=== PATIENT | male | born 1960 | race Caucasian/White ===

== ENCOUNTER 2022-04-24 16:46 | Inpatient (IN) ==
[2022-04-24] MEDS ORDERED: SODIUM CHLORIDE 0.9% 500 ML IV SCH (17:45)
[2022-04-24 17:49] LABS: Basophils % (auto) 1.1 %; Eosinophils % (auto) 2.1 %; Hematocrit (blood only) 45.6 % (40.1-51.0); Hemoglobin 15.3 g/dl (14.0-18.0); Immature Granulocytes # (auto) 0.14 K/uL (0.00-0.02); Immature Granulocytes % (auto) 1.5 %; Lymphocytes # (auto) 2.54 K/uL (1.2-3.4); Lymphocytes % (auto) 27.2 %; Mean Corpuscular Hemoglobin 29.4 pg (25.0-34.0); Mean Corpuscular Hgb Conc 33.6 g/dL (32.0-36.0); Mean Corpuscular Volume 87.5 fL (80.0-100.0); Mean Platelet Volume 9.6 fL (9.4-12.4); Monocytes # (auto) 0.69 K/uL (0.24-0.82); Monocytes % (auto) 7.4 %; Neutrophils # (auto) 5.66 K/uL (1.4-6.5); Neutrophils % (auto) 60.7 %; Platelet Count 280 K/uL (130-400); RDW Coefficient of Variation 12.5 % (11.5-14.5); RDW Standard Deviation 39.9 fL (36.4-46.3); Red Blood Count 5.21 M/uL (4.63-6.08); White Blood Count 9.33 K/ul (4.8-10.8)
--- NOTE | 2022-04-24 17:50 | Emergency Department Note ---
Impression & Plan Confusion, Hyperglycemia due to type 2 diabetes mellitus ED Provider Note Provider: Slim Duran MD DATE OF SERVICE: 04/24/2022 CHIEF COMPLAINT: Weak, high blood sugar HISTORY OF PRESENT ILLNESS: Patient is a 61-year-old gentleman history of type 2 diabetes, hypertension, cardiomyopathy presenting here today with his sister for elevated blood sugars and feeling a bit off. Over the last day or 2 he states his blood sugars been very high and his glucose sensing machine is picking out at high above 400. Patient states has not had fevers and has not fallen but is been unsteady. Sister states that he seemed quite weak and not himself and that she brought him in for evaluation. Patient states been taking his insulin took Levemir this morning and took 2 doses of Humalog 45 units twice this afternoon. He did eat some food. Blood sugar initially on arrival was 365. Patient denies nausea or abdominal pain. Denies significant swelling legs states maybe little swelling in his hands. Denies new numbness or weakness. States with sitting up or trying to walk he feels quite unsteady. Again no falls reported. Patient seen here 5 days ago for some chest discomfort and heartburn with no return of symptoms. REVIEW OF SYSTEMS: A total of 10 review of systems was obtained and negative except as stated above in the HPI. PAST MEDICAL HISTORY: As noted above MEDICATIONS: Reviewed home medication SOCIAL HISTORY: Lives alone and denies alcohol today. PHYSICAL EXAM: GENERAL: alert and oriented in no acute distress on stretcher slightly slow to respond. Head: normocephalic and atraumatic EYES: No discharge or icterus. Mild bilateral conjunctival injection. PERRL, EOMI. NECK: Trachea midline. Supple. ENT: Mucous membranes pink and moist. LUNGS: Airway patent. No retractions. Breath sounds clear with good air entry bilaterally. HEART: Regular rate and rhythm. No chest wall tenderness ABDOMEN: Soft and non-tender, without guarding or rebound. Left mid abdominal subcutaneous glucose sensor in place. SKIN: Acyanotic, warm, dry, without rashes EXTREMITIES: Without swelling, tenderness or deformity NEUROLOGICAL: No focal deficits. No aphasia. No facial droop or slurred speech. Normal strength and tone in the extremities. Sensation to gross touch normal. Able to stand but a bit unsteady on his feet. EK bpm sinus rhythm with premature supraventricular complexes. No PVC. No acute ST segment elevation or depression. QTc 422. CONTINUOUS CARDIAC MONITORING: was ordered and showed a heart rate of 70s-90s bpm in normal sinus rhythm with occasional premature supraventricular complexes Patient's laboratory studies and imaging reviewed. Differential includes Infection, dehydration, metabolic abnormality, hypo/hyperglycemia, electrolyte disturbance, anemia, hypoxia, cardiac sources, intracerebral event, toxicologic, neurologic, as well as other pathologies. IMPRESSION/MEDICAL DECISION MAKING: Patient with a history of cardiac disease as well as diabetes. Blood sugars been quite high. No infectious symptoms or fevers otherwise reported. Feeling a bit unsteady but no significant focal slurred speech or numbness or weakness reported by the patient or his sister. Patient has not fallen. Patient does have difficulty with sitting and standing and becomes fatigued and unsteady even trying to stand next to the bed. Blood sugars in the 300s now but given some IV fluid. Basic labs will be checked. CTs of the head completed although lower suspicion for CVA given his lack of focality. Blood work without significant anemia or leukocytosis. No fevers. No significant renal dysfunction or evidence of liver abnormality is noted. No a bdominal pain and doubt this represents pancreatitis or intra-abdominal pathology. Negative COVID. EKG and troponin complete without significant concerning findings to explain this. Blood glucose is trending down and given this just given IV fluid. Patient is a history of IV drug use in the past. CT and CTAs of the head and neck without significant findings noted. At this point discussed with the patient and his sister at bedside the reassuring findings. Blood sugar is improving and the patient does not appear to be in HHS or DKA. Discussed with the patient the use of any intoxicating substances which he adamantly denies at this time. Patient little more steady on his feet but still according to sister seems off. Given this discussed further observation here overnight versus close monitoring at home with his sister. Shared decision- making they felt more comfortable staying for observation. DIAGNOSIS: Confusion, hyperglycemia due to type 2 diabetes DISPOSITION: Hospitalist will evaluate Patient was agreeable with this plan. Past Med/Surg History Medical History Anxiety Congestive heart failure Depression Diabetes mellitus, type 2 H/O drug abuse Hepatitis C Hypertension Nonischemic cardiomyopathy "prior EF 30% per Epic records. echo 02/2015- EF 54%" Surgical History History of cardiac cath 03/2015 @ [facility], no stents follows with Dr. Monet History of colonoscopy History of tooth extraction History of umbilical hernia repair x2 History of wisdom tooth extraction Family History Mother Family history of diabetes mellitus Father Family history of diabetes mellitus Other No family history of adverse response to anesthesia Social History Smoking Status: Former smoker Second Hand Exposure: Yes ("everyone smokes"); Hx Alcohol Use: Yes Alcohol type: beer, wine and hard liquor Hx Substance Use: Yes Last Used Substance Other:: "a couple months ago used meth", last used IV drugs "years ago, a long time Preferred Language: Armenian Communication Ability: Effective Gate Supervisor Required: No Beliefs That Will Affect Care: None Current Living Situation: Family Current Living Situation Comment: Lives with sister Feels Safe at Home: Yes Assistive Devices: Glasses Allergies Allergies Allergy/AdvReac Type Severity Reaction Status Date / Time permethrin Allergy Intermediate swelling Verified 04/24/22 19:52 shrimp Allergy Intermediate SWELLS Verified 04/24/22 19:52 amoxicillin AdvReac Intermediate HIVES Verified 04/24/22 19:52 clavulanic acid AdvReac Intermediate HIVES Verified 04/24/22 19:52 Home Meds Home Medications Medication Instructions Recorded Confirmed ascorbic acid (vitamin C) 500 mg 1,000 mg PO DAILY 01/04/19 04/24/22 tablet (Vitamin C) furosemide 40 mg tablet See Rx Instructions .Route .COMPLEX 01/04/19 04/24/22 lisinopril 40 mg tablet 40 mg PO DAILY 01/04/19 04/24/22 nitroglycerin 0.4 mg sublingual 1 dose sublingual DIRECTED PRN 01/04/19 04/24/22 tablet Angina spironolactone 25 mg tablet 25 mg PO DAILY 01/04/19 04/24/22 bupropion HCl 150 mg 24 hr tablet, 150 mg PO DAILY 07/13/19 04/24/22 extended release insulin regular human 100 unit/mL 20 unit subcut BID 07/13/19 04/24/22 injection solution (Novolin R Regular U-100 Insulin) metoprolol succinate 50 mg 50 mg PO DAILY 07/13/19 04/24/22 tablet,extended release 24 hr sertraline 100 mg tablet 100 mg PO DAILY 07/13/19 04/24/22 empagliflozin 25 mg tablet 25 mg PO DAILY 08/14/20 04/24/22 (Jardiance) metformin 750 mg tablet,extended 1,500 mg PO DAILY 08/14/20 04/24/22 release 24 hr tamsulosin 0.4 mg capsule 0.4 mg PO DAILY 08/14/20 04/24/22 fluticasone propionate 220 2 puff inhalation BID 04/24/22 04/24/22 mcg/actuation HFA aerosol inhaler (Flovent HFA) insulin detemir U-100 100 unit/mL 65 unit subcut BID 04/24/22 04/24/22 (3 mL) subcutaneous pen (Levemir FlexTouch U-100 Insulin) Results & Data (ED) Vital Signs Vital Signs - 24 hr 04/24/22 16:47 04/24/22 17:34 04/24/22 17:42 Temperature 36.8 C Temperature Source Temporal Artery Scan Pulse Rate 81 87 Pulse Rate [Apical] 86 Respiratory Rate 16 18 18 Respiratory Effort / Characteristics Non-Labored Spontaneous Respiratory Depth Normal Respiratory Pattern Regular Blood Pressure 136/72 Blood Pressure [Right Arm] 156/83 H Blood Pressure Mean 93 Blood Pressure Mean [Right Arm] 107 Blood Pressure Position [Right Arm] Sitting Pulse Oximetry 94 95 95 Oxygen Delivery Method Room Air Room Air Sepsis Recent Fever Within 48 Hours No Sepsis New/Unexplained Change in Mental Status No Sepsis Action Taken by Nursing No Action Required 04/24/22 19:00 04/24/22 21:00 04/24/22 22:37 Temperature Temperature Source Pulse Rate Pulse Rate [Apical] 84 92 H 84 Respiratory Rate 18 20 18 Respiratory Effort / Characteristics Non-Labored Spontaneous Non-Labored Spontaneous Non-Labored Spontaneous Respiratory Depth Normal Normal Normal Respiratory Pattern Regular Regular Regular Blood Pressure Blood Pressure [Right Arm] 152/83 H 148/78 H 165/82 H Blood Pressure Mean Blood Pressure Mean [Right Arm] 106 101 109 Blood Pressure Position [Right Arm] Sitting Sitting Sitting Pulse Oximetry 94 95 93 Oxygen Delivery Method Room Air Room Air Room Air Sepsis Recent Fever Within 48 Hours Sepsis New/Unexplained Change in Mental Status Sepsis Action Taken by Nursing Laboratory Data Result diagrams: 04/24/22 17:22 04/24/22 18:43 Lab Results 04/24/22 04/24/22 04/24/22 Range/Units 16:51 17:22 17:22 WBC 9.33 (4.8-10.8) K/ul RBC 5.21 (4.63-6.08) M/uL Hgb 15.3 (14.0-18.0) g/dl Hct 45.6 (40.1-51.0) % MCV 87.5 (80.0-100.0) fL MCH 29.4 (25.0-34.0) pg MCHC 33.6 (32.0-36.0) g/dL RDW Std Deviation 39.9 (36.4-46.3) fL RDW Coeff of Marc 12.5 (11.5-14.5) % Plt Count 280 (130-400) K/uL MPV 9.6 (9.4-12.4) fL Immature Gran % (Auto) 1.5 % Neut % (Auto) 60.7 % Lymph % (Auto) 27.2 % Cotton % (Auto) 7.4 % Eos % (Auto) 2.1 % Baso % (Auto) 1.1 % Neut # (Auto) 5.66 (1.4-6.5) K/uL Lymph # (Auto) 2.54 (1.2-3.4) K/uL Cotton # (Auto) 0.69 (0.24-0.82) K/uL Eos # (Auto) 0.20 (0-0.50) K/uL Baso # (Auto) 0.10 (0-0.2) K/uL Immature Gran # (Auto) 0.14 H (0.00-0.02) K/uL Sodium TNP Potassium TNP Chloride 99 (98-107) mmol/L Carbon Dioxide 24 (21-32) mmol/L Anion Gap TNP BUN 27 H (6-23) mg/dl Creatinine 0.79 (0.6-1.4) mg/dl Est Cr Clr Drug Dosing 133.2 ml/min Est GFR ( Amer) 113.9 ml/min Est GFR (Non-Af Amer) 98.3 ml/min BUN/Creatinine Ratio 34.2 H (10-20) Glucose 318 H* (70-99(Fasting)) mg/dl POC Glucose 365 H* (70-99) mg/dl Calcium 8.8 (8.5-10.1) mg/dl Magnesium TNP Total Bilirubin 0.4 (0.2-1.0) mg/dl AST TNP ALT 22 (7-52) U/L Alkaline Phosphatase 74 (34-104) U/L Troponin I High Sens 8.5 (0-20) pg/ml Total Protein 6.7 (6.0-8.3) gm/dl Albumin 3.6 (3.4-5.0) gm/dl Globulin 3.1 (2.5-4.0) gm/dl Albumin/Globulin Ratio 1.2 (0.9-2) TSH (0.300-4.500) uIu/ml Free T4 (0.61-1.60) ng/dl SARS-CoV-2, RNA, NAAT (NEGATIVE) 04/24/22 04/24/22 04/24/22 Range/Units 17:50 18:43 18:43 WBC (4.8-10.8) K/ul RBC (4.63-6.08) M/uL Hgb (14.0-18.0) g/dl Hct (40.1-51.0) % MCV (80.0-100.0) fL MCH (25.0-34.0) pg MCHC (32.0-36.0) g/dL RDW Std Deviation (36.4-46.3) fL RDW Coeff of Marc (11.5-14.5) % Plt Count (130-400) K/uL MPV (9.4-12.4) fL Immature Gran % (Auto) % Neut % (Auto) % Lymph % (Auto) % Cotton % (Auto) % Eos % (Auto) % Baso % (Auto) % Neut # (Auto) (1.4-6.5) K/uL Lymph # (Auto) (1.2-3.4) K/uL Cotton # (Auto) (0.24-0.82) K/uL Eos # (Auto) (0-0.50) K/uL Baso # (Auto) (0-0.2) K/uL Immature Gran # (Auto) (0.00-0.02) K/uL Sodium 132 L Potassium 4.8 Chloride (98-107) mmol/L Carbon Dioxide (21-32) mmol/L Anion Gap BUN (6-23) mg/dl Creatinine (0.6-1.4) mg/dl Est Cr Clr Drug Dosing ml/min Est GFR ( Amer) ml/min Est GFR (Non-Af Amer) ml/min BUN/Creatinine Ratio (10-20) Glucose (70-99(Fasting)) mg/dl POC Glucose (70-99) mg/dl Calcium (8.5-10.1) mg/dl Magnesium 2.2 Total Bilirubin (0.2-1.0) mg/dl AST 16 ALT (7-52) U/L Alkaline Phosphatase (34-104) U/L Troponin I High Sens (0-20) pg/ml Total Protein (6.0-8.3) gm/dl Albumin (3.4-5.0) gm/dl Globulin (2.5-4.0) gm/dl Albumin/Globulin Ratio (0.9-2) TSH 5.115 H (0.300-4.500) uIu/ml Free T4 0.95 (0.61-1.60) ng/dl SARS-CoV-2, RNA, NAAT NEGATIVE (NEGATIVE) 04/24/22 Range/Units 20:16 WBC (4.8-10.8) K/ul RBC (4.63-6.08) M/uL Hgb (14.0-18.0) g/dl Hct (40.1-51.0) % MCV (80.0-100.0) fL MCH (25.0-34.0) pg MCHC (32.0-36.0) g/dL RDW Std Deviation (36.4-46.3) fL RDW Coeff of Marc (11.5-14.5) % Plt Count (130-400) K/uL MPV (9.4-12.4) fL Immature Gran % (Auto) % Neut % (Auto) % Lymph % (Auto) % Cotton % (Auto) % Eos % (Auto) % Baso % (Auto) % Neut # (Auto) (1.4-6.5) K/uL Lymph # (Auto) (1.2-3.4) K/uL Cotton # (Auto) (0.24-0.82) K/uL Eos # (Auto) (0-0.50) K/uL Baso # (Auto) (0-0.2) K/uL Immature Gran # (Auto) (0.00-0.02) K/uL Sodium Potassium Chloride (98-107) mmol/L Carbon Dioxide (21-32) mmol/L Anion Gap BUN (6-23) mg/dl Creatinine (0.6-1.4) mg/dl Est Cr Clr Drug Dosing ml/min Est GFR ( Amer) ml/min Est GFR (Non-Af Amer) ml/min BUN/Creatinine Ratio (10-20) Glucose (70-99(Fasting)) mg/dl POC Glucose 157 H (70-99) mg/dl Calcium (8.5-10.1) mg/dl Magnesium Total Bilirubin (0.2-1.0) mg/dl AST ALT (7-52) U/L Alkaline Phosphatase (34-104) U/L Troponin I High Sens (0-20) pg/ml Total Protein (6.0-8.3) gm/dl Albumin (3.4-5.0) gm/dl Globulin (2.5-4.0) gm/dl Albumin/Globulin Ratio (0.9-2) TSH (0.300-4.500) uIu/ml Free T4 (0.61-1.60) ng/dl SARS-CoV-2, RNA, NAAT (NEGATIVE) Administered Medications Discontinued Medications Sodium Chloride (Nss) 500 mls @ 999 mls/hr IV .Q31M MULU Stop: 04/24/22 18:15 Last Infusion: 04/24/22 19:12 Dose: 0 mls/hr Documented By: Admin: 04/24/22 18:33 Dose: 999 mls/hr Documented By: REGINA Ioversol (Optiray 320 125ml) 119 ml IV ONCE ONE Stop: 04/24/22 19:20 Last Admin: 04/24/22 19:23 Dose: 119 ml Documented By: [facility] Imaging Data Radiologist's Impression: Head CT 04/24/22 17:[address] OF THE BRAIN; CT ANGIOGRAM OF THE BRAIN; CT ANGIOGRAM OF THE NECK CLINICAL HISTORY: Headache and dizziness. Hyperglycemia. Generalized weakness. COMPARISON STUDY: CT of the brain dated 08/14/2020. TECHNIQUE: Unenhanced axial CT scan of the brain is performed. Subsequently, following the IV administration of 119 of Optiray 320, CT angiogram of the head and neck was performed from the aortic arch to the vertex. Images are reviewed in the axial, sagittal, and coronal planes. 3-D MIPS images are created and assessed. IV contrast was administered without complication. All measurements were calculated based on NASCET criteria. A dose lowering technique was utilized adhering to the principles of ALARA. CT DOSE: 1296.35 mGy.cm FINDINGS: Brain parenchyma: There is age-related involutional change noting minimal microangiopathic disease.. There is no hemorrhage, mass effect, or evidence of acute territorial ischemia by CT criteria. There is no evidence of enhancing mass lesion on the angiogram phase images. The ventricles, sulci, and cisterns are prominent secondary to involutional change. Sabillon-white matter differentiation is preserved. No extra-axial fluid collection is seen. Thoracic aorta: There is atherosclerotic calcification of the thoracic aorta. Visualized portions of the thoracic aorta are normal in caliber. The aortic arch demonstrates standard 3-vessel anatomy. Right carotid arterial system: The right common carotid artery is widely patent, as are the right internal and external carotid arteries. Left carotid arterial system: The left common carotid artery is widely patent, a s are the left internal and external carotid arteries. Vertebral arteries: The vertebral arteries are widely patent bilaterally noting left-sided dominance. Subclavian arteries: Widely patent bilaterally. Intracranial vasculature: There is atherosclerotic calcification of the cavernous carotid and vertebral arteries. The internal carotid arteries are patent at the skull base, as are the anterior and middle cerebral arteries bilaterally. The vertebrobasilar system and posterior cerebral arteries are widely patent. The left vertebral artery is dominant. The intracranial right vertebral artery is diminutive and terminates as the PICA. There is no aneurysm, high-grade stenosis, or focal vessel cut off seen throughout the intracranial circulation. Jugular veins: Patent bilaterally. Dural sinuses: Patent. Lung apices: There is a calcified granuloma in the left upper lobe. Upper lobe lung parenchyma is otherwise clear as imaged. Soft tissues: The visualized pharyngeal soft tissues are normal in appearance noting angiographic phase technique. The oropharyngeal airway appears widely patent. The salivary and thyroid glands are normal in appearance. No cervical lymphadenopathy is seen. Skeletal structures: There is postoperative change from left-sided craniotomy. No destructive calvarial lesion is seen. The cervical spine is within normal limits. Orbits: The bony orbits are intact. Orbital contents are normal as visualized. Sinuses and mastoids: There is trace mucosal thickening within the maxillary antra. The remaining paranasal sinuses are clear. The mastoid air cells are well pneumatized. IMPRESSION: 1. There is no hemorrhage, mass effect, or evidence of acute territorial ischemia by CT criteria. 2. Unremarkable CT angiogram of the brain. 3. Unremarkable CT angiogram of the neck. ACT 112: Negative or not required by law. Electronically signed by: Braulio Hopkins M.D. 04/24/2022 7:39 PM Chest X-Ray 04/24/22 17:42 SINGLE VIEW CHEST CLINICAL HISTORY: Generalized weakness. FINDINGS: 2 AP, portable, upright chest radiographs are compared to study dated 04/20/2022. Correlation is made with chest CT dated 02/22/2015. The cardiomediastinal silhouette is top normal for projection. The lungs and pleural spaces are clear noting bibasilar atelectasis. No pneumothorax is seen. There are chronic/healed right-sided rib fracture. IMPRESSION: No active disease in the chest. ACT 112: Negative or not required by law. Electronically signed by: Braulio Hopkins M.D. 04/24/2022 6:36 PM Head CTA 04/24/22 18:[address] OF THE BRAIN; CT ANGIOGRAM OF THE BRAIN; CT ANGIOGRAM OF THE NECK CLINICAL HISTORY: Headache and dizziness. Hyperglycemia. Generalized weakness. COMPARISON STUDY: CT of the brain dated 08/14/2020. TECHNIQUE: Unenhanced axial CT scan of the brain is performed. Subsequently, following the IV administration of 119 of Optiray 320, CT angiogram of the head and neck was performed from the aortic arch to the vertex. Images are reviewed in the axial, sagittal, and coronal planes. 3-D MIPS images are created and assessed. IV contrast was administered without complication. All measurements were calculated based on NASCET criteria. A dose lowering technique was utilized adhering to the principles of ALARA. CT DOSE: 1296.35 mGy.cm FINDINGS: Brain parenchyma: There is age-related involutional change noting minimal microangiopathic disease.. There is no hemorrhage, mass effect, or evidence of acute territorial ischemia by CT criteria. There is no evidence of enhancing mass lesion on the angiogram phase images. The ventricles, sulci, and cisterns are prominent secondary to involutional change. Sabillon-white matter differentiation is preserved. No extra-axial fluid collection is seen. Thoracic aorta: There is atherosclerotic calcification of the thoracic aorta. Visualized portions of the thoracic aorta are normal in caliber. The aortic arch demonstrates standard 3-vessel anatomy. Right carotid arterial system: The right common carotid artery is widely patent, as are the right internal and external carotid arteries. Left carotid arterial system: The left common carotid artery is widely patent, as are the left internal and external carotid arteries. Vertebral arteries: The vertebral arteries are widely patent bilaterally noting left-sided dominance. Subclavian arteries: Widely patent bilaterally. Intracranial vasculature: There is atherosclerotic calcification of the cavernous carotid and vertebral arteries. The internal carotid arteries are patent at the skull base, as are the anterior and middle cerebral arteries bilaterally. The vertebrobasilar system and posterior cerebral arteries are widely patent. The left vertebral artery is dominant. The intracranial right vertebral artery is diminutive and terminates as the PICA. There is no aneurysm, high-grade stenosis, or focal vessel cut off seen throughout the intracranial circulation. Jugular veins: Patent bilaterally. Dural sinuses: Patent. Lung apices: There is a calcified granuloma in the left upper lobe. Upper lobe lung parenchyma is otherwise clear as imaged. Soft tissues: The visualized pharyngeal soft tissues are normal in appearance noting angiographic phase technique. The oropharyngeal airway appears widely patent. The salivary and thyroid glands are normal in appearance. No cervical lymphadenopathy is seen. Skeletal structures: There is postoperative change from left-sided craniotomy. No destructive calvarial lesion is seen. The cervical spine is within normal limits. Orbits: The bony orbits are intact. Orbital contents are normal as visualized. Sinuses and mastoids: There is trace mucosal thickening within the maxillary antra. The remaining paranasal sinuses are clear. The mastoid air cells are well pneumatized. IMPRESSION: 1. There is no hemorrhage, mass effect, or evidence of acute territorial ischemia by CT criteria. 2. Unremarkable CT angiogram of the brain. 3. Unremarkable CT angiogram of the neck. ACT 112: Negative or not required by law. Electronically signed by: Braulio Hopkins M.D. 04/24/2022 7:39 PM Neck CTA 04/24/22 18:[address] OF THE BRAIN; CT ANGIOGRAM OF THE BRAIN; CT ANGIOGRAM OF THE NECK CLINICAL HISTORY: Headache and dizziness. Hyperglycemia. Generalized weakness. COMPARISON STUDY: CT of the brain dated 08/14/2020. TECHNIQUE: Unenhanced axial CT scan of the brain is performed. Subsequently, following the IV administration of 119 of Optiray 320, CT angiogram of the head and neck was performed from the aortic arch to the vertex. Images are reviewed in the axial, sagittal, and coronal planes. 3-D MIPS images are created and assessed. IV contrast was administered without complication. All measurements were calculated based on NASCET criteria. A dose lowering technique was utilized adhering to the principles of ALARA. CT DOSE: 1296.35 mGy.cm FINDINGS: Brain parenchyma: There is age-related involutional change noting minimal microangiopathic disease.. There is no hemorrhage, mass effect, or evidence of acute territorial ischemia by CT criteria. There is no evidence of enhancing mass lesion on the angiogram phase images. The ventricles, sulci, and cisterns are prominent secondary to involutional change. Sabillon-white matter differentiation is preserved. No extra-axial fluid collection is seen. Thoracic aorta: There is atherosclerotic calcification of the thoracic aorta. Visualized portions of the thoracic aorta are normal in caliber. The aortic arch demonstrates standard 3-vessel anatomy. Right carotid arterial system: The right common carotid artery is widely patent, as are the right internal and external carotid arteries. Left carotid arterial system: The left common carotid artery is widely patent, as are the left internal and external carotid arteries. Vertebral arteries: The vertebral arteries are widely patent bilaterally noting left-sided dominance. Subclavian arteries: Widely patent bilaterally. Intracranial vasculature: There is atherosclerotic calcification of the cavernous carotid and vertebral arteries. The internal carotid arteries are patent at the skull base, as are the anterior and middle cerebral arteries bilaterally. The vertebrobasilar system and posterior cerebral arteries are widely patent. The left vertebral artery is dominant. The intracranial right vertebral artery is diminutive and terminates as the PICA. There is no aneurysm, high-grade stenosis, or focal vessel cut off seen throughout the intracranial circulation. Jugular veins: Patent bilaterally. Dural sinuses: Patent. Lung apices: There is a calcified granuloma in the left upper lobe. Upper lobe lung parenchyma is otherwise clear as imaged. Soft tissues: The visualized pharyngeal soft tissues are normal in appearance noting angiographic phase technique. The oropharyngeal airway appears widely patent. The salivary and thyroid glands are normal in appearance. No cervical lymphadenopathy is seen. Skeletal structures: There is postoperative change from left-sided craniotomy. No destructive calvarial lesion is seen. The cervical spine is within normal limits. Orbits: The bony orbits are intact. Orbital contents are normal as visualized. Sinuses and mastoids: There is trace mucosal thickening within the maxillary antra. The remaining paranasal sinuses are clear. The mastoid air cells are well pneumatized. IMPRESSION: 1. There is no hemorrhage, mass effect, or evidence of acute territorial ischemia by CT criteria. 2. Unremarkable CT angiogram of the brain. 3. Unremarkable CT angiogram of the neck. ACT 112: Negative or not required by law. Electronically signed by: Braulio Hopkins M.D. 04/24/2022 7:39 PM Discharge Plan Visit Data Chief Complaint: Illness Stated Complaint: SUGAR VERY HIGH. SHOT NOT BRINGING IT DOWN. DIZZY ED Provider: Slim Duran Discharge Problem: Confusion, Hyperglycemia due to type 2 diabetes mellitus Forms Stand Alone Forms: [facility] [employer] Prescriptions Prescriptions: No Action furosemide 40 mg Tablet See Rx Instructions .ROUTE .COMPLEX Rx Instructions: 40 mg orally; TAKES 80 MG QAM, THEN 40 MG QPM. spironolactone 25 mg Tablet 25 mg PO DAILY ascorbic acid (vitamin C) [Vitamin C] 500 mg Tablet 1,000 mg PO DAILY nitroglycerin 0.4 mg Tablet, Sublingual 1 dose sublingual DIRECTED PRN (Reason: Angina) lisinopril 40 mg Tablet 40 mg PO DAILY metoprolol succinate 50 mg tablet extended release 24 hr 50 mg PO DAILY sertraline 100 mg tablet 100 mg PO DAILY Novolin R Regular U-100 Insuln 100 unit/mL solution 20 unit subcut BID bupropion HCl 150 mg tablet extended release 24 hr 150 mg PO DAILY tamsulosin 0.4 mg capsule 0.4 mg PO DAILY Jardiance 25 mg tablet 25 mg PO DAILY metformin 750 mg tablet extended release 24 hr 1,500 mg PO DAILY Rx Instructions: 2 tablet dose fluticasone propionate [Flovent HFA] 220 mcg/actuation HFA aerosol inhaler 2 puff INHALATION BID Levemir FlexTouch U-100 Insuln 100 unit/mL (3 mL) insulin pen 65 unit SUBCUT BID Referrals Referrals: Willam Fofana, [Primary Care Provider] -
[2022-04-24 18:10] LABS: Alanine Aminotransferase 22 U/L (7-52); Albumin Globulin Ratio 1.2 (0.9-2); Albumin Level 3.6 gm/dl (3.4-5.0); Alkaline Phosphatase 74 U/L (34-104); BUN Creatinine Ratio 34.2 (10-20); Bilirubin,Total 0.4 mg/dl (0.2-1.0); Blood Urea Nitrogen 27 mg/dl (6-23); Calcium 8.8 mg/dl (8.5-10.1); Carbon Dioxide 24 mmol/L (21-32); Chloride 99 mmol/L (98-107); Creatinine Clr Calc Pharmacy 133.2 ml/min; Est GFR (African American) 113.9 ml/min; Est GFR (Non-African American) 98.3 ml/min; Globulin 3.1 gm/dl (2.5-4.0); Glucose 318 mg/dl (70-99(Fasting)); Total Protein 6.7 gm/dl (6.0-8.3)
[2022-04-24 18:18] LABS: Troponin I High Sensitivity 8.5 pg/ml (0-20)
--- NOTE | 2022-04-24 18:37 | XRay Report ---
SINGLE VIEW CHEST CLINICAL HISTORY: Generalized weakness. FINDINGS: 2 AP, portable, upright chest radiographs are compared to study dated 04/20/2022. Correlatio n is made with chest CT dated 02/22/2015. The cardiomediastinal silhouette is top normal for projectio n. The lungs and pleural spaces are clear noting bibasilar atelectasis. No pneumothorax is seen. Ther e are chronic/healed right-sided rib fracture. IMPRESSION: No active disease in the chest. ACT 112: Negative or not required by law. Electronically signed by: Braulio Hopkins M.D. 04/24/2022 6:36 PM
[2022-04-24] MEDS ORDERED: OPTIRAY 320 125ml IV ONE (19:19)
--- NOTE | 2022-04-24 19:42 | CT Scan Report ---
UNENHANCED CT OF THE BRAIN; CT ANGIOGRAM OF THE BRAIN; CT ANGIOGRAM OF THE NECK CLINICAL HISTORY: Headache and dizziness. Hyperglycemia. Generalized weakness. COMPARISON STUDY: CT of the brain dated 08/14/2020. TECHNIQUE: Unenhanced axial CT scan of the brain is performed. Subsequently, following the IV adminis tration of 119 of [address] 320, CT angiogram of the head and neck was performed from the aortic arch t o the vertex. Images are reviewed in the axial, sagittal, and coronal planes. 3-D MIPS images are cre ated and assessed. IV contrast was administered without complication. All measurements were calculate d based on NASCET criteria. A dose lowering technique was utilized adhering to the principles of ALA RA. CT DOSE: 1296.35 mGy.cm FINDINGS: Brain parenchyma: There is age-related involutional change noting minimal microangiopathic disease.. There is no hemorrhage, mass effect, or evidence of acute territorial ischemia by CT criteria. There is no evidence of enhancing mass lesion on the angiogram phase images. The ventricles, sulci, and cis terns are prominent secondary to involutional change. Sabillon-white matter differentiation is preserved. No extra-axial fluid collection is seen. Thoracic aorta: There is atherosclerotic calcification of the thoracic aorta. Visualized portions of the thoracic aorta are normal in caliber. The aortic arch demonstrates standard 3-vessel anatomy. Right carotid arterial system: The right common carotid artery is widely patent, as are the right int ernal and external carotid arteries. Left carotid arterial system: The left common carotid artery is widely patent, as are the left internet e commerce specialist al and external carotid arteries. Vertebral arteries: The vertebral arteries are widely patent bilaterally noting left-sided dominance. Subclavian arteries: Widely patent bilaterally. Intracranial vasculature: There is atherosclerotic calcification of the cavernous carotid and vertebr al arteries. The internal carotid arteries are patent at the skull base, as are the anterior and midd le cerebral arteries bilaterally. The vertebrobasilar system and posterior cerebral arteries are wide ly patent. The left vertebral artery is dominant. The intracranial right vertebral artery is diminuti ve and terminates as the PICA. There is no aneurysm, high-grade stenosis, or focal vessel cut off see n throughout the intracranial circulation. Jugular veins: Patent bilaterally. Dural sinuses: Patent. Lung apices: There is a calcified granuloma in the left upper lobe. Upper lobe lung parenchyma is oth erwise clear as imaged. Soft tissues: The visualized pharyngeal soft tissues are normal in appearance noting angiographic pha se technique. The oropharyngeal airway appears widely patent. The salivary and thyroid glands are nor mal in appearance. No cervical lymphadenopathy is seen. Skeletal structures: There is postoperative change from left-sided craniotomy. No destructive calvari al lesion is seen. The cervical spine is within normal limits. Orbits: The bony orbits are intact. Orbital contents are normal as visualized. Sinuses and mastoids: There is trace mucosal thickening within the maxillary antra. The remaining par anasal sinuses are clear. The mastoid air cells are well pneumatized. IMPRESSION: 1. There is no hemorrhage, mass effect, or evidence of acute territorial ischemia by CT criteria. 2. Unremarkable CT angiogram of the brain. 3. Unremarkable CT angiogram of the neck. ACT 112: Negative or not required by law. Electronically signed by: Braulio Hopkins M.D. 04/24/2022 7:39 PM
[2022-04-24 19:58] LABS: Magnesium 2.2 mg/dl (1.7-2.4); Potassium 4.8 mmol/L (3.5-5.1)
[2022-04-24 20:08] LABS: Thyroid Stimulating Hormone 5.115 uIu/ml (0.300-4.500)
[2022-04-24 20:41] LABS: T4 Free Thyroxine 0.95 ng/dl (0.61-1.60)
[2022-04-24] MEDS ORDERED: ACETAMINOPHEN 325 MG TAB PO PRN (23:34)
[2022-04-24] MEDS ORDERED: ONDANSETRON INJ 2 MG/ML 2 ML VIAL IV PRN (23:34)
[2022-04-24] MEDS ORDERED: NITROGLYCERIN SL 0.4 MG/TAB TAB SL PRN (23:34)
--- NOTE | 2022-04-24 23:45 | History and Physical Report ---
DATE OF ADMISSION: 04/24/2022. CHIEF COMPLAINT: Hyperglycemia, some imbalance, questionable confusion. 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 The patient's sugars were running high at home, in 400s. He took his Levemir and sliding scale, but still they were running high. In the ER when he came in, sugars were in the 300 range, later they came down to 150s. The patient is somewhat shaky, but alert and oriented. Answers questions appropriately. He has a history of drug abuse in the past, but he says he does not do drugs anymore and also not drinking alcohol regularly. Denies any fever or chills. No headache. He says his right eye vision is not that great. Denies any neck pain, no cough, no runny nose, no sore throat. Appetite is okay. Denies any chest pain or shortness of breath, no nausea, no abdominal pain. Normal bowel and bladder movements. ALLERGIES: PERMETHRIN, AMOXICILLIN, CLAVULANIC ACID. PAST MEDICAL HISTORY: As mentioned above. PAST SURGICAL HISTORY: Colonoscopy, drainage of the right eye fluid, EGD, EGD with endoscopic ultrasound, injection of the eye drug on the right side, scalp laceration repair after a bad injury. MEDICATIONS: The patient is on vitamin C 1000 mg p.o. daily, bupropion 150 mg p.o. daily, Jardiance 25 mg p.o. daily, Flovent HFA two puffs inhalation b.i.d., Lasix 80 mg in the a.m. and 40 mg in the p.m., Levemir 65 units subcutaneous b.i.d., Novolin R 20 units subcutaneous b.i.d., lisinopril 40 mg p.o. daily, metformin 1500 mg p.o. daily, metoprolol succinate 50 mg p.o. daily, nitroglycerin 0.4 sublingual p.r.n., sertraline 100 mg p.o. daily, spironolactone 25 mg p.o. daily, Flomax 0.4 mg p.o. daily. FAMILY HISTORY: Significant for father had diabetes, hypertension; mother has hypertension, diabetes; paternal grandfather has heart disorder. SOCIAL HISTORY: Single, no smoking. Alcohol, rarely. History of IV cocaine and methamphetamines in the past. Says he has not done drugs recently, but in his Epic he did meth on 10/15/2021. REVIEW OF SYSTEMS: As per HPI. Rest of the review of systems is negative. PHYSICAL EXAMINATION: GENERAL: The patient is obese, not in acute distress, somewhat shaky. VITAL SIGNS: Temperature 36.8, pulse 92, respiratory rate 20, blood pressure 148/78, oxygen 95% on room air. HEENT: Pupils are equal. Right eye pupil is sluggish to react to light. Oral mucosa moist. NECK: No JVD, no neck masses. CARDIOVASCULAR: S1 and S2 heard. Regular rate and rhythm. No murmur, no gallop. RESPIRATORY SYSTEM: Normal AP diameter. No accessory muscle use. No wheezing or crackles. ABDOMEN: Soft, bowel sounds present, nontender, no distention. CENTRAL NERVOUS SYSTEM: Alert and oriented x3. No facial droop. Speech is clear, somewhat shaky. Power 5/5 in all extremities. No pronator drift. Coordination of movements normal. Sensation is intact. EXTREMITIES: No edema, no erythema. LABORATORY DATA: WBC 9.3, hemoglobin 15.3, hematocrit 45.6, platelets 280. Sodium 132, potassium 4.8, chloride 99, CO2 of 24, BUN 27, creatinine 0.7, serum glucose 318, calcium 8.8, magnesium 2.2, total bilirubin 0.4, AST 16, ALT 22, alkaline phosphatase 74. Troponin I high sensitivity is 8.5. TSH 5.1, free T4 of 0.9. SARS-CoV-2 rapid test negative. IMAGING DATA: CTA of the head and neck, no acute findings. CT of the head, no acute findings. Chest x-ray, no active disease in the chest. EKG: Sinus rhythm with PVC at a rate of 80, nonspecific ST abnormalities. ASSESSMENT AND PLAN: This is a 61-year-old male who presents with questionable confusion and ambulatory dysfunction. 1. Questionable confusion and ambulatory dysfunction: The patient has history of toxoplasmosis in the past. Initial workup with CT of the head and CTA head and neck is negative. The patient has risk factors of obesity, diabetes, high blood pressure. Will do MRI scan. Monitor in the tele floor. No obvious signs of infections noted. Will follow the urine culture and blood cultures.Will follow ammonia levels. 2. Hyperglycemia, history of diabetes: Continue his home Levemir and insulin sliding scale. Follow the blood sugars, follow HbA1c levels. Hold metformin and Jardiance. 3. History of hypertension: Continue lisinopril, metoprolol, and diuretics- spironolactone and Lasix. Monitor the blood pressure. 4. History of nonischemic cardiomyopathy, resolved: Currently on diuretics. Will be continued. The patient is getting fluids. His echo had normal EF in 2019. 5. History of IV drug abuse in the past: Currently declining any drug use . Will follow the urine drug screen. 6. History of hepatitis C: Needs followup. 7. Depression: Continue his bupropion and sertraline. 8. Benign prostatic hypertrophy: Continue his Flomax. 9. History of nonobstructive coronary artery disease: On beta kemal. 10. Deep venous thrombosis prophylaxis: Lovenox. DISPOSITION: Closely monitor in the med tele. Level 1 full code. Expect to discharge home and follow with family doctor. Job ID: [id number] MTDD
[2022-04-25] MEDS: SODIUM CHLORIDE 0.45 % 1,000 ML IV SCH ×2 (00:20→07:55)
[2022-04-25] MEDS: ENOXAPARIN INJ 40 MG/0.4 ML SYR SQ SCH ×3 (00:27→23:26)
[2022-04-25 05:50] LABS: Eosinophils # (auto) 0.29 K/uL (0-0.50); Eosinophils % (auto) 2.8 %; Hematocrit (blood only) 44.2 % (40.1-51.0); Hemoglobin 15.1 g/dl (14.0-18.0); Immature Granulocytes # (auto) 0.12 K/uL (0.00-0.02); Immature Granulocytes % (auto) 1.2 %; Lymphocytes # (auto) 3.41 K/uL (1.2-3.4); Lymphocytes % (auto) 33.2 %; Mean Corpuscular Hemoglobin 29.9 pg (25.0-34.0); Mean Corpuscular Hgb Conc 34.2 g/dL (32.0-36.0); Mean Corpuscular Volume 87.5 fL (80.0-100.0); Monocytes # (auto) 0.73 K/uL (0.24-0.82); Monocytes % (auto) 7.1 %; Neutrophils # (auto) 5.62 K/uL (1.4-6.5); Neutrophils % (auto) 54.7 %; Platelet Count 274 K/uL (130-400); RDW Coefficient of Variation 12.7 % (11.5-14.5); RDW Standard Deviation 40.3 fL (36.4-46.3); Red Blood Count 5.05 M/uL (4.63-6.08); White Blood Count 10.27 K/ul (4.8-10.8)
[2022-04-25 06:02] LABS: Appearance Urine Clear (Clear); Bilirubin Urine Negative (Negative); Blood Urine Negative (Negative); Color Urine Yellow; Glucose Urine UA 3+ (Negative); Ketones Urine Negative (Negative); Leukocyte Esterase Urine Negative (Negative); Nitrite Urine Negative (Negative); Protein Urine Negative (Negative); Urobilinogen Urine Negative (Negative)
[2022-04-25 06:38] LABS: BUN Creatinine Ratio 27.1 (10-20); Calcium 8.4 mg/dl (8.5-10.1); Creatinine Clr Calc Pharmacy 147.4 ml/min; Est GFR (African American) 119.7 ml/min; Est GFR (Non-African American) 103.3 ml/min; Magnesium 2.1 mg/dl (1.7-2.4); Potassium 4.6 mmol/L (3.5-5.1)
[2022-04-25 07:00] LABS: Amphetamines+Metham, Urine Pos (Neg); Barbiturates, Urine Neg (Neg); Benzodiazepine, Urine Neg (Neg); Cocaine, Urine Neg (Neg); MDMA (Ecstacy), Urine Pos (Neg); Methadone, Urine Neg (Neg); Opiate, Urine Neg (Neg); Phencyclidine, Urine Neg (Neg)
[2022-04-25 07:06] LABS: Base Excess ABG 1.2 mEq/L (-9-1.8); HCO3 ABG 26 mmol/L (19-24); PCO2 ABG 41 mmHg (35-46); PO2 ABG 51 mmHg (80-95); pH ABG 7.41 (7.35-7.45)
[2022-04-25 07:14] LABS: Allen Test Pos (Pos)
[2022-04-25 07:41] LABS: Estimated Average Glucose 223 mg/dl; Hemoglobin A1C 9.4 % (4.5-5.6)
[2022-04-25] MEDS: SERTRALINE HCL 100 MG TABLET PO SCH (07:52)
[2022-04-25] MEDS: METOPROLOL SUCC 50MG EXT REL TAB PO SCH (07:52)
[2022-04-25] MEDS: lisinopril 40 MG TAB PO SCH (07:52)
[2022-04-25] MEDS: ASCORBIC ACID 500 MG TAB PO SCH (07:52)
[2022-04-25] MEDS: buPROPion XL 150 MG TABCR PO SCH (07:52)
[2022-04-25] MEDS: ASPIRIN 81 MG ECTAB PO SCH (07:53)
[2022-04-25] MEDS: FLUTICASONE FUROATE 200MCG 14 PUFFS/INHALER INH SCH (07:53)
[2022-04-25] MEDS: TAMSULOSIN HCL 0.4 MG CAP PO SCH (07:53)
[2022-04-25] MEDS: SPIRONOLACTONE 25 MG TAB PO SCH (07:53)
[2022-04-25] MEDS: INSULIN DETEMIR FLEXPEN/FLEX TOUCH 100 UNITS/ML 3ML SQ SCH ×2 (07:57→20:59)
[2022-04-25] MEDS: INSULIN ASPART PER UNIT SC SCH ×4 (07:57→20:57)
[2022-04-25] MEDS ORDERED: FLUTICASONE HFA 220 MCG INHALER INH SCH (09:00)
--- NOTE | 2022-04-25 11:11 | Magnetic Resonance Report ---
Brain MRI WITHOUT CONTRAST HISTORY: confusion, ambulatory dysfunction TECHNIQUE: Multiplanar multisequence MRI of the brain was performed without the use of contrast. Axia l DWI, axial ADC, and sagittal T1 sequences were obtained. The patient was unable to complete the exa mination. COMPARISON STUDY: Head CT 04/24/2022. FINDINGS: No areas restricted diffusion to suggest acute infarction. Evidence for prior left posterio r craniotomy. No definite mass, hematoma, midline shift on this technically limited study. The midlin e structures appear intact. IMPRESSION: The study is limited from a technical standpoint as the patient was unable to complete the entire exa mination. No evidence for acute infarct. ACT 112: Negative or not required by law. Electronically signed by: Nehemiah Borges M.D. 04/25/2022 11:10 AM
--- NOTE | 2022-04-25 11:11 | Electrocardiogram Report ---
Test Reason : Blood Pressure : / mmHG Vent. Rate : 080 BPM Atrial Rate : 080 BPM P-R Int : 204 ms QRS Dur : 078 ms QT Int : 366 ms P-R-T Axes : 067 084 078 degrees QTc Int : 422 ms Sinus rhythm with Premature supraventricular complexes Low voltage QRS Nonspecific ST abnormality Abnormal ECG When compared with ECG of 20-APR-2022 07:17, Premature supraventricular complexes are now Present Confirmed by Porter Lopez ([id number]) on 04/25/2022 11:11:38 AM Referred By: REFERRED SELF Confirmed By:Porter Lopez
--- NOTE | 2022-04-25 12:40 | Consultation Report ---
DATE OF SERVICE: 04/25/2022. REASON FOR CONSULTATION: Confusion and unsteadiness. 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 Blood sugars at home are running in the 400s. The patient took insulin and sliding scale, but blood sugar still ran high. The patient indicates that he gets confused when his blood sugar is either high and more so very low. The patient indicates he felt mildly generally weak and unsteady, although notes some mild ongoing unsteadiness. He did not have a headache. Noted no change in vision, double vision, slurred speech, unilateral weakness or numbness. There is no neck pain. He has not recently been ill. No fevers, chills, sweats. He was in the ER 4 days ago due to chest pain. There was no chest pain with this event. PAST MEDICAL HISTORY: As above. PAST SURGICAL HISTORY: Colonoscopy, I presume a vitrectomy, EGD, injection eye drop on the right side, scalp laceration repair after an injury. MEDICATIONS: Vitamin C, bupropion, Jardiance, Flovent, Lasix, Levemir, Novolin, lisinopril, metformin, metoprolol, nitroglycerin sublingual, sertraline, spironolactone, and Flomax. The patient denies that any of his medicines are new or changed in dose or that there has been any withdrawal or that he has been making medication errors. FAMILY HISTORY: No family history of stroke. Father had diabetes, hypertension. Mother, hypertension, diabetes. Paternal grandfather, heart disease. SOCIAL HISTORY: Nonsmoker. Drinks alcohol regularly. History of reported heroin and IV cocaine use in the past, although the patient indicated that he has not recently been using meth. He used meth several days ago. REVIEW OF SYSTEMS: As above. CT of the head, no acute findings. MRI of the brain limited but no acute abnormalities. No diffusion weighted abnormality suggestive of a new infarct. CTA of the head and neck were unremarkable, without any high-grade stenosis. EKG was sinus rhythm. Lab data was notable for sodium of 132. Glucose of 318, calcium of 8.8, normal ammonia, TSH 5.1. SARS-CoV-2 negative. Blood gas 741, 41, O2 51, 84 O2 sat on room air. I do not know if this is a venous study or arterial. As the Clyde test was performed, I suspect it was arterial. Blood cultures are pending. ALLERGIES: PROMETHAZINE, SHRIMP, AMOXICILLIN AND CLAVULANIC ACID. PHYSICAL EXAMINATION: VITAL SIGNS: BP 145/83, 97 pulse, respiration 18, temp 36.9, O2 sat 93 on room air. NEUROLOGIC: The patient is awake and alert. Speech and language are normal. Affect appropriate. He is oriented x3. There is no right/left confusion. Normal naming, repetition and 3-step commands. Memory is 0/3 at 3 minutes. His neck is supple. Pupils are equal. I could not reliably visualize the optic nerves. [place]wood were inconsistent in the right eye. They were normal in the left. There is normal motility, facial sensation, facial symmetry. Tongue is midline. Speech is nondysarthric. Motor is 5/5, no drift. Normal rapid alternating movements. Hylvmq-vu-ajbc and dnbd-ov-ayog are normal. Gait was not tested. Reflexes symmetrical. Absent ankle jerks, downgoing toes. Vibration is present at the ankles and there is an ankle level to temperature. No axet-ch-pirq sensory loss is noted. No flap is noted. No resting tremor or cogwheel rigidity. IMPRESSION AND PLAN: This patient sounds as if he may have been mildly encephalopathic related to hyperglycemia. This is not known to this examiner whether that blood gas was venous or arterial. He is currently saturating at 93% at room air and there is no respiratory distress. I did not ambulate the patient because of his size and gait dysfunction, but I see nothing other than evidence of a polyneuropathy. This in general could make him chronically mildly unstable. I would repeat thyroid function as appropriate. It is difficult to say that there is any ongoing memory loss, although his short-term memory seems currently impaired, but that could be related to the current illness. I will follow with you to ambulate with him tomorrow to see if I see anything concerning, lateralizing or definitive in terms of diagnosis of gait dysfunction. Job ID: [id number] MTDD
--- NOTE | 2022-04-25 13:10 | Hospitalist Progress Note ---
Date of Service April 25, 2022 Assessment & Plan (1) Hyperglycemia due to type 2 diabetes mellitus: Plan: Uncontrolled diabetes at baseline, poor nutrition-may benefit from education about this and diabetes in general. He is obese and abuses drugs. He appears to have underlying depression that is not being adeqately addressed despite sertraline. Would benefit from additional talk therapy as outpatient and addiction counseling. Cont with current basal bolus insulin. Complications including polyneuropathy are known. (2) Dysequilibrium: Plan: Complex diabetic patient with a h/o NICM with preserved EF, on appropriate medications. Evidence of complications of diabetes including polyneuropathy. Has a h/o substance abuse and has been recently using. Also has a h/o recurrent toxoplasma causing chorioretinitis, recently seeing ophthalmology in March. No use of tobacco or alcohol reported and no use of other street drugs. No evidence of acute stroke or other acute intracranial event on brain MRI. Unremarkable CT head and neck. CXR reveals no active disease. Appreciate neurology input. Will also get PT and OT to evaluate him with his unsteady gait. (3) H/O drug abuse: Plan: Addiction counseling should be sought as outpatient. (4) Polyneuropathy: Plan: Continue with regular foot care and diabetic eye screening at least annually. Work with outpatient PCP to get the glucose better under control. (5) Depression: Plan: chronic, appears poorly controlled as patient is seeking to use crystal meth again and voices that he feels depressed. Cont sertraline and bupropion. Close outpatient followup for titration as needed. Would benefit from outpatient addiction counseling, also. (6) DVT prophylaxis: Plan: Lovenox Full Code Dispo-to home when feeling better and glucose is reliably controlled. [facility] and Anticipated Discharge Date Admission Date: April 24, 2022 Subjective 61-year-old diabetic with uncontrolled type 2 diabetes presents for hyperglycemia. He reports feeling poorly most of the time and states his sister had him come to the ER because of his elevated blood sugars. He reports some issues with his glucose monitor and was working with the company to straighten this out. He reports intermittent noncompliance with insulin and is on basal bolus insulin at home. He reports some disequilibrium and "feeling a bit off" and this has been going on for weeks. He denies any dizziness, chest pain, stomach issues, diarrhea, shortness of breath or other symptoms at this time. He does report urinating frequently and having low energy. He does use crystal meth intermittently and used to use it daily. Has a history of heroin use per records. Denies any other street drug use, alcohol use or tobacco use. He is not sure if he feels much better today but is not feeling any worse. There is opportunity to improve his nutrition; he does not cook much and does not eat vegetables or fresh fruit often. Relies mostly on easy to cook foods such as mac & cheese, chicken sausages or frequents fast food restaurants. Occasionally has juice but mostly drinks water. Review of Systems Review of Systems: All systems were reviewed and negative except as indicated in subjective above. Physical Exam Physical Exam: CONSTITUTIONAL: obese, vitals as above, generally well- appearing, NAD EYES: pupils are round and equal bilaterally, normal conjunctivae, no scleral icterus ENT: external ear and nose normal, MMM NECK: trachea midline, RESPIRATORY: clear to auscultation bilaterally, no crackles, rales or wheezes, normal respiratory effort CARDIOVASCULAR: regular rate and rhythm, S1 and 2 heard without murmurs, gallops or rubs, no JVD, no peripheral edema CHEST: inspection of chest was normal GASTROINTESTINAL: soft, nontender, ND, no guarding MUSCULOSKELETAL: strength 5/5 throughout, head is normocephalic and atraumatic SKIN: warm and dry NEUROLOGIC: CN 2-12 grossly intact, no sensory deficit, normal cognition, normal speech, no tremor, no gross focal deficit. PSYCHIATRIC: alert cooperative and oriented to person, place and time. Euthymic mood, makes good eye contact, language grossly intact, recent and remote memory grossly intact. Results & Data Results & Data ([facility]) Vital Signs (Past 12 Hours) Vital Signs Temp Pulse Resp BP Pulse Ox O2 Del Method 04/25/22 11:59 36.6 C 84 18 127/80 95 Room Air 04/25/22 08:17 36.9 C 97 H 18 145/83 H 93 Room Air 04/25/22 03:00 36.9 C 101 H 20 150/78 H 95 Laboratory Results Short CBC 04/24/22 04/25/22 Range/Units 17:22 05:23 WBC 9.33 10.27 (4.8-10.8) K/ul Hgb 15.3 15.1 (14.0-18.0) g/dl Hct 45.6 44.2 (40.1-51.0) % Plt Count 280 274 (130-400) K/uL BMP 04/24/22 04/24/22 04/25/22 17:22 18:43 05:23 Sodium TNP 132 L 133 L Potassium TNP 4.8 4.6 Chloride 99 105 Carbon Dioxide 24 24 BUN 27 H 19 Creatinine 0.79 0.70 Glucose 318 H* 241 H Calcium 8.8 8.4 L Liver Function 04/24/22 04/24/22 Range/Units 17:22 18:43 Total Bilirubin 0.4 (0.2-1.0) mg/dl AST TNP 16 ALT 22 (7-52) U/L Alkaline Phosphatase 74 (34-104) U/L Albumin 3.6 (3.4-5.0) gm/dl Urine 04/25/22 Range/Units 05:30 Urine Color Yellow Urine Appearance Clear (Clear) Urine pH 5.0 (4.5-7.5) Ur Specific [place] 1.020 (1.000-1.030) Urine Protein Negative (Negative) Urine Glucose (UA) 3+ H (Negative) Diagnostic Findings Brain MRI 04/25/22 23:34 Brain MRI WITHOUT CONTRAST HISTORY: confusion, ambulatory dysfunction TECHNIQUE: Multiplanar multisequence MRI of the brain was performed without the use of contrast. Axial DWI, axial ADC, and sagittal T1 sequences were obtained. The patient was unable to complete the examination. COMPARISON STUDY: Head CT 04/24/2022. FINDINGS: No areas restricted diffusion to suggest acute infarction. Evidence for prior left posterior craniotomy. No definite mass, hematoma, midline shift on this technically limited study. The midline structures appear intact. IMPRESSION: The study is limited from a technical standpoint as the patient was unable to complete the entire examination. No evidence for acute infarct. ACT 112: Negative or not required by law. Electronically signed by: Nehemiah Borges M.D. 04/25/2022 11:10 AM Medications Administered Current Inpatient Medications Acetaminophen (Acetaminophen 325 Mg Tab) 650 mg PO Q4H PRN PRN Reason: Pain or Fever Stop: 05/24/22 23:33 Ascorbic Acid (Ascorbic Acid 500 Mg Tab) 1,000 mg PO DAILY [facility] Stop: 05/25/22 08:59 Last Admin: 04/25/22 07:52 Dose: 1,000 mg Aspirin (Aspirin 81 Mg Ectab) 81 mg PO DAILY MULU Stop: 05/25/22 08:59 Last Admin: 04/25/22 07:53 Dose: 81 mg Bupropion HCl (Bupropion Xl 150 Mg Tabcr) 150 mg PO DAILY [facility] Stop: 05/25/22 08:59 Last Admin: 04/25/22 07:52 Dose: 150 mg Enoxaparin Sodium (Enoxaparin Inj 40 Mg/0.4 Ml Syr) 40 mg SQ Q12H [facility]U Stop: 05/25/22 00:00 Last Admin: 04/25/22 12:03 Dose: 40 mg Fluticasone Furoate (Fluticasone Furoate 200mcg 14 Puffs/Inhaler) 1 puffs INH DAILY [facility] Stop: 05/25/22 08:59 Last Admin: 04/25/22 07:53 Dose: 1 puffs Furosemide (Furosemide 80 Mg Tab) 80 mg PO QAM [facility] Stop: 05/26/22 08:59 Furosemide (Furosemide 40 Mg Tab) 40 mg PO DAILY@1700 MULU Stop: 05/25/22 16:59 Sodium Chloride (1/2 Nss) 1,000 mls @ 125 mls/hr IV .Q8H MULU Stop: 04/25/22 15:33 Last Admin: 04/25/22 07:55 Dose: 125 mls/hr Insulin Aspart (Insulin Aspart Per Unit) 0 units SC ACHS MULU Stop: 05/25/22 07:29 Last Admin: 04/25/22 12:03 Dose: 6 units Insulin Detemir (Insulin Detemir Flexpen/Flex Touch 100 Units/Ml 3ml) 65 units SQ BID MULU Stop: 05/25/22 08:59 Last Admin: 04/25/22 07:57 Dose: 65 units Lisinopril (Lisinopril 40 Mg Tab) 40 mg PO DAILY MULU Stop: 05/25/22 08:59 Last Admin: 04/25/22 07:52 Dose: 40 mg Metoprolol Succinate (Metoprolol Succ 50mg Ext Rel Tab) 50 mg PO DAILY MULU Stop: 05/25/22 08:59 Last Admin: 04/25/22 07:52 Dose: 50 mg Nitroglycerin (Nitroglycerin Sl 0.4 Mg/Tab Tab) 0.4 mg SL Q5M PRN PRN Reason: Chest Pain Stop: 05/24/22 23:33 Ondansetron HCl (Ondansetron Inj 2 Mg/Ml 2 Ml Vial) 4 mg IV Q6H PRN PRN Reason: Nausea Stop: 05/24/22 23:33 Sertraline HCl (Sertraline Hcl 100 Mg Tablet) 100 mg PO DAILY MULU Stop: 05/25/22 08:59 Last Admin: 04/25/22 07:52 Dose: 100 mg Spironolactone (Spironolactone 25 Mg Tab) 25 mg PO DAILY MULU Stop: 05/25/22 08:59 Last Admin: 04/25/22 07:53 Dose: 25 mg Tamsulosin HCl (Tamsulosin Hcl 0.4 Mg Cap) 0.4 mg PO DAILY MULU Stop: 05/25/22 08:59 Last Admin: 04/25/22 07:53 Dose: 0.4 mg
[2022-04-25] MEDS: FUROSEMIDE 40 MG TAB PO SCH (17:18)
[2022-04-26] MEDS: lisinopril 40 MG TAB PO SCH (08:19)
[2022-04-26] MEDS: TAMSULOSIN HCL 0.4 MG CAP PO SCH (08:19)
[2022-04-26] MEDS: buPROPion XL 150 MG TABCR PO SCH (08:19)
[2022-04-26] MEDS: SPIRONOLACTONE 25 MG TAB PO SCH (08:19)
[2022-04-26] MEDS: ASCORBIC ACID 500 MG TAB PO SCH (08:19)
[2022-04-26] MEDS: SERTRALINE HCL 100 MG TABLET PO SCH (08:19)
[2022-04-26] MEDS: FLUTICASONE FUROATE 200MCG 14 PUFFS/INHALER INH SCH (08:20)
[2022-04-26] MEDS: METOPROLOL SUCC 50MG EXT REL TAB PO SCH (08:20)
[2022-04-26] MEDS: ASPIRIN 81 MG ECTAB PO SCH (08:20)
[2022-04-26] MEDS: INSULIN DETEMIR FLEXPEN/FLEX TOUCH 100 UNITS/ML 3ML SQ SCH ×2 (08:21→21:39)
[2022-04-26] MEDS: INSULIN ASPART PER UNIT SC SCH ×5 (08:22→21:36)
[2022-04-26] MEDS: FUROSEMIDE 80 MG TAB PO SCH (09:31)
[2022-04-26] MEDS: ENOXAPARIN INJ 40 MG/0.4 ML SYR SQ SCH ×2 (12:29→23:58)
--- NOTE | 2022-04-26 13:42 | Progress Notes ---
DATE OF SERVICE: 04/26/2022 SUBJECTIVE: I am seeing the patient for confusion and unsteadiness. His MRI of the brain was noncontributory, and his blood sugars have been markedly elevated. He is feeling well today. He has been up to the bathroom. OBJECTIVE: On exam, he is awake and alert and oriented. His gait is mildly wide-based and Romberg is positive. IMPRESSION: Encephalopathy related to hyperglycemia. Instability, likely related to peripheral neuropathy, likely diabetic. Recommend that the patient have a nerve conduction EMG as an outpatient to confirm neuropathy, see the severity and see if it is consistent with a typical diabetic neuropathy. Job ID: [id number] MTDD
--- NOTE | 2022-04-26 15:13 | Hospitalist Progress Note ---
Date of Service April 26, 2022 Assessment & Plan (1) Hyperglycemia due to type 2 diabetes mellitus: Plan: Uncontrolled diabetes at baseline, poor nutrition-may benefit from education about this and diabetes in general. He is obese and abuses drugs. He appears to have underlying depression that is not being adequately addressed despite sertraline. Would benefit from additional talk therapy as outpatient and addiction counseling. Cont with current basal bolus insulin. Complications including polyneuropathy are known. Would only given basal bolus insulin at discharge and stop metformin to avoid possible added adverse side effects. (2) Dysequilibrium: Plan: Complex diabetic patient with a h/o NICM with preserved EF, on appropriate medications. Evidence of complications of diabetes including polyneuropathy. Has a h/o substance abuse and has been recently using. Also has a h/o recurrent toxoplasma causing chorioretinitis, recently seeing ophthalmology in March. No use of tobacco or alcohol reported and no use of other street drugs. No evidence of acute stroke or other acute intracranial event on brain MRI. Unremarkable CT head and neck. CXR reveals no active disease. Appreciate neurology input. Will also get PT and OT to evaluate him with his unsteady gait. (3) H/O drug abuse: Plan: Addiction counseling should be sought as outpatient. HIV screening today. (4) Polyneuropathy: Plan: Continue with regular foot care and diabetic eye screening at least annually. Work with outpatient PCP to get the glucose better under control. (5) Depression: Plan: chronic, appears poorly controlled as patient is seeking to use crystal meth again and voices that he feels depressed. Cont sertraline and bupropion. Close outpatient followup for titration as needed. Would benefit from outpatient addiction counseling, also. (6) DVT prophylaxis: Plan: Lovenox Full Code Dispo-to home when feeling better and seen by PT and OT Chikis Pereira DO [place] Hospitalist Admission and Anticipated Discharge Date Admission Date: April 24, 2022 Subjective 61-year-old diabetic with uncontrolled type 2 diabetes presents for hyperglycemia. Still feels gait is wobbly. Not yet seen by PT or OT Brain MRI within normal limits and euglycemia has been achieved. We discussed HIV and he was consented for this lab Tolerating PO No other acute symptoms at this time. Review of Systems Review of Systems: All systems were reviewed and negative except as indicated in subjective above. Physical Exam Physical Exam: CONSTITUTIONAL: WNWD, vitals as above, generally well- appearing, NAD EYES: normal conjunctivae, no scleral icterus ENT: external ear and nose normal, MMM NECK: trachea midline RESPIRATORY: clear to auscultation bilaterally, no crackles, rales or wheezes, normal respiratory effort CARDIOVASCULAR: regular rate and rhythm, S1 and 2 heard without murmurs, gallops or rubs, no JVD, no peripheral edema CHEST: inspection of chest was normal GASTROINTESTINAL: soft, nontender, ND, no guarding MUSCULOSKELETAL: strength 5/5 throughout, head is normocephalic and atraumatic, neck supple, normal palpation of chest wall without tenderness SKIN: warm and dry, no rashes NEUROLOGIC: CN 2-12 grossly intact, no sensory deficit, normal cognition, normal speech, no tremor, no gross focal deficits. Did not walk patient given size and fall risk. PSYCHIATRIC: alert cooperative and oriented to person, place and time. Results & Data Results & Data ([facility]) Vital Signs (Past 12 Hours) Vital Signs Temp Pulse Resp BP BP Pulse Ox O2 Del Method 04/26/22 11:05 36.7 C 70 19 121/72 95 Room Air 04/26/22 07:16 36.7 C 69 17 101/59 L 95 Room Air 04/26/22 03:39 36.7 C 75 18 130/70 97 Room Air Medications Administered Current Inpatient Medications Acetaminophen (Acetaminophen 325 Mg Tab) 650 mg PO Q4H PRN PRN Reason: Pain or Fever Stop: 05/24/22 23:33 Ascorbic Acid (Ascorbic Acid 500 Mg Tab) 1,000 mg PO DAILY [facility] Stop: 05/25/22 08:59 Last Admin: 04/26/22 08:19 Dose: 1,000 mg Aspirin (Aspirin 81 Mg Ectab) 81 mg PO DAILY [facility] Stop: 05/25/22 08:59 Last Admin: 04/26/22 08:20 Dose: 81 mg Bupropion HCl (Bupropion Xl 150 Mg Tabcr) 150 mg PO DAILY [facility] Stop: 05/25/22 08:59 Last Admin: 04/26/22 08:19 Dose: 150 mg Enoxaparin Sodium (Enoxaparin Inj 40 Mg/0.4 Ml Syr) 40 mg SQ Q12H [facility] Stop: 05/25/22 00:00 Last Admin: 07/17/22 12:29 Dose: 40 mg Fluticasone Furoate (Fluticasone Furoate 200mcg 14 Puffs/Inhaler) 1 puffs INH DAILY [facility] Stop: 05/25/22 08:59 Last Admin: 04/26/22 08:20 Dose: 1 puffs Furosemide (Furosemide 80 Mg Tab) 80 mg PO QAM [facility] Stop: 05/26/22 08:59 Last Admin: 04/26/22 09:31 Dose: 80 mg Furosemide (Furosemide 40 Mg Tab) 40 mg PO DAILY@1700 [facility] Stop: 05/25/22 16:59 Last Admin: 04/25/22 17:18 Dose: 40 mg Insulin Aspart (Insulin Aspart Per Unit) 0 units SC ACHS [facility] Stop: 05/25/22 07:29 Last Admin: 04/26/22 12:23 Dose: 9 units Insulin Detemir (Insulin Detemir Flexpen/Flex Touch 100 Units/Ml 3ml) 65 units SQ BID [facility] Stop: 05/25/22 08:59 Last Admin: 04/26/22 08:21 Dose: 65 units Lisinopril (Lisinopril 40 Mg Tab) 40 mg PO DAILY [facility] Stop: 05/25/22 08:59 Last Admin: 04/26/22 08:19 Dose: 40 mg Metoprolol Succinate (Metoprolol Succ 50mg Ext Rel Tab) 50 mg PO DAILY [facility] Stop: 05/25/22 08:59 Last Admin: 04/26/22 08:20 Dose: 50 mg Nitroglycerin (Nitroglycerin Sl 0.4 Mg/Tab Tab) 0.4 mg SL Q5M PRN PRN Reason: Chest Pain Stop: 05/24/22 23:33 Ondansetron HCl (Ondansetron Inj 2 Mg/Ml 2 Ml Vial) 4 mg IV Q6H PRN PRN Reason: Nausea Stop: 05/24/22 23:33 Sertraline HCl (Sertraline Hcl 100 Mg Tablet) 100 mg PO DAILY [facility] Stop: 05/25/22 08:59 Last Admin: 04/26/22 08:19 Dose: 100 mg Spironolactone (Spironolactone 25 Mg Tab) 25 mg PO DAILY [facility] Stop: 05/25/22 08:59 Last Admin: 04/26/22 08:19 Dose: 25 mg Tamsulosin HCl (Tamsulosin Hcl 0.4 Mg Cap) 0.4 mg PO DAILY [facility] Stop: 05/25/22 08:59 Last Admin: 04/26/22 08:19 Dose: 0.4 mg
[2022-04-26] MEDS: FUROSEMIDE 40 MG TAB PO SCH (17:12)
[2022-04-26] MEDS ORDERED: INSULIN HUMAN REGULAR PER UNIT 5 UNITS in SYRINGE 0 ML IV STA (21:03)
[2022-04-27] MEDS: METOPROLOL SUCC 50MG EXT REL TAB PO SCH (08:18)
[2022-04-27] MEDS: FUROSEMIDE 80 MG TAB PO SCH (08:19)
[2022-04-27] MEDS: buPROPion XL 150 MG TABCR PO SCH (08:19)
[2022-04-27] MEDS: ASPIRIN 81 MG ECTAB PO SCH (08:19)
[2022-04-27] MEDS: ASCORBIC ACID 500 MG TAB PO SCH (08:19)
[2022-04-27] MEDS: FLUTICASONE FUROATE 200MCG 14 PUFFS/INHALER INH SCH (08:19)
[2022-04-27] MEDS: lisinopril 40 MG TAB PO SCH (08:20)
[2022-04-27] MEDS: SPIRONOLACTONE 25 MG TAB PO SCH (08:20)
[2022-04-27] MEDS: SERTRALINE HCL 100 MG TABLET PO SCH (08:20)
[2022-04-27] MEDS: TAMSULOSIN HCL 0.4 MG CAP PO SCH (08:20)
[2022-04-27] MEDS: INSULIN DETEMIR FLEXPEN/FLEX TOUCH 100 UNITS/ML 3ML SQ SCH ×2 (09:09→21:09)
[2022-04-27] MEDS: INSULIN ASPART PER UNIT SC SCH ×4 (09:10→21:09)
[2022-04-27 09:17] LABS: Hematocrit (blood only) 45.5 % (40.1-51.0); Hemoglobin 15.4 g/dl (14.0-18.0); Mean Corpuscular Hgb Conc 33.8 g/dL (32.0-36.0); Mean Corpuscular Volume 88.7 fL (80.0-100.0); Mean Platelet Volume 9.4 fL (9.4-12.4); Platelet Count 265 K/uL (130-400); RDW Coefficient of Variation 12.4 % (11.5-14.5); RDW Standard Deviation 40.3 fL (36.4-46.3); Red Blood Count 5.13 M/uL (4.63-6.08); White Blood Count 11.12 K/ul (4.8-10.8)
[2022-04-27 09:46] LABS: BUN Creatinine Ratio 25.3 (10-20); Creatinine Clr Calc Pharmacy 109.6 ml/min; Est GFR (African American) 101.1 ml/min; Est GFR (Non-African American) 87.3 ml/min; Magnesium 2.3 mg/dl (1.7-2.4)
[2022-04-27 10:04] LABS: Folate (Folic Acid) > 22.30 ng/ml (>5.38)
[2022-04-27 10:05] LABS: Vitamin B12 276 pg/ml (180-914)
[2022-04-27 10:08] LABS: Vitamin D, 25 Hydrox 42.8 ng/ml (30-100)
--- NOTE | 2022-04-27 11:17 | Hospitalist Progress Note ---
Date of Service April 27, 2022 Assessment & Plan (1) Hyperglycemia due to type 2 diabetes mellitus: Plan: Uncontrolled diabetes at baseline, poor nutrition-may benefit from education about this and diabetes in general. He is obese and abuses drugs. He appears to have underlying depression that is not being adequately addressed despite sertraline. Would benefit from additional talk therapy as outpatient and addiction counseling. Cont with current basal bolus insulin. Complications including polyneuropathy are known. Would only given basal bolus insulin at discharge and stop metformin to avoid possible added adverse side effects. (2) Dysequilibrium: Plan: Complex diabetic patient with a h/o NICM with preserved EF, on appropriate medications. Evidence of complications of diabetes including polyneuropathy. Has a h/o substance abuse and has been recently using. Also has a h/o recurrent toxoplasma causing chorioretinitis, recently seeing ophthalmology in March. No use of tobacco or alcohol reported and no use of other street drugs. No evidence of acute stroke or other acute intracranial event on brain MRI. Unremarkable CT head and neck. CXR reveals no active disease. Appreciate neurology input. Will also get PT and OT to evaluate him with his unsteady gait. It is concerning that he is on both Welbutrin and sertraline 100mg daily. Possible adverse side effects here from the interaction between the two which can enhance the function of the sertraline and lead to serotonin toxicity. For now, cont Welbutrin and hold sertraline and monitor clinica response. (3) H/O drug abuse: Plan: Addiction counseling should be sought as outpatient. HIV pending. (4) Polyneuropathy: Plan: Continue with regular foot care and diabetic eye screening at least annually. Work with outpatient PCP to get the glucose better under control. (5) Depression: Plan: chronic, appears poorly controlled as patient is seeking to use crystal meth again and voices that he feels depressed. Hold sertraline and cont bupropion as outlined above. Close outpatient followup for titration as needed. Would benefit from outpatient addiction counseling, also. (6) DVT prophylaxis: Plan: Lovenox Full Code Dispo-to home when feeling better and seen by PT and OT [facility]ikis [facility] and Anticipated Discharge Date Admission Date: April 24, 2022 Subjective 61-year-old diabetic with uncontrolled type 2 diabetes presents for hyperglycemia. Still feels gait is wobbly. Reports almost falling down twice last night. Not yet seen by PT or OT Brain MRI within normal limits and euglycemia has been achieved. Blood sugar was elevated last night because he ate granola bars which are at his bedside and this was an uncovered snack. Tolerating PO No other acute symptoms at this time. Review of Systems Review of Systems: All systems were reviewed and negative except as indicated in subjective above. Physical Exam Physical Exam: CONSTITUTIONAL: obese, vitals as above, generally appears groggy but is oriented and answering questions appropriately, NAD EYES: normal conjunctivae, no scleral icterus ENT: external ear and nose normal, MMM NECK: trachea midline RESPIRATORY: clear to auscultation bilaterally, no crackles, rales or wheezes, normal respiratory effort CARDIOVASCULAR: regular rate and rhythm, S1 and 2 heard without murmurs, gallops or rubs, no JVD, no peripheral edema CHEST: inspection of chest was normal GASTROINTESTINAL: soft, nontender, ND, no guarding MUSCULOSKELETAL: strength 5/5 throughout, head is normocephalic and atraumatic SKIN: warm and dry, no rashes NEUROLOGIC: CN 2-12 grossly intact, no sensory deficit, normal cognition, normal speech, no tremor, no gross focal deficits. Did not walk patient given size and fall risk. PSYCHIATRIC: alert cooperative and oriented to person, place and time. Results & Data Results & Data ([facility]) Vital Signs (Past 12 Hours) Vital Signs Temp Pulse Resp BP Pulse Ox O2 Del Method 04/27/22 09:26 Room Air 04/27/22 07:02 36.5 C 70 12 98/57 L 94 Room Air Laboratory Results Short CBC 04/27/22 Range/Units 07:43 WBC 11.12 H (4.8-10.8) K/ul Hgb 15.4 (14.0-18.0) g/dl Hct 45.5 (40.1-51.0) % Plt Count 265 (130-400) K/uL BMP 04/27/22 07:43 Sodium 135 L Potassium 4.0 Chloride 102 Carbon Dioxide 27 BUN 24 H Creatinine 0.95 Glucose 144 H Calcium 8.0 L Medications Administered Current Inpatient Medications Acetaminophen (Acetaminophen 325 Mg Tab) 650 mg PO Q4H PRN PRN Reason: Pain or Fever Stop: 05/24/22 23:33 Ascorbic Acid (Ascorbic Acid 500 Mg Tab) 1,000 mg PO DAILY [facility] Stop: 05/25/22 08:59 Last Admin: 04/27/22 08:19 Dose: 1,000 mg Aspirin (Aspirin 81 Mg Ectab) 81 mg PO DAILY [facility] Stop: 05/25/22 08:59 Last Admin: 04/27/22 08:19 Dose: 81 mg Bupropion HCl (Bupropion Xl 150 Mg Tabcr) 150 mg PO DAILY [facility] Stop: 05/25/22 08:59 Last Admin: 04/27/22 08:19 Dose: 150 mg Enoxaparin Sodium (Enoxaparin Inj 40 Mg/0.4 Ml Syr) 40 mg SQ Q12H [facility] Stop: 05/25/22 00:00 Last Admin: 04/26/22 23:58 Dose: 40 mg Fluticasone Furoate (Fluticasone Furoate 200mcg 14 Puffs/Inhaler) 1 puffs INH DAILY [facility] Stop: 05/25/22 08:59 Last Admin: 04/27/22 08:19 Dose: 1 puffs Furosemide (Furosemide 80 Mg Tab) 80 mg PO QAM [facility] Stop: 05/26/22 08:59 Last Admin: 04/27/22 08:19 Dose: 80 mg Furosemide (Furosemide 40 Mg Tab) 40 mg PO DAILY@1700 [facility] Stop: 05/25/22 16:59 Last Admin: 04/26/22 17:12 Dose: 40 mg Insulin Aspart (Insulin Aspart Per Unit) 0 units SC ACHS [facility] Stop: 05/25/22 07:29 Last Admin: 04/27/22 09:10 Dose: 5 units Insulin Detemir (Insulin Detemir Flexpen/Flex Touch 100 Units/Ml 3ml) 65 units SQ BID [facility] Stop: 05/25/22 08:59 Last Admin: 04/27/22 09:09 Dose: 65 units Lisinopril (Lisinopril 40 Mg Tab) 40 mg PO DAILY [facility] Stop: 05/25/22 08:59 Last Admin: 04/27/22 08:20 Dose: 40 mg Metoprolol Succinate (Metoprolol Succ 50mg Ext Rel Tab) 50 mg PO DAILY [facility] Stop: 05/25/22 08:59 Last Admin: 04/27/22 08:18 Dose: Not Given Nitroglycerin (Nitroglycerin Sl 0.4 Mg/Tab Tab) 0.4 mg SL Q5M PRN PRN Reason: Chest Pain Stop: 05/24/22 23:33 Ondansetron HCl (Ondansetron Inj 2 Mg/Ml 2 Ml Vial) 4 mg IV Q6H PRN PRN Reason: Nausea Stop: 05/24/22 23:33 Sertraline HCl (Sertraline Hcl 100 Mg Tablet) 100 mg PO DAILY [facility] Stop: 05/25/22 08:59 Last Admin: 04/27/22 08:20 Dose: 100 mg Spironolactone (Spironolactone 25 Mg Tab) 25 mg PO DAILY [facility] Stop: 05/25/22 08:59 Last Admin: 04/27/22 08:20 Dose: 25 mg Tamsulosin HCl (Tamsulosin Hcl 0.4 Mg Cap) 0.4 mg PO DAILY [facility] Stop: 05/25/22 08:59 Last Admin: 04/27/22 08:20 Dose: 0.4 mg
[2022-04-27] MEDS: ENOXAPARIN INJ 40 MG/0.4 ML SYR SQ SCH ×2 (12:32→23:35)
--- NOTE | 2022-04-27 12:46 | Neurology Progress Note ---
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 Blood sugars at home are running in the 400s. He took insulin and sliding scale, but blood sugar still ran high. He gets confused when his blood sugar is either high and more so very low.He felt mildly generally weak and unsteady, although notes some mild ongoing unsteadiness. He did not have a headache, no change in vision, double vision, slurred speech, unilateral weakness or numbness. He was in the ER 4 days ago due to chest pain. Results & Data ([facility]) Vital Signs (Past 12 Hours) Vital Signs Temp Pulse Resp BP Pulse Ox O2 Del Method 04/27/22 09:26 Room Air 04/27/22 07:02 36.5 C 70 12 98/57 L 94 Room Air Laboratory Results Abnormal lab results 04/26/22 04/26/22 04/26/22 Range/Units 16:23 20:43 23:57 WBC (4.8-10.8) K/ul Sodium (136-145) mmol/L BUN (6-23) mg/dl BUN/Creatinine Ratio (10-20) Glucose (70-99(Fasting)) mg/dl POC Glucose 155 H 331 H* 207 H (70-99) mg/dl Calcium (8.5-10.1) mg/dl 04/27/22 04/27/22 04/27/22 Range/Units 07:43 07:43 08:04 WBC 11.12 H (4.8-10.8) K/ul Sodium 135 L (136-145) mmol/L BUN 24 H (6-23) mg/dl BUN/Creatinine Ratio 25.3 H (10-20) Glucose 144 H (70-99(Fasting)) mg/dl POC Glucose 157 H (70-99) mg/dl Calcium 8.0 L (8.5-10.1) mg/dl 04/27/22 Range/Units 11:50 WBC (4.8-10.8) K/ul Sodium (136-145) mmol/L BUN (6-23) mg/dl BUN/Creatinine Ratio (10-20) Glucose (70-99(Fasting)) mg/dl POC Glucose 240 H (70-99) mg/dl Calcium (8.5-10.1) mg/dl
[2022-04-27] MEDS: FUROSEMIDE 40 MG TAB PO SCH (17:02)
[2022-04-28] MEDS: ASCORBIC ACID 500 MG TAB PO SCH (08:26)
[2022-04-28] MEDS: TAMSULOSIN HCL 0.4 MG CAP PO SCH (08:26)
[2022-04-28] MEDS: lisinopril 40 MG TAB PO SCH (08:26)
[2022-04-28] MEDS: FUROSEMIDE 80 MG TAB PO SCH (08:26)
[2022-04-28] MEDS: buPROPion XL 150 MG TABCR PO SCH (08:26)
[2022-04-28] MEDS: METOPROLOL SUCC 50MG EXT REL TAB PO SCH (08:26)
[2022-04-28] MEDS: FLUTICASONE FUROATE 200MCG 14 PUFFS/INHALER INH SCH (08:26)
[2022-04-28] MEDS: ASPIRIN 81 MG ECTAB PO SCH (08:26)
[2022-04-28] MEDS: SPIRONOLACTONE 25 MG TAB PO SCH (08:26)
[2022-04-28] MEDS: INSULIN DETEMIR FLEXPEN/FLEX TOUCH 100 UNITS/ML 3ML SQ SCH (08:30)
[2022-04-28] MEDS: INSULIN ASPART PER UNIT SC SCH ×2 (08:30→12:27)
[2022-04-28 08:54] LABS: Hematocrit (blood only) 47.2 % (40.1-51.0); Hemoglobin 16.1 g/dl (14.0-18.0); Mean Corpuscular Hgb Conc 34.1 g/dL (32.0-36.0); Mean Corpuscular Volume 88.1 fL (80.0-100.0); Mean Platelet Volume 9.2 fL (9.4-12.4); Platelet Count 282 K/uL (130-400); RDW Coefficient of Variation 12.6 % (11.5-14.5); Red Blood Count 5.36 M/uL (4.63-6.08); White Blood Count 11.42 K/ul (4.8-10.8)
[2022-04-28 09:20] LABS: Est GFR (African American) 111.1 ml/min; Est GFR (Non-African American) 95.8 ml/min
[2022-04-28] MEDS: ENOXAPARIN INJ 40 MG/0.4 ML SYR SQ SCH (11:28)
--- NOTE | 2022-04-28 13:36 | Discharge Summary ---
Date of Service April 28, 2022 Principal Diagnosis Hyperglycemia in setting of uncontrolled diabetes Dysequilibrium Discharge Exam CONSTITUTIONAL: obese, vitals as above, generally appears groggy but is oriented and answering questions appropriately, NAD EYES: normal conjunctivae, no scleral icterus ENT: external ear and nose normal, MMM NECK: trachea midline RESPIRATORY: clear to auscultation bilaterally, no crackles, rales or wheezes, normal respiratory effort CARDIOVASCULAR: regular rate and rhythm, S1 and 2 heard without murmurs, gallops or rubs, no JVD, no peripheral edema CHEST: inspection of chest was normal GASTROINTESTINAL: soft, nontender, ND, no guarding MUSCULOSKELETAL: strength 5/5 throughout, head is normocephalic and atraumatic SKIN: warm and dry, no rashes NEUROLOGIC: CN 2-12 grossly intact, no sensory deficit, normal cognition, normal speech, no tremor, no gross focal deficits. Did not walk patient given size and fall risk. PSYCHIATRIC: alert cooperative and oriented to person, place and time. Discharge Data Allergies Allergy/AdvReac Type Severity Reaction Status Date / Time permethrin Allergy Intermediate swelling Verified 04/24/22 19:52 shrimp Allergy Intermediate SWELLS Verified 04/24/22 19:52 amoxicillin AdvReac Intermediate HIVES Verified 04/24/22 19:52 clavulanic acid AdvReac Intermediate HIVES Verified 04/24/22 19:52 Consultations 04/24/22 20:29 ED Decision to Admit Stat 04/25/22 07:28 Consult Neurology Routine Ordered Studies 04/24/22 17:41 CT head/brain wo con Stat 04/24/22 18:22 CT angio head w con Stat CT angio neck with con Stat 04/25/22 23:34 MR brain wo con Urgent Diabetes Follow up Diabetes Follow-up Needed for HgbA1c >9% Hospital Course (1) Hyperglycemia due to type 2 diabetes mellitus: Uncontrolled diabetes at baseline, poor nutrition-may benefit from education about this and diabetes in general. He is obese and abuses drugs. He appears to have underlying depression that is not being adequately addressed despite sertraline. Would benefit from additional talk therapy as outpatient and addiction counseling. Cont with current basal bolus insulin. Complications including polyneuropathy are known. Would only given basal bolus insulin at discharge and stop metformin to avoid possible added adverse side effects. (2) Dysequilibrium: Complex diabetic patient with a h/o NICM with preserved EF, on appropriate medications. Evidence of complications of diabetes including polyneuropathy. Has a h/o substance abuse and has been recently using. Also has a h/o recurrent toxoplasma causing chorioretinitis, recently seeing ophthalmology in March. No use of tobacco or alcohol reported and no use of other street drugs. No evidence of acute stroke or other acute intracranial event on brain MRI. Unremarkable CT head and neck. CXR reveals no active disease. Appreciate neurology input. Will also get PT and OT to evaluate him with his unsteady gait. It is concerning that he is on both Welbutrin and sertraline 100mg daily. Possible adverse side effects here from the interaction between the two which can enhance the function of the sertraline and lead to serotonin toxicity. For now, cont Welbutrin and hold sertraline and monitor clinica response. (3) H/O drug abuse: Addiction counseling should be sought as outpatient. HIV pending. (4) Polyneuropathy: Continue with regular foot care and diabetic eye screening at least annually. Work with outpatient PCP to get the glucose better under control. (5) Depression: chronic, appears poorly controlled as patient is seeking to use crystal meth again and voices that he feels depressed. Hold sertraline and cont bupropion as outlined above. Close outpatient followup for titration as needed. Would benefit from outpatient addiction counseling, also. (6) DVT prophylaxis: Lovenox Full Code Dispo-to home when feeling better and seen by PT and OT Chikis Pereira DO [facility] Hospitalist Total Time Total Time Spent Total Time Spent (In Minutes): 60 Discharge Plan Discharge Items Patient Disposition: Home - Self-Care Reason For Visit: ILLNESS Discharge Diagnosis: Hyperglycemia in setting of uncontrolled diabetes Dysequilibrium Condition on Discharge: Fair Activity: Resume your previous activity Non-emergency contact: Primary Care Provider Call non-emergency contact if: you have any medication questions, your symptoms worsen, your pain is not controlled, your pain is worsening, your pain is unusual for you, your pain is concerning for you and you have a fever Follow-up/Referrals: Willam Fofana DO [Primary Care Provider] - (Date & Time 05/01/2022 12:20 PM Provider Nishi Hernandez PA-C [facility] ) Diet: Carb Consistent or DM2 Addtl Attending Provider Instructions: Please take all medications as instructed on discharge list below. You are on multi-daily dose insulin, covered with both long and short acting insulin. Therefore, you should be fine to stop the other pills for diabetes. Please discuss this change with your primary care provider on followup. Your short-acting insulin has been adjusted to 10 units three times daily and a new prescription was sent to [facility] for you. I would also recommend that you stop your sertraline and continue bupropion as these medications can interact and cause unwanted side effects. It is recommended that you follow-up with your PCP within one week of leaving the hospital. This will be important to review the medication changes and to ensure your symptoms have not returned. It will also be important to discuss the changes to your antidepressant regimen long-term. It was a pleasure taking care of you! Please call if you have any questions or problems. You can reach a [facility] hospitalist on duty at [facility] 24 hours a day by calling [phone]. Take care of yourself. Chikis Pereira, [facility] Pending Studies at Discharge: No Stand-Alone Forms: My [facility] Medications and DC Order Prescriptions: Continued furosemide 40 mg Tablet See Rx Instructions .ROUTE .COMPLEX Rx Instructions: 40 mg orally; TAKES 80 MG QAM, THEN 40 MG QPM. spironolactone 25 mg Tablet 25 mg PO DAILY ascorbic acid (vitamin C) [Vitamin C] 500 mg Tablet 1,000 mg PO DAILY nitroglycerin 0.4 mg Tablet, Sublingual 1 dose sublingual DIRECTED PRN (Reason: Angina) lisinopril 40 mg Tablet 40 mg PO DAILY metoprolol succinate 50 mg tablet extended release 24 hr 50 mg PO DAILY bupropion HCl 150 mg tablet extended release 24 hr 150 mg PO DAILY tamsulosin 0.4 mg capsule 0.4 mg PO DAILY fluticasone propionate [Flovent HFA] 220 mcg/actuation HFA aerosol inhaler 2 puff INHALATION BID Levemir FlexTouch U-100 Insuln 100 unit/mL (3 mL) insulin pen 65 unit SUBCUT BID Changed Novolin R Regular U-100 Insuln 100 unit/mL solution 10 unit subcut TIDM Qty: 10 0RF Discontinued sertraline 100 mg tablet 100 mg PO DAILY Jardiance 25 mg tablet 25 mg PO DAILY metformin 750 mg tablet extended release 24 hr 1,500 mg PO DAILY Rx Instructions: 2 tablet dose Discharge Orders: Discharge Order (Routine); Ordered 04/28/22 Ordered By: Chikis Valderrama/Other Patient Handouts: High Blood Sugar (Hyperglycemia), Managing Type 2 Diabetes, Diabetes: Meal Planning, Special Foot Care for Diabetes Admission Data Admit Date/Time: 04/24/22 22:12 Attending Provider: Chikis Pereira Admit Provider: Benoit De La Torre Primary Care Provider: Willam Fofana Other Providers: Benoit De La Torre ; Geovanna Bradshaw
[2022-04-30 17:29] LABS: Amphetamine Urine, Confirm 388 ng/mL (<250); MDA negative; MDEA negative; MDMA (Ecstasy) Urine, Confirm negative; Methamphetamine, Ur Confirm 3910 ng/mL (<250)
== END 2022-04-28 14:31 | disposition home or self-care (01) | DRG 638 ==
LOC: ED 16:46 → 2S 22:12 → 3W 04-26 17:37

== ENCOUNTER 2022-08-01 17:19 | Inpatient (IN) ==
--- NOTE | 2022-08-01 17:57 | Emergency Department Note ---
Impression & Plan Fatigue, Bilateral cellulitis of lower leg, Hyperglycemia due to type 2 diabetes mellitus ED Provider Note Provider: Slim Duran MD DATE OF SERVICE: 08/01/2022 CHIEF COMPLAINT: Weak/confused, leg swelling and redness HISTORY OF PRESENT ILLNESS: Patient is a 62-year-old gentleman history of type 2 diabetes with neuropathy and PAD presenting here with sister today. She reports that he has not been himself for the last several days and has been very sleeping just sleeping all day with increasing leg swelling and redness. No new trauma reported. Use some alcohol at the beginning week on Wednesday but none since then or other drugs. Patient Dors is significant fatigue and blood sugars have been quite high into the 400s. Sister states she has been working with his insulin to try to bring that down today. Patient states he has had some slight bleeding from some small wounds on his legs above the more red and swollen to have a burning sensation. Some slight burning in the hands. Denies any chest pain or abdominal pain. Denies significant trauma to the lower extremities. REVIEW OF SYSTEMS: A total of 10 review of systems was obtained and negative except as stated above in the HPI. PAST MEDICAL HISTORY: As noted above MEDICATIONS:reviewed home medications SOCIAL HISTORY: Denies smoking PHYSICAL EXAM: GENERAL: alert and oriented in no acute distress on stretcher Head: normocephalic and atraumatic EYES: No injection, discharge or icterus. PERRL NECK: Trachea midline. Supple. ENT: Mucous membranes pink and moist. Pharynx without erythema or exudate. LUNGS: Airway patent. No retractions. Breath sounds clear with good air entry bilaterally. HEART: Regular rate and rhythm. No chest wall tenderness ABDOMEN: Soft and non-tender, without guarding or rebound. SKIN: Acyanotic, warm, dry EXTREMITIES: Bilateral swelling of the lower extremities to the knees with redness and some areas of varicosities with a few scabs scattered on the shins and ankles. No obvious purulent discharge. Slight skin tear on the right wrist area minimal in nature fall without . NEUROLOGICAL: No focal deficits. No aphasia. No facial droop or slurred speech. Normal strength and tone in the extremities. Sensation to gross touch normal. Ambulatory. EK beats minute sinus rhythm with PAC. No PVC. No acute ST segment elevation or depression with a QTC of 473. Rightward axis. CONTINUOUS CARDIAC MONITORING: was ordered and showed a heart rate of 70s-80s bpm in normal sinus rhythm Patient's laboratory studies and imaging reviewed. Differential includes Infection, dehydration, metabolic abnormality, hypo/hyperglycemia, electrolyte disturbance, anemia, hypoxia, cardiac sources, intracerebral event, toxicologic, neurologic, as well as other pathologies. IMPRESSION/MEDICAL DECISION MAKING: All extremities do appear to have some cellulitic component. Do question for some component of fluid overload as well. Obviously has underlying diabetes and neuropathy issues may explain the burning sensation. Blood sugars have been elevated and fatigue and some slight confusion reported. Nonfocal exam and lower suspicion for CVA or stroke we will complete a CT of the head. Chest x- ray obtained as well as BNP for signs of fluid overload. Electrolytes sent as well as blood cultures given concern for infection of the lower extremities. Chest x-ray here without evidence of significant fluid overload but cardiomegaly. CT of the head is unremarkable. Believe this possibly more metabolic is fatigue and mentation issue versus related to the infection of his legs. Will cover with vancomycin for gram-positive coverage at this time. Warmth appears a little bit more aggressive than I expect with chronic stasis changes or PAD. Does not appear septic. Given his significant weakness was some concern for possible infection as diabetic feel hospitalization would be in his best interest. BNP not severely elevated and lower suspicion for gross fluid overload. Did order VBG to exclude hypercarbia. DIAGNOSIS: Hyperglycemia due to type 2 diabetes, weakness/fatigue, bilateral lower leg cellulitis DISPOSITION: Hospitalist will evaluate Patient was agreeable with this plan. Past Med/Surg History Medical History (Updated 08/01/22 @ 18:39 by Slim Duran M.D.) Anxiety Congestive heart failure Depression Diabetes mellitus, type 2 Dysequilibrium H/O drug abuse Hepatitis C Hypertension Nonischemic cardiomyopathy "prior EF 30% per Epic records. echo 02/2015- EF 54%" Surgical History History of cardiac cath 03/2015 @ [facility], no stents follows with Dr. 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 Repairer Required: No Beliefs That Will Affect Care: None marital status: Single Current Living Situation: Alone Current Living Situation Comment: lives alone Feels Safe at Home: Yes Assistive Devices: None Allergies Allergies Allergy/AdvReac Type Severity Reaction Status Date / Time permethrin Allergy Intermediate swelling Verified 04/24/22 19:52 shrimp Allergy Intermediate SWELLS Verified 04/24/22 19:52 amoxicillin AdvReac Intermediate HIVES Verified 04/24/22 19:52 clavulanic acid AdvReac Intermediate HIVES Verified 04/24/22 19:52 Home Meds Home Medications Medication Instructions Recorded Confirmed ascorbic acid (vitamin C) 500 mg 1,000 mg PO DAILY 01/04/19 04/24/22 tablet (Vitamin C) furosemide 40 mg tablet See Rx Instructions .Route .COMPLEX 01/04/19 04/24/22 lisinopril 40 mg tablet 40 mg PO DAILY 01/04/19 04/24/22 nitroglycerin 0.4 mg sublingual 1 dose sublingual DIRECTED PRN 01/04/19 04/24/22 tablet Angina spironolactone 25 mg tablet 25 mg PO DAILY 01/04/19 04/24/22 bupropion HCl 150 mg 24 hr tablet, 150 mg PO DAILY 07/13/19 04/24/22 extended release metoprolol succinate 50 mg 50 mg PO DAILY 07/13/19 04/24/22 tablet,extended release 24 hr tamsulosin 0.4 mg capsule 0.4 mg PO DAILY 08/14/20 04/24/22 fluticasone propionate 220 2 puff inhalation BID 04/24/22 04/24/22 mcg/actuation HFA aerosol inhaler (Flovent HFA) insulin detemir U-100 100 unit/mL 65 unit subcut BID 04/24/22 04/24/22 (3 mL) subcutaneous pen (Levemir FlexTouch U-100 Insulin) Previous Rx's Medication Instructions Recorded insulin regular human 100 unit/mL 10 unit (0.1 mL) subcut TIDM #10 mL 04/28/22 injection solution (Novolin R Regular U-100 Insulin) Results & Data (ED) Vital Signs Vital Signs - 24 hr 08/01/22 17:23 08/01/22 17:44 08/01/22 18:00 Temperature 36.9 C Temperature Source Oral Pulse Rate 86 72 Pulse Rate from SpO2 Sensor Respiratory Rate 18 18 19 Blood Pressure Blood Pressure Mean Pulse Oximetry Sepsis Recent Fever Within 48 Hours No Sepsis New/Unexplained Change in Mental Status N/A Sepsis Action Taken by Nursing No Action Required 08/01/22 18:30 08/01/22 18:31 08/01/22 18:31 Temperature Temperature Source Pulse Rate 75 76 Pulse Rate from SpO2 Sensor 71 76 Respiratory Rate 15 14 Blood Pressure 158/84 H Blood Pressure Mean 108 Pulse Oximetry 96 96 Sepsis Recent Fever Within 48 Hours Sepsis New/Unexplained Change in Mental Status Sepsis Action Taken by Nursing Laboratory Data Result diagrams: 08/01/22 18:00 08/01/22 18:00 Lab Results 08/01/22 08/01/22 08/01/22 Range/Units 18:00 18:00 18:00 WBC 10.05 (4.8-10.8) K/ul RBC 5.47 (4.63-6.08) M/uL Hgb 15.7 (14.0-18.0) g/dl Hct 47.1 (40.1-51.0) % MCV 86.1 (80.0-100.0) fL MCH 28.7 (25.0-34.0) pg MCHC 33.3 (32.0-36.0) g/dL RDW Std Deviation 40.9 (36.4-46.3) fL RDW Coeff of Marc 13.2 (11.5-14.5) % Plt Count 293 (130-400) K/uL MPV 9.6 (9.4-12.4) fL Immature Gran % (Auto) 0.5 % Neut % (Auto) 57.4 % Lymph % (Auto) 29.1 % [place] % (Auto) 6.7 % Eos % (Auto) 4.9 % Baso % (Auto) 1.4 % Neut # (Auto) 5.78 (1.4-6.5) K/uL Lymph # (Auto) 2.92 (1.2-3.4) K/uL [place] # (Auto) 0.67 (0.24-0.82) K/uL Eos # (Auto) 0.49 (0-0.50) K/uL Baso # (Auto) 0.14 (0-0.2) K/uL Immature Gran # (Auto) 0.05 H (0.00-0.02) K/uL VBG pH (7.36-7.41) VBG pCO2 (38-50) mmHg VBG pO2 mmHg VBG HCO3 mmol/L VBG O2 Saturation % VBG Base Excess mEq/L Sodium 135 L (136-145) mmol/L Potassium 4.2 (3.5-5.1) mmol/L Chloride 103 (98-107) mmol/L Carbon Dioxide 24 (21-32) mmol/L Anion Gap 8 (3-11) BUN 18 (6-23) mg/dl Creatinine 0.79 (0.6-1.4) mg/dl Est Cr Clr Drug Dosing 134.0 ml/min Est GFR ( Amer) 113.1 ml/min Est GFR (Non-Af Amer) 97.6 ml/min BUN/Creatinine Ratio 22.8 H (10-20) Glucose 231 H (70-99(Fasting)) mg/dl Lactate (0.4-2.0) mmol/L Calcium 8.6 (8.5-10.1) mg/dl Magnesium 2.0 (1.7-2.4) mg/dl Total Bilirubin 0.5 (0.2-1.0) mg/dl AST 21 (13-39) U/L ALT 19 (7-52) U/L Alkaline Phosphatase 83 (34-104) U/L Ammonia 35.0 (18-72) umol/L Troponin I High Sens 11.9 (0-20) pg/ml B-Natriuretic Peptide (0-100) pg/ml Total Protein 6.6 (6.0-8.3) gm/dl Albumin 3.3 L (3.4-5.0) gm/dl Globulin 3.3 (2.5-4.0) gm/dl Albumin/Globulin Ratio 1.0 (0.9-2) Procalcitonin (0-0.5) ng/ml TSH (0.300-4.500) uIu/ml Urine Color Urine Appearance (Clear) Urine pH (4.5-7.5) Ur Specific [place] (1.000-1.030) Urine Protein (Negative) Urine Glucose (UA) (Negative) Urine Ketones (Negative) Urine Blood (Negative) Urine Nitrite (Negative) Urine Bilirubin (Negative) Urine Urobilinogen (Negative) Ur Leukocyte Esterase (Negative) SARS-CoV-2, RNA, NAAT (NEGATIVE) 08/01/22 08/01/22 08/01/22 Range/Units 18:00 18:00 18:00 WBC (4.8-10.8) K/ul RBC (4.63-6.08) M/uL Hgb (14.0-18.0) g/dl Hct (40.1-51.0) % MCV (80.0-100.0) fL MCH (25.0-34.0) pg MCHC (32.0-36.0) g/dL RDW Std Deviation (36.4-46.3) fL RDW Coeff of Marc (11.5-14.5) % Plt Count (130-400) K/uL MPV (9.4-12.4) fL Immature Gran % (Auto) % Neut % (Auto) % Lymph % (Auto) % [place] % (Auto) % Eos % (Auto) % Baso % (Auto) % Neut # (Auto) (1.4-6.5) K/uL Lymph # (Auto) (1.2-3.4) K/uL [place] # (Auto) (0.24-0.82) K/uL Eos # (Auto) (0-0.50) K/uL Baso # (Auto) (0-0.2) K/uL Immature Gran # (Auto) (0.00-0.02) K/uL VBG pH (7.36-7.41) VBG pCO2 (38-50) mmHg VBG pO2 mmHg VBG HCO3 mmol/L VBG O2 Saturation % VBG Base Excess mEq/L Sodium (136-145) mmol/L Potassium (3.5-5.1) mmol/L Chloride (98-107) mmol/L Carbon Dioxide (21-32) mmol/L Anion Gap (3-11) BUN (6-23) mg/dl Creatinine (0.6-1.4) mg/dl Est Cr Clr Drug Dosing ml/min Est GFR ( Amer) ml/min Est GFR (Non-Af Amer) ml/min BUN/Creatinine Ratio (10-20) Glucose (70-99(Fasting)) mg/dl Lactate (0.4-2.0) mmol/L Calcium (8.5-10.1) mg/dl Magnesium (1.7-2.4) mg/dl Total Bilirubin (0.2-1.0) mg/dl AST (13-39) U/L ALT (7-52) U/L Alkaline Phosphatase (34-104) U/L Ammonia (18-72) umol/L Troponin I High Sens (0-20) pg/ml B-Natriuretic Peptide 30 (0-100) pg/ml Total Protein (6.0-8.3) gm/dl Albumin (3.4-5.0) gm/dl Globulin (2.5-4.0) gm/dl Albumin/Globulin Ratio (0.9-2) Procalcitonin < 0.05 (0-0.5) ng/ml TSH 2.539 (0.300-4.500) uIu/ml Urine Color Urine Appearance (Clear) Urine pH (4.5-7.5) Ur Specific [place] (1.000-1.030) Urine Protein (Negative) Urine Glucose (UA) (Negative) Urine Ketones (Negative) Urine Blood (Negative) Urine Nitrite (Negative) Urine Bilirubin (Negative) Urine Urobilinogen (Negative) Ur Leukocyte Esterase (Negative) SARS-CoV-2, RNA, NAAT (NEGATIVE) 08/01/22 08/01/22 08/01/22 Range/Units 18:00 18:42 19:17 WBC (4.8-10.8) K/ul RBC (4.63-6.08) M/uL Hgb (14.0-18.0) g/dl Hct (40.1-51.0) % MCV (80.0-100.0) fL MCH (25.0-34.0) pg MCHC (32.0-36.0) g/dL RDW Std Deviation (36.4-46.3) fL RDW Coeff of Marc (11.5-14.5) % Plt Count (130-400) K/uL MPV (9.4-12.4) fL Immature Gran % (Auto) % Neut % (Auto) % Lymph % (Auto) % [place] % (Auto) % Eos % (Auto) % Baso % (Auto) % Neut # (Auto) (1.4-6.5) K/uL Lymph # (Auto) (1.2-3.4) K/uL [place] # (Auto) (0.24-0.82) K/uL Eos # (Auto) (0-0.50) K/uL Baso # (Auto) (0-0.2) K/uL Immature Gran # (Auto) (0.00-0.02) K/uL VBG pH 7.34 L (7.36-7.41) VBG pCO2 58 H (38-50) mmHg VBG pO2 23 mmHg VBG HCO3 31 mmol/L VBG O2 Saturation < 60.0 % VBG Base Excess 3.9 mEq/L Sodium (136-145) mmol/L Potassium (3.5-5.1) mmol/L Chloride (98-107) mmol/L Carbon Dioxide (21-32) mmol/L Anion Gap (3-11) BUN (6-23) mg/dl Creatinine (0.6-1.4) mg/dl Est Cr Clr Drug Dosing ml/min Est GFR ( Amer) ml/min Est GFR (Non-Af Amer) ml/min BUN/Creatinine Ratio (10-20) Glucose (70-99(Fasting)) mg/dl Lactate 0.8 (0.4-2.0) mmol/L Calcium (8.5-10.1) mg/dl Magnesium (1.7-2.4) mg/dl Total Bilirubin (0.2-1.0) mg/dl AST (13-39) U/L ALT (7-52) U/L Alkaline Phosphatase (34-104) U/L Ammonia (18-72) umol/L Troponin I High Sens (0-20) pg/ml B-Natriuretic Peptide (0-100) pg/ml Total Protein (6.0-8.3) gm/dl Albumin (3.4-5.0) gm/dl Globulin (2.5-4.0) gm/dl Albumin/Globulin Ratio (0.9-2) Procalcitonin (0-0.5) ng/ml TSH (0.300-4.500) uIu/ml Urine Color Urine Appearance (Clear) Urine pH (4.5-7.5) Ur Specific [place] (1.000-1.030) Urine Protein (Negative) Urine Glucose (UA) (Negative) Urine Ketones (Negative) Urine Blood (Negative) Urine Nitrite (Negative) Urine Bilirubin (Negative) Urine Urobilinogen (Negative) Ur Leukocyte Esterase (Negative) SARS-CoV-2, RNA, NAAT NEGATIVE (NEGATIVE) 08/01/22 Range/Units 19:34 WBC (4.8-10.8) K/ul RBC (4.63-6.08) M/uL Hgb (14.0-18.0) g/dl Hct (40.1-51.0) % MCV (80.0-100.0) fL MCH (25.0-34.0) pg MCHC (32.0-36.0) g/dL RDW Std Deviation (36.4-46.3) fL RDW Coeff of Marc (11.5-14.5) % Plt Count (130-400) K/uL MPV (9.4-12.4) fL Immature Gran % (Auto) % Neut % (Auto) % Lymph % (Auto) % [place] % (Auto) % Eos % (Auto) % Baso % (Auto) % Neut # (Auto) (1.4-6.5) K/uL Lymph # (Auto) (1.2-3.4) K/uL [place] # (Auto) (0.24-0.82) K/uL Eos # (Auto) (0-0.50) K/uL Baso # (Auto) (0-0.2) K/uL Immature Gran # (Auto) (0.00-0.02) K/uL VBG pH (7.36-7.41) VBG pCO2 (38-50) mmHg VBG pO2 mmHg VBG HCO3 mmol/L VBG O2 Saturation % VBG Base Excess mEq/L Sodium (136-145) mmol/L Potassium (3.5-5.1) mmol/L Chloride (98-107) mmol/L Carbon Dioxide (21-32) mmol/L Anion Gap (3-11) BUN (6-23) mg/dl Creatinine (0.6-1.4) mg/dl Est Cr Clr Drug Dosing ml/min Est GFR ( Amer) ml/min Est GFR (Non-Af Amer) ml/min BUN/Creatinine Ratio (10-20) Glucose (70-99(Fasting)) mg/dl Lactate (0.4-2.0) mmol/L Calcium (8.5-10.1) mg/dl Magnesium (1.7-2.4) mg/dl Total Bilirubin (0.2-1.0) mg/dl AST (13-39) U/L ALT (7-52) U/L Alkaline Phosphatase (34-104) U/L Ammonia (18-72) umol/L Troponin I High Sens (0-20) pg/ml B-Natriuretic Peptide (0-100) pg/ml Total Protein (6.0-8.3) gm/dl Albumin (3.4-5.0) gm/dl Globulin (2.5-4.0) gm/dl Albumin/Globulin Ratio (0.9-2) Procalcitonin (0-0.5) ng/ml TSH (0.300-4.500) uIu/ml Urine Color Yellow Urine Appearance Clear (Clear) Urine pH 5.0 (4.5-7.5) Ur Specific [place] 1.016 (1.000-1.030) Urine Protein Negative (Negative) Urine Glucose (UA) 3+ H (Negative) Urine Ketones Negative (Negative) Urine Blood Negative (Negative) Urine Nitrite Negative (Negative) Urine Bilirubin Negative (Negative) Urine Urobilinogen Negative (Negative) Ur Leukocyte Esterase Negative (Negative) SARS-CoV-2, RNA, NAAT (NEGATIVE) Administered Medications Vancomycin HCl 2,500 mg/ (Sodium Chloride) 550 mls @ 200 mls/hr IV NOW ONE Stop: 08/01/22 21:18 Last Admin: 08/01/22 19:38 Dose: 200 mls/hr Documented By: Sodium Chloride (Nss 1000ml) 1,000 mls @ 60 mls/hr IV .[id number] ONE Stop: 08/02/22 12:10 Last Admin: 08/01/22 19:38 Dose: 60 mls/hr Documented By: JR Imaging Data Radiologist's Impression: Chest X-Ray 08/01/22 17:51 XR chest 1V portable CLINICAL HISTORY: leg swelling TECHNIQUE: Single frontal radiograph of the chest was obtained. Comparison: Comparison is made to chest radiograph 04/24/2022 FINDINGS: Exam is limited by underpenetration. Cardiomegaly is noted. The lungs are clear. No evidence of pleural effusion or pneumothorax. IMPRESSION: No acute chest disease. Cardiomegaly is noted. ACT 112: Negative or not required by law. Electronically signed by: Daron Terrell M.D. 08/01/2022 6:[address] 08/01/22 17:51 CT head/brain wo con CLINICAL HISTORY: weak, confused Technique: Contiguous axial CT images of the head were acquired from the base of the skull to the vertex without intravenous contrast administration. Images were viewed in brain, subdural and bone windows. Automated dose lowering techniques and/or adjustment according to patient size were utilized for this exam. Comparison: Comparison is made to CTA head and neck 04/24/2022 Findings: Patient is status post left craniotomy. There is no evidence of acute hemorrhage or CT evidence of infarct. Arachnoid cyst at the anterior right temporal lobe is unchanged. Imaged portions of the paranasal sinuses and mastoid air cells are clear. The orbits appear normal. There are no acute fractures of the calvaria or scalp swelling. Impression: No acute intracranial hemorrhage, no evidence of acute territorial infarction or other acute intracranial disease process. ACT 112: Negative or not required by law. Electronically signed by: Daron Terrell M.D. 08/01/2022 6:24 PM Discharge Plan Visit Data Chief Complaint: Referred by Doctor Stated Complaint: sent from [facility] Provider: Slim Duran Discharge Problem: Fatigue, Bilateral cellulitis of lower leg, Hyperglycemia due to type 2 d iabetes mellitus Forms Stand Alone Forms: My [facility] Now Prescriptions Prescriptions: No Action furosemide 40 mg Tablet See Rx Instructions .ROUTE .COMPLEX Rx Instructions: 40 mg orally; TAKES 80 MG QAM, THEN 40 MG QPM. spironolactone 25 mg Tablet 25 mg PO DAILY ascorbic acid (vitamin C) [Vitamin C] 500 mg Tablet 1,000 mg PO DAILY nitroglycerin 0.4 mg Tablet, Sublingual 1 dose sublingual DIRECTED PRN (Reason: Angina) lisinopril 40 mg Tablet 40 mg PO DAILY metoprolol succinate 50 mg tablet extended release 24 hr 50 mg PO DAILY bupropion HCl 150 mg tablet extended release 24 hr 150 mg PO DAILY tamsulosin 0.4 mg capsule 0.4 mg PO DAILY fluticasone propionate [Flovent HFA] 220 mcg/actuation HFA aerosol inhaler 2 puff INHALATION BID Levemir FlexTouch U-100 Insuln 100 unit/mL (3 mL) insulin pen 65 unit SUBCUT BID Novolin R Regular U-100 Insuln 100 unit/mL solution 10 unit subcut TIDM Qty: 10 0RF Referrals Referrals: Willam Fofana, [Primary Care Provider] - : Fatigue Qualifiers: Fatigue type: unspecified Qualified Code(s): R53.83 - Other fatigue Hyperglycemia due to type 2 diabetes mellitus Qualifiers: Diabetes mellitus intermediate manager insulin use: with senior living use Qualified Code(s): E11.65 - Type 2 diabetes mellitus with hyperglycemia
[2022-08-01 18:17] LABS: Basophils # (auto) 0.14 K/uL (0-0.2); Basophils % (auto) 1.4 %; Eosinophils # (auto) 0.49 K/uL (0-0.50); Eosinophils % (auto) 4.9 %; Hematocrit (blood only) 47.1 % (40.1-51.0); Hemoglobin 15.7 g/dl (14.0-18.0); Immature Granulocytes # (auto) 0.05 K/uL (0.00-0.02); Immature Granulocytes % (auto) 0.5 %; Lymphocytes # (auto) 2.92 K/uL (1.2-3.4); Lymphocytes % (auto) 29.1 %; Mean Corpuscular Hemoglobin 28.7 pg (25.0-34.0); Mean Corpuscular Hgb Conc 33.3 g/dL (32.0-36.0); Mean Corpuscular Volume 86.1 fL (80.0-100.0); Mean Platelet Volume 9.6 fL (9.4-12.4); Monocytes # (auto) 0.67 K/uL (0.24-0.82); Monocytes % (auto) 6.7 %; Neutrophils # (auto) 5.78 K/uL (1.4-6.5); Neutrophils % (auto) 57.4 %; Platelet Count 293 K/uL (130-400); RDW Coefficient of Variation 13.2 % (11.5-14.5); RDW Standard Deviation 40.9 fL (36.4-46.3); Red Blood Count 5.47 M/uL (4.63-6.08); White Blood Count 10.05 K/ul (4.8-10.8)
--- NOTE | 2022-08-01 18:25 | XRay Report ---
XR chest 1V portable CLINICAL HISTORY: leg swelling TECHNIQUE: Single frontal radiograph of the chest was obtained. Comparison: Comparison is made to chest radiograph 04/24/2022 FINDINGS: Exam is limited by underpenetration. Cardiomegaly is noted. The lungs are clear. No evidence of pleur al effusion or pneumothorax. IMPRESSION: No acute chest disease. Cardiomegaly is noted. ACT 112: Negative or not required by law. Electronically signed by: Daron Terrell M.D. 08/01/2022 6:24 PM
--- NOTE | 2022-08-01 18:26 | CT Scan Report ---
CT head/brain wo con CLINICAL HISTORY: weak, confused Technique: Contiguous axial CT images of the head were acquired from the base of the skull to the sonali evelin without intravenous contrast administration. Images were viewed in brain, subdural and bone [facility]. Automated dose lowering techniques and/or adjustment according to patient size were utilized for this exam. Comparison: Comparison is made to CTA head and neck 04/24/2022 Findings: Patient is status post left craniotomy. There is no evidence of acute hemorrhage or CT evidence of in farct. Arachnoid cyst at the anterior right temporal lobe is unchanged. Imaged portions of the paranasal sinuses and mastoid air cells are clear. The orbits appear normal. There are no acute fractures of the calvaria or scalp swelling. Impression: No acute intracranial hemorrhage, no evidence of acute territorial infarction or other acute intracra nial disease process. ACT 112: Negative or not required by law. Electronically signed by: Daron Terrell M.D. 08/01/2022 6:24 PM
[2022-08-01] MEDS ORDERED: VANCOMYCIN HCL 2,500 MG in SODIUM CHLORIDE 0.9% 500 ML IV ONE (18:34)
[2022-08-01] MEDS ORDERED: VANCOMYCIN CONSULT ACTIVE PRN (18:34)
[2022-08-01 18:41] LABS: Albumin Level 3.3 gm/dl (3.4-5.0); BUN Creatinine Ratio 22.8 (10-20); Bilirubin,Total 0.5 mg/dl (0.2-1.0); Calcium 8.6 mg/dl (8.5-10.1); Est GFR (African American) 113.1 ml/min; Est GFR (Non-African American) 97.6 ml/min; Globulin 3.3 gm/dl (2.5-4.0); Potassium 4.2 mmol/L (3.5-5.1); Total Protein 6.6 gm/dl (6.0-8.3)
[2022-08-01 18:47] LABS: Troponin I High Sensitivity 11.9 pg/ml (0-20)
[2022-08-01 19:30] LABS: Base Excess VBG 3.9 mEq/L; HCO3 VBG 31 mmol/L; Oxygen Saturation VBG < 60.0 %; PCO2 VBG 58 mmHg (38-50); PO2 VBG 23 mmHg; pH VBG 7.34 (7.36-7.41)
[2022-08-01] MEDS ORDERED: SODIUM CHLORIDE 0.9% 1000ML 1,000 ML IV ONE (19:31)
[2022-08-01 19:48] LABS: Appearance Urine Clear (Clear); Bilirubin Urine Negative (Negative); Blood Urine Negative (Negative); Color Urine Yellow; Glucose Urine UA 3+ (Negative); Ketones Urine Negative (Negative); Leukocyte Esterase Urine Negative (Negative); Nitrite Urine Negative (Negative); Protein Urine Negative (Negative); Specific Gravity Urine 1.016 (1.000-1.030); Urobilinogen Urine Negative (Negative)
[2022-08-01 20:31] LABS: Amphetamines+Metham, Urine Pos (Neg); Barbiturates, Urine Neg (Neg); Benzodiazepine, Urine Neg (Neg); Cocaine, Urine Neg (Neg); MDMA (Ecstacy), Urine Neg (Neg); Methadone, Urine Neg (Neg); Opiate, Urine Neg (Neg); Phencyclidine, Urine Neg (Neg)
--- NOTE | 2022-08-01 21:09 | History & Physical Report ---
Date of Service August 01, 2022 Assessment & Plan (1) Encephalopathy: Plan: Patient currently lethargic but cooperative on exam. Multifactorial : Hypercapnic respiratory failure, likely OHS, px with suspected ALEJANDRA waiting for formal diagnosis with upcoming sleep study next month Uncontrolled DM2, insulin requiring, suboptimal control as of 8.9 April 2022 Home neuropsychotropic medications, substance abuse contributory chronic diastolic heart failure secondary to nonischemic cardiomyopathy Possible right-sided heart failure, underlying pulmonary hypertension Bilateral LE cellulitis No overt sepsis for now Rule out DVT hx nonobstructive CAD as per records/ PVD hypertension, slightly elevated hx HCV sp failed treatment with interferon history of ocular toxoplasmosis anxiety/mood disorder, at baseline Medical telemetry Pulmonary consult Re: Respiratory failure Hold bupropion for sedation/confusion. Pharmacy glycemic control consult, update hemoglobin A1c Update TTE Continue home diuretic Doxycycline for LE cellulitis LE venous Dopplers rule out DVT PT OT eval DVT prophylaxis per Lovenox subcu Full code Patient sister requesting updates from providers. Joaquina Ayan, contact #[phone]. Text document was generated using [employer] for iPhone and Android voice recognition software. It may contain grammatical or spelling errors. Kindly contact undersigned for clarification of any documentation item in question. History of Present Illness Chief Complaint: Leg swelling, sleepy and disoriented Primary Care Provider: Willam Fofana, History obtained from patient, family, and records. Medical history significant for chronic diastolic heart failure secondary to nonischemic cardiomyopathy (EF 70% TTE 2019), nonobstructive CAD as per records, PVD, hypertension, DM2 insulin requiring, history of HCV sp failed treatment with interferon, history of ocular toxoplasmosis, anxiety/mood disorder, past history IVDU, history of methamphetamine use, possible ALEJANDRA as per records Last April 2022 for hyperglycemia and disequilibrium. Patient seen at [facility] sleep disorders clinic last February 2022 for snoring and fatigue symptoms. Overnight polysomnography split protocol recommended for suspected ALEJANDRA. Patient instructed to avoid driving while sleepy/drowsy. Outpatient sleep study contemplated on 09/07/2022. Last week, patient legs noted to be more swollen and painful than usual. Transient chest pain yesterday without unusual shortness of breath. Patient not sure about weight gain. Compliant with home medications, denies dietary discretion. No fever.. Patient complaining of chills. Patient also sleeping more than usual. Blood sugars as high as 400 at home despite patient compliance with regimen. Admits to methamphetamine intake. 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 Patient accompanied by sister to urgent care appointment today. Patient directed to ER for further evaluation. IV vancomycin administered at the ER for cellulitis. MEDICAL HISTORY: As above. SURGICAL HISTORY: Hernia repair, scalp laceration repair FAMILY HISTORY: Heart disease, diabetes. PERSONAL AND SOCIAL HISTORY: Nonsmoker. No chronic ETOH intake. Unemployed. war vet. Allergies Allergy/AdvReac Type Severity Reaction Status Date / Time permethrin Allergy Intermediate swelling Verified 08/01/22 20:58 shrimp Allergy Intermediate SWELLS Verified 08/01/22 20:58 sulfamethoxazole Allergy Unknown Verified 08/01/22 20:59 [From Bactrim] trimethoprim [From Bactrim] Allergy Unknown Verified 08/01/22 20:59 amoxicillin AdvReac Intermediate HIVES Verified 08/01/22 20:58 clavulanic acid AdvReac Intermediate HIVES Verified 08/01/22 20:58 insulin glargine AdvReac CHF Verified 08/01/22 20:59 [From Lantus U-100 Insulin] Home Medications Medication Instructions Recorded Confirmed Type ascorbic acid (vitamin C) 500 mg 1,000 mg PO DAILY 01/04/19 08/01/22 History tablet (Vitamin C) furosemide 40 mg tablet 80 mg PO QAM 01/04/19 08/01/22 History lisinopril 40 mg tablet 40 mg PO DAILY 01/04/19 08/01/22 History spironolactone 25 mg tablet 25 mg PO DAILY 01/04/19 08/01/22 History metoprolol succinate 50 mg 50 mg PO BID 07/13/19 08/01/22 History tablet,extended release 24 hr tamsulosin 0.4 mg capsule 0.4 mg PO DAILY 08/14/20 08/01/22 History fluticasone propionate 220 2 puff inhalation BID 04/24/22 08/01/22 History mcg/actuation HFA aerosol inhaler (Flovent HFA) insulin detemir U-100 100 unit/mL 70 unit subcut BID 04/24/22 08/01/22 History (3 mL) subcutaneous pen (Levemir FlexTouch U-100 Insulin) Chromium-Cinnamon 1 tab PO DAILY 08/01/22 08/01/22 History albuterol sulfate 90 mcg/actuation 2 puff inhalation Q4 PRN Shortness 08/01/22 08/01/22 History aerosol inhaler Of Breath Or Wheezing aspirin 81 mg tablet,delayed 81 mg PO DAILY 08/01/22 08/01/22 History release bupropion HCl 300 mg 24 hr tablet, 300 mg PO DAILY 08/01/22 08/01/22 History extended release empagliflozin 25 mg tablet 25 mg PO DAILY 08/01/22 08/01/22 History (Jardiance) furosemide 40 mg tablet (Lasix) 40 mg PO .QAFTERNOON 08/01/22 08/01/22 History insulin aspart U-100 100 unit/mL See Rx Instructions .Route .COMPLEX 08/01/22 08/01/22 History (3 mL) subcutaneous pen lactobacillus combination no.4 3 0 mmu cells PO DAILY 08/01/22 08/01/22 History billion cell capsule (Probiotic) metformin 750 mg tablet,extended 1,500 mg PO DAILY 08/01/22 08/01/22 History release 24 hr multivitamin 1 tab PO DAILY 08/01/22 08/01/22 History nitroglycerin 0.4 mg sublingual 0.4 mg sublingual DIRECTED PRN 08/01/22 08/01/22 History tablet (Nitrostat) Chest Pain sertraline 100 mg tablet 100 mg PO DAILY 08/01/22 08/01/22 History Past Med/Surg History Medical History (Updated 08/02/22 @ 08:28 by Paul Rider MD) Anxiety Congestive heart failure Depression Diabetes mellitus, type 2 Dysequilibrium H/O drug abuse Hepatitis C Hypertension Nonischemic cardiomyopathy "prior EF 30% per Epic records. echo 02/2015- EF 54%" Surgical History History of cardiac cath 03/2015 @ [facility], no stents follows with Dr. Monet History of colonoscopy History of tooth extraction History of umbilical hernia repair x2 History of wisdom tooth extraction Family History Mother Family history of diabetes mellitus Father Family history of diabetes mellitus Other No family history of adverse response to anesthesia Social History Smoking Status: Light tobacco smoker Cigarettes Per Day: Says he occasionally will smoke a cigar.; Second Hand Exposure: Yes; Hx Alcohol Use: Yes Alcohol type: beer, wine and hard liquor Hx Substance Use: Yes Last Used Substance Other:: States he has used substances for 30 years, last used meth couple weeks ago Preferred Language: Grenadian Communication Ability: Effective 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 Beliefs That Will Affect Care: None marital status: Single Current Living Situation: Alone Current Living Situation Comment: lives alone Other Information That Helps Us Care for You: No Feels Safe at Home: Yes Safety Concerns: Feels Safe At This Time Assistive Devices: None and Glasses Review of Systems Review of Systems: As per HPI, all other systems reviewed and negative Physical Exam Physical Exam: GENERAL: Comfortable, obese, pleasant, episodic lethargy, no respiratory distr ess SKIN: Normal color, warm HEENT: [place] palpebral conjunctivae, no ptosis, dry buccal mucosa NECK : Supple, short neck, no tenderness CHEST : Decreased breath sounds, no tenderness HEART : RRR, no obvious murmurs ABDOMEN: distention, nontender EXTREMITIES : Indurated LE swelling bilateral with minimal tenderness, no other conspicuous deformities noted NEUROLOGIC : Episodic lethargy, no facial asymmetry, gait and stance not assessed Results & Data Results & Data ([facility]) Vital Signs (Past 12 Hours) Vital Signs Temp Pulse Resp BP Pulse Ox 08/01/22 18:31 76 14 96 08/01/22 18:31 158/84 H 08/01/22 18:30 75 15 96 08/01/22 18:00 72 19 08/01/22 17:44 86 18 08/01/22 17:23 36.9 C 18 Laboratory Results Vital Signs - 24 hr 08/01/22 17:23 08/01/22 17:44 08/01/22 18:00 Temperature 36.9 C Temperature Source Oral Pulse Rate 86 72 Pulse Rate from SpO2 Sensor Respiratory Rate 18 18 19 Blood Pressure Blood Pressure Mean Pulse Oximetry Sepsis Recent Fever Within 48 Hours No Sepsis New/Unexplained Change in Mental Status N/A Sepsis Action Taken by Nursing No Action Required 08/01/22 18:30 08/01/22 18:31 08/01/22 18:31 Temperature Temperature Source Pulse Rate 75 76 Pulse Rate from SpO2 Sensor 71 76 Respiratory Rate 15 14 Blood Pressure 158/84 H Blood Pressure Mean 108 Pulse Oximetry 96 96 Sepsis Recent Fever Within 48 Hours Sepsis New/Unexplained Change in Mental Status Sepsis Action Taken by Nursing Laboratory Data Result diagrams: 08/01/22 18:00 08/01/22 18:00 Lab Results 08/01/22 08/01/22 08/01/22 Range/Units 18:00 18:00 18:00 WBC 10.05 (4.8-10.8) K/ul RBC 5.47 (4.63-6.08) M/uL Hgb 15.7 (14.0-18.0) g/dl Hct 47.1 (40.1-51.0) % MCV 86.1 (80.0-100.0) fL MCH 28.7 (25.0-34.0) pg MCHC 33.3 (32.0-36.0) g/dL RDW Std Deviation 40.9 (36.4-46.3) fL RDW Coeff of Marc 13.2 (11.5-14.5) % Plt Count 293 (130-400) K/uL MPV 9.6 (9.4-12.4) fL Immature Gran % (Auto) 0.5 % Neut % (Auto) 57.4 % Lymph % (Auto) 29.1 % [place] % (Auto) 6.7 % Eos % (Auto) 4.9 % Baso % (Auto) 1.4 % Neut # (Auto) 5.78 (1.4-6.5) K/uL Lymph # (Auto) 2.92 (1.2-3.4) K/uL [place] # (Auto) 0.67 (0.24-0.82) K/uL Eos # (Auto) 0.49 (0-0.50) K/uL Baso # (Auto) 0.14 (0-0.2) K/uL Immature Gran # (Auto) 0.05 H (0.00-0.02) K/uL VBG pH (7.36-7.41) VBG pCO2 (38-50) mmHg VBG pO2 mmHg VBG HCO3 mmol/L VBG O2 Saturation % VBG Base Excess mEq/L Sodium 135 L (136-145) mmol/L Potassium 4.2 (3.5-5.1) mmol/L Chloride 103 (98-107) mmol/L Carbon Dioxide 24 (21-32) mmol/L Anion Gap 8 (3-11) BUN 18 (6-23) mg/dl Creatinine 0.79 (0.6-1.4) mg/dl Est Cr Clr Drug Dosing 134.0 ml/min Est GFR ( Amer) 113.1 ml/min Est GFR (Non-Af Amer) 97.6 ml/min BUN/Creatinine Ratio 22.8 H (10-20) Glucose 231 H (70-99(Fasting)) mg/dl Lactate (0.4-2.0) mmol/L Calcium 8.6 (8.5-10.1) mg/dl Magnesium 2.0 (1.7-2.4) mg/dl Total Bilirubin 0.5 (0.2-1.0) mg/dl AST 21 (13-39) U/L ALT 19 (7-52) U/L Alkaline Phosphatase 83 (34-104) U/L Ammonia 35.0 (18-72) umol/L Troponin I High Sens 11.9 (0-20) pg/ml B-Natriuretic Peptide (0-100) pg/ml Total Protein 6.6 (6.0-8.3) gm/dl Albumin 3.3 L (3.4-5.0) gm/dl Globulin 3.3 (2.5-4.0) gm/dl Albumin/Globulin Ratio 1.0 (0.9-2) Procalcitonin (0-0.5) ng/ml TSH (0.300-4.500) uIu/ml Urine Color Urine Appearance (Clear) Urine pH (4.5-7.5) Ur Specific [place] (1.000-1.030) Urine Protein (Negative) Urine Glucose (UA) (Negative) Urine Ketones (Negative) Urine Blood (Negative) Urine Nitrite (Negative) Urine Bilirubin (Negative) Urine Urobilinogen (Negative) Ur Leukocyte Esterase (Negative) SARS-CoV-2, RNA, NAAT (NEGATIVE) 08/01/22 08/01/22 08/01/22 Range/Units 18:00 18:00 18:00 WBC (4.8-10.8) K/ul RBC (4.63-6.08) M/uL Hgb (14.0-18.0) g/dl Hct (40.1-51.0) % MCV (80.0-100.0) fL MCH (25.0-34.0) pg MCHC (32.0-36.0) g/dL RDW Std Deviation (36.4-46.3) fL RDW Coeff of Marc (11.5-14.5) % Plt Count (130-400) K/uL MPV (9.4-12.4) fL Immature Gran % (Auto) % Neut % (Auto) % Lymph % (Auto) % [place] % (Auto) % Eos % (Auto) % Baso % (Auto) % Neut # (Auto) (1.4-6.5) K/uL Lymph # (Auto) (1.2-3.4) K/uL [place] # (Auto) (0.24-0.82) K/uL Eos # (Auto) (0-0.50) K/uL Baso # (Auto) (0-0.2) K/uL Immature Gran # (Auto) (0.00-0.02) K/uL VBG pH (7.36-7.41) VBG pCO2 (38-50) mmHg VBG pO2 mmHg VBG HCO3 mmol/L VBG O2 Saturation % VBG Base Excess mEq/L Sodium (136-145) mmol/L PotassiumB (3.5-5.1) mmol/L Chloride (98-107) mmol/L Carbon Dioxide (21-32) mmol/L Anion Gap (3-11) BUN (6-23) mg/dl Creatinine (0.6-1.4) mg/dl Est Cr Clr Drug Dosing ml/min Est GFR ( Amer) ml/min Est GFR (Non-Af Amer) ml/min BUN/Creatinine Ratio (10-20) Glucose (70-99(Fasting)) mg/dl Lactate (0.4-2.0) mmol/L Calcium (8.5-10.1) mg/dl Magnesium (1.7-2.4) mg/dl Total Bilirubin (0.2-1.0) mg/dl AST (13-39) U/L ALT (7-52) U/L Alkaline Phosphatase (34-104) U/L Ammonia (18-72) umol/L Troponin I High Sens (0-20) pg/ml B-Natriuretic Peptide 30 (0-100) pg/ml Total Protein (6.0-8.3) gm/dl Albumin (3.4-5.0) gm/dl Globulin (2.5-4.0) gm/dl Albumin/Globulin Ratio (0.9-2) Procalcitonin < 0.05 (0-0.5) ng/ml TSH 2.539 (0.300-4.500) uIu/ml Urine Color Urine Appearance (Clear) Urine pH (4.5-7.5) Ur Specific [place] (1.000-1.030) Urine Protein (Negative) Urine Glucose (UA) (Negative) Urine Ketones (Negative) Urine Blood (Negative) Urine Nitrite (Negative) Urine Bilirubin (Negative) Urine Urobilinogen (Negative) Ur Leukocyte Esterase (Negative) SARS-CoV-2, RNA, NAAT (NEGATIVE) 08/01/22 08/01/22 08/01/22 Range/Units 18:00 18:42 19:17 WBC (4.8-10.8) K/ul RBC (4.63-6.08) M/uL Hgb (14.0-18.0) g/dl Hct (40.1-51.0) % MCV (80.0-100.0) fL MCH (25.0-34.0) pg MCHC (32.0-36.0) g/dL RDW Std Deviation (36.4-46.3) fL RDW Coeff of Marc (11.5-14.5) % Plt CountB (130-400) K/uL MPV (9.4-12.4) fL Immature Gran % (Auto) % Neut % (Auto) % Lymph % (Auto) % [place] % (Auto) % Eos % (Auto) B % Baso % (Auto) % Neut # (Auto) (1.4-6.5) K/uL Lymph # (Auto) (1.2-3.4) K/uL [place] # (Auto) (0.24-0.82) K/uL Eos # (Auto) (0-0.50) K/uL Baso # (Auto) (0-0.2) K/uL Immature Gran # (Auto) (0.00-0.02) K/uL VBG pH 7.34 L (7.36-7.41) VBG pCO2 58 H (38-50) mmHg VBG pO2 23 mmHg VBG HCO3 31 mmol/L VBG O2 Saturation < 60.0 % VBG Base Excess 3.9 mEq/L Sodium (136-145) mmol/L Potassium (3.5-5.1) mmol/L Chloride (98-107) mmol/L Carbon Dioxide (21-32) mmol/L Anion Gap (3-11) BUN (6-23) mg/dl Creatinine (0.6-1.4) mg/dl D Est Cr Clr Drug Dosing ml/min Est GFR ( Amer) ml/min Est GFR (Non-Af Amer) ml/min BUN/Creatinine Ratio (10-20) Glucose (70-99(Fasting)) mg/dl Lactate 0.8 (0.4-2.0) mmol/L Calcium (8.5-10.1) mg/dl Magnesium (1.7-2.4) mg/dl Total Bilirubin (0.2-1.0) mg/dl AST (13-39) U/L ALT (7-52) U/L Alkaline Phosphatase (34-104) U/L Ammonia (18-72) umol/L Troponin I High Sens (0-20) pg/ml B-Natriuretic Peptide (0-100) pg/ml Total Protein (6.0-8.3) gm/dl Albumin (3.4-5.0) gm/dl Globulin (2.5-4.0) gm/dl Albumin/Globulin Ratio (0.9-2) Procalcitonin (0-0.5) ng/ml TSH (0.300-4.500) uIu/ml Urine Color Urine Appearance (Clear) Urine pH (4.5-7.5) Ur Specific [place] (1.000-1.030) Urine Protein B (Negative) Urine Glucose (UA) (Negative) Urine Ketones (Negative) Urine Blood (Negative) Urine Nitrite (Negative) Urine Bilirubin (Negative) Urine Urobilinogen (Negative) Ur Leukocyte Esterase (Negative) SARS-CoV-2, RNA, NAAT NEGATIVE (NEGATIVE) 08/01/22 Range/Units 19:34 WBC (4.8-10.8) K/ul RBC (4.63-6.08) M/uL Hgb (14.0-18.0) g/dl Hct (40.1-51.0) % MCV (80.0-100.0) fL MCH (25.0-34.0) pg MCHC (32.0-36.0) g/dL RDW Std Deviation (36.4-46.3) fL RDW Coeff of Marc (11.5-14.5) % Plt Count (130-400) K/uL MPV (9.4-12.4) fL Immature Gran % (Auto) % Neut % (Auto) % Lymph % (Auto) % [place] % (Auto) % Eos % (Auto) % Baso % (Auto) % Neut # (Auto) (1.4-6.5) K/uL Lymph # (Auto) (1.2-3.4) K/uL [place] # (Auto) (0.24-0.82) K/uL Eos # (Auto) (0-0.50) K/uL Baso # (Auto) D (0-0.2) K/uL Immature Gran # (Auto) (0.00-0.02) K/uL VBG pH (7.36-7.41) VBG pCO2 (38-50) mmHg VBG pO2 mmHg VBG HCO3 mmol/L VBG O2 Saturation % VBG Base Excess mEq/L Sodium (136-145) mmol/L Potassium (3.5-5.1) mmol/L Chloride (98-107) mmol/L Carbon Dioxide (21-32) mmol/L Anion Gap (3-11) BUN (6-23) mg/dl CreatinineB (0.6-1.4) mg/dl Est Cr Clr Drug Dosing ml/min Est GFR ( Amer) ml/min Est GFR (Non-Af Amer) ml/min BUN/Creatinine Ratio (10-20) Glucose (70-99(Fasting)) mg/dl Lactate (0.4-2.0) mmol/L Calcium (8.5-10.1) mg/dl Magnesium (1.7-2.4) mg/dl Total Bilirubin (0.2-1.0) mg/dl AST (13-39) U/L ALT (7-52) U/L Alkaline Phosphatase (34-104) U/L Ammonia (18-72) umol/L Troponin I High Sens (0-20) pg/ml B-Natriuretic Peptide (0-100) pg/ml Total Protein (6.0-8.3) gm/dl Albumin (3.4-5.0) gm/dl Globulin (2.5-4.0) gm/dl Albumin/Globulin Ratio (0.9-2) Procalcitonin (0-0.5) ng/ml TSH (0.300-4.500) uIu/ml Urine Color Yellow Urine Appearance Clear (Clear) Urine pH 5.0 (4.5-7.5) Ur Specific [place] 1.016 (1.000-1.030) Urine Protein Negative (Negative) Urine Glucose (UA) 3+ H (Negative) Urine Ketones Negative (Negative) Urine Blood Negative (Negative) Urine Nitrite Negative (Negative) Urine Bilirubin Negative (Negative) Urine Urobilinogen Negative (Negative) Ur Leukocyte Esterase Negative (Negative) SARS-CoV-2, RNA, NAAT (NEGATIVE) Imaging Data Radiologist's Impression: Chest X-Ray 08/01/22 17:51 XR chest 1V portable CLINICAL HISTORY: leg swelling TECHNIQUE: Single frontal radiograph of the chest was obtained. Comparison: Comparison is made to chest radiograph 04/24/2022 FINDINGS: Exam is limited by underpenetration. Cardiomegaly is noted. The lungs are clear. No evidence of pleural effusion or pneumothorax. IMPRESSION: No acute chest disease. Cardiomegaly is noted. ACT 112: Negative or not required by law. Electronically signed by: Daron Terrell M.D. 08/01/2022 6:[address] 08/01/22 17:51 CT head/brain wo con CLINICAL HISTORY: weak, confused Technique: Contiguous axial CT images of the head were acquired from the base of the skull to the vertex without intravenous contrast administration. Images were viewed in brain, subdural and bone windows. Automated dose lowering techniques and/or adjustment according to patient size were utilized for this exam. Comparison: Comparison is made to CTA head and neck 04/24/2022 Findings: Patient is status post left craniotomy. There is no evidence of acute hemorrhage or CT evidence of infarct. Arachnoid cyst at the anterior right temporal lobe is unchanged. Imaged portions of the paranasal sinuses and mastoid air cells are clear. The orbits appear normal. There are no acute fractures of the calvaria or scalp swelling. Impression: No acute intracranial hemorrhage, no evidence of acute territorial infarction or other acute intracranial disease process. ACT 112: Negative or not required by law. Electronically signed by: Daron Terrell M.D. 08/01/2022 6:24 PM Diagnostic Findings EKG as per my interpretation : Rate 85, NSR, RAD, no ischemia
[2022-08-01] MEDS ORDERED: ALBUMIN 25% 100 mL 25 GM/100 ML VIAL IV ONE (21:34)
[2022-08-01] MEDS ORDERED: DOXYCYCLINE HYCLATE 100 MG in DEXTROSE 5% 100 ML IV STA (21:43)
[2022-08-02] MEDS ORDERED: GLUCAGON FOR INJ 1 MG VIAL SQ PRN
[2022-08-02] MEDS ORDERED: GLUCOSE 10 TAB/TUBE PO PRN
[2022-08-02] MEDS ORDERED: ACETAMINOPHEN W/CODEINE #3 1 TAB PO PRN
[2022-08-02] MEDS ORDERED: NON-FORMULARY PATIENT'S OWN MED STA
[2022-08-02] MEDS ORDERED: GLUCOSE 40% GEL 15 GM TUBE PO PRN
[2022-08-02] MEDS ORDERED: PROMETHAZINE HCL 12.5 MG in SODIUM CHLORIDE 0.9% 50 ML IV PRN
[2022-08-02] MEDS ORDERED: DEXTROSE 50% 50 ML SYRINGE IV PRN
[2022-08-02] MEDS ORDERED: NITROGLYCERIN SL 0.4 MG/TAB TAB SL PRN
[2022-08-02] MEDS ORDERED: CARBOHYDRATES FOR HYPOGLYCEMIA PO PRN
[2022-08-02] MEDS ORDERED: ACETAMINOPHEN 325 MG TAB PO PRN (00:39)
[2022-08-02] MEDS ORDERED: PHARMACY GLYCEMIC MGMT CONSULT PRN (00:44)
[2022-08-02] MEDS: METOPROLOL SUCC 50MG EXT REL TAB PO SCH ×3 (00:59→20:18)
[2022-08-02] MEDS ORDERED: INSULIN HUMAN NPH SC ONE (01:00)
[2022-08-02] MEDS: INSULIN ASPART PER UNIT SC SCH ×5 (01:21→20:03)
[2022-08-02] MEDS ORDERED: INSULIN ASPART PER UNIT SC SCH (04:00)
--- NOTE | 2022-08-02 06:07 | Ultrasound Report ---
ULTRASOUND BILATERAL LOWER EXTREMITY VENOUS CLINICAL HISTORY: Location edema. COMPARISON STUDY: No priors. TECHNIQUE: Real-time, grayscale, and color Doppler sonography of the deep veins of the right and left lower extremity was performed from the inguinal crease to the calf. Compression and augmentation wer e utilized. FINDINGS: There is no sonographic evidence of deep venous thrombosis identified in the right or left lower extremity. The common femoral, superficial femoral, and popliteal veins are patent and normally compressible bilaterally. The greater saphenous vein and the profunda femoris vein at the junction w ith the common femoral vein are clear in both legs. The visualized calf veins are patent bilaterally. IMPRESSION: There is no sonographic evidence of deep venous thrombosis identified in the right or lef t lower extremity. ACT 112: Negative or not required by law. Electronically signed by: Braulio Hopkins M.D. 08/02/2022 6:06 AM
--- NOTE | 2022-08-02 07:11 | Electrocardiogram Report ---
Test Reason : Blood Pressure : / mmHG Vent. Rate : 086 BPM Atrial Rate : 086 BPM P-R Int : 184 ms QRS Dur : 084 ms QT Int : 396 ms P-R-T Axes : 074 100 064 degrees QTc Int : 473 ms Sinus rhythm with Premature atrial complexes Rightward axis Borderline ECG When compared with ECG of 24-APR-2022 17:55, QT has lengthened Confirmed by Jerome Oneil ([id number]) on 08/02/2022 7:10:45 AM Referred By: REFERRED SELF Confirmed By:Hayden Oneil
[2022-08-02 07:22] LABS: Basophils # (auto) 0.12 K/uL (0-0.2); Basophils % (auto) 1.4 %; Eosinophils # (auto) 0.54 K/uL (0-0.50); Eosinophils % (auto) 6.2 %; Hematocrit (blood only) 44.4 % (40.1-51.0); Immature Granulocytes # (auto) 0.03 K/uL (0.00-0.02); Immature Granulocytes % (auto) 0.3 %; Lymphocytes # (auto) 2.76 K/uL (1.2-3.4); Lymphocytes % (auto) 31.5 %; Mean Corpuscular Hemoglobin 29.1 pg (25.0-34.0); Mean Corpuscular Hgb Conc 33.8 g/dL (32.0-36.0); Mean Corpuscular Volume 86.2 fL (80.0-100.0); Mean Platelet Volume 9.6 fL (9.4-12.4); Monocytes # (auto) 0.77 K/uL (0.24-0.82); Monocytes % (auto) 8.8 %; Neutrophils # (auto) 4.54 K/uL (1.4-6.5); Neutrophils % (auto) 51.8 %; Platelet Count 279 K/uL (130-400); RDW Coefficient of Variation 13.2 % (11.5-14.5); RDW Standard Deviation 41.4 fL (36.4-46.3); Red Blood Count 5.15 M/uL (4.63-6.08); White Blood Count 8.76 K/ul (4.8-10.8)
[2022-08-02 07:28] LABS: Base Excess ABG 1.9 mEq/L (-9-1.8); HCO3 ABG 27 mmol/L (19-24); Oxygen Saturation ABG 95.8 % (90-95); PCO2 ABG 41 mmHg (35-46); PO2 ABG 72 mmHg (80-95); pH ABG 7.42 (7.35-7.45)
[2022-08-02 07:45] LABS: BUN Creatinine Ratio 22.9 (10-20); Calcium 8.7 mg/dl (8.5-10.1); Creatinine Clr Calc Pharmacy 148.8 ml/min; Est GFR (African American) 118.9 ml/min; Est GFR (Non-African American) 102.6 ml/min; Potassium 4.3 mmol/L (3.5-5.1)
[2022-08-02] MEDS ORDERED: INSULIN HUMAN NPH SC SCH ×3 (08:00→17:00)
[2022-08-02 08:17] LABS: Allen Test Pos (Pos)
--- NOTE | 2022-08-02 08:31 | Pulmonary Consultation ---
Date of Consultation August 02, 2022 Assessment & Plan (1) Hypercapnic respiratory failure: Plan Impression: 62-year-old male with hypercapnic respiratory failure which may be multifactorial. Agree that there is likely a component of sleep disordered breathing present. Unclear how much of his encephalopathy is attributable to his mild elevation in CO2 levels. Recommendations: 1. Hypercapnic respiratory failure: Recommend BiPAP 10 over 5 at night while sleeping as well as as needed during the day for encephalopathy or if the patient is sleeping during the day. 2. The patient will need to continue to follow with [facility] sleep medicine in the outpatient setting. Its unclear if he will require BiPAP or if CPAP will be sufficient. 3. We will check venous blood gas in the morning to follow-up on results of his overnight positive airway pressure therapy. 4. Exercise and weight loss were recommended. 5. Additional evaluation for his encephalopathy is deferred to the primary admitting service. 6. Depending on clinical response, additional outpatient evaluation for hypercapnic respiratory failure may be appropriate if response to positive airway pressure is suboptimal review of sleep studies does not demonstrate significant pathology. These may include pulmonary function testing including assessment of neuromuscular strength. We will follow-up with the blood gas in the morning. Feel free to contact us with questions or concerns. History of Present Illness Attending Physician: Zak eDnny MD History of Present Illness Asked by hospitalist to evaluate this patient with hypercarbic respiratory failure. History is obtained from reviewed electronic medical record as well as discussion with the patient. The patient is a 62-year-old male who is currently being followed in the [facility] sleep clinic for suspicion of sleep disordered breathing. He has a sleep study scheduled in the outpatient setting but this is not yet been accomplished. He presented to the emergency room yesterday evening with disorientation transient chest pain, lower extremity edema, and hyperglycemia. Of note the patient does use methamphetamine in the outpatient setting. He was found to have a mildly elevated CO2 level on blood gas. He was admitted to the hospitalist service for management of his encephalopathy and treatment of his underlying cellulitis. The patient states he does not have CPAP at home. He is unable to provide much additionally in the way of sleep history due to being somewhat somnolent. He has not been on CPAP or BiPAP overnight. Allergies Allergy/AdvReac Type Severity Reaction Status Date / Time permethrin Allergy Intermediate swelling Verified 08/01/22 20:58 shrimp Allergy Intermediate SWELLS Verified 08/01/22 20:58 sulfamethoxazole Allergy Unknown Verified 08/01/22 20:59 [From Bactrim] trimethoprim [From Bactrim] Allergy Unknown Verified 08/01/22 20:59 amoxicillin AdvReac Intermediate HIVES Verified 08/01/22 20:58 clavulanic acid AdvReac Intermediate HIVES Verified 08/01/22 20:58 insulin glargine AdvReac CHF Verified 08/01/22 20:59 [From Lantus U-100 Insulin] Home Medications Medication Instructions Recorded Confirmed Type ascorbic acid (vitamin C) 500 mg 1,000 mg PO DAILY 01/04/19 08/01/22 History tablet (Vitamin C) furosemide 40 mg tablet 80 mg PO QAM 01/04/19 08/01/22 History lisinopril 40 mg tablet 40 mg PO DAILY 01/04/19 08/01/22 History spironolactone 25 mg tablet 25 mg PO DAILY 01/04/19 08/01/22 History metoprolol succinate 50 mg 50 mg PO BID 07/13/19 08/01/22 History tablet,extended release 24 hr tamsulosin 0.4 mg capsule 0.4 mg PO DAILY 08/14/20 08/01/22 History fluticasone propionate 220 2 puff inhalation BID 04/24/22 08/01/22 History mcg/actuation HFA aerosol inhaler (Flovent HFA) insulin detemir U-100 100 unit/mL 70 unit subcut BID 04/24/22 08/01/22 History (3 mL) subcutaneous pen (Levemir FlexTouch U-100 Insulin) Chromium-Cinnamon 1 tab PO DAILY 08/01/22 08/01/22 History albuterol sulfate 90 mcg/actuation 2 puff inhalation Q4 PRN Shortness 08/01/22 08/01/22 History aerosol inhaler Of Breath Or Wheezing aspirin 81 mg tablet,delayed 81 mg PO DAILY 08/01/22 08/01/22 History release bupropion HCl 300 mg 24 hr tablet, 300 mg PO DAILY 08/01/22 08/01/22 History extended release empagliflozin 25 mg tablet 25 mg PO DAILY 08/01/22 08/01/22 History (Jardiance) furosemide 40 mg tablet (Lasix) 40 mg PO .QAFTERNOON 08/01/22 08/01/22 History insulin aspart U-100 100 unit/mL See Rx Instructions .Route .COMPLEX 08/01/22 08/01/22 History (3 mL) subcutaneous pen lactobacillus combination no.4 3 0 mmu cells PO DAILY 08/01/22 08/01/22 History billion cell capsule (Probiotic) metformin 750 mg tablet,extended 1,500 mg PO DAILY 08/01/22 08/01/22 History release 24 hr multivitamin 1 tab PO DAILY 08/01/22 08/01/22 History nitroglycerin 0.4 mg sublingual 0.4 mg sublingual DIRECTED PRN 08/01/22 08/01/22 History tablet (Nitrostat) Chest Pain sertraline 100 mg tablet 100 mg PO DAILY 08/01/22 08/01/22 History Patient History Medical History (Updated 08/02/22 @ 08:28 by Paul Rider MD) Anxiety Congestive heart failure Depression Diabetes mellitus, type 2 Dysequilibrium H/O drug abuse Hepatitis C Hypertension Nonischemic cardiomyopathy "prior EF 30% per Epic records. echo 02/2015- EF 54%" Surgical History History of cardiac cath 03/2015 @ [facility], no stents follows with Dr. Monet History of colonoscopy History of tooth extraction History of umbilical hernia repair x2 History of wisdom tooth extraction Family History Mother Family history of diabetes mellitus Father Family history of diabetes mellitus Other No family history of adverse response to anesthesia Social History Smoking Status: Light tobacco smoker Cigarettes Per Day: Says he occasionally will smoke a cigar.; Second Hand Exposure: Yes; Hx Alcohol Use: Yes Alcohol type: beer, wine and hard liquor Hx Substance Use: Yes Last Used Substance Other:: States he has used substances for 30 years, last used meth couple weeks ago Preferred Language: Somali Communication Ability: Effective Log Buncher Required: No Beliefs That Will Affect Care: None marital status: Single Current Living Situation: Alone Current Living Situation Comment: lives alone Other Information That Helps Us Care for You: No Feels Safe at Home: Yes Safety Concerns: Feels Safe At This Time Assistive Devices: None and Glasses Review of Systems Review of Systems: Unobtainable due to reduced consciousness Physical Exam Constitutional: + morbidly obese and + lethargic Neck: trachea midline, no thyromegaly Respiratory: normal respiratory effort, lungs clear to auscultation Cardiovascular: RRR, no murmur, no edema Gastrointestinal (Abdomen): normal bowel sounds, soft, nontender, no hepatosplenomegaly Musculoskeletal: Extremities: extremities normal to inspection Skin: no rashes, warm and dry Neurologic: Nonfocal exam Lymphatic: no cervical lymphadenopathy Results & Data Results & Data ([facility]) Vital Signs (Past 12 Hours) Vital Signs Temp Pulse Pulse Resp BP BP BP 08/02/22 07:11 37.1 C 75 19 139/82 08/02/22 03:40 36.5 C 79 18 146/66 H 08/01/22 23:40 36.5 C 84 158/85 H 08/02/22 00:39 08/02/22 01:35 87 08/02/22 01:22 85 145/80 H 08/01/22 22:30 81 20 08/01/22 22:30 162/71 H 08/01/22 22:01 120/94 08/01/22 22:01 104 H 22 08/01/22 21:30 81 20 08/01/22 21:30 161/84 H 08/01/22 21:10 100 H 13 152/104 H Pulse Ox Pulse Ox O2 Del Method O2 Del Method 08/02/22 07:11 93 Room Air 08/02/22 03:40 93 Room Air 08/01/22 23:40 95 Room Air 08/02/22 00:39 97 Room Air 08/02/22 01:35 08/02/22 01:22 08/01/22 22:30 94 Room Air 08/01/22 22:30 08/01/22 22:01 08/01/22 22:01 96 08/01/22 21:30 94 08/01/22 21:30 08/01/22 21:10 97 Room Air Critical Care Results & Data Vital Signs (Past 12 Hours) Vital Signs Temp Pulse Pulse Resp BP BP BP 08/02/22 07:11 37.1 C 75 19 139/82 08/02/22 03:40 36.5 C 79 18 146/66 H 08/01/22 23:40 36.5 C 84 158/85 H 08/02/22 00:39 08/02/22 01:35 87 08/02/22 01:22 85 145/80 H 08/01/22 22:30 81 20 08/01/22 22:30 162/71 H 08/01/22 22:01 120/94 08/01/22 22:01 104 H 22 08/01/22 21:30 81 20 08/01/22 21:30 161/84 H 08/01/22 21:10 100 H 13 152/104 H Pulse Ox Pulse Ox O2 Del Method O2 Del Method 08/02/22 07:11 93 Room Air 08/02/22 03:40 93 Room Air 08/01/22 23:40 95 Room Air 08/02/22 00:39 97 Room Air 08/02/22 01:35 08/02/22 01:22 08/01/22 22:30 94 Room Air 08/01/22 22:30 08/01/22 22:01 08/01/22 22:01 96 08/01/22 21:30 94 08/01/22 21:30 08/01/22 21:10 97 Room Air Lab & Micro Results (Past 24 Hours) RBC 5.15 M/uL (4.63-6.08) 08/02/22 WBC 8.76 K/ul (4.8-10.8) 08/02/22 Hgb 15.0 g/dl (14.0-18.0) 08/02/22 Hct 44.4 % (40.1-51.0) 08/02/22 MCV 86.2 fL (80.0-100.0) 08/02/22 MCH 29.1 pg (25.0-34.0) 08/02/22 MCHC 33.8 g/dL (32.0-36.0) 08/02/22 RDW Standard Deviation 41.4 fL (36.4-46.3) 08/02/22 RDW Coefficient of Variation 13.2 % (11.5-14.5) 08/02/22 Plt Count 279 K/uL (130-400) 08/02/22 MPV 9.6 fL (9.4-12.4) 08/02/22 Neutrophils (%) (Auto) 51.8 % 08/02/22 Lymphocytes (%) (Auto) 31.5 % 08/02/22 Monocytes # (Auto) 0.77 K/uL (0.24-0.82) 08/02/22 Eosinophils # (Auto) 0.54 K/uL (0-0.50) H 08/02/22 Immature Granulocyte % (Auto) 0.3 % 08/02/22 Neutrophils # (Auto) 4.54 K/uL (1.4-6.5) 08/02/22 Lymphocytes # (Auto) 2.76 K/uL (1.2-3.4) 08/02/22 Monocytes # (Auto) 0.77 K/uL (0.24-0.82) 08/02/22 Eosinophils # (Auto) 0.54 K/uL (0-0.50) H 08/02/22 Basophils # (Auto) 0.12 K/uL (0-0.2) 08/02/22 Immature Granulocyte # (Auto) 0.03 K/uL (0.00-0.02) H 08/02 Na 139 mmol/L (136-145) 08/02/22 K 4.3 mmol/L (3.5-5.1) 08/02/22 Cl 109 mmol/L (98-107) H 08/02/22 CO2 26 mmol/L (21-32) 08/02/22 Anion Gap 4 (3-11) 08/02/22 BUN 16 mg/dl (6-23) 08/02/22 Creatinine 0.70 mg/dl (0.6-1.4) 08/02/22 Estimated GFR ( Amer) 118.9 ml/min 08/02/22 Estimated GFR (Non-Af Amer) 102.6 ml/min 08/02/22 BUN/Creatinine Ratio 22.9 (10-20) H 08/02/22 Glu 160 mg/dl (70-99(Fasting)) H 08/02/22 Ca 8.7 mg/dl (8.5-10.1) 08/02/22 Total Bilirubin 0.5 mg/dl (0.2-1.0) 08/01/22 AST 21 U/L (13-39) 08/01/22 ALT 19 U/L (7-52) 08/01/22 Alkaline Phosphatase 83 U/L (34-104) 08/01/22 TP 6.6 gm/dl (6.0-8.3) 08/01/22 Albumin 3.3 gm/dl (3.4-5.0) L 08/01/22 Globulin 3.3 gm/dl (2.5-4.0) 08/01/22 Albumin/Globulin Ratio 1.0 (0.9-2) 08/01/22 Mg 2.0 mg/dl (1.7-2.4) 08/01/22 18:00 Calcium Level 8.7 mg/dl (8.5-10.1) 08/02/22 07:06 Venous Blood pH 7.34 (7.36-7.41) L 08/01/22 19:17 Venous Blood Partial Pressure CO2 58 mmHg (38-50) H 08/01/22 19 :17 Venous Blood Partial Pressure O2 23 mmHg 08/01/22 19:17 Venous Blood HCO3 31 mmol/L 08/01/22 19:17 Venous Blood Base Excess 3.9 mEq/L 08/01/22 19:17 Venous Blood Oxygen Saturation < 60.0 % 08/01/22 19:17 Arterial Blood pH 7.42 (7.35-7.45) 08/02/22 07:11 Arterial Blood Partial Pressure CO2 41 mmHg (35-46) 08/02/22 07 :11 Arterial Blood Partial Pressure O2 72 mmHg (80-95) L 08/02/22 0 7:11 Arterial Blood HCO3 27 mmol/L (19-24) H 08/02/22 07:11 Arterial Blood Base Excess 1.9 mEq/L (-9-1.8) H 08/02/22 07:11 Arterial Blood Oxygen Saturation 95.8 % (90-95) H 08/02/22 07:1 1 Blood Gas Oxygen Given Room Air 08/02/22 07:11 Clyde Test Pos (Pos) 08/02/22 07:11 Diagnostic Findings (Past 24 Hours) Chest X-Ray 08/01/22 17:51 XR chest 1V portable CLINICAL HISTORY: leg swelling TECHNIQUE: Single frontal radiograph of the chest was obtained. Comparison: Comparison is made to chest radiograph 04/24/2022 FINDINGS: Exam is limited by underpenetration. Cardiomegaly is noted. The lungs are clear. No evidence of pleural effusion or pneumothorax. IMPRESSION: No acute chest disease. Cardiomegaly is noted. ACT 112: Negative or not required by law. Electronically signed by: Daron Terrell M.D. 08/01/2022 6:[address] 08/01/22 17:51 CT head/brain wo con CLINICAL HISTORY: weak, confused Technique: Contiguous axial CT images of the head were acquired from the base of the skull to the vertex without intravenous contrast administration. Images were viewed in brain, subdural and bone windows. Automated dose lowering techniques and/or adjustment according to patient size were utilized for this exam. Comparison: Comparison is made to CTA head and neck 04/24/2022 Findings: Patient is status post left craniotomy. There is no evidence of acute hemorrhage or CT evidence of infarct. Arachnoid cyst at the anterior right temporal lobe is unchanged. Imaged portions of the paranasal sinuses and mastoid air cells are clear. The orbits appear normal. There are no acute fractures of the calvaria or scalp swelling. Impression: No acute intracranial hemorrhage, no evidence of acute territorial infarction or other acute intracranial disease process. ACT 112: Negative or not required by law. Electronically signed by: Daron Terrell M.D. 08/01/2022 6:24 PM Venous Doppler Study 08/01/22 21:33 ULTRASOUND BILATERAL LOWER EXTREMITY VENOUS CLINICAL HISTORY: Location edema. COMPARISON STUDY: No priors. TECHNIQUE: Real-time, grayscale, and color Doppler sonography of the deep veins of the right and left lower extremity was performed from the inguinal crease to the calf. Compression and augmentation were utilized. FINDINGS: There is no sonographic evidence of deep venous thrombosis identified in the right or left lower extremity. The common femoral, superficial femoral, and popliteal veins are patent and normally compressible bilaterally. The greater saphenous vein and the profunda femoris vein at the junction with the common femoral vein are clear in both legs. The visualized calf veins are patent bilaterally. IMPRESSION: There is no sonographic evidence of deep venous thrombosis identified in the right or left lower extremity. ACT 112: Negative or not required by law. Electronically signed by: Braulio Hopkins M.D. 08/02/2022 6:06 AM I & O Totals 24 Hours 08/01/22 08/02/22 08/03/22 06:59 06:59 06:59 Intake Total 1082 / 1082 Output Total 1380 / 1380 425 / 425 Balance -298 / -298 -425 / -425 Cumulative 08/01/22 17:19 thru 08/02/22 08:17 Intake Total 1082 Output Total 1805 Balance -723 RT Ventilator Mngmt (Last Documented) Ventilator Ordered Settings Respiratory Rate 19 08/02/22 07:11 Ventilator - PT Measurements Respiratory Rate 19 PG Care Time/CCT Total # of Minutes Spent Total Time Spent with Patient: Total time spent is greater than 50% in coordination of care (as documented) at patient's floor/unit and/or counseling patient: Coding Level of Care Code 08730 Inpt Consult Level 4 Diagnoses Hypercapnic respiratory failure J96.92
[2022-08-02] MEDS: lisinopril 40 MG TAB PO SCH (08:58)
[2022-08-02] MEDS: ASPIRIN 81 MG ECTAB PO SCH (08:58)
[2022-08-02] MEDS: ENOXAPARIN INJ 40 MG/0.4 ML SYR SQ SCH (08:58)
[2022-08-02] MEDS: SERTRALINE HCL 100 MG TABLET PO SCH (08:58)
[2022-08-02] MEDS: buPROPion XL 300 MG TABCR PO SCH (08:59)
[2022-08-02] MEDS: DOXYCYCLINE HYCLATE 100 MG CAP PO SCH ×2 (08:59→20:18)
[2022-08-02] MEDS: FLUTICASONE FUROATE 200MCG 14 PUFFS/INHALER INH SCH (08:59)
[2022-08-02] MEDS: MULTIVITAMIN TAB PO SCH (08:59)
[2022-08-02] MEDS: TAMSULOSIN HCL 0.4 MG CAP PO SCH (08:59)
[2022-08-02] MEDS: SPIRONOLACTONE 25 MG TAB PO SCH (08:59)
[2022-08-02] MEDS: FUROSEMIDE 80 MG TAB PO SCH (08:59)
[2022-08-02] MEDS: FUROSEMIDE 40 MG TAB PO SCH (14:11)
--- NOTE | 2022-08-02 14:31 | Hospitalist Progress Note ---
Date of Service August 02, 2022 Assessment & Plan (1) Encephalopathy: Plan: Acute Metabolic Encephalopathy Likely Multifactorial:Hypercarbia, Substance abuse DD: Hypo/hyper glycemia DD:Narcolepsy, Infection --CT Head: No acute intracranial hemorrhage, no evidence of acute territorial infarction or other acute intracranial disease process. Toxicology Screen: Positive for methamphetamine No focal deficits on exam Fall Precautions Hypercapnic respiratory failure Likely OHS, ALEJANDRA --CXR:No acute chest disease. Cardiomegaly is noted. BiPAP PRN while sleeping and HS VBG in AM Appreciate Pulmonology Input Scheduled for Sleep Study as outpatient Will also need PFTs as outpatient Recommended to avoid driving for now Bilateral LE cellulitis Varicose Veins H/O PVD Reports LE pain at rest and with ambulation Venous Doppler:There is no sonographic evidence of deep venous thrombosis identified in the right or left lower extremity. Blood Cx:pending Continue Doxycycline Vascular surgery consulted Continue Aspirin Uncontrolled DM II Blood Glucose levels variable as per patient ? Compliance HbA1C pending Hold Metformin Insulin per protocol Monitor BGs Chronic diastolic heart failure Nonischemic cardiomyopathy ECHO: EF 55 to 60%. Moderate concentric LVH. Left atrium is mildly dilated. Diastolic dysfunction, grade 2. Continue diuretics Monitor volume status Nonobstructive CAD PVD Continue Aspirin, Metoprolol Hypertension Continue current meds Monitor H/O HCV S/P failed treatment with interferon H/O Ocular toxoplasmosis As per records Anxiety/mood disorder Continue home Meds Monitor Morbid Obesity BMI 39.5 Encourage Lifestyle modifications DVT Px: Lovenox SQ Code Status Full code Admission and Anticipated Discharge Date Admission Date: August 01, 2022 Subjective Patient is seen and examined at bedside Drowsy during my encounter but easily awakes Reports B/L leg pain Poor historian Denies chest pain, dyspnea, dizziness, nausea, abd pain Review of Systems Review of Systems: All systems reviewed & are unremarkable except as noted in Subjective Physical Exam Physical Exam: Physical Exam: Vitals signs as noted above General Appearance:Morbid Obesity, no apparent distress Head: normocephalic, Atraumatic Eyes: normal inspection, EOMI Neck: supple, Trachea midline Respiratory/Chest: Normal breath sounds, CTA, No accessory muscle use Cardiovascular: S1, S2, No murmur Abdomen/GI:Soft, Non tender, Bowel sounds present Extremities/Musculoskeletal:normal inspection, B/L LE edema, erythema, Varicose veins Neurologic/Psych:AAO, grossly no focal neurological deficits, drowsy Skin: normal color, warm Results & Data Results & Data ([facility]) Vital Signs (Past 12 Hours) Vital Signs Temp Pulse Resp BP BP Pulse Ox O2 Del Method 08/02/22 11:15 36.8 C 73 20 151/79 H 92 Room Air 08/02/22 07:11 37.1 C 75 19 139/82 93 Room Air 08/02/22 03:40 36.5 C 79 18 146/66 H 93 Room Air Laboratory Results Short CBC 08/01/22 08/02/22 Range/Units 18:00 07:06 WBC 10.05 8.76 (4.8-10.8) K/ul Hgb 15.7 15.0 (14.0-18.0) g/dl Hct 47.1 44.4 (40.1-51.0) % Plt Count 293 279 (130-400) K/uL BMP 08/01/22 08/02/22 18:00 07:06 Sodium 135 L 139 Potassium 4.2 4.3 Chloride 103 109 H Carbon Dioxide 24 26 BUN 18 16 Creatinine 0.79 0.70 Glucose 231 H 160 H Calcium 8.6 8.7 Liver Function 08/01/22 Range/Units 18:00 Total Bilirubin 0.5 (0.2-1.0) mg/dl AST 21 (13-39) U/L ALT 19 (7-52) U/L Alkaline Phosphatase 83 (34-104) U/L Albumin 3.3 L (3.4-5.0) gm/dl Urine 08/01/22 Range/Units 19:34 Urine Color Yellow Urine Appearance Clear (Clear) Urine pH 5.0 (4.5-7.5) Ur Specific [place] 1.016 (1.000-1.030) Urine Protein Negative (Negative) Urine Glucose (UA) 3+ H (Negative)
--- NOTE | 2022-08-02 14:38 | Pharmacy Report ---
Pharmacy Glycemic Short Note 2 - Date of Service August 02, 2022 - Glycemic Short BSG Results (Last 24 hours): 08/01/22 08/01/22 08/02/22 18:00 20:14 00:02 Glucose 231 H POC Glucose 173 H 224 H 08/02/22 08/02/22 08/02/22 03:54 07:06 07:09 Glucose 160 H POC Glucose 160 H 136 H 08/02/22 11:14 Glucose POC Glucose 210 H OUTPATIENT ANTIDIABETIC REGIMEN: * Levemir 70 units SC BID * Novolog 45 units SC with breakfast and 50 units SC with dinner * Metformin ER 1500 mg PO daily * Jardiance 25 mg PO daily HbA1c: 9.4% (04/25/22), update pending ASSESSMENT: * CF is a 62 year old male admitted overnight due to encephalopathy (likely multifactorial in nature) * Patient with significant outpatient insulin requirements + multiple oral agents * Reportedly intolerant to Lantus. Levemir is now non-formulary so will use NPH BIDM. * Will initiate insulin dosing with assumption that inpatient insulin requirements will be significantly less than outpatient ones * Will increase doses as needed PLAN FOR INPATIENT GLYCEMIC CONTROL: * Hold outpatient oral diabetes medications * Basal insulin * NPH 35 units SQ x 1 this morning * NPH 10-35 units SC x 1 with dinner (see EHR for details) * Reassess in AM * Bolus insulin * NovoLog per scale ACHS or Q6hrs while NPO * Goal Range: Low 110 mg/dL - High 140 mg/dL * Correction Factor: 12 mg/dL/unit * Nutritional / Prandial insulin per carb ratio of 1 unit per 4 grams CHO consumed
[2022-08-03 06:50] LABS: Hematocrit (blood only) 46.2 % (40.1-51.0); Hemoglobin 15.4 g/dl (14.0-18.0); Mean Corpuscular Hemoglobin 28.7 pg (25.0-34.0); Mean Corpuscular Hgb Conc 33.3 g/dL (32.0-36.0); Mean Corpuscular Volume 86.2 fL (80.0-100.0); Mean Platelet Volume 9.5 fL (9.4-12.4); Platelet Count 272 K/uL (130-400); RDW Coefficient of Variation 12.8 % (11.5-14.5); RDW Standard Deviation 40.1 fL (36.4-46.3); Red Blood Count 5.36 M/uL (4.63-6.08); White Blood Count 10.28 K/ul (4.8-10.8)
[2022-08-03 06:53] LABS: A calco-baum cmplx NotReported DETECTED (NotDetected); Acinetobacter calco-baum cmplx DETECTED (NotDetected); Bact fragilis Not Reported Not Detected (NotDetected); C auris Not Reported Not Detected (NotDetected); CTX-M Resistant Gene Not Detected (NotDetected); Calbicans Not Reported Not Detected (NotDetected); Candida glabrata Not Reported Not Detected (NotDetected); Candida krusei Not Reported Not Detected (NotDetected); Cneoformans/gatti Not Reported Not Detected (NotDetected); Cparapsilosis Not Reported Not Detected (NotDetected); Ctropicalis Not Reported Not Detected (NotDetected); E cloacae compx Not Reported Not Detected (NotDetected); Efaecalis Not Reported Not Detected (NotDetected); Efaecium Not Reported Not Detected (NotDetected); Enterobacterales Not Reported Not Detected (NotDetected); Escherichia coli Not Reported Not Detected (NotDetected); H influenzae Not Reported Not Detected (NotDetected); IMP Resistant Gene Not Detected (NotDetected); K aerogenes Not Reported Not Detected (NotDetected); KPC Resistant Gene Not Detected (NotDetected); Koxytoca Not Reported Not Detected (NotDetected); Kpneumoniae grp Not Reported Not Detected (NotDetected); Lmonocyt Not Reported Not Detected (NotDetected); N meningitidis Not Reported Not Detected (NotDetected); NDM Resistant Gene Not Detected (NotDetected); P aeruginosa Not Reported Not Detected (NotDetected); Proteus spp Not Reported Not Detected (NotDetected); Salmonella spp Not Reported Not Detected (NotDetected); Smarcescens Not Reported Not Detected (NotDetected); Staph lugdunensis Not Reported Not Detected (NotDetected); Staphaureus Not Reported Not Detected (NotDetected); Staphepi Not Reported DETECTED (NotDetected); Staphylococcus epidermidis DETECTED (NotDetected); Staphylococcus spp. DETECTED (NotDetected); Stenmaltophilia Not Reported Not Detected (NotDetected); Strep agal(GrpB) Not Reported Not Detected (NotDetected); Strep pneum Not Reported Not Detected (NotDetected); Strep pyog (GrpA) Not Reported Not Detected (NotDetected); Strep spp Not Reported Not Detected (NotDetected); VIM Resistant Gene Not Detected (NotDetected); mecAC Resistant Gene Not Detected (NotDetected)
[2022-08-03 06:54] LABS: HCO3 VBG 26 mmol/L; Oxygen Saturation VBG 96.6 %; PCO2 VBG 42 mmHg (38-50); PO2 VBG 75 mmHg
[2022-08-03 06:57] LABS: Staph spp. Not Reported DETECTED (NotDetected)
[2022-08-03] MEDS ORDERED: INSULIN HUMAN NPH SC ONE (07:30)
[2022-08-03 07:38] LABS: Estimated Average Glucose 232 mg/dl; Hemoglobin A1C 9.7 % (4.5-5.6)
[2022-08-03 07:45] LABS: BUN Creatinine Ratio 27.9 (10-20); Calcium 8.5 mg/dl (8.5-10.1); Creatinine Clr Calc Pharmacy 168.5 ml/min; Est GFR (African American) 125.8 ml/min; Est GFR (Non-African American) 108.5 ml/min; Potassium 3.7 mmol/L (3.5-5.1)
[2022-08-03] MEDS: INSULIN ASPART PER UNIT SC SCH ×4 (07:52→21:56)
[2022-08-03] MEDS: ASPIRIN 81 MG ECTAB PO SCH (08:35)
[2022-08-03] MEDS: ENOXAPARIN INJ 40 MG/0.4 ML SYR SQ SCH (08:36)
[2022-08-03] MEDS: buPROPion XL 300 MG TABCR PO SCH (08:36)
[2022-08-03] MEDS: FLUTICASONE FUROATE 200MCG 14 PUFFS/INHALER INH SCH (08:36)
[2022-08-03] MEDS: MULTIVITAMIN TAB PO SCH (08:38)
[2022-08-03] MEDS: lisinopril 40 MG TAB PO SCH (08:38)
[2022-08-03] MEDS: METOPROLOL SUCC 50MG EXT REL TAB PO SCH ×2 (08:38→22:00)
[2022-08-03] MEDS: FUROSEMIDE 80 MG TAB PO SCH (08:38)
[2022-08-03] MEDS: SPIRONOLACTONE 25 MG TAB PO SCH (08:39)
[2022-08-03] MEDS: SERTRALINE HCL 100 MG TABLET PO SCH (08:39)
[2022-08-03] MEDS: TAMSULOSIN HCL 0.4 MG CAP PO SCH (08:39)
--- NOTE | 2022-08-03 09:05 | Pulmonology Progress Note ---
Date of Service August 03, 2022 Assessment & Plan (1) Hypercapnic respiratory failure: (2) Morbid obesity: Plan Impression: 62-year-old male with hypercapnic respiratory failure which may be multifactorial. Agree that there is likely a component of sleep disordered breathing present. VBG 08/01/2022: 7.34/58/23 ABG 08/02/2022: 7.43/41/72 on room air --Encephalopathy Patient's initial VBG showed PCO2 of 58 Repeat ABG the next morning showed PCO2 of 41 without use of any BiPAP --Probable ALEJANDRA/OHS Follows up with sleep physician as an outpatient Is supposed to have sleep study done end of August Consider BiPAP 07/16 nightly --Morbid obesity Advised to lose with diet and exercise Plan: I doubt patient's encephalopathy was from underlying mild hypercapnia. PCO2 is already normalized Blood culture being positive could be one of the reasons for it. Patient does probably have ALEJANDRA/OHS, recommend outpatient polysomnography Case was discussed with Dr. Denny No further recommendation from pulmonary perspective. We will sign off Please call directly with any questions Please note the above document was generated using voice recognition software. It may contain grammatical, syntax or spelling errors.Any formal questions or concerns about the content, text or information contained within the body of this dictation should be directly addressed to the provider for clarification. Admission and Anticipated Discharge Date Admission Date: August 01, 2022 Subjective Patient seen and examined at bedside. No acute distress, no adverse events overnight. Patient did not use any BiPAP or CPAP at night Denies any chest pain, no shortness of breath, no headache, no nausea, no vomiting Fair appetite. Review of Systems Review of Systems: All systems reviewed & are unremarkable except as noted in Subjective Physical Exam Physical Exam: Constitutional: No acute distress HEENT: EOMI, PERRLA Respiratory system: Good air entry bilaterally, no wheeze, no rhonchi, no crackles CVS: S1-S2 positive, no murmurs or gallops Abdomen: Soft, nontender, nondistended, positive bowel sounds x4, obese Extremities: +2 pulses bilaterally radialis/ dorsalis pedis, no cyanosis, +1 pitting edema bilateral lower extremity Neuro: Awake alert oriented x3 Psych: Normal mood and affect G/U: No [place] Skin: no rashes, warm and dry Lymphatic: no cervical or axillary lymphadenopathy Results & Data Results & Data ([facility]) Vital Signs (Past 12 Hours) Vital Signs Temp Pulse Pulse Resp BP Pulse Ox O2 Del Method 08/03/22 06:12 52 L 08/03/22 07:06 36.8 C 69 18 110/68 96 Room Air 08/03/22 02:33 36.8 C 70 18 103/61 95 Room Air 08/02/22 23:34 65 08/02/22 23:13 36.8 C 63 18 103/65 94 Room Air Laboratory Results 08/03/22 06:16 08/03/22 06:16 PG Care Time/CCT Total # of Minutes Spent Total Time Spent with Patient: Total time spent is greater than 50% in coordination of care (as documented) at patient's floor/unit and/or counseling patient: Coding Level of Care Code 63964 Subseq Hosp Care Lvl 2 Diagnoses Hypercapnic respiratory failure J96.92 Morbid obesity E66.01
[2022-08-03] MEDS: levoFLOXacin/D5W 750 MG/150 ML BAG IV SCH (10:00)
[2022-08-03] MEDS: CEFDINIR 300 MG CAP PO SCH ×2 (10:00→22:00)
--- NOTE | 2022-08-03 10:26 | Consultation ---
Date of Consultation August 03, 2022 Assessment & Plan (1) Varicose veins of bilateral lower extremities with other complications: Pt with visible VV of BLE, nontender. No erythema currently, but this is likely stasis dermatitis related to increased dependent edema of BLE. No ulcers. Recommend conservative treatment of the VV with regular exercise, elevation of the legs when able, and wearing graduated compression therapy. Pt states he has some compression stockings at home, but has never been measured for stockings. Will order orthotics eval/measuring for new stockings. No indications for vascular surigcal intervention at this time. Please call if needed. History of Present Illness Reason for Consultation: VV Attending Physician: Zak Denny MD History of Present Illness 62 yo m with hx of DMII, depression, hepatitis, nonischemic cardiomyopathy, HTN, colon polyps, IVDU(remotely), neuropathy, admitted with encephalopathy, seen in consultation today for varicose veins of BLE. Pt states has had these for many years. Also admits edema of BLE. Redness of BLE is worse when edema is worse. States is uncomfortable, but not unbearable. Has had veins on his ankle bleed when he gets out of the shower. Denies any ulcerations. Denies hx of DVT, CALIX, fever, chest pain, SOB, abd pain, N/V, rest pain, claudication, other complaints. Allergies Allergy/AdvReac Type Severity Reaction Status Date / Time permethrin Allergy Intermediate swelling Verified 08/01/22 20:58 shrimp Allergy Intermediate SWELLS Verified 08/01/22 20:58 sulfamethoxazole Allergy Unknown Verified 08/01/22 20:59 [From Bactrim] trimethoprim [From Bactrim] Allergy Unknown Verified 08/01/22 20:59 amoxicillin AdvReac Intermediate HIVES Verified 08/01/22 20:58 clavulanic acid AdvReac Intermediate HIVES Verified 08/01/22 20:58 insulin glargine AdvReac CHF Verified 08/01/22 20:59 [From Lantus U-100 Insulin] Home Medications Medication Instructions Recorded Confirmed Type ascorbic acid (vitamin C) 500 mg 1,000 mg PO DAILY 01/04/19 08/01/22 History tablet (Vitamin C) furosemide 40 mg tablet 80 mg PO QAM 01/04/19 08/01/22 History lisinopril 40 mg tablet 40 mg PO DAILY 01/04/19 08/01/22 History spironolactone 25 mg tablet 25 mg PO DAILY 01/04/19 08/01/22 History metoprolol succinate 50 mg 50 mg PO BID 07/13/19 08/01/22 History tablet,extended release 24 hr tamsulosin 0.4 mg capsule 0.4 mg PO DAILY 08/14/20 08/01/22 History fluticasone propionate 220 2 puff inhalation BID 04/24/22 08/01/22 History mcg/actuation HFA aerosol inhaler (Flovent HFA) insulin detemir U-100 100 unit/mL 70 unit subcut BID 04/24/22 08/01/22 History (3 mL) subcutaneous pen (Levemir FlexTouch U-100 Insulin) Chromium-Cinnamon 1 tab PO DAILY 08/01/22 08/01/22 History albuterol sulfate 90 mcg/actuation 2 puff inhalation Q4 PRN Shortness 08/01/22 08/01/22 History aerosol inhaler Of Breath Or Wheezing aspirin 81 mg tablet,delayed 81 mg PO DAILY 08/01/22 08/01/22 History release bupropion HCl 300 mg 24 hr tablet, 300 mg PO DAILY 08/01/22 08/01/22 History extended release empagliflozin 25 mg tablet 25 mg PO DAILY 08/01/22 08/01/22 History (Jardiance) furosemide 40 mg tablet (Lasix) 40 mg PO .QAFTERNOON 08/01/22 08/01/22 History insulin aspart U-100 100 unit/mL See Rx Instructions .Route .COMPLEX 08/01/22 08/01/22 History (3 mL) subcutaneous pen lactobacillus combination no.4 3 0 mmu cells PO DAILY 08/01/22 08/01/22 History billion cell capsule (Probiotic) metformin 750 mg tablet,extended 1,500 mg PO DAILY 08/01/22 08/01/22 History release 24 hr multivitamin 1 tab PO DAILY 08/01/22 08/01/22 History nitroglycerin 0.4 mg sublingual 0.4 mg sublingual DIRECTED PRN 08/01/22 08/01/22 History tablet (Nitrostat) Chest Pain sertraline 100 mg tablet 100 mg PO DAILY 08/01/22 08/01/22 History Patient History Medical History Anxiety Congestive heart failure Depression Diabetes mellitus, type 2 Dysequilibrium H/O drug abuse Hepatitis C Hypertension Nonischemic cardiomyopathy "prior EF 30% per Epic records. echo 02/2015- EF 54%" Surgical History History of cardiac cath 03/2015 @ [facility], no stents follows with Dr. Monet History of colonoscopy History of tooth extraction History of umbilical hernia repair x2 History of wisdom tooth extraction Family History Mother Family history of diabetes mellitus Father Family history of diabetes mellitus Other No family history of adverse response to anesthesia Social History Smoking Status: Light tobacco smoker Cigarettes Per Day: Says he occasionally will smoke a cigar.; Second Hand Exposure: Yes; Hx Alcohol Use: Yes Alcohol type: beer, wine and hard liquor Hx Substance Use: Yes Last Used Substance Other:: States he has used substances for 30 years, last used meth couple weeks ago Preferred Language: German Communication Ability: Effective Glass Loading Equipment Tender Required: No Beliefs That Will Affect Care: None marital status: Single Current Living Situation: Alone Current Living Situation Comment: lives alone Other Information That Helps Us Care for You: No Feels Safe at Home: Yes Safety Concerns: Feels Safe At This Time Assistive Devices: None and Glasses Review of Systems Review of Systems: All systems reviewed & are unremarkable except as noted in HPI & below Physical Exam Constitutional: WD/WN, vitals as above healthy appearing, cooperative and comfortable; not in distress Neck: trachea midline Respiratory: normal respiratory effort, lungs clear to auscultation Auscultation: + diminished lung sounds Cardiovascular: Rate/Rhythm: regular rate and regular rhythm Vessels: normal peripheral pulses, posterior tibial pulses present, dorsalis pedis pulses present, brachial pulses present and radial pulses present Extremities: normal capillary refill, + edema (trace) and + varicosities (BLE, soft) Gastrointestinal (Abdomen): Inspection/Auscultation: abdomen normal to inspection and normal bowel sounds Percussion/Palpation: abdomen soft; abdomen nontender Musculoskeletal: no cyanosis or clubbing, extremities motor strength 5/5 Skin: no rashes, warm and dry Neurologic: moves all extremities and awake; no focal motor deficits and not confused Psychiatric: A+Ox3, euthymic affect Results & Data ([facility]) Vital Signs (Past 12 Hours) Vital Signs Temp Pulse Pulse Pulse Resp BP BP 08/03/22 09:27 36.6 C 70 16 135/79 08/03/22 06:12 52 L 08/03/22 07:06 36.8 C 69 18 110/68 08/03/22 02:33 36.8 C 70 18 103/61 08/02/22 23:34 65 08/02/22 23:13 36.8 C 63 18 103/65 Pulse Ox O2 Del Method 08/03/22 09:27 95 Room Air 08/03/22 06:12 08/03/22 07:06 96 Room Air 08/03/22 02:33 95 Room Air 08/02/22 23:34 08/02/22 23:13 94 Room Air
[2022-08-03] MEDS: FUROSEMIDE 40 MG TAB PO SCH (14:09)
--- NOTE | 2022-08-03 14:47 | Hospitalist Progress Note ---
Date of Service August 03, 2022 Assessment & Plan (1) Encephalopathy: Plan: Acute Metabolic Encephalopathy Likely Multifactorial: Gram Negative Bacteremia, Hypercarbia, Substance abuse --CT Head: No acute intracranial hemorrhage, no evidence of acute territorial infarction or other acute intracranial disease process. Toxicology Screen: Positive for methamphetamine No focal deficits on exam Fall Precautions Gram Negative Bacteremia Blood Cx: 10/12: Coagulase-negative staph not lugdunensis ; gram-negative bacilli On cefdinir, Levaquin as per bio [employer] results Repeat blood cultures tomorrow Consulted ID for recommendations Hypercapnic respiratory failure Likely OHS, ALEJANDRA --CXR:No acute chest disease. Cardiomegaly is noted. BiPAP PRN while sleeping and HS VBG in AM Appreciate Pulmonology Input Scheduled for Sleep Study as outpatient Will also need PFTs as outpatient Recommended to avoid driving for now Bilateral LE cellulitis Varicose Veins H/O PVD Reports LE pain at rest and with ambulation Venous Doppler:There is no sonographic evidence of deep venous thrombosis identified in the right or left lower extremity. Blood Cx:as above Continue Doxycycline>>changed as above Appreciate Vascular surgery Input: Conservative management with regular exercise, leg elevation, compression therapy Continue Aspirin Uncontrolled DM II Blood Glucose levels variable as per patient ? Compliance HbA1C 9.7 Hold Metformin Insulin per protocol Monitor BGs Consulted inclusion special educator, glycemic pharmacy Chronic diastolic heart failure Nonischemic cardiomyopathy ECHO: EF 55 to 60%. Moderate concentric LVH. Left atrium is mildly dilated. Diastolic dysfunction, grade 2. Continue diuretics Monitor volume status Nonobstructive CAD PVD Continue Aspirin, Metoprolol Hypertension Continue current meds Monitor H/O HCV S/P failed treatment with interferon H/O Ocular toxoplasmosis As per records Anxiety/mood disorder Continue home Meds Monitor Morbid Obesity BMI 39.5 Encourage Lifestyle modifications DVT Px: Lovenox SQ Code Status Full code Admission and Anticipated Discharge Date Admission Date: August 01, 2022 Subjective Patient is seen and examined at bedside States feeling Denies any significant leg pain today Denies chest pain, dyspnea, dizziness, nausea, abd pain Blood Cx growing gram-negative Review of Systems Review of Systems: All systems reviewed & are unremarkable except as noted in Subjective Physical Exam Physical Exam: Physical Exam: Vitals signs as noted above General Appearance:Morbid Obesity, no apparent distress Head: normocephalic, Atraumatic Eyes: normal inspection, EOMI Neck: supple, Trachea midline Respiratory/Chest: Normal breath sounds, CTA, No accessory muscle use Cardiovascular: S1, S2, No murmur Abdomen/GI:Soft, Non tender, Bowel sounds present Extremities/Musculoskeletal:normal inspection, B/L LE edema, erythema, Varicose veins Neurologic/Psych:AAO, grossly no focal neurological deficits, drowsy Skin: normal color, warm Results & Data Results & Data ([facility]) Vital Signs (Past 12 Hours) Vital Signs Temp Pulse Pulse Pulse Resp BP BP 08/03/22 09:56 73 08/03/22 11:53 36.5 C 63 20 124/73 08/03/22 09:27 36.6 C 70 16 135/79 08/03/22 06:12 52 L 08/03/22 07:06 36.8 C 69 18 110/68 Pulse Ox O2 Del Method 08/03/22 09:56 08/03/22 11:53 92 Room Air 08/03/22 09:27 95 Room Air 08/03/22 06:12 08/03/22 07:06 96 Room Air Laboratory Results Short CBC 08/03/22 Range/Units 06:16 WBC 10.28 (4.8-10.8) K/ul Hgb 15.4 (14.0-18.0) g/dl Hct 46.2 (40.1-51.0) % Plt Count 272 (130-400) K/uL BMP 08/03/22 06:16 Sodium 138 Potassium 3.7 Chloride 106 Carbon Dioxide 26 BUN 17 Creatinine 0.61 Glucose 141 H Calcium 8.5
[2022-08-03] MEDS ORDERED: INSULIN HUMAN NPH SC SCH (17:00)
[2022-08-04 08:25] LABS: BUN Creatinine Ratio 24.3 (10-20); Calcium 8.4 mg/dl (8.5-10.1); Creatinine Clr Calc Pharmacy 137.8 ml/min; Est GFR (African American) 116.2 ml/min; Est GFR (Non-African American) 100.3 ml/min; Potassium 3.9 mmol/L (3.5-5.1)
[2022-08-04] MEDS: FUROSEMIDE 80 MG TAB PO SCH (08:25)
[2022-08-04] MEDS: lisinopril 40 MG TAB PO SCH (08:25)
[2022-08-04] MEDS: METOPROLOL SUCC 50MG EXT REL TAB PO SCH ×2 (08:25→21:34)
[2022-08-04] MEDS: ASPIRIN 81 MG ECTAB PO SCH (08:25)
[2022-08-04] MEDS: MULTIVITAMIN TAB PO SCH (08:25)
[2022-08-04] MEDS: SERTRALINE HCL 100 MG TABLET PO SCH (08:26)
[2022-08-04] MEDS: ENOXAPARIN INJ 40 MG/0.4 ML SYR SQ SCH (08:26)
[2022-08-04] MEDS: SPIRONOLACTONE 25 MG TAB PO SCH (08:26)
[2022-08-04] MEDS: buPROPion XL 300 MG TABCR PO SCH (08:26)
[2022-08-04] MEDS: CEFDINIR 300 MG CAP PO SCH (08:26)
[2022-08-04] MEDS: TAMSULOSIN HCL 0.4 MG CAP PO SCH (08:26)
[2022-08-04] MEDS: levoFLOXacin/D5W 750 MG/150 ML BAG IV SCH (08:27)
[2022-08-04] MEDS: INSULIN ASPART PER UNIT SC SCH ×4 (09:12→21:32)
[2022-08-04] MEDS: INSULIN HUMAN NPH SC SCH (09:59)
[2022-08-04] MEDS: FLUTICASONE FUROATE 200MCG 14 PUFFS/INHALER INH SCH (10:05)
[2022-08-04] MEDS: FUROSEMIDE 40 MG TAB PO SCH (13:37)
[2022-08-04] MEDS: DOXYCYCLINE HYCLATE 100 MG CAP PO SCH ×2 (13:37→21:34)
--- NOTE | 2022-08-04 13:59 | Pharmacy Report ---
Pharmacy Glycemic Short Note 2 - Date of Service August 04, 2022 - Glycemic Short BSG Results (Last 24 hours): 08/03/22 08/03/22 08/04/22 16:32 20:16 07:40 Glucose 168 H POC Glucose 142 H 189 H 08/04/22 08/04/22 08:20 11:28 Glucose POC Glucose 189 H 186 H OUTPATIENT ANTIDIABETIC REGIMEN: * Levemir 70 units SC BID * Novolog 45 units SC with breakfast and 50 units SC with dinner * Metformin ER 1500 mg PO daily * Jardiance 25 mg PO daily HbA1c: 9.7% (08/02/22) ASSESSMENT: * Patient's BSGs yesterday were [phone] mg/dL. Patient received 71 units of insulin (40 units of basal and 31 units of bolus). * Patient's BSGs today are 189-186 mg/dL. * Increase evening dose of NPH from 10 to 15 as fasting BSG elevated. * Continue current Novolog as BSGs reasonable. BACKGROUND * CF is a 62 year old male admitted overnight due to encephalopathy (likely multifactorial in nature) * Patient with significant outpatient insulin requirements + multiple oral agents * Reportedly intolerant to Lantus. Levemir is now non-formulary so will use NPH BIDM. * Will initiate insulin dosing with assumption that inpatient insulin requirements will be significantly less than outpatient ones * Will increase doses as needed PLAN FOR INPATIENT GLYCEMIC CONTROL: * Hold outpatient oral diabetes medications * Basal insulin * NPH 30 SQ in the morning * NPH 15 units SC with dinner * Bolus insulin * NovoLog per scale ACHS or Q6hrs while NPO * Goal Range: Low 110 mg/dL - High 140 mg/dL * Correction Factor: 12 mg/dL/unit * Nutritional / Prandial insulin per carb ratio of 1 unit per 4 grams CHO consumed
[2022-08-04] MEDS ORDERED: INSULIN HUMAN NPH SC SCH ×2 (17:00)
--- NOTE | 2022-08-04 17:18 | Hospitalist Progress Note ---
Date of Service August 04, 2022 Assessment & Plan (1) Encephalopathy: Plan: Acute Metabolic Encephalopathy Likely Multifactorial: Gram Negative Bacteremia, Hypercarbia, Substance abuse --CT Head: No acute intracranial hemorrhage, no evidence of acute territorial infarction or other acute intracranial disease process. Toxicology Screen: Positive for methamphetamine No focal deficits on exam Fall Precautions Encephalopathy resolved Acinetobacter Bacteremia Suspected Source:Leg cellulitis (admits to having intermittent bleed due to varicose veins) Blood Cx: 10/12: Acinetobacter, coagulase-negative staph not lugdunensis Repeat blood cultures pending On cefdinir, Levaquin>> transition to doxycycline, Levaquin as per ID Discussed with Tomi ID Dr. Haines on 08/04/22: Will likely need 14-day course of oral doxycycline and IV Levaquin Appreciate ID Input Hypercapnic respiratory failure Likely OHS, ALEJANDRA --CXR:No acute chest disease. Cardiomegaly is noted. BiPAP PRN while sleeping and HS VBG in AM Appreciate Pulmonology Input Scheduled for Sleep Study as outpatient Will also need PFTs as outpatient Recommended to avoid driving for now Bilateral LE cellulitis Varicose Veins H/O PVD Reports LE pain at rest and with ambulation Venous Doppler:There is no sonographic evidence of deep venous thrombosis identified in the right or left lower extremity. Blood Cx:as above Continue Doxycycline>>changed as above Appreciate Vascular surgery Input: Conservative management with regular exercise, leg elevation, compression therapy Continue Aspirin Uncontrolled DM II Blood Glucose levels variable as per patient ? Compliance HbA1C 9.7 Hold Metformin Insulin per protocol Monitor BGs Consulted inclusion special educator, glycemic pharmacy diabetic educator consulted Chronic diastolic heart failure Nonischemic cardiomyopathy ECHO: EF 55 to 60%. Moderate concentric LVH. Left atrium is mildly dilated. Diastolic dysfunction, grade 2. Continue diuretics Monitor volume status Nonobstructive CAD PVD Continue Aspirin, Metoprolol Hypertension Continue current meds Monitor H/O HCV S/P failed treatment with interferon H/O Ocular toxoplasmosis As per records Anxiety/mood disorder Continue home Meds Monitor Morbid Obesity BMI 39.5 Encourage Lifestyle modifications DVT Px: Lovenox SQ Code Status Full code Admission and Anticipated Discharge Date Admission Date: August 01, 2022 Subjective Patient is seen and examined at bedside Mental status seem to be back to baseline States having bilateral leg pain No other new complaints Denies chest pain, dyspnea, dizziness, nausea, abd pain Discussed with Tomi infectious disease over the phone Review of Systems Review of Systems: All systems reviewed & are unremarkable except as noted in Subjective Physical Exam Physical Exam: Physical Exam: Vitals signs as noted above General Appearance:Morbid Obesity, no apparent distress Head: normocephalic, Atraumatic Eyes: normal inspection, EOMI Neck: supple, Trachea midline Respiratory/Chest: Normal breath sounds, CTA, No accessory muscle use Cardiovascular: S1, S2, No murmur Abdomen/GI:Soft, Non tender, Bowel sounds present Extremities/Musculoskeletal:normal inspection, B/L LE edema, erythema, Varicose veins Neurologic/Psych:AAO, grossly no focal neurological deficits, drowsy Skin: normal color, warm Results & Data Results & Data ([facility]) Vital Signs (Past 12 Hours) Vital Signs Temp Pulse Resp BP Pulse Ox O2 Del Method 08/04/22 16:05 36.4 C L 55 L 20 106/66 92 08/04/22 08:40 36.7 C 59 L 25 H 140/70 90 Room Air 08/04/22 11:50 36.4 C L 60 21 144/82 H 91 08/04/22 08:00 Room Air Laboratory Results [facility] 08/04/22 07:40 Sodium 137 Potassium 3.9 Chloride 106 Carbon Dioxide 26 BUN 18 Creatinine 0.74 Glucose 168 H Calcium 8.4 L
[2022-08-05 07:58] LABS: Hematocrit (blood only) 52.7 % (40.1-51.0); Hemoglobin 17.1 g/dl (14.0-18.0); Mean Corpuscular Hemoglobin 28.5 pg (25.0-34.0); Mean Corpuscular Hgb Conc 32.4 g/dL (32.0-36.0); Mean Corpuscular Volume 87.7 fL (80.0-100.0); Mean Platelet Volume 9.5 fL (9.4-12.4); Platelet Count 259 K/uL (130-400); RDW Coefficient of Variation 13.2 % (11.5-14.5); Red Blood Count 6.01 M/uL (4.63-6.08)
[2022-08-05] MEDS: INSULIN ASPART PER UNIT SC SCH ×4 (08:07→21:51)
[2022-08-05] MEDS: INSULIN HUMAN NPH SC SCH (08:08)
[2022-08-05] MEDS: ASPIRIN 81 MG ECTAB PO SCH (08:09)
[2022-08-05] MEDS: FLUTICASONE FUROATE 200MCG 14 PUFFS/INHALER INH SCH (08:09)
[2022-08-05] MEDS: TAMSULOSIN HCL 0.4 MG CAP PO SCH (08:09)
[2022-08-05] MEDS: lisinopril 40 MG TAB PO SCH (08:10)
[2022-08-05] MEDS: DOXYCYCLINE HYCLATE 100 MG CAP PO SCH ×2 (08:10→21:45)
[2022-08-05] MEDS: buPROPion XL 300 MG TABCR PO SCH (08:10)
[2022-08-05] MEDS: SPIRONOLACTONE 25 MG TAB PO SCH (08:10)
[2022-08-05] MEDS: METOPROLOL SUCC 50MG EXT REL TAB PO SCH ×2 (08:11→21:46)
[2022-08-05] MEDS: SERTRALINE HCL 100 MG TABLET PO SCH (08:11)
[2022-08-05] MEDS: MULTIVITAMIN TAB PO SCH (08:11)
[2022-08-05] MEDS: ENOXAPARIN INJ 40 MG/0.4 ML SYR SQ SCH (08:12)
[2022-08-05] MEDS: FUROSEMIDE 80 MG TAB PO SCH (08:12)
[2022-08-05 08:22] LABS: BUN Creatinine Ratio 23.5 (10-20); Calcium 8.7 mg/dl (8.5-10.1); Creatinine Clr Calc Pharmacy 119.8 ml/min; Est GFR (African American) 109.8 ml/min; Est GFR (Non-African American) 94.7 ml/min; Magnesium 1.9 mg/dl (1.7-2.4); Potassium 3.9 mmol/L (3.5-5.1)
--- NOTE | 2022-08-05 08:27 | Hospitalist Progress Note ---
Date of Service August 05, 2022 Assessment & Plan (1) Encephalopathy: Plan: Acute Metabolic Encephalopathy Likely Multifactorial: Gram Negative Bacteremia, Hypercarbia, Substance abuse --CT Head: No acute intracranial hemorrhage, no evidence of acute territorial infarction or other acute intracranial disease process. Toxicology Screen: Positive for methamphetamine No focal deficits on exam Fall Precautions Encephalopathy resolved Acinetobacter Bacteremia Suspected Source:Leg cellulitis (admits to having intermittent bleed due to varicose veins) Blood Cx: /: Acinetobacter, coagulase-negative staph not lugdunensis Repeat blood cultures pending On cefdinir, Levaquin>> transition to doxycycline, Levaquin as per ID Discussed with Tomi ID Dr. Haines on 08/04/22: Will likely need 14-day course of oral doxycycline and IV Levaquin Appreciate ID Input Hypercapnic respiratory failure Likely OHS, ALEJANDRA --CXR:No acute chest disease. Cardiomegaly is noted. BiPAP PRN while sleeping and HS VBG in AM Appreciate Pulmonology Input Scheduled for Sleep Study as outpatient Will also need PFTs as outpatient Recommended to avoid driving for now Bilateral LE cellulitis Varicose Veins H/O PVD Reports LE pain at rest and with ambulation Venous Doppler:There is no sonographic evidence of deep venous thrombosis identified in the right or left lower extremity. Blood Cx:as above Continue Doxycycline>>changed as above Appreciate Vascular surgery Input: Conservative management with regular exercise, leg elevation, compression therapy Continue Aspirin Uncontrolled DM II Blood Glucose levels variable as per patient ? Compliance HbA1C 9.7 Hold Metformin Insulin per protocol Monitor BGs Consulted sample distributor, glycemic pharmacy insulation cupola charger consulted Will need close follow up w/ MTM clinic as outpt Chronic diastolic heart failure Nonischemic cardiomyopathy ECHO: EF 55 to 60%. Moderate concentric LVH. Left atrium is mildly dilated. Diastolic dysfunction, grade 2. Continue diuretics Monitor volume status Nonobstructive CAD PVD Continue Aspirin, Metoprolol Hypertension Continue current meds Monitor H/O HCV S/P failed treatment with interferon H/O Ocular toxoplasmosis As per records Anxiety/mood disorder Continue home Meds Monitor Morbid Obesity BMI 39.5 Encourage Lifestyle modifications DVT Px: Lovenox SQ Code Status Full code Admission and Anticipated Discharge Date Admission Date: August 01, 2022 Subjective Patient is seen in follow up of AMS, bacteremia Per ID on doxy and Levaquin now, repeat blood cultx pending DM uncontrolled - will need MTM outpt follow up Mental status seem to be back to baseline Pt's sister at the bedside No other new complaints Denies chest pain, dyspnea, dizziness, nausea, abd pain Review of Systems Review of Systems: All systems reviewed & are unremarkable except as noted in Subjective Physical Exam Physical Exam: General Appearance:Morbid Obesity, no apparent distress Head: normocephalic, Atraumatic Eyes: normal inspection, EOMI Neck: supple, Trachea midline Respiratory/Chest: Normal breath sounds, CTA, No accessory muscle use Cardiovascular: S1, S2, No murmur Abdomen/GI:Soft, Non tender, Bowel sounds present Extremities/Musculoskeletal:normal inspection, B/L LE edema, erythema, Varicose veins Neurologic/Psych:AAO, grossly no focal neurological deficits, drowsy Skin: normal color, warm Results & Data Results & Data ([facility]) Vital Signs (Past 12 Hours) Vital Signs Temp Pulse Pulse Resp BP BP Pulse Ox 08/05/22 08:09 36.6 C 69 18 116/72 98 08/05/22 03:25 36.5 C 65 65 18 119/76 94 08/04/22 23:23 36.7 C 74 20 116/70 93 O2 Del Method 08/05/22 08:09 08/05/22 03:25 Room Air 08/04/22 23:23 Room Air Laboratory Results 08/05/22 08/05/22 08/05/22 Range/Units 07:49 07:41 07:41 WBC 9.60 (4.8-10.8) K/ul RBC 6.01 (4.63-6.08) M/uL Hgb 17.1 (14.0-18.0) g/dl Hct 52.7 H (40.1-51.0) % MCV 87.7 (80.0-100.0) fL MCH 28.5 (25.0-34.0) pg MCHC 32.4 (32.0-36.0) g/dL RDW Std Deviation 42.0 (36.4-46.3) fL RDW Coeff of Marc 13.2 (11.5-14.5) % Plt Count 259 (130-400) K/uL MPV 9.5 (9.4-12.4) fL Sodium 138 (136-145) mmol/L Potassium 3.9 (3.5-5.1) mmol/L Chloride 105 (98-107) mmol/L Carbon Dioxide 29 (21-32) mmol/L Anion Gap 4 (3-11) BUN 20 (6-23) mg/dl Creatinine 0.85 (0.6-1.4) mg/dl Est Cr Clr Drug Dosing 119.8 ml/min Est GFR ( Amer) 109.8 ml/min Est GFR (Non-Af Amer) 94.7 ml/min BUN/Creatinine Ratio 23.5 H (10-20) Glucose 195 H (70-99(Fasting)) mg/dl POC Glucose 177 H (70-99) mg/dl Calcium 8.7 (8.5-10.1) mg/dl Magnesium 1.9 (1.7-2.4) mg/dl 08/04/22 08/04/22 08/04/22 Range/Units 20:09 16:26 11:28 WBC (4.8-10.8) K/ul RBC (4.63-6.08) M/uL Hgb (14.0-18.0) g/dl Hct (40.1-51.0) % MCV (80.0-100.0) fL MCH (25.0-34.0) pg MCHC (32.0-36.0) g/dL RDW Std Deviation (36.4-46.3) fL RDW Coeff of Marc (11.5-14.5) % Plt Count (130-400) K/uL MPV (9.4-12.4) fL Sodium (136-145) mmol/L Potassium (3.5-5.1) mmol/L Chloride (98-107) mmol/L Carbon Dioxide (21-32) mmol/L Anion Gap (3-11) BUN (6-23) mg/dl Creatinine (0.6-1.4) mg/dl Est Cr Clr Drug Dosing ml/min Est GFR ( Amer) ml/min Est GFR (Non-Af Amer) ml/min BUN/Creatinine Ratio (10-20) Glucose (70-99(Fasting)) mg/dl POC Glucose 158 H 73 186 H (70-99) mg/dl Calcium (8.5-10.1) mg/dl Magnesium (1.7-2.4) mg/dl Medications Administered Current Inpatient Medications Acetaminophen (Acetaminophen 325 Mg Tab) 650 mg PO Q4H PRN PRN Reason: Pain or Fever Stop: 09/01/22 00:38 Last Admin: 08/02/22 19:11 Dose: 650 mg Acetaminophen/Codeine Phosphate (Acetaminophen W/Codeine #3 1 Tab) 1 tab PO QID PRN PRN Reason: pain not relieved by tylenol Stop: 09/01/22 00:00 Aspirin (Aspirin 81 Mg Ectab) 81 mg PO DAILY [facility] Stop: 09/01/22 08:59 Last Admin: 08/05/22 08:09 Dose: 81 mg Bupropion HCl (Bupropion Xl 300 Mg Tabcr) 300 mg PO DAILY [facility] Stop: 09/01/22 08:59 Last Admin: 08/05/22 08:10 Dose: 300 mg Dextrose (Dextrose 50% 50 Ml Syringe) 25 - 50 ml IV UD PRN; Protocol PRN Reason: Hypoglycemia Protocol Stop: 09/01/22 00:00 Doxycycline Hyclate (Doxycycline Hyclate 100 Mg Cap) 100 mg PO BID [facility] Stop: 08/18/22 11:44 Last Admin: 08/05/22 08:10 Dose: 100 mg Enoxaparin Sodium (Enoxaparin Inj 40 Mg/0.4 Ml Syr) 40 mg SQ QAM [facility] Stop: 09/01/22 08:59 Last Admin: 08/05/22 08:12 Dose: 40 mg Fluticasone Furoate (Fluticasone Furoate 200mcg 14 Puffs/Inhaler) 1 puffs INH DAILY [facility] Stop: 09/01/22 08:59 Last Admin: 08/05/22 08:09 Dose: 1 puffs Furosemide (Furosemide 80 Mg Tab) 80 mg PO QAM [facility] Stop: 09/01/22 08:59 Last Admin: 08/05/22 08:12 Dose: 80 mg Furosemide (Furosemide 40 Mg Tab) 40 mg PO Q24H [facility] Stop: 09/01/22 13:59 Last Admin: 08/04/22 13:37 Dose: 40 mg Glucagon (Glucagon For Inj 1 Mg Vial) 1 mg SQ UD PRN; Protocol PRN Reason: Hypoglycemia Protocol Stop: 09/01/22 00:00 Glucose (Glucose 40% Gel 15 Gm Tube) 15 - 30 gm PO UD PRN; Protocol PRN Reason: Hypoglycemia Protocol Stop: 09/01/22 00:00 Glucose (Glucose 10 Tab/Tube) 4 - 8 tab PO UD PRN; Protocol PRN Reason: Hypoglycemia Treatment Stop: 09/01/22 00:00 Promethazine HCl 12.5 mg/ (Sodium Chloride) 50.5 mls @ 202 mls/hr IV Q6H PRN PRN Reason: Nausea And Vomiting Stop: 09/01/22 00:00 Levofloxacin/Dextrose (Levaquin/D5w) 750 mg in 150 mls @ 100 mls/hr IV DAILY@0900 [facility]; Protocol Stop: 08/17/22 08:59 Last Infusion: 08/04/22 10:06 Dose: Infused Insulin Aspart (Insulin Aspart Per Unit) 0 units SC ACHS [facility] Stop: 09/01/22 00:29 Last Admin: 08/05/22 08:07 Dose: 7 units Insulin Human NPH (Insulin Human Nph) 30 units SC DAILY@0730 [facility] Stop: 09/03/22 07:29 Last Admin: 08/05/22 08:08 Dose: 30 units Insulin Human NPH (Insulin Human Nph) 15 units SC DAILY@1700 [facility] Stop: 09/03/22 16:59 Last Admin: 08/04/22 17:07 Dose: Not Given Lisinopril (Lisinopril 40 Mg Tab) 40 mg PO DAILY [facility] Stop: 09/01/22 08:59 Last Admin: 08/05/22 08:10 Dose: 40 mg Metoprolol Succinate (Metoprolol Succ 50mg Ext Rel Tab) 50 mg PO BID [facility] Stop: 09/01/22 00:00 Last Admin: 08/05/22 08:11 Dose: 50 mg Miscellaneous (Carbohydrates For Hypoglycemia ) 15 - 30 gm PO UD PRN PRN Reason: Hypoglycemia Protocol Stop: 09/01/22 00:00 Miscellaneous Information (Pharmacy Glycemic Mgmt Consult) 1 each N/A UD PRN; Protocol PRN Reason: Consult Stop: 09/01/22 00:43 Multivitamins (Multivitamin Tab) 1 tab PO QAM [facility] Stop: 09/01/22 08:59 Last Admin: 08/05/22 08:11 Dose: 1 tab Nitroglycerin (Nitroglycerin Sl 0.4 Mg/Tab Tab) 0.4 mg SL UD PRN PRN Reason: Chest Pain Stop: 09/01/22 00:00 Sertraline HCl (Sertraline Hcl 100 Mg Tablet) 100 mg PO DAILY [facility] Stop: 09/01/22 08:59 Last Admin: 08/05/22 08:11 Dose: 100 mg Spironolactone (Spironolactone 25 Mg Tab) 25 mg PO DAILY [facility] Stop: 09/01/22 08:59 Last Admin: 08/05/22 08:10 Dose: 25 mg Tamsulosin HCl (Tamsulosin Hcl 0.4 Mg Cap) 0.4 mg PO DAILY [facility] Stop: 09/01/22 08:59 Last Admin: 08/05/22 08:09 Dose: 0.4 mg
[2022-08-05 09:19] LABS: Appearance Urine Clear (Clear); Bilirubin Urine Negative (Negative); Blood Urine Negative (Negative); Color Urine Yellow; Glucose Urine UA 2+ (Negative); Ketones Urine Negative (Negative); Leukocyte Esterase Urine Negative (Negative); Nitrite Urine Negative (Negative); Protein Urine Negative (Negative); Specific Gravity Urine 1.019 (1.000-1.030); Urobilinogen Urine Negative (Negative); pH Urine 5.5 (4.5-7.5)
[2022-08-05] MEDS: levoFLOXacin/D5W 750 MG/150 ML BAG IV SCH (09:55)
[2022-08-05] MEDS: FUROSEMIDE 40 MG TAB PO SCH (14:23)
--- NOTE | 2022-08-05 14:35 | Pharmacy Report ---
Pharmacy Glycemic Short Note 2 - Date of Service August 05, 2022 - Glycemic Short BSG Results (Last 24 hours): 08/04/22 08/04/22 08/05/22 16:26 20:09 07:41 Glucose 195 H POC Glucose 73 158 H 08/05/22 08/05/22 07:49 11:45 Glucose POC Glucose 177 H 231 H OUTPATIENT ANTIDIABETIC REGIMEN: * Levemir 70 units SC BID * Novolog 45 units SC with breakfast and 50 units SC with dinner * Metformin ER 1500 mg PO daily * Jardiance 25 mg PO daily HbA1c: 9.7% (08/02/22) ASSESSMENT: * Patient's BSGs yesterday were [phone] mg/dL. Patient received 74 units of insulin (30 units of basal and 43 units of bolus). * Patient felt hypoglycemic at 73 mg/dL and refused all dinner insulin. * Continue NPH. Lower dinnertime dose. * Loosen CF as this is the most likely culprit for BSG at dinnertime. 08/05/22 * Patient's BSGs yesterday were [phone] mg/dL. Patient received 71 units of insulin (40 units of basal and 31 units of bolus). * Patient's BSGs today are 189-186 mg/dL. * Increase evening dose of NPH from 10 to 15 as fasting BSG elevated. * Continue current Novolog as BSGs reasonable. BACKGROUND * CF is a 62 year old male admitted overnight due to encephalopathy (likely multifactorial in nature) * Patient with significant outpatient insulin requirements + multiple oral agents * Reportedly intolerant to Lantus. Levemir is now non-formulary so will use NPH BIDM. * Will initiate insulin dosing with assumption that inpatient insulin requirements will be significantly less than outpatient ones * Will increase doses as needed PLAN FOR INPATIENT GLYCEMIC CONTROL: * Hold outpatient oral diabetes medications * Basal insulin * NPH 30 SQ in the morning * NPH 10 units SC with dinner * Bolus insulin * NovoLog per scale ACHS or Q6hrs while NPO * Goal Range: Low 110 mg/dL - High 140 mg/dL * Correction Factor: 20 mg/dL/unit * Nutritional / Prandial insulin per carb ratio of 1 unit per 4 grams CHO consumed
[2022-08-05 16:02] LABS: Amphetamine Urine, Confirm 263 ng/mL (<250); Methamphetamine, Ur Confirm 1030 ng/mL (<250)
[2022-08-05] MEDS ORDERED: INSULIN HUMAN NPH SC SCH (17:00)
[2022-08-06 07:26] LABS: Hemoglobin 17.3 g/dl (14.0-18.0); Mean Corpuscular Hemoglobin 28.8 pg (25.0-34.0); Mean Corpuscular Hgb Conc 33.3 g/dL (32.0-36.0); Mean Corpuscular Volume 86.7 fL (80.0-100.0); Mean Platelet Volume 9.8 fL (9.4-12.4); Platelet Count 265 K/uL (130-400); RDW Coefficient of Variation 13.2 % (11.5-14.5); White Blood Count 12.09 K/ul (4.8-10.8)
[2022-08-06 07:58] LABS: Calcium 8.8 mg/dl (8.5-10.1); Creatinine Clr Calc Pharmacy 117.1 ml/min; Est GFR (African American) 108.7 ml/min; Est GFR (Non-African American) 93.8 ml/min; Magnesium 1.8 mg/dl (1.7-2.4); Phosphorus 3.5 mg/dl (2.5-4.9); Potassium 4.2 mmol/L (3.5-5.1)
[2022-08-06] MEDS: INSULIN ASPART PER UNIT SC SCH ×2 (08:41→12:12)
[2022-08-06] MEDS: INSULIN HUMAN NPH SC SCH (08:42)
[2022-08-06] MEDS: ENOXAPARIN INJ 40 MG/0.4 ML SYR SQ SCH (08:43)
[2022-08-06] MEDS: levoFLOXacin/D5W 750 MG/150 ML BAG IV SCH (08:43)
[2022-08-06] MEDS: SPIRONOLACTONE 25 MG TAB PO SCH (08:44)
[2022-08-06] MEDS: FUROSEMIDE 80 MG TAB PO SCH (08:44)
[2022-08-06] MEDS: SERTRALINE HCL 100 MG TABLET PO SCH (08:44)
[2022-08-06] MEDS: lisinopril 40 MG TAB PO SCH (08:44)
[2022-08-06] MEDS: TAMSULOSIN HCL 0.4 MG CAP PO SCH (08:44)
[2022-08-06] MEDS: FLUTICASONE FUROATE 200MCG 14 PUFFS/INHALER INH SCH (08:45)
[2022-08-06] MEDS: buPROPion XL 300 MG TABCR PO SCH (08:45)
[2022-08-06] MEDS: METOPROLOL SUCC 50MG EXT REL TAB PO SCH (08:45)
[2022-08-06] MEDS: ASPIRIN 81 MG ECTAB PO SCH (08:46)
[2022-08-06] MEDS: DOXYCYCLINE HYCLATE 100 MG CAP PO SCH (08:46)
[2022-08-06] MEDS: MULTIVITAMIN TAB PO SCH (08:46)
--- NOTE | 2022-08-06 09:01 | Hospitalist Progress Note ---
Date of Service August 06, 2022 Assessment & Plan (1) Encephalopathy: Plan: Acute Metabolic Encephalopathy Likely Multifactorial: Gram Negative Bacteremia, Hypercarbia, Substance abuse --CT Head: No acute intracranial hemorrhage, no evidence of acute territorial infarction or other acute intracranial disease process. Toxicology Screen: Positive for methamphetamine No focal deficits on exam Fall Precautions Encephalopathy resolved Acinetobacter Bacteremia Suspected Source:Leg cellulitis (admits to having intermittent bleed due to varicose veins) Blood Cx: 10/12: Acinetobacter, coagulase-negative staph not lugdunensis Repeat blood cultures negat. in 48 hrs On cefdinir, Levaquin>> transition to doxycycline, Levaquin as per ID Discussed with Tomi ID Dr. Haines on 08/04/22: Will likely need 14-day course of oral doxycycline and IV Levaquin Appreciate ID Input Hypercapnic respiratory failure Likely OHS, ALEJANDRA --CXR:No acute chest disease. Cardiomegaly is noted. BiPAP PRN while sleeping and HS Appreciate Pulmonology Input Scheduled for Sleep Study as outpatient Will also need PFTs as outpatient Recommended to avoid driving for now Bilateral LE cellulitis Varicose Veins H/O PVD Reports LE pain at rest and with ambulation Venous Doppler:There is no sonographic evidence of deep venous thrombosis identi fied in the right or left lower extremity. Blood Cx:as above Continue Doxycycline>>changed as above Appreciate Vascular surgery Input: Conservative management with regular exercise, leg elevation, compression therapy Continue Aspirin Pt may benefit from outpt vascular surg. visit Uncontrolled DM II Blood Glucose levels variable as per patient ? Compliance HbA1C 9.7 Hold Metformin Insulin per protocol Monitor BGs Consulted outreach educator, glycemic pharmacy breastfeeding educator consulted Will need close follow up w/ MTM clinic as outpt Chronic diastolic heart failure Nonischemic cardiomyopathy ECHO: EF 55 to 60%. Moderate concentric LVH. Left atrium is mildly dilated. Diastolic dysfunction, grade 2. Continue diuretics Monitor volume status Nonobstructive CAD PVD Continue Aspirin, Metoprolol Hypertension Continue current meds Monitor H/O HCV S/P failed treatment with interferon H/O Ocular toxoplasmosis As per records Anxiety/mood disorder Continue home Meds Monitor Morbid Obesity BMI 39.5 Encourage Lifestyle modifications DVT Px: Lovenox SQ Code Status Full code Admission and Anticipated Discharge Date Admission Date: August 01, 2022 Subjective Patient is seen in follow up of AMS, bacteremia Per ID on doxy and Levaquin now, repeat blood cultx nagat. for 48 hrs DM uncontrolled - will need MTM outpt follow up Mental status seem to be back to baseline Pt's sister at the bedside yesterday and updated Currently patient is laying in bed, in no acute distress, ultrasound-guided line was just placed Feeling well overall and inquiring about going home No other new complaints Denies chest pain, dyspnea, dizziness, nausea, abd pain Review of Systems Review of Systems: All systems reviewed & are unremarkable except as noted in Subjective Physical Exam Physical Exam: General Appearance:Morbid Obesity, no apparent distress Head: normocephalic, Atraumatic Eyes: normal inspection, EOMI Neck: supple, Trachea midline Respiratory/Chest: Normal breath sounds, CTA, No accessory muscle use Cardiovascular: S1, S2, No murmur Abdomen/GI:Soft, Non tender, Bowel sounds present, obese abdomen Extremities/Musculoskeletal:normal inspection, B/L LE edema, erythema, Varicose veins Neurologic/Psych: Alert oriented answering simple questions appropriately, moves extremities Skin: normal color, warm Results & Data Results & Data ([facility]) Vital Signs (Past 12 Hours) Vital Signs Temp Pulse Pulse Resp BP BP Pulse Ox 08/06/22 07:15 36.7 C 63 18 148/80 H 94 08/06/22 06:06 67 08/06/22 02:15 36.5 C 51 L 20 93/58 L 93 08/05/22 22:21 56 L 08/05/22 22:44 37.3 C 56 L 18 130/78 93 O2 Del Method 08/06/22 07:15 Room Air 08/06/22 06:06 08/06/22 02:15 Room Air 08/05/22 22:21 08/05/22 22:44 Room Air Laboratory Results 08/06/22 08/06/22 08/06/22 Range/Units 07:39 07:02 07:02 WBC 12.09 H (4.8-10.8) K/ul RBC 6.00 (4.63-6.08) M/uL Hgb 17.3 (14.0-18.0) g/dl Hct 52.0 H (40.1-51.0) % MCV 86.7 (80.0-100.0) fL MCH 28.8 (25.0-34.0) pg MCHC 33.3 (32.0-36.0) g/dL RDW Std Deviation 41.0 (36.4-46.3) fL RDW Coeff of Marc 13.2 (11.5-14.5) % Plt Count 265 (130-400) K/uL MPV 9.8 (9.4-12.4) fL Sodium 138 (136-145) mmol/L Potassium 4.2 (3.5-5.1) mmol/L Chloride 104 (98-107) mmol/L Carbon Dioxide 28 (21-32) mmol/L Anion Gap 6 (3-11) BUN 20 (6-23) mg/dl Creatinine 0.87 (0.6-1.4) mg/dl Est Cr Clr Drug Dosing 117.1 ml/min Est GFR ( Amer) 108.7 ml/min Est GFR (Non-Af Amer) 93.8 ml/min BUN/Creatinine Ratio 23.0 H (10-20) Glucose 167 H (70-99(Fasting)) mg/dl POC Glucose 155 H (70-99) mg/dl Calcium 8.8 (8.5-10.1) mg/dl Phosphorus 3.5 (2.5-4.9) mg/dl Magnesium 1.8 (1.7-2.4) mg/dl Urine Color Urine Appearance (Clear) Urine pH (4.5-7.5) Ur Specific [place] (1.000-1.030) Urine Protein (Negative) Urine Glucose (UA) (Negative) Urine Ketones (Negative) Urine Blood (Negative) Urine Nitrite (Negative) Urine Bilirubin (Negative) Urine Urobilinogen (Negative) Ur Leukocyte Esterase (Negative) U Amphetamines Confirm (<250) ng/mL U Methamphetamin Confrm (<250) ng/mL Drug Screen Comment 08/05/22 08/05/22 08/05/22 Range/Units 21:57 16:43 11:45 WBC (4.8-10.8) K/ul RBC (4.63-6.08) M/uL Hgb (14.0-18.0) g/dl Hct (40.1-51.0) % MCV (80.0-100.0) fL MCH (25.0-34.0) pg MCHC (32.0-36.0) g/dL RDW Std Deviation (36.4-46.3) fL RDW Coeff of Marc (11.5-14.5) % Plt Count (130-400) K/uL MPV (9.4-12.4) fL Sodium (136-145) mmol/L Potassium (3.5-5.1) mmol/L Chloride (98-107) mmol/L Carbon Dioxide (21-32) mmol/L Anion Gap (3-11) BUN (6-23) mg/dl Creatinine (0.6-1.4) mg/dl Est Cr Clr Drug Dosing ml/min Est GFR ( Amer) ml/min Est GFR (Non-Af Amer) ml/min BUN/Creatinine Ratio (10-20) Glucose (70-99(Fasting)) mg/dl POC Glucose 103 H 147 H 231 H (70-99) mg/dl Calcium (8.5-10.1) mg/dl Phosphorus (2.5-4.9) mg/dl Magnesium (1.7-2.4) mg/dl Urine Color Urine Appearance (Clear) Urine pH (4.5-7.5) Ur Specific [place] (1.000-1.030) Urine Protein (Negative) Urine Glucose (UA) (Negative) Urine Ketones (Negative) Urine Blood (Negative) Urine Nitrite (Negative) Urine Bilirubin (Negative) Urine Urobilinogen (Negative) Ur Leukocyte Esterase (Negative) U Amphetamines Confirm (<250) ng/mL U Methamphetamin Confrm (<250) ng/mL Drug Screen Comment 08/05/22 08/01/22 Range/Units 09:00 19:34 WBC (4.8-10.8) K/ul RBC (4.63-6.08) M/uL Hgb (14.0-18.0) g/dl Hct (40.1-51.0) % MCV (80.0-100.0) fL MCH (25.0-34.0) pg MCHC (32.0-36.0) g/dL RDW Std Deviation (36.4-46.3) fL RDW Coeff of Marc (11.5-14.5) % Plt Count (130-400) K/uL MPV (9.4-12.4) fL Sodium (136-145) mmol/L Potassium (3.5-5.1) mmol/L Chloride (98-107) mmol/L Carbon Dioxide (21-32) mmol/L Anion Gap (3-11) BUN (6-23) mg/dl Creatinine (0.6-1.4) mg/dl Est Cr Clr Drug Dosing ml/min Est GFR ( Amer) ml/min Est GFR (Non-Af Amer) ml/min BUN/Creatinine Ratio (10-20) Glucose (70-99(Fasting)) mg/dl POC Glucose (70-99) mg/dl Calcium (8.5-10.1) mg/dl Phosphorus (2.5-4.9) mg/dl Magnesium (1.7-2.4) mg/dl Urine Color Yellow Urine Appearance Clear (Clear) Urine pH 5.5 (4.5-7.5) Ur Specific [place] 1.019 (1.000-1.030) Urine Protein Negative (Negative) Urine Glucose (UA) 2+ H (Negative) Urine Ketones Negative (Negative) Urine Blood Negative (Negative) Urine Nitrite Negative (Negative) Urine Bilirubin Negative (Negative) Urine Urobilinogen Negative (Negative) Ur Leukocyte Esterase Negative (Negative) U Amphetamines Confirm 263 H (<250) ng/mL U Methamphetamin Confrm 1030 H (<250) ng/mL Drug Screen Comment SEE NOTE Medications Administered Current Inpatient Medications Acetaminophen (Acetaminophen 325 Mg Tab) 650 mg PO Q4H PRN PRN Reason: Pain or Fever Stop: 09/01/22 00:38 Last Admin: 08/02/22 19:11 Dose: 650 mg Acetaminophen/Codeine Phosphate (Acetaminophen W/Codeine #3 1 Tab) 1 tab PO QID PRN PRN Reason: pain not relieved by tylenol Stop: 09/01/22 00:00 Aspirin (Aspirin 81 Mg Ectab) 81 mg PO DAILY [facility] Stop: 09/01/22 08:59 Last Admin: 08/06/22 08:46 Dose: 81 mg Bupropion HCl (Bupropion Xl 300 Mg Tabcr) 300 mg PO DAILY [facility] Stop: 09/01/22 08:59 Last Admin: 08/06/22 08:45 Dose: 300 mg Dextrose (Dextrose 50% 50 Ml Syringe) 25 - 50 ml IV UD PRN; Protocol PRN Reason: Hypoglycemia Protocol Stop: 09/01/22 00:00 Doxycycline Hyclate (Doxycycline Hyclate 100 Mg Cap) 100 mg PO BID [facility] Stop: 08/18/22 11:44 Last Admin: 08/06/22 08:46 Dose: 100 mg Enoxaparin Sodium (Enoxaparin Inj 40 Mg/0.4 Ml Syr) 40 mg SQ QAM [facility] Stop: 09/01/22 08:59 Last Admin: 08/06/22 08:43 Dose: 40 mg Fluticasone Furoate (Fluticasone Furoate 200mcg 14 Puffs/Inhaler) 1 puffs INH DAILY [facility] Stop: 09/01/22 08:59 Last Admin: 08/06/22 08:45 Dose: 1 puffs Furosemide (Furosemide 80 Mg Tab) 80 mg PO QAM [facility] Stop: 09/01/22 08:59 Last Admin: 08/06/22 08:44 Dose: 80 mg Furosemide (Furosemide 40 Mg Tab) 40 mg PO Q24H [facility] Stop: 09/01/22 13:59 Last Admin: 08/05/22 14:23 Dose: 40 mg Glucagon (Glucagon For Inj 1 Mg Vial) 1 mg SQ UD PRN; Protocol PRN Reason: Hypoglycemia Protocol Stop: 09/01/22 00:00 Glucose (Glucose 40% Gel 15 Gm Tube) 15 - 30 gm PO UD PRN; Protocol PRN Reason: Hypoglycemia Protocol Stop: 09/01/22 00:00 Glucose (Glucose 10 Tab/Tube) 4 - 8 tab PO UD PRN; Protocol PRN Reason: Hypoglycemia Treatment Stop: 09/01/22 00:00 Promethazine HCl 12.5 mg/ (Sodium Chloride) 50.5 mls @ 202 mls/hr IV Q6H PRN PRN Reason: Nausea And Vomiting Stop: 09/01/22 00:00 Levofloxacin/Dextrose (Levaquin/D5w) 750 mg in 150 mls @ 100 mls/hr IV DAILY@0900 [facility]; Protocol Stop: 08/17/22 08:59 Last Admin: 08/06/22 08:43 Dose: 100 mls/hr Insulin Aspart (Insulin Aspart Per Unit) 0 units SC ACHS [facility] Stop: 09/01/22 00:29 Last Admin: 08/06/22 08:41 Dose: 6 units Insulin Human NPH (Insulin Human Nph) 30 units SC DAILY@0730 [facility] Stop: 09/03/22 07:29 Last Admin: 08/06/22 08:42 Dose: 30 units Insulin Human NPH (Insulin Human Nph) 10 units SC DAILY@1700 [facility] Stop: 09/04/22 16:59 Last Admin: 08/05/22 17:32 Dose: 10 units Lisinopril (Lisinopril 40 Mg Tab) 40 mg PO DAILY [facility] Stop: 09/01/22 08:59 Last Admin: 08/06/22 08:44 Dose: 40 mg Metoprolol Succinate (Metoprolol Succ 50mg Ext Rel Tab) 50 mg PO BID [facility] Stop: 09/01/22 00:00 Last Admin: 08/06/22 08:45 Dose: 50 mg Miscellaneous (Carbohydrates For Hypoglycemia ) 15 - 30 gm PO UD PRN PRN Reason: Hypoglycemia Protocol Stop: 09/01/22 00:00 Miscellaneous Information (Pharmacy Glycemic Mgmt Consult) 1 each N/A UD PRN; Protocol PRN Reason: Consult Stop: 09/01/22 00:43 Multivitamins (Multivitamin Tab) 1 tab PO QAM [facility] Stop: 09/01/22 08:59 Last Admin: 08/06/22 08:46 Dose: 1 tab Nitroglycerin (Nitroglycerin Sl 0.4 Mg/Tab Tab) 0.4 mg SL UD PRN PRN Reason: Chest Pain Stop: 09/01/22 00:00 Sertraline HCl (Sertraline Hcl 100 Mg Tablet) 100 mg PO DAILY [facility] Stop: 09/01/22 08:59 Last Admin: 08/06/22 08:44 Dose: 100 mg Spironolactone (Spironolactone 25 Mg Tab) 25 mg PO DAILY [facility] Stop: 09/01/22 08:59 Last Admin: 08/06/22 08:44 Dose: 25 mg Tamsulosin HCl (Tamsulosin Hcl 0.4 Mg Cap) 0.4 mg PO DAILY [facility] Stop: 09/01/22 08:59 Last Admin: 08/06/22 08:44 Dose: 0.4 mg
--- NOTE | 2022-08-06 11:56 | Discharge Summary ---
Date of Service August 06, 2022 Admission HPI Per Admitting Provider History obtained from patient, family, and records. Medical history significant for chronic diastolic heart failure secondary to nonischemic cardiomyopathy (EF 70% TTE 2018), nonobstructive CAD as per records, PVD, hypertension, DM2 insulin requiring, history of HCV sp failed treatment with interferon, history of ocular toxoplasmosis, anxiety/mood disorder, past history IVDU, history of methamphetamine use, possible ALEJANDRA as per records Last April 2022 for hyperglycemia and disequilibrium. Patient seen at [facility] sleep disorders clinic last February 2022 for snoring and fatigue symptoms. Overnight polysomnography split protocol recommended for suspected ALEJANDRA. Patient instructed to avoid driving while sleepy/drowsy. Outpatient sleep study contemplated on 09/07/2022. Last week, patient legs noted to be more swollen and painful than usual. Transient chest pain yesterday without unusual shortness of breath. Patient not sure about weight gain. Compliant with home medications, denies dietary discretion. No fever.. Patient complaining of chills. Patient also sleeping more than usual. Blood sugars as high as 400 at home despite patient compliance with regimen. Admits to methamphetamine intake. Last night, patient felt disoriented that he had to tub puller several times because he felt like he was going off the road and out of his eli. Patient accompanied by sister to urgent care appointment today. Patient directed to ER for further evaluation. IV vancomycin administered at the ER for cellulitis. MEDICAL HISTORY: As above. SURGICAL HISTORY: Hernia repair, scalp laceration repair FAMILY HISTORY: Heart disease, diabetes. PERSONAL AND SOCIAL HISTORY: Nonsmoker. No chronic ETOH intake. Unemployed. war vet. Admission Exam Per Admitting Provider GENERAL: Comfortable, obese, pleasant, episodic lethargy, no respiratory distress SKIN: Normal color, warm HEENT: [place] palpebral conjunctivae, no ptosis, dry buccal mucosa NECK : Supple, short neck, no tenderness CHEST : Decreased breath sounds, no tenderness HEART : RRR, no obvious murmurs ABDOMEN: distention, nontender EXTREMITIES : Indurated LE swelling bilateral with minimal tenderness, no other conspicuous deformities noted NEUROLOGIC : Episodic lethargy, no facial asymmetry, gait and stance not assessed Principal Diagnosis Acute metabolic encephalopathy Acinetobacter Bacteremia LE cellulitis Discharge Exam General Appearance:Morbid Obesity, no apparent distress Head: normocephalic, Atraumatic Eyes: normal inspection, EOMI Neck: supple, Trachea midline Respiratory/Chest: Normal breath sounds, CTA, No accessory muscle use Cardiovascular: S1, S2, No murmur Abdomen/GI:Soft, Non tender, Bowel sounds present, obese abdomen Extremities/Musculoskeletal:normal inspection, B/L LE edema, erythema, Varicose veins Neurologic/Psych: Alert oriented answering simple questions appropriately, moves extremities Skin: normal color, warm Discharge Data Allergies Allergy/AdvReac Type Severity Reaction Status Date / Time permethrin Allergy Intermediate swelling Verified 08/01/22 20:58 shrimp Allergy Intermediate SWELLS Verified 08/01/22 20:58 sulfamethoxazole Allergy Unknown Verified 08/01/22 20:59 [From Bactrim] trimethoprim [From Bactrim] Allergy Unknown Verified 08/01/22 20:59 amoxicillin AdvReac Intermediate HIVES Verified 08/01/22 20:58 clavulanic acid AdvReac Intermediate HIVES Verified 08/01/22 20:58 insulin glargine AdvReac CHF Verified 08/01/22 20:59 [From Lantus U-100 Insulin] Consultations 08/01/22 19:10 ED Decision to Admit Stat 08/01/22 21:46 Consult Pulmonology Routine 08/03/22 07:00 Consult Vascular Surgery Routine 08/04/22 07:00 Consult Infectious Diseases Routine Ordered Studies 08/01/22 17:51 CT head/brain wo con Stat Findings: Patient is status post left craniotomy. There is no evidence of acute hemorrhage or CT evidence of infarct. Arachnoid cyst at the anterior right temporal lobe is unchanged. Imaged portions of the paranasal sinuses and mastoid air cells are clear. The orbits appear normal. There are no acute fractures of the calvaria or scalp swelling. Impression: No acute intracranial hemorrhage, no evidence of acute territorial infarction or other acute intracranial disease process. 08/01/22 21:33 US venous duplex leg [US venous doppler LE BI] Urgent FINDINGS: There is no sonographic evidence of deep venous thrombosis identified in the right or left lower extremity. The common femoral, superficial femoral, and popliteal veins are patent and normally compressible bilaterally. The greater saphenous vein and the profunda femoris vein at the junction with the common femoral vein are clear in both legs. The visualized calf veins are patent bilaterally. IMPRESSION: There is no sonographic evidence of deep venous thrombosis identified in the right or left lower extremity. Diabetes Follow up Diabetes Follow-up Needed for HgbA1c >9% Hospital Course (1) Encephalopathy: Acute Metabolic Encephalopathy Likely Multifactorial: Gram Negative Bacteremia, Hypercarbia, Substance abuse --CT Head: No acute intracranial hemorrhage, no evidence of acute territorial infarction or other acute intracranial disease process. Toxicology Screen: Positive for methamphetamine No focal deficits on exam Fall Precautions Encephalopathy resolved Acinetobacter Bacteremia Suspected Source:Leg cellulitis (admits to having intermittent bleed due to varicose veins) Blood Cx: 10/12: Acinetobacter, coagulase-negative staph not lugdunensis Repeat blood cultures negat. in 48 hrs On cefdinir, Levaquin>> transition to doxycycline, Levaquin as per ID Discussed with Tomi ID Dr. Haines on 08/04/22: Will likely need 14-day course of oral doxycycline and IV Levaquin Appreciate ID Input Hypercapnic respiratory failure Likely OHS, ALEJANDRA --CXR:No acute chest disease. Cardiomegaly is noted. BiPAP PRN while sleeping and HS Appreciate Pulmonology Input Scheduled for Sleep Study as outpatient Will also need PFTs as outpatient Recommended to avoid driving for now Bilateral LE cellulitis Varicose Veins H/O PVD Reports LE pain at rest and with ambulation Venous Doppler:There is no sonographic evidence of deep venous thrombosis identified in the right or left lower extremity. Blood Cx:as above Continue Doxycycline>>changed as above Appreciate Vascular surgery Input: Conservative management with regular exercise, leg elevation, compression therapy Continue Aspirin Pt may benefit from outpt vascular surg. visit Uncontrolled DM II Blood Glucose levels variable as per patient ? Compliance HbA1C 9.7 Hold Metformin Insulin per protocol Monitor BGs Consulted certified diabetes educator, glycemic pharmacy clinical nurse educator consulted Will need close follow up w/ [facility] clinic as outpt Chronic diastolic heart failure Nonischemic cardiomyopathy ECHO: EF 55 to 60%. Moderate concentric LVH. Left atrium is mildly dilated. Diastolic dysfunction, grade 2. Continue diuretics Monitor volume status Nonobstructive CAD PVD Continue Aspirin, Metoprolol Hypertension Continue current meds Monitor H/O HCV S/P failed treatment with interferon H/O Ocular toxoplasmosis As per records Anxiety/mood disorder Continue home Meds Monitor Morbid Obesity BMI 39.5 Encourage Lifestyle modifications Total Time Total Time Spent Total Time Spent (In Minutes): 40 Discharge Plan Discharge Items Patient Disposition: Home - Self-Care Reason For Visit: ENCEPHALOPATHY Discharge Diagnosis: Acute metabolic encephalopathy Acinetobacter Bacteremia LE cellulitis Activity: Per Instructions section Non-emergency contact: Primary Care Provider Call non-emergency contact if: you have any medication questions and your symptoms worsen Follow-up/Referrals: Willam Fofana, [Primary Care Provider] - (Date & Time 08/12/2022 11:00 AM Provider Yobani Edwards III, MD Department [facility] ) Diet: Carb Consistent or DM2 and Heart Healthy Fluids: 2000ml (8 cups) Addtl Attending Provider Instructions: Follow-up with your primary care doctor, the appointment was scheduled for you for August 12. Your diabetes is uncontrolled, make sure to follow up with your primary care doctor, and [facility] clinic. Continue antibiotics, doxycycline by mouth 100 mg twice a day, and IV Levaquin daily for next 12 days. Pending Studies at Discharge: Yes Studies:: Final repeat blood cultures Stand-Alone Forms: My [facility], Smoking Cessation Medications and DC Order Prescriptions: New doxycycline hyclate 100 mg Capsule 100 mg PO BID 12 Days Qty: 24 0RF Continued furosemide 40 mg Tablet 80 mg PO QAM Rx Instructions: 40 mg orally; TAKES 80 MG QAM, THEN 40 MG QPM. spironolactone 25 mg Tablet 25 mg PO DAILY ascorbic acid (vitamin C) [Vitamin C] 500 mg Tablet 1,000 mg PO DAILY lisinopril 40 mg Tablet 40 mg PO DAILY metoprolol succinate 50 mg tablet extended release 24 hr 50 mg PO BID tamsulosin 0.4 mg capsule 0.4 mg PO DAILY fluticasone propionate [Flovent HFA] 220 mcg/actuation HFA aerosol inhaler 2 puff INHALATION BID Levemir FlexTouch U-100 Insuln 100 unit/mL (3 mL) insulin pen 70 unit SUBCUT BID multivitamin Tablet 1 tab PO DAILY furosemide [Lasix] 40 mg Tablet 40 mg PO .QAFTERNOON sertraline 100 mg tablet 100 mg PO DAILY aspirin [Aspir-Low] 81 mg Tablet,Delayed Release (Dr/Ec) 81 mg PO DAILY nitroglycerin [Nitrostat] 0.4 mg Tablet, Sublingual 0.4 mg sublingual DIRECTED PRN (Reason: Chest Pain) albuterol sulfate 90 mcg/actuation HFA aerosol inhaler 2 puff INHALATION Q4 PRN (Reason: Shortness Of Breath Or Wheezing) insulin aspart U-100 100 unit/mL (3 mL) insulin pen See Rx Instructions .ROUTE .COMPLEX Rx Instructions: 45 UNITS WITH BREAKFAST, 50 UNITS WITH DINNER DIRECTED metformin 750 mg Tablet Extended Release 24 Hr 1,500 mg PO DAILY bupropion HCl 300 mg tablet extended release 24 hr 300 mg PO DAILY Probiotic 3 billion cell Capsule 0 mmu cells PO DAILY Rx Instructions: administer with a meal Jardiance 25 mg tablet 25 mg PO DAILY Chromium-Cinnamon 1 tab PO DAILY Discharge Orders: Discharge Order (Routine); Ordered 08/06/22 Ordered By: Cuong Black Admission Data Admit Date/Time: 08/01/22 21:38 Attending Provider: Cuong Black Admit Provider: Khoa Tong Primary Care Provider: Willam Fofana Other Providers: Khoa Tong ; Braulio George ; Abel Fox ; Paul Rider ; Jeferson Rondon ; Bijal Tovar ; Giuliano Vasquez ; Benjie Kelley ; Santos Garcia ; Mau Keating I. ; Arun Sadler II ; Joelle Ford ; Bhanu Martinez ; Isaac Naqvi ; Leatha Haines ; Zak Denny ; [facility]
[2022-08-06] MEDS: FUROSEMIDE 40 MG TAB PO SCH (13:43)
[2022-08-06 22:52] LABS: A calco-baum cmplx NotReported Not Detected (NotDetected); Bact fragilis Not Reported Not Detected (NotDetected); C auris Not Reported Not Detected (NotDetected); Calbicans Not Reported Not Detected (NotDetected); Candida glabrata Not Reported Not Detected (NotDetected); Candida krusei Not Reported Not Detected (NotDetected); Cneoformans/gatti Not Reported Not Detected (NotDetected); Cparapsilosis Not Reported Not Detected (NotDetected); Ctropicalis Not Reported Not Detected (NotDetected); E cloacae compx Not Reported Not Detected (NotDetected); Efaecalis Not Reported Not Detected (NotDetected); Efaecium Not Reported Not Detected (NotDetected); Enterobacterales Not Reported Not Detected (NotDetected); Escherichia coli Not Reported Not Detected (NotDetected); H influenzae Not Reported Not Detected (NotDetected); K aerogenes Not Reported Not Detected (NotDetected); Koxytoca Not Reported Not Detected (NotDetected); Kpneumoniae grp Not Reported Not Detected (NotDetected); Lmonocyt Not Reported Not Detected (NotDetected); N meningitidis Not Reported Not Detected (NotDetected); P aeruginosa Not Reported Not Detected (NotDetected); Proteus spp Not Reported Not Detected (NotDetected); Salmonella spp Not Reported Not Detected (NotDetected); Smarcescens Not Reported Not Detected (NotDetected); Staph lugdunensis Not Reported Not Detected (NotDetected); Staph spp. Not Reported DETECTED (NotDetected); Staphaureus Not Reported Not Detected (NotDetected); Staphepi Not Reported DETECTED (NotDetected); Staphylococcus spp. DETECTED (NotDetected); Stenmaltophilia Not Reported Not Detected (NotDetected); Strep agal(GrpB) Not Reported Not Detected (NotDetected); Strep pneum Not Reported Not Detected (NotDetected); Strep pyog (GrpA) Not Reported Not Detected (NotDetected); Strep spp Not Reported Not Detected (NotDetected); mecAC Resistant Gene Not Detected (NotDetected)
[2022-08-06 23:06] LABS: Staphylococcus epidermidis DETECTED (NotDetected)
== END 2022-08-06 14:34 | disposition home health service (06) | DRG 871 ==
LOC: ED 17:19 → 2S 21:38 → SUATTDRO 21:38 → 2S 23:02 → 2N 08-03 08:56

== ENCOUNTER 2022-10-07 03:41 | Inpatient (IN) ==
[2022-10-07] MEDS ORDERED: SODIUM CHLORIDE 0.9% 1000ML 1,000 ML IV STA (03:45)
--- NOTE | 2022-10-07 03:48 | Emergency Department Note ---
History of Present Illness General Chief complaint: Hyperglycemia Stated complaint: Hyperglycemia, SOB, Weakness Time Seen by Provider: 10/07/22 03:42 History of Present Illness 62-year-old male presents emergency department via EMS has a history of diabetes he states his blood sugar was greater than 400 at 7 PM this evening. Patient did use insulin he also takes pills as well. Patient states that his blood sugar at times has been labile. Patient also states some urinary tract infection symptoms with hesitancy urgency and frequency. Patient called EMS this evening as he was concerned about his blood sugar initially being in the 400 range and now below 300. Patient has no other complaints no nausea vomiting diarrhea no chest pain states generalized weakness he states he has increased work of breathing when he gets anxious due to his blood sugar. Home Medications Medication Instructions Recorded Confirmed Type furosemide 40 mg tablet 80 mg PO QAM 01/04/19 09/21/22 History lisinopril 40 mg tablet 40 mg PO QAM 01/04/19 09/21/22 History spironolactone 25 mg tablet 25 mg PO DAILY 01/04/19 09/21/22 History metoprolol succinate 50 mg 50 mg PO BID 07/13/19 09/21/22 History tablet,extended release 24 hr tamsulosin 0.4 mg capsule 0.4 mg PO DAILY 08/14/20 09/21/22 History fluticasone propionate 220 2 puff inhalation BID 04/24/22 09/21/22 History mcg/actuation HFA aerosol inhaler (Flovent HFA) Chromium-Cinnamon 1 tab PO DAILY 08/01/22 09/21/22 History albuterol sulfate 90 mcg/actuation 2 puff inhalation Q4 PRN Shortness 08/01/22 09/21/22 History aerosol inhaler Of Breath Or Wheezing aspirin 81 mg tablet,delayed 81 mg PO DAILY 08/01/22 09/21/22 History release bupropion HCl 300 mg 24 hr tablet, 300 mg PO DAILY 08/01/22 09/21/22 History extended release empagliflozin 25 mg tablet 25 mg PO DAILY 08/01/22 09/21/22 History (Jardiance) furosemide 40 mg tablet (Lasix) 40 mg PO .QAFTERNOON 08/01/22 09/21/22 History insulin aspart U-100 100 unit/mL See Rx Instructions .Route .COMPLEX 08/01/22 09/21/22 History (3 mL) subcutaneous pen metformin 750 mg tablet,extended 1,500 mg PO DAILY 08/01/22 09/21/22 History release 24 hr nitroglycerin 0.4 mg sublingual 0.4 mg sublingual DIRECTED PRN 08/01/22 09/21/22 History tablet (Nitrostat) Chest Pain sertraline 100 mg tablet 100 mg PO DAILY 08/01/22 09/21/22 History ascorbic acid (vitamin C) 500 mg 1,000 mg PO DAILY 09/21/22 09/21/22 History tablet (Vitamin C) bacillus coagulans-inulin 1 1 cap PO DAILY 09/21/22 09/21/22 History billion cell-250 mg capsule insulin detemir U-100 100 unit/mL 75 unit subcut AMPM 09/21/22 09/21/22 History (3 mL) subcutaneous pen (Levemir FlexTouch U-100 Insulin) multivitamin with minerals 1 tab PO DAILY 09/21/22 09/21/22 History (Multiple Vitamin-Minerals tablet) sildenafil 100 mg tablet 50 - 100 mg PO ONCE PRN 1 hour 09/21/22 09/21/22 History before sex cephalexin 500 mg capsule 500 mg PO QID 7 days #28 caps 10/07/22 Rx Allergies Allergy/AdvReac Type Severity Reaction Status Date / Time permethrin Allergy Intermediate swelling Verified 08/18/22 07:50 shrimp Allergy Intermediate SWELLS Verified 08/18/22 07:50 sulfamethoxazole Allergy Unknown Verified 08/18/22 07:50 [From Bactrim] trimethoprim [From Bactrim] Allergy Unknown Verified 08/18/22 07:50 amoxicillin AdvReac Intermediate HIVES Verified 08/18/22 07:50 clavulanic acid AdvReac Intermediate HIVES Verified 08/18/22 07:50 insulin glargine AdvReac CHF Verified 08/18/22 07:50 [From Lantus U-100 Insulin] Past Med/Surg History Medical History Accidental fall tripped over dog bed, hit back of head, checked in the ED poss concussion Anxiety Congestive heart failure Depression Diabetes mellitus, type 2 Dysequilibrium H/O drug abuse Hepatitis C Hypertension Nonischemic cardiomyopathy "prior EF 30% per Epic records. echo 02/2015- EF 54%" Surgical History History of cardiac cath 03/2015 @ [facility], no stents follows with Dr. Monet History of colonoscopy History of tooth extraction History of umbilical hernia repair x2 History of wisdom tooth extraction Family History Mother Family history of diabetes mellitus Father Family history of diabetes mellitus Other No family history of adverse response to anesthesia Social History Smoking Status: Never smoker Cigarettes Per Day: Says he occasionally will smoke a cigar.; Second Hand Exposure: Yes; Hx Alcohol Use: No Hx Substance Use: Yes Last Used Substance Other:: last used meth couple weeks ago Preferred Language: Maldivian Communication Ability: Effective Teacher Associate Required: No Beliefs That Will Affect Care: None marital status: Single Current Living Situation: Alone Current Living Situation Comment: lives alone Other Information That Helps Us Care for You: No Feels Safe at Home: Yes Safety Concerns: Feels Safe At This Time Assistive Devices: None Review of Systems A total of 10 systems reviewed and were otherwise negative Constitutional: no fever Genitourinary (Male): + urinary frequency and + urinary hesitancy Musculoskeletal: no back pain Physical Exam Vital Signs Vital Signs - 24 hr 10/07/22 03:50 10/07/22 03:49 10/07/22 04:49 Temperature 36.6 C Temperature Source Oral Pulse Rate 74 73 71 Respiratory Rate 19 26 H 22 Blood Pressure 105/62 105/62 93/56 L Blood Pressure Mean 76 76 68 Pulse Oximetry 93 93 94 Oxygen Delivery Method Room Air Room Air Room Air Sepsis Recent Fever Within 48 Hours No Sepsis New/Unexplained Change in Mental Status No Sepsis Action Taken by Nursing No Action Required 10/07/22 05:28 10/07/22 05:35 10/07/22 06:00 Temperature Temperature Source Pulse Rate 73 76 72 Respiratory Rate 24 25 H 25 H Blood Pressure 85/49 L 92/56 L 100/58 L Blood Pressure Mean 61 68 72 Pulse Oximetry 93 90 96 Oxygen Delivery Method Room Air Room Air Room Air Sepsis Recent Fever Within 48 Hours Sepsis New/Unexplained Change in Mental Status Sepsis Action Taken by Nursing GENERAL: Patient is awake alert in no acute distress patient is resting comfortably and showing no signs of anxiety EYES: The conjunctivae are clear. The pupils are round and reactive. EARS, NOSE, MOUTH AND THROAT: The nose is without any evidence of any deformity. Mucous membranes are moist. Tongue is midline. NECK: The neck is nontender and supple. RESPIRATORY: Normal respiratory effort is noted there is no evidence of wheezing rhonchi or rales CARDIOVASCULAR: Regular rate and rhythm noted there no murmurs rubs or gallops normal S1 normal S2. GASTROINTESTINAL: The abdomen is soft. Abdomen is nontender. PELVIS: The Pelvis is stable. No tenderness to palpation is noted. BACK: No midline tenderness or or step-off noted range of motion in flexion extension as well as rotation no signs of muscle spasm noted MUSCULOSKELETAL/EXTREMITIES: There is no evidence of gross deformity full range of motion is noted in the hips and shoulders. Bilateral lower extremity pitting edema SKIN: There is no obvious evidence of any rash. There are no petechiae, pallor or cyanosis noted. NEUROLOGIC: Patient is awake alert and oriented x3 strength is symmetric Course Reevaluation(s) Reevaluation #1: Patient is resting in no distress was started on IV fluids initially given 400 ml saline;was given empiric IV Rocephin for symptoms suggestive of a urinary tract infection. Patient's blood sugar is less than 300. Time: 04:38 Reevaluation #2: Patient's blood sugar is 25, he was given a rapid dose of 2 g of IV Rocephin and had an episode of vomiting. On my reassessment he has no abdominal pain he states he feels much improved. He has no fever. He is concerned about his blood sugar. Patient's abdominal exam is nontender there is no rebound rigidity guarding; the right foot does not appear to have a significant right great toe ulcer. Time: 05:11 Consultations Consultation #1: Dr De La Torre for admit Time: 05:42 Administered Medications Sodium Chloride (Nss 1000ml) 1,000 mls @ 125 mls/hr IV .Q8H STA Stop: 10/07/22 11:44 Last Admin: 10/07/22 04:40 Dose: 125 mls/hr Documented By: ASIA Sodium Chloride (Nss 1000ml) 1,000 mls @ 999 mls/hr IV .Q1H1M ONE Stop: 10/07/22 06:33 Last Admin: 10/07/22 05:52 Dose: 999 mls/hr Documented By: ASIA Discontinued Medications Ceftriaxone Sodium (Rocephin) 2,000 mg in 70 mls @ 140 mls/hr IV NOW STA Stop: 10/07/22 04:45 Last Infusion: 10/07/22 05:23 Dose: 0 mls/hr Documented By: Admin: 10/07/22 04:53 Dose: 140 mls/hr Documented By: ASIA Ondansetron HCl (Ondansetron Inj 2 Mg/Ml 2 Ml Vial) 4 mg IV NOW STA Stop: 10/07/22 05:01 Last Admin: 10/07/22 05:03 Dose: 4 mg Documented By: ASIA Medical Decision Making Medical Records Attestation: I reviewed the patient's medical records. Home Medications Current Medication List: was personally reviewed by me Laboratory Data Attestation: I reviewed the patient's lab results. Result diagrams: 10/07/22 03:59 10/07/22 03:59 Lab Results 10/07/22 10/07/22 10/07/22 Range/Units 03:59 03:59 03:59 WBC 15.66 H (4.8-10.8) K/ul RBC 6.33 H (4.63-6.08) M/uL Hgb 18.1 H (14.0-18.0) g/dl Hct 52.5 H (40.1-51.0) % MCV 82.9 (80.0-100.0) fL MCH 28.6 (25.0-34.0) pg MCHC 34.5 (32.0-36.0) g/dL RDW Std Deviation 41.2 (36.4-46.3) fL RDW Coeff of Marc 14.0 (11.5-14.5) % Plt Count 303 (130-400) K/uL MPV 9.5 (9.4-12.4) fL Immature Gran % (Auto) 1.0 % Neut % (Auto) 66.2 % Lymph % (Auto) 22.1 % [place] % (Auto) 7.6 % Eos % (Auto) 2.1 % Baso % (Auto) 1.0 % Neut # (Auto) 10.37 H (1.4-6.5) K/uL Lymph # (Auto) 3.46 H (1.2-3.4) K/uL [place] # (Auto) 1.19 H (0.24-0.82) K/uL Eos # (Auto) 0.33 (0-0.50) K/uL Baso # (Auto) 0.15 (0-0.2) K/uL Immature Gran # (Auto) 0.16 H (0.00-0.02) K/uL Sodium 132 L (136-145) mmol/L Potassium 3.9 (3.5-5.1) mmol/L Chloride 94 L (98-107) mmol/L Carbon Dioxide 28 (21-32) mmol/L Anion Gap 10 (3-11) BUN 27 H (6-23) mg/dl Creatinine 0.87 (0.6-1.4) mg/dl Est Cr Clr Drug Dosing 118.9 ml/min Est GFR ( Amer) 108.7 ml/min Est GFR (Non-Af Amer) 93.8 ml/min BUN/Creatinine Ratio 31.0 H (10-20) Glucose 252 H (70-99(Fasting)) mg/dl Calcium 9.5 (8.5-10.1) mg/dl Total Bilirubin 0.3 (0.2-1.0) mg/dl AST 21 (13-39) U/L ALT 23 (7-52) U/L Alkaline Phosphatase 105 H (34-104) U/L Total Protein 7.1 (6.0-8.3) gm/dl Albumin 3.6 (3.4-5.0) gm/dl Globulin 3.5 (2.5-4.0) gm/dl Albumin/Globulin Ratio 1.0 (0.9-2) Urine Color Yellow Urine Appearance Clear (Clear) Urine pH 6.0 (4.5-7.5) Ur Specific [place] 1.033 H (1.000-1.030) Urine Protein Negative (Negative) Urine Glucose (UA) 3+ H (Negative) Urine Ketones Negative (Negative) Urine Blood Negative (Negative) Urine Nitrite Negative (Negative) Urine Bilirubin Negative (Negative) Urine Urobilinogen Negative (Negative) Ur Leukocyte Esterase Negative (Negative) Imaging Data Attestation: I personally reviewed and interpreted this imaging study as follows: My Impression: Chest x-ray interpreted by me negative for infiltrate normal mediastinum no obvious effusions ECG Data Attestation: I personally reviewed and interpreted this ECG as follows: Additional Comments: EKG interpreted by me normal sinus rhythm at rate of 77 right axis deviation no obvious ST segment elevation or depression intervals normal QTC MDM Narrative Medical decision making differential diagnosis includes hyperglycemia, metabolic derangement, dehydration, electrolyte imbalance, urinary tract infection, early sepsis. Do not suspect the patient being diabetic ketoacidosis. Plan is to check labs give IV fluids check urine monitor blood sugar. Patient was evaluated for high blood sugar patient's lab work shows a blood sugar in the 250 range. Patient has no evidence of diabetic ketoacidosis. Patient does have an elevated white blood cell count he seems to be hemoconcentrated. Patient was given IV fluids patient's blood sugar is less than 300 I do not suspect diabetic ketoacidosis. Patient's symptoms are suggestive of a urinary tract infection was started on empiric Rocephin. Patient's chest x-ray is negative for an infiltrate. He was ordered 1.5 L of normal saline and was given this judiciously over time as the patient had initially soft blood pressures. Patient has a history of congestive heart failure and is on Lasix and a significant history of cardiomyopathy therefore the patient did not receive 30 mL/kg IV of saline initially he did have a total order about 1.5 L and he was given 2 g of Rocephin initially for suspected urinary tract infection. Patient has an elevated white blood cell count and is hemoconcentrated the concern is for early sepsis currently I do not have a source for his urine is negative his chest x-ray is negative for infiltrate do not see any significant skin lesions. This case was discussed with Dr. De La Torre for admission Impression & Plan Acute hyperglycemia, Leukocytosis Discharge Plan Visit Data Chief Complaint: Hyperglycemia Stated Complaint: Hyperglycemia, SOB, Weakness ED Provider: Ajay Shaikh Discharge Problem: Acute hyperglycemia, Leukocytosis Patient Disposition: Being Evaluated by Hospitalist Prescriptions Prescriptions: New cephalexin 500 mg capsule 500 mg PO QID 7 Days Qty: 28 0RF No Action furosemide 40 mg Tablet 80 mg PO QAM Rx Instructions: TAKES 80 MG QAM, THEN 40 MG QPM. spironolactone 25 mg Tablet 25 mg PO DAILY lisinopril 40 mg Tablet 40 mg PO QAM metoprolol succinate 50 mg tablet extended release 24 hr 50 mg PO BID tamsulosin 0.4 mg capsule 0.4 mg PO DAILY fluticasone propionate [Flovent HFA] 220 mcg/actuation HFA aerosol inhaler 2 puff INHALATION BID furosemide [Lasix] 40 mg Tablet 40 mg PO .QAFTERNOON sertraline 100 mg tablet 100 mg PO DAILY aspirin 81 mg Tablet,Delayed Release (Dr/Ec) 81 mg PO DAILY nitroglycerin [Nitrostat] 0.4 mg Tablet, Sublingual 0.4 mg sublingual DIRECTED PRN (Reason: Chest Pain) albuterol sulfate 90 mcg/actuation HFA aerosol inhaler 2 puff INHALATION Q4 PRN (Reason: Shortness Of Breath Or Wheezing) insulin aspart U-100 100 unit/mL (3 mL) insulin pen See Rx Instructions .ROUTE .COMPLEX Rx Instructions: 40 UNITS WITH BREAKFAST, 50 UNITS WITH DINNER DIRECTED..plus sliding scale: max 120 units daily metformin 750 mg Tablet Extended Release 24 Hr 1,500 mg PO DAILY bupropion HCl 300 mg tablet extended release 24 hr 300 mg PO DAILY Jardiance 25 mg tablet 25 mg PO DAILY Chromium-Cinnamon 1 tab PO DAILY Levemir FlexTouch U-100 Insuln 100 unit/mL (3 mL) insulin pen 75 unit SUBCUT AMPM ascorbic acid (vitamin C) [Vitamin C] 500 mg Tablet 1,000 mg PO DAILY Multiple Vitamin-Minerals Tablet 1 tab PO DAILY bacillus coagulans-inulin 1 billion-250 cell-mg Capsule 1 cap PO DAILY sildenafil 100 mg tablet 50 - 100 mg PO ONCE PRN (Reason: 1 hour before sex) Referrals Referrals: Willam Fofana DO [Primary Care Provider] -
[2022-10-07 04:11] LABS: Basophils # (auto) 0.15 K/uL (0-0.2); Eosinophils # (auto) 0.33 K/uL (0-0.50); Eosinophils % (auto) 2.1 %; Hematocrit (blood only) 52.5 % (40.1-51.0); Hemoglobin 18.1 g/dl (14.0-18.0); Immature Granulocytes # (auto) 0.16 K/uL (0.00-0.02); Lymphocytes # (auto) 3.46 K/uL (1.2-3.4); Lymphocytes % (auto) 22.1 %; Mean Corpuscular Hemoglobin 28.6 pg (25.0-34.0); Mean Corpuscular Hgb Conc 34.5 g/dL (32.0-36.0); Mean Corpuscular Volume 82.9 fL (80.0-100.0); Mean Platelet Volume 9.5 fL (9.4-12.4); Monocytes # (auto) 1.19 K/uL (0.24-0.82); Monocytes % (auto) 7.6 %; Neutrophils # (auto) 10.37 K/uL (1.4-6.5); Neutrophils % (auto) 66.2 %; Platelet Count 303 K/uL (130-400); RDW Standard Deviation 41.2 fL (36.4-46.3); Red Blood Count 6.33 M/uL (4.63-6.08); White Blood Count 15.66 K/ul (4.8-10.8)
[2022-10-07 04:12] LABS: Appearance Urine Clear (Clear); Bilirubin Urine Negative (Negative); Blood Urine Negative (Negative); Color Urine Yellow; Glucose Urine UA 3+ (Negative); Ketones Urine Negative (Negative); Leukocyte Esterase Urine Negative (Negative); Nitrite Urine Negative (Negative); Protein Urine Negative (Negative); Specific Gravity Urine 1.033 (1.000-1.030); Urobilinogen Urine Negative (Negative)
[2022-10-07] MEDS ORDERED: cefTRIAXone SODIUM 2,000 MG/70 ML BAG IV STA (04:16)
[2022-10-07 04:34] LABS: Albumin Level 3.6 gm/dl (3.4-5.0); Bilirubin,Total 0.3 mg/dl (0.2-1.0); Calcium 9.5 mg/dl (8.5-10.1); Creatinine Clr Calc Pharmacy 118.9 ml/min; Est GFR (African American) 108.7 ml/min; Est GFR (Non-African American) 93.8 ml/min; Globulin 3.5 gm/dl (2.5-4.0); Potassium 3.9 mmol/L (3.5-5.1); Total Protein 7.1 gm/dl (6.0-8.3)
[2022-10-07] MEDS ORDERED: ONDANSETRON INJ 2 MG/ML 2 ML VIAL IV STA (05:00)
[2022-10-07] MEDS ORDERED: SODIUM CHLORIDE 0.9% 1000ML 1,000 ML IV ONE (05:33)
[2022-10-07 06:46] LABS: Influenza A virus by PCR Negative (Neg); Influenza B virus by PCR Negative (Neg); RSV by PCR Negative (Neg); SARS CoV2 RNA(COVID-19) Ceph NEGATIVE (Negative)
--- NOTE | 2022-10-07 07:49 | XRay Report ---
XR chest 1V portable CLINICAL HISTORY: cough TECHNIQUE: Single frontal radiograph of the chest was obtained. Comparison: Comparison is made to chest radiograph 09/21/2022 FINDINGS: No lines and tubes are seen. The cardiomediastinal silhouette is normal. The lungs are clear. No evid ence of pleural effusion or pneumothorax. IMPRESSION: No acute abnormalities and in particular no evidence of pneumonia. ACT 112: Negative or not required by law. Electronically signed by: Daron Terrell M.D. 10/07/2022 7:47 AM
[2022-10-07] MEDS ORDERED: ACETAMINOPHEN 325 MG TAB PO PRN (08:20)
[2022-10-07] MEDS ORDERED: PHARMACY GLYCEMIC MGMT CONSULT PRN (08:20)
[2022-10-07] MEDS ORDERED: DEXTROSE 50% 50 ML SYRINGE IV PRN ×2 (08:20)
[2022-10-07] MEDS ORDERED: CARBOHYDRATES FOR HYPOGLYCEMIA PO PRN ×2 (08:20)
[2022-10-07] MEDS ORDERED: GLUCAGON FOR INJ 1 MG VIAL SQ PRN ×2 (08:20)
[2022-10-07] MEDS ORDERED: GLUCOSE 40% GEL 15 GM TUBE PO PRN ×2 (08:20)
[2022-10-07] MEDS ORDERED: NITROGLYCERIN SL 0.4 MG/TAB TAB SL PRN (08:20)
[2022-10-07] MEDS ORDERED: GLUCOSE 10 TAB/TUBE PO PRN ×2 (08:20)
[2022-10-07] MEDS ORDERED: ONDANSETRON INJ 2 MG/ML 2 ML VIAL IV PRN (08:20)
[2022-10-07] MEDS ORDERED: INSULIN HUMAN NPH SC ONE (09:00)
--- NOTE | 2022-10-07 09:46 | Electrocardiogram Report ---
Test Reason : Blood Pressure : / mmHG Vent. Rate : 077 BPM Atrial Rate : 077 BPM P-R Int : 164 ms QRS Dur : 078 ms QT Int : 392 ms P-R-T Axes : 069 091 089 degrees QTc Int : 443 ms Poor data quality, interpretation may be adversely affected Sinus rhythm with Premature atrial complexes Rightward axis Low voltage QRS Abnormal ECG When compared with ECG of 21-SEP-2022 16:56, AL interval has decreased Confirmed by Jerome Oneil ([id number]) on 10/07/2022 9:46:07 AM Referred By: REFERRED SELF Confirmed By:Hayden Oneil
[2022-10-07] MEDS: SODIUM CHLORIDE 0.9% 1000ML 1,000 ML IV SCH ×2 (10:28→18:39)
[2022-10-07] MEDS: ENOXAPARIN INJ 40 MG/0.4 ML SYR SQ SCH ×2 (10:30→20:30)
[2022-10-07] MEDS: ASPIRIN 81 MG ECTAB PO SCH (10:32)
[2022-10-07] MEDS: SERTRALINE HCL 100 MG TABLET PO SCH (10:32)
[2022-10-07] MEDS: FLUTICASONE FUROATE 200MCG 14 PUFFS/INHALER INH SCH (10:32)
[2022-10-07] MEDS: buPROPion XL 300 MG TABCR PO SCH (10:33)
[2022-10-07] MEDS: INSULIN ASPART PER UNIT SC SCH ×4 (10:39→23:14)
--- NOTE | 2022-10-07 11:04 | History and Physical Report ---
DATE OF ADMISSION: 10/07/2022. CHIEF COMPLAINT: Hyperglycemia. 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 The patient says sugars were running in 400s at home going up and down. In the ER, his blood sugars were in 250s, ER planned to discharge but his systolic blood pressure dropped into 80s and he also had white count of 15. There was some bleeding from the callus of his right big toe, so we were called for admission, thought to be possible early sepsis. The patient is currently resting comfortably, hemodynamically stable. Denies any headache. No blurred visions, no earache, no runny nose, no sore throat, no cough, no fevers. Appetite is okay. No difficulty swallowing. No chest pain, no shortness of breath. He said in the ER, he had one episode of vomiting, no abdominal pain. Says he is micturating a lot. Normal bowel movements.Says his right big toe started some bleeding today. ALLERGIES: AMOXICILLIN, AUGMENTIN, BACTRIM, LANTUS, PERMETHRIN, SHRIMP FLAVOR. PAST MEDICAL HISTORY: As mentioned above. PAST SURGICAL HISTORY: Colonoscopy, EGD, EGD with endoscopic ultrasound. MEDICATIONS: The patient is on albuterol 2 puffs inhalation q. 4 hours p.r.n., vitamin C 1000 mg p.o. daily, aspirin 81 mg p.o. daily, bupropion 300 mg p.o. daily, Flonase 2 puffs inhalation b.i.d., Lasix 80 mg in a.m. and 40 mg in the afternoon, Levemir 75 units b.i.d., NovoLog 45 units with breakfast and 50 units with dinner as directed, Jardiance 25 mg p.o. daily, lisinopril 40 mg p.o. daily, metformin 1500 mg p.o. daily, metoprolol succinate 50 mg p.o. b.i.d., multivitamins with minerals 1 tablet p.o. daily, nitroglycerin 0.4 mg sublingual p.r.n., sertraline 100 mg p.o. daily, spironolactone 25 mg p.o. daily, Flomax 0.4 mg p.o. daily, sildenafil 100 mg p.r.n. FAMILY HISTORY: Significant for father has diabetes, hypertension. Mother has diabetes, hypertension. Paternal grandfather has CO. SOCIAL HISTORY: No smoking. Alcohol, rarely. History of IV cocaine and methamphetamine.Says stopped iv drugs about 8yrs ago. Once in a while he smokes but did not do recently. PHYSICAL EXAMINATION: GENERAL: The patient is alert and oriented, not in acute distress. VITAL SIGNS: Temperature 36.6, pulse 72, respiratory rate 25, blood pressure 100/58, oxygen 96% on room air. HEENT: Pupils equal, round and reactive to light. Oral mucosa moist. NECK: No JVD, no neck masses. CARDIOVASCULAR: S1 and S2 heard. Regular rate and rhythm. No murmur, no gallop. RESPIRATORY SYSTEM: Normal AP diameter. No accessory muscle use. No wheezing, no crackles. ABDOMEN: Soft, bowel sounds present, nontender, no distention. CENTRAL NERVOUS SYSTEM: Cranial nerves II-XII grossly intact, nonfocal. EXTREMITIES: Right big toe callus on the palmar aspect is bleeding. No surrounding erythema seen. LABORATORY DATA: WBC 15, hemoglobin 18.1, hematocrit 52.5, platelets 303. Sodium 132, potassium 3.9, chloride 94, CO2 of 28, BUN 27, creatinine 0.8, serum glucose 252. Lactate 1.1, calcium 9.5, total bilirubin 0.3, AST 21, ALT 23, alkaline phosphatase 105. Urinalysis, +3 glucose. SARS-CoV-2 PCR negative. Influenza A and B PCR negative. RSV PCR negative. IMAGING DATA: Chest x-ray, no acute abnormality seen. EKG: Sinus rhythm with PACs at rate of 77, no acute ST changes seen. ASSESSMENT AND PLAN: This is a 62-year-old male who presents with hyperglycemia and was hypotesnive in ER. 1. Hyperglycemia. His sugar was running at 400s at home, currently they are in 200s. Patient is on Levemir 75 units b.i.d. and NovoLog BID sliding scale. We will continue with NovoLog sliding scale. The patient is ALLERGIC TO LANTUS. Will consult pharmacy to help with insulin regimen. Closely monitor in the hospital. 2. Hypotension, possible early sepsis with elevated white count and questionable infection of the right big toe. We will follow the cultures. Empirically started on Rocephin. Currently blood pressure is improving. Continue with IV fluids. Closely monitor. 3. Elevated hemoglobin mostly from dehydration. Getting fluids. Follow the repeat labs. 4. Hyponatremia. Getting fluids. Follow the repeat labs. 5. History of hypertension, holding his lisinopril and metoprolol, as his blood pressure is low. Restart when the blood pressure comes up. 6.history of nonischemic cardiomyopathy, EF is greater than 70% on echocardiogram done in 10/2018. Echo done in 07/2022 shows EF of 55-60%, grade II diastolic dysfunction. The patient is on spironolactone and Lasix, which we will be holding as his blood pressure is low, we will restart when the blood pressure improves and monitor for any volume overload. 7. Depression. Continue Zoloft. 8. Benign prostatic hypertrophy. Continue Flomax. 9. History of coronary artery disease, continue aspirin. Holding beta kemal because of the hypertension. 10. Deep venous thrombosis prophylaxis: Lovenox. DISPOSITION: Closely monitor in the tele floor. Level 1 full code. Expect to discharge home and follow with family doctor. Job ID: [id number] [facility] SYSTEMYinka
--- NOTE | 2022-10-07 13:49 | Pharmacy Report ---
Pharmacy Glycemic Short Note 2 - Date of Service October 07, 2022 - Glycemic Short BSG Results (Last 24 hours): 10/07/22 10/07/22 10/07/22 03:59 08:51 12:02 Glucose 252 H POC Glucose 286 H 299 H OUTPATIENT ANTIDIABETIC REGIMEN: * Jardiance 25 mg PO daily * Levemir 75 units SQ BID * Novolog 40/50 units with breakfast and dinner respectively * metformin 1500 mg PO QD ASSESSMENT: * Mr Botello is a 62 y/o M with a PMH of T2DM who presents with hyperglycemia. Per review of previous record, patient receives NPH 30 units in the morning and 10-15 units with dinner. * Will reorder the above NPH. Overnight checks in case evening NPH dose not sufficient. * Order Novolog from previous admission. This includes tight CR. * Patient with ADR to Lantus. PLAN FOR INPATIENT GLYCEMIC CONTROL: * Hold outpatient oral diabetes medications * Basal insulin * NPH 30 units SQ in the morning and 10 units SQ in the evening * Bolus insulin * NovoLog per scale ACHS or Q6hrs while NPO * Goal Range: Low 110 mg/dL - High 140 mg/dL * Correction Factor: 20 mg/dL/unit * Nutritional / Prandial insulin per carb ratio of 1 unit per 4 grams CHO consumed
[2022-10-07] MEDS ORDERED: INSULIN HUMAN NPH SC SCH (16:30)
[2022-10-07] MEDS: TAMSULOSIN HCL 0.4 MG CAP PO SCH (20:31)
[2022-10-08] MEDS: SODIUM CHLORIDE 0.9% 1000ML 1,000 ML IV SCH ×3 (02:31→18:26)
[2022-10-08] MEDS: INSULIN ASPART PER UNIT SC SCH ×6 (03:25→20:34)
[2022-10-08] MEDS: cefTRIAXone SODIUM 2,000 MG in DEXTROSE 5% 50 ML IV SCH (04:09)
[2022-10-08 05:55] LABS: A calco-baum cmplx NotReported Not Detected (NotDetected); Bact fragilis Not Reported Not Detected (NotDetected); C auris Not Reported Not Detected (NotDetected); Calbicans Not Reported Not Detected (NotDetected); Candida glabrata Not Reported Not Detected (NotDetected); Candida krusei Not Reported Not Detected (NotDetected); Cneoformans/gatti Not Reported Not Detected (NotDetected); Cparapsilosis Not Reported Not Detected (NotDetected); Ctropicalis Not Reported Not Detected (NotDetected); E cloacae compx Not Reported Not Detected (NotDetected); Efaecalis Not Reported Not Detected (NotDetected); Efaecium Not Reported Not Detected (NotDetected); H influenzae Not Reported Not Detected (NotDetected); K aerogenes Not Reported Not Detected (NotDetected); Koxytoca Not Reported Not Detected (NotDetected); Kpneumoniae grp Not Reported Not Detected (NotDetected); Lmonocyt Not Reported Not Detected (NotDetected); N meningitidis Not Reported Not Detected (NotDetected); P aeruginosa Not Reported Not Detected (NotDetected); Proteus spp Not Reported Not Detected (NotDetected); Salmonella spp Not Reported Not Detected (NotDetected); Smarcescens Not Reported Not Detected (NotDetected); Staph lugdunensis Not Reported Not Detected (NotDetected); Staphaureus Not Reported Not Detected (NotDetected); Stenmaltophilia Not Reported Not Detected (NotDetected); Strep agal(GrpB) Not Reported Not Detected (NotDetected); Strep pneum Not Reported Not Detected (NotDetected); Strep pyog (GrpA) Not Reported Not Detected (NotDetected); Strep spp Not Reported Not Detected (NotDetected)
[2022-10-08 06:27] LABS: Staphylococcus epidermidis DETECTED (NotDetected); Staphylococcus spp. DETECTED (NotDetected)
[2022-10-08] MEDS ORDERED: VANCOMYCIN HCL 1,000 MG in SODIUM CHLORIDE 0.9% 250 ML IV STA (07:31)
[2022-10-08] MEDS ORDERED: VANCOMYCIN CONSULT ACTIVE PRN (07:31)
[2022-10-08] MEDS ORDERED: VANCOMYCIN HCL 2,500 MG in SODIUM CHLORIDE 0.9% 500 ML IV ONE (08:00)
--- NOTE | 2022-10-08 09:33 | Pharmacy Report ---
Pharmacy PK ABX Note - Date of Service October 08, 2022 - Assessment and Plan Assessment Facundo is a 62 year old M admitted with hyperglycemia, hypotension, possible right big toe infection. He has been started on IV vancomycin for possible gram positive bacteremia. Repeat BC have been ordered. Patient is also on ceftriaxone for coverage of toe infection. Of note, the patient was admitted in July of this year with Acinetobacter bacteremia suspected to be secondary to leg cellulitis. Pertinent microbiologic data includes: 10/07 BC: GPC in clusters growing in aerobic and anaerobic bottle 10/07 BC: no growth after 24 hours BCID2: S. epidermidis detected, mecA/C detected Plan Vancomycin * Loading dose: 2500 mg IV x 1 * Maintenance dose: 1500 mg IV every 12 hours * Regimen is predicted to achieve target AUC/GAURAV of 400-600 mg/L.hr * Drug level ordered for 10/10 with AM labs Pharmacy will continue to follow and will adjust dose/frequency as necessary. Thank you.
[2022-10-08] MEDS: ASPIRIN 81 MG ECTAB PO SCH (10:24)
[2022-10-08] MEDS: SERTRALINE HCL 100 MG TABLET PO SCH (10:24)
[2022-10-08] MEDS: FLUTICASONE FUROATE 200MCG 14 PUFFS/INHALER INH SCH (10:24)
[2022-10-08] MEDS: buPROPion XL 300 MG TABCR PO SCH (10:24)
[2022-10-08] MEDS: ENOXAPARIN INJ 40 MG/0.4 ML SYR SQ SCH ×2 (10:26→20:40)
[2022-10-08] MEDS: INSULIN HUMAN NPH SC SCH ×2 (10:26→18:26)
[2022-10-08 10:41] LABS: mecAC Resistant Gene DETECTED (NotDetected)
[2022-10-08 10:42] LABS: Staph spp. Not Reported DETECTED (NotDetected)
[2022-10-08 10:43] LABS: Staphepi Not Reported DETECTED (NotDetected)
[2022-10-08 10:44] LABS: Enterobacterales Not Reported Not Detected (NotDetected); Escherichia coli Not Reported Not Detected (NotDetected)
--- NOTE | 2022-10-08 13:22 | Pharmacy Report ---
Pharmacy Glycemic Short Note 2 - Date of Service October 08, 2022 - Glycemic Short BSG Results (Last 24 hours): 10/07/22 10/07/22 10/08/22 18:34 23:06 03:21 POC Glucose 112 H 123 H 186 H 10/08/22 10/08/22 08:53 12:19 POC Glucose 156 H 197 H OUTPATIENT ANTIDIABETIC REGIMEN: * Jardiance 25 mg PO daily * Levemir 75 units SQ BID * Novolog 40/50 units with breakfast and dinner respectively * metformin 1500 mg PO QD ASSESSMENT: 10/08/22: * Facundo received 69 units of insulin yesterday (40 units NPH + 29 units Novolog) * Fasting BSG slightly elevated, 156 mg/dL. Will increase evening dose of NPH. * Post prandial BSGs appear to be better controlled so far today. No changes to Novolog. Background: * Mr Botello is a 62 y/o M with a PMH of T2DM who presents with hyperglycemia. Per review of previous record, patient receives NPH 30 units in the morning and 10-15 units with dinner. * Will reorder the above NPH. Overnight checks in case evening NPH dose not sufficient. * Order Novolog from previous admission. This includes tight CR. * Patient with ADR to Lantus. PLAN FOR INPATIENT GLYCEMIC CONTROL: * Hold outpatient oral diabetes medications * Basal insulin * NPH 30 units SQ in the morning and 12 units SQ in the evening * Bolus insulin * NovoLog per scale ACHS or Q6hrs while NPO * Goal Range: Low 110 mg/dL - High 140 mg/dL * Correction Factor: 20 mg/dL/unit * Nutritional / Prandial insulin per carb ratio of 1 unit per 4 grams CHO consumed
--- NOTE | 2022-10-08 16:44 | Hospitalist Progress Note ---
Date of Service October 08, 2022 Assessment & Plan (1) Bacteremia: (2) Hyperglycemia: Plan: This is a 62-year-old male who presents with hyperglycemia and was hypotesnive in ER. Today blood cultx found positive for Gram posit. cocci. 1. Hyperglycemia. Blood sugar was running at 400s at home. Patient is on Levemir 75 units b.i.d. and NovoLog BID sliding scale. Glycemic pharmacy consulted The patient is ALLERGIC TO LANTUS. Closely monitor in the hospital. Blood sugar levels improved now. 2. Hypotension, possible early sepsis with elevated white count and questionable infection of the right big toe. Blood cultx posit. for Gram posit. cocci Empirically started on Rocephin. Added vanco. Repeat blood cultx Currently blood pressure is improved. Continue with IV fluids. Closely monitor. Source is possibly R toe infection. Will obtain ESR, CRP. Will obtain R toe XR to r/o osteomyelitis 3. Elevated hemoglobin mostly from dehydration. Getting fluids. Follow the repeat labs. 4. Hyponatremia. Received IV fluids. Will stop now. Follow the repeat labs. 5. History of hypertension, holding his lisinopril and metoprolol, as his blood pressure low on admission. Now BP back to normal- Restart BP meds in the morning if continues to have stable BP 6. history of nonischemic cardiomyopathy, EF is greater than 70% on echocardiogram done in 10/2018. Echo done in 07/2022 shows EF of 55-60%, grade II diastolic dysfunction. The patient is on spironolactone and Lasix, which are on hold as his blood pressure was low, we will restart when the blood pressure improves and monitor for any volume overload. 7. Depression. Continue Zoloft. 8. Benign prostatic hypertrophy. Continue Flomax. 9. History of coronary artery disease, continue aspirin. Holding beta kemal because of the hypertension. DVT prophylaxis: Lovenox. DISPOSITION:tele floor. Code: Full Admission and Anticipated Discharge Date Admission Date: October 07, 2022 Subjective Patient seen in follow-up of hyperglycemia, bleeding from right toe wound. Now found bacteremic. Currently patient is lying in bed, in no acute distress. Reports feeling better today. Denies fevers chills chest pain shortness of breath palpitations. Denies abdominal pain. Bleeding from right still stopped now. Patient was on ceftriaxone since admission, now blood cultures positive for gram-positive cocci, will add vancomycin and repeat blood cultures. Review of Systems Review of Systems: All systems reviewed & are unremarkable except as noted in Subjective Physical Exam Physical Exam: GENERAL:Obese M laying in bed in NAD HEENT: Pupils equal, round and reactive to light. EOMI. Oral mucosa moist. NECK: No JVD, no neck masses. CARDIOVASCULAR: S1 and S2 heard. Regular rate and rhythm. No murmur, no gallop. RESPIRATORY: Normal AP diameter. No accessory muscle use. No wheezing, no crackles. ABDOMEN: Soft, bowel sounds present, nontender, no distention.+obese NEURO:Awake and alert, no facial asymmetry, speech fluent, moves extremities EXTREMITIES: Right big toe callus on the palmar aspect - recent bleeding. No surrounding erythema seen. Results & Data Results & Data ([facility]) Vital Signs (Past 12 Hours) Vital Signs Pulse Resp BP Pulse Ox O2 Del Method 10/08/22 10:15 78 18 132/71 94 Room Air Laboratory Results 10/08/22 10/08/22 10/08/22 Range/Units 12:19 08:53 03:21 POC Glucose 197 H 156 H 186 H (70-99) mg/dl Enterobacterales (PCR) (NotDetected) E. coli (PCR) (NotDetected) Staphylococcus sp PCR (NotDetected) mecA/C-Methicil Resis Gene (NotDetected) mcr-1 Colistin Res Gene PCR Staph epidermidis (PCR) (NotDetected) blaIMP Car res Gene PCR KPC-Carbap Res Gene PCR blaNDM Car Res Gene PCR OXA-48 Carbapenem Resis Gene (PCR) blaVIM Car Res Gene PCR CTX-M Gene Resistance (PCR) Bld Cult ID Panel PCR (NotDetected) 10/07/22 10/07/22 10/07/22 Range/Units 23:06 18:34 04:49 POC Glucose 123 H 112 H (70-99) mg/dl Enterobacterales (PCR) (NotDetected) E. coli (PCR) (NotDetected) Staphylococcus sp PCR DETECTED A (NotDetected) mecA/C-Methicil Resis Gene DETECTED A (NotDetected) mcr-1 Colistin Res Gene PCR DATA LIBRARIAN Staph epidermidis (PCR) DETECTED A (NotDetected) blaIMP Car res Gene PCR DATA LIBRARIAN KPC-Carbap Res Gene PCR DATA LIBRARIAN blaNDM Car Res Gene PCR DATA LIBRARIAN OXA-48 Carbapenem Resis Gene (PCR) DATA LIBRARIAN blaVIM Car Res Gene PCR DATA LIBRARIAN CTX-M Gene Resistance (PCR) DATA LIBRARIAN Bld Cult ID Panel PCR See PCR Comment (NotDetected) Medications Administered Current Inpatient Medications Acetaminophen (Acetaminophen 325 Mg Tab) 650 mg PO Q4H PRN PRN Reason: Pain or Fever Stop: 11/06/22 08:19 Aspirin (Aspirin 81 Mg Ectab) 81 mg PO DAILY [facility] Stop: 11/06/22 08:59 Last Admin: 10/08/22 10:24 Dose: 81 mg Bupropion HCl (Bupropion Xl 300 Mg Tabcr) 300 mg PO QAM [facility] Stop: 11/06/22 08:59 Last Admin: 10/08/22 10:24 Dose: 300 mg Dextrose (Dextrose 50% 50 Ml Syringe) 25 - 50 ml IV UD PRN; Protocol PRN Reason: Hypoglycemia Protocol Stop: 11/06/22 08:19 Enoxaparin Sodium (Enoxaparin Inj 40 Mg/0.4 Ml Syr) 40 mg SQ Q12H [facility] Stop: 11/06/22 08:29 Last Admin: 10/08/22 10:26 Dose: 40 mg Fluticasone Furoate (Fluticasone Furoate 200mcg 14 Puffs/Inhaler) 1 puffs INH DAILY [facility] Stop: 11/06/22 08:59 Last Admin: 10/08/22 10:24 Dose: 1 puffs Glucagon (Glucagon For Inj 1 Mg Vial) 1 mg SQ UD PRN; Protocol PRN Reason: Hypoglycemia Protocol Stop: 11/06/22 08:19 Glucose (Glucose 40% Gel 15 Gm Tube) 15 - 30 gm PO UD PRN; Protocol PRN Reason: Hypoglycemia Protocol Stop: 11/06/22 08:19 Glucose (Glucose 10 Tab/Tube) 4 - 8 tab PO UD PRN; Protocol PRN Reason: Hypoglycemia Treatment Stop: 11/06/22 08:19 Sodium Chloride (Nss 1000ml) 1,000 mls @ 125 mls/hr IV .Q8H [facility] Stop: 11/06/22 08:19 Last Admin: 10/08/22 10:20 Dose: 125 mls/hr Ceftriaxone Sodium 2,000 mg/ (Dextrose) 70 mls @ 100 mls/hr IV Q24H [facility]; Protocol Stop: 10/15/22 04:59 Last Infusion: 10/08/22 04:53 Dose: Infused Vancomycin HCl 1,500 mg/ (Sodium Chloride) 530 mls @ 200 mls/hr IV Q12H [facility]; Protocol Stop: 10/22/22 09:59 Insulin Aspart (Insulin Aspart Per Unit) 0 units SC ACHS [facility] Stop: 11/06/22 08:19 Last Admin: 10/08/22 13:37 Dose: 8 units Insulin Human NPH (Insulin Human Nph) 30 units SC QDB [facility] Stop: 11/07/22 07:29 Last Admin: 10/08/22 10:26 Dose: 30 units Insulin Human NPH (Insulin Human Nph) 12 units SC QDD [facility]; Protocol Stop: 11/07/22 16:29 Miscellaneous (Carbohydrates For Hypoglycemia ) 15 - 30 gm PO UD PRN PRN Reason: Hypoglycemia Protocol Stop: 11/06/22 08:19 Miscellaneous Information (Pharmacy Glycemic Mgmt Consult) 1 each N/A UD PRN PRN Reason: Consult Stop: 11/06/22 08:19 Miscellaneous Information (Vancomycin Consult Active) 1 each N/A UD PRN PRN Reason: Consult Stop: 11/07/22 07:30 Nitroglycerin (Nitroglycerin Sl 0.4 Mg/Tab Tab) 0.4 mg SL UD PRN PRN Reason: Chest Pain Stop: 11/06/22 08:19 Ondansetron HCl (Ondansetron Inj 2 Mg/Ml 2 Ml Vial) 4 mg IV Q6H PRN PRN Reason: Nausea Stop: 11/06/22 08:19 Sertraline HCl (Sertraline Hcl 100 Mg Tablet) 100 mg PO QAM [facility] Stop: 11/06/22 08:59 Last Admin: 10/08/22 10:24 Dose: 100 mg Tamsulosin HCl (Tamsulosin Hcl 0.4 Mg Cap) 0.4 mg PO HS [facility] Stop: 11/06/22 20:59 Last Admin: 10/07/22 20:31 Dose: 0.4 mg
--- NOTE | 2022-10-08 18:21 | XRay Report ---
XR foot RT min 3V routine HISTORY: 62 years-old Male r/o R toe osteomyelitis chronic right foot pain COMPARISON: None TECHNIQUE: 3 views of the right foot FINDINGS: Moderate sized plantar enthesophyte of the calcaneus. Mild diffuse soft tissue swelling is most prono unced within the forefoot. There is mostly mild multifocal osteoarthritis. No acute fracture, disloca tion or osseous erosion identified. No opaque foreign body. IMPRESSION: No acute osseous abnormality. ACT 112: Negative or not required by law. The above report was generated using voice recognition software. It may contain grammatical, syntax o r spelling errors. Electronically signed by: Juan Gonzalez M.D. 10/08/2022 6:20 PM
[2022-10-08] MEDS: VANCOMYCIN HCL 1,500 MG in SODIUM CHLORIDE 0.9% 500 ML IV SCH (20:37)
[2022-10-08] MEDS: TAMSULOSIN HCL 0.4 MG CAP PO SCH (20:40)
[2022-10-09] MEDS: cefTRIAXone SODIUM 2,000 MG in DEXTROSE 5% 50 ML IV SCH (05:32)
[2022-10-09] MEDS: buPROPion XL 300 MG TABCR PO SCH (07:50)
[2022-10-09] MEDS: ASPIRIN 81 MG ECTAB PO SCH (07:50)
[2022-10-09] MEDS: ENOXAPARIN INJ 40 MG/0.4 ML SYR SQ SCH ×2 (07:50→20:30)
[2022-10-09] MEDS: SERTRALINE HCL 100 MG TABLET PO SCH (07:51)
[2022-10-09] MEDS: FLUTICASONE FUROATE 200MCG 14 PUFFS/INHALER INH SCH (07:51)
[2022-10-09] MEDS: INSULIN HUMAN NPH SC SCH ×2 (07:54→16:54)
[2022-10-09] MEDS: INSULIN ASPART PER UNIT SC SCH ×4 (07:54→20:56)
[2022-10-09] MEDS: VANCOMYCIN HCL 1,500 MG in SODIUM CHLORIDE 0.9% 500 ML IV SCH ×2 (08:00→20:29)
[2022-10-09 08:08] LABS: Hematocrit (blood only) 46.7 % (40.1-51.0); Hemoglobin 15.6 g/dl (14.0-18.0); Mean Corpuscular Hemoglobin 28.7 pg (25.0-34.0); Mean Corpuscular Hgb Conc 33.4 g/dL (32.0-36.0); Mean Corpuscular Volume 85.8 fL (80.0-100.0); Mean Platelet Volume 9.2 fL (9.4-12.4); Platelet Count 217 K/uL (130-400); RDW Coefficient of Variation 13.9 % (11.5-14.5); RDW Standard Deviation 43.1 fL (36.4-46.3); Red Blood Count 5.44 M/uL (4.63-6.08); White Blood Count 8.71 K/ul (4.8-10.8)
[2022-10-09 08:29] LABS: BUN Creatinine Ratio 24.1 (10-20); C Reactive Protein 0.53 mg/dl (0-0.5); Calcium 7.9 mg/dl (8.5-10.1); Creatinine Clr Calc Pharmacy 178.2 ml/min; Est GFR (African American) 128.4 ml/min; Est GFR (Non-African American) 110.8 ml/min; Magnesium 2.1 mg/dl (1.7-2.4); Phosphorus 2.3 mg/dl (2.5-4.9)
[2022-10-09] MEDS ORDERED: POTASSIUM PHOS 3 MMOL/1 ML INFUSION IV STA (11:33)
[2022-10-09] MEDS ORDERED: POTASSIUM PHOSPHATE 9 MMOL in SODIUM CHLORIDE 0.9% 250 ML IV ONE (12:00)
--- NOTE | 2022-10-09 20:04 | Hospitalist Progress Note ---
Date of Service October 09, 2022 Assessment & Plan (1) Bacteremia: (2) Hyperglycemia: Plan: This is a 62-year-old male who presents with hyperglycemia and was hypotesnive in ER. Today blood cultx found positive for Gram posit. cocci. 1. Hyperglycemia. Blood sugar was running high at 400s at home. Patient is on Levemir 75 units b.i.d. and NovoLog BID sliding scale. Glycemic pharmacy consulted The patient is ALLERGIC TO LANTUS. Closely monitor in the hospital. Continue monitor BS . Abnormal Blood cx Blood cx positive for coag negative staph not lugdunensis Mostly contamination Elevated WBC on admission ID was consulted recommended to discontinue IV abx with Ceftriaxone and Vanco Will need referral to podiatry outpatient Hypotension Possible related dehydration No evidence of sepsis Received IVF Continue monitor BP Right big toe diabetic ulcer X-ray showed no evidence of osteomyelitis mildly elevated ESR at 23 and CRP 0.5 Currently on IV antibiotic with Vanco and ceftriaxone ID on board Plan to discontinue antibiotic since right toe does not look infected We will need referral to podiatry Electrolyte abnormality Phosphorus 2.3 Phosphorus replaced continue monitor electrolyte Hyponatremia. Received IV fluids. Continue monitor BMP BP med on hold history of hypertension Since blood pressure was in the low side on admission Will resume metoprolol in am Consider to resume lisinopril on discharge continue monitor BP History of nonischemic cardiomyopathy Most recent echo done in 07/2022 shows EF of 55-60%, grade II diastolic dysfunction. Will resume spironolactone and Lasix Continue monitor closely for sign of volume overload Depression. Continue Zoloft. Benign prostatic hypertrophy. Continue Flomax. History of coronary artery disease continue aspirin and will resume metoprolol . DVT prophylaxis: Lovenox. Code: Full Admission and Anticipated Discharge Date Admission Date: October 07, 2022 Subjective Patient was seen and evaluated for follow-up of abnormal blood culture lying in bed with no acute distress He said that he is not having any pain in his right big toe currently Denies any chest pain, palpitation, dizziness, shortness of breath. Review of Systems Review of Systems: All systems reviewed & are unremarkable except as noted in Subjective Physical Exam Physical Exam: General- No acute distress Head- atraumatic Eyes- PERRL, EOMI, ENT- oropharynx clear Neck- supple, no JVD Lungs- clear to auscultation Heart- regular rhythm; no murmur Abdomen- normal bowel sounds, soft, nontender Extremities- no calf tenderness, right big toe with dressing wrapped Neuro- alert, oriented x 3; PERRL, EOMI; no facial palsy; no dysarthria Skin- warm & dry Results & Data Results & Data ([facility]) Vital Signs (Past 12 Hours) Vital Signs Temp Pulse Resp BP Pulse Ox O2 Del Method 10/09/22 19:12 36.5 C 90 18 142/80 H 97 Room Air 10/09/22 17:05 36.5 C 65 18 163/82 H 92 Room Air 10/09/22 11:25 36.3 C L 72 16 157/83 H 93 Room Air
[2022-10-09] MEDS: TAMSULOSIN HCL 0.4 MG CAP PO SCH (20:30)
[2022-10-10 06:25] LABS: Hematocrit (blood only) 46.1 % (40.1-51.0); Hemoglobin 15.7 g/dl (14.0-18.0); Mean Corpuscular Hemoglobin 28.6 pg (25.0-34.0); Mean Corpuscular Hgb Conc 34.1 g/dL (32.0-36.0); Mean Platelet Volume 9.5 fL (9.4-12.4); Platelet Count 203 K/uL (130-400); RDW Coefficient of Variation 13.7 % (11.5-14.5); RDW Standard Deviation 42.1 fL (36.4-46.3); Red Blood Count 5.49 M/uL (4.63-6.08)
[2022-10-10 06:51] LABS: BUN Creatinine Ratio 19.3 (10-20); Est GFR (African American) 129.4 ml/min; Est GFR (Non-African American) 111.6 ml/min; Phosphorus 2.6 mg/dl (2.5-4.9); Potassium 3.8 mmol/L (3.5-5.1)
[2022-10-10] MEDS ORDERED: VANCOMYCIN LEVEL ONE (07:00)
[2022-10-10] MEDS: buPROPion XL 300 MG TABCR PO SCH (08:44)
[2022-10-10] MEDS: ENOXAPARIN INJ 40 MG/0.4 ML SYR SQ SCH (08:44)
[2022-10-10] MEDS: ASPIRIN 81 MG ECTAB PO SCH (08:45)
[2022-10-10] MEDS: SERTRALINE HCL 100 MG TABLET PO SCH (08:46)
[2022-10-10] MEDS: FLUTICASONE FUROATE 200MCG 14 PUFFS/INHALER INH SCH (08:47)
[2022-10-10] MEDS: INSULIN ASPART PER UNIT SC SCH ×3 (08:52→17:32)
[2022-10-10] MEDS: INSULIN HUMAN NPH SC SCH (08:53)
[2022-10-10] MEDS ORDERED: METOPROLOL SUCC 50MG EXT REL TAB PO SCH (09:00)
[2022-10-10] MEDS ORDERED: FUROSEMIDE 80 MG TAB PO SCH (09:00)
[2022-10-10] MEDS ORDERED: SPIRONOLACTONE 25 MG TAB PO SCH (09:00)
--- NOTE | 2022-10-10 13:32 | Pharmacy Report ---
Pharmacy Glycemic Short Note 2 - Date of Service October 10, 2022 - Glycemic Short BSG Results (Last 24 hours): 10/09/22 10/09/22 10/10/22 16:37 20:06 05:29 Glucose 140 H POC Glucose 161 H 175 H 10/10/22 10/10/22 07:35 11:49 Glucose POC Glucose 130 H 167 H OUTPATIENT ANTIDIABETIC REGIMEN: * Jardiance 25 mg PO daily * Levemir 75 units SQ BID * Novolog 40/50 units with breakfast and dinner respectively * Metformin 1500 mg PO QD HbA1c: 9.7% (08/02/22) ASSESSMENT: 10/10/22: * BSGs remain reasonably well-controlled, ranging 130-175 mg/dL yesterday * Received 80 units (42 units of basal and 38 units of prandial/correctional bolus) * Given mildly elevated fasting BSG, will increase evening NPH to 15 units this evening * No other changes anticipated for today 10/08/22: * Facundo received 69 units of insulin yesterday (40 units NPH + 29 units Novolog) * Fasting BSG slightly elevated, 156 mg/dL. Will increase evening dose of NPH. * Post prandial BSGs appear to be better controlled so far today. No changes to Novolog. Background: * Mr Botello is a 62 y/o M with a PMH of T2DM who presents with hyperglycemia. Per review of previous record, patient receives NPH 30 units in the morning and 10-15 units with dinner. * Will reorder the above NPH. Overnight checks in case evening NPH dose not sufficient. * Order Novolog from previous admission. This includes tight CR. * Patient with ADR to Lantus. PLAN FOR INPATIENT GLYCEMIC CONTROL: * Hold outpatient oral diabetes medications * Basal insulin * NPH 30 units SQ in the morning and 15 units SQ in the evening * Bolus insulin * NovoLog per scale ACHS or Q6hrs while NPO * Goal Range: Low 110 mg/dL - High 140 mg/dL * Correction Factor: 20 mg/dL/unit * Nutritional / Prandial insulin per carb ratio of 1 unit per 4 grams CHO consumed
[2022-10-10] MEDS ORDERED: INSULIN HUMAN NPH SC SCH (16:30)
--- NOTE | 2022-10-25 00:34 | Discharge Summary ---
Date of Service October 10, 2023 Admission HPI Per Admitting Provider CHIEF COMPLAINT: Hyperglycemia. 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 The patient says sugars were running in 400s at home going up and down. In the ER, his blood sugars were in 250s, ER planned to discharge but his systolic blood pressure dropped into 80s and he also had white count of 15. There was some bleeding from the callus of his right big toe, so we were called for admission, thought to be possible early sepsis. The patient is currently resting comfortably, hemodynamically stable. Denies any headache. No blurred visions, no earache, no runny nose, no sore throat, no cough, no fevers. Appetite is okay. No difficulty swallowing. No chest pain, no shortness of breath. He said in the ER, he had one episode of vomiting, no abdominal pain. Says he is micturating a lot. Normal bowel movements.Says his right big toe started some bleeding today. Admission Exam Per Admitting Provider GENERAL: The patient is alert and oriented, not in acute distress. VITAL SIGNS: Temperature 36.6, pulse 72, respiratory rate 25, blood pressure 100/58, oxygen 96% on room air. HEENT: Pupils equal, round and reactive to light. Oral mucosa moist. NECK: No JVD, no neck masses. CARDIOVASCULAR: S1 and S2 heard. Regular rate and rhythm. No murmur, no gallop. RESPIRATORY SYSTEM: Normal AP diameter. No accessory muscle use. No wheezing, no crackles. ABDOMEN: Soft, bowel sounds present, nontender, no distention. CENTRAL NERVOUS SYSTEM: Cranial nerves II-XII grossly intact, nonfocal. EXTREMITIES: Right big toe callus on the palmar aspect is bleeding. No surrounding erythema seen. Principal Diagnosis Bacteremia: Hyperglycemia: Abnormal Blood culture Hypotension Right big toe diabetic ulcer Electrolyte abnormality History of nonischemic cardiomyopathy Depression. Benign prostatic hypertrophy. History of coronary artery disease Discharge Exam General- No acute distress Head- atraumatic Eyes- PERRL, EOMI, ENT- oropharynx clear Neck- supple, no JVD Lungs- clear to auscultation Heart- regular rhythm; no murmur Abdomen- normal bowel sounds, soft, nontender Extremities- no calf tenderness, right big toe with dressing wrapped Neuro- alert, oriented x 3; PERRL, EOMI; no facial palsy; no dysarthria Skin- warm & dry Discharge Data Allergies Allergy/AdvReac Type Severity Reaction Status Date / Time permethrin Allergy Intermediate swelling Verified 08/18/22 07:50 shrimp Allergy Intermediate SWELLS Verified 08/18/22 07:50 sulfamethoxazole Allergy Unknown Verified 08/18/22 07:50 [From Bactrim] trimethoprim [From Bactrim] Allergy Unknown Verified 08/18/22 07:50 amoxicillin AdvReac Intermediate HIVES Verified 08/18/22 07:50 clavulanic acid AdvReac Intermediate HIVES Verified 08/18/22 07:50 insulin glargine AdvReac CHF Verified 08/18/22 07:50 [From Lantus U-100 Insulin] Consultations 10/07/22 05:38 ED Decision to Admit Stat 10/09/22 08:11 Consult Infectious Diseases Routine Ordered Studies Laboratory Results WBC 8.80 K/ul (4.8-10.8) 10/10/22 05:29 RBC 5.49 M/uL (4.63-6.08) 10/10/22 05:29 Hgb 15.7 g/dl (14.0-18.0) 10/10/22 05:29 Hct 46.1 % (40.1-51.0) 10/10/22 05:29 MCV 84.0 fL (80.0-100.0) 10/10/22 05:29 MCH 28.6 pg (25.0-34.0) 10/10/22 05:29 MCHC 34.1 g/dL (32.0-36.0) 10/10/22 05:29 RDW Std Deviation 42.1 fL (36.4-46.3) 10/10/22 05:29 RDW Coeff of Marc 13.7 % (11.5-14.5) 10/10/22 05:29 Plt Count 203 K/uL (130-400) 10/10/22 05:29 MPV 9.5 fL (9.4-12.4) 10/10/22 05:29 Immature Gran % (Auto) 1.0 % 10/07/22 03:59 Neut % (Auto) 66.2 % 10/07/22 03:59 Lymph % (Auto) 22.1 % 10/07/22 03:59 [place] % (Auto) 7.6 % 10/07/22 03:59 Eos % (Auto) 2.1 % 10/07/22 03:59 Baso % (Auto) 1.0 % 10/07/22 03:59 Neut # (Auto) 10.37 K/uL (1.4-6.5) H 10/07/22 03:59 Lymph # (Auto) 3.46 K/uL (1.2-3.4) H 10/07/22 03:59 [place] # (Auto) 1.19 K/uL (0.24-0.82) H 10/07/22 03:59 Eos # (Auto) 0.33 K/uL (0-0.50) 10/07/22 03:59 Baso # (Auto) 0.15 K/uL (0-0.2) 10/07/22 03:59 Immature Gran # (Auto) 0.16 K/uL (0.00-0.02) H 10/07/22 03:59 ESR 23 mm/hr (0-20) H 10/09/22 07:20 Sodium 139 mmol/L (136-145) 10/10/22 05:29 Potassium 3.8 mmol/L (3.5-5.1) 10/10/22 05:29 Chloride 109 mmol/L (98-107) H 10/10/22 05:29 Carbon Dioxide 25 mmol/L (21-32) 10/10/22 05:29 Anion Gap 5 (3-11) 10/10/22 05:29 BUN 11 mg/dl (6-23) 10/10/22 05:29 Creatinine 0.57 mg/dl (0.6-1.4) L 10/10/22 05:29 Est Cr Clr Drug Dosing 178.0 ml/min 10/10/22 05:29 Est GFR ( Amer) 129.4 ml/min 10/10/22 05:29 Est GFR (Non-Af Amer) 111.6 ml/min 10/10/22 05:29 BUN/Creatinine Ratio 19.3 (10-20) 10/10/22 05:29 Glucose 140 mg/dl (70-99(Fasting)) H 10/10/22 05:29 POC Glucose 174 mg/dl (70-99) H 10/10/22 16:18 Lactate 1.1 mmol/L (0.4-2.0) 10/07/22 06:11 Calcium 8.0 mg/dl (8.5-10.1) L 10/10/22 05:29 Phosphorus 2.6 mg/dl (2.5-4.9) 10/10/22 05:29 Magnesium 2.1 mg/dl (1.7-2.4) 10/09/22 07:20 Total Bilirubin 0.3 mg/dl (0.2-1.0) 10/07/22 03:59 AST 21 U/L (13-39) 10/07/22 03:59 ALT 23 U/L (7-52) 10/07/22 03:59 Alkaline Phosphatase 105 U/L (34-104) H 10/07/22 03:59 C-Reactive Protein 0.53 mg/dl (0-0.5) H 10/09/22 07:20 Total Protein 7.1 gm/dl (6.0-8.3) 10/07/22 03:59 Albumin 3.6 gm/dl (3.4-5.0) 10/07/22 03:59 Globulin 3.5 gm/dl (2.5-4.0) 10/07/22 03:59 Albumin/Globulin Ratio 1.0 (0.9-2) 10/07/22 03:59 Urine Color Yellow 10/07/22 03:59 Urine Appearance Clear (Clear) 10/07/22 03:59 Urine pH 6.0 (4.5-7.5) 10/07/22 03:59 Ur Specific Dillard 1.033 (1.000-1.030) H 10/07/22 03:59 Urine Protein Negative (Negative) 10/07/22 03:59 Urine Glucose (UA) 3+ (Negative) H 10/07/22 03:59 Urine Ketones Negative (Negative) 10/07/22 03:59 Urine Blood Negative (Negative) 10/07/22 03:59 Urine Nitrite Negative (Negative) 10/07/22 03:59 Urine Bilirubin Negative (Negative) 10/07/22 03:59 Urine Urobilinogen Negative (Negative) 10/07/22 03:59 Ur Leukocyte Esterase Negative (Negative) 10/07/22 03:59 SARS-CoV-2 (PCR) NEGATIVE (Negative) 10/07/22 05:30 Enterobacterales (PCR) (NotDetected) 10/07/22 04:49 E. coli (PCR) (NotDetected) 10/07/22 04:49 Influenza Type A (PCR) Negative (Neg) 10/07/22 05:30 Influenza Type B (PCR) Negative (Neg) 10/07/22 05:30 RSV (RT-PCR) Negative (Neg) 10/07/22 05:30 Staphylococcus sp PCR DETECTED (NotDetected) A 10/07/22 04:49 mecA/C-Methicil Resis Gene DETECTED (NotDetected) A 10/07/22 04:49 mcr-1 Colistin Res Gene PCR SCROLL ASSEMBLER 10/07/22 04:49 Staph epidermidis (PCR) DETECTED (NotDetected) A 10/07/22 04:49 blaIMP Car res Gene PCR SCROLL ASSEMBLER 10/07/22 04:49 KPC-Carbap Res Gene PCR SCROLL ASSEMBLER 10/07/22 04:49 blaNDM Car Res Gene PCR SCROLL ASSEMBLER 10/07/22 04:49 OXA-48 Carbapenem Resis Gene (PCR) SCROLL ASSEMBLER 10/07/22 04:49 blaVIM Car Res Gene PCR SCROLL ASSEMBLER 10/07/22 04:49 CTX-M Gene Resistance (PCR) SCROLL ASSEMBLER 10/07/22 04:49 Bld Cult ID Panel PCR See PCR Comment (NotDetected) 10/07/22 04:49 Impressions Chest X-Ray 10/07/22 04:15 XR chest 1V portable CLINICAL HISTORY: cough TECHNIQUE: Single frontal radiograph of the chest was obtained. Comparison: Comparison is made to chest radiograph 09/21/2022 FINDINGS: No lines and tubes are seen. The cardiomediastinal silhouette is normal. The lungs are clear. No evidence of pleural effusion or pneumothorax. IMPRESSION: No acute abnormalities and in particular no evidence of pneumonia. ACT 112: Negative or not required by law. Electronically signed by: Daron Terrell M.D. 10/07/2022 7:47 AM Foot X-Ray 10/08/22 16:46 XR foot RT min 3V routine HISTORY: 62 years-old Male r/o R toe osteomyelitis chronic right foot pain COMPARISON: None TECHNIQUE: 3 views of the right foot FINDINGS: Moderate sized plantar enthesophyte of the calcaneus. Mild diffuse soft tissue swelling is most pronounced within the forefoot. There is mostly mild multifocal osteoarthritis. No acute fracture, dislocation or osseous erosion identified. No opaque foreign body. IMPRESSION: No acute osseous abnormality. ACT 112: Negative or not required by law. The above report was generated using voice recognition software. It may contain grammatical, syntax or spelling errors. Electronically signed by: Juan Gonzalez M.D. 10/08/2022 6:20 PM Hospital Course (1) Bacteremia: (2) Hyperglycemia: This is a 62-year-old male who presents with hyperglycemia and was hypotesnive in ER. Today blood cultx found positive for Gram posit. cocci. 1. Hyperglycemia. Blood sugar was running high at 400s at home. Patient is on Levemir 75 units b.i.d. and NovoLog BID sliding scale. Glycemic pharmacy consulted The patient is ALLERGIC TO LANTUS. Closely monitor in the hospital. Continue monitor BS . Abnormal Blood cx Blood cx positive for coag negative staph not lugdunensis Mostly contamination Elevated WBC on admission ID was consulted recommended to discontinue IV abx with Ceftriaxone and Vanco Will need referral to podiatry outpatient Hypotension Possible related dehydration No evidence of sepsis Received IVF Continue monitor BP Right big toe diabetic ulcer X-ray showed no evidence of osteomyelitis mildly elevated ESR at 23 and CRP 0.5 Currently on IV antibiotic with Vanco and ceftriaxone ID on board Plan to discontinue antibiotic since right toe does not look infected We will need referral to podiatry Electrolyte abnormality Phosphorus 2.3 Phosphorus replaced continue monitor electrolyte Hyponatremia. Received IV fluids. Continue monitor BMP BP med on hold history of hypertension Since blood pressure was in the low side on admission Will resume metoprolol in am Consider to resume lisinopril on discharge continue monitor BP History of nonischemic cardiomyopathy Most recent echo done in 07/2022 shows EF of 55-60%, grade II diastolic dy sfunction. Will resume spironolactone and Lasix Continue monitor closely for sign of volume overload Depression. Continue Zoloft. Benign prostatic hypertrophy. Continue Flomax. History of coronary artery disease continue aspirin and will resume metoprolol . DVT prophylaxis: Lovenox. Code: Full Total Time Total Time Spent Total Time Spent (In Minutes): 35 minutes Discharge Plan Discharge Items Patient Disposition: Home - Self-Care Reason For Visit: HYPERGLYCEMIA Discharge Diagnosis: Bacteremia: Hyperglycemia: Abnormal Blood culture Hypotension Right big toe diabetic ulcer Electrolyte abnormality History of nonischemic cardiomyopathy Depression. Benign prostatic hypertrophy. History of coronary artery disease Activity: Resume your previous activity Non-emergency contact: Primary Care Provider Call non-emergency contact if: you have any medication questions Follow-up/Referrals: Willam Fofana, [Primary Care Provider] - Diet: Carb Consistent or DM2 Addtl Attending Provider Instructions: Follow up with your primary care provider Dr. Fofana within 1 week ( please call for the follow up appointment) Follow up with wound care clinic ( please call for the follow up appointment) Follow up with Podiatry dr. Baum outpatient Follow up with pharmacy on 10/13/22 for your diabetes management Continue monitor your blood sugar and bring your blood sugar log at your next appointment with your provider Seek medical attention if your symptoms reoccurs Pending Studies at Discharge: No Stand-Alone Forms: My Search Initiatives, Smoking Cessation Medications and DC Order Prescriptions: Continued furosemide 40 mg Tablet 80 mg PO QAM Rx Instructions: TAKES 80 MG QAM, THEN 40 MG QPM. spironolactone 25 mg Tablet 25 mg PO DAILY lisinopril 40 mg Tablet 40 mg PO QAM metoprolol succinate 50 mg tablet extended release 24 hr 50 mg PO BID tamsulosin 0.4 mg capsule 0.4 mg PO DAILY fluticasone propionate [Flovent HFA] 220 mcg/actuation HFA aerosol inhaler 2 puff INHALATION BID furosemide [Lasix] 40 mg Tablet 40 mg PO .QAFTERNOON sertraline 100 mg tablet 100 mg PO DAILY aspirin 81 mg Tablet,Delayed Release (Dr/Ec) 81 mg PO DAILY nitroglycerin [Nitrostat] 0.4 mg Tablet, Sublingual 0.4 mg sublingual DIRECTED PRN (Reason: Chest Pain) albuterol sulfate 90 mcg/actuation HFA aerosol inhaler 2 puff INHALATION Q4 PRN (Reason: Shortness Of Breath Or Wheezing) insulin aspart U-100 100 unit/mL (3 mL) insulin pen See Rx Instructions .ROUTE .COMPLEX Rx Instructions: 40 UNITS WITH BREAKFAST, 50 UNITS WITH DINNER DIRECTED..plus sliding scale: max 120 units daily metformin 750 mg Tablet Extended Release 24 Hr 1,500 mg PO DAILY bupropion HCl 300 mg tablet extended release 24 hr 300 mg PO DAILY Jardiance 25 mg tablet 25 mg PO DAILY Chromium-Cinnamon 1 tab PO DAILY Levemir FlexTouch U-100 Insuln 100 unit/mL (3 mL) insulin pen 75 unit SUBCUT AMPM ascorbic acid (vitamin C) [Vitamin C] 500 mg Tablet 1,000 mg PO DAILY Multiple Vitamin-Minerals Tablet 1 tab PO DAILY bacillus coagulans-inulin 1 billion-250 cell-mg Capsule 1 cap PO DAILY sildenafil 100 mg tablet 50 - 100 mg PO ONCE PRN (Reason: 1 hour before sex) Discharge Orders: Discharge Order (Routine); Ordered 10/10/22 Ordered By: Darnell Valderrama/Other Patient Handouts: Managing Type 2 Diabetes Admission Data Admit Date/Time: 10/07/22 06:57 Attending Provider: Darnell Morris Admit Provider: Benoit De La Torre Primary Care Provider: Willam Fofana Other Providers: Cuong Black Other Interventions: Discharge Summary Assessment (RN) Last Done: 10/10/22 17:39
== END 2022-10-10 18:14 | disposition home or self-care (01) | DRG 638 ==
LOC: ED 03:41 → EDINP 06:57 → SUATTDRO 06:57 → 2S 10-08 08:19

== ENCOUNTER 2023-05-26 09:29 | Inpatient (IN) ==
[2023-05-26 12:19] LABS: Basophils # (auto) 0.13 K/uL (0-0.2); Eosinophils # (auto) 0.15 K/uL (0-0.50); Eosinophils % (auto) 1.2 %; Hematocrit (blood only) 49.9 % (42.0-52.0); Hemoglobin 16.8 g/dl (14.0-18.0); Immature Granulocytes # (auto) 0.21 K/uL (0.01-0.20); Immature Granulocytes % (auto) 1.6 %; Lymphocytes # (auto) 3.02 K/uL (1.2-3.4); Lymphocytes % (auto) 23.7 %; Mean Corpuscular Hemoglobin 27.7 pg (25.0-34.0); Mean Corpuscular Hgb Conc 33.7 g/dL (32.0-36.0); Mean Corpuscular Volume 82.2 fL (80.0-100.0); Mean Platelet Volume 9.5 fL (9.4-12.4); Monocytes # (auto) 0.99 K/uL (0.11-0.59); Monocytes % (auto) 7.8 %; Neutrophils # (auto) 8.26 K/uL (1.40-6.50); Neutrophils % (auto) 64.7 %; Platelet Count 299 K/uL (130-400); RDW Coefficient of Variation 13.8 % (11.5-14.5); RDW Standard Deviation 40.6 fL (36.4-46.3); Red Blood Count 6.07 M/uL (4.70-6.10); White Blood Count 12.76 K/ul (4.8-10.8)
[2023-05-26 12:41] LABS: Alanine Aminotransferase 18 U/L (7-52); Albumin Globulin Ratio 1.1 (0.9-2); Albumin Level 3.6 gm/dl (3.4-5.0); Alkaline Phosphatase 120 U/L (34-104); Anion Gap 5 (3-11); Aspartate Aminotransferase 14 U/L (13-39); BUN Creatinine Ratio 26.7 (10-20); Bilirubin,Total 0.3 mg/dl (0.2-1.0); Blood Urea Nitrogen 23 mg/dl (6-23); Calcium 8.7 mg/dl (8.6-10.3); Carbon Dioxide 26 mmol/L (21-32); Chloride 92 mmol/L (98-107); Est GFR (African American) 109.2 ml/min; Est GFR (Non-African American) 94.3 ml/min; Globulin 3.3 gm/dl (2.5-4.0); Glucose 671 mg/dl (70-99(Fasting)); Potassium 5.5 mmol/L (3.5-5.1); Sodium 123 mmol/L (136-145); Total Protein 6.9 gm/dl (6.0-8.3)
[2023-05-26] MEDS ORDERED: KETOROLAC TROMETHAMINE 15 MG/ML VIAL IV ONE (12:41)
[2023-05-26] MEDS ORDERED: SODIUM CHLORIDE 0.9% 1000ML 500 ML IV ONE (12:41)
--- NOTE | 2023-05-26 12:43 | Emergency Department Note ---
Impression & Plan Acute hyperglycemia, Right groin pain, Superficial vein thrombosis ED Provider Note NAME: ELIN ELLISON AGE: 62 SEX: M : 1960 ARRIVES VIA: Walk-In INFORMANT: Patient ED PROVIDER(S): Ahmet Brown DO CHIEF COMPLAINT: right thigh pain HPI: Patient is a 62-year-old male with a past medical history of diabetes and nonischemic cardiomyopathy who presents to the ER for right groin pain/rash. This started with the past 3 to 4 days. He notes the pain is worsened with movement of his leg and on palpation. Denies any fevers. No headache or change in vision. No chest pain or shortness of breath. No nausea, vomiting, or diarrhea. He does have some tingling on his right thigh. No dysuria, urgency, or frequency. No other exacerbating or remitting factors. PAST MEDICAL HISTORY:See Below PAST SURGICAL HISTORY:See Below FAMILY HISTORY:See Below SOCIAL HISTORY:See Below HOME MEDICATIONS:See Below ALLERGIES:See Below VITALS:See Below PHYSICAL EXAMINATION: GENERAL: Sitting up in bed, alert, well appearing, well nourished, no distress, non-toxic EYE EXAM: normal conjunctiva. OROPHARYNX: no exudate, no erythema, lips, buccal mucosa, and tongue normal and mucous membranes are moist NECK: supple, no nuchal rigidity, no adenopathy, non-tender LUNGS: Clear to auscultation. Normal chest wall mechanics HEART: no murmurs, S1 normal and S2 normal ABDOMEN: abdomen soft, non-tender, normo-active bowel sounds, no masses, no rebound or guarding. BACK: Back is symmetrical on inspection and there is no deformity, no midline tenderness, no CVA tenderness. SKIN: no rashes and no bruising UPPER EXTREMITIES: upper extremities are grossly normal. LOWER EXTREMITIES: Flexion-extension right hip knee ankle and EHL 5 out of 5 bilaterally. DP and PT 1 out of 4 bilaterally. Erythema and tenderness in the right groin. NEURO EXAM: Normal sensorium, cranial nerves II-XII grossly intact, normal speech, no gross weakness of arms, no gross weakness of legs. MEDICAL DECISION MAKING: Patient is a 62-year-old male who presents ER for above-stated complaint. IV was established blood was obtained. External records reviewed. Labs show mild leukocytosis 12,000. No significant anemia. BMP with hyponatremia 122 and elevated blood sugar of nearly 700. This was nongap. LFTs bilirubin was unremarkable. UA with a large amount of glucose. Lyme was negative. Do believe the rash in the right groin is most likely fungal. Ultrasound arterial of the right lower extremity was negative. Venous study resulted after admission and showed thrombus within 5 cm of the deep venous structure. This will likely need treatment as its within 5 cm of the deep venous structure but will defer to the hospitalist as the patient was admitted. He was on an insulin drip and given insulin bolus. He was given IV fluids. Updated at bedside admitted for further work-up to the hospitalist service. Triage Nursing notes reviewed. Limited review of prior medical records performed Vital Signs: reviewed and remarkable for HTN Differential diagnosis: Infection, dehydration, metabolic abnormality, hypo/hyperglycemia, electrolyte disturbance, anemia, hypoxia, cardiac sources, intracerebral event, toxicologic, neurologic, as well as other pathologies. ER treatment provided: See below Diagnostics interpreted by me include EKG and cardiac monitoring as listed below: -Cardiac Monitoring: An order was placed for continuous cardiac monitoring. The monitor shows a rate of 90 with sinus rhythm. -ECG: none -Laboratory studies:Interpreted by me as stated above in MDM and shown below. Imaging studies: Xrays: As interpreted by me: Portable AP upright 1 view of the chest shows no focal infiltrate CTs show: none Arterial and venous studies as described above Consultation(s): As described in [facility] Procedures:none Critical Care: I have personally spent 31 minutes of critical care time in the direct management of this patient. This includes bedside care, interpretation of diagnostic studies, and testing, discussion with consultants, patient, and family members, and other required patient management activities. This 31 minutes is in excess of all separately billable procedures. Past Med/Surg History Medical History (Updated 05/26/23 @ 17:54 by Ahmet Brown DO) Accidental fall tripped over dog bed, hit back of head, checked in the ED poss concussion Anxiety Congestive heart failure Depression Diabetes mellitus, type 2 Dysequilibrium H/O drug abuse Hepatitis C Hyperglycemia Hypertension Nonischemic cardiomyopathy "prior EF 30% per Epic records. echo 02/2015- EF 54%" Surgical History History of cardiac cath 03/2015 @ [facility], no stents follows with Dr. Monet History of colonoscopy History of tooth extraction History of umbilical hernia repair x2 History of wisdom tooth extraction Family History Mother Family history of diabetes mellitus Father Family history of diabetes mellitus Other No family history of adverse response to anesthesia Social History Smoking Status: Never smoker Cigarettes Per Day: Says he occasionally will smoke a cigar.; Second Hand Exposure: Yes; Do You Dip or Chew Tobacco: No; Hx Alcohol Use: No Hx Substance Use: Yes Last Used Substance Other:: last used meth couple weeks ago Preferred Language: Mohawk Communication Ability: Effective 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 Required: No Beliefs That Will Affect Care: Spiritual marital status: Single Current Living Situation: Alone Current Living Situation Comment: lives alone Feels Safe at Home: Yes Assistive Devices: None Allergies Allergies Allergy/AdvReac Type Severity Reaction Status Date / Time permethrin Allergy Intermediate swelling Verified 12/26/22 02:58 shrimp Allergy Intermediate SWELLS Verified 12/26/22 02:58 sulfamethoxazole Allergy Unknown Unknown Verified 12/26/22 02:58 [From Bactrim] trimethoprim [From Bactrim] Allergy Unknown Unknown Verified 12/26/22 02:58 insulin glargine AdvReac Severe CHF Verified 12/26/22 02:58 [From Lantus U-100 Insulin] amoxicillin AdvReac Intermediate HIVES Verified 12/26/22 02:58 clavulanic acid AdvReac Intermediate HIVES Verified 12/26/22 02:58 Home Meds Home Medications Medication Instructions Recorded Confirmed spironolactone 25 mg tablet 25 mg PO DAILY 01/04/19 05/26/23 Chromium-Cinnamon 1 tab PO DAILY 08/01/22 05/26/23 aspirin 81 mg tablet,delayed 81 mg PO DAILY 08/01/22 05/26/23 release bupropion HCl 300 mg 24 hr tablet, 300 mg PO DAILY 08/01/22 05/26/23 extended release empagliflozin 25 mg tablet 25 mg PO DAILY 08/01/22 05/26/23 (Jardiance) insulin aspart U-100 100 unit/mL See Rx Instructions .Route .COMPLEX 08/01/22 05/26/23 (3 mL) subcutaneous pen metformin 750 mg tablet,extended 1,500 mg PO DAILY 08/01/22 05/26/23 release 24 hr nitroglycerin 0.4 mg sublingual 0.4 mg sublingual DIRECTED PRN 08/01/22 05/26/23 tablet (Nitrostat) Chest Pain ascorbic acid (vitamin C) 500 mg 1,000 mg PO DAILY 09/21/22 05/26/23 tablet (Vitamin C) insulin detemir U-100 100 unit/mL 80 unit subcut AMPM 09/21/22 05/26/23 (3 mL) subcutaneous pen (Levemir FlexTouch U-100 Insulin) multivitamin with minerals 1 tab PO DAILY 09/21/22 05/26/23 (Multiple Vitamin-Minerals tablet) Results & Data (ED) Vital Signs Vital Signs - 24 hr 05/26/23 09:42 05/26/23 12:58 05/26/23 13:02 Temperature 36.6 C Temperature Source Temporal Artery Scan Pulse Rate 66 93 H Pulse Rate [Apical] 97 H Respiratory Rate 18 18 Respiratory Effort / Characteristics Non-Labored Spontaneous Non-Labored Respiratory Depth Normal Normal Respiratory Pattern Regular Regular Blood Pressure 169/84 H Blood Pressure [Right Arm] 158/85 H Blood Pressure Mean 112 Blood Pressure Mean [Right Arm] 109 Pulse Oximetry 98 98 Oxygen Delivery Method Room Air Room Air Sepsis Recent Fever Within 48 Hours No Sepsis New/Unexplained Change in Mental Status No Sepsis Action Taken by Nursing No Action Required Laboratory Data 05/26/23 12:01 05/26/23 12:01 Lab Results 05/26/23 05/26/23 05/26/23 Range/Units 12:01 12:01 12:01 WBC 12.76 H (4.8-10.8) K/ul RBC 6.07 (4.70-6.10) M/uL Hgb 16.8 (14.0-18.0) g/dl Hct 49.9 (42.0-52.0) % MCV 82.2 (80.0-100.0) fL MCH 27.7 (25.0-34.0) pg MCHC 33.7 (32.0-36.0) g/dL RDW Std Deviation 40.6 (36.4-46.3) fL RDW Coeff of Marc 13.8 (11.5-14.5) % Plt Count 299 (130-400) K/uL MPV 9.5 (9.4-12.4) fL Immature Gran % (Auto) 1.6 % Neut % (Auto) 64.7 % Lymph % (Auto) 23.7 % [place] % (Auto) 7.8 % Eos % (Auto) 1.2 % Baso % (Auto) 1.0 % Neut # (Auto) 8.26 H (1.40-6.50) K/uL Lymph # (Auto) 3.02 (1.2-3.4) K/uL [place] # (Auto) 0.99 H (0.11-0.59) K/uL Eos # (Auto) 0.15 (0-0.50) K/uL Baso # (Auto) 0.13 (0-0.2) K/uL Immature Gran # (Auto) 0.21 H (0.01-0.20) K/uL Sodium 123 L (136-145) mmol/L Potassium 5.5 H (3.5-5.1) mmol/L Chloride 92 L (98-107) mmol/L Carbon Dioxide 26 (21-32) mmol/L Anion Gap 5 (3-11) BUN 23 (6-23) mg/dl Creatinine 0.86 (0.6-1.4) mg/dl Est Cr Clr Drug Dosing Not Reportable Est GFR ( Amer) 109.2 ml/min Est GFR (Non-Af Amer) 94.3 ml/min BUN/Creatinine Ratio 26.7 H (10-20) Glucose 671 H* (70-99(Fasting)) mg/dl POC Glucose (70-99) mg/dl Calcium 8.7 (8.6-10.3) mg/dl Phosphorus 2.0 L (2.5-4.9) mg/dl Magnesium 2.1 (1.7-2.4) mg/dl Total Bilirubin 0.3 (0.2-1.0) mg/dl AST 14 (13-39) U/L ALT 18 (7-52) U/L Alkaline Phosphatase 120 H (34-104) U/L Total Protein 6.9 (6.0-8.3) gm/dl Albumin 3.6 (3.4-5.0) gm/dl Globulin 3.3 (2.5-4.0) gm/dl Albumin/Globulin Ratio 1.1 (0.9-2) Urine Color Urine Appearance (Clear) Urine pH (4.5-7.5) Ur Specific [place] (1.000-1.030) Urine Protein (Negative) Urine Glucose (UA) (Negative) Urine Ketones (Negative) Urine Blood (Negative) Urine Nitrite (Negative) Urine Bilirubin (Negative) Urine Urobilinogen (Negative) Ur Leukocyte Esterase (Negative) Urine Opiates Screen (Neg) Ur Methadone, Qual (Neg) Urine Barbiturates (Neg) Ur Phencyclidine (PCP) (Neg) U Amphetamin/Meth Scrn (Neg) MDMA (Ecstasy) Screen (Neg) U Benzodiazepines Scrn (Neg) Ur Cocaine Metabolite (Neg) U Marijuana (THC) Screen (Neg) Lyme Disease IgG Ab Negative (Negative) Lyme Disease IgM Ab Negative (Negative) 05/26/23 05/26/23 05/26/23 Range/Units 14:37 14:47 14:47 WBC (4.8-10.8) K/ul RBC (4.70-6.10) M/uL Hgb (14.0-18.0) g/dl Hct (42.0-52.0) % MCV (80.0-100.0) fL MCH (25.0-34.0) pg MCHC (32.0-36.0) g/dL RDW Std Deviation (36.4-46.3) fL RDW Coeff of Marc (11.5-14.5) % Plt Count (130-400) K/uL MPV (9.4-12.4) fL Immature Gran % (Auto) % Neut % (Auto) % Lymph % (Auto) % [place] % (Auto) % Eos % (Auto) % Baso % (Auto) % Neut # (Auto) (1.40-6.50) K/uL Lymph # (Auto) (1.2-3.4) K/uL [place] # (Auto) (0.11-0.59) K/uL Eos # (Auto) (0-0.50) K/uL Baso # (Auto) (0-0.2) K/uL Immature Gran # (Auto) (0.01-0.20) K/uL Sodium (136-145) mmol/L Potassium (3.5-5.1) mmol/L Chloride (98-107) mmol/L Carbon Dioxide (21-32) mmol/L Anion Gap (3-11) BUN (6-23) mg/dl Creatinine (0.6-1.4) mg/dl Est Cr Clr Drug Dosing Est GFR ( Amer) ml/min Est GFR (Non-Af Amer) ml/min BUN/Creatinine Ratio (10-20) Glucose (70-99(Fasting)) mg/dl POC Glucose 585 H* (70-99) mg/dl Calcium (8.6-10.3) mg/dl Phosphorus (2.5-4.9) mg/dl Magnesium (1.7-2.4) mg/dl Total Bilirubin (0.2-1.0) mg/dl AST (13-39) U/L ALT (7-52) U/L Alkaline Phosphatase (34-104) U/L Total Protein (6.0-8.3) gm/dl Albumin (3.4-5.0) gm/dl Globulin (2.5-4.0) gm/dl Albumin/Globulin Ratio (0.9-2) Urine Color Yellow Urine Appearance Clear (Clear) Urine pH 5.0 (4.5-7.5) Ur Specific [place] 1.029 (1.000-1.030) Urine Protein Negative (Negative) Urine Glucose (UA) 3+ H (Negative) Urine Ketones Negative (Negative) Urine Blood Negative (Negative) Urine Nitrite Negative (Negative) Urine Bilirubin Negative (Negative) Urine Urobilinogen Negative (Negative) Ur Leukocyte Esterase Negative (Negative) Urine Opiates Screen Neg (Neg) Ur Methadone, Qual Neg (Neg) Urine Barbiturates Neg (Neg) Ur Phencyclidine (PCP) Neg (Neg) U Amphetamin/Meth Scrn Neg (Neg) MDMA (Ecstasy) Screen Neg (Neg) U Benzodiazepines Scrn Neg (Neg) Ur Cocaine Metabolite Neg (Neg) U Marijuana (THC) Screen Neg (Neg) Lyme Disease IgG Ab (Negative) Lyme Disease IgM Ab (Negative) Administered Medications Insulin Human Regular 250 (units/ Sodium Chloride) 250 mls @ 3.6 mls/hr IV .Q24H [facility]; Protocol Stop: 06/25/23 12:59 Last Titration: 05/26/23 17:31 Dose: 3.6 units/hr, 3.6 mls/hr Documented By: CARLOS Co-signed By: BETYY Admin: 05/26/23 13:26 Dose: 4.5 units/hr, 4.5 mls/hr Documented By: ANNITA Co-signed By: CHAO Sodium Chloride (Nss 1000ml) 1,000 mls @ 100 mls/hr IV .Q10H UMLU Stop: 05/27/23 02:19 Last Admin: 05/26/23 17:35 Dose: 100 mls/hr Documented By: CARLOS Discontinued Medications Sodium Chloride (Nss 1000ml) 500 mls @ 999 mls/hr IV .Q31M ONE Stop: 05/26/23 13:11 Last Infusion: 05/26/23 13:32 Dose: 0 mls/hr Documented By: Admin: 05/26/23 12:56 Dose: 999 mls/hr Documented By: ANNITA Sodium Chloride (Nss 1000ml) 1,000 mls @ 999 mls/hr IV .Q1H1M ONE Stop: 05/26/23 15:30 Last Infusion: 05/26/23 16:23 Dose: 0 mls/hr Documented By: Admin: 05/26/23 15:27 Dose: 999 mls/hr Documented By: ROSI Insulin Human Regular (Novolin-R Bolus From Bag) 4.5 units IV ONE ONE Stop: 05/26/23 13:01 Last Admin: 05/26/23 13:29 Dose: 4.5 units Documented By: ANNITA Co-signed By: CHAO Ketorolac Tromethamine (Ketorolac Tromethamine 15 Mg/Ml Vial) 10 mg IV NOW ONE Stop: 05/26/23 12:42 Last Admin: 05/26/23 12:56 Dose: Not Given Documented By: ANNITA Metoprolol Succinate (Metoprolol Succ 50mg Ext Rel Tab) 50 mg PO NOW STA Stop: 05/26/23 14:31 Last Admin: 05/26/23 15:31 Dose: 50 mg Documented By: ROSI Miscellaneous (Stat Insulin Drip) 1 each N/A NOW STA Stop: 05/26/23 12:46 Last Admin: 05/26/23 13:31 Dose: 1 each Documented By: ANNITA Imaging Data Radiologist's Impression: Venous Doppler Study 05/26/23 13:15 US venous doppler LE RT CLINICAL HISTORY: rle pain TECHNIQUE: Right lower extremity real-time compression venous ultrasound with Color Doppler imaging. Utilizing real-time ultrasonic imaging multiple real time high-resolution ultrasonic images with compression and noncompression maneuvers of the deep venous system in addition to color doppler imaging were performed from the common femoral vein through the proximal calf veins. COMPARISON: None available at the time of this dictation. FINDINGS/IMPRESSION: Currently there is normal compressibility of the deep venous system from the common femoral vein through the proximal calf veins. Superficial nonocclusive thrombus of the great saphenous vein extends from the proximal thigh to distal calf, approaching 4.8 cm from the junction with the deep venous system. ACT 112: Negative or not required by law. Electronically signed by: Daron Terrell M.D. 05/26/2023 3:42 PM Duplex Scan Lower Extremity Artery 05/26/23 13:18 US arterial duplex right lower extremity CLINICAL HISTORY: Unable to get right lower extremity distal pulses COMPARISON STUDY: None. FINDINGS: Normal biphasic to triphasic waveforms and velocities seen throughout the right lower extremity arterial system. No evidence for arterial occlusion. There is mild scattered calcified plaque identified. IMPRESSION: No significant stenosis or occlusion within the right lower extremity arterial system. ACT 112: Negative or not required by law. Electronically signed by: Nehemiah Borges M.D. 05/26/2023 3:53 PM Discharge Plan Visit Data Chief Complaint: Leg Injury/Pain Stated Complaint: RT HIP/ LEG PAIN ED Provider: Ahmet Brown Discharge Problem: Acute hyperglycemia, Right groin pain, Superficial vein thrombosis Patient Disposition: Admitted As Inpatient Discharge Instructions Interventions: ED Discharge Assessment Last Done: 05/26/23 16:37
[2023-05-26] MEDS ORDERED: GLUCOSE 10 TAB/TUBE PO PRN (12:45)
[2023-05-26] MEDS ORDERED: GLUCAGON FOR INJ 1 MG VIAL SQ PRN (12:45)
[2023-05-26] MEDS ORDERED: CARBOHYDRATES FOR HYPOGLYCEMIA PO PRN (12:45)
[2023-05-26] MEDS ORDERED: GLUCOSE 40% GEL 15 GM TUBE PO PRN (12:45)
[2023-05-26] MEDS ORDERED: INSULIN REGULAR 250 UNITS in SODIUM CHLORIDE 0.9% 247.5 ML IV SCH ×2 (12:45→13:00)
[2023-05-26] MEDS ORDERED: HHS GOAL RANGE 250-350 mg/dl ONE ×2 (12:45→16:20)
[2023-05-26] MEDS ORDERED: STAT INSULIN DRIP STA (12:45)
[2023-05-26] MEDS ORDERED: NovoLIN-R BOLUS FROM BAG IV ONE (13:00)
--- NOTE | 2023-05-26 14:08 | History & Physical Report ---
Date of Service May 26, 2023 Assessment & Plan (1) Hyperglycemia due to type 2 diabetes mellitus: Plan: Patient is 62-year-old male with PMH HTN, MT, nonischemic cardiomyopathy, chronic hepatitis C, DM II, polyneuropathy, ALEJANDRA, history of IV drug abuse, current methamphetamine use, depression, BPH presented to ER with complaint right groin pain x 3 days Insulin Dependent DM II Patient noncompliant with home insulin. Home regimen Levemir 80 units BID, Novolog 45 units breakfast, 50 units dinner +sliding scale, metformin 1500mg daily & jardiance 25mg daily In ER found to be hyperglycemic with BS. K: 5.5, A. UA +ketones otherwise unremarkable, CXR without infiltrate In ER given 500ml NSS and insulin bolus and drip started VBG pending A1c pending Give 1L NSS Continue NSS at 100ml currently with repeat BMP to further adjust fluids Continue insulin drip Hold home oral agents and home inuslin Further adjust insulin drip and plan to transition to basal bolus insulin when BSGs improve Repeat BMP, magnesium, phosphorus Q4H Pharmacy glycemic consult PSEUDOHYPONATREMIA: Corrected Na of 132 for glucose of 671 Monitor Na (2) Candidiasis: Plan: Right groin erythema and bilateral groin erythema consistent with candidiasis Start topical antifungal powder (3) Superficial vein thrombosis: Plan: RLE Venous Doppler: Currently there is normal compressibility of the deep venous system from the common femoral vein through the proximal calf veins. Superficial nonocclusive thrombus of the great saphenous vein extends from the proximal thigh to distal calf, approaching 4.8 cm from the junction with the deep venous system. RLE Arterial Doppler: No significant stenosis or occlusion within the right lower extremity arterial system. Start Heparin IV (4) Hypertension: Plan: Previously reports was on lisinopril 40 mg daily, metoprolol succinate 50 mg twice daily however patient has not been taking for at least 1 year. Verified with patient's pharmacy has not been filled >1 year Restart metoprolol succinate 50 mg daily and monitor Monitor BPs, may need to consider adding additional agents (5) Nonischemic cardiomyopathy: Plan: Prior history nonischemic cardiomyopathy. History [place] Echo 07/2022: EF: 55-60%, grade 2 diastolic dysfunction Continue aspirin, metoprolol succinate Previously prescribed Lasix however has not been filled for >1 year and patient has not been taking On spironolactone, will hold currently (6) COVID-19: Plan: Beginning of 05/2023 with sore throat, congestion, cough and reported positive home COVID-19 test Started Paxlovid 05/12/2023 and reports finishing course Reports resolution of symptoms CXR: No acute infiltrate SARS Cov 2 PCR negative today (7) Depression: Plan: Continue Wellbutrin Previously on sertraline however also has not been filled for years (8) H/O drug abuse: Plan: Smokes methamphetamines almost daily, but reports hasn't used for past week. Reports last IV drug use was approximately 10 years ago Urine drug screen pending Drug cessation recommended (9) ALEJANDRA (obstructive sleep apnea): Plan: CPAP HS Admits noncompliance at home (10) Hepatitis C: Plan: Reports prior failed treatment per patient Following with Dr. Arevalo. No current treatment (11) Peripheral vascular disease: Plan: S/p ablation right leg 12/2022 (12) Obesity (BMI 30-39.9): Plan: BMI: 38 Lifestyle modifications recommended DVT Prophylaxis On Heparin for superficial thrombus RLE Full Code as per discussion with pt Follows with Dr Willam Fofana for routine care Pt was seen and care coordinated with Dr Pereira. See addendum I spent a total of 85 minutes reviewing notes, outpatient records, labs, medication, coordinating, documenting and providing care for this patient excluding time spent in the performance of separately billed services. History of Present Illness Chief Complaint: Right leg pain Primary Care Provider: Willam Fofana DO Patient is 62-year-old male with PMH HTN, MT, nonischemic cardiomyopathy, chronic hepatitis C, DM II, polyneuropathy, ALEJANDRA, history of IV drug abuse, current methamphetamine use, depression, BPH presented to ER with complaint right groin pain x 3 days. Patient is poor historian. History obtained from patient as well as inpatient and outpatient chart review and patient's outpatient pharmacy. Patient states is unable to see area so he isn't sure what it looks like. Area described as aching and states radiated down his thigh. Denies any injury or trauma. Chronic neuropathy and denies any changes in sensation. Denies noting any changes in discoloration or cyanosis of BLE. Patient states smokes methamphetamines almost daily, but reports hasn't used for past week. Reports last IV drug use was approximately 10 years ago. Reports hasn't been taking insulin for "past several days" and is unable to quantify. Does report when does take insulin, he hasn't been taking as prescribed. His home meter has been reading "high" for days, and prior to that he reports was in 300's. Patient admits hasn't been taking medications regularly. He states he "been sitting at home feeling sorry for himself" and hasn't been compliant with medications. Denies suicidal or homicidal ideations. Patient states thinks beginning of May started with productive cough, myalgias, sore throat, congestion, and had positive home COVID-19 test. He was prescribed Paxlovid on 05/12/23 and patient reports completed course. Denies any further symptoms and states sore throat, cough have resolved. Denies fever/chills, diaphoresis, N/V/D/C, CALIX, dizziness, syncope, neck pain, CP, SOB, orthopnea, palpitations,abdominal pain, extremity weakness, extremity edema, other rashes, urinary symptoms. Called patient's pharmacy [facility]. Bupropion XL 300 mg, Jardiance 25 mg, Levemir, metformin 750 mg, NovoLog filled in April and May 2023. Spironolactone last filled 08/2022. No record of furosemide 40mg, lisinopril 40mg, metoprolol succinate 50mg BID, sertraline 100mg daily being filled at [facility] pharmacies in the past 1 year. Patient states only uses [facility] pharmacy. Allergies Allergy/AdvReac Type Severity Reaction Status Date / Time permethrin Allergy Intermediate swelling Verified 12/26/22 02:58 shrimp Allergy Intermediate SWELLS Verified 12/26/22 02:58 sulfamethoxazole Allergy Unknown Unknown Verified 12/26/22 02:58 [From Bactrim] trimethoprim [From Bactrim] Allergy Unknown Unknown Verified 12/26/22 02:58 insulin glargine AdvReac Severe CHF Verified 12/26/22 02:58 [From Lantus U-100 Insulin] amoxicillin AdvReac Intermediate HIVES Verified 12/26/22 02:58 clavulanic acid AdvReac Intermediate HIVES Verified 12/26/22 02:58 Home Medications Medication Instructions Recorded Confirmed Type spironolactone 25 mg tablet 25 mg PO DAILY 01/04/19 05/26/23 History Chromium-Cinnamon 1 tab PO DAILY 08/01/22 05/26/23 History aspirin 81 mg tablet,delayed 81 mg PO DAILY 08/01/22 05/26/23 History release bupropion HCl 300 mg 24 hr tablet, 300 mg PO DAILY 08/01/22 05/26/23 History extended release empagliflozin 25 mg tablet 25 mg PO DAILY 08/01/22 05/26/23 History (Jardiance) insulin aspart U-100 100 unit/mL See Rx Instructions .Route .COMPLEX 08/01/22 05/26/23 History (3 mL) subcutaneous pen metformin 750 mg tablet,extended 1,500 mg PO DAILY 08/01/22 05/26/23 History release 24 hr nitroglycerin 0.4 mg sublingual 0.4 mg sublingual DIRECTED PRN 08/01/22 05/26/23 History tablet (Nitrostat) Chest Pain ascorbic acid (vitamin C) 500 mg 1,000 mg PO DAILY 09/21/22 05/26/23 History tablet (Vitamin C) insulin detemir U-100 100 unit/mL 80 unit subcut AMPM 09/21/22 05/26/23 History (3 mL) subcutaneous pen (Levemir FlexTouch U-100 Insulin) multivitamin with minerals 1 tab PO DAILY 09/21/22 05/26/23 History (Multiple Vitamin-Minerals tablet) Past Med/Surg History Medical History (Updated 05/26/23 @ 18:21 by Elizabeth Pérez PA-C) Accidental fall tripped over dog bed, hit back of head, checked in the ED poss concussion Anxiety Congestive heart failure Depression Diabetes mellitus, type 2 Dysequilibrium H/O drug abuse Hepatitis C Hyperglycemia Hypertension Nonischemic cardiomyopathy "prior EF 30% per Epic records. echo 02/2015- EF 54%" ALEJANDRA (obstructive sleep apnea) Surgical History History of cardiac cath 03/2015 @ [facility], no stents follows with Dr. Monet History of colonoscopy History of tooth extraction History of umbilical hernia repair x2 History of wisdom tooth extraction Family History Mother Family history of diabetes mellitus Father Family history of diabetes mellitus Other No family history of adverse response to anesthesia Social History Smoking Status: Never smoker Cigarettes Per Day: Says he occasionally will smoke a cigar.; Second Hand Exposure: Yes; Do You Dip or Chew Tobacco: No; Hx Alcohol Use: No Hx Substance Use: No Preferred Language: Mosotho Communication Ability: Effective Lettuce Cutter Required: No Beliefs That Will Affect Care: None marital status: Single Current Living Situation: Alone Current Living Situation Comment: lives alone Feels Safe at Home: Yes Safety Concerns: Feels Safe At This Time Assistive Devices: None Review of Systems Review of Systems: All systems reviewed & are unremarkable except as noted in HPI & below Physical Exam Physical Exam: General: no acute distress, obese Head: normocephalic, atraumatic Eyes: PERRL, EOM's intact, conjunctiva non-injected, anicteric; Face: +dry erythematous skin to nasal folds, labial folds and eyebrows ENT: normal inspection external ears, nose, mucous membranes dry Neck: supple, trachea midline Lungs: clear, no respiratory distress, no wheezing/rhonchi/rales CV: RRR, no murmur, no pretibial edema Abd: normal BS, soft, non-tender Ext: RLE: +right groin skin folds with erythema and appears to be satellite lesion, palpable posterior tibialis pulse, unable to palpate dorsalis pedis pulse, doppler +posterior tibialis, no cyanosis, leg and foot warm. +chronic brown skin discoloration bilateral lower legs. no calf tenderness Neuro: A&O x 3, no focal deficits noted, normal affect Skin: warm, dry Results & Data Results & Data Vital Signs (Past 12 Hours) Vital Signs Temp Pulse Pulse Resp BP BP Pulse Ox 05/26/23 13:02 93 H 05/26/23 12:58 97 H 18 158/85 H 98 05/26/23 09:42 36.6 C 66 18 169/84 H 98 O2 Del Method 05/26/23 13:02 05/26/23 12:58 Room Air 05/26/23 09:42 Room Air Laboratory Results Short CBC 05/26/23 Range/Units 12:01 WBC 12.76 H (4.8-10.8) K/ul Hgb 16.8 (14.0-18.0) g/dl Hct 49.9 (42.0-52.0) % Plt Count 299 (130-400) K/uL BMP 05/26/23 12:01 Sodium 123 L Potassium 5.5 H Chloride 92 L Carbon Dioxide 26 BUN 23 Creatinine 0.86 Glucose 671 H* Calcium 8.7 Liver Function 05/26/23 Range/Units 12:01 Total Bilirubin 0.3 (0.2-1.0) mg/dl AST 14 (13-39) U/L ALT 18 (7-52) U/L Alkaline Phosphatase 120 H (34-104) U/L Albumin 3.6 (3.4-5.0) gm/dl Urine 05/26/23 Range/Units 14:47 Urine Color Yellow Urine Appearance Clear (Clear) Urine pH 5.0 (4.5-7.5) Ur Specific [place] 1.029 (1.000-1.030) Urine Protein Negative (Negative) Urine Glucose (UA) 3+ H (Negative) Diagnostic Findings Venous Doppler Study 05/26/23 13:15 US venous doppler LE RT CLINICAL HISTORY: rle pain TECHNIQUE: Right lower extremity real-time compression venous ultrasound with Color Doppler imaging. Utilizing real-time ultrasonic imaging multiple real time high-resolution ultrasonic images with compression and noncompression maneuvers of the deep venous system in addition to color doppler imaging were performed from the common femoral vein through the proximal calf veins. COMPARISON: None available at the time of this dictation. FINDINGS/IMPRESSION: Currently there is normal compressibility of the deep venous system from the common femoral vein through the proximal calf veins. Superficial nonocclusive thrombus of the great saphenous vein extends from the proximal thigh to distal calf, approaching 4.8 cm from the junction with the deep venous system. ACT 112: Negative or not required by law. Electronically signed by: Daron Terrell M.D. 05/26/2023 3:42 PM Duplex Scan Lower Extremity Artery 05/26/23 13:18 US arterial duplex right lower extremity CLINICAL HISTORY: Unable to get right lower extremity distal pulses COMPARISON STUDY: None. FINDINGS: Normal biphasic to triphasic waveforms and velocities seen throughout the right lower extremity arterial system. No evidence for arterial occlusion. There is mild scattered calcified plaque identified. IMPRESSION: No significant stenosis or occlusion within the right lower extremity arterial system. ACT 112: Negative or not required by law. Electronically signed by: Nehemiah Borges M.D. 05/26/2023 3:53 PM Chest X-Ray 05/26/23 15:02 XR chest 1V portable HISTORY: Diabetic ketoacidosis. COMPARISON: Chest 05/18/2023. FINDINGS: The lungs are clear. Cardiac silhouette is normal in size. No pleural effusions. No pneumothorax. IMPRESSION: No acute process. ACT 112: Negative or not required by law. Electronically signed by: Nehemiah Borges M.D. 05/26/2023 3:34 PM Supervising Physician Co-Signing Physician Notes I have seen and examined the patient and have discussed the case with the provider above. I agree with the assessment and plan as stated. 62-year-old uncontrolled diabetic with morbid obesity presents with a worsening groin rash and pain in his groin as a result. This has been ongoing for several days. He does report a history of COVID and took a course of Paxlovid. Denies any current respiratory symptoms. Denies any fever. He does report persistent dry mouth, excessive urination and elevated glucose numbers when he checks it. He does report frequent methamphetamine use, the last use was 1 week ago. He denies any other recreational drug use or tobacco use. He denies alcohol use. He reports using methamphetamine since he was a young adult. He reports deliberate noncompliance with insulin. Work-up revealed hyperglycemia with a glucose close to 700. He has pseudohyponatremia with a corrected sodium of 132. He denies any other chest pain, trouble breathing, GI symptoms, urinary symptoms. On exam he appears disheveled but is in no acute distress. He is not exhibiting any increased work of breathing. He is mentating clearly. Lungs are clear to auscultation throughout and cardiac exam reveals S1-S2 heard with no evidence of murmurs gallops or rubs. There is no evidence of peripheral edema and he appears hypovolemic on exam. Mucous membranes are dry. No gross focal neurologic deficits. Lab work imaging EKG reviewed. Mild leukocytosis of 12, potassium 5.5, chloride 92, BUN 23, creatinine 0.86. Phosphorus low at 2.0, magnesium normal at 2.1. Liver panel otherwise unremarkable. No other source of infection present. In the ER an insulin bolus with drip was started and he was given 1.5 L of normal saline. Repeat glucose is 387 down from 585. Agree with frequent BMP, normal saline, electrolyte correction as needed and monitoring on telemetry. Patient was counseled on weight loss, avoidance of drugs, and compliance with insulin. Verbalized understanding. DO Randall (1) Hyperglycemia due to type 2 diabetes mellitus Diabetes mellitus press tender long goods insulin use: with fdc use Qualified Code(s): E11.65 - Type 2 diabetes mellitus with hyperglycemia; Z79.4 - director long term care (current) use of insulin
[2023-05-26 14:09] LABS: Lyme Ab IgG w/WB Rflx Negative (Negative); Lyme Ab IgM w/WB Rflx Negative (Negative)
[2023-05-26] MEDS ORDERED: SODIUM CHLORIDE 0.9% 1000ML 1,000 ML IV ONE (14:30)
[2023-05-26] MEDS ORDERED: METOPROLOL SUCC 50MG EXT REL TAB PO STA (14:30)
[2023-05-26 14:59] LABS: Appearance Urine Clear (Clear); Bilirubin Urine Negative (Negative); Blood Urine Negative (Negative); Color Urine Yellow; Glucose Urine UA 3+ (Negative); Ketones Urine Negative (Negative); Leukocyte Esterase Urine Negative (Negative); Nitrite Urine Negative (Negative); Protein Urine Negative (Negative); Specific Gravity Urine 1.029 (1.000-1.030); Urobilinogen Urine Negative (Negative)
--- NOTE | 2023-05-26 15:36 | XRay Report ---
XR chest 1V portable HISTORY: Diabetic ketoacidosis. COMPARISON: Chest 05/18/2023. FINDINGS: The lungs are clear. Cardiac silhouette is normal in size. No pleural effusions. No pneumot horax. IMPRESSION: No acute process. ACT 112: Negative or not required by law. Electronically signed by: Nehemiah Borges M.D. 05/26/2023 3:34 PM
[2023-05-26 15:43] LABS: Amphetamines+Metham, Urine Neg (Neg); Barbiturates, Urine Neg (Neg); Benzodiazepine, Urine Neg (Neg); Cocaine, Urine Neg (Neg); MDMA (Ecstacy), Urine Neg (Neg); Methadone, Urine Neg (Neg); Opiate, Urine Neg (Neg); Phencyclidine, Urine Neg (Neg)
--- NOTE | 2023-05-26 15:43 | Ultrasound Report ---
US venous doppler LE RT CLINICAL HISTORY: rle pain TECHNIQUE: Right lower extremity real-time compression venous ultrasound with Color Doppler imaging. Utilizing real-time ultrasonic imaging multiple real time high-resolution ultrasonic images with comp ression and noncompression maneuvers of the deep venous system in addition to color doppler imaging w ere performed from the common femoral vein through the proximal calf veins. COMPARISON: None available at the time of this dictation. FINDINGS/IMPRESSION: Currently there is normal compressibility of the deep venous system from the common femoral vein thro ugh the proximal calf veins. Superficial nonocclusive thrombus of the great saphenous vein extends f rom the proximal thigh to distal calf, approaching 4.8 cm from the junction with the deep venous syst em. ACT 112: Negative or not required by law. Electronically signed by: Daron Terrell M.D. 05/26/2023 3:42 PM
--- NOTE | 2023-05-26 15:55 | Ultrasound Report ---
US arterial duplex right lower extremity CLINICAL HISTORY: Unable to get right lower extremity distal pulses COMPARISON STUDY: None. FINDINGS: Normal biphasic to triphasic waveforms and velocities seen throughout the right lower extre mity arterial system. No evidence for arterial occlusion. There is mild scattered calcified plaque id entified. IMPRESSION: No significant stenosis or occlusion within the right lower extremity arterial system. ACT 112: Negative or not required by law. Electronically signed by: Nehemiah Borges M.D. 05/26/2023 3:53 PM
[2023-05-26 16:19] LABS: Magnesium 2.1 mg/dl (1.7-2.4)
[2023-05-26] MEDS ORDERED: POLYETHYLENE (MIRALAX) 17 GM PACK PO PRN (16:20)
[2023-05-26] MEDS ORDERED: PHARMACY GLYCEMIC MGMT CONSULT PRN (16:20)
[2023-05-26] MEDS ORDERED: SODIUM CHLORIDE 0.9% 1000ML 1,000 ML IV SCH (16:20)
[2023-05-26] MEDS ORDERED: ACETAMINOPHEN 325 MG TAB PO PRN (16:20)
[2023-05-26] MEDS ORDERED: ONDANSETRON INJ 2 MG/ML 2 ML VIAL IV PRN (16:20)
[2023-05-26] MEDS ORDERED: INSULIN ASPART PER UNIT CHARGE SC SCH (16:30)
[2023-05-26] MEDS ORDERED: Patient's HEIGHT Needed SCH (16:45)
[2023-05-26] MEDS ORDERED: SODIUM PHOSPHATE 3 MMOL/1 ML 5 ML VIAL IV ONE (17:09)
[2023-05-26 17:32] LABS: Base Excess VBG 1.2 mEq/L; HCO3 VBG 27 mmol/L; PCO2 VBG 44 mmHg (38-50); PO2 VBG 62 mmHg; pH VBG 7.39 (7.36-7.41)
[2023-05-26] MEDS: ASPIRIN 81 MG ECTAB PO SCH (17:51)
[2023-05-26] MEDS ORDERED: SODIUM PHOSPHATE 15 MMOL in SODIUM CHLORIDE 0.9% 250 ML IV ONE (18:00)
[2023-05-26 18:05] LABS: BUN Creatinine Ratio 30.2 (10-20); Calcium 8.2 mg/dl (8.6-10.3); Creatinine Clr Calc Pharmacy 162.6 ml/min; Est GFR (African American) 124.1 ml/min; Est GFR (Non-African American) 107.1 ml/min; Potassium 3.9 mmol/L (3.5-5.1)
[2023-05-26] MEDS ORDERED: NSS + 20MEQ KCL 20 MEQ/1,000 ML BAG IV SCH (18:15)
[2023-05-26] MEDS ORDERED: ENOXAPARIN INJ 40 MG/0.4 ML SYR SQ SCH (19:00)
[2023-05-26] MEDS ORDERED: Heparin IV Adult Wt-Based Standard *NO* Bolus Protocol IV SCH (19:33)
[2023-05-26] MEDS ORDERED: INSULIN HUMAN NPH SC SCH (20:00)
[2023-05-26] MEDS ORDERED: MICONAZOLE NITRATE 2% CR 30 GM TUBE EXT SCH (21:00)
[2023-05-26] MEDS: INSULIN ASPART PER UNIT CHARGE SC SCH (21:03)
[2023-05-26] MEDS: MICONAZOLE NITRATE POWDER 85 GM EXT SCH (21:04)
[2023-05-26 21:47] LABS: Calcium 8.5 mg/dl (8.6-10.3); Creatinine Clr Calc Pharmacy 150.7 ml/min; Est GFR (African American) 120.3 ml/min; Est GFR (Non-African American) 103.8 ml/min; Magnesium 2.2 mg/dl (1.7-2.4); Phosphorus 2.5 mg/dl (2.5-4.9); Potassium 4.6 mmol/L (3.5-5.1)
[2023-05-26 21:58] LABS: INR 0.9 (0.9-1.1); Partial Thromboplastin Time 27.7 Seconds (21.0-31.0); Prothrombin Time 10.1 Seconds (9.0-12.0)
[2023-05-26] MEDS: HEPARIN SODIUM/DEXTROSE 25,000 UNITS/500 ML BAG IV SCH (22:13)
[2023-05-27] MEDS: INSULIN ASPART PER UNIT CHARGE SC SCH ×6 (00:17→20:47)
[2023-05-27 01:10] LABS: BUN Creatinine Ratio 22.7 (10-20); Calcium 8.4 mg/dl (8.6-10.3); Creatinine Clr Calc Pharmacy 155.2 ml/min; Est GFR (African American) 121.8 ml/min; Est GFR (Non-African American) 105.1 ml/min; Magnesium 2.2 mg/dl (1.7-2.4); Phosphorus 2.2 mg/dl (2.5-4.9); Potassium 4.4 mmol/L (3.5-5.1)
[2023-05-27] MEDS: DEXTROSE 50% 50 ML SYRINGE IV PRN ×2 (03:27→04:31)
[2023-05-27 06:36] LABS: Estimated Average Glucose 301 mg/dl; Hemoglobin A1C 12.1 % (4.5-5.6)
[2023-05-27 07:29] LABS: Basophils # (auto) 0.11 K/uL (0-0.2); Eosinophils # (auto) 0.25 K/uL (0-0.50); Eosinophils % (auto) 2.2 %; Hematocrit (blood only) 47.8 % (42.0-52.0); Hemoglobin 16.2 g/dl (14.0-18.0); Immature Granulocytes # (auto) 0.12 K/uL (0.01-0.20); Immature Granulocytes % (auto) 1.1 %; Lymphocytes # (auto) 3.31 K/uL (1.2-3.4); Mean Corpuscular Hemoglobin 27.6 pg (25.0-34.0); Mean Corpuscular Hgb Conc 33.9 g/dL (32.0-36.0); Mean Corpuscular Volume 81.3 fL (80.0-100.0); Monocytes # (auto) 0.83 K/uL (0.11-0.59); Monocytes % (auto) 7.3 %; Neutrophils % (auto) 59.4 %; Platelet Count 277 K/uL (130-400); RDW Coefficient of Variation 13.9 % (11.5-14.5); RDW Standard Deviation 40.7 fL (36.4-46.3); Red Blood Count 5.88 M/uL (4.70-6.10); White Blood Count 11.42 K/ul (4.8-10.8)
[2023-05-27 07:55] LABS: BUN Creatinine Ratio 22.4 (10-20); Calcium 8.2 mg/dl (8.6-10.3); Creatinine Clr Calc Pharmacy 177.2 ml/min; Est GFR (African American) 128.4 ml/min; Est GFR (Non-African American) 110.8 ml/min; Magnesium 2.1 mg/dl (1.7-2.4); Phosphorus 2.4 mg/dl (2.5-4.9); Potassium 4.4 mmol/L (3.5-5.1)
[2023-05-27 08:17] LABS: Partial Thromboplastin Ratio 1.6
[2023-05-27] MEDS: METOPROLOL SUCC 50MG EXT REL TAB PO SCH (08:26)
[2023-05-27] MEDS: buPROPion XL 300 MG TABCR PO SCH (08:26)
[2023-05-27] MEDS: MICONAZOLE NITRATE POWDER 85 GM EXT SCH ×2 (08:26→20:50)
[2023-05-27] MEDS: ASPIRIN 81 MG ECTAB PO SCH (08:26)
[2023-05-27 09:26] LABS: BUN Creatinine Ratio 22.4 (10-20); Calcium 8.2 mg/dl (8.6-10.3); Creatinine Clr Calc Pharmacy 177.2 ml/min; Est GFR (African American) 128.4 ml/min; Est GFR (Non-African American) 110.8 ml/min; Phosphorus 2.2 mg/dl (2.5-4.9); Potassium 4.4 mmol/L (3.5-5.1)
--- NOTE | 2023-05-27 12:14 | Pharmacy Report ---
Pharmacy Glycemic Short Note 2 - Date of Service May 27, 2023 - Glycemic Short BSG Results (Last 24 hours): 05/26/23 05/26/23 05/26/23 12:01 14:37 16:22 Glucose 671 H* POC Glucose 585 H* 387 H* 05/26/23 05/26/23 05/26/23 17:19 17:27 18:22 Glucose 299 H POC Glucose 302 H* 245 H 05/26/23 05/26/23 05/26/23 19:09 20:24 20:55 Glucose 251 H POC Glucose 242 H 242 H 05/27/23 05/27/23 05/27/23 00:09 00:40 03:17 Glucose 198 H POC Glucose 364 H* 67 L* 05/27/23 05/27/23 05/27/23 03:47 04:27 04:50 Glucose POC Glucose 159 H 61 L* 109 H 05/27/23 05/27/23 05/27/23 06:20 06:20 07:27 Glucose 150 H Cancelled POC Glucose 145 H 05/27/23 05/27/23 08:42 11:00 Glucose 237 H POC Glucose 170 H OUTPATIENT ANTIDIABETIC REGIMEN: * Levemir 80 units SQ BID + Novolog 45 units with breakfast, 50 units with dinner * Metformin 1500 mg PO daily * Jardiance 25 mg PO Daily * HbA1C= 12.1% (05/26/23) ASSESSMENT: * Mr Botello is a 62 y/o M with a PMH of T2DM- insulin dependent who presents with hyperglycemia and superficial thrombus. * Patient's blood sugars on admission were elevated at > 600 mg/dL. He was initiated on an insulin infusion in the emergency room. This was discontinued on transfer to the floor. * Patient received 20 units of NPH @ 2. Blood sugar at midnight was 364 mg/dL and patient received 15 units of Novolog. Blood sugar at 0400 was low at 67 mg/dL. Patient was low again 1 hour later at 61 mg/dL. * Fasting BSG was 145 mg/dL. Held NPH this morning until dinnertime due to hypoglycemia. Lunch BSG was 170 mg/dL. * Based upon previous hospitalization, patient tolerates 40 units of NPH/day. Due to hypoglycemia, will start with NPH to 30 units (20 units with lunch and 10 units with dinner). * Loosen CF which may have led to hypoglycemia at 0400. PLAN FOR INPATIENT GLYCEMIC CONTROL: * Hold outpatient oral diabetes medications * Basal insulin * NPH 20 units SQ with lunch and 10 units with dinner * Bolus insulin * NovoLog per scale ACHS or Q6hrs while NPO * Goal Range: Low 110 mg/dL - High 140 mg/dL * Correction Factor: 20 mg/dL/unit * Nutritional / Prandial insulin per carb ratio of 1 unit per 4 grams CHO consumed
[2023-05-27] MEDS: HEPARIN SODIUM/DEXTROSE 25,000 UNITS/500 ML BAG IV SCH (12:22)
[2023-05-27] MEDS ORDERED: INSULIN HUMAN NPH SC ONE ×2 (12:30→17:30)
[2023-05-27 13:37] LABS: BUN Creatinine Ratio 23.2 (10-20); Calcium 8.1 mg/dl (8.6-10.3); Creatinine Clr Calc Pharmacy 183.6 ml/min; Est GFR (African American) 130.3 ml/min; Est GFR (Non-African American) 112.4 ml/min; Phosphorus 2.2 mg/dl (2.5-4.9); Potassium 4.5 mmol/L (3.5-5.1)
--- NOTE | 2023-05-27 14:55 | Hospitalist Progress Note ---
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 He is being managed for the following: (1) Hyperglycemia due to type 2 diabetes mellitus: Insulin Dependent DM II Patient noncompliant with home insulin. Home regimen Levemir 80 units BID, Novolog 45 units breakfast, 50 units dinner +sliding scale, metformin 1500mg daily & jardiance 25mg daily In ER found to be hyperglycemic with BS. K: 5.5, A. UA +ketones otherwise unremarkable, CXR without infiltrate In ER given 500ml NSS and insulin bolus and drip started A1c 12.1, glycemic pharmacy consult, senior health educator consult. Status post insulin drip, currently on subcutaneous insulin. Compliance with medication and diet recommended, counseled. PSEUDOHYPONATREMIA: Corrected Na of 132 for glucose of 671. Improved Dermatophyte infection: Bilateral groin. Topical antifungal powder. Keep the area clean and dry. (3) Superficial vein thrombosis: Plan: RLE Venous Doppler: Currently there is normal compressibility of the deep venous system from the common femoral vein through the proximal calf veins. Superfici al nonocclusive thrombus of the great saphenous vein extends from the proximal thigh to distal calf, approaching 4.8 cm from the junction with the deep venous system. RLE Arterial Doppler: No significant stenosis or occlusion within the right lower extremity arterial system. Heparin drip was started, need transition to DOAC upon discharge. (4) Hypertension: Plan: Previously reports was on lisinopril 40 mg daily, metoprolol succinate 50 mg twice daily however patient has not been taking for at least 1 year. Verified with patient's pharmacy has not been filled >1 year Restart metoprolol succinate 50 mg daily and monitor Monitor BPs, may need to consider adding additional agents (5) Nonischemic cardiomyopathy/Chronic diastolic CHF Plan: Prior history nonischemic cardiomyopathy. History [place] Echo 07/2022: EF: 55-60%, grade 2 diastolic dysfunction Continue aspirin, metoprolol succinate Previously prescribed Lasix however has not been filled for >1 year and patient has not been taking On spironolactone, will hold currently (6) COVID-19: Plan: Beginning of 05/2023 with sore throat, congestion, cough and reported positive home COVID-19 test Started Paxlovid 05/12/2023 and reports finishing course Reports resolution of symptoms CXR: No acute infiltrate SARS Cov 2 PCR negative at admission (7) Depression: Plan: Continue Wellbutrin Previously on sertraline however also has not been filled for years (8) H/O drug abuse: Plan: Smokes methamphetamines almost daily, but reports hasn't used for past week. Reports last IV drug use was approximately 10 years ago Urine drug screen negative Drug cessation recommended (9) ALEJANDRA (obstructive sleep apnea): Plan: CPAP HS Admits noncompliance at home (10) Hepatitis C: Plan: Reports prior failed treatment per patient Following with Dr. Arevalo. No current treatment (11) Peripheral vascular disease: Plan: S/p ablation right leg 12/2022 (12) Obesity (BMI 30-39.9): Plan: BMI: 38 Lifestyle modifications recommended DVT Prophylaxis On Heparin for superficial thrombus RLE Full Code Follows with Dr Willam Fofana for routine care Admission and Anticipated Discharge Date Admission Date: May 26, 2023 Subjective Patient seen and examined at bedside as a follow-up of hyperglycemia secondary to uncontrolled diabetes secondary to medication noncompliance along with other acute conditions. Patient was lying in bed, on room air, NAD, reports no new acute medical events overnight, reports eating okay and moving bowels okay. Patient denies any fever or chills or chest pain. Physical Exam Physical Exam: General: no acute distress, obese, unkempt. appears ill/frail/weak Head: normocephalic, atraumatic Eyes: PERRL, EOM's intact, conjunctiva non-injected, anicteric; Face: +dry erythematous skin to nasal folds, labial folds and eyebrows ENT: normal inspection external ears, nose, mucous membranes dry Neck: supple, trachea midline Lungs: clear, no respiratory distress, no wheezing/rhonchi/rales CV: RRR, no murmur, no pretibial edema Abd: normal BS, soft, non-tender Ext: RLE: +right groin skin folds with erythema and appears to be satellite lesion, palpable posterior tibialis pulse, unable to palpate dorsalis pedis pulse, doppler +posterior tibialis, no cyanosis, leg and foot warm. +chronic brown skin discoloration bilateral lower legs. no calf tenderness Neuro: A&O x 3, no focal deficits noted, normal affect Skin: warm, dry Results & Data Results & Data Vital Signs (Past 12 Hours) Vital Signs Temp Pulse Pulse Resp BP Pulse Ox O2 Del Method 05/27/23 11:52 36.1 C L 66 14 143/75 H 96 Room Air 05/27/23 07:00 74 05/27/23 07:43 36.7 C 71 18 143/77 H 91 Room Air 05/27/23 03:20 36.5 C 69 18 117/66 93 Room Air
[2023-05-27] MEDS: POT PHOSPHATE MONOBASIC W/ SOD TAB PO SCH ×2 (17:41→20:49)
[2023-05-28] MEDS: HEPARIN SODIUM/DEXTROSE 25,000 UNITS/500 ML BAG IV SCH ×2 (03:39→18:28)
[2023-05-28 07:21] LABS: Hematocrit (blood only) 47.4 % (42.0-52.0); Hemoglobin 16.1 g/dl (14.0-18.0); Mean Corpuscular Hemoglobin 27.3 pg (25.0-34.0); Mean Corpuscular Volume 80.5 fL (80.0-100.0); Mean Platelet Volume 9.4 fL (9.4-12.4); Platelet Count 263 K/uL (130-400); RDW Coefficient of Variation 14.2 % (11.5-14.5); RDW Standard Deviation 41.5 fL (36.4-46.3); Red Blood Count 5.89 M/uL (4.70-6.10); White Blood Count 11.39 K/ul (4.8-10.8)
[2023-05-28 07:45] LABS: Partial Thromboplastin Ratio 1.6
[2023-05-28] MEDS: INSULIN ASPART PER UNIT CHARGE SC SCH ×4 (08:17→19:37)
[2023-05-28] MEDS: INSULIN HUMAN NPH SC SCH (08:17)
[2023-05-28] MEDS: POT PHOSPHATE MONOBASIC W/ SOD TAB PO SCH ×4 (08:18→19:22)
[2023-05-28] MEDS: buPROPion XL 300 MG TABCR PO SCH (08:18)
[2023-05-28] MEDS: ASPIRIN 81 MG ECTAB PO SCH (08:18)
[2023-05-28] MEDS: METOPROLOL SUCC 50MG EXT REL TAB PO SCH (08:19)
[2023-05-28] MEDS: MICONAZOLE NITRATE POWDER 85 GM EXT SCH ×2 (08:19→19:23)
--- NOTE | 2023-05-28 12:35 | Pharmacy Report ---
Pharmacy Glycemic Short Note 2 - Date of Service May 28, 2023 - Glycemic Short BSG Results (Last 24 hours): 05/27/23 05/27/23 05/27/23 13:00 16:21 20:20 Glucose 253 H POC Glucose 167 H 265 H 05/28/23 05/28/23 07:12 11:11 Glucose POC Glucose 198 H 199 H OUTPATIENT ANTIDIABETIC REGIMEN: * Levemir 80 units SQ BID + Novolog 45 units with breakfast, 50 units with dinner * Metformin 1500 mg PO daily * Jardiance 25 mg PO Daily * HbA1C= 12.1% (05/26/23) ASSESSMENT: 05/28/23 * Patient's BSGs yesterday were [phone] mg/dL. * Patient received 84 units of insulin (30 units of basal and 43 units of bolus). * Fasting today is 198 mg/dL. * Will resume previous plan from other hospitalization that was effective. BACKGROUND * Mr Botello is a 62 y/o M with a PMH of T2DM- insulin dependent who presents with hyperglycemia and superficial thrombus. * Patient's blood sugars on admission were elevated at > 600 mg/dL. He was initiated on an insulin infusion in the emergency room. This was discontinued on transfer to the floor. * Patient received 20 units of NPH @ 2102. Blood sugar at midnight was 364 mg/dL and patient received 15 units of Novolog. Blood sugar at 0400 was low at 67 mg/dL. Patient was low again 1 hour later at 61 mg/dL. * Fasting BSG was 145 mg/dL. Held NPH this morning until dinnertime due to hypoglycemia. Lunch BSG was 170 mg/dL. * Based upon previous hospitalization, patient tolerates 40 units of NPH/day. Due to hypoglycemia, will start with NPH to 30 units (20 units with lunch and 10 units with dinner). * Loosen CF which may have led to hypoglycemia at 0400. PLAN FOR INPATIENT GLYCEMIC CONTROL: * Hold outpatient oral diabetes medications * Basal insulin * NPH 30 units SQ with daily and 10 units with dinner * Bolus insulin * NovoLog per scale ACHS or Q6hrs while NPO * Goal Range: Low 110 mg/dL - High 140 mg/dL * Correction Factor: 20 mg/dL/unit * Nutritional / Prandial insulin per carb ratio of 1 unit per 4 grams CHO consumed
[2023-05-28] MEDS ORDERED: INSULIN HUMAN NPH SC SCH (16:30)
--- NOTE | 2023-05-28 18:38 | Hospitalist Progress Note ---
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 He is being managed for the following: (1) Hyperglycemia due to type 2 diabetes mellitus: Insulin Dependent DM II Patient noncompliant with home insulin. Home regimen Levemir 80 units BID, Novolog 45 units breakfast, 50 units dinner +sliding scale, metformin 1500mg daily & jardiance 25mg daily In ER found to be hyperglycemic with BS. K: 5.5, A. UA +ketones otherwise unremarkable, CXR without infiltrate In ER given 500ml NSS and insulin bolus and drip started A1c 12.1, glycemic pharmacy consult, ent nurse consult. Status post insulin drip, currently on subcutaneous insulin. Compliance with medication and diet recommended, counseled. PSEUDOHYPONATREMIA: Corrected Na of 132 for glucose of 671. Improved Dermatophyte infection: Bilateral groin. Topical antifungal powder. Keep the area clean and dry. (3) Superficial vein thrombosis: Plan: RLE Venous Doppler: Currently there is normal compressibility of the deep venous system from the common femoral vein through the proximal calf veins. Superfici al nonocclusive thrombus of the great saphenous vein extends from the proximal thigh to distal calf, approaching 4.8 cm from the junction with the deep venous system. RLE Arterial Doppler: No significant stenosis or occlusion within the right lower extremity arterial system. Heparin drip was started, need transition to DOAC upon discharge. (4) Hypertension: Plan: Previously reports was on lisinopril 40 mg daily, metoprolol succinate 50 mg twice daily however patient has not been taking for at least 1 year. Verified with patient's pharmacy has not been filled >1 year Restart metoprolol succinate 50 mg daily and monitor Monitor BPs, may need to consider adding additional agents (5) Nonischemic cardiomyopathy/Chronic diastolic CHF Plan: Prior history nonischemic cardiomyopathy. History [place] Echo 07/2022: EF: 55-60%, grade 2 diastolic dysfunction Continue aspirin, metoprolol succinate Previously prescribed Lasix however has not been filled for >1 year and patient has not been taking On spironolactone, will hold currently (6) COVID-19: Plan: Beginning of 05/2023 with sore throat, congestion, cough and reported positive home COVID-19 test Started Paxlovid 05/12/2023 and reports finishing course Reports resolution of symptoms CXR: No acute infiltrate SARS Cov 2 PCR negative at admission (7) Depression: Plan: Continue Wellbutrin Previously on sertraline however also has not been filled for years (8) H/O drug abuse: Plan: Smokes methamphetamines almost daily, but reports hasn't used for past week. Reports last IV drug use was approximately 10 years ago Urine drug screen negative Drug cessation recommended (9) ALEJANDRA (obstructive sleep apnea): Plan: CPAP HS Admits noncompliance at home (10) Hepatitis C: Plan: Reports prior failed treatment per patient Following with Dr. Arevalo. No current treatment (11) Peripheral vascular disease: Plan: S/p ablation right leg 12/2022 (12) Obesity (BMI 30-39.9): Plan: BMI: 38 Lifestyle modifications recommended DVT Prophylaxis On Heparin for superficial thrombus RLE Full Code Follows with Dr Willam Fofana for routine care Admission and Anticipated Discharge Date Admission Date: May 26, 2023 Subjective Pt seen, would like to go home. Denies acute concerns otherwise. Review of Systems Review of Systems: All systems reviewed & are unremarkable except as noted in Subjective Physical Exam Physical Exam: General: Alert, oriented. Skin: inguinal rash noted covered in powder Psych: Appropriate mood and affect Neuro: No gross deficits HEENT: NC/AT CV: RRR, Normal s1, s2. No murmurs appreciated Resp: no increased effort of breathing. Abdomen: Soft, nontender, nondistended. Extremities: No edema in lower extremities bilaterally. Results & Data Results & Data Vital Signs (Past 12 Hours) Vital Signs Temp Pulse Pulse Resp BP Pulse Ox Pulse Ox 05/28/23 17:00 62 05/28/23 16:00 97 05/28/23 15:28 36.5 C 67 19 155/87 H 97 05/28/23 10:38 36.6 C 66 20 169/77 H 95 05/28/23 08:00 36.8 C 05/28/23 07:00 68 05/28/23 07:17 36.6 C 71 20 143/81 H 92 O2 Del Method O2 Del Method 05/28/23 17:00 05/28/23 16:00 Room Air 05/28/23 15:28 Room Air 05/28/23 10:38 Room Air 05/28/23 08:00 05/28/23 07:00 05/28/23 07:17 Room Air
[2023-05-29 07:52] LABS: BUN Creatinine Ratio 15.9 (10-20); Calcium 8.8 mg/dl (8.6-10.3); Creatinine Clr Calc Pharmacy 147.8 ml/min; Est GFR (African American) 119.6 ml/min; Est GFR (Non-African American) 103.2 ml/min; Phosphorus 2.4 mg/dl (2.5-4.9); Potassium 4.7 mmol/L (3.5-5.1)
[2023-05-29 08:18] LABS: Basophils # (auto) 0.11 K/uL (0-0.2); Basophils % (auto) 1.1 %; Eosinophils # (auto) 0.24 K/uL (0-0.50); Eosinophils % (auto) 2.3 %; Hemoglobin 17.2 g/dl (14.0-18.0); Immature Granulocytes # (auto) 0.14 K/uL (0.01-0.20); Immature Granulocytes % (auto) 1.4 %; Lymphocytes # (auto) 2.84 K/uL (1.2-3.4); Lymphocytes % (auto) 27.6 %; Mean Corpuscular Hemoglobin 27.3 pg (25.0-34.0); Mean Corpuscular Hgb Conc 33.7 g/dL (32.0-36.0); Mean Platelet Volume 9.6 fL (9.4-12.4); Monocytes # (auto) 0.76 K/uL (0.11-0.59); Monocytes % (auto) 7.4 %; Neutrophils # (auto) 6.19 K/uL (1.40-6.50); Neutrophils % (auto) 60.2 %; Platelet Count 271 K/uL (130-400); RDW Coefficient of Variation 15.2 % (11.5-14.5); RDW Standard Deviation 42.3 fL (36.4-46.3); White Blood Count 10.28 K/ul (4.8-10.8)
[2023-05-29] MEDS: HEPARIN SODIUM/DEXTROSE 25,000 UNITS/500 ML BAG IV SCH (08:52)
[2023-05-29] MEDS: INSULIN ASPART PER UNIT CHARGE SC SCH ×4 (08:52→21:27)
[2023-05-29] MEDS: INSULIN HUMAN NPH SC SCH (08:52)
[2023-05-29 09:02] LABS: Partial Thromboplastin Ratio 1.9
[2023-05-29 09:10] LABS: Partial Thromboplastin Time 53.2 Seconds (21.0-31.0)
[2023-05-29] MEDS: buPROPion XL 300 MG TABCR PO SCH (09:22)
[2023-05-29] MEDS: MICONAZOLE NITRATE POWDER 85 GM EXT SCH ×2 (09:22→21:25)
[2023-05-29] MEDS: POT PHOSPHATE MONOBASIC W/ SOD TAB PO SCH ×2 (09:22→12:52)
[2023-05-29] MEDS: ASPIRIN 81 MG ECTAB PO SCH (09:22)
[2023-05-29] MEDS: METOPROLOL SUCC 50MG EXT REL TAB PO SCH (09:22)
--- NOTE | 2023-05-29 16:57 | Hospitalist Progress Note ---
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 He is being managed for the following: Hyperglycemia due to type 2 diabetes mellitus: Insulin Dependent DM II Patient noncompliant with home insulin. Home regimen Levemir 80 units BID, Novolog 45 units breakfast, 50 units dinner +sliding scale, metformin 1500mg daily & jardiance 25mg daily In ER found to be hyperglycemic with BS. K: 5.5, A. UA +ketones otherwise unremarkable, CXR without infiltrate In ER given 500ml NSS and insulin bolus and drip started A1c 12.1, glycemic pharmacy consult, conservation educator consult. Status post insulin drip, currently on subcutaneous insulin. Compliance with medication and diet recommended, counseled. PSEUDOHYPONATREMIA Corrected Na of 132 for glucose of 671. Currently resolved. Dermatophyte infection Bilateral groin. Topical antifungal powder. Keep the area clean and dry. Superficial vein thrombosis: RLE Venous Doppler: Currently there is normal compressibility of the deep venous system from the common femoral vein through the proximal calf veins. Superficial nonocclusive thrombus of the great saphenous vein extends from the proximal thigh to distal calf, approaching 4.8 cm from the junction with the deep venous system. RLE Arterial Doppler: No significant stenosis or occlusion within the right lower extremity arterial system. Heparin drip was started, transitioned to Eliquis. Hypertension: Previously reports was on lisinopril 40 mg daily, metoprolol succinate 50 mg twice daily however patient has not been taking for at least 1 year. Verified with patient's pharmacy has not been filled >1 year Restart metoprolol succinate 50 mg daily and monitor Monitor BPs, may need to consider adding additional agents Nonischemic cardiomyopathy/Chronic diastolic CHF Prior history nonischemic cardiomyopathy. History [place] Echo 07/2022: EF: 55-60%, grade 2 diastolic dysfunction Continue aspirin, metoprolol succinate Previously prescribed Lasix however has not been filled for >1 year and patient has not been taking On spironolactone, will hold currently COVID-19 Beginning of 05/2023 with sore throat, congestion, cough and reported positive home COVID-19 test Started Paxlovid 05/12/2023 and reports finishing course Reports resolution of symptoms CXR: No acute infiltrate SARS Cov 2 PCR negative at admission Depression: Continue Wellbutrin Previously on sertraline however also has not been filled for years H/O drug abuse Smokes methamphetamines almost daily, but reports hasn't used for past week. Reports last IV drug use was approximately 10 years ago Urine drug screen negative Drug cessation recommended ALEJANDRA (obstructive sleep apnea): CPAP HS Admits noncompliance at home Hepatitis C: Reports prior failed treatment per patient Following with Dr. Arevalo. No current treatment Peripheral vascular disease: S/p ablation right leg 12/2022 Obesity (BMI 30-39.9) BMI: 38 Lifestyle modifications recommended DVT Prophylaxis Switched to Eliquis Full Code Follows with Dr Willam Fofana for routine care Admission and Anticipated Discharge Date Admission Date: May 26, 2023 Subjective Pt seen this AM. Denies acute concerns. Discussion about importance of taking home medications including Eliquis he will be discharged with. Agreeable. Review of Systems Review of Systems: All systems reviewed & are unremarkable except as noted in Subjective Physical Exam Physical Exam: General: Alert, oriented. Skin: inguinal rash noted Psych: Appropriate mood and affect Neuro: No gross deficits HEENT: NC/AT CV: RRR, Normal s1, s2. No murmurs appreciated Resp: no increased effort of breathing. Abdomen: Soft, nontender, nondistended. Extremities: No edema in lower extremities bilaterally. Results & Data Results & Data Vital Signs (Past 12 Hours) Vital Signs Temp Pulse Pulse Resp BP Pulse Ox Pulse Ox 05/29/23 16:00 97 05/29/23 15:40 74 05/29/23 15:29 36.5 C 70 20 142/80 H 92 05/29/23 11:58 36.5 C 68 20 158/69 H 92 05/29/23 07:00 59 L 05/29/23 07:07 36.5 C 71 18 137/86 95 O2 Del Method O2 Del Method 05/29/23 16:00 Room Air 05/29/23 15:40 05/29/23 15:29 Room Air 05/29/23 11:58 Room Air 05/29/23 07:00 05/29/23 07:07 Room Air
[2023-05-29] MEDS ORDERED: INSULIN HUMAN NPH SC SCH (21:00)
[2023-05-29] MEDS: APIXABAN 5 MG TABLET PO SCH (21:24)
[2023-05-30] MEDS ORDERED: INSULIN ASPART PER UNIT CHARGE SC ONE (02:00)
[2023-05-30 08:14] LABS: Basophils # (auto) 0.12 K/uL (0-0.2); Basophils % (auto) 1.1 %; Eosinophils # (auto) 0.24 K/uL (0-0.50); Eosinophils % (auto) 2.2 %; Hematocrit (blood only) 51.3 % (42.0-52.0); Hemoglobin 17.1 g/dl (14.0-18.0); Immature Granulocytes # (auto) 0.17 K/uL (0.01-0.20); Immature Granulocytes % (auto) 1.6 %; Lymphocytes # (auto) 2.74 K/uL (1.2-3.4); Lymphocytes % (auto) 25.3 %; Mean Corpuscular Hemoglobin 27.5 pg (25.0-34.0); Mean Corpuscular Hgb Conc 33.3 g/dL (32.0-36.0); Mean Corpuscular Volume 82.5 fL (80.0-100.0); Mean Platelet Volume 9.9 fL (9.4-12.4); Monocytes # (auto) 0.84 K/uL (0.11-0.59); Monocytes % (auto) 7.7 %; Neutrophils # (auto) 6.74 K/uL (1.40-6.50); Neutrophils % (auto) 62.1 %; Platelet Count 239 K/uL (130-400); RBC Morphology Unremarkable; RDW Coefficient of Variation 14.9 % (11.5-14.5); RDW Standard Deviation 42.8 fL (36.4-46.3); Red Blood Count 6.22 M/uL (4.70-6.10); White Blood Count 10.85 K/ul (4.8-10.8)
[2023-05-30] MEDS: INSULIN ASPART PER UNIT CHARGE SC SCH ×2 (08:20→11:54)
[2023-05-30] MEDS: INSULIN HUMAN NPH SC SCH (08:20)
[2023-05-30] MEDS: METOPROLOL SUCC 50MG EXT REL TAB PO SCH (08:21)
[2023-05-30 08:22] LABS: Anion Gap 5 (3-11); BUN Creatinine Ratio 15.2 (10-20); Blood Urea Nitrogen 10 mg/dl (6-23); Carbon Dioxide 29 mmol/L (21-32); Chloride 103 mmol/L (98-107); Creatinine Clr Calc Pharmacy 154.5 ml/min; Est GFR (African American) 121.8 ml/min; Est GFR (Non-African American) 105.1 ml/min; Glucose 178 mg/dl (70-99(Fasting)); Phosphorus 2.8 mg/dl (2.5-4.9); Sodium 137 mmol/L (136-145)
[2023-05-30] MEDS: ASPIRIN 81 MG ECTAB PO SCH (08:22)
[2023-05-30] MEDS: buPROPion XL 300 MG TABCR PO SCH (08:22)
[2023-05-30] MEDS: MICONAZOLE NITRATE POWDER 85 GM EXT SCH (08:22)
[2023-05-30] MEDS: APIXABAN 5 MG TABLET PO SCH (08:22)
--- NOTE | 2023-05-30 10:42 | Discharge Summary ---
Discharge Summary Date of Service May 30, 2023 Notes For Next Care Provider Chronic medical problem followup especially Diabetes management. Encourage medication compliance. Medication Changes From Visit Start taking home diabetic medications as pt was noncompliant. Eliquis 10mg BID for 6 more days, then 5mg BID. Metoprolol succinate 50mg daily was started. Miconazole cream for intertrigo Admission HPI Per Admitting Provider Patient is 62-year-old male with PMH HTN, VA, nonischemic cardiomyopathy, chronic hepatitis C, DM II, polyneuropathy, ALEJANDRA, history of IV drug abuse, current methamphetamine use, depression, BPH presented to ER with complaint right groin pain x 3 days. Patient is poor historian. History obtained from patient as well as inpatient and outpatient chart review and patient's outpatient pharmacy. Patient states is unable to see area so he isn't sure what it looks like. Area described as aching and states radiated down his thigh. Denies any injury or trauma. Chronic neuropathy and denies any changes in sensation. Denies noting any changes in discoloration or cyanosis of BLE. Patient states smokes methamphetamines almost daily, but reports hasn't used for past week. Reports last IV drug use was approximately 10 years ago. Reports hasn't been taking insulin for "past several days" and is unable to quantify. Does report when does take insulin, he hasn't been taking as prescribed. His home meter has been reading "high" for days, and prior to that he reports was in 300's. Patient admits hasn't been taking medications regularly. He states he "been sitting at home feeling sorry for himself" and hasn't been compliant with medications. Denies suicidal or homicidal ideations. Patient states thinks beginning of May started with productive cough, myalgias, sore throat, congestion, and had positive home COVID-19 test. He was prescribed Paxlovid on 05/12/23 and patient reports completed course. Denies any further symptoms and states sore throat, cough have resolved. Denies fever/chills, diaphoresis, N/V/D/C, CALIX, dizziness, syncope, neck pain, CP, SOB, orthopnea, palpitations,abdominal pain, extremity weakness, extremity edema, other rashes, urinary symptoms. Called patient's pharmacy [facility]. Bupropion XL 300 mg, Jardiance 25 mg, Levemir, metformin 750 mg, NovoLog filled in April and May 2023. Spironolactone last filled 08/2022. No record of furosemide 40mg, lisinopril 40mg, metoprolol succinate 50mg BID, sertraline 100mg daily being filled at [facility] in the past 1 year. Patient states only uses [facility] pharmacy. Admission Exam Per Admitting Provider General: no acute distress, obese Head: normocephalic, atraumatic Eyes: PERRL, EOM's intact, conjunctiva non-injected, anicteric; Face: +dry erythematous skin to nasal folds, labial folds and eyebrows ENT: normal inspection external ears, nose, mucous membranes dry Neck: supple, trachea midline Lungs: clear, no respiratory distress, no wheezing/rhonchi/rales CV: RRR, no murmur, no pretibial edema Abd: normal BS, soft, non-tender Ext: RLE: +right groin skin folds with erythema and appears to be satellite lesion, palpable posterior tibialis pulse, unable to palpate dorsalis pedis pulse, doppler +posterior tibialis, no cyanosis, leg and foot warm. +chronic brown skin discoloration bilateral lower legs. 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 He was managed for the following: Hyperglycemia due to type 2 diabetes mellitus: Insulin Dependent DM II Patient noncompliant with home insulin. Home regimen Levemir 80 units BID, Novolog 45 units breakfast, 50 units dinner +sliding scale, metformin 1500mg daily & jardiance 25mg daily In ER found to be hyperglycemic with BS. K: 5.5, A. UA +ketones otherwise unremarkable, CXR without infiltrate In ER given 500ml NSS and insulin bolus and drip started A1c 12.1, glycemic pharmacy consult, registered dental hygienist consult. Status post insulin drip, currently on subcutaneous insulin. Compliance with medication and diet recommended, counseled. On discharge, pt advised to re-start home medication regimen with pcp follow up. Consider referral to Diabetic MTM program. PSEUDOHYPONATREMIA Corrected Na of 132 for glucose of 671 on admission. Resolved on discharge. Dermatophyte infection Bilateral groin. Topical antifungal powder. Advised to keep the area clean and dry. Discharged with miconazole cream. Superficial vein thrombosis: RLE Venous Doppler: Currently there is normal compressibility of the deep venous system from the common femoral vein through the proximal calf veins. Superficial nonocclusive thrombus of the great saphenous vein extends from the proximal thigh to distal calf, approaching 4.8 cm from the junction with the deep venous system. RLE Arterial Doppler: No significant stenosis or occlusion within the right lower extremity arterial system. Heparin drip was started, transitioned to Eliquis PO. Discharged with instructions to take 6 more days of PO Eliquis 10mg BID, then 5mg BID Hypertension: Previously reports was on lisinopril 40 mg daily, metoprolol succinate 50 mg twice daily however patient has not been taking for at least 1 year. Verified with patient's pharmacy has not been filled >1 year Restart metoprolol succinate 50 mg daily and monitor Monitor BPs, may need to consider adding additional agents of increasing dose. Advised to also re-start home spironolactone Nonischemic cardiomyopathy/Chronic diastolic CHF Prior history nonischemic cardiomyopathy. History [facility] 07/2022: EF: 55-60%, grade 2 diastolic dysfunction Continue aspirin, metoprolol succinate Previously prescribed Lasix however has not been filled for >1 year and patient has not been taking On spironolactone, continue COVID-19 Beginning of 05/2023 with sore throat, congestion, cough and reported positive home COVID-19 test Started Paxlovid 05/12/2023 and reports finishing course Reports resolution of symptoms CXR: No acute infiltrate SARS Cov 2 PCR negative at admission Depression: Continue Wellbutrin Previously on sertraline however also has not been filled for years H/O drug abuse Smokes methamphetamines almost daily, but reports hasn't used for past week. Reports last IV drug use was approximately 10 years ago Urine drug screen negative Drug cessation recommended ALEJANDRA (obstructive sleep apnea): CPAP HS Admits noncompliance at home Encourage compliance Hepatitis C: Reports prior failed treatment per patient Following with Dr. Arevalo. No current treatment Peripheral vascular disease: S/p ablation right leg 12/2022 Obesity (BMI 30-39.9) BMI: 38 Lifestyle modifications recommended Discharge Exam General: Alert, oriented. Skin: intertrigo rash improved Psych: Appropriate mood and affect Neuro: No gross deficits HEENT: NC/AT CV: RRR, Normal s1, s2. No murmurs appreciated Resp: no increased effort of breathing. Abdomen: Soft, nontender, nondistended. Extremities: No edema in lower extremities bilaterally. Updated Medication List Medication Instructions Recorded Confirmed Type spironolactone 25 mg tablet 25 mg PO DAILY 01/04/19 05/26/23 History Chromium-Cinnamon 1 tab PO DAILY 08/01/22 05/26/23 History aspirin 81 mg tablet,delayed 81 mg PO DAILY 08/01/22 05/26/23 History release bupropion HCl 300 mg 24 hr tablet, 300 mg PO DAILY 08/01/22 05/26/23 History extended release empagliflozin 25 mg tablet 25 mg PO DAILY 08/01/22 05/26/23 History (Jardiance) insulin aspart U-100 100 unit/mL See Rx Instructions .Route .COMPLEX 08/01/22 05/26/23 History (3 mL) subcutaneous pen metformin 750 mg tablet,extended 1,500 mg PO DAILY 08/01/22 05/26/23 History release 24 hr nitroglycerin 0.4 mg sublingual 0.4 mg sublingual DIRECTED PRN 08/01/22 05/26/23 History tablet (Nitrostat) Chest Pain ascorbic acid (vitamin C) 500 mg 1,000 mg PO DAILY 09/21/22 05/26/23 History tablet (Vitamin C) insulin detemir U-100 100 unit/mL 80 unit subcut AMPM 09/21/22 05/26/23 History (3 mL) subcutaneous pen (Levemir FlexTouch U-100 Insulin) multivitamin with minerals 1 tab PO DAILY 09/21/22 05/26/23 History (Multiple Vitamin-Minerals tablet) apixaban 5 mg (74 tabs) tablets in See Rx Instructions .Route 05/29/23 Rx a dose pack (Spongecell) .COMPLEX #74 ea metoprolol succinate 50 mg 50 mg PO QAM #30 tabs 05/30/23 Rx tablet,extended release 24 hr miconazole nitrate 2 % topical 1 applic EXT BID #85 grams 05/30/23 Rx powder (Desenex) Hospital Stay Data Consultations 05/26/23 13:43 ED Decision to Admit Stat Diagnostic Imagining Performed 05/26/23 13:15 US venous doppler LE RT Stat 05/26/23 13:18 US arterial duplex LE RT Stat Discharge Instructions Given to Patient (Per Discharging Provider) You are being discharged home after treating your uncontrolled diabetes. We recommend taking your prescribed diabetic medications at home as you were not taking them before. No changes were made to them as your diabetes was not controlled because you were not taking your medications at all. Your registered dental hygienist also made some recommendations for discharge- you will be provided with these instructions. We ask that you follow up with your primary care provider for continued monitoring of your diabetes and keeping it under control. We also noted that you had a blood clot. We started you on a blood thinner to help with that. We prescribed you the medication Eliquis to go home with. A call to your pharmacy showed that it will cost you about $3 with your insurance. Please take the 10mg dose for 6 more days starting today (12 more doses of 10mg), and then continue with 5mg twice a day after that. Your prescription for Eliquis was sent yesterday when we thought you would be discharged so it says 10mg for 7 days instead of 6 days. However, you received one day of Eliquis doses while in the hospital so take the 10mg twice a day for 6 more days at home, then switch to the 5mg twice a day. Please follow up with your primary care provider about this as well. For your blood pressure, we started you on the medication metoprolol to take with your home spironolactone. Please discuss this further with your primary care provider who will continue to monitor your need for both medications. We are also discharging you with an antifungal powder to put in your groin area until the rash resolves. Total Time Total Time Spent Total Time Spent (In Minutes): >30 minutes
== END 2023-05-30 12:02 | disposition home or self-care (01) | DRG 868 ==
LOC: ED 09:29 → 2S 15:02 → SUATTDRO 15:02 → 2S 16:37
DX: I73.9 Peripheral vascular disease, unspecified; G47.33 Obstructive sleep apnea (adult) (pediatric); Z88.2 Allergy status to sulfonamides; Z86.16 Personal history of COVID-19; Z88.0 Allergy status to penicillin; Z79.51 Long term (current) use of inhaled steroids; Z88.8 Allergy status to other drugs, medicaments and biological substances; N40.0 Benign prostatic hyperplasia without lower urinary tract symptoms; F32.A Depression, unspecified; I82.811 Embolism and thrombosis of superficial veins of right lower extremity; I11.0 Hypertensive heart disease with heart failure; B37.9 Candidiasis, unspecified; Z68.38 Body mass index [BMI] 38.0-38.9, adult; Z79.899 Other long term (current) drug therapy; Z88.1 Allergy status to other antibiotic agents; Z91.199 Patient's noncompliance with other medical treatment and regimen due to unspecified reason; I50.32 Chronic diastolic (congestive) heart failure; Z79.82 Long term (current) use of aspirin; I25.2 Old myocardial infarction; Z79.84 Long term (current) use of oral hypoglycemic drugs; Z91.013 Allergy to seafood; B19.20 Unspecified viral hepatitis C without hepatic coma; E66.9 Obesity, unspecified; Z79.4 Long term (current) use of insulin; I42.8 Other cardiomyopathies

== ENCOUNTER 2023-10-14 09:48 | Observation (INO) ==
--- NOTE | 2023-10-14 09:58 | ED Triage Note ---
Date of Service October 14, 2023 Provider in Triage Author: Ty Ramsay History of Present Illness This patient was briefly evaluated while in triage. An abbreviated physical exam was performed. This patient is a 63-year-old Male who presents to the ED for evaluation of hyperglycemia. Presents via BLS for what was initially called as hypoglycemia per dexcom but medic notes hyperglycemia on arrival via fingerstick at 524. Physical Exam GENERAL: 63 year old male. In no acute distress. SKIN: No lesions or rashes. HEART: Regular rate and rhythm. LUNGS: Clear to auscultation. ABDOMEN: Bowel sounds normoactive. No guarding or rigidity. No tenderness of palpation. NEURO: Alert and oriented. No deficits. MUSCULOSKELETAL: No deformities to inspection of the extremities. PSYCH: Patient is pleasant and answers all questions appropriately. Initial orders for labs and / or imaging were placed and patient was placed in the waiting area until a bed is available. Please see further documentation for the full ED course.
[2023-10-14 10:57] LABS: Base Excess VBG 0.3 mEq/L; HCO3 VBG 28 mmol/L; Oxygen Saturation VBG < 60.0 %; PCO2 VBG 55 mmHg (38-50); PO2 VBG 29 mmHg; pH VBG 7.31 (7.36-7.41)
[2023-10-14] MEDS ORDERED: SODIUM CHLORIDE 0.9% 1,000 ML IV ONE ×2 (11:04→12:45)
[2023-10-14] MEDS ORDERED: NovoLIN-R INSULIN PER UNIT CHARGE IV STA ×2 (11:04→12:45)
[2023-10-14 11:08] LABS: Hematocrit (blood only) 43.9 % (42.0-52.0); Hemoglobin 13.9 g/dl (14.0-18.0); Immature Granulocytes # (auto) 0.16 K/uL (0.01-0.20); Immature Granulocytes % (auto) 1.6 %; Lymphocytes # (auto) 3.03 K/uL (1.20-3.40); Lymphocytes % (auto) 30.7 %; Mean Corpuscular Hemoglobin 27.4 pg (25.0-34.0); Mean Corpuscular Hgb Conc 31.7 g/dL (32.0-36.0); Mean Corpuscular Volume 86.6 fL (80.0-100.0); Mean Platelet Volume 10.3 fL (9.4-12.4); Monocytes # (auto) 0.95 K/uL (0.11-0.59); Monocytes % (auto) 9.6 %; Neutrophils # (auto) 5.33 K/uL (1.40-6.50); Neutrophils % (auto) 54.1 %; Platelet Count 246 K/uL (130-400); RDW Coefficient of Variation 12.8 % (11.5-14.5); RDW Standard Deviation 40.5 fL (36.4-46.3); Red Blood Count 5.07 M/uL (4.70-6.10); White Blood Count 9.87 K/ul (4.8-10.8)
[2023-10-14 11:14] LABS: Appearance Urine Clear (Clear); Bilirubin Urine Negative (Negative); Blood Urine Negative (Negative); Color Urine Yellow; Glucose Urine UA 3+ (Negative); Ketones Urine Negative (Negative); Leukocyte Esterase Urine Negative (Negative); Nitrite Urine Negative (Negative); Protein Urine Negative (Negative); Specific Gravity Urine 1.031 (1.000-1.030); Urobilinogen Urine Negative (Negative); pH Urine 5.5 (4.5-7.5)
--- NOTE | 2023-10-14 11:27 | Emergency Department Note ---
Impression & Plan Acute hyperglycemia, Acute dehydration ED Provider Note NAME: ELIN ELLISON AGE: 63 SEX: M : 1960 ARRIVES VIA: Ambulance INFORMANT: [Patient] ED PROVIDER(S): [Braulio Gamboa MD] CHIEF COMPLAINT: Hyperglycemia HISTORY OF PRESENT ILLNESS: The patient is a 63-year-old male who presents to the ER with a high blood sugar. The patient was in our ED 4 days ago for hyperglycemia and was discharged home once his sugar was better controlled. The patient states that this morning, his Dexcom monitor went off saying his sugar was low. Despite eating, it kept telling him his sugar was low. He felt fine. He called the ambulance and they checked his sugar and it was over 500. He presents for evaluation. There has been no cough or cold or congestion. No fever or chills. The patient states that he did change the monitor out a few days ago. The patient does have a fingerstick glucose monitor at home but did not check that today. PMHx/PSHx/Social Hx: See Below PHYSICAL EXAM: GENERAL: Patient is in no acute distress. HEENT: No acute trauma, normocephalic atraumatic, mucous membranes moist, no nasal congestion. NECK: No stridor, no adenopathy, no meningismus, trachea is midline. LUNGS: Clear to auscultation bilaterally, no wheeze, no rhonchi, breath sounds equal. HEART: Without murmurs gallops or rubs, regular rate and rhythm. ABDOMEN: Soft, nontender, no peritonitis. Obese. EXTREMITIES: No cyanosis, full range of motion of all the joints without pain or difficulty. Chronic lower extremity skin changes without findings of erythema or warmth NEUROLOGIC: Oriented x 3, no acute motor or sensory deficits, no focal weakness. SKIN: No jaundice, no diaphoresis. DIFFERENTIAL DIAGNOSIS: Hyperglycemia, dehydration, electrolyte imbalance, pneumonia, UTI, among others. EMERGENCY DEPARTMENT PROCEDURES: MEDICAL DECISION MAKING: There is no leukocytosis or concerning anemia. There is a normal platelet count. VBG did not show any significant acidosis. Sodium is low at 130, likely from his higher sugar. Sugar value was initially over 500. No renal failure. No concerning liver enzyme elevation. Urinalysis showed glucose, no infection. Chest x-ray did not show pneumonia, CHF or pneumothorax. On exam, there was no cellulitis or source for infection. The patient received 2 L of IV saline. He was given 20 units of IV insulin. The patient's blood sugar has decreased. This is his second visit in a few days for the same issue. I am concerned that he will develop DKA and be quite ill if things are not addressed sooner. Why his sugar is running so high is unclear. Today it sounds like his Dexcom monitor was malfunctioning. The cause for his high sugar the other day is not as clear. I did speak with the patient and case management, hospitalization is indicated. The on-call hospitalist was consulted. Prior/Outside records/notes reviewed: Discharge summary from 05/30/2023 discussing his admission for hyperglycemia. Imaging/x-ray results per my interpretation: Chest x-ray does not show pneumonia, pneumothorax or mediastinal widening. Chronic Medical/Social conditions affecting care: Diabetes Care/Management discussed with: Case management, the on-call hospitalist. Level of care consideration(s): After review of the information above and other included data: --I believe the patient requires escalation of care to admission DISPOSITION: Admission Past Med/Surg History Medical History ALEJANDRA (obstructive sleep apnea) Hyperglycemia Accidental fall tripped over dog bed, hit back of head, checked in the ED poss concussion Dysequilibrium Hepatitis C Diabetes mellitus, type 2 Depression Anxiety Hypertension Congestive heart failure Nonischemic cardiomyopathy "prior EF 30% per [facility] records. echo 02/2015- EF 54%" H/O drug abuse Surgical History History of colonoscopy History of umbilical hernia repair x2 History of tooth extraction History of wisdom tooth extraction History of cardiac cath 03/2015 @ [facility], no stents follows with Dr. 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 Beliefs That Will Affect Care: None marital status: Single Current Living Situation: Alone Current Living Situation Comment: lives alone Feels Safe at Home: Yes Safety Concerns: Feels Safe At This Time Assistive Devices: None Allergies Allergies Allergy/AdvReac Type Severity Reaction Status Date / Time permethrin Allergy Intermediate swelling Verified 10/10/23 11:42 shrimp Allergy Intermediate SWELLS Verified 10/10/23 11:42 sulfamethoxazole Allergy Unknown Unknown Verified 10/10/23 11:42 [From Bactrim] trimethoprim [From Bactrim] Allergy Unknown Unknown Verified 10/10/23 11:42 insulin glargine AdvReac Severe CHF Verified 10/10/23 11:42 [From Lantus U-100 Insulin] amoxicillin AdvReac Intermediate HIVES Verified 10/10/23 11:42 clavulanic acid AdvReac Intermediate HIVES Verified 10/10/23 11:42 Home Meds Home Medications Medication Instructions Recorded Confirmed spironolactone 25 mg tablet 25 mg PO DAILY 01/04/19 10/14/23 Chromium-Cinnamon 1 tab PO DAILY 08/01/22 10/14/23 aspirin 81 mg tablet,delayed 81 mg PO DAILY 08/01/22 10/14/23 release bupropion HCl 300 mg 24 hr tablet, 300 mg PO DAILY 08/01/22 10/14/23 extended release empagliflozin 25 mg tablet 25 mg PO DAILY 08/01/22 10/14/23 (Jardiance) insulin aspart U-100 100 unit/mL See Rx Instructions .Route .COMPLEX 08/01/22 10/14/23 (3 mL) subcutaneous pen metformin 750 mg tablet,extended 1,500 mg PO DAILY 08/01/22 10/14/23 release 24 hr nitroglycerin 0.4 mg sublingual 0.4 mg sublingual DIRECTED PRN 08/01/22 10/14/23 tablet (Nitrostat) Chest Pain ascorbic acid (vitamin C) 500 mg 1,000 mg PO DAILY 09/21/22 10/14/23 tablet (Vitamin C) multivitamin with minerals 1 tab PO DAILY 09/21/22 10/14/23 (Multiple Vitamin-Minerals tablet) furosemide 20 mg tablet (Lasix) 60 mg PO DAILY 10/10/23 10/14/23 lisinopril 20 mg tablet 20 mg PO QAM 10/10/23 10/14/23 sertraline 100 mg tablet 100 mg PO QAM 10/10/23 10/14/23 insulin glargine U-300 conc 300 90 unit subcut BID 10/14/23 10/14/23 unit/mL (3 mL) subcutaneous pen (Toujeo Max U-300 SoloStar) metoprolol succinate 50 mg 50 mg PO BID 10/14/23 10/14/23 tablet,extended release 24 hr tamsulosin 0.4 mg capsule 0.4 mg PO DAILY 10/14/23 10/14/23 Results & Data (ED) Vital Signs Vital Signs - 24 hr 10/14/23 09:54 10/14/23 11:12 10/14/23 11:25 Temperature 36.2 C L Temperature Source Temporal Artery Scan Pulse Rate 80 90 Pulse Rate [Apical] 82 Respiratory Rate 16 20 Respiratory Effort / Characteristics Non-Labored Non-Labored Spontaneous Respiratory Depth Normal Normal Respiratory Pattern Regular Blood Pressure 149/64 H Blood Pressure [Right Arm] 159/96 H Blood Pressure Mean 92 Blood Pressure Mean [Right Arm] 117 Blood Pressure Position [Right Arm] Lying Pulse Oximetry 97 97 Oxygen Delivery Method Room Air Room Air Sepsis Recent Fever Within 48 Hours No Sepsis New/Unexplained Change in Mental Status N/A Sepsis Action Taken by Nursing No Action Required Home Medications Current Medication List: was personally reviewed by me Laboratory Data Attestation: I reviewed the patient's lab results. 10/14/23 10:41 10/14/23 10:41 Lab Results 10/14/23 10/14/23 10/14/23 Range/Units 10:01 10:41 11:51 WBC 9.87 (4.8-10.8) K/ul RBC 5.07 (4.70-6.10) M/uL Hgb 13.9 L (14.0-18.0) g/dl Hct 43.9 (42.0-52.0) % MCV 86.6 (80.0-100.0) fL MCH 27.4 (25.0-34.0) pg MCHC 31.7 L (32.0-36.0) g/dL RDW Std Deviation 40.5 (36.4-46.3) fL RDW Coeff of Marc 12.8 (11.5-14.5) % Plt Count 246 (130-400) K/uL MPV 10.3 (9.4-12.4) fL Immature Gran % (Auto) 1.6 % Neut % (Auto) 54.1 % Lymph % (Auto) 30.7 % [place] % (Auto) 9.6 % Eos % (Auto) 3.0 % Baso % (Auto) 1.0 % Neut # (Auto) 5.33 (1.40-6.50) K/uL Lymph # (Auto) 3.03 (1.20-3.40) K/uL Winston # (Auto) 0.95 H (0.11-0.59) K/uL Eos # (Auto) 0.30 (0.00-0.50) K/uL Baso # (Auto) 0.10 (0.00-0.20) K/uL Immature Gran # (Auto) 0.16 (0.01-0.20) K/uL VBG pH 7.31 L (7.36-7.41) VBG pCO2 55 H (38-50) mmHg VBG pO2 29 mmHg VBG HCO3 28 mmol/L VBG O2 Saturation < 60.0 % VBG Base Excess 0.3 mEq/L Sodium 130 L (136-145) mmol/L Potassium 4.9 (3.5-5.1) mmol/L Chloride 99 (98-107) mmol/L Carbon Dioxide 28 (21-32) mmol/L Anion Gap 3 (3-11) BUN 25 H (6-23) mg/dl Creatinine 0.71 (0.6-1.4) mg/dl Est Cr Clr Drug Dosing 147.5 ml/min Est GFR ( Amer) 117.4 ml/min Est GFR (Non-Af Amer) 101.3 ml/min BUN/Creatinine Ratio 35.2 H (10-20) Glucose 587 H* (70-99(Fasting)) mg/dl POC Glucose 516 H* 496 H* (70-99) mg/dl Calcium 8.4 L (8.6-10.3) mg/dl Magnesium 2.0 (1.7-2.4) mg/dl Total Bilirubin 0.3 (0.2-1.0) mg/dl AST 24 (13-39) U/L ALT 29 (7-52) U/L Alkaline Phosphatase 88 (34-104) U/L Total Protein 6.1 (6.0-8.3) gm/dl Albumin 3.3 L (3.4-5.0) gm/dl Globulin 2.8 (2.5-4.0) gm/dl Albumin/Globulin Ratio 1.2 (0.9-2) Urine Color Yellow Urine Appearance Clear (Clear) Urine pH 5.5 (4.5-7.5) Ur Specific [place] 1.031 H (1.000-1.030) Urine Protein Negative (Negative) Urine Glucose (UA) 3+ H (Negative) Urine Ketones Negative (Negative) Urine Blood Negative (Negative) Urine Nitrite Negative (Negative) Urine Bilirubin Negative (Negative) Urine Urobilinogen Negative (Negative) Ur Leukocyte Esterase Negative (Negative) Urine Opiates Screen Pos H (Neg) Ur Methadone, Qual Neg (Neg) Urine Barbiturates Neg (Neg) Ur Phencyclidine (PCP) Neg (Neg) U Amphetamin/Meth Scrn Neg (Neg) MDMA (Ecstasy) Screen Neg (Neg) U Benzodiazepines Scrn Neg (Neg) Ur Cocaine Metabolite Neg (Neg) U Marijuana (THC) Screen Neg (Neg) 10/14/23 10/14/23 Range/Units 12:23 13:18 WBC (4.8-10.8) K/ul RBC (4.70-6.10) M/uL Hgb (14.0-18.0) g/dl Hct (42.0-52.0) % MCV (80.0-100.0) fL MCH (25.0-34.0) pg MCHC (32.0-36.0) g/dL RDW Std Deviation (36.4-46.3) fL RDW Coeff of Marc (11.5-14.5) % Plt Count (130-400) K/uL MPV (9.4-12.4) fL Immature Gran % (Auto) % Neut % (Auto) % Lymph % (Auto) % [place] % (Auto) % Eos % (Auto) % Baso % (Auto) % Neut # (Auto) (1.40-6.50) K/uL Lymph # (Auto) (1.20-3.40) K/uL [place] # (Auto) (0.11-0.59) K/uL Eos # (Auto) (0.00-0.50) K/uL Baso # (Auto) (0.00-0.20) K/uL Immature Gran # (Auto) (0.01-0.20) K/uL VBG pH (7.36-7.41) VBG pCO2 (38-50) mmHg VBG pO2 mmHg VBG HCO3 mmol/L VBG O2 Saturation % VBG Base Excess mEq/L Sodium (136-145) mmol/L Potassium (3.5-5.1) mmol/L Chloride (98-107) mmol/L Carbon Dioxide (21-32) mmol/L Anion Gap (3-11) BUN (6-23) mg/dl Creatinine (0.6-1.4) mg/dl Est Cr Clr Drug Dosing ml/min Est GFR ( Amer) ml/min Est GFR (Non-Af Amer) ml/min BUN/Creatinine Ratio (10-20) Glucose (70-99(Fasting)) mg/dl POC Glucose 412 H* 418 H* (70-99) mg/dl Calcium (8.6-10.3) mg/dl Magnesium (1.7-2.4) mg/dl Total Bilirubin (0.2-1.0) mg/dl AST (13-39) U/L ALT (7-52) U/L Alkaline Phosphatase (34-104) U/L Total Protein (6.0-8.3) gm/dl Albumin (3.4-5.0) gm/dl Globulin (2.5-4.0) gm/dl Albumin/Globulin Ratio (0.9-2) Urine Color Urine Appearance (Clear) Urine pH (4.5-7.5) Ur Specific [place] (1.000-1.030) Urine Protein (Negative) Urine Glucose (UA) (Negative) Urine Ketones (Negative) Urine Blood (Negative) Urine Nitrite (Negative) Urine Bilirubin (Negative) Urine Urobilinogen (Negative) Ur Leukocyte Esterase (Negative) Urine Opiates Screen (Neg) Ur Methadone, Qual (Neg) Urine Barbiturates (Neg) Ur Phencyclidine (PCP) (Neg) U Amphetamin/Meth Scrn (Neg) MDMA (Ecstasy) Screen (Neg) U Benzodiazepines Scrn (Neg) Ur Cocaine Metabolite (Neg) U Marijuana (THC) Screen (Neg) Administered Medications Bupropion HCl (Bupropion Xl 300 Mg Tabcr) 300 mg PO DAILY [facility] Stop: 11/13/23 15:08 Last Admin: 10/14/23 16:58 Dose: 300 mg Documented By: OZZY Insulin Aspart (Insulin Aspart Per Unit Charge) 0 units SC ACHS [facility]; Protocol Stop: 11/13/23 16:29 Last Admin: 10/14/23 17:33 Dose: 20 units Documented By: OZZY Co-signed By: TYRELL Insulin Human NPH (Insulin Human Nph) 10 units SC DAILY@1700 [facility]; Protocol Stop: 11/13/23 16:59 Last Admin: 10/14/23 17:33 Dose: 10 units Documented By: OZZY Co-signed By: TYRELL Sertraline HCl (Sertraline Hcl 100 Mg Tablet) [facility] [place] Stop: 11/13/23 15:08 Last Admin: 10/14/23 16:58 Dose: 100 mg Documented By: OZZY Discontinued Medications Sodium Chloride (Nss) 1,000 mls @ 999 mls/hr IV .Q1H1M ONE Stop: 10/14/23 12:04 Last Infusion: 10/14/23 14:33 Dose: Infused Documented By: Admin: 10/14/23 11:19 Dose: 999 mls/hr Documented By: CRISTOPHER Sodium Chloride (Nss) 1,000 mls @ 999 mls/hr IV .Q1H1M ONE Stop: 10/14/23 13:45 Last Infusion: 10/14/23 14:33 Dose: Infused Documented By: Admin: 10/14/23 13:28 Dose: 999 mls/hr Documented By: CRISTOPHER Insulin Human Regular (Novolin-R Insulin Per Unit Charge) 10 units IV NOW STA Stop: 10/14/23 11:05 Last Admin: 10/14/23 11:18 Dose: 10 units Documented By: CRISTOPHER Co-signed By: NELL Insulin Human Regular (Novolin-R Insulin Per Unit Charge) 10 units IV NOW STA Stop: 10/14/23 12:46 Last Admin: 10/14/23 13:24 Dose: 10 units Documented By: CRISTOPHER Co-signed By: CC Imaging Data Radiologist's Impression: Chest X-Ray 10/14/23 11:04 XR chest 1V portable HISTORY: 63 years-old Male poss infection acute shortness of breath COMPARISON: 10/10/2023 TECHNIQUE: AP view of the chest FINDINGS: Cardiac silhouette is enlarged. Mild right hemidiaphragmatic elevation. No pneumothorax, or pleural effusion. Mild bibasilar opacities favor atelectasis. Bones appear grossly intact. Limited exam secondary to technique and patient body habitus. IMPRESSION: Cardiomegaly without acute process. ACT 112: Negative or not required by law. The above report was generated using voice recognition software. It may contain grammatical, syntax or spelling errors. Electronically signed by: Juan Gonzalez M.D. 10/14/2023 11:24 AM Discharge Plan Visit Data Chief Complaint: Hyperglycemia ED Provider: Braulio Gamboa Discharge Problem: Acute hyperglycemia, Acute dehydration Patient Disposition: Admitted As Inpatient Condition: Fair Discharge Instructions Interventions: ED Discharge Assessment Last Done: 10/14/23 14:53
--- NOTE | 2023-10-14 11:27 | XRay Report ---
XR chest 1V portable HISTORY: 63 years-old Male poss infection acute shortness of breath COMPARISON: 10/10/2023 TECHNIQUE: AP view of the chest FINDINGS: Cardiac silhouette is enlarged. Mild right hemidiaphragmatic elevation. No pneumothorax, or pleural e ffusion. Mild bibasilar opacities favor atelectasis. Bones appear grossly intact. Limited exam second ted to technique and patient body habitus. IMPRESSION: Cardiomegaly without acute process. ACT 112: Negative or not required by law. The above report was generated using voice recognition software. It may contain grammatical, syntax o r spelling errors. Electronically signed by: Juan Gonzalez M.D. 10/14/2023 11:24 AM
[2023-10-14 11:30] LABS: Albumin Globulin Ratio 1.2 (0.9-2); Albumin Level 3.3 gm/dl (3.4-5.0); BUN Creatinine Ratio 35.2 (10-20); Bilirubin,Total 0.3 mg/dl (0.2-1.0); Calcium 8.4 mg/dl (8.6-10.3); Creatinine Clr Calc Pharmacy 147.5 ml/min; Est GFR (African American) 117.4 ml/min; Est GFR (Non-African American) 101.3 ml/min; Globulin 2.8 gm/dl (2.5-4.0); Potassium 4.9 mmol/L (3.5-5.1); Total Protein 6.1 gm/dl (6.0-8.3)
--- NOTE | 2023-10-14 14:16 | History & Physical Report ---
Date of Service October 14, 2023 Assessment & Plan (1) Hyperglycemia due to type 2 diabetes mellitus: Plan: This is a 63 y/o male with history of HTN, [place], nonischemic cardiomyopathy, chronic hepatitis C, insulin-requiring DM2, polyneuropathy, ALEJANDRA, history of IV d rug abuse, depression, BPH and medical noncompliance who presents to the ED today with high blood sugar. Pt reports that his DexCom was malfunctioning and reading as low blood sugar so he ate a large amount of carbs this morning including milk, cereal, bread and Nutella. Of note, he was seen in the ED four days ago for hyperglycemia but he admits that this was due to dietary indiscretion on his part for no specific reason, although ED notes from that day mention pt using eating as a coping method while he tries to stop using meth. Review of outpatient records confirmed his current diabetic regimen with Toujeo increased from 80 units BID to 90 units BID within the last month. - Observe overnight in PCU to get blood sugar under control before discharge - will need close outpatient f/u with PCP - Consult glycemic pharmacist for assistance with management overnight - pt has an outpatient appt with glycemic pharmacist next week - Diabetic diet, BSG ACHS - Check UDS due to hx of meth use - Labs in the AM - CBC, BMP (2) Noncompliance: (3) Dietary indiscretion: (4) Morbid obesity: (5) Hypertension: Plan: chronic, stable - continue home regimen Plan Continue other home medications as appropriate. Pt seen and reviewed with collaborating physician, Dr. Pereira. Plan of care discussed and as outlined above. Code Status: Full code DVT Prophylaxis: Ash Sanders PA-C History of Present Illness Chief Complaint: high sugar Primary Care Provider: Willam Fofana DO This is a 63 y/o male with history of HTN, [place], nonischemic cardiomyopathy, chronic hepatitis C, insulin-requiring DM2, polyneuropathy, ALEJANDRA, history of IV drug abuse, depression, BPH and medical noncompliance who presents to the ED today with high blood sugar. Pt reports that he changed his DexCom within the last few days. This morning, it started alarming around 4-5 am for low blood sugar (68) so he ate some milk and cereal. He denied have any symptoms of hypoglycemia at the time. However, it continued to alarm low with a sugar of 50 so he ate half a loaf of bread with Nutella. When the monitor continued to alarm with eating this food, he became anxious and called 911 even though he remained asymptomatic. When EMS arrived and checked his sugar, it was over 500. Pt does not typically check his sugar via fingerstick at home and did not think to do so this morning. In the ED today, he has received 20 units of IV regular insulin and 2L of IVF (NSS) but sugar remains >400. Pt was seen in the ED for hyperglycemia on 10/10, which he admits was due to noncompliance as he ate a large amount of high-carb foods over the weekend. He reports intermittent issues with episodes of uncontrolled overeating. He is following with [facility] glycemic pharmacist with his next appt scheduled for 10/19. His current regiment is Toujeo 90 units BID, Novolog 45 units with breakfast, 50 units with dinner unless his sugar is over 300, in which case he uses 60 units. He has not taken any insulin since yesterday other than that given to him in the ED. Allergies Allergy/AdvReac Type Severity Reaction Status Date / Time permethrin Allergy Intermediate swelling Verified 10/10/23 11:42 shrimp Allergy Intermediate SWELLS Verified 10/10/23 11:42 sulfamethoxazole Allergy Unknown Unknown Verified 10/10/23 11:42 [From Bactrim] trimethoprim [From Bactrim] Allergy Unknown Unknown Verified 10/10/23 11:42 insulin glargine AdvReac Severe CHF Verified 10/10/23 11:42 [From Lantus U-100 Insulin] amoxicillin AdvReac Intermediate HIVES Verified 10/10/23 11:42 clavulanic acid AdvReac Intermediate HIVES Verified 10/10/23 11:42 Home Medications Medication Instructions Recorded Confirmed Type spironolactone 25 mg tablet 25 mg PO DAILY 01/04/19 10/14/23 History Chromium-Cinnamon 1 tab PO DAILY 08/01/22 10/14/23 History aspirin 81 mg tablet,delayed 81 mg PO DAILY 08/01/22 10/14/23 History release bupropion HCl 300 mg 24 hr tablet, 300 mg PO DAILY 08/01/22 10/14/23 History extended release empagliflozin 25 mg tablet 25 mg PO DAILY 08/01/22 10/14/23 History (Jardiance) insulin aspart U-100 100 unit/mL See Rx Instructions .Route .COMPLEX 08/01/22 10/14/23 History (3 mL) subcutaneous pen metformin 750 mg tablet,extended 1,500 mg PO DAILY 08/01/22 10/14/23 History release 24 hr nitroglycerin 0.4 mg sublingual 0.4 mg sublingual DIRECTED PRN 08/01/22 10/14/23 History tablet (Nitrostat) Chest Pain ascorbic acid (vitamin C) 500 mg 1,000 mg PO DAILY 09/21/22 10/14/23 History tablet (Vitamin C) multivitamin with minerals 1 tab PO DAILY 09/21/22 10/14/23 History (Multiple Vitamin-Minerals tablet) furosemide 20 mg tablet (Lasix) 60 mg PO DAILY 10/10/23 10/14/23 History lisinopril 20 mg tablet 20 mg PO QAM 10/10/23 10/14/23 History sertraline 100 mg tablet 100 mg PO QAM 10/10/23 10/14/23 History insulin glargine U-300 conc 300 90 unit subcut BID 10/14/23 10/14/23 History unit/mL (3 mL) subcutaneous pen (Toujeo Max U-300 SoloStar) metoprolol succinate 50 mg 50 mg PO BID 10/14/23 10/14/23 History tablet,extended release 24 hr tamsulosin 0.4 mg capsule 0.4 mg PO DAILY 10/14/23 10/14/23 History Past Med/Surg History Medical History ALEJANDRA (obstructive sleep apnea) Hyperglycemia Accidental fall tripped over dog bed, hit back of head, checked in the ED poss concussion Dysequilibrium Hepatitis C Diabetes mellitus, type 2 Depression Anxiety Hypertension Congestive heart failure Nonischemic cardiomyopathy "prior EF 30% per Epic records. echo 02/2015- EF 54%" H/O drug abuse Surgical History History of colonoscopy History of umbilical hernia repair x2 History of tooth extraction History of wisdom tooth extraction History of cardiac cath 03/2015 @ [facility], no stents follows with Dr. Monet Family History Mother Family history of diabetes mellitus Father Family history of diabetes mellitus Other No family history of adverse response to anesthesia Social History (Updated 10/14/23 @ 14:38 by Leana Sanders PA-C) Smoking Status: Never smoker Tobacco Type: Cigarettes Cigarettes Per Day: Says he occasionally will smoke a cigar.; Second Hand Exposure: Yes; Do You Dip or Chew Tobacco: No; Hx Alcohol Use: No Hx Substance Use: Yes Non-Prescribed Medications: Methamphetamines Last Used Substance Other:: last used meth couple weeks ago Preferred Language: Kyrgyz Communication Ability: Effective 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 [employer] Required: No Beliefs That Will Affect Care: None marital status: Single Current Living Situation: Alone Current Living Situation Comment: lives alone Feels Safe at Home: Yes Safety Concerns: Feels Safe At This Time Assistive Devices: None Review of Systems Review of Systems: All systems reviewed & are unremarkable except as noted in HPI & below Constitutional: no fever and no chills Ear, Nose, Mouth, Throat: no nasal congestion, no nasal discharge and no sore throat Respiratory: no cough and no dyspnea Cardiovascular: no chest pain, no palpitations and no syncope Gastrointestinal: no abdominal pain, no nausea and no vomiting Genitourinary: no dysuria or no hematuria Musculoskeletal: no back pain and no neck pain Integumentary: no yellowing of the skin Neurologic: no dizziness and no headache(s) Psychiatric: + anxiety Physical Exam Physical Exam: General: awake, alert, NAD, anxious mood HEENT: no scleral icterus, moist oral mucosa Neck: supple, trachea midline Heart: RRR Lungs: CTA bilaterally, no W/R/R Abdomen: soft, obese, NT, +BS Extremities: no pedal edema Skin: no jaundice Neurologic: no focal deficits, no dysarthria, no confusion, Ox3 Results & Data Results & Data Vital Signs (Past 12 Hours) Vital Signs Temp Pulse Pulse Resp BP BP Pulse Ox 10/14/23 13:39 88 20 139/99 98 10/14/23 11:25 82 20 159/96 H 97 10/14/23 11:12 90 10/14/23 09:54 36.2 C L 80 16 149/64 H 97 O2 Del Method 10/14/23 13:39 Room Air 10/14/23 11:25 Room Air 10/14/23 11:12 10/14/23 09:54 Room Air Laboratory Results Laboratory Results - last 24 hr 10/14/23 10/14/23 10/14/23 10:01 10:41 11:51 WBC 9.87 RBC 5.07 Hgb 13.9 L Hct 43.9 MCV 86.6 MCH 27.4 MCHC 31.7 L RDW Std Deviation 40.5 RDW Coeff of Marc 12.8 Plt Count 246 MPV 10.3 Immature Gran % (Auto) 1.6 Neut % (Auto) 54.1 Lymph % (Auto) 30.7 [place] % (Auto) 9.6 Eos % (Auto) 3.0 Baso % (Auto) 1.0 Neut # (Auto) 5.33 Lymph # (Auto) 3.03 [place] # (Auto) 0.95 H Eos # (Auto) 0.30 Baso # (Auto) 0.10 Immature Gran # (Auto) 0.16 VBG pH 7.31 L VBG pCO2 55 H VBG pO2 29 VBG HCO3 28 VBG O2 Saturation < 60.0 VBG Base Excess 0.3 Sodium 130 L Potassium 4.9 Chloride 99 Carbon Dioxide 28 Anion Gap 3 BUN 25 H Creatinine 0.71 Est Cr Clr Drug Dosing 147.5 Est GFR ( Amer) 117.4 Est GFR (Non-Af Amer) 101.3 BUN/Creatinine Ratio 35.2 H Glucose 587 H* POC Glucose 516 H* 496 H* Calcium 8.4 L Magnesium 2.0 Total Bilirubin 0.3 AST 24 ALT 29 Alkaline Phosphatase 88 Total Protein 6.1 Albumin 3.3 L Globulin 2.8 Albumin/Globulin Ratio 1.2 Urine Color Yellow Urine Appearance Clear Urine pH 5.5 Ur Specific [place] 1.031 H Urine Protein Negative Urine Glucose (UA) 3+ H Urine Ketones Negative Urine Blood Negative Urine Nitrite Negative Urine Bilirubin Negative Urine Urobilinogen Negative Ur Leukocyte Esterase Negative 10/14/23 10/14/23 10/14/23 12:23 13:18 14:30 WBC RBC Hgb Hct MCV MCH MCHC RDW Std Deviation RDW Coeff of Marc Plt Count MPV Immature Gran % (Auto) Neut % (Auto) Lymph % (Auto) [place] % (Auto) Eos % (Auto) Baso % (Auto) Neut # (Auto) Lymph # (Auto) [place] # (Auto) Eos # (Auto) Baso # (Auto) Immature Gran # (Auto) VBG pH VBG pCO2 VBG pO2 VBG HCO3 VBG O2 Saturation VBG Base Excess Sodium Potassium Chloride Carbon Dioxide Anion Gap BUN Creatinine Est Cr Clr Drug Dosing Est GFR ( Amer) Est GFR (Non-Af Amer) BUN/Creatinine Ratio Glucose POC Glucose 412 H* 418 H* 252 H Calcium Magnesium Total Bilirubin AST ALT Alkaline Phosphatase Total Protein Albumin Globulin Albumin/Globulin Ratio Urine Color Urine Appearance Urine pH Ur Specific [place] Urine Protein Urine Glucose (UA) Urine Ketones Urine Blood Urine Nitrite Urine Bilirubin Urine Urobilinogen Ur Leukocyte Esterase Diagnostic Findings Chest X-Ray 10/14/23 11:04 XR chest 1V portable HISTORY: 63 years-old Male poss infection acute shortness of breath COMPARISON: 10/10/2023 TECHNIQUE: AP view of the chest FINDINGS: Cardiac silhouette is enlarged. Mild right hemidiaphragmatic elevation. No pneumothorax, or pleural effusion. Mild bibasilar opacities favor atelectasis. Bones appear grossly intact. Limited exam secondary to technique and patient body habitus. IMPRESSION: Cardiomegaly without acute process. ACT 112: Negative or not required by law. The above report was generated using voice recognition software. It may contain grammatical, syntax or spelling errors. Electronically signed by: Juan Goznalez M.D. 10/14/2023 11:24 AM Medications Administered Discontinued Medications Sodium Chloride (Nss) 1,000 mls @ 999 mls/hr IV .Q1H1M ONE Stop: 10/14/23 12:04 Last Infusion: 10/14/23 14:33 Dose: Infused Documented By: Admin: 10/14/23 11:19 Dose: 999 mls/hr Documented By: CRISTOPHER Sodium Chloride (Nss) 1,000 mls @ 999 mls/hr IV .Q1H1M ONE Stop: 10/14/23 13:45 Last Infusion: 10/14/23 14:33 Dose: Infused Documented By: Admin: 10/14/23 13:28 Dose: 999 mls/hr Documented By: CIRSTOPHER Insulin Human Regular (Novolin-R Insulin Per Unit Charge) 10 units IV NOW STA Stop: 10/14/23 11:05 Last Admin: 10/14/23 11:18 Dose: 10 units Documented By: CRISTOPHER Co-signed By: NELL Insulin Human Regular (Novolin-R Insulin Per Unit Charge) 10 units IV NOW STA Stop: 10/14/23 12:46 Last Admin: 10/14/23 13:24 Dose: 10 units Documented By: CRISTOPHER Co-signed By: NELL Code Status & VTE Plan VTE Prophylaxis Plan VTE Prophylaxis will be ordered: Yes Supervising Physician Co-Signing Physician Notes I have seen and examined the patient and have discussed the case with the provider above. I agree with the assessment and plan as stated. 63-year-old man presents with hyperglycemia. Has a history of drug abuse chronic comorbidities and uncontrolled diabetes at baseline. There was an issue with his Dexcom and although he has a glucometer he did not check this as a backup. He called the ambulance thinking he was hypoglycemic but in fact became hyperglycemic. He has received insulin and glucose is 252. He is feeling well without any symptoms. He reports he was just concerned about his glucose level. He is a recurrent history degree of noncompliance and hyperglycemia with ongoing uncontrolled diabetes. Recommend close follow-up with glycemic pharmacist outpatient and his PCP. He is morbidly obese. Continue to reiterate the importance of lifestyle modifications including diet modifications. DO Randall (1) Hyperglycemia due to type 2 diabetes mellitus Diabetes mellitus detention insulin use: with detention use Qualified Code(s): E11.65 - Type 2 diabetes mellitus with hyperglycemia; Z79.4 - intermodal customer service (current) use of insulin (5) Hypertension Hypertension type: primary hypertension Qualified Code(s): I10 - Essential (primary) hypertension
[2023-10-14] MEDS ORDERED: DEXTROSE 50% 50 ML SYRINGE IV PRN (14:22)
[2023-10-14] MEDS ORDERED: PHARMACY GLYCEMIC MGMT CONSULT PRN (14:22)
[2023-10-14] MEDS ORDERED: GLUCOSE 10 TAB/TUBE PO PRN (14:22)
[2023-10-14] MEDS ORDERED: CARBOHYDRATES FOR HYPOGLYCEMIA PO PRN (14:22)
[2023-10-14] MEDS ORDERED: GLUCOSE 40% GEL 15 GM TUBE PO PRN (14:22)
[2023-10-14] MEDS ORDERED: GLUCAGON FOR INJ 1 MG VIAL SQ PRN (14:22)
--- NOTE | 2023-10-14 15:05 | Pharmacy Report ---
Pharmacy Glycemic Short Note 2 - Date of Service October 14, 2023 - Glycemic Short BSG Results (Last 24 hours): 10/14/23 10/14/23 10/14/23 10:01 10:41 11:51 Glucose 587 H* POC Glucose 516 H* 496 H* 10/14/23 10/14/23 10/14/23 12:23 13:18 14:30 Glucose POC Glucose 412 H* 418 H* 252 H OUTPATIENT ANTIDIABETIC REGIMEN: * Toujeo 80 units SQ BID * Novolog 45 units with breakfast, 50 units with dinner - max 120 units/day * Metformin 1500 mg PO daily * Jardiance 25 mg PO Daily * HbA1C= 12.1% (05/26/23), updated A1c ordered ASSESSMENT: * 63 yo male, PMH of HTN, [place], nonischemic cardiomyopathy, chronic hepatitis C, insulin-requiring DM2, polyneuropathy, ALEJANDRA, history of IV drug abuse, depression, BPH and medical noncompliance, pt reports that his DexCom was malfunctioning and reading as low blood sugar. * Hyperglycemic, BSG 587mg/dl - patient received 2 doses of IV Regular insulin 10 units each, BSG now down to 252mg/dl. * Of note, he was seen in the ED four days ago for hyperglycemia, mention pt using eating as a coping method while he tries to stop using meth. * Patient allergic to insulin glargine, will use NPH for basal coverage, and start with similar inpatient regimen used in May. PLAN FOR INPATIENT GLYCEMIC CONTROL: * Hold outpatient diabetes medications * Basal insulin * NPH 20 units SC with breakfast, 10 units SC with dinner * Bolus insulin * NovoLog per scale ACHS or Q6hrs while NPO * Goal Range: Low 120 mg/dL - High 160 mg/dL * Correction Factor: 20 mg/dL/unit * Nutritional / Prandial insulin per carb ratio of 1 unit per 4 grams CHO consumed
[2023-10-14] MEDS ORDERED: ACETAMINOPHEN 325 MG TAB PO PRN (15:09)
[2023-10-14 15:37] LABS: Amphetamines+Metham, Urine Neg (Neg); Barbiturates, Urine Neg (Neg); Benzodiazepine, Urine Neg (Neg); Cocaine, Urine Neg (Neg); MDMA (Ecstacy), Urine Neg (Neg); Marijuana, Urine Neg (Neg); Methadone, Urine Neg (Neg); Opiate, Urine Pos (Neg); Phencyclidine, Urine Neg (Neg)
[2023-10-14] MEDS: buPROPion XL 300 MG TABCR PO SCH (16:58)
[2023-10-14] MEDS: SERTRALINE HCL 100 MG TABLET PO SCH (16:58)
[2023-10-14] MEDS ORDERED: INSULIN HUMAN NPH SC SCH (17:00)
[2023-10-14] MEDS ORDERED: INFLUENZA VIRUS QUADRIVALENT VACCINE (IIV4) 0.5 ML SYR IM ONE (17:06)
[2023-10-14] MEDS: INSULIN ASPART PER UNIT CHARGE SC SCH ×2 (17:33→20:37)
[2023-10-14] MEDS: METOPROLOL SUCC 50MG EXT REL TAB PO SCH (20:38)
[2023-10-14] MEDS ORDERED: NON-FORMULARY MEDICATION (Insulin Glargine U-300 Conc [Toujeo Max U-300 Solostar] 300 unit SQ SCH (21:00)
[2023-10-15] MEDS: INSULIN ASPART PER UNIT CHARGE SC SCH ×4 (00:13→12:25)
[2023-10-15 06:30] LABS: Hematocrit (blood only) 41.3 % (42.0-52.0); Hemoglobin 13.6 g/dl (14.0-18.0); Mean Corpuscular Hemoglobin 27.2 pg (25.0-34.0); Mean Corpuscular Hgb Conc 32.9 g/dL (32.0-36.0); Mean Corpuscular Volume 82.6 fL (80.0-100.0); Mean Platelet Volume 9.8 fL (9.4-12.4); Platelet Count 238 K/uL (130-400); RDW Coefficient of Variation 12.8 % (11.5-14.5); RDW Standard Deviation 38.7 fL (36.4-46.3); White Blood Count 10.34 K/ul (4.8-10.8)
[2023-10-15 06:53] LABS: BUN Creatinine Ratio 24.6 (10-20); Calcium 8.1 mg/dl (8.6-10.3); Creatinine Clr Calc Pharmacy 161.6 ml/min; Est GFR (African American) 121.7 ml/min; Potassium 4.5 mmol/L (3.5-5.1)
[2023-10-15 07:33] LABS: Estimated Average Glucose 278 mg/dl; Hemoglobin A1C 11.3 % (4.5-5.6)
[2023-10-15] MEDS ORDERED: INSULIN HUMAN NPH SC SCH ×2 (08:00)
[2023-10-15] MEDS: buPROPion XL 300 MG TABCR PO SCH (08:40)
[2023-10-15] MEDS: METOPROLOL SUCC 50MG EXT REL TAB PO SCH (08:41)
[2023-10-15] MEDS: SERTRALINE HCL 100 MG TABLET PO SCH (08:41)
--- NOTE | 2023-10-15 08:52 | Pharmacy Report ---
Pharmacy Glycemic Short Note 2 - Date of Service October 15, 2023 - Glycemic Short BSG Results (Last 24 hours): 10/14/23 10/14/23 10/14/23 10:01 10:41 11:51 Glucose 587 H* POC Glucose 516 H* 496 H* 10/14/23 10/14/23 10/14/23 12:23 13:18 14:30 Glucose POC Glucose 412 H* 418 H* 252 H 10/14/23 10/14/23 10/15/23 16:59 20:08 00:07 Glucose POC Glucose 240 H 244 H 238 H 10/15/23 10/15/23 10/15/23 03:27 05:59 07:46 Glucose 192 H POC Glucose 170 H 168 H OUTPATIENT ANTIDIABETIC REGIMEN: * Toujeo 80 units SQ BID * Novolog 45 units with breakfast, 50 units with dinner - max 120 units/day * Metformin 1500 mg PO daily * Jardiance 25 mg PO Daily HbA1C= 11.3% (10/15/23) ASSESSMENT: 10/15/23: * Previously had reasonable success w/ NPH BID, will continue this regimen during this admission * BSGs have trended down nicely since time of admission (516 -> 168 mg/dL) 10/14/23: * 63 yo male, PMH of HTN, [place], nonischemic cardiomyopathy, chronic hepatitis C, insulin-requiring DM2, polyneuropathy, ALEJANDRA, history of IV drug abuse, depression, BPH and medical noncompliance, pt reports that his DexCom was malfunctioning and reading as low blood sugar. * Hyperglycemic, BSG 587mg/dl - patient received 2 doses of IV Regular insulin 10 units each, BSG now down to 252mg/dl. * Of note, he was seen in the ED four days ago for hyperglycemia, mention pt using eating as a coping method while he tries to stop using meth. * Patient allergic to insulin glargine, will use NPH for basal coverage, and start with similar inpatient regimen used in May. PLAN FOR INPATIENT GLYCEMIC CONTROL: * Hold outpatient diabetes medications * Basal insulin * NPH 30 units SC with breakfast, 10 units SC with dinner * Bolus insulin * NovoLog per scale ACHS or Q6hrs while NPO * Goal Range: Low 110 mg/dL - High 140 mg/dL * Correction Factor: 20 mg/dL/unit * Nutritional / Prandial insulin per carb ratio of 1 unit per 4 grams CHO consumed
[2023-10-15] MEDS ORDERED: SPIRONOLACTONE 25 MG TAB PO SCH (09:00)
[2023-10-15] MEDS ORDERED: ASPIRIN 81 MG ECTAB PO SCH (09:00)
[2023-10-15] MEDS ORDERED: TAMSULOSIN HCL 0.4 MG CAP PO SCH (09:00)
[2023-10-15] MEDS ORDERED: ASCORBIC ACID 500 MG TAB PO SCH (09:00)
[2023-10-15] MEDS ORDERED: lisinopril 20 MG TAB PO SCH (09:00)
[2023-10-15] MEDS ORDERED: EMPAGLIFLOZIN 25 MG TAB PO SCH (09:00)
--- NOTE | 2023-10-15 09:45 | Discharge Summary ---
Discharge Summary Date of Service October 15, 2023 Notes For Next Care Provider continue to encourage insulin compliance re-education efforts with Dexcom meter, goal glucose numbers, and how to use back up meter as needed consider referral to nutrition for GLP-1 agonist therapy with weight gain Medication Changes From Visit no changes to regimen. Please followup with MTM pharmacist next week Admission HPI Per Admitting Provider This is a 63 y/o male with history of HTN, [place], nonischemic cardiomyopathy, chronic hepatitis C, insulin-requiring DM2, polyneuropathy, ALEJANDRA, history of IV drug abuse, depression, BPH and medical noncompliance who presents to the ED today with high blood sugar. Pt reports that he changed his DexCom within the last few days. This morning, it started alarming around 4-5 am for low blood sugar (68) so he ate some milk and cereal. He denied have any symptoms of hypoglycemia at the time. However, it continued to alarm low with a sugar of 50 so he ate half a loaf of bread with Nutella. When the monitor continued to alarm with eating this food, he became anxious and called 911 even though he remained asymptomatic. When EMS arrived and checked his sugar, it was over 500. Pt does not typically check his sugar via fingerstick at home and did not think to do so this morning. In the ED today, he has received 20 units of IV regular insulin and 2L of IVF (NSS) but sugar remains >400. Pt was seen in the ED for hyperglycemia on 10/10, which he admits was due to noncompliance as he ate a large amount of high-carb foods over the weekend. He reports intermittent issues with episodes of uncontrolled overeating. He is following with [facility] glycemic pharmacist with his next appt scheduled for 10/19. His current regiment is Toujeo 90 units BID, Novolog 45 units with breakfast, 50 units with dinner unless his sugar is over 300, in which case he uses 60 units. He has not taken any insulin since yesterday other than that given to him in the ED. Admission Exam Per Admitting Provider General: awake, alert, NAD, anxious mood HEENT: no scleral icterus, moist oral mucosa Neck: supple, trachea midline Heart: RRR Lungs: CTA bilaterally, no W/R/R Abdomen: soft, obese, NT, +BS Extremities: no pedal edema Skin: no jaundice Neurologic: no focal deficits, no dysarthria, no confusion, Ox3 Principal Dx & Hospital Course #1 = Principal Diagnosis (1) Hyperglycemia due to type 2 diabetes mellitus: This is a 63 y/o male with history of HTN, [place], nonischemic cardiomyopathy, chronic hepatitis C, insulin-requiring DM2, polyneuropathy, ALEJANDRA, history of IV drug abuse, depression, BPH and medical noncompliance who presents to the ED with high blood sugar. Pt reports that his DexCom was malfunctioning and reading as low blood sugar so he ate a large amount of carbohydrates including milk, cereal, bread and Nutella. Of note, he was seen in the ED four days prior for hyperglycemia but he admits that this was due to dietary indiscretion on his part for no specific reason, although ED notes from that day mention pt using eating as a coping method while he tries to stop using meth. Glucose was 587 on arrival and corrected Na was normal. Renal function was at baseline. He received two doses of Regular insulin intravenously 10 Units and blood glucose came down to 252. He was continued on NPH during his admission and glucose was in the normal range the following day. There were no other signs or symptoms of infection, urine drug screen was positive for opiates. He was counseled on weight loss and given the information about GLP-1 agonists to consider with PCP on followup next week. 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 Also, he reported the Dexcom meter just needed its sensor changed, which he can do at home today. (2) Noncompliance: (3) Dietary indiscretion: (4) Morbid obesity: (5) Hypertension: Discharge Exam mentating and ambulating at baseline and tolerating PO asymptomatic. hemodynamically stable and afebrile oxygenating well on room air. morbidly obese, NAD abdomen soft NTND Updated Medication List Medication Instructions Recorded Confirmed Type spironolactone 25 mg tablet 25 mg PO DAILY 01/04/19 10/14/23 History Chromium-Cinnamon 1 tab PO DAILY 08/01/22 10/14/23 History aspirin 81 mg tablet,delayed 81 mg PO DAILY 08/01/22 10/14/23 History release bupropion HCl 300 mg 24 hr tablet, 300 mg PO DAILY 08/01/22 10/14/23 History extended release empagliflozin 25 mg tablet 25 mg PO DAILY 08/01/22 10/14/23 History (Jardiance) insulin aspart U-100 100 unit/mL See Rx Instructions .Route .COMPLEX 08/01/22 10/14/23 History (3 mL) subcutaneous pen metformin 750 mg tablet,extended 1,500 mg PO DAILY 08/01/22 10/14/23 History release 24 hr nitroglycerin 0.4 mg sublingual 0.4 mg sublingual DIRECTED PRN 08/01/22 10/14/23 History tablet (Nitrostat) Chest Pain ascorbic acid (vitamin C) 500 mg 1,000 mg PO DAILY 09/21/22 10/14/23 History tablet (Vitamin C) multivitamin with minerals 1 tab PO DAILY 09/21/22 10/14/23 History (Multiple Vitamin-Minerals tablet) furosemide 20 mg tablet (Lasix) 60 mg PO DAILY 10/10/23 10/14/23 History lisinopril 20 mg tablet 20 mg PO QAM 10/10/23 10/14/23 History sertraline 100 mg tablet 100 mg PO QAM 10/10/23 10/14/23 History insulin glargine U-300 conc 300 90 unit subcut BID 10/14/23 10/14/23 History unit/mL (3 mL) subcutaneous pen (Toujeo Max U-300 SoloStar) metoprolol succinate 50 mg 50 mg PO BID 10/14/23 10/14/23 History tablet,extended release 24 hr tamsulosin 0.4 mg capsule 0.4 mg PO DAILY 10/14/23 10/14/23 History Hospital Stay Data Consultations 10/14/23 13:06 ED Decision to Admit Stat Pending Results Patient Have Any Pending Studies at Discharge: No Discharge Instructions Given to Patient (Per Discharging Provider) Please continue all medications as listed below. A close followup with your [facility] pharmacist with [facility] and with Dr. Fofana is recommended next week. This is to check your Dexcom and order a new one if needed. In the meantime, please use your backup glucometer to check your blood sugar. Part of being healthy is also losing weight, as adipose (fat cells) tissue promotes poor diabetes control and overall poor health. Diabetics are at higher risk for heart disease and stroke than those people without diabetes. Please avoid high sugar, high fat, starchy or processed foods, eating them only in moderation. Please consider working with a dining room host/hostess to help you with weight loss. You would also qualify for some of the newer medications such as Ozempic, which may help you in this effort. Please speak with Dr. Fofana regarding the best options for you moving forward. It was a pleasure taking care of you! Please call if you have any questions or problems. You can reach a [facility] hospitalist on duty at [facility] 24 hours a day by calling [phone]. Take care of yourself. Chikis Pereira, DO [facility] Hospitalist Total Time Total Time Spent Total Time Spent (In Minutes): 60
[2023-10-18 14:42] LABS: Codeine Urine 165 ng/mL (<50); Hydrocodone Urine NEGATIVE ng/mL (<50); Hydromor Urine NEGATIVE ng/mL (<50); Morphine Urine NEGATIVE ng/mL (<50); Norhydrocodone Conf Ur NEGATIVE ng/mL (<50); Noroxycodone Urine NEGATIVE ng/mL (<50); Oxycodone Urine NEGATIVE ng/mL (<50); Oxymorph Urine NEGATIVE ng/mL (<50)
== END 2023-10-15 14:12 | disposition home or self-care (01) ==
LOC: ED 09:48 → 4W 09:48 → SUATTDRO 13:36 → 4W 14:53

== ENCOUNTER 2023-12-11 07:14 | Inpatient (IN) ==
--- NOTE | 2023-12-11 07:26 | Emergency Department Note ---
Impression & Plan Acute hyperglycemia, Shortness of breath ED Provider Note NAME: ELIN ELLISON AGE: 63 SEX: M : 1960 ARRIVES VIA: Ambulance INFORMANT: Patient ED PROVIDER(S): Ahmet Brown DO CHIEF COMPLAINT: shortness of breath HPI: Patient is a 63-year-old male with a past medical history of IV drug abuse, morbid obesity, medical noncompliance, nonischemic cardiomyopathy, diabetes with hyperglycemia, confusion, encephalopathy who presents to the ER for shortness of breath which started last night. He notes he had to wake up multiple times as he was gasping for air. Generally sleeps in a recliner. Additional history provided by EMS who notes that they obtained a blood sugar and was critically high. Patient denies any headache or change in vision. No chest pain but admits to shortness of breath. Shortness of breath is only present when up moving around. Denies any belly pain nausea vomiting or diarrhea. No dysuria urgency or frequency. No other exacerbating or remitting factors. He does not know what medications he takes but notes that he is taking them all. ADDITIONAL HISTORY OBTAINED: Per HPI Chronic Medical/Social Conditions Affecting Care: Per HPI PAST MEDICAL HISTORY:See Below PAST SURGICAL HISTORY:See Below FAMILY HISTORY:See Below SOCIAL HISTORY:See Below HOME MEDICATIONS:See Below ALLERGIES:See Below VITALS:See Below PHYSICAL EXAMINATION: GENERAL: Sitting up in bed, alert, well appearing, well nourished, no distress, non-toxic EYE EXAM: normal conjunctiva. PERRL and EOM's grossly intact. OROPHARYNX: no exudate, no erythema, lips, buccal mucosa, and tongue normal and mucous membranes are moist NECK: supple, no nuchal rigidity, no adenopathy, non-tender LUNGS: Clear to auscultation. Normal chest wall mechanics HEART: no murmurs, S1 normal and S2 normal ABDOMEN: abdomen soft, non-tender, normo-active bowel sounds, no masses, no rebound or guarding. UPPER EXTREMITIES: upper extremities are grossly normal. LOWER EXTREMITIES: Calves are equal bilaterally with mild pitting edema NEURO EXAM: Normal sensorium, cranial nerves II-XII grossly intact, normal speech, no gross weakness of arms, no gross weakness of legs. MEDICAL DECISION MAKING: Patient is a 63-year-old male who presents ER for shortness of breath and elevated sugars noting that his blood sugar sensor is no longer functioning. External records reviewed from for hypoglycemia admission. Labs show no significant leukocytosis or anemia. D-dimer was negative. VBG with a pH 7.34. CO2 was appropriate. BMP with no gap. Normal CO2 at 24. Glucose was significantly elevated in the 500s. Patient was given 10 units of insulin and actually trended up slightly. Following this he was placed on insulin drip given a bolus again. He was given IV fluids. LFTs bilirubin was unremarkable. Lipase was normal. UA was negative. Chest x-ray was unremarkable. Again patient was initially given 10 units of IV insulin. He was then placed on insulin drip. Admitted to the hospitalist for further evaluation management treatment. Consults/Care Managements Discussions: Per [facility] Triage Nursing notes reviewed. Limited review of prior medical records performed Vital Signs: reviewed and remarkable for no significant abnormalities Differential diagnosis: Differential diagnoses includes but is not limited to pneumonia, bronchitis, COPD/Asthma exacerbation, pneumothorax, pulmonary embolism, congestive heart failure, acute coronary syndrome ER treatment provided: See below Diagnostics interpreted by me include EKG and cardiac monitoring as listed below: -Cardiac Monitoring: An order was placed for continuous cardiac monitoring. The monitor shows a rate of 82 with sinu rhythm. -ECG: Sinus rhythm rate 88 Normal axis No PVCs Poor baseline in lateral leads QTc 452 No significant change from previous -Laboratory studies:Interpreted by me as stated above in [facility] and shown below. Imaging studies: Xrays: As interpreted by me: Portable AP upright 1 view of the chest shows no focal Lutrate CTs show: none Procedures:none Critical Care: I have personally spent 33 minutes of critical care time in the direct management of this patient. This includes bedside care, interpretation of diagnostic studies, and testing, discussion with consultants, patient, and family members, and other required patient management activities. This 33 minutes is in excess of all separately billable procedures. Past Med/Surg History Medical History (Updated 12/11/23 @ 12:09 by Ahmet Brown DO) Acute dehydration ALEJANDRA (obstructive sleep apnea) Hyperglycemia Accidental fall tripped over dog bed, hit back of head, checked in the ED poss concussion Dysequilibrium Hepatitis C Diabetes mellitus, type 2 Depression Anxiety Hypertension H/O drug abuse Surgical History History of colonoscopy History of umbilical hernia repair x2 History of tooth extraction History of wisdom tooth extraction History of cardiac cath 03/2015 @ [facility], no stents follows with Dr. Monet Family History Mother Family history of diabetes mellitus Father Family history of diabetes mellitus Other No family history of adverse response to anesthesia Social History Smoking Status: Never smoker Tobacco Type: Cigarettes Cigarettes Per Day: Says he occasionally will smoke a cigar.; Second Hand Exposure: Yes; Do You Dip or Chew Tobacco: No; Hx Alcohol Use: No Hx Substance Use: Yes Non-Prescribed Medications: Methamphetamines Last Used Substance Other:: last used meth couple weeks ago Preferred Language: Lithuanian Communication Ability: Effective Assistant Food Service Director Required: No Beliefs That Will Affect Care: None marital status: Single Current Living Situation: Alone Current Living Situation Comment: lives alone Feels Safe at Home: Yes Assistive Devices: None Allergies Allergies Allergy/AdvReac Type Severity Reaction Status Date / Time permethrin Allergy Intermediate swelling Verified 10/10/23 11:42 shrimp Allergy Intermediate SWELLS Verified 10/10/23 11:42 sulfamethoxazole Allergy Unknown Unknown Verified 10/10/23 11:42 [From Bactrim] trimethoprim [From Bactrim] Allergy Unknown Unknown Verified 10/10/23 11:42 insulin glargine AdvReac Severe CHF Verified 10/10/23 11:42 [From Lantus U-100 Insulin] amoxicillin AdvReac Intermediate HIVES Verified 10/10/23 11:42 clavulanic acid AdvReac Intermediate HIVES Verified 10/10/23 11:42 Home Meds Home Medications Medication Instructions Recorded Confirmed spironolactone 25 mg tablet 25 mg PO DAILY 01/04/19 12/11/23 Chromium-Cinnamon 1 tab PO DAILY 08/01/22 12/11/23 aspirin 81 mg tablet,delayed 81 mg PO DAILY 08/01/22 12/11/23 release bupropion HCl 300 mg 24 hr tablet, 300 mg PO DAILY 08/01/22 12/11/23 extended release empagliflozin 25 mg tablet 25 mg PO DAILY 08/01/22 12/11/23 (Jardiance) insulin aspart U-100 100 unit/mL See Rx Instructions .Route .COMPLEX 08/01/22 12/11/23 (3 mL) subcutaneous pen metformin 750 mg tablet,extended 1,500 mg PO DAILY 08/01/22 12/11/23 release 24 hr nitroglycerin 0.4 mg sublingual 0.4 mg sublingual DIRECTED PRN 08/01/22 12/11/23 tablet (Nitrostat) Chest Pain ascorbic acid (vitamin C) 500 mg 1,000 mg PO DAILY 09/21/22 12/11/23 tablet (Vitamin C) multivitamin with minerals 1 tab PO DAILY 09/21/22 12/11/23 (Multiple Vitamin-Minerals tablet) furosemide 20 mg tablet (Lasix) 60 mg PO DAILY 10/10/23 12/11/23 lisinopril 20 mg tablet 20 mg PO QAM 10/10/23 12/11/23 sertraline 100 mg tablet 100 mg PO QAM 10/10/23 12/11/23 insulin glargine U-300 conc 300 100 unit subcut BID 10/14/23 12/11/23 unit/mL (3 mL) subcutaneous pen (Toujeo Max U-300 SoloStar) metoprolol succinate 50 mg 50 mg PO BID 10/14/23 12/11/23 tablet,extended release 24 hr tamsulosin 0.4 mg capsule 0.4 mg PO DAILY 10/14/23 12/11/23 Results & Data (ED) Vital Signs Vital Signs - 24 hr 12/11/23 07:26 12/11/23 07:26 12/11/23 07:26 Temperature 36.9 C Temperature Source Oral Pulse Rate 88 92 H 92 H Pulse Rate [Apical] Respiratory Rate 19 19 Respiratory Effort / Characteristics Spontaneous Respiratory Depth Normal Blood Pressure 141/80 H Blood Pressure [Right Arm] Blood Pressure Mean 100 Blood Pressure Mean [Right Arm] Blood Pressure Position Semi-fowlers Blood Pressure Position [Right Arm] Pulse Oximetry 93 93 Oxygen Delivery Method Room Air Room Air Sepsis Recent Fever Within 48 Hours No Sepsis New/Unexplained Change in Mental Status N/A Sepsis Action Taken by Nursing No Action Required 12/11/23 07:26 12/11/23 07:32 12/11/23 07:46 Temperature 36.9 C Temperature Source Oral Pulse Rate Pulse Rate [Apical] 92 H Respiratory Rate 19 Respiratory Effort / Characteristics Non-Labored Spontaneous Respiratory Depth Normal Blood Pressure Blood Pressure [Right Arm] 141/80 H Blood Pressure Mean Blood Pressure Mean [Right Arm] 100 Blood Pressure Position Blood Pressure Position [Right Arm] Semi-fowlers Pulse Oximetry 93 93 95 Oxygen Delivery Method Room Air Room Air Room Air Sepsis Recent Fever Within 48 Hours Sepsis New/Unexplained Change in Mental Status Sepsis Action Taken by Nursing Laboratory Data 12/11/23 07:35 12/11/23 07:35 Lab Results 12/11/23 12/11/23 12/11/23 Range/Units 07:19 07:33 07:34 WBC (4.8-10.8) K/ul RBC (4.70-6.10) M/uL Hgb (14.0-18.0) g/dl POC Hgb (14.0-18.0) g/dl Hct (42.0-52.0) % POC Hct (42-52) % MCV (80.0-100.0) fL MCH (25.0-34.0) pg MCHC (32.0-36.0) g/dL RDW Std Deviation (36.4-46.3) fL RDW Coeff of Marc (11.5-14.5) % Plt Count (130-400) K/uL MPV (9.4-12.4) fL Immature Gran % (Auto) % Neut % (Auto) % Lymph % (Auto) % [place] % (Auto) % Eos % (Auto) % Baso % (Auto) % Neut # (Auto) (1.40-6.50) K/uL Lymph # (Auto) (1.20-3.40) K/uL [place] # (Auto) (0.11-0.59) K/uL Eos # (Auto) (0.00-0.50) K/uL Baso # (Auto) (0.00-0.20) K/uL Immature Gran # (Auto) (0.01-0.20) K/uL D-Dimer (0-500) ug/L FEU VBG pH 7.34 L (7.36-7.41) VBG pCO2 45 (38-50) mmHg VBG pO2 47 mmHg VBG HCO3 24 mmol/L VBG O2 Saturation 81.2 % VBG Base Excess -1.7 mEq/L POC Sodium (135-144) mmol/L Sodium (136-145) mmol/L POC Potassium (3.3-5.0) mmol/L Potassium (3.5-5.1) mmol/L POC Chloride (101-112) mmol/L Chloride (98-107) mmol/L Carbon Dioxide (21-32) mmol/L POC Total CO2 (24-31) mmol/L Anion Gap (3-11) POC Anion Gap (16-25) mmol/L POC BUN (7-18) mg/dl BUN (6-23) mg/dl Creatinine (0.6-1.4) mg/dl POC Creatinine (0.6-1.3) mg/dl Est Cr Clr Drug Dosing ml/min Est GFR ( Amer) ml/min Est GFR (Non-Af Amer) ml/min BUN/Creatinine Ratio (10-20) Glucose (70-99(Fasting)) mg/dl POC Glucose 445 H* (70-99) mg/dl POC Glucose (other) (70-99) mg/dl Calcium (8.6-10.3) mg/dl POC Ioniz Calcium Olga (1.12-1.32) mmol/l Magnesium (1.7-2.4) mg/dl Total Bilirubin (0.2-1.0) mg/dl AST (13-39) U/L ALT (7-52) U/L Alkaline Phosphatase (34-104) U/L Troponin I High Sens (0-20) pg/ml B-Natriuretic Peptide (0-100) pg/ml Total Protein (6.0-8.3) gm/dl Albumin (3.4-5.0) gm/dl Globulin (2.5-4.0) gm/dl Albumin/Globulin Ratio (0.9-2) Lipase (11-82) U/L Urine Color Urine Appearance (Clear) Urine pH (4.5-7.5) Ur Specific [place] (1.000-1.030) Urine Protein (Negative) Urine Glucose (UA) (Negative) Urine Ketones (Negative) Urine Blood (Negative) Urine Nitrite (Negative) Urine Bilirubin (Negative) Urine Urobilinogen (Negative) Ur Leukocyte Esterase (Negative) Urine Opiates Screen (Neg) Ur Methadone, Qual (Neg) Urine Barbiturates (Neg) Ur Phencyclidine (PCP) (Neg) U Amphetamin/Meth Scrn (Neg) MDMA (Ecstasy) Screen (Neg) U Benzodiazepines Scrn (Neg) Ur Cocaine Metabolite (Neg) U Marijuana (THC) Screen (Neg) SARS-CoV-2 (PCR) NEGATIVE (Negative) Influenza Type A (PCR) Negative (Neg) Influenza Type B (PCR) Negative (Neg) RSV (RT-PCR) Negative (Neg) 12/11/23 12/11/23 12/11/23 Range/Units 07:35 07:47 08:03 WBC 9.41 (4.8-10.8) K/ul RBC 5.34 (4.70-6.10) M/uL Hgb 14.0 (14.0-18.0) g/dl POC Hgb 15.3 (14.0-18.0) g/dl Hct 43.0 (42.0-52.0) % POC Hct 45 (42-52) % MCV 80.5 (80.0-100.0) fL MCH 26.2 (25.0-34.0) pg MCHC 32.6 (32.0-36.0) g/dL RDW Std Deviation 41.8 (36.4-46.3) fL RDW Coeff of Marc 14.4 (11.5-14.5) % Plt Count 272 (130-400) K/uL MPV 9.9 (9.4-12.4) fL Immature Gran % (Auto) 1.0 % Neut % (Auto) 57.0 % Lymph % (Auto) 28.3 % [place] % (Auto) 8.9 % Eos % (Auto) 3.6 % Baso % (Auto) 1.2 % Neut # (Auto) 5.37 (1.40-6.50) K/uL Lymph # (Auto) 2.66 (1.20-3.40) K/uL [place] # (Auto) 0.84 H (0.11-0.59) K/uL Eos # (Auto) 0.34 (0.00-0.50) K/uL Baso # (Auto) 0.11 (0.00-0.20) K/uL Immature Gran # (Auto) 0.09 (0.01-0.20) K/uL D-Dimer 200 (0-500) ug/L FEU VBG pH (7.36-7.41) VBG pCO2 (38-50) mmHg VBG pO2 mmHg VBG HCO3 mmol/L VBG O2 Saturation % VBG Base Excess mEq/L POC Sodium 133 L (135-144) mmol/L Sodium 129 L (136-145) mmol/L POC Potassium 4.4 (3.3-5.0) mmol/L Potassium 4.8 (3.5-5.1) mmol/L POC Chloride 98 L (101-112) mmol/L Chloride 100 (98-107) mmol/L Carbon Dioxide 24 (21-32) mmol/L POC Total CO2 26 (24-31) mmol/L Anion Gap 5 (3-11) POC Anion Gap 14.0 L (16-25) mmol/L POC BUN 27 H (7-18) mg/dl BUN 28 H (6-23) mg/dl Creatinine 0.74 (0.6-1.4) mg/dl POC Creatinine 0.8 (0.6-1.3) mg/dl Est Cr Clr Drug Dosing 141.4 ml/min Est GFR ( Amer) 115.4 ml/min Est GFR (Non-Af Amer) 99.6 ml/min BUN/Creatinine Ratio 37.8 H (10-20) Glucose 519 H* (70-99(Fasting)) mg/dl POC Glucose (70-99) mg/dl POC Glucose (other) 529 H* (70-99) mg/dl Calcium 8.0 L (8.6-10.3) mg/dl POC Ioniz Calcium Olga 1.10 L (1.12-1.32) mmol/l Magnesium 1.9 (1.7-2.4) mg/dl Total Bilirubin 0.3 (0.2-1.0) mg/dl AST 25 (13-39) U/L ALT 19 (7-52) U/L Alkaline Phosphatase 91 (34-104) U/L Troponin I High Sens 18.7 (0-20) pg/ml B-Natriuretic Peptide 67 (0-100) pg/ml Total Protein 6.1 (6.0-8.3) gm/dl Albumin 3.3 L (3.4-5.0) gm/dl Globulin 2.8 (2.5-4.0) gm/dl Albumin/Globulin Ratio 1.2 (0.9-2) Lipase 89 H (11-82) U/L Urine Color Urine Appearance (Clear) Urine pH (4.5-7.5) Ur Specific [place] (1.000-1.030) Urine Protein (Negative) Urine Glucose (UA) (Negative) Urine Ketones (Negative) Urine Blood (Negative) Urine Nitrite (Negative) Urine Bilirubin (Negative) Urine Urobilinogen (Negative) Ur Leukocyte Esterase (Negative) Urine Opiates Screen (Neg) Ur Methadone, Qual (Neg) Urine Barbiturates (Neg) Ur Phencyclidine (PCP) (Neg) U Amphetamin/Meth Scrn (Neg) MDMA (Ecstasy) Screen (Neg) U Benzodiazepines Scrn (Neg) Ur Cocaine Metabolite (Neg) U Marijuana (THC) Screen (Neg) SARS-CoV-2 (PCR) (Negative) Influenza Type A (PCR) (Neg) Influenza Type B (PCR) (Neg) RSV (RT-PCR) (Neg) 12/11/23 12/11/23 Range/Units 08:04 09:19 WBC (4.8-10.8) K/ul RBC (4.70-6.10) M/uL Hgb (14.0-18.0) g/dl POC Hgb (14.0-18.0) g/dl Hct (42.0-52.0) % POC Hct (42-52) % MCV (80.0-100.0) fL MCH (25.0-34.0) pg MCHC (32.0-36.0) g/dL RDW Std Deviation (36.4-46.3) fL RDW Coeff of Marc (11.5-14.5) % Plt Count (130-400) K/uL MPV (9.4-12.4) fL Immature Gran % (Auto) % Neut % (Auto) % Lymph % (Auto) % [place] % (Auto) % Eos % (Auto) % Baso % (Auto) % Neut # (Auto) (1.40-6.50) K/uL Lymph # (Auto) (1.20-3.40) K/uL [place] # (Auto) (0.11-0.59) K/uL Eos # (Auto) (0.00-0.50) K/uL Baso # (Auto) (0.00-0.20) K/uL Immature Gran # (Auto) (0.01-0.20) K/uL D-Dimer (0-500) ug/L FEU VBG pH (7.36-7.41) VBG pCO2 (38-50) mmHg VBG pO2 mmHg VBG HCO3 mmol/L VBG O2 Saturation % VBG Base Excess mEq/L POC Sodium (135-144) mmol/L Sodium (136-145) mmol/L POC Potassium (3.3-5.0) mmol/L Potassium (3.5-5.1) mmol/L POC Chloride (101-112) mmol/L Chloride (98-107) mmol/L Carbon Dioxide (21-32) mmol/L POC Total CO2 (24-31) mmol/L Anion Gap (3-11) POC Anion Gap (16-25) mmol/L POC BUN (7-18) mg/dl BUN (6-23) mg/dl Creatinine (0.6-1.4) mg/dl POC Creatinine (0.6-1.3) mg/dl Est Cr Clr Drug Dosing ml/min Est GFR ( Amer) ml/min Est GFR (Non-Af Amer) ml/min BUN/Creatinine Ratio (10-20) Glucose (70-99(Fasting)) mg/dl POC Glucose 483 H* (70-99) mg/dl POC Glucose (other) (70-99) mg/dl Calcium (8.6-10.3) mg/dl POC Ioniz Calcium Olga (1.12-1.32) mmol/l Magnesium (1.7-2.4) mg/dl Total Bilirubin (0.2-1.0) mg/dl AST (13-39) U/L ALT (7-52) U/L Alkaline Phosphatase (34-104) U/L Troponin I High Sens (0-20) pg/ml B-Natriuretic Peptide (0-100) pg/ml Total Protein (6.0-8.3) gm/dl Albumin (3.4-5.0) gm/dl Globulin (2.5-4.0) gm/dl Albumin/Globulin Ratio (0.9-2) Lipase (11-82) U/L Urine Color Yellow Urine Appearance Clear (Clear) Urine pH 5.0 (4.5-7.5) Ur Specific [place] 1.031 H (1.000-1.030) Urine Protein Negative (Negative) Urine Glucose (UA) 3+ H (Negative) Urine Ketones Negative (Negative) Urine Blood Negative (Negative) Urine Nitrite Negative (Negative) Urine Bilirubin Negative (Negative) Urine Urobilinogen Negative (Negative) Ur Leukocyte Esterase Negative (Negative) Urine Opiates Screen Neg (Neg) Ur Methadone, Qual Neg (Neg) Urine Barbiturates Neg (Neg) Ur Phencyclidine (PCP) Neg (Neg) U Amphetamin/Meth Scrn Neg (Neg) MDMA (Ecstasy) Screen Neg (Neg) U Benzodiazepines Scrn Neg (Neg) Ur Cocaine Metabolite Neg (Neg) U Marijuana (THC) Screen Neg (Neg) SARS-CoV-2 (PCR) (Negative) Influenza Type A (PCR) (Neg) Influenza Type B (PCR) (Neg) RSV (RT-PCR) (Neg) Administered Medications Insulin Human Regular 250 (units/ Sodium Chloride) 250 mls @ 3.8 mls/hr IV .Q24H [facility]; Protocol Stop: 01/10/24 09:29 Last Titration: 12/11/23 10:57 Dose: 3.8 units/hr, 3.8 mls/hr Documented By: KASSANDRA Co-signed By: JONNY Admin: 12/11/23 09:47 Dose: 4.8 units/hr, 4.8 mls/hr Documented By: ML Co-signed By: KASSANDRA Discontinued Medications Parenteral Electrolytes (Plasma-Lyte A Ph 7.4) 1,000 mls @ 999 mls/hr IV .Q1H1M ONE Stop: 12/11/23 08:20 Last Infusion: 12/11/23 11:24 Dose: Infused Documented By: Admin: 12/11/23 07:29 Dose: 999 mls/hr Documented By: ML Sodium Chloride (Nss) 500 mls @ 999 mls/hr IV .Q31M ONE Stop: 12/11/23 09:53 Last Infusion: 12/11/23 11:24 Dose: Infused Documented By: Admin: 12/11/23 09:54 Dose: 999 mls/hr Documented By: ML Insulin Human Regular (Novolin-R Insulin Per Unit Charge) 9 units IV NOW STA Stop: 12/11/23 07:57 Last Admin: 12/11/23 08:18 Dose: 9 units Documented By: KASSANDRA Co-signed By: CC Insulin Human Regular (Novolin-R Bolus From Bag) 5 units IV ONE ONE Stop: 12/11/23 09:46 Last Admin: 12/11/23 09:48 Dose: 5 units Documented By: ML Co-signed By: KASSANDRA Metoprolol Succinate (Metoprolol Succ 50mg Ext Rel Tab) 50 mg PO NOW STA Stop: 12/11/23 10:33 Last Admin: 12/11/23 11:03 Dose: 50 mg Documented By: KASSANDRA Potassium Chloride (Potassium Chloride Crtab 20 Meq Tabcr) 40 meq PO NOW STA Stop: 12/11/23 08:33 Last Admin: 12/11/23 10:25 Dose: 40 meq Documented By: KASSANDRA Imaging Data Radiologist's Impression: Chest X-Ray 12/11/23 07:20 XR chest 1V portable HISTORY: 63 years-old Male Chest pain, nonspecific COMPARISON: 12/04/2023 TECHNIQUE: AP view the chest FINDINGS: Cardiac silhouette is mildly enlarged. No pneumothorax, large pleural effusion or overt pulmonary edema. Chronic interstitial coarsening at the lung bases. The bones appear grossly intact. IMPRESSION: No acute process. ACT 112: Negative or not required by law. The above report was generated using voice recognition software. It may contain grammatical, syntax or spelling errors. Electronically signed by: Juan Gonzalez M.D. 12/11/2023 7:52 AM Discharge Plan Visit Data Chief Complaint: Shortness of Breath/Dyspnea Stated Complaint: SOB, HYPERGLYCEMIA ED Provider: Ahmet Brown Discharge Problem: Acute hyperglycemia, Shortness of breath Patient Disposition: Admitted As Inpatient Discharge Instructions Interventions: ED Discharge Assessment Last Done: 12/11/23 11:05
[2023-12-11] MEDS: PLASMA-LYTE A 1,000 ML IV ONE (07:29)
[2023-12-11 07:42] LABS: Base Excess VBG -1.7 mEq/L; HCO3 VBG 24 mmol/L; Oxygen Saturation VBG 81.2 %; PCO2 VBG 45 mmHg (38-50); PO2 VBG 47 mmHg; pH VBG 7.34 (7.36-7.41)
--- NOTE | 2023-12-11 07:53 | XRay Report ---
XR chest 1V portable HISTORY: 63 years-old Male Chest pain, nonspecific COMPARISON: 12/04/2023 TECHNIQUE: AP view the chest FINDINGS: Cardiac silhouette is mildly enlarged. No pneumothorax, large pleural effusion or overt pulmonary [place]. Chronic interstitial coarsening at the lung bases. The bones appear grossly intact. IMPRESSION: No acute process. ACT 112: Negative or not required by law. The above report was generated using voice recognition software. It may contain grammatical, syntax o r spelling errors. Electronically signed by: Juan Gonzalez M.D. 12/11/2023 7:52 AM
[2023-12-11 07:57] LABS: Basophils # (auto) 0.11 K/uL (0.00-0.20); Basophils % (auto) 1.2 %; Eosinophils # (auto) 0.34 K/uL (0.00-0.50); Eosinophils % (auto) 3.6 %; Immature Granulocytes # (auto) 0.09 K/uL (0.01-0.20); Lymphocytes # (auto) 2.66 K/uL (1.20-3.40); Lymphocytes % (auto) 28.3 %; Mean Corpuscular Hemoglobin 26.2 pg (25.0-34.0); Mean Corpuscular Hgb Conc 32.6 g/dL (32.0-36.0); Mean Corpuscular Volume 80.5 fL (80.0-100.0); Mean Platelet Volume 9.9 fL (9.4-12.4); Monocytes # (auto) 0.84 K/uL (0.11-0.59); Monocytes % (auto) 8.9 %; Neutrophils # (auto) 5.37 K/uL (1.40-6.50); Platelet Count 272 K/uL (130-400); RDW Coefficient of Variation 14.4 % (11.5-14.5); RDW Standard Deviation 41.8 fL (36.4-46.3); Red Blood Count 5.34 M/uL (4.70-6.10); White Blood Count 9.41 K/ul (4.8-10.8)
[2023-12-11 08:00] LABS: iSTAT Creatinine 0.8 mg/dl (0.6-1.3); iSTAT Hemoglobin 15.3 g/dl (14.0-18.0); iSTAT Ionized Calcium 1.1 mmol/l (1.12-1.32); iSTAT Potassium 4.4 mmol/L (3.3-5.0)
[2023-12-11] MEDS: NovoLIN-R INSULIN PER UNIT CHARGE IV STA (08:18)
[2023-12-11 08:23] LABS: Influenza A virus by PCR Negative (Neg); Influenza B virus by PCR Negative (Neg); RSV by PCR Negative (Neg); SARS CoV2 RNA(COVID-19) Ceph NEGATIVE (Negative)
[2023-12-11 08:49] LABS: D Dimer 200 ug/L FEU (0-500)
[2023-12-11 08:56] LABS: Albumin Globulin Ratio 1.2 (0.9-2); Albumin Level 3.3 gm/dl (3.4-5.0); BUN Creatinine Ratio 37.8 (10-20); Bilirubin,Total 0.3 mg/dl (0.2-1.0); Creatinine Clr Calc Pharmacy 141.4 ml/min; Est GFR (African American) 115.4 ml/min; Est GFR (Non-African American) 99.6 ml/min; Globulin 2.8 gm/dl (2.5-4.0); Potassium 4.8 mmol/L (3.5-5.1); Total Protein 6.1 gm/dl (6.0-8.3); Troponin I High Sensitivity 18.7 pg/ml (0-20)
[2023-12-11] MEDS ORDERED: GLUCOSE 10 TAB/TUBE PO PRN (09:20)
[2023-12-11] MEDS ORDERED: CARBOHYDRATES FOR HYPOGLYCEMIA PO PRN (09:20)
[2023-12-11] MEDS ORDERED: DEXTROSE 50% 50 ML SYRINGE IV PRN (09:20)
[2023-12-11] MEDS ORDERED: GLUCAGON FOR INJ 1 MG VIAL SQ PRN (09:20)
[2023-12-11] MEDS ORDERED: GLUCOSE 40% GEL 15 GM TUBE PO PRN (09:20)
[2023-12-11] MEDS: INSULIN REGULAR 250 UNITS in SODIUM CHLORIDE 0.9% 247.5 ML IV SCH (09:47)
[2023-12-11] MEDS: NovoLIN-R BOLUS FROM BAG IV ONE (09:48)
[2023-12-11] MEDS: SODIUM CHLORIDE 0.9% 500 ML IV ONE (09:54)
--- NOTE | 2023-12-11 10:07 | Electrocardiogram Report ---
Test Reason : Blood Pressure : / mmHG Vent. Rate : 088 BPM Atrial Rate : 088 BPM P-R Int : 192 ms QRS Dur : 078 ms QT Int : 374 ms P-R-T Axes : 068 092 057 degrees QTc Int : 452 ms Sinus rhythm with Premature atrial complexes Rightward axis Low voltage QRS Borderline ECG When compared with ECG of 04-DEC-2023 16:33, No significant change was found Confirmed by Jean Pierre Pedroza ([id number]) on 12/11/2023 10:07:01 AM Referred By: REFERRED SELF Confirmed By:Jean Pierre Pedroza
--- NOTE | 2023-12-11 10:17 | History & Physical Report ---
Date of Service December 11, 2023 Assessment & Plan (1) Acute hyperglycemia: (2) Morbid obesity with BMI of 40.0-44.9, adult: (3) ALEJANDRA (obstructive sleep apnea): (4) DM type 2 (diabetes mellitus, type 2): (5) Hypertension: (6) Peripheral vascular disease: (7) Depression: (8) H/O drug abuse: Plan This is a 63yo M with a PMH of medical noncompliance, uncontrolled type 2 diabetes, hypertension, peripheral vascular disease, BPH, history of IV drug use and other medical problems listed below who presents after calling EMS overnight due to developing shortness of breath and found to have hyperglycemia. Hyperglycemia in setting of uncontrolled DM II Multiple admissions requiring insulin drip in setting of poor compliance Home regimen is Toujeo 100 units BID, Novolog 45 units with breakfast, 50 units with dinner unless his sugar is > 300, in which case he is instructed to use add'l 60 units), metformin 1500mg daily & Jardiance 25mg daily Dexcom stopped working last evening, did not recheck BSG or take additional insulin No evidence of DKA with normal bicarb on BMP, vbg pH 7.34, UA without ketones A1c in Nov 03 11.3 Given NSS, started on insulin drip in ED for BSG >500 Further adjust insulin drip and plan to transition to basal bolus insulin when BSGs improve Appreciate glycemic pharmacy involvement breastfeeding educator consulted Shortness of breath Afebrile, no cough or URI symptoms, Cepheid panel negative for Covid, flu A/B or RSV CXR without acute process Will obtain chest CTA based on general medication noncompliance, h/o poorly controlled HTN, PVD, DM Hypertension Home regimen includes Toprol 50mg BID, lisinopril 20mg, lasix 60mg although states he has not taken any medication in 3 days Given missed AM Toprol and lasix, continue to monitor BP Depression Continue Wellbutrin, Zoloft although question compliance H/O drug abuse Reports last IV drug use was approximately 10 years ago Admits to last smoking methamphetamines 3 weeks ago USD negative ALEJANDRA (obstructive sleep apnea) Noncompliant with cpap Hepatitis C Reports prior failed treatment per patient Previously established with Dr. Arevalo. No current treatment Peripheral vascular disease S/p ablation right leg 12/2022 Obesity BMI 40.8 Lifestyle modifications recommended DVT Ppx: SQ lovenox Code status: FULL PCP: Clarita Fofana Dispo: admitted to med tele Pt was seen and care coordinated with Dr. Mclaughlin. See addendum I spent a total of 75 minutes coordinating, documenting, and providing care for this patient excluding time spent in the performance of separately billed services. History of Present Illness Chief Complaint: SOB, hyperglycemia Primary Care Provider: Willam Fofana DO This is a 63yo M with a PMH of medical noncompliance, uncontrolled type 2 diabetes, hypertension, peripheral vascular disease, BPH, history of IV drug use and other medical problems listed below who presents after calling EMS overnight due to developing shortness of breath. States he woke up every hour feeling short of breath overnight. Denies any fever, chills or recent known respiratory illness. Has been urinating a lot but states that is normal in the setting of his diabetes. EMS obtained a blood sugar in the field that was critically high. States he took his Toujeo and NovoLog as directed yesterday but his Dexcom sensor last evening and he did not replace it so does not know what his blood sugar was prior to going to bed. Is not unusual for him to have a blood sugar over 300 prior to going to bed in which case he takes an additional 60 units of NovoLog. Does state he had a high carb diet yesterday of fried fish, German fries, hash puppies and other carbs. Current insulin regimen is Toujeo 100 units BID, Novolog 45 units with breakfast, 50 units with dinner unless his sugar is over 300, in which case he uses 60 units. Denies any fever, chills, lightheadedness, abdominal pain, nausea, vomiting or diarrhea. No urinary symptoms. Allergies Allergy/AdvReac Type Severity Reaction Status Date / Time permethrin Allergy Intermediate swelling Verified 10/10/23 11:42 shrimp Allergy Intermediate SWELLS Verified 10/10/23 11:42 sulfamethoxazole Allergy Unknown Unknown Verified 10/10/23 11:42 [From Bactrim] trimethoprim [From Bactrim] Allergy Unknown Unknown Verified 10/10/23 11:42 insulin glargine AdvReac Severe CHF Verified 10/10/23 11:42 [From Lantus U-100 Insulin] amoxicillin AdvReac Intermediate HIVES Verified 10/10/23 11:42 clavulanic acid AdvReac Intermediate HIVES Verified 10/10/23 11:42 Home Medications Medication Instructions Recorded Confirmed Type spironolactone 25 mg tablet 25 mg PO DAILY 01/04/19 12/11/23 History Chromium-Cinnamon 1 tab PO DAILY 08/01/22 12/11/23 History aspirin 81 mg tablet,delayed 81 mg PO DAILY 08/01/22 12/11/23 History release bupropion HCl 300 mg 24 hr tablet, 300 mg PO DAILY 08/01/22 12/11/23 History extended release empagliflozin 25 mg tablet 25 mg PO DAILY 08/01/22 12/11/23 History (Jardiance) insulin aspart U-100 100 unit/mL See Rx Instructions .Route .COMPLEX 08/01/22 12/11/23 History (3 mL) subcutaneous pen metformin 750 mg tablet,extended 1,500 mg PO DAILY 08/01/22 12/11/23 History release 24 hr nitroglycerin 0.4 mg sublingual 0.4 mg sublingual DIRECTED PRN 08/01/22 12/11/23 History tablet (Nitrostat) Chest Pain ascorbic acid (vitamin C) 500 mg 1,000 mg PO DAILY 09/21/22 12/11/23 History tablet (Vitamin C) multivitamin with minerals 1 tab PO DAILY 09/21/22 12/11/23 History (Multiple Vitamin-Minerals tablet) furosemide 20 mg tablet (Lasix) 60 mg PO DAILY 10/10/23 12/11/23 History lisinopril 20 mg tablet 20 mg PO QAM 10/10/23 12/11/23 History sertraline 100 mg tablet 100 mg PO QAM 10/10/23 12/11/23 History insulin glargine U-300 conc 300 100 unit subcut BID 10/14/23 12/11/23 History unit/mL (3 mL) subcutaneous pen (Toujeo Max U-300 SoloStar) metoprolol succinate 50 mg 50 mg PO BID 10/14/23 12/11/23 History tablet,extended release 24 hr tamsulosin 0.4 mg capsule 0.4 mg PO DAILY 10/14/23 12/11/23 History Past Med/Surg History Medical History (Updated 12/11/23 @ 12:09 by Ahmet Brown DO) Acute dehydration ALEJANDRA (obstructive sleep apnea) Hyperglycemia Accidental fall tripped over dog bed, hit back of head, checked in the ED poss concussion Dysequilibrium Hepatitis C Diabetes mellitus, type 2 Depression Anxiety Hypertension H/O drug abuse Surgical History History of colonoscopy History of umbilical hernia repair x2 History of tooth extraction History of wisdom tooth extraction History of cardiac cath 03/2015 @ [facility], no stents follows with Dr. Monet Family History Mother Family history of diabetes mellitus Father Family history of diabetes mellitus Other No family history of adverse response to anesthesia Social History Smoking Status: Never smoker Tobacco Type: Cigarettes Cigarettes Per Day: Says he occasionally will smoke a cigar.; Second Hand Exposure: Yes; Do You Dip or Chew Tobacco: No; Hx Alcohol Use: Yes Alcohol type: beer Hx Substance Use: No Preferred Language: Cameroonian Communication Ability: Effective Lens Maker Required: No Beliefs That Will Affect Care: None marital status: Single Current Living Situation: Alone Current Living Situation Comment: lives alone Feels Safe at Home: Yes Assistive Devices: None Review of Systems Review of Systems: At least ten systems reviewed and negative except as noted in the HPI. Results & Data Results & Data Vital Signs (Past 12 Hours) Vital Signs Temp Pulse Pulse Resp BP BP Pulse Ox 12/11/23 07:46 95 12/11/23 07:32 93 12/11/23 07:26 36.9 C 92 H 19 141/80 H 93 12/11/23 07:26 92 H 19 93 12/11/23 07:26 36.9 C 92 H 19 141/80 H 93 12/11/23 07:26 88 O2 Del Method 12/11/23 07:46 Room Air 12/11/23 07:32 Room Air 12/11/23 07:26 Room Air 12/11/23 07:26 Room Air 12/11/23 07:26 Room Air 12/11/23 07:26 Laboratory Results Short CBC 12/11/23 Range/Units 07:35 WBC 9.41 (4.8-10.8) K/ul Hgb 14.0 (14.0-18.0) g/dl Hct 43.0 (42.0-52.0) % Plt Count 272 (130-400) K/uL BMP 12/11/23 07:35 Sodium 129 L Potassium 4.8 Chloride 100 Carbon Dioxide 24 BUN 28 H Creatinine 0.74 Glucose 519 H* Calcium 8.0 L Liver Function 12/11/23 Range/Units 07:35 Total Bilirubin 0.3 (0.2-1.0) mg/dl AST 25 (13-39) U/L ALT 19 (7-52) U/L Alkaline Phosphatase 91 (34-104) U/L Albumin 3.3 L (3.4-5.0) gm/dl Diagnostic Findings Chest X-Ray 12/11/23 07:20 XR chest 1V portable HISTORY: 63 years-old Male Chest pain, nonspecific COMPARISON: 12/04/2023 TECHNIQUE: AP view the chest FINDINGS: Cardiac silhouette is mildly enlarged. No pneumothorax, large pleural effusion or overt pulmonary edema. Chronic interstitial coarsening at the lung bases. The bones appear grossly intact. IMPRESSION: No acute process. ACT 112: Negative or not required by law. The above report was generated using voice recognition software. It may contain grammatical, syntax or spelling errors. Electronically signed by: Juan Gonzalez M.D. 12/11/2023 7:52 AM ECG Additional Comments: EKG reviewed-sinus rhythm with PACs, no significant changes from previous Supervising Physician Co-Signing Physician Notes Patient seen and examined independently. He presents with shortness of breath and uncontrolled type 2 diabetes mellitus Vital stable in the ED; hemodynamically stable. Chest x-ray on admission did not show any acute process CTA chest did not show any PE. Multiple nodules seen; likely benign as they are stable for last 4 years. I have reviewed the advanced practitioner's documentation, and I agree with, and take responsibility for the plan of care I spent a total of 20 minutes coordinating, documenting, and providing care for this patient excluding time spent in the performance of separately billed services. 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
[2023-12-11 10:21] LABS: Magnesium 1.9 mg/dl (1.7-2.4)
[2023-12-11] MEDS: POTASSIUM CHLORIDE CRTAB 20 MEQ TABCR PO STA (10:25)
[2023-12-11 10:49] LABS: Appearance Urine Clear (Clear); Bilirubin Urine Negative (Negative); Blood Urine Negative (Negative); Color Urine Yellow; Glucose Urine UA 3+ (Negative); Ketones Urine Negative (Negative); Leukocyte Esterase Urine Negative (Negative); Nitrite Urine Negative (Negative); Protein Urine Negative (Negative); Specific Gravity Urine 1.031 (1.000-1.030); Urobilinogen Urine Negative (Negative)
[2023-12-11] MEDS: METOPROLOL SUCC 50MG EXT REL TAB PO STA (11:03)
[2023-12-11] MEDS ORDERED: ONDANSETRON INJ 2 MG/ML 2 ML VIAL IV PRN (11:04)
[2023-12-11] MEDS ORDERED: ACETAMINOPHEN 325 MG TAB PO PRN (11:04)
[2023-12-11] MEDS ORDERED: POLYETHYLENE (MIRALAX) 17 GM PACK PO PRN (11:04)
[2023-12-11 11:21] LABS: Amphetamines+Metham, Urine Neg (Neg); Barbiturates, Urine Neg (Neg); Benzodiazepine, Urine Neg (Neg); Cocaine, Urine Neg (Neg); MDMA (Ecstacy), Urine Neg (Neg); Marijuana, Urine Neg (Neg); Methadone, Urine Neg (Neg); Opiate, Urine Neg (Neg); Phencyclidine, Urine Neg (Neg)
[2023-12-11] MEDS ORDERED: PHARMACY GLYCEMIC MGMT CONSULT PRN (12:03)
[2023-12-11] MEDS ORDERED: EMPAGLIFLOZIN 25 MG TAB PO SCH (12:15)
[2023-12-11] MEDS: ENOXAPARIN INJ 40 MG/0.4 ML SYR SQ SCH (12:46)
[2023-12-11] MEDS: FUROSEMIDE 20 MG TAB PO SCH (13:03)
[2023-12-11] MEDS: buPROPion XL 300 MG TABCR PO SCH (13:03)
--- NOTE | 2023-12-11 13:57 | Pharmacy Report ---
Pharmacy Glycemic Short Note 2 - Date of Service December 11, 2023 - Glycemic Short BSG Results (Last 24 hours): 12/11/23 12/11/23 12/11/23 07:19 07:35 07:47 Glucose 519 H* POC Glucose 445 H* POC Glucose (other) 529 H* 12/11/23 12/11/23 12/11/23 09:19 10:56 12:05 Glucose POC Glucose 483 H* 286 H 250 H POC Glucose (other) 12/11/23 13:19 Glucose POC Glucose 252 H POC Glucose (other) OUTPATIENT ANTIDIABETIC REGIMEN: * Toujeo 100 units SQ BID * Novolog 45 units with breakfast, 50 units with dinner (60 units if BSG >300) * Metformin 1500 mg PO daily * Jardiance 25 mg PO Daily HbA1C= 11.3% (10/15/23) ASSESSMENT: 12/11/23: * 63 yo male, PMH of HTN, OR, nonischemic cardiomyopathy, chronic hepatitis C, insulin-requiring DM2, polyneuropathy, ALEJANDRA, history of IV drug abuse, depression, BPH and medical noncompliance, admitted with SOB, hyperglycemia. Pt reports taking his Toujeo and NovoLog yesterday. * Insulin drip protocol started this morning, goal range 150-250mg/dl, drip running at 4.8units/hr currently. * Dr Mclaughlin consulted pharmacy for glycemic control and he would like the patient to transition to SC insulin at this time. * Patient with ADR to insulin glargine on formulary, will use NPH for basal coverage, and start with similar inpatient regimen used in October. PLAN FOR INPATIENT GLYCEMIC CONTROL: * Hold outpatient oral diabetes medications * Insulin infusion - goal range 140-200mg/dl, continue until 1700 to overlap with basal insulin * Basal insulin * NPH 30 units SQ x 1 now, then 15 units HS for BSG 180mg/dl or greater * Further basal dosing in AM * Bolus insulin * NovoLog per scale ACHS or Q6hrs while NPO and overnight at 0000,0400 tonight * Goal Range: Low 110 mg/dL - High 140 mg/dL * Correction Factor: 15 mg/dL/unit * Nutritional / Prandial insulin per carb ratio of 1 unit per 4 grams CHO consumed
[2023-12-11] MEDS: NovoLIN-N (NPH) PER UNIT CHARGE SQ ONE ×2 (14:07→20:59)
[2023-12-11] MEDS: OPTIRAY 320 125ml IV ONE (14:41)
[2023-12-11] MEDS: INSULIN ASPART PER UNIT CHARGE SC SCH ×3 (15:03→23:31)
--- NOTE | 2023-12-11 15:21 | CT Scan Report ---
CT angio chest PE protocol CT DOSE: 895.31 mGy.cm HISTORY: 63 years-old Male with sob. Acute shortness of breath TECHNIQUE: Multiple CTA images of the chest were obtained after the intravenous administration of 118 ml Optiray. Coronal and sagittal MIPS were obtained from the axial data set and were submitted for review. All measurements were obtained according to NASCET criteria. A dose lowering technique was u tilized adhering to the principles of ALARA. COMPARISON: Chest radiograph of same day, CTA chest 05/18/2023, CT abdomen and pelvis 08/14/2020. FINDINGS: CTA: Moderate cardiomegaly. No pericardial effusion. Moderate coronary artery calcifications. No thoracic aortic aneurysm or dissection. No pulmonary emboli identified. CT CHEST: No thyroid nodule or pathologic lymphadenopathy identified. No pneumothorax, pleural effusion or over t pulmonary edema. Mild dependent subsegmental bibasilar atelectasis. Stable likely benign 8 mm subpl eural nodular density within the right lower lobe on image 109. Patchy nodular opacities in lung base s are again noted and appear stable from the 2019 exam measuring up to 8 mm within the left lower lob e. Subpleural nodular density left upper lobe on image 157 measuring 6 mm is also unchanged. Mild nonspecific distal esophageal wall thickening. The liver appears prominent in size. Unremarkable soft tissues with left chest wall varicosities. No acute fracture identified. IMPRESSION: 1. No pulmonary emboli identified. 2. Subcentimeter reticulonodular opacities of the lung bases demonstrate at least 4 year stability an d are likely benign. Additional scattered subcentimeter subpleural predominant nodular foci within th e lungs are stable from 05/18/2023 and also favored to be benign. 3. No lymphadenopathy. ACT 112: Negative or not required by law. The above report was generated using voice recognition software. It may contain grammatical, syntax o r spelling errors. Electronically signed by: Juan Gonzalez M.D. 12/11/2023 3:18 PM
[2023-12-11] MEDS: SERTRALINE HCL 100 MG TABLET PO SCH (16:15)
[2023-12-11] MEDS: METOPROLOL SUCC 50MG EXT REL TAB PO SCH (21:04)
[2023-12-11] MEDS: DKA GOAL RANGE 150-250 mg/dl ONE (22:24)
[2023-12-11] MEDS: STAT IV Infusion **Titration per Protocol STA (22:25)
[2023-12-12 06:08] LABS: Hematocrit (blood only) 44.9 % (42.0-52.0); Hemoglobin 14.7 g/dl (14.0-18.0); Mean Corpuscular Hemoglobin 26.1 pg (25.0-34.0); Mean Corpuscular Hgb Conc 32.7 g/dL (32.0-36.0); Mean Corpuscular Volume 79.8 fL (80.0-100.0); Platelet Count 311 K/uL (130-400); RDW Coefficient of Variation 14.6 % (11.5-14.5); Red Blood Count 5.63 M/uL (4.70-6.10); White Blood Count 12.08 K/ul (4.8-10.8)
[2023-12-12 06:24] LABS: Albumin Globulin Ratio 1.2 (0.9-2); Albumin Level 3.2 gm/dl (3.4-5.0); Bilirubin,Total 0.5 mg/dl (0.2-1.0); Calcium 8.4 mg/dl (8.6-10.3); Est GFR (African American) 116.7 ml/min; Est GFR (Non-African American) 100.7 ml/min; Globulin 2.7 gm/dl (2.5-4.0); Potassium 4.3 mmol/L (3.5-5.1); Total Protein 5.9 gm/dl (6.0-8.3)
[2023-12-12] MEDS: TAMSULOSIN HCL 0.4 MG CAP PO SCH (08:52)
[2023-12-12] MEDS: ASPIRIN 81 MG ECTAB PO SCH (08:53)
[2023-12-12] MEDS: CEROVITE ADV FORMULA TAB PO SCH (08:53)
[2023-12-12] MEDS: ASCORBIC ACID 500 MG TAB PO SCH (08:53)
[2023-12-12] MEDS: SPIRONOLACTONE 25 MG TAB PO SCH (08:53)
[2023-12-12] MEDS: lisinopril 20 MG TAB PO SCH (08:53)
[2023-12-12] MEDS: NovoLIN-N (NPH) PER UNIT CHARGE SQ SCH (09:17)
--- NOTE | 2023-12-12 11:38 | Discharge Summary ---
Date of Service December 12, 2023 Admission HPI Per Admitting Provider This is a 63yo M with a PMH of medical noncompliance, uncontrolled type 2 diabetes, hypertension, peripheral vascular disease, BPH, history of IV drug use and other medical problems listed below who presents after calling EMS overnight due to developing shortness of breath. States he woke up every hour feeling short of breath overnight. Denies any fever, chills or recent known respiratory illness. Has been urinating a lot but states that is normal in the setting of his diabetes. EMS obtained a blood sugar in the field that was critically high. States he took his Toujeo and NovoLog as directed yesterday but his Dexcom sensor last evening and he did not replace it so does not know what his blood sugar was prior to going to bed. Is not unusual for him to have a blood sugar over 300 prior to going to bed in which case he takes an additional 60 units of NovoLog. Does state he had a high carb diet yesterday of fried fish, Kinyarwanda fries, hash puppies and other carbs. Current insulin regimen is Toujeo 100 units BID, Novolog 45 units with breakfast, 50 units with dinner unless his sugar is over 300, in which case he uses 60 units. Denies any fever, chills, lightheadedness, abdominal pain, nausea, vomiting or diarrhea. No urinary symptoms. Admission Exam Per Admitting Provider Constitutional: Alert oriented x 3; appears tired Respiratory: Patient breast entry in bilateral bases Cardiovascular: RRR, no murmur, no edema Vessels: no JVD or carotid bruit Chest: normal inspection of chest Abdomen: normal bowel sounds, soft, nontender, no hepatosplenomegaly Musculoskeletal: no cyanosis or clubbing, extremities motor strength 5/5 Skin: no rashes, warm and dry normal turgor Neurologic: PERRL, EOMI, accommodation nl, no face palsy, no dysarthria CN's II- XI intact bilaterally and moves all extremities Psychiatric: A+Ox3, euthymic affect Principal Diagnosis Uncontrolled type 2 diabetes mellitus Discharge Exam Constitutional: Alert oriented x 3; not in distress. Respiratory: Bilateral clear breath sounds Cardiovascular: RRR, no murmur, no edema Vessels: no JVD or carotid bruit Chest: normal inspection of chest Abdomen: normal bowel sounds, soft, nontender, no hepatosplenomegaly Musculoskeletal: no cyanosis or clubbing, extremities motor strength 5/5 Skin: no rashes, warm and dry normal turgor Neurologic: PERRL, EOMI, accommodation nl, no face palsy, no dysarthria CN's II- XI intact bilaterally and moves all extremities Psychiatric: A+Ox3, euthymic affect Discharge Data Allergies Allergy/AdvReac Type Severity Reaction Status Date / Time permethrin Allergy Intermediate swelling Verified 10/10/23 11:42 shrimp Allergy Intermediate SWELLS Verified 10/10/23 11:42 sulfamethoxazole Allergy Unknown Unknown Verified 10/10/23 11:42 [From Bactrim] trimethoprim [From Bactrim] Allergy Unknown Unknown Verified 10/10/23 11:42 insulin glargine AdvReac Severe CHF Verified 10/10/23 11:42 [From Lantus U-100 Insulin] amoxicillin AdvReac Intermediate HIVES Verified 10/10/23 11:42 clavulanic acid AdvReac Intermediate HIVES Verified 10/10/23 11:42 Consultations 12/11/23 10:03 ED Decision to Admit Stat Ordered Studies 12/11/23 12:16 CT angio chest PE protocol Routine Hospital Course (1) Acute hyperglycemia: (2) Morbid obesity with BMI of 40.0-44.9, adult: (3) ALEJANDRA (obstructive sleep apnea): (4) DM type 2 (diabetes mellitus, type 2): (5) Hypertension: (6) Peripheral vascular disease: (7) Depression: (8) H/O drug abuse: Plan This is a 63yo M with a PMH of medical noncompliance, uncontrolled type 2 diabetes, hypertension, peripheral vascular disease, BPH, history of IV drug use and other medical problems listed below who presents after calling EMS overnight due to developing shortness of breath and found to have hyperglycemia. Hyperglycemia in setting of uncontrolled DM II Multiple admissions requiring insulin drip in setting of poor compliance Home regimen is Toujeo 100 units BID, Novolog 45 units with breakfast, 50 units with dinner unless his sugar is > 300, in which case he is instructed to use add'l 60 units), metformin 1500mg daily & Jardiance 25mg daily Dexcom stopped working last evening, did not recheck BSG or take additional insulin A1c in Nov 03 11.3 During the hospitalization, patient was started on IV insulin. He was transitioned over to subcu insulin after his blood glucose improved Patient was switched over to his home insulin regimen. His blood glucose was overall improved during the stay. Patient was instructed to continue his insulin regimen, follow-up with diabetic clinic Shortness of breath Pneumonia ruled out Afebrile, no cough or URI symptoms, Cepheid panel negative for Covid, flu A/B or RSV CXR without acute process CTA chest personally reviewed; no PE. Subcentimeter reticulonodular opacities on the basis that are stable. Patient was recommended to follow-up with PCP and obtain stress test as CTA chest showed moderate coronary artery calcification Two-step oxygen evaluation was done; patient did not need oxygen on exertion. No other medication changes were done. Please note the above document was generated using voice recognition software. It may contain grammatical, syntax or spelling errors. Any formal questions or concerns about the content, text or information contained within the body of this dictation should be directly addressed to the provider for clarification Total Time Total Time Spent Total Time Spent (In Minutes): 45 Total Time Includes: Examination of the Patient, Discharge Planning, Medication Reconciliation, Communication With Other Providers and Other Discharge Plan Discharge Items Patient Disposition: Home - Self-Care Reason For Visit: SOB, HYPERGLYCEMIA Discharge Diagnosis: Uncontrolled type 2 diabetes mellitus Activity: Resume your previous activity Non-emergency contact: Primary Care Provider Call non-emergency contact if: you have any medication questions and your symptoms worsen Follow-up/Referrals: Willam Fofana, [Primary Care Provider] - Diet: Carb Consistent or DM2 Addtl Attending Provider Instructions: You were admitted to the hospital due to shortness of breath and high blood glucose. You underwent CT of the chest which did not show any pneumonia or blood clots. Your CT of the chest showed calcification of the heart vessels. Please follow- up with your primary care doctor to get a stress test as outpatient. The CT scan also showed possible reflux. You are prescribed Protonix once a day to be taken in AM. As per your CAT scan, there are multiple nodules of the lung bases which have been stable. Please follow-up with your primary care doctor regarding obtaining CT chest in the future. Please get referral from your primary care doctor to diabetic clinic Pending Studies at Discharge: No Stand-Alone Forms: My [employer], Smoking Cessation Medications and DC Order Prescriptions: New pantoprazole [Protonix] 40 mg tablet,delayed release (DR/EC) 40 mg PO DAILY Qty: 30 0RF Continued spironolactone 25 mg Tablet 25 mg PO DAILY aspirin 81 mg Tablet,Delayed Release (Dr/Ec) 81 mg PO DAILY nitroglycerin [Nitrostat] 0.4 mg Tablet, Sublingual 0.4 mg sublingual DIRECTED PRN (Reason: Chest Pain) insulin aspart U-100 100 unit/mL (3 mL) insulin pen See Rx Instructions .ROUTE .COMPLEX Rx Instructions: 45 UNITS WITH BREAKFAST, 50 UNITS WITH DINNER DIRECTED..plus sliding scale: max 120 units daily metformin 750 mg Tablet Extended Release 24 Hr 1,500 mg PO DAILY bupropion HCl 300 mg tablet extended release 24 hr 300 mg PO DAILY Jardiance 25 mg tablet 25 mg PO DAILY Chromium-Cinnamon 1 tab PO DAILY ascorbic acid (vitamin C) [Vitamin C] 500 mg Tablet 1,000 mg PO DAILY Multiple Vitamin-Minerals Tablet 1 tab PO DAILY tamsulosin 0.4 mg capsule 0.4 mg PO DAILY insulin glargine U-300 conc [Toujeo Max U-300 SoloStar] 300 unit/mL (3 mL) i nsulin pen 100 unit SUBCUT BID metoprolol succinate 50 mg tablet extended release 24 hr 50 mg PO BID lisinopril 20 mg tablet 20 mg PO QAM sertraline 100 mg tablet 100 mg PO QAM furosemide [Lasix] 20 mg Tablet 60 mg PO DAILY Discharge Orders: Discharge Order (Routine); Ordered 12/12/23 Ordered By: Sim Mclaughlin Admission Data Admit Date/Time: 12/11/23 10:20 Attending Provider: Sim cMlaughlin Admit Provider: Sim Mclaughlin Primary Care Provider: Willam Fofana Other Providers: Sim Mclaughlin
[2023-12-12] MEDS ORDERED: NovoLIN-N (NPH) PER UNIT CHARGE SQ SCH (17:30)
== END 2023-12-12 12:03 | disposition home or self-care (01) | DRG 638 ==
LOC: ED 07:14 → EDINP 10:20 → 2N 11:05

== ENCOUNTER 2024-03-22 07:39 | Inpatient (IN) ==
--- NOTE | 2024-03-22 08:20 | Emergency Department Note ---
Impression & Plan Generalized weakness, Ambulatory dysfunction, Uncontrolled type 2 diabetes mellitus with hyperglycemia ED Provider Note HISTORY OF PRESENT ILLNESS: Patient is a 63-year-old male presenting with gait instability. Patient reports that he just does not feel right. Reports that he has not been feeling well for the last few days. Reports that he woke up around 4 AM today and was having difficulties walking and got in his car to drive to the hospital. He states he sat in the emergency department parking lot for a while and then decided to go home instead. However, when he went home he decided he really needs to be evaluated and came back to the ER. He denies any chest pain or shortness of breath. Denies any DVT or PE history. Reports that for the last 3 to 4 days he has been laying in bed and only getting up to urinate because he feels so unwell. Denies any lightheadedness or dizziness. Denies any recent falls or head injury. Denies any chiropractic manipulation of his neck. He is not on any anticoagulation. Patient has no notable facial droop, despite nurses documentation of so. Patient reports he feels numb and tingly all over. Denies any new changes in vision. 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 ROS: as above PHYSICAL EXAM: Constitutional: Patient appears in no acute distress. HENT: Head: Normocephalic and atraumatic. Eyes: EOMI, PERRL Mouth/Throat: Mucous membranes moist. Neck: Trachea midline. Neck supple. Cardiovascular: RRR, No murmurs, rubs or gallops. Intact distal pulses. Pulmonary/Chest: No respiratory distress. Breath sounds clear and equal bilaterally. No wheezes or rales. Abdominal: Abdomen soft, no tenderness, rebound or guarding. Musculoskeletal: No edema, tenderness or deformity noted. Skin: Warm and dry. No rash, erythema, pallor or cyanosis Psychiatric: Appropriate mood and affect for situation. Neurological: Alert and keenly responsive. Facies symmetric. Able to raise eyebrows, close eyes, smile, puff mouth, stick out tongue, move tongue left and right and raise palate symmetrically. Able to shrug shoulders. PERRLA. SILT to forehead below eye and at jawline. Can hear soft noise bilaterally. Patient has poor ifllyt-ov-neuy in the bilateral upper extremities. Good jxuy-wy-cmeu bilaterally. Strength 5/5 in bilateral upper and lower extremities. SILT throughout bilateral upper and lower extremities. MDM: - Vitals signs showed hypertension and tachycardia - History obtained via patient. History as above. - Chronic conditions affecting care: obesity; ALEJANDRA; nonischemic cardiomyopathy; MD-2; HTN; hepatitis C - Differential diagnoses include, but are not limited to: CVA; intracranial hemorrhage; dehydration; electrolyte abnormality; DKA; ACS; pneumonia; UTI - Order placed for continuous cardiac monitoring. At this time, monitor showed rate of 100 bpm with normal sinus rhythm, per my interpretation. - External medical records reviewed. Discharge summary dated 12/12/2023 was reviewed. Patient was admitted at that time for uncontrolled type 2 diabetes and shortness of breath. He was found to have a blood sugar of over 300. He has noted to be noncompliant with his medications. - EKG interpreted by myself showed normal sinus rhythm. Rate 90 bpm. QT 372. No acute ischemic changes. - Laboratory workup interpreted by myself showed normal WBC; normal PT/INR; stable electrolytes; hyperglycemia (glucose 473); normal anion gap; normal troponin; elevated lipase (115); normal BNP - CXR negative for pneumonia, per my interpretation - UA negative for infection. Noted to have significant glucosuria. - CT head wo contrast negative for acute pathology - CTA head/neck negative for acute pathology - Patient was not stroke alerted. His symptoms started days ago, so outside of TNK window. CTs negative for evidence of large vessel occlusion. - Patient given 1L NS. Ordered 10 units insulin for hyperglycemia. - UDS negative - Viral respiratory panel negative - Patient's symptoms are likely due to his uncontrolled type 2 diabetes. Hemoglobin A1c added to workup. However, patient is very unsteady on his feet and does not feel comfortable going home. - Discussion was had with case monitor about patient's case and need for admission - Hospitalist consulted for admission - [facility] to [facility] for further evaluation and management. ASSESSMENT AND PLAN: Diagnosis: generalized weakness; ambulatory dysfunction; uncontrolled type 2 diabetes mellitus with hyperglycemia Plan: admit Past Med/Surg History Problem List (Updated 03/22/24 @ 11:58 by Jessica Mccoy MD) Uncontrolled type 2 diabetes mellitus with hyperglycemia (Acute) Ambulatory dysfunction (Acute) Generalized weakness (Acute) Acute hyperglycemia (Acute) Morbid obesity with BMI of 40.0-44.9, adult Acute hyperglycemia (Acute) ALEJANDRA (obstructive sleep apnea) Hyperglycemia Nonischemic cardiomyopathy (Chronic) "prior EF 30% per Epic records. echo 02/2015- EF 40-45%" DM type 2 (diabetes mellitus, type 2) (Chronic) H/O TB (tuberculosis) (Chronic) H/O toxoplasmosis (Chronic) Hepatitis C (Chronic) Hypertension (Chronic) Colon polyp (Chronic) "TVA polyp on colonoscopy 09/2014" H/O colonoscopy (Chronic) "11/2015- diverticulosis" S/P cardiac cath (Chronic) "for abnormal stress test. cath 03/18/2015-essentially normal coronaries with no obstructive disease " Colon polyp Confusion (Acute) Hyperglycemia due to type 2 diabetes mellitus (Acute) DVT prophylaxis Polyneuropathy Peripheral vascular disease Depression Bilateral cellulitis of lower leg (Acute) Fatigue (Acute) Encephalopathy Hypercapnic respiratory failure Varicose veins of bilateral lower extremities with other complications Morbid obesity H/O drug abuse Medical History (Updated 03/22/24 @ 11:58 by Jessica Mccoy MD) Shortness of breath Acute dehydration Accidental fall tripped over dog bed, hit back of head, checked in the ED poss concussion Dysequilibrium Hepatitis C Diabetes mellitus, type 2 Depression Anxiety Hypertension Surgical History (Updated 01/04/24 @ 00:09 by Kehinde Zelaya) History of colonoscopy History of umbilical hernia repair x2 History of tooth extraction History of wisdom tooth extraction History of cardiac cath 03/2015 @ [facility], no stents follows with Dr. Monet Family History Mother Family history of diabetes mellitus Father Family history of diabetes mellitus Other No family history of adverse response to anesthesia Social History Smoking Status: Never smoker Tobacco Type: Cigarettes Cigarettes Per Day: Says he occasionally will smoke a cigar.; Second Hand Exposure: Yes; Do You Dip or Chew Tobacco: No; Hx Alcohol Use: Yes Alcohol type: beer Hx Substance Use: No Preferred Language: Danish Communication Ability: Effective Program Facilitator Required: No Beliefs That Will Affect Care: None marital status: Single Current Living Situation: Alone Current Living Situation Comment: lives alone Feels Safe at Home: Yes Assistive Devices: None Allergies Allergies Allergy/AdvReac Type Severity Reaction Status Date / Time shellfish derived Allergy Severe Swelling Unverified 03/22/24 10:34 permethrin Allergy Intermediate swelling Verified 03/22/24 10:34 shrimp Allergy Intermediate SWELLS Verified 03/22/24 10:34 sulfamethoxazole Allergy Unknown Unknown Verified 03/22/24 10:34 [From Bactrim] trimethoprim [From Bactrim] Allergy Unknown Unknown Verified 03/22/24 10:34 insulin glargine AdvReac Severe CHF Verified 03/22/24 10:34 [From Lantus U-100 Insulin] amoxicillin AdvReac Intermediate HIVES Verified 03/22/24 10:34 clavulanic acid AdvReac Intermediate HIVES Verified 03/22/24 10:34 Home Meds Home Medications Medication Instructions Recorded Confirmed spironolactone 25 mg tablet 25 mg PO DAILY 01/04/19 03/22/24 aspirin 81 mg tablet,delayed 81 mg PO DAILY 08/01/22 03/22/24 release bupropion HCl 300 mg 24 hr tablet, 300 mg PO DAILY 08/01/22 03/22/24 extended release empagliflozin 25 mg tablet 25 mg PO DAILY 08/01/22 03/22/24 (Jardiance) insulin aspart U-100 100 unit/mL 60 unit subcut BIDWMEAL 08/01/22 03/22/24 (3 mL) subcutaneous pen metformin 750 mg tablet,extended 1,500 mg PO DAILY 08/01/22 03/22/24 release 24 hr ascorbic acid (vitamin C) 500 mg 500 mg PO DAILY 09/21/22 03/22/24 tablet (Vitamin C) multivitamin with minerals 1 tab PO DAILY 09/21/22 03/22/24 (Multiple Vitamin-Minerals tablet) furosemide 20 mg tablet (Lasix) 60 mg PO DAILY 10/10/23 03/22/24 lisinopril 20 mg tablet 20 mg PO QAM 10/10/23 03/22/24 sertraline 100 mg tablet 100 mg PO QAM 10/10/23 03/22/24 insulin glargine U-300 conc 300 100 unit subcut BID 10/14/23 03/22/24 unit/mL (3 mL) subcutaneous pen (Toujeo Max U-300 SoloStar) metoprolol succinate 50 mg 50 mg PO BID 10/14/23 03/22/24 tablet,extended release 24 hr tamsulosin 0.4 mg capsule 0.4 mg PO DAILY 10/14/23 03/22/24 Results & Data (ED) Vital Signs Vital Signs - 24 hr 03/22/24 07:43 03/22/24 08:06 03/22/24 08:11 Temperature 36.4 C L Temperature Source Temporal Artery Scan Pulse Rate 91 H 94 H 94 H Pulse Rate from SpO2 Sensor Pulse Rhythm Regular Regular Pulse Strength Normal Respiratory Rate 20 20 Respiratory Effort / Characteristics Non-Labored Spontaneous Respiratory Depth Normal Respiratory Pattern Regular Blood Pressure 180/91 H Blood Pressure Mean 120 Blood Pressure Position Sitting Pulse Oximetry 100 100 Oxygen Delivery Method Room Air Room Air Sepsis Recent Fever Within 48 Hours No Sepsis New/Unexplained Change in Mental Status No Sepsis Action Taken by Nursing No Action Required 03/22/24 08:45 03/22/24 09:02 03/22/24 10:05 Temperature Temperature Source Pulse Rate 99 H 101 H 100 H Pulse Rate from SpO2 Sensor 89 98 H Pulse Rhythm Pulse Strength Respiratory Rate 18 22 17 Respiratory Effort / Characteristics Respiratory Depth Respiratory Pattern Blood Pressure 154/98 H 165/86 H 152/81 H Blood Pressure Mean 116 112 104 Blood Pressure Position Pulse Oximetry 96 96 96 Oxygen Delivery Method Sepsis Recent Fever Within 48 Hours Sepsis New/Unexplained Change in Mental Status Sepsis Action Taken by Nursing 03/22/24 10:30 03/22/24 11:00 Temperature Temperature Source Pulse Rate 101 H 90 Pulse Rate from SpO2 Sensor 90 Pulse Rhythm Pulse Strength Respiratory Rate 20 20 Respiratory Effort / Characteristics Respiratory Depth Respiratory Pattern Blood Pressure 147/97 H 162/70 H Blood Pressure Mean 110 100 Blood Pressure Position Pulse Oximetry 95 94 Oxygen Delivery Method Sepsis Recent Fever Within 48 Hours Sepsis New/Unexplained Change in Mental Status Sepsis Action Taken by Nursing Laboratory Data 03/22/24 08:00 03/22/24 08:00 Lab Results 03/22/24 03/22/24 03/22/24 Range/Units 07:46 08:00 08:17 WBC 10.56 (4.8-10.8) K/ul RBC 5.94 (4.70-6.10) M/uL Hgb 16.0 (14.0-18.0) g/dl POC Hgb 16.0 (14.0-18.0) g/dl Hct 48.7 (42.0-52.0) % POC Hct 47 (42-52) % MCV 82.0 (80.0-100.0) fL MCH 26.9 (25.0-34.0) pg MCHC 32.9 (32.0-36.0) g/dL RDW Std Deviation 45.7 (36.4-46.3) fL RDW Coeff of Marc 15.4 H (11.5-14.5) % Plt Count 259 (130-400) K/uL MPV 9.5 (9.4-12.4) fL Immature Gran % (Auto) 1.1 % Neut % (Auto) 61.3 % Lymph % (Auto) 27.0 % [place] % (Auto) 6.6 % Eos % (Auto) 2.9 % Baso % (Auto) 1.1 % Neut # (Auto) 6.46 (1.40-6.50) K/uL Lymph # (Auto) 2.85 (1.20-3.40) K/uL [place] # (Auto) 0.70 H (0.11-0.59) K/uL Eos # (Auto) 0.31 (0.00-0.50) K/uL Baso # (Auto) 0.12 (0.00-0.20) K/uL Immature Gran # (Auto) 0.12 (0.01-0.20) K/uL PT 10.1 (9.0-12.0) Seconds INR 0.9 (0.9-1.1) VBG pH (7.36-7.41) VBG pCO2 (38-50) mmHg VBG pO2 mmHg VBG HCO3 mmol/L VBG O2 Saturation % VBG Base Excess mEq/L POC Sodium 137 (135-144) mmol/L Sodium 137 (136-145) mmol/L POC Potassium 4.2 (3.3-5.0) mmol/L Potassium 4.4 (3.5-5.1) mmol/L POC Chloride 101 (101-112) mmol/L Chloride 102 (98-107) mmol/L Carbon Dioxide 31 (21-32) mmol/L POC Total CO2 29 (24-31) mmol/L Anion Gap 4 (3-11) POC Anion Gap 13.0 L (16-25) mmol/L POC BUN 19 H (7-18) mg/dl BUN 20 (6-23) mg/dl Creatinine 0.89 (0.6-1.4) mg/dl POC Creatinine 0.8 (0.6-1.3) mg/dl Est Cr Clr Drug Dosing 119.8 ml/min Est GFR ( Amer) 107.0 ml/min Est GFR (Non-Af Amer) 92.3 ml/min BUN/Creatinine Ratio 22.5 H (10-20) Glucose 473 H* (70-99(Fasting)) mg/dl POC Glucose 327 H* (70-99) mg/dl POC Glucose (other) 458 H* (70-99) mg/dl Estimat Average Glucose 269 mg/dl Hemoglobin A1c 11.0 H (4.5-5.6) % Calcium 9.1 (8.6-10.3) mg/dl POC Ioniz Calcium Olga 1.17 (1.12-1.32) mmol/l Magnesium 1.9 (1.7-2.4) mg/dl Total Bilirubin 0.6 (0.2-1.0) mg/dl AST 27 (13-39) U/L ALT 28 (7-52) U/L Alkaline Phosphatase 83 (34-104) U/L Troponin I High Sens 13.0 (0-20) pg/ml B-Natriuretic Peptide (0-100) pg/ml Total Protein 6.5 (6.0-8.3) gm/dl Albumin 3.4 (3.4-5.0) gm/dl Globulin 3.1 (2.5-4.0) gm/dl Albumin/Globulin Ratio 1.1 (0.9-2) Lipase 115 H (11-82) U/L Urine Color Urine Appearance (Clear) Urine pH (4.5-7.5) Ur Specific [place] (1.000-1.030) Urine Protein (Negative) Urine Glucose (UA) (Negative) Urine Ketones (Negative) Urine Blood (Negative) Urine Nitrite (Negative) Urine Bilirubin (Negative) Urine Urobilinogen (Negative) Ur Leukocyte Esterase (Negative) Urine Opiates Screen (Neg) Ur Methadone, Qual (Neg) Urine Fentanyl Screen (Neg) Urine Barbiturates (Neg) Ur Phencyclidine (PCP) (Neg) U Amphetamin/Meth Scrn (Neg) MDMA (Ecstasy) Screen (Neg) U Benzodiazepines Scrn (Neg) Ur Cocaine Metabolite (Neg) U Marijuana (THC) Screen (Neg) Adenovirus (PCR) (NotDetected) B. pertussis DNA (PCR) (NotDetected) B.parapertussis DNA PCR (NotDetected) Lyme Disease Screen Negative (Negative) C. pneumoniae DNA (PCR) (NotDetected) Coronavirus OC43 (PCR) (NotDetected) Coronavirus HKU1 (PCR) (NotDetected) Coronavirus 229E (PCR) (NotDetected) SARS-CoV-2 (PCR) (NotDetected) Coronavirus NL63 (PCR) (NotDetected) Human Metapneumovir PCR (NotDetected) Influenza Type A (PCR) (NotDetected) Influenza Type B (PCR) (NotDetected) M. pneumoniae (PCR) (NotDetected) Parainfluenza 1 (PCR) (NotDetected) Parainfluenza 2 (PCR) (NotDetected) Parainfluenza 3 (PCR) (NotDetected) Parainfluenza 4 (PCR) (NotDetected) RSV (PCR) (NotDetected) Entero/Rhino (PCR) (NotDetected) 03/22/24 03/22/24 03/22/24 Range/Units 09:29 10:46 11:47 WBC (4.8-10.8) K/ul RBC (4.70-6.10) M/uL Hgb (14.0-18.0) g/dl POC Hgb (14.0-18.0) g/dl Hct (42.0-52.0) % POC Hct (42-52) % MCV (80.0-100.0) fL MCH (25.0-34.0) pg MCHC (32.0-36.0) g/dL RDW Std Deviation (36.4-46.3) fL RDW Coeff of Marc (11.5-14.5) % Plt Count (130-400) K/uL MPV (9.4-12.4) fL Immature Gran % (Auto) % Neut % (Auto) % Lymph % (Auto) % [place] % (Auto) % Eos % (Auto) % Baso % (Auto) % Neut # (Auto) (1.40-6.50) K/uL Lymph # (Auto) (1.20-3.40) K/uL [place] # (Auto) (0.11-0.59) K/uL Eos # (Auto) (0.00-0.50) K/uL Baso # (Auto) (0.00-0.20) K/uL Immature Gran # (Auto) (0.01-0.20) K/uL PT (9.0-12.0) Seconds INR (0.9-1.1) VBG pH 7.42 H (7.36-7.41) VBG pCO2 38 (38-50) mmHg VBG pO2 60 mmHg VBG HCO3 25 mmol/L VBG O2 Saturation 92.0 % VBG Base Excess 0.3 mEq/L POC Sodium (135-144) mmol/L Sodium (136-145) mmol/L POC Potassium (3.3-5.0) mmol/L Potassium (3.5-5.1) mmol/L POC Chloride (101-112) mmol/L Chloride (98-107) mmol/L Carbon Dioxide (21-32) mmol/L POC Total CO2 (24-31) mmol/L Anion Gap (3-11) POC Anion Gap (16-25) mmol/L POC BUN (7-18) mg/dl BUN (6-23) mg/dl Creatinine (0.6-1.4) mg/dl POC Creatinine (0.6-1.3) mg/dl Est Cr Clr Drug Dosing ml/min Est GFR ( Amer) ml/min Est GFR (Non-Af Amer) ml/min BUN/Creatinine Ratio (10-20) Glucose (70-99(Fasting)) mg/dl POC Glucose 401 H* (70-99) mg/dl POC Glucose (other) (70-99) mg/dl Estimat Average Glucose mg/dl Hemoglobin A1c (4.5-5.6) % Calcium (8.6-10.3) mg/dl POC Ioniz Calcium Olga (1.12-1.32) mmol/l Magnesium (1.7-2.4) mg/dl Total Bilirubin (0.2-1.0) mg/dl AST (13-39) U/L ALT (7-52) U/L Alkaline Phosphatase (34-104) U/L Troponin I High Sens (0-20) pg/ml B-Natriuretic Peptide 52 (0-100) pg/ml Total Protein (6.0-8.3) gm/dl Albumin (3.4-5.0) gm/dl Globulin (2.5-4.0) gm/dl Albumin/Globulin Ratio (0.9-2) Lipase (11-82) U/L Urine Color Yellow Urine Appearance Clear (Clear) Urine pH 5.5 (4.5-7.5) Ur Specific [place] 1.041 H (1.000-1.030) Urine Protein Negative (Negative) Urine Glucose (UA) 3+ H (Negative) Urine Ketones Negative (Negative) Urine Blood Negative (Negative) Urine Nitrite Negative (Negative) Urine Bilirubin Negative (Negative) Urine Urobilinogen Negative (Negative) Ur Leukocyte Esterase Negative (Negative) Urine Opiates Screen Neg (Neg) Ur Methadone, Qual Neg (Neg) Urine Fentanyl Screen Neg (Neg) Urine Barbiturates Neg (Neg) Ur Phencyclidine (PCP) Neg (Neg) U Amphetamin/Meth Scrn Neg (Neg) MDMA (Ecstasy) Screen Neg (Neg) U Benzodiazepines Scrn Neg (Neg) Ur Cocaine Metabolite Neg (Neg) U Marijuana (THC) Screen Neg (Neg) Adenovirus (PCR) Not Detected (NotDetected) B. pertussis DNA (PCR) Not Detected (NotDetected) B.parapertussis DNA PCR Not Detected (NotDetected) Lyme Disease Screen (Negative) C. pneumoniae DNA (PCR) Not Detected (NotDetected) Coronavirus OC43 (PCR) Not Detected (NotDetected) Coronavirus HKU1 (PCR) Not Detected (NotDetected) Coronavirus 229E (PCR) Not Detected (NotDetected) SARS-CoV-2 (PCR) Not Detected (NotDetected) Coronavirus NL63 (PCR) Not Detected (NotDetected) Human Metapneumovir PCR Not Detected (NotDetected) Influenza Type A (PCR) Not Detected (NotDetected) Influenza Type B (PCR) Not Detected (NotDetected) M. pneumoniae (PCR) Not Detected (NotDetected) Parainfluenza 1 (PCR) Not Detected (NotDetected) Parainfluenza 2 (PCR) Not Detected (NotDetected) Parainfluenza 3 (PCR) Not Detected (NotDetected) Parainfluenza 4 (PCR) Not Detected (NotDetected) RSV (PCR) Not Detected (NotDetected) Entero/Rhino (PCR) Not Detected (NotDetected) Administered Medications Discontinued Medications Sodium Chloride (Nss) 1,000 mls @ 999 mls/hr IV .Q1H1M ONE Stop: 03/22/24 10:33 Last Admin: 03/22/24 09:38 Dose: 999 mls/hr Documented By: DAFNE Sodium Chloride (Nss) 1,000 mls @ 999 mls/hr IV .Q1H1M ONE Stop: 03/22/24 11:42 Last Admin: 03/22/24 10:54 Dose: 999 mls/hr Documented By: DAFNE Insulin Human Regular (Novolin-R Insulin Per Unit Charge) 10 units IV NOW STA Stop: 03/22/24 10:15 Last Admin: 03/22/24 10:31 Dose: 10 units Documented By: DAFNE Co-signed By: JUSTICE Ioversol (Optiray 320 125ml) 112 ml IV ONCE ONE Stop: 03/22/24 08:32 Last Admin: 03/22/24 08:31 Dose: 112 ml Documented By: SUKHWINDER Imaging Data Radiologist's Impression: Chest X-Ray 03/22/24 07:51 XR chest 1V portable CLINICAL HISTORY: Confusion. COMPARISON STUDY: Chest radiograph and chest CT December 11, 2023. FINDINGS: Lung volumes are normal. Lungs are clear. There is no pneumothorax or pleural effusion. Cardiac size is stable. Mediastinal contours are normal. There is no evidence for pulmonary edema. IMPRESSION: No acute cardiopulmonary findings. No significant change in appearance of the chest. ACT 112: Negative or not required by law. Electronically signed by: Gualberto Buitrago M.D. 03/22/2024 9:[address] 03/22/24 07:51 CT OF THE HEAD WITHOUT CONTRAST CLINICAL HISTORY: gait instability; facial droop COMPARISON STUDY: MRI of the brain April 25, 2022. Head CT May 18, 2023. TECHNIQUE: Helical axial images of the head were obtained without IV contrast. Automated exposure control was utilized for the study. A dose lowering technique was utilized adhering to the principles of ALARA. FINDINGS: No acute intracranial hemorrhage, midline shift or mass effect is present. The ventricular system is stable. White matter hypodensities are similar to prior exam and favor small vessel disease. There are no findings to suggest acute dural sinus thrombosis or acute territorial infarct. CSF density anterior to the right temporal lobe is unchanged. There may be right temporal lobe volume loss. The appearance of the brain is unchanged. A left-sided craniotomy is again noted. There are no calvarial fractures. IMPRESSION: No acute intracranial findings. No change in appearance of the brain. ACT 112: Negative or not required by law. Electronically signed by: Gualberto Buitrago M.D. 03/22/2024 8:54 AM Head CTA 03/22/24 07:51 CT angio head w con, CT angio neck with con CLINICAL HISTORY: 63 years-old Male with gait instability; facial droop. Acute strokelike symptoms with blurry vision COMPARISON STUDY: Head CT of same day, May 18, 2023. TECHNIQUE: Following the IV administration of 112 cc of Optiray, CT angiogram of the head and neck was performed from the aortic arch to the skull apex. Images are reviewed in the axial, sagittal, and coronal planes. 3-D MIPS images are created and assessed. IV contrast was administered without complication. All measurements were obtained according to NASCET criteria. A dose lowering technique was utilized adhering to the principles of ALARA. CT DOSE: 1165.7 mGy.cm FINDINGS: CT ANGIOGRAM OF THE HEAD AND NECK: Three-vessel morphology of the thoracic aortic arch. There is patency of the innominate and imaged subclavian arteries. Patent common and internal carotid arteries. The bilateral anterior and middle cerebral arteries are also patent. The vertebrobasilar system and posterior cerebral arteries are widely patent. Dominant left vertebral artery. The diminutive right vertebral artery appears to terminate into the right PICA. There is no aneurysm, high-grade stenosis, or proximal branch occlusion identified. Dural sinuses appear patent. The appearance of the brain is unchanged. A left-sided craniotomy is again noted. There are no calvarial fractures. The lung apices appear clear. Unremarkable soft tissues. No acute fracture identified. IMPRESSION: Unremarkable CTA of the head and neck. ACT 112: Negative or not required by law. The above report was generated using voice recognition software. It may contain grammatical, syntax or spelling errors. Electronically signed by: Juan Gonzalez M.D. 03/22/2024 9:07 AM Neck CTA 03/22/24 07:51 CT angio head w con, CT angio neck with con CLINICAL HISTORY: 63 years-old Male with gait instability; facial droop. Acute strokelike symptoms with blurry vision COMPARISON STUDY: Head CT of same day, May 18, 2023. TECHNIQUE: Following the IV administration of 112 cc of Optiray, CT angiogram of the head and neck was performed from the aortic arch to the skull apex. Images are reviewed in the axial, sagittal, and coronal planes. 3-D MIPS images are created and assessed. IV contrast was administered without complication. All measurements were obtained according to NASCET criteria. A dose lowering technique was utilized adhering to the principles of ALARA. CT DOSE: 1165.7 mGy.cm FINDINGS: CT ANGIOGRAM OF THE HEAD AND NECK: Three-vessel morphology of the thoracic aortic arch. There is patency of the innominate and imaged subclavian arteries. Patent common and internal carotid arteries. The bilateral anterior and middle cerebral arteries are also patent. The vertebrobasilar system and posterior cerebral arteries are widely patent. Dominant left vertebral artery. The diminutive right vertebral artery appears to terminate into the right PICA. There is no aneurysm, high-grade stenosis, or proximal branch occlusion identified. Dural sinuses appear patent. The appearance of the brain is unchanged. A left-sided craniotomy is again noted. There are no calvarial fractures. The lung apices appear clear. Unremarkable soft tissues. No acute fracture identified. IMPRESSION: Unremarkable CTA of the head and neck. ACT 112: Negative or not required by law. The above report was generated using voice recognition software. It may contain grammatical, syntax or spelling errors. Electronically signed by: Juan Gonzalez M.D. 03/22/2024 9:07 AM Discharge Plan Visit Data Chief Complaint: Neuro Symptoms/Deficit Stated Complaint: possible low sugar, "not feeling right" ED Provider: Jessica Mccoy Discharge Problem: Generalized weakness, Ambulatory dysfunction, Uncontrolled type 2 diabetes mellitus with hyperglycemia Forms Stand Alone Forms: [facility] Prescriptions Prescriptions: No Action spironolactone 25 mg Tablet 25 mg PO DAILY aspirin 81 mg Tablet,Delayed Release (Dr/Ec) 81 mg PO DAILY insulin aspart U-100 100 unit/mL (3 mL) insulin pen 60 unit subcut BIDWMEAL Rx Instructions: 60 UNITS WITH BREAKFAST, 60 UNITS WITH DINNER metformin 750 mg Tablet Extended Release 24 Hr 1,500 mg PO DAILY bupropion HCl 300 mg tablet extended release 24 hr 300 mg PO DAILY Jardiance 25 mg tablet 25 mg PO DAILY ascorbic acid (vitamin C) [Vitamin C] 500 mg Tablet 500 mg PO DAILY Multiple Vitamin-Minerals Tablet 1 tab PO DAILY tamsulosin 0.4 mg capsule 0.4 mg PO DAILY insulin glargine U-300 conc [Toujeo Max U-300 SoloStar] 300 unit/mL (3 mL) insulin pen 100 unit SUBCUT BID metoprolol succinate 50 mg tablet extended release 24 hr 50 mg PO BID lisinopril 20 mg tablet 20 mg PO QAM sertraline 100 mg tablet 100 mg PO QAM furosemide [Lasix] 20 mg Tablet 60 mg PO DAILY Referrals Referrals: Willam Fofana, [Primary Care Provider] -
[2024-03-22] MEDS: OPTIRAY 320 125ml IV ONE (08:31)
[2024-03-22 08:33] LABS: iSTAT Creatinine 0.8 mg/dl (0.6-1.3); iSTAT Ionized Calcium 1.17 mmol/l (1.12-1.32); iSTAT Potassium 4.2 mmol/L (3.3-5.0)
[2024-03-22 08:34] LABS: Basophils # (auto) 0.12 K/uL (0.00-0.20); Basophils % (auto) 1.1 %; Eosinophils # (auto) 0.31 K/uL (0.00-0.50); Eosinophils % (auto) 2.9 %; Hematocrit (blood only) 48.7 % (42.0-52.0); Immature Granulocytes # (auto) 0.12 K/uL (0.01-0.20); Immature Granulocytes % (auto) 1.1 %; Lymphocytes # (auto) 2.85 K/uL (1.20-3.40); Mean Corpuscular Hemoglobin 26.9 pg (25.0-34.0); Mean Corpuscular Hgb Conc 32.9 g/dL (32.0-36.0); Mean Platelet Volume 9.5 fL (9.4-12.4); Monocytes % (auto) 6.6 %; Neutrophils # (auto) 6.46 K/uL (1.40-6.50); Neutrophils % (auto) 61.3 %; Platelet Count 259 K/uL (130-400); RDW Coefficient of Variation 15.4 % (11.5-14.5); RDW Standard Deviation 45.7 fL (36.4-46.3); Red Blood Count 5.94 M/uL (4.70-6.10); White Blood Count 10.56 K/ul (4.8-10.8)
[2024-03-22 08:48] LABS: Albumin Globulin Ratio 1.1 (0.9-2); Albumin Level 3.4 gm/dl (3.4-5.0); BUN Creatinine Ratio 22.5 (10-20); Bilirubin,Total 0.6 mg/dl (0.2-1.0); Calcium 9.1 mg/dl (8.6-10.3); Creatinine Clr Calc Pharmacy 119.8 ml/min; Est GFR (Non-African American) 92.3 ml/min; Globulin 3.1 gm/dl (2.5-4.0); INR 0.9 (0.9-1.1); Magnesium 1.9 mg/dl (1.7-2.4); Potassium 4.4 mmol/L (3.5-5.1); Prothrombin Time 10.1 Seconds (9.0-12.0); Total Protein 6.5 gm/dl (6.0-8.3)
--- NOTE | 2024-03-22 08:56 | CT Scan Report ---
CT OF THE HEAD WITHOUT CONTRAST CLINICAL HISTORY: gait instability; facial droop COMPARISON STUDY: MRI of the brain April 25, 2022. Head CT May 18, 2023. TECHNIQUE: Helical axial images of the head were obtained without IV contrast. Automated exposure con trol was utilized for the study. A dose lowering technique was utilized adhering to the principles o f ALARA. FINDINGS: No acute intracranial hemorrhage, midline shift or mass effect is present. The ventricular system is stable. White matter hypodensities are similar to prior exam and favor small vessel disease . There are no findings to suggest acute dural sinus thrombosis or acute territorial infarct. CSF den sity anterior to the right temporal lobe is unchanged. There may be right temporal lobe volume loss. The appearance of the brain is unchanged. A left-sided craniotomy is again noted. There are no calvar ial fractures. IMPRESSION: No acute intracranial findings. No change in appearance of the brain. ACT 112: Negative or not required by law. Electronically signed by: Gualberto Buitrago M.D. 03/22/2024 8:54 AM
--- NOTE | 2024-03-22 09:09 | CT Scan Report ---
CT angio head w con, CT angio neck with con CLINICAL HISTORY: 63 years-old Male with gait instability; facial droop. Acute strokelike symptoms with blurry vision COMPARISON STUDY: Head CT of same day, May 18, 2023. TECHNIQUE: Following the IV administration of 112 cc of Optiray, CT angiogram of the head and neck wa s performed from the aortic arch to the skull apex. Images are reviewed in the axial, sagittal, and c oronal planes. 3-D MIPS images are created and assessed. IV contrast was administered without complic ation. All measurements were obtained according to NASCET criteria. A dose lowering technique was uti lized adhering to the principles of ALARA. CT DOSE: 1165.7 mGy.cm FINDINGS: CT ANGIOGRAM OF THE HEAD AND NECK: Three-vessel morphology of the thoracic aortic arch. There is patency of the innominate and imaged suresh bclavian arteries. Patent common and internal carotid arteries. The bilateral anterior and middle cer ebral arteries are also patent. The vertebrobasilar system and posterior cerebral arteries are widely patent. Dominant left vertebral artery. The diminutive right vertebral artery appears to terminate i nto the right PICA. There is no aneurysm, high-grade stenosis, or proximal branch occlusion identifie d. Dural sinuses appear patent. The appearance of the brain is unchanged. A left-sided craniotomy is again noted. There are no calvar ial fractures. The lung apices appear clear. Unremarkable soft tissues. No acute fracture identified. IMPRESSION: Unremarkable CTA of the head and neck. ACT 112: Negative or not required by law. The above report was generated using voice recognition software. It may contain grammatical, syntax o r spelling errors. Electronically signed by: Juan Gonzalez M.D. 03/22/2024 9:07 AM
[2024-03-22] MEDS: SODIUM CHLORIDE 0.9% 1,000 ML IV ONE ×2 (09:38→10:54)
--- NOTE | 2024-03-22 09:41 | XRay Report ---
XR chest 1V portable CLINICAL HISTORY: Confusion. COMPARISON STUDY: Chest radiograph and chest CT December 11, 2023. FINDINGS: Lung volumes are normal. Lungs are clear. There is no pneumothorax or pleural effusion. Car diac size is stable. Mediastinal contours are normal. There is no evidence for pulmonary edema. IMPRESSION: No acute cardiopulmonary findings. No significant change in appearance of the chest. ACT 112: Negative or not required by law. Electronically signed by: Gualberto Buitrago M.D. 03/22/2024 9:40 AM
--- NOTE | 2024-03-22 09:57 | Electrocardiogram Report ---
Test Reason : Blood Pressure : / mmHG Vent. Rate : 090 BPM Atrial Rate : 090 BPM P-R Int : 188 ms QRS Dur : 088 ms QT Int : 372 ms P-R-T Axes : 069 086 055 degrees QTc Int : 455 ms Sinus rhythm with Premature atrial complexes Low voltage QRS Borderline ECG When compared with ECG of 11-DEC-2023 07:24, No significant change was found Confirmed by Jerome Oneil ([id number]) on 03/22/2024 9:57:06 AM Referred By: REFERRED SELF Confirmed By:Hayden Oneil
[2024-03-22 09:59] LABS: Appearance Urine Clear (Clear); Bilirubin Urine Negative (Negative); Blood Urine Negative (Negative); Color Urine Yellow; Glucose Urine UA 3+ (Negative); Ketones Urine Negative (Negative); Leukocyte Esterase Urine Negative (Negative); Nitrite Urine Negative (Negative); Protein Urine Negative (Negative); Specific Gravity Urine 1.041 (1.000-1.030); Urobilinogen Urine Negative (Negative); pH Urine 5.5 (4.5-7.5)
[2024-03-22 10:29] LABS: Amphetamines+Metham, Urine Neg (Neg); Barbiturates, Urine Neg (Neg); Benzodiazepine, Urine Neg (Neg); Cocaine, Urine Neg (Neg); Fentanyl, Urine Neg (Neg); MDMA (Ecstacy), Urine Neg (Neg); Marijuana, Urine Neg (Neg); Methadone, Urine Neg (Neg); Opiate, Urine Neg (Neg); Phencyclidine, Urine Neg (Neg)
[2024-03-22] MEDS: NovoLIN-R INSULIN PER UNIT CHARGE IV STA (10:31)
[2024-03-22 10:59] LABS: Base Excess VBG 0.3 mEq/L; HCO3 VBG 25 mmol/L; PCO2 VBG 38 mmHg (38-50); PO2 VBG 60 mmHg; pH VBG 7.42 (7.36-7.41)
[2024-03-22 11:38] LABS: Estimated Average Glucose 269 mg/dl
[2024-03-22 12:05] LABS: Adenovirus PCR Not Detected (NotDetected); Bordetella parapertussis PCR Not Detected (NotDetected); Bordetella pertussis PCR Not Detected (NotDetected); Chlamydia pneumoniae PCR Not Detected (NotDetected); Coronavirus 229E PCR Not Detected (NotDetected); Coronavirus CoV-2 (COVID19)PCR Not Detected (NotDetected); Coronavirus HKU1 PCR Not Detected (NotDetected); Coronavirus NL63 PCR Not Detected (NotDetected); Coronavirus OC43PCR Not Detected (NotDetected); Human Metapneumovirus PCR Not Detected (NotDetected); Influenza A PCR Not Detected (NotDetected); Influenza B PCR Not Detected (NotDetected); Mycoplasma pneumoniae PCR Not Detected (NotDetected); Parainfluenza Virus 1 PCR Not Detected (NotDetected); Parainfluenza Virus 2 PCR Not Detected (NotDetected); Parainfluenza Virus 3 PCR Not Detected (NotDetected); Parainfluenza Virus 4 PCR Not Detected (NotDetected); Respiratory Syncytial VirusPCR Not Detected (NotDetected); Rhinovirus/Enterovirus PCR Not Detected (NotDetected)
--- NOTE | 2024-03-22 12:06 | History & Physical Report ---
Date of Service March 22, 2024 Assessment & Plan (1) Ambulatory dysfunction: (2) Generalized weakness: Plan: Patient is 63 year old male with PMH HTN, NM, nonischemic cardiomyopathy, chronic hepatitis C, insulin dependent DM II, polyneuropathy, ALEJANDRA, history of IV drug abuse, current methamphetamine use, depression, BPH, history of medication non-compliance presented to ER with c/o weakness x several days In ER vitals stable. Noted hyperglycemic, without other significant electrolyte abnormality and no leukocytosis CT head: No acute intracranial findings. CTA head and neck: Unremarkable CTA of the head and neck. CXR: no acute infiltrate Blood cultures pending Suspect generalized deconditioning as well as metabolic reasons for generalized weakness and less likely TIA/CVA as without focal deficits. Will obtain MRI brain MRI brain pending. Patient developed nausea after contrast. No vomiting. Did not want to undergo further MRI If worsening or develops focal deficits consider further workup and neurology evaluation Fall precautions PT/OT eval CBC, BMP in am (3) Uncontrolled type 2 diabetes mellitus with hyperglycemia: Plan: Random glucose: 473 down to 401 after 10 units Insulin R given in ER A1c: 11 Patient with known noncompliance. Hold home Jardiance Patient prescribed Novolog 45 units breakfast, 50 supper +sliding scale, max 120 units daily. Patient takes 60 UNITS WITH BREAKFAST, 60 UNITS WITH DINNER Patient prescribed Toujeo max solostar 300unit/mL 100 units AM and 100 units HS. KNOWN noncompliance (Rx was last filled on 10/20/23). So unclear how patient has been taking. In past patient prescribed metformin however has not been filled Novolog and NPH insulin for now. Patient with listed allergy to insulin glargine however is taking intermittently at home. Glycemic consult (4) Bronchitis: Plan: Possible bronchitis Reports intermittent green productive cough past several days without CP or SOB CXR without acute infiltrate Start doxycycline No current wheezing, if would develop consider albuterol (5) Nonischemic cardiomyopathy: Plan: Prior history nonischemic cardiomyopathy. History NM Denies CP, SOB Echo 07/2022: EF: 55-60%, grade 2 diastolic dysfunction Previously prescribed Lasix however has not been filled and patient has not been taking. Previously prescribed spironolactone, however not been filled since 2022 and pt likely not taking Previously prescribed metoprolol succinate however pt never filled Rx and is not taking Daily aspirin Will restart spironolactone at 12.5mg daily and start metoprolol tartrate 12.5mg BID Restart lasix 20mg daily Monitor I's & O's, daily weight. Low sodium diet Obtain resting echo May need to consider cardiology consult (6) Hypertension: Plan: Continue lisinopril (7) H/O drug abuse: Plan: Smokes and orally ingests methamphetamines almost daily, but reports hasn't used for 2 weeks. Reports last IV drug use was approximately 10 years ago Urine drug negative Drug cessation recommended (8) Anxiety and depression: Plan: Reports depression symptoms. Denies SI/HI Continue sertraline, bupropion Denies mental health consult (9) BPH (benign prostatic hyperplasia): Plan: Continue tamsulosin (10) Peripheral vascular disease: Plan: S/p ablation right leg 12/2022 Continue aspirin (11) ALEJANDRA (obstructive sleep apnea): Plan: CPAP noncompliance (12) Morbid obesity: Plan: BMI: 44 Lifestyle modifications recommended DVT Prophylaxis Lovenox SQ Full Code as per discussion with pt Follows with Dr Willam Fofana for routine care Pt was seen and care coordinated with Dr Sanchez. See addendum I spent a total of 82 minutes reviewing notes, outpatient records, labs, medication, coordinating, documenting and providing care for this patient excluding time spent in the performance of separately billed services. History of Present Illness Chief Complaint: Weakness Primary Care Provider: Willam Fofana DO Patient is 63 year old male with PMH HTN, NM, nonischemic cardiomyopathy, chronic hepatitis C, insulin dependent DM II, polyneuropathy, ALEJANDRA, history of IV drug abuse, current methamphetamine use, depression, BPH, history of medication non-compliance presented to ER with c/o weakness x several days. History obtained from patient, inpatient and outpatient chart review. Patient states chronically "wobbly" with walking. States past several days he has been more weak and wobbly and having difficulty ambulating. Sleeps in chair. States has been sitting in his chair a lot the last 2 days secondary to weakness. He reports chronically sleeps in chair and denies orthopnea or known PND. He reports chronic polydipsia. He admits to drinking "a lot" of tea, water and Kash D. States not eating well past 2 days. He states he has intermittent cough sometimes green sputum. Denies hemoptysis, chest pain or SOB. Denies tobacco use currently. He admits missed medications, and thinks he misses medications several times a month. Last used insulin yesterday. Last took oral medications 2-3 days ago. He states he lives alone. Has family but states he is estranged from family and doesn't have friends. States he has a neighbor who checks on him intermittently. He admits to feeling depressed. Denies homicidal ideations. He does state he sometimes feels he would be "better if just " but has no plan and denies no history suicide plan or attempt in past. Uses meth by oral ingestion or smoking. States last used 2 weeks ago. Reports has not used IV drugs for years. States chronic right eye visual disturbance but denies any other worsening vision, diplopia, or vision loss. Denies fever/chills, diaphoresis, N/V/D/C, CALIX, dizziness, syncope, vision changes, neck pain, CP, SOB, palpitations, sore throat, choking, otalgia, rhinorrhea, abdominal pain, paresthesias, weakness, extremity weakness, increased extremity edema, rashes, urinary symptoms, upper extremity weakness, or recent fall. Patient states only uses [facility]. Called and spoke to patient's pharmacy [facility]: Sertraline 100mg 1 tab daily, 90 day supply, last Filled on 03/16/24 lisinopril 20mg 1 daily, 30 day, last filled 03/16/24 tamsulosin 0.4mg 1 daily, 30 day supply, last filled on 03/04/24 Novolog flex pen 45 units breakfast, 50 supper +sliding scale, max 120 units daily. Last filled on 02/20/24 (25 day supply) Jardiance 25mg 1 tab daily, 90 day supply, last filled on 01/12/24 Wellbutrin XL 300mg 1 tab daily, 90 day supply, last filled on 01/31/24 Toujeo max solostar 300unit/mL 100 units AM and HS, 90 day supply, last filled on 10/20/23 metoprolol succinate 50mg never filled, was prescribed in 05/2023 but never filled and picked up Spironolactone last filled 2022 Lasix Hasn't been filled ever at [facility] Allergies Allergy/AdvReac Type Severity Reaction Status Date / Time shellfish derived Allergy Severe Swelling Unverified 03/22/24 10:34 permethrin Allergy Intermediate swelling Verified 03/22/24 10:34 shrimp Allergy Intermediate SWELLS Verified 03/22/24 10:34 sulfamethoxazole Allergy Unknown Unknown Verified 03/22/24 10:34 [From Bactrim] trimethoprim [From Bactrim] Allergy Unknown Unknown Verified 03/22/24 10:34 insulin glargine AdvReac Severe CHF Verified 03/22/24 10:34 [From Lantus U-100 Insulin] amoxicillin AdvReac Intermediate HIVES Verified 03/22/24 10:34 clavulanic acid AdvReac Intermediate HIVES Verified 03/22/24 10:34 Home Medications Medication Instructions Recorded Confirmed Type aspirin 81 mg tablet,delayed 81 mg PO DAILY 08/01/22 03/22/24 History release bupropion HCl 300 mg 24 hr tablet, 300 mg PO DAILY 08/01/22 03/22/24 History extended release empagliflozin 25 mg tablet 25 mg PO DAILY 08/01/22 03/22/24 History (Jardiance) insulin aspart U-100 100 unit/mL 60 unit subcut BIDM 08/01/22 03/22/24 History (3 mL) subcutaneous pen ascorbic acid (vitamin C) 500 mg 500 mg PO DAILY 09/21/22 03/22/24 History tablet (Vitamin C) multivitamin with minerals 1 tab PO DAILY 09/21/22 03/22/24 History (Multiple Vitamin-Minerals tablet) lisinopril 20 mg tablet 20 mg PO QAM 10/10/23 03/22/24 History sertraline 100 mg tablet 100 mg PO QAM 10/10/23 03/22/24 History insulin glargine U-300 conc 300 100 unit subcut BID 10/14/23 03/22/24 History unit/mL (3 mL) subcutaneous pen (Toujeo Max U-300 SoloStar) tamsulosin 0.4 mg capsule 0.4 mg PO DAILY 10/14/23 03/22/24 History Past Med/Surg History Problem List (Updated 03/22/24 @ 19:09 by Elizabeth Pérez PA-C) BPH (benign prostatic hyperplasia) Anxiety and depression Bronchitis Uncontrolled type 2 diabetes mellitus with hyperglycemia (Acute) Ambulatory dysfunction (Acute) Generalized weakness (Acute) Acute hyperglycemia (Acute) Morbid obesity with BMI of 40.0-44.9, adult Acute hyperglycemia (Acute) ALEJANDRA (obstructive sleep apnea) Hyperglycemia Nonischemic cardiomyopathy (Chronic) "prior EF 30% per Epic records. echo 02/2015- EF 40-45%" DM type 2 (diabetes mellitus, type 2) (Chronic) H/O TB (tuberculosis) (Chronic) H/O toxoplasmosis (Chronic) Hepatitis C (Chronic) Hypertension (Chronic) Colon polyp (Chronic) "TVA polyp on colonoscopy 09/2014" H/O colonoscopy (Chronic) "11/2015- diverticulosis" S/P cardiac cath (Chronic) "for abnormal stress test. cath 03/18/2015-essentially normal coronaries with no obstructive disease " Colon polyp Confusion (Acute) Hyperglycemia due to type 2 diabetes mellitus (Acute) DVT prophylaxis Polyneuropathy Peripheral vascular disease Depression Bilateral cellulitis of lower leg (Acute) Fatigue (Acute) Encephalopathy Hypercapnic respiratory failure Varicose veins of bilateral lower extremities with other complications Morbid obesity H/O drug abuse Medical History Shortness of breath Acute dehydration Accidental fall tripped over dog bed, hit back of head, checked in the ED poss concussion Dysequilibrium Hepatitis C Diabetes mellitus, type 2 Depression Anxiety Hypertension Surgical History History of colonoscopy History of umbilical hernia repair x2 History of tooth extraction History of wisdom tooth extraction History of cardiac cath 03/2015 @ [facility], no stents follows with Dr. Monet Family History Mother Family history of diabetes mellitus Father Family history of diabetes mellitus Other No family history of adverse response to anesthesia Social History Smoking Status: Never smoker Tobacco Type: Cigarettes Cigarettes Per Day: Says he occasionally will smoke a cigar.; Second Hand Exposure: Yes; Do You Dip or Chew Tobacco: No; Hx Alcohol Use: No Hx Substance Use: No Preferred Language: Macanese Communication Ability: Effective Real Estate Administrator Required: No Beliefs That Will Affect Care: None marital status: Single Current Living Situation: Alone Current Living Situation Comment: lives alone Feels Safe at Home: Yes Safety Concerns: Feels Safe At This Time Assistive Devices: None Review of Systems Review of Systems: All systems reviewed & are unremarkable except as noted in HPI & below Physical Exam Physical Exam: General: no acute distress, +obese Head: normocephalic, atraumatic Eyes: PERRL, EOM's intact, conjunctiva non-injected, anicteric ENT: normal inspection external ears, nose, mucous membranes dry Neck: supple, trachea midline Lungs: clear, no respiratory distress, no wheezing/rhonchi/rales CV: RRR, no murmur, 2+ pretibial edema Abd: +protuberant, normal BS, soft, non-tender Ext: no cyanosis, no calf tenderness Neuro: A&O x 3, +generalized weakness, no other focal deficits noted, flat affect Skin: warm, dry Results & Data Results & Data Vital Signs (Past 12 Hours) Vital Signs Temp Pulse Resp BP Pulse Ox O2 Del Method 03/22/24 11:00 90 20 162/70 H 94 03/22/24 10:30 101 H 20 147/97 H 95 03/22/24 10:05 100 H 17 152/81 H 96 03/22/24 09:02 101 H 22 165/86 H 96 03/22/24 08:45 99 H 18 154/98 H 96 03/22/24 08:11 94 H 03/22/24 08:06 94 H 20 100 Room Air 03/22/24 07:43 36.4 C L 91 H 20 180/91 H 100 Room Air Laboratory Results Short CBC 03/22/24 Range/Units 08:00 WBC 10.56 (4.8-10.8) K/ul Hgb 16.0 (14.0-18.0) g/dl Hct 48.7 (42.0-52.0) % Plt Count 259 (130-400) K/uL BMP 03/22/24 08:00 Sodium 137 Potassium 4.4 Chloride 102 Carbon Dioxide 31 BUN 20 Creatinine 0.89 Glucose 473 H* Calcium 9.1 Liver Function 03/22/24 Range/Units 08:00 Total Bilirubin 0.6 (0.2-1.0) mg/dl AST 27 (13-39) U/L ALT 28 (7-52) U/L Alkaline Phosphatase 83 (34-104) U/L Albumin 3.4 (3.4-5.0) gm/dl Urine 03/22/24 Range/Units 09:29 Urine Color Yellow Urine Appearance Clear (Clear) Urine pH 5.5 (4.5-7.5) Ur Specific Marvell 1.041 H (1.000-1.030) Urine Protein Negative (Negative) Urine Glucose (UA) 3+ H (Negative) Diagnostic Findings Chest X-Ray 03/22/24 07:51 XR chest 1V portable CLINICAL HISTORY: Confusion. COMPARISON STUDY: Chest radiograph and chest CT December 11, 2023. FINDINGS: Lung volumes are normal. Lungs are clear. There is no pneumothorax or pleural effusion. Cardiac size is stable. Mediastinal contours are normal. There is no evidence for pulmonary edema. IMPRESSION: No acute cardiopulmonary findings. No significant change in a ppearance of the chest. ACT 112: Negative or not required by law. Electronically signed by: Gualberto Buitrago M.D. 03/22/2024 9:[address] 03/22/24 07:51 CT OF THE HEAD WITHOUT CONTRAST CLINICAL HISTORY: gait instability; facial droop COMPARISON STUDY: MRI of the brain April 25, 2022. Head CT May 18, 2023. TECHNIQUE: Helical axial images of the head were obtained without IV contrast. Automated exposure control was utilized for the study. A dose lowering technique was utilized adhering to the principles of ALARA. FINDINGS: No acute intracranial hemorrhage, midline shift or mass effect is present. The ventricular system is stable. White matter hypodensities are similar to prior exam and favor small vessel disease. There are no findings to suggest acute dural sinus thrombosis or acute territorial infarct. CSF density anterior to the right temporal lobe is unchanged. There may be right temporal lobe volume loss. The appearance of the brain is unchanged. A left-sided craniotomy is again noted. There are no calvarial fractures. IMPRESSION: No acute intracranial findings. No change in appearance of the brain. ACT 112: Negative or not required by law. Electronically signed by: Gualberto Buitrago M.D. 03/22/2024 8:54 AM Head CTA 03/22/24 07:51 CT angio head w con, CT angio neck with con CLINICAL HISTORY: 63 years-old Male with gait instability; facial droop. Acute strokelike symptoms with blurry vision COMPARISON STUDY: Head CT of same day, May 18, 2023. TECHNIQUE: Following the IV administration of 112 cc of Optiray, CT angiogram of the head and neck was performed from the aortic arch to the skull apex. Images are reviewed in the axial, sagittal, and coronal planes. 3-D MIPS images are created and assessed. IV contrast was administered without complication. All measurements were obtained according to NASCET criteria. A dose lowering technique was utilized adhering to the principles of ALARA. CT DOSE: 1165.7 mGy.cm FINDINGS: CT ANGIOGRAM OF THE HEAD AND NECK: Three-vessel morphology of the thoracic aortic arch. There is patency of the innominate and imaged subclavian arteries. Patent common and internal carotid arteries. The bilateral anterior and middle cerebral arteries are also patent. The vertebrobasilar system and posterior cerebral arteries are widely patent. Dominant left vertebral artery. The diminutive right vertebral artery appears to terminate into the right PICA. There is no aneurysm, high-grade stenosis, or proximal branch occlusion identified. Dural sinuses appear patent. The appearance of the brain is unchanged. A left-sided craniotomy is again noted. There are no calvarial fractures. The lung apices appear clear. Unremarkable soft tissues. No acute fracture identified. IMPRESSION: Unremarkable CTA of the head and neck. ACT 112: Negative or not required by law. The above report was generated using voice recognition software. It may contain grammatical, syntax or spelling errors. Electronically signed by: Juan Gonzalez M.D. 03/22/2024 9:07 AM Neck CTA 03/22/24 07:51 CT angio head w con, CT angio neck with con CLINICAL HISTORY: 63 years-old Male with gait instability; facial droop. Acute strokelike symptoms with blurry vision COMPARISON STUDY: Head CT of same day, May 18, 2023. TECHNIQUE: Following the IV administration of 112 cc of Optiray, CT angiogram of the head and neck was performed from the aortic arch to the skull apex. Images are reviewed in the axial, sagittal, and coronal planes. 3-D MIPS images are created and assessed. IV contrast was administered without complication. All measurements were obtained according to NASCET criteria. A dose lowering technique was utilized adhering to the principles of ALARA. CT DOSE: 1165.7 mGy.cm FINDINGS: CT ANGIOGRAM OF THE HEAD AND NECK: Three-vessel morphology of the thoracic aortic arch. There is patency of the innominate and imaged subclavian arteries. Patent common and internal carotid arteries. The bilateral anterior and middle cerebral arteries are also patent. The vertebrobasilar system and posterior cerebral arteries are widely patent. Dominant left vertebral artery. The diminutive right vertebral artery appears to terminate into the right PICA. There is no aneurysm, high-grade stenosis, or proximal branch occlusion identified. Dural sinuses appear patent. The appearance of the brain is unchanged. A left-sided craniotomy is again noted. There are no calvarial fractures. The lung apices appear clear. Unremarkable soft tissues. No acute fracture identified. IMPRESSION: Unremarkable CTA of the head and neck. ACT 112: Negative or not required by law. The above report was generated using voice recognition software. It may contain grammatical, syntax or spelling errors. Electronically signed by: Juan Gonzalez M.D. 03/22/2024 9:07 AM ECG Rhythm: sinus rhythm Findings: + PAC Supervising Physician Co-Signing Physician Notes 63 year old male with PMH of HTN, NM, nonischemic cardiomyopathy, chronic hepatitis C, insulin dependent DM II, polyneuropathy, ALEJANDRA, history of IV drug abuse, current methamphetamine use [last used 2 weeks ago per patient], depression, BPH, medication non-compliance. Patient states chronically "wobbly" with walking. States past several days he has been more weak and wobbly and having difficulty ambulating. he also reports cough with scant greenish sputum for the last several days. he reports he cannot take care of himself at home. Likely bronchitis: Doxycycline, follow clinically. Get blood culture. Generalized weakness/generalized deconditioning/medical noncompliance: Patient has not been taking his metoprolol/Lasix/Aldactone, misses many doses on his insulin, has history of major noncompliance. Generalized weakness and deconditioning likely secondary to poor lifestyle habits and medical noncompliance and ongoing drug use. PT/OT, resume cardiac medications at a lower dose and gradually uptitrate. Start at : Metoprolol 25 twice daily, Aldactone 12.5 daily, Lasix 20 daily. Will get echo, labs and imaging reviewed. Will get brain MRI with and without contrast, no focal weakness noted, but patient reports worsening unstable gait since last several days. Patient denies smoking and alcohol use. Tox screen neg. On exam: GENERAL: Alert and oriented x3. NAD, on RA. Obese class III. HEENT: No pallor, no icterus. Pupils equal, round and reactive to light. Oral mucosa moist. NECK: No JVD, no neck masses. HEART: S1 and S2 heard. Regular rate and rhythm. No murmur, no gallop. RESPIRATORY SYSTEM: Normal AP diameter. No accessory muscle use. No wheezing, no crackles. ABDOMEN: Soft, bowel sounds present, nontender, no distention. CENTRAL NERVOUS SYSTEM: No facial droop. Speech is clear. Obeys simple commands. Moves extremities. EXTREMITIES: 1-2 + Ble edema, no erythema seen. varicose veins noted. I have seen and examined the patient and have discussed the case with the provider above. I agree with the assessment and plan as stated. spent 30 min independently, in addition to GLADYS's time. (6) Hypertension Hypertension type: primary hypertension Qualified Code(s): I10 - Essential (primary) hypertension
[2024-03-22] MEDS ORDERED: INSULIN HUMAN NPH SC ONE (13:16)
[2024-03-22] MEDS ORDERED: GLUCOSE 10 TAB/TUBE PO PRN (14:05)
[2024-03-22] MEDS ORDERED: POLYETHYLENE (MIRALAX) 17 GM PACK PO PRN (14:05)
[2024-03-22] MEDS ORDERED: CARBOHYDRATES FOR HYPOGLYCEMIA PO PRN (14:05)
[2024-03-22] MEDS ORDERED: GLUCOSE 40% GEL 15 GM TUBE PO PRN (14:05)
[2024-03-22] MEDS ORDERED: PHARMACY GLYCEMIC MGMT CONSULT PRN (14:05)
[2024-03-22] MEDS ORDERED: GLUCAGON FOR INJ 1 MG VIAL SQ PRN (14:05)
[2024-03-22] MEDS ORDERED: DEXTROSE 50% 50 ML SYRINGE IV PRN (14:05)
[2024-03-22] MEDS ORDERED: ONDANSETRON INJ 2 MG/ML 2 ML VIAL IV PRN (14:05)
--- NOTE | 2024-03-22 14:38 | Pharmacy Report ---
Pharmacy Glycemic Short Note 2 - Date of Service March 22, 2024 - Glycemic Short BSG Results (Last 24 hours): 03/22/24 03/22/24 03/22/24 07:46 08:00 08:17 Glucose 473 H* POC Glucose 327 H* POC Glucose (other) 458 H* 03/22/24 03/22/24 11:47 13:49 Glucose POC Glucose 401 H* 365 H* POC Glucose (other) OUTPATIENT ANTIDIABETIC REGIMEN: * Non-compliant with outpatient insulin regimen * Patient uses Toujeo and Novolog, but unclear how he is using these on a daily basis * Reported doses: Toujeo 100 units SC BID, Novolog 60 units SC BID HbA1c: 11% (03/22/24) ASSESSMENT: * CF is a 63 year old male who presents to ED today with generalized weakness/gait instability * Patient well known to pharmacy glycemic service due to frequent readmissions and glycemic consultations * Presenting BSG > 300 mg/dL, given 10 units of IV regular insulin and ordered 30 units of NPH * Will utilize prior inpatient glycemic data to guide initial insulin dosing w/ overnight checks this evening * T2DM diet ordered * Of note, patient reports adverse drug reaction to Lantus so will continue with NPH PLAN FOR INPATIENT GLYCEMIC CONTROL: * Basal insulin * NPH 30 units SC x 1 today * Reassess in AM * Bolus insulin * NovoLog per scale ACHS or Q6hrs while NPO * Goal Range: Low 110 mg/dL - High 140 mg/dL * Correction Factor: 20 mg/dL/unit * Nutritional / Prandial insulin per carb ratio of 1 unit per 4 grams CHO consumed
[2024-03-22] MEDS: INSULIN ASPART PER UNIT CHARGE SC SCH (15:10)
[2024-03-22] MEDS: METOPROLOL TARTRATE 25 MG TAB PO STA (15:10)
[2024-03-22] MEDS: DOXYCYCLINE HYCLATE 100 MG CAP PO SCH (15:20)
[2024-03-22] MEDS: ASPIRIN 81 MG ECTAB PO SCH (15:20)
[2024-03-22] MEDS: SPIRONOLACTONE 12.5 MG TAB PO SCH (15:20)
[2024-03-22] MEDS: buPROPion XL 300 MG TABCR PO SCH (15:21)
[2024-03-22] MEDS: SERTRALINE HCL 100 MG TABLET PO SCH (15:21)
[2024-03-22] MEDS: FUROSEMIDE 20 MG TAB PO SCH (15:22)
[2024-03-22] MEDS: ENOXAPARIN INJ 40 MG/0.4 ML SYR SQ SCH (15:22)
[2024-03-22] MEDS: NovoLIN-N (NPH) PER UNIT CHARGE SQ STA (16:20)
[2024-03-22] MEDS ORDERED: MICONAZOLE NITRATE POWDER 85 GM EXT PRN (16:24)
--- NOTE | 2024-03-22 19:30 | Magnetic Resonance Report ---
MR brain wo con CLINICAL HISTORY: weakness, r/o stroke TECHNIQUE: Multiplanar and multisequence MR images of the brain were obtained without intravenous con trast. Comparison: Comparison is made to CT head 03/22/2024 and MRI brain 04/25/2022 FINDINGS: No abnormal restricted diffusion is identified. The white matter is unremarkable. Ex vacuo ventriculo megaly and sulcal enlargement is noted compatible with diffuse volume loss. No mass is seen. There is no mass effect or midline shift. There is no evidence of acute intraparenchymal hemorrhage. No extra axial fluid collections are seen. The corpus callosum, pituitary gland, and cerebellar tonsils appea r grossly unremarkable. Postsurgical changes are seen in the left calvarium. Flow voids of the major intracranial arterial vessels are identified. The imaged portions of the para nasal sinuses, mastoid air cells, and orbits are unremarkable. IMPRESSION: No acute abnormality and in particular no evidence of acute infarct. ACT 112: Negative or not required by law. Electronically signed by: Daron Terrell M.D. 03/22/2024 7:28 PM
[2024-03-22] MEDS: METOPROLOL TARTRATE 25 MG TAB PO SCH (20:05)
[2024-03-23] MEDS: INSULIN ASPART PER UNIT CHARGE SC SCH (00:55)
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
--- OUTSIDE RECORDS SUMMARY | 2024-03-23 02:34 | External Medical Summary | Summary of Care ---
Author Name Unknown Organization [facility] Address [address] [facility] [address] Phone [phone] Care Team Providers Care Security Control Room Officer Name Role Phone Willam Fofana DO Primary Care Provider [phone] Encounter Details Date Type Department Care Team (Late st Contact Info) Description 03/08/2024 Telephone Gastroenterology, [facility] [address] [facility] [place] [address] Kandice Arevalo MD [address] [facility] [place] [address] Allergies Active Allergy Reactions Criticality Noted Date Comments Amoxicillin-Pot Clavulanate Hives High 11/26/19 12 Sulfamethoxazole-Trimethopri m 02/07/2016 Insulin Glargine 01/21/2016 States he went in to CHF after one shot of insulin Other reaction(s): CHF Permethrin 04/27/2013 Shrimp Flavor 04/27/2013 documented as of this encounter (statuses as of 03/08/2024) Medications Medication Sig Dispensed Refills Start Date End Date Status VITAMIN C 500 MG PO TABS 1000mg daily Active nitroglycerin (NITROSTAT) 0.4 MG SUBLIndications:Inf erior myocardial infarction (HCC) Place 1 Tab under the tongue as needed for Pain, Chest. May repeat 3 times. If chest pain continues, call 911. 25 Tab 11 5 Active Additional Information Patient not taking.Informant: Patient, Reported on 01/26/2024 Chromium-Cinnamon 50-500 MCG-MG CAPS Take by mouth. 1 tab daily Active Aspirin 81 MG Tablet Take 1 Tab by mouth daily. 34 Tab 5 8 Active Bacillus Coagulans-Inulin (PROBIOTIC) 1-250 BILLION-MG CAPS daily. 0 Active Multiple Vitamins-Minerals (MULTIVITAMIN ADULT) TABS Take 1 Tablet by mouth in the morning. Active Furosemide 40 MG Oral Tablet (LASIX)Indications: Non-ischemic cardiomyopathy (HCC) TAKE 2 TABLETS BY MOUTH IN THE MORNING AND 1 TABLET IN THE AFTERNOON 270 Tab 3 0 Active Additional Information Patient taking differently: 120 mg Daily(AM), TAKE 2 TABLETS BY MOUTH IN THE MORNING AND 1 TABLET IN THE AFTERNOONPatient takes 3 tabs in AM, Informant: Patient, Reported on 10/21/2022 Dexcom G6 Pharmacy Retail Support Specialist DeviceIndications:D M type 2, not at goal (HCC) Use as directed. E11.9 1 Each 1 Active Dexcom G6 SensorIndications:D M type 2, not at goal (HCC) Use as directed. E11.9 3 Each 3 1 Active Dexcom G6 TransmitterIndicati ons:DM type 2, not at goal (HCC) Use as directed. E11.9 1 Each 1 Active BD Pen Needle Coby 2nd [...] Active Sildenafil Citrate 100 MG Oral Tablet 2 Active metFORMIN HCl ER 750 MG [...] complication, with long-term current use of insulin ([facility]) INJECT 60 UNITS SUBCUTANEOUSLY WITH BREAKFAST, 20 units with lunch AND 60 WITH SUPPER 130 mL 1 4 Active documented as of this encounter (statuses as of 03/08/2024) Active Problems Problem Noted Date Diagnosed Date [...] goal of less than 7.0% 06/05/2020 Old IA (myocardial infarction) 09/25/2019 Type 2 diabetes mellitus wit h complication, with long-term current use of insulin 03/17/2019 Moderate episode of recurrent major depressive d isorder 03/17/2019 Peripheral vascular disease 03/17/2019 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, right 07/11 Overview: HIV negative Non-ischemic cardiomyopathy 02/26/2014 HTN, goal below 130/80 02/26/2014 History of heroin abuse 02/26/2014 Hepatitis C documented as of this encounter (statuses as of 03/08/2024) Resolved Problems Problem Noted Date Diagnosed Date [...] as of this encounter (statuses as of 03/08/2024) Immunizations Name Administration Dates Next Due COVID-19 mRNA, LNP-s, No Pre serve, 2-Dose Series (Pfizer) 09/12/2021,12/18/2020,11/27/2020 Hepatitis B, 20+ yrs 07/26/2015,03/01/2015,11/29 Pneumococcal Conjugate Vacci ne, 20-valent ([id number]) 07/15/2022 Pneumococcal Polysaccharide PPV23 (Pneumovax) 02/26/2014 Seasonal [...] on file documented as of this encounter Plan of Treatment Upcoming Encounters Date Type Department Care Team (Late st Contact Info) Description 03/15/2024 2:40 PM EDT [facility] [place] [address] [facility] [address] [place] [address] [facility] [address] 03/29/2024 9:00 AM EDT Hospital Encounter ENDO OSS, Endoscopy Room [facility] [address] [place] [phone] Kandice Arevalo MD [address] [place] [address] 03/29/2024 9:00 AM EDT - 03/29/2024 9:30 AM EDT Surgery ENDO OSS, Endoscopy Room [facility] [address] [place] [phone] Kandice Arevalo MD [address] [facility] [address] COLONOSCOPY FLEXIBLE PROXIMAL DIAGNOSTIC 07/11/2024 10:20 AM EDT Office Visit Nutrition & Weight Management, [facility] [address] [place] [address] Gracia Mcclendon PA-C [address] [place] [address] 08/01/2024 10:00 AM EDT Office Visit Family Practice [facility] [address] [facility] [place] [address] Willam Fofana, DO [address] [facility] [place] [address] 02/02/2025 10:15 AM EDT Office Visit [address] [address] Mason Jean-Baptiste MD [address] [place] [address] Scheduled Procedures Name Priority Associated Diagnoses Date/Ti me COLONOSCOPY FLEXIBLE PROXIMAL DIAGNOSTIC Recall History of colon polyps 03/29/2024 9:00 AM EDT Health Maintenance Due Date Last Done Comments Cologuard 2007 Fecal Occult Blood Test 2007 Sigmoidoscopy 2007 Diabetic Foot Exam 11/20/2023 11/20/2022, 0 06/25/2021, 05/28/2020, Additional history exists Colonoscopy 01/11/2024 01/10/2019, 11/12, 09/25/2014 Colorectal Cancer Screening 01/11/2024 DTaP,Tdap,and Td Vaccines (2 - Td or Tdap) 02/27/2024 02/26/2014 B-12 07/20/2024 07/20/2023, 11/12, 05/28/2020, Additional history exists HbA1c 07/25/2024 01/24/2024, 11/0 04/2023, 07/20/2023, Additional history exists Albumin/Creatinine Ratio 08/13/2024 023, 07/20/2023, 06/11/2021, Additional history exists GFR 01/23/2025 01/24/2024, 02/0 12/2022, 05/08/2022, Additional history exists Diabetic Eye Exam 02/01/2025 02/02/2024, , 08/31/2023, Additional history exists Lipid Panel 08/31/2028 08/31/2023, 04/11, 06/11/2021, Additional history exists Hepatitis B Completed 07/26/2015, 02/09, 11/29/2014 RETIRED - COLONOSCOPY-EVERY 5 YRS AGES 18-100 Discontinued 01/10/2019, 12/04/2015, 09/25/2014 Zoster Vaccines Completed 03/11/2020, 10/13/2019 Pneumococcal Vaccine: Pediatrics (0 to 5 Years) and At-Risk Patients (6 to 64 Years) Completed 07/15/2022, 02/26/2014 Influenza Vaccine (FLU shot) Completed 07/06/2023, 07/15/2022, 06/25/2021, Additional history exists COVID-19 Vaccine Completed 11/07/2023, 09/2022, 05/07/2022, Additional history exists GARDASIL-HPV IMMUNIZATION SERIES Aged Out No longer eligible based on patient's age to complete this topic MENINGOCOCCAL (MENACTRA/MENVEO) Aged Out No longer eligible based on patient's age to complete this topic documented as of this encounter Medical Devices Not on filedocumented as of this encounter Care Teams Security Control Room Officer Relationship Specialty Start Date End Date Willam Fofana DO [address] [place] [address] PCP - General Family Medicine 04/26/17 documented as of this encounter
--- OUTSIDE RECORDS SUMMARY | 2024-03-23 02:34 | External Medical Summary | Summary of Care ---
Author Name Unknown Organization [facility] Address [address] [place] [address] Phone [phone] Care Team Providers Care Skid Adzer Name Role Phone Willam Fofana DO Primary Care Provider Reason for Visit * Reason Comments Outpatient Testing Encounter Details Date Type Department Care Team (Late st Contact Info) Description 01/24/2024 11:30 AM EDT Laboratory Laboratory, [place] [address] [place] [address] [place], [facility] [address] [place] [address] Type 2 diabetes mellitus with hemoglobin A1c goal of less than 7.0% ([facility]); Type 2 diabetes mellitus with complication, with long-term current use of insulin ([facility]); Hypertension, unspecified type Allergies Active Allergy Reactions Criticality Noted Date [...] call 911. 25 Tab 11 5 Active Chromium-Cinnamon 50-500 MCG-MG CAPS Take [...] Informant: Patient, Reported on 10/21/2022 Dexcom G6 [employer] Clerk DeviceIndications:D M type 2, not at goal [...] yrs 07/26/2015,03/01/2015,11/29 Pneumococcal Conjugate Vacci ne, 20-valent ([id number]) 07/15/2022 Pneumococcal Polysaccharide PPV23 (Pneumovax) 02/26/2014 Seasonal [...] Description 01/26/2024 9:00 AM EDT Office Visit Family Practice [facility] [address] [facility] [place] [address] Willam Fofana, 200 [facility] [place] [address] 01/31/2024 2:30 PM EDT Office Visit Pharmacy, [place] [address] [place] [address] [place] [address] [place] [address] 02/02/2024 8:30 AM EDT Office Visit [facility] Eye [address] [address] Mason Jean-Baptiste MD [address] [place] [address] 03/29/2024 9:00 AM EDT Hospital Encounter ENDO [facility], [facility] [address] [facility] [place] [phone] Kandice Arevalo MD [address] [place] [address] 03/29/2024 9:00 AM EDT - 03/29/2024 9:30 AM EDT Surgery ENDO [facility]C, Endoscopy Room [facility] [address] [facility] [place] [address] Kandice Arevalo MD [address] [place] [address] COLONOSCOPY FLEXIBLE PROXIMAL DIAGNOSTIC 07/11/2024 10:20 AM EDT Office Visit Nutrition & Weight Management, [facility] [address] [place] [address] Gracia Mcclendon PA-C [address] [place] [address] Pending Results Name Type Priority Associated Diagnoses Date /Time HEMOGLOBIN A1C Lab Routine Type 2 diabetes mellitus with hemoglobin A1c goal of less than 7.0% (HCC) Type 2 diabetes mellitus with complication, with long-term current use of insulin (HCC) 01/24/2024 11:36 AM EDT COMPREHENSIVE METABOLIC PANEL Lab Routine Hypertension, unspecified type 01/24/2024 11:36 AM EDT Scheduled Procedures Name Priority Associated Diagnoses Date/Ti [...] as of this encounter Visit Diagnoses Diagnosis Type 2 diabetes mellitus with hemoglobin A1c goal of less than 7.0% (HCC) Type 2 diabetes mellitus with complication, with long-term current use of insulin (HCC) Hypertension, unspecified type History of colon polyps Personal history of colonic polyps documented in this encounter Care Teams Skid Adzer Relationship Specialty Start Date End Date Willam Fofana DO [address] [place] [address] PCP - General Family Medicine 04/26/17 documented as of this encounter
--- OUTSIDE RECORDS SUMMARY | 2024-03-23 02:34 | External Medical Summary ---
Author Name Unknown Address Unknown Organization K01:LABORATORY [facility] - [address] [facility] [place]. [facility] [address] Laboratory Report Ordering Provider Test Date Status BELÉNKATHRINEJohn 01/24/2024 11:36:28 Final Observation Date Value Abnormality Reference (Units ) Status HbA1C 01/24/2024 11:36:28 10.7 Above high normal 4. 0-5.6 (%) Final The use of HbA1c to monitor glycemic status is based on normal hemoglobin and HbA composition. This test should not be used in patients with abnormal hemoglobin that affects the half life of the red blood cell or the in vivo glycation rates. Glucose, estimated average 01/24/2024 11:36:28 260 Above high normal <126 (mg/dL) Jonas cabrera Performing Location LABORATORY [facility] - [address] [facility] [address]
--- OUTSIDE RECORDS SUMMARY | 2024-03-23 02:34 | External Medical Summary ---
Author Name Unknown Address Unknown Organization [id number]:[facility] [place] [address] [facility]. [place] [address] Laboratory Report Ordering Provider Test Date Status OLEG SKINNER 01/24/2024 11:36:28 Final Observation Date Value Abnormality Reference (Units ) Status BUN 01/24/2024 11:36:28 31 Above high normal 6-20 (mg/dL) Final Creatinine 01/24/2024 11:36:28 0.9 0.6-1.2 (mg/dL) Final Glomerular filtration rate/1.73 sq M.predicted [Volume Rate/Area] in Serum, Plasma or Blood by Creatinine-based formula (CKD-EPI) 01/24/2024 11:36:28 >90 >=60 (mL/min) Final eGFR is calculated based on the CKD-EPI 2020 equation Sodium 01/24/2024 11:36:28 141 135-146 (m mol/L) Final Potassium 01/24/2024 11:36:28 5.3 Above high normal 3. 5-5.1 (mmol/L) Final Cl 01/24/2024 11:36:28 104 98-107 (mm ol/L) Final CO2 01/24/2024 11:36:28 25 22-32 (mmo l/L) Final Anion gap 01/24/2024 11:36:28 12 7-15 (mmol /L) Final Glucose 01/24/2024 11:36:28 136 Above high normal 70 -120 (mg/dL) Final Albumin 01/24/2024 11:36:28 3.6 Below low normal 3.8 -5.0 (g/dL) Final AST (Aspartate aminotransferase) 01/24/2024 11:36:28 30 10-50 (U/L) Fin al Result may be falsely elevat ed due to hemolysis. Alk Phos 01/24/2024 11:36:28 107 35-130 (U/ L) Final Bilirubin, Total 01/24/2024 11:36:28 0.2 <=1 .2 (mg/dL) Final Calcium 01/24/2024 11:36:28 9.0 8.4-10.2 ( mg/dL) Final Protein 01/24/2024 11:36:28 6.1 6.0-8.3 (g /dL) Final ALT (Alanine aminotransferase) 01/24/2024 11:36:28 33 10-50 (U/L) Final Performing Location [facility] [place] [facility] [address] [facility] [address]
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
--- OUTSIDE RECORDS SUMMARY | 2024-03-23 02:34 | External Medical Summary | Summary of Care ---
Author Name Unknown Organization [facility] Address [address] [place] [address] Phone [phone] Care Team Providers Care Cell Builder Name Role Phone Willam Fofana DO Primary Care Provider Reason for Visit * Reason Comments Dosage Adjustment In Person (Anticoag Cl inic) Diabetes Follow-Up Encounter Details Date Type Department Care Team (Late st Contact Info) Description 01/31/2024 2:30 PM EDT Office Visit Pharmacy, [place] [address] [place] [address] [facility] [address] [place] [address] Type 2 diabetes mellitus with hemoglobin A1c goal of less than 7.0% ([facility])*; Type 2 diabetes mellitus with complication, with long-term current use of insulin ([facility]) Allergies Active Allergy Reactions Criticality Noted Date Comments Amoxicillin-Pot Clavulanate Hives High 11/26/19 12 Sulfamethoxazole-Trimethopri m 02/07/2016 Insulin Glargine 01/21/2016 States he went in to CHF after one shot of insulin Other reaction(s): CHF Permethrin 04/27/2013 Shrimp Flavor 04/27/2013 documented as of this encounter (statuses as of 01/31/2024) Medications Medication Sig Dispensed Refills Start Date [...] Informant: Patient, Reported on 10/21/2022 Dexcom G6 Copy Holder DeviceIndications:D M type 2, not at goal [...] hemoglobin A1c goal of less than 7.0% ([facility]) Inject 100 Units under the skin in the morning and 100 Units before bedtime. 60 mL 3 4 Active NovoLOG FlexPen ReliOn 100 UNIT/ML Subcutaneous Solution Pen-injector (insulin aspart)Indications: Type 2 diabetes mellitus with complication, with long-term current use of insulin ([facility]) INJECT 60 UNITS SUBCUTANEOUSLY WITH BREAKFAST, 20 units with lunch AND 60 WITH SUPPER 130 mL 1 4 Active documented as of this encounter (statuses as of 01/31/2024) Active Problems Problem Noted Date Diagnosed Date [...] goal of less than 7.0% 06/05/2020 Old ME (myocardial infarction) 09/25/2019 Type 2 diabetes mellitus wit h complication, with long-term current use of insulin 03/17/2019 Moderate episode of recurrent major depressive d isorder 03/17/2019 Peripheral vascular disease 03/17/2019 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, right 07/11 Overview: HIV negative Non-ischemic cardiomyopathy 02/26/2014 HTN, goal below 130/80 02/26/2014 History of heroin abuse 02/26/2014 Hepatitis C documented as of this encounter (statuses as of 01/31/2024) Resolved Problems Problem Noted Date Diagnosed Date [...] as of this encounter (statuses as of 01/31/2024) Immunizations Name Administration Dates Next Due COVID-19 mRNA, LNP-s, No Pre serve, 2-Dose Series (Pfizer) 09/12/2021,12/18/2020,11/27/2020 Hepatitis B, 20+ yrs 07/26/2015,03/01/2015,11/29 Pneumococcal Conjugate Vacci ne, 20-valent ([id number]) 07/15/2022 Pneumococcal Polysaccharide PPV23 (Pneumovax) 02/26/2014 Seasonal [...] as of this encounter Progress Notes * Lenka Magana, [facility] - 01/31/2024 2:32 PM EDT Images from the original note were not included. Medication Therapy Disease Management Clinic - Diabetes Management Progress Note Facundo Botello, identified by name and date of , is a 63 year old male being seen for diabetesmanagement/education. Patient presents for return diabetic visit. DIABETES: Current diabetic medications: Toujeo Max (U300) 100 units in the AM; 100 units in the PM (2 unit increments) INC Novolog 60 units with breakfast, 20 units with lunch, 60 units with dinner Metformin 750 mg ER two tablets daily in the morning Jardiance 25mg daily Medication Injection Site: Abdomen Lifestyle: Diet: unchanged Glucose Review/SMBG: Readings obtained from patient device Hypoglycemia: Does your blood sugar go below 70 mg/dL? No Hyperglycemia symptoms present: none Recent Labs Units 01/24/24 1136 07/20/23 1118 01/13/23 1059 HEMOGLOBIN A1C - [facility] % 10.7* 10.9* -- HEMOGLOBIN A1C POCT - [facility] % -- -- 7.8* Recent Labs Units 01/24/24 1136 11/13/22 1540 05/08/22 0929 ESTIMATED GLOMERULAR FILTRATION RATE - [facility] mL/min >90 >90 >90 CREATININE - [facility] mg/dL 0.9 0.8 0.8 HYPERTENSION: Patient on ACEi/ARB: yes BP Readings from Last 3 Encounters: 01/26/24 122/72 10/29/23 112/62 07/20/23 114/66 Blood pressure at goal: yes HYPERLIPIDEMIA: Patient is taking moderate or high intensity statin: No Current regimen: none Goal statin intensity: high The 10-year ASCVD risk score (Rc MALDONADO, et al., 2019) is: 15.6% Values used to calculate the score: Age: 63 years Sex: Male Is Non- : No Diabetic: Yes Tobacco smoker: No Systolic Blood Pressure: 122 mmHg Is BP treated: Yes HDL Cholesterol: 46 mg/dL Total Cholesterol: 152 mg/dL Recent Labs Units 08/31/23 1356 05/08/22 0929 LDL CHOLESTEROL (CALCULATED) - [facility] mg/dL 75 90 HEALTH MAINTENANCE REVIEW: Health Maintenance Due Topic Date Due Diabetic Foot Exam 11/20/2023 COLONOSCOPY-EVERY 5 YRS AGES 18-100 01/11/2024 ASSESSMENT & PLAN: ICD-10-CM 1. Type 2 diabetes mellitus with hemoglobin A1c goal of less than 7.0% ([facility]) E11.9 2. Type 2 diabetes mellitus with complication, with long-term current use of insulin ([facility]) E11.8 Z79.4 Considerations: - hx of noncompliance - takes all medications in the morning - hx of pancreatitis in 2015 and 2019 - allergy to lantus (glargine) - does not want to take any higher of a metformin dose BG Readings - Blood sugars uncontrolled. Improvement noted, which is encouraging. Discussed with patient how wildly variable his sugars are. Medications - Reviewed current regimen, patient is not adherent to regimen. He does not always takehis novolog before eating- especially if his sugar is good before the meal. I discussed and explained to him that the insulin is meant to keep his sugar at a good level after the meal. Instructed patient to take insulin before every meal, even if his sugar is good. Showed patient his trends the last two days of his dexcom, specifically at the ~10:30am thi: Explained to patient the reason for us wanting a proactive vs reactive approach with insulin. Diet, Exercise, Lifestyle - Best efforts encouraged . Discussed with patient and instructed him to try to set aside 20-30 minutes . Patient is agreeable to SMBG with Dexcom g6 daily. Patient aware to contact clinic if any hypoglycemia before next visit. MEDICATION CHANGES: no change, proper compliance encouraged. Diabetic Medications: Toujeo Max (U300) 100 units in the AM; 100 units in the PM (2 unit increments) Novolog 60 units with breakfast, 20 units with lunch, 60 units with dinner Metformin 750 mg ER two tablets daily in the morning Jardiance 25mg daily eGFR > 90 mL/min as of 01/26/24 HEALTH MAINTENANCE INTERVENTIONS: Labs: Up to Date Immunizations: Up to Date Foot Exam: due Eye Exam: Up to Date Annual Wellness Visit: N/A FOLLOW UP: Return to clinic in 6 weeks 03/15/2024 Lenka Magana [facility] Clinical Pharmacist - Librarian Assistant Medication Therapy Management Clinic 01/31/2024, 2:32 PM documented in this encounter Plan of Treatment Upcoming Encounters Date Type Department Care Team (Late st Contact Info) Description 02/02/2024 8:30 AM EDT Office Visit [facility] Eye [address] [address] Mason Jean-Baptiste MD [address] [place] [address] 03/15/2024 2:40 PM EDT Office Visit Pharmacy, [address] [address] [facility] [place] [address] 03/29/2024 9:00 AM EDT Hospital Encounter ENDO OSS, Endoscopy Room [address] [place] [phone] Kandice Arevalo MD [address] [place] [address] 03/29/2024 9:00 AM EDT - 03/29/2024 9:30 AM EDT Surgery ENDO O[facility], Endoscopy Room [facility] [address] [facility] [place] [phone] Kandice Arevalo MD [address] [place] [id number] COLONOSCOPY FLEXIBLE PROXIMAL DIAGNOSTIC 07/11/2024 10:20 AM EDT Office Visit Nutrition & Weight Management, [facility] [address] [place] [address] Gracia Mcclendon PA-C [address] [place] [address] 08/01/2024 10:00 AM EDT Office Visit Family Practice [facility] [address] [facility] [place] [address] Willam Fofana DO [address] [facility] [place] [address] Scheduled Procedures Name Priority Associated Diagnoses Date/Ti [...] 12/24/2022, Additional history exists GFR 01/23/2025 01/24/2024, 020 12/2022, 05/08/2022, Additional history exists Lipid Panel 08/31/2028 [...] hemoglobin A1c goal of less than 7.0% (HCC)- Primary Type 2 diabetes mellitus with complication, with long-term current use of insulin (HCC) History of colon polyps Personal history of colonic polyps documented in this encounter Care Teams Cell Builder Relationship Specialty Start Date End Date Willam Fofana DO [address] [place] [address] PCP - General Family Medicine 04/26/17 documented as of this encounter
--- OUTSIDE RECORDS SUMMARY | 2024-03-23 02:35 | External Medical Summary | Summary of Care ---
Author Name Unknown Organization [facility] Address [address] [place] [address] Phone [phone] Care Team Providers Care General Accountant Name Role Phone Willam Fofana DO Primary Care Provider [phone] Reason for Visit * Reason Onset Date Comments Appointment Canceled 01/17/2024 Encounter Details Date Type Department Care Team (Late st Contact Info) Description 01/17/2024 Telephone Sleep Disorders, [facility] [address] [place] [address] [facility], Nurse Sleep Disorders [address] [place] [address] Appointment Canceled Allergies Active Allergy Reactions Criticality Noted Date Comments Amoxicillin-Pot Clavulanate Hives High 11/26/19 12 Sulfamethoxazole-Trimethopri m 02/07/2016 Insulin Glargine 01/21/2016 States he went in to CHF after one shot of insulin Other reaction(s): CHF Permethrin 04/27/2013 Shrimp Flavor 04/27/2013 documented as of this encounter (statuses as of 01/17/2024) Medications Medication Sig Dispensed Refills Start Date End Date Status VITAMIN C 500 MG PO TABS 1000mg daily 0 Active nitroglycerin (NITROSTAT) 0.4 MG SUBLIndications:Inf erior myocardial infarction (HCC) Place 1 Tab under the tongue as needed for Pain, Chest. May repeat 3 times. If chest pain continues, call 911. 51 Tab 11 5 Active Chromium-Cinnamon 50-500 MCG-MG [...] Informant: Patient, Reported on 10/21/2022 Dexcom G6 Finishing And Shipping Supervisor DeviceIndications:D M type 2, not at goal [...] hemoglobin A1c goal of less than 7.0% ([facility]) Inject 100 Units under the skin in the morning and 100 Units before bedtime. 60 mL 3 4 Active NovoLOG FlexPen ReliOn 100 UNIT/ML Subcutaneous Solution Pen-injector (insulin aspart)Indications: Type 2 diabetes mellitus with complication, with long-term current use of insulin ([facility]) INJECT 60 UNITS SUBCUTANEOUSLY WITH BREAKFAST, 20 units with lunch AND 60 WITH SUPPER 130 mL 1 4 Active documented as of this encounter (statuses as of 01/17/2024) Active Problems Problem Noted Date Diagnosed Date [...] as of this encounter (statuses as of 01/17/2024) Resolved Problems Problem Noted Date Diagnosed Date [...] as of this encounter (statuses as of 01/17/2024) Immunizations Name Administration Dates Next Due COVID-19 mRNA, LNP-s, No Pre serve, 2-Dose Series (Pfizer) 09/12/2021,12/18/2020,11/27/2020 Hepatitis B, 20+ yrs 07/26/2015,03/01/2015,11/29 Pneumococcal Conjugate Vacci ne, 20-valent ([id number]) 07/15/2022 Pneumococcal Polysaccharide PPV23 (Pneumovax) 02/26/2014 Seasonal [...] encounter Miscellaneous Notes * Telephone Encounter - Katja Sanchez LPN - 01/17/2024 1:11 PM EDT Patient preference to cancel appt in [facility]inic today 01/17/24. Pt states "I returned that machine, I was going to many places and didn't want to take it with me." Reviewed pt's Split Night Study and explained ALEJANDRA severity, discussed effects on body systems. Offered pt to try CPAP again or discuss additional options with the doctor, pt declined. Appt was cancelled . Pt to f/u PRN. documented in this encounter Plan of Treatment Upcoming Encounters Date Type Department Care Team (Late st Contact Info) Description 01/19/2024 3:00 PM EDT Office Visit Pharmacy, [place] [address] [place] [address] [place] [facility] [address] [place] [address] 01/26/2024 9:00 AM EDT Office Visit Family Practice [facility] [address] [facility] [place] [address] Willam Fofana, DO [address] [facility] [place] [address] 02/02/2024 8:30 AM EDT Office Visit [facility] Eye [place] [address] [place] [address] Mason Jean-Baptiste MD [address] [facility] [place] [address] 03/29/2024 9:00 AM EDT Hospital Encounter ENDO [facility], Endoscopy Room [facility] [address] [place] [phone] Kandice Arevalo MD [address] [place] [address] 03/29/2024 9:00 AM EDT - 03/29/2024 9:30 AM EDT Surgery ENDO [facility], Endoscopy Room [facility] [address] [place] [phone] Kandice Arevalo MD [address] [place] [address] COLONOSCOPY FLEXIBLE PROXIMAL DIAGNOSTIC 07/11/2024 10:20 AM EDT Office Visit Nutrition & Weight Management, [facility] [address] [place] [address] Gracia Mcclendon PA-C [address] [place] [address] Scheduled Procedures Name Priority Associated Diagnoses Date/Ti [...] filedocumented as of this encounter Care Teams General Accountant Relationship Specialty Start Date End Date Willam Fofana DO [address] [place] [address] PCP - General Family Medicine 04/26/17 documented as of this encounter
--- OUTSIDE RECORDS SUMMARY | 2024-03-23 02:35 | External Medical Summary | Summary of Care ---
Author Name Unknown Organization [facility] Address [address] [place] [address] Phone [phone] Care Team Providers Care Dielectric Embossing Machine Operator Name Role Phone Willam Fofana DO Primary Care Provider Encounter Details Date Type Department Care Team (Late st Contact Info) Description 12/27/2023 Orders Only PATIENT PORTAL DO NOT DELETE THIS DEPT USED BY [place] [id number] Allergies Active Allergy Reactions Criticality Noted Date Comments Amoxicillin-Pot Clavulanate Hives High 11/26/19 12 Sulfamethoxazole-Trimethopri m 02/07/2016 Insulin Glargine 01/21/2016 States he went in to CHF after one shot of insulin Other reaction(s): CHF Permethrin 04/27/2013 Shrimp Flavor 04/27/2013 documented as of this encounter (statuses as of 12/27/2023) Medications Medication Sig Dispensed Refills Start Date [...] Coagulans-Inulin (PROBIOTIC) 1-250 BILLION-MG CAPS daily. 0 03/15/202 0 Active Multiple Vitamins-Minerals (MULTIVITAMIN ADULT) TABS [...] Informant: Patient, Reported on 10/21/2022 Dexcom G6 Securities Compliance Examiner DeviceIndications:D M type 2, not at goal [...] hemoglobin A1c goal of less than 7.0% ([facility]) Inject 100 Units under the skin in the morning and 100 Units before bedtime. 60 mL 3 4 Active NovoLOG FlexPen ReliOn 100 UNIT/ML Subcutaneous Solution Pen-injector (insulin aspart)Indications: Type 2 diabetes mellitus with complication, with long-term current use of insulin ([facility]) INJECT 60 UNITS SUBCUTANEOUSLY WITH BREAKFAST, 20 units with lunch AND 60 WITH SUPPER 130 mL 1 4 Active documented as of this encounter (statuses as of 12/27/2023) Active Problems Problem Noted Date Diagnosed Date [...] goal of less than 7.0% 06/05/2020 Old [place] (myocardial infarction) 09/25/2019 Type 2 diabetes mellitus wit h complication, with long-term current use of insulin 03/17/2019 Moderate episode of recurrent major depressive d isorder 03/17/2019 Peripheral vascular disease 03/17/2019 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, right 07/11 Overview: HIV negative Non-ischemic cardiomyopathy 02/26/2014 HTN, goal below 130/80 02/26/2014 History of heroin abuse 02/26/2014 Hepatitis C documented as of this encounter (statuses as of 12/27/2023) Resolved Problems Problem Noted Date Diagnosed Date [...] as of this encounter (statuses as of 12/27/2023) Immunizations Name Administration Dates Next Due COVID-19 mRNA, LNP-s, No Pre serve, 2-Dose Series (DrinkSendo) 09/12/2021,12/18/2020,11/27/2020 Hepatitis B, 20+ yrs 07/26/2015,03/01/2015,11/29 Pneumococcal Conjugate Vacci ne, 20-valent ([id number]) 07/15/2022 Pneumococcal Polysaccharide PPV23 (Pneumovax) 02/26/2014 Seasonal [...] Team (Late st Contact Info) Description 01/17/2024 1:00 PM EDT Office Visit Sleep Disorders, [facility] [address] [place] [address] Kristin [facility] [address] [facility] [place] [address] 01/19/2024 3:00 PM EDT Office Visit Pharmacy, [place] [address] [place] [address] [facility] [address] [place] [address] 01/26/2024 9:00 AM EDT Office Visit Family Practice [facility] [address] [facility] [address] Willam Fofana DO [address] [facility] [place] [address] 02/02/2024 8:30 AM EDT Office Visit [address] [address] Mason Jean-Baptiste MD [address] [place] [address] Scheduled Procedures Name Priority Associated Diagnoses Date/Ti me COLONOSCOPY FLEXIBLE PROXIMAL DIAGNOSTIC Recall History of colon polyps Health Maintenance Due Date Last Done Comments [...] 08/31/2024 08/31/2023, , 12/24/2022, Additional history exists Depression Screening 11/11/2024 11/11/2023 Lipid Panel 08/31/2028 08/31/2023, 04/11, 06/11/2021, Additional [...] filedocumented as of this encounter Care Teams Dielectric Embossing Machine Operator Relationship Specialty Start Date End Date Willam Fofana DO [address] [place] [address] PCP - General Family Medicine 04/26/17 documented as of this encounter
--- OUTSIDE RECORDS SUMMARY | 2024-03-23 02:35 | External Medical Summary | Summary of Care ---
Author Name Unknown Organization [facility] Address [address] [place] [address] Phone [phone] Care Team Providers Care Circus Performer Name Role Phone Willam Fofana DO Primary Care Provider [phone] Reason for Referral * Ancillary Services (Within 30 days (routine)) - Authorized Specialty Diagnoses / Procedures Referred By Contbrittany t Referred To Contact Gastroenterology Diagnoses Screening for malignant neoplasm of colon Willam Fofana DO [address] [place] [address] Referral ID Status Reason Start Date Expiration Date Visits Requested Visits Authorized [id number] Authorized Ancillary Services Required 12/30/2023 1 1 Question Answer Referral Priority Within 30 days (routine) Where should this appointment be scheduled? [facility]i Simpson ALERT: Do not order for pediatric patients (18 years or younger). Cancel off screen and order PEDS GASTROENTEROLOGY CONSULT (Type: 1 visit only-Evaluate and Treat) The following Pt. Instructions are available: - Gastro Colonoscopy Prep Instructions [[id number]] - Gastro Colonoscopy Prep Instructions (Anguillan Version) [[id number]] Go to the Pt. Instructions section within the Visit Navigator to access. Colonoscopy ASGE Guidelines: Average risk screening (begin at age 50, 10 year intervals) ADDITIONAL INFORMATION 1. Is the patient on Coumadin? No 2. Is the patient on Pradaxa? No Reason for Visit * Reason Onset Date Comments Health Maintenance 12/30/2023 Encounter Details Date Type Department Care Team ([facility] Contact Info) Description 12/30/2023 Telephone Family Practice [facility] [place] [address] [facility] [place] [address] Willam Fofana, DO [address] [facility] [place] [address] Health Maintenance Allergies Active Allergy Reactions Criticality Noted Date Comments Amoxicillin-Pot Clavulanate Hives High 11/26/19 12 Sulfamethoxazole-Trimethopri m 02/07/2016 Insulin Glargine 01/21/2016 States he went in to CHF after one shot of insulin Other reaction(s): CHF Permethrin 04/27/2013 Shrimp Flavor 04/27/2013 documented as of this encounter (statuses as of 12/30/2023) Medications Medication Sig Dispensed Refills Start Date [...] Informant: Patient, Reported on 10/21/2022 Dexcom G6 Medical Intern DeviceIndications:D M type 2, not at goal [...] the morning. 30 Capsule 11 3 Active Travis Stinson SoloStar 300 UNIT/ML Subcutaneous Solution Pen-injector (Insulin Glargine (2 Unit Dial))Indications:T ype 2 diabetes mellitus with hemoglobin A1c goal of less than 7.0% ([facility]) Inject 100 Units under the skin in the morning and 100 Units before bedtime. 60 mL 3 4 Active NovoLOG FlexPen ReliOn 100 UNIT/ML Subcutaneous Solution Pen-injector (insulin aspart)Indications: Type 2 diabetes mellitus with complication, with long-term current use of insulin ([facility]) INJECT 60 UNITS SUBCUTANEOUSLY WITH BREAKFAST, 20 units with lunch AND 60 WITH SUPPER 130 mL 1 4 Active documented as of this encounter (statuses as of 12/30/2023) Active Problems Problem Noted Date Diagnosed Date [...] goal of less than 7.0% 06/05/2020 Old [place] (myocardial infarction) 09/25/2019 Type 2 diabetes mellitus wit h complication, with long-term current use of insulin 03/17/2019 Moderate episode of recurrent major depressive d isorder 03/17/2019 Peripheral vascular disease 03/17/2019 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, right 07/11 Overview: HIV negative Non-ischemic cardiomyopathy 02/26/2014 HTN, goal below 130/80 02/26/2014 History of heroin abuse 02/26/2014 Hepatitis C documented as of this encounter (statuses as of 12/30/2023) Resolved Problems Problem Noted Date Diagnosed Date [...] as of this encounter (statuses as of 12/30/2023) Immunizations Name Administration Dates Next Due COVID-19 mRNA, LNP-s, No Pre serve, 2-Dose Series (Immediately) 09/12/2021,12/18/2020,11/27/2020 Hepatitis B, 20+ yrs 07/26/2015,03/01/2015,11/29 Pneumococcal Conjugate Vacci ne, 20-valent ([id number]) 07/15/2022 Pneumococcal Polysaccharide PPV23 (Pneumovax) 02/26/2014 Seasonal [...] as of this encounter Miscellaneous Notes * Addendum Note - Gerber Tapia LPN - 12/30/2023 2:51 PM EDTAddended by: GERBER TAPIA on: 12/30/2023 02:51 PM Modules accepted: Orders * Telephone Encounter - Gerber Tapia LPN - 12/30/2023 2:50 PM EDT Please assist patient in scheduling colonoscopy. Order placed/screening questions answered. * Telephone Encounter - Gerber Tapia LPN - 12/30/2023 2:48 PM EDT Spoke to patient. Labs ordered. Will walk in Colon ok to schedule. Sent to endoscopy. * Telephone Encounter - Gerber Tapia LPN - 12/30/2023 11:33 AM EDT Care Gaps Comprehensive Care Outreach Last Office/Telemedicine Visit: 10/29/2023 (in office), 01/26/2020 (telemedicine) Next Office Visit: 01/26/2024 Hemoglobin AIC Results: Lab Results Component Value Date/Time HEMOGLOBIN A1C - [facility] 10.9 (H) 07/20/2023 11:18 AM HEMOGLOBIN A1C - [facility] 8.9 (H) 05/08/2022 09:29 AM HEMOGLOBIN A1C - [facility] 9.2 (H) 12/05/2021 01:30 PM HEMOGLOBIN A1C - [facility] 10.4 (H) 05/28/2020 11:31 AM HEMOGLOBIN A1C - [facility] 10.2 (H) 03/15/2020 03:20 PM HEMOGLOBIN A1C - [facility] 9.9 (H) 09/25/2019 01:03 PM HEMOGLOBIN A1C POCT - [facility] 7.8 (H) 01/13/2023 10:59 AM HEMOGLOBIN A1C POCT - [facility] 9.0 (H) 09/02/2022 02:09 PM HEMOGLOBIN A1C POCT - [facility] 9.4 (H) 09/10/2021 03:04 PM HEMOGLOBIN A1C, DBS - [facility] >8.0 (H) 08/17/2023 09:59 AM BP Readings from Last 1 Encounters: 10/29/23 112/62 Reviewed Health Maintenance below: Health Maintenance Topic Date Due GFR 11/13/2023 Diabetic Foot Exam 11/20/2023 COLONOSCOPY-EVERY 5 YRS AGES 18-100 01/11/2024 HbA1c 02/15/2024 DTaP,Tdap,and Td Vaccines (2 - Td or Tdap) 02/27/2024 B-12 07/20/2024 Albumin/Creatinine Ratio 08/13/2024 Diabetic Eye Exam 08/31/2024 Labs colon Care Gap Outreach Action Taken: Left message documented in this encounter Plan of Treatment Upcoming Encounters Date Type Department Care Team (Late st Contact Info) Description 01/17/2024 1:00 PM EDT Office Visit Sleep Disorders, [facility] [address] [place] [address] Kristin Zimmerman MD 400 [place] [address] 01/19/2024 3:00 PM EDT Office Visit Pharmacy, [place] [address] [place] [address] [facility] [address] [place] [address] 01/26/2024 9:00 AM EDT Office Visit Family Practice [facility]ara [place] [address] [facility] [place] [address] Willam Fofana DO 200 [facility] [place] [address] 02/02/2024 8:30 AM EDT Office Visit [facility] [address] [place] [address] Mason Jean-Baptiste MD [address] [place] [address] Scheduled Orders Name Type Priority Associated Diagnoses Orde r Schedule COMPREHENSIVE METABOLIC PANEL Lab Routine Hypertension, unspecified type Expected: 12/30/2023, Expires: 12/29/2024 Scheduled Procedures Name Priority Associated Diagnoses Date/Ti me COLONOSCOPY FLEXIBLE PROXIMAL DIAGNOSTIC Recall History of colon polyps Scheduled Referrals Name Type Priority Associated Diagnoses Orde r Schedule COLONOSCOPY, GI REFERRAL OP Referral Within 30 days (routine) Screening for malignant neoplasm of colon Ordered: 12/30/2023 Health Maintenance Due Date Last Done Comments [...] as of this encounter Visit Diagnoses Diagnosis Hypertension, unspecified type- Primary Screening for malignant neoplasm of colon documented in this encounter Care Teams Circus Performer Relationship Specialty Start Date End Date Willam Fofana DO [address] [place] [address] PCP - General Family Medicine 04/26/17 documented as of this encounter
--- OUTSIDE RECORDS SUMMARY | 2024-03-23 02:35 | External Medical Summary | Summary of Care ---
Author Name Unknown Organization [facility] Address [address] [place] [address] Phone [phone] Care Team Providers Care Outboard Motorboat Operator Name Role Phone Willam Fofana DO Primary Care Provider Reason for Visit * Reason Comments Dosage Adjustment In Person (Anticoag Cl inic) Diabetes Follow-Up Encounter Details Date Type Department Care Team (Late st Contact Info) Description 12/22/2023 1:30 PM EDT Office Visit Pharmacy, [place] [address] [place] [address] [facility] [address] [place] [address] Type 2 diabetes mellitus with hemoglobin A1c goal of less than 7.0% ([facility])*; Type 2 diabetes mellitus with complication, with long-term current use of insulin ([facility]) Allergies Active Allergy Reactions Criticality Noted Date Comments Amoxicillin-Pot Clavulanate Hives High 11/26/19 12 Sulfamethoxazole-Trimethopri m 02/07/2016 Insulin Glargine 01/21/2016 States he went in to CHF after one shot of insulin Other reaction(s): CHF Permethrin 04/27/2013 Shrimp Flavor 04/27/2013 documented as of this encounter (statuses as of 12/22/2023) Medications Medication Sig Dispensed Refills Start Date End Date Status VITAMIN C 500 MG PO TABS 1000mg daily 0 Active nitroglycerin (NITROSTAT) 0.4 MG SUBLIndications:In ferior myocardial infarction (HCC) Place 1 Tab under [...] 0 Active Furosemide 40 MG Oral Tablet (LASIX)Indications :Non-ischemic cardiomyopathy (HCC) TAKE 2 TABLETS BY MOUTH IN THE MORNING AND 1 TABLET IN THE AFTERNOON 270 Tab 3 0 Active Additional Information Patient taking differently: 120 mg Daily(AM), TAKE 2 TABLETS BY MOUTH IN THE MORNING AND 1 TABLET IN THE AFTERNOONPatient takes 3 tabs in AM, Informant: Patient, Reported on 10/21/2022 Dexcom G6 Material Assistant DeviceIndications: DM type 2, not at goal (HCC) Use as directed. E11.9 1 Each 0 1 Active Dexcom G6 SensorIndications: DM type 2, not at goal (HCC) Use as directed. E11.9 3 Each 3 1 Active Dexcom G6 TransmitterIndicat ions:DM type 2, not at goal (HCC) Use [...] Oral Tablet Extended Release 24 Hour (toPROL XL)Indications:Non -ischemic cardiomyopathy (HCC),Sinus tachycardia Take 1 tablet by mouth twice daily 180 Tablet 3 2 Active Spironolactone 25 MG Oral Tablet (Aldactone)Indicat ions:Non-ischemic cardiomyopathy (HCC),HTN, goal below 130/80 Take 1 Tablet (25 mg) by mouth in the morning. 90 Tablet 3 2 Active Sildenafil Citrate 100 MG Oral Tablet 0 2 Active metFORMIN HCl ER 750 MG Oral Tablet Extended Release 24 Hour (Glucophage XR)Indications:Typ e 2 diabetes mellitus with hemoglobin A1c goal of less than 8.0% (HCC) Take 2 Tablets by mouth in the morning. 180 Tablet 1 3 Active buPROPion HCl ER (XL) 300 MG Oral Tablet Extended Release 24 Hour (Wellbutrin XL)Indications:Mod erate episode of recurrent major depressive disorder (HCC) Take 1 Tablet by mouth in the morning. 90 Tablet 3 3 Active Empagliflozin 25 MG Oral Tablet (Jardiance)Indicat ions:Type 2 diabetes mellitus with hemoglobin A1c goal of less than 7.0% (HCC) Take 1 Tablet by mouth in the morning. 90 Tablet 3 3 Active Lisinopril 20 MG Oral Tablet (Prinivil) Take 1 Tablet by mouth in the morning. 30 Tablet 11 3 Active Sertraline HCl 100 MG Oral Tablet (Zoloft)Indication s:Moderate episode of recurrent major depressive disorder (HCC) Take 1 Tablet by mouth in the morning. 90 Tablet 3 3 Active Tamsulosin HCl 0.4 MG Oral Capsule (Flomax)Indication s:Recurrent UTI Take 1 Capsule by mouth in the morning. 30 Capsule 11 3 Active Toujeo Max SoloStar 300 UNIT/ML Subcutaneous Solution Pen-injector (Insulin Glargine (2 Unit Dial))Indications: Type 2 diabetes mellitus with hemoglobin A1c goal of less than 7.0% ([facility]) Inject 100 Units under the skin in the morning and 100 Units before bedtime. 60 mL 3 4 Active NovoLOG FlexPen ReliOn 100 UNIT/ML Subcutaneous Solution Pen-injector (insulin aspart)Indications :Type 2 diabetes mellitus with complication, with long-term current use of insulin ([facility]) INJECT 60 UNITS SUBCUTANEOUSLY WITH BREAKFAST, 20 units with lunch AND 60 WITH SUPPER 130 mL 1 4 Active NovoLOG FlexPen ReliOn 100 UNIT/ML Subcutaneous Solution Pen-injector (insulin aspart)Indications :Type 2 diabetes mellitus with complication, with long-term current use of insulin ([facility]) INJECT 45 UNITS SUBCUTANEOUSLY WITH BREAKFAST AND 50 WITH SUPPER DIRECTED PLUS SLIDING SCALE, MAX 120 UNITS DAILY 115 mL 1 3 12/22/19 24 Discontin ued(Refil l) documented as of this encounter (statuses as of 12/22/2023) Active Problems Problem Noted Date Diagnosed Date [...] goal of less than 7.0% 06/05/2020 Old [place] (myocardial infarction) 09/25/2019 Type 2 diabetes mellitus wit h complication, with long-term current use of insulin 03/17/2019 Moderate episode of recurrent major depressive d isorder 03/17/2019 Peripheral vascular disease 03/17/2019 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, right 07/11 Overview: HIV negative Non-ischemic cardiomyopathy 02/26/2014 HTN, goal below 130/80 02/26/2014 History of heroin abuse 02/26/2014 Hepatitis C documented as of this encounter (statuses as of 12/22/2023) Resolved Problems Problem Noted Date Diagnosed Date [...] as of this encounter (statuses as of 12/22/2023) Immunizations Name Administration Dates Next Due COVID-19 mRNA, LNP-s, No Pre serve, 2-Dose Series ([employer]) 09/12/2021,12/18/2020,11/27/2020 Hepatitis B, 20+ yrs 07/26/2015,03/01/2015,11/29 Pneumococcal Conjugate Vacci ne, 20-valent ([id number]) 07/15/2022 Pneumococcal Polysaccharide PPV23 (Pneumovax) 02/26/2014 Seasonal [...] this encounter Progress Notes * Lenka Magana, [facility] - 12/22/2023 1:42 PM EDT Images from the original note [...] unit increments) Novolog 60 units with breakfast, 60 units with dinner [at least 50 units before a meal] Metformin 750 mg ER two tablets daily in the morning Jardiance 25mg daily Medication Injection Site: Abdomen Lifestyle: Diet: unchanged Glucose Review/SMBG: Readings obtained from patient device Hypoglycemia: Does your blood sugar go below 70 mg/dL? No Hyperglycemia symptoms present: Not today, but patient frequents ER due to hyperglycemia Recent Labs Units 07/20/23 1118 01/13/23 1059 09/02/22 1409 HEMOGLOBIN A1C - [facility] % 10.9* -- -- HEMOGLOBIN A1C POCT - [facility] % -- 7.8* 9.0* Recent Labs Units 11/13/22 1540 05/08/22 0929 ESTIMATED GLOMERULAR FILTRATION RATE - [facility] mL/min >90 >90 CREATININE - [facility] mg/dL 0.8 0.8 HYPERTENSION: Patient on ACEi/ARB: yes BP Readings from Last 3 Encounters: 10/29/23 112/62 07/20/23 114/66 07/06/23 122/62 Blood pressure at goal: yes HYPERLIPIDEMIA: Patient is taking moderate or high intensity statin: No Current regimen: none Goal statin intensity: high The 10-year ASCVD risk score (Rc MALDONADO, et al., 2019) is: 13.5% Values used to calculate the score: Age: 63 years Sex: Male Is Non- : No Diabetic: Yes Tobacco smoker: No Systolic Blood Pressure: 112 mmHg Is BP treated: Yes HDL Cholesterol: 46 mg/dL Total Cholesterol: 152 mg/dL Recent Labs Units 08/31/23 1356 05/08/22 0929 LDL CHOLESTEROL (CALCULATED) - [facility] mg/dL 75 90 HEALTH MAINTENANCE REVIEW: Health Maintenance Due Topic Date Due GFR 11/13/2023 Diabetic Foot Exam 11/20/2023 COLONOSCOPY-EVERY 5 YRS AGES 18-100 01/11/2024 ASSESSMENT & PLAN: ICD-10-CM 1. Type 2 diabetes mellitus with hemoglobin A1c goal of less than 7.0% ([facility]) E11.9 2. Type 2 diabetes mellitus with complication, with long-term current use of insulin (HCC) E11.8 Z79.4 Considerations: - hx of noncompliance - takes all medications in the morning - hx of pancreatitis in 2015 and 2019 - allergy to lantus (glargine) BG Readings - Blood sugars uncontrolled. Pt presented to visit today 11 minutes late. Pt presented with a "low blood sugar" (71) on dexcom. He had a piece of hard candy, and rechecked with a fingerstick and blood sugar was 112. Reviewed the importance of testing via fingerstick before treating a low blood sugar identified by dexcom. Medications - Reviewed current regimen, patient states he is adherent to his regimen. MTM is not convinced, considering his very high doses of insulin, yet sugars averaging 277. Discussed this with patient. He admits that he has only been taking 1 tablet of metformin. Encouraged patient to take 2 tablets daily. Patient will try. Patient does not currently take any insulin when eating lunch. Advised he start with 20 units of novolog. At this time, will not advise of any increases in basal insulin due to very high amounts as it is, and the concern that patient is non-adherent to it, but if he does start consistently taking the insulin, his blood sugars would drop too much. Glp is not an option considering his hx of pancreatitis. Diet, Exercise, Lifestyle - Discussed with patient that he needs to put his own health as a priority . Discussed with patient about limiting carb intake. Encouraged patient to go for walks now that the weather is nice. Patient is agreeable to SMBG with Dexcom [id number]. Patient aware to contact clinic if any hypoglycemia before next visit. MEDICATION CHANGES: yes, see below; preferred pharmacy: [facility] Medications: Toujeo Max (U300) 100 units in the AM; 100 units in the PM (2 unit increments) INC Novolog 60 units with breakfast, 20 units with lunch, 60 units with dinner Metformin 750 mg ER two tablets daily in the morning Jardiance 25mg daily HEALTH MAINTENANCE INTERVENTIONS: Labs: due for a1c Immunizations: Up to Date Foot Exam: due Eye Exam: Up to Date Annual Wellness Visit: N/A FOLLOW UP: Return to clinic in 4 weeks 01/19/2024 Lenka Magana [facility] Clinical Pharmacist - X [facility] Physician Medication Therapy [facility] 12/22/2023, 1:42 PM documented in this encounter Plan of Treatment Upcoming Encounters Date Type Department Care Team (Late st Contact Info) Description 01/17/2024 1:00 PM EDT Office Visit Sleep Disorders, [address] [place] [address] Kristin Zimmerman MD [address] [place] [address] 01/19/2024 3:00 PM EDT [address] [address] [facility] [address] [place] [address] [place] [address] 01/26/2024 9:00 AM EDT Office Visit [facility] 200 [facility] [place], [place] [address] Willam Fofana, [address] [place] [address] 02/02/2024 8:30 AM EDT Office Visit [address] [address] Mason Jean-Baptiste MD [address] [place] [address] Scheduled Orders Name Type Priority Associated Diagnoses Orde r Schedule HEMOGLOBIN A1C Lab Routine Type 2 diabetes mellitus with hemoglobin A1c goal of less than 7.0% (HCC) Type 2 diabetes mellitus with complication, with long-term current use of insulin (HCC) Expected: 12/29/2023 (Approximate), Expires: 12/21/2024 Scheduled Procedures Name Priority Associated Diagnoses Date/Ti [...] with long-term current use of insulin (HCC) documented in this encounter Care Teams Outboard Motorboat Operator Relationship Specialty Start Date End Date Willam Fofana DO [address] [place] [address] PCP - General Family Medicine 04/26/17 documented as of this encounter
--- OUTSIDE RECORDS SUMMARY | 2024-03-23 02:35 | External Medical Summary | Summary of Care ---
Author Name Unknown Organization [facility] Address [address] [place] [address] Phone [phone] Care Team Providers Care Health Equipment Servicer Name Role Phone Willam Fofana DO Primary Care Provider [phone] Reason for Referral * Ancillary Services (Within 30 days (routine)) - Authorized Specialty Diagnoses / Procedures Referred By Contbrittany t Referred To Contact Gastroenterology Diagnoses Screening for malignant neoplasm of colon Willam Fofana DO [address] [place] [address] Referral ID Status Reason Start Date Expiration Date Visits Requested Visits Authorized [id number] Authorized Ancillary Services Required 12/30/2023 1 1 Question Answer Referral Priority Within 30 days (routine) Where should this appointment be scheduled? Tomi Simpson ALERT: Do not order for pediatric patients (18 years or younger). Cancel off screen and order PEDS GASTROENTEROLOGY CONSULT (Type: 1 visit only-Evaluate and Treat) The following Pt. Instructions are available: - Gastro Colonoscopy Prep Instructions [[id number]] - Gastro Colonoscopy Prep Instructions (Namibian Version) [[id number]] Go to the Pt. Instructions section within the Visit Navigator to access. Colonoscopy ASGE Guidelines: Average risk screening (begin at age 50, 10 year intervals) ADDITIONAL INFORMATION 1. Is the patient on Coumadin? No 2. Is the patient on Pradaxa? No Reason for Visit * Reason Onset Date Comments Health Maintenance 12/30/2023 Encounter Details Date Type Department Care Team ([facility] Contact Info) Description 12/30/2023 Telephone Family Practice [facility] [place] 200 [facility] [place] [address] Willam Fofana, DO 200 [facility] [place] [address] Health Maintenance Allergies Active Allergy Reactions Criticality Noted Date Comments Amoxicillin-Pot Clavulanate Hives High 11/26/19 12 Sulfamethoxazole-Trimethopri m 02/07/2016 Insulin Glargine 01/21/2016 States he went in to CHF after one shot of insulin Other reaction(s): CHF Permethrin 04/27/2013 Shrimp Flavor 04/27/2013 documented as of this encounter (statuses as of 01/03/2024) Medications Medication Sig Dispensed Refills Start Date [...] Informant: Patient, Reported on 10/21/2022 Dexcom G6 Rear Load Truck Driver DeviceIndications:D M type 2, not at goal [...] hemoglobin A1c goal of less than 7.0% ([facility]) Inject 100 Units under the skin in the morning and 100 Units before bedtime. 60 mL 3 4 Active NovoLOG FlexPen ReliOn 100 UNIT/ML Subcutaneous Solution Pen-injector (insulin aspart)Indications: Type 2 diabetes mellitus with complication, with long-term current use of insulin ([facility]) INJECT 60 UNITS SUBCUTANEOUSLY WITH BREAKFAST, 20 units with lunch AND 60 WITH SUPPER 130 mL 1 4 Active documented as of this encounter (statuses as of 01/03/2024) Active Problems Problem Noted Date Diagnosed Date [...] as of this encounter (statuses as of 01/03/2024) Resolved Problems Problem Noted Date Diagnosed Date [...] as of this encounter (statuses as of 01/03/2024) Immunizations Name Administration Dates Next Due COVID-19 mRNA, LNP-s, No Pre serve, 2-Dose Series ([employer]) 09/12/2021,12/18/2020,11/27/2020 Hepatitis B, 20+ yrs 07/26/2015,03/01/2015,11/29 Pneumococcal Conjugate Vacci ne, 20-valent ([id number]) 07/15/2022 Pneumococcal Polysaccharide PPV23 (Pneumovax) 02/26/2014 Seasonal [...] encounter Miscellaneous Notes * Telephone Encounter - Zonia Kumar OSA - 01/03/2024 2:27 PM EDT Lmm for pt. * Addendum Note - Gerber Tapia LPN [...] 1:00 PM EDT Office Visit Sleep Disorders, [address] [address] Kristin Zimmerman MD [address] [place] [address] 01/19/2024 3:00 PM EDT Office Visit Pharmacy, [address] [address] [facility] [address] [place] [address] 01/26/2024 9:00 AM EDT Office Visit Family Practice [facility] [address] [place] [address] Willam Fofana, DO [address] [place] [address] 02/02/2024 8:30 AM EDT Office Visit [address] [address] Mason Jean-Baptiste MD [address] [place] [address] Scheduled Orders Name Type Priority Associated Diagnoses [...] colon documented in this encounter Care Teams Health Equipment Servicer Relationship Specialty Start Date End Date Willam Fofana DO [address] [place] [address] PCP - General Family Medicine 04/26/17 documented as of this encounter
--- OUTSIDE RECORDS SUMMARY | 2024-03-23 02:35 | External Medical Summary | Summary of Care ---
Author Name Unknown Organization [facility] Address [address] [place] [address] Phone [phone] Care Team Providers Care Track Mechanic Name Role Phone Willam Fofana DO Primary Care Provider [phone] Reason for Referral * Ancillary Services (Within 30 days (routine)) - Authorized Specialty Diagnoses / Procedures Referred By Contbrittany t Referred To Contact Gastroenterology Diagnoses Screening for malignant neoplasm of colon Willam Fofana DO [address] [place] [address] Referral ID Status Reason Start Date Expiration Date Visits Requested Visits Authorized [id number] Authorized Ancillary Services Required 12/30/2023 1 1 Question Answer Referral Priority Within 30 days (routine) Where should this appointment be scheduled? [facility] ALERT: Do not order for pediatric patients (18 years or younger). Cancel off screen and order PEDS GASTROENTEROLOGY CONSULT (Type: 1 visit only-Evaluate and Treat) The following Pt. Instructions are available: - Gastro Colonoscopy Prep Instructions [31266] - Gastro Colonoscopy Prep Instructions (Ghanaian Version) [[id number]] Go to the Pt. Instructions section within the Visit Navigator to access. Colonoscopy ASGE Guidelines: Average risk screening (begin at age 50, 10 year intervals) ADDITIONAL INFORMATION 1. Is the patient on Coumadin? No 2. Is the patient on Pradaxa? No Reason for Visit * Reason Onset Date Comments Health Maintenance 12/30/2023 Encounter Details Date Type Department Care Team ([facility] Contact Info) Description 12/30/2023 Telephone Family Practice [facility] [place] [address] [facility] [place] [address] Willam Fofana, DO [address] [facility] [place] [address] Health Maintenance Allergies Active Allergy Reactions Criticality [...] Informant: Patient, Reported on 10/21/2022 Dexcom G6 Cement Truck Driver DeviceIndications:D M type 2, not [...] goal of less than 7.0% ([facility]) Inject 100 Units under the skin in the morning and 100 Units before bedtime. 60 mL 3 4 Active NovoLOG FlexPen ReliOn 100 UNIT/ML Subcutaneous Solution Pen-injector (insulin aspart)Indications: Type 2 diabetes mellitus with complication, with long-term current use of insulin ([facility]) INJECT 60 UNITS SUBCUTANEOUSLY WITH BREAKFAST, [...] goal of less than 7.0% 06/05/2020 Old SC (myocardial infarction) 09/25/2019 Type 2 diabetes mellitus [...] mRNA, LNP-s, No Pre serve, 2-Dose Series ([employer]) 09/12/2021,12/18/2020,11/27/2020 Hepatitis B, 20+ yrs 07/26/2015,03/01/2015,11/29 Pneumococcal Conjugate Vacci ne, 20-valent ([id number]) 07/15/2022 Pneumococcal Polysaccharide PPV23 (Pneumovax) 02/26/2014 Seasonal [...] Encounter - Zonia Kumar OSA - 01/03/2024 3:58 PM EDT Spoke to pt, elizabeth'd 03/29/24. * Telephone Encounter - Zonia Kumar OSA [...] 1:00 PM EDT Office Visit [address] Disorders, [address] [place] [id number] Kristin Zimmerman MD [address] [place] [address] 01/19/2024 3:00 PM EDT Office Visit Pharmacy, [address] [address] [facility] [place] [address] 01/26/2024 9:00 AM EDT Office Visit Family Practice [facility] [place] [address] [facility] [place], [place] [address] Willam Fofana, 200 [facility] [place] [address] 02/02/2024 8:30 AM EDT Office Visit [address] [address] Mason Jean-Baptiste MD [address] [place] [address] 03/29/2024 9:00 AM EDT Hospital Encounter ENDO [facility], Endoscopy Room [facility] [address] [place] [id number] Kandice Arevalo MD [address] [place] [address] 03/29/2024 9:00 AM EDT - 03/29/2024 9:30 AM EDT Surgery ENDO [facility], Endoscopy Room [facility] [address] [place] [phone] Kandice Arevalo MD [address] [place] [address] COLONOSCOPY FLEXIBLE PROXIMAL DIAGNOSTIC 07/11/2024 10:20 AM EDT Office Visit Nutrition & Weight Management, [facility] [address] [place] [address] Gracia Mcclendon PA-C [address] [place] [address] Scheduled Orders Name Type Priority Associated Diagnoses Orde r Schedule COMPREHENSIVE METABOLIC PANEL Lab Routine Hypertension, unspecified type Expected: 12/30/2023, Expires: 12/29/2024 Scheduled Procedures Name Priority Associated Diagnoses Date/Ti me COLONOSCOPY FLEXIBLE PROXIMAL DIAGNOSTIC Recall History of colon polyps 03/29/2024 9:00 AM EDT Scheduled Referrals Name Type Priority Associated Diagnoses [...] Primary Screening for malignant neoplasm of colon History of colon polyps Personal history of colonic polyps documented in this encounter Care Teams Track Mechanic Relationship Specialty Start Date End Date Willam Fofana DO [address] [place] [address] PCP - General Family Medicine 04/26/17 documented as of this encounter
--- OUTSIDE RECORDS SUMMARY | 2024-03-23 02:35 | External Medical Summary | Summary of Care ---
Author Name Unknown Organization [facility] Address [address] [place] [address] Phone [phone] Care Team Providers Care Printed Circuit Designer Name Role Phone Willam Fofana DO Primary Care Provider Reason for Visit * Reason Onset Date Comments Health Maintenance 12/30/2023 Encounter Details Date Type Department Care Team (Late st Contact Info) Description 12/30/2023 Telephone Family Practice [facility] [place] [facility] [place] [address] Willam Fofana DO 200 [facility] [place] [address] Health Maintenance Allergies Active Allergy Reactions Criticality [...] times. If chest pain continues, call 911. 60 Tab 11 5 Active Chromium-Cinnamon 50-500 MCG-MG [...] Informant: Patient, Reported on 10/21/2022 Dexcom G6 Associate Merchandise Planner DeviceIndications:D M type 2, not at goal [...] complication, with long-term current use of insulin ([facility]) INJECT 60 UNITS SUBCUTANEOUSLY WITH [...] goal of less than 7.0% 06/05/2020 Old [place] (myocardial infarction) 09/25/2019 Type 2 diabetes mellitus [...] yrs 07/26/2015,03/01/2015,11/29 Pneumococcal Conjugate Vacci ne, 20-valent ([id number]) 07/15/2022 Pneumococcal Polysaccharide PPV23 (Pneumovax) 02/26/2014 Seasonal [...] encounter Miscellaneous Notes * Telephone Encounter - Elizabeth Tapia LPN - 12/30/2023 11:33 AM EDT [...] 1:00 PM EDT Office Visit Sleep Disorders, [facility] [address] [place] [address] Kristin Zimmerman MD [address] [place] [address] 01/19/2024 3:00 PM EDT Office Visit Pharmacy, [place] [address] [place] [address] [facility] [address] [place] [address] 01/26/2024 9:00 AM EDT [facility] [address] [place] [address] Willam Fofana, DO [address] [place] [address] 02/02/2024 8:30 AM EDT Office Visit [facility] [address] [place] [address] Mason Jean-Baptiste MD [address] [place] [address] Scheduled Procedures Name Priority Associated Diagnoses Date/Ti [...] filedocumented as of this encounter Care Teams Printed Circuit Designer Relationship Specialty Start Date End Date Willam Fofana DO [facility] [place] [address] PCP - General Family Medicine 04/26/17 documented as of this encounter
--- OUTSIDE RECORDS SUMMARY | 2024-03-23 02:35 | External Medical Summary | Summary of Care ---
Author Name Unknown Organization [facility] Address [address] [place] [address] Phone [phone] Care Team Providers Care Ledge Man Name Role Phone NitoWillam garza Yinka LU Primary Care Provider [phone] Reason for Visit * Reason Comments Appointment Encounter Details Date Type Department Care Team (Late st Contact Info) Description 12/14/2023 6:10 PM [facility] Pharmacy Pharmacy, [place] [address] [place] [address] [facility] [address] [place] [address] Type 2 diabetes mellitus with hemoglobin A1c goal of less than 7.0% ([facility]; Type 2 diabetes mellitus with complication, with long-term current use of insulin ([facility]) Allergies Active Allergy Reactions Criticality Noted Date Comments Amoxicillin-Pot Clavulanate Hives High 11/26/19 12 Sulfamethoxazole-Trimethopri m 02/07/2016 Insulin Glargine 01/21/2016 States he went in to CHF after one shot of insulin Other reaction(s): CHF Permethrin 04/27/2013 Shrimp Flavor 04/27/2013 documented as of this encounter (statuses as of 12/14/2023) Medications Medication Sig Dispensed Refills Start Date [...] Informant: Patient, Reported on 10/21/2022 Dexcom G6 Owner Consulting Engineer DeviceIndications:D M type 2, not at goal [...] the morning. 90 Tablet 3 3 Active NovoLOG FlexPen ReliOn 100 UNIT/ML Subcutaneous Solution Pen-injector (insulin aspart)Indications: Type 2 diabetes mellitus with complication, with long-term current use of insulin ([facility]) INJECT 45 UNITS SUBCUTANEOUSLY WITH BREAKFAST AND 50 WITH SUPPER DIRECTED PLUS SLIDING SCALE, MAX 120 UNITS DAILY 115 mL 1 3 Active Tamsulosin HCl 0.4 MG Oral Capsule (Flomax)Indications :Recurrent UTI Take 1 Capsule by mouth in the morning. 30 Capsule 11 3 Active Toujeo Max SoloStar 300 UNIT/ML Subcutaneous Solution Pen-injector (Insulin Glargine (2 Unit Dial))Indications:T ype 2 diabetes mellitus with hemoglobin A1c goal of less than 7.0% ([facility]) Inject 100 Units under the skin in the morning and 100 Units before bedtime. 60 mL 3 4 Active documented as of this encounter (statuses as of 12/14/2023) Active Problems Problem Noted Date Diagnosed Date [...] as of this encounter (statuses as of 12/14/2023) Resolved Problems Problem Noted Date Diagnosed Date [...] as of this encounter (statuses as of 12/14/2023) Immunizations Name Administration Dates Next Due COVID-19 mRNA, LNP-s, No Pre serve, 2-Dose Series (Pfizer) 09/12/2021,12/18/2020,11/27/2020 Hepatitis B, 20+ yrs 07/26/2015,03/01/2015,11/29 Pneumococcal Conjugate Vacci ne, 20-valent ([id number]) 07/15/2022 Pneumococcal Polysaccharide PPV23 (Pneumovax) 02/26/2014 Seasonal [...] as of this encounter Progress Notes * Anastasiia Multani stylist apprentice - 12/14/2023 8:25 AM EST Patient Phone Numbers Left message on patients answering machine to schedule [facility] appointment for diabetes management. [facility] message sent --no Clinic will follow up again in 4 week(s). [Attempt # 2] Thank you, Anastasiia Multani Area Cleaner [facility] ([facility]) [phone] 12/14/2023,8:26 AM documented in this encounter Plan of Treatment Upcoming Encounters Date Type Department Care Team (Late st Contact Info) Description 01/11/2024 6:10 PM EDT Pharmacy Pharmacy, [address] [address] [facility] [place] [address] 01/17/2024 1:00 PM EDT Office Visit Sleep Disorders, [facility] [address] [place] [address] Krist[facility] [place] [address] 01/26/2024 9:00 AM EDT Office Visit Family Practice [facility] [place] [address] [facility] [place] [address] Willam Fofana, DO [address] [facility] [place] [address] 02/02/2024 8:30 AM EDT Office Visit [address] [address] Mason Jean-Baptiste MD [address] [place] [address] Scheduled Procedures Name Priority Associated Diagnoses Date/Ti [...] (HCC) documented in this encounter Care Teams Ledge Man Relationship Specialty Start Date End Date Willam Fofana DO [address] [place] [address] PCP - General Family Medicine 04/26/17 documented as of this encounter
[2024-03-23] MEDS: GADOBUTROL 65ML VIAL IV ONE (07:20)
[2024-03-23] MEDS ORDERED: PHARMACY GLYCEMIC MGMT CONSULT PRN (07:26)
[2024-03-23] MEDS: TAMSULOSIN HCL 0.4 MG CAP PO SCH (08:34)
[2024-03-23] MEDS: lisinopril 20 MG TAB PO SCH (08:35)
[2024-03-23 08:37] LABS: Hematocrit (blood only) 46.3 % (42.0-52.0); Hemoglobin 15.5 g/dl (14.0-18.0); Mean Corpuscular Hemoglobin 27.2 pg (25.0-34.0); Mean Corpuscular Hgb Conc 33.5 g/dL (32.0-36.0); Mean Corpuscular Volume 81.4 fL (80.0-100.0); Mean Platelet Volume 9.2 fL (9.4-12.4); Platelet Count 230 K/uL (130-400); RDW Coefficient of Variation 15.1 % (11.5-14.5); RDW Standard Deviation 44.8 fL (36.4-46.3); Red Blood Count 5.69 M/uL (4.70-6.10); White Blood Count 11.97 K/ul (4.8-10.8)
[2024-03-23 08:55] LABS: Albumin Globulin Ratio 1.1 (0.9-2); Albumin Level 3.2 gm/dl (3.4-5.0); BUN Creatinine Ratio 23.1 (10-20); Bilirubin,Total 0.8 mg/dl (0.2-1.0); Calcium 8.8 mg/dl (8.6-10.3); Creatinine Clr Calc Pharmacy 167.8 ml/min; Est GFR (African American) 121.7 ml/min; Globulin 2.9 gm/dl (2.5-4.0); Potassium 4.2 mmol/L (3.5-5.1); Total Protein 6.1 gm/dl (6.0-8.3)
[2024-03-23] MEDS: INSULIN HUMAN NPH SC SCH ×2 (09:25→17:42)
[2024-03-23] MEDS: ACETAMINOPHEN 325 MG TAB PO PRN (09:25)
--- NOTE | 2024-03-23 15:05 | Pharmacy Report ---
Pharmacy Glycemic Short Note 2 - Date of Service March 23, 2024 - Glycemic Short BSG Results (Last 24 hours): 03/22/24 03/22/24 03/23/24 17:10 20:06 00:52 Glucose POC Glucose 299 H 216 H 138 H 03/23/24 03/23/24 03/23/24 04:18 08:15 08:16 Glucose 143 H POC Glucose 142 H 142 H 03/23/24 12:05 Glucose POC Glucose 187 H OUTPATIENT ANTIDIABETIC REGIMEN: * Non-compliant with outpatient insulin regimen * Patient uses Toujeo and Novolog, but unclear how he is using these on a daily basis * Reported doses: Toujeo 100 units SC BID, Novolog 60 units SC BID HbA1c: 11% (03/22/24) ASSESSMENT: 03/23: * Patient received total 59 units of insulin yesterday: 30 units basal NPH and 29 units bolus. * BSGs trended down by bedtime yesterday. Fasting BSG today was 143 mg/dl. * Continued with basal NPH dose 30 units SC in AM and scale of 0 or 10 units at dinner based on BSG. This is based on data from recent prior admission. * Novolog parameters continued the same as last night. 03/22: * CF is a 63 year old male who presents to ED today with generalized weakness/gait instability * Patient well known to pharmacy glycemic service due to frequent readmissions and glycemic consultations * Presenting BSG > 300 mg/dL, given 10 units of IV regular insulin and ordered 30 units of NPH * Will utilize prior inpatient glycemic data to guide initial insulin dosing w/ overnight checks this evening * T2DM diet ordered * Of note, patient reports adverse drug reaction to Lantus so will continue with NPH PLAN FOR INPATIENT GLYCEMIC CONTROL: * Basal insulin * NPH 30 units SC QAM * NPH 0 units if BSG less than 180; 10 units if BSG 180 or greater SC at dinner * Bolus insulin * NovoLog per scale ACHS or Q6hrs while NPO * Goal Range: Low 110 mg/dL - High 140 mg/dL * Correction Factor: 15 mg/dL/unit * Nutritional / Prandial insulin per carb ratio of 1 unit per 4 grams CHO consumed
--- NOTE | 2024-03-23 15:21 | Hospitalist Progress Note ---
Date of Service March 23, 2024 Assessment & Plan (1) Uncontrolled type 2 diabetes mellitus with hyperglycemia: (2) Ambulatory dysfunction: (3) Morbid obesity with BMI of 40.0-44.9, adult: (4) ALEJANDRA (obstructive sleep apnea): (5) Noncompliance w/medication treatment due to intermit use of medication: Plan Patient's acute weakness most likely due to his severe hyperglycemia and noncompliance with his medications. No evidence of acute stroke or intracerebral event. Patient's glucose has becomes much improved and fairly well-controlled with his usual home doses of insulin. Continue home insulin dosing, sliding scale as needed Increase activity Monitor laboratory studies in a.m. Anticipate discharge home if on sugars remain improved Admission and Anticipated Discharge Date Admission Date: March 22, 2024 Subjective Patient reports she is feeling significantly improved compared to admission. Reports that he was noncompliant and did not take his insulin for at least 2 days maybe 3 or 4 days. He states that there is no real barrier to him taking his medications other than self-admitted laziness Physical Exam Physical Exam: Constitutional: Alert, morbidly obese HEENT: Mucous membranes moist. Lungs: Clear to auscultation, decreased, no wheezes rales or rhonchi CV: S1-S2, regular Abdomen: Soft, nontender, nondistended Extremities: No significant edema Neuro: No focal deficits Psych: Cooperative, normal mood Results & Data Results & Data Vital Signs (Past 12 Hours) Vital Signs Temp Pulse Pulse Resp BP BP Pulse Ox 03/23/24 15:09 36.7 C 84 20 138/77 98 03/23/24 11:32 36.7 C 73 20 131/74 95 03/23/24 09:30 03/23/24 08:11 36.5 C 63 20 133/76 95 03/23/24 07:00 67 03/23/24 03:28 37.1 C 69 18 109/65 97 O2 Del Method 03/23/24 15:09 Room Air 03/23/24 11:32 Room Air 03/23/24 09:30 Room Air 03/23/24 08:11 Room Air 03/23/24 07:00 03/23/24 03:28 Room Air Diagnostic Findings Reviewed imaging, laboratory and diagnostic studies. Pertinent findings as below. WBCs 11.9, hemoglobin 15.5 Electrolytes within normal range, glucose 143 MRI brain no evidence of acute infarct or findings
[2024-03-24 07:54] LABS: Hematocrit (blood only) 46.3 % (42.0-52.0); Hemoglobin 15.3 g/dl (14.0-18.0); Mean Corpuscular Volume 81.8 fL (80.0-100.0); Mean Platelet Volume 9.3 fL (9.4-12.4); Platelet Count 239 K/uL (130-400); RDW Coefficient of Variation 15.2 % (11.5-14.5); RDW Standard Deviation 45.4 fL (36.4-46.3); Red Blood Count 5.66 M/uL (4.70-6.10); White Blood Count 9.45 K/ul (4.8-10.8)
[2024-03-24 08:09] LABS: BUN Creatinine Ratio 23.5 (10-20); Calcium 8.7 mg/dl (8.6-10.3); Creatinine Clr Calc Pharmacy 160.4 ml/min; Est GFR (African American) 119.5 ml/min; Est GFR (Non-African American) 103.1 ml/min; Potassium 4.3 mmol/L (3.5-5.1)
[2024-03-24] MEDS: ALUMINUM/MAGNESIUM/SIMETH (MAALOX MAX) 30 ML UDC PO STA (10:16)
--- NOTE | 2024-03-24 10:39 | Discharge Summary ---
Discharge Summary Date of Service March 24, 2024 Principal Dx & Hospital Course #1 = Principal Diagnosis (1) Uncontrolled type 2 diabetes mellitus with hyperglycemia: (2) Ambulatory dysfunction: (3) Morbid obesity with BMI of 40.0-44.9, adult: (4) ALEJANDRA (obstructive sleep apnea): (5) Noncompliance w/medication treatment due to intermit use of medication: Plan Patient was admitted to the hospital. Patient had a severely uncontrolled hyperglycemia and weakness subsequent to the effects of this. Patient was given his usual insulin. Was given some IV hydration. And his symptoms significantly improved and resolved. Patient readily admits he is noncompliant with his diet. He reports that he stopped the [employer] and ate bagel bites prior to coming to the hospital he also stopped at [employer] and had an egg pizza. He also reports that he did not take his insulin for at least 3 to 4 days. Here in the hospital his sugar is well-controlled on his usual prescribed dose of insulin. His blood pressure was well-controlled on his usual prescribed dose of antihypertensive medications. As his sugars improved his weakness and ambulatory dysfunction improved. Throughout his hospitalization was stressed to him the need to be compliant with taking his medications as well as his diet. On the day of discharge his vital signs are stable electrolytes had stabilized and improved his sugars are well-controlled under 200. He can be discharged outpatient care and follow-up. Notes For Next Care Provider Continue to reinforce compliance with diet and medications Medication Changes From Visit None, patient needs to take medications as prescribed Admission HPI Per Admitting Provider Patient is 63 year old male with PMH HTN, SC, nonischemic cardiomyopathy, chronic hepatitis C, insulin dependent DM II, polyneuropathy, ALEJANDRA, history of IV drug abuse, current methamphetamine use, depression, BPH, history of medication non-compliance presented to ER with c/o weakness x several days. History obtained from patient, inpatient and outpatient chart review. Patient states chronically "wobbly" with walking. States past several days he has been more weak and wobbly and having difficulty ambulating. Sleeps in chair. States has been sitting in his chair a lot the last 2 days secondary to weakness. He reports chronically sleeps in chair and denies orthopnea or known PND. He reports chronic polydipsia. He admits to drinking "a lot" of tea, water and Kash D. States not eating well past 2 days. He states he has intermittent cough sometimes green sputum. Denies hemoptysis, chest pain or SOB. Denies tobacco use currently. He admits missed medications, and thinks he misses medications several times a month. Last used insulin yesterday. Last took oral medications 2-3 days ago. He states he lives alone. Has family but states he is estranged f rom family and doesn't have friends. States he has a neighbor who checks on him intermittently. He admits to feeling depressed. Denies homicidal ideations. He does state he sometimes feels he would be "better if just " but has no plan and denies no history suicide plan or attempt in past. Uses meth by oral ingestion or smoking. States last used 2 weeks ago. Reports has not used IV drugs for years. States chronic right eye visual disturbance but denies any other worsening vision, diplopia, or vision loss. Denies fever/chills, diaphoresis, N/V/D/C, CALIX, dizziness, syncope, vision changes, neck pain, CP, SOB, palpitations, sore throat, choking, otalgia, rhinorrhea, abdominal pain, paresthesias, weakness, extremity weakness, increased extremity edema, rashes, urinary symptoms, upper extremity weakness, or recent fall. Patient states only uses [facility]. Called and spoke to patient's pharmacy [facility]: Sertraline 100mg 1 tab daily, 90 day supply, last Filled on 03/16/24 lisinopril 20mg 1 daily, 30 day, last filled 03/16/24 tamsulosin 0.4mg 1 daily, 30 day supply, last filled on 03/04/24 Novolog flex pen 45 units breakfast, 50 supper +sliding scale, max 120 units daily. Last filled on 02/20/24 (25 day supply) Jardiance 25mg 1 tab daily, 90 day supply, last filled on 01/12/24 Wellbutrin XL 300mg 1 tab daily, 90 day supply, last filled on 01/31/24 Toujeo max solostar 300unit/mL 100 units AM and HS, 90 day supply, last filled on 10/20/23 metoprolol succinate 50mg never filled, was prescribed in 05/2023 but never filled and picked up Spironolactone last filled 2022 Lasix Hasn't been filled ever at [facility] Admission Exam Per Admitting Provider See H&P Discharge Exam Constitutional: Alert, morbidly obese HEENT: Mucous membranes moist. Lungs: Clear to auscultation, decreased, no wheezes rales or rhonchi CV: S1-S2, regular Abdomen: Soft, nontender, nondistended Extremities: No significant edema Neuro: No focal deficits Psych: Cooperative, normal mood Updated Medication List Medication Instructions Recorded Confirmed Type aspirin 81 mg tablet,delayed 81 mg PO DAILY 08/01/22 03/22/24 History release bupropion HCl 300 mg 24 hr tablet, 300 mg PO DAILY 08/01/22 03/22/24 History extended release empagliflozin 25 mg tablet 25 mg PO DAILY 08/01/22 03/22/24 History (Jardiance) insulin aspart U-100 100 unit/mL 60 unit subcut BIDM 08/01/22 03/22/24 History (3 mL) subcutaneous pen ascorbic acid (vitamin C) 500 mg 500 mg PO DAILY 09/21/22 03/22/24 History tablet (Vitamin C) multivitamin with minerals 1 tab PO DAILY 09/21/22 03/22/24 History (Multiple Vitamin-Minerals tablet) lisinopril 20 mg tablet 20 mg PO QAM 10/10/23 03/22/24 History sertraline 100 mg tablet 100 mg PO QAM 10/10/23 03/22/24 History insulin glargine U-300 conc 300 100 unit subcut BID 10/14/23 03/22/24 History unit/mL (3 mL) subcutaneous pen (Toujeo Max U-300 SoloStar) tamsulosin 0.4 mg capsule 0.4 mg PO DAILY 10/14/23 03/22/24 History Hospital Stay Data Diagnostic Imagining Performed 03/22/24 07:51 CT head/brain wo con Stat CTA head w con [CT angio head w con] Stat CTA neck with con [CT angio neck with con] Stat 03/22/24 12:50 MR brain wo con Urgent Reviewed imaging, laboratory and diagnostic studies. Pertinent findings as below. MRI of the brain negative for acute findings [id number] glucose less than 200 the last multiple readings Echocardiogram showed ejection fraction 50 to 55%, some mild left ventricular hypertrophy no wall motion abnormalities Pending Results Patient Have Any Pending Studies at Discharge: No Discharge Instructions Given to Patient (Per Discharging Provider) It is critical that you take your medications as prescribed Total Time Total Time Spent Total Time Spent (In Minutes): 32
--- NOTE | 2024-03-24 12:29 | Pharmacy Report ---
Pharmacy Glycemic Short Note 2 - Date of Service March 24, 2024 - Glycemic Short BSG Results (Last 24 hours): 03/23/24 03/23/24 03/24/24 16:49 20:18 06:55 Glucose 190 H POC Glucose 100 H 170 H 03/24/24 03/24/24 08:02 11:53 Glucose POC Glucose 170 H 198 H OUTPATIENT ANTIDIABETIC REGIMEN: * Non-compliant with outpatient insulin regimen * Patient uses Toujeo and Novolog, but unclear how he is using these on a daily basis * Reported doses: Toujeo 100 units SC BID, Novolog 60 units SC BID HbA1c: 11% (03/22/24) ASSESSMENT: 03/24: * Facundo received 67 units of insulin yesterday (30 were basal) * Fasting BSG this AM slightly elevated, but acceptable, dinnertime NPH scale adjusted to only be held if BSG significantly below goal range. * Novolog appears to be covering and correcting adequately. No changes at this time. 03/23: * Patient received total 59 units of insulin yesterday: 30 units basal NPH and 29 units bolus. * BSGs trended down by bedtime yesterday. Fasting BSG today was 143 mg/dl. * Continued with basal NPH dose 30 units SC in AM and scale of 0 or 10 units at dinner based on BSG. This is based on data from recent prior admission. * Novolog parameters continued the same as last night. 03/22: * CF is a 63 year old male who presents to ED today with generalized weakness/gait instability * Patient well known to pharmacy glycemic service due to frequent readmissions and glycemic consultations * Presenting BSG > 300 mg/dL, given 10 units of IV regular insulin and ordered 30 units of NPH * Will utilize prior inpatient glycemic data to guide initial insulin dosing w/ overnight checks this evening * T2DM diet ordered * Of note, patient reports adverse drug reaction to Lantus so will continue with NPH PLAN FOR INPATIENT GLYCEMIC CONTROL: * Basal insulin * insulin NPH 30 units SC QAM * insulin NPH 0-10 units SQ QDD (hold if BSG is less than 90mg/dL) * Bolus insulin * NovoLog per scale ACHS or Q6hrs while NPO * Goal Range: Low 110 mg/dL - High 140 mg/dL * Correction Factor: 15 mg/dL/unit * Nutritional / Prandial insulin per carb ratio of 1 unit per 4 grams CHO consumed
== END 2024-03-24 13:59 | disposition home or self-care (01) | DRG 638 ==
LOC: ED 07:39 → 2N 12:18 → SUATTDRO 12:18 → 2N 13:26 → 3N 03-23 17:38

== ENCOUNTER 2024-05-09 12:47 | Inpatient (IN) ==
--- NOTE | 2024-05-09 13:24 | XRay Report ---
XR chest 1V portable HISTORY: 63 years-old Male weakness acute weakness COMPARISON: 03/22/2024 TECHNIQUE: AP view of the chest FINDINGS: Cardiac silhouette is enlarged. Lungs appear clear. No pneumothorax or pleural effusion. The bones ap pear intact. IMPRESSION: No acute process. ACT 112: Negative or not required by law. The above report was generated using voice recognition software. It may contain grammatical, syntax o r spelling errors. Electronically signed by: Juan Gonzalez M.D. 05/09/2024 1:23 PM
[2024-05-09 13:31] LABS: Basophils # (auto) 0.11 K/uL (0.00-0.20); Eosinophils # (auto) 0.27 K/uL (0.00-0.50); Eosinophils % (auto) 2.4 %; Hematocrit (blood only) 49.3 % (42.0-52.0); Hemoglobin 16.4 g/dl (14.0-18.0); Immature Granulocytes # (auto) 0.07 K/uL (0.01-0.20); Immature Granulocytes % (auto) 0.6 %; Lymphocytes # (auto) 2.48 K/uL (1.20-3.40); Lymphocytes % (auto) 22.3 %; Mean Corpuscular Hemoglobin 27.8 pg (25.0-34.0); Mean Corpuscular Hgb Conc 33.3 g/dL (32.0-36.0); Mean Corpuscular Volume 83.7 fL (80.0-100.0); Mean Platelet Volume 9.3 fL (9.4-12.4); Monocytes % (auto) 6.3 %; Neutrophils % (auto) 67.4 %; Platelet Count 290 K/uL (130-400); RDW Coefficient of Variation 14.3 % (11.5-14.5); RDW Standard Deviation 43.3 fL (36.4-46.3); Red Blood Count 5.89 M/uL (4.70-6.10); White Blood Count 11.13 K/ul (4.8-10.8)
--- NOTE | 2024-05-09 13:50 | CT Scan Report ---
CT head/brain wo con CLINICAL HISTORY: 63 years-old Male with BLE weakness. Acute Stroke like symptoms TECHNIQUE: Multiple axial CT images of the head were obtained without contrast. A dose lowering tech nique was utilized adhering to the principles of ALARA. CT DOSE: 625.8 mGy.cm COMPARISON: None. FINDINGS: No acute intracranial hemorrhage, midline shift or mass effect is present. The ventricular system is stable. White matter hypodensities are similar to prior exam and favor small vessel disease. There ar e no findings to suggest acute dural sinus thrombosis or acute territorial infarct. CSF density anter ior to the right temporal lobe is unchanged. There may be right temporal lobe volume loss. The appear ance of the brain is unchanged. A left-sided craniotomy is again noted. There are no calvarial fractu res. IMPRESSION: No acute intracranial findings. ACT 112: Negative or not required by law. The above report was generated using voice recognition software. It may contain grammatical, syntax o r spelling errors. Electronically signed by: Juan Gonzalez M.D. 05/09/2024 1:48 PM
[2024-05-09 13:52] LABS: Albumin Globulin Ratio 1.2 (0.9-2); Albumin Level 3.7 gm/dl (3.4-5.0); BUN Creatinine Ratio 29.7 (10-20); Bilirubin,Total 0.5 mg/dl (0.2-1.0); Calcium 9.4 mg/dl (8.6-10.3); Creatinine Clr Calc Pharmacy 166.7 ml/min; Est GFR (African American) 122.5 ml/min; Est GFR (Non-African American) 105.7 ml/min; Total Protein 6.7 gm/dl (6.0-8.3)
[2024-05-09 13:56] LABS: Troponin I High Sensitivity 13.9 pg/ml (0-20)
[2024-05-09 14:04] LABS: Thyroid Stimulating Hormone 4.913 uIu/ml (0.300-4.500)
--- NOTE | 2024-05-09 14:18 | Emergency Department Note ---
Impression & Plan Ambulatory dysfunction, Generalized muscle weakness, Unable to care for self ED Provider Note CHIEF COMPLAINT: Weakness, legs feel numb. HISTORY OF PRESENT ILLNESS: This 63-year-old male patient with past medical history of BPH, anxiety, uncontrolled type 2 diabetes, ambulatory dysfunction, morbid obesity, remote history of tuberculosis and toxoplasmosis, hepatitis C, hypertension, nonischemic cardiomyopathy, peripheral vascular disease and drug abuse presents to the emergency department with c/o inability to walk and care for himself. He states he did not take his medications this morning. He states his legs feel numb and weak. This has been going on for several days. He is not sure if it is getting worse. He denies any urinary incontinence but states he is taking Lasix and tamsulosin. He states he has been bathing, but just "gets in the water." REVIEW OF SYSTEMS: A review of systems was performed with positives and pertinent negatives listed in the history of present illness. 10 systems were reviewed and are otherwise negative. ALLERGIES: see below MEDICATIONS: see below PMH: see below SOCIAL HISTORY: see below DDx: Deconditioning, UTI, pneumonia, viral syndrome, medication effect, medication omission, intracranial hemorrhage, stroke, seizure, electrolyte abnormality, renal failure among others. PHYSICAL EXAM: Vital signs reviewed. Noted to be hypertensive General: Chronically ill-appearing 63-year-old male, in no significant distress. HEENT: No scleral icterus, PERRLA, neck supple. Moist mucous membranes Cardiovascular: Regular rate and rhythm, no extra sounds. Pulmonary: Clear to auscultation bilaterally, normal work of breathing. Abdomen: Soft, morbidly obese, nontender, nondistended, positive bowel sounds. Musculoskeletal: Atraumatic, no peripheral edema. Neurologic: Patient awake alert and oriented x 3, speech is clear Skin: Warm, dry, seborrhea noted to the face and upper chest. EMERGENCY DEPARTMENT COURSE/MDM: This patient was evaluated and appeared to be in no significant distress. IV access was obtained and laboratory work was drawn. Patient was placed on the classroom monitor and noted to be in a normal sinus rhythm. Chest x-ray was performed and reveals no focal lung consolidation or failure. Head CT reveals no evidence of ICH or mass. Laboratory work is reassuring, without evidence of UTI. EKG reveals no evidence of acute ischemic change. The etiology of the patient's weakness is unclear however nursing staff stated when he stood to use the urinal, he was swaying and very unsteady. The patient does live at home by himself and I do not feel he is safe for discharge. Case was discussed with the hospitalist service, Anastasiia Keating PA-C who will evaluate the patient with Dr. Mclaughlin for admission. He is aware of the plan and agreed. MONITORING: An order for cardiac monitoring was placed and the patient is noted to be in a normal sinus rhythm at 70 beats per minute. RADIOLOGY: Chest x-ray to my interpretation reveals no evidence of focal lung consolidation or failure. Head CT per radiology is negative for acute process. EKG: To my interpretation reveals a NSR at 88 bpm, normal ST. Low voltage QRS, QTc 442. nonspecific ST segments DISPOSITION: Home Past Med/Surg History Problem List (Updated 05/09/24 @ 16:22 by Rukhsana Pratt MD) Unable to care for self (Acute) Generalized muscle weakness (Acute) Ambulatory dysfunction (Acute) Noncompliance w/medication treatment due to intermit use of medication BPH (benign prostatic hyperplasia) Anxiety and depression Bronchitis Uncontrolled type 2 diabetes mellitus with hyperglycemia (Acute) Ambulatory dysfunction (Acute) Generalized weakness (Acute) Acute hyperglycemia (Acute) Morbid obesity with BMI of 40.0-44.9, adult Acute hyperglycemia (Acute) ALEJANDRA (obstructive sleep apnea) Hyperglycemia Nonischemic cardiomyopathy (Chronic) "prior EF 30% per Epic records. echo 02/2015- EF 40-45%" DM type 2 (diabetes mellitus, type 2) (Chronic) H/O TB (tuberculosis) (Chronic) H/O toxoplasmosis (Chronic) Hepatitis C (Chronic) Hypertension (Chronic) Colon polyp (Chronic) "TVA polyp on colonoscopy 09/2014" H/O colonoscopy (Chronic) "11/2015- diverticulosis" S/P cardiac cath (Chronic) "for abnormal stress test. cath 03/18/2015-essentially normal coronaries with no obstructive disease " Colon polyp Confusion (Acute) Hyperglycemia due to type 2 diabetes mellitus (Acute) DVT prophylaxis Polyneuropathy Peripheral vascular disease Depression Bilateral cellulitis of lower leg (Acute) Fatigue (Acute) Encephalopathy Hypercapnic respiratory failure Varicose veins of bilateral lower extremities with other complications Morbid obesity H/O drug abuse Medical History Shortness of breath Acute dehydration Accidental fall tripped over dog bed, hit back of head, checked in the ED poss concussion Dysequilibrium Hepatitis C Diabetes mellitus, type 2 Depression Anxiety Hypertension Surgical History History of colonoscopy History of umbilical hernia repair x2 History of tooth extraction History of wisdom tooth extraction History of cardiac cath 03/2015 @ [facility], no stents follows with Dr. Monet Family History Mother Family history of diabetes mellitus Father Family history of diabetes mellitus Other No family history of adverse response to anesthesia Social History Smoking Status: Never smoker Tobacco Type: Cigarettes Cigarettes Per Day: Says he occasionally will smoke a cigar.; Second Hand Exposure: Yes; Do You Dip or Chew Tobacco: No; Hx Alcohol Use: No Hx Substance Use: No Preferred Language: Mauritanian Communication Ability: Effective Lobster Fisherman Required: No Beliefs That Will Affect Care: None marital status: Single Current Living Situation: Alone Current Living Situation Comment: lives alone Feels Safe at Home: Yes Assistive Devices: None Allergies Allergies Allergy/AdvReac Type Severity Reaction Status Date / Time shellfish derived Allergy Severe Swelling Verified 05/09/24 15:21 amoxicillin Allergy Intermediate HIVES Verified 05/09/24 15:21 clavulanic acid Allergy Intermediate HIVES Verified 05/09/24 15:21 permethrin Allergy Intermediate swelling Verified 05/09/24 15:21 shrimp Allergy Intermediate SWELLS Verified 05/09/24 15:21 sulfamethoxazole Allergy Unknown CAN'T Verified 05/09/24 15:21 [From Bactrim] REMEMBER trimethoprim [From Bactrim] Allergy Unknown CAN'T Verified 05/09/24 15:21 REMEMBER insulin glargine AdvReac Severe CHF Verified 05/09/24 15:21 [From Lantus U-100 Insulin] Home Meds Home Medications Medication Instructions Recorded Confirmed aspirin 81 mg tablet,delayed 81 mg PO DAILY 08/01/22 05/09/24 release bupropion HCl 300 mg 24 hr tablet, 300 mg PO DAILY 08/01/22 05/09/24 extended release empagliflozin 25 mg tablet 25 mg PO DAILY 08/01/22 05/09/24 (Jardiance) insulin aspart U-100 100 unit/mL 60 unit subcut BIDM 08/01/22 05/09/24 (3 mL) subcutaneous pen ascorbic acid (vitamin C) 500 mg 500 mg PO DAILY 09/21/22 05/09/24 tablet (Vitamin C) multivitamin with minerals 1 tab PO DAILY 09/21/22 05/09/24 (Multiple Vitamin-Minerals tablet) lisinopril 20 mg tablet 20 mg PO QAM 10/10/23 05/09/24 sertraline 100 mg tablet 100 mg PO QAM 10/10/23 05/09/24 insulin glargine U-300 conc 300 100 unit subcut BID 10/14/23 05/09/24 unit/mL (3 mL) subcutaneous pen (Toujeo Max U-300 SoloStar) tamsulosin 0.4 mg capsule 0.4 mg PO DAILY 10/14/23 05/09/24 Results & Data (ED) Vital Signs Vital Signs - 24 hr 05/09/24 12:52 05/09/24 12:52 05/09/24 13:02 Temperature 36.7 C Temperature Source Oral Pulse Rate 84 82 Pulse Rate [Apical] Respiratory Rate 20 Respiratory Effort / Characteristics Non-Labored Spontaneous Respiratory Depth Normal Respiratory Pattern Regular Blood Pressure 161/98 H Blood Pressure [Left Arm] Blood Pressure Mean 119 Blood Pressure Mean [Left Arm] Blood Pressure Position Lying Pulse Oximetry 95 95 Oxygen Delivery Method Room Air Room Air Sepsis Recent Fever Within 48 Hours No Sepsis New/Unexplained Change in Mental Status N/A Sepsis Action Taken by Nursing No Action Required 05/09/24 13:16 05/09/24 16:02 Temperature Temperature Source Pulse Rate 70 Pulse Rate [Apical] 95 H Respiratory Rate 22 Respiratory Effort / Characteristics Non-Labored Spontaneous Respiratory Depth Normal Respiratory Pattern Regular Blood Pressure Blood Pressure [Left Arm] 174/89 H Blood Pressure Mean Blood Pressure Mean [Left Arm] 117 Blood Pressure Position Pulse Oximetry 93 95 Oxygen Delivery Method Room Air Room Air Sepsis Recent Fever Within 48 Hours Sepsis New/Unexplained Change in Mental Status Sepsis Action Taken by Intermediate Medications Current Medication List: was personally reviewed by me Laboratory Data Attestation: I reviewed the patient's lab results. 05/09/24 13:05 05/09/24 13:05 Lab Results 07/30/24 07/30/24 07/30/24 Range/Units 13:05 13:23 14:30 WBC 11.13 H (4.8-10.8) K/ul RBC 5.89 (4.70-6.10) M/uL Hgb 16.4 (14.0-18.0) g/dl Hct 49.3 (42.0-52.0) % MCV 83.7 (80.0-100.0) fL MCH 27.8 (25.0-34.0) pg MCHC 33.3 (32.0-36.0) g/dL RDW Std Deviation 43.3 (36.4-46.3) fL RDW Coeff of Marc 14.3 (11.5-14.5) % Plt Count 290 (130-400) K/uL MPV 9.3 L (9.4-12.4) fL Immature Gran % (Auto) 0.6 % Neut % (Auto) 67.4 % Lymph % (Auto) 22.3 % [place] % (Auto) 6.3 % Eos % (Auto) 2.4 % Baso % (Auto) 1.0 % Neut # (Auto) 7.50 H (1.40-6.50) K/uL Lymph # (Auto) 2.48 (1.20-3.40) K/uL [place] # (Auto) 0.70 H (0.11-0.59) K/uL Eos # (Auto) 0.27 (0.00-0.50) K/uL Baso # (Auto) 0.11 (0.00-0.20) K/uL Immature Gran # (Auto) 0.07 (0.01-0.20) K/uL Sodium 135 L (136-145) mmol/L Potassium 5.0 (3.5-5.1) mmol/L Chloride 103 (98-107) mmol/L Carbon Dioxide 27 (21-32) mmol/L Anion Gap 5 (3-11) BUN 19 (6-23) mg/dl Creatinine 0.64 (0.6-1.4) mg/dl Est Cr Clr Drug Dosing 166.7 ml/min Est GFR ( Amer) 122.5 ml/min Est GFR (Non-Af Amer) 105.7 ml/min BUN/Creatinine Ratio 29.7 H (10-20) Glucose 285 H (70-99(Fasting)) mg/dl Lactate 1.0 (0.4-2.0) mmol/L Calcium 9.4 (8.6-10.3) mg/dl Magnesium 2.0 (1.7-2.4) mg/dl Total Bilirubin 0.5 (0.2-1.0) mg/dl AST 21 (13-39) U/L ALT 24 (7-52) U/L Alkaline Phosphatase 91 (34-104) U/L Troponin I High Sens 13.9 (0-20) pg/ml Total Protein 6.7 (6.0-8.3) gm/dl Albumin 3.7 (3.4-5.0) gm/dl Globulin 3.0 (2.5-4.0) gm/dl Albumin/Globulin Ratio 1.2 (0.9-2) TSH 4.913 H (0.300-4.500) uIu/ml Free T4 0.69 (0.61-1.60) ng/dl Urine Color Yellow Urine Appearance Clear (Clear) Urine pH 5.5 (4.5-7.5) Ur Specific [place] 1.026 (1.000-1.030) Urine Protein Negative (Negative) Urine Glucose (UA) 2+ H (Negative) Urine Ketones Negative (Negative) Urine Blood Negative (Negative) Urine Nitrite Negative (Negative) Urine Bilirubin Negative (Negative) Urine Urobilinogen Negative (Negative) Ur Leukocyte Esterase Negative (Negative) Lyme Disease Screen Negative (Negative) Administered Medications Discontinued Medications Lisinopril (Lisinopril 20 Mg Tab) 20 mg PO NOW STA Stop: 05/09/24 15:27 Last Admin: 05/09/24 15:52 Dose: 20 mg Documented By: MARIBELL Sertraline HCl (Sertraline Hcl 100 Mg Tablet) 100 mg PO NOW STA Stop: 05/09/24 15:27 Last Admin: 05/09/24 15:52 Dose: 100 mg Documented By: MARIBELL Sertraline HCl (Sertraline Hcl 50 Mg Tablet) 50 mg PO NOW ONE Stop: 05/09/24 15:27 Last Admin: 05/09/24 15:52 Dose: 50 mg Documented By: MARIBELL Imaging Data Radiologist's Impression: Chest X-Ray 05/09/24 13:07 XR chest 1V portable HISTORY: 63 years-old Male weakness acute weakness COMPARISON: 03/22/2024 TECHNIQUE: AP view of the chest FINDINGS: Cardiac silhouette is enlarged. Lungs appear clear. No pneumothorax or pleural effusion. The bones appear intact. IMPRESSION: No acute process. ACT 112: Negative or not required by law. The above report was generated using voice recognition software. It may contain grammatical, syntax or spelling errors. Electronically signed by: Juan Gonzalez M.D. 05/09/2024 1:[address] 05/09/24 13:08 CT head/brain wo con CLINICAL HISTORY: 63 years-old Male with BLE weakness. Acute Stroke like symptoms TECHNIQUE: Multiple axial CT images of the head were obtained without contrast. A dose lowering technique was utilized adhering to the principles of ALARA. CT DOSE: 625.8 mGy.cm COMPARISON: None. FINDINGS: No acute intracranial hemorrhage, midline shift or mass effect is present. The ventricular system is stable. White matter hypodensities are similar to prior exam and favor small vessel disease. There are no findings to suggest acute dural sinus thrombosis or acute territorial infarct. CSF density anterior to the right temporal lobe is unchanged. There may be right temporal lobe volume loss. The appearance of the brain is unchanged. A left-sided craniotomy is again noted. There are no calvarial fractures. IMPRESSION: No acute intracranial findings. ACT 112: Negative or not required by law. The above report was generated using voice recognition software. It may contain grammatical, syntax or spelling errors. Electronically signed by: Juan Gonzalez M.D. 05/09/2024 1:48 PM Discharge Plan Visit Data Chief Complaint: Leg Weakness, Bilateral Stated Complaint: BILAT ARM & LEG NUMBNESS ED Provider: Rukhsana Pratt Discharge Problem: Ambulatory dysfunction, Generalized muscle weakness, Unable to care for self Forms Stand Alone Forms: Press About Us Prescriptions Prescriptions: No Action aspirin 81 mg Tablet,Delayed Release (Dr/Ec) 81 mg PO DAILY insulin aspart U-100 100 unit/mL (3 mL) insulin pen 60 unit subcut BIDM Rx Instructions: Patient takes 60 UNITS WITH BREAKFAST, 60 UNITS WITH DINNER bupropion HCl 300 mg tablet extended release 24 hr 300 mg PO DAILY Jardiance 25 mg tablet 25 mg PO DAILY ascorbic acid (vitamin C) [Vitamin C] 500 mg Tablet 500 mg PO DAILY Multiple Vitamin-Minerals Tablet 1 tab PO DAILY tamsulosin 0.4 mg capsule 0.4 mg PO DAILY insulin glargine U-300 conc [Toujeo Max U-300 SoloStar] 300 unit/mL (3 mL) insulin pen 100 unit SUBCUT BID lisinopril 20 mg tablet 20 mg PO QAM sertraline 100 mg tablet 100 mg PO QAM Referrals Referrals: Willam Fofana, [Primary Care Provider] -
[2024-05-09 14:40] LABS: T4 Free Thyroxine 0.69 ng/dl (0.61-1.60)
[2024-05-09 14:53] LABS: Appearance Urine Clear (Clear); Bilirubin Urine Negative (Negative); Blood Urine Negative (Negative); Color Urine Yellow; Glucose Urine UA 2+ (Negative); Ketones Urine Negative (Negative); Leukocyte Esterase Urine Negative (Negative); Nitrite Urine Negative (Negative); Protein Urine Negative (Negative); Specific Gravity Urine 1.026 (1.000-1.030); Urobilinogen Urine Negative (Negative); pH Urine 5.5 (4.5-7.5)
[2024-05-09] MEDS: SERTRALINE HCL 50 MG TABLET PO ONE (15:52)
[2024-05-09] MEDS: lisinopril 20 MG TAB PO STA (15:52)
[2024-05-09] MEDS: SERTRALINE HCL 100 MG TABLET PO STA (15:52)
--- NOTE | 2024-05-09 16:07 | History & Physical Report ---
Date of Service May 09, 2024 Assessment & Plan (1) Unable to care for self: (2) Generalized muscle weakness: (3) Morbid obesity with BMI of 40.0-44.9, adult: (4) Peripheral neuropathy: Plan: This is a 63yo M with a PMH of poorly controlled DM II, HTN, PVD, BPH, depression and other medical problems listed below who presents with generalized weakness and inability to care for himself at home over the past few days. Worsening bilateral lower extremity tingling/numbing sensation in setting of uncontrolled DM II Obtain vitamin B 12 level in AM Optimize DM regimen Trial of gabapentin 200mg TID Fall precautions PT/OT eval; might need rehab (5) Uncontrolled type 2 diabetes mellitus with hyperglycemia: Plan: A1c 10.7 in January 2024 History of noncompliance Hold home agents SSI while in-patient Glycemic consult placed (lantus allergy listed?) BSG AC HS (6) BPH (benign prostatic hyperplasia): Plan: Continue flomax, bladder scan PRN (7) Anxiety and depression: Plan: Continue Zoloft, bupropion (8) ALEJANDRA (obstructive sleep apnea): Plan: Noncompliant with CPAP (9) Hypertension: Plan: Continue Toprol, lisinopril (10) Nonischemic cardiomyopathy: Plan: Echo 04/03 with EF: 55-60%, LVH, AV sclerosis States he has been taking home medications including diuretics, although h/o noncompliance Continue spironolactone 25mg, lasix 60mg daily, Toprol 50 BID Low sodium diet (11) H/O drug abuse: Plan: History of smoking and orally ingesting methamphetamines in the past Reports last IV drug use was approximately 10 years ago Urine drug screen pending (12) Peripheral vascular disease: Plan: S/p ablation right leg 12/2022 Continue aspirin DVT Ppx: SQ lovenox Code status: DNR/DNI PCP: John Fofana Dispo: admitted to med/surg Patient seen in collaboration with Dr. Mclaughlin. Please see addendum. I spent a total of 75 minutes coordinating, documenting, and providing care for this patient excluding time spent in the performance of separately billed services. History of Present Illness Chief Complaint: fatigue, Primary Care Provider: Willam Fofana, This is a 63yo M with a PMH of poorly controlled DM II, HTN, PVD, BPH, depression and other medical problems listed below who presents with generalized weakness and inability to care for himself at home over the past few days. Patient lives alone and ambulates independently at baseline. Sleeps in a recliner. Over the past few days, has had worsening tingling and discomfort in lower extremities that have made him hesitant to ambulate. Endorses decreased energy over the past few days and did not trust himself to drive to hospital so called EMS. Blood sugar has been ranging in 200s per sensor. States he has been compliant with medications. No F/C, lightheadedness, CP, SOB, N/V, abd pain, dysuria, diarrhea or constipation. Allergies Allergy/AdvReac Type Severity Reaction Status Date / Time shellfish derived Allergy Severe Swelling Verified 05/09/24 15:21 amoxicillin Allergy Intermediate HIVES Verified 05/09/24 15:21 clavulanic acid Allergy Intermediate HIVES Verified 05/09/24 15:21 permethrin Allergy Intermediate swelling Verified 05/09/24 15:21 shrimp Allergy Intermediate SWELLS Verified 05/09/24 15:21 sulfamethoxazole Allergy Unknown CAN'T Verified 05/09/24 15:21 [From Bactrim] REMEMBER trimethoprim [From Bactrim] Allergy Unknown CAN'T Verified 05/09/24 15:21 REMEMBER insulin glargine AdvReac Severe CHF Verified 05/09/24 15:21 [From Lantus U-100 Insulin] Home Medications Medication Instructions Recorded Confirmed Type aspirin 81 mg tablet,delayed 81 mg PO DAILY 08/01/22 05/09/24 History release bupropion HCl 300 mg 24 hr tablet, 300 mg PO DAILY 08/01/22 05/09/24 History extended release empagliflozin 25 mg tablet 25 mg PO DAILY 08/01/22 05/09/24 History (Jardiance) insulin aspart U-100 100 unit/mL 60 unit subcut BIDM 08/01/22 05/09/24 History (3 mL) subcutaneous pen ascorbic acid (vitamin C) 500 mg 500 mg PO DAILY 09/21/22 05/09/24 History tablet (Vitamin C) multivitamin with minerals 1 tab PO DAILY 09/21/22 05/09/24 History (Multiple Vitamin-Minerals tablet) lisinopril 20 mg tablet 20 mg PO QAM 10/10/23 05/09/24 History sertraline 100 mg tablet 100 mg PO QAM 10/10/23 05/09/24 History insulin glargine U-300 conc 300 100 unit subcut BID 10/14/23 05/09/24 History unit/mL (3 mL) subcutaneous pen (Toujeo Max U-300 SoloStar) tamsulosin 0.4 mg capsule 0.4 mg PO DAILY 10/14/23 05/09/24 History spironolactone 25 mg tablet 25 mg PO DAILY 05/09/24 05/09/24 History Past Med/Surg History Problem List (Updated 05/09/24 @ 17:06 by Anastasiia Keating PA-C) Peripheral neuropathy Unable to care for self (Acute) Generalized muscle weakness (Acute) Ambulatory dysfunction (Acute) Noncompliance w/medication treatment due to intermit use of medication BPH (benign prostatic hyperplasia) Anxiety and depression Bronchitis Uncontrolled type 2 diabetes mellitus with hyperglycemia (Acute) Ambulatory dysfunction (Acute) Generalized weakness (Acute) Acute hyperglycemia (Acute) Morbid obesity with BMI of 40.0-44.9, adult Acute hyperglycemia (Acute) ALEJANDRA (obstructive sleep apnea) Hyperglycemia Nonischemic cardiomyopathy (Chronic) "prior EF 30% per Epic records. echo 02/2015- EF 40-45%" DM type 2 (diabetes mellitus, type 2) (Chronic) H/O TB (tuberculosis) (Chronic) H/O toxoplasmosis (Chronic) Hepatitis C (Chronic) Hypertension (Chronic) Colon polyp (Chronic) "TVA polyp on colonoscopy 09/2014" H/O colonoscopy (Chronic) "11/2015- diverticulosis" S/P cardiac cath (Chronic) "for abnormal stress test. cath 03/18/2015-essentially normal coronaries with no obstructive disease " Colon polyp Confusion (Acute) Hyperglycemia due to type 2 diabetes mellitus (Acute) DVT prophylaxis Polyneuropathy Peripheral vascular disease Depression Bilateral cellulitis of lower leg (Acute) Fatigue (Acute) Encephalopathy Hypercapnic respiratory failure Varicose veins of bilateral lower extremities with other complications Morbid obesity H/O drug abuse Medical History Shortness of breath Acute dehydration Accidental fall tripped over dog bed, hit back of head, checked in the ED poss concussion Dysequilibrium Hepatitis C Diabetes mellitus, type 2 Depression Anxiety Hypertension Surgical History History of colonoscopy History of umbilical hernia repair x2 History of tooth extraction History of wisdom tooth extraction History of cardiac cath 03/2015 @ [facility], no stents follows with Dr. Monet Family History Mother Family history of diabetes mellitus Father Family history of diabetes mellitus Other No family history of adverse response to anesthesia Social History Smoking Status: Never smoker Tobacco Type: Cigarettes Cigarettes Per Day: Says he occasionally will smoke a cigar.; Second Hand Exposure: Yes; Do You Dip or Chew Tobacco: No; Hx Alcohol Use: No Hx Substance Use: No Preferred Language: Setswana Communication Ability: Effective Direct Care Worker Required: No Beliefs That Will Affect Care: None marital status: Single Current Living Situation: Alone Current Living Situation Comment: lives alone Feels Safe at Home: Yes Assistive Devices: None Review of Systems Review of Systems: At least ten systems reviewed and negative except as noted in the HPI. Physical Exam Physical Exam: Please see Dr. Mclaughlin's addendum for physical exam. Results & Data Results & Data Vital Signs (Past 12 Hours) Vital Signs Temp Pulse Resp BP Pulse Ox O2 Del Method 05/09/24 13:16 70 93 Room Air 05/09/24 13:02 82 05/09/24 12:52 95 Room Air 05/09/24 12:52 36.7 C 84 20 161/98 H 95 Room Air Laboratory Results Short CBC 05/09/24 Range/Units 13:05 WBC 11.13 H (4.8-10.8) K/ul Hgb 16.4 (14.0-18.0) g/dl Hct 49.3 (42.0-52.0) % Plt Count 290 (130-400) K/uL BMP 05/09/24 13:05 Sodium 135 L Potassium 5.0 Chloride 103 Carbon Dioxide 27 BUN 19 Creatinine 0.64 Glucose 285 H Calcium 9.4 Liver Function 05/09/24 Range/Units 13:05 Total Bilirubin 0.5 (0.2-1.0) mg/dl AST 21 (13-39) U/L ALT 24 (7-52) U/L Alkaline Phosphatase 91 (34-104) U/L Albumin 3.7 (3.4-5.0) gm/dl Urine 05/09/24 Range/Units 14:30 Urine Color Yellow Urine Appearance Clear (Clear) Urine pH 5.5 (4.5-7.5) Ur Specific [place] 1.026 (1.000-1.030) Urine Protein Negative (Negative) Urine Glucose (UA) 2+ H (Negative) Diagnostic Findings Chest X-Ray 05/09/24 13:07 XR chest 1V portable HISTORY: 63 years-old Male weakness acute weakness COMPARISON: 03/22/2024 TECHNIQUE: AP view of the chest FINDINGS: Cardiac silhouette is enlarged. Lungs appear clear. No pneumothorax or pleural effusion. The bones appear intact. IMPRESSION: No acute process. ACT 112: Negative or not required by law. The above report was generated using voice recognition software. It may contain grammatical, syntax or spelling errors. Electronically signed by: Juan Gonzalez M.D. 05/09/2024 1:[address] 05/09/24 13:08 CT head/brain wo con CLINICAL HISTORY: 63 years-old Male with BLE weakness. Acute Stroke like symptoms TECHNIQUE: Multiple axial CT images of the head were obtained without contrast. A dose lowering technique was utilized adhering to the principles of ALARA. CT DOSE: 625.8 mGy.cm COMPARISON: None. FINDINGS: No acute intracranial hemorrhage, midline shift or mass effect is present. The ventricular system is stable. White matter hypodensities are similar to prior exam and favor small vessel disease. There are no findings to suggest acute dural sinus thrombosis or acute territorial infarct. CSF density anterior to the right temporal lobe is unchanged. There may be right temporal lobe volume loss. The appearance of the brain is unchanged. A left-sided craniotomy is again noted. There are no calvarial fractures. IMPRESSION: No acute intracranial findings. ACT 112: Negative or not required by law. The above report was generated using voice recognition software. It may contain grammatical, syntax or spelling errors. Electronically signed by: Juan Gonzalez M.D. 05/09/2024 1:48 PM Supervising Physician Co-Signing Physician Notes Patient is a 63-year-old male with possible history of type 2 diabetes mellitus, hypertension, peripheral vascular disease presented to the ED with bilateral lower extremity numbness/tingling sensation. Denies fever, chills, chest pain, shortness of breath, abdominal pain or urinary symptoms. Chest x-ray on admission did not show any acute finding CT head without contrastno acute findings On physical examination; Constitutional: Awake, alert oriented x 3; not in distress. Respiratory: Bilateral vesicular breath sound Cardiovascular: RRR, no murmur, no edema Vessels: no JVD or carotid bruit Chest: normal inspection of chest Skin: no rashes, warm and dry normal turgor Neurologic: PERRL, EOMI, accommodation nl, no face palsy, no dysarthria CN's II- XI intact bilaterally. Bilateral lower extremity strength4/5, sensation intact, joint sensation intact Psychiatric: A+Ox3, euthymic affect Assessment/plan Possible diabetic neuropathy Patient presents with bilateral lower extremity tingling/numbing sensation History of uncontrolled type 2 diabetes mellitus Will start him on a trial of gabapentin 200mg tid Obtain vitamin B12 level PT OT eval; might need rehab Continue other home meds I have reviewed the advanced practitioner's documentation, and I agree with, and take responsibility for the plan of care I spent a total of 30 minutes coordinating, documenting, and providing care for this patient excluding time spent in the performance of separately billed services. All of the aforementioned completed while collaborating with the assigned advanced practitioner for a full treatment plan (9) Hypertension Hypertension type: primary hypertension Qualified Code(s): I10 - Essential (primary) hypertension
[2024-05-09 16:49] LABS: INR 0.9 (0.9-1.1); Prothrombin Time 10.2 Seconds (9.0-12.0)
[2024-05-09] MEDS ORDERED: GLUCAGON FOR INJ 1 MG VIAL SQ PRN (17:10)
[2024-05-09] MEDS ORDERED: GLUCOSE 10 TAB/TUBE PO PRN (17:10)
[2024-05-09] MEDS ORDERED: PHARMACY GLYCEMIC MGMT CONSULT PRN (17:10)
[2024-05-09] MEDS ORDERED: DEXTROSE 50% 50 ML SYRINGE IV PRN (17:10)
[2024-05-09] MEDS ORDERED: CARBOHYDRATES FOR HYPOGLYCEMIA PO PRN (17:10)
[2024-05-09] MEDS ORDERED: GLUCOSE 40% GEL 15 GM TUBE PO PRN (17:10)
[2024-05-09] MEDS: GABAPENTIN 100 MG CAP PO SCH (17:54)
--- OUTSIDE RECORDS SUMMARY | 2024-05-09 18:07 | External Medical Summary | Summary of Care ---
Author Name Unknown Organization [facility] Address [address] [place] [place] [address] Phone [phone] Care Team Providers Care Real Estate Financial Analyst Name Role Phone Brody Dejesus DO Primary Care Provider Reason for Visit * Reason Comments eRx-Medication Refill Encounter Details Date Type Department Care Team (Late st Contact Info) Description 05/03/2024 Refill Pharmacy, [facility] [address] [facility] [place] [address] Brody Dejesus DO [address] [facility] [place] [address] Type 2 diabetes mellitus with hemoglobin A1c goal of less than 7.0% ([facility]) Allergies Active Allergy Reactions Criticality Noted Date Comments Amoxicillin-Pot Clavulanate Hives High 11/26/19 12 Sulfamethoxazole-Trimethopri m 02/07/2016 Insulin Glargine 01/21/2016 States he went in to CHF after one shot of insulin Other reaction(s): CHF Permethrin 04/27/2013 Shrimp Flavor 04/27/2013 documented as of this encounter (statuses as of 05/03/2024) Medications Medication Sig Dispensed Refills Start Date End Date Status VITAMIN C 500 MG PO TABS 1000mg daily Active nitroglycerin (NITROSTAT) 0.4 MG SUBLIndications:In ferior myocardial infarction (HCC) Place 1 Tab under the tongue as needed for Pain, Chest. May repeat 3 times. If chest pain continues, call 911. 25 Tab 11 03/01/20 Active Additional Information Patient not taking.Informant: Patient, Reported on 03/28/2024 Chromium-Cinnamon 50-500 MCG-MG CAPS Take by mouth. 1 tab daily Active Aspirin 81 MG Tablet Take 1 Tab by mouth daily. 34 Tab 5 09/05/20 Active Bacillus Coagulans-Inulin (PROBIOTIC) 1-250 BILLION-MG CAPS daily. 12/24/19 Active Multiple Vitamins-Minerals (MULTIVITAMIN ADULT) TABS Take 1 Tablet by mouth in the morning. Active Furosemide 40 MG Oral Tablet (LASIX)Indications :Non-ischemic cardiomyopathy (HCC) TAKE 2 TABLETS BY MOUTH IN THE MORNING AND 1 TABLET IN THE AFTERNOON 270 Tab 3 08/28/20 Active Additional Information Patient taking differently: 120 mg Daily(AM), TAKE 2 TABLETS BY MOUTH IN THE MORNING AND 1 TABLET IN THE AFTERNOONPatient takes 3 tabs in AM, Informant: Patient, Reported on 10/21/2022 Dexcom G6 Project Director DeviceIndications: DM type 2, not at goal (HCC) Use as directed. E11.9 1 Each 02/05/20 21 Active Dexcom G6 SensorIndications: DM type 2, not at goal (HCC) Use as directed. E11.9 3 Each 3 02/05/20 21 Active Dexcom G6 TransmitterIndicat ions:DM type 2, not at goal (HCC) Use as directed. E11.9 1 Each 02/05/20 21 Active BD Pen Needle Coby 2nd Gen 32G X 4 MM (Insulin Pen Needle) Use up to 4 times daily with insulin pens 300 Each 3 06/25/20 21 Active Flovent HFA 220 MCG/ACT Inhalation Aerosol (fluticasone) Inhale 2 Puffs by mouth 2 times a day. 12 g 1 10/21/19 22 Active Metoprolol Succinate ER 50 MG Oral Tablet Extended Release 24 Hour (toPROL XL)Indications:Non -ischemic cardiomyopathy (HCC),Sinus tachycardia Take 1 tablet by mouth twice daily 180 Tablet 3 10/28/19 22 Active Spironolactone 25 MG Oral Tablet (Aldactone)Indicat ions:Non-ischemic cardiomyopathy (HCC),HTN, goal below 130/80 Take 1 Tablet (25 mg) by mouth in the morning. 90 Tablet 3 08/20/20 22 Active metFORMIN HCl ER 750 MG Oral Tablet Extended Release 24 Hour (Glucophage XR)Indications:Typ e 2 diabetes mellitus with hemoglobin A1c goal of less than 8.0% (HCC) Take 2 Tablets by mouth in the morning. 180 Tablet 1 02/03/20 23 Active Lisinopril 20 MG Oral Tablet (Prinivil) Take 1 Tablet by mouth in the morning. 30 Tablet 11 06/01/20 23 Active Sertraline HCl 100 MG Oral Tablet (Zoloft)Indication s:Moderate episode of recurrent major depressive disorder (HCC) Take 1 Tablet by mouth in the morning. 90 Tablet 3 08/09/20 23 Active Tamsulosin HCl 0.4 MG Oral Capsule (Flomax)Indication s:Recurrent UTI Take 1 Capsule by mouth in the morning. 30 Capsule 11 09/28/20 23 Active Toujeo Max SoloStar 300 UNIT/ML Subcutaneous Solution Pen-injector (Insulin Glargine (2 Unit Dial))Indications: Type 2 diabetes mellitus with hemoglobin A1c goal of less than 7.0% (HCC) Inject 100 Units under the skin in the morning and 100 Units before bedtime. 60 mL 3 10/19/19 24 Active NovoLOG FlexPen ReliOn 100 UNIT/ML Subcutaneous Solution Pen-injector (insulin aspart)Indications :Type 2 diabetes mellitus with complication, with long-term current use of insulin (HCC) INJECT 60 UNITS SUBCUTANEOUSLY WITH BREAKFAST, 20 units with lunch AND 60 WITH SUPPER 130 mL 1 12/22/19 24 Active Additional Information Patient taking differently: INJECT 60 UNITS SUBCUTANEOUSLY WITH BREAKFAST AND 60 WITH SUPPER, Reported on 03/27/2024 buPROPion HCl ER (XL) 300 MG Oral Tablet Extended Release 24 Hour (Wellbutrin XL)Indications:Mod erate episode of recurrent major depressive disorder (HCC) TAKE 1 TABLET BY MOUTH IN THE MORNING 90 Tablet 3 04/26/20 24 Active Jardiance 25 MG Oral Tablet (Empagliflozin)Ind ications:Type 2 diabetes mellitus with hemoglobin A1c goal of less than 7.0% (HCC) TAKE 1 TABLET BY MOUTH IN THE MORNING 90 Tablet 3 05/03/20 24 Active Empagliflozin 25 MG Oral Tablet (Jardiance)Indicat ions:Type 2 diabetes mellitus with hemoglobin A1c goal of less than 7.0% (HCC) Take 1 Tablet by mouth in the morning. 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, right 07/11 Overview: HIV negative Non-ischemic cardiomyopathy 02/26/2014 HTN, goal below 130/80 02/26/2014 History of heroin abuse 02/26/2014 Hepatitis C documented as of this encounter (statuses as of 05/03/2024) Resolved Problems Problem Noted Date Diagnosed Date [...] as of this encounter (statuses as of 05/03/2024) Immunizations Name Administration Dates Next Due COVID-19 mRNA, LNP-s, No Pre serve, 2-Dose Series (Pfizer) 09/12/2021,12/18/2020,11/27/2020 Hepatitis B, 20+ yrs 07/26/2015,03/01/2015,11/29 Pneumococcal Conjugate Vacci ne, 20-valent ([id number]) 07/15/2022 Pneumococcal Polysaccharide PPV23 (Pneumovax) 02/26/2014 Seasonal [...] Answer Date Recorded PHQ Adult Total Score 13 03/27/2024 Hunger Vital Sign Answer Date Recorded Within the past 12 months, y ou worried that your food would run out before you got the money to buy more. Never true 11/11/19 24 Within the past 12 months, t he food you bought just didn't last and you didn't have money to get more. Never true 11/11/2023 Childcare Answer Date Recorded Do you feel overwhelmed with taking care of a child, family member or friend? No 11/11/2023 Does your family need help f inding childcare? (Household - for ages 0-17 years) Not on file 11/11/2023 Clothing Answer Date Recorded Have you been unable to get clothing when it was really needed? No 11/11/2023 Is your family able to get c lothes or diapers when needed? (Household - for ages 0-17 years) Not on file 11/11/2023 Personal Safety Answer Date Recorded Do you feel unsafe or have concerns for your saf ety? No 11/11/2023 Do you have concerns for you r family's safety? (Household - for ages 0-17 years) Not on file 11/11/2023 Utilities Answer Date Recorded Do you have trouble paying y our heating, water, or electric bill? No 11/11/2023 Is your family able to pay t he heat, water, or electric bill? (Household - for ages 0-17 years) Not on file 11/11/2023 Does your family have access to good internet? (Household - for ages 0-17 years) Not on file 11/11/2023 Employment Status Answer Date Recorded Are you unemployed or without regular income? No 11/11/2023 Does the household have a [facility] source of income? (Household - for ages 0-17 years) Not on file 11/11/2023 Social Connections Answer Date Recorded How often do you feel lonely or isolated from th ose around you? Never 11/11/2023 Financial Resource Strain Answer Date R ecorded Do you have any trouble payi ng for your medications, or do you think you might in the future? No 11/11/2023 Does your family have troubl e paying for medicine? (Household - for ages 0-17 years) Not on file 11/11/2023 Transportation Needs Answer Date Record ed READ ONLY Do you have troubl e getting a ride to medical visits or work? Never True 11/11/2023 Does your family have a hard time getting a ride to doctors visits? (Household - for ages 0-17 years) Not on file 11/11/2023 Has lack of transportation k ept you from medical appointments, meetings, work, or from getting things needed for daily living? Check all that apply. (Adult - for ages 18 years and over) Not on file 11/11/2023 Do you (or your family) have trouble finding or paying for a ride (transportation)? (Household - for ages 0-17 years) Not on file 11/11/2023 Housing Stability Answer Date Recorded Do you currently live in a s helter or have no steady place to sleep at night? No 11/11/2023 READ ONLY Do you think you a re at risk of becoming homeless? No 11/11/2023 Does your family worry about paying for your home or becoming homeless? (Household - for ages 0-17 years) Not on file 0 11/11/2023 Are you homeless or worried that you might be in the future? (Adult - for ages 18 years and over) Not on file Are you (or your family) jefe eless or worried that you might be in the future? (Household - for ages 0-17 years) Not on file Food Insecurity Answer Date Recorded Do you need food for this week? No 11/11/2023 Are you able to get enough f ood for your family? (Household - for ages 0-17 years) Not on file 11/11/2023 Does your family need food t his week? (Household - for ages 0-17 years) Not on file 11/11/2023 Do you always have enough fo od for your family? (Household - for ages 0-17 years) Not on file 11/11/2023 Sex and Gender Information Value Date Recorded Sex Assigned at Male 11/29/2019 9:14 AM EST Gender Identity Male 11/29/2019 9:14 AM EST Sexual Orientation Choose not to disclose 2019 9:14 AM EST Job Start Date Occupation Industry Not on file Not on file Not on file documented as of this encounter Miscellaneous Notes * Telephone Encounter - Alida Byrd RP - 05/03/2024 7:40 AM EDTSigned Prescriptions: Disp Refills Jardiance 25 MG Oral Tablet (Empagliflozin)90 Tab*3 Sig: TAKE 1TABLET BY MOUTH IN THE MORNINGAuthorizing Provider: BRODY DEJESUS User: ALIDA JURADO V- * Telephone Encounter - Alida Byrd RPh - 05/03/2024 7:39 AM EDT Did you pend patient's preferred pharmacy and medication before forwarding?no Pharmacy: [facility] [facility] Pending Prescriptions: Disp Refills Jardiance 25 MG Oral Tablet (Empagliflozi*90 Tab*0 Sig: TAKE 1 TABLET BY MOUTH IN THE MORNING Last Visit: 09/01/2023 (in office), 09/15/2023 (telemedicine) Next Visit: Visit date not found If no future appointments scheduled, and last appointment is greater than a year ago, please schedule patient for a follow-up appointment Last date the medication was ordered: 05/13/23 Is this request for a controlled substance?No Urine Drug Screen: Results for orders placed or performed in visit on 10/15/21 TOXICOLOGY, URINE SCREEN W/ CONFIRMATION Result Value Amphetamines Screen, U Positive (A) Benzodiazepines Screen, U Negative Cannabinoids Screen, U Negative Cocaine Metabolite Screen, U Negative Hydrocodone Screen, U Negative Methadone Metabolite Screen, U Negative Morphine/Codeine Screen, U Negative Oxycodone Screen, U Negative Narrative Cutoff Concentrations: Drug Level Amphetamines 500 ng/mL Benzodiazepines 100 ng/mL Cannabinoids 50 ng/mL Cocaine Metabolite 150 ng/mL Hydrocodone / Hydromorphone 300 ng/mL Methadone Metabolite 100 ng/mL Morphine / Codeine 300 ng/mL Oxycodone / Oxymorphone 100 ng/mL Screening results are presumptive and can only be used for medical purposes. Positive screening results are reflexed to confirmatory testing. *Note: Due to a large number of results and/or encounters for the requested time period, some results have not been displayed. A complete set of results can be found in Results Review. Patient Phone Numbers Labs: Lab Results Component Value Date/Time CREAT 0.9 01/24/2024 11:36 AM CREAT 1.0 08/16/2020 02:06 PM POTASSIUM 5.3 (H) 01/24/2024 11:36 AM POTASSIUM 4.9 08/16/2020 02:06 PM TSH 3.51 12/05/2021 01:30 PM TSH 1.82 02/26/2014 11:33 AM LDLCALC 75 08/31/2023 01:56 PM LDLCALC 74 03/15/2020 03:20 PM LDLDIRECT NOT APPLICABLE 03/15/2020 03:20 PM LDLDIRECT 94 01/28/2019 09:38 AM ALT 33 01/24/2024 11:36 AM ALT 22 08/29/2020 09:45 AM HGBA1C 10.7 (H) 01/24/2024 11:36 AM HGBA1C 7.8 (H) 01/13/2023 10:59 AM HGBA1C 10.4 (H) 05/28/2020 11:31 AM Alida Jurado RPh, CACP, CDE Clinical Pharmacist [facility] 05/03/2024, 7:39 AM documented in this encounter Plan of Treatment Upcoming Encounters Date Type Department Care Team (Late st Contact Info) Description 07/11/2024 10:20 AM EDT Office Visit Nutrition & Weight Management, [facility] [address] [place] [address] Gracia Mcclendon PA-C [address] [place] [address] 08/01/2024 10:00 AM EDT Office Visit [facility] [address] [facility] [address] Brody Dejesus, DO [address] [place] [place] [address] 08/03/2024 7:30 AM EDT Office Visit Pharmacy, [place] [address] [place] [address] [facility] [address] [place] [address] 09/12/2024 9:30 AM EST Hospital Encounter ENDO [facility], Endoscopy Room [facility] [address] [facility] [place] [phone] Kandice Arevalo MD [address] [place] [address] 09/12/2024 9:30 AM EST - 09/12/2024 10:00 AM EST Surgery ENDO [facility], Endoscopy Room [facility] [address] [facility] [place] [phone] Kandice Arevalo MD [address] [place] [address] COLONOSCOPY FLEXIBLE PROXIMAL DIAGNOSTIC 02/02/2025 10:15 AM EDT Office Visit [address] [address] Mason Jean-Baptiste MD [address] [place] [address] [phone] Scheduled Procedures Name Priority Associated Diagnoses Date/Ti me COLONOSCOPY FLEXIBLE PROXIMAL DIAGNOSTIC Recall History of colon polyps 09/12/2024 9:30 AM EST Health Maintenance Due Date Last Done Comments Cologuard 2007 Fecal Occult Blood Test 2007 Sigmoidoscopy 2007 Diabetic Foot Exam 11/20/2023 11/20/2022, 0 06/25/2021, 05/28/2020, Additional history exists Colonoscopy 01/11/2024 01/10/2019, 11/12, 09/25/2014 Colorectal Cancer Screening 01/11/2024 DTaP,Tdap,and Td Vaccines (2 - Td or Tdap) 02/27/2024 02/26/2014 Influenza Vaccine (FLU shot) (#1) 2024 07/06/2023, 07/15/2022, 06/25/2021, Additional history exists B-12 07/20/2024 07/20/2023, 2 02/2022, 05/28/2020, Additional history exists HbA1c 07/25/2024 01/24/2024, 11/0 04/2023, 07/20/2023, Additional history exists Albumin/Creatinine Ratio 08/13/2024 023, 07/20/2023, 06/11/2021, Additional history exists GFR 01/23/2025 01/24/2024, 020 12/2022, 05/08/2022, Additional history exists Diabetic Eye Exam 02/01/2025 02/02/2024, , 08/31/2023, Additional history exists Depression Monitoring 03/27/2025 03/27/2024 Lipid Panel 08/31/2028 08/31/2023, 04/11, 06/11/2021, Additional history exists Hepatitis B Vaccine Completed 07/26/2015, 03/01/2015, 11/29/2014 *BASELINE EKG FOR HTN Completed 05/11/2018, 015 RETIRED - COLONOSCOPY-EVERY 5 YRS AGES 18-100 Discontinued 01/10/2019, 12/04/2015, 09/25/2014 Zoster Vaccines Completed 03/11/2020, 10/13/2019 Pneumococcal Vaccine: Pediatrics (0 to 5 Years) and At-Risk Patients (6 to 64 Years) Completed 07/15/2022, 02/26/2014 COVID-19 Vaccine Completed 11/07/2023, 09/2022, 05/07/2022, Additional history exists HPV (Gardasil) Vaccine Aged Out No lo nger eligible based on patient's age to complete this topic MENINGOCOCCAL (MENACTRA/MENVEO) Aged Out No longer eligible based on patient's age to complete this topic documented as of this encounter Medical Devices Not on filedocumented as of this encounter Visit Diagnoses Diagnosis Type 2 diabetes mellitus with hemoglobin A1c goal of less than 7.0% (HCC) History of colon polyps Personal history of colonic polyps documented in this encounter Care Teams Real Estate Financial Analyst Relationship Specialty Start Date End Date Brody Dejesus DO [address] [place] [address] PCP - General Family Medicine 04/26/17 documented as of this encounter
--- OUTSIDE RECORDS SUMMARY | 2024-05-09 18:08 | External Medical Summary | Summary of Care ---
Author Name Unknown Organization [facility] Address [address] [place] [facility] [place] [place] [address] Phone [phone] Care Team Providers Care Outreach Associate Name Role Phone Brody Dejesus DO Primary Care Provider Reason for Visit * Reason Comments eRx-Medication Refill Encounter Details Date Type Department Care Team (Late st Contact Info) Description 04/25/2024 Refill Family Practice [facility] [place] [address] [place] [address] Brody Dejesus DO [address] [facility] [place] [address] Moderate episode of recurrent major depressive disorder (HCC) Allergies Active Allergy Reactions Criticality Noted Date Comments Amoxicillin-Pot Clavulanate Hives High 11/26/19 12 Sulfamethoxazole-Trimethopri m 02/07/2016 Insulin Glargine 01/21/2016 States he went in to CHF after one shot of insulin Other reaction(s): CHF Permethrin 04/27/2013 Shrimp Flavor 04/27/2013 documented as of this encounter (statuses as of 04/26/2024) Medications Medication Sig Dispensed Refills Start Date End Date Status VITAMIN C 500 MG PO TABS 1000mg daily Active nitroglycerin (NITROSTAT) 0.4 MG SUBLIndications:In ferior myocardial infarction (HCC) Place 1 Tab under the tongue as needed for Pain, Chest. May repeat 3 times. If chest pain continues, call 911. 45 Tab 11 05/22/20 15 Active Additional Information Patient not taking.Informant: Patient, [...] Informant: Patient, Reported on 10/21/2022 Dexcom G6 Bank Representative DeviceIndications: DM type 2, not at goal [...] morning. 180 Tablet 1 02/03/20 23 Active Empagliflozin 25 MG Oral Tablet (Jardiance)Indicat ions:Type 2 diabetes mellitus with hemoglobin A1c goal of less than 7.0% (HCC) Take 1 Tablet by mouth in the morning. 90 Tablet 3 05/13/20 23 Active Lisinopril 20 MG Oral Tablet [...] MORNING 90 Tablet 3 04/26/20 24 Active buPROPion HCl ER (XL) 300 MG Oral Tablet Extended Release 24 Hour (Wellbutrin XL)Indications:Mod erate episode of recurrent major depressive disorder (HCC) Take 1 Tablet by mouth in the morning. 90 Tablet 3 05/12/20 23 024 Discontinued documented as of this encounter (statuses as of 04/26/2024) Active Problems Problem Noted Date Diagnosed Date [...] as of this encounter (statuses as of 04/26/2024) Resolved Problems Problem Noted Date Diagnosed Date [...] as of this encounter (statuses as of 04/26/2024) Immunizations Name Administration Dates Next Due COVID-19 mRNA, LNP-s, No Pre serve, 2-Dose Series (Pfizer) 09/12/2021,12/18/2020,11/27/2020 Hepatitis B, 20+ yrs 07/26/2015,03/01/2015,11/29 Pneumococcal Conjugate Vacci ne, 20-valent ([id number]) 07/15/2022 Pneumococcal Polysaccharide PPV23 (Pneumovax) 02/26/2014 Seasonal [...] No 11/11/2023 Does the household have a [facility] source of income? (Household - for ages [...] encounter Miscellaneous Notes * Telephone Encounter - Taniya Diaz [facility] - 04/26/2024 10:34 AM EDTSigned Prescriptions: Disp Refills buPROPion HCl ER (XL) 300 MG Oral Tablet E*90 Tab*3 Sig: TAKE 1 TABLET BY MOUTH IN THE MORNINGAuthorizing Provider: BRODY DEJESUS User: TANIYA DIAZ N documented in this encounter Plan of Treatment Upcoming Encounters Date Type Department Care Team (Late st Contact Info) Description 04/26/2024 11:30 AM EDT [address] [address] [facility] [address] [place] [address] 07/11/2024 10:20 AM EDT Office Visit Nutrition & Weight Management, [facility] [address] [facility] [address] [place] [address] Gracia Mcclendon PA-C [address] [facility] [address] [place] [address] 08/01/2024 10:00 AM EDT Office Visit Family Practice [facility] [address] [facility] [place] [address] Brody Dejesus, [address] [place] [address] 09/12/2024 9:30 AM EST Hospital Encounter ENDO [facility], Endoscopy Room [facility] [address] [facility] [address] [phone] Kandice Arevalo MD [address] [place] [address] 09/12/2024 9:30 AM EST - 09/12/2024 10:00 AM EST Surgery ENDO [facility], Endoscopy Room [facility] [address] [place] [phone] Kandice Arevalo MD [address] [place] [place] [address] COLONOSCOPY FLEXIBLE PROXIMAL DIAGNOSTIC 02/02/2025 10:15 AM EDT Office Visit [address] [address] Mason Jean-Baptiste MD [address] [place] [address] Scheduled Procedures Name Priority Associated Diagnoses Date/Ti [...] 06/25/2021, Additional history exists B-12 07/20/2024 07/20/2023, 11/12, 05/28/2020, Additional history [...] as of this encounter Visit Diagnoses Diagnosis Moderate episode of recurrent major depressive disorder (HCC) History of colon polyps Personal history of colonic polyps documented in this encounter Care Teams Outreach Associate Relationship Specialty Start Date End Date Brody Dejesus DO [address] [place] [address] PCP - General Family Medicine 04/26/17 documented as of this encounter
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
--- OUTSIDE RECORDS SUMMARY | 2024-05-09 18:08 | External Medical Summary | Summary of Care ---
Author Name Unknown Organization [facility] Address [address] [place] [address] Phone [phone] Care Team Providers Care Metal Precision Machine Assembler Name Role Phone MorenoWillam newton Yinka LU Primary Care Provider [phone] Encounter Details Date Type Department Care Team (Late st Contact Info) Description 03/24/2024 Population Health External Data Unspecified Department Allergies Active Allergy Reactions Criticality Noted Date Comments Amoxicillin-Pot Clavulanate Hives High 11/26/19 12 Sulfamethoxazole-Trimethopri m 02/07/2016 Insulin Glargine 01/21/2016 States he went in to CHF after one shot of insulin Other reaction(s): CHF Permethrin 04/27/2013 Shrimp Flavor 04/27/2013 documented as of this encounter (statuses as of 03/24/2024) Medications Medication Sig Dispensed Refills Start Date [...] Informant: Patient, Reported on 10/21/2022 Dexcom G6 Supervisor Network Control Operators DeviceIndications:D M type 2, not at goal [...] long-term current use of insulin ([facility]) INJECT 60 UNITS SUBCUTANEOUSLY WITH BREAKFAST, 20 units with lunch AND 60 WITH SUPPER 130 mL 1 4 Active documented as of this encounter (statuses as of 03/24/2024) Active Problems Problem Noted Date Diagnosed Date [...] goal of less than 7.0% 06/05/2020 Old [place] (myocardial infarction) 09/25/2019 Type 2 diabetes mellitus wit h complication, with long-term current use of insulin 03/17/2019 Moderate episode of recurrent major depressive d isorder 03/17/2019 Peripheral vascular disease 03/17/2019 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, right 07/11 Overview: HIV negative Non-ischemic cardiomyopathy 02/26/2014 HTN, goal below 130/80 02/26/2014 History of heroin abuse 02/26/2014 Hepatitis C documented as of this encounter (statuses as of 03/24/2024) Resolved Problems Problem Noted Date Diagnosed Date [...] as of this encounter (statuses as of 03/24/2024) Immunizations Name Administration Dates Next Due COVID-19 mRNA, LNP-s, No Pre serve, 2-Dose Series ([employer] IO) 09/12/2021,12/18/2020,11/27/2020 Hepatitis B, 20+ yrs 07/26/2015,03/01/2015,11/29 Pneumococcal Conjugate Vacci ne, 20-valent ([id number]) 07/15/2022 Pneumococcal Polysaccharide PPV23 (Pneumovax) 02/26/2014 Seasonal [...] Care Team (Late st Contact Info) Description 03/29/2024 9:00 AM EDT Hospital Encounter ENDO [facility], Endoscopy Room [facility] [address] [place] [phone] Kandice Arevalo MD [address] [place] [address] 03/29/2024 9:00 AM EDT - 03/29/2024 9:30 AM EDT Surgery ENDO [facility], Endoscopy Room [facility] [address] [place] [phone] Kandice Arevalo MD [address] [place] [address] COLONOSCOPY FLEXIBLE PROXIMAL DIAGNOSTIC 04/07/2024 2:30 PM EDT Office Visit [facility], [address] [address] 07/11/2024 10:20 AM EDT Office Visit Nutrition & Weight Management, [facility] 132 [facility] [place] [address] Gracia Mcclendon PA-C 132 [facility] [address] 08/01/2024 10:00 AM EDT Office Visit Family Practice [facility] 200 [facility] [place] [address] Willam Fofana, DO 200 [facility] [place] [address] 02/02/2025 10:15 AM EDT Office Visit [facility] [address] [place] [address] Mason Jean-Baptiste MD [address] [place] [address] Scheduled Procedures Name Priority Associated Diagnoses Date/Ti [...] 08/13/2024 023, 07/20/2023, 06/11/2021, Additional history exists Depression Monitoring 11/11/2024 11/11/2023 GFR 01/23/2025 01/24/2024, 02/0 12/2022, 05/08/2022, Additional [...] filedocumented as of this encounter Care Teams Metal Precision Machine Assembler Relationship Specialty Start Date End Date Willam Fofana DO [address] [place] [address] PCP - General Family Medicine 04/26/17 documented as of this encounter
--- OUTSIDE RECORDS SUMMARY | 2024-05-09 18:08 | External Medical Summary | Summary of Care ---
Author Name Unknown Organization [facility] Address [address] [place] [address] Phone [phone] Care Team Providers Care Central Office Operator Name Role Phone Willam Fofana DO Primary Care Provider Encounter Details Date Type Department Care Team (Late st Contact Info) Description 04/20/2024 10:15 AM EDT Scheduled Telephone Care Coordination and Integration [address] [place], [place] [phone] Gracia aSnford [facility] Powerplant Operator [address] [place], [place] [phone] Allergies Active Allergy Reactions Criticality Noted Date Comments Amoxicillin-Pot Clavulanate Hives High 11/26/19 12 Sulfamethoxazole-Trimethopri m 02/07/2016 Insulin Glargine 01/21/2016 States he went in to CHF after one shot of insulin Other reaction(s): CHF Permethrin 04/27/2013 Shrimp Flavor 04/27/2013 documented as of this encounter (statuses as of 04/20/2024) Medications Medication Sig Dispensed Refills Start Date [...] Informant: Patient, Reported on 10/21/2022 Dexcom G6 Registered Veterinary Technician DeviceIndications:D M type 2, not at [...] AND 60 WITH SUPPER, Reported on 03/27/2024 documented as of this encounter (statuses as of 04/20/2024) Active Problems Problem Noted Date Diagnosed Date [...] goal of less than 7.0% 06/05/2020 Old [place] (myocardial infarction) 09/25/2019 Type 2 diabetes mellitus wit h complication, with long-term current use of insulin 03/17/2019 Moderate episode of recurrent major depressive d isorder 03/17/2019 Peripheral vascular disease 03/17/2019 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, right 07/11 Overview: HIV negative Non-ischemic cardiomyopathy 02/26/2014 HTN, goal below 130/80 02/26/2014 History of heroin abuse 02/26/2014 Hepatitis C documented as of this encounter (statuses as of 04/20/2024) Resolved Problems Problem Noted Date Diagnosed Date [...] as of this encounter (statuses as of 04/20/2024) Immunizations Name Administration Dates Next Due COVID-19 mRNA, LNP-s, No Pre serve, 2-Dose Series (Pfizer) 09/12/2021,12/18/2020,11/27/2020 Hepatitis B, 20+ yrs 07/26/2015,03/01/2015,11/29 Pneumococcal Conjugate Vacci ne, 20-valent ([id number]) 07/15/2022 Pneumococcal Polysaccharide PPV23 (Pneumovax) 02/26/2014 Seasonal [...] No 11/11/2023 Does the household have a [facility] source of income? (Household - for ages [...] as of this encounter Progress Notes * Gracia Sanford [facility] Powerplant Operator - 04/20/2024 9:59 AM EDT Telemedicine visit: No [facility] A[facility]iliary Powerplant Operator (NITA) documentation: CHW alonso call per Jessica Oneal RN CM No answer, left requesting call back to . Electronically signed by Gracia Sanford [facility] Powerplant Operator at 04/20/2024 10:00 AM EDT documented in this encounter Plan of Treatment Upcoming Encounters Date Type Department Care Team (Late st Contact Info) Description 05/16/2024 6:10 PM EDT Pharmacy Pharmacy, [place] [address] [address] [facility] [address] [address] 07/11/2024 10:20 AM EDT Office Visit Nutrition & Weight Management, [facility] [address] [facility] [place] [address] Gracia Mcclendon PA-C 132 [facility] [place] [address] 08/01/2024 10:00 AM EDT Office Visit Family Practice [facility] [address] [facility] [place] [address] Willam Fofana, 200 [facility] [place] [address] 09/12/2024 9:30 AM EST Hospital Encounter ENDO [facility], Endoscopy Room [facility] [address] [facility] [place] [phone] Kandice Arevalo MD [address] [place] [address] 09/12/2024 9:30 AM EST - 09/12/2024 10:00 AM EST Surgery ENDO [facility], Endoscopy Room [facility] [address] [place] [phone] Kandice Arevalo MD [address] [place] [address] COLONOSCOPY FLEXIBLE PROXIMAL DIAGNOSTIC 02/02/2025 10:15 AM EDT Office Visit [facility] [address] [place] [address] Mason Jean-Baptiste MD 16 [facility] [place] [address] Scheduled Procedures Name Priority Associated Diagnoses Date/Ti [...] Hepatitis B Vaccine Completed 07/26/2015, 03/01/2015, 11/29/2014 RETIRED - COLONOSCOPY-EVERY 5 YRS AGES [...] filedocumented as of this encounter Care Teams Central Office Operator Relationship Specialty Start Date End Date Willam Fofana DO [address] [place] [address] PCP - General Family Medicine 04/26/17 documented as of this encounter
--- OUTSIDE RECORDS SUMMARY | 2024-05-09 18:08 | External Medical Summary | Summary of Care ---
Author Name Unknown Organization [facility] Address [address] [place] [address] Phone [phone] Care Team Providers Care Manager Pest Name Role Phone Willam Fofana DO Primary Care Provider Encounter Details Date Type Department Care Team (Late st Contact Info) Description 04/06/2024 12:30 PM EDT Scheduled Telephone Care Coordination and Integration [address], [place] [phone] Gracia Sanford [facility] [address] [place], [place] [id number] Allergies Active Allergy Reactions Criticality Noted Date Comments Amoxicillin-Pot Clavulanate Hives High 11/26/19 12 Sulfamethoxazole-Trimethopri m 02/07/2016 Insulin Glargine 01/21/2016 States he went in to CHF after one shot of insulin Other reaction(s): CHF Permethrin 04/27/2013 Shrimp Flavor 04/27/2013 documented as of this encounter (statuses as of 04/06/2024) Medications Medication Sig Dispensed Refills Start Date [...] Informant: Patient, Reported on 10/21/2022 Dexcom G6 Manager Gallery DeviceIndications:D M type 2, not at goal [...] goal of less than 7.0% ([facility]) Inject 100 Units under the skin in the morning and 100 Units before bedtime. 60 mL 3 4 Active NovoLOG FlexPen ReliOn 100 UNIT/ML Subcutaneous Solution Pen-injector (insulin aspart)Indications: Type 2 diabetes mellitus with complication, with long-term current use of insulin ([facility]) INJECT 60 UNITS SUBCUTANEOUSLY WITH BREAKFAST, 20 units with lunch AND 60 WITH SUPPER 130 mL 1 4 Active Additional Information Patient taking differently: INJECT 60 UNITS SUBCUTANEOUSLY WITH BREAKFAST AND 60 WITH SUPPER, Reported on 03/27/2024 documented as of this encounter (statuses as of 04/06/2024) Active Problems Problem Noted Date Diagnosed Date [...] goal of less than 7.0% 06/05/2020 Old [place] (myocardial infarction) 09/25/2019 Type 2 diabetes mellitus wit h complication, with long-term current use of insulin 03/17/2019 Moderate episode of recurrent major depressive d isorder 03/17/2019 Peripheral vascular disease 03/17/2019 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, right 07/11 Overview: HIV negative Non-ischemic cardiomyopathy 02/26/2014 HTN, goal below 130/80 02/26/2014 History of heroin abuse 02/26/2014 Hepatitis C documented as of this encounter (statuses as of 04/06/2024) Resolved Problems Problem Noted Date Diagnosed Date [...] as of this encounter (statuses as of 04/06/2024) Immunizations Name Administration Dates Next Due COVID-19 mRNA, LNP-s, No Pre serve, 2-Dose Series (Pfizer) 09/12/2021,12/18/2020,11/27/2020 Hepatitis B, 20+ yrs 07/26/2015,03/01/2015,11/29 Pneumococcal Conjugate Vacci ne, 20-valent ([id number]) 07/15/2022 Pneumococcal Polysaccharide PPV23 (Pneumovax) 02/26/2014 Seasonal [...] No 11/11/2023 Does the household have a [facility] source of income? (Household - for [...] Progress Notes * Gracia Sanford [facility] - 04/06/2024 12:08 PM EDT Telemedicine visit: No [facility] Social Media Intern (NITA) documentation: CHW alonso call per Jessica Oneal RN CM Spoke to patient who states he is in process of making lunch, requests call back in 10 mins. documented in this encounter Plan of Treatment Upcoming Encounters Date Type Department Care Team (Late st Contact Info) Description 04/07/2024 2:30 PM EDT [facility] [place] [address] [facility] [address] [facility] [address] [place] [facility] [place] [address] 07/11/2024 10:20 AM EDT Office Visit Nutrition & Weight Management, [facility] [address] [facility] [place] [address] Gracia Mcclendon PA-C [address] [facility] [place] [address] 08/01/2024 10:00 AM EDT Office Visit Family Practice [facility] [address] [place] [address] Willam Fofana, DO 200 [facility] [place] [address] 09/12/2024 9:30 AM EST Hospital Encounter ENDO [facility], Endoscopy Room O[facility] [address] [facility] [place] [phone] Kandice Arevalo MD [address] [place] [address] 09/12/2024 9:30 AM EST - 09/12/2024 10:00 AM EST Surgery ENDO [facility], [facility] [place] [phone] Kandice Arevalo MD [address] [place] [address] COLONOSCOPY FLEXIBLE PROXIMAL DIAGNOSTIC 02/02/2025 10:15 AM EDT Office Visit [facility] [address] [place] [address] Mason Jean-Baptiste MD [address] [place] [address] [place] [address] Scheduled Procedures Name Priority Associated Diagnoses Date/Ti [...] filedocumented as of this encounter Care Teams Manager Pest Relationship Specialty Start Date End Date Willam Fofana DO [address] [place] [address] PCP - General Family Medicine 04/26/17 documented as of this encounter
--- OUTSIDE RECORDS SUMMARY | 2024-05-09 18:08 | External Medical Summary | Summary of Care ---
Author Name Unknown Organization [facility] Address [address] [place] [address] Phone [phone] Care Team Providers Care Manager E Commerce Name Role Phone Willam Fofana DO Primary Care Provider Reason for Visit * Reason Comments Dosage Adjustment In Person (Anticoag Cl inic) Diabetes Follow-Up Encounter Details Date Type Department Care Team (Late st Contact Info) Description 04/26/2024 11:30 AM EDT Office Visit Pharmacy, [place] [address] [place] [address] [facility] [address] [place] [address] Type 2 diabetes mellitus with hemoglobin A1c goal of less than 7.0% ([facility])*; Type 2 diabetes mellitus with complication, with long-term current use of insulin ([facility]) Allergies Active Allergy Reactions Criticality Noted Date [...] Informant: Patient, Reported on 10/21/2022 Dexcom G6 Firer Automatic Stoker DeviceIndications:D M type 2, not at goal [...] the morning. 180 Tablet 1 3 Active Empagliflozin 25 MG Oral Tablet [...] MOUTH IN THE MORNING 90 Tablet 3 4 Active documented as of this [...] goal of less than 7.0% 06/05/2020 Old [place] (myocardial infarction) 09/25/2019 Type 2 diabetes mellitus [...] yrs 07/26/2015,03/01/2015,11/29 Pneumococcal Conjugate Vacci ne, 20-valent ([id number]) 07/15/2022 Pneumococcal Polysaccharide PPV23 (Pneumovax) 02/26/2014 Seasonal [...] 11/11/2023 Does the household have a re lar source of income? (Household - for ages [...] encounter Progress Notes * Lenka Magana, [facility] - 04/26/2024 11:28 AM EDT Images from the original note [...] eGFR > 90 mL/min as of 01/26/24 Medication Injection Site: Abdomen Lifestyle: Diet: unchanged Glucose Review/SMBG: Readings obtained from patient device Hypoglycemia: Does your blood sugar go below 70 mg/dL? No Hyperglycemia symptoms present: None reported Recent Labs Units 01/24/24 1136 07/20/23 1118 01/13/23 1059 HEMOGLOBIN A1C - [facility] % 10.7* 10.9* -- HEMOGLOBIN A1C POCT - [facility] % -- -- 7.8* Recent Labs Units 01/24/24 1136 11/13/22 1540 05/08/22 0929 ESTIMATED GLOMERULAR FILTRATION RATE - [facility] mL/min >90 >90 >90 CREATININE - [facility] mg/dL 0.9 0.8 0.8 HYPERTENSION: Patient on ACEi/ARB: yes BP Readings from Last 3 Encounters: 03/28/24 138/88 01/26/24 122/72 10/29/23 112/62 Blood pressure at goal: yes HYPERLIPIDEMIA: Patient is taking moderate or high intensity statin: no HEALTH MAINTENANCE REVIEW: Health Maintenance Due Topic Date Due Diabetic Foot Exam 11/20/2023 Colorectal Cancer Screening 01/11/2024 DTaP,Tdap,and Td Vaccines (2 - Td or Tdap) 02/27/2024 ASSESSMENT & PLAN: ICD-10-CM 1. Type 2 diabetes mellitus with hemoglobin A1c goal of less than 7.0% (HCC) E11.9 2. Type 2 diabetes mellitus with complication, with long-term current use of insulin (HCC) E11.8 Z79.4 Considerations: - hx of noncompliance - takes all medications in the morning - hx of pancreatitis in 2015 and 2019 - allergy to lantus (glargine) - does not want to take any higher of a metformin dose BG Readings - Blood sugars uncontrolled. Today in clinic his sugar was "HIGH" on reader. Medications - Reviewed current regimen, patient is not adherent to regimen. Taking varying amounts of insulin. Advised at least 15 units of novolog when he gets out to his car. Otherwise, MTM will not advise of any increases in basal or bolus insulin. Adherence is questionable. Diet, Exercise, Lifestyle - lifestyle continues to be driving force for poorly controlled BG. Pt admits to having a gallon of milk next to his bed that he drinks and also eating an entire box of captain crunch last evening. Patient is agreeable to SMBG dexcom g6) daily. Patient aware to contact clinic if any hypoglycemia before next visit. MEDICATION CHANGES: no change Diabetic Medications: Toujeo Max (U300) 100 units [...] Exam: Up to Date Annual Wellness Visit: Up to Date FOLLOW UP: Return to clinic in 12 weeks 08/03/2024 Lenka Magana [facility] Clinical Pharmacist - Attendant [facility] 04/26/2024, 11:28 AM documented in this encounter Plan of Treatment Upcoming Encounters Date Type Department Care Team (Late st Contact Info) Description 07/11/2024 10:20 AM EDT Office Visit Nutrition & Weight Management, [facility] [address] [address] Gracia Mcclendon PA-C [address] [address] 08/01/2024 10:00 AM EDT Office Visit Family [facility] [address] [place] [address] Willam Fofana, DO 200 [place] [address] 08/03/2024 7:30 AM EDT Office Visit Pharmacy, [place] [address] [place] [address] [facility] [address] [place] [address] 09/12/2024 9:30 AM EST Hospital Encounter ENDO OSS, Endoscopy Room [facility] [address] [facility] [place] [phone] Kandice Arevalo MD [address] [place] [address] 09/12/2024 9:30 AM EST - 09/12/2024 10:00 AM EST Surgery ENDO [facility], Endoscopy Room [facility] 132 [facility] [place] [phone] Kandice Arevalo MD [address] [place] [phone] COLONOSCOPY FLEXIBLE PROXIMAL DIAGNOSTIC 02/02/2025 10:15 AM EDT Office Visit [address] [address] Mason Jean-Baptiste MD [address] [place] [phone] Scheduled Procedures Name Priority Associated Diagnoses Date/Ti [...] 05/28/2020, Additional history exists HbA1c 07/25/2024 01/24/2024, 1104/2023, 07/20/2023, Additional history exists Albumin/Creatinine Ratio 08/13/2024 023, 07/20/2023, 06/11/2021, Additional history exists GFR 01/23/2025 01/24/2024, 12/2022, 05/08/2022, Additional history exists Diabetic Eye [...] polyps documented in this encounter Care Teams Manager E Commerce Relationship Specialty Start Date End Date Willam Fofnaa DO [address] [place] [address] PCP - General Family Medicine 04/26/17 documented as of this encounter
--- OUTSIDE RECORDS SUMMARY | 2024-05-09 18:08 | External Medical Summary | Summary of Care ---
Author Name Unknown Organization [facility] Address [address] [facility] [place] [address] Phone [phone] Care Team Providers Care Room Clerk Name Role Phone Willam Fofana DO Primary Care Provider Encounter Details Date Type Department Care Team (Late st Contact Info) Description 03/21/2024 Telephone OR [facility], Operating Room [facility] [address] [facility] [place] [address] Kandice Arevalo MD [address] [facility] [place] [address] Allergies Active Allergy Reactions [...] Informant: Patient, Reported on 10/21/2022 Dexcom G6 Vegetable Cutter DeviceIndications:D M type 2, not at goal [...] long-term current use of insulin ([facility]) INJECT 60 UNITS SUBCUTANEOUSLY WITH BREAKFAST, [...] goal of less than 7.0% 06/05/2020 Old [place] (myocardial infarction) 09/25/2019 Type 2 diabetes mellitus [...] yrs 07/26/2015,03/01/2015,11/29 Pneumococcal Conjugate Vacci ne, 20-valent ([id number]) 07/15/2022 Pneumococcal Polysaccharide PPV23 (Pneumovax) 02/26/2014 Seasonal [...] encounter Miscellaneous Notes * Telephone Encounter - Vilma Royal OSA - 03/24/2024 3:44 PM EDT Called pt and bert'd to 09/12 at [facility] * Telephone Encounter - Abi Ardon RN - 03/24/2024 9:30 AM EDT Spoke with pt. He is currently in hospital at [facility] for uncontrolled DM. Pt will need to postpone colonoscopy that was scheduled for 03/29/2024 until better glucose control. He is aware and awaiting call to reschedule * Telephone Encounter - Abi Ardon RN - 03/21/2024 9:08 AM EDT Attempted to call for pre anesthesia evaluation. No answer. Voice mail left requesting return call documented in this encounter Plan of Treatment Upcoming Encounters Date Type Department Care Team (Late st Contact Info) Description 03/28/2024 11:00 AM EDT [facility] [place] [place] [address] [place] [address] Willam Fofana, DO [address] [place], [place] [address] 04/07/2024 2:30 PM EDT Office Visit Pharmacy, [place] [address] [facility] [place] [address] [place] [facility] [address] [facility] [address] 07/11/2024 10:20 AM EDT Office Visit Nutrition & Weight Management, [facility] [address] [facility] [place] [address] Gracia Mcclendon [facility]C [facility] [place] [address] 08/01/2024 10:00 AM EDT Office Visit Family Practice [facility] [address] [place] [address] Willam Fofana, 200 [facility] [place] [address] 09/12/2024 9:30 AM EST Hospital Encounter ENDO [facility], Endoscopy Room [facility] [address] [facility] [phone] Kandice Arevalo MD [address] [place] [address] 09/12/2024 9:30 AM EST - 09/12/2024 10:00 AM EST Surgery ENDO O[facility], Endoscopy Room [facility] [address] [facility] [phone] Kandice Arevalo MD [address] [place] [address] COLONOSCOPY FLEXIBLE PROXIMAL DIAGNOSTIC 02/02/2025 10:15 AM EDT Office Visit [address] [address] Mason Jean-Baptiste MD [address] [place] [address] Scheduled Procedures Name Priority Associated Diagnoses Date/Ti [...] filedocumented as of this encounter Care Teams Room Clerk Relationship Specialty Start Date End Date Willam Fofana DO [address] [place] [address] PCP - General Family Medicine 04/26/17 documented as of this encounter
[2024-05-09 19:30] LABS: Amphetamines+Metham, Urine Pos (Neg); Barbiturates, Urine Neg (Neg); Benzodiazepine, Urine Neg (Neg); Cocaine, Urine Neg (Neg); Fentanyl, Urine Neg (Neg); MDMA (Ecstacy), Urine Neg (Neg); Marijuana, Urine Neg (Neg); Methadone, Urine Neg (Neg); Opiate, Urine Neg (Neg); Phencyclidine, Urine Neg (Neg)
[2024-05-09] MEDS ORDERED: POLYETHYLENE (MIRALAX) 17 GM PACK PO PRN (19:32)
[2024-05-09] MEDS ORDERED: ACETAMINOPHEN 325 MG TAB PO PRN (19:32)
[2024-05-09] MEDS ORDERED: ONDANSETRON INJ 2 MG/ML 2 ML VIAL IV PRN (19:32)
[2024-05-09] MEDS: METOPROLOL SUCC 50MG EXT REL TAB PO SCH (21:20)
[2024-05-09] MEDS: INSULIN ASPART PER UNIT CHARGE SC SCH (21:21)
[2024-05-09] MEDS: INSULIN HUMAN NPH SC SCH (21:24)
[2024-05-10] MEDS: INSULIN ASPART PER UNIT CHARGE SC SCH (00:32)
[2024-05-10 07:46] LABS: Hematocrit (blood only) 48.2 % (42.0-52.0); Mean Corpuscular Hemoglobin 27.8 pg (25.0-34.0); Mean Corpuscular Hgb Conc 33.2 g/dL (32.0-36.0); Mean Corpuscular Volume 83.8 fL (80.0-100.0); Mean Platelet Volume 9.2 fL (9.4-12.4); Platelet Count 297 K/uL (130-400); RDW Coefficient of Variation 14.5 % (11.5-14.5); Red Blood Count 5.75 M/uL (4.70-6.10); White Blood Count 11.68 K/ul (4.8-10.8)
[2024-05-10] MEDS: CEROVITE ADV FORMULA TAB PO SCH (08:07)
[2024-05-10] MEDS: buPROPion XL 300 MG TABCR PO SCH (08:07)
[2024-05-10] MEDS: TAMSULOSIN HCL 0.4 MG CAP PO SCH (08:07)
[2024-05-10] MEDS: lisinopril 20 MG TAB PO SCH (08:07)
[2024-05-10] MEDS: SERTRALINE HCL 100 MG TABLET PO SCH (08:07)
[2024-05-10] MEDS: ASPIRIN 81 MG ECTAB PO SCH (08:08)
[2024-05-10] MEDS: ASCORBIC ACID 500 MG TAB PO SCH (08:08)
[2024-05-10] MEDS: SPIRONOLACTONE 25 MG TAB PO SCH (08:08)
[2024-05-10 08:18] LABS: Estimated Average Glucose 252 mg/dl; Hemoglobin A1C 10.4 % (4.5-5.6)
[2024-05-10] MEDS: INSULIN HUMAN NPH SC SCH ×2 (08:19→17:25)
[2024-05-10 08:29] LABS: BUN Creatinine Ratio 25.4 (10-20); Calcium 8.4 mg/dl (8.6-10.3); Creatinine Clr Calc Pharmacy 157.5 ml/min; Est GFR (African American) 120.2 ml/min; Est GFR (Non-African American) 103.7 ml/min; Potassium 4.4 mmol/L (3.5-5.1)
--- NOTE | 2024-05-10 09:56 | Pharmacy Report ---
Pharmacy Glycemic Short Note 2 - Date of Service May 10, 2024 - Glycemic Short BSG Results (Last 24 hours): 05/09/24 05/09/24 05/09/24 13:05 18:52 20:00 Glucose 285 H POC Glucose 196 H 235 H 05/09/24 05/10/24 05/10/24 23:58 03:58 07:08 Glucose 146 H POC Glucose 162 H 141 H 05/10/24 07:38 Glucose POC Glucose 163 H OUTPATIENT ANTIDIABETIC REGIMEN: * please note that patient is reportedly non-adherent w/ outpatient regimen * Ordered outpatient regimen: * Toujeo 100 units BID * Novolog 60 units w/ breakfast, 20 units w/ lunch, and 60 units w/ dinner * Metformin ER 750 mg - 2 tablets PO daily * Jardiance 25 mg PO daily * HbA1c: 10.4% (05/10/24) ASSESSMENT: * CF is a 63 year old male w/ poorly controlled T2DM well known to pharmacy glycemic service due to several past admissions w/ pharmacy consultation * Patient presented to ED w/ generalized weakness and a reported inability to care for himself over past few days * Blood sugars elevated on presentation (285 mg/dL) * Diet ordered, no obvious glycemic stressors at this time * Reported ADR to Lantus -will use NPH while inpatient * Using past glycemic data to guide initial insulin dosing PLAN FOR INPATIENT GLYCEMIC CONTROL: * Hold outpatient oral diabetes medications * Basal insulin * NPH 30 units SC w/ breakfast * NPH 0-10 units SC w/ dinner (see EHR for details) * Bolus insulin * NovoLog per scale ACHS or Q6hrs while NPO * Goal Range: Low 110 mg/dL - High 140 mg/dL * Correction Factor: 15 mg/dL/unit * Nutritional / Prandial insulin per carb ratio of 1 unit per 5 grams CHO consumed
--- NOTE | 2024-05-10 14:37 | Hospitalist Progress Note ---
Date of Service May 10, 2024 Assessment & Plan (1) Unable to care for self: (2) Generalized muscle weakness: (3) Morbid obesity with BMI of 40.0-44.9, adult: (4) Peripheral neuropathy: Plan: This is a 63yo M with a PMH of poorly controlled DM II, HTN, PVD, BPH, depression and other medical problems listed below who presents with generalized weakness and inability to care for himself at home over the past few days. Worsening bilateral lower extremity tingling/numbing sensation in setting of uncontrolled DM II Vitamin B2 will level of 319 PG/mL HbA1c 10.4% Continue gabapentin 200 mg 3 times daily Continue PT OT while inpatient (5) Uncontrolled type 2 diabetes mellitus with hyperglycemia: Plan: A1c 10.4% History of noncompliance Hold home agents SSI while in-patient Glycemic consult placed (lantus allergy listed?) BSG AC HS (6) BPH (benign prostatic hyperplasia): Plan: Continue flomax, bladder scan PRN (7) Anxiety and depression: Plan: Continue Zoloft, bupropion (8) ALEJANDRA (obstructive sleep apnea): Plan: Noncompliant with CPAP (9) Hypertension: Plan: Continue Toprol, lisinopril (10) Nonischemic cardiomyopathy: Plan: Echo 04/03 with EF: 55-60%, LVH, AV sclerosis States he has been taking home medications including diuretics, although h/o noncompliance Continue spironolactone 25mg, lasix 60mg daily, Toprol 50 BID Low sodium diet (11) H/O drug abuse: Plan: History of smoking and orally ingesting methamphetamines in the past Reports last IV drug use was approximately 10 years ago Urine drug screen pending (12) Peripheral vascular disease: Plan: S/p ablation right leg 12/2022 Continue aspirin DVT Ppx: SQ lovenox Code status: DNR/DNI PCP: John Fofana Dispo: admitted to med/surg Please note the above document was generated using voice recognition software. It may contain grammatical, syntax or spelling errors. Any formal questions or concerns about the content, text or information contained within the body of this dictation should be directly addressed to the provider for clarification Admission and Anticipated Discharge Date Admission Date: May 09, 2024 Subjective Patient seen and examined at bedside. He reports that he is feeling slightly better compared to yesterday He is able to ambulate with the help of a walker Reports that the neuropathic pain is slightly improved Review of Systems Review of Systems: All systems reviewed & are unremarkable except as noted in Subjective Physical Exam Physical Exam: Constitutional: Awake, alert oriented x 3; not in distress. Respiratory: Bilateral vesicular breath sound Cardiovascular: RRR, no murmur, no edema Vessels: no JVD or carotid bruit Chest: normal inspection of chest Skin: no rashes, warm and dry normal turgor Neurologic: PERRL, EOMI, accommodation nl, no face palsy, no dysarthria CN's II- XI intact bilaterally. Bilateral lower extremity strength4/5, sensation intact, joint sensation intact Psychiatric: A+Ox3, euthymic affect Results & Data Results & Data Vital Signs (Past 12 Hours) Vital Signs Temp Pulse Resp BP Pulse Ox O2 Del Method 05/10/24 07:30 Room Air 05/10/24 07:08 36.4 C L 84 16 133/77 93 Room Air (9) Hypertension Hypertension type: primary hypertension Qualified Code(s): I10 - Essential (primary) hypertension
[2024-05-10] MEDS: CYANOCOBALAMIN (B-12) 500 MCG TABLET PO SCH (15:13)
--- NOTE | 2024-05-10 22:24 | Electrocardiogram Report ---
Test Reason : Blood Pressure : / mmHG Vent. Rate : 088 BPM Atrial Rate : 088 BPM P-R Int : 196 ms QRS Dur : 078 ms QT Int : 366 ms P-R-T Axes : 000 083 077 degrees QTc Int : 442 ms Normal sinus rhythm Low voltage QRS Nonspecific T wave abnormality Abnormal ECG When compared with ECG of 22-MAR-2024 08:06, Premature atrial complexes are no longer Present Confirmed by Iftikhar Burns ([id number]) on 05/10/2024 10:23:45 PM Referred By: REFERRED SELF Confirmed By:Iftikhar Burns
[2024-05-11 07:06] LABS: Hematocrit (blood only) 48.5 % (42.0-52.0); Mean Corpuscular Hemoglobin 27.6 pg (25.0-34.0); Mean Corpuscular Volume 83.6 fL (80.0-100.0); Mean Platelet Volume 9.4 fL (9.4-12.4); Platelet Count 257 K/uL (130-400); RDW Coefficient of Variation 14.1 % (11.5-14.5); RDW Standard Deviation 42.6 fL (36.4-46.3)
[2024-05-11 07:33] LABS: BUN Creatinine Ratio 28.8 (10-20); Calcium 8.6 mg/dl (8.6-10.3); Creatinine Clr Calc Pharmacy 178.9 ml/min; Est GFR (African American) 126.6 ml/min; Est GFR (Non-African American) 109.3 ml/min; Potassium 4.2 mmol/L (3.5-5.1)
--- NOTE | 2024-05-11 09:22 | Hospitalist Progress Note ---
Date of Service May 11, 2024 Assessment & Plan (1) Unable to care for self: (2) Generalized muscle weakness: (3) Morbid obesity with BMI of 40.0-44.9, adult: (4) Peripheral neuropathy: Plan: This is a 63yo M with a PMH of poorly controlled DM II, HTN, PVD, BPH, depression and other medical problems listed below who presents with generalized weakness and inability to care for himself at home over the past few days. Worsening bilateral lower extremity tingling/numbing sensation in setting of uncontrolled DM II Vitamin B12 level of 319 PG/mL HbA1c 10.4% Started on gabapentin 200 mg 3 times daily, continue at discharge PT OT recommended rehab; awaiting placement (5) Uncontrolled type 2 diabetes mellitus with hyperglycemia: Plan: A1c 10.4% History of noncompliance Hold home agents SSI while in-patient Glycemic consult placed (lantus allergy listed?) BSG AC HS (6) BPH (benign prostatic hyperplasia): Plan: Continue flomax, bladder scan PRN (7) Anxiety and depression: Plan: Continue Zoloft, bupropion (8) ALEJANDRA (obstructive sleep apnea): Plan: Noncompliant with CPAP (9) Hypertension: Plan: Continue Toprol, lisinopril (10) Nonischemic cardiomyopathy: Plan: Echo 04/03 with EF: 55-60%, LVH, AV sclerosis States he has been taking home medications including diuretics, although h/o noncompliance Continue spironolactone 25mg, lasix 60mg daily, Toprol 50 BID Low sodium diet (11) H/O drug abuse: Plan: History of smoking and orally ingesting methamphetamines in the past Reports last IV drug use was approximately 10 years ago Urine drug screen pending (12) Peripheral vascular disease: Plan: S/p ablation right leg 12/2022 Continue aspirin DVT Ppx: SQ lovenox Code status: DNR/DNI PCP: John Fofana Dispo: admitted to med/surg Please note the above document was generated using voice recognition software. It may contain grammatical, syntax or spelling errors. Any formal questions or concerns about the content, text or information contained within the body of this dictation should be directly addressed to the provider for clarification Admission and Anticipated Discharge Date Admission Date: May 09, 2024 Subjective Patient seen and examined at bedside He reports that he is feeling better. He is able to ambulate with the help of a walker Hemodynamics are stable; no significant overnight events Review of Systems Review of Systems: All systems reviewed & are unremarkable except as noted in Subjective Physical Exam Physical Exam: Constitutional: Awake, alert oriented x 3; not in distress. Respiratory: Bilateral vesicular breath sound Cardiovascular: RRR, no murmur, no edema Vessels: no JVD or carotid bruit Chest: normal inspection of chest Skin: no rashes, warm and dry normal turgor Neurologic: PERRL, EOMI, accommodation nl, no face palsy, no dysarthria CN's II- XI intact bilaterally. Bilateral lower extremity strength4/5, sensation intact, joint sensation intact Psychiatric: A+Ox3, euthymic affect Results & Data Results & Data Vital Signs (Past 12 Hours) Vital Signs Temp Pulse Resp BP Pulse Ox O2 Del Method 05/11/24 07:28 36.5 C 79 20 120/75 95 Room Air (9) Hypertension Hypertension type: primary hypertension Qualified Code(s): I10 - Essential (primary) hypertension
[2024-05-11] MEDS: INSULIN HUMAN NPH SC SCH (17:33)
--- NOTE | 2024-05-12 10:22 | Hospitalist Progress Note ---
Date of Service May 12, 2024 Assessment & Plan (1) Unable to care for self: (2) Generalized muscle weakness: (3) Morbid obesity with BMI of 40.0-44.9, adult: (4) Peripheral neuropathy: Plan: This is a 63yo M with a PMH of poorly controlled DM II, HTN, PVD, BPH, depression and other medical problems listed below who presents with generalized weakness and inability to care for himself at home over the past few days. Worsening bilateral lower extremity tingling/numbing sensation in setting of uncontrolled DM II Vitamin B12 level of 319 PG/mL HbA1c 10.4% Started on gabapentin 200 mg 3 times daily, continue at discharge PT OT recommended rehab; awaiting placement (5) Uncontrolled type 2 diabetes mellitus with hyperglycemia: Plan: A1c 10.4% History of noncompliance Hold home agents SSI while in-patient Glycemic consult placed (lantus allergy listed?) BSG AC HS (6) BPH (benign prostatic hyperplasia): Plan: Continue flomax, bladder scan PRN (7) Anxiety and depression: Plan: Continue Zoloft, bupropion (8) ALEJANDRA (obstructive sleep apnea): Plan: Noncompliant with CPAP (9) Hypertension: Plan: Continue Toprol, lisinopril (10) Nonischemic cardiomyopathy: Plan: Echo 04/03 with EF: 55-60%, LVH, AV sclerosis States he has been taking home medications including diuretics, although h/o noncompliance Continue spironolactone 25mg, lasix 60mg daily, Toprol 50 BID Low sodium diet (11) H/O drug abuse: Plan: History of smoking and orally ingesting methamphetamines in the past Reports last IV drug use was approximately 10 years ago Urine drug screen pending (12) Peripheral vascular disease: Plan: S/p ablation right leg 12/2022 Continue aspirin Discussed plan of care with patient's sister at bedside. DVT Ppx: SQ lovenox Code status: DNR/DNI PCP: John Fofana Dispo: admitted to med/surg . Awaiting rehab Please note the above document was generated using voice recognition software. It may contain grammatical, syntax or spelling errors. Any formal questions or concerns about the content, text or information contained within the body of this dictation should be directly addressed to the provider for clarification Admission and Anticipated Discharge Date Admission Date: May 09, 2024 Subjective Patient seen and examined at bedside. Comfortable; not in distress. Denies fever, chills, chest pain, shortness of breath, abdominal pain or urinary symptoms. No significant overnight events Review of Systems Review of Systems: All systems reviewed & are unremarkable except as noted in Subjective Physical Exam Physical Exam: Constitutional: Awake, alert oriented x 3; not in distress. Respiratory: Bilateral vesicular breath sound Cardiovascular: RRR, no murmur, no edema Vessels: no JVD or carotid bruit Chest: normal inspection of chest Skin: no rashes, warm and dry normal turgor Neurologic: PERRL, EOMI, accommodation nl, no face palsy, no dysarthria CN's II- XI intact bilaterally. Bilateral lower extremity strength4/5, sensation intact, joint sensation intact Psychiatric: A+Ox3, euthymic affect Results & Data Results & Data Vital Signs (Past 12 Hours) Vital Signs Temp Pulse Resp BP Pulse Ox O2 Del Method 05/12/24 08:27 Room Air 05/12/24 07:17 36.4 C L 63 17 127/74 93 Room Air (9) Hypertension Hypertension type: primary hypertension Qualified Code(s): I10 - Essential (primary) hypertension
--- NOTE | 2024-05-12 15:33 | Discharge Summary ---
Date of Service May 12, 2024 Admission HPI Per Admitting Provider This is a 63yo M with a PMH of poorly controlled DM II, HTN, PVD, BPH, depression and other medical problems listed below who presents with generalized weakness and inability to care for himself at home over the past few days. Patient lives alone and ambulates independently at baseline. Sleeps in a recliner. Over the past few days, has had worsening tingling and discomfort in lower extremities that have made him hesitant to ambulate. Endorses decreased energy over the past few days and did not trust himself to drive to hospital so called EMS. Blood sugar has been ranging in 200s per sensor. States he has been compliant with medications. No F/C, lightheadedness, CP, SOB, N/V, abd pain, dysuria, diarrhea or constipation. Admission Exam Per Admitting Provider Constitutional: Awake, alert oriented x 3; not in distress. Respiratory: Bilateral vesicular breath sound Cardiovascular: RRR, no murmur, no edema Vessels: no JVD or carotid bruit Chest: normal inspection of chest Skin: no rashes, warm and dry normal turgor Neurologic: PERRL, EOMI, accommodation nl, no face palsy, no dysarthria CN's II- XI intact bilaterally. Bilateral lower extremity strength4/5, sensation intact, joint sensation intact Psychiatric: A+Ox3, euthymic affect Principal Diagnosis Peripheral diabetic neuropathy Discharge Exam Constitutional: Awake, alert oriented x 3; not in distress. Respiratory: Bilateral vesicular breath sound Cardiovascular: RRR, no murmur, no edema Vessels: no JVD or carotid bruit Chest: normal inspection of chest Skin: no rashes, warm and dry normal turgor Neurologic: PERRL, EOMI, accommodation nl, no face palsy, no dysarthria CN's II- XI intact bilaterally. Bilateral lower extremity strength4/5, sensation intact, joint sensation intact Psychiatric: A+Ox3, euthymic affect Discharge Data Allergies Allergy/AdvReac Type Severity Reaction Status Date / Time shellfish derived Allergy Severe Swelling Verified 05/09/24 15:21 amoxicillin Allergy Intermediate HIVES Verified 05/09/24 15:21 clavulanic acid Allergy Intermediate HIVES Verified 05/09/24 15:21 permethrin Allergy Intermediate swelling Verified 05/09/24 15:21 shrimp Allergy Intermediate SWELLS Verified 05/09/24 15:21 sulfamethoxazole Allergy Unknown CAN'T Verified 05/09/24 15:21 [From Bactrim] REMEMBER trimethoprim [From Bactrim] Allergy Unknown CAN'T Verified 05/09/24 15:21 REMEMBER insulin glargine AdvReac Severe CHF Verified 05/09/24 15:21 [From Lantus U-100 Insulin] Consultations 05/09/24 15:03 ED Decision to Admit Stat Ordered Studies 05/09/24 13:08 CT head/brain wo con Stat Diabetes Follow up Diabetes Follow-up Needed for HgbA1c >9% Hospital Course (1) Unable to care for self: (2) Generalized muscle weakness: (3) Peripheral neuropathy: (4) Uncontrolled type 2 diabetes mellitus with hyperglycemia: This is a 63yo M with a PMH of poorly controlled DM II, HTN, PVD, BPH, depression and other medical problems listed below who presents with generalized weakness and inability to care for himself at home over the past few days. Worsening bilateral lower extremity tingling/numbing sensation in setting of uncontrolled DM II Vitamin B12 level of 319 PG/mL HbA1c 10.4% Started on gabapentin While patient was hospitalized. Patient was recommended to go to rehab by physical and Occupational Therapy. However, patient wanted to go home with his sister. Her sister also reported that she will be with him at home. Rolling walker prescription provided at discharge. Also provided a prescription for gabapentin and vitamin B12 supplement. Please note the above document was generated using voice recognition software. It may contain grammatical, syntax or spelling errors. Any formal questions or concerns about the content, text or information contained within the body of this dictation should be directly addressed to the provider for clarification Total Time Total Time Spent Total Time Spent (In Minutes): 35 Total Time Includes: Examination of the Patient, Discharge Planning, Medication Reconciliation, Communication With Other Providers and Other Discharge Plan Discharge Items Patient Disposition: Home - Self-Care Reason For Visit: GENERALIZED WEAKNESS, PERIPHERAL NEUROPATHY Discharge Diagnosis: Diabetes induced peripheral neuropathy Activity: Resume your previous activity Non-emergency contact: Primary Care Provider Call non-emergency contact if: you have any medication questions and your symptoms worsen Follow-up/Referrals: Willam Fofana, [Primary Care Provider] - Diet: Carb Consistent or DM2 Addtl Attending Provider Instructions: You were admitted to the hospital due to peripheral neuropathy likely secondary to diabetes. You are prescribed gabapentin 300 mg 3 times a day as well as vitamin B12 supplement to be taken once a day. Please follow-up with your primary care doctor after discharge Pending Studies at Discharge: No Stand-Alone Forms: My [facility], Smoking Cessation Medications and DC Order Prescriptions: New gabapentin 300 mg capsule 300 mg PO Q8H Qty: 90 0RF cyanocobalamin (vitamin B-12) 1,000 mcg capsule 1,000 mcg PO DAILY Qty: 30 0RF Continued aspirin 81 mg Tablet,Delayed Release (Dr/Ec) 81 mg PO DAILY insulin aspart U-100 100 unit/mL (3 mL) insulin pen 60 unit subcut BIDM Rx Instructions: Patient takes 60 UNITS WITH BREAKFAST, 60 UNITS WITH DINNER bupropion HCl 300 mg tablet extended release 24 hr 300 mg PO DAILY Jardiance 25 mg tablet 25 mg PO DAILY ascorbic acid (vitamin C) [Vitamin C] 500 mg Tablet 500 mg PO DAILY Multiple Vitamin-Minerals Tablet 1 tab PO DAILY tamsulosin 0.4 mg capsule 0.4 mg PO DAILY insulin glargine U-300 conc [Toujeo Max U-300 SoloStar] 300 unit/mL (3 mL) insulin pen 100 unit SUBCUT BID lisinopril 20 mg tablet 20 mg PO QAM sertraline 100 mg tablet 100 mg PO QAM spironolactone 25 mg Tablet 25 mg PO DAILY Discharge Orders: Discharge Order (Routine); Ordered 05/12/24 Ordered By: Sim Mclaughlin Admission Data Admit Date/Time: 05/09/24 16:28 Attending Provider: Sim Mclaughlin Admit Provider: Sim Mclaughlin Primary Care Provider: Willam Fofana Other Providers: Sim Mclaughlin; [facility]
[2024-05-13 06:28] LABS: Amphetamine Urine, Confirm NEGATIVE ng/mL (<250); Methamphetamine, Ur Confirm 1480 ng/mL (<250)
== END 2024-05-12 16:56 | disposition home or self-care (01) | DRG 74 ==
LOC: ED 12:47 → 3N 16:28

== ENCOUNTER 2024-08-05 15:54 | Inpatient (IN) ==
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
--- OUTSIDE RECORDS SUMMARY | 2024-08-05 16:01 | External Medical Summary | Summary of Care ---
Author Name Unknown Organization [facility] Address [address] [place] [address] Phone [phone] Care Team Providers Care Audit Spec Name Role Phone Willam Fofana DO Primary Care Provider [phone] Reason for Visit * Reason Comments Joint Pain Encounter Details Date Type Department Care Team (Late st Contact Info) Description 07/13/2024 1:20 PM EDT Office Visit General Internal Medicine [facility] [place] [address] [place] [address] Payton Rao MD [address] [place] [address] Hip pain, left*; Type 2 diabetes mellitus with hemoglobin A1c goal of less than 7.0% (HCC); Type 2 diabetes mellitus with complication, with long-term current use of insulin (HCC); Old ID (myocardial infarction); Moderate episode of recurrent major depressive disorder (HCC); HTN, goal below 130/80; Chronic hepatitis C without hepatic coma (HCC); Benign prostatic hyperplasia without lower urinary tract symptoms Allergies Active Allergy Reactions Criticality Noted Date Comments Amoxicillin-Pot Clavulanate Hives High 11/26/19 12 Sulfamethoxazole-Trimethopri m 02/07/2016 Insulin Glargine 01/21/2016 States he went in to CHF after one shot of insulin Other reaction(s): CHF Permethrin 04/27/2013 Shrimp Flavor 04/27/2013 documented as of this encounter (statuses as of 07/21/2024) Medications Medication Sig Dispensed Refills Start Date [...] goal of less than 7.0% ([facility]) Inject 100 Units under the skin in the morning and 100 Units before bedtime. 60 mL 3 4 Active NovoLOG FlexPen ReliOn 100 UNIT/ML Subcutaneous Solution Pen-injector (insulin aspart)Indications :Type 2 diabetes mellitus with complication, with long-term current use of insulin ([facility]) INJECT 60 UNITS SUBCUTANEOUSLY WITH BREAKFAST, 20 units with lunch AND 60 WITH SUPPER 130 mL 1 4 Active Additional Information Patient taking differently: INJECT 60 UNITS SUBCUTANEOUSLY WITH BREAKFAST AND 60 WITH SUPPER, Reported on 03/27/2024 buPROPion HCl ER (XL) 300 MG Oral Tablet Extended Release 24 Hour (Wellbutrin XL)Indications:Mod erate episode of recurrent major depressive disorder ([facility]) TAKE 1 TABLET BY MOUTH IN THE MORNING 90 Tablet 3 4 Active Jardiance 25 MG Oral Tablet (Empagliflozin)Ind ications:Type 2 diabetes mellitus with hemoglobin A1c goal of less than 7.0% ([facility]) TAKE 1 TABLET BY MOUTH IN THE [...] (Glucophage XR)Indications:Typ e 2 diabetes mellitus with diabetic neuropathy, with long-term current use of insulin ([facility]) Take 2 Tablets by mouth in the morning. 180 Tablet 3 4 Active tiZANidine HCl 4 MG Oral Tablet (Zanaflex)Indicati ons:Acute left-sided low back pain without sciatica Take 1 Tablet by mouth every 8 hours as needed for Muscle spasms. 30 Tablet 4 Active Albuterol Sulfate HFA 108 (90 Base) MCG/ACT Inhalation Aerosol SolutionIndication s:Wheezing Inhale 2 Puffs by mouth every 4 hours as needed for Wheezing. 18 g 5 4 Active Arnuity Ellipta 100 MCG/ACT Inhalation Aerosol Powder Breath Activated (fluticasone Furoate) Inhale 1 Puff by mouth in the morning. 30 Each 5 4 Active Dexcom G6 [employer] Plant Operations Engineer DeviceIndications: DM type 2, not at goal ([facility]) Use as directed. E11.9 1 Each 4 Active Dexcom G6 SensorIndications: DM type 2, not at goal (HCC) Use as directed. Change every 10 days 9 Each 3 4 Active Dexcom G6 TransmitterIndicat ions:DM type 2, not at goal (HCC) Use as directed. Change every 90 days E11.9 1 Each 3 4 Active Nitroglycerin 0.4 MG Sublingual Tablet Sublingual (Nitrostat)Indicat ions:Inferior myocardial infarction (HCC) Place 1 Tablet under the tongue as needed for Pain, Chest. May repeat 3 times. If chest pain continues, call 911. 25 Tablet 11 4 Active Diclofenac Sodium 3 % External GelIndications:Hip pain, left Apply topically to affected area 2 times a day. Apply to left hip 100 g 1 4 Active Diclofenac Sodium 75 MG Oral Tablet Delayed Release (Voltaren)Indicati ons:Acute left-sided low back pain without sciatica Take 1 Tablet by mouth 2 times a day as needed (Pain). With food. 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/11 Overview: HIV negative Non-ischemic cardiomyopathy 02/26/2014 HTN, goal below 130/80 02/26/2014 History of heroin abuse 02/26/2014 Hepatitis C documented as of this encounter (statuses as of 07/21/2024) Resolved Problems Problem Noted Date Diagnosed Date Resolved Date Abdominal hernia without obs truction and without gangrene 10/09/2022 10/23/2022 H/O TB (tuberculosis) 10/09/20222021 Diabetic ulcer of toe of rig ht foot associated with type 2 diabetes mellitus, limited to breakdown of skin 10/09/2022 10/23/2022 Positive blood culture 10/09/202207/20 Traction detachment of retina, right 01/12/2022 01/26/2024 Major depressive disorder with single episode 01/13/2010/23/2022 Morbid obesity due to excess calories 10/21/2021 [...] as of this encounter (statuses as of 07/21/2024) Immunizations Name Administration Dates Next Due COVID-19 mRNA, LNP-s, No Pre serve, 2-Dose Series ([employer]) 09/12/2021,12/18/2020,11/27/2020 Hepatitis B, 20+ yrs 07/26/2015,03/01/2015,11/29 Pneumococcal Conjugate Vacci ne, 20-valent ([id number]) 07/15/2022 Pneumococcal Polysaccharide PPV23 (Pneumovax) 02/26/2014 Seasonal Influenza Vac., MDV , IM, 0.5 mL (Fluzone) 07/04/2014 Seasonal Influenza, PF, 6 M & above, IM , (FluLaval or Fluzone) 07/06/2023,07/15/2022,06/25/2021,07/12,06/19/2019,07/04/2018,07/13/2017 Seasonal Influenza, Quadriva lent, No Preserve, IM 08/11/2016,07/26/2015 TDAP (age 10 and older)(Boostrix) 02/26/2014 Zoster [...] Sign Reading Time Taken Comments Blood Pressure 102/70 07/13/2024 1:46 PM EDT Pulse 87 07/13/2024 1:46 PM EDT Temperature 35.9 C (96.7 F) 07/13/2024 1:46 PM ED T Respiratory Rate - - Oxygen Saturation 95% 07/13/2024 1:46 PM EDT Inhaled Oxygen Concentration - - Weight 130.1 kg (286 lb 14.4 oz) 07/13/2024 1:46 PM EDT Height - - Body Mass Index 42.69 07/11/2024 10:13 AM EDT documented in this encounter Progress Notes * Payton Rao MD - 07/13/2024 1:51 PM EDT Images from the original note were not included. History of Present Illness Facundo Botello is a 64 year old male that presents for Joint Pain Lower Extremity Pain The pain is present in the left hip. This is a new problem. The current episode started 1 to 4 weeks ago (2 weeks). The quality of the pain is described as dull, pounding and aching. The pain is at aseverity of 4/10. Associated symptoms include stiffness. Pertinent negatives include no inability to bear weight, joint locking, joint swelling, numbness or tingling. The symptoms are aggravated by activity and standing. He has tried acetaminophen and cold for the symptoms. The treatment provided no relief. His past medical history is significant for diabetes and osteoarthritis. Physical Exam Vitals: 07/13/24 1346 Temp: 35.9 C (96.7 F) Pulse: 87 SpO2: 95% BP: 102/70 Physical Exam Constitutional: General: He is not in acute distress. Appearance: Normal appearance. He is normal weight. He is not ill-appearing. Cardiovascular: Rate and Rhythm: Normal rate and regular rhythm. Heart sounds: No murmur heard. Musculoskeletal: General: Tenderness (Left hip laterally and in the groin) present. No swelling or deformity. Cervical back: No rigidity or tenderness. Right lower leg: No edema. Left lower leg: No edema. Skin: General: Skin is warm. Findings: No lesion or rash. Neurological: Mental Status: He is alert. I have reviewed the following results: Assessment and Plan Hip pain, left Heat Avoid crossing legs, taking stairs Tylenol 500 mg 1-2 pills every 6 hour as needed for pain ; - XR HIP UNILAT 2-3 VIEWS INCLUDING AP PELVIS; Future - Diclofenac Sodium 3 % External Gel; Apply topically to affected area 2 times a day. Apply to lefthip Type 2 diabetes mellitus with hemoglobin A1c goal of less than 7.0% (HCC) Type 2 diabetes mellitus with complication, with long-term current use of insulin (HCC) Old ID (myocardial infarction) Moderate episode of recurrent major depressive disorder (HCC) HTN, goal below 130/80 Chronic hepatitis C without hepatic coma (HCC) Benign prostatic hyperplasia without lower urinary tract symptoms Wrap-Up Time: I spent a total of 20-29 minutes (exact time 24 mins) on the date of service in preparation, delivery, and documentation of the care provided to Facundo Botello excluding any time spent in the performance of separately billed services. documented in this encounter Nursing Notes * Neris Juarez, MED ASSIST - 07/13/2024 1:43 PM EDT Facundo Botello presents with complaints of: Pain- Located L Hip Pain level 8/10 Type of pain unable to identify Radiating to no Is the pain the same as it began no change What makes the pain better? Nothing What makes the pain worse? ambulating Other symptoms none Any known cause of pain? none Patient denies all other symptoms Onset of symptoms: 2 week(s) ago. documented in this encounter Plan of Treatment Upcoming Encounters Date Type Department Care Team (Latest Contact Info) Description 08/01/2024 10:00 AM EDT Office Visit Family Practice [facility] [address] [facility] [place] [address] Willam Fofana, [address] [facility] [place] [address] 08/03/2024 7:30 AM EDT Office Visit Pharmacy, [place] [address] [place] [address] [facility] [address] [place] [address] 09/12/2024 9:30 AM EST Hospital Encounter ENDO [facility] [address] [facility] [place] [phone] Kandice Arevalo MD [address] [place] [address] 09/12/2024 9:30 AM EST - 09/12/2024 10:00 AM EST Surgery END[facility] [place] [phone] Kandice Arevalo MD [address] [place] [address] COLONOSCOPY FLEXIBLE PROXIMAL DIAGNOSTIC 10/05/2024 11:20 AM EST Nutrition Services Nutrition & Weight Management, [facility] [address] [place] [address] Mayuri Ernst, ANGELAN [address] [place] [address] 02/02/2025 10:15 AM EDT Office Visit [facility] [address] [place] [address] Mason Jean-Baptiste MD [address] [place] [address] Scheduled Procedures Name Priority Associated Diagnoses Date/Ti me COLONOSCOPY FLEXIBLE PROXIMAL DIAGNOSTIC Recall History of colon polyps 09/12/2024 9:30 AM EST Health Maintenance Due Date Last Done Comments Cologuard 2007 Fecal Occult Blood Test 2007 Sigmoidoscopy 2007 Colonoscopy 01/11/2024 01/10/2019, 11/12, 09/25/2014 Colorectal Cancer Screening 01/11/2024 DTap/Tdap Vaccines (2 - Td or Tdap) 02/27/2024 02/26/2014 COVID-19 Vaccine ( season) 2024 11/07/2023, 08/22/2022, 05/07/2022, Additional history exists Influenza Vaccine (FLU shot) (#1) 2024 07/06/2023, 07/15/2022, 06/25/2021, Additional history exists HbA1c 07/25/2024 01/24/2024, 110 04/2023, 07/20/2023, Additional history exists Albumin/Creatinine Ratio 08/13/2024 023, 07/20/2023, 06/11/2021, Additional history exists GFR 01/23/2025 01/24/2024, 020 12/2022, 05/08/2022, Additional history exists Diabetic Eye Exam 02/01/2025 02/02/2024, , 08/31/2023, Additional history exists Depression Monitoring 03/27/2025 03/27/2024 Diabetic Foot Exam 06/30/2025 06/30/2024, 0 11/20/2022, 06/25/2021, Additional history exists Lipid Panel 08/31/2028 08/31/2023, 07/06/2022, 06/11/2021, Additional history exists Hepatitis B Vaccine Completed 07/26/2015, 03/01/2015, 11/29/2014 RETIRED - COLONOSCOPY-EVERY 5 YRS AGES 18-100 Discontinued 01/10/2019, 12/04/2015, 09/25/2014 Zoster Vaccines Completed 03/11/2020, 10/13/2019 Pneumococcal Vaccine: Pediatrics (0 to 5 Years) and At-Risk Patients (6 to 64 Years) Completed 12/22/2023, 07/15/2022, 02/26/2014 HPV (Gardasil) Vaccine Aged Out No lo nger eligible based on patient's age to complete this topic MENINGOCOCCAL (MENACTRA/MENVEO) Aged Out No longer eligible based on patient's age to complete this topic documented as of this encounter Medical Devices Not on filedocumented as of this encounter Results * XR HIP UNILAT 2-3 VIEWS INCLUDING AP PELVIS (07/13/2024 2:38 PM EDT) Anatomical Region Laterality Modality Lower Extremity, Hip, Pelvis Com puted Radiography 07/15/2024 8:25 AM EDT Narrative 07/15/2024 8:22 AM EDT EXAM: LT XR HIP UNILAT 2-3 VIEWS INCLUDING AP PELVIS HISTORY: left hip pain on side - 2 weeks COMPARISON:- FINDINGS / IMPRESSION: No acute displaced fracture or dislocation. Mild degenerative change of the bilateral hips. Procedure Note Orlin Mendoza MD - 07/15/2024 EXAM: LT XR HIP UNILAT 2-3 VIEWS INCLUDING AP PELVIS HISTORY: left hip pain on side - 2 weeks COMPARISON:- FINDINGS / IMPRESSION: No acute displaced fracture or dislocation. Mild degenerative change ofthe bilateral hips. Payton Rao MD RADIOLOGY (RAD GENER AL) documented in this encounter Visit Diagnoses Diagnosis Hip pain, left- Primary Pain in joint, pelvic region and thigh Type 2 diabetes mellitus with hemoglobin A1c goal of less than 7.0% (HCC) Type 2 diabetes mellitus with complication, with long-term current use of insulin (HCC) Old ID (myocardial infarction) Old myocardial infarction Moderate episode of recurrent major depressive disorder (HCC) HTN, goal below 130/80 Unspecified essential hypertension Chronic hepatitis C without hepatic coma (HCC) Chronic hepatitis C without mention of hepatic coma Benign prostatic hyperplasia without lower urinary tract symptoms Hip pain, left Pain in joint, pelvic region and thigh History of colon polyps Personal history of colonic polyps documented in this encounter Care Teams Audit Spec Relationship Specialty Start Date End Date Willam Fofana DO [address] [place] [address] PCP - General Family Medicine 04/26/17 documented as of this encounter
--- OUTSIDE RECORDS SUMMARY | 2024-08-05 16:01 | External Medical Summary | Summary of Care ---
Author Name Unknown Organization [facility] Address [address] [place] [address] Phone [phone] Care Team Providers Care Broadcast Systems Engineer Name Role Phone Willam Fofana DO Primary Care Provider Reason for Visit * Reason Comments Dosage Adjustment In Person (Anticoag Cl inic) Diabetes Management Encounter Details Date Type Department Care Team (Late st Contact Info) Description 08/03/2024 7:30 AM EDT Office Visit Pharmacy, [place] [address] [place] [address] [facility] [address] [place] [address] Type 2 diabetes mellitus with hemoglobin A1c goal of less than 7.0% ([facility]; Type 2 diabetes mellitus with complication, with long-term current use of insulin ([facility]) Allergies Active Allergy Reactions Criticality Noted Date Comments Amoxicillin-Pot Clavulanate Hives High 11/26/19 12 Sulfamethoxazole-Trimethopri m 02/07/2016 Insulin Glargine 01/21/2016 States he went in to CHF after one shot of insulin Other reaction(s): CHF Permethrin 04/27/2013 Shrimp Flavor 04/27/2013 documented as of this encounter (statuses as of 08/03/2024) Medications Medication Sig Dispensed Refills Start Date [...] A1c goal of less than 7.0% ([facility]) Inject 100 Units under the skin in [...] rate episode of recurrent major depressive disorder ([facility]) TAKE 1 TABLET BY MOUTH IN THE MORNING 90 Tablet 3 4 Active Jardiance 25 MG Oral Tablet (Empagliflozin)Kimberlee cations:Type 2 diabetes mellitus with hemoglobin A1c goal of less than 7.0% ([facility]) TAKE 1 TABLET BY MOUTH IN THE [...] neuropathy, with long-term current use of insulin ([facility]) Take 2 Tablets by mouth in the [...] 30 Each 5 4 Active Dexcom G6 Inspector Line DeviceIndications:D M type 2, not at goal ([facility]) Use as directed. 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/11 Overview: HIV negative Non-ischemic cardiomyopathy 02/26/2014 HTN, goal below 130/80 02/26/2014 History of heroin abuse 02/26/2014 Hepatitis C documented as of this encounter (statuses as of 08/03/2024) Resolved Problems Problem Noted Date Diagnosed Date [...] as of this encounter (statuses as of 08/03/2024) Immunizations Name Administration Dates Next Due COVID-19 mRNA, LNP-s, No Pre serve, 2-Dose Series ([employer]) 09/12/2021,12/18/2020,11/27/2020 COVID-19, MRNA-LNP, 24-25, P R, 30MCG/0.3ML, IM, 12YRS AND ABOVE ([employer]-[facility]) 11/07/2023 Hepatitis B, 20+ yrs 07/26/2015,03/01/2015,11/29 Pneumococcal Conjugate Vacci ne, 20-valent ([id number]) 12/22/2023,07/15/2022 Pneumococcal Polysaccharide PPV23 (Pneumovax) 02/26/2014 Seasonal [...] as of this encounter Progress Notes * Laura Guerrero, [facility] - 08/03/2024 7:44 AM EDT Images from the original note were not included. Medication Therapy Disease Management Clinic - Diabetes Management Progress Note Facundo Botello, identified by name and date of , is a 64 year old male being seen for diabetesmanagement/education. [...] your blood sugar go below 70 mg/dL? Yes, states about 50s. States that he did feel a bit symptomatic due to altered balance. Hyperglycemia symptoms present: none Recent Labs Units 08/01/24 1051 01/24/24 1136 07/20/23 1118 HEMOGLOBIN A1C - [facility] % 11.1* 10.7* 10.9* Recent Labs Units 08/01/24 1051 01/24/24 1136 11/13/22 1540 ESTIMATED GLOMERULAR FILTRATION RATE - [facility] mL/min >90 >90 >90 CREATININE - [facility] mg/dL 0.6 0.9 0.8 HYPERTENSION: Patient on ACEi/ARB: yes BP Readings from Last 3 Encounters: 08/01/24 130/82 07/13/24 102/70 07/11/24 128/72 Blood pressure at goal: yes HYPERLIPIDEMIA: Recent Labs Units 08/31/23 1356 LDL CHOLESTEROL (CALCULATED) - [facility] mg/dL 75 Does patient have clinical ASCVD? No, is patient LDL less than 70mg/dL? Yes HEALTH MAINTENANCE REVIEW: Health Maintenance Due Topic Date Due Colorectal Cancer Screening 01/11/2024 COVID-19 Vaccine ( season) 2024 Albumin/Creatinine Ratio 08/13/2024 ASSESSMENT & PLAN: ICD-10-CM 1. Type 2 diabetes mellitus with hemoglobin A1c goal of less than 7.0% ([facility]) E11.9 2. Type 2 diabetes mellitus with complication, with long-term current use of insulin ([facility]) E11.8 Z79.4 Considerations: - hx of noncompliance - takes all medications in the morning - hx of pancreatitis in 2015 and 2019 - allergy to lantus (glargine) - does not want to take any higher of a metformin dose BG Readings - Blood sugars uncontrolled. Patient uses the dexcom consistently. Per the dexcom charthis blood sugars are very uncontrolled. He also confirms that he is having consistent lows at the end of the day when he does take his Novolog. However, patient takes his novolog after meals. Medications - Reviewed current regimen, patient is not adherent to regimen. Usually will do 60 units for each meal; typically in the morning and supper time. However, does not take Novolog prior to meals and will take after meals due to forgetfulness or will take it 30-45 mins prior to eating whichhe does state will make him go low. Counseled him to try and be compliant with his fast acting insulin as much as he can and to take it right before he is about to eat. Educated him on the risk and issues with taking it after meals and way before. Patient also states that he will take a dose of novolog when his blood sugars are high. Was unable to give me a consistent dose that he does but statedhe gave 60 units at one point for high blood sugar. Advised against a full 60 units and stated he could try 10 units. States he does not his himself the lunch time dose due to not eating. However, seems to be more compliant than past visits. Diet, Exercise, Lifestyle - Patient is still eating a heavy carb and sugar diet. Still drinks lot of milk and has been making smoothies with orange juice. States he drinks a lot of fruit juice through the day and discussed the proper amounts for these drinks and also to try and cut back a bit . Discussed with patient The importance of staying consistent with his diet and insulin regimen. Patient is agreeable to SMBG daily with Dexcom Patient aware to contact clinic if any hypoglycemia before next visit. MEDICATION CHANGES: no change Diabetic Medications: Toujeo Max (U300) 100 units in the AM; 100 units in the PM (2 unit increments) Novolog 60 units with breakfast, 20 units with lunch, 60 units with dinner Metformin 750 mg ER two tablets daily in the morning Jardiance 25mg daily (Potential candidate for an insulin pump; was not discussed at this visit) HEALTH MAINTENANCE INTERVENTIONS: Labs: Up to Date Immunizations: Up to Date Foot Exam: Up to Date Eye Exam: Up to Date Annual Wellness Visit: Up to Date FOLLOW UP: Return to clinic in 12 weeks 10/26/2024 I spent a total of 30-39 minutes (exact time 32 mins) on the date of service in preparation, delivery, and documentation of the care provided to Facundo Botello excluding any time spent in the performance of separately billed services. Laura Guerrero RPh Clinical Pharmacist - International Student Counselor Medication Therapy Management Clinic 08/03/2024, 7:44 AM documented in this encounter Plan of Treatment Upcoming Encounters Date Type Department Care Team (Latest Contact Info) Description 09/12/2024 9:30 AM EST Hospital Encounter ENDO [facility], Endoscopy Room [facility] [address] [facility] [place] [phone] Kandice Arevalo MD [address] [facility] [place] [address] 09/12/2024 9:30 AM EST - 09/12/2024 10:00 AM EST Surgery ENDO [facility], Endoscopy Room [facility] [address] [place] [phone] Kandice Arevalo MD [address] [place] [address] COLONOSCOPY FLEXIBLE PROXIMAL DIAGNOSTIC 10/05/2024 11:20 AM EST Nutrition Services Nutrition & Weight Management, [facility] [address] [facility] [place] [address] Mayuri Ernst RDN [address] [facility] [place] [address] 10/26/2024 7:30 AM EST Office Visit Pharmacy, [place] [address] [place] [address] [facility] [place] [address] 02/02/2025 10:15 AM EDT Office Visit [facility] [address] [place] [address] Mason Jean-Baptiste MD [address] [place] [address] 02/09/2025 11:40 AM EDT Office Visit Family Practice [facility] [address] [place] [address] Willam Fofana, [address] [place] [address] Scheduled Procedures Name Priority Associated Diagnoses Date/Ti [...] polyps documented in this encounter Care Teams Broadcast Systems Engineer Relationship Specialty Start Date End Date Willam Fofana DO [facility] [place] [address] PCP - General Family Medicine 04/26/17 documented as of this encounter
--- OUTSIDE RECORDS SUMMARY | 2024-08-05 16:01 | External Medical Summary ---
Author Name Unknown Address Unknown Organization [id number]:[facility] [place] - [address] [facility] [address] Laboratory Report Ordering Provider Test Date Status OLEG SKINNER 08/01/2024 10:51:54 Final Observation Date Value Abnormality Reference (Units ) Status HbA1C 08/01/2024 10:51:54 11.1 Above high normal 4. 0-5.6 (%) Final The use of HbA1c to monitor glycemic status is based on normal hemoglobin and HbA composition. This test should not be used in patients with abnormal hemoglobin that affects the half life of the red blood cell or the in vivo glycation rates. Glucose, estimated average 08/01/2024 10:51:54 272 Above high normal <126 (mg/dL) Jonas cabrera Performing Location [facility] - [address] [facility] [address]
--- OUTSIDE RECORDS SUMMARY | 2024-08-05 16:01 | External Medical Summary | Summary of Care ---
Author Name Unknown Organization [facility] Address [address] [place] [place] [place] [address] Phone [phone] Care Team Providers Care Director Of Partner Marketing Name Role Phone Willam Fofana DO Primary Care Provider Reason for Visit * Reason Comments Outpatient Testing Encounter Details Date Type Department Care Team (Late st Contact Info) Description 08/01/2024 10:50 AM EDT Laboratory [facility] [place] [address] [place] [phone] [place], [facility] Scenery [address] [place] [address] Type 2 diabetes mellitus with diabetic neuropathy, with long-term current use of insulin (HCC); Screening PSA (prostate specific antigen) Allergies Active Allergy Reactions Criticality Noted Date Comments Amoxicillin-Pot Clavulanate Hives High 11/26/19 12 Sulfamethoxazole-Trimethopri m 02/07/2016 Insulin Glargine 01/21/2016 States he went in to CHF after one shot of insulin Other reaction(s): CHF Permethrin 04/27/2013 Shrimp Flavor 04/27/2013 documented as of this encounter (statuses as of 08/01/2024) Medications Medication Sig Dispensed Refills Start Date [...] hemoglobin A1c goal of less than 7.0% ([facility]) Inject 100 Units under the skin in the morning and 100 Units before bedtime. 60 mL 3 4 Active NovoLOG FlexPen ReliOn 100 UNIT/ML Subcutaneous Solution Pen-injector (insulin aspart)Indications: Type 2 diabetes mellitus with complication, with long-term current use of insulin ([facility]) INJECT 60 UNITS SUBCUTANEOUSLY WITH [...] neuropathy, with long-term current use of insulin ([facility]) Take 2 Tablets by mouth [...] 30 Each 5 4 Active Dexcom G6 Floor Plan Adjuster DeviceIndications:D M type 2, not at goal ([facility]) Use as directed. E11.9 1 Each 4 Active Dexcom G6 SensorIndications:D M type 2, not at goal ([facility]) Use as directed. 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, right 07/11 Overview: HIV negative Non-ischemic cardiomyopathy 02/26/2014 HTN, goal below 130/80 02/26/2014 History of heroin abuse 02/26/2014 Hepatitis C documented as of this encounter (statuses as of 08/01/2024) Resolved Problems Problem Noted Date Diagnosed Date [...] as of this encounter (statuses as of 08/01/2024) Immunizations Name Administration Dates Next Due COVID-19 mRNA, LNP-s, No Pre serve, 2-Dose Series ([employer]) 09/12/2021,12/18/2020,11/27/2020 COVID-19, MRNA-LNP, 24-25, P R, 30MCG/0.3ML, IM, 12YRS AND ABOVE ([employer] 11/07/2023 Hepatitis B, 20+ yrs 07/26/2015,03/01/2015,11/29 Pneumococcal Conjugate Vacci ne, 20-valent (Byjoncw21) 12/22/2023,07/15/2022 Pneumococcal Polysaccharide PPV23 (Pneumovax) 02/26/2014 Seasonal [...] No 11/11/2023 Does the household have a [facility] source [facility] income? (Household - for ages [...] Department Care Team (Latest Contact Info) Description 08/03/2024 7:30 AM EDT [facility] [address] [place] [address] [place], [facility] [address] [place] [address] 09/12/2024 9:30 AM EST Hospital Encounter ENDO OSS, Endoscopy Room [facility] [address] [place] [phone] Kandice Arevalo MD [address] [place] [address] 09/12/2024 9:30 AM EST - 09/12/2024 10:00 AM EST Surgery ENDO OSSC, Endoscopy Room [facility] [address] [facility] [place] [phone] Kandice Arevalo MD [address] [place] [address] COLONOSCOPY FLEXIBLE PROXIMAL DIAGNOSTIC 10/05/2024 11:20 AM EST Nutrition Services Nutrition & Weight Management, [facility] [address] [place] [address] Mayuri Ernst RDN [address] [place] [address] 02/02/2025 10:15 AM EDT Office Visit [facility] [address] [place] [address] Mason Jean-Baptiste MD [address] [place] [address] 02/09/2025 11:40 AM EDT Office Visit Family Practice [facility] [address] [facility] [place] [address] Willam Fofana, [address] [facility] [place] [address] Pending Results Name Type Priority Associated Diagnoses Date /Time COMPREHENSIVE METABOLIC PANEL Lab Routine Type 2 diabetes mellitus with diabetic neuropathy, with long-term current use of insulin (HCC) 08/01/2024 10:51 AM EDT HEMOGLOBIN A1C Lab Routine Type 2 diabetes mellitus with diabetic neuropathy, with long-term current use of insulin ([facility]) 08/01/2024 10:51 AM EDT PSA Lab Routine Screening PSA (prostate specific antigen) 08/01/2024 10:51 AM EDT Scheduled Procedures Name Priority Associated Diagnoses Date/Ti az COLONOSCOPY FLEXIBLE PROXIMAL DIAGNOSTIC Recall History of colon polyps 09/12/2024 9:30 AM EST Health Maintenance Due Date Last Done Comments Cologuard 2007 Fecal Occult Blood Test 2007 Sigmoidoscopy 2007 Colonoscopy 01/11/2024 01/10/2019, 11/12, 09/25/2014 Colorectal Cancer Screening 01/11/2024 COVID-19 Vaccine ( season) 2024 11/07/2023, 08/22/2022, 05/07/2022, Additional history exists HbA1c 07/25/2024 01/24/2024, 110 [...] Diagnoses Diagnosis Type 2 diabetes mellitus with diabetic neuropathy, with long-term current use of insulin (HCC) Screening PSA (prostate specific antigen) Special screening for malignant neoplasm of prostate History of colon polyps Personal history of colonic polyps documented in this encounter Care Teams Director Of Partner Marketing Relationship Specialty Start Date End Date Willam Fofana DO [address] [place], [place] [phone] PCP - General Family Medicine 04/26/17 documented as of this encounter
--- OUTSIDE RECORDS SUMMARY | 2024-08-05 16:01 | External Medical Summary ---
Author Name Unknown Address Unknown Organization K09:[facility] - [address] [place] [address] Laboratory Report Ordering Provider Test Date Status OLEG SKINNER 08/01/2024 10:51:54 Final Observation Date Value Abnormality Reference (Units ) Status BUN 08/01/2024 10:51:54 14 6-20 (mg/dL) Final Creatinine 08/01/2024 10:51:54 0.6 0.6-1.2 (mg/dL) Final Glomerular filtration rate/1.73 sq M.predicted [Volume Rate/Area] in Serum, Plasma or Blood by Creatinine-based formula (CKD-EPI) 08/01/2024 10:51:54 >90 >=60 (mL/min) Final eGFR is calculated based on the CKD-EPI 2020 equation. Sodium 08/01/2024 10:51:54 137 135-146 (m mol/L) Final Potassium 08/01/2024 10:51:54 4.3 3.5-5.1 (m mol/L) Final Cl 08/01/2024 10:51:54 102 98-107 (mm ol/L) Final CO2 08/01/2024 10:51:54 27 22-32 (mmo l/L) Final Anion gap 08/01/2024 10:51:54 8 7-15 (mmol /L) Final Glucose 08/01/2024 10:51:54 240 Above high normal 70 -120 (mg/dL) Final Albumin 08/01/2024 10:51:54 3.7 Below low normal 3.8 -5.0 (g/dL) Final AST (Aspartate aminotransferase) 08/01/2024 10:51:54 25 10-50 (U/L) Fin al Alk Phos 08/01/2024 10:51:54 108 35-130 (U/ L) Final Bilirubin, Total 08/01/2024 10:51:54 0.5 <=1 .2 (mg/dL) Final Calcium 08/01/2024 10:51:54 8.9 8.4-10.2 ( mg/dL) Final Protein 08/01/2024 10:51:54 6.4 6.0-8.3 (g /dL) Final ALT (Alanine aminotransferase) 08/01/2024 10:51:54 30 10-50 (U/L) Jonas cabrera Performing Location [facility] [address] [place] [address]
[2024-08-05 17:30] LABS: Basophils % (auto) 1.2 %; Eosinophils # (auto) 0.32 K/uL (0.00-0.50); Eosinophils % (auto) 3.7 %; Hematocrit (blood only) 46.8 % (42.0-52.0); Hemoglobin 15.8 g/dl (14.0-18.0); Immature Granulocytes # (auto) 0.09 K/uL (0.01-0.20); Lymphocytes # (auto) 2.12 K/uL (1.20-3.40); Lymphocytes % (auto) 24.6 %; Mean Corpuscular Hemoglobin 29.1 pg (25.0-34.0); Mean Corpuscular Hgb Conc 33.8 g/dL (32.0-36.0); Mean Corpuscular Volume 86.2 fL (80.0-100.0); Mean Platelet Volume 9.5 fL (9.4-12.4); Monocytes # (auto) 0.69 K/uL (0.11-0.59); Neutrophils % (auto) 61.5 %; Platelet Count 233 K/uL (130-400); RDW Coefficient of Variation 13.3 % (11.5-14.5); RDW Standard Deviation 41.5 fL (36.4-46.3); Red Blood Count 5.43 M/uL (4.70-6.10); White Blood Count 8.62 K/ul (4.8-10.8)
--- NOTE | 2024-08-05 17:42 | Emergency Department Note ---
Impression & Plan Burn of abdominal wall, Hyperglycemia, Cellulitis of finger, right, Foot pain, left, Abdominal wall cellulitis ED Provider Note ED Provider Note NAME: ELIN ELLISON AGE:64 SEX: Male : 1960 ARRIVES VIA: Private vehicle INFORMANT: Patient ED PROVIDER(s): Karen Ramirez DO CHIEF COMPLAINT: Abdominal wall burn, right finger injury, left foot pain HPI: This is a 64-year-old male who presents emergency department due to concern for a burn to his abdominal wall which occurred a week ago. He states he did see his PCP regarding this and was given Silvadene to apply. He has been doing this and changing the dressing daily. He also notes pain and area of swelling to the right mid lateral pointer finger that he thinks he injured when he was fixing his air conditioner. He states he did try to "pop it" and noticed some discharge and drainage but still feels as though it is painful and swollen. He also notes pain to the bottom of his left foot. He denies any trauma or injury denies any redness or swelling. Patient is a known diabetic, denies peripheral neuropathy. He states he does not know where his sugars have been recently despite obviously still having a glucometer effects to his abdominal wall. PAST MEDICAL HISTORY:See Below PAST SURGICAL HISTORY:See Below FAMILY HISTORY:See Below SOCIAL HISTORY:See Below HOME MEDICATIONS:See Below ALLERGIES:See Below VITALS:See Below PHYSICAL EXAMINATION: GENERAL: alert, well appearing, well nourished, no distress, non-toxic EYE EXAM: normal conjunctiva, PERRL and EOM's grossly intact OROPHARYNX: no exudate, no erythema, lips, buccal mucosa, and tongue normal and mucous membranes are dry NECK: supple, no nuchal rigidity, no adenopathy, non-tender LUNGS: Clear to auscultation. Normal chest wall mechanics, no w/r/r HEART: no murmurs, S1 normal and S2 normal ABDOMEN: abdomen soft, non-tender, normo-active bowel sounds, no masses, no rebound or guarding. Glucose monitoring device noted in the left lower quadrant. Area on the patient's abdomen consistent with second-degree burn and unroofed blisters with active discharge and drainage, no active bleeding, no surrounding erythema, no surrounding crepitus BACK: Back is symmetrical on inspection and there is no deformity, no midline tenderness, no CVA tenderness. SKIN: no rashes, petechiae, orbruising UPPER EXTREMITIES: upper extremities are grossly normal. FROM, nml pulses b/l. Small fluctuant papular yellowed area noted to the lateral first digit between the PIP and DIP, no diffuse edema, he can range the finger normally, mild drainage with palpation over that area, no lymphangitic streaking into the hand, appearance not consistent with a felon, appears more consistent with a small abscess LOWER EXTREMITIES: No pitting edema. FROM, nml pulses b/l. No evidence of trauma or deformity. Patient points to the arch of the left midfoot as the area of pain, there is a roughed area in the mid plantar aspect that is nontender with palpation the patient states is painful with ambulation and weightbearing, no other abnormality noted to the left foot, normal cap refill, sensation intact bilaterally NEURO EXAM: Normal sensorium, cranial nerves II-XII grossly intact, normal speech, no facial droop,nogross weakness of arms, no gross weakness of legs. Gross sensation intact. No ataxia. Vital Signs: reviewed and remarkable Differential Diagnosis: DKA, noncompliance, cellulitis, abdominal wall wound, medication ADR, abscess, as well as others were considered MEDICAL DECISION MAKING: This is a 64-year-old male presents emergency department with several complaints including drainage from a recent burn to his abdominal wall as well as pain in drainage at the right second digit and pain to the left foot. 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 He was afebrile and vital signs stable. Labs drawn and sent, IV established, EKG and several x-rays performed at bedside and interpreted by me, patient monitored on telemetry. Patient found to have significant hyperglycemia although no DKA. I did take a wound culture from the abdominal wall wound and apply a new dressing. Small apparent abscess noted to the right pointer finger, no findings to suggest tenosynovitis. Appearance not consistent with a felon. I do not suspect septic arthritis. Unclear etiology of his pain at the foot. Patient given IV insulin and started on IV fluids. His blood sugar did improve. Patient was given oral doxycycline initially for concern for a secondary infection to the abdominal wall infection. We discussed all results at bedside. Case discussed with the hospitalist team for additional evaluation and management. Consultation(s): 2030: Discussed with Dr. De La Torre, [facility] hospitalist team, for additional evaluation and management. ER Treatment Provided: See below Diagnostics Interpreted By Me: -ECG: Normal sinus at 76, first-degree AV block, rightward axis, normal intervals, no acute ST/T wave changes -Cardiac Monitoring: An order was placed for continuous cardiac monitoring. The monitor shows a rate of 80 with normal sinus rhythm. -Laboratory studies: As stated above and show below. -Imaging studies: X-ray left foot: No obvious fracture or dislocation X-ray right hand: No obvious fracture or foreign body Triage Nursing Note Reviewed Prior/Outside Records Reviewed Past Med/Surg History Problem List (Updated 08/05/24 @ 22:56 by Karen Ramirez, ) Abdominal wall cellulitis (Acute) Foot pain, left (Acute) Cellulitis of finger, right (Acute) Hyperglycemia (Acute) Burn of abdominal wall (Acute) Unable to care for self (Acute) Generalized muscle weakness (Acute) Ambulatory dysfunction (Acute) Noncompliance w/medication treatment due to intermit use of medication BPH (benign prostatic hyperplasia) Anxiety and depression Bronchitis Uncontrolled type 2 diabetes mellitus with hyperglycemia (Acute) Ambulatory dysfunction (Acute) Generalized weakness (Acute) Acute hyperglycemia (Acute) Morbid obesity with BMI of 40.0-44.9, adult Acute hyperglycemia (Acute) ALEJANDRA (obstructive sleep apnea) Hyperglycemia Nonischemic cardiomyopathy (Chronic) "prior EF 30% per Epic records. echo 02/2015- EF 40-45%" DM type 2 (diabetes mellitus, type 2) (Chronic) H/O TB (tuberculosis) (Chronic) H/O toxoplasmosis (Chronic) Hepatitis C (Chronic) Hypertension (Chronic) Colon polyp (Chronic) "TVA polyp on colonoscopy 09/2014" H/O colonoscopy (Chronic) "11/2015- diverticulosis" S/P cardiac cath (Chronic) "for abnormal stress test. cath 03/18/2015-essentially normal coronaries with no obstructive disease " Colon polyp Confusion (Acute) Hyperglycemia due to type 2 diabetes mellitus (Acute) DVT prophylaxis Polyneuropathy Peripheral vascular disease Depression Bilateral cellulitis of lower leg (Acute) Fatigue (Acute) Encephalopathy Hypercapnic respiratory failure Varicose veins of bilateral lower extremities with other complications Morbid obesity H/O drug abuse Medical History Peripheral neuropathy Shortness of breath Acute dehydration Accidental fall tripped over dog bed, hit back of head, checked in the ED poss concussion Dysequilibrium Hepatitis C Diabetes mellitus, type 2 Depression Anxiety Hypertension Surgical History History of colonoscopy History of umbilical hernia repair x2 History of tooth extraction History of wisdom tooth extraction History of cardiac cath 03/2015 @ [facility], no stents follows with Dr. 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 Beliefs That Will Affect Care: None marital status: Single Current Living Situation: Alone Current Living Situation Comment: lives alone Feels Safe at Home: Yes Gender Identity: Male Assistive Devices: None Allergies Allergies Allergy/AdvReac Type Severity Reaction Status Date / Time shellfish derived Allergy Severe Swelling Verified 05/09/24 15:21 amoxicillin Allergy Intermediate HIVES Verified 05/09/24 15:21 clavulanic acid Allergy Intermediate HIVES Verified 05/09/24 15:21 permethrin Allergy Intermediate swelling Verified 05/09/24 15:21 shrimp Allergy Intermediate SWELLS Verified 05/09/24 15:21 sulfamethoxazole Allergy Unknown CAN'T Verified 05/09/24 15:21 [From Bactrim] REMEMBER trimethoprim [From Bactrim] Allergy Unknown CAN'T Verified 05/09/24 15:21 REMEMBER insulin glargine AdvReac Severe CHF Verified 05/09/24 15:21 [From Lantus U-100 Insulin] Home Meds Home Medications Medication Instructions Recorded Confirmed aspirin 81 mg tablet,delayed 81 mg PO DAILY 08/01/22 08/05/24 release bupropion HCl 300 mg 24 hr tablet, 300 mg PO DAILY 08/01/22 08/05/24 extended release empagliflozin 25 mg tablet 25 mg PO DAILY 08/01/22 08/05/24 (Jardiance) insulin aspart U-100 100 unit/mL 60 unit subcut BIDM 08/01/22 08/05/24 (3 mL) subcutaneous pen (Novolog FlexPen U-100 Insulin aspart) ascorbic acid (vitamin C) 500 mg 500 mg PO DAILY 09/21/22 08/05/24 tablet (Vitamin C) multivitamin with minerals 1 tab PO DAILY 09/21/22 08/05/24 (Multiple Vitamin-Minerals tablet) lisinopril 20 mg tablet 20 mg PO QAM 10/10/23 08/05/24 sertraline 100 mg tablet 100 mg PO QAM 10/10/23 08/05/24 insulin glargine U-300 conc 300 100 unit subcut BID 10/14/23 08/05/24 unit/mL (3 mL) subcutaneous pen (Toujeo Max U-300 SoloStar) tamsulosin 0.4 mg capsule 0.4 mg PO DAILY 10/14/23 08/05/24 spironolactone 25 mg tablet 25 mg PO DAILY 05/09/24 08/05/24 albuterol sulfate 90 mcg/actuation 90 mcg inhalation DAILY PRN 06/06/24 08/05/24 aerosol inhaler Wheezing metformin 750 mg tablet,extended 1,500 mg PO DAILY 06/06/24 08/05/24 release 24 hr fluticasone furoate 100 100 mcg inhalation DAILY 08/05/24 08/05/24 mcg/actuation blister powder for inhalation (Arnuity Ellipta) silver sulfadiazine 1 % topical 1 applic topical DAILY 08/05/24 08/05/24 cream (SSD) Previous Rx's Medication Instructions Recorded cyanocobalamin (vitamin B-12) 1,000 mcg PO DAILY #30 caps 05/12/24 1,000 mcg capsule carisoprodol 350 mg tablet (Soma) 350 mg PO QID PRN muscle pain #16 07/16/24 tabs diclofenac sodium 75 mg 75 mg PO BID #14 tabs 07/16/24 tablet,delayed release Results & Data (ED) Vital Signs Vital Signs - 24 hr 08/05/24 16:01 08/05/24 16:27 08/05/24 16:37 Temperature 36.9 C Temperature Source Temporal Artery Scan Pulse Rate 80 80 Pulse Rate [Right Finger] 82 Respiratory Rate 20 15 Respiratory Effort / Characteristics Non-Labored Non-Labored Spontaneous Respiratory Depth Normal Blood Pressure 117/75 Blood Pressure [Right Arm] 118/75 Blood Pressure Mean 89 Blood Pressure Mean [Right Arm] 89 Blood Pressure Position [Right Arm] Lying Pulse Oximetry 98 92 Oxygen Delivery Method Room Air Room Air Sepsis Recent Fever Within 48 Hours No Sepsis New/Unexplained Change in Mental Status No Sepsis Action Taken by Nursing No Action Required 08/05/24 18:00 08/05/24 20:23 08/05/24 20:25 Temperature Temperature Source Pulse Rate 79 Pulse Rate [Right Finger] 76 78 Respiratory Rate 18 17 Respiratory Effort / Characteristics Non-Labored Spontaneous Respiratory Depth Blood Pressure Blood Pressure [Right Arm] 114/68 110/64 Blood Pressure Mean Blood Pressure Mean [Right Arm] 83 79 Blood Pressure Position [Right Arm] Pulse Oximetry 94 95 Oxygen Delivery Method Room Air Room Air Sepsis Recent Fever Within 48 Hours Sepsis New/Unexplained Change in Mental Status Sepsis Action Taken by Nursing 08/05/24 22:03 Temperature Temperature Source Pulse Rate Pulse Rate [Right Finger] 77 Respiratory Rate 19 Respiratory Effort / Characteristics Respiratory Depth Blood Pressure Blood Pressure [Right Arm] 129/72 Blood Pressure Mean Blood Pressure Mean [Right Arm] 91 Blood Pressure Position [Right Arm] Pulse Oximetry 94 Oxygen Delivery Method Room Air Sepsis Recent Fever Within 48 Hours Sepsis New/Unexplained Change in Mental Status Sepsis Action Taken by Nursing Laboratory Data 08/05/24 17:11 08/05/24 17:11 Lab Results 08/05/24 08/05/24 08/05/24 Range/Units 17:11 17:26 20:40 WBC 8.62 (4.8-10.8) K/ul RBC 5.43 (4.70-6.10) M/uL Hgb 15.8 (14.0-18.0) g/dl Hct 46.8 (42.0-52.0) % MCV 86.2 (80.0-100.0) fL MCH 29.1 (25.0-34.0) pg MCHC 33.8 (32.0-36.0) g/dL RDW Std Deviation 41.5 (36.4-46.3) fL RDW Coeff of Marc 13.3 (11.5-14.5) % Plt Count 233 (130-400) K/uL MPV 9.5 (9.4-12.4) fL Immature Gran % (Auto) 1.0 % Neut % (Auto) 61.5 % Lymph % (Auto) 24.6 % Valley % (Auto) 8.0 % Eos % (Auto) 3.7 % Baso % (Auto) 1.2 % Neut # (Auto) 5.30 (1.40-6.50) K/uL Lymph # (Auto) 2.12 (1.20-3.40) K/uL Valley # (Auto) 0.69 H (0.11-0.59) K/uL Eos # (Auto) 0.32 (0.00-0.50) K/uL Baso # (Auto) 0.10 (0.00-0.20) K/uL Immature Gran # (Auto) 0.09 (0.01-0.20) K/uL PT 10.0 (9.0-12.0) Seconds INR 0.9 (0.9-1.1) Sodium 133 L (136-145) mmol/L Potassium 4.1 (3.5-5.1) mmol/L Chloride 96 L (98-107) mmol/L Carbon Dioxide 29 (21-32) mmol/L Anion Gap 8 (3-11) BUN 23 (6-23) mg/dl Creatinine 0.84 (0.6-1.4) mg/dl Est Cr Clr Drug Dosing 125.5 ml/min eGFR 98.60 BUN/Creatinine Ratio 27.4 H (10-20) Glucose 595 H* (70-99(Fasting)) mg/dl POC Glucose 567 H* 361 H* (70-99) mg/dl Calcium 9.2 (8.6-10.3) mg/dl Magnesium 1.9 (1.7-2.4) mg/dl Total Bilirubin 0.4 (0.2-1.0) mg/dl AST 24 (13-39) U/L ALT 27 (7-52) U/L Alkaline Phosphatase 90 (34-104) U/L Total Protein 6.4 (6.0-8.3) gm/dl Albumin 3.3 L (3.4-5.0) gm/dl Globulin 3.1 (2.5-4.0) gm/dl Albumin/Globulin Ratio 1.1 (0.9-2) Lipase 374 H (11-82) U/L Urine Color Urine Appearance (Clear) Urine pH (4.5-7.5) Ur Specific [place] (1.000-1.030) Urine Protein (Negative) Urine Glucose (UA) (Negative) Urine Ketones (Negative) Urine Blood (Negative) Urine Nitrite (Negative) Urine Bilirubin (Negative) Urine Urobilinogen (Negative) Ur Leukocyte Esterase (Negative) 08/05/24 Range/Units 22:05 WBC (4.8-10.8) K/ul RBC (4.70-6.10) M/uL Hgb (14.0-18.0) g/dl Hct (42.0-52.0) % MCV (80.0-100.0) fL MCH (25.0-34.0) pg MCHC (32.0-36.0) g/dL RDW Std Deviation (36.4-46.3) fL RDW Coeff of Marc (11.5-14.5) % Plt Count (130-400) K/uL MPV (9.4-12.4) fL Immature Gran % (Auto) % Neut % (Auto) % Lymph % (Auto) % Valley % (Auto) % Eos % (Auto) % Baso % (Auto) % Neut # (Auto) (1.40-6.50) K/uL Lymph # (Auto) (1.20-3.40) K/uL [place] # (Auto) (0.11-0.59) K/uL Eos # (Auto) (0.00-0.50) K/uL Baso # (Auto) (0.00-0.20) K/uL Immature Gran # (Auto) (0.01-0.20) K/uL PT (9.0-12.0) Seconds INR (0.9-1.1) Sodium (136-145) mmol/L Potassium (3.5-5.1) mmol/L Chloride (98-107) mmol/L Carbon Dioxide (21-32) mmol/L Anion Gap (3-11) BUN (6-23) mg/dl Creatinine (0.6-1.4) mg/dl Est Cr Clr Drug Dosing ml/min eGFR BUN/Creatinine Ratio (10-20) Glucose (70-99(Fasting)) mg/dl POC Glucose (70-99) mg/dl Calcium (8.6-10.3) mg/dl Magnesium (1.7-2.4) mg/dl Total Bilirubin (0.2-1.0) mg/dl AST (13-39) U/L ALT (7-52) U/L Alkaline Phosphatase (34-104) U/L Total Protein (6.0-8.3) gm/dl Albumin (3.4-5.0) gm/dl Globulin (2.5-4.0) gm/dl Albumin/Globulin Ratio (0.9-2) Lipase (11-82) U/L Urine Color Yellow Urine Appearance Clear (Clear) Urine pH 6.5 (4.5-7.5) Ur Specific [place] 1.034 H (1.000-1.030) Urine Protein Negative (Negative) Urine Glucose (UA) 3+ H (Negative) Urine Ketones Negative (Negative) Urine Blood Negative (Negative) Urine Nitrite Negative (Negative) Urine Bilirubin Negative (Negative) Urine Urobilinogen Negative (Negative) Ur Leukocyte Esterase Negative (Negative) Administered Medications Lactated Ringer's (Lr) 1,000 mls @ 125 mls/hr IV .Q8H MULU Stop: 08/06/24 19:59 Last Admin: 08/05/24 20:43 Dose: 125 mls/hr Documented By: BETTY Discontinued Medications Diphenhydramine HCl (Diphenhydramine 50 Mg/Ml Vial) 25 mg IV ONE ONE Stop: 08/05/24 18:21 Last Admin: 08/05/24 18:31 Dose: 25 mg Documented By: JOSE MANUEL Doxycycline Hyclate (Doxycycline Hyclate 100 Mg Cap) 100 mg PO NOW STA Stop: 08/05/24 18:21 Last Admin: 08/05/24 18:31 Dose: 100 mg Documented By: JOSE MANUEL Insulin Human Regular (Novolin-R Insulin Per Unit Charge) 10 units IV NOW STA Stop: 08/05/24 19:55 Last Admin: 08/05/24 20:42 Dose: 10 units Documented By: BETTY Co-signed By: ENRIQUETA Ioversol (Optiray 320 100ml) 90 ml IV ONCE ONE Stop: 08/05/24 19:05 Last Admin: 08/05/24 19:04 Dose: 90 ml Documented By: EDK Imaging Data Radiologist's Impression: Chest X-Ray 08/05/24 16:52 XR chest 1V portable HISTORY: 64 years-old Male sob acute shortness of breath COMPARISON: 05/27/2024 TECHNIQUE: AP view of the chest FINDINGS: Heart is mildly enlarged. Mild bibasilar atelectasis. No pneumothorax or pleural effusion. Spondylitic spurring of the spine. IMPRESSION: No acute process. ACT 112: Negative or not required by law. The above report was generated using voice recognition software. It may contain grammatical, syntax or spelling errors. Electronically signed by: Juan Gonzalez M.D. 08/05/2024 5:57 PM Finger X-Ray 08/05/24 16:52 XR finger(s) RT min 2V HISTORY: 64 years-old Male pointer acute pain of the right second finger COMPARISON: None TECHNIQUE: 3 views of the right second finger FINDINGS: Mild soft tissue swelling. No acute fracture, dislocation, osseous erosion or opaque foreign body. IMPRESSION: No acute fracture or dislocation. ACT 112: Negative or not required by law. The above report was generated using voice recognition software. It may contain grammatical, syntax or spelling errors. Electronically signed by: Juan Gonzalez M.D. 08/05/2024 5:55 PM Foot X-Ray 08/05/24 16:52 XR foot LT min 3V routine HISTORY: 64 years-old Male pain in arch, lump present acute pain of the plantar hindfoot. COMPARISON: None TECHNIQUE: 3 views of the right foot FINDINGS: Large plantar calcaneal enthesophyte. 1.4 cm chronic appearing corticated ossification of the dorsal midfoot. Midfoot subcortical cystic changes are noted without acute fracture, dislocation or osseous erosion. Mild diffuse soft tissue swelling. There is widening between the first and second cuneiforms which may be projectional. Mild to moderate osteoarthritis. IMPRESSION: 1. No acute fracture or dislocation. 2. Large plantar calcaneal enthesophyte. 3. Widening between the first and second cuneiforms may be projectional. Correlate with clinical exam findings to exclude age-indeterminate ligamentous injury. ACT 112: Negative or not required by law. The above report was generated using voice recognition software. It may contain grammatical, syntax or spelling errors. Electronically signed by: Juan Gonzalez M.D. 08/05/2024 6:01 PM Abdomen/Pelvis CT 08/05/24 18:[address] WITH IV CONTRAST CT DOSE: 1465.17 mGy.cm HISTORY: Acute generalized abdominal pain elevated lipase, DM TECHNIQUE: Multiaxial CT images of the abdomen and pelvis were performed following the IV administration of 90 cc of Optiray, A dose lowering technique was utilized adhering to the principles of ALARA. COMPARISON STUDY: 08/14/2020 FINDINGS: Coronary artery calcifications. There are numerous subcentimeter nodular consolidative foci of the lung bases measuring up to 10 mm on the left, new from prior exam. There is no pneumoperitoneum. Unremarkable spleen, pancreas and left adrenal gland. Soft tissue attenuating 1.8 cm right adrenal gland lesion is unchanged, likely benign. Mildly enlarged liver. Mass identified. Kidneys are within normal limits without hydronephrosis. Distended urinary bladder. Unremarkable prostate. Atherosclerosis of the aorta without aneurysm. Nonspecific mildly enlarged left inguinal chain lymph nodes measure up to 11 mm. No bowel collection. Moderate colonic fecal tension. Colonic diverticulosis. Normal appendix. Prior ventral abdominal wall herniorrhaphy with several small fat filled umbilical hernias. Mild nonspecific subcutaneous edema lower anterior abdominal wall, likely related to medicinal injection sites. Calcifications of the right adductor musculature. No acute fracture. IMPRESSION: 1. Small mostly subcentimeter nodular consolidative foci of the lung bases, likely infectious or inflammatory. Three-month follow-up chest CT recommended. 2. No bowel obstruction or bowel wall thickening. 3. No CT evidence of acute pancreatitis. 4. Moderate colonic fecal retention. 5. Colonic diverticulosis. ACT 112: Negative or not required by law. The above report was generated using voice recognition software. It may contain grammatical, syntax or spelling errors. Electronically signed by: Juan Gonzalez M.D. 08/05/2024 7:18 PM Discharge Plan Visit Data Chief Complaint: Swelling/Edema to Extremity Stated Complaint: LT FOOT LUMP, LT LEG SWOLLEN, BURN ON STOMACH ED Provider: Karen Ramirez Discharge Problem: Burn of abdominal wall, Hyperglycemia, Cellulitis of finger, right, Foot pain, left, Abdominal wall cellulitis Forms Stand Alone Forms: My [facility] Prescriptions Prescriptions: No Action aspirin 81 mg Tablet,Delayed Release (Dr/Ec) 81 mg PO DAILY insulin aspart U-100 [Novolog FlexPen U-100 Insulin] 100 unit/mL (3 mL) insulin pen 60 unit subcut BIDM Rx Instructions: Patient takes 60 UNITS WITH BREAKFAST, 60 UNITS WITH DINNER bupropion HCl 300 mg tablet extended release 24 hr 300 mg PO DAILY Jardiance 25 mg tablet 25 mg PO DAILY ascorbic acid (vitamin C) [Vitamin C] 500 mg Tablet 500 mg PO DAILY Multiple Vitamin-Minerals Tablet 1 tab PO DAILY tamsulosin 0.4 mg capsule 0.4 mg PO DAILY insulin glargine U-300 conc [Toujeo Max U-300 SoloStar] 300 unit/mL (3 mL) insulin pen 100 unit SUBCUT BID lisinopril 20 mg tablet 20 mg PO QAM sertraline 100 mg tablet 100 mg PO QAM spironolactone 25 mg Tablet 25 mg PO DAILY cyanocobalamin (vitamin B-12) 1,000 mcg capsule 1,000 mcg PO DAILY Qty: 30 0RF albuterol sulfate 90 mcg/actuation HFA aerosol inhaler 90 mcg INHALATION DAILY PRN (Reason: Wheezing) metformin 750 mg tablet extended release 24 hr 1,500 mg PO DAILY diclofenac sodium 75 mg tablet,delayed release (DR/EC) 75 mg PO BID Qty: 14 1RF carisoprodol [Soma] 350 mg tablet 350 mg PO QID PRN (Reason: muscle pain) Qty: 16 0RF silver sulfadiazine [SSD] 1 % cream 1 applic TOPICAL DAILY Arnuity Ellipta 100 mcg/actuation blister with device 100 mcg INHALATION DAILY Referrals Referrals: Willam Fofana DO [Primary Care Provider] -
[2024-08-05 17:56] LABS: INR 0.9 (0.9-1.1)
--- NOTE | 2024-08-05 17:57 | XRay Report ---
XR finger(s) RT min 2V HISTORY: 64 years-old Male pointer acute pain of the right second finger COMPARISON: None TECHNIQUE: 3 views of the right second finger FINDINGS: Mild soft tissue swelling. No acute fracture, dislocation, osseous erosion or opaque foreign body. IMPRESSION: No acute fracture or dislocation. ACT 112: Negative or not required by law. The above report was generated using voice recognition software. It may contain grammatical, syntax o r spelling errors. Electronically signed by: Juan Gonzalez M.D. 08/05/2024 5:55 PM
[2024-08-05 17:59] LABS: Albumin Globulin Ratio 1.1 (0.9-2); Albumin Level 3.3 gm/dl (3.4-5.0); BUN Creatinine Ratio 27.4 (10-20); Bilirubin,Total 0.4 mg/dl (0.2-1.0); Calcium 9.2 mg/dl (8.6-10.3); Creatinine Clr Calc Pharmacy 125.5 ml/min; Globulin 3.1 gm/dl (2.5-4.0); Magnesium 1.9 mg/dl (1.7-2.4); Potassium 4.1 mmol/L (3.5-5.1); Total Protein 6.4 gm/dl (6.0-8.3)
--- NOTE | 2024-08-05 17:59 | XRay Report ---
XR chest 1V portable HISTORY: 64 years-old Male sob acute shortness of breath COMPARISON: 05/27/2024 TECHNIQUE: AP view of the chest FINDINGS: Heart is mildly enlarged. Mild bibasilar atelectasis. No pneumothorax or pleural effusion. Spondyliti c spurring of the spine. IMPRESSION: No acute process. ACT 112: Negative or not required by law. The above report was generated using voice recognition software. It may contain grammatical, syntax o r spelling errors. Electronically signed by: Juan Gonzalez M.D. 08/05/2024 5:57 PM
--- NOTE | 2024-08-05 18:03 | XRay Report ---
XR foot LT min 3V routine HISTORY: 64 years-old Male pain in arch, lump present acute pain of the plantar hindfoot. COMPARISON: None TECHNIQUE: 3 views of the right foot FINDINGS: Large plantar calcaneal enthesophyte. 1.4 cm chronic appearing corticated ossification of the dorsal midfoot. Midfoot subcortical cystic changes are noted without acute fracture, dislocation or osseous erosion. Mild diffuse soft tissue swelling. There is widening between the first and second cuneiforms which may be projectional. Mild to moderate osteoarthritis. IMPRESSION: 1. No acute fracture or dislocation. 2. Large plantar calcaneal enthesophyte. 3. Widening between the first and second cuneiforms may be projectional. Correlate with clinical exam findings to exclude age-indeterminate ligamentous injury. ACT 112: Negative or not required by law. The above report was generated using voice recognition software. It may contain grammatical, syntax o r spelling errors. Electronically signed by: Juan Gonzalez M.D. 08/05/2024 6:01 PM
[2024-08-05] MEDS: DOXYCYCLINE HYCLATE 100 MG CAP PO STA (18:31)
[2024-08-05] MEDS: diphenhydrAMINE 50 MG/ML VIAL IV ONE (18:31)
[2024-08-05] MEDS: OPTIRAY 320 100ml IV ONE (19:04)
--- NOTE | 2024-08-05 19:20 | CT Scan Report ---
ABDOMEN AND PELVIS CT WITH IV CONTRAST CT DOSE: 1465.17 mGy.cm HISTORY: Acute generalized abdominal pain elevated lipase, DM TECHNIQUE: Multiaxial CT images of the abdomen and pelvis were performed following the IV administrat ion of 90 cc of Optiray, A dose lowering technique was utilized adhering to the principles of ALARA. COMPARISON STUDY: 08/14/2020 FINDINGS: Coronary artery calcifications. There are numerous subcentimeter nodular consolidative foci of the lung bases measuring up to 10 mm on the left, new from prior exam. There is no pneumoperitone um. Unremarkable spleen, pancreas and left adrenal gland. Soft tissue attenuating 1.8 cm right adrena l gland lesion is unchanged, likely benign. Mildly enlarged liver. Mass identified. Kidneys are withi n normal limits without hydronephrosis. Distended urinary bladder. Unremarkable prostate. Atheroscler osis of the aorta without aneurysm. Nonspecific mildly enlarged left inguinal chain lymph nodes measu re up to 11 mm. No bowel collection. Moderate colonic fecal tension. Colonic diverticulosis. Normal appendix. Prior v entral abdominal wall herniorrhaphy with several small fat filled umbilical hernias. Mild nonspecific subcutaneous edema lower anterior abdominal wall, likely related to medicinal injection sites. Calci fications of the right adductor musculature. No acute fracture. IMPRESSION: 1. Small mostly subcentimeter nodular consolidative foci of the lung bases, likely infectious or infl ammatory. Three-month follow-up chest CT recommended. 2. No bowel obstruction or bowel wall thickening. 3. No CT evidence of acute pancreatitis. 4. Moderate colonic fecal retention. 5. Colonic diverticulosis. ACT 112: Negative or not required by law. The above report was generated using voice recognition software. It may contain grammatical, syntax o r spelling errors. Electronically signed by: Juan Gonzalez M.D. 08/05/2024 7:18 PM
[2024-08-05] MEDS: NovoLIN-R INSULIN PER UNIT CHARGE IV STA (20:42)
[2024-08-05] MEDS: LACTATED RINGER'S 1,000 ML IV SCH (20:43)
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
[2024-08-05 22:26] LABS: Appearance Urine Clear (Clear); Bilirubin Urine Negative (Negative); Blood Urine Negative (Negative); Color Urine Yellow; Glucose Urine UA 3+ (Negative); Ketones Urine Negative (Negative); Leukocyte Esterase Urine Negative (Negative); Nitrite Urine Negative (Negative); Protein Urine Negative (Negative); Specific Gravity Urine 1.034 (1.000-1.030); Urobilinogen Urine Negative (Negative); pH Urine 6.5 (4.5-7.5)
[2024-08-06] MEDS ORDERED: PHARMACY GLYCEMIC MGMT CONSULT PRN (00:14)
[2024-08-06] MEDS ORDERED: GLUCAGON FOR INJ 1 MG VIAL SQ PRN (00:14)
[2024-08-06] MEDS ORDERED: ALBUTEROL HFA 8 GM INHALER INH PRN (00:14)
[2024-08-06] MEDS ORDERED: CARISOPRODOL 350 MG TABLET PO PRN (00:14)
[2024-08-06] MEDS ORDERED: GLUCOSE 10 TAB/TUBE PO PRN (00:14)
[2024-08-06] MEDS ORDERED: GLUCOSE 40% GEL 15 GM TUBE PO PRN (00:14)
[2024-08-06] MEDS ORDERED: POLYETHYLENE (MIRALAX) 17 GM PACK PO PRN (00:14)
[2024-08-06] MEDS ORDERED: DEXTROSE 50% 50 ML SYRINGE IV PRN (00:14)
[2024-08-06] MEDS ORDERED: NON-FORMULARY MEDICATION (Insulin Glargine U-300 Conc [Toujeo Max U-300 Solostar] 300 unit SQ SCH (00:14)
[2024-08-06] MEDS ORDERED: NITROGLYCERIN SL 0.4 MG/TAB TAB SL PRN (00:14)
[2024-08-06] MEDS ORDERED: CARBOHYDRATES FOR HYPOGLYCEMIA PO PRN (00:14)
[2024-08-06] MEDS: DAPTOmycin 400 MG in SYRINGE 0 ML IV SCH (02:56)
[2024-08-06] MEDS: INSULIN ASPART PER UNIT CHARGE SC SCH (02:57)
[2024-08-06] MEDS: SODIUM CHLORIDE 0.9% 1,000 ML IV SCH (02:57)
[2024-08-06 06:13] LABS: Basophils # (auto) 0.12 K/uL (0.00-0.20); Basophils % (auto) 1.1 %; Eosinophils % (auto) 4.6 %; Hematocrit (blood only) 46.9 % (42.0-52.0); Hemoglobin 15.7 g/dl (14.0-18.0); Immature Granulocytes # (auto) 0.05 K/uL (0.01-0.20); Immature Granulocytes % (auto) 0.5 %; Lymphocytes # (auto) 2.61 K/uL (1.20-3.40); Lymphocytes % (auto) 24.2 %; Mean Corpuscular Hemoglobin 28.9 pg (25.0-34.0); Mean Corpuscular Hgb Conc 33.5 g/dL (32.0-36.0); Mean Corpuscular Volume 86.2 fL (80.0-100.0); Mean Platelet Volume 9.5 fL (9.4-12.4); Monocytes # (auto) 0.65 K/uL (0.11-0.59); Neutrophils # (auto) 6.87 K/uL (1.40-6.50); Neutrophils % (auto) 63.6 %; Platelet Count 244 K/uL (130-400); RDW Coefficient of Variation 13.6 % (11.5-14.5); RDW Standard Deviation 42.5 fL (36.4-46.3); Red Blood Count 5.44 M/uL (4.70-6.10)
--- NOTE | 2024-08-06 07:31 | Electrocardiogram Report ---
Test Reason : Blood Pressure : */* mmHG Vent. Rate : 76 BPM Atrial Rate : 76 BPM P-R Int : 212 ms QRS Dur : 76 ms QT Int : 420 ms P-R-T Axes : 47 92 101 degrees QTcB Int : 472 ms Sinus rhythm with 1st degree A-V block with Premature atrial complexes Rightward axis Low voltage QRS Nonspecific ST abnormality Abnormal ECG When compared with ECG of 27-May-2024 10:23, No significant change was found Confirmed by Jerome Oneil ([id number]) on 08/06/2024 7:31:05 AM Referred By: REFERRED SELF Confirmed By: Jerome Oneil
[2024-08-06 07:41] LABS: Anion Gap 4 (3-11); BUN Creatinine Ratio 31.4 (10-20); Blood Urea Nitrogen 22 mg/dl (6-23); Calcium 8.7 mg/dl (8.6-10.3); Carbon Dioxide 30 mmol/L (21-32); Chloride 103 mmol/L (98-107); Creatinine Clr Calc Pharmacy 149.7 ml/min; Glucose 195 mg/dl (70-99(Fasting)); Sodium 137 mmol/L (136-145)
--- NOTE | 2024-08-06 08:03 | Ultrasound Report ---
ULTRASOUND BILATERAL LOWER EXTREMITY VENOUS CLINICAL HISTORY: Lower extremity swelling and erythema. Leg pain. COMPARISON STUDY: Left lower extremity venous ultrasound dated 09/04/2023. Right lower extremity veno us ultrasound dated 05/26/2023 TECHNIQUE: Real-time, grayscale, and color Doppler sonography of the deep veins of the right and left lower extremity was performed from the inguinal crease to the calf. Compression and augmentation wer e utilized. FINDINGS: There is no sonographic evidence of deep venous thrombosis identified in the right or left lower extremity. The common femoral, superficial femoral, and popliteal veins are patent and normally compressible bilaterally. The greater saphenous vein and the profunda femoris vein at the junction w ith the common femoral vein are clear in both legs. The visualized calf veins are patent bilaterally. Soft tissue edema is noted in both legs. IMPRESSION: There is no sonographic evidence of deep venous thrombosis identified in the right or lef t lower extremity. ACT 112: Negative or not required by law. Electronically signed by: Braulio Hopkins M.D. 08/06/2024 8:02 AM
[2024-08-06 08:30] LABS: Estimated Average Glucose 278 mg/dl; Hemoglobin A1C 11.3 % (4.5-5.6)
[2024-08-06] MEDS: SERTRALINE HCL 100 MG TABLET PO SCH (09:13)
[2024-08-06] MEDS: TAMSULOSIN HCL 0.4 MG CAP PO SCH (09:13)
[2024-08-06] MEDS: SPIRONOLACTONE 25 MG TAB PO SCH (09:13)
[2024-08-06] MEDS: CEROVITE ADV FORMULA TAB PO SCH (09:13)
[2024-08-06] MEDS: buPROPion XL 300 MG TABCR PO SCH (09:17)
[2024-08-06] MEDS: ASPIRIN 81 MG ECTAB PO SCH (09:17)
[2024-08-06] MEDS: CYANOCOBALAMIN (B-12) 500 MCG TABLET PO SCH (09:17)
[2024-08-06] MEDS: lisinopril 20 MG TAB PO SCH (09:18)
[2024-08-06] MEDS: ASCORBIC ACID 500 MG TAB PO SCH (09:18)
[2024-08-06] MEDS: FLUTICASONE FUROATE 100MCG 14 PUFFS/INHALER INH SCH (09:18)
[2024-08-06] MEDS: SILVER SULFADIAZINE 1% CR 50 GM JAR TOP SCH (09:19)
[2024-08-06] MEDS: INSULIN HUMAN NPH SC SCH ×2 (09:20→17:45)
[2024-08-06] MEDS: HEPARIN SOD 5,000 UNIT/0.5 ML VIAL SQ SCH (09:27)
--- NOTE | 2024-08-06 09:32 | Ultrasound Report ---
ULTRASOUND RIGHT LOWER EXTREMITY ARTERIAL CLINICAL HISTORY: Right leg pain. Discoloration. COMPARISON STUDY: Arterial ultrasound of the right lower extremity dated 05/26/2023. TECHNIQUE: Real-time grayscale and color Doppler sonography of the arteries of the right lower extrem ity is performed from the inguinal crease to the foot. Ankle-brachial indices were not assessed. FINDINGS: There are triphasic arterial waveforms in the common femoral artery with velocities measuri ng up to 133 cm/s. The profunda femoris artery is patent with velocities measuring up to 60 cm/s. The re are triphasic arterial waveforms throughout the superficial femoral and popliteal arteries. Veloci ties in the superficial femoral artery measure up to 134 cm per second, and velocities in the poplite al artery measure up to 103 cm per second. There is three-vessel runoff to the foot. Velocities in th e calf arteries measure up to 158 cm/s. The dorsalis pedis artery is patent with velocities measuring up to 54 cm/s. IMPRESSION: There is no sonographic evidence of high-grade stenosis or focal vessel cut off throughou t the arteries of the right lower extremity. Dictated: 08/06/2024 6:48 AM Transcribed: 08/06/2024 9:27 AM Michele [id number] [email or web address] Electronically signed by: Braulio Hopkins M.D. 08/06/2024 9:30 AM
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
[2024-08-06] MEDS ORDERED: diphenhydrAMINE Capsule 25 MG CAP PO PRN (09:58)
[2024-08-06] MEDS: CEFEPIME 2000MG 2,000 MG/20 ML SYR IV SCH (10:43)
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
[2024-08-07 06:33] LABS: Hematocrit (blood only) 44.3 % (42.0-52.0); Hemoglobin 15.1 g/dl (14.0-18.0); Mean Corpuscular Hgb Conc 34.1 g/dL (32.0-36.0); Mean Corpuscular Volume 85.2 fL (80.0-100.0); Mean Platelet Volume 9.6 fL (9.4-12.4); Platelet Count 224 K/uL (130-400); RDW Coefficient of Variation 13.5 % (11.5-14.5); RDW Standard Deviation 41.9 fL (36.4-46.3); White Blood Count 9.52 K/ul (4.8-10.8)
[2024-08-07 06:58] LABS: BUN Creatinine Ratio 28.8 (10-20); Calcium 8.2 mg/dl (8.6-10.3); Creatinine Clr Calc Pharmacy 159.5 ml/min; Potassium 3.9 mmol/L (3.5-5.1)
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
[2024-08-07] MEDS: ACETAMINOPHEN 325 MG TAB PO PRN (10:50)
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
--- NOTE | 2024-08-07 16:04 | CT Scan Report ---
CT foot LT wo con HISTORY: 64 years-old Male Charcot neuroarthropathy Chronic left foot pain. COMPARISON: CT left foot 08/05/2024. TECHNIQUE: Multiple axial CT images of the left foot were obtained without IV contrast. A dose loweri ng technique was used consistent with the principals of JACI. FINDINGS: Moderate-sized calcaneal enthesophytes. Multilevel joint space narrowing, severe within the second ta rsal metatarsal joint. There is pathologic widening of 8 mm between the bases of the first and second metatarsals. Moderate subcortical cystic changes within the midfoot. Chronic corticated ossification is noted dorsal to the second cuneiform. No acute displaced fracture or dislocation. There is no drainable fluid collections. Subcutaneous emphysema. Tendons and ligaments are not well e valuated by CT technique. IMPRESSION: 1. No acute fracture is identified. 2. Confirmation of the pathologic widening between the bases of the first and second metatarsal is co mpatible with age-indeterminate Lisfranc ligamentous injury. 3. Severe joint space narrowing of the second tarsal metatarsal joint. 4. Nonspecific subcutaneous edema. Differential considerations include cellulitis, venous stasis or l ymphedema. No abscess. ACT 112: Negative or not required by law. The above report was generated using voice recognition software. It may contain grammatical, syntax o r spelling errors. Dictated: 08/07/2024 2:51 PM Transcribed: 08/07/2024 3:15 PM Michele [id number] [email or web address] Electronically signed by: Juan Gonzalez M.D. 08/07/2024 4:03 PM
[2024-08-08 07:29] LABS: Hematocrit (blood only) 46.3 % (42.0-52.0); Hemoglobin 15.4 g/dl (14.0-18.0); Mean Corpuscular Hemoglobin 28.9 pg (25.0-34.0); Mean Corpuscular Hgb Conc 33.3 g/dL (32.0-36.0); Mean Corpuscular Volume 86.9 fL (80.0-100.0); Mean Platelet Volume 9.6 fL (9.4-12.4); Platelet Count 210 K/uL (130-400); RDW Coefficient of Variation 13.7 % (11.5-14.5); RDW Standard Deviation 43.3 fL (36.4-46.3); Red Blood Count 5.33 M/uL (4.70-6.10)
[2024-08-08 07:47] LABS: BUN Creatinine Ratio 23.4 (10-20); Calcium 8.4 mg/dl (8.6-10.3); Creatinine Clr Calc Pharmacy 163.7 ml/min; Phosphorus 2.5 mg/dl (2.5-4.9); Potassium 4.2 mmol/L (3.5-5.1)
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
[2024-08-08] MEDS: INSULIN HUMAN NPH SC SCH (18:03)
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
[2024-08-08] MEDS: DOXYCYCLINE HYCLATE 100 MG in DEXTROSE 5% MINI-B 100 ML IV SCH (20:14)
--- NOTE | 2024-08-08 21:32 | Podiatry Progress Note ---
Date of Service August 08, 2024 Assessment & Plan (1) Uncontrolled type 2 diabetes mellitus with hyperglycemia: (2) Diabetic neuropathic arthritis: (3) Diabetic peripheral neuropathy: Plan patient was examined and evaluated. - Third toe sharply debrided to healthy underlying skin with #15 blade. This was excisional, 1cm squared, to full thickness skin. - Should begin emollient cream and pumice stone to these calluses to prevent them worsening. - No advanced charcot changes, but should be vigilant. Educated on worsening possibilities. - Will sign off for now. No further intervention planned. No longstanding pedal concerns. - Can f/u outpatient for further callus care if warranted. Admission and Anticipated Discharge Date Admission Date: August 05, 2024 Subjective Pt seen at bedside. Still complains of feeling "sick" or "off". No new foot pain. Concerned that his calluses developed so quickly. Denies any injury or trauma, still. Was sleeping, but arousable, at lunchtime. Had CT yesterday. Review of Systems Constitutional: + fever and + malaise; no chills and no fatigue Eyes: no problem reported Ear, Nose, Mouth, Throat: no problem reported Respiratory: no problem reported Cardiovascular: + edema; no problem reported Gastrointestinal: no nausea, no vomiting and no problem reported Musculoskeletal: no problem reported Integumentary: + lesions, + dry skin and + nail changes Neurologic: + loss of sensation, + numbness and + pa resthesia; no generalized weakness Psychiatric: no problem reported Physical Exam Physical Exam: bilateral lower extremity exam: DP/PT pulses nonpalpable. Advanced atrophic changes noted to the skin. CFT is brisk to the digits. There is a well-circumscribed callus to the distal aspect of the right third toe. Sharply debrided, revealing healthy underlying skin. Further, he has a more broad distributed callus to the plantar medial longitudinal arch. Underlying this, there is palpable subluxed midtarsal joint. CT reveals only mild arthritic changes to the midtarsal joint, with asymmetric joint space narrowing and cystic changes to the bone. No subluxation or failure of longitudinal arch; unlikely to be progressing Charcot. Constitutional: WD/WN, vitals as above + ill appearing and + morbidly obese Eyes: PERRL, conjunctivae normal, anicteric sclerae ENMT: external ear and nose normal, oropharynx normal Neck: trachea midline, no thyromegaly normal visual inspection Respiratory: normal respiratory effort; no respiratory distress Cardiovascular: Rate/Rhythm: regular rate and regular rhythm Chest (Breasts): Chest: normal inspection of chest Gastrointestinal (Abdomen): Inspection/Auscultation: abdomen normal to inspection Percussion/Palpation: + abdomen tender and abdomen soft Musculoskeletal: no cyanosis or clubbing, extremities motor strength 5/5 Head/Neck/Chest: normocephalic and head atraumatic Extremities: extremities normal to inspection and + foot abnormality Skin: + skin atrophy, + dry skin and + nails d ystrophic; no ulcers Trauma: no evidence of skin trauma Neurologic: plantar reflexes intact bilaterally, moves all extremities and awake; + abnormal touch/pain/proprioception, + abnormal sensation to monofilament and no focal motor deficits Psychiatric: A+Ox3, euthymic affect Results & Data Results & Data Vital Signs (Past 12 Hours) Vital Signs Temp Pulse Pulse Resp BP BP Pulse Ox 08/08/24 19:18 36.3 C L 86 18 146/70 H 93 08/08/24 16:09 36.5 C 84 18 131/81 92 08/08/24 14:56 85 08/08/24 11:26 36.4 C L 90 18 138/82 101 H O2 Del Method 08/08/24 19:18 Room Air 08/08/24 16:09 Room Air 08/08/24 14:56 08/08/24 11:26 Room Air
[2024-08-09 10:06] LABS: Basophils # (auto) 0.07 K/uL (0.00-0.20); Basophils % (auto) 0.8 %; Eosinophils # (auto) 0.32 K/uL (0.00-0.50); Eosinophils % (auto) 3.7 %; Hematocrit (blood only) 48.1 % (42.0-52.0); Immature Granulocytes # (auto) 0.09 K/uL (0.01-0.20); Lymphocytes # (auto) 2.32 K/uL (1.20-3.40); Lymphocytes % (auto) 26.8 %; Mean Corpuscular Hemoglobin 28.7 pg (25.0-34.0); Mean Corpuscular Hgb Conc 33.3 g/dL (32.0-36.0); Mean Corpuscular Volume 86.4 fL (80.0-100.0); Mean Platelet Volume 9.3 fL (9.4-12.4); Monocytes # (auto) 0.67 K/uL (0.11-0.59); Monocytes % (auto) 7.7 %; Platelet Count 201 K/uL (130-400); RDW Coefficient of Variation 13.8 % (11.5-14.5); RDW Standard Deviation 43.5 fL (36.4-46.3); Red Blood Count 5.57 M/uL (4.70-6.10); White Blood Count 8.67 K/ul (4.8-10.8)
[2024-08-09 10:21] LABS: BUN Creatinine Ratio 21.5 (10-20); Calcium 8.6 mg/dl (8.6-10.3); Creatinine Clr Calc Pharmacy 161.8 ml/min; Potassium 4.5 mmol/L (3.5-5.1)
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
[2024-08-10 07:51] LABS: Basophils % (auto) 0.9 %; Eosinophils # (auto) 0.41 K/uL (0.00-0.50); Eosinophils % (auto) 3.8 %; Hematocrit (blood only) 49.5 % (42.0-52.0); Hemoglobin 16.9 g/dl (14.0-18.0); Immature Granulocytes # (auto) 0.09 K/uL (0.01-0.20); Immature Granulocytes % (auto) 0.8 %; Lymphocytes # (auto) 2.87 K/uL (1.20-3.40); Lymphocytes % (auto) 26.8 %; Mean Corpuscular Hemoglobin 29.1 pg (25.0-34.0); Mean Corpuscular Hgb Conc 34.1 g/dL (32.0-36.0); Mean Corpuscular Volume 85.3 fL (80.0-100.0); Mean Platelet Volume 9.4 fL (9.4-12.4); Monocytes # (auto) 0.79 K/uL (0.11-0.59); Monocytes % (auto) 7.4 %; Neutrophils # (auto) 6.46 K/uL (1.40-6.50); Neutrophils % (auto) 60.3 %; Platelet Count 234 K/uL (130-400); RDW Coefficient of Variation 13.7 % (11.5-14.5); RDW Standard Deviation 42.6 fL (36.4-46.3); White Blood Count 10.72 K/ul (4.8-10.8)
[2024-08-10 08:07] LABS: BUN Creatinine Ratio 21.9 (10-20); Calcium 8.8 mg/dl (8.6-10.3); Potassium 4.5 mmol/L (3.5-5.1)
[2024-08-10 08:08] VITALS: TEMP 97.5
[2024-08-10 11:48] VITALS: BP 113/72; PULSE 88; RESP 20; O2SAT 92
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
[2024-08-10] MEDS ORDERED: INSULIN HUMAN NPH SC SCH (16:30)
== END 2024-08-10 14:33 | disposition home health service (06) | DRG 603 ==
LOC: ED 15:54 → SUATTDRO 21:30 → 2N 21:30

== ENCOUNTER 2024-12-10 13:16 | Inpatient (IN) ==
--- OUTSIDE RECORDS SUMMARY | 2024-12-10 13:22 | External Medical Summary | Summary of Care ---
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 albuterol-ipratropium (Duoneb) inhalation solution 3 mL 3 mL, Nebulizer, ONCE, On 12/10/24 at 1345, For 1 dose, 3 mL = 0.5 mg ipratropium/ 2.5 mg albuterolIndications:Pneumonia of both lungs due to infectious organism, unspecified part of lung,Flu-like symptoms,Altered mental status, unspecified altered mental status type Given 12/10/2024 1:03 PM EST 3 mL documented in this encounter Care Teams Culture Media Laboratory Assistant Relationship Specialty Start Date End Date Willam Fofana DO [address] [place] [address] PCP - General Family Medicine 04/26/17 documented as of this encounter
--- OUTSIDE RECORDS SUMMARY | 2024-12-10 13:23 | External Medical Summary | Summary of Care ---
Author Name Unknown Organization [facility] Address [address] [facility] [place] [address] Phone [phone] Care Team Providers Care Business Management Manager Name Role Phone Willam Fofana DO Primary Care Provider [phone] Reason for Visit * Reason Onset Date Comments [facility]: Acute 12/06/2024 Encounter Details Date Type Department Care Team (Late st Contact Info) Description 12/06/2024 Telephone [facility] [address] [place] [phone] Edilma Méndez RN [address] [place] [facility] [place] [address] [facility]: Acute Allergies Active Allergy Reactions Criticality Noted Date Comments Amoxicillin-Pot Clavulanate Hives High 11/26/19 12 Sulfamethoxazole-Trimethopri m 02/07/2016 Insulin Glargine 01/21/2016 States he went in to CHF after one shot of insulin Other reaction(s): CHF Permethrin 04/27/2013 Shrimp Flavor Agent (Non-Screening) 04/27/2013 documented as of this encounter (statuses as of 12/06/2024) Medications VITAMIN C 500 MG PO TABS [...] hemoglobin A1c goal of less than 7.0% ([facility]) Inject 100 Units under the skin in the morning and 100 Units before bedtime. 60 mL 3 10/19/19 24 Active NovoLOG FlexPen ReliOn 100 UNIT/ML Subcutaneous Solution Pen-injector (insulin aspart)Indications :Type 2 diabetes mellitus with complication, with long-term current use of insulin ([facility]) INJECT 60 UNITS SUBCUTANEOUSLY WITH [...] hemoglobin A1c goal of less than 7.0% ([facility]) TAKE 1 TABLET BY MOUTH [...] neuropathy, with long-term current use of insulin ([facility]) Take 2 Tablets by mouth in the morning. 180 Tablet 3 05/25/20 24 Active Additional Information Patient taking differently: 750 mgOral Daily(AM), Reported on 11/28/2024 Albuterol Sulfate HFA 108 (90 Base) MCG/ACT Inhalation Aerosol SolutionIndication s:Wheezing Inhale 2 Puffs by mouth every 4 hours as needed for Wheezing. 18 g 5 05/30/20 24 Active Dexcom G6 Toxicologist DeviceIndications: DM type 2, not at goal ([facility]) Use as directed. E11.9 1 Each 06/02/20 24 Active Dexcom G6 SensorIndications: DM type 2, not at goal ([facility]) Use as directed. Change every 10 days 9 Each 3 5 3:19 PM EST 06/16/20 24 Active Dexcom G6 TransmitterIndicat ions:DM type 2, not at goal ([facility]) Use as directed. Change every 90 days E11.9 1 Each 3 06/16/20 24 Active Nitroglycerin 0.4 MG Sublingual Tablet Sublingual (Nitrostat)Indicat ions:Inferior myocardial infarction (HCC) Place 1 Tablet under the tongue as needed for Pain, Chest. May repeat 3 times. If chest pain continues, call 911. 25 Tablet 11 07/11/20 Active Additional Information Patient not taking.Reported on 11/28/2024 Sertraline HCl 100 MG Oral Tablet (Zoloft)Indication s:Moderate episode of recurrent major depressive disorder (HCC) TAKE 1 TABLET BY MOUTH IN THE MORNING 90 Tablet 3 09/15/20 24 Active Arnuity Ellipta 100 MCG/ACT Inhalation Aerosol Powder Breath Activated (fluticasone Furoate) INHALE 1 PUFF BY MOUTH IN THE MORNING 30 Each 5 11/12/19 25 Active documented as of this encounter (statuses as of 12/06/2024) Active Problems Problem Noted Date Diagnosed Date [...] as of this encounter (statuses as of 12/06/2024) Resolved Problems Problem Noted Date Diagnosed Date [...] as of this encounter (statuses as of 12/06/2024) Immunizations Name Administration Dates Next Due COVID-19 mRNA, LNP-s, No Pre serve, 2-Dose Series (DTVCast) 09/12/2021,12/18/2020,11/27/2020 COVID-19, MRNA-LNP, 24-25, P R, 30MCG/0.3ML, IM, 12YRS AND ABOVE (DTVCast-Comirnat) 11/07/2023 Hepatitis B, 20+ yrs 07/26/2015,03/01/2015,11/29 Pneumococcal Conjugate Vacci ne, 20-valent ([id number]) 12/22/2023,07/15/2022 Pneumococcal Polysaccharide PPV23 (Pneumovax) 02/26/2014 Seasonal [...] 08/15/2024 Does the household have a re lar [...] encounter Miscellaneous Notes * Telephone Encounter - Edilma Méndez RN - 12/06/2024 3:02 PM EST PC placed to pt. Received VM. Left message, reinforcing instructions to take Mucinex, use Nasal saline and sugar free cough gtts prn. Instructed on VM to call back if no improvement. PC scheduled for tomorrow. Edilma Méndez RN [facility] Intake [phone] * Telephone Encounter - Willam Fofana DO - 12/06/2024 1:51 PM EST I agree with the advice you gave and tell him to call for a visit if no better in a few days. If you think he needs a visit now that would be fine too. * Telephone Encounter - Edilma Méndez RN - 12/06/2024 12:17 PM EST [facility] human resources safety manager Acute Call Date: 12/06/2024 Time: 12:23 PM Name: Facundo Botello : 1960 PMH: DM Type II, PVD, Toxoplasmosis, Hep C, Bronchitis. Caller: Patient Facundo Botello is a 64 year old old male that is calling [facility] Intake to report: 3 day history of cough, nasal congestion and expectorating "chunks" of mucus. He reprts he thinks the mucus is a green color. Unknown if he has a temp. + fatigue. Not SOB, no H/A, body aches, N/V or diarrrhea, BS's are running high in the 300's but not uncommon for pt. He reports "I feel lousy.". Advised pt to check BS's more often while feeling sick. Nursing Assessment: Patient's chief complaint for this call: Other, describe Cough with green chunks of mucus. Pain Denies pain Baseline Assessment Able to performing ADLs at baseline (walking, daily tasks, etc.): Yes Chief Complaint is related to a chronic condition: Unknown Patient prescribed oxygen? No Patient has been ordered DME equipment (assistive devices, respiratory equipment, etc.): yes Describe DME devices: Diabetic supplies Patient is using DME device as directed: No, Waiting for Dexcom supplies . Medication Reconciliation: (See medication list) Received flu shot this season: Unknown Taking medication as ordered: Yes Medications ordered/taking to treat reason for call: No Heart failure symptoms: No COPD exacerbation symptoms: No Reinforcement Education: Get Mucinex 600 mg po BID Nasal Saline spray prn Increase fluids Check BS's at least QID Cough gtts prn. Call [facility] for worsening sxs. Will obtain any further recommendations and call you back. Treatment/Plan: (need to report) Level of call: Non-Acute Recommended treatment plan: Clinical advice given over the phone Referral(s) with current selections available: ticket marker Routing to [facility] and Care Team for further recommendations. PC scheduled. Edilma Méndez RN [facility] Intake [phone] documented in this encounter Plan of Treatment Upcoming Encounters Date Type Department Care Team (Latest Contact Info) Description 12/07/2024 10:15 AM EST Scheduled Telephone [facility] [place], [facility] [address] [place] [address] [facility], Nurse [facility] [place] [address] 12/08/2024 10:00 AM EST Home Visit [facility], [facility] [address] [facility] [place] [address] Rosie Price, RN [address] [place] [address] 12/29/2024 11:30 AM EDT Imaging Radiology [address] [place] [phone] 01/01/2025 10:00 AM EDT Home Visit [facility] [place], [facility] [address] [facility] [place] [address] Rosie Price, RN [address] [place] [address] 01/16/2025 8:00 AM EDT Office Visit Pharmacy, [facility] [address] [place] [phone] [place] [address] [place] [address] 01/24/2025 2:00 PM EDT Office Visit Urology, [place] [address] [place] [address] Gil Dejesus PA-C [address] [place] [address] 02/02/2025 10:15 AM EDT Office Visit [facility] [place], [place] [address] [place] [address] Mason Jean-Baptiste MD [address] [place] [address] 02/07/2025 3:30 PM EDT Nutrition Services Nutrition & Weight Management, [facility] [address] [facility] [address] Mayuri Ernst RDN [address] [place] [address] 02/09/2025 11:40 AM EDT Office Visit Family Practice [facility] [address] [facility] [place] [address] Willam Fofana, DO [address] [facility] [place] [address] 02/28/2025 8:00 AM EDT Hospital Encounter ENDO [facility], Endoscopy Room [facility] [address] [facility] [place] [phone] Kandice Arevalo MD [address] [place] [address] 02/28/2025 8:00 AM EDT - 02/28/2025 8:30 AM EDT Surgery ENDO [facility], Endoscopy Room [facility] [address] [facility] [place] [address] Kandice Arevalo MD [address] [place] [address] COLONOSCOPY FLEXIBLE PROXIMAL DIAGNOSTIC Scheduled Procedures Name Priority Associated Diagnoses Date/Ti [...] 06/25/2021, Additional history exists GFR 08/01/2025 08/01/2024, 0402/2024, 11/13/2022, Additional history exists Diabetic Eye Exam [...] filedocumented as of this encounter Care Teams Business Management Manager Relationship Specialty Start Date End Date Willam Fofana DO [facility] [place] [address] PCP - General Family Medicine 04/26/17 documented as of this encounter
--- OUTSIDE RECORDS SUMMARY | 2024-12-10 13:23 | External Medical Summary | Summary of Care ---
Author Name Unknown Organization [facility] Address [address] [place] [address] Phone [phone] Care Team Providers Care Fitness Manager Name Role Phone Willam Fofana DO Primary Care Provider Reason for Visit * Reason Onset Date Comments Appointment 11/28/2024 Encounter Details Date Type Department Care Team (Late st Contact Info) Description 11/28/2024 Telephone [facility], [place] [facility] [address] [place] [address] Paris Jones, ALEJANDRA [address] [place] [address] Appointment (/) Allergies Active Allergy Reactions Criticality Noted Date Comments Amoxicillin-Pot Clavulanate Hives High 11/26/19 12 Sulfamethoxazole-Trimethopri m 02/07/2016 Insulin Glargine 01/21/2016 States he went in to CHF after one shot of insulin Other reaction(s): CHF Permethrin 04/27/2013 Shrimp Flavor Agent (Non-Screening) 04/27/2013 documented as of this encounter (statuses as of 11/28/2024) Medications VITAMIN C 500 MG PO TABS [...] morning. Active Furosemide 40 MG Oral Tablet (LASIX)Indication s:Non-ischemic cardiomyopathy (HCC) TAKE 2 TABLETS BY MOUTH IN THE MORNING AND 1 TABLET IN THE AFTERNOON 270 Tab 3 08/28/20 20 Active Additional Information Patient taking differently: 120 mg Daily(AM), TAKE 2 TABLETS BY MOUTH IN THE MORNING AND 1 TABLET IN THE AFTERNOONPatient takes 3 tabs in AM, Informant: Patient, Reported on 11/08/2024 BD Pen Needle Coby 2nd Gen 32G X 4 MM (Insulin Pen Needle) Use up to 4 times daily with insulin pens 300 Each 3 06/25/20 21 Active Metoprolol Succinate ER 50 MG Oral Tablet Extended Release 24 Hour (toPROL XL)Indications:No n-ischemic cardiomyopathy (HCC),Sinus tachycardia Take 1 tablet by mouth twice daily 180 Tablet 3 10/28/19 22 Active Spironolactone 25 MG Oral Tablet (Aldactone)Indica tions:Non-ischemi c cardiomyopathy (HCC),HTN, goal below 130/80 Take 1 Tablet (25 mg) by mouth in the morning. 90 Tablet 3 08/20/20 22 Active Tamsulosin HCl 0.4 MG Oral Capsule (Flomax)Indicatio ns:Recurrent UTI Take 1 Capsule by mouth in the morning. 30 Capsule 11 09/28/20 23 Active Toujeo Max SoloStar 300 UNIT/ML Subcutaneous Solution Pen-injector (Insulin Glargine (2 Unit Dial))Indications :Type 2 diabetes mellitus with hemoglobin A1c goal of less than 7.0% ([facility]) Inject 100 Units under the skin in the morning and 100 Units before bedtime. 60 mL 3 10/19/19 24 Active NovoLOG FlexPen ReliOn 100 UNIT/ML Subcutaneous Solution Pen-injector (insulin aspart)Indication s:Type 2 diabetes mellitus with complication, with long-term current use of insulin ([facility]) INJECT 60 UNITS SUBCUTANEOUSLY WITH BREAKFAST, 20 units with lunch AND 60 WITH SUPPER 130 mL 1 12/22/19 24 Active buPROPion HCl ER (XL) 300 MG Oral Tablet Extended Release 24 Hour (Wellbutrin XL)Indications:Mo derate episode of recurrent major depressive disorder (HCC) TAKE 1 TABLET BY MOUTH IN THE MORNING 90 Tablet 3 04/26/20 24 Active Jardiance 25 MG Oral Tablet (Empagliflozin)In dications:Type 2 diabetes mellitus with hemoglobin A1c goal [...] Oral Tablet Extended Release 24 Hour (Glucophage XR)Indications:Ty pe 2 diabetes mellitus with diabetic neuropathy, with long-term current use of insulin (HCC) Take 2 Tablets by mouth in the morning. 180 Tablet 3 05/25/20 24 Active Albuterol Sulfate HFA 108 (90 Base) MCG/ACT Inhalation Aerosol SolutionIndicatio ns:Wheezing Inhale 2 Puffs by mouth every 4 hours as needed for Wheezing. 18 g 5 05/30/20 24 Active Dexcom G6 Civil Engineering Intern DeviceIndications :DM type 2, not at goal ([facility]) Use as directed. E11.9 1 Each 06/02/20 24 Active Dexcom G6 SensorIndications :DM type 2, not at goal ([facility]) Use as directed. Change every 10 days 9 Each 3 4 11:22 AM EST 06/16/20 24 Active Dexcom G6 TransmitterIndica tions:DM type 2, not at goal ([facility]) Use as directed. Change every 90 days E11.9 1 Each 3 06/16/20 24 Active Nitroglycerin 0.4 MG Sublingual Tablet Sublingual (Nitrostat)Indica tions:Inferior myocardial infarction (HCC) Place 1 Tablet under the tongue as needed for Pain, Chest. May repeat 3 times. If chest pain continues, call 911. 25 Tablet 11 07/11/20 24 Active Additional Information Patient not taking.Reported on 10/18/2024 Sertraline HCl 100 MG Oral Tablet (Zoloft)Indicatio ns:Moderate episode of recurrent major depressive disorder (HCC) TAKE 1 TABLET BY MOUTH IN THE MORNING 90 Tablet 3 09/15/20 24 Active Arnuity Ellipta 100 MCG/ACT Inhalation Aerosol Powder Breath Activated (fluticasone Furoate) INHALE 1 PUFF BY MOUTH IN THE MORNING 30 Each 5 11/12/19 25 Active documented as of this encounter (statuses as of 11/28/2024) Active Problems Problem Noted Date Diagnosed Date [...] as of this encounter (statuses as of 11/28/2024) Resolved Problems Problem Noted Date Diagnosed Date [...] as of this encounter (statuses as of 11/28/2024) Immunizations Name Administration Dates Next Due COVID-19 mRNA, LNP-s, No Pre serve, 2-Dose Series ([employer]) 09/12/2021,12/18/2020,11/27/2020 COVID-19, MRNA-LNP, 24-25, P R, 30MCG/0.3ML, IM, 12YRS AND ABOVE ([facility] 11/07/2023 Hepatitis B, 20+ yrs 07/26/2015,03/01/2015,11/29 Pneumococcal Conjugate Vacci ne, 20-valent ([id number]) 12/22/2023,07/15/2022 Pneumococcal Polysaccharide PPV23 (Pneumovax) 02/26/2014 Seasonal [...] encounter Miscellaneous Notes * Telephone Encounter - Paris Jones OSA - 11/28/2024 8:22 AM EST Incoming call to confirm he will be there for 10 am visit but his phone will be shut down dt problems he is having with it and wanted RNCM to know he is home and waiting documented in this encounter Plan of Treatment Upcoming Encounters Date Type Department Care Team (Latest Contact Info) Description 11/28/2024 10:00 AM EST [facility] [place] [address] Rosie Price, RN [address] [place] [address] 12/29/2024 11:30 AM EDT Imaging Radiology [facility] [place] [phone] 01/16/2025 8:00 AM EDT Office Visit Pharmacy, [facility] [address] [place] [phone] Tahir [address] [address] 01/24/2025 2:00 PM EDT Office Visit Urology, [place] [address] [place] [address] Gil Dejesus PA-C [address] [place] [address] 02/02/2025 10:15 AM EDT Office Visit [facility] [address] [place] [address] Mason Jean-Baptiste MD [address] [place] [address] 02/07/2025 3:30 PM EDT Nutrition Services Nutrition & Weight Management, [facility] [address] [facility] [place] [address] Mayuri Ernst RDN 132 [facility] [place] [address] 02/09/2025 11:40 AM EDT Office Visit Family Practice [facility] [address] [place] [address] Willam Fofana, DO [address] [place] [address] 02/28/2025 8:00 AM EDT Hospital Encounter ENDO [facility], Endoscopy Room [facility] [address] [place] [phone] Kandice Arevalo MD [address] [place] [address] 02/28/2025 8:00 AM EDT - 02/28/2025 8:30 AM EDT Surgery ENDO [facility], Endoscopy Room [facility] [address] [place], [place] [phone] Kandice Arevalo MD [address] [place] [address] COLONOSCOPY FLEXIBLE PROXIMAL DIAGNOSTIC Scheduled Procedures Name [...] filedocumented as of this encounter Care Teams Fitness Manager Relationship Specialty Start Date End Date Willam Foafna DO [address] [place] [address] PCP - General Family Medicine 04/26/17 documented as of this encounter
--- OUTSIDE RECORDS SUMMARY | 2024-12-10 13:23 | External Medical Summary | Summary of Care ---
Author Name Unknown Organization [facility] Address [address] [facility] [place] [address] Phone [phone] Care Team Providers Care Sliver Lap Machine Tender Name Role Phone Willam Fofana DO Primary Care Provider [phone] Reason for Visit * Reason Onset Date Comments [facility]: Acute 12/06/2024 Encounter Details Date Type Department Care Team (Late st Contact Info) Description 12/06/2024 Telephone [facility], [facility] [address] [facility] [place] [phone] Edilma Méndez RN [address] [place] [facility] [place] [address] [facility]: Acute Allergies Active [...] A1c goal of less than 7.0% ([facility]) Inject 100 Units under the skin in the morning and 100 Units before bedtime. 60 mL 3 10/19/19 24 Active NovoLOG FlexPen ReliOn 100 UNIT/ML Subcutaneous Solution Pen-injector (insulin aspart)Indications :Type 2 diabetes mellitus with complication, with long-term current use of insulin ([facility]) INJECT 60 UNITS SUBCUTANEOUSLY WITH [...] A1c goal of less than 7.0% ([facility]) TAKE 1 TABLET BY MOUTH IN [...] with long-term current use of insulin ([facility]) Take 2 Tablets by mouth in the morning. 180 Tablet 3 05/25/20 24 Active Additional Information Patient taking differently: 750 mgOral Daily(AM), Reported on 11/28/2024 Albuterol Sulfate HFA 108 (90 Base) MCG/ACT Inhalation Aerosol SolutionIndication s:Wheezing Inhale 2 Puffs by mouth every 4 hours as needed for Wheezing. 18 g 5 05/30/20 24 Active Dexcom G6 Inside Wirer DeviceIndications: DM type 2, not at goal ([facility]) Use as directed. E11.9 1 Each 06/02/20 24 Active Dexcom G6 SensorIndications: DM type 2, not at goal ([facility]) Use as directed. Change every 10 days 9 Each 3 5 3:19 PM EST 06/16/20 24 Active Dexcom G6 TransmitterIndicat ions:DM type 2, not at goal ([facility]) Use as directed. Change every 90 [...] goal of less than 7.0% 06/05/2020 [place] (myocardial infarction) 09/25/2019 Type 2 diabetes mellitus [...] mRNA, LNP-s, No Pre serve, 2-Dose Series (US PREVENTIVE MEDICINE) 09/12/2021,12/18/2020,11/27/2020 COVID-19, MRNA-LNP, 24-25, P R, 30MCG/0.3ML, IM, 12YRS AND ABOVE (US PREVENTIVE MEDICINE-Comirnat) 11/07/2023 Hepatitis B, 20+ yrs 07/26/2015,03/01/2015,11/29 Pneumococcal Conjugate Vacci ne, 20-valent ([id number]) 12/22/2023,07/15/2022 Pneumococcal Polysaccharide PPV23 (Pneumovax) 02/26/2014 Seasonal [...] PC scheduled for tomorrow. Edilma Méndez RN [facility] Intake [phone] * Telephone Encounter - Willam Fofana DO - 12/06/2024 1:51 PM EST I agree with the advice you gave and tell him to call for a visit if no better in a few days. If you think he needs a visit now that would be fine too. * Telephone Encounter - Edilma Méndez RN - 12/06/2024 12:17 PM EST [facility] pewter finisher Acute Call Date: 12/06/2024 Time: 12:23 PM Name: Facundo Botello : 1960 PMH: DM Type II, PVD, Toxoplasmosis, Hep C, Bronchitis. Caller: Patient Facundo Botello is a 64 year old old male that is calling [facility] Intake to report: 3 day [...] at least QID Cough gtts prn. Call [facility] for worsening sxs. Will obtain any further recommendations and call you back. Treatment/Plan: (need to report) Level of call: Non-Acute Recommended treatment plan: Clinical advice given over the phone Referral(s) with current selections available: plaster maker Routing to [facility] and Care Team for further recommendations. PC scheduled. Edilma Méndez RN [facility] Intake [phone] documented in this encounter Plan of Treatment Upcoming Encounters Date Type Department Care Team (Latest Contact Info) Description 12/07/2024 10:15 AM EST Scheduled Telephone [facility] [place], [facility] [address] [place] [address] [facility], [facility] [place] [address] 12/08/2024 10:00 AM EST Home Visit [facility], [facility] [address] [facility] [place] [address] Rosie Price, RN [address] [place] [address] 12/29/2024 11:30 AM EDT Imaging Radiology [address] [place] [phone] 01/01/2025 10:00 AM EDT Home Visit [facility] [place], [facility] [place] [address] Rosie Price, RN [address] [place] [address] 01/16/2025 8:00 AM EDT Office Visit Pharmacy, [facility] Christianson [address] [place] [phone] [place] [address] [place] [address] 01/24/2025 2:00 PM EDT Office Visit Urology, [place] [address] [place] [address] Gil Dejesus PA-C [address] [place] [address] 02/02/2025 10:15 AM EDT Office Visit [facility] [place], [place] [address] [place] [address] Mason Jean-Baptiste MD [address] [place] [address] 02/07/2025 3:30 PM EDT Nutrition Services Nutrition & Weight Management, [facility] [address] [facility] [address] Mayuri Ernst RDN [address] [place] [address] 02/09/2025 11:40 AM EDT Office Visit Family [facility] [address] [facility] [place] [address] Willam Fofana, DO [address] [facility] [place] [address] 02/28/2025 8:00 AM EDT Hospital Encounter ENDO [facility], Endoscopy Room [facility] 132 [facility] [place] [phone] Kandice Arevalo MD [address] [place] [address] 02/28/2025 8:00 AM EDT - 02/28/2025 8:30 AM EDT Surgery ENDO [facility], Endoscopy Room [facility] [address] [place] [address] Kandice Arevalo MD [address] [place] [address] COLONOSCOPY FLEXIBLE PROXIMAL DIAGNOSTIC Scheduled Procedures Name [...] filedocumented as of this encounter Care Teams Sliver Lap Machine Tender Relationship Specialty Start Date End Date Willam Fofana DO [facility] [place] [address] PCP - General Family Medicine 04/26/17 documented as of this encounter
--- OUTSIDE RECORDS SUMMARY | 2024-12-10 13:23 | External Medical Summary | Summary of Care ---
Author Name Unknown Organization [facility] [address] [facility] [address] Phone [phone] Care Team Providers Care Joint Terminal Attack Controller Name Role Phone Willam Fofana DO Primary Care Provider Encounter Details Date Type Department Care Team (Late st Contact Info) Description 11/28/2024 10:00 AM EST [facility], [facility] [address] [place] [address] Rosie Price, RN [address] [place] [address] Allergies Active Allergy Reactions Criticality Noted Date Comments Amoxicillin-Pot Clavulanate Hives High 11/26/19 12 Sulfamethoxazole-Trimethopri m 02/07/2016 Insulin Glargine 01/21/2016 States he went in to [facility] after one shot of insulin Other reaction(s): [...] tabs in AM, Informant: Patient, Reported on 11/28/2024 BD Pen Needle Coby 2nd Gen 32G [...] hemoglobin A1c goal of less than 7.0% ([facility]) Inject 100 Units under the skin in the morning and 100 Units before bedtime. 60 mL 3 10/19/19 24 Active NovoLOG FlexPen ReliOn 100 UNIT/ML Subcutaneous Solution Pen-injector (insulin aspart)Indication s:Type 2 diabetes mellitus with complication, with long-term current use of insulin ([facility]) INJECT 60 UNITS SUBCUTANEOUSLY WITH BREAKFAST, [...] g 5 05/30/20 24 Active Dexcom G6 [place] Operator DeviceIndications :DM type 2, not at goal ([facility]) Use as directed. E11.9 1 Each 06/02/20 24 Active Dexcom G6 SensorIndications :DM type 2, not at goal ([facility]) Use as directed. Change every 10 days 9 Each 3 4 11:22 AM EST 06/16/20 24 Active Dexcom G6 TransmitterIndica tions:DM type 2, not at goal ([facility]) Use [...] 11/28/2024 Sertraline HCl 100 MG Oral Tablet (Zoloft)Indicatio [...] goal of less than 7.0% 06/05/2020 Old [place] (myocardial infarction) 09/25/2019 Type 2 diabetes mellitus [...] mRNA, LNP-s, No Pre serve, 2-Dose Series (Baydin) 09/12/2021,12/18/2020,11/27/2020 COVID-19, MRNA-LNP, 24-25, P R, 30MCG/0.3ML, IM, 12YRS AND ABOVE (Baydin-Comirnaty) 11/07/2023 Hepatitis B, 20+ yrs 07/26/2015,03/01/2015,11/29 Pneumococcal Conjugate Vacci ne, 20-valent ([id number]) 12/22/2023,07/15/2022 Pneumococcal Polysaccharide PPV23 (Pneumovax) 02/26/2014 Seasonal [...] Sign Reading Time Taken Comments Blood Pressure 156/82 11/28/2024 9:51 AM EST Pulse 68 11/28/2024 9:51 AM EST Temperature 36.2 C (97.1 F) 11/28/2024 9:51 AM ES T Respiratory Rate 18 11/28/2024 9:51 AM EST Oxygen Saturation 95% 11/28/2024 9:51 AM EST Inhaled Oxygen Concentration - - Weight - - Height - - Body Mass Index - - documented in this encounter Progress Notes * Rosie Price, RN - 11/28/2024 9:35 AM EST Current Concerns: Pt seen for return RNCM visit Reports he is feeling good Saw MTM and no med changes noted Has dexcom cgm but does not have a transmitter when he went to change it so he called [facility] and is waiting to be delivered States he is doing fingersticks now and this morning was 257 - states that is good for him as he had two bowls of captain crunch late last night Most readings are in 400's and 500's Reports a tooth that has been hurting him on upper left side States he has not been to dentist in over 2 years States it comes and goes but hurts when biting down No redness or edema noted- eating and drinking during visit Called [employer] to find which dentist in the area is in network Info below supplied and given to patient to call and make appt [facility] - [address] [phone] [facility] - [address] [place] [phone] [facility] - [address] [facility] [address] [place] [phone] Meds reviewed. He does not take any meds twice a day, such as Metoprolol He is ordered Metformin 1500mg daily and only takes one tab of 750mg, states " I don't like them, heard too many bad things about it" - will notify MTM Pt also reports he likes to eat two bowls of pb capt crunch - gets two boxes at a time about 3x a week Advised on getting a cereal lower in sugar and carbs Physical Exam: Physical Exam Constitutional: General: He is not in acute distress. Appearance: He is obese. Cardiovascular: Rate and Rhythm: Normal rate and regular rhythm. Pulses: Normal pulses. Heart sounds: Normal heart sounds. Pulmonary: Effort: Pulmonary effort is normal. Breath sounds: Normal breath sounds. Abdominal: Palpations: Abdomen is soft. Skin: General: Skin is warm and dry. Neurological: Mental Status: He is alert and oriented to person, place, and time. Review of Systems: Review of Systems Constitutional: Negative. HENT: Positive for dental problem. Eyes: Negative. Respiratory: Positive for shortness of breath (TRUJILLO - at baseline). Cardiovascular: Negative. Gastrointestinal: Negative. Genitourinary: Positive for frequency. Musculoskeletal: Positive for arthralgias. Skin: Negative. Neurological: Negative. Psychiatric/Behavioral: Negative. Care Plan Goal Progress: Patient will maintain management & treatment regimen. (Not Progressing) Start: 10/18/24 Expected End: 01/11/25 Goal Note Not adherent with taking prescribed metformin and metoprolol doses GS - Patient will have a safe environment/required durable medical equipment to prevent falls or injury (Progressing) Start: 08/15/24 Expected End: 12/08/24 Patient will achieve & maintain fluid & electrolyte balance. (Progressing) Start: 10/18/24 Expected End: 01/11/25 Orders Placed: No orders of the defined types were placed in this encounter. Medications Given: Care Gaps: Care Gaps Care gaps closed this contact: Medications;Plan of Care (POC);Education (11/28/24 1001) Type of education: Clinical/disease (11/28/24 1001) Type of medication care gap: Medication adherence (11/28/24 1001) Type of plan of care (POC) care gap: Adjustment of plan of care (POC) and/or Integrated Care Plan (ICP);Education and review of exacerbation plan (11/28/24 1001) documented in this encounter Plan of Treatment Upcoming Encounters Date Type Department Care Team (Latest Contact Info) Description 12/29/2024 11:30 AM EDT Imaging Radiology [address] [place] [phone] 01/01/2025 10:00 AM EDT Home Visit [facility] [address] [place] [address] Rosie Price RN [address] [place] [address] 01/16/2025 8:00 AM EDT Office Visit Pharmacy, [facility] [place] [address] [facility] [address] [place] [address] 01/24/2025 2:00 PM EDT Office Visit Urology, [place] [address] [place] [address] Gil Dejesus PA-C [address] [place] [address] 02/02/2025 10:15 AM EDT Office Visit [facility] [place], [place] [address] [place] [address] Mason Jean-Baptiste MD 16 [place] [address] 02/07/2025 3:30 PM EDT Nutrition Services Nutrition & Weight Management, [facility] 132 [facility] [place] [address] Mayuri Ernst RDN 132 [facility] [place] [address] 02/09/2025 11:40 AM EDT Office Visit Family Practice [facility] [address] [facility] [place] [address] Willam Fofana, DO [address] [facility] [place], [place] [address] 02/28/2025 8:00 AM EDT Hospital Encounter ENDO [facility] [place] [phone] Kandice Arevalo MD [address] [place] [address] [place] [address] 02/28/2025 8:00 AM EDT - 02/28/2025 8:30 AM EDT Surgery ENDO O[facility]C, Endoscopy Room [facility] 132 [facility] [place] [phone] Kandice Arevalo MD [address] [...] filedocumented as of this encounter Care Teams Joint Terminal Attack Controller Relationship Specialty Start Date End Date Willam Fofana DO [address] [place] [address] PCP - General Family Medicine 04/26/17 documented as of this encounter
--- OUTSIDE RECORDS SUMMARY | 2024-12-10 13:23 | External Medical Summary | Summary of Care ---
Author Name Unknown Organization [facility] Address [address] [place] [address] Phone [phone] Care Team Providers Care Toolmaker Grade Three Name Role Phone Willam Fofana DO Primary Care Provider [phone] Reason for Visit * Reason Onset Date Comments [facility]: Maintenance 12/07/2024 Encounter Details Date Type Department Care Team (Late st Contact Info) Description 12/07/2024 Telephone [facility], [facility] [address] [facility] [place] [address] Jayleen Mosquera RN [address] [place] [address] [facility]: Maintenance Allergies Active Allergy Reactions Criticality Noted Date Comments Amoxicillin-Pot Clavulanate Hives High 11/26/19 12 Sulfamethoxazole-Trimethopri m 02/07/2016 Insulin Glargine 01/21/2016 States he went in to [facility] after one shot of insulin Other reaction(s): CHF Permethrin 04/27/2013 Shrimp Flavor Agent (Non-Screening) 04/27/2013 documented as of this encounter (statuses as of 12/07/2024) Medications VITAMIN C 500 MG PO TABS [...] of less than 7.0% ([facility]) Inject 100 Units under the skin in the morning and 100 Units before bedtime. 60 mL 3 10/19/19 24 Active NovoLOG FlexPen ReliOn 100 UNIT/ML Subcutaneous Solution Pen-injector (insulin aspart)Indications :Type 2 diabetes mellitus with complication, with long-term current use of insulin ([facility]) INJECT 60 UNITS SUBCUTANEOUSLY WITH BREAKFAST, [...] of less than 7.0% ([facility]) TAKE 1 TABLET BY MOUTH IN [...] Patient reports taking it twice/ day. 05/12/20 Active B-12 1000 MCG Oral Tablet Extended Release Take 1,000 mcg by mouth in the morning. Active metFORMIN HCl ER 750 MG Oral Tablet Extended Release 24 Hour (Glucophage XR)Indications:Typ e 2 diabetes mellitus with diabetic neuropathy, with long-term current use of insulin ([facility]) Take 2 Tablets by mouth in the morning. 180 Tablet 3 05/25/20 24 Active Additional Information Patient taking differently: 750 mgOral Daily(AM), Reported on 11/28/2024 Albuterol Sulfate HFA 108 (90 Base) MCG/ACT Inhalation Aerosol SolutionIndication s:Wheezing Inhale 2 Puffs by mouth every 4 hours as needed for Wheezing. 18 g 5 05/30/20 24 Active Dexcom G6 Tariff Counsel DeviceIndications: DM type 2, not at goal ([facility]) Use as directed. E11.9 1 Each 06/02/20 24 Active Dexcom G6 SensorIndications: DM type 2, not at goal ([facility]) Use as directed. Change every 10 days 9 Each 3 5 3:19 PM EST 06/16/20 24 Active Dexcom G6 TransmitterIndicat ions:DM type 2, not at goal ([facility]) Use as directed. Change every 90 [...] as of this encounter (statuses as of 12/07/2024) Active Problems Problem Noted Date Diagnosed Date [...] as of this encounter (statuses as of 12/07/2024) Resolved Problems Problem Noted Date Diagnosed Date [...] as of this encounter (statuses as of 12/07/2024) Immunizations Name Administration Dates Next Due COVID-19 mRNA, LNP-s, No Pre serve, 2-Dose Series (Safer Minicabs) 09/12/2021,12/18/2020,11/27/2020 COVID-19, MRNA-LNP, 24-25, P R, 30MCG/0.3ML, IM, 12YRS AND ABOVE (PingCo.comComirnat) 11/07/2023 Hepatitis B, 20+ yrs 07/26/2015,03/01/2015,11/29 Pneumococcal Conjugate Vacci ne, 20-valent ([id number]) 12/22/2023,07/15/2022 Pneumococcal Polysaccharide PPV23 (Pneumovax) 02/26/2014 Seasonal [...] No 08/15/2024 Does the household have a veterans affairs medical centerr source of income? (Household - for ages [...] encounter Miscellaneous Notes * Telephone Encounter - Jayleen Mosquera RN - 12/07/2024 2:57 PM EST Left message on answering machine that [facility] RNCM would not be making acute HV tomorrow as patient was feeling better today, no answer, had to leave message on answering machine. Follow up call scheduled. BERNICE Claudio Registered Nurse Navigator Triage [facility] documented in this encounter Plan of Treatment Upcoming Encounters Date Type Department Care Team (Latest Contact Info) Description 12/08/2024 11:15 AM EST Scheduled Telephone [facility], [facility] [address] [place] [address] Region, Nurse [facility] [address] [place] [address] 12/29/2024 11:30 AM EDT Imaging Radiology [facility] [place] [phone] 01/01/2025 10:00 AM EDT Home Visit [facility], [facility] 132 [facility] [place] [address] Rosie Price RN 132 [facility] [place] [address] 01/16/2025 8:00 AM EDT Office Visit Pharmacy, [facility] [address] [place] [phone] [place], [facility] [address] [place] [address] 01/24/2025 2:00 PM EDT Office Visit Urology, [place] [address] [place] [address] Gil Dejesus PA-C [address] [place] [address] 02/02/2025 10:15 AM EDT [facility] [place] [place] [address] [place] [address] Mason Jean-Baptiste MD [address] [place] [address] 02/07/2025 3:30 PM EDT Nutrition Services Nutrition & Weight Management, [facility] [address] [place] [address] Mayuri Ernst, ANGELAN [address] [place] [address] 02/09/2025 11:40 AM EDT Office Visit Family [facility] [address] [place] [address] Willam Fofana DO 200 [facility] [place] [address] 02/28/2025 8:00 AM EDT Hospital Encounter ENDO [facility], Endoscopy Room [facility] [address] [place] [phone] Kandice Arevalo MD [address] [place] [phone] 02/28/2025 8:00 AM EDT - 02/28/2025 8:30 AM EDT Surgery ENDO [facility], Endoscopy Room [facility] 132 [facility] [place] [phone] Kandice Arevalo MD [address] [place] [id number] COLONOSCOPY FLEXIBLE PROXIMAL DIAGNOSTIC Scheduled Procedures Name [...] filedocumented as of this encounter Care Teams Toolmaker Grade Three Relationship Specialty Start Date End Date Willam Fofana DO [address] [place] [address] PCP - General Family Medicine 04/26/17 documented as of this encounter
--- OUTSIDE RECORDS SUMMARY | 2024-12-10 13:23 | External Medical Summary | Summary of Care ---
Author Name Unknown Organization [facility] Address [address] [facility] [address] Phone [phone] Care Team Providers Care Small Lot Operator Name Role Phone Willam Fofana DO Primary Care Provider [phone] Reason for Visit * Reason Onset Date Comments [facility]: Maintenance 11/28/2024 Encounter Details Date Type Department Care Team (Late st Contact Info) Description 11/28/2024 Telephone [facility] [address] [place] [address] Rosie Price RN [address] [place] [address] [facility]: Maintenance Allergies Active Allergy [...] hemoglobin A1c goal of less than 7.0% ([facility]) Inject 100 Units under the skin in the morning and 100 Units before bedtime. 60 mL 3 10/19/19 24 Active NovoLOG FlexPen ReliOn 100 UNIT/ML Subcutaneous Solution Pen-injector (insulin aspart)Indication s:Type 2 diabetes mellitus with complication, with long-term current use of insulin ([facility]) INJECT 60 UNITS SUBCUTANEOUSLY WITH BREAKFAST, [...] neuropathy, with long-term current use of insulin ([facility]) Take 2 Tablets by mouth in the morning. 180 Tablet 3 05/25/20 24 Active Additional Information Patient taking differently: 750 mgOral Daily(AM), Reported on 11/28/2024 Albuterol Sulfate HFA 108 (90 Base) MCG/ACT Inhalation Aerosol SolutionIndicatio ns:Wheezing Inhale 2 Puffs by mouth every 4 hours as needed for Wheezing. 18 g 5 05/30/20 24 Active Dexcom G6 Bar Hostess DeviceIndications :DM type 2, not at goal (HCC) Use as directed. E11.9 1 Each 06/02/20 24 Active Dexcom G6 SensorIndications :DM type 2, not at goal (HCC) Use [...] mRNA, LNP-s, No Pre serve, 2-Dose Series ([employer]) 09/12/2021,12/18/2020,11/27/2020 COVID-19, MRNA-LNP, 24-25, P R, 30MCG/0.3ML, IM, 12YRS AND ABOVE ([employer]-[facility]) 11/07/2023 Hepatitis B, 20+ yrs 07/26/2015,03/01/2015,11/29 Pneumococcal Conjugate Vacci ne, 20-valent ([id number]) 12/22/2023,07/15/2022 Pneumococcal Polysaccharide PPV23 (Pneumovax) 02/26/2014 Seasonal [...] encounter Miscellaneous Notes * Telephone Encounter - Lenka Magana, [facility] - 11/28/2024 12:46 PM EST Noted by MTM. Updating med list: Diabetic Medications: Toujeo Max (U300) 100 units in the AM; 100 units in the PM (2 unit increments) Novolog 60 units with breakfast and 60 units with dinner (noncompliant with lunch doses) Metformin 750 mg ER one tablet daily in the morning [not interested in increasing] Jardiance 25mg daily eGFR > 90 as of Jul 2024 Lenka Magana, PharmD, BCACP Clinical Pharmacist Medication Therapy Disease Management 11/28/2024, 12:47 PM * Telephone Encounter - Rosie Price, RN - 11/28/2024 10:31 AM EST FYI - bottles out med rec done at home. Pt does not take 1500mg of Metformin - He is only taking one tab of 750mg daily. Blood sugars continue to be in 400's and 500's. He did have a reading in the 200's this am but I checked his glucometer and the majority are very high. Continues to eat cereal high in sugar - states he gets two boxes of peanut butter captain crunch about 3x a week . Despite education he does not want to take more metformin so just wanted to let you know. documented in this encounter Plan of Treatment Upcoming Encounters Date Type Department Care Team (Latest Contact Info) Description 12/29/2024 11:30 AM EDT Imaging Radiology [address] [place] [phone] 01/01/2025 10:00 AM EDT [facility] Visit [facility] [place], [facility] [address] [place] [address] Rosie Price, RN [address] [place] [address] 01/16/2025 8:00 AM EDT Office Visit [facility] [place] [address] [place] [phone] [place] [address] 01/24/2025 2:00 PM EDT Office Visit Urology, [place] [address] [place] [address] Gil Dejesus PA-C [address] [place] [address] 02/02/2025 10:15 AM EDT [facility] [place] [place] [address] [place] [address] Mason Jean-Baptiste MD 16 [place] [address] 02/07/2025 3:30 PM EDT Nutrition Services Nutrition & Weight Management, [facility] 132 [facility] [place] [address] Mayuri Ernst RDN 132 [place] [address] 02/09/2025 11:40 AM EDT Office Visit Family Practice [facility] 200 [facility] [place] [address] Willam Fofana, DO 200 [facility] [place] [address] 02/28/2025 8:00 AM EDT Hospital Encounter ENDO O[facility], Endoscopy Room [facility] 132 [facility] [place] [phone] Kandice Arevalo MD [address] [place] [address] 02/28/2025 8:00 AM EDT - 02/28/2025 8:30 AM EDT Surgery ENDO O[facility], Endoscopy Room [facility] 132 [facility] [place] [phone] Kandice Arevalo MD [address] [place] [address] COLONOSCOPY FLEXIBLE PROXIMAL DIAGNOSTIC Scheduled Procedures Name [...] episode of recurrent major depressive disorder (HCC) Type 2 diabetes mellitus with hemoglobin A1c goal of less than 7.0% (HCC)- Primary Type 2 diabetes mellitus with complication, with long-term current use of insulin (HCC) History of colon polyps Personal history of colonic polyps documented in this encounter Care Teams Small Lot Operator Relationship Specialty Start Date End Date Willam Fofana DO [address] [place] [address] PCP - General Family Medicine 04/26/17 documented as of this encounter
--- OUTSIDE RECORDS SUMMARY | 2024-12-10 13:23 | External Medical Summary | Summary of Care ---
Author Name Unknown Organization [facility] Address [address] [place] [address] Phone [phone] Care Team Providers Care Avid Editor Name Role Phone Willam Fofana DO Primary Care Provider [phone] Reason for Visit * Reason Onset Date Comments [facility]: Maintenance 12/08/2024 Encounter Details Date Type Department Care Team (Late st Contact Info) Description 12/08/2024 11:15 AM EST Scheduled Telephone [facility], [facility] [address] [facility] [place] [address] [facility], Nurse [facility] [address] [facility] [place] [phone] Allergies Active Allergy Reactions Criticality Noted Date Comments Amoxicillin-Pot Clavulanate Hives High 11/26/19 12 Sulfamethoxazole-Trimethopri m 02/07/2016 Insulin Glargine 01/21/2016 States he went in to CHF after one shot of insulin Other reaction(s): CHF Permethrin 04/27/2013 Shrimp Flavor Agent (Non-Screening) 04/27/2013 documented as of this encounter (statuses as of 12/08/2024) Medications VITAMIN C 500 MG PO TABS [...] with long-term current use of insulin ([facility]) Take 2 Tablets by mouth in the morning. 180 Tablet 3 05/25/20 24 Active Additional Information Patient taking differently: 750 mgOral Daily(AM), Reported on 11/28/2024 Albuterol Sulfate HFA 108 (90 Base) MCG/ACT Inhalation Aerosol SolutionIndication s:Wheezing Inhale 2 Puffs by mouth every 4 hours as needed for Wheezing. 18 g 5 05/30/20 24 Active Dexcom G6 Risk Specialist DeviceIndications: DM type 2, not at goal ([facility]) Use as directed. E11.9 1 Each 06/02/20 24 Active Dexcom G6 SensorIndications: DM type 2, not at goal ([facility]) Use as directed. Change every 10 days 9 Each 3 5 3:19 PM EST 06/16/20 24 Active Dexcom G6 TransmitterIndicat ions:DM type 2, not at goal ([facility]) Use as directed. Change every [...] as of this encounter (statuses as of 12/08/2024) Active Problems Problem Noted Date Diagnosed Date [...] as of this encounter (statuses as of 12/08/2024) Resolved Problems Problem Noted Date Diagnosed Date [...] as of this encounter (statuses as of 12/08/2024) Immunizations Name Administration Dates Next Due COVID-19 mRNA, LNP-s, No Pre serve, 2-Dose Series ([employer]) 09/12/2021,12/18/2020,11/27/2020 COVID-19, MRNA-LNP, 24-25, P R, 30MCG/0.3ML, IM, 12YRS AND ABOVE ([employer]) 11/07/2023 Hepatitis B, 20+ yrs 07/26/2015,03/01/2015,11/29 Pneumococcal Conjugate Vacci ne, 20-valent ([id number]) 12/22/2023,07/15/2022 Pneumococcal Polysaccharide PPV23 (Pneumovax) 02/26/2014 Seasonal [...] No 08/15/2024 Does the household have a [facility] source of income? (Household [...] Telephone Encounter - Edilma Méndez RN - 12/08/2024 9:12 AM EST [facility] Telephonic Nurse Follow-Up Call [facility] Subprogram: No data was found Follow Up Call Type: Routine follow up call / Status Check Acute issue requiring follow-up call: Other: Cough and nasal congestion. Objective: 11/28/2024 9:51 AM 11/08/2024 2:33 PM 10/25/2024 3:26 PM 10/18/2024 9:50 AM 09/08/2024 12:52 PM VITALS ACROSS ENCOUNTERS BP 156/82 129/83 139/83 146/70 130/70 Pulse 68 86 101 64 76 Weight 129 kg BMI 42.32 BMI 42.3 kg/m2 New medication(s) added: Mucinex 600 mg po BID. Subjective: Condition Status: Received VM. Left message to call [facility] if sxs worsen Current Concerns: Pt was feeling improvement yesterday. cx for today. Disposition: Issue resolved. All appropriate follow up scheduled. Future Visits Scheduled: Future Appointments-next 60 days Date/Time Provider Specialty Dept Phone 12/08/2024 11:15 AM [facility], Nurse [facility] [phone] 12/29/2024 11:30 AM CT[facility] Radiology [phone] 01/01/2025 10:00 AM Rosie Price RN [facility] [phone] 01/16/2025 8:00 AM [facility] [phone] 01/24/2025 2:00 PM Gil Dejesus PA-C Urology [phone] 02/02/2025 10:15 AM Mason Jean-Baptiste MD Ophthalmology [phone] 02/07/2025 3:30 PM (Arrive by 3:15 PM) Mayuri Ernst RDN Gastroenterology [phone] 02/09/2025 11:40 AM (Arrive by 11:25 AM) Willam Fofana, DO Family Medicine [phone] Edilma Méndez RN documented in this encounter Plan of Treatment Upcoming Encounters Date Type Department Care Team (Latest Contact Info) Description 12/29/2024 11:30 AM EDT Imaging Radiology [address] [place] [phone] 01/01/2025 10:00 AM EDT [facility] Visit [facility] [place], [facility] [address] [place] [address] Rosie Price, RN [address] [place] [address] 01/16/2025 8:00 AM EDT Office Visit [facility], [facility] [address] [place] [phone] [facility] [address] [place] [address] 01/24/2025 2:00 PM EDT Office Visit Urology, [place] [address] [place] [address] Gil Dejesus PA-C [address] [place] [address] 02/02/2025 10:15 AM EDT [facility] [address] [place] [address] Mason Jean-Baptiste MD 16 [place] [address] 02/07/2025 3:30 PM EDT Nutrition Services Nutrition & Weight Management, [facility] 132 [facility] [place] [address] Mayuri Ernst RDN [address] [place] [address] 02/09/2025 11:40 AM EDT Office Visit Family Practice [facility] 200 [facility] [place], [place] [address] Willam Fofana, DO 200 [place] [address] 02/28/2025 8:00 AM EDT Hospital Encounter ENDO O[facility], Endoscopy Room [facility] [address] [place] [phone] Kandice Arevalo MD [address] [place] [address] 02/28/2025 8:00 AM EDT - 02/28/2025 8:30 AM EDT Surgery ENDO O[facility], Endoscopy Room [facility] 132 [facility] [place] [phone] Kandice Arevalo MD [address] [place] [address] COLONOSCOPY FLEXIBLE PROXIMAL DIAGNOSTIC Scheduled Procedures Name [...] filedocumented as of this encounter Care Teams Avid Editor Relationship Specialty Start Date End Date Willam Fofana DO [address] [place] [address] PCP - General Family Medicine 04/26/17 documented as of this encounter
--- OUTSIDE RECORDS SUMMARY | 2024-12-10 13:23 | External Medical Summary | Summary of Care ---
Author Name Unknown Organization [facility] Address [address] [place] [address] Phone [phone] Care Team Providers Care Surveillance Camera Technician Name Role Phone Willam Fofana DO Primary Care Provider Reason for Visit * Reason Onset Date Comments Other 12/06/2024 Encounter Details Date Type Department Care Team (Late st Contact Info) Description 12/06/2024 Telephone Pharmacy, [place] [address] [place] [address] [facility] [address] [place] [address] Other Allergies Active Allergy Reactions Criticality Noted Date [...] g 5 05/30/20 24 Active Dexcom G6 Folder Hand DeviceIndications :DM type 2, not at goal (HCC) Use as directed. E11.9 1 Each 06/02/20 24 Active Dexcom G6 SensorIndications :DM type 2, not at goal ([facility]) Use as directed. Change every 10 days 9 Each 3 4 11:22 AM EST 06/16/20 24 Active Dexcom G6 TransmitterIndica tions:DM type 2, not at goal ([facility] [...] mRNA, LNP-s, No Pre serve, 2-Dose Series ([employer]) 09/12/2021,12/18/2020,11/27/2020 COVID-19, MRNA-LNP, 24-25, P R, 30MCG/0.3ML, IM, 12YRS AND ABOVE ([employer]) 11/07/2023 Hepatitis B, 20+ yrs 07/26/2015,03/01/2015,11/29 Pneumococcal Conjugate Vacci ne, 20-valent ([id number]) 12/22/2023,07/15/2022 Pneumococcal Polysaccharide PPV23 (Pneumovax) 02/26/2014 Seasonal [...] Notes * Telephone Encounter - Lenka Magana, [facility] - 12/06/2024 10:24 AM EST Patient Phone Numbers Called and spoke to patient. He states [employer] told him 2 weeks ago that the transmitter was due to be shipped out and he still hasn't gotten any supplies. Advised he cancel any and all accounts with [employer] and we will use [employer] order for his dexcom supplies-- he has already gotten dexcom sensors from them in the past. He verbalized understanding. I will try to get the G6 transmitter overnightted for him. Lenka Magana, PharmD, [facility] Clinical Pharmacist Medication Therapy Disease Management 12/06/2024, 10:26 AM * Telephone Encounter - Grisel Shea PHARM Tech - 12/06/2024 9:35 AM EST Caller's name: Facundo Preferred call back number(OFFICE NUMBER FOR ): [phone] Reason for call: Pt calling in stating he has been trying to obtain a transmitter for his Dexcom 6 without success. He stated he has called [facility], who stated they had shipped his device, however he has yet to receive anything. Pt stated he has no transmitter, but he has about 6 sensors. Please advise. Thank you, Grisel Shea Chemical Supervisor [facility] ([facility]) 12/06/2024, 9:35 AM documented in this encounter Plan of Treatment Upcoming Encounters Date Type Department Care Team (Latest Contact Info) Description 12/29/2024 11:30 AM EDT Imaging Radiology [address] [place] [phone] 01/01/2025 10:00 AM EDT [facility] Visit [facility] [place], [facility] [address] [place] [address] Rosie Price, RN [address] [place] [address] 01/16/2025 8:00 AM EDT Office Visit Pharmacy, [place] [address] [place] [phone] [facility] [address] [place] [address] 01/24/2025 2:00 PM EDT Office Visit Urology, [place] [address] [place] [address] Gil Dejesus PA-C [address] [place] [address] 02/02/2025 10:15 AM EDT Office Visit [facility] [place], [place] [address] [place] [address] Mason Jean-Baptiste MD 16 [place] [address] 02/07/2025 3:30 PM EDT Nutrition Services Nutrition & Weight Management, [facility] 132 [facility] [place] [address] Mayuri Ernst RDN 132 [facility] [place] [address] 02/09/2025 11:40 AM EDT Office Visit Family Practice [facility] [place] [address] Willam Fofana, DO [address] [facility] [place] [address] 02/28/2025 8:00 AM EDT Hospital Encounter ENDO OSSC, Endoscopy Room [facility] [address] [place] [phone] Kandice Arevalo MD [address] [place] [address] [place] [id number] 02/28/2025 8:00 AM EDT - 02/28/2025 8:30 AM EDT Surgery ENDO O[facility], Endoscopy Room [facility] [address] [place] [phone] Kandice Arevalo MD [address] [place] [address] COLONOSCOPY FLEXIBLE PROXIMAL DIAGNOSTIC Scheduled Procedures [...] filedocumented as of this encounter Care Teams Surveillance Camera Technician Relationship Specialty Start Date End Date Willam Fofana DO [address] [place] [address] PCP - General Family Medicine 04/26/17 documented as of this encounter
--- OUTSIDE RECORDS SUMMARY | 2024-12-10 13:23 | External Medical Summary | Summary of Care ---
Author Name Unknown Organization [facility] Address [address] [place] [address] Phone [phone] Care Team Providers Care Concert Pianist Name Role Phone Willam Fofana DO Primary Care Provider [phone] Reason for Visit * Reason Onset Date Comments [facility]: Acute 12/06/2024 Encounter Details Date Type Department Care Team (Late st Contact Info) Description 12/06/2024 Telephone [facility] [address] [facility] [place] [phone] Edilma Méndez RN [address] [place] [facility] [place] [address] [facility]: Acute Allergies Active [...] g 5 05/30/20 24 Active Dexcom G6 Fish Machine Feeder DeviceIndications: DM type 2, not at goal ([facility]) Use as directed. E11.9 1 Each 06/02/20 24 Active Dexcom G6 SensorIndications: DM type 2, not at goal ([facility]) Use as directed. Change every 10 days 9 Each 3 5 3:19 PM EST 06/16/20 24 Active Dexcom G6 TransmitterIndicat ions:DM type 2, not at goal ([facility]) Use as directed. Change every [...] goal of less than 7.0% 06/05/2020 Old SD (myocardial infarction) 09/25/2019 Type 2 diabetes mellitus [...] mRNA, LNP-s, No Pre serve, 2-Dose Series ([employer]) 09/12/2021,12/18/2020,11/27/2020 COVID-19, MRNA-LNP, 24-25, P R, 30MCG/0.3ML, IM, 12YRS AND ABOVE ([employer]) 11/07/2023 Hepatitis B, 20+ yrs 07/26/2015,03/01/2015,11/29 Pneumococcal Conjugate Vacci ne, 20-valent ([id number]) 12/22/2023,07/15/2022 Pneumococcal Polysaccharide PPV23 (Pneumovax) 02/26/2014 Seasonal [...] PC scheduled for tomorrow. Edilma Méndez RN [facility] Intake [phone] * Telephone Encounter - Willam Fofana DO - 12/06/2024 1:51 PM EST I agree with the advice you gave and tell him to call for a visit if no better in a few days. If you think he needs a visit now that would be fine too. * Telephone Encounter - Edilma Méndez RN - 12/06/2024 12:17 PM EST [facility] director law enforcement Acute Call Date: 12/06/2024 Time: 12:23 PM Name: Facundo Botello : 1960 PMH: DM Type II, PVD, Toxoplasmosis, Hep C, Bronchitis. Caller: Patient Facundo Botello is a 64 year old old male that is calling [facility] Intake to report: 3 day [...] at least QID Cough gtts prn. Call [facility] for worsening sxs. Will obtain any further recommendations and call you back. Treatment/Plan: (need to report) Level of call: Non-Acute Recommended treatment plan: Clinical advice given over the phone Referral(s) with current selections available: commercial service technician Routing to [facility] and Care Team for further recommendations. PC scheduled. Edilma Méndez RN [facility] Intake [phone] documented in this encounter Plan of Treatment Upcoming Encounters Date Type Department Care Team (Latest Contact Info) Description 12/07/2024 10:15 AM EST Scheduled Telephone [facility] [place], [facility] [address] [place] [address] [facility], Nurse [facility] [place] [address] 12/08/2024 10:00 AM EST [facility] Visit [facility], [facility] 132 [facility] [place] [address] Rosie Price, RN [address] [place] [address] 12/29/2024 11:30 AM EDT Imaging Radiology [address] [place] [phone] 01/01/2025 10:00 AM EDT [facility] Visit [facility] [place], [facility] [place] [address] Rosie Price, RN [address] [place] [address] 01/16/2025 8:00 AM EDT Office Visit Pharmacy, [facility] [address] [place] [phone] [place] [address] [place] [address] 01/24/2025 2:00 PM EDT Office Visit Urology, [place] [address] [place] [address] Gil Dejesus PA-C [address] [place] [address] 02/02/2025 10:15 AM EDT Office Visit [facility] Eye [place], [place] [address] [place] [address] Mason Jean-Baptiste MD [address] [place] [address] 02/07/2025 3:30 PM EDT Nutrition Services Nutrition & Weight Management, [facility] [place] [address] Mayuri Ernst RDN [address] [place] [address] 02/09/2025 11:40 AM EDT [facility] 200 [facility] [place] [address] Willam Fofana, DO 200 [facility] [place] [address] 02/28/2025 8:00 AM EDT Hospital Encounter ENDO [facility], Endoscopy Room [facility] 132 [facility] [place] [phone] Kandice Arevalo MD [address] [place] [address] 02/28/2025 8:00 AM EDT - 02/28/2025 8:30 AM EDT Surgery ENDO [facility], Endoscopy Room [facility] [address] [place] [address] Kandice Arevalo MD [address] [place] [address] COLONOSCOPY FLEXIBLE PROXIMAL DIAGNOSTIC Scheduled Procedures Name [...] filedocumented as of this encounter Care Teams Concert Pianist Relationship Specialty Start Date End Date Willam Fofana DO [facility] [address] [place] [address] PCP - General Family Medicine 04/26/17 documented as of this encounter
--- OUTSIDE RECORDS SUMMARY | 2024-12-10 13:23 | External Medical Summary | Summary of Care ---
Author Name Unknown Organization [facility] Address [address] [facility] [address] Phone [phone] Care Team Providers Care Form Drafter Name Role Phone Willam Fofana DO Primary Care Provider [phone] Reason for Visit * Reason Onset Date Comments [facility]: Maintenance 12/07/2024 Encounter Details Date Type Department Care Team (Late st Contact Info) Description 12/07/2024 10:15 AM EST Scheduled Telephone [facility], [facility] [address] [facility] [place] [address] [facility], [facility] 132 [facility] [place] [address] Allergies Active Allergy Reactions Criticality Noted Date [...] goal of less than 7.0% ([facility]) Inject 100 Units under the skin in the morning and 100 Units before bedtime. 60 mL 3 10/19/19 24 Active NovoLOG FlexPen ReliOn 100 UNIT/ML Subcutaneous Solution Pen-injector (insulin aspart)Indications :Type 2 diabetes mellitus with complication, with long-term current use of insulin ([facility]) INJECT 60 UNITS SUBCUTANEOUSLY WITH [...] goal of less than 7.0% ([facility]) TAKE 1 TABLET BY MOUTH [...] long-term current use of insulin ([facility]) Take 2 Tablets by mouth in the morning. 180 Tablet 3 05/25/20 24 Active Additional Information Patient taking differently: 750 mgOral Daily(AM), Reported on 11/28/2024 Albuterol Sulfate HFA 108 (90 Base) MCG/ACT Inhalation Aerosol SolutionIndication s:Wheezing Inhale 2 Puffs by mouth every 4 hours as needed for Wheezing. 18 g 5 05/30/20 24 Active Dexcom G6 Supervisor Microbiology Technologists DeviceIndications: DM type 2, not at goal ([facility]) Use as directed. E11.9 1 Each 06/02/20 24 Active Dexcom G6 SensorIndications: DM type 2, not at goal ([facility]) Use as directed. Change every 10 days 9 Each 3 5 3:19 PM EST 06/16/20 24 Active Dexcom G6 TransmitterIndicat ions:DM type 2, not at goal ([facility]) Use as directed. Change every [...] goal of less than 7.0% 06/05/2020 Old [place] (myocardial infarction) 09/25/2019 Type 2 diabetes mellitus [...] mRNA, LNP-s, No Pre serve, 2-Dose Series (CoSchedule) 09/12/2021,12/18/2020,11/27/2020 COVID-19, MRNA-LNP, 24-25, P R, 30MCG/0.3ML, IM, 12YRS AND ABOVE (CoSchedule-Comirnaty) 11/07/2023 Hepatitis B, 20+ yrs 07/26/2015,03/01/2015,11/29 Pneumococcal Conjugate Vacci ne, 20-valent ([id number]) 12/22/2023,07/15/2022 Pneumococcal Polysaccharide PPV23 (Pneumovax) 02/26/2014 Seasonal [...] Telephone Encounter - Edilma Méndez RN - 12/07/2024 10:14 AM EST [facility] Telephonic Nurse Follow-Up Call [facility] Subprogram: No data was found Follow Up Call Type: 24 hour follow up Acute issue requiring follow-up call: Other: Cough, nasal congestion Objective: 11/28/2024 9:51 AM 11/08/2024 2:33 PM 10/25/2024 3:26 PM 10/18/2024 9:50 AM 09/08/2024 12:52 PM VITALS ACROSS ENCOUNTERS BP 156/82 129/83 139/83 146/70 130/70 Pulse 68 86 101 64 76 Weight 129 kg BMI 42.32 BMI 42.3 kg/m2 Remote Patient Monitoring: NONE Oxygen Needs: NO supplemental oxygen needs identified DME Needs: NO DME needs identified Medications: New medication(s) added: Mucinex 600mg po BID. Subjective: Condition Status: Improvement in symptoms but not at baseline Current Concerns: Pt reports he feels improvement with taking Mucinex. He is coughing up mucus more easily and feels better than yesterday. Instructed to call [facility] if sxs worsen. Disposition: Routed to [facility] and/or [facility] Care Team for further advice Future Visits Scheduled: Future Appointments-next 60 days Date/Time Provider Specialty Dept Phone 12/07/2024 10:15 AM [facility] [phone] 12/08/2024 10:00 AM Rosie Price RN [facility] [phone] 12/29/2024 11:30 AM CT1 [facility] Radiology [phone] 01/01/2025 10:00 AM Rosie Price RN [facility] [phone] 01/16/2025 8:00 AM Tahir Mekeshia [facility] [phone] 01/24/2025 2:00 PM Gil Dejesus PA-C Urology [phone] 02/02/2025 10:15 AM Mason Jean-Baptiste MD Ophthalmology [phone] 02/07/2025 3:30 PM (Arrive by 3:15 PM) Mayuri Ernst RDN Gastroenterology [phone] 02/09/2025 11:40 AM (Arrive by 11:25 AM) Willam Fofana, Family Medicine [phone] Edilma Méndez, MELANIE documented in this encounter Plan of Treatment Upcoming Encounters Date Type Department Care Team (Latest Contact Info) Description 12/08/2024 10:00 AM EST [facility] Visit [facility], [facility] [address] [facility] [place] [address] Rosie Price, RN [address] [place] [address] 12/29/2024 11:30 AM EDT Imaging Radiology [facility] [place] [phone] 01/01/2025 10:00 AM EDT [facility] Visit [facility], [facility] [place] [address] Rosie Price RN [address] [place] [address] 01/16/2025 8:00 AM EDT Office Visit Pharmacy, [address] [phone] [facility] [address] [place] [address] 01/24/2025 2:00 PM EDT Office Visit Urology, [place] [address] [place] [address] Gil Dejesus PA-C [address] [place] [address] 02/02/2025 10:15 AM EDT Office Visit [facility] [place], [place] [address] [place] [address] Mason Jean-Baptiste MD 16 [place] [address] 02/07/2025 3:30 PM EDT Nutrition Services Nutrition & Weight Management, [facility] 132 [facility] [place] [address] Mayuri Ernst RDN [address] [place] [address] 02/09/2025 11:40 AM EDT Office Visit Family Practice [facility] [place] [address] [place] [address] Willam Fofana, DO [address] [facility] [place] [address] 02/28/2025 8:00 AM EDT Hospital Encounter ENDO OSSC, Endoscopy Room [facility] [address] [place] [phone] Kandice Arevalo MD [address] [place] [id number] 02/28/2025 8:00 AM EDT - 02/28/2025 8:30 AM EDT Surgery ENDO OSSC, Endoscopy Room [facility] [address] [place] [phone] Kandice Arevalo MD [address] [place] [id number] COLONOSCOPY FLEXIBLE PROXIMAL DIAGNOSTIC Scheduled Procedures Name [...] filedocumented as of this encounter Care Teams Form Drafter Relationship Specialty Start Date End Date Willam Fofana DO [address] [place] [address] PCP - General Family Medicine 04/26/17 documented as of this encounter
--- OUTSIDE RECORDS SUMMARY | 2024-12-10 13:24 | External Medical Summary | Summary of Care ---
Author Name Unknown Organization [facility] Address [address] [facility] [address] Phone [phone] Care Team Providers Care Clerk To Justice Name Role Phone Willam Fofana DO Primary Care Provider Encounter Details Date Type Department Care Team (Late st Contact Info) Description 10/18/2024 10:00 AM EST [facility], [facility] [address] [place] [address] Rosie Price, RN [address] [place] [address] Allergies Active Allergy Reactions Criticality Noted Date Comments Amoxicillin-Pot Clavulanate Hives High 11/26/19 12 Sulfamethoxazole-Trimethopri m 02/07/2016 Insulin Glargine 01/21/2016 States he went in to [facility] after one shot of insulin Other reaction(s): CHF Permethrin 04/27/2013 Shrimp Flavor Agent (Non-Screening) 04/27/2013 documented as of this encounter (statuses as of 10/18/2024) Medications VITAMIN C 500 MG PO TABS [...] tabs in AM, Informant: Patient, Reported on 10/18/2024 BD Pen Needle Coby 2nd Gen 32G [...] Wheezing. 18 g 5 05/30/20 24 Active Arnuity Ellipta 100 MCG/ACT Inhalation Aerosol Powder Breath Activated (fluticasone Furoate) Inhale 1 Puff by mouth in the morning. 30 Each 5 05/31/20 24 Active Dexcom G6 [place] Operator DeviceIndications :DM type 2, not at [...] MORNING 90 Tablet 3 09/15/20 24 Active documented as of this encounter (statuses as of 10/18/2024) Active Problems Problem Noted Date Diagnosed Date [...] as of this encounter (statuses as of 10/18/2024) Resolved Problems Problem Noted Date Diagnosed Date [...] as of this encounter (statuses as of 10/18/2024) Immunizations Name Administration Dates Next Due COVID-19 mRNA, LNP-s, No Pre serve, 2-Dose Series (Bellstrike) 09/12/2021,12/18/2020,11/27/2020 COVID-19, MRNA-LNP, 24-25, P R, 30MCG/0.3ML, IM, 12YRS AND ABOVE (Bellstrike-Comirnaty) 11/07/2023 Hepatitis B, 20+ yrs 07/26/2015,03/01/2015,11/29 Pneumococcal Conjugate Vacci ne, 20-valent ([id number]) 12/22/2023,07/15/2022 Pneumococcal Polysaccharide PPV23 (Pneumovax) 02/26/2014 Seasonal [...] No 08/15/2024 Does the household have a [facility] source of income? (Household - for [...] 08/15/2024 Transportation Needs Answer Date Record ed READ ONLY Do you have troubl e getting a ride to medical visits or work? Never True 08/15/2024 Does your family have a hard [...] place to sleep at night? No 08/15/2024 READ ONLY Do you think you a re at risk of becoming homeless? No 08/15/2024 Does your family worry about paying [...] ages 0-17 years) Not on file 08/15/2024 Sex and Gender Information Value Date [...] Sign Reading Time Taken Comments Blood Pressure 146/70 10/18/2024 9:50 AM EST Pulse 64 10/18/2024 9:50 AM EST Temperature 35.9 C (96.7 F) 10/18/2024 9:50 AM ES T Respiratory Rate 18 10/18/2024 9:50 AM EST Oxygen Saturation 95% 10/18/2024 9:50 AM EST Inhaled Oxygen Concentration - - Weight - - Height - - Body Mass Index - - documented in this encounter Progress Notes * Rosie Price RN - 10/18/2024 9:45 AM EST Current Concerns: Pt seen for return RNCM visit He reports he is concerned with his ongoing urinary incontinence He is taking diuretics and has trouble getting to the toilet on time Does use a urinal at times but reports he has trouble getting that in time States he has been dealing with this "a long time" Does not like to wear depends but has tried incontinence pads He is interested in learning more if there is treatment or something to help TE sent to provider for further recommendations, possible referral to Urology Denies any other concerns at this time Pt checks blood sugar several times a day Reports they have been ranging in 180's -300 Has had a few over 400 Seeing MTM next week Physical Exam: Review of Systems: Review of Systems Constitutional: Negative. HENT: Negative. Eyes: Positive for visual disturbance (right eye). Respiratory: Negative. Cardiovascular: Negative. Gastrointestinal: Negative. Genitourinary: Negative. Urinary incontinence Musculoskeletal: Positive for arthralgias. Skin: Negative. Neurological: Negative. Psychiatric/Behavioral: Negative. Care Plan Goal Progress: GS - Patient will have a safe environment/required durable medical equipment to prevent falls or injury (Progressing) Start: 08/15/24 Expected End: 12/08/24 Orders Placed: No orders of the defined types were placed in this encounter. Medications Given: Care Gaps: Care Gaps Care gaps closed this contact: Education;Medications;Plan of Care (POC) (10/18/24 1012) Type of education: Clinical/disease (10/18/24 1012) Type of medication care gap: Medication adherence (10/18/24 1012) Type of plan of care (POC) care gap: Adjustment of plan of care (POC) and/or Integrated Care Plan (ICP);Education and review of exacerbation plan (10/18/24 1012) documented in this encounter Plan of Treatment Upcoming Encounters Date Type Department Care Team (Latest Contact Info) Description 10/26/2024 7:30 AM EST Office Visit Pharmacy, Tahir Christianson [address] [place] [phone] [facility] [address] [facility] [place] [address] 11/08/2024 2:30 PM EST Nutrition Services Nutrition & Weight Management, [facility] [address] [place] [address] Mayuri Ernst RDN 132 [facility] [place] [address] 11/28/2024 10:00 AM EST [facility] [address] [place] [address] Rosie Price, RN [address] [place] [address] 12/29/2024 11:30 AM EDT Imaging Radiology [address] [place] [address] 02/02/2025 10:15 AM EDT Office Visit [facility] 16 [place] [address] Mason Jean-Baptiste MD 16 [place] [address] 02/09/2025 11:40 AM EDT Office Visit Family Practice [facility] 200 [facility] [place], [place] [address] Willam Fofana, DO 200 [facility] [place], [place] [address] 02/28/2025 8:00 AM EDT Hospital Encounter ENDO OSSC, Endoscopy Room [facility] [address] [place] [phone] Kandice Arevalo MD [address] [place] [address] 02/28/2025 8:00 AM EDT - 02/28/2025 8:30 AM EDT Surgery ENDO OSSC, Endoscopy Room [facility] [address] [place] [phone] Kandice Arevalo MD [address] [place] [address] COLONOSCOPY FLEXIBLE PROXIMAL DIAGNOSTIC Scheduled Procedures [...] filedocumented as of this encounter Care Teams Clerk To Justice Relationship Specialty Start Date End Date Willam Fofana DO [address] [place] [address] PCP - General Family Medicine 04/26/17 documented as of this encounter
--- OUTSIDE RECORDS SUMMARY | 2024-12-10 13:24 | External Medical Summary | Summary of Care ---
Author Name Unknown Organization [facility] Address [address] [place] [address] Phone [phone] Care Team Providers Care Senior Oracle Soa Developer Name Role Phone Willam Fofana DO Primary Care Provider Reason for Visit * Reason Onset Date Comments STAIR Lung Nodule 10/05/2024 Encounter Details Date Type Department Care Team (Late st Contact Info) Description 10/05/2024 Telephone STAIR LUNG NODULE [address] [place], [place] [phone] Program, Stair [address] [place] [address] STAIR Lung Nodule Allergies Active Allergy Reactions Criticality Noted Date Comments Amoxicillin-Pot Clavulanate Hives High 11/26/19 12 Sulfamethoxazole-Trimethopri m 02/07/2016 Insulin Glargine 01/21/2016 States he went in to [facility] after one shot of insulin Other reaction(s): CHF Permethrin 04/27/2013 Shrimp Flavor Agent (Non-Screening) 04/27/2013 documented as of this encounter (statuses as of 10/05/2024) Medications VITAMIN C 500 MG PO TABS [...] tabs in AM, Informant: Patient, Reported on 08/31/2024 BD Pen Needle Coby 2nd Gen 32G [...] neuropathy, with long-term current use of insulin ([facility]) Take 2 Tablets by mouth in [...] Each 5 05/31/20 24 Active Dexcom G6 Programming Equipment Operator DeviceIndications :DM type 2, not at goal ([facility]) Use as directed. E11.9 1 Each 06/02/20 24 Active Dexcom G6 SensorIndications :DM type 2, not at goal ([facility]) Use as directed. Change every 10 [...] Active Additional Information Patient not taking.Reported on 08/31/2024 Sertraline HCl 100 MG Oral Tablet (Zoloft)Indicatio ns:Moderate episode of recurrent major depressive disorder (HCC) TAKE 1 TABLET BY MOUTH IN THE MORNING 90 Tablet 3 09/15/20 24 Active documented as of this encounter (statuses as of 10/05/2024) Active Problems Problem Noted Date Diagnosed Date [...] goal of less than 7.0% 06/05/2020 Old [place] (myocardial infarction) 09/25/2019 Type 2 diabetes mellitus [...] as of this encounter (statuses as of 10/05/2024) Resolved Problems Problem Noted Date Diagnosed Date [...] as of this encounter (statuses as of 10/05/2024) Immunizations Name Administration Dates Next Due COVID-19 mRNA, LNP-s, No Pre serve, 2-Dose Series (Joldit.com) 09/12/2021,12/18/2020,11/27/2020 COVID-19, MRNA-LNP, 24-25, P R, 30MCG/0.3ML, IM, 12YRS AND ABOVE (Joldit.com-Comirnaty) 11/07/2023 Hepatitis B, 20+ yrs 07/26/2015,03/01/2015,11/29 Pneumococcal Conjugate Vacci ne, 20-valent ([id number]) 12/22/2023,07/15/2022 Pneumococcal Polysaccharide PPV23 (Pneumovax) 02/26/2014 Seasonal [...] encounter Miscellaneous Notes * Telephone Encounter - Arleen Merrill LPN - 10/05/2024 2:32 PM EST Patient managed in STAIR Program for Pulmonary Nodule - deener added Tracking CL Finding - PCP documented in this encounter Plan of Treatment Upcoming Encounters Date Type Department Care Team (Latest Contact Info) Description 10/18/2024 10:00 AM EST [facility] [address] [place] [address] Rosie Price, RN [address] [place] [address] 10/26/2024 7:30 AM EST Office Visit Pharmacy, Tahir Palacios [address] [place] [phone] [facility] [address] [facility] [address] 11/08/2024 2:30 PM EST Nutrition Services Nutrition & Weight Management, [facility] [address] [place] [address] Mayuri Ernst RDN 132 [facility] [place] [address] 12/29/2024 11:30 AM EDT Imaging Radiology [facility]st [facility] [place] [address] 02/02/2025 10:15 AM EDT Office Visit [facility] 16 [place] [address] Mason Jean-Baptiste MD 16 [place] [address] 02/09/2025 11:40 AM EDT Office Visit Family [facility] [address] [place] [address] Willam Fofana, DO 200 [facility] [place], [place] [address] 02/28/2025 8:00 AM EDT Hospital Encounter ENDO OSSC, Endoscopy Room [facility] 132 [facility] [place] [phone] Kandice Arevalo MD [address] [place] [address] 02/28/2025 8:00 AM EDT - 02/28/2025 8:30 AM EDT Surgery ENDO OSSC, Endoscopy Room [facility] [place] [phone] Kandice Arevalo MD [address] [place] [address] COLONOSCOPY FLEXIBLE PROXIMAL DIAGNOSTIC Scheduled Procedures Name [...] filedocumented as of this encounter Care Teams Senior Oracle Soa Developer Relationship Specialty Start Date End Date Willam Fofana DO [address] [place] [address] PCP - General Family Medicine 04/26/17 documented as of this encounter
--- OUTSIDE RECORDS SUMMARY | 2024-12-10 13:24 | External Medical Summary | Summary of Care ---
Author Name Unknown Organization [facility] Address [address] [place] [address] Phone [phone] Care Team Providers Care Call Worker Person Name Role Phone Willam Fofana DO Primary Care Provider [phone] Reason for Referral * Evaluate & Treat - Unlimited Visits (Within 30 days (routine)) - Pending Review Specialty Diagnoses / Procedures Referred By Tammie muñiz Referred To Contact Urology Diagnoses Urge incontinence of urine Vasiliy Ocasio PA-C [address] [employer] [place] [address] Phone: tel: fax: Referral ID Status Reason Start Date Expiration Date Visits Requested Visits Authorized [id number] Pending Review Specialty Services Required 10/18/[phone] Question Answer Referral Priority Within 30 days (routine) [facility] this [facility] scheduled[facility] What is the patient being referred for? BPH Comments BPH with increased incontinence Reason for Visit * Reason Onset Date Comments [facility]: Maintenance 10/18/2024 Encounter Details Date Type Department Care Team (Late st Contact Info) Description 10/18/2024 Telephone [facility], [facility] [address] [employer] [place] [address] Rosie Price, RN [address] [employer] [place] [address] [facility]: Maintenance Allergies Active Allergy [...] derate episode of recurrent major depressive disorder (FORMERLY [...] hours as needed for Wheezing. 18 g 05/30/20 24 Active Arnuity Ellipta 100 MCG/ACT Inhalation Aerosol Powder Breath Activated (fluticasone Furoate) Inhale 1 Puff by mouth in the morning. 30 Each 5 05/31/20 24 Active Dexcom G6 Basket Operator DeviceIndications :DM type 2, not at [...] goal of less than 7.0% 06/05/2020 Old [place] (myocardial infarction) 09/25/2019 Type 2 diabetes mellitus [...] mRNA, LNP-s, No Pre serve, 2-Dose Series (Orate) 09/12/2021,12/18/2020,11/27/2020 COVID-19, MRNA-LNP, 24-25, P R, 30MCG/0.3ML, IM, 12YRS AND ABOVE (Orate-ComirnatOb Hospitalist Group) 11/07/2023 Hepatitis B, 20+ yrs 07/26/2015,03/01/2015,11/29 Pneumococcal Conjugate Vacci ne, 20-valent ([email or web address]) 12/22/2023,07/15/2022 Pneumococcal Polysaccharide PPV23 (Pneumovax) 02/26/2014 Seasonal [...] encounter Miscellaneous Notes * Telephone Encounter - Vasiliy Ocasio PA-C - 10/18/2024 2:17 PM EST Looks like he was previously seen by urology. I would recommended returning at this time. I will place a new referral for him. * Telephone Encounter - Rosie Price RN - 10/18/2024 9:48 AM EST Pt reports he is concerned with his ongoing [...] there is treatment or something to help Do you have any recommendations or should he be referred to urology? If so, he is agreeable. He is on Flomax, fyi Thanks! documented in this encounter Plan of Treatment Upcoming Encounters Date Type Department Care Team (Latest Contact Info) Description 10/26/2024 7:30 AM EST [address] [phone] [place] [phone] [facility] [address] 11/08/2024 2:30 PM EST Nutrition Services Nutrition & Weight Management, [facility] [address] [place] [address] Mayuri Ernst RDN [address] [place] [address] 11/28/2024 10:00 AM EST Home Visit [place] [facility] [place], [facility] [address] [place] [address] Rosie Price, RN [address] [place] [address] 12/29/2024 11:30 AM EDT Imaging Radiology [address] [facility] [place] [address] 02/02/2025 10:15 AM EDT Office Visit [facility] 16 [place] [address] Masno Jean-Baptiste MD 16 [place] [address] 02/09/2025 11:40 AM EDT Office Visit [facility] [address] [place] [address] Willam Fofana, [address] [place] [address] 02/28/2025 8:00 AM EDT Hospital Encounter ENDO OSSC, Endoscopy Room [facility] [address] [facility] [place] [phone] Kandice Arevalo MD [address] [place] [address] 02/28/2025 8:00 AM EDT - 02/28/2025 8:30 AM EDT Surgery ENDO OSSC, Endoscopy Room [facility] [place] [phone] Kandice Arevalo MD [address] [place] [address] COLONOSCOPY FLEXIBLE PROXIMAL DIAGNOSTIC Scheduled Procedures Name Priority Associated Diagnoses Date/Ti me COLONOSCOPY FLEXIBLE PROXIMAL DIAGNOSTIC Recall History of colon polyps 02/28/2025 8:00 AM EDT Scheduled Referrals Name Type Priority Associated Diagnoses Orde r Schedule ADULT/PEDS UROLOGY REFERRAL OP Referral Within 30 days (routine) Urge incontinence of urine Ordered: 10/18/2024 Health Maintenance Due Date Last Done Comments [...] episode of recurrent major depressive disorder (HCC) Urge incontinence of urine- Primary Urge incontinence History of colon polyps Personal history of colonic polyps documented in this encounter Care Teams Call Worker Person Relationship Specialty Start Date End Date Willam Fofana DO [address] [place] [address] PCP - General Family Medicine 04/26/17 documented as of this encounter
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
--- OUTSIDE RECORDS SUMMARY | 2024-12-10 13:24 | External Medical Summary ---
Author Name Unknown Address Unknown Organization : Laboratory Report Ordering Provider Test Date Status MELISSA PATEL 10/25/2024 15:42:00 Final Observation Date Value Abnormality Reference (Units ) Status Color of Urine by Auto 10/25/2024 15:42:00 Light Yellow Light Yellow, Yellow Final Clarity, Urine 10/25/2024 15:42:00 Clear Clear Final Glucose [Mass/volume] in Urine by Automated test strip 10/25/2024 15:42:00 500 Abnormal Negative (mg/dL) Final Bilirubin.total [Presence] in Urine by Automated test strip 10/25/2024 15:42:00 Negative Negative Final Ketones [Mass/volume] in Urine by Automated test strip 10/25/2024 15:42:00 Negative Negative (mg/dL) Final Specific gravity, Urine 10/25/2024 15:42:00 <=1.005 1.003-1.030 Final Hemoglobin [Presence] in Urine by Automated test strip 10/25/2024 15:42:00 Negative Negative Final pH, Urine 10/25/2024 15:42:00 5.5 5.0, 5.5, 6.0, 6.5, 7.0, 7.5 (units) Final Protein [Mass/volume] in Urine by Automated test strip 10/25/2024 15:42:00 Negative Negative (mg/dL) Final Urobilinogen, Urine 10/25/2024 15:42:00 0.2 0.2, 1.0 (mg/dL) Final Nitrite [Presence] in Urine by Automated test strip 10/25/2024 15:42:00 Negative Negative Final Leukocyte esterase [Presence] in Urine by Automated test strip 10/25/2024 15:42:00 Negative Negative Final Performing Location
--- OUTSIDE RECORDS SUMMARY | 2024-12-10 13:24 | External Medical Summary | Summary of Care ---
Author Name Unknown Organization [facility] Address [address] [place] [address] Phone [phone] Care Team Providers Care Plastics Engineer Name Role Phone Willam Fofana DO Primary Care Provider Reason for Visit * Reason Comments Dosage Adjustment In Person (Anticoag Cl inic) Diabetes Follow-Up Encounter Details Date Type Department Care Team (Late st Contact Info) Description 10/26/2024 7:30 AM EST Office Visit Pharmacy, [facility] [address] [place] [phone] [place], [facility] [address] [place] [address] Type 2 diabetes mellitus with hemoglobin A1c goal of less than 7.0% ([facility])*; Type 2 diabetes mellitus with complication, with long-term current use of insulin ([facility]) Allergies Active Allergy Reactions Criticality Noted Date Comments Amoxicillin-Pot Clavulanate Hives High 11/26/19 12 Sulfamethoxazole-Trimethopri m 02/07/2016 Insulin Glargine 01/21/2016 States he went in to CHF after one shot of insulin Other reaction(s): CHF Permethrin 04/27/2013 Shrimp Flavor Agent (Non-Screening) 04/27/2013 documented as of this encounter (statuses as of 10/26/2024) Medications VITAMIN C 500 MG PO TABS [...] goal of less than 7.0% ([facility]) Inject 100 Units under the skin in the morning and 100 Units before bedtime. 60 mL 3 10/19/19 24 Active NovoLOG FlexPen ReliOn 100 UNIT/ML Subcutaneous Solution Pen-injector (insulin aspart)Indication s:Type 2 diabetes mellitus with complication, with long-term current use of insulin ([facility]) INJECT 60 UNITS SUBCUTANEOUSLY WITH [...] long-term current use of insulin ([facility]) Take 2 Tablets by mouth [...] Each 5 05/31/20 24 Active Dexcom G6 Consumer Insight Analyst DeviceIndications :DM type 2, not at goal ([facility]) Use as directed. E11.9 1 Each 06/02/20 24 Active Dexcom G6 SensorIndications :DM type 2, not at goal ([facility]) Use as directed. Change every 10 days 9 Each 3 4 11:22 AM EST 06/16/20 24 Active Dexcom G6 TransmitterIndica tions:DM type 2, not at goal ([facility]) Use as directed. Change every [...] as of this encounter (statuses as of 10/26/2024) Active Problems Problem Noted Date Diagnosed Date [...] goal of less than 7.0% 06/05/2020 Old [place] (myocardial infarction) 09/25/2019 Type 2 diabetes mellitus [...] as of this encounter (statuses as of 10/26/2024) Resolved Problems Problem Noted Date Diagnosed Date [...] as of this encounter (statuses as of 10/26/2024) Immunizations Name Administration Dates Next Due COVID-19 mRNA, LNP-s, No Pre serve, 2-Dose Series ([employer]) 09/12/2021,12/18/2020,11/27/2020 COVID-19, MRNA-LNP, 24-25, P R, 30MCG/0.3ML, IM, 12YRS AND ABOVE ([employer]) 11/07/2023 Hepatitis B, 20+ yrs 07/26/2015,03/01/2015,11/29 Pneumococcal Conjugate Vacci ne, 20-valent ([id number]) 12/22/2023,07/15/2022 Pneumococcal Polysaccharide PPV23 (Pneumovax) 02/26/2014 Seasonal [...] No 08/15/2024 Does the household have a [facility] source of income? (Household - for [...] this encounter Progress Notes * Lenka Magana, [facility] - 10/26/2024 7:45 AM EST Images from the original note were not [...] 60 units with breakfast, 20 units with lunch not taking, 60 units with dinner Metformin 750 mg ER two tablets daily in the morning Jardiance 25mg daily Medication Injection Site: Abdomen Lifestyle: Diet: unchanged Glucose Review/SMBG: Readings obtained from patient device Hypoglycemia: Does your blood sugar go below 70 mg/dL? Yes, patient has lows when he doesn't eat high carb meals Hyperglycemia symptoms present: none Recent Labs Units 08/01/24 1051 01/24/24 1136 07/20/23 1118 HEMOGLOBIN A1C - [facility] % 11.1* 10.7* 10.9* Recent Labs Units 08/01/24 1051 01/24/24 1136 11/13/22 1540 ESTIMATED GLOMERULAR FILTRATION RATE - [facility] mL/min >90 >90 >90 CREATININE - [facility] mg/dL 0.6 0.9 0.8 HYPERTENSION: Patient on ACEi/ARB: yes BP Readings from Last 3 Encounters: 10/25/24 139/83 10/18/24 146/70 09/08/24 130/70 Blood pressure at goal: no HYPERLIPIDEMIA: Recent Labs Units 08/31/23 1356 LDL CHOLESTEROL (CALCULATED) - [facility] mg/dL 75 Does patient have clinical ASCVD? Yes, is patient LDL less than 55 mg/dL? No: need to discuss statin in future HEALTH MAINTENANCE REVIEW: Health Maintenance Due Topic Date Due Colorectal Cancer Screening 01/11/2024 COVID-19 Vaccine () 06/11/2024 ASSESSMENT & PLAN: ICD-10-CM 1. Type 2 diabetes mellitus with hemoglobin A1c goal of less than 7.0% ([facility]) E11.9 2. Type 2 diabetes mellitus with complication, with long-term current use of insulin ([facility]) E11.8 Z79.4 Considerations: - hx of noncompliance - takes all medications in the morning - hx of pancreatitis in 2015 and 2019 - allergy to lantus (glargine) - does not want to take any higher of a metformin dose BG Readings - Blood sugars uncontrolled. Very uncontrolled. Average is 320. Patient also having lowblood sugars that he then corrects with a quart of orange juice and half a box of captain crunch with milk. Reviewed the rule of 15s with the patient again. Medications - Reviewed current regimen, patient is reportedly mostly adherent to his regimen. He notes that he is not taking the lunch novolog because it doesn't work with his schedule. He gave himself his toujeo in clinic today, as well as 35 units of novolog because his sugar was 398 in clinic. GLPs not a great option due to patient's history of pancreatitis. Patient's insulin doses are likely able to be reduced if he complies with a low carb/low fat diet. His insulin doses are very high, and while this sometimes makes MTM think about an insulin pump, I do not have confidence that patient would be able to utilize an insulin pump closed loop system. He does not currently have guidance for what to do if his blood sugar is high but he is not eating anything (like in the clinic today). So I printed out a chart for him with CF 1:5 over 200. See bottom of this note for copy. Diet, Exercise, Lifestyle - Patient continues to eat high carb food and drinks . Discussed with patient that this is the driving factor of his diabetes. There are days in which his sugar is much better, and even having lows when he complies with a diabetic diet and lifestyle. Regrettably, I am not confident that a change will be made by patient. Patient is agreeable to SMBG with dexcom G7. Patient aware to contact clinic if any hypoglycemia before next visit. MEDICATION CHANGES: no change Diabetic Medications: Toujeo Max (U300) 100 units in the AM; 100 units in the PM (2 unit increments) Novolog 60 units with breakfast and 60 units with dinner (noncompliant with lunch doses) Metformin 750 mg ER two tablets daily in the morning Jardiance 25mg daily eGFR > 90 as of Jul 2024 HEALTH MAINTENANCE INTERVENTIONS: Labs: Up to Date Immunizations: Up to Date Foot Exam: Up to Date Eye Exam: Up to Date Annual Wellness Visit: Up to Date FOLLOW UP: Return to clinic in 12+ weeks 01/16/2025 I spent a total of 30-39 minutes (exact time 36 mins) on the date of service in preparation, delivery, and documentation of the care provided to Facundo Botello excluding any time spent in the performance of separately billed services. Lenka Magana, [facility] Clinical Pharmacist - [facility] 10/26/2024, 7:45 AM 10/26/2024 TREAT HIGHS: Novolog 1 unit for every 5 points above 200 Blood Sugar Insulin 250 10 255 11 260 12 265 13 270 14 275 15 280 16 285 17 290 18 295 19 300 20 305 21 310 22 315 23 320 24 325 25 330 26 335 27 340 28 345 29 350 30 355 31 360 32 365 33 370 34 375 35 documented in this encounter Plan of Treatment Upcoming Encounters Date Type Department Care Team (Latest Contact Info) Description 11/08/2024 2:30 PM EST Nutrition Services Nutrition & Weight Management, [facility] [address] [facility] [place] [address] Mayuri Ernst RDN [address] [facility] [place] [address] 11/28/2024 10:00 AM EST Home Visit [facility] [address] [facility] [place] [address] Rosie Price RN 132 [place] [address] 12/29/2024 11:30 AM EDT Imaging Radiology [facility] 1st [facility] [address] [facility] [place] [phone] 01/16/2025 8:00 AM EDT Office Visit Pharmacy, [facility] [address] [place] [phone] [place], [facility] [address] [place] [address] 01/24/2025 2:00 PM EDT Office Visit Urology, [place] [address] [place] [address] Gil Dejesus PA-C [address] [facility] [place] [address] 02/02/2025 10:15 AM EDT Office Visit [facility] [place], [place] [address] [place] [address] Mason Jean-Baptiste MD [address] [place] [address] 02/09/2025 11:40 AM EDT Office Visit Family Practice [facility] [place] [address] [place] [address] Willam Fofana DO [address] [place] [address] 02/28/2025 8:00 AM EDT Hospital Encounter ENDO [facility], Endoscopy Room [facility] [address] [facility] [place] [address] Kandice Arevalo MD [address] [place] [address] 02/28/2025 8:00 AM EDT - 02/28/2025 8:30 AM EDT Surgery ENDO [facility], Endoscopy Room [facility] 132 [facility] [place] [phone] Kandice Arevalo MD [address] [place] [id number] COLONOSCOPY FLEXIBLE PROXIMAL DIAGNOSTIC Scheduled Procedures Name [...] polyps documented in this encounter Care Teams Plastics Engineer Relationship Specialty Start Date End Date Willam Fofana DO [address] [place] [address] PCP - General Family Medicine 04/26/17 documented as of this encounter
--- OUTSIDE RECORDS SUMMARY | 2024-12-10 13:24 | External Medical Summary | Summary of Care ---
Author Name Unknown Organization [facility] Address [address] [place] [address] Phone [phone] Care Team Providers Care Didactic Instructor Name Role Phone MorenoWillam newton Yinka LU Primary Care Provider Encounter Details Date Type Department Care Team (Late st Contact Info) Description 10/30/2024 Population Health External Data Unspecified Department Allergies Active Allergy Reactions Criticality Noted Date Comments Amoxicillin-Pot Clavulanate Hives High 11/26/19 12 Sulfamethoxazole-Trimethopri m 02/07/2016 Insulin Glargine 01/21/2016 States he went in to CHF after one shot of insulin Other reaction(s): CHF Permethrin 04/27/2013 Shrimp Flavor Agent (Non-Screening) 04/27/2013 documented as of this encounter (statuses as of 10/30/2024) Medications VITAMIN C 500 MG PO TABS [...] TABLET IN THE AFTERNOON 270 Tab 3 11/18/20 20 Active Additional Information Patient taking differently: [...] hemoglobin A1c goal of less than 7.0% ([facility]) Inject 100 Units under the skin in the morning and 100 Units before bedtime. 60 mL 3 10/19/19 24 Active NovoLOG FlexPen ReliOn 100 UNIT/ML Subcutaneous Solution Pen-injector (insulin aspart)Indication s:Type 2 diabetes mellitus with complication, with long-term current use of insulin ([facility]) INJECT 60 UNITS SUBCUTANEOUSLY WITH [...] Each 5 05/31/20 24 Active Dexcom G6 Slip Presser DeviceIndications :DM type 2, not at goal [...] as of this encounter (statuses as of 10/30/2024) Active Problems Problem Noted Date Diagnosed Date [...] as of this encounter (statuses as of 10/30/2024) Resolved Problems Problem Noted Date Diagnosed Date [...] as of this encounter (statuses as of 10/30/2024) Immunizations Name Administration Dates Next Due COVID-19 mRNA, LNP-s, No Pre serve, 2-Dose Series ([employer]) 09/12/2021,12/18/2020,11/27/2020 COVID-19, MRNA-LNP, 24-25, P R, 30MCG/0.3ML, IM, 12YRS AND ABOVE ([employer]-Comirnat) 11/07/2023 Hepatitis B, 20+ yrs 07/26/2015,03/01/2015,11/29 Pneumococcal Conjugate Vacci ne, 20-valent ([id number]) 12/22/2023,07/15/2022 Pneumococcal Polysaccharide PPV23 (Pneumovax) 02/26/2014 Seasonal [...] EST Nutrition Services Nutrition & Weight Management, [facility] [address] [place] [address] Mayuri Ernst RDN [address] [place] [address] 11/28/2024 10:00 AM EST [facility] [address] [place] [address] Rosie Price RN [address] [place] [address] 12/29/2024 11:30 AM EDT Imaging Radiology [facility] 1st [facility] [address] [place] [phone] 01/16/2025 8:00 AM EDT Office Visit Pharmacy, [facility] [address] [place] [phone] [address] [place] [address] 01/24/2025 2:00 PM EDT Office Visit Urology, [place] [address] [place] [address] Gil Dejeuss PA-C [address] [place] [address] 02/02/2025 10:15 AM EDT Office Visit [facility] [place], [place] [address] [place] [address] Mason Jean-Baptiste MD [address] [place] [address] 02/09/2025 11:40 AM EDT Office Visit [facility] [address] [facility] [place] [address] Willam Fofana, DO [address] [facility] [place] [address] 02/28/2025 8:00 AM EDT Hospital Encounter ENDO O[facility], Endoscopy Room [facility] 132 [facility] [place] [phone] Kandice Arevalo MD [address] [place] [id number] 02/28/2025 8:00 AM EDT - 02/28/2025 8:30 AM EDT Surgery ENDO OSS, Endoscopy Room [facility] [address] [place] [phone] Kandice Arevalo MD [address] [place] [...] filedocumented as of this encounter Care Teams Didactic Instructor Relationship Specialty Start Date End Date Willam Fofana DO [facility] [place] [address] PCP - General Family Medicine 04/26/17 documented as of this encounter
--- OUTSIDE RECORDS SUMMARY | 2024-12-10 13:24 | External Medical Summary | Summary of Care ---
Author Name Unknown Organization [facility] Address [address] [place] [address] Phone [phone] Care Team Providers Care Statistical Clerk Name Role Phone Brody Dejesus DO Primary Care Provider [phone] Reason for Referral * Precert (Within 10 days (routine)) - Authorized Specialty Diagnoses / Procedures Referred By Contac t Referred To Contact Radiology Diagnoses Abnormal CT scan of lung Lung nodules Procedures CT CHEST WO CONTRAST CT CHEST WO CONTRAST Brody Dejesus DO [address] [place] [address] Phone: tel: fax: Referral ID Status Reason Start Date Expiration Date V isits Requested Visits Authorized [id number] Authorized 09/28/2024 999 999 Reason for Visit * Reason Onset Date Comments Test Results 09/20/2024 Unexpected or In determinate Encounter Details Date Type Department Care Team (Late st Contact Info) Description 09/20/2024 Telephone Laboratory, [place] [address] [place] [address] Brody Dejesus DO [address] [place] [id number] Test Results (Unexpected or Indeterminate) Allergies Active Allergy Reactions Criticality Noted Date Comments Amoxicillin-Pot Clavulanate Hives High 11/26/19 12 Sulfamethoxazole-Trimethopri m 02/07/2016 Insulin Glargine 01/21/2016 States he went in to CHF after one shot of insulin Other reaction(s): CHF Permethrin 04/27/2013 Shrimp Flavor 04/27/2013 documented as of this encounter (statuses as of 09/28/2024) Medications VITAMIN C 500 MG PO TABS [...] complication, with long-term current use of insulin ([facility]) INJECT 60 UNITS SUBCUTANEOUSLY WITH BREAKFAST, 20 units with lunch AND 60 WITH SUPPER 130 mL 1 12/22/19 24 Active buPROPion HCl ER (XL) 300 MG Oral Tablet Extended Release 24 Hour (Wellbutrin XL)Indications:Mo derate episode of recurrent major depressive disorder ([facility]) TAKE 1 TABLET BY MOUTH IN THE MORNING 90 Tablet 3 04/26/20 24 Active Jardiance 25 MG Oral Tablet (Empagliflozin)In dications:Type 2 diabetes mellitus with hemoglobin A1c goal of less than 7.0% ([facility]) TAKE 1 TABLET BY MOUTH IN THE [...] neuropathy, with long-term current use of insulin ([facility]) Take 2 Tablets by mouth in the [...] Each 5 05/31/20 24 Active Dexcom G6 Clothes Shaker DeviceIndications :DM type 2, not at goal ([facility]) Use as directed. E11.9 1 Each 06/02/20 24 Active Dexcom G6 SensorIndications :DM type 2, not at goal ([facility]) Use as directed. Change every 10 days 9 Each 3 4 11:22 AM EST 06/16/20 Active Dexcom G6 TransmitterIndica tions:DM type 2, [...] IN THE MORNING 90 Tablet 3 09/15/20 Active documented as of this encounter (statuses as of 09/28/2024) Active Problems Problem Noted Date Diagnosed Date [...] goal of less than 7.0% 06/05/2020 Old [place] (myocardial infarction) 09/25/2019 Type 2 diabetes mellitus [...] as of this encounter (statuses as of 09/28/2024) Resolved Problems Problem Noted Date Diagnosed Date [...] as of this encounter (statuses as of 09/28/2024) Immunizations Name Administration Dates Next Due COVID-19 mRNA, LNP-s, No Pre serve, 2-Dose Series (Self-A-r-T) 09/12/2021,12/18/2020,11/27/2020 COVID-19, MRNA-LNP, 24-25, P R, 30MCG/0.3ML, IM, 12YRS AND ABOVE ([employer]-Comirnaty) 11/07/2023 Hepatitis B, 20+ yrs 07/26/2015,03/01/2015,11/29 Pneumococcal Conjugate Vacci ne, 20-valent ([id number]) 12/22/2023,07/15/2022 Pneumococcal Polysaccharide PPV23 (Pneumovax) 02/26/2014 Seasonal [...] encounter Miscellaneous Notes * Addendum Note - Brody Dejesus DO - 09/28/2024 2:30 PM ESTAddended by: BRODY DEJESUS on: 09/28/2024 02:30 PM Modules accepted: Orders * Telephone Encounter - Brody Dejesus DO - 09/28/2024 2:26 PM EST Please call Facundo and have him schedule a CT scan in 3 months to follow-up on what was found on his recent CT scan * Telephone Encounter - Rosie Price RN - 09/22/2024 1:58 PM EST Spoke with patient. He reports he is not having any signs or symptoms of pneumonia. Denies cough, increased SOB, fever/chills or cold symptoms. * Telephone Encounter - Jessica Oneal RN - 09/22/2024 8:21 AM EST I will forward this to the [facility] team, he is currently enrolled in their program, so not technically enrolled in . * Telephone Encounter - Brody Dejesus DO - 09/21/2024 4:18 PM EST Could you please call Facundo and let me know if he is having any symptoms of pneumonia?? Let me know if you're not on his case anymore? * Telephone Encounter - Marta Chaparro OSA - 09/20/2024 2:20 PM EST Hello- The radiologist discovered an unexpected or indeterminate finding on Facundo Botello ([id number]) and asks that you review the following report. Study Type:CT CHEST WO CONTRAST Date of Study: 09/18/2024 IMPRESSION Nonspecific multi lobar lung nodules/nodule-like opacities. Some lung nodules/nodule-like opacitieslikely represent intrapulmonary lymph nodes or inflammatory/infectious process. However, as non inflammatory/infectious process is not excluded from the differential, recommend 3 month follow-up chest CT for reassessment. Please respond to this encounter to acknowledge receipt of this message and take responsibility to ensure this report is reviewed. Thank you, Marta Chaparro, ALEJANDRA Client Service [facility] documented in this encounter Plan of Treatment Upcoming Encounters Date Type Department Care Team (Latest Contact Info) Description 10/18/2024 10:00 AM EST Home Visit [facility] 132 [facility] [place] [address] Rosie Price, RN [facility] [place] [address] 10/26/2024 7:30 AM EST [facility] [address] [facility] [place] [facility] [place] [phone] [place] [address] 11/08/2024 2:30 PM EST Nutrition Services Nutrition & Weight Management, [facility] [address] [facility] [place] [address] Mayuri Ernst RDN 132 [place] [address] 02/02/2025 10:15 AM EDT Office Visit [facility] [address] [place] [address] Mason Jean-Baptiste MD [address] [place] [address] 02/09/2025 11:40 AM EDT Office Visit Family [facility] [address] [place] [address] Brody Dejesus, DO [address] [place] [address] 02/28/2025 8:00 AM EDT Hospital Encounter ENDO [facility], Endoscopy Room [facility] [address] [place] [phone] Kandice Arevalo MD [address] [place] [address] 02/28/2025 8:00 AM EDT - 02/28/2025 8:30 AM EDT Surgery ENDO O[facility], Endoscopy Room [facility] [address] [place] [phone] Kandice Arevalo MD [address] [place] [id number] COLONOSCOPY FLEXIBLE PROXIMAL DIAGNOSTIC Scheduled Orders Name Type Priority Associated Diagnoses Orde r Schedule CT CHEST WO CONTRAST Medical Imaging Routine Abnormal CT scan of lung Lung nodules Expected: 12/27/2024, Expires: 10/29/2025 Scheduled Procedures Name Priority Associated Diagnoses Date/Ti [...] episode of recurrent major depressive disorder (HCC) Abnormal CT scan of lung- Primary Other nonspecific abnormal finding of lung field Lung nodules Other nonspecific abnormal finding of lung field History of colon polyps Personal history of colonic polyps documented in this encounter Care Teams Statistical Clerk Relationship Specialty Start Date End Date Brody Dejesus DO [address] [place] [address] PCP - General Family Medicine 04/26/17 documented as of this encounter
--- OUTSIDE RECORDS SUMMARY | 2024-12-10 13:24 | External Medical Summary | Summary of Care ---
Author Name Unknown Organization [facility] Address [address] [place] [address] Phone [phone] Care Team Providers Care Story Analyst Name Role Phone Brody Fofana DO Primary Care Provider [phone] Reason for Referral * Precert (Within 10 days (routine)) - Pending Review Specialty Diagnoses / Procedures Referred By Tammie t Referred To Contact Radiology Diagnoses Abnormal CT scan of lung Lung nodules Procedures CT CHEST WO CONTRAST CT CHEST WO CONTRAST Brody Fofana DO [address] [place] [address] Phone: tel: fax: Referral ID Status Reason Start Date Expiration Date V isits Requested Visits Authorized [id number] Pending Review 09/28/[phone] Reason for Visit * Reason Onset Date Comments Test Results 09/20/2024 Unexpected or In determinate Encounter Details Date Type Department Care Team (Late st Contact Info) Description 09/20/2024 Telephone Laboratory, [place] [address] [place] [address] Brody Fofana DO [address] [facility] [place] [id number] Test Results (Unexpected or Indeterminate) Allergies Active Allergy Reactions Criticality Noted Date Comments Amoxicillin-Pot Clavulanate Hives High 11/26/19 12 Sulfamethoxazole-Trimethopri m 02/07/2016 Insulin Glargine 01/21/2016 States he went in to CHF after one shot of insulin Other reaction(s): CHF Permethrin 04/27/2013 Shrimp Flavor 04/27/2013 documented as of this encounter (statuses as of 09/29/2024) Medications VITAMIN C 500 MG PO TABS [...] Each 5 05/31/20 24 Active Dexcom G6 Phone Operator DeviceIndications :DM type 2, not at [...] as of this encounter (statuses as of 09/29/2024) Active Problems Problem Noted Date Diagnosed Date [...] as of this encounter (statuses as of 09/29/2024) Resolved Problems Problem Noted Date Diagnosed Date [...] as of this encounter (statuses as of 09/29/2024) Immunizations Name Administration Dates Next Due COVID-19 mRNA, LNP-s, No Pre serve, 2-Dose Series ([email or web address]) 09/12/2021,12/18/2020,11/27/2020 COVID-19, MRNA-LNP, 24-25, P R, 30MCG/0.3ML, IM, 12YRS AND ABOVE (Pfizer-Comirnaty) 11/07/2023 Hepatitis B, 20+ yrs 07/26/2015,03/01/2015,11/29 Pneumococcal Conjugate Vacci ne, 20-valent ([id number]) 12/22/2023,07/15/2022 Pneumococcal Polysaccharide PPV23 (Pneumovax) 02/26/2014 Seasonal [...] encounter Miscellaneous Notes * Telephone Encounter - Alcira Adan OSA - 09/29/2024 2:36 PM EST Pt scheduled 12/29/24 * Addendum Note - Brody Fofana DO - 09/28/2024 2:30 PM ESTAddended by: BRODY FOFANA on: 09/28/2024 02:30 PM Modules accepted: Orders * Telephone Encounter - Brody Fofana DO - 09/28/2024 2:26 PM EST Please [...] EST I will forward this to the [facility] team, he is currently enrolled in their program, so not technically enrolled in CM. * Telephone Encounter - Brody Fofana DO - 09/21/2024 4:18 PM EST Could you please call Facundo and let me know if he is having any symptoms of pneumonia?? Let me know if you're not on his case anymore? * Telephone Encounter - Marta Chaparro OSA - 09/20/2024 2:20 PM EST Hello- The radiologist discovered an unexpected or indeterminate finding on Facundo Botello ([id number]) and asks that you review the following [...] ensure this report is reviewed. Thank you, ALEJANDRA Ramos Client Service [facility] documented in this encounter Plan of Treatment Upcoming Encounters Date Type Department Care Team (Latest Contact Info) Description 10/18/2024 10:00 AM EST Home Visit [facility] 132 [facility] [place] [address] Rosie Price RN 132 [facility] [place] [address] 10/26/2024 7:30 AM EST Office Visit Pharmacy, [place] [address] [phone] [place] [facility] [address] [place] [address] [place] [address] 11/08/2024 2:30 PM EST Nutrition Services Nutrition & Weight Management, [facility] 132 [facility] [place] [address] Mayuri Ernst RDN 132 [facility] [place] [address] 12/29/2024 11:30 AM EDT Imaging Radiology [facility] 1st [facility] [address] [place] [address] 02/02/2025 10:15 AM EDT Office Visit [address] [place] [address] Mason Jean-Baptiste MD [address] [place] [address] 02/09/2025 11:40 AM EDT Office Visit Family Practice [facility] [address] [place] [address] [place] [address] Brody Fofana DO [address] [place] [address] 02/28/2025 8:00 AM EDT Hospital Encounter ENDO [facility] [address] [facility] [phone] Kandice Arevalo MD [address] [place] [address] 02/28/2025 8:00 AM EDT - 02/28/2025 8:30 AM EDT Surgery ENDO [facility], Endoscopy Room [facility] 132 [facility] [place] [phone] Kandice Arevalo MD [address] [place] [phone] COLONOSCOPY FLEXIBLE PROXIMAL DIAGNOSTIC Scheduled Orders Name [...] polyps documented in this encounter Care Teams Story Analyst Relationship Specialty Start Date End Date Brody Fofana DO 200 [facility] [place] [address] PCP - General Family Medicine 04/26/17 documented as of this encounter
--- OUTSIDE RECORDS SUMMARY | 2024-12-10 13:24 | External Medical Summary | Summary of Care ---
Author Name Unknown Organization [facility] Address [address] [place] [address] Phone [phone] Care Team Providers Care Manager Commission Name Role Phone Brody Dejesus DO Primary Care Provider [phone] Reason for Visit * Reason Comments eRx-Medication Refill Encounter Details Date Type Department Care Team (Late st Contact Info) Description 11/11/2024 Refill Family Practice [facility] [place] [address] [place] [address] Brody Dejesus DO 200 [facility] [place] [address] Allergies Active Allergy Reactions Criticality Noted Date Comments Amoxicillin-Pot Clavulanate Hives High 11/26/19 12 Sulfamethoxazole-Trimethopri m 02/07/2016 Insulin Glargine 01/21/2016 States he went in to CHF after one shot of insulin Other reaction(s): CHF Permethrin 04/27/2013 Shrimp Flavor Agent (Non-Screening) 04/27/2013 documented as of this encounter (statuses as of 11/12/2024) Medications VITAMIN C 500 MG PO TABS Take 2 Tablets by mouth in the morning. Active Chromium-Cinnamo n 50-500 MCG-MG CAPS Take by mouth. 1 tab daily Active Aspirin 81 MG Tablet Take 1 Tab by mouth daily. 34 Tab 5 018 Active Bacillus Coagulans-Inulin (PROBIOTIC) 1-250 BILLION-MG CAPS daily. 020 Active Multiple Vitamins-Mineral s (MULTIVITAMIN ADULT) TABS Take 1 Tablet by mouth in the morning. Active Furosemide 40 MG Oral Tablet (LASIX)Indicatio ns:Non-ischemic cardiomyopathy (HCC) TAKE 2 TABLETS BY MOUTH IN THE MORNING AND 1 TABLET IN THE AFTERNOON 270 Tab 3 020 Active Additional Information Patient taking differently: 120 mg Daily(AM), TAKE 2 TABLETS BY MOUTH IN THE MORNING AND 1 TABLET IN THE AFTERNOONPatient takes 3 tabs in AM, Informant: Patient, Reported on 11/08/2024 BD Pen Needle Coby 2nd Gen 32G X 4 MM (Insulin Pen Needle) Use up to 4 times daily with insulin pens 300 Each 3 021 Active Metoprolol Succinate ER 50 MG Oral Tablet Extended Release 24 Hour (toPROL XL)Indications:N on-ischemic cardiomyopathy (HCC),Sinus tachycardia Take 1 tablet by mouth twice daily 180 Tablet 3 022 Active Spironolactone 25 MG Oral Tablet (Aldactone)Indic ations:Non-ische edith cardiomyopathy (HCC),HTN, goal below 130/80 Take 1 Tablet (25 mg) by mouth in the morning. 90 Tablet 3 022 Active Tamsulosin HCl 0.4 MG Oral Capsule (Flomax)Indicati ons:Recurrent UTI Take 1 Capsule by mouth in the morning. 30 Capsule 11 023 Active Toujeo Max SoloStar 300 UNIT/ML Subcutaneous Solution Pen-injector (Insulin Glargine (2 Unit Dial))Indication s:Type 2 diabetes mellitus with hemoglobin A1c goal of less than 7.0% ([facility]) Inject 100 Units under the skin in the morning and 100 Units before bedtime. 60 mL 3 024 Active NovoLOG FlexPen ReliOn 100 UNIT/ML Subcutaneous Solution Pen-injector (insulin aspart)Indicatio ns:Type 2 diabetes mellitus with complication, with long-term current use of insulin ([facility]) INJECT 60 UNITS SUBCUTANEOUSLY WITH BREAKFAST, 20 units with lunch AND 60 WITH SUPPER 130 mL 1 024 Active buPROPion HCl ER (XL) 300 MG Oral Tablet Extended Release 24 Hour (Wellbutrin XL)Indications:M oderate episode of recurrent major depressive disorder (HCC) TAKE 1 TABLET BY MOUTH IN THE MORNING 90 Tablet 3 024 Active Jardiance 25 MG Oral Tablet (Empagliflozin)I ndications:Type 2 diabetes mellitus with hemoglobin A1c goal of less than 7.0% (HCC) TAKE 1 TABLET BY MOUTH IN THE MORNING 90 Tablet 3 024 Active Lisinopril 20 MG Oral Tablet (Prinivil) TAKE 1 TABLET BY MOUTH IN THE MORNING 90 Tablet 3 024 Active Gabapentin 300 MG Oral Capsule (Neurontin) Take 1 Capsule by mouth in the morning and 1 Capsule at noon and 1 Capsule before bedtime. Patient reports taking it twice/ day. Active B-12 1000 MCG Oral Tablet Extended Release Take 1,000 mcg by mouth in the morning. Active metFORMIN HCl ER 750 MG Oral Tablet Extended Release 24 Hour (Glucophage XR)Indications:T ype 2 diabetes mellitus with diabetic neuropathy, with long-term current use of insulin (HCC) Take 2 Tablets by mouth in the morning. 180 Tablet 3 024 Active Albuterol Sulfate HFA 108 (90 Base) MCG/ACT Inhalation Aerosol SolutionIndicati ons:Wheezing Inhale 2 Puffs by mouth every 4 hours as needed for Wheezing. 18 g 5 024 Active Dexcom G6 Emt DeviceIndication s:DM type 2, not at goal ([facility]) Use as directed. E11.9 1 Each 024 Active Dexcom G6 SensorIndication s:DM type 2, not at goal ([facility]) Use as directed. Change every 10 days 9 Each 3 09/08/20 24 11:22 AM EST 024 Active Dexcom G6 TransmitterIndic ations:DM type 2, not at goal ([facility]) Use as directed. Change every 90 days E11.9 1 Each 3 024 Active Nitroglycerin 0.4 MG Sublingual Tablet Sublingual (Nitrostat)Indic ations:Inferior myocardial infarction (HCC) Place 1 Tablet under the tongue as needed for Pain, Chest. May repeat 3 times. If chest pain continues, call 911. 25 Tablet 11 Active Additional Information Patient not taking.Reported on 10/18/2024 Sertraline HCl 100 MG Oral Tablet (Zoloft)Indicati ons:Moderate episode of recurrent major depressive disorder (HCC) TAKE 1 TABLET BY MOUTH IN THE MORNING 90 Tablet 3 024 Active Arnuity Ellipta 100 MCG/ACT Inhalation Aerosol Powder Breath Activated (fluticasone Furoate) INHALE 1 PUFF BY MOUTH IN THE MORNING 30 Each 5 025 Active Arnuity Ellipta 100 MCG/ACT Inhalation Aerosol Powder Breath Activated (fluticasone Furoate) Inhale 1 Puff by mouth in the morning. 30 Each 5 024 11/12 Discontinued documented as of this encounter (statuses as of 11/12/2024) Active Problems Problem Noted Date Diagnosed Date [...] as of this encounter (statuses as of 11/12/2024) Resolved Problems Problem Noted Date Diagnosed Date [...] as of this encounter (statuses as of 11/12/2024) Immunizations Name Administration Dates Next Due COVID-19 mRNA, LNP-s, No Pre serve, 2-Dose Series ([employer]) 09/12/2021,12/18/2020,11/27/2020 COVID-19, MRNA-LNP, 24-25, P R, 30MCG/0.3ML, IM, 12YRS AND ABOVE ([employer]-Comirnat) 11/07/2023 Hepatitis B, 20+ yrs 07/26/2015,03/01/2015,11/29 Pneumococcal Conjugate Vacci ne, 20-valent ([id number]) 12/22/2023,07/15/2022 Pneumococcal Polysaccharide PPV23 (Pneumovax) 02/26/2014 Seasonal [...] No 08/15/2024 Does the household have a [facility] source of income? (Household - for [...] encounter Miscellaneous Notes * Telephone Encounter - Maryam Wiggins [facility] - 11/12/2024 6:13 PM EST Signed Prescriptions: Disp Refills Arnuity Ellipta 100 MCG/ACT Inhalation Aer*30 Each5 Sig: INHALE 1 PUFF BY MOUTH IN THE MORNINGAuthorizing Provider: BRODY DEJESUS User: MARYAM WIGGINS documented in this encounter Plan of Treatment Upcoming Encounters Date Type Department Care Team (Latest Contact Info) Description 11/28/2024 10:00 AM EST Home Visit [facility] [facility] [place], [facility] 132 [facility] [place] [address] Rosie Price RN 132 [facility] [place] [address] 12/29/2024 11:30 AM EDT Imaging Radiology [facility] 1st [facility] 132 [facility] [place] [phone] 01/16/2025 8:00 AM EDT Office Visit Pharmacy, [facility] [address] [place] [phone] [place] [address] [place] [address] 01/24/2025 2:00 PM EDT Office Visit Urology, [place] [address] [place] [address] Gil Dejesus PA-C [address] [place] [address] 02/02/2025 10:15 AM EDT [facility] [address] [place] [address] Mason Jean-Baptiste MD [address] [place] [address] 02/07/2025 3:30 PM EDT Nutrition Services Nutrition & Weight Management, [facility] 132 [facility] [place] [address] Mayuri Ernst RDN 132 [facility] [place] [address] 02/09/2025 11:40 AM EDT Office Visit Family Practice [facility] [place] 200 [facility] [place], [place] [address] Brody Dejesus DO 200 [facility] [place] [address] 02/28/2025 8:00 AM EDT Hospital Encounter ENDO [facility], Endoscopy Room [facility] [address] [place] [phone] Kandice Arevalo MD [address] [place] [address] 02/28/2025 8:00 AM EDT - 02/28/2025 8:30 AM EDT Surgery ENDO [facility], Endoscopy Room [facility] [address] [place] [phone] Kandice Arevalo MD [address] [place] [id number] COLONOSCOPY FLEXIBLE PROXIMAL DIAGNOSTIC Scheduled Procedures Name [...] as of this encounter Care Teams Manager Commission Relationship Specialty Start Date End Date Brody Dejesus DO [address] [place] [address] PCP - General Family Medicine 04/26/17 documented as of this encounter
--- OUTSIDE RECORDS SUMMARY | 2024-12-10 13:25 | External Medical Summary | Summary of Care ---
Author Name Unknown Organization [facility] Address [address] [place] [address] Phone [phone] Care Team Providers Care Cement Mixer Driver Name Role Phone Willam Fofana DO Primary Care Provider Encounter Details Date Type Department Care Team (Latest Contact Info) Description 08/05/2024 6:55 PM EDT - 08/05/2024 11:59 PM EDT Hospital Encounter Radiology [place] [address] [place] [address] Discharge Disposition: Home - Self Care Allergies Active Allergy Reactions Criticality Noted Date Comments Amoxicillin-Pot Clavulanate Hives High 11/26/19 12 Sulfamethoxazole-Trimethopri m 02/07/2016 Insulin Glargine 01/21/2016 States he went in to CHF after one shot of insulin Other reaction(s): CHF Permethrin 04/27/2013 Shrimp Flavor 04/27/2013 documented as of this encounter (statuses as of 09/16/2024) Medications VITAMIN C 500 MG PO TABS [...] Each 5 05/31/20 24 Active Dexcom G6 Infant Room Teacher DeviceIndications :DM type 2, not at goal [...] Additional Information Patient not taking.Reported on 08/31/2024 documented as of this encounter (statuses as of 09/16/2024) Active Problems Problem Noted Date Diagnosed Date [...] as of this encounter (statuses as of 09/16/2024) Resolved Problems Problem Noted Date Diagnosed Date [...] as of this encounter (statuses as of 09/16/2024) Immunizations Name Administration Dates Next Due COVID-19 mRNA, LNP-s, No Pre serve, 2-Dose Series ([employer]) 09/12/2021,12/18/2020,11/27/2020 COVID-19, MRNA-LNP, 24-25, P R, 30MCG/0.3ML, IM, 12YRS AND ABOVE ([employer]-Comirnat) 11/07/2023 Hepatitis B, 20+ yrs 07/26/2015,03/01/2015,11/29 Pneumococcal Conjugate Vacci ne, 20-valent ([id number]) 12/22/2023,07/15/2022 Pneumococcal Polysaccharide PPV23 (Pneumovax) 02/26/2014 Seasonal [...] Department Care Team (Latest Contact Info) Description 09/18/2024 7:30 AM EST Imaging Radiology [facility] 1st [facility] [address] [place] [address] 10/18/2024 10:00 AM EST [facility], [facility] [address] [place] [address] Rosie Price RN [address] [place] [address] 10/26/2024 7:30 AM EST [facility]acy, [facility] [place] [phone] [facility] [facility] [address] [place], [place] [address] [address] 11/08/2024 2:30 PM EST Nutrition Services Nutrition & Weight Management, [facility] [address] [place] [address] Mayuri Ernst RDN [address] [place] [address] 02/02/2025 10:15 AM EDT Office Visit [facility] Eye [facility] 16 [place] [address] Mason Jean-Baptiste MD 16 [place] [address] 02/09/2025 11:40 AM EDT Office Visit [facility] [place] 200 [facility] [place] [address] Willam Fofana, DO 200 [facility] [place] [address] 02/28/2025 8:00 AM EDT Hospital Encounter ENDO [facility], Endoscopy Room O[facility] [address] [place] [phone] Kandice Arevalo MD [address] [place] [id number] 02/28/2025 8:00 AM EDT - 02/28/2025 8:30 AM EDT Surgery ENDO [facility], Endoscopy Room [facility] 132 [facility] [place] [phone] Kandice Arevalo MD [address] [place] [phone] COLONOSCOPY FLEXIBLE PROXIMAL DIAGNOSTIC Scheduled Procedures Name Priority Associated Diagnoses Date/Ti me COLONOSCOPY FLEXIBLE PROXIMAL DIAGNOSTIC Recall History of colon polyps 02/28/2025 8:00 AM EDT Health Maintenance Due Date Last Done Comments Cologuard 2007 Fecal Occult Blood Test 2007 Sigmoidoscopy 2007 Colonoscopy 01/11/2024 01/10/2019, 11/12, 09/25/2014 Colorectal Cancer Screening 01/11/2024 COVID-19 Vaccine ( season) 2024 11/07/2023, 11/07/2023, 08/22/2022, Additional history exists HbA1c 01/30/2025 08/01/2024, 04/1 02/2024, 08/17/2023, Additional history exists Depression Monitoring 03/27/2025 03/27/2024 Diabetic Foot Exam 06/30/2025 06/30/2024, 0 11/20/2022, 06/25/2021, Additional history exists GFR 08/01/2025 08/01/2024, 041 02/2024, 11/13/2022, Additional history exists Diabetic Eye Exam [...] Procedure Name Priority Date/Time Associated Diagnosis Comments RADIOLOGY EXAM - CT (IMAGES ONLY, NO REPORT) Routine 08/05/2024 6:55 PM EDT documented in this encounter Results * RADIOLOGY EXAM - CT (IMAGES ONLY, NO REPORT) (08/05/2024 6:55 PM EDT) 08/05/2024 6:52 PM EDT Narrative Scheduling, Silent - 09/15/2024 9:50 AM EST This is an imaging study not interpreted or resulted by a [facility] or [facility] contracted radiologist. us Willam Fofana DO RAD CT Final Resul t documented in this encounter Care Teams Cement Mixer Driver Relationship Specialty Start Date End Date Willam Fofana, 200 [facility] [place] [address] PCP - General Family Medicine 04/26/17 documented as of this encounter
--- OUTSIDE RECORDS SUMMARY | 2024-12-10 13:25 | External Medical Summary | Summary of Care ---
Author Name Unknown Organization [facility] Address [address] [place] [address] Phone [phone] Care Team Providers Care Technical Engineer Name Role Phone Willam Fofana DO Primary Care Provider Reason for Visit * Reason Onset Date Comments Test Results 09/20/2024 Unexpected or In determinate Encounter Details Date Type Department Care Team (Late st Contact Info) Description 09/20/2024 Telephone Laboratory, [place] [address] [place] [address] Willam Fofana, DO [address] [place] [address] Test Results (Unexpected or Indeterminate) Allergies Active Allergy Reactions Criticality Noted Date Comments Amoxicillin-Pot Clavulanate Hives High 11/26/19 12 Sulfamethoxazole-Trimethopri m 02/07/2016 Insulin Glargine 01/21/2016 States he went in to CHF after one shot of insulin Other reaction(s): CHF Permethrin 04/27/2013 Shrimp Flavor 04/27/2013 documented as of this encounter (statuses as of 09/22/2024) Medications VITAMIN C 500 MG PO TABS [...] A1c goal of less than 7.0% ([facility]) Inject 100 Units under the skin in the morning and 100 Units before bedtime. 60 mL 3 10/19/19 24 Active NovoLOG FlexPen ReliOn 100 UNIT/ML Subcutaneous Solution Pen-injector (insulin aspart)Indication s:Type 2 diabetes mellitus with complication, with long-term current use of insulin ([facility]) INJECT 60 UNITS SUBCUTANEOUSLY [...] Each 5 05/31/20 24 Active Dexcom G6 Edge Trimmer Mechanic DeviceIndications :DM type 2, not at goal [...] as of this encounter (statuses as of 09/22/2024) Active Problems Problem Noted Date Diagnosed Date [...] goal of less than 7.0% 06/05/2020 Old MS (myocardial infarction) 09/25/2019 Type 2 diabetes mellitus [...] as of this encounter (statuses as of 09/22/2024) Resolved Problems Problem Noted Date Diagnosed Date [...] as of this encounter (statuses as of 09/22/2024) Immunizations Name Administration Dates Next Due COVID-19 mRNA, LNP-s, No Pre serve, 2-Dose Series ([employer]) 09/12/2021,12/18/2020,11/27/2020 COVID-19, MRNA-LNP, 24-25, P R, 30MCG/0.3ML, IM, 12YRS AND ABOVE ([employer]-Comirnat) 11/07/2023 Hepatitis B, 20+ yrs 07/26/2015,03/01/2015,11/29 Pneumococcal Conjugate Vacci ne, 20-valent ([id number]) 12/22/2023,07/15/2022 Pneumococcal Polysaccharide PPV23 (Pneumovax) 02/26/2014 Seasonal [...] No 08/15/2024 Does the household have a [facility] source [facility] income? (Household - for ages [...] encounter Miscellaneous Notes * Telephone Encounter - Rosie Price RN - 09/22/2024 1:58 PM EST Spoke with patient. He reports he is not having any signs or symptoms of pneumonia. Denies cough, increased SOB, fever/chills or cold symptoms. * Telephone Encounter - Jessica Oneal RN - 09/22/2024 8:21 AM EST I will forward this to the [facility] team, he is currently enrolled in their program, so not technically enrolled in CM. * Telephone Encounter - Willam Fofana DO - 09/21/2024 4:18 PM EST Could you please call Facundo and let me know if he is having any symptoms of pneumonia?? Let me know if you're not on his case anymore? * Telephone Encounter - Marta Chaparro OSA - 09/20/2024 2:20 PM EST Hello- The radiologist discovered an unexpected or indeterminate finding on Facundo Botello ([id number]) and asks that you review the following [...] reviewed. Thank you, ALEJANDRA Ramos Client Service [facility] documented in this encounter Plan of Treatment Upcoming Encounters Date Type Department Care Team (Latest Contact Info) Description 10/18/2024 10:00 AM EST [facility] [address] [place] [address] Rosie Price RN [address] [place] [address] 10/26/2024 7:30 AM EST Office Visit Pharmacy, [place] [address] [place] [phone] [place] [address] [place] [address] 11/08/2024 2:30 PM EST Nutrition Services Nutrition & Weight Management, [facility] [address] [place] [address] Mayuri Ernst RDN [address] [place] [address] 02/02/2025 10:15 AM EDT Office Visit [facility] [address] [place] [address] Mason Jean-Baptiste MD 16 [place] [address] 02/09/2025 11:40 AM EDT Office Visit [facility] [address] [place] [address] Willam Fofana, DO [address] [place] [address] 02/28/2025 8:00 AM EDT Hospital Encounter ENDO OSS, Endoscopy Room O[facility] [address] [facility] [place] [phone] Kandice Arevalo MD [address] [place] [address] 02/28/2025 8:00 AM EDT - 02/28/2025 8:30 AM EDT Surgery ENDO [facility], Endoscopy Room [facility] [address] [facility] [place] [phone] Kandice Arevalo MD [address] [place] [address] COLONOSCOPY FLEXIBLE PROXIMAL DIAGNOSTIC Scheduled Procedures Name [...] filedocumented as of this encounter Care Teams Technical Engineer Relationship Specialty Start Date End Date Willam Fofana DO [address] [place] [address] PCP - General Family Medicine 04/26/17 documented as of this encounter
--- OUTSIDE RECORDS SUMMARY | 2024-12-10 13:25 | External Medical Summary | Summary of Care ---
Author Name Unknown Organization [facility] Address [address] [place] [address] Phone [phone] Care Team Providers Care Remote Sensing Technologist Name Role Phone Willam Fofana DO Primary Care Provider Reason for Visit * Reason Onset Date Comments Test Results 09/20/2024 Unexpected or In determinate Encounter Details Date Type Department Care Team (Late st Contact Info) Description 09/20/2024 Telephone Laboratory, [place] [address] [place] [address] Willam Fofana, DO [address] [place] [address] Test Results (Unexpected or Indeterminate) Allergies Active Allergy Reactions Criticality Noted Date Comments Amoxicillin-Pot Clavulanate Hives High 11/26/19 12 Sulfamethoxazole-Trimethopri m 02/07/2016 Insulin Glargine 01/21/2016 States he went in to CHF after one shot of insulin Other reaction(s): CHF Permethrin 04/27/2013 Shrimp Flavor 04/27/2013 documented as of this encounter (statuses as of 09/20/2024) Medications VITAMIN C 500 MG PO TABS [...] goal of less than 7.0% ([facility]) Inject 100 Units under the skin in the morning and 100 Units before bedtime. 60 mL 3 10/19/19 24 Active NovoLOG FlexPen ReliOn 100 UNIT/ML Subcutaneous Solution Pen-injector (insulin aspart)Indication s:Type 2 diabetes mellitus with complication, with long-term current use of insulin ([facility]) INJECT 60 UNITS SUBCUTANEOUSLY WITH [...] Each 5 05/31/20 24 Active Dexcom G6 Maintenance Service Technician DeviceIndications :DM type 2, not at goal [...] as of this encounter (statuses as of 09/20/2024) Active Problems Problem Noted Date Diagnosed Date [...] goal of less than 7.0% 06/05/2020 Old [place] (myocardial infarction) 09/25/2019 Type 2 diabetes mellitus [...] as of this encounter (statuses as of 09/20/2024) Resolved Problems Problem Noted Date Diagnosed Date [...] as of this encounter (statuses as of 09/20/2024) Immunizations Name Administration Dates Next Due COVID-19 mRNA, LNP-s, No Pre serve, 2-Dose Series ([employer]) 09/12/2021,12/18/2020,11/27/2020 COVID-19, MRNA-LNP, 24-25, P R, 30MCG/0.3ML, IM, 12YRS AND ABOVE ([employer]-Comirnat) 11/07/2023 Hepatitis B, 20+ yrs 07/26/2015,03/01/2015,11/29 Pneumococcal Conjugate Vacci ne, 20-valent ([id number]) 12/22/2023,07/15/2022 Pneumococcal Polysaccharide PPV23 (Pneumovax) 02/26/2014 Seasonal [...] No 08/15/2024 Does the household have a [facility] source of income? (Household - for [...] encounter Miscellaneous Notes * Telephone Encounter - Mrata Chaparro OSA - 09/20/2024 2:20 PM EST Hello- The radiologist discovered an unexpected or indeterminate finding on Facundo Botello ([id number]) and asks that you review the following [...] reviewed. Thank you, ALEJANDRA Ramos Client Service [facility] documented in this encounter Plan of Treatment Upcoming Encounters Date Type Department Care Team (Latest Contact Info) Description 10/18/2024 10:00 AM EST [facility] [address] [facility] [place] [address] Rosie Price, RN [address] [place] [address] 10/26/2024 7:30 AM EST Office Visit Pharmacy, [facility] [address] [place] [phone] [place], [address] [address] 11/08/2024 2:30 PM EST Nutrition Services Nutrition & Weight Management, [facility] [address] [facility] [place] [address] Mayuri Ernst RDN 132 [facility] [place] [address] 02/02/2025 10:15 AM EDT Office Visit [facility] [address] [place] [address] Mason Jean-Baptiste MD 16 [place] [address] 02/09/2025 11:40 AM EDT Office Visit Family Practice [facility] [address] [facility] [place] [address] Willam Fofana, DO [address] [facility] [place] [address] 02/28/2025 8:00 AM EDT Hospital Encounter ENDO [facility], Endoscopy Room [facility] [address] [facility] [place] [phone] Kandice Arevalo MD [address] [place], [place] [address] [place] [address] 02/28/2025 8:00 AM EDT - 02/28/2025 8:30 AM EDT Surgery ENDO OSS[facility], Endoscopy Room OSS [address] [facility] [place] [phone] Kandice Arevalo MD [address] [place] [...] 08/22/2022, Additional history exists HbA1c 01/30/2025 08/01/2024, 01/09, 08/17/2023, Additional history exists Depression Monitoring 03/27/2025 [...] filedocumented as of this encounter Care Teams Remote Sensing Technologist Relationship Specialty Start Date End Date Willam Fofana DO [address] [place] [address] PCP - General Family Medicine 04/26/17 documented as of this encounter
--- OUTSIDE RECORDS SUMMARY | 2024-12-10 13:25 | External Medical Summary | Summary of Care ---
Author Name Unknown Organization [facility] Address [address] [place] [address] Phone [phone] Care Team Providers Care Nursing Home Physician Name Role Phone Willma Fofana DO Primary Care Provider Encounter Details Date Type Department Care Team (Late st Contact Info) Description 09/25/2024 Orders Only Outcomes Research Department [address] [place] [address] Nichelle Gao CHRA [employer] [facility] Other*[id number] Allergies Active Allergy Reactions Criticality Noted Date Comments Amoxicillin-Pot Clavulanate Hives High 11/26/19 12 Sulfamethoxazole-Trimethopri m 02/07/2016 Insulin Glargine 01/21/2016 States he went in to CHF after one shot of insulin Other reaction(s): [facility] Permethrin 04/27/2013 Shrimp Flavor 04/27/2013 documented as of this encounter (statuses as of 09/25/2024) Medications VITAMIN C 500 MG PO TABS [...] Each 5 05/31/20 24 Active Dexcom G6 Cork Insulator DeviceIndications :DM type 2, not at goal [...] as of this encounter (statuses as of 09/25/2024) Active Problems Problem Noted Date Diagnosed Date [...] as of this encounter (statuses as of 09/25/2024) Resolved Problems Problem Noted Date Diagnosed Date [...] as of this encounter (statuses as of 09/25/2024) Immunizations Name Administration Dates Next Due COVID-19 mRNA, LNP-s, No Pre serve, 2-Dose Series ([employer]) 09/12/2021,12/18/2020,11/27/2020 COVID-19, MRNA-LNP, 24-25, P R, 30MCG/0.3ML, IM, 12YRS AND ABOVE ([employer]-Comirnat) 11/07/2023 Hepatitis B, 20+ yrs 07/26/2015,03/01/2015,11/29 Pneumococcal Conjugate Vacci ne, 20-valent ([id number]) 12/22/2023,07/15/2022 Pneumococcal Polysaccharide PPV23 (Pneumovax) 02/26/2014 Seasonal [...] Description 10/18/2024 10:00 AM EST [facility] [address] [place] [address] Rosie Price RN 132 [place] [address] 10/26/2024 7:30 AM EST Office Visit Pharmacy, [facility] [address] [place] [phone] [facility] [address] [place] [address] [place] [address] 11/08/2024 2:30 PM EST Nutrition Services Nutrition & Weight Management, [facility] [address] [place] [address] Mayuri Ernst RDN [address] [place] [address] 02/02/2025 10:15 AM EDT Office Visit [facility] [address] [place] [address] Mason Jean-Baptiste MD 16 [place] [address] 02/09/2025 11:40 AM EDT Office [facility] [address] [place], [place] [address] Willam Fofana, [address] [place] [address] 02/28/2025 8:00 AM EDT Hospital Encounter ENDO OSS[facility], Endoscopy Room OSS [address] [facility] [place] [address] Kandice Arevalo MD [address] [place] [id number] 02/28/2025 8:00 AM EDT - 02/28/2025 8:30 AM EDT Surgery ENDO [facility], Endoscopy Room [facility] 132 [facility] [place] [phone] Kandice Arevalo MD [address] [place] [phone] COLONOSCOPY FLEXIBLE PROXIMAL DIAGNOSTIC Scheduled Orders Name Type Priority Associated Diagnoses Orde r Schedule MYCODE SUBSEQUENT ADULT Lab Routine MyCode Research Other*[id number] Every 6 Months for 2 Occurrences starting 09/25/2024 until 10/15/2025 Scheduled Procedures Name Priority Associated Diagnoses Date/Ti me COLONOSCOPY FLEXIBLE PROXIMAL DIAGNOSTIC Recall History of colon polyps 02/28/2025 8:00 AM EDT Health Maintenance Due Date Last Done Comments Cologuard 2007 Fecal Occult Blood Test 2007 Sigmoidoscopy 2007 Colonoscopy 01/11/2024 01/10/2019, 11/12, 09/25/2014 Colorectal Cancer Screening 01/11/2024 COVID-19 Vaccine (7 - 2024-25 season) 2024 11/07/2023, 11/07/2023, 08/22/2022, Additional history [...] episode of recurrent major depressive disorder (HCC) My[employer] Research Other*[id number] History of colon polyps Personal history of colonic polyps documented in this encounter Care Teams Nursing Home Physician Relationship Specialty Start Date End Date Willam Fofana DO 200 [place] [address] PCP - General Family Medicine 04/26/17 documented as of this encounter
--- OUTSIDE RECORDS SUMMARY | 2024-12-10 13:25 | External Medical Summary | Summary of Care ---
Author Name Unknown Organization [facility] Address [address] [place] [address] Phone [phone] Care Team Providers Care Gaming Table Operator Name Role Phone Willam Fofana DO Primary Care Provider Encounter Details Date Type Department Care Team (Latest Contact Info) Description 08/05/2024 5:20 PM EDT - 08/05/2024 5:24 PM EDT Hospital Encounter Radiology Film File [address] [place] [address] Discharge Disposition: Home - Self [...] Each 5 05/31/20 24 Active Dexcom G6 Director Apparel DeviceIndications :DM type 2, not at goal [...] mRNA, LNP-s, No Pre serve, 2-Dose Series ([employer]) 09/12/2021,12/18/2020,11/27/2020 COVID-19, MRNA-LNP, 24-25, P R, 30MCG/0.3ML, IM, 12YRS AND ABOVE ([employer]-Comirnat) 11/07/2023 Hepatitis B, 20+ yrs 07/26/2015,03/01/2015,11/29 Pneumococcal Conjugate Vacci ne, 20-valent ([id number]) 12/22/2023,07/15/2022 Pneumococcal Polysaccharide PPV23 (Pneumovax) 02/26/2014 Seasonal [...] Description 09/18/2024 7:30 AM EST Imaging Radiology [facility] [address] [place] [address] 10/18/2024 10:00 AM EST [facility], [facility] [address] [place] [address] Rosie Price RN [address] [place] [address] 10/26/2024 7:30 AM EST [facility] [place] [facility] [place] [phone] [facility] [address] [place], [place] [address] [address] 11/08/2024 2:30 PM EST Nutrition Services Nutrition & Weight Management, [facility] [address] [place] [address] Mayuri Ernst RDN [address] [place] [address] 02/02/2025 10:15 AM EDT Office Visit [facility] 16 [place] [address] Mason Jean-Baptiste MD 16 [place] [address] 02/09/2025 11:40 AM EDT Office Visit [facility] [address] [facility] [place] [address] Willam Fofana, DO 200 [facility] [place] [address] 02/28/2025 8:00 AM EDT Hospital Encounter ENDO OSSC, Endoscopy Room OSS [address] [facility] [place] [phone] Kandice Arevalo MD [address] [place] [phone] 02/28/2025 8:00 AM EDT - 02/28/2025 8:30 AM EDT Surgery ENDO OSSC, Endoscopy Room OSS 132 [facility] [place] [phone] Kandice Arevalo MD [address] [place] [phone] COLONOSCOPY FLEXIBLE PROXIMAL DIAGNOSTIC Scheduled Procedures Name [...] 08/22/2022, Additional history exists HbA1c 01/30/2025 08/01/2024, 041 02/2024, 08/17/2023, Additional history exists Depression Monitoring [...] Date/Time Associated Diagnosis Comments RADIOLOGY EXAM - GENERAL RAD (IMAGES ONLY,NO REPORT) Routine 08/05/2024 5:20 PM EDT documented in this encounter Results * RADIOLOGY EXAM - GENERAL RAD (IMAGES ONLY,NO REPORT) (08/05/2024 5:20 PM EDT) 08/05/2024 5:16 PM EDT Narrative Scheduling, Silent - 09/15/2024 9:53 AM EST This is an imaging study not interpreted or resulted by a [facility] or [facility] contracted radiologist. us Willam Fofana DO RADIOLOGY (RAD GENERAL) Fin al Result documented in this encounter Care Teams Gaming Table Operator Relationship Specialty Start Date End Date Willam Fofana, DO 200 [facility] [place] [address] PCP - General Family Medicine 04/26/17 documented as of this encounter
--- OUTSIDE RECORDS SUMMARY | 2024-12-10 13:25 | External Medical Summary | Summary of Care ---
Author Name Unknown Organization [facility] Address [address] [place] [address] Phone [phone] Care Team Providers Care Air Brake Rigger Name Role Phone Willam Fofana DO Primary Care Provider Reason for Visit * Reason Onset Date Comments Test Results 09/20/2024 Unexpected or In determinate Encounter Details Date Type Department Care Team (Late st Contact Info) Description 09/20/2024 Telephone Laboratory, [place] [address] [place] [address] Willam Fofana, DO [address] [place] [address] Test Results (Unexpected or Indeterminate) [...] hemoglobin A1c goal of less than 7.0% ([facility]) Inject 100 Units under the skin in the morning and 100 Units before bedtime. 60 mL 3 10/19/19 24 Active NovoLOG FlexPen ReliOn 100 UNIT/ML Subcutaneous Solution Pen-injector (insulin aspart)Indication s:Type 2 diabetes mellitus with complication, with long-term current use of insulin ([facility]) INJECT 60 UNITS SUBCUTANEOUSLY WITH [...] Each 5 05/31/20 24 Active Dexcom G6 Icing Machine Operator DeviceIndications :DM type 2, not at [...] mRNA, LNP-s, No Pre serve, 2-Dose Series ([employer]) 09/12/2021,12/18/2020,11/27/2020 COVID-19, MRNA-LNP, 24-25, P R, 30MCG/0.3ML, IM, 12YRS AND ABOVE ([employer]-Comirnat) 11/07/2023 Hepatitis B, 20+ yrs 07/26/2015,03/01/2015,11/29 Pneumococcal Conjugate Vacci ne, 20-valent ([id number]) 12/22/2023,07/15/2022 Pneumococcal Polysaccharide PPV23 (Pneumovax) 02/26/2014 Seasonal [...] No 08/15/2024 Does the household have a [facility] source of income? (Household [...] encounter Miscellaneous Notes * Telephone Encounter - Jessica Oneal RN - 09/22/2024 8:21 AM EST I will forward this to the [facility] team, he is currently enrolled in their program, so not technically enrolled in . * Telephone Encounter - Willam Fofana DO - 09/21/2024 4:18 PM EST Could you please call Facundo and let me know if he is having any symptoms of pneumonia?? Let me know if you're not on his case anymore? * Telephone Encounter - Marta Chaparro OSA - 09/20/2024 2:20 PM EST Hello- The radiologist discovered an unexpected or indeterminate finding on Facundo Botello ([id number]) and asks that you review the following [...] Thank you, Marta Chaparro, ALEJANDRA Client Service [facility] documented in this encounter Plan of Treatment Upcoming Encounters Date Type Department Care Team (Latest Contact Info) Description 10/18/2024 10:00 AM EST Home Visit [facility] [address] [facility] [place] [address] Rosie Price RN 132 [facility] [place] [address] 10/26/2024 7:30 AM EST Office Visit Pharmacy, [address] [phone] [address] [address] 11/08/2024 2:30 PM EST Nutrition Services Nutrition & Weight Management, [facility] [address] [facility] [place] [address] Mayuri Ernst RDN 132 [facility] [place] [address] 02/02/2025 10:15 AM EDT Office Visit [facility] 16 [facility] [place] [address] Mason Jean-Baptiste MD [address] [place] [address] 02/09/2025 11:40 AM EDT Office Visit Family [facility] [address] [facility] [place] [address] Willam Fofana, 200 [facility] [place] [address] 02/28/2025 8:00 AM EDT Hospital Encounter ENDO OSSC, Endoscopy Room OSS [address] [facility] [place] [address] Kandice Arevalo MD [address] [place] [address] 02/28/2025 8:00 AM EDT - 02/28/2025 8:30 AM EDT Surgery ENDO OSS[facility], Endoscopy Room OSS [address] [facility] [place] [phone] Kandice Arevalo MD [address] [place] [phone] COLONOSCOPY FLEXIBLE PROXIMAL DIAGNOSTIC Scheduled Procedures Name [...] filedocumented as of this encounter Care Teams Air Brake Rigger Relationship Specialty Start Date End Date Willam Fofana DO [address] [place] [facility] [place] [address] PCP - General Family Medicine 04/26/17 documented as of this encounter
--- OUTSIDE RECORDS SUMMARY | 2024-12-10 13:25 | External Medical Summary | Summary of Care ---
Author Name Unknown Organization [facility] Address [address] [place] [address] Phone [phone] Care Team Providers Care Head Of Partner Development Name Role Phone Willam Fofana DO Primary Care Provider [phone] Reason for Visit * Reason Onset Date Comments Test Results 09/20/2024 Unexpected or In determinate Encounter Details Date Type Department Care Team (Late st Contact Info) Description 09/20/2024 Telephone Laboratory, [place] [address] [place] [address] Willam Fofana, DO [address] [place] [address] Test Results (Unexpected or Indeterminate) Allergies Active Allergy Reactions Criticality Noted Date Comments Amoxicillin-Pot Clavulanate Hives High 11/26/19 12 Sulfamethoxazole-Trimethopri m 02/07/2016 Insulin Glargine 01/21/2016 States he went in to CHF after one shot of insulin Other reaction(s): CHF Permethrin 04/27/2013 Shrimp Flavor 04/27/2013 documented as of this encounter (statuses as of 09/21/2024) Medications VITAMIN C 500 MG PO TABS [...] Each 5 05/31/20 24 Active Dexcom G6 Motorman/Woman DeviceIndications :DM type 2, not at goal [...] as of this encounter (statuses as of 09/21/2024) Active Problems Problem Noted Date Diagnosed Date [...] goal of less than 7.0% 06/05/2020 Old [place] (myocardial infarction) 09/25/2019 Type 2 diabetes mellitus [...] as of this encounter (statuses as of 09/21/2024) Resolved Problems Problem Noted Date Diagnosed Date [...] as of this encounter (statuses as of 09/21/2024) Immunizations Name Administration Dates Next Due COVID-19 mRNA, LNP-s, No Pre serve, 2-Dose Series ([employer] 09/12/2021,12/18/2020,11/27/2020 COVID-19, MRNA-LNP, 24-25, P R, 30MCG/0.3ML, IM, 12YRS AND ABOVE ([employer]Comirnat) 11/07/2023 Hepatitis B, 20+ yrs 07/26/2015,03/01/2015,11/29 Pneumococcal Conjugate Vacci ne, 20-valent ([id number]) 12/22/2023,07/15/2022 Pneumococcal Polysaccharide PPV23 (Pneumovax) 02/26/2014 Seasonal [...] No 08/15/2024 Does the household have a [facility] source of income? (Household - for [...] encounter Miscellaneous Notes * Telephone Encounter - Willam Fofana DO - 09/21/2024 4:18 PM EST Could you please call Facundo and let me know if he is having any symptoms of pneumonia?? Let me know if you're not on his case anymore? * Telephone Encounter - Marta Chaparro OSA - 09/20/2024 2:20 PM EST Hello- The radiologist discovered an unexpected or indeterminate finding on Facundo Botello ([id number]) and asks that you review the following [...] Thank you, Marta Chaparro, ALEJANDRA Client Service [facility] documented in this encounter Plan of Treatment Upcoming Encounters Date Type Department Care Team (Latest Contact Info) Description 10/18/2024 10:00 AM EST Home Visit [facility] [address] [facility] [place] [address] Rosie Price, RN 132 [facility] [place] [address] 10/26/2024 7:30 AM EST Office Visit Pharmacy, [facility] [address] [place] [phone] [place] [phone] [place] [address] 11/08/2024 2:30 PM EST Nutrition Services Nutrition & Weight Management, [facility] [address] [facility] [place] [address] Mayuri Ernst RDN 132 [facility] [place] [address] 02/02/2025 10:15 AM EDT Office Visit [facility] 16 [place] [address] Mason Jean-Baptiste MD 16 [place] [address] 02/09/2025 11:40 AM EDT Office Visit Family [facility] [address] [place] [address] Willam Fofana, [address] [place] [address] 02/28/2025 8:00 AM EDT Hospital Encounter ENDO OSSC, Endoscopy Room OSS [address] [place], [place] [phone] Kandice Arevalo MD [address] [place] [address] 02/28/2025 8:00 AM EDT - 02/28/2025 8:30 AM EDT Surgery ENDO O[facility], Endoscopy Room [facility] [address] [place] [phone] Kandice Arevalo MD [address] [place] [address] COLONOSCOPY FLEXIBLE PROXIMAL DIAGNOSTIC Scheduled Procedures [...] filedocumented as of this encounter Care Teams Head Of Partner Development Relationship Specialty Start Date End Date Willam Fofana DO [address] [place] [address] PCP - General Family Medicine 04/26/17 documented as of this encounter
--- OUTSIDE RECORDS SUMMARY | 2024-12-10 13:25 | External Medical Summary | Summary of Care ---
Author Name Unknown Organization [facility] [address] [address] Phone [phone] Care Team Providers Care Media Consultant Outside Sales Name Role Phone Brody Dejesus DO Primary Care Provider Reason for Visit * Reason Comments eRx-Medication Refill Encounter Details Date Type Department Care Team (Late st Contact Info) Description 09/14/2024 Refill Family Practice [facility] [place] [address] [place] [address] Brody Dejesus DO 200 [facility] [place] [address] Moderate episode of recurrent major depressive disorder (HCC) Allergies Active Allergy Reactions Criticality Noted Date Comments Amoxicillin-Pot Clavulanate Hives High 11/26/19 12 Sulfamethoxazole-Trimethopri m 02/07/2016 Insulin Glargine 01/21/2016 States he went in to CHF after one shot of insulin Other reaction(s): CHF Permethrin 04/27/2013 Shrimp Flavor 04/27/2013 documented as of this encounter (statuses as of 09/15/2024) Medications VITAMIN C 500 MG PO TABS [...] TABLET IN THE AFTERNOON 270 Tab 3 Active Additional Information Patient taking differently: 120 [...] goal of less than 7.0% ([facility]) Inject 100 Units under the [...] bedtime. Patient reports taking it twice/ day. 024 Active B-12 1000 MCG Oral Tablet Extended Release Take 1,000 mcg by mouth in the morning. Active metFORMIN HCl ER 750 MG Oral Tablet Extended Release 24 Hour (Glucophage XR)Indications:T ype 2 diabetes mellitus with diabetic neuropathy, with long-term current use of insulin ([facility]) Take 2 Tablets by mouth in the morning. 180 Tablet 3 024 Active Albuterol Sulfate HFA 108 (90 Base) MCG/ACT Inhalation Aerosol SolutionIndicati ons:Wheezing Inhale 2 Puffs by mouth every 4 hours as needed for Wheezing. 18 g 5 024 Active Arnuity Ellipta 100 MCG/ACT Inhalation Aerosol Powder Breath Activated (fluticasone Furoate) Inhale 1 Puff by mouth in the morning. 30 Each 5 024 Active Dexcom G6 Unmanned Equipment Operator DeviceIndication s:DM type 2, not at goal (HCC) Use as directed. E11.9 1 Each 024 Active Dexcom G6 SensorIndication s:DM type 2, not at goal (HCC) Use as directed. Change every 10 days 9 Each 3 09/08/20 24 11:22 AM EST 024 Active Dexcom G6 TransmitterIndic ations:DM type 2, not at goal (HCC) Use as directed. Change every 90 days E11.9 1 Each 3 024 Active Nitroglycerin 0.4 MG Sublingual Tablet Sublingual (Nitrostat)Indic ations:Inferior myocardial infarction (HCC) Place 1 Tablet under the tongue as needed for Pain, Chest. May repeat 3 times. If chest pain continues, call 911. 25 Tablet 11 024 Active Additional Information Patient not taking.Reported on 08/31/2024 Sertraline HCl 100 MG Oral Tablet (Zoloft)Indicati ons:Moderate episode of recurrent major depressive disorder (HCC) TAKE 1 TABLET BY MOUTH IN THE MORNING 90 Tablet 3 024 Active Sertraline HCl 100 MG Oral Tablet (Zoloft)Indicati ons:Moderate episode of recurrent major depressive disorder (HCC) Take 1 Tablet by mouth in the morning. 90 Tablet 3 023 09/15 Discontinued documented as of this encounter (statuses as of 09/15/2024) Active Problems Problem Noted Date Diagnosed Date [...] goal of less than 7.0% 06/05/2020 Old VT (myocardial infarction) 09/25/2019 Type 2 diabetes mellitus [...] as of this encounter (statuses as of 09/15/2024) Resolved Problems Problem Noted Date Diagnosed Date [...] as of this encounter (statuses as of 09/15/2024) Immunizations Name Administration Dates Next Due COVID-19 mRNA, LNP-s, No Pre serve, 2-Dose Series ([employer]) 09/12/2021,12/18/2020,11/27/2020 COVID-19, MRNA-LNP, 24-25, P R, 30MCG/0.3ML, IM, 12YRS AND ABOVE ([facility]-[facility]) 11/07/2023 Hepatitis B, 20+ yrs 07/26/2015,03/01/2015,11/29 Pneumococcal Conjugate Vacci ne, 20-valent ([id number]) 12/22/2023,07/15/2022 Pneumococcal Polysaccharide PPV23 (Pneumovax) 02/26/2014 Seasonal [...] No 08/15/2024 Does the household have a [facility] source of income? (Household - for ages [...] encounter Miscellaneous Notes * Telephone Encounter - Amina Haque RPh - 09/15/2024 11:40 AM ESTSigned Prescriptions: Disp Refills Sertraline HCl 100 MG Oral Tablet (Zoloft) 90 Tab*3 Sig: TAKE 1 TABLET BY MOUTH IN THE MORNINGAuthorizing Provider: BRODY DEJESUS User: AMINA HAQUE documented in this encounter Plan of Treatment Upcoming Encounters Date Type Department Care Team (Latest Contact Info) Description 09/18/2024 7:30 AM EST Imaging Radiology [facility] 1st [facility] [address] [facility] [place] [address] 10/18/2024 10:00 AM EST Home Visit [facility] [address] [facility] [place] [address] Rosie Price, RN 132 [facility] [place] [address] 10/26/2024 7:30 AM EST [facility] Visit [facility] [phone] [address] [address] 11/08/2024 2:30 PM EST Nutrition Services Nutrition & Weight Management, [facility] [address] [facility] [place] [address] Mayuri Ernst RDN [address] [facility] [place] [address] 02/02/2025 10:15 AM EDT Office Visit [facility] Eye [facility] [address] [facility] [place] [address] Mason Jean-Baptiste MD 16 [place] [address] 02/09/2025 11:40 AM EDT Office Visit Family Practice [facility] [place] 200 [facility] [place] [address] Brody Dejesus, DO [address] [facility] [place] [address] 02/28/2025 8:00 AM EDT Hospital Encounter ENDO [facility], Endoscopy Room O[facility] [address] [place] [phone] Kandice Arevalo MD [address] [place] [address] 02/28/2025 8:00 AM EDT - 02/28/2025 8:30 AM EDT Surgery ENDO [facility], Endoscopy Room O[facility] [address] [place] [phone] Kandice Arevalo MD [address] [place] [...] 2024 11/07/2023, 11/07/2023, 08/22/2022, Additional history exists Albumin/Creatinine Ratio 08/13/2024 023, 07/20/2023, 06/11/2021, Additional history exists HbA1c 01/30/2025 08/01/2024, 01/09, 08/17/2023, Additional history exists Depression Monitoring 03/27/2025 03/27/2024 Diabetic Foot Exam 06/30/2025 06/30/2024, 0 11/20/2022, 06/25/2021, Additional history exists GFR 08/01/2025 08/01/2024, 01/09, 11/13/2022, Additional history exists Diabetic Eye Exam 09/01/2025 09/01/2024, , 02/02/2024, Additional history exists Lipid Panel 08/31/2028 08/31/2023, 0706/2022, 06/11/2021, Additional history exists DTap/Tdap Vaccines (3 [...] episode of recurrent major depressive disorder (HCC) Moderate episode of recurrent major depressive disorder (HCC) History of colon polyps Personal history of colonic polyps documented in this encounter Care Teams Media Consultant Outside Sales Relationship Specialty Start Date End Date Brody Dejesus DO [address] [place] [address] PCP - General Family Medicine 04/26/17 documented as of this encounter
--- OUTSIDE RECORDS SUMMARY | 2024-12-10 13:25 | External Medical Summary | Summary of Care ---
Author Name Unknown Organization [facility] Address [address] [place] [address] Phone [phone] Care Team Providers Care Rn Sexual Assault Name Role Phone Willam Fofana DO Primary Care Provider [phone] Reason for Visit * Reason Onset Date Comments Test Results 09/20/2024 Unexpected or In determinate Encounter Details Date Type Department Care Team (Late st Contact Info) Description 09/20/2024 Telephone Laboratory, [facility] [address] [place] [address] Willam Fofana, DO [address] [place] [address] Test Results (Unexpected or Indeterminate) [...] hemoglobin A1c goal of less than 7.0% ([facility]) Inject 100 Units under the skin in the morning and 100 Units before bedtime. 60 mL 3 10/19/19 24 Active NovoLOG FlexPen ReliOn 100 UNIT/ML Subcutaneous Solution Pen-injector (insulin aspart)Indication s:Type 2 diabetes mellitus with complication, with long-term current use of insulin ([facility]) INJECT 60 UNITS SUBCUTANEOUSLY WITH BREAKFAST, [...] Each 5 05/31/20 24 Active Dexcom G6 Curriculum Consultant DeviceIndications :DM type 2, not at goal [...] mRNA, LNP-s, No Pre serve, 2-Dose Series ([employer]) 09/12/2021,12/18/2020,11/27/2020 COVID-19, MRNA-LNP, 24-25, P R, 30MCG/0.3ML, IM, 12YRS AND ABOVE ([employer]) 11/07/2023 Hepatitis B, 20+ yrs 07/26/2015,03/01/2015,11/29 Pneumococcal Conjugate Vacci ne, 20-valent ([id number]) 12/22/2023,07/15/2022 Pneumococcal Polysaccharide PPV23 (Pneumovax) 02/26/2014 Seasonal [...] No 08/15/2024 Does the household have a [facility]? (Household - [...] encounter Miscellaneous Notes * Telephone Encounter - Marta Chaparro OSA - 09/20/2024 2:20 PM EST Hello- The radiologist discovered an unexpected or indeterminate finding on Facundo Botello ([id number]) and asks that you review the following [...] Thank you, ALEJANDRA Ramos Client Service Rep [facility] documented in this encounter Plan of Treatment Upcoming Encounters Date Type Department Care Team (Latest Contact Info) Description 10/18/2024 10:00 AM EST [facility] [address] [facility] [place] [address] Rosie Price, RN [address] [place] [address] 10/26/2024 7:30 AM EST Office Visit [facility]acy, [facility] [place] [phone] [place], [address] [address] 11/08/2024 2:30 PM EST Nutrition Services Nutrition & Weight Management, [facility] [address] [facility] [place] [address] Mayuri Ernst RDN 132 [facility] [place] [address] 02/02/2025 10:15 AM EDT Office Visit [facility] Eye [facility] 16 [place] [address] Mason Jean-Baptiste MD 16 [place] [address] 02/09/2025 11:40 AM EDT Office Visit Family Practice [facility] [place] [address] [facility] [place] [address] Willam Fofana, DO 200 [facility] [place] [address] 02/28/2025 8:00 AM EDT Hospital Encounter ENDO [facility], Endoscopy Room [facility] [address] [facility] [place] [phone] Kandice Arevalo MD [address] [place], [place] [address] [place] [address] 02/28/2025 8:00 AM EDT - 02/28/2025 8:30 AM EDT Surgery ENDO [facility], Endoscopy Room OSS [address] [employer] [place] [phone] Kandice Arevalo MD [address] [place] [...] filedocumented as of this encounter Care Teams Rn Sexual Assault Relationship Specialty Start Date End Date Willam Fofana DO [address] [place] [address] PCP - General Family Medicine 04/26/17 documented as of this encounter
--- OUTSIDE RECORDS SUMMARY | 2024-12-10 13:25 | External Medical Summary | Summary of Care ---
Author Name Unknown Organization [facility] Address [address] [place] [address] Phone [phone] Care Team Providers Care Independent Agent Music Education Name Role Phone Willam Fofana DO Primary Care Provider Encounter Details Date Type Department Care Team (Latest Contact Info) Description 08/05/2024 5:25 PM EDT - 08/05/2024 6:54 PM EDT Hospital Encounter Radiology [facility] [address] [place] [address] Discharge Disposition: Home - Self [...] Each 5 05/31/20 24 Active Dexcom G6 Residential Coordinator DeviceIndications :DM type 2, not at goal [...] mRNA, LNP-s, No Pre serve, 2-Dose Series ([employer]) 09/12/2021,12/18/2020,11/27/2020 COVID-19, MRNA-LNP, 24-25, P R, 30MCG/0.3ML, IM, 12YRS AND ABOVE ([employer]) 11/07/2023 Hepatitis B, 20+ yrs 07/26/2015,03/01/2015,11/29 Pneumococcal Conjugate Vacci ne, 20-valent ([id number]) 12/22/2023,07/15/2022 Pneumococcal Polysaccharide PPV23 (Pneumovax) 02/26/2014 Seasonal [...] Description 09/18/2024 7:30 AM EST Imaging Radiology [facility] 1st [facility] [address] [place] [address] 10/18/2024 10:00 AM EST [facility], [facility] [address] [place] [address] Rosie Price RN [address] [place] [address] 10/26/2024 7:30 AM EST [facility] [place] [phone] [facility] [address] [place], [place] [address] [address] 11/08/2024 2:30 PM EST Nutrition Services Nutrition & Weight Management, [facility] [address] [place] [address] Mayuri Ernst RDN [address] [place] [address] 02/02/2025 10:15 AM EDT Office Visit [facility] Eye [facility] 16 [place] [address] Mason Jean-Baptiste MD 16 [place] [address] 02/09/2025 11:40 AM EDT Office [facility] [place] 200 [facility] [place] [address] Willam Fofana, DO 200 [facility] [place] [address] 02/28/2025 8:00 AM EDT Hospital Encounter ENDO [facility], Endoscopy Room OSS [address] [facility] [place] [phone] Kandice Arevalo MD [address] [place] [phone] 02/28/2025 8:00 AM EDT - 02/28/2025 8:30 AM EDT Surgery ENDO [facility], Endoscopy Room OSS 132 [facility] [place] [phone] Kandice Arevalo MD [address] [place] [id number] COLONOSCOPY FLEXIBLE PROXIMAL DIAGNOSTIC Scheduled Procedures Name [...] GENERAL RAD (IMAGES ONLY,NO REPORT) Routine 08/05/2024 5:25 PM EDT documented in this encounter Results * RADIOLOGY EXAM - GENERAL RAD (IMAGES ONLY,NO REPORT) (08/05/2024 5:25 PM EDT) 08/05/2024 5:16 PM EDT Narrative Scheduling, Silent - 09/15/2024 10:47 AM EST This is an imaging study not interpreted or resulted by a [facility] or [facility] contracted radiologist. us Willam Fofana DO RADIOLOGY (RAD GENERAL) Fin al Result documented in this encounter Care Teams Independent Agent Music Education Relationship Specialty Start Date End Date Willam Fofana, DO 200 [facility] [place] [place] [address] PCP - General Family Medicine 04/26/17 documented as of this encounter
--- OUTSIDE RECORDS SUMMARY | 2024-12-10 13:25 | External Medical Summary ---
Author Name Unknown Address Unknown Organization K01:[facility] [place] [address] [facility] [address] Laboratory Report Ordering Provider Test Date Status MICHELLE MCFADDEN 09/21/2024 08:31:00 Final Dried Blood Spot specimens h ave been validated for general health screening purposes only. This test should not be used for diagnosis or medical treatment without confirmation by other medically established means. The use of HbA1c to monitor glycemic status is based on normal hemoglobin and HbA composition, and should not be used in patients with abnormal hemoglobin that affects the half life of the red blood cell or the in vivo glycation rates.

This test was developed and its performance characteristics determined by [employer]. It has not been cleared or approved by the [place] Food and Drug Administration.

This test was performed as part of a [facility] Care-Gap fulfillment initiative.
null Observation Date Value Abnormality Reference (Units ) Status Hemoglobin A1c/Hemoglobin.total in DBS 09/21/2024 08:31:00 >8.0 Above high normal 4.0-5.6 (%) Final Glucose, estimated average 09/21/2024 08:31:00 >183 Above high normal <126 (mg/dL) Final Performing Location [facility] [place] [address] [facility] [address]
--- OUTSIDE RECORDS SUMMARY | 2024-12-10 13:26 | External Medical Summary ---
Author Name Unknown Address Unknown Organization K1H:LABOR[facility]ORY [facility] - [address] [place] [address] Laboratory Report Ordering Provider Test Date Status BOGDANVITODYLON 09/15/2024 07:09:00 Final Normal: <30 mg/g creatinine< br/>High: 30-300 mg/g creatinine
Very High: >300 mg/g creatinine
Nephrotic: >2200 mg/g creatinine Observation Date Value Abnormality Reference (Units ) Status Albumin, Urine 09/15/2024 07:09:00 <1.20 (mg/d L) Final This testing was performed a s part of a [facility] Care-Gap fulfillment initiative Creatinine, Urine 09/15/2024 07:09:00 25 (m g/dL) Final ALBUMIN/CREATININE RATIO, HIDE 09/15/2024 07:09:00 Uninterpretable Albumin/Creatinine ratio due to very low albumin and creatinine values. <30 (mg/g Creat) Final Performing Location LABORATORY [facility] - [address] [facility] [address]
--- OUTSIDE RECORDS SUMMARY | 2024-12-10 13:26 | External Medical Summary | Summary of Care ---
Author Name Unknown Organization [facility] Address [address] [facility] [place] [address] Phone [phone] Care Team Providers Care Yarn Spinner Name Role Phone Willam Fofana DO Primary Care Provider Reason for Visit * Reason Onset Date Comments [facility]: Acute 09/06/2024 Encounter Details Date Type Department Care Team (Late st Contact Info) Description 09/06/2024 Telephone [facility] [address] [facility] [place] [address] Edilma Méndez RN [address] [facility] [place] [phone] [facility]: Acute Allergies Active Allergy Reactions Criticality Noted Date Comments Amoxicillin-Pot Clavulanate Hives High 11/26/19 12 Sulfamethoxazole-Trimethopri m 02/07/2016 Insulin Glargine 01/21/2016 States he went in to [facility] after one shot of insulin Other reaction(s): CHF Permethrin 04/27/2013 Shrimp Flavor 04/27/2013 documented as of this encounter (statuses as of 09/06/2024) Medications VITAMIN C 500 MG PO TABS [...] morning. 90 Tablet 3 08/20/20 22 Active Sertraline HCl 100 MG Oral Tablet (Zoloft)Indicatio [...] hemoglobin A1c goal of less than 7.0% ([facility]) Inject 100 Units under the skin in the morning and 100 Units before bedtime. 60 mL 3 10/19/19 24 Active NovoLOG FlexPen ReliOn 100 UNIT/ML Subcutaneous Solution Pen-injector (insulin aspart)Indication s:Type 2 diabetes mellitus with complication, with long-term current use of insulin ([facility]) INJECT 60 UNITS SUBCUTANEOUSLY WITH BREAKFAST, 20 units with lunch AND 60 WITH SUPPER 130 mL 1 03/13/20 24 Active buPROPion HCl ER (XL) 300 [...] neuropathy, with long-term current use of insulin ([facility]) Take 2 Tablets by mouth [...] Each 5 05/31/20 24 Active Dexcom G6 Damper Worker DeviceIndications :DM type 2, not at goal ([facility]) Use as directed. E11.9 1 Each 06/02/20 24 Active Dexcom G6 SensorIndications :DM type 2, not at goal ([facility]) Use as directed. Change every 10 days 9 Each 3 4 4:38 PM EDT 06/16/20 24 Active Dexcom G6 TransmitterIndica tions:DM type 2, not at goal ([facility]) Use as directed. Change every [...] as of this encounter (statuses as of 09/06/2024) Active Problems Problem Noted Date Diagnosed Date [...] goal of less than 7.0% 06/05/2020 Old [facility] (myocardial infarction) 09/25/2019 Type 2 diabetes mellitus [...] as of this encounter (statuses as of 09/06/2024) Resolved Problems Problem Noted Date Diagnosed Date [...] as of this encounter (statuses as of 09/06/2024) Immunizations Name Administration Dates Next Due COVID-19 mRNA, LNP-s, No Pre serve, 2-Dose Series ([employer]) 09/12/2021,12/18/2020,11/27/2020 COVID-19, MRNA-LNP, 24-25, P R, 30MCG/0.3ML, IM, 12YRS AND ABOVE ([employer]-Comirnat) 11/07/2023 Hepatitis B, 20+ yrs 07/26/2015,03/01/2015,11/29 Pneumococcal Conjugate Vacci ne, 20-valent ([id number]) 12/22/2023,07/15/2022 Pneumococcal Polysaccharide PPV23 (Pneumovax) 02/26/2014 Seasonal [...] encounter Miscellaneous Notes * Telephone Encounter - Collins Couch MD - 09/06/2024 12:22 PM EST Thank you for the picture. No change in recommended plan. * Telephone Encounter - Edilma Méndez RN - 09/06/2024 11:59 AM EST Images from the original note were not included. Pt was able to send a picture of the affected area. Edilma Méndez RN [facility] Intake [phone] * Telephone Encounter - Melissa Lagunas RN - 09/06/2024 11:50 AM EST Call from patient, wanting to know if nurse got the fax he sent with picture Made him aware our phones are desk phones, not cell phones, so no fax will come through Provided my email address, he will attempt to attach the photo and send it Prior compo conveyor operator notified of same Melissa Lagunas RN, BSN dietetic aidePoly Operator [phone] option #1 * Telephone Encounter - Collins Couch MD - 09/06/2024 11:40 AM EST Oral abx indicated only if signs of cellulitis (expanding redness, tenderness, swelling or fever) despite what sounds like a furuncle draining spontaneously. Otherwise the management is continued warm compresses so it can drain naturally. Collins Couch MD, [facility], [facility], [facility] Remote Medical [employer] ([employer] [facility] [employer]) [facility] at Available on stiQRd * Telephone Encounter - Edilma Méndez RN - 09/06/2024 10:59 AM EST [facility] computer system specialist Acute Call Date: 09/06/2024 Time: 11:00 AM Name: Facundo Botello : 1960 Caller: Patient HPI: Facundo Botello is a 64 year old male that is calling [facility] to report : Pt had a pimple like area on his face with a mast. He used hot water bottle to the area then put cold wash cloth on which caused the area to open and drain luevano drainage. He reports: "It was nasty." Pt applied black salve last night hs. Today the area has a white head on it and pt reports he was instructed by his girlfriend to call [facility] to obtain ABX. Pt reports the area is red dn was seeping last night. Left cheek is tender to touch and pt feels there is fluid in the area again. No temp. No bloody drainage. He was unable e to describe exactly what the drainage looked like other than luevano colored. He did not detect odor. Pt is concerned for infection. He has DM Type II and takes insulin and Metformin. He is unable to send a picture. Nursing Assessment: Patient's chief complaint for this call: Integumentary Pain Denies pain Baseline Assessment Able to performing ADLs at baseline (walking, daily tasks, etc.): Yes Chief Complaint is related to a chronic condition: No Patient prescribed oxygen? No Patient has been ordered DME equipment (assistive devices, respiratory equipment, etc.): No Medication Reconciliation: (See medication list) Received flu shot this season: Unknown Taking medication as ordered: Yes Medications ordered/taking to treat reason for call: Yes, PRN medication(s) Home remedy Heart failure symptoms: No COPD exacerbation symptoms: No Reinforcement Education: Keep area clean and dry. Do not touch the area. Will send for recommendation for ABX If fever develops or drainage increases or sxs worsen call [facility]. Treatment/Plan: (need to report) Level of call: Non-Acute Recommended treatment plan: Clinical advice given over the phone Routing to Care Team for ABX treatment to prevent cellulitis. Edilma Méndez RN [facility] Intake [phone] Call back instructions provided to patient. documented in this encounter Plan of Treatment Upcoming Encounters Date Type Department Care Team (Latest Contact Info) Description 09/08/2024 2:30 PM EST Home Visit [facility] [address] [place] [address] Rosie Price RN [address] [place] [address] 09/12/2024 9:30 AM EST Hospital Encounter ENDO [facility], Endoscopy Room [facility] [address] [place] [phone] Kandice Arevalo MD [address] [place] [address] 09/12/2024 9:30 AM EST - 09/12/2024 10:00 AM EST Surgery ENDO [facility], Endoscopy Room [facility] [address] [facility] [place] [phone] Kandice Aervalo MD [address] [place] [address] COLONOSCOPY FLEXIBLE PROXIMAL DIAGNOSTIC 10/26/2024 7:30 AM EST Office Visit Pharmacy, [facility] [address] [place] [address] [facility] [address] [place] [address] 02/02/2025 10:15 AM EDT Office Visit [address] [address] Mason Jean-Baptiste MD 16 [place] [address] 02/09/2025 11:40 AM EDT Office Visit Family Practice [facility] [address] [place] [address] Willam Fofana, DO [address] [place] [address] Scheduled Procedures Name Priority Associated Diagnoses Date/Ti [...] filedocumented as of this encounter Care Teams Yarn Spinner Relationship Specialty Start Date End Date Willam Fofana DO [address] [place] [address] PCP - General Family Medicine 04/26/17 documented as of this encounter
--- OUTSIDE RECORDS SUMMARY | 2024-12-10 13:26 | External Medical Summary | Summary of Care ---
Author Name Unknown Organization [facility] Address [address] [place] [address] Phone [phone] Care Team Providers Care Child Life Specialist Name Role Phone Willam Fofana DO Primary Care Provider Reason for Visit * Reason Onset Date Comments [facility]: Acute 09/06/2024 Encounter Details Date Type Department Care Team (Late st Contact Info) Description 09/06/2024 Telephone [facility], [facility] [address] [facility] [place] [address] Edilma Méndez RN [address] [facility] [place] [phone] [facility]: Acute Allergies Active Allergy [...] 5 05/31/20 24 Active Dexcom G6 Director Search DeviceIndications :DM type 2, not at goal ([facility]) Use as directed. E11.9 1 Each 06/02/20 24 Active Dexcom G6 SensorIndications :DM type 2, not at goal ([facility]) Use as directed. Change every 10 days 9 Each 3 4 4:38 PM EDT 06/16/20 24 Active Dexcom G6 TransmitterIndica tions:DM type 2, not at goal ([facility]) Use as directed. Change every 90 [...] mRNA, LNP-s, No Pre serve, 2-Dose Series ([employer]) 09/12/2021,12/18/2020,11/27/2020 COVID-19, MRNA-LNP, 24-25, P R, 30MCG/0.3ML, IM, 12YRS AND ABOVE ([employer]-Comirnat) 11/07/2023 Hepatitis B, 20+ yrs 07/26/2015,03/01/2015,11/29 Pneumococcal Conjugate Vacci ne, 20-valent ([id number]) 12/22/2023,07/15/2022 Pneumococcal Polysaccharide PPV23 (Pneumovax) 02/26/2014 Seasonal [...] Encounter - Edilma Méndez RN - 09/06/2024 12:33 PM EST PC placed to pt with [facility] recommendations. Advised pt to call back to [facility] if sxs worsen. Edilma Méndez RN [facility] Intake [phone] * Telephone Encounter - Collins Couch MD - 09/06/2024 12:22 PM EST Thank you for the picture. No change in recommended plan. * Telephone Encounter - Edilma Méndez RN - 09/06/2024 11:59 AM EST Images from the original note were not included. Pt was able to send a picture of the affected area. Edilma Méndez RN [facility] Intake [phone] * Telephone Encounter - Melissa Lagunas RN - 09/06/2024 11:50 AM EST Call from patient, wanting to know if nurse got the fax he sent with picture Made him aware our phones are desk phones, not cell phones, so no fax will come through Provided my email address, he will attempt to attach the photo and send it Prior scrap hoist operator notified of same Melissa Lagunas RN, BSN return agent airportBriar Cutter [phone] option #1 * Telephone Encounter - Collins Couch MD - 09/06/2024 11:40 AM EST Oral abx indicated only if signs of cellulitis (expanding redness, tenderness, swelling or fever) despite what sounds like a furuncle draining spontaneously. Otherwise the management is continued warm compresses so it can drain naturally. Collins Couch MD, [facility], [employer]FP [employer] ([facility]) [facility] at Available on [email or web address].io [facility] * Telephone Encounter - Edilma Méndez RN - 09/06/2024 10:59 AM EST [facility] cotton tier Acute Call Date: 09/06/2024 Time: 11:00 AM Name: Facundo Botello : 1960 Caller: Patient HPI: Facundo Botello is a 64 year old male that is calling [facility] Intake to report : Pt [...] was instructed by his girlfriend to call [facility] to obtain ABX. Pt reports the area [...] or drainage increases or sxs worsen call [facility]. Treatment/Plan: (need to report) Level of call: Non-Acute Recommended treatment plan: Clinical advice given over the phone Routing to Care Team for ABX treatment to prevent cellulitis. Edilma Méndez RN [facility] Intake [phone] Call back instructions provided to patient. documented in this encounter Plan of Treatment Upcoming Encounters Date Type Department Care Team (Latest Contact Info) Description 09/08/2024 2:30 PM EST Home Visit [facility] [place] [address] [facility] [place] [address] Rosie Price RN 132 [facility] [place] [address] 09/12/2024 9:30 AM EST Hospital Encounter ENDO OSS, Endoscopy Room [facility] [address] [facility] [place] [phone] Kandice Arevalo MD [address] [place] [address] 09/12/2024 9:30 AM EST - 09/12/2024 10:00 AM EST Surgery ENDO [facility], Endoscopy Room [facility] [address] [facility] [place] [phone] Kandice Arevalo MD [address] [place] [address] COLONOSCOPY FLEXIBLE PROXIMAL DIAGNOSTIC 10/26/2024 7:30 AM EST Office [place] [address] [place] [phone] [address] [address] 02/02/2025 10:15 AM EDT Office Visit [address] [address] Mason Jean-Baptiste MD [address] [place] [address] 02/09/2025 11:40 AM EDT Office Visit Family Practice [facility] [address] [facility], [place] [address] Willam Fofana, [address] [place] [address] Scheduled Procedures Name Priority Associated Diagnoses Date/Ti [...] filedocumented as of this encounter Care Teams Child Life Specialist Relationship Specialty Start Date End Date Willam Fofana DO [address] [place] [address] PCP - General Family Medicine 04/26/17 documented as of this encounter
--- OUTSIDE RECORDS SUMMARY | 2024-12-10 13:26 | External Medical Summary | Summary of Care ---
Author Name Unknown Organization [facility] Address [address] [facility] [place] [address] Phone [phone] Care Team Providers Care Product Development Ecologist Name Role Phone Willam Fofana DO Primary Care Provider Reason for Visit * Reason Onset Date Comments [facility]: Acute 09/06/2024 Encounter Details Date Type Department Care Team (Late st Contact Info) Description 09/06/2024 Telephone [facility], [facility] [address] [facility] [place] [address] Edilma Méndez RN [address] [facility] [place] [phone] [facility]: Acute Allergies Active Allergy [...] A1c goal of less than 7.0% ([facility]) Inject 100 Units under the skin in the morning and 100 Units before bedtime. 60 mL 3 10/19/19 24 Active NovoLOG FlexPen ReliOn 100 UNIT/ML Subcutaneous Solution Pen-injector (insulin aspart)Indication s:Type 2 diabetes mellitus with complication, with long-term current use of insulin ([facility]) INJECT 60 UNITS SUBCUTANEOUSLY [...] with long-term current use of insulin ([facility]) Take 2 Tablets by [...] Each 5 05/31/20 24 Active Dexcom G6 Supervisor Metal Cans DeviceIndications :DM type 2, not at goal ([facility]) Use as directed. E11.9 1 Each 06/02/20 24 Active Dexcom G6 SensorIndications :DM type 2, not at goal ([facility]) Use as directed. Change every 10 days 9 Each 3 4 4:38 PM EDT 06/16/20 24 Active Dexcom G6 TransmitterIndica tions:DM type 2, not at goal ([facility]) Use as directed. Change [...] mRNA, LNP-s, No Pre serve, 2-Dose Series ([employer]) 09/12/2021,12/18/2020,11/27/2020 COVID-19, MRNA-LNP, 24-25, P R, 30MCG/0.3ML, IM, 12YRS AND ABOVE ([employer]-Comirnat) 11/07/2023 Hepatitis B, 20+ yrs 07/26/2015,03/01/2015,11/29 Pneumococcal Conjugate Vacci ne, 20-valent ([id number]) 12/22/2023,07/15/2022 Pneumococcal Polysaccharide PPV23 (Pneumovax) 02/26/2014 Seasonal [...] encounter Miscellaneous Notes * Telephone Encounter - Melissa Lagunas RN - 09/06/2024 11:50 AM EST Call from patient, wanting to know if nurse got the fax he sent with picture Made him aware our phones are desk phones, not cell phones, so no fax will come through Provided my email address, he will attempt to attach the photo and send it Prior community relations officer notified of same Melissa Lagunas, RN, BSN bar tackerWaste Disposal Plant Operator [phone] option #1 * Telephone Encounter - Collins Couch MD - 09/06/2024 11:40 AM EST Oral abx indicated only if signs of cellulitis (expanding redness, tenderness, swelling or fever) despite what sounds like a furuncle draining spontaneously. Otherwise the management is continued warm compresses so it can drain naturally. Collins Couch MD, [facility], [facility], FAAFP [facility] ([facility]) [facility] at Available on [employer] * Telephone Encounter - Edilma Méndez RN - 09/06/2024 10:59 AM EST [facility] billet worker Acute Call Date: 09/06/2024 Time: 11:00 AM Name: Facundo Botello : 1960 Caller: Patient HPI: Facundo Botello is a 64 year old male that is calling [employer] at Home Intake to report : Pt [...] was instructed by his girlfriend to call [facility] to obtain ABX. Pt reports the area [...] or drainage increases or sxs worsen call [facility]. Treatment/Plan: (need to report) Level of call: Non-Acute Recommended treatment plan: Clinical advice given over the phone Routing to Care Team for ABX treatment to prevent cellulitis. Edilma Méndez RN [facility] Intake [phone] Call back instructions provided to patient. documented in this encounter Plan of Treatment Upcoming Encounters Date Type Department Care Team (Latest Contact Info) Description 09/08/2024 2:30 PM EST Home Visit [facility] 132 [facility] [place] [address] Rosie Price RN 132 [facility] [place] [address] 09/12/2024 9:30 AM EST Hospital Encounter ENDO [facility], Endoscopy Room [facility] [address] [facility] [place] [phone] Kandice Arevalo MD [address] [place] [address] 09/12/2024 9:30 AM EST - 09/12/2024 10:00 AM EST Surgery ENDO [facility], Endoscopy Room [facility] [address] [facility] [place] [address] Kandice Arevalo MD [address] [place] [address] COLONOSCOPY FLEXIBLE PROXIMAL DIAGNOSTIC 10/26/2024 7:30 AM EST [facility] [address] [facility] [place] [phone] [place] [address] [address] 02/02/2025 10:15 AM EDT Office Visit [facility] [address] [place] [address] Mason Jean-Baptiste MD [address] [place] [address] 02/09/2025 11:40 AM EDT Office Visit Family Practice [place] [address] [facility] [place] [address] Willam Fofana, [address] [facility] [place] [address] Scheduled Procedures Name Priority Associated Diagnoses Date/Ti [...] filedocumented as of this encounter Care Teams Product Development Ecologist Relationship Specialty Start Date End Date Willam Fofana DO [address] [place] [address] PCP - General Family Medicine 04/26/17 documented as of this encounter
--- OUTSIDE RECORDS SUMMARY | 2024-12-10 13:26 | External Medical Summary | Summary of Care ---
Author Name Unknown Organization [facility] Address [address] [place] [address] Phone [phone] Care Team Providers Care Heavy Forger Helper Name Role Phone Willam Fofana DO Primary Care Provider Encounter Details Date Type Department Care Team (Late st Contact Info) Description 08/05/2024 Orders Only Family Practice [facility] [address] [place] [address] Willam Fofana DO [address] [place] [address] Allergies Active Allergy Reactions Criticality Noted Date Comments Amoxicillin-Pot Clavulanate Hives High 11/26/19 12 Sulfamethoxazole-Trimethopri m 02/07/2016 Insulin Glargine 01/21/2016 States he went in to [facility] after one shot of insulin Other reaction(s): [...] of less than 7.0% ([facility]) Inject 100 Units under the skin [...] current use of insulin ([facility]) Take 2 Tablets by mouth in [...] Each 5 05/31/20 24 Active Dexcom G6 K9 Handler DeviceIndications :DM type 2, not at goal [...] mRNA, LNP-s, No Pre serve, 2-Dose Series ([employer]) 09/12/2021,12/18/2020,11/27/2020 COVID-19, MRNA-LNP, 24-25, P R, 30MCG/0.3ML, IM, 12YRS AND ABOVE ([employer]-Comirnaty) 11/07/2023 Hepatitis B, 20+ yrs 07/26/2015,03/01/2015,11/29 Pneumococcal Conjugate Vacci ne, 20-valent ([id number]) 12/22/2023,07/15/2022 Pneumococcal Polysaccharide PPV23 (Pneumovax) 02/26/2014 Seasonal [...] Description 09/18/2024 7:30 AM EST Imaging Radiology [address] [place] [address] 10/18/2024 10:00 AM EST [facility] [address] [address] Rosie Price RN [address] [place] [address] 10/26/2024 7:30 AM EST Office Visit Pharmacy, [facility] [address] [phone] Jet Haro [address] [place] [address] 11/08/2024 2:30 PM EST Nutrition Services Nutrition & Weight Management, [facility] [place] [address] Mayuri Ernst RDN [address] [place] [address] 02/02/2025 10:15 AM EDT Office Visit [facility] [address] [place] [address] Mason Jean-Baptiste MD 16 [place] [address] 02/09/2025 11:40 AM EDT Office Visit [facility] [address] [place] [address] Willam Fofana, [address] [place] [address] 02/28/2025 8:00 AM EDT Hospital Encounter ENDO [facility], Endoscopy Room [facility] [address] [facility] [place] [phone] Kandice Arevalo MD [address] [place] [address] 02/28/2025 8:00 AM EDT - 02/28/2025 8:30 AM EDT Surgery ENDO [facility], Endoscopy Room [facility] [address] [place] [phone] Kandice Arevalo MD [address] [place] [address] COLONOSCOPY FLEXIBLE PROXIMAL DIAGNOSTIC Scheduled Procedures Name [...] study not interpreted or resulted by a [employer]er or [email or web address] contracted radiologist. Willam Fofana DO RAD CT Final Resul t documented in this encounter Care Teams Heavy Forger Helper Relationship Specialty Start Date End Date Willam Fofana DO 200 [place] [address] PCP - General Family Medicine 04/26/17 documented as of this encounter
--- OUTSIDE RECORDS SUMMARY | 2024-12-10 13:26 | External Medical Summary | Summary of Care ---
Author Name Unknown Organization [facility] Address [address] [place] [address] Phone [phone] Care Team Providers Care Spaghetti Machine Operator Name Role Phone Willam Fofana DO Primary Care Provider Encounter Details Date Type Department Care Team (Late st Contact Info) Description 09/12/2024 Orders Only Family Practice [facility] [address] [place] [address] Willam Fofana DO [address] [place] [address] Allergies Active Allergy Reactions Criticality Noted Date Comments Amoxicillin-Pot Clavulanate Hives High 11/26/19 12 Sulfamethoxazole-Trimethopri m 02/07/2016 Insulin Glargine 01/21/2016 States he went in to [facility] after one shot of insulin Other reaction(s): CHF Permethrin 04/27/2013 Shrimp Flavor 04/27/2013 documented as of this encounter (statuses as of 09/12/2024) Medications VITAMIN C 500 MG PO TABS [...] A1c goal of less than 7.0% ([facility]) Inject 100 Units under the skin in [...] with long-term current use of insulin ([facility]) Take 2 Tablets by mouth in [...] Each 5 05/31/20 24 Active Dexcom G6 Skate Hop DeviceIndications :DM type 2, not at goal [...] as of this encounter (statuses as of 09/12/2024) Active Problems Problem Noted Date Diagnosed Date [...] as of this encounter (statuses as of 09/12/2024) Resolved Problems Problem Noted Date Diagnosed Date [...] as of this encounter (statuses as of 09/12/2024) Immunizations Name Administration Dates Next Due COVID-19 mRNA, LNP-s, No Pre serve, 2-Dose Series ([employer]) 09/12/2021,12/18/2020,11/27/2020 COVID-19, MRNA-LNP, 24-25, P R, 30MCG/0.3ML, IM, 12YRS AND ABOVE ([employer]-Comirnaty) 11/07/2023 Hepatitis B, 20+ yrs 07/26/2015,03/01/2015,11/29 Pneumococcal Conjugate Vacci ne, 20-valent ([id number]) 12/22/2023,07/15/2022 Pneumococcal Polysaccharide PPV23 (Pneumovax) 02/26/2014 Seasonal [...] 10:00 AM EST [facility] [address] [place] [address] Rosie Price RN 132 [facility] [place] [address] 10/26/2024 7:30 AM EST Office Visit Pharmacy, Tahir Christianson [address] [place] [phone] [facility] [address] [place] [address] [place] [address] 11/08/2024 2:30 PM EST Nutrition Services Nutrition & Weight Management, [facility] [address] [place] [address] Mayuri Ernst RDN [address] [place] [address] 02/02/2025 10:15 AM EDT Office Visit [facility] [address] [place] [address] Mason Jean-Baptiste MD 16 [place] [address] 02/09/2025 11:40 AM EDT Office Visit [facility] [address] [facility] [place] [address] Willam Fofana, [address] [facility] [place] [address] 02/28/2025 8:00 AM EDT Hospital Encounter ENDO OSS, Endoscopy Room [facility] [address] [facility] [place] [phone] Kandice Arevalo MD [address] [place] [address] 02/28/2025 8:00 AM EDT - 02/28/2025 8:30 AM EDT Surgery ENDO OSS, Endoscopy Room [facility] [address] [place] [phone] Kandice Arevalo MD [address] [place] [phone] COLONOSCOPY FLEXIBLE PROXIMAL DIAGNOSTIC Scheduled Procedures Name [...] 11/13/2022, Additional history exists Diabetic Eye Exam 09/12/2025 09/01/2024, , 02/02/2024, Additional history exists Lipid [...] Procedure Name Priority Date/Time Associated Diagnosis Comments DIABETIC EYE EXAM Routine 09/01/2024 documented in this encounter Results * DIABETIC EYE EXAM (09/01/2024) 09/01/2024 us Zayra Ahn OD OTHER Final Res ult OUTSIDE LAB (SEE SCANNED REPORT) documented in this encounter Care Teams Spaghetti Machine Operator Relationship Specialty Start Date End Date Willam Fofana DO [address] [place] [address] PCP - General Family Medicine 04/26/17 documented as of this encounter
--- OUTSIDE RECORDS SUMMARY | 2024-12-10 13:26 | External Medical Summary | Summary of Care ---
Author Name Unknown Organization [facility] Address [address] [facility] [address] Phone [phone] Care Team Providers Care Juice Bar Team Member Name Role Phone Willam Fofana DO Primary Care Provider Reason for Visit * Reason Onset Date Comments [facility]: Acute 09/06/2024 Encounter Details Date Type Department Care Team (Late st Contact Info) Description 09/06/2024 Telephone [facility] [address] [facility] [place] [address] Edilma Méndez RN [address] [facility] [place] [phone] [facility]: Acute Allergies Active Allergy [...] goal of less than 7.0% ([facility]) Inject 100 Units under the skin in the morning and 100 Units before bedtime. 60 mL 3 10/19/19 24 Active NovoLOG FlexPen ReliOn 100 UNIT/ML Subcutaneous Solution Pen-injector (insulin aspart)Indication s:Type 2 diabetes mellitus with complication, with long-term current use of insulin ([facility]) INJECT 60 UNITS SUBCUTANEOUSLY WITH [...] neuropathy, with long-term current use of insulin ([facility]) Take 2 Tablets by mouth [...] Each 5 05/31/20 24 Active Dexcom G6 Solid Waste Manager DeviceIndications :DM type 2, not at goal ([facility]) Use as directed. E11.9 1 Each 06/02/20 24 Active Dexcom G6 SensorIndications :DM type 2, not at goal ([facility]) Use as directed. Change every 10 days 9 Each 3 4 4:38 PM EDT 06/16/20 24 Active Dexcom G6 TransmitterIndica tions:DM type 2, not at goal ([facility]) Use as directed. Change every [...] goal of less than 7.0% 06/05/2020 Old [place] (myocardial infarction) 09/25/2019 Type 2 diabetes mellitus [...] mRNA, LNP-s, No Pre serve, 2-Dose Series ([employer]) 09/12/2021,12/18/2020,11/27/2020 COVID-19, MRNA-LNP, 24-25, P R, 30MCG/0.3ML, IM, 12YRS AND ABOVE ([employer]-Comirnat) 11/07/2023 Hepatitis B, 20+ yrs 07/26/2015,03/01/2015,11/29 Pneumococcal Conjugate Vacci ne, 20-valent ([id number]) 12/22/2023,07/15/2022 Pneumococcal Polysaccharide PPV23 (Pneumovax) 02/26/2014 Seasonal [...] of the affected area. Edilma Méndez RN [facility] Intake [phone] * Telephone Encounter - Melissa Lagunas RN - 09/06/2024 11:50 AM EST Call from patient, wanting to know if nurse got the fax he sent with picture Made him aware our phones are desk phones, not cell phones, so no fax will come through Provided my email address, he will attempt to attach the photo and send it Prior vice president talent management notified of same Melissa Lagunas, RN, BSN associate teacherPrincipal Examiner [phone] option #1 * Telephone Encounter - Collins Couch MD - 09/06/2024 11:40 AM EST Oral abx indicated only if signs of cellulitis (expanding redness, tenderness, swelling or fever) despite what sounds like a furuncle draining spontaneously. Otherwise the management is continued warm compresses so it can drain naturally. Collins Couch MD, [facility], [facility], [facility] Remote Medical Command ([facility] Available on [employer] * Telephone Encounter - Edilma Méndez RN - 09/06/2024 10:59 AM EST [facility] mobile health vehicle operator Acute Call Date: 09/06/2024 Time: 11:00 AM Name: Facundo Botello : 1960 Caller: Patient HPI: Facundo Botello is a 64 year old male that is calling [facility] to report : Pt [...] was instructed by his girlfriend to call [facility] to obtain ABX. Pt reports the [...] or drainage increases or sxs worsen call [facility]. Treatment/Plan: (need to report) Level of call: Non-Acute Recommended treatment plan: Clinical advice given over the phone Routing to Care Team for ABX treatment to prevent cellulitis. Edilma Méndez RN [facility] Intake [phone] Call back instructions provided to patient. documented in this encounter Plan of Treatment Upcoming Encounters Date Type Department Care Team (Latest Contact Info) Description 09/08/2024 2:30 PM EST Home Visit [facility] [address] [place] [address] Rosie Price RN [address] [place] [address] 09/12/2024 9:30 AM EST Hospital Encounter ENDO [facility]SSC, Endoscopy Room [facility] [address] [place] [phone] Kandice Arevalo MD [address] [place] [address] 09/12/2024 9:30 AM EST - 09/12/2024 10:00 AM EST Surgery ENDO O[facility]C, Endoscopy Room [facility] [address] [place] [phone] Kandice Arevalo MD [address] [place] [address] COLONOSCOPY FLEXIBLE PROXIMAL DIAGNOSTIC 10/26/2024 7:30 AM EST Office Visit [facility], [facility] [address] [place] [phone] [place], [address] [address] 02/02/2025 10:15 AM EDT Office Visit [facility] [address] [place] [address] Mason Jean-Baptiste MD 16 [place] [address] 02/09/2025 11:40 AM EDT Office Visit Family Practice [facility] [address] [facility] [place] [address] Willam Fofana, DO [address] [facility] [place] [address] Scheduled Procedures Name Priority Associated Diagnoses Date/Ti [...] 06/25/2021, Additional history exists GFR 08/01/2025 08/01/2024, 04/1 02/2024, 11/13/2022, Additional history exists Lipid Panel 08/31/2028 08/31/2023, 07/06/2022, 06/11/2021, Additional history exists DTap/Tdap Vaccines (3 [...] filedocumented as of this encounter Care Teams Juice Bar Team Member Relationship Specialty Start Date End Date Willam Fofana DO [address] [place] [address] PCP - General Family Medicine 04/26/17 documented as of this encounter
--- OUTSIDE RECORDS SUMMARY | 2024-12-10 13:26 | External Medical Summary | Summary of Care ---
Author Name Unknown Organization [facility] Address [address] [place] [address] Phone [phone] Care Team Providers Care Electrical Cad Technician Name Role Phone Willam Fofana DO Primary Care Provider Encounter Details Date Type Department Care Team (Late st Contact Info) Description 08/05/2024 Orders Only Family Practice [facility] [address] [place] [address] Willam Fofana DO [address] [place] [address] Allergies Active Allergy Reactions Criticality Noted Date Comments Amoxicillin-Pot Clavulanate Hives High 11/26/19 12 Sulfamethoxazole-Trimethopri m 02/07/2016 Insulin Glargine 01/21/2016 States he went in to [facility] after one shot of insulin Other [...] goal of less than 7.0% ([facility]) Inject 100 Units under the [...] long-term current use of insulin ([facility]) Take 2 Tablets by mouth [...] Each 5 05/31/20 24 Active Dexcom G6 Collections Manager DeviceIndications :DM type 2, not at [...] goal of less than 7.0% 06/05/2020 [place] (myocardial infarction) 09/25/2019 Type 2 diabetes mellitus [...] mRNA, LNP-s, No Pre serve, 2-Dose Series ([employer]) 09/12/2021,12/18/2020,11/27/2020 COVID-19, MRNA-LNP, 24-25, P R, 30MCG/0.3ML, IM, 12YRS AND ABOVE ([employer]-Comirnaty) 11/07/2023 Hepatitis B, 20+ yrs 07/26/2015,03/01/2015,11/29 Pneumococcal Conjugate Vacci ne, 20-valent ([id number]) 12/22/2023,07/15/2022 Pneumococcal Polysaccharide PPV23 (Pneumovax) 02/26/2014 Seasonal [...] Description 09/18/2024 7:30 AM EST Imaging Radiology [address] [place] [address] 10/18/2024 10:00 AM EST [facility] [address] [place] [address] Rosie Price RN [address] [place] [address] 10/26/2024 7:30 AM EST Office Visit Pharmacy, Tahir Palacios [address] [place] [phone] Jet Haro [address] [place] [address] 11/08/2024 2:30 PM EST Nutrition Services Nutrition & Weight Management, [facility] [place] [address] Mayuri Ernst RDN [address] [place] [address] 02/02/2025 10:15 AM EDT Office Visit [facility] [address] [place] [address] Mason Jean-Baptiste MD 16 [place] [address] 02/09/2025 11:40 AM EDT Office Visit [facility] [address] [place] [address] Willam Fofana, [address] [place] [address] 02/28/2025 8:00 AM EDT Hospital Encounter ENDO OSSC, Endoscopy Room [facility] [address] [facility] [place] [phone] Kandice Arevalo MD [address] [place] [address] 02/28/2025 8:00 AM EDT - 02/28/2025 8:30 AM EDT Surgery ENDO OSS, Endoscopy Room [facility] [address] [place] [phone] Kandice Arevalo MD [address] [place] [address] COLONOSCOPY FLEXIBLE PROXIMAL DIAGNOSTIC Scheduled Procedures Name [...] study not interpreted or resulted by a [employer] or [employer] contracted radiologist. us Willam Fofana DO RADIOLOGY (RAD GENERAL) Fin al Result documented in this encounter Care Teams Electrical Cad Technician Relationship Specialty Start Date End Date Willam Fofana DO [address] [facility] [place] [place] [address] PCP - General Family Medicine 04/26/17 documented as of this encounter
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
--- OUTSIDE RECORDS SUMMARY | 2024-12-10 13:26 | External Medical Summary | Summary of Care ---
Author Name Unknown Organization [facility] Address [address] [place] [address] Phone [phone] Care Team Providers Care Director Electrical Engineering Name Role Phone Willam Fofana DO Primary Care Provider [phone] Encounter Details Date Type Department Care Team (Late st Contact Info) Description 08/05/2024 Orders Only Family Practice [facility] [address] [place] [address] Willam Fofana DO [address] [place] [address] Allergies Active Allergy Reactions Criticality Noted Date Comments Amoxicillin-Pot Clavulanate Hives High 11/26/19 12 Sulfamethoxazole-Trimethopri m 02/07/2016 Insulin Glargine 01/21/2016 States he went in to [facility] after one shot of insulin Other [...] neuropathy, with long-term current use of insulin ([facility]) Take 2 Tablets by mouth [...] Each 5 05/31/20 24 Active Dexcom G6 Steward/Stewardess Bath DeviceIndications :DM type 2, not at goal [...] goal of less than 7.0% 06/05/2020 [place] (myocardial infarction) 09/25/2019 Type 2 diabetes mellitus [...] mRNA, LNP-s, No Pre serve, 2-Dose Series ([email or web address]) 09/12/2021,12/18/2020,11/27/2020 COVID-19, MRNA-LNP, 24-25, P R, 30MCG/0.3ML, IM, 12YRS AND ABOVE ([email or web address]-[email or web address]) 11/07/2023 Hepatitis B, 20+ yrs 07/26/2015,03/01/2015,11/29 Pneumococcal Conjugate Vacci ne, 20-valent ([id number]) 12/22/2023,07/15/2022 Pneumococcal Polysaccharide PPV23 (Pneumovax) 02/26/2014 Seasonal [...] Description 09/18/2024 7:30 AM EST Imaging Radiology [address] [place] [address] 10/18/2024 10:00 AM EST [facility] [address] [place] [address] Rosie Price RN [address] [place] [address] 10/26/2024 7:30 AM EST Office Visit Pharmacy, [facility] [address] [place] [phone] Jet [place] [address] [place] [address] 11/08/2024 2:30 PM EST Nutrition Services Nutrition & [facility] Management, [facility] [place] [address] Mayuri Ernst RDN [address] [place] [address] 02/02/2025 10:15 AM EDT Office Visit [facility] [address] [place] [address] Mason Jean-Baptiste MD [address] [place] [address] 02/09/2025 11:40 AM EDT Office Visit [facility] [address] [place] [address] Willam Fofana, [address] [place] [address] 02/28/2025 8:00 AM EDT Hospital Encounter ENDO [facility], Endoscopy Room [facility] [address] [facility] [place] [phone] Kandice Arevalo MD [address] [place] [address] 02/28/2025 8:00 AM EDT - 02/28/2025 8:30 AM EDT Surgery ENDO O[facility], Endoscopy Room [facility] [address] [place] [phone] Kandice Arevalo MD [address] [place] [address] COLONOSCOPY FLEXIBLE PROXIMAL DIAGNOSTIC Scheduled Procedures Name [...] study not interpreted or resulted by a [employer] or [employer] contracted radiologist. us Willam Fofana DO RADIOLOGY (RAD GENERAL) Fin al Result documented in this encounter Care Teams Director Electrical Engineering Relationship Specialty Start Date End Date Willam Fofana DO [address] [facility] [place] [address] PCP - General Family Medicine 04/26/17 documented as of this encounter
--- OUTSIDE RECORDS SUMMARY | 2024-12-10 13:27 | External Medical Summary | Summary of Care ---
Author Name Unknown Organization [facility] Address [address] [place] [address] Phone [phone] Care Team Providers Care Black Jack Dealer Name Role Phone MorenolázaroWillam garza DO Primary Care Provider [phone] Reason for Visit * Reason Onset Date Comments Patient Instructions 08/31/2024 colonoscopy Encounter Details Date Type Department Care Team (Late st Contact Info) Description 08/31/2024 Telephone Pre Surgery Center, [facility] [address] [place] [address] Anila Gonsales, RN Patient Instructions (colonoscopy) Allergies Active Allergy Reactions Criticality Noted Date Comments Amoxicillin-Pot Clavulanate Hives High 11/26/19 12 Sulfamethoxazole-Trimethopri m 02/07/2016 Insulin Glargine 01/21/2016 States he went in to [facility] after one shot of insulin Other reaction(s): CHF Permethrin 04/27/2013 Shrimp Flavor 04/27/2013 documented as of this encounter (statuses as of 08/31/2024) Medications VITAMIN C 500 MG PO TABS [...] hemoglobin A1c goal of less than 7.0% ([facility]) Inject 100 Units under the skin in [...] BREAKFAST AND 60 WITH SUPPER, Reported on 08/31/2024 buPROPion HCl ER (XL) 300 MG Oral [...] neuropathy, with long-term current use of insulin ([facility]) Take 2 Tablets by mouth in the morning. 180 Tablet 3 05/25/20 24 Active Albuterol Sulfate HFA 108 (90 Base) MCG/ACT Inhalation Aerosol SolutionIndicatio ns:Wheezing Inhale 2 Puffs by mouth every 4 hours as needed for Wheezing. 18 g 05/30/20 24 Active Arnuity Ellipta 100 MCG/ACT Inhalation Aerosol Powder Breath Activated (fluticasone Furoate) Inhale 1 Puff by mouth in the morning. 30 Each 05/31/20 24 Active Dexcom G6 Angular Js Developer DeviceIndications :DM type 2, not at goal (HCC) Use as directed. E11.9 1 Each 06/02/20 24 Active Dexcom G6 SensorIndications :DM type 2, not at goal (HCC) Use as directed. Change every 10 days 9 Each 4 4:38 PM EDT 06/16/20 24 Active Dexcom G6 TransmitterIndica tions:DM type 2, not at goal (HCC) Use as directed. Change every 90 days E11.9 1 Each 06/16/20 24 Active Nitroglycerin 0.4 MG Sublingual Tablet Sublingual (Nitrostat)Indica tions:Inferior myocardial infarction (HCC) Place 1 Tablet under the tongue as needed for Pain, Chest. May repeat 3 times. If chest pain continues, call 911. 25 Tablet 11 07/11/20 24 Active Additional Information Patient not taking.Reported on 08/31/2024 documented as of this encounter (statuses as of 08/31/2024) Active Problems Problem Noted Date Diagnosed Date [...] as of this encounter (statuses as of 08/31/2024) Resolved Problems Problem Noted Date Diagnosed Date [...] as of this encounter (statuses as of 08/31/2024) Immunizations Name Administration Dates Next Due COVID-19 mRNA, LNP-s, No Pre serve, 2-Dose Series ([employer]) 09/12/2021,12/18/2020,11/27/2020 COVID-19, MRNA-LNP, 24-25, P R, 30MCG/0.3ML, IM, 12YRS AND ABOVE ([employer]) 11/07/2023 Hepatitis B, 20+ yrs 07/26/2015,03/01/2015,11/29 Pneumococcal Conjugate Vacci ne, 20-valent ([id number]) 12/22/2023,07/15/2022 Pneumococcal Polysaccharide PPV23 (Pneumovax) 02/26/2014 Seasonal [...] Department Care Team (Latest Contact Info) Description 09/05/2024 8:30 AM EST [facility] [address] [place] [address] Rosie Price RN [address] [place] [address] 09/12/2024 9:30 AM EST Hospital Encounter ENDO [facility], Endoscopy Room [facility] [address] [place] [phone] Kandice Arevalo MD [address] [place] [address] 09/12/2024 9:30 AM EST - 09/12/2024 10:00 AM EST Surgery ENDO [facility], Endoscopy Room [facility] [address] [place] [phone] Kandice Arevalo MD [address] [place] [address] COLONOSCOPY FLEXIBLE PROXIMAL DIAGNOSTIC 10/26/2024 7:30 AM EST Office Visit [facility] [place] [address] [place] [address] [facility] [address] [place] [address] 02/02/2025 10:15 AM EDT Office Visit [address] [address] Mason Jean-Baptiste MD [address] [place] [address] 02/09/2025 11:40 AM EDT Office Visit Family Practice [facility] 200 [facility] [place] [address] Willam Fofana, DO 200 [facility] [place] [address] Scheduled Procedures Name Priority Associated Diagnoses Date/Ti [...] filedocumented as of this encounter Care Teams Black Jack Dealer Relationship Specialty Start Date End Date Willam Fofana DO [address] [place] [address] PCP - General Family Medicine 04/26/17 documented as of this encounter
--- OUTSIDE RECORDS SUMMARY | 2024-12-10 13:27 | External Medical Summary | Summary of Care ---
Author Name Unknown Organization [facility] Address [address] [facility] [place] [address] Phone [phone] Care Team Providers Care Electrotherapist Name Role Phone Willam Fofana DO Primary Care Provider Reason for Visit * Reason Onset Date Comments [facility]: Maintenance 08/15/2024 Encounter Details Date Type Department Care Team (Late st Contact Info) Description 08/15/2024 Telephone [facility], [facility] [address] [facility] [place] [address] Ashly Melton RN [address] [place] [facility] [place] [address] [facility]: Maintenance Allergies Active Allergy Reactions Criticality Noted Date Comments Amoxicillin-Pot Clavulanate Hives High 11/26/19 12 Sulfamethoxazole-Trimethopri m 02/07/2016 Insulin Glargine 01/21/2016 States he went in to CHF after one shot of insulin Other reaction(s): CHF Permethrin 04/27/2013 Shrimp Flavor 04/27/2013 documented as of this encounter (statuses as of 08/15/2024) Medications Medication Sig Dispensed Refills Start Date [...] than 7.0% ([facility]) Inject 100 Units under the skin in the morning and 100 Units before bedtime. 60 mL 3 4 Active NovoLOG FlexPen ReliOn 100 UNIT/ML Subcutaneous Solution Pen-injector (insulin aspart)Indications: Type 2 diabetes mellitus with complication, with long-term current use of insulin ([facility]) INJECT 60 UNITS SUBCUTANEOUSLY WITH BREAKFAST, 20 [...] of insulin ([facility]) Take 2 Tablets by mouth in the [...] 30 Each 5 4 Active Dexcom G6 It Network Engineer DeviceIndications:D M type 2, not at goal ([facility]) Use as directed. E11.9 1 Each 4 Active Dexcom G6 SensorIndications:D M type 2, not at goal ([facility]) Use as directed. 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, right 1005/2017 Overview: HIV negative Non-ischemic cardiomyopathy 02/26/2014 HTN, goal below 130/80 02/26/2014 History of heroin abuse 02/26/2014 Hepatitis C documented as of this encounter (statuses as of 08/15/2024) Resolved Problems Problem Noted Date Diagnosed Date [...] as of this encounter (statuses as of 08/15/2024) Immunizations Name Administration Dates Next Due COVID-19 mRNA, LNP-s, No Pre serve, 2-Dose Series ([employer]) 09/12/2021,12/18/2020,11/27/2020 COVID-19, MRNA-LNP, 24-25, P R, 30MCG/0.3ML, IM, 12YRS AND ABOVE ([employer]) 11/07/2023 Hepatitis B, 20+ yrs 07/26/2015,03/01/2015,11/29 Pneumococcal Conjugate Vacci ne, 20-valent ([id number]) 12/22/2023,07/15/2022 Pneumococcal Polysaccharide PPV23 (Pneumovax) 02/26/2014 Seasonal [...] encounter Miscellaneous Notes * Telephone Encounter - Ashly Melton RN - 08/15/2024 11:40 AM EST Call received from the pt. Calling to make his RN aware that he was home for appt today at 12:30 pm. Advised to have RN call him if he does not answer the door because he does not respond to text messages. TT message sent to Rosie NAVARRO to make aware. documented in this encounter Plan of Treatment Upcoming Encounters Date Type Department Care Team (Latest Contact Info) Description 08/15/2024 12:30 PM EST Home Visit [place]ing at [place], [facility] [address] [address] Rosie Price RN [address] [facility] [place] [address] 08/24/2024 1:00 PM EST Home Visit [facility] [address] [place] [address] Vasiliy Ocasio PA-C [address] [place] [address] 09/12/2024 9:30 AM EST Hospital Encounter ENDO [facility], Endoscopy Room [facility] [address] [place] [phone] Kandice Arevalo MD [address] [place] [address] 09/12/2024 9:30 AM EST - 09/12/2024 10:00 AM EST Surgery ENDO [facility], Endoscopy Room [facility] [address] [place] [phone] Kandice Arevalo MD [address] [place] [address] COLONOSCOPY FLEXIBLE PROXIMAL DIAGNOSTIC 10/05/2024 11:20 AM EST Nutrition Services Nutrition & Weight Management, [facility] [address] [place] [address] Mayuri Ernst RDN [address] [place] [address] 10/26/2024 7:30 AM EST Office Visit Pharmacy, [place] [address] [address] [facility] [place] [address] [facility] [address] [facility] [place] [address] 02/02/2025 10:15 AM EDT [address] [address] Mason Jean-Baptiste MD 16 [place] [address] 02/09/2025 11:40 AM EDT Office Visit [facility] [place] [address] [facility] [place] [address] Willam Fofana, 200 [facility] [place] [address] Scheduled Procedures Name Priority Associated Diagnoses Date/Ti [...] filedocumented as of this encounter Care Teams Electrotherapist Relationship Specialty Start Date End Date Willam Fofana DO [address] [place] [address] PCP - General Family Medicine 04/26/17 documented as of this encounter
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
--- OUTSIDE RECORDS SUMMARY | 2024-12-10 13:27 | External Medical Summary | Summary of Care ---
Author Name Unknown Organization [facility] Address [address] [place] [facility] [place] [address] Phone [phone] Care Team Providers Care Airconditioning Drafting Officer Name Role Phone Willam Fofana DO Primary Care Provider Reason for Visit * Reason Onset Date Comments [facility]: Acute 09/06/2024 Encounter Details Date Type Department Care Team (Late st Contact Info) Description 09/06/2024 Telephone [facility] [address] [facility] [place] [address] Edilma Méndez RN [address] [facility] [place] [phone] [facility]: Acute Allergies Active Allergy [...] hemoglobin A1c goal of less than 7.0% ([facility]) Inject 100 Units under the skin in the morning and 100 Units before bedtime. 60 mL 3 10/19/19 24 Active NovoLOG FlexPen ReliOn 100 UNIT/ML Subcutaneous Solution Pen-injector (insulin aspart)Indication s:Type 2 diabetes mellitus with complication, with long-term current use of insulin ([facility]) INJECT 60 UNITS SUBCUTANEOUSLY WITH BREAKFAST, 20 [...] neuropathy, with long-term current use of insulin ([facility]) Take 2 Tablets by mouth in the [...] Each 5 05/31/20 24 Active Dexcom G6 Cotton Picker DeviceIndications :DM type 2, not at goal ([facility]) Use as directed. E11.9 1 Each 06/02/20 24 Active Dexcom G6 SensorIndications :DM type 2, not at goal ([facility]) Use as directed. Change every 10 days 9 Each 3 4 4:38 PM EDT 06/16/20 24 Active Dexcom G6 TransmitterIndica tions:DM type 2, not at goal ([facility]) Use as directed. Change every 90 days [...] goal of less than 7.0% 06/05/2020 Old [place] (myocardial infarction) 09/25/2019 Type 2 diabetes mellitus [...] mRNA, LNP-s, No Pre serve, 2-Dose Series ([employer]) 09/12/2021,12/18/2020,11/27/2020 COVID-19, MRNA-LNP, 24-25, P R, 30MCG/0.3ML, IM, 12YRS AND ABOVE ([employer]) 11/07/2023 Hepatitis B, 20+ yrs 07/26/2015,03/01/2015,11/29 Pneumococcal Conjugate Vacci ne, 20-valent ([id number]) 12/22/2023,07/15/2022 Pneumococcal Polysaccharide PPV23 (Pneumovax) 02/26/2014 Seasonal [...] it can drain naturally. Collins Couch MD, [facility], [place], FAAFP [employer] ([facility]) [facility] [employer] * Telephone Encounter - Edilma Méndez RN - 09/06/2024 10:59 AM EST [facility] risk control consultant Acute Call Date: 09/06/2024 Time: 11:00 AM Name: Facundo Botello : 1960 Caller: Patient HPI: Facundo Botello is a 64 year old male that is calling [facility] at Home Intake to report : Pt [...] was instructed by his girlfriend to call [facility] to obtain ABX. Pt reports the [...] or drainage increases or sxs worsen call [facility]. Treatment/Plan: (need to report) Level of call: Non-Acute Recommended treatment plan: Clinical advice given over the phone Routing to Care Team for ABX treatment to prevent cellulitis. Edilma Méndez RN [facility] Intake [phone] Call back instructions provided to patient. documented in this encounter Plan of Treatment Upcoming Encounters Date Type Department Care Team (Latest Contact Info) Description 09/08/2024 2:30 PM EST Home Visit [facility] at [facility] [address] [facility] [place] [address] Rosie Price, RN 132 [facility] [place] [address] 09/12/2024 9:30 AM EST Hospital Encounter ENDO [facility], Endoscopy Room [facility] [address] [facility] [place] [phone] Kandice Arevalo MD [address] [place] [address] 09/12/2024 9:30 AM EST - 09/12/2024 10:00 AM EST Surgery ENDO [facility], Endoscopy Room [facility] [address] [facility] [place] [phone] Kandice Arevalo MD [address] [place] [address] COLONOSCOPY FLEXIBLE PROXIMAL DIAGNOSTIC 10/26/2024 7:30 AM EST Office Visit Pharmacy, [facility] [address] [place] [phone] Price, [address] [address] 02/02/2025 10:15 AM EDT Office Visit [facility] [address] [place] [address] Mason Jean-Baptiste MD [address] [place] [address] 02/09/2025 11:40 AM EDT [facility] [place] [address] [place] [address] Willam Fofana, DO [address] [place] [address] Scheduled Procedures Name Priority Associated Diagnoses Date/Ti [...] 08/01/2024, 041 02/2024, 11/13/2022, Additional history exists Lipid Panel [...] filedocumented as of this encounter Care Teams Airconditioning Drafting Officer Relationship Specialty Start Date End Date Willam Fofana DO [address] [place] [address] PCP - General Family Medicine 04/26/17 documented as of this encounter
--- OUTSIDE RECORDS SUMMARY | 2024-12-10 13:27 | External Medical Summary | Summary of Care ---
Author Name Unknown Organization [facility] Address [address] [place] [facility] [place] [address] Phone [phone] Care Team Providers Care Pitch Filler Name Role Phone Willam Fofana DO Primary Care Provider Reason for Visit * Reason Onset Date Comments [facility]: Screening 08/11/2024 Encounter Details Date Type Department Care Team (Late st Contact Info) Description 08/11/2024 Telephone [facility], [facility] [address] [facility] [place] [address] Eda Valdivia, PRINTING [employer]PPL[employer] SALES REPRESENTATIVE [address] [facility] [address] [facility]: Screening Allergies Active Allergy Reactions Criticality Noted Date Comments Amoxicillin-Pot Clavulanate Hives High 11/26/19 12 Sulfamethoxazole-Trimethopri m 02/07/2016 Insulin Glargine 01/21/2016 States he went in to CHF after one shot of insulin Other reaction(s): CHF Permethrin 04/27/2013 Shrimp Flavor 04/27/2013 documented as of this encounter (statuses as of 08/11/2024) Medications Medication Sig Dispensed Refills Start Date [...] hemoglobin A1c goal of less than 7.0% ([facility]) Inject 100 Units under the skin in the morning and 100 Units before bedtime. 60 mL 3 4 Active NovoLOG FlexPen ReliOn 100 UNIT/ML Subcutaneous Solution Pen-injector (insulin aspart)Indications: Type 2 diabetes mellitus with complication, with long-term current use of insulin ([facility]) INJECT 60 UNITS SUBCUTANEOUSLY WITH BREAKFAST, 20 [...] neuropathy, with long-term current use of insulin ([facility]) Take 2 Tablets by mouth in the [...] 30 Each 5 4 Active Dexcom G6 Mortgage Collector DeviceIndications:D M type 2, not at goal ([facility]) Use as directed. E11.9 1 Each 4 Active Dexcom G6 SensorIndications:D M type 2, not at goal ([facility]) Use as directed. Change every 10 days [...] as of this encounter (statuses as of 08/11/2024) Active Problems Problem Noted Date Diagnosed Date [...] as of this encounter (statuses as of 08/11/2024) Resolved Problems Problem Noted Date Diagnosed Date [...] as of this encounter (statuses as of 08/11/2024) Immunizations Name Administration Dates Next Due COVID-19 mRNA, LNP-s, No Pre serve, 2-Dose Series ([employer]) 09/12/2021,12/18/2020,11/27/2020 COVID-19, MRNA-LNP, 24-25, P R, 30MCG/0.3ML, IM, 12YRS AND ABOVE ([employer]) 11/07/2023 Hepatitis B, 20+ yrs 07/26/2015,03/01/2015,11/29 Pneumococcal Conjugate Vacci ne, 20-valent ([id number]) 12/22/2023,07/15/2022 Pneumococcal Polysaccharide PPV23 (Pneumovax) 02/26/2014 Seasonal [...] encounter Miscellaneous Notes * Telephone Encounter - Eda Valdivia LPN - 08/11/2024 8:44 AM EDT Facundo Botello was referred as a potential candidate for enrollment for [facility]. A review of this chart was completed and: Facundo meets criteria for [facility]. Jump to Initiation Referring care team was notified via : Epic communication documented in this encounter Plan of Treatment Upcoming Encounters Date Type Department Care Team (Latest Contact Info) Description 08/14/2024 1:40 PM EST Office Visit Family Practice [facility] [place] [address] [place], [place] [address] Willam Fofana, DO [address] [place] [address] 09/12/2024 9:30 AM EST Hospital Encounter [facility]O [facility], [facility] [place] [phone] Kandice Arevalo MD [address] [place] [address] 09/12/2024 9:30 AM EST - 09/12/2024 10:00 AM EST Surgery ENDO [facility], Endoscopy Room [facility] [address] [facility] [place] [address] Kandice Arevalo MD [address] [place] [id number] COLONOSCOPY FLEXIBLE PROXIMAL DIAGNOSTIC 10/05/2024 11:20 AM EST Nutrition Services Nutrition & Weight Management, [facility] [address] [facility] [place] [address] Mayuri Ernst RDN [address] [facility] [place] [address] 10/26/2024 7:30 AM EST Office Visit [place] [address] [place] [address] [facility] [place] [address] 02/02/2025 10:15 AM EDT Office Visit [facility] [address] [place] [address] Mason Jean-Baptiste MD 16 [place] [address] 02/09/2025 11:40 AM EDT Office Visit [facility] [address] [place] [address] Willam Fofana, DO [address] [place] [address] Scheduled Procedures Name Priority Associated Diagnoses Date/Ti [...] filedocumented as of this encounter Care Teams Pitch Filler Relationship Specialty Start Date End Date Willam Fofana DO [address] [place] [address] PCP - General Family Medicine 04/26/17 documented as of this encounter
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
--- OUTSIDE RECORDS SUMMARY | 2024-12-10 13:27 | External Medical Summary | Summary of Care ---
Author Name Unknown Organization [facility] Address [address] [place] [address] Phone [phone] Care Team Providers Care Cut Lace Machine Operator Name Role Phone Willam Fofana DO Primary Care Provider Reason for Visit * Reason Onset Date Comments Appointment 08/14/2024 Encounter Details Date Type Department Care Team (Late st Contact Info) Description 08/14/2024 Telephone [facility], [place] [address] [place] [address] [phone] Luigi Ma, ALEJANDRA [address] [place], [place] [phone] Appointment Allergies Active Allergy Reactions Criticality Noted Date Comments Amoxicillin-Pot Clavulanate Hives High 11/26/19 12 Sulfamethoxazole-Trimethopri m 02/07/2016 Insulin Glargine 01/21/2016 States he went in to CHF after one shot of insulin Other reaction(s): CHF Permethrin 04/27/2013 Shrimp Flavor 04/27/2013 documented as of this encounter (statuses as of 08/14/2024) Medications Medication Sig Dispensed Refills Start Date [...] of less than 7.0% ([facility]) Inject 100 Units under the skin [...] 30 Each 5 4 Active Dexcom G6 Roughing Mill Operator DeviceIndications:D M type 2, not at goal ([facility]) Use as directed. E11.9 1 Each 4 Active Dexcom G6 SensorIndications:D M type 2, not at goal ([facility]) Use as directed. Change every 10 days 9 Each 3 4 Active Dexcom G6 TransmitterIndicati ons:DM type 2, not at goal ([facility]) Use as directed. Change every 90 days [...] as of this encounter (statuses as of 08/14/2024) Active Problems Problem Noted Date Diagnosed Date [...] as of this encounter (statuses as of 08/14/2024) Resolved Problems Problem Noted Date Diagnosed Date [...] as of this encounter (statuses as of 08/14/2024) Immunizations Name Administration Dates Next Due COVID-19 mRNA, LNP-s, No Pre serve, 2-Dose Series ([employer]) 09/12/2021,12/18/2020,11/27/2020 COVID-19, MRNA-LNP, 24-25, P R, 30MCG/0.3ML, IM, 12YRS AND ABOVE ([employer]-Comirnat) 11/07/2023 Hepatitis B, 20+ yrs 07/26/2015,03/01/2015,11/29 Pneumococcal Conjugate Vacci ne, 20-valent ([id number]) 12/22/2023,07/15/2022 Pneumococcal Polysaccharide PPV23 (Pneumovax) 02/26/2014 Seasonal [...] encounter Miscellaneous Notes * Telephone Encounter - Luigi Ma OSA - 08/14/2024 11:35 AM EST Date Scheduled: 08/14 Time: 1135am In Person RNCM Special Instructions: enrollment appts scheduled documented in this encounter Plan of Treatment Upcoming Encounters Date Type Department Care Team (Latest Contact Info) Description 08/14/2024 1:40 PM EST Office Visit [facility] [address] [place] [address] Willam Fofana, DO [address] [place] [address] 08/15/2024 12:30 PM EST Home Visit [facility] [place], [address] [place] [address] Rosie Price, RN [address] [place] [address] 08/24/2024 1:00 PM EST Home Visit [facility], [facility] [address] [place] [address] Vasiliy Ocasio PA-C [address] [place] [address] 09/12/2024 9:30 AM EST Hospital Encounter ENDO [facility], Endoscopy Room [facility] [address] [place] [phone] Kandice Arevalo MD [address] [place] [address] 09/12/2024 9:30 AM EST - 09/12/2024 10:00 AM EST Surgery ENDO [facility], Endoscopy Room [facility] [address] [place] [phone] Kandice Arevalo MD [address] [place] [address] COLONOSCOPY FLEXIBLE PROXIMAL DIAGNOSTIC 10/05/2024 11:20 AM EST Nutrition Services Nutrition & Weight Management, [facility] [address] [place] [address] Mayuri Ernst RDN [address] [place] [address] 10/26/2024 7:30 AM EST Office Visit Pharmacy, [place] [address] [address] [facility], [place] [address] [facility] [address] [facility], [place] [address] 02/02/2025 10:15 AM EDT Office Visit [facility] [address] [place] [address] Mason Jean-Baptiste MD [address] [place] [address] 02/09/2025 11:40 AM EDT Office Visit Family Practice [facility] [place] [address] [place] [address] Willam Fofana, [address] [facility] [place] [address] Scheduled Procedures Name Priority Associated Diagnoses Date/Ti [...] filedocumented as of this encounter Care Teams Cut Lace Machine Operator Relationship Specialty Start Date End Date Willam Fofana DO [address] [place] [address] PCP - General Family Medicine 04/26/17 documented as of this encounter
--- OUTSIDE RECORDS SUMMARY | 2024-12-10 13:27 | External Medical Summary | Summary of Care ---
Author Name Unknown Organization [facility] Address [address] [facility] [place] [address] Phone [phone] Care Team Providers Care Transaction Coordinator Name Role Phone Willam Fofana DO Primary Care Provider Reason for Visit * Reason Onset Date Comments [facility]: Acute 09/06/2024 Encounter Details Date Type Department Care Team (Late st Contact Info) Description 09/06/2024 Telephone [facility] [address] [facility] [place] [address] Edilma Méndez RN [address] [facility] [place] [phone] [facility]: Acute Allergies Active Allergy [...] goal of less than 7.0% ([facility]) Inject 100 Units under the skin in the morning and 100 Units before bedtime. 60 mL 3 10/19/19 24 Active NovoLOG FlexPen ReliOn 100 UNIT/ML Subcutaneous Solution Pen-injector (insulin aspart)Indication s:Type 2 diabetes mellitus with complication, with long-term current use of insulin ([facility]) INJECT 60 UNITS SUBCUTANEOUSLY WITH BREAKFAST, [...] long-term current use of insulin ([facility]) Take 2 Tablets by mouth in [...] 5 05/31/20 24 Active Dexcom G6 Solid Propellant Processor DeviceIndications :DM type 2, not at goal ([facility]) Use as directed. E11.9 1 Each 06/02/20 24 Active Dexcom G6 SensorIndications :DM type 2, not at goal ([facility]) Use as directed. Change every 10 days 9 Each 3 4 4:38 PM EDT 06/16/20 24 Active Dexcom G6 TransmitterIndica tions:DM type 2, not at goal ([facility]) Use as directed. Change every 90 [...] mRNA, LNP-s, No Pre serve, 2-Dose Series ([employer]) 09/12/2021,12/18/2020,11/27/2020 COVID-19, MRNA-LNP, 24-25, P R, 30MCG/0.3ML, IM, 12YRS AND ABOVE ([employer]-Comirnat) 11/07/2023 Hepatitis B, 20+ yrs 07/26/2015,03/01/2015,11/29 Pneumococcal Conjugate Vacci ne, 20-valent ([id number]) 12/22/2023,07/15/2022 Pneumococcal Polysaccharide PPV23 (Pneumovax) 02/26/2014 Seasonal [...] Méndez RN - 09/06/2024 10:59 AM EST [facility] specialist Acute Call Date: 09/06/2024 Time: 11:00 AM Name: Facundo Botello : 1960 Caller: Patient HPI: Facundo Botello is a 64 year old male that is calling [facility] Intake to report : Pt [...] was instructed by his girlfriend to call [facility] to obtain ABX. Pt reports the [...] or drainage increases or sxs worsen call [facility]. Treatment/Plan: (need to report) Level of call: Non-Acute Recommended treatment plan: Clinical advice given over the phone Routing to Care Team for ABX treatment to prevent cellulitis. Edilma Méndez RN [facility] Intake [phone] Call back instructions provided to patient. documented in this encounter Plan of Treatment Upcoming Encounters Date Type Department Care Team (Latest Contact Info) Description 09/08/2024 2:30 PM EST Home Visit [facility] [address] [place] [address] Rosie Price RN [address] [place] [address] 09/12/2024 9:30 AM EST Hospital Encounter ENDO [facility], Endoscopy Room [facility] [address] [place] [phone] Kandice Arevalo MD [address] [place] [address], [place] [address] 09/12/2024 9:30 AM EST - 09/12/2024 10:00 AM EST Surgery ENDO [facility], Endoscopy Room [facility] [address] [facility] [place] [phone] Kandice Arevalo MD [address] [place] [address] COLONOSCOPY FLEXIBLE PROXIMAL DIAGNOSTIC 10/26/2024 7:30 AM EST Office Visit [facility], [facility] [address] [facility] [place] [address] [place], [place] [address] [place] [address] 02/02/2025 10:15 AM EDT Office Visit [facility] [address] [address] Mason Jean-Baptiste MD [address] [place] [address] 02/09/2025 11:40 AM EDT Office Visit Family Practice [facility] [address] [place] [address] Willam Fofana, DO [address] [place] [address] Scheduled Procedures Name Priority Associated Diagnoses Date/Ti [...] filedocumented as of this encounter Care Teams Transaction Coordinator Relationship Specialty Start Date End Date Willam Fofana DO [address] [place] [address] PCP - General Family Medicine 04/26/17 documented as of this encounter
--- OUTSIDE RECORDS SUMMARY | 2024-12-10 13:27 | External Medical Summary | Summary of Care ---
Author Name Unknown Organization [facility] Address [address] [place] [address] Phone [phone] Care Team Providers Care Physician General Internal Medicine Name Role Phone Willam Fofana DO Primary Care Provider Reason for Visit * Reason Onset Date Comments [facility]: Engagement 08/11/2024 Encounter Details Date Type Department Care Team (Late st Contact Info) Description 08/11/2024 Telephone [facility], [place] [address] [place] [phone] [place], ALEJANDRA [address] [place] [address] [facility]: Engagement Allergies Active Allergy Reactions Criticality Noted Date [...] A1c goal of less than 7.0% ([facility]) Inject 100 Units under the skin in the morning and 100 Units before bedtime. 60 mL 3 4 Active NovoLOG FlexPen ReliOn 100 UNIT/ML Subcutaneous Solution Pen-injector (insulin aspart)Indications: Type 2 diabetes mellitus with complication, with long-term current use of insulin ([facility]) INJECT 60 UNITS SUBCUTANEOUSLY WITH [...] with long-term current use of insulin ([facility]) Take 2 Tablets by mouth [...] 30 Each 5 4 Active Dexcom G6 Metal Hardener DeviceIndications:D M type 2, not at goal ([facility]) Use as directed. E11.9 1 Each 4 Active Dexcom G6 SensorIndications:D M type 2, not at goal ([facility]) Use as directed. Change every [...] mRNA, LNP-s, No Pre serve, 2-Dose Series ([employer]) 09/12/2021,12/18/2020,11/27/2020 COVID-19, MRNA-LNP, 24-25, P R, 30MCG/0.3ML, IM, 12YRS AND ABOVE ([facility]-Comir[facility]placed by [facility]) 11/07/2023 Hepatitis B, 20+ yrs 07/26/2015,03/01/2015,11/29 Pneumococcal Conjugate Vacci ne, 20-valent ([id number]) 12/22/2023,07/15/2022 Pneumococcal Polysaccharide PPV23 (Pneumovax) 02/26/2014 Seasonal [...] encounter Miscellaneous Notes * Telephone Encounter - Addis Clayton OSA - 08/11/2024 10:18 AM EDT [facility] outreach 08/11 - [facility] 1 Looking at Rosie on 08/14 documented in this encounter Plan of Treatment Upcoming Encounters Date Type Department Care Team (Latest Contact Info) Description 08/14/2024 1:40 PM EST Office Visit [facility] Practice [facility] [address] [place] [address] Willam Fofana, DO [address] [place] [address] 09/12/2024 9:30 AM EST Hospital Encounter ENDO [facility], Endoscopy [facility] [address] [facility] [place] [phone] Kandice Arevalo MD [address] [place] [phone] 09/12/2024 9:30 AM EST - 09/12/2024 10:00 AM EST Surgery ENDO [facility], Endoscopy Room [facility] [address] [facility] [place] [phone] Kandice Arevalo MD [address] [place] [address] COLONOSCOPY FLEXIBLE PROXIMAL DIAGNOSTIC 10/05/2024 11:20 AM EST Nutrition Services Nutrition & Weight Management, [facility] [address] [place] [address] Mayuri Ernst RDN [address] [place] [address] 10/26/2024 7:30 AM EST Office Visit [facility], [address] [address] [place] [address] [place] [address] 02/02/2025 10:15 AM EDT Office Visit [facility] [address] [place] [address] Mason Jean-Baptiste MD [address] [place] [address] 02/09/2025 11:40 AM EDT [facility] [address] [facility] [address] Willam Fofana, [address] [facility] [place] [address] Scheduled Procedures Name Priority Associated Diagnoses Date/Ti [...] filedocumented as of this encounter Care Teams Physician General Internal Medicine Relationship Specialty Start Date End Date Willam Fofana DO [address] [place] [address] PCP - General Family Medicine 04/26/17 documented as of this encounter
--- NOTE | 2024-12-10 13:45 | Emergency Department Note ---
ED Provider Note History of Present Illness Chief Complaint: Illness Stated Complaint: SOB Time Seen by Provider: 12/10/24 13:26 Source: patient Mode of arrival: EMS Limitations: no limitations Patient is a 64-year-old male who presents to the emergency department with complaints of shortness of breath, cough, general achiness and fatigue. Patient states that his symptoms have been ongoing for several days. Patient notes that his sister had pneumonia and the other sister had the flu. Patient believes that he may have the flu as well. Patient denies any chest pain at this time but does note that when he gets into a coughing fit he has some intermittent chest pressure. Home Medications Medication Instructions Recorded Confirmed Type aspirin 81 mg tablet,delayed 81 mg PO DAILY 08/01/22 12/10/24 History release bupropion HCl 300 mg 24 hr tablet, 300 mg PO DAILY 08/01/22 12/10/24 History extended release empagliflozin 25 mg tablet 25 mg PO DAILY 08/01/22 12/10/24 History (Jardiance) insulin aspart U-100 100 unit/mL 60 unit subcut BIDM 08/01/22 12/10/24 History (3 mL) subcutaneous pen (Novolog FlexPen U-100 Insulin aspart) ascorbic acid (vitamin C) 500 mg 500 mg PO DAILY 09/21/22 12/10/24 History tablet (Vitamin C) multivitamin with minerals 1 tab PO DAILY 09/21/22 12/10/24 History (Multiple Vitamin-Minerals tablet) lisinopril 20 mg tablet 20 mg PO QAM 10/10/23 12/10/24 History sertraline 100 mg tablet 100 mg PO QAM 10/10/23 12/10/24 History insulin glargine U-300 conc 300 100 unit subcut BID 10/14/23 12/10/24 History unit/mL (3 mL) subcutaneous pen (Toujeo Max U-300 SoloStar) tamsulosin 0.4 mg capsule 0.4 mg PO DAILY 10/14/23 12/10/24 History spironolactone 25 mg tablet 25 mg PO DAILY 05/09/24 12/10/24 History cyanocobalamin (vitamin B-12) 1,000 mcg PO DAILY #30 caps 05/12/24 12/10/24 Rx 1,000 mcg capsule albuterol sulfate 90 mcg/actuation 90 mcg inhalation DAILY PRN 06/06/24 12/10/24 History aerosol inhaler Wheezing metformin 750 mg tablet,extended 1,500 mg PO DAILY 06/06/24 12/10/24 History release 24 hr fluticasone furoate 100 100 mcg inhalation DAILY 08/05/24 12/10/24 History mcg/actuation blister powder for inhalation (Arnuity Ellipta) Allergies Allergy/AdvReac Type Severity Reaction Status Date / Time shellfish derived Allergy Severe Swelling Verified 08/11/24 11:28 amoxicillin Allergy Intermediate HIVES Verified 08/11/24 11:28 clavulanic acid Allergy Intermediate HIVES Verified 08/11/24 11:28 permethrin Allergy Intermediate swelling Verified 08/11/24 11:28 shrimp Allergy Intermediate SWELLS Verified 08/11/24 11:28 sulfamethoxazole Allergy Unknown CAN'T Verified 08/11/24 11:28 [From Bactrim] REMEMBER trimethoprim [From Bactrim] Allergy Unknown CAN'T Verified 08/11/24 11:28 REMEMBER insulin glargine AdvReac Severe CHF Verified 08/11/24 11:28 [From Lantus U-100 Insulin] Past Med/Surg History Problem List (Updated 12/10/24 @ 16:39 by KEY Cooper) Hypoxia (Acute) Hyperglycemia (Acute) Influenza A (Acute) Diabetic peripheral neuropathy Diabetic neuropathic arthritis Abdominal wall cellulitis (Acute) Foot pain, left (Acute) Cellulitis of finger, right (Acute) Hyperglycemia (Acute) Burn of abdominal wall (Acute) Unable to care for self (Acute) Generalized muscle weakness (Acute) Ambulatory dysfunction (Acute) Noncompliance w/medication treatment due to intermit use of medication BPH (benign prostatic hyperplasia) Anxiety and depression Bronchitis Uncontrolled type 2 diabetes mellitus with hyperglycemia (Acute) Ambulatory dysfunction (Acute) Generalized weakness (Acute) Acute hyperglycemia (Acute) Morbid obesity with BMI of 40.0-44.9, adult Acute hyperglycemia (Acute) ALEJANDRA (obstructive sleep apnea) Hyperglycemia Nonischemic cardiomyopathy (Chronic) "prior EF 30% per Epic records. echo 02/2015- EF 40-45%" DM type 2 (diabetes mellitus, type 2) (Chronic) H/O TB (tuberculosis) (Chronic) H/O toxoplasmosis (Chronic) Hepatitis C (Chronic) Hypertension (Chronic) Colon polyp (Chronic) "TVA polyp on colonoscopy 09/2014" H/O colonoscopy (Chronic) "11/2015- diverticulosis" S/P cardiac cath (Chronic) "for abnormal stress test. cath 03/18/2015-essentially normal coronaries with no obstructive disease " Colon polyp Confusion (Acute) Hyperglycemia due to type 2 diabetes mellitus (Acute) DVT prophylaxis Polyneuropathy Peripheral vascular disease Depression Bilateral cellulitis of lower leg (Acute) Fatigue (Acute) Encephalopathy Hypercapnic respiratory failure Varicose veins of bilateral lower extremities with other complications Morbid obesity H/O drug abuse Medical History Peripheral neuropathy Shortness of breath Acute dehydration Accidental fall tripped over dog bed, hit back of head, checked in the ED poss concussion Dysequilibrium Hepatitis C Diabetes mellitus, type 2 Depression Anxiety Hypertension Surgical History History of colonoscopy History of umbilical hernia repair x2 History of tooth extraction History of wisdom tooth extraction History of cardiac cath 03/[address] [facility], no stents follows with Dr. Monet Family History Mother Family history of diabetes mellitus Father Family history of diabetes mellitus Other No family history of adverse response to anesthesia Social History Smoking Status: Never smoker Tobacco Type: Cigarettes Cigarettes Per Day: Says he occasionally will smoke a cigar.; Second Hand Exposure: No; Do You Dip or Chew Tobacco: No; Hx Alcohol Use: Yes Alcohol type: beer and hard liquor Hx Substance Use: Yes Non-Prescribed Medications: Methamphetamines Last Used Substance: Unknown Last Used Substance Other:: "a couple weeks ago" Preferred Language: Brazilian Communication Ability: Effective 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 Beliefs That Will Affect Care: None marital status: Single Current Living Situation: Alone Current Living Situation Comment: lives alone Feels Safe at Home: Yes Gender Identity: Male Assistive Devices: Walker Physical Exam Vital Signs Vital Signs - 24 hr 12/10/24 13:20 12/10/24 13:37 12/10/24 15:30 Temperature 36.4 C Temperature Source Oral Pulse Rate 109 H 86 Pulse Rate [Apical] Pulse Rhythm [Apical] Pulse Strength [Apical] Respiratory Rate 18 Respiratory Effort / Characteristics Non-Labored Spontaneous Respiratory Depth Normal Respiratory Pattern Blood Pressure 146/103 H Blood Pressure [Right Arm] Blood Pressure Mean 117 Blood Pressure Mean [Right Arm] Blood Pressure Position [Right Arm] Pulse Oximetry 94 95 Oxygen Delivery Method Room Air Room Air Oxygen Flow Rate Sepsis Recent Fever Within 48 Hours No Sepsis New/Unexplained Change in Mental Status No Sepsis Action Taken by Nursing No Action Required 12/10/24 15:31 Temperature Temperature Source Pulse Rate Pulse Rate [Apical] 85 Pulse Rhythm [Apical] Regular Pulse Strength [Apical] Normal Respiratory Rate 22 Respiratory Effort / Characteristics Non-Labored Spontaneous Respiratory Depth Normal Respiratory Pattern Regular Blood Pressure Blood Pressure [Right Arm] 162/78 H Blood Pressure Mean Blood Pressure Mean [Right Arm] 106 Blood Pressure Position [Right Arm] Sitting Pulse Oximetry 98 Oxygen Delivery Method Nasal Cannula Oxygen Flow Rate 2 Sepsis Recent Fever Within 48 Hours Sepsis New/Unexplained Change in Mental Status Sepsis Action Taken by Nursing VITAL SIGNS - Vital signs and nursing notes were reviewed. GENERAL -64-year-old male appearing their stated age, who is in no acute distress. Communicates well with provider and answers questions appropriately. HEAD - Normocephalic, Atraumatic. No Ang's Sign or Raccoon's Eyes. EYES - PERRL with EOMI bilaterally. Sclera anicteric. Conjunctiva pink and moist with no injection noted. EARS - No deformities of external structures noted on gross examination bilaterally. NOSE - Midline and without cyanosis. No epistaxis or purulent drainage noted. NECK - Neck with FROM. Supple to palpation. No lymphadenopathy noted. LUNGS - Chest wall symmetric without accessory muscle use, intercostals retractions, or central cyanosis. Patient had wheezing throughout his upper lobes. No rales, rhonchi, or crackles noted in the bilateral bases. CARDIAC - RRR with S1/S2. No murmur, rubs, or gallops appreciated. EXTREMITIES - No edema present. +5/5 strength noted in UE/LE bilaterally. NEUROLOGIC -Sensory intact to light touch throughout. PSYCH - A&Ox3 and cooperates fully with examiner. Pt is very pleasant and interacts well with examiner Course Administered Medications Discontinued Medications Albuterol (Albut/Ipratrop 3mg/0.5mg Neb 3 Ml Vial) 3 ml INH NOW STA Stop: 12/10/24 13:38 Last Admin: 12/10/24 14:24 Dose: 3 ml Documented By: Methylprednisolone (Methylprednisolone 125 Mg/2 Ml Vial) 125 mg IV NOW STA Stop: 12/10/24 13:38 Last Admin: 12/10/24 14:24 Dose: 125 mg Documented By: Oseltamivir Phosphate (Oseltamivir Phosphate 75 Mg Cap) 75 mg PO NOW STA Stop: 12/10/24 15:22 Last Admin: 12/10/24 15:31 Dose: 75 mg Documented By: RAIZA Medical Decision Making Differential Diagnosis Influenza, COVID, RSV, pneumonia, bronchitis, among others. Medical Records Attestation: I reviewed the patient's medical records. Home Medications was personally reviewed by me Laboratory Data Attestation: I reviewed the patient's lab results. 12/10/24 14:57 12/10/24 14:29 Lab Results 12/10/24 12/10/24 12/10/24 Range/Units 13:24 14:29 14:57 WBC Cancelled 7.80 RBC Cancelled 6.02 Hgb Cancelled 17.9 Hct Cancelled 52.2 H MCV Cancelled 86.7 MCH Cancelled 29.7 MCHC Cancelled 34.3 RDW Std Deviation Cancelled 39.1 RDW Coeff of Marc Cancelled 12.3 Plt Count Cancelled 177 MPV Cancelled 9.7 Immature Gran % (Auto) Cancelled 0.4 Neut % (Auto) Cancelled 45.4 Lymph % (Auto) Cancelled 42.7 [place] % (Auto) Cancelled 8.6 Eos % (Auto) Cancelled 2.3 Baso % (Auto) Cancelled 0.6 Neut # (Auto) Cancelled 3.54 Lymph # (Auto) Cancelled 3.33 [place] # (Auto) Cancelled 0.67 H Eos # (Auto) Cancelled 0.18 Baso # (Auto) Cancelled 0.05 Immature Gran # (Auto) Cancelled 0.03 Absolute Nucleated RBC Cancelled Nucleated RBC % (auto) Cancelled Neutrophils % (Manual) Cancelled Band Neutrophils % Cancelled Lymphocytes % (Manual) Cancelled Prolymphocyte % Cancelled Reactive Lymphs % (Man) Cancelled Monocytes % (Manual) Cancelled Eosinophils % (Manual) Cancelled Basophils % (Manual) Cancelled Metamyelocytes % (Man) Cancelled Myelocytes % (Man) Cancelled Promyelocytes % (Man) Cancelled Blast Cells % (Manual) Cancelled Plasma Cell % (Manual) Cancelled Other Cells % Cancelled Nucleated RBC % Cancelled Neutrophils # (Manual) Cancelled Band Neutrophils # Cancelled Total Absolute Neuts Cancelled Lymphocytes # (Manual) Cancelled Prolymphocyte # Cancelled Reactive Lymphs # Cancelled Total Abs Lymphocytes Cancelled Monocytes # (Manual) Cancelled Eosinophils # (Manual) Cancelled Basophils # (Manual) Cancelled Metamyelocytes # (Man) Cancelled Myelocytes # (Manual) Cancelled Promyelocytes # (Man) Cancelled Blast Cells # (Man) Cancelled Plasma Cell # (Manual) Cancelled Other Cells # Cancelled Nucleated RBCs # (Man) Cancelled Hypersegmented Neuts Cancelled Hyposegmented Neuts Cancelled Hypogranular Neuts Cancelled Large Granular Lymphs Cancelled # Lrg Granular Lymphs Cancelled Hairy Cells Cancelled Smudge Cells Cancelled Toxic Granulation Cancelled Toxic Vacuolation Cancelled Dohle Bodies Cancelled Iván Rods Cancelled Platelet Estimate Cancelled Hypogranular Platelets Cancelled Giant Platelets Cancelled Platelet Satelliting Cancelled RBC Morphology Cancelled Polychromasia Cancelled Hypochromasia Cancelled Poikilocytosis Cancelled Basophilic Stippling Cancelled Anisocytosis Cancelled Microcytosis Cancelled Macrocytosis Cancelled Spherocytes Cancelled Pappenheimer Bodies Cancelled Sickle Cells Cancelled Target Cells Cancelled Tear Drop Cells Cancelled Ovalocytes Cancelled Stomatocytes Cancelled Tam[place] Bodies Cancelled Echinocytes Cancelled Acanthocytes (Spur) Cancelled Rouleaux Cancelled RBC Agglutinates Cancelled Schistocytes Cancelled Sezary Cell Cancelled Sodium 130 L (136-145) mmol/L Potassium 4.2 (3.5-5.1) mmol/L Chloride 98 (98-107) mmol/L Carbon Dioxide 26 (21-32) mmol/L Anion Gap 6 (3-11) BUN 15 (6-23) mg/dl Creatinine 0.77 (0.6-1.4) mg/dl Est Cr Clr Drug Dosing 133.8 ml/min eGFR 101.22 BUN/Creatinine Ratio 19.5 (10-20) Glucose 539 H* (70-99(Fasting)) mg/dl Calcium 9.0 (8.6-10.3) mg/dl Total Bilirubin 0.4 (0.2-1.0) mg/dl AST 23 (13-39) U/L ALT 22 (7-52) U/L Alkaline Phosphatase 105 H (34-104) U/L Troponin I High Sens 7.6 (0-20) pg/ml Total Protein 6.6 (6.0-8.3) gm/dl Albumin 3.4 (3.4-5.0) gm/dl Globulin 3.2 (2.5-4.0) gm/dl Albumin/Globulin Ratio 1.1 (0.9-2) Adenovirus (PCR) Not Detected (NotDetected) B. pertussis DNA (PCR) Not Detected (NotDetected) B.parapertussis DNA PCR Not Detected (NotDetected) C. pneumoniae DNA (PCR) Not Detected (NotDetected) Coronavirus OC43 (PCR) Not Detected (NotDetected) Coronavirus HKU1 (PCR) Not Detected (NotDetected) Coronavirus 229E (PCR) Not Detected (NotDetected) SARS-CoV-2 (PCR) Not Detected (NotDetected) Coronavirus NL63 (PCR) Not Detected (NotDetected) Human Metapneumovir PCR Not Detected (NotDetected) Influenza A (H3) PCR DETECTED A (NotDetected) Influenza Type B (PCR) Not Detected (NotDetected) M. pneumoniae (PCR) Not Detected (NotDetected) Parainfluenza 1 (PCR) Not Detected (NotDetected) Parainfluenza 2 (PCR) Not Detected (NotDetected) Parainfluenza 3 (PCR) Not Detected (NotDetected) Parainfluenza 4 (PCR) Not Detected (NotDetected) RSV (PCR) Not Detected (NotDetected) Entero/Rhino (PCR) Not Detected (NotDetected) Blood Parasites ID Cancelled Imaging Data Radiologist's Impression: Chest X-Ray 12/10/24 13:37 XR chest 1V portable HISTORY: 64 years-old Male Dyspnea COMPARISON: 08/05/2024 TECHNIQUE: AP view the chest FINDINGS: Cardiac silhouette is enlarged. Pulmonary vascular congestion. Trace pleural effusions with mild bibasilar opacities. Bones appear grossly intact. IMPRESSION: 1. Cardiomegaly with pulmonary vascular congestion. 2. Trace pleural effusions with mild bibasilar opacities, likely atelectatic. ACT 112: Negative or not required by law. The above report was generated using voice recognition software. It may contain grammatical, syntax or spelling errors. Electronically signed by: Juan Gonzalez M.D. 12/10/2024 2:01 PM [facility] Narrative Patient is a 64-year-old male who presents to the emergency department with complaints of shortness of breath, cough, general achiness and fatigue. Patient states that his symptoms have been ongoing for several days. Patient notes that his sister had pneumonia and the other sister had the flu. Patient believes that he may have the flu as well. Patient denies any chest pain at this time but does note that when he gets into a coughing fit he has some intermittent chest pressure. Patient was evaluated by myself and findings were noted in the physical exam above. Patient was ordered IV placement, lab work, EKG, chest x-ray, and bio fire upper respiratory panel. Patient was also ordered a DuoNeb and a dose of Solu-Medrol for his symptoms. Patient's lab work resulted and the patient had a normal white blood cell count of 7.80. Patient had no indication of anemia with a hemoglobin of 17.9 and hematocrit of 52.2. Patient had no indication of electrolyte imbalance. Patient did however have a serum glucose of 539. Patient states that his blood sugar often runs in the 400-500s as he is not compliant with his medications. Patient is to be taking metformin, Jardiance, NovoLog and Toujeo for his diabetes, however he states that he sometimes forgets to take them. Patient's EKG was interpreted by myself and shows the patient to be in a sinus tachycardic rhythm. Patient had a chest x-ray that was interpreted by radiology to show cardiomegaly with pulmonary vascular congestion and trace pleural effusions with mild bibasilar opacities likely atelectasis. The patient was slightly hypoxic on room air and was noted to be 88% to 90% on room air. With 2 L of oxygen via nasal cannula the patient has been in the high 90s. Upon reevaluation the patient does appear to be resting more comfortably and states that the DuoNeb treatment did seem to make his breathing a little bit easier. Patient's upper respiratory viral panel resulted positive for influenza A. Patient states that his sister did have flu a so he was not surprised by this finding. Patient was started on a dose of Tamiflu. Because the patient has had some slight hypoxia and does not appear to take great care of himself at home I feel that he may benefit from a hospital admission for oxygen and management of his blood sugars. I spoke with Dr. Enciso from [facility] to admit the patient to the hospital. I gave him a full report on the patient's chief complaint, current status, and results of his imaging and lab work. Dr. Enciso accepted the patient under his service for admission to the hospital. Please refer to [facility]'s documentation for further evaluation and management of this patient. Impression Influenza A, Hyperglycemia, Hypoxia Discharge Plan Visit Data Chief Complaint: Illness Stated Complaint: SOB ED Provider: Vasiliy Coreas ED Midlevel Provider: Katey Majano Discharge Problem: Influenza A, Hyperglycemia, Hypoxia Patient Disposition: Admitted As Inpatient Forms Stand Alone Forms: My [facility] Prescriptions Prescriptions: No Action aspirin 81 mg Tablet,Delayed Release (Dr/Ec) 81 mg PO DAILY insulin aspart U-100 [Novolog FlexPen U-100 Insulin] 100 unit/mL (3 mL) insulin pen 60 unit subcut BIDM Rx Instructions: Patient takes 60 UNITS WITH BREAKFAST, 60 UNITS WITH DINNER bupropion HCl 300 mg tablet extended release 24 hr 300 mg PO DAILY Jardiance 25 mg tablet 25 mg PO DAILY ascorbic acid (vitamin C) [Vitamin C] 500 mg Tablet 500 mg PO DAILY Multiple Vitamin-Minerals Tablet 1 tab PO DAILY tamsulosin 0.4 mg capsule 0.4 mg PO DAILY insulin glargine U-300 conc [Toujeo Max U-300 SoloStar] 300 unit/mL (3 mL) insulin pen 100 unit SUBCUT BID lisinopril 20 mg tablet 20 mg PO QAM sertraline 100 mg tablet 100 mg PO QAM spironolactone 25 mg Tablet 25 mg PO DAILY cyanocobalamin (vitamin B-12) 1,000 mcg capsule 1,000 mcg PO DAILY Qty: 30 0RF albuterol sulfate 90 mcg/actuation HFA aerosol inhaler 90 mcg INHALATION DAILY PRN (Reason: Wheezing) metformin 750 mg tablet extended release 24 hr 1,500 mg PO DAILY Arnuity Ellipta 100 mcg/actuation blister with device 100 mcg INHALATION DAILY Referrals Referrals: Willam Fofana DO [Primary Care Provider] -
--- NOTE | 2024-12-10 14:02 | XRay Report ---
XR chest 1V portable HISTORY: 64 years-old Male Dyspnea COMPARISON: 08/05/2024 TECHNIQUE: AP view the chest FINDINGS: Cardiac silhouette is enlarged. Pulmonary vascular congestion. Trace pleural effusions with mild biba silar opacities. Bones appear grossly intact. IMPRESSION: 1. Cardiomegaly with pulmonary vascular congestion. 2. Trace pleural effusions with mild bibasilar opacities, likely atelectatic. ACT 112: Negative or not required by law. The above report was generated using voice recognition software. It may contain grammatical, syntax o r spelling errors. Electronically signed by: Juan Gonzalez M.D. 12/10/2024 2:01 PM
[2024-12-10] MEDS: ALBUT/IPRATROP 3MG/0.5MG NEB 3 ML VIAL INH STA (14:24)
[2024-12-10] MEDS: methylPREDNISolone 125 MG/2 ML VIAL IV STA (14:24)
[2024-12-10 14:41] LABS: Adenovirus PCR Not Detected (NotDetected); Bordetella parapertussis PCR Not Detected (NotDetected); Bordetella pertussis PCR Not Detected (NotDetected); Chlamydia pneumoniae PCR Not Detected (NotDetected); Coronavirus 229E PCR Not Detected (NotDetected); Coronavirus CoV-2 (COVID19)PCR Not Detected (NotDetected); Coronavirus HKU1 PCR Not Detected (NotDetected); Coronavirus NL63 PCR Not Detected (NotDetected); Coronavirus OC43PCR Not Detected (NotDetected); Human Metapneumovirus PCR Not Detected (NotDetected); Influenza A (H3) PCR DETECTED (NotDetected); Influenza B PCR Not Detected (NotDetected); Mycoplasma pneumoniae PCR Not Detected (NotDetected); Parainfluenza Virus 1 PCR Not Detected (NotDetected); Parainfluenza Virus 2 PCR Not Detected (NotDetected); Parainfluenza Virus 3 PCR Not Detected (NotDetected); Parainfluenza Virus 4 PCR Not Detected (NotDetected); Respiratory Syncytial VirusPCR Not Detected (NotDetected); Rhinovirus/Enterovirus PCR Not Detected (NotDetected)
[2024-12-10 15:13] LABS: Albumin Globulin Ratio 1.1 (0.9-2); Albumin Level 3.4 gm/dl (3.4-5.0); BUN Creatinine Ratio 19.5 (10-20); Bilirubin,Total 0.4 mg/dl (0.2-1.0); Creatinine Clr Calc Pharmacy 133.8 ml/min; Globulin 3.2 gm/dl (2.5-4.0); Potassium 4.2 mmol/L (3.5-5.1); Total Protein 6.6 gm/dl (6.0-8.3); Troponin I High Sensitivity 7.6 pg/ml (0-20)
[2024-12-10 15:14] LABS: Basophils # (auto) 0.05 K/uL (0.00-0.20); Basophils % (auto) 0.6 %; Eosinophils # (auto) 0.18 K/uL (0.00-0.50); Eosinophils % (auto) 2.3 %; Hematocrit (blood only) 52.2 % (42.0-52.0); Hemoglobin 17.9 g/dl (14.0-18.0); Immature Granulocytes # (auto) 0.03 K/uL (0.01-0.20); Immature Granulocytes % (auto) 0.4 %; Lymphocytes # (auto) 3.33 K/uL (1.20-3.40); Lymphocytes % (auto) 42.7 %; Mean Corpuscular Hemoglobin 29.7 pg (25.0-34.0); Mean Corpuscular Hgb Conc 34.3 g/dL (32.0-36.0); Mean Corpuscular Volume 86.7 fL (80.0-100.0); Mean Platelet Volume 9.7 fL (9.4-12.4); Monocytes # (auto) 0.67 K/uL (0.11-0.59); Monocytes % (auto) 8.6 %; Neutrophils # (auto) 3.54 K/uL (1.40-6.50); Neutrophils % (auto) 45.4 %; Platelet Count 177 K/uL (130-400); RDW Coefficient of Variation 12.3 % (11.5-14.5); RDW Standard Deviation 39.1 fL (36.4-46.3); Red Blood Count 6.02 M/uL (4.70-6.10)
[2024-12-10] MEDS: OSELTAMIVIR PHOSPHATE 75 MG CAP PO STA (15:31)
--- NOTE | 2024-12-10 17:07 | History & Physical Report ---
Date of Service December 10, 2024 Assessment & Plan (1) Hypoxia: (2) Hyperglycemia: (3) Influenza A: Plan #SOB likely 2/2 flu vs. HFpEF exacerbation -out of the window for tamiflu -one dose of IV steroids given in the ED, will continue on orals -duonebs scheduled -diuresis, query compliance, will restart home dose and monitor for symptom improvement -most recent echo 04/03, will defer to outpatient -O2 PRN #Hyperglycemia likely 2/2 IDDM noncompliant to insulin -will restart home regimen and monitor for now given noncompliance issues -consider ISS if unresponsive to this regimen -hypoglycemia protocol #BPH, PVD, CAD #Htn -home meds #polysubstance abuse (heroin, meth) w/recent use, #untreated hep C -check UDS and hep C quantitative -likely defer to outpatient No IVF, diabetic diet DVT ppx History of Present Illness Primary Care Provider: Willam Fofana, DO 64M pmh polysubstance abuse (heroin, meth) w/recent use, untreated hep C, HFpEF, toxoplasmosis, htn, BPH, IDDM, PVD, CAD who presents to the ED with SOB. Patient states for the last 3-5d has been having sob, cough, myalgias, fatigue. Has sick contacts who have both the flu and pneumonia. Denies fever, chills, cp, n/v, other symptoms. In the ED also found to be significantly hyperglycemic, states the last time he took his insulin was 3-4d ago. States that he was diagnosed with HF in the past and takes 40mg lasix TID, takes this every day. States that his most recent drug use was a few weeks ago, uses drugs via the nasal route, denies IVDU in many years. Allergies Allergy/AdvReac Type Severity Reaction Status Date / Time shellfish derived Allergy Severe Swelling Verified 08/11/24 11:28 amoxicillin Allergy Intermediate HIVES Verified 08/11/24 11:28 clavulanic acid Allergy Intermediate HIVES Verified 08/11/24 11:28 permethrin Allergy Intermediate swelling Verified 08/11/24 11:28 shrimp Allergy Intermediate SWELLS Verified 08/11/24 11:28 sulfamethoxazole Allergy Unknown CAN'T Verified 08/11/24 11:28 [From Bactrim] REMEMBER trimethoprim [From Bactrim] Allergy Unknown CAN'T Verified 08/11/24 11:28 REMEMBER insulin glargine AdvReac Severe CHF Verified 08/11/24 11:28 [From Lantus U-100 Insulin] Home Medications Medication Instructions Recorded Confirmed Type aspirin 81 mg tablet,delayed 81 mg PO DAILY 08/01/22 12/10/24 History release bupropion HCl 300 mg 24 hr tablet, 300 mg PO DAILY 08/01/22 12/10/24 History extended release empagliflozin 25 mg tablet 25 mg PO DAILY 08/01/22 12/10/24 History (Jardiance) insulin aspart U-100 100 unit/mL 60 unit subcut BIDM 08/01/22 12/10/24 History (3 mL) subcutaneous pen (Novolog FlexPen U-100 Insulin aspart) ascorbic acid (vitamin C) 500 mg 500 mg PO DAILY 09/21/22 12/10/24 History tablet (Vitamin C) multivitamin with minerals 1 tab PO DAILY 09/21/22 12/10/24 History (Multiple Vitamin-Minerals tablet) lisinopril 20 mg tablet 20 mg PO QAM 10/10/23 12/10/24 History sertraline 100 mg tablet 100 mg PO QAM 10/10/23 12/10/24 History insulin glargine U-300 conc 300 100 unit subcut BID 10/14/23 12/10/24 History unit/mL (3 mL) subcutaneous pen (Toujeo Max U-300 SoloStar) tamsulosin 0.4 mg capsule 0.4 mg PO DAILY 10/14/23 12/10/24 History spironolactone 25 mg tablet 25 mg PO DAILY 05/09/24 12/10/24 History cyanocobalamin (vitamin B-12) 1,000 mcg PO DAILY #30 caps 05/12/24 12/10/24 Rx 1,000 mcg capsule albuterol sulfate 90 mcg/actuation 90 mcg inhalation DAILY PRN 06/06/24 12/10/24 History aerosol inhaler Wheezing metformin 750 mg tablet,extended 1,500 mg PO DAILY 06/06/24 12/10/24 History release 24 hr fluticasone furoate 100 100 mcg inhalation DAILY 08/05/24 12/10/24 History mcg/actuation blister powder for inhalation (Arnuity Ellipta) Past Med/Surg History Problem List (Updated 12/10/24 @ 16:39 by KEY Cooper) Hypoxia (Acute) Hyperglycemia (Acute) Influenza A (Acute) Diabetic peripheral neuropathy Diabetic neuropathic arthritis Abdominal wall cellulitis (Acute) Foot pain, left (Acute) Cellulitis of finger, right (Acute) Hyperglycemia (Acute) Burn of abdominal wall (Acute) Unable to care for self (Acute) Generalized muscle weakness (Acute) Ambulatory dysfunction (Acute) Noncompliance w/medication treatment due to intermit use of medication BPH (benign prostatic hyperplasia) Anxiety and depression Bronchitis Uncontrolled type 2 diabetes mellitus with hyperglycemia (Acute) Ambulatory dysfunction (Acute) Generalized weakness (Acute) Acute hyperglycemia (Acute) Morbid obesity with BMI of 40.0-44.9, adult Acute hyperglycemia (Acute) ALEJANDRA (obstructive sleep apnea) Hyperglycemia Nonischemic cardiomyopathy (Chronic) "prior EF 30% per Epic records. echo 02/2015- EF 40-45%" DM type 2 (diabetes mellitus, type 2) (Chronic) H/O TB (tuberculosis) (Chronic) H/O toxoplasmosis (Chronic) Hepatitis C (Chronic) Hypertension (Chronic) Colon polyp (Chronic) "TVA polyp on colonoscopy 09/2014" H/O colonoscopy (Chronic) "11/2015- diverticulosis" S/P cardiac cath (Chronic) "for abnormal stress test. cath 03/18/2015-essentially normal coronaries with no obstructive disease " Colon polyp Confusion (Acute) Hyperglycemia due to type 2 diabetes mellitus (Acute) DVT prophylaxis Polyneuropathy Peripheral vascular disease Depression Bilateral cellulitis of lower leg (Acute) Fatigue (Acute) Encephalopathy Hypercapnic respiratory failure Varicose veins of bilateral lower extremities with other complications Morbid obesity H/O drug abuse Medical History Peripheral neuropathy Shortness of breath Acute dehydration Accidental fall tripped over dog bed, hit back of head, checked in the ED poss concussion Dysequilibrium Hepatitis C Diabetes mellitus, type 2 Depression Anxiety Hypertension Surgical History History of colonoscopy History of umbilical hernia repair x2 History of tooth extraction History of wisdom tooth extraction History of cardiac cath 03/2015 @ [facility], no stents follows with Dr. Monet Family History Mother Family history of diabetes mellitus Father Family history of diabetes mellitus Other No family history of adverse response to anesthesia Social History Smoking Status: Never smoker Tobacco Type: Cigarettes Cigarettes Per Day: Says he occasionally will smoke a cigar.; Second Hand Exposure: No; Do You Dip or Chew Tobacco: No; Hx Alcohol Use: Yes Alcohol type: beer and hard liquor Hx Substance Use: Yes Non-Prescribed Medications: Methamphetamines Last Used Substance: Unknown Last Used Substance Other:: "a couple weeks ago" Preferred Language: Azerbaijani Communication Ability: Effective Cytotechnologist/Cytology Supervisor Required: No Beliefs That Will Affect Care: None marital status: Single Current Living Situation: Alone Current Living Situation Comment: lives alone Feels Safe at Home: Yes Gender Identity: Male Assistive Devices: Walker Review of Systems Constitutional: + body aches and + fatigue; no fever and no chills Respiratory: + cough and + dyspnea Physical Exam Constitutional: WD/WN, vitals as above Respiratory: Auscultation: + wheezes Results & Data Results & Data Vital Signs (Past 12 Hours) Vital Signs Temp Pulse Pulse Resp BP BP Pulse Ox 12/10/24 15:31 85 22 162/78 H 98 12/10/24 15:30 86 12/10/24 13:37 95 12/10/24 13:20 36.4 C 109 H 18 146/103 H 94 O2 Del Method O2 Flow Rate 12/10/24 15:31 Nasal Cannula 2 12/10/24 15:30 12/10/24 13:37 Room Air 12/10/24 13:20 Room Air Laboratory Results Abnormal lab results 12/10/24 12/10/24 12/10/24 Range/Units 13:24 14:29 14:57 Hct 52.2 H (42.0-52.0) % Divide # (Auto) 0.67 H (0.11-0.59) K/uL Sodium 130 L (136-145) mmol/L Glucose 539 H* (70-99(Fasting)) mg/dl Alkaline Phosphatase 105 H (34-104) U/L Influenza A (H3) PCR DETECTED A (NotDetected) Diagnostic Findings Chest X-Ray 12/10/24 13:37 XR chest 1V portable HISTORY: 64 years-old Male Dyspnea COMPARISON: 08/05/2024 TECHNIQUE: AP view the chest FINDINGS: Cardiac silhouette is enlarged. Pulmonary vascular congestion. Trace pleural effusions with mild bibasilar opacities. Bones appear grossly intact. IMPRESSION: 1. Cardiomegaly with pulmonary vascular congestion. 2. Trace pleural effusions with mild bibasilar opacities, likely atelectatic. ACT 112: Negative or not required by law. The above report was generated using voice recognition software. It may contain grammatical, syntax or spelling errors. Electronically signed by: Juan Gonzalez M.D. 12/10/2024 2:01 PM Code Status & VTE Plan VTE Prophylaxis Plan VTE Prophylaxis will be ordered: Yes
[2024-12-10] MEDS ORDERED: CARBOHYDRATES FOR HYPOGLYCEMIA PO PRN (17:08)
[2024-12-10] MEDS ORDERED: GLUCAGON FOR INJ 1 MG VIAL SQ PRN (17:08)
[2024-12-10] MEDS ORDERED: GLUCOSE 10 TAB/TUBE PO PRN (17:08)
[2024-12-10] MEDS ORDERED: PHARMACY GLYCEMIC MGMT CONSULT PRN (17:08)
[2024-12-10] MEDS ORDERED: GLUCOSE 40% GEL 15 GM TUBE PO PRN (17:08)
[2024-12-10] MEDS ORDERED: DEXTROSE 50% 50 ML SYRINGE IV PRN (17:08)
[2024-12-10] MEDS: ENOXAPARIN INJ 40 MG/0.4 ML SYR SQ SCH (18:29)
[2024-12-10] MEDS: ALBUT/IPRATROP 3MG/0.5MG NEB 3 ML VIAL NEB SCH (18:29)
[2024-12-10] MEDS: INSULIN HUMAN REGULAR PER UNIT 10 UNITS in SYRINGE 9.9 ML IV ONE (18:49)
[2024-12-10] MEDS: INSULIN ASPART PER UNIT CHARGE SC SCH (18:49)
[2024-12-10] MEDS: ACETAMINOPHEN 325 MG TAB PO PRN (19:20)
[2024-12-10] MEDS: INSULIN HUMAN NPH SC SCH (19:21)
[2024-12-10] MEDS ORDERED: NON-FORMULARY MEDICATION (Insulin Aspart U-100 [Novolog Flexpen U-100 Insulin] 100 unit/mL SQ SCH (20:03)
[2024-12-10] MEDS ORDERED: ALBUTEROL HFA 8 GM INHALER INH PRN (20:03)
--- OUTSIDE RECORDS SUMMARY | 2024-12-10 20:05 | External Medical Summary | Summary of Care ---
Author Name Unknown Organization [facility] Address [address] [place] [address] Phone [phone] Care Team Providers Care Material Assembler Name Role Phone Willam Fofaan DO Primary Care Provider Reason for Visit * Reason Onset Date Comments Respiratory Infection 12/10/2024 Encounter Details Date Type Department Care Team (Late st Contact Info) Description 12/10/2024 12:00 PM EST [facility] [address] [place] [address] [place], Nurse [facility] [address] [place] [address] Pneumonia of both lungs due to infectious [...] goal of less than 7.0% ([facility]) Inject 100 Units under the skin in the morning and 100 Units before bedtime. 60 mL 3 10/19/19 24 Active NovoLOG FlexPen ReliOn 100 UNIT/ML Subcutaneous Solution Pen-injector (insulin aspart)Indications :Type 2 diabetes mellitus with complication, with long-term current use of insulin ([facility]) INJECT 60 UNITS SUBCUTANEOUSLY WITH [...] long-term current use of insulin ([facility]) Take 2 Tablets by mouth in the morning. 180 Tablet 3 05/25/20 24 Active Additional Information Patient taking differently: 750 mgOral Daily(AM), Reported on 11/28/2024 Albuterol Sulfate HFA 108 (90 Base) MCG/ACT Inhalation Aerosol SolutionIndication s:Wheezing Inhale 2 Puffs by mouth every 4 hours as needed for Wheezing. 18 g 5 05/30/20 24 Active Dexcom G6 Cafe Attendant DeviceIndications: DM type 2, not at goal ([facility]) Use as directed. E11.9 1 Each 06/02/20 24 Active Dexcom G6 SensorIndications: DM type 2, not at goal ([facility]) Use as directed. Change every 10 days 9 Each 3 5 3:19 PM EST 06/16/20 24 Active Dexcom G6 TransmitterIndicat ions:DM type 2, not at goal ([facility]) Use as directed. Change every [...] goal of less than 7.0% 06/05/2020 [place] (myocardial infarction) 09/25/2019 Type 2 diabetes mellitus [...] mRNA, LNP-s, No Pre serve, 2-Dose Series (Qumulo) 09/12/2021,12/18/2020,11/27/2020 COVID-19, MRNA-LNP, 24-25, P R, 30MCG/0.3ML, IM, 12YRS AND ABOVE (Pfizer-Comirnaty) 11/07/2023 Hepatitis B, 20+ yrs 07/26/2015,03/01/2015,11/29 Pneumococcal Conjugate Vacci ne, 20-valent ([id number]) 12/22/2023,07/15/2022 Pneumococcal Polysaccharide PPV23 (Pneumovax) 02/26/2014 Seasonal [...] male with a PMH DM2, non-ischemia cardiomyopathy, [place], PVD, HTN, h/oheroin use, of who presents [...] 09/25/2014 TVA polyp, repeat 1 yr/done @ [facility] COLONOSCOPY, DIAGNOSTIC (RECTUM) 12/04/2015 diverticulosis, repeat 3 yrs/[facility] COLONOSCOPY, DIAGNOSTIC (RECTUM) 01/10/2019 adenomatous polyps, repeat 5 yrs/[facility] DRAINAGE OF EYE FLUID/BLOOD Right 07/15/2017 Paracentesis OD - Consent signed and procedure performed, Dr. Ramos EGD, FLEXIBLE, DIAGNOSTIC 10/15/2020 mild inflammation on bx / ESOPHAGOGASTRODUODENOSCOPY (EGD), FLEXIBLE, TRANSORAL, DIAGNOSTIC performed by Darshan Garces DO at ENDOSCOPY [facility] EGD, W/ENDOSCOPIC US 10/15/2020 GB polyp / ESOPHAGOGASTRODUODENOSCOPY (EGD), FLEXIBLE, TRANSORAL, ENDOSCOPIC ULTRASOUND performed by Darshan Garces DO at ENDOSCOPY [facility] INJECTION OF EYE DRUG Right 04/21/2018 Clindamycin 1mg intravitreal OD; Dr. Ramos MISCELLANEOUS ORDER ([facility] ONLY) scalp laceration repair after bad injury MISCELLANEOUS ORDER ([facility] ONLY) Right 04/21/2018 CONSENT SIGNED FOR INTRAVITREAL CLINDAMYCIN OD; DR RAMOS STAB PHLEB VARICOSE;ABOVE 20 Right 12/23/2022 STAB PHLEBECTOMY VARICOSE VEINS MORE THAN 20, ONE EXTREMITY performed by Yobani Mary MD at [facility] VEIN ABLATION EXTREMITY,ENDOVEN,1ST Right 12/23/2022 ENDOVENOUS RADIOFREQUENCY ABLATION THERAPY FIRST VEIN performed by Yobani Mary MD at OR [facility] Social History Tobacco Use Smoking status: Never [...] for Wheezing. 18 g 5 Dexcom G6 Cafe Attendant Device Use as directed. E11.9 1 Each [...] Mother Hypertension Father Heart Disorder Grandfather (Paternal) [place] in 60s OBJECTIVE BP 145/83 | Pulse [...] of care were discussed Remy Moulton PA-C [address] [place] [id number] documented in this encounter Plan of Treatment Upcoming Encounters Date Type Department Care Team (Latest Contact Info) Description 12/29/2024 11:30 AM EDT Imaging Radiology [address] [place] [phone] 01/01/2025 10:00 AM EDT Home Visit [place], [facility] [address] [place] [address] Rosie Pirce, RN [address] [place] [id number] 01/16/2025 8:00 AM EDT Office Visit Pharmacy, [facility] [address] [place] [phone] [facility] [address] [facility] [place] [phone] 01/24/2025 2:00 PM EDT Office Visit Urology, [place] [address] [place] [address] Gil Dejesus PA-C [address] [place] [address] 02/02/2025 10:15 AM EDT [facility] [place] [address] [place] [address] Mason Jean-Baptiste MD [address] [place] [address] 02/07/2025 3:30 PM EDT Nutrition Services Nutrition & Weight Management, [facility] [address] [place] [address] Mayuri Ernst RDN [address] [place] [address] 02/09/2025 11:40 AM EDT Office Visit Family Practice [facility] [address] [place] [address] Willam Fofana, DO [address] [place] [address] 02/28/2025 8:00 AM EDT Hospital Encounter ENDO OSSC, Endoscopy Room [facility] [address] [facility] [place] [phone] Kandice Arevalo MD [address] [place] [id number] 02/28/2025 8:00 AM EDT - 02/28/2025 8:30 AM EDT Surgery ENDO OSSC, Endoscopy Room [facility] [address] [facility] [place] [phone] Kandice Arevalo MD [address] [place] [address] COLONOSCOPY FLEXIBLE PROXIMAL DIAGNOSTIC Scheduled Orders Name [...] mL documented in this encounter Care Teams Material Assembler Relationship Specialty Start Date End Date Willam Fofana DO [address] [place] [address] PCP - General Family Medicine 04/26/17 documented as of this encounter
[2024-12-10] MEDS ORDERED: NON-FORMULARY MEDICATION (Insulin Glargine U-300 Conc [Toujeo Max U-300 Solostar] 300 unit SQ SCH (21:00)
[2024-12-10] MEDS: FUROSEMIDE 40 MG TAB PO SCH (21:27)
[2024-12-10 21:32] LABS: Appearance Urine Clear (Clear); Bilirubin Urine Negative (Negative); Blood Urine Negative (Negative); Color Urine Yellow; Glucose Urine UA 3+ (Negative); Ketones Urine Negative (Negative); Leukocyte Esterase Urine Negative (Negative); Nitrite Urine Negative (Negative); Protein Urine Negative (Negative); Specific Gravity Urine 1.033 (1.000-1.030); Urobilinogen Urine Negative (Negative); pH Urine 5.5 (4.5-7.5)
[2024-12-10] MEDS: lisinopril 20 MG TAB PO SCH (22:41)
[2024-12-10 22:50] LABS: Amphetamines+Metham, Urine Pos (Neg); Barbiturates, Urine Neg (Neg); Benzodiazepine, Urine Neg (Neg); Cocaine, Urine Neg (Neg); Fentanyl, Urine Neg (Neg); MDMA (Ecstacy), Urine Neg (Neg); Marijuana, Urine Neg (Neg); Methadone, Urine Neg (Neg); Opiate, Urine Pos (Neg); Phencyclidine, Urine Neg (Neg)
[2024-12-11] MEDS: INSULIN ASPART PER UNIT CHARGE SC SCH (00:25)
[2024-12-11] MEDS: ASCORBIC ACID 500 MG TAB PO SCH (08:16)
[2024-12-11] MEDS: buPROPion XL 300 MG TABCR PO SCH (08:16)
[2024-12-11] MEDS: CYANOCOBALAMIN (B-12) 500 MCG TABLET PO SCH (08:16)
[2024-12-11] MEDS: SERTRALINE HCL 100 MG TABLET PO SCH (08:16)
[2024-12-11] MEDS: MULTIVITAMIN TAB PO SCH (08:17)
[2024-12-11] MEDS: SPIRONOLACTONE 25 MG TAB PO SCH (08:17)
[2024-12-11] MEDS: FLUTICASONE FUROATE 100MCG 14 PUFFS/INHALER INH SCH (08:17)
[2024-12-11] MEDS: OSELTAMIVIR PHOSPHATE 75 MG CAP PO SCH (08:54)
[2024-12-11] MEDS: predniSONE 50 MG TAB PO SCH (08:55)
[2024-12-11] MEDS: INSULIN HUMAN NPH SC SCH (08:55)
[2024-12-11] MEDS: ASPIRIN 81 MG ECTAB PO SCH (08:55)
[2024-12-11] MEDS: TAMSULOSIN HCL 0.4 MG CAP PO SCH (08:55)
[2024-12-11 09:33] LABS: Estimated Average Glucose 318 mg/dl; Hemoglobin A1C 12.7 % (4.5-5.6)
--- NOTE | 2024-12-11 10:06 | Hospitalist Progress Note ---
Date of Service December 11, 2024 Assessment & Plan (1) Influenza A: (2) Hypoxia: Plan: (1) Hypoxia: (2) Hyperglycemia: (3) Influenza A: Plan SOB likely 2/2 flu vs. HFpEF exacerbation -out of the window for Tamiflu -one dose of IV steroids given in the ED, will continue on orals -duonebs scheduled -diuresis, query compliance, restart home dose and monitor for symptom improvement -most recent echo 04/03, will defer to outpatient -O2 PRN Hyperglycemia likely 2/2 IDDM noncompliant to insulin - current A1c 12.7% -restart home regimen and monitor for now given noncompliance issues -consider ISS if unresponsive to this regimen -hypoglycemia protocol BPH, PVD, CAD Htn -home meds #polysubstance abuse (heroin, meth) w/recent use, #untreated hep C -UDS posit. for meth, opioids, final results pending - hep C quantitative ordered - further follow up defer to outpatient No IVF, diabetic diet DVT ppx Admission and Anticipated Discharge Date Admission Date: December 10, 2024 Subjective Pt seen in follow up of shortness of breath, hypoxia, + Flu Currently lying in bed in NAD no fever, chills, chest pain + cough no abd. pain Review of Systems Review of Systems: All systems reviewed & are unremarkable except as noted in Subjective Physical Exam Constitutional: WD/WN, vitals as above Eyes: PERRL, conjunctivae normal, anicteric sclerae ENMT: external ear and nose normal, oropharynx normal Neck: trachea midline, no thyromegaly Respiratory: normal respiratory effort Auscultation: + rhonchi and + wheezes Cardiovascular: RRR, no murmur, no edema Chest (Breasts): Chest: normal inspection of chest Gastrointestinal (Abdomen): Percussion/Palpation: abdomen soft (+ bowel sounds); abdomen nontender Musculoskeletal: no cyanosis or clubbing, extremities motor strength 5/5 Skin: no rashes, warm and dry Neurologic: PERRL, EOMI, accommodation nl, no face palsy, no dysarthria Results & Data Results & Data Vital Signs (Past 12 Hours) Vital Signs Temp Pulse Pulse Resp BP Pulse Ox O2 Del Method 12/11/24 08:00 81 12/11/24 08:00 Room Air 12/11/24 07:06 71 16 95 Nasal Cannula 12/11/24 07:00 37.1 C 83 20 121/80 95 Nebulizer 12/11/24 03:04 36.4 C L 88 22 142/92 H 94 Nasal Cannula 12/11/24 00:20 36.5 C 88 20 144/85 H 99 Nasal Cannula 12/11/24 00:08 84 18 96 Nasal Cannula 12/11/24 00:07 91 H 12/10/24 22:17 Nasal Cannula O2 Flow Rate 12/11/24 08:00 12/11/24 08:00 12/11/24 07:06 2 12/11/24 07:00 12/11/24 03:04 2.0 12/11/24 00:20 2 12/11/24 00:08 2 12/11/24 00:07 12/10/24 22:17 2 Laboratory Results 12/11/24 12/11/24 12/11/24 Range/Units Unknown 07:03 07:03 WBC RBC Hgb Hct MCV MCH MCHC RDW Std Deviation RDW Coeff of Marc Plt Count MPV Immature Gran % (Auto) Neut % (Auto) Lymph % (Auto) Yell % (Auto) Eos % (Auto) Baso % (Auto) Neut # (Auto) Lymph # (Auto) Yell # (Auto) Eos # (Auto) Baso # (Auto) Immature Gran # (Auto) Absolute Nucleated RBC Nucleated RBC % (auto) Neutrophils % (Manual) Band Neutrophils % Lymphocytes % (Manual) Prolymphocyte % Reactive Lymphs % (Man) Monocytes % (Manual) Eosinophils % (Manual) Basophils % (Manual) Metamyelocytes % (Man) Myelocytes % (Man) Promyelocytes % (Man) Blast Cells % (Manual) Plasma Cell % (Manual) Other Cells % Nucleated RBC % Neutrophils # (Manual) Band Neutrophils # Total Absolute Neuts Lymphocytes # (Manual) Prolymphocyte # Reactive Lymphs # Total Abs Lymphocytes Monocytes # (Manual) Eosinophils # (Manual) Basophils # (Manual) Metamyelocytes # (Man) Myelocytes # (Manual) Promyelocytes # (Man) Blast Cells # (Man) Plasma Cell # (Manual) Other Cells # Nucleated RBCs # (Man) Hypersegmented Neuts Hyposegmented Neuts Hypogranular Neuts Large Granular Lymphs # Lrg Granular Lymphs Hairy Cells Smudge Cells Toxic Granulation Toxic Vacuolation Dohle Bodies Iván Rods Platelet Estimate Hypogranular Platelets Giant Platelets Platelet Satelliting RBC Morphology Polychromasia Hypochromasia Poikilocytosis Basophilic Stippling Anisocytosis Microcytosis Macrocytosis Spherocytes Pappenheimer Bodies Sickle Cells Target Cells Tear Drop Cells Ovalocytes Stomatocytes [place] Bodies Echinocytes Acanthocytes (Spur) Rouleaux RBC Agglutinates Schistocytes Sezary Cell Sodium (136-145) mmol/L Potassium (3.5-5.1) mmol/L Chloride (98-107) mmol/L Carbon Dioxide (21-32) mmol/L Anion Gap (3-11) BUN (6-23) mg/dl Creatinine (0.6-1.4) mg/dl Est Cr Clr Drug Dosing ml/min eGFR BUN/Creatinine Ratio (10-20) Glucose (70-99(Fasting)) mg/dl POC Glucose 275 H 274 H (70-99) mg/dl Estimat Average Glucose 318 mg/dl Hemoglobin A1c 12.7 H (4.5-5.6) % Calcium (8.6-10.3) mg/dl Total Bilirubin (0.2-1.0) mg/dl AST (13-39) U/L ALT (7-52) U/L Alkaline Phosphatase (34-104) U/L Troponin I High Sens (0-20) pg/ml Total Protein (6.0-8.3) gm/dl Albumin (3.4-5.0) gm/dl Globulin (2.5-4.0) gm/dl Albumin/Globulin Ratio (0.9-2) Urine Color Urine Appearance (Clear) Urine pH (4.5-7.5) Ur Specific [place] (1.000-1.030) Urine Protein (Negative) Urine Glucose (UA) (Negative) Urine Ketones (Negative) Urine Blood (Negative) Urine Nitrite (Negative) Urine Bilirubin (Negative) Urine Urobilinogen (Negative) Ur Leukocyte Esterase (Negative) Urine Opiates Screen (Neg) U Codeine Confrm GC/MS Ur Morphine (GC/MS) Ur Hydrocodone (GC/MS) Ur Norhydrocodone Ur Noroxycodone Urine Oxycodone (GC/MS) U Oxymorphone GC/MS Ur Methadone, Qual (Neg) Ur Hydromorphone (GC/MS) Urine Fentanyl Screen (Neg) Urine Barbiturates (Neg) Ur Phencyclidine (PCP) (Neg) U Amphetamines Confirm U Amphetamin/Meth Scrn (Neg) U Methamphetamin Confrm MDMA (Ecstasy) Screen (Neg) U Benzodiazepines Scrn (Neg) Ur Cocaine Metabolite (Neg) U Marijuana (THC) Screen (Neg) Drug Screen Comment Adenovirus (PCR) (NotDetected) B. pertussis DNA (PCR) (NotDetected) B.parapertussis DNA PCR (NotDetected) C. pneumoniae DNA (PCR) (NotDetected) Coronavirus OC43 (PCR) (NotDetected) Coronavirus HKU1 (PCR) (NotDetected) Coronavirus 229E (PCR) (NotDetected) SARS-CoV-2 (PCR) (NotDetected) Coronavirus NL63 (PCR) (NotDetected) Hepatitis C Antibody Human Metapneumovir PCR (NotDetected) Influenza A (H3) PCR (NotDetected) Influenza Type B (PCR) (NotDetected) M. pneumoniae (PCR) (NotDetected) Parainfluenza 1 (PCR) (NotDetected) Parainfluenza 2 (PCR) (NotDetected) Parainfluenza 3 (PCR) (NotDetected) Parainfluenza 4 (PCR) (NotDetected) RSV (PCR) (NotDetected) Entero/Rhino (PCR) (NotDetected) Blood Parasites ID 12/11/24 12/11/24 12/11/24 Range/Units 07:02 04:42 00:18 WBC RBC Hgb Hct MCV MCH MCHC RDW Std Deviation RDW Coeff of Marc Plt Count MPV Immature Gran % (Auto) Neut % (Auto) Lymph % (Auto) Yell % (Auto) Eos % (Auto) Baso % (Auto) Neut # (Auto) Lymph # (Auto) Yell # (Auto) Eos # (Auto) Baso # (Auto) Immature Gran # (Auto) Absolute Nucleated RBC Nucleated RBC % (auto) Neutrophils % (Manual) Band Neutrophils % Lymphocytes % (Manual) Prolymphocyte % Reactive Lymphs % (Man) Monocytes % (Manual) Eosinophils % (Manual) Basophils % (Manual) Metamyelocytes % (Man) Myelocytes % (Man) Promyelocytes % (Man) Blast Cells % (Manual) Plasma Cell % (Manual) Other Cells % Nucleated RBC % Neutrophils # (Manual) Band Neutrophils # Total Absolute Neuts Lymphocytes # (Manual) Prolymphocyte # Reactive Lymphs # Total Abs Lymphocytes Monocytes # (Manual) Eosinophils # (Manual) Basophils # (Manual) Metamyelocytes # (Man) Myelocytes # (Manual) Promyelocytes # (Man) Blast Cells # (Man) Plasma Cell # (Manual) Other Cells # Nucleated RBCs # (Man) Hypersegmented Neuts Hyposegmented Neuts Hypogranular Neuts Large Granular Lymphs # Lrg Granular Lymphs Hairy Cells Smudge Cells Toxic Granulation Toxic Vacuolation Dohle Bodies Iván Rods Platelet Estimate Hypogranular Platelets Giant Platelets Platelet Satelliting RBC Morphology Polychromasia Hypochromasia Poikilocytosis Basophilic Stippling Anisocytosis Microcytosis Macrocytosis Spherocytes Pappenheimer Bodies Sickle Cells Target Cells Tear Drop Cells Ovalocytes Stomatocytes Tam[place] Bodies Echinocytes Acanthocytes (Spur) Rouleaux RBC Agglutinates Schistocytes Sezary Cell Sodium (136-145) mmol/L Potassium (3.5-5.1) mmol/L Chloride (98-107) mmol/L Carbon Dioxide (21-32) mmol/L Anion Gap (3-11) BUN (6-23) mg/dl Creatinine (0.6-1.4) mg/dl Est Cr Clr Drug Dosing ml/min eGFR BUN/Creatinine Ratio (10-20) Glucose (70-99(Fasting)) mg/dl POC Glucose 387 H* 286 H 382 H* (70-99) mg/dl Estimat Average Glucose mg/dl Hemoglobin A1c (4.5-5.6) % Calcium (8.6-10.3) mg/dl Total Bilirubin (0.2-1.0) mg/dl AST (13-39) U/L ALT (7-52) U/L Alkaline Phosphatase (34-104) U/L Troponin I High Sens (0-20) pg/ml Total Protein (6.0-8.3) gm/dl Albumin (3.4-5.0) gm/dl Globulin (2.5-4.0) gm/dl Albumin/Globulin Ratio (0.9-2) Urine Color Urine Appearance (Clear) Urine pH (4.5-7.5) Ur Specific [place] (1.000-1.030) Urine Protein (Negative) Urine Glucose (UA) (Negative) Urine Ketones (Negative) Urine Blood (Negative) Urine Nitrite (Negative) Urine Bilirubin (Negative) Urine Urobilinogen (Negative) Ur Leukocyte Esterase (Negative) Urine Opiates Screen (Neg) U Codeine Confrm GC/MS Ur Morphine (GC/MS) Ur Hydrocodone (GC/MS) Ur Norhydrocodone Ur Noroxycodone Urine Oxycodone (GC/MS) U Oxymorphone GC/MS Ur Methadone, Qual (Neg) Ur Hydromorphone (GC/MS) Urine Fentanyl Screen (Neg) Urine Barbiturates (Neg) Ur Phencyclidine (PCP) (Neg) U Amphetamines Confirm U Amphetamin/Meth Scrn (Neg) U Methamphetamin Confrm MDMA (Ecstasy) Screen (Neg) U Benzodiazepines Scrn (Neg) Ur Cocaine Metabolite (Neg) U Marijuana (THC) Screen (Neg) Drug Screen Comment Adenovirus (PCR) (NotDetected) B. pertussis DNA (PCR) (NotDetected) B.parapertussis DNA PCR (NotDetected) C. pneumoniae DNA (PCR) (NotDetected) Coronavirus OC43 (PCR) (NotDetected) Coronavirus HKU1 (PCR) (NotDetected) Coronavirus 229E (PCR) (NotDetected) SARS-CoV-2 (PCR) (NotDetected) Coronavirus NL63 (PCR) (NotDetected) Hepatitis C Antibody Human Metapneumovir PCR (NotDetected) Influenza A (H3) PCR (NotDetected) Influenza Type B (PCR) (NotDetected) M. pneumoniae (PCR) (NotDetected) Parainfluenza 1 (PCR) (NotDetected) Parainfluenza 2 (PCR) (NotDetected) Parainfluenza 3 (PCR) (NotDetected) Parainfluenza 4 (PCR) (NotDetected) RSV (PCR) (NotDetected) Entero/Rhino (PCR) (NotDetected) Blood Parasites ID 12/10/24 12/10/24 12/10/24 Range/Units Unknown 21:16 19:50 WBC RBC Hgb Hct MCV MCH MCHC RDW Std Deviation RDW Coeff of Marc Plt Count MPV Immature Gran % (Auto) Neut % (Auto) Lymph % (Auto) Yell % (Auto) Eos % (Auto) Baso % (Auto) Neut # (Auto) Lymph # (Auto) Yell # (Auto) Eos # (Auto) Baso # (Auto) Immature Gran # (Auto) Absolute Nucleated RBC Nucleated RBC % (auto) Neutrophils % (Manual) Band Neutrophils % Lymphocytes % (Manual) Prolymphocyte % Reactive Lymphs % (Man) Monocytes % (Manual) Eosinophils % (Manual) Basophils % (Manual) Metamyelocytes % (Man) Myelocytes % (Man) Promyelocytes % (Man) Blast Cells % (Manual) Plasma Cell % (Manual) Other Cells % Nucleated RBC % Neutrophils # (Manual) Band Neutrophils # Total Absolute Neuts Lymphocytes # (Manual) Prolymphocyte # Reactive Lymphs # Total Abs Lymphocytes Monocytes # (Manual) Eosinophils # (Manual) Basophils # (Manual) Metamyelocytes # (Man) Myelocytes # (Manual) Promyelocytes # (Man) Blast Cells # (Man) Plasma Cell # (Manual) Other Cells # Nucleated RBCs # (Man) Hypersegmented Neuts Hyposegmented Neuts Hypogranular Neuts Large Granular Lymphs # Lrg Granular Lymphs Hairy Cells Smudge Cells Toxic Granulation Toxic Vacuolation Dohle Bodies Iván Rods Platelet Estimate Hypogranular Platelets Giant Platelets Platelet Satelliting RBC Morphology Polychromasia Hypochromasia Poikilocytosis Basophilic Stippling Anisocytosis Microcytosis Macrocytosis Spherocytes Pappenheimer Bodies Sickle Cells Target Cells Tear Drop Cells Ovalocytes Stomatocytes Tam[place] Bodies Echinocytes Acanthocytes (Spur) Rouleaux RBC Agglutinates Schistocytes Sezary Cell Sodium (136-145) mmol/L Potassium (3.5-5.1) mmol/L Chloride (98-107) mmol/L Carbon Dioxide (21-32) mmol/L Anion Gap (3-11) BUN (6-23) mg/dl Creatinine (0.6-1.4) mg/dl Est Cr Clr Drug Dosing ml/min eGFR BUN/Creatinine Ratio (10-20) Glucose (70-99(Fasting)) mg/dl POC Glucose 366 H* 354 H* (70-99) mg/dl Estimat Average Glucose mg/dl Hemoglobin A1c (4.5-5.6) % Calcium (8.6-10.3) mg/dl Total Bilirubin (0.2-1.0) mg/dl AST (13-39) U/L ALT (7-52) U/L Alkaline Phosphatase (34-104) U/L Troponin I High Sens (0-20) pg/ml Total Protein (6.0-8.3) gm/dl Albumin (3.4-5.0) gm/dl Globulin (2.5-4.0) gm/dl Albumin/Globulin Ratio (0.9-2) Urine Color Yellow Urine Appearance Clear (Clear) Urine pH 5.5 (4.5-7.5) Ur Specific [place] 1.033 H (1.000-1.030) Urine Protein Negative (Negative) Urine Glucose (UA) 3+ H (Negative) Urine Ketones Negative (Negative) Urine Blood Negative (Negative) Urine Nitrite Negative (Negative) Urine Bilirubin Negative (Negative) Urine Urobilinogen Negative (Negative) Ur Leukocyte Esterase Negative (Negative) Urine Opiates Screen Pos H (Neg) U Codeine Confrm GC/MS Pending Ur Morphine (GC/MS) Pending Ur Hydrocodone (GC/MS) Pending Ur Norhydrocodone Pending Ur Noroxycodone Pending Urine Oxycodone (GC/MS) Pending U Oxymorphone GC/MS Pending Ur Methadone, Qual Neg (Neg) Ur Hydromorphone (GC/MS) Pending Urine Fentanyl Screen Neg (Neg) Urine Barbiturates Neg (Neg) Ur Phencyclidine (PCP) Neg (Neg) U Amphetamines Confirm Pending U Amphetamin/Meth Scrn Pos H (Neg) U Methamphetamin Confrm Pending MDMA (Ecstasy) Screen Neg (Neg) U Benzodiazepines Scrn Neg (Neg) Ur Cocaine Metabolite Neg (Neg) U Marijuana (THC) Screen Neg (Neg) Drug Screen Comment Pending Adenovirus (PCR) (NotDetected) B. pertussis DNA (PCR) (NotDetected) B.parapertussis DNA PCR (NotDetected) C. pneumoniae DNA (PCR) (NotDetected) Coronavirus OC43 (PCR) (NotDetected) Coronavirus HKU1 (PCR) (NotDetected) Coronavirus 229E (PCR) (NotDetected) SARS-CoV-2 (PCR) (NotDetected) Coronavirus NL63 (PCR) (NotDetected) Hepatitis C Antibody Human Metapneumovir PCR (NotDetected) Influenza A (H3) PCR (NotDetected) Influenza Type B (PCR) (NotDetected) M. pneumoniae (PCR) (NotDetected) Parainfluenza 1 (PCR) (NotDetected) Parainfluenza 2 (PCR) (NotDetected) Parainfluenza 3 (PCR) (NotDetected) Parainfluenza 4 (PCR) (NotDetected) RSV (PCR) (NotDetected) Entero/Rhino (PCR) (NotDetected) Blood Parasites ID 12/10/24 12/10/24 12/10/24 Range/Units 19:18 19:16 18:24 WBC RBC Hgb Hct MCV MCH MCHC RDW Std Deviation RDW Coeff of Macr Plt Count MPV Immature Gran % (Auto) Neut % (Auto) Lymph % (Auto) Yell % (Auto) Eos % (Auto) Baso % (Auto) Neut # (Auto) Lymph # (Auto) Yell # (Auto) Eos # (Auto) Baso # (Auto) Immature Gran # (Auto) Absolute Nucleated RBC Nucleated RBC % (auto) Neutrophils % (Manual) Band Neutrophils % Lymphocytes % (Manual) Prolymphocyte % Reactive Lymphs % (Man) Monocytes % (Manual) Eosinophils % (Manual) Basophils % (Manual) Metamyelocytes % (Man) Myelocytes % (Man) Promyelocytes % (Man) Blast Cells % (Manual) Plasma Cell % (Manual) Other Cells % Nucleated RBC % Neutrophils # (Manual) Band Neutrophils # Total Absolute Neuts Lymphocytes # (Manual) Prolymphocyte # Reactive Lymphs # Total Abs Lymphocytes Monocytes # (Manual) Eosinophils # (Manual) Basophils # (Manual) Metamyelocytes # (Man) Myelocytes # (Manual) Promyelocytes # (Man) Blast Cells # (Man) Plasma Cell # (Manual) Other Cells # Nucleated RBCs # (Man) Hypersegmented Neuts Hyposegmented Neuts Hypogranular Neuts Large Granular Lymphs # Lrg Granular Lymphs Hairy Cells Smudge Cells Toxic Granulation Toxic Vacuolation Dohle Bodies Iván Rods Platelet Estimate Hypogranular Platelets Giant Platelets Platelet Satelliting RBC Morphology Polychromasia Hypochromasia Poikilocytosis Basophilic Stippling Anisocytosis Microcytosis Macrocytosis Spherocytes Pappenheimer Bodies Sickle Cells Target Cells Tear Drop Cells Ovalocytes Stomatocytes Tam[place] Bodies Echinocytes Acanthocytes (Spur) Rouleaux RBC Agglutinates Schistocytes Sezary Cell Sodium (136-145) mmol/L Potassium (3.5-5.1) mmol/L Chloride (98-107) mmol/L Carbon Dioxide (21-32) mmol/L Anion Gap (3-11) BUN (6-23) mg/dl Creatinine (0.6-1.4) mg/dl Est Cr Clr Drug Dosing ml/min eGFR BUN/Creatinine Ratio (10-20) Glucose (70-99(Fasting)) mg/dl POC Glucose 444 H* 413 H* 403 H* (70-99) mg/dl Estimat Average Glucose mg/dl Hemoglobin A1c (4.5-5.6) % Calcium (8.6-10.3) mg/dl Total Bilirubin (0.2-1.0) mg/dl AST (13-39) U/L ALT (7-52) U/L Alkaline Phosphatase (34-104) U/L Troponin I High Sens (0-20) pg/ml Total Protein (6.0-8.3) gm/dl Albumin (3.4-5.0) gm/dl Globulin (2.5-4.0) gm/dl Albumin/Globulin Ratio (0.9-2) Urine Color Urine Appearance (Clear) Urine pH (4.5-7.5) Ur Specific [place] (1.000-1.030) Urine Protein (Negative) Urine Glucose (UA) (Negative) Urine Ketones (Negative) Urine Blood (Negative) Urine Nitrite (Negative) Urine Bilirubin (Negative) Urine Urobilinogen (Negative) Ur Leukocyte Esterase (Negative) Urine Opiates Screen (Neg) U Codeine Confrm GC/MS Ur Morphine (GC/MS) Ur Hydrocodone (GC/MS) Ur Norhydrocodone Ur Noroxycodone Urine Oxycodone (GC/MS) U Oxymorphone GC/MS Ur Methadone, Qual (Neg) Ur Hydromorphone (GC/MS) Urine Fentanyl Screen (Neg) Urine Barbiturates (Neg) Ur Phencyclidine (PCP) (Neg) U Amphetamines Confirm U Amphetamin/Meth Scrn (Neg) U Methamphetamin Confrm MDMA (Ecstasy) Screen (Neg) U Benzodiazepines Scrn (Neg) Ur Cocaine Metabolite (Neg) U Marijuana (THC) Screen (Neg) Drug Screen Comment Adenovirus (PCR) (NotDetected) B. pertussis DNA (PCR) (NotDetected) B.parapertussis DNA PCR (NotDetected) C. pneumoniae DNA (PCR) (NotDetected) Coronavirus OC43 (PCR) (NotDetected) Coronavirus HKU1 (PCR) (NotDetected) Coronavirus 229E (PCR) (NotDetected) SARS-CoV-2 (PCR) (NotDetected) Coronavirus NL63 (PCR) (NotDetected) Hepatitis C Antibody Human Metapneumovir PCR (NotDetected) Influenza A (H3) PCR (NotDetected) Influenza Type B (PCR) (NotDetected) M. pneumoniae (PCR) (NotDetected) Parainfluenza 1 (PCR) (NotDetected) Parainfluenza 2 (PCR) (NotDetected) Parainfluenza 3 (PCR) (NotDetected) Parainfluenza 4 (PCR) (NotDetected) RSV (PCR) (NotDetected) Entero/Rhino (PCR) (NotDetected) Blood Parasites ID 12/10/24 12/10/24 12/10/24 Range/Units 17:10 16:35 14:57 WBC 7.80 RBC 6.02 Hgb 17.9 Hct 52.2 H MCV 86.7 MCH 29.7 MCHC 34.3 RDW Std Deviation 39.1 RDW Coeff of Marc 12.3 Plt Count 177 MPV 9.7 Immature Gran % (Auto) 0.4 Neut % (Auto) 45.4 Lymph % (Auto) 42.7 Yell % (Auto) 8.6 Eos % (Auto) 2.3 Baso % (Auto) 0.6 Neut # (Auto) 3.54 Lymph # (Auto) 3.33 Yell # (Auto) 0.67 H Eos # (Auto) 0.18 Baso # (Auto) 0.05 Immature Gran # (Auto) 0.03 Absolute Nucleated RBC Nucleated RBC % (auto) Neutrophils % (Manual) Band Neutrophils % Lymphocytes % (Manual) Prolymphocyte % Reactive Lymphs % (Man) Monocytes % (Manual) Eosinophils % (Manual) Basophils % (Manual) Metamyelocytes % (Man) Myelocytes % (Man) Promyelocytes % (Man) Blast Cells % (Manual) Plasma Cell % (Manual) Other Cells % Nucleated RBC % Neutrophils # (Manual) Band Neutrophils # Total Absolute Neuts Lymphocytes # (Manual) Prolymphocyte # Reactive Lymphs # Total Abs Lymphocytes Monocytes # (Manual) Eosinophils # (Manual) Basophils # (Manual) Metamyelocytes # (Man) Myelocytes # (Manual) Promyelocytes # (Man) Blast Cells # (Man) Plasma Cell # (Manual) Other Cells # Nucleated RBCs # (Man) Hypersegmented Neuts Hyposegmented Neuts Hypogranular Neuts Large Granular Lymphs # Lrg Granular Lymphs Hairy Cells Smudge Cells Toxic Granulation Toxic Vacuolation Dohle Bodies Iván Rods Platelet Estimate Hypogranular Platelets Giant Platelets Platelet Satelliting RBC Morphology Polychromasia Hypochromasia Poikilocytosis Basophilic Stippling Anisocytosis Microcytosis Macrocytosis Spherocytes Pappenheimer Bodies Sickle Cells Target Cells Tear Drop Cells Ovalocytes Stomatocytes [place] Bodies Echinocytes Acanthocytes (Spur) Rouleaux RBC Agglutinates Schistocytes Sezary Cell Sodium (136-145) mmol/L Potassium (3.5-5.1) mmol/L Chloride (98-107) mmol/L Carbon Dioxide (21-32) mmol/L Anion Gap (3-11) BUN (6-23) mg/dl Creatinine (0.6-1.4) mg/dl Est Cr Clr Drug Dosing ml/min eGFR BUN/Creatinine Ratio (10-20) Glucose (70-99(Fasting)) mg/dl POC Glucose (70-99) mg/dl Estimat Average Glucose mg/dl Hemoglobin A1c (4.5-5.6) % Calcium (8.6-10.3) mg/dl Total Bilirubin (0.2-1.0) mg/dl AST (13-39) U/L ALT (7-52) U/L Alkaline Phosphatase (34-104) U/L Troponin I High Sens 11.0 (0-20) pg/ml Total Protein (6.0-8.3) gm/dl Albumin (3.4-5.0) gm/dl Globulin (2.5-4.0) gm/dl Albumin/Globulin Ratio (0.9-2) Urine Color Urine Appearance (Clear) Urine pH (4.5-7.5) Ur Specific [place] (1.000-1.030) Urine Protein (Negative) Urine Glucose (UA) (Negative) Urine Ketones (Negative) Urine Blood (Negative) Urine Nitrite (Negative) Urine Bilirubin (Negative) Urine Urobilinogen (Negative) Ur Leukocyte Esterase (Negative) Urine Opiates Screen (Neg) U Codeine Confrm GC/MS Ur Morphine (GC/MS) Ur Hydrocodone (GC/MS) Ur Norhydrocodone Ur Noroxycodone Urine Oxycodone (GC/MS) U Oxymorphone GC/MS Ur Methadone, Qual (Neg) Ur Hydromorphone (GC/MS) Urine Fentanyl Screen (Neg) Urine Barbiturates (Neg) Ur Phencyclidine (PCP) (Neg) U Amphetamines Confirm U Amphetamin/Meth Scrn (Neg) U Methamphetamin Confrm MDMA (Ecstasy) Screen (Neg) U Benzodiazepines Scrn (Neg) Ur Cocaine Metabolite (Neg) U Marijuana (THC) Screen (Neg) Drug Screen Comment Adenovirus (PCR) (NotDetected) B. pertussis DNA (PCR) (NotDetected) B.parapertussis DNA PCR (NotDetected) C. pneumoniae DNA (PCR) (NotDetected) Coronavirus OC43 (PCR) (NotDetected) Coronavirus HKU1 (PCR) (NotDetected) Coronavirus 229E (PCR) (NotDetected) SARS-CoV-2 (PCR) (NotDetected) Coronavirus NL63 (PCR) (NotDetected) Hepatitis C Antibody Pending Human Metapneumovir PCR (NotDetected) Influenza A (H3) PCR (NotDetected) Influenza Type B (PCR) (NotDetected) M. pneumoniae (PCR) (NotDetected) Parainfluenza 1 (PCR) (NotDetected) Parainfluenza 2 (PCR) (NotDetected) Parainfluenza 3 (PCR) (NotDetected) Parainfluenza 4 (PCR) (NotDetected) RSV (PCR) (NotDetected) Entero/Rhino (PCR) (NotDetected) Blood Parasites ID 12/10/24 12/10/24 Range/Units 14:29 13:24 WBC Cancelled RBC Cancelled Hgb Cancelled Hct Cancelled MCV Cancelled MCH Cancelled MCHC Cancelled RDW Std Deviation Cancelled RDW Coeff of Marc Cancelled Plt Count Cancelled MPV Cancelled Immature Gran % (Auto) Cancelled Neut % (Auto) Cancelled Lymph % (Auto) Cancelled Yell % (Auto) Cancelled Eos % (Auto) Cancelled Baso % (Auto) Cancelled Neut # (Auto) Cancelled Lymph # (Auto) Cancelled Yell # (Auto) Cancelled Eos # (Auto) Cancelled Baso # (Auto) Cancelled Immature Gran # (Auto) Cancelled Absolute Nucleated RBC Cancelled Nucleated RBC % (auto) Cancelled Neutrophils % (Manual) Cancelled Band Neutrophils % Cancelled Lymphocytes % (Manual) Cancelled Prolymphocyte % Cancelled Reactive Lymphs % (Man) Cancelled Monocytes % (Manual) Cancelled Eosinophils % (Manual) Cancelled Basophils % (Manual) Cancelled Metamyelocytes % (Man) Cancelled Myelocytes % (Man) Cancelled Promyelocytes % (Man) Cancelled Blast Cells % (Manual) Cancelled Plasma Cell % (Manual) Cancelled Other Cells % Cancelled Nucleated RBC % Cancelled Neutrophils # (Manual) Cancelled Band Neutrophils # Cancelled Total Absolute Neuts Cancelled Lymphocytes # (Manual) Cancelled Prolymphocyte # Cancelled Reactive Lymphs # Cancelled Total Abs Lymphocytes Cancelled Monocytes # (Manual) Cancelled Eosinophils # (Manual) Cancelled Basophils # (Manual) Cancelled Metamyelocytes # (Man) Cancelled Myelocytes # (Manual) Cancelled Promyelocytes # (Man) Cancelled Blast Cells # (Man) Cancelled Plasma Cell # (Manual) Cancelled Other Cells # Cancelled Nucleated RBCs # (Man) Cancelled Hypersegmented Neuts Cancelled Hyposegmented Neuts Cancelled Hypogranular Neuts Cancelled Large Granular Lymphs Cancelled # Lrg Granular Lymphs Cancelled Hairy Cells Cancelled Smudge Cells Cancelled Toxic Granulation Cancelled Toxic Vacuolation Cancelled Dohle Bodies Cancelled Iván Rods Cancelled Platelet Estimate Cancelled Hypogranular Platelets Cancelled Giant Platelets Cancelled Platelet Satelliting Cancelled RBC Morphology Cancelled Polychromasia Cancelled Hypochromasia Cancelled Poikilocytosis Cancelled Basophilic Stippling Cancelled Anisocytosis Cancelled Microcytosis Cancelled Macrocytosis Cancelled Spherocytes Cancelled Pappenheimer Bodies Cancelled Sickle Cells Cancelled Target Cells Cancelled Tear Drop Cells Cancelled Ovalocytes Cancelled Stomatocytes Cancelled [place] Bodies Cancelled Echinocytes Cancelled Acanthocytes (Spur) Cancelled Rouleaux Cancelled RBC Agglutinates Cancelled Schistocytes Cancelled Sezary Cell Cancelled Sodium 130 L (136-145) mmol/L Potassium 4.2 (3.5-5.1) mmol/L Chloride 98 (98-107) mmol/L Carbon Dioxide 26 (21-32) mmol/L Anion Gap 6 (3-11) BUN 15 (6-23) mg/dl Creatinine 0.77 (0.6-1.4) mg/dl Est Cr Clr Drug Dosing 133.8 ml/min eGFR 101.22 BUN/Creatinine Ratio 19.5 (10-20) Glucose 539 H* (70-99(Fasting)) mg/dl POC Glucose (70-99) mg/dl Estimat Average Glucose mg/dl Hemoglobin A1c (4.5-5.6) % Calcium 9.0 (8.6-10.3) mg/dl Total Bilirubin 0.4 (0.2-1.0) mg/dl AST 23 (13-39) U/L ALT 22 (7-52) U/L Alkaline Phosphatase 105 H (34-104) U/L Troponin I High Sens 7.6 (0-20) pg/ml Total Protein 6.6 (6.0-8.3) gm/dl Albumin 3.4 (3.4-5.0) gm/dl Globulin 3.2 (2.5-4.0) gm/dl Albumin/Globulin Ratio 1.1 (0.9-2) Urine Color Urine Appearance (Clear) Urine pH (4.5-7.5) Ur Specific [place] (1.000-1.030) Urine Protein (Negative) Urine Glucose (UA) (Negative) Urine Ketones (Negative) Urine Blood (Negative) Urine Nitrite (Negative) Urine Bilirubin (Negative) Urine Urobilinogen (Negative) Ur Leukocyte Esterase (Negative) Urine Opiates Screen (Neg) U Codeine Confrm GC/MS Ur Morphine (GC/MS) Ur Hydrocodone (GC/MS) Ur Norhydrocodone Ur Noroxycodone Urine Oxycodone (GC/MS) U Oxymorphone GC/MS Ur Methadone, Qual (Neg) Ur Hydromorphone (GC/MS) Urine Fentanyl Screen (Neg) Urine Barbiturates (Neg) Ur Phencyclidine (PCP) (Neg) U Amphetamines Confirm U Amphetamin/Meth Scrn (Neg) U Methamphetamin Confrm MDMA (Ecstasy) Screen (Neg) U Benzodiazepines Scrn (Neg) Ur Cocaine Metabolite (Neg) U Marijuana (THC) Screen (Neg) Drug Screen Comment Adenovirus (PCR) Not Detected (NotDetected) B. pertussis DNA (PCR) Not Detected (NotDetected) B.parapertussis DNA PCR Not Detected (NotDetected) C. pneumoniae DNA (PCR) Not Detected (NotDetected) Coronavirus OC43 (PCR) Not Detected (NotDetected) Coronavirus HKU1 (PCR) Not Detected (NotDetected) Coronavirus 229E (PCR) Not Detected (NotDetected) SARS-CoV-2 (PCR) Not Detected (NotDetected) Coronavirus NL63 (PCR) Not Detected (NotDetected) Hepatitis C Antibody Human Metapneumovir PCR Not Detected (NotDetected) Influenza A (H3) PCR DETECTED A (NotDetected) Influenza Type B (PCR) Not Detected (NotDetected) M. pneumoniae (PCR) Not Detected (NotDetected) Parainfluenza 1 (PCR) Not Detected (NotDetected) Parainfluenza 2 (PCR) Not Detected (NotDetected) Parainfluenza 3 (PCR) Not Detected (NotDetected) Parainfluenza 4 (PCR) Not Detected (NotDetected) RSV (PCR) Not Detected (NotDetected) Entero/Rhino (PCR) Not Detected (NotDetected) Blood Parasites ID Cancelled Medications Administered Current Inpatient Medications Acetaminophen (Acetaminophen 325 Mg Tab) 650 mg PO Q4H PRN PRN Reason: Pain or Fever Stop: 01/09/25 16:46 Last Admin: 12/10/24 19:20 Dose: 650 mg Albuterol (Albut/Ipratrop 3mg/0.5mg Neb 3 Ml Vial) 3 ml NEB Q6R [facility]; Protocol Stop: 01/09/25 18:59 Last Admin: 12/11/24 07:06 Dose: 3 ml Albuterol (Albuterol Hfa 8 Gm Inhaler) 1 puffs INH DAILY PRN PRN Reason: Wheezing Stop: 01/09/25 20:02 Ascorbic Acid (Ascorbic Acid 500 Mg Tab) 500 mg PO DAILY [facility] Stop: 01/10/25 08:59 Last Admin: 12/11/24 08:16 Dose: 500 mg Aspirin (Aspirin 81 Mg Ectab) 81 mg PO DAILY [facility] Stop: 01/10/25 08:59 Last Admin: 12/11/24 08:55 Dose: 81 mg Bupropion HCl (Bupropion Xl 300 Mg Tabcr) 300 mg PO DAILY [facility] Stop: 01/10/25 08:59 Last Admin: 12/11/24 08:16 Dose: 300 mg Cyanocobalamin (Cyanocobalamin (B-12) 500 Mcg Tablet) 1,000 mcg PO DAILY [facility] Stop: 01/10/25 08:59 Last Admin: 12/11/24 08:16 Dose: 1,000 mcg Dextrose (Dextrose 50% 50 Ml Syringe) 25 - 50 ml IV UD PRN; Protocol PRN Reason: Hypoglycemia Protocol Stop: 01/09/25 17:07 Enoxaparin Sodium (Enoxaparin Inj 40 Mg/0.4 Ml Syr) 40 mg SQ Q12H [facility] Stop: 01/09/25 18:59 Last Admin: 12/11/24 08:53 Dose: 40 mg Fluticasone Furoate (Fluticasone Furoate 100mcg 14 Puffs/Inhaler) 1 puffs INH DAILY [facility] Stop: 01/10/25 08:59 Last Admin: 12/11/24 08:17 Dose: 1 puffs Furosemide (Furosemide 40 Mg Tab) 40 mg PO TID [facility] Stop: 01/09/25 20:59 Last Admin: 12/11/24 08:55 Dose: 40 mg Glucagon (Glucagon For Inj 1 Mg Vial) 1 mg SQ UD PRN; Protocol PRN Reason: Hypoglycemia Protocol Stop: 01/09/25 17:07 Glucose (Glucose 40% Gel 15 Gm Tube) 15 - 30 gm PO UD PRN; Protocol PRN Reason: Hypoglycemia Protocol Stop: 01/09/25 17:07 Glucose (Glucose 10 Tab/Tube) 4 - 8 tab PO UD PRN; Protocol PRN Reason: Hypoglycemia Protocol Stop: 01/09/25 17:07 Insulin Aspart (Insulin Aspart Per Unit Charge) 0 units SC ACHS [facility] Stop: 01/09/25 18:44 Last Admin: 12/11/24 08:02 Dose: 20 units Insulin Human NPH (Insulin Human Nph) 18 units SC QDD [facility] Stop: 01/09/25 18:59 Last Admin: 12/10/24 19:21 Dose: 18 units Insulin Human NPH (Insulin Human Nph) 30 units SC DAILY [facility] Stop: 01/10/25 08:59 Last Admin: 12/11/24 08:55 Dose: 30 units Lisinopril (Lisinopril 20 Mg Tab) 20 mg PO QAM [facility] Stop: 01/09/25 20:02 Last Admin: 12/11/24 08:17 Dose: 20 mg Miscellaneous (Carbohydrates For Hypoglycemia ) 15 - 30 gm PO UD PRN PRN Reason: Hypoglycemia Protocol Stop: 01/09/25 17:07 Miscellaneous Information (Pharmacy Glycemic Mgmt Consult) 1 each N/A UD PRN PRN Reason: Consult Stop: 01/09/25 17:07 Multivitamins (Multivitamin Tab) 1 tab PO DAILY [facility] Stop: 01/10/25 08:59 Last Admin: 12/11/24 08:17 Dose: 1 tab Nystatin (Nystatin Oint 15 Gm Tube) 1 appln EXT BID [facility] Stop: 01/10/25 10:14 Last Admin: 12/11/24 10:40 Dose: 1 appln Oseltamivir Phosphate (Oseltamivir Phosphate 75 Mg Cap) 75 mg PO BID [facility] Stop: 12/16/24 08:59 Last Admin: 12/11/24 08:54 Dose: 75 mg Prednisone (Prednisone 50 Mg Tab) 50 mg PO DAILY [facility] Stop: 01/10/25 08:59 Last Admin: 12/11/24 08:55 Dose: 50 mg Sertraline HCl (Sertraline Hcl 100 Mg Tablet) 100 mg PO QAM [facility] Stop: 01/10/25 08:59 Last Admin: 12/11/24 08:16 Dose: 100 mg Spironolactone (Spironolactone 25 Mg Tab) 25 mg PO DAILY [facility] Stop: 01/10/25 08:59 Last Admin: 12/11/24 08:17 Dose: 25 mg Tamsulosin HCl (Tamsulosin Hcl 0.4 Mg Cap) 0.4 mg PO DAILY [facility] Stop: 01/10/25 08:59 Last Admin: 12/11/24 08:55 Dose: 0.4 mg
[2024-12-11] MEDS: NYSTATIN OINT 15 GM TUBE EXT SCH (10:40)
--- NOTE | 2024-12-11 11:26 | Pharmacy Report ---
Pharmacy Glycemic Short Note 2 - Date of Service December 11, 2024 - Glycemic Short BSG Results (Last 24 hours): 12/10/24 12/10/24 12/10/24 14:29 18:24 19:16 Glucose 539 H* POC Glucose 403 H* 413 H* 12/10/24 12/10/24 12/10/24 19:18 19:50 21:16 Glucose POC Glucose 444 H* 354 H* 366 H* 12/11/24 12/11/24 12/11/24 00:18 04:42 07:02 Glucose POC Glucose 382 H* 286 H 387 H* 12/11/24 12/11/24 12/11/24 07:03 07:03 11:07 Glucose POC Glucose 274 H 275 H 276 H OUTPATIENT ANTIDIABETIC REGIMEN: * Novolog 60 units SQ BIDM * Toujeo 100 units SQ BID * empagliflozin 25mg PO daily * metformin 1500mg PO daily HbA1C: 12.7 % ASSESSMENT: * Pt is a 64 YOM with a history of DM2 well known to the glycemic pharmacy service. Admitted with SOB/hypoxia likely due to influenza A vs. CHF exacerbation. Pharmacy consulted to assist with inpatient glycemic management. * Pt historically requires significantly less insulin inpatient compared to home usage. In July, requiring ~ 48 units of basal/day. Does not tolerate Lantus (on Toujeo @ home) and typically dosed with NPH while admitted. * BSGs [phone]/dL since admission. Received 10 units IV insulin yesterday + 18 units of NPH and 43 units of SQ bolus insulin. * Received 125mg IV methypred yesterday and continued on prednisone 50mg PO daily. Tolerating diet. * Will continue NPH based upon historic admission parameters - 30 units qAM and 18 units with dinner and adjust based upon BSG trend. Novolog tightened to 15/4 today at lunch. PLAN FOR INPATIENT GLYCEMIC CONTROL: * Hold outpatient oral diabetes medications * Basal insulin * NPH 30 units SQ daily with breakfast and 18 units SQ with dinner * Bolus insulin * NovoLog per scale ACHS or Q6hrs while NPO * Goal Range: Low 110 mg/dL - High 140 mg/dL * Correction Factor: 15 mg/dL/unit * Nutritional / Prandial insulin per carb ratio of 1 unit per 4 grams CHO consumed
[2024-12-11 17:21] LABS: BUN Creatinine Ratio 26.8 (10-20); Calcium 8.8 mg/dl (8.6-10.3); Creatinine Clr Calc Pharmacy 105.2 ml/min
[2024-12-11] MEDS ORDERED: POTASSIUM PHOS 3 MMOL/1 ML INFUSION IV STA (17:26)
[2024-12-11] MEDS: POTASSIUM PHOSPHATE 6 MMOL in SODIUM CHLORIDE 0.9% 100 ML IV ONE (18:19)
[2024-12-11] MEDS ORDERED: INSULIN HUMAN NPH SC SCH (19:00)
[2024-12-12 06:26] LABS: Hematocrit (blood only) 49.8 % (42.0-52.0); Mean Corpuscular Hemoglobin 29.3 pg (25.0-34.0); Mean Corpuscular Hgb Conc 34.1 g/dL (32.0-36.0); Mean Corpuscular Volume 85.7 fL (80.0-100.0); Mean Platelet Volume 9.9 fL (9.4-12.4); Platelet Count 208 K/uL (130-400); RDW Coefficient of Variation 12.7 % (11.5-14.5); RDW Standard Deviation 39.7 fL (36.4-46.3); Red Blood Count 5.81 M/uL (4.70-6.10); White Blood Count 12.56 K/ul (4.8-10.8)
[2024-12-12 06:35] LABS: Calcium 8.7 mg/dl (8.6-10.3); Magnesium 1.9 mg/dl (1.7-2.4); Potassium 3.7 mmol/L (3.5-5.1)
[2024-12-12 06:40] LABS: Creatinine Clr Calc Pharmacy 132.4 ml/min
[2024-12-12] MEDS: INSULIN HUMAN NPH SC SCH (08:02)
[2024-12-12] MEDS ORDERED: POTASSIUM PHOS 3 MMOL/1 ML INFUSION IV STA (08:52)
--- NOTE | 2024-12-12 08:55 | Hospitalist Progress Note ---
Date of Service December 12, 2024 Assessment & Plan (1) Influenza A: (2) Hypoxia: Plan: (1) Hypoxia: (2) Hyperglycemia: (3) Influenza A: Plan SOB likely 2/2 flu vs. HFpEF exacerbation -Tamiflu -IV steroids given in the ED, will continue on orals -duonebs scheduled-> change to prn -diuresis, restart home dose and monitor for symptom improvement -most recent echo 04/03, will defer to outpatient -O2 PRN, currently on RA Hyperglycemia likely 2/2 IDDM noncompliant to insulin - current A1c 12.7% -restart home regimen and monitor for now given noncompliance issues -consider ISS if unresponsive to this regimen -hypoglycemia protocol Afib w/ RVR 12/12 AM pt in Afib w/ RVR asymptomatic. received 2.5 iv metoprolol pt says he is supposed to take 50 bid metoprolol, but takes 50 daily - this was not on home med list on admission will start metoprolol po 25 bid and will consult w/ cardiology BPH, PVD, CAD Htn -home meds #polysubstance abuse (heroin, meth) w/recent use, #untreated hep C -UDS posit. for meth, opioids, final results pending - hep C quantitative ordered - further follow up defer to outpatient diabetic diet DVT ppx Admission and Anticipated Discharge Date Admission Date: December 10, 2024 Subjective Pt seen in follow up of shortness of breath, hypoxia, + Flu Currently lying in bed in NAD no fever, chills, chest pain + cough no abd. pain This AM pt in Afib w/ RVR. Says he has no hx of arrhythmia, but takes metoprolol 50 bid. Metoprolol was not listed on his home med list on admission. Ordered 2.5 IV metoprolol stat, and 25 po bid. Will further consult w/ cardiology. Pt however feels well, asymptomatic. Review of Systems Review of Systems: All systems reviewed & are unremarkable except as noted in Subjective Physical Exam Physical Exam: Constitutional: WD/WN, vitals as a ashish Eyes: PERRL, conjunctiva e normal, anicteri c sclerae ENMT: external ear and n ose normal Neck: supple Respiratory: normal respiratory effort Auscultat ion: + rhonchi and + wheezes Cardiovascular: tachycardic, no m urmur, no edema Chest (Breasts): Chest: normal insp ection of chest Gastrointestinal ( Abdomen): Percussion/Palpati on: abdomen soft ( + bowel sounds); a bdomen nontender Musculoskeletal: extremities motor strength 5/5 Skin: no rashes, warm an d dry Neurologic: PERRL, EOMI, no fa ce palsy, no dysar thria, moves extre mities Results & Data Results & Data Vital Signs (Past 12 Hours) Vital Signs Temp Pulse Pulse Resp BP Pulse Ox O2 Del Method 12/12/24 07:17 36.4 C L 106 H 18 136/82 92 Room Air 12/12/24 07:13 80 16 92 Room Air 12/12/24 03:23 36.8 C 99 H 20 117/85 93 Room Air 12/12/24 01:50 109 H 20 94 Room Air 12/11/24 23:00 96 H 12/11/24 22:37 36.7 C 101 H 20 124/84 94 Room Air Laboratory Results 12/12/24 12/12/24 12/12/24 Range/Units 07:15 05:38 03:21 WBC 12.56 H (4.8-10.8) K/ul RBC 5.81 (4.70-6.10) M/uL Hgb 17.0 (14.0-18.0) g/dl Hct 49.8 (42.0-52.0) % MCV 85.7 (80.0-100.0) fL MCH 29.3 (25.0-34.0) pg MCHC 34.1 (32.0-36.0) g/dL RDW Std Deviation 39.7 (36.4-46.3) fL RDW Coeff of Marc 12.7 (11.5-14.5) % Plt Count 208 (130-400) K/uL MPV 9.9 (9.4-12.4) fL Sodium 137 (136-145) mmol/L Potassium 3.7 (3.5-5.1) mmol/L Chloride 105 (98-107) mmol/L Carbon Dioxide 27 (21-32) mmol/L Anion Gap 5 (3-11) BUN 20 (6-23) mg/dl Creatinine 0.77 (0.6-1.4) mg/dl Est Cr Clr Drug Dosing 132.4 ml/min eGFR 101.22 BUN/Creatinine Ratio 26.0 H (10-20) Glucose 226 H (70-99(Fasting)) mg/dl POC Glucose 182 H 267 H (70-99) mg/dl Estimat Average Glucose mg/dl Hemoglobin A1c (4.5-5.6) % Calcium 8.7 (8.6-10.3) mg/dl Phosphorus 2.0 L (2.5-4.9) mg/dl Magnesium 1.9 (1.7-2.4) mg/dl Hepatitis C Antibody (Negative) HCV RNA (PCR) IUs/ml HCV RNA PCR log IUs/ml 12/11/24 12/11/24 12/11/24 Range/Units Unknown 20:23 16:28 WBC (4.8-10.8) K/ul RBC (4.70-6.10) M/uL Hgb (14.0-18.0) g/dl Hct (42.0-52.0) % MCV (80.0-100.0) fL MCH (25.0-34.0) pg MCHC (32.0-36.0) g/dL RDW Std Deviation (36.4-46.3) fL RDW Coeff of Marc (11.5-14.5) % Plt Count (130-400) K/uL MPV (9.4-12.4) fL Sodium 137 (136-145) mmol/L Potassium 4.0 (3.5-5.1) mmol/L Chloride 103 (98-107) mmol/L Carbon Dioxide 26 (21-32) mmol/L Anion Gap 8 (3-11) BUN 26 H (6-23) mg/dl Creatinine 0.97 (0.6-1.4) mg/dl Est Cr Clr Drug Dosing 105.2 ml/min eGFR 88.26 BUN/Creatinine Ratio 26.8 H (10-20) Glucose 345 H* (70-99(Fasting)) mg/dl POC Glucose 314 H* (70-99) mg/dl Estimat Average Glucose 318 mg/dl Hemoglobin A1c 12.7 H (4.5-5.6) % Calcium 8.8 (8.6-10.3) mg/dl Phosphorus 2.0 L (2.5-4.9) mg/dl Magnesium 2.0 (1.7-2.4) mg/dl Hepatitis C Antibody (Negative) HCV RNA (PCR) IUs/ml HCV RNA PCR log IUs/ml 12/11/24 12/11/24 12/11/24 Range/Units 16:05 16:04 11:07 WBC (4.8-10.8) K/ul RBC (4.70-6.10) M/uL Hgb (14.0-18.0) g/dl Hct (42.0-52.0) % MCV (80.0-100.0) fL MCH (25.0-34.0) pg MCHC (32.0-36.0) g/dL RDW Std Deviation (36.4-46.3) fL RDW Coeff of Marc (11.5-14.5) % Plt Count (130-400) K/uL MPV (9.4-12.4) fL Sodium (136-145) mmol/L Potassium (3.5-5.1) mmol/L Chloride (98-107) mmol/L Carbon Dioxide (21-32) mmol/L Anion Gap (3-11) BUN (6-23) mg/dl Creatinine (0.6-1.4) mg/dl Est Cr Clr Drug Dosing ml/min eGFR BUN/Creatinine Ratio (10-20) Glucose (70-99(Fasting)) mg/dl POC Glucose 305 H* 317 H* 276 H (70-99) mg/dl Estimat Average Glucose mg/dl Hemoglobin A1c (4.5-5.6) % Calcium (8.6-10.3) mg/dl Phosphorus (2.5-4.9) mg/dl Magnesium (1.7-2.4) mg/dl Hepatitis C Antibody (Negative) HCV RNA (PCR) IUs/ml HCV RNA PCR log IUs/ml 12/10/24 Range/Units 17:10 WBC (4.8-10.8) K/ul RBC (4.70-6.10) M/uL Hgb (14.0-18.0) g/dl Hct (42.0-52.0) % MCV (80.0-100.0) fL MCH (25.0-34.0) pg MCHC (32.0-36.0) g/dL RDW Std Deviation (36.4-46.3) fL RDW Coeff of Marc (11.5-14.5) % Plt Count (130-400) K/uL MPV (9.4-12.4) fL Sodium (136-145) mmol/L Potassium (3.5-5.1) mmol/L Chloride (98-107) mmol/L Carbon Dioxide (21-32) mmol/L Anion Gap (3-11) BUN (6-23) mg/dl Creatinine (0.6-1.4) mg/dl Est Cr Clr Drug Dosing ml/min eGFR BUN/Creatinine Ratio (10-20) Glucose (70-99(Fasting)) mg/dl POC Glucose (70-99) mg/dl Estimat Average Glucose mg/dl Hemoglobin A1c (4.5-5.6) % Calcium (8.6-10.3) mg/dl Phosphorus (2.5-4.9) mg/dl Magnesium (1.7-2.4) mg/dl Hepatitis C Antibody Prelim Positive A (Negative) HCV RNA (PCR) IUs/ml Pending HCV RNA PCR log IUs/ml Pending Medications Administered Current Inpatient Medications Acetaminophen (Acetaminophen 325 Mg Tab) 650 mg PO Q4H PRN PRN Reason: Pain or Fever Stop: 01/09/25 16:46 Last Admin: 12/10/24 19:20 Dose: 650 mg Albuterol (Albut/Ipratrop 3mg/0.5mg Neb 3 Ml Vial) 3 ml NEB Q6R [facility]; Protocol Stop: 01/09/25 18:59 Last Admin: 12/12/24 07:13 Dose: 3 ml Albuterol (Albuterol Hfa 8 Gm Inhaler) 1 puffs INH DAILY PRN PRN Reason: Wheezing Stop: 01/09/25 20:02 Ascorbic Acid (Ascorbic Acid 500 Mg Tab) 500 mg PO DAILY [facility] Stop: 01/10/25 08:59 Last Admin: 12/12/24 08:03 Dose: 500 mg Aspirin (Aspirin 81 Mg Ectab) 81 mg PO DAILY [facility] Stop: 01/10/25 08:59 Last Admin: 12/12/24 08:03 Dose: 81 mg Bupropion HCl (Bupropion Xl 300 Mg Tabcr) 300 mg PO DAILY [facility] Stop: 01/10/25 08:59 Last Admin: 12/12/24 08:04 Dose: 300 mg Cyanocobalamin (Cyanocobalamin (B-12) 500 Mcg Tablet) 1,000 mcg PO DAILY [facility] Stop: 01/10/25 08:59 Last Admin: 12/12/24 08:04 Dose: 1,000 mcg Dextrose (Dextrose 50% 50 Ml Syringe) 25 - 50 ml IV UD PRN; Protocol PRN Reason: Hypoglycemia Protocol Stop: 01/09/25 17:07 Enoxaparin Sodium (Enoxaparin Inj 40 Mg/0.4 Ml Syr) 40 mg SQ Q12H [facility] Stop: 01/09/25 18:59 Last Admin: 12/12/24 06:35 Dose: 40 mg Fluticasone Furoate (Fluticasone Furoate 100mcg 14 Puffs/Inhaler) 1 puffs INH DAILY [facility] Stop: 01/10/25 08:59 Last Admin: 12/12/24 08:07 Dose: 1 puffs Furosemide (Furosemide 40 Mg Tab) 40 mg PO TID [facility] Stop: 01/09/25 20:59 Last Admin: 12/12/24 08:04 Dose: 40 mg Glucagon (Glucagon For Inj 1 Mg Vial) 1 mg SQ UD PRN; Protocol PRN Reason: Hypoglycemia Protocol Stop: 01/09/25 17:07 Glucose (Glucose 40% Gel 15 Gm Tube) 15 - 30 gm PO UD PRN; Protocol PRN Reason: Hypoglycemia Protocol Stop: 01/09/25 17:07 Glucose (Glucose 10 Tab/Tube) 4 - 8 tab PO UD PRN; Protocol PRN Reason: Hypoglycemia Protocol Stop: 01/09/25 17:07 Insulin Aspart (Insulin Aspart Per Unit Charge) 0 units SC ACHS [facility] Stop: 01/09/25 18:44 Last Admin: 12/12/24 07:53 Dose: 23 units Insulin Human NPH (Insulin Human Nph) 18 units SC QDD [facility] Stop: 01/09/25 18:59 Last Admin: 12/11/24 16:27 Dose: 18 units Insulin Human NPH (Insulin Human Nph) 45 units SC DAILY@0800 [facility] Stop: 01/11/25 07:59 Last Admin: 12/12/24 08:02 Dose: 45 units Lisinopril (Lisinopril 20 Mg Tab) 20 mg PO QAM [facility] Stop: 01/09/25 20:02 Last Admin: 12/12/24 08:03 Dose: 20 mg Metoprolol Tartrate (Metoprolol Tartrate 1 Mg/Ml Vial) 2.5 mg IV NOW STA Stop: 12/12/24 08:53 Miscellaneous (Carbohydrates For Hypoglycemia ) 15 - 30 gm PO UD PRN PRN Reason: Hypoglycemia Protocol Stop: 01/09/25 17:07 Miscellaneous Information (Pharmacy Glycemic Mgmt Consult) 1 each N/A UD PRN PRN Reason: Consult Stop: 01/09/25 17:07 Multivitamins (Multivitamin Tab) 1 tab PO DAILY [facility] Stop: 01/10/25 08:59 Last Admin: 12/12/24 08:04 Dose: 1 tab Nystatin (Nystatin Oint 15 Gm Tube) 1 appln EXT BID [facility] Stop: 01/10/25 10:14 Last Admin: 12/12/24 08:08 Dose: 1 appln Oseltamivir Phosphate (Oseltamivir Phosphate 75 Mg Cap) 75 mg PO BID [facility] Stop: 12/16/24 08:59 Last Admin: 12/12/24 08:08 Dose: 75 mg Potassium Phosphate (Potassium Phos 3 Mmol/1 Ml Infusion) 6 mmol IV NOW STA Stop: 12/12/24 08:53 Prednisone (Prednisone 50 Mg Tab) 50 mg PO DAILY [facility] Stop: 01/10/25 08:59 Last Admin: 12/12/24 08:04 Dose: 50 mg Sertraline HCl (Sertraline Hcl 100 Mg Tablet) 100 mg PO QAM [facility] Stop: 01/10/25 08:59 Last Admin: 12/12/24 08:08 Dose: 100 mg Spironolactone (Spironolactone 25 Mg Tab) 25 mg PO DAILY [facility] Stop: 01/10/25 08:59 Last Admin: 12/12/24 08:08 Dose: 25 mg Tamsulosin HCl (Tamsulosin Hcl 0.4 Mg Cap) 0.4 mg PO DAILY [facility] Stop: 01/10/25 08:59 Last Admin: 12/12/24 08:04 Dose: 0.4 mg
[2024-12-12] MEDS: METOPROLOL TARTRATE 1 MG/ML VIAL IV STA (09:10)
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
[2024-12-12] MEDS: POTASSIUM PHOSPHATE 6 MMOL in SODIUM CHLORIDE 0.9% 100 ML IV ONE (09:50)
[2024-12-12] MEDS ORDERED: ALBUT/IPRATROP 3MG/0.5MG NEB 3 ML VIAL NEB PRN (09:51)
[2024-12-12] MEDS: METOPROLOL TARTRATE 25 MG TAB PO SCH (09:51)
--- NOTE | 2024-12-12 10:54 | Pharmacy Report ---
Pharmacy Glycemic Short Note 2 - Date of Service December 12, 2024 - Glycemic Short BSG Results (Last 24 hours): 12/11/24 12/11/24 12/11/24 11:07 16:04 16:05 Glucose POC Glucose 276 H 317 H* 305 H* 12/11/24 12/11/24 12/12/24 16:28 20:23 03:21 Glucose 345 H* POC Glucose 314 H* 267 H 12/12/24 12/12/24 05:38 07:15 Glucose 226 H POC Glucose 182 H OUTPATIENT ANTIDIABETIC REGIMEN: * Novolog 60 units SQ BIDM * Toujeo 100 units SQ BID * empagliflozin 25mg PO daily * metformin 1500mg PO daily HbA1C: 12.7 % ASSESSMENT: 12/12 * BSGs elevated over last 24 hrs * 125 units SQ insulin given over last 24 hours while tolerating a diet * Fasting BSG 182 this AM. This is following receipt of 48 units NPH yesterday (30 AM + 18 PM) as well as receiving 21 units correctional insulin overnight. Pt continues Prednisone 50mg PO daily in the AM. Will increase AM NPH dose at this time as much of the patient's hyperglycemia is due to AM Prednisone. Will increase prandial insulin dose this AM as well in attempts to better control post-prandial BSGs today. 12/11 * Pt is a 64 YOM with a history of DM2 well known to the glycemic pharmacy service. Admitted with SOB/hypoxia likely due to influenza A vs. CHF exacerbation. Pharmacy consulted to assist with inpatient glycemic management. * Pt historically requires significantly less insulin inpatient compared to home usage. In July, requiring ~ 48 units of basal/day. Does not tolerate Lantus (on Toujeo @ home) and typically dosed with NPH while admitted. * BSGs [phone]/dL since admission. Received 10 units IV insulin yesterday + 18 units of NPH and 43 units of SQ bolus insulin. * Received 125mg IV methypred yesterday and continued on prednisone 50mg PO daily. Tolerating diet. * Will continue NPH based upon historic admission parameters - 30 units qAM and 18 units with dinner and adjust based upon BSG trend. Novolog tightened to 15/4 today at lunch. PLAN FOR INPATIENT GLYCEMIC CONTROL: * Hold outpatient oral diabetes medications * Basal insulin * NPH 45 units SQ with breakfast and 18 units SQ with dinner * Bolus insulin * NovoLog per scale ACHS or Q6hrs while NPO * Goal Range: Low 110 mg/dL - High 140 mg/dL * Correction Factor: 15 mg/dL/unit * Nutritional / Prandial insulin per carb ratio of 1 unit per 3 grams CHO consumed * Down titrate insulin doses when steroid dose lessened to avoid hypoglycemia
[2024-12-12] MEDS: METOPROLOL TARTRATE 25 MG TAB PO STA (11:43)
[2024-12-12] MEDS: MAGNESIUM SULFATE / D5W 1 GM/100 ML BAG IV SCH (12:46)
[2024-12-12] MEDS: METOPROLOL SUCC 50MG EXT REL TAB PO SCH (21:01)
[2024-12-13 06:21] LABS: Hematocrit (blood only) 49.9 % (42.0-52.0); Hemoglobin 16.8 g/dl (14.0-18.0); Mean Corpuscular Hemoglobin 28.8 pg (25.0-34.0); Mean Corpuscular Hgb Conc 33.7 g/dL (32.0-36.0); Mean Corpuscular Volume 85.6 fL (80.0-100.0); Mean Platelet Volume 9.8 fL (9.4-12.4); Platelet Count 220 K/uL (130-400); RDW Coefficient of Variation 12.9 % (11.5-14.5); RDW Standard Deviation 39.8 fL (36.4-46.3); Red Blood Count 5.83 M/uL (4.70-6.10); White Blood Count 12.01 K/ul (4.8-10.8)
[2024-12-13 07:00] LABS: Anion Gap 3 (3-11); BUN Creatinine Ratio 26.7 (10-20); Blood Urea Nitrogen 20 mg/dl (6-23); Calcium 8.4 mg/dl (8.6-10.3); Carbon Dioxide 32 mmol/L (21-32); Chloride 103 mmol/L (98-107); Creatinine Clr Calc Pharmacy 135.6 ml/min; Glucose 211 mg/dl (70-99(Fasting)); Phosphorus 2.5 mg/dl (2.5-4.9); Sodium 138 mmol/L (136-145)
[2024-12-13 07:29] VITALS: RESP 20; TEMP 97.5; O2SAT 92
[2024-12-13] MEDS: INSULIN HUMAN NPH SC SCH (08:22)
[2024-12-13 10:54] VITALS: BP 117/74
--- NOTE | 2024-12-13 12:08 | Pharmacy Report ---
Pharmacy Glycemic Short Note 2 - Date of Service December 13, 2024 - Glycemic Short BSG Results (Last 24 hours): 12/12/24 12/12/24 12/13/24 16:02 20:41 05:39 Glucose 211 H POC Glucose 265 H 175 H 12/13/24 12/13/24 07:27 11:07 Glucose POC Glucose 198 H 277 H OUTPATIENT ANTIDIABETIC REGIMEN: * Novolog 60 units SQ BIDM * Toujeo 100 units SQ BID * empagliflozin 25mg PO daily * metformin 1500mg PO daily HbA1C: 12.7 % ASSESSMENT: 12/13 * BSGs improved over last 24 hrs, however post-prandial hyperglycemia still present w/ lunch and dinner * 159 units SQ insulin given over last 24 hours while tolerating diet (receiving Prednisone 50mg Q AM) * Will up-titrate AM NPH dose to target highest BSGs - again likely secondary to AM Prednisone * Will add more correctional insulin today as well 12/12 * BSGs elevated over last 24 hrs * 125 units SQ insulin given over last 24 hours while tolerating a diet (receiving Prednisone 50mg Q AM) * Fasting BSG 182 this AM. This is following receipt of 48 units NPH yesterday (30 AM + 18 PM) as well as receiving 21 units correctional insulin overnight. Pt continues Prednisone 50mg PO daily in the AM. Will increase AM NPH dose at this time as much of the patient's hyperglycemia is due to AM Prednisone. Will increase prandial insulin dose this AM as well in attempts to better control post-prandial BSGs today. 12/11 * Pt is a 64 YOM with a history of DM2 well known to the glycemic pharmacy service. Admitted with SOB/hypoxia likely due to influenza A vs. CHF exacerbation. Pharmacy consulted to assist with inpatient glycemic management. * Pt historically requires significantly less insulin inpatient compared to home usage. In July, requiring ~ 48 units of basal/day. Does not tolerate Lantus (on Toujeo @ home) and typically dosed with NPH while admitted. * BSGs [phone]/dL since admission. Received 10 units IV insulin yesterday + 18 units of NPH and 43 units of SQ bolus insulin. * Received 125mg IV methypred yesterday and continued on prednisone 50mg PO daily. Tolerating diet. * Will continue NPH based upon historic admission parameters - 30 units qAM and 18 units with dinner and adjust based upon BSG trend. Novolog tightened to 15/4 today at lunch. PLAN FOR INPATIENT GLYCEMIC CONTROL: * Hold outpatient oral diabetes medications * Basal insulin * NPH 52 units SQ with breakfast and 18 units SQ with dinner * Bolus insulin * NovoLog per scale ACHS or Q6hrs while NPO * Goal Range: Low 110 mg/dL - High 140 mg/dL * Correction Factor: 12 mg/dL/unit * Nutritional / Prandial insulin per carb ratio of 1 unit per 3 grams CHO consumed * Down titrate insulin doses when steroid dose lessened to avoid hypoglycemia
--- NOTE | 2024-12-13 12:14 | Cardiology Progress Note ---
Date of Service December 13, 2024 Assessment & Plan (1) Paroxysmal atrial fibrillation: (2) Paroxysmal atrial tachycardia: (3) Sinus tachycardia: (4) PAC (premature atrial contraction): (5) Influenza A: (6) Methamphetamine abuse: Plan 64-year-old male admitted with acute influenza A infection, hypoxia, hyperglycemia due to noncompliance with diabetic medications. Cardiology consultation requested due to frequent PACs, possible atrial fibrillation versus atrial tachycardia on monitor. Tachycardia precipitated by lack of beta-kemal therapy since admission. Metoprolol restarted yesterday, 50 mg twice daily. No recurrent tachycardia over night. Recommendations: * Continue Toprol-XL 50 mg twice daily, first dose this evening. * Resting echocardiogram demonstrates preserved LV function without valvular pathology. * Avoid any future use of methamphetamine. * Discussed importance of compliance with medical therapies. * Supplement electrolytes as indicated, maintain serum potassium greater than 4.0, and serum magnesium greater than 2.0. * No further inpatient cardiac testing or intervention recommended at this time. * Cardiology will sign off. * Please call with additional concerns/questions. Dre Sidhu DO, [facility] Admission and Anticipated Discharge Date Admission Date: December 10, 2024 Subjective 64-year-old male seen examined the bedside. Feeling better today. No recurrent tachycardia on monitor. Denies palpitations or lightheadedness. No chest pain or shortness of breath. Review of Systems Review of Systems: All systems reviewed & are unremarkable except as noted in Subjective Physical Exam Constitutional: + obese; no acute distress Respiratory: no respiratory distress, no labored breathing and no retractions Auscultation: + diminished lung sounds (Bases bilateral); no rhonchi and no wheezes Cardiovascular: Rate/Rhythm: regular rhythm Heart Sounds: normal S1 and normal S2; no murmur Vessels: no JVD and + radial pulses abnormal Extremities: no edema Gastrointestinal (Abdomen): Inspection/Auscultation: normal bowel sounds; abdomen not distended Percussion/Palpation: abdomen soft; abdomen nontender, no guarding and abdomen not rigid Neurologic: CN's II-XI intact bilaterally and moves all extremities Psychiatric: A+Ox3, euthymic affect Results & Data Vital Signs (Past 12 Hours) Vital Signs Temp Pulse Resp BP Pulse Ox O2 Del Method 12/13/24 10:53 36.4 C L 67 20 117/74 92 Room Air 12/13/24 08:16 Room Air 03/05/25 07:29 36.4 C L 69 20 137/79 92 Room Air 12/13/24 02:47 36.5 C 68 16 131/82 93 Room Air Laboratory Results CBC 12/13/24 Range/Units 05:39 WBC 12.01 H (4.8-10.8) K/ul RBC 5.83 (4.70-6.10) M/uL Hgb 16.8 (14.0-18.0) g/dl Hct 49.9 (42.0-52.0) % Plt Count 220 (130-400) K/uL Comprehensive Metabolic Panel 12/13/24 12/13/24 Range/Units 05:39 07:11 Sodium 138 (136-145) mmol/L Potassium TNP 3.9 Chloride 103 (98-107) mmol/L Carbon Dioxide 32 (21-32) mmol/L BUN 20 (6-23) mg/dl Creatinine 0.75 (0.6-1.4) mg/dl Glucose 211 H (70-99(Fasting)) mg/dl Calcium 8.4 L (8.6-10.3) mg/dl Intake and Output 12/12/24 12/13/24 12/13/24 22:59 06:59 14:59 Intake Total 340 / 1680.333 360 / 1680.333 Output Total 1600 / 3275 400 / 400 Balance 340 / -1594.667 -1240 / -1594.667 -400 / -400 Intake: IV 100 / 260.333 Magnesium Sulfate / D5w 1 gm In 100 / 158.333 100 ml @ 50 mls/hr IV Q2H [facility] Rx#:[id number] Oral 240 / 1420 360 / 1420 Output: Urine 1600 / 3275 400 / 400 Other: Weight 125.2 kg Weight Measurement Method Built in [facility]
[2024-12-13 14:14] LABS: Amphetamine Urine, Confirm 492 ng/mL (<250); Codeine Urine NEGATIVE ng/mL (<50); Hydrocodone Urine NEGATIVE ng/mL (<50); Hydromor Urine NEGATIVE ng/mL (<50); Methamphetamine, Ur Confirm 2785 ng/mL (<250); Morphine Urine NEGATIVE ng/mL (<50); Norhydrocodone Conf Ur NEGATIVE ng/mL (<50); Noroxycodone Urine NEGATIVE ng/mL (<50); Oxycodone Urine NEGATIVE ng/mL (<50); Oxymorph Urine NEGATIVE ng/mL (<50)
--- NOTE | 2024-12-13 14:34 | Discharge Summary ---
Discharge Summary Date of Service December 13, 2024 Principal Dx & Hospital Course #1 = Principal Diagnosis (1) Influenza A: (2) Hypoxia: (3) Atrial fibrillation with RVR: Plan Acute Hypoxic Respiratory failure Influenza Infection CHF Exacerbation Hx of nonischemic cardiomyopathy Pt presented hypoxic and SOB Respiratory viral panel positive for influenza Chest XR noting pulmonary vascular congestion and trace pleural effusions Echo with EF 60-65%, Grade 1 diastolic dysfunction Was diuresed with po lasix 40mg TID along with home spironolactone 25mg po daily -unclear if pt currently on lasix 40mg TID at home as last prescription per [facility] was in 2019 -He was negative 3L on discharge -He was discharged home with a daily po lasix 20mg daily with PCP/cardiology follow up for continued titration of dosing as needed. Continue home spironolactone 20mg daily, jardiance 25mg daily, BECKY and BB. Also discharged with 2 more days of tamiflu, steroid rx completed inpatient Oxygen was supplemented and he was on RA on the day of discharge Close PCP and cardiology follow up after discharge, hx of nonischemic cardiomyopathy as well. Atrial Fibrillation with RVR On 12/12 pt with episodes of a fib with RVR pt says he is supposed to take 50 bid metoprolol, but takes 50 daily Home dosing of Toprol XL 50mg BID resumed Cardiology was consulted, recommended/stated the following: "...Continue Toprol-XL 50 mg twice daily... Resting echocardiogram demonstrates preserved LV function without valvular pathology... Avoid any future use of methamphetamine... Discussed importance of compliance with medical therapies... Supplement electrolytes as indicated, maintain serum potassium greater than 4.0, and serum magnesium greater than 2.0..." Close PCP and cardiology follow up after discharge Polysubstance abuse (heroin, meth) w/recent use Untreated Hepatitis C Urine drug screen positive for meth, opioids, final confirmatory testing noting elevated levels Hep C testing prelim positive Hep C confirmatory RNA/quantitative ordered and pending at the time of discharge PCP follow up for treatment with Hepatology as needed Encourage cessation of meth/heroin use DMII current A1c 12.7% pt with poor compliance of home insulin regimen, metformin, jardiance Resume home regimen on discharge Close PCP followup, will likely need close management with [facility] diabetic management after discharge Notes For Next Care Provider Encourage medication compliance Will need diabetic management followup Will need close cardiology followup Will need followup of Hepatitis C levels and treatment as needed Medication Changes From Visit Lasix 20mg daily Metoprolol 50mg BID Tamiflu for 2 more days Admission HPI Per Admitting Provider 64M pmh polysubstance abuse (heroin, meth) w/recent use, untreated hep C, HFpEF, toxoplasmosis, htn, BPH, IDDM, PVD, CAD who presents to the ED with SOB. Patient states for the last 3-5d has been having sob, cough, myalgias, fatigue. Has sick contacts who have both the flu and pneumonia. Denies fever, chills, cp, n/v, other symptoms. In the ED also found to be significantly hyperglycemic, sta herbert the last time he took his insulin was 3-4d ago. States that he was diagnosed with HF in the past and takes 40mg lasix TID, takes this every day. States that his most recent drug use was a few weeks ago, uses drugs via the nasal route, denies IVDU in many years. Admission Exam Per Admitting Provider Constitutional: WD/WN, vitals as above Respiratory: Auscultation: + wheezes Discharge Exam General: Alert, oriented. No acute distress Skin: No noted rashes or bruises Psych: Appropriate mood and affect Neuro: No gross deficits while in bed HEENT: NC/AT CV: RRR Resp: Breath sounds clear bilaterally, no increased effort of breathing Abdomen:Soft, nontender Extremities: No edema in lower extremities bilaterally. Updated Medication List Medication Instructions Recorded Confirmed Type aspirin 81 mg tablet,delayed 81 mg PO DAILY 08/01/22 12/10/24 History release bupropion HCl 300 mg 24 hr tablet, 300 mg PO DAILY 08/01/22 12/10/24 History extended release empagliflozin 25 mg tablet 25 mg PO DAILY 08/01/22 12/10/24 History (Jardiance) insulin aspart U-100 100 unit/mL 60 unit subcut BIDM 08/01/22 12/10/24 History (3 mL) subcutaneous pen (Novolog FlexPen U-100 Insulin aspart) ascorbic acid (vitamin C) 500 mg 500 mg PO DAILY 09/21/22 12/10/24 History tablet (Vitamin C) multivitamin with minerals 1 tab PO DAILY 09/21/22 12/10/24 History (Multiple Vitamin-Minerals tablet) lisinopril 20 mg tablet 20 mg PO QAM 10/10/23 12/10/24 History sertraline 100 mg tablet 100 mg PO QAM 10/10/23 12/10/24 History insulin glargine U-300 conc 300 100 unit subcut BID 10/14/23 12/10/24 History unit/mL (3 mL) subcutaneous pen (Toujeo Max U-300 SoloStar) tamsulosin 0.4 mg capsule 0.4 mg PO DAILY 10/14/23 12/10/24 History spironolactone 25 mg tablet 25 mg PO DAILY 05/09/24 12/10/24 History cyanocobalamin (vitamin B-12) 1,000 mcg PO DAILY #30 caps 05/12/24 12/10/24 Rx 1,000 mcg capsule albuterol sulfate 90 mcg/actuation 90 mcg inhalation DAILY PRN 06/06/24 12/10/24 History aerosol inhaler Wheezing metformin 750 mg tablet,extended 1,500 mg PO DAILY 06/06/24 12/10/24 History release 24 hr fluticasone furoate 100 100 mcg inhalation DAILY 08/05/24 12/10/24 History mcg/actuation blister powder for inhalation (Arnuity Ellipta) furosemide 20 mg tablet (Lasix) 20 mg PO DAILY #30 tabs 12/13/24 Rx metoprolol succinate 50 mg 50 mg PO BID #60 tabs 12/13/24 Rx tablet,extended release 24 hr oseltamivir 75 mg capsule (Tamiflu) 75 mg PO BID #4 caps 12/13/24 Rx Hospital Stay Data Consultations 12/10/24 15:49 ED Decision to Admit Stat 12/12/24 08:52 Consult Cardiology Routine Diagnostic Imagining Performed Chest X-Ray 12/10/24 13:37 XR chest 1V portable HISTORY: 64 years-old Male Dyspnea COMPARISON: 08/05/2024 TECHNIQUE: AP view the chest FINDINGS: Cardiac silhouette is enlarged. Pulmonary vascular congestion. Trace pleural effusions with mild bibasilar opacities. Bones appear grossly intact. IMPRESSION: 1. Cardiomegaly with pulmonary vascular congestion. 2. Trace pleural effusions with mild bibasilar opacities, likely atelectatic. ACT 112: Negative or not required by law. The above report was generated using voice recognition software. It may contain grammatical, syntax or spelling errors. Electronically signed by: Juan Gonzalez M.D. 12/10/2024 2:01 PM Pending Results Patient Have Any Pending Studies at Discharge: No Discharge Instructions Given to Patient (Per Discharging Provider) Mr. Botello, Shad were admitted and treated for shortness of breath. It was related to a flu infection and also a possible congestive heart failure exacerbation. It is very important that you take your medications as prescribed. -Please continue with 2 more days of the tamiflu medication for your flu i nfection -It is unclear if you have been taking lasix at home. Please continue with 20mg daily of that along with your home spironolactone and follow up with your primary care provider for further management. - Please also continue taking your metoprolol succinate at home TWICE a day to keep your heart rate under control. We strongly advise that you discontinue your use of methamphetamines as that can also affect your heart. You also tested positive for Hepatitis C and will need followup as an outpatient for treatment. Your primary care provider can help with that and sending in referrals as needed to ensure it is treated. Again, please keep close follow up with your primary care provider as well as cardiology after discharge. Please do not hesitate to come back to the emergency room if your symptoms worsen or return. It was a pleasure taking care of you while you were here. Total Time Total Time Spent Total Time Spent (In Minutes): 60
[2024-12-13 14:54] VITALS: PULSE 78
--- NOTE | 2024-12-13 15:41 | Electrocardiogram Report ---
Test Reason : Blood Pressure : */* mmHG Vent. Rate : 87 BPM Atrial Rate : 87 BPM P-R Int : 186 ms QRS Dur : 88 ms QT Int : 366 ms P-R-T Axes : 49 55 38 degrees QTcB Int : 440 ms Sinus rhythm with Premature supraventricular complexes Otherwise normal ECG When compared with ECG of 11-Dec-2024 16:09, (unconfirmed) No significant change was found Confirmed by Rolando Linares ([id number]) on 12/13/2024 3:40:41 PM Referred By: REFERRED SELF Confirmed By: Rolando Linares
--- NOTE | 2024-12-13 15:41 | Electrocardiogram Report ---
Test Reason : Blood Pressure : */* mmHG Vent. Rate : 106 BPM Atrial Rate : 106 BPM P-R Int : 184 ms QRS Dur : 92 ms QT Int : 358 ms P-R-T Axes : 69 83 49 degrees QTcB Int : 475 ms Sinus tachycardia with Premature supraventricular complexes Minor T-wave inversion in Inferior leads Borderline ECG When compared with ECG of 10-Dec-2024 13:58, (unconfirmed) Inverted T waves have replaced nonspecific T wave abnormality in Inferior leads Confirmed by Rolando Linares ([id number]) on 12/13/2024 3:40:33 PM Referred By: REFERRED SELF Confirmed By: Rolando Linares
--- NOTE | 2024-12-13 15:44 | Electrocardiogram Report ---
Test Reason : Blood Pressure : */* mmHG Vent. Rate : 129 BPM Atrial Rate : * BPM P-R Int : * ms QRS Dur : 88 ms QT Int : 294 ms P-R-T Axes : * 77 -9 degrees QTcB Int : 430 ms Atrial fibrillation with rapid ventricular response Nonspecific ST abnormality Abnormal QRS-T angle, consider primary T wave abnormality Abnormal ECG When compared with ECG of 11-Dec-2024 16:09, (unconfirmed) Atrial fibrillation has replaced Sinus rhythm Confirmed by Rolando Linares ([id number]) on 12/13/2024 3:44:21 PM Referred By: REFERRED SELF Confirmed By: Rolando Linares
--- NOTE | 2024-12-13 16:56 | Electrocardiogram Report ---
Test Reason : Blood Pressure : */* mmHG Vent. Rate : 110 BPM Atrial Rate : 110 BPM P-R Int : 188 ms QRS Dur : 84 ms QT Int : 356 ms P-R-T Axes : 63 74 47 degrees QTcB Int : 481 ms Sinus tachycardia with Premature atrial complexes Otherwise normal ECG When compared with ECG of 11-Aug-2024 09:25, Premature atrial complexes are now Present Criteria for Septal infarct are no longer Present Confirmed by Rolando Linares ([id number]) on 12/13/2024 4:56:20 PM Referred By: Confirmed By: Rolando Linares
[2024-12-14 10:47] LABS: Hepatitis C Vira RNA (Log) PCR DNR Log IU/mL
== END 2024-12-13 15:10 | disposition home or self-care (01) | DRG 291 ==
LOC: ED 13:16 → SUATTDRO 16:47 → EDINP 16:47 → 2E 21:49

== ENCOUNTER 2024-12-15 12:16 | Inpatient (IN) ==
--- NOTE | 2024-12-15 12:48 | Emergency Department Note ---
Impression & Plan Sepsis, Hyperglycemia ED Provider Note Diagnosis: Hyperglycemia, sepsis Disposition: Admission CHIEF COMPLAINT: Shortness of breath headache HPI: Patient is a 64-year-old male discharged 2 days ago with influenza, CHF exacerbation, atrial fibrillation. Patient states that today he has had worsening shortness of breath. Patient states that the coughing has increased significantly. Patient denies fevers. Patient states he is having headache currently. Patient believes he may have fell earlier today. Patient denies pain in any other part of his body. Per prior records patient has history of substance abuse. PAST MEDICAL HISTORY: See Below PAST SURGICAL HISTORY: See Below SOCIAL HISTORY: See Below HOME MEDICATIONS: See Below ALLERGIES: See Below VITALS: See Below PHYSICAL EXAMINATION: GENERAL: Moderate distress EYE EXAM: Normal conjunctiva. OROPHARYNX: Moist mucus membranes. Grossly normal dentition. NECK: Supple, LUNGS: Wheezing bilaterally HEART: NSR ABDOMEN: Abdomen soft, non-tender, normo-active bowel sounds, no masses, no rebound or guarding BACK: No CVA TTP. SKIN: No rashes and no bruising. UPPER EXTREMITIES: Upper extremities are grossly normal LOWER EXTREMITIES: Grossly normal, no edema. NEURO EXAM: A&O x3,, normal speech, moves all 4 extremities PSYCH: Cooperative MEDICAL DECISION MAKING: Reviewed external documents: Discharge summary 12/13/2024 History obtained from: Patient ER Course: Patient is a 64-year-old male presenting with complaint of shortness of breath. Patient did not take any of his medications today. Patient found to be hyperglycemic with a blood sugar of over 700. Patient did not have elevated anion gap and pH was normal. Patient not in DKA. Patient given IV fluids as well as bolus of insulin. Patient has rhonchi on exam of the lungs. Patient given DuoNeb treatment. Patient covered with antibiotics due to presumed pneumonia. Patient's lactate is elevated. Patient's blood sugar after fluids and insulin came down to 500. Patient will be admitted to hospital service further treatment and evaluation Labs (independently interpreted) are significant for: Hyperglycemia without elevation of anion gap Imaging results (independently interpreted): Chest x-ray without obvious pneumonia EKG interpretation (independently interpreted): Normal sinus rhythm no ST segment elevation or depression Medications given: Normal saline bolus, regular insulin, Rocephin Zithromax Consultants: Hospitalist service Chronic conditions affecting care: Diabetes Triage Nursing notes reviewed and agree them. Vital Signs: reviewed and remarkable for: no significant abnormalities Critical care 35 minutes time does not include time for procedures Past Med/Surg History Problem List (Updated 12/15/24 @ 18:04 by Elizabeth Pérez PA-C) Hyperkalemia Shortness of breath Paroxysmal atrial tachycardia Paroxysmal atrial fibrillation Methamphetamine abuse PAC (premature atrial contraction) Sinus tachycardia Atrial fibrillation with RVR Hypoxia (Acute) Hyperglycemia (Acute) Influenza A (Acute) Diabetic peripheral neuropathy Diabetic neuropathic arthritis Abdominal wall cellulitis (Acute) Foot pain, left (Acute) Cellulitis of finger, right (Acute) Hyperglycemia (Acute) Burn of abdominal wall (Acute) Unable to care for self (Acute) Generalized muscle weakness (Acute) Ambulatory dysfunction (Acute) Noncompliance w/medication treatment due to intermit use of medication BPH (benign prostatic hyperplasia) Anxiety and depression Bronchitis Uncontrolled type 2 diabetes mellitus with hyperglycemia (Acute) Ambulatory dysfunction (Acute) Generalized weakness (Acute) Acute hyperglycemia (Acute) Morbid obesity with BMI of 40.0-44.9, adult Acute hyperglycemia (Acute) ALEJANDRA (obstructive sleep apnea) Hyperglycemia Nonischemic cardiomyopathy (Chronic) "prior EF 30% per Epic records. echo 02/2015- EF 40-45%" DM type 2 (diabetes mellitus, type 2) (Chronic) H/O TB (tuberculosis) (Chronic) H/O toxoplasmosis (Chronic) Hepatitis C (Chronic) Hypertension (Chronic) Colon polyp (Chronic) "TVA polyp on colonoscopy 09/2014" H/O colonoscopy (Chronic) "11/2015- diverticulosis" S/P cardiac cath (Chronic) "for abnormal stress test. cath 03/18/2015-essentially normal coronaries with no obstructive disease " Colon polyp Confusion (Acute) Hyperglycemia due to type 2 diabetes mellitus (Acute) DVT prophylaxis Polyneuropathy Peripheral vascular disease Depression Bilateral cellulitis of lower leg (Acute) Fatigue (Acute) Encephalopathy Hypercapnic respiratory failure Varicose veins of bilateral lower extremities with other complications Morbid obesity H/O drug abuse Medical History Peripheral neuropathy Shortness of breath Acute dehydration Accidental fall tripped over dog bed, hit back of head, checked in the ED poss concussion Dysequilibrium Hepatitis C Diabetes mellitus, type 2 Depression Anxiety Hypertension Surgical History History of colonoscopy History of umbilical hernia repair x2 History of tooth extraction History of wisdom tooth extraction History of cardiac cath 03/2015 @ [facility], no stents follows with Dr. Monet Family History Mother Family history of diabetes mellitus Father Family history of diabetes mellitus Other No family history of adverse response to anesthesia Social History Smoking Status: Unknown if ever smoked Tobacco Type: Cigarettes Cigarettes Per Day: Says he occasionally will smoke a cigar.; Second Hand Exposure: No; Do You Dip or Chew Tobacco: No; Hx Alcohol Use: Yes Alcohol type: beer and hard liquor Hx Substance Use: Yes Non-Prescribed Medications: Methamphetamines Last Used Substance: Unknown Last Used Substance Other:: few weeks ago Preferred Language: Nigerian Communication Ability: Effective Framing Specialist Required: No Beliefs That Will Affect Care: None marital status: Single Current Living Situation: Alone Current Living Situation Comment: lives alone Feels Safe at Home: Yes Gender Identity: Male Assistive Devices: Walker Allergies Allergies Allergy/AdvReac Type Severity Reaction Status Date / Time shellfish derived Allergy Severe Swelling Verified 12/15/24 16:12 amoxicillin Allergy Intermediate HIVES Verified 12/15/24 16:12 clavulanic acid Allergy Intermediate HIVES Verified 12/15/24 16:12 permethrin Allergy Intermediate swelling Verified 12/15/24 16:12 shrimp Allergy Intermediate SWELLS Verified 12/15/24 16:12 sulfamethoxazole Allergy Unknown CAN'T Verified 12/15/24 16:12 [From Bactrim] REMEMBER trimethoprim [From Bactrim] Allergy Unknown CAN'T Verified 12/15/24 16:12 REMEMBER insulin glargine AdvReac Severe CHF Verified 12/15/24 16:12 [From Lantus U-100 Insulin] Home Meds Home Medications Medication Instructions Recorded Confirmed aspirin 81 mg tablet,delayed 81 mg PO DAILY 08/01/22 12/15/24 release empagliflozin 25 mg tablet 25 mg PO DAILY 08/01/22 12/15/24 (Jardiance) ascorbic acid (vitamin C) 500 mg 500 mg PO DAILY 09/21/22 12/15/24 tablet (Vitamin C) multivitamin with minerals 1 tab PO DAILY 09/21/22 12/15/24 (Multiple Vitamin-Minerals tablet) lisinopril 20 mg tablet 20 mg PO QAM 10/10/23 12/15/24 sertraline 100 mg tablet 100 mg PO QAM 10/10/23 12/15/24 insulin glargine U-300 conc 300 100 unit subcut BID 10/14/23 12/15/24 unit/mL (3 mL) subcutaneous pen (Toujeo Max U-300 SoloStar) albuterol sulfate 90 mcg/actuation 90 mcg inhalation DAILY PRN 06/06/24 12/15/24 aerosol inhaler Wheezing metformin 750 mg tablet,extended 1,500 mg PO DAILY 06/06/24 12/15/24 release 24 hr fluticasone furoate 100 100 mcg inhalation DAILY 08/05/24 12/15/24 mcg/actuation blister powder for inhalation (Arnuity Ellipta) insulin aspart U-100 100 unit/mL 60 unit subcut BIDWMEAL 12/15/24 12/15/24 (3 mL) subcutaneous pen Previous Rx's Medication Instructions Recorded cyanocobalamin (vitamin B-12) 1,000 mcg PO DAILY #30 caps 05/12/24 1,000 mcg capsule furosemide 20 mg tablet (Lasix) 20 mg PO DAILY #30 tabs 12/13/24 metoprolol succinate 50 mg 50 mg PO BID #60 tabs 12/13/24 tablet,extended release 24 hr oseltamivir 75 mg capsule (Tamiflu) 75 mg PO BID #4 caps 12/13/24 Results & Data (ED) Vital Signs Vital Signs - 24 hr 12/15/24 12:26 12/15/24 13:03 12/15/24 13:04 Temperature 36.5 C Temperature Source Oral Pulse Rate 84 85 84 Pulse Rate [Apical] Pulse Rate from SpO2 Sensor 85 Respiratory Rate 22 31 H Respiratory Effort / Characteristics Non-Labored Spontaneous Respiratory Depth Normal Respiratory Pattern Regular Blood Pressure 149/72 H Blood Pressure [Left Arm] Blood Pressure Mean 97 Blood Pressure Mean [Left Arm] Blood Pressure Position [Left Arm] Pulse Oximetry 97 91 Oxygen Delivery Method Room Air Sepsis Recent Fever Within 48 Hours No Sepsis New/Unexplained Change in Mental Status No Sepsis Action Taken by Nursing No Action Required 12/15/24 13:06 12/15/24 13:16 12/15/24 13:16 Temperature Temperature Source Pulse Rate 83 Pulse Rate [Apical] Pulse Rate from SpO2 Sensor Respiratory Rate 24 Respiratory Effort / Characteristics Respiratory Depth Respiratory Pattern Blood Pressure 141/95 H 141/95 H Blood Pressure [Left Arm] Blood Pressure Mean 106 106 Blood Pressure Mean [Left Arm] Blood Pressure Position [Left Arm] Pulse Oximetry Oxygen Delivery Method Sepsis Recent Fever Within 48 Hours Sepsis New/Unexplained Change in Mental Status Sepsis Action Taken by Nursing 12/15/24 13:27 12/15/24 13:48 12/15/24 13:51 Temperature Temperature Source Pulse Rate 83 85 Pulse Rate [Apical] Pulse Rate from SpO2 Sensor 82 81 Respiratory Rate 25 H 16 Respiratory Effort / Characteristics Respiratory Depth Respiratory Pattern Blood Pressure 145/85 H Blood Pressure [Left Arm] Blood Pressure Mean 111 Blood Pressure Mean [Left Arm] Blood Pressure Position [Left Arm] Pulse Oximetry 94 85 L Oxygen Delivery Method Sepsis Recent Fever Within 48 Hours Sepsis New/Unexplained Change in Mental Status Sepsis Action Taken by Nursing 12/15/24 13:52 12/15/24 13:52 12/15/24 13:52 Temperature Temperature Source Pulse Rate Pulse Rate [Apical] Pulse Rate from SpO2 Sensor Respiratory Rate Respiratory Effort / Characteristics Non-Labored Respiratory Depth Respiratory Pattern Blood Pressure Blood Pressure [Left Arm] Blood Pressure Mean Blood Pressure Mean [Left Arm] Blood Pressure Position [Left Arm] Pulse Oximetry 93 Oxygen Delivery Method Room Air Sepsis Recent Fever Within 48 Hours Sepsis New/Unexplained Change in Mental Status Sepsis Action Taken by Nursing 12/15/24 13:54 12/15/24 14:00 12/15/24 14:00 Temperature Temperature Source Pulse Rate Pulse Rate [Apical] 86 Pulse Rate from SpO2 Sensor Respiratory Rate 18 Respiratory Effort / Characteristics Respiratory Depth Respiratory Pattern Blood Pressure 152/93 H 152/93 H Blood Pressure [Left Arm] Blood Pressure Mean 105 105 Blood Pressure Mean [Left Arm] Blood Pressure Position [Left Arm] Pulse Oximetry 92 Oxygen Delivery Method Sepsis Recent Fever Within 48 Hours Sepsis New/Unexplained Change in Mental Status Sepsis Action Taken by Nursing 12/15/24 14:00 12/15/24 14:12 12/15/24 14:21 Temperature Temperature Source Pulse Rate 87 82 88 Pulse Rate [Apical] Pulse Rate from SpO2 Sensor 83 88 Respiratory Rate 29 H 18 19 Respiratory Effort / Characteristics Respiratory Depth Respiratory Pattern Blood Pressure Blood Pressure [Left Arm] Blood Pressure Mean Blood Pressure Mean [Left Arm] Blood Pressure Position [Left Arm] Pulse Oximetry 97 91 Oxygen Delivery Method Sepsis Recent Fever Within 48 Hours Sepsis New/Unexplained Change in Mental Status Sepsis Action Taken by Nursing 12/15/24 14:33 12/15/24 14:45 12/15/24 14:51 Temperature Temperature Source Pulse Rate 87 90 92 H Pulse Rate [Apical] Pulse Rate from SpO2 Sensor 87 91 H 85 Respiratory Rate 27 H 23 21 Respiratory Effort / Characteristics Respiratory Depth Respiratory Pattern Blood Pressure 147/82 H Blood Pressure [Left Arm] Blood Pressure Mean 103 Blood Pressure Mean [Left Arm] Blood Pressure Position [Left Arm] Pulse Oximetry 90 92 88 L Oxygen Delivery Method Sepsis Recent Fever Within 48 Hours Sepsis New/Unexplained Change in Mental Status Sepsis Action Taken by Nursing 12/15/24 15:00 12/15/24 15:10 12/15/24 16:00 Temperature 37.1 C Temperature Source Oral Pulse Rate Pulse Rate [Apical] 93 H 94 H Pulse Rate from SpO2 Sensor Respiratory Rate 20 18 Respiratory Effort / Characteristics Non-Labored Spontaneous Non-Labored Spontaneous Respiratory Depth Normal Normal Respiratory Pattern Regular Regular Blood Pressure Blood Pressure [Left Arm] 157/82 H 147/82 H 152/82 H Blood Pressure Mean Blood Pressure Mean [Left Arm] 107 103 105 Blood Pressure Position [Left Arm] Lying Pulse Oximetry 92 95 Oxygen Delivery Method Room Air Room Air Sepsis Recent Fever Within 48 Hours Sepsis New/Unexplained Change in Mental Status Sepsis Action Taken by Nursing 12/15/24 16:58 12/15/24 17:00 Temperature Temperature Source Pulse Rate 87 Pulse Rate [Apical] 87 Pulse Rate from SpO2 Sensor Respiratory Rate 20 Respiratory Effort / Characteristics Respiratory Depth Respiratory Pattern Blood Pressure Blood Pressure [Left Arm] 121/96 Blood Pressure Mean Blood Pressure Mean [Left Arm] 104 Blood Pressure Position [Left Arm] Semi-fowlers Pulse Oximetry 92 Oxygen Delivery Method Room Air Sepsis Recent Fever Within 48 Hours Sepsis New/Unexplained Change in Mental Status Sepsis Action Taken by Nursing Laboratory Data 12/15/24 13:45 12/15/24 13:45 Lab Results 12/15/24 12/15/24 12/15/24 Range/Units 13:45 14:19 14:54 WBC 14.99 H (4.8-10.8) K/ul RBC 6.19 H (4.70-6.10) M/uL Hgb 17.9 (14.0-18.0) g/dl Hct 53.0 H (42.0-52.0) % MCV 85.6 (80.0-100.0) fL MCH 28.9 (25.0-34.0) pg MCHC 33.8 (32.0-36.0) g/dL RDW Std Deviation 38.8 (36.4-46.3) fL RDW Coeff of Marc 12.5 (11.5-14.5) % Plt Count 234 (130-400) K/uL MPV 10.5 (9.4-12.4) fL Immature Gran % (Auto) 0.7 % Neut % (Auto) 76.3 % Lymph % (Auto) 15.1 % Webster % (Auto) 7.0 % Eos % (Auto) 0.4 % Baso % (Auto) 0.5 % Neut # (Auto) 11.45 H (1.40-6.50) K/uL Lymph # (Auto) 2.26 (1.20-3.40) K/uL Webster # (Auto) 1.05 H (0.11-0.59) K/uL Eos # (Auto) 0.06 (0.00-0.50) K/uL Baso # (Auto) 0.07 (0.00-0.20) K/uL Immature Gran # (Auto) 0.10 (0.01-0.20) K/uL VBG pH 7.39 (7.36-7.41) VBG pCO2 47 (38-50) mmHg VBG pO2 47 mmHg VBG HCO3 29 mmol/L VBG O2 Saturation 76.8 % VBG Base Excess 2.8 mEq/L Sodium 125 L (136-145) mmol/L Potassium 5.9 H (3.5-5.1) mmol/L Chloride 87 L (98-107) mmol/L Carbon Dioxide 30 (21-32) mmol/L Anion Gap 8 (3-11) BUN 39 H (6-23) mg/dl Creatinine 1.11 (0.6-1.4) mg/dl Est Cr Clr Drug Dosing eGFR 75.08 BUN/Creatinine Ratio 35.1 H (10-20) Glucose 757 H* (70-99(Fasting)) mg/dl POC Glucose (70-99) mg/dl Lactate 3.5 H* (0.4-2.0) mmol/L Calcium 9.6 (8.6-10.3) mg/dl Total Bilirubin 0.8 (0.2-1.0) mg/dl AST 21 (13-39) U/L ALT 28 (7-52) U/L Alkaline Phosphatase 101 (34-104) U/L Troponin I High Sens 9.8 (0-20) pg/ml B-Natriuretic Peptide 47 (0-100) pg/ml Total Protein 6.9 (6.0-8.3) gm/dl Albumin 3.5 (3.4-5.0) gm/dl Globulin 3.4 (2.5-4.0) gm/dl Albumin/Globulin Ratio 1.0 (0.9-2) Procalcitonin (0-0.5) ng/ml Urine Opiates Screen (Neg) Ur Methadone, Qual (Neg) Urine Fentanyl Screen (Neg) Urine Barbiturates (Neg) Ur Phencyclidine (PCP) (Neg) U Amphetamin/Meth Scrn (Neg) MDMA (Ecstasy) Screen (Neg) U Benzodiazepines Scrn (Neg) Ur Cocaine Metabolite (Neg) U Marijuana (THC) Screen (Neg) Ethyl Alcohol mg/dL < 10.0 (<10.0) mg/dl Adenovirus (PCR) (NotDetected) B. pertussis DNA (PCR) (NotDetected) B.parapertussis DNA PCR (NotDetected) C. pneumoniae DNA (PCR) (NotDetected) Coronavirus OC43 (PCR) (NotDetected) Coronavirus HKU1 (PCR) (NotDetected) Coronavirus 229E (PCR) (NotDetected) SARS-CoV-2 (PCR) (NotDetected) Coronavirus NL63 (PCR) (NotDetected) Human Metapneumovir PCR (NotDetected) Influenza Type A (PCR) (NotDetected) Influenza Type B (PCR) (NotDetected) M. pneumoniae (PCR) (NotDetected) Parainfluenza 1 (PCR) (NotDetected) Parainfluenza 2 (PCR) (NotDetected) Parainfluenza 3 (PCR) (NotDetected) Parainfluenza 4 (PCR) (NotDetected) RSV (PCR) (NotDetected) Entero/Rhino (PCR) (NotDetected) 12/15/24 12/15/24 12/15/24 Range/Units 15:06 15:51 15:56 WBC (4.8-10.8) K/ul RBC (4.70-6.10) M/uL Hgb (14.0-18.0) g/dl Hct (42.0-52.0) % MCV (80.0-100.0) fL MCH (25.0-34.0) pg MCHC (32.0-36.0) g/dL RDW Std Deviation (36.4-46.3) fL RDW Coeff of Marc (11.5-14.5) % Plt Count (130-400) K/uL MPV (9.4-12.4) fL Immature Gran % (Auto) % Neut % (Auto) % Lymph % (Auto) % Webster % (Auto) % Eos % (Auto) % Baso % (Auto) % Neut # (Auto) (1.40-6.50) K/uL Lymph # (Auto) (1.20-3.40) K/uL Webster # (Auto) (0.11-0.59) K/uL Eos # (Auto) (0.00-0.50) K/uL Baso # (Auto) (0.00-0.20) K/uL Immature Gran # (Auto) (0.01-0.20) K/uL VBG pH (7.36-7.41) VBG pCO2 (38-50) mmHg VBG pO2 mmHg VBG HCO3 mmol/L VBG O2 Saturation % VBG Base Excess mEq/L Sodium (136-145) mmol/L Potassium (3.5-5.1) mmol/L Chloride (98-107) mmol/L Carbon Dioxide (21-32) mmol/L Anion Gap (3-11) BUN (6-23) mg/dl Creatinine (0.6-1.4) mg/dl Est Cr Clr Drug Dosing eGFR BUN/Creatinine Ratio (10-20) Glucose (70-99(Fasting)) mg/dl POC Glucose > 600 H* 520 H* (70-99) mg/dl Lactate (0.4-2.0) mmol/L Calcium (8.6-10.3) mg/dl Total Bilirubin (0.2-1.0) mg/dl AST (13-39) U/L ALT (7-52) U/L Alkaline Phosphatase (34-104) U/L Troponin I High Sens (0-20) pg/ml B-Natriuretic Peptide (0-100) pg/ml Total Protein (6.0-8.3) gm/dl Albumin (3.4-5.0) gm/dl Globulin (2.5-4.0) gm/dl Albumin/Globulin Ratio (0.9-2) Procalcitonin (0-0.5) ng/ml Urine Opiates Screen Neg (Neg) Ur Methadone, Qual Neg (Neg) Urine Fentanyl Screen Neg (Neg) Urine Barbiturates Neg (Neg) Ur Phencyclidine (PCP) Neg (Neg) U Amphetamin/Meth Scrn Neg (Neg) MDMA (Ecstasy) Screen Neg (Neg) U Benzodiazepines Scrn Neg (Neg) Ur Cocaine Metabolite Neg (Neg) U Marijuana (THC) Screen Neg (Neg) Ethyl Alcohol mg/dL (<10.0) mg/dl Adenovirus (PCR) (NotDetected) B. pertussis DNA (PCR) (NotDetected) B.parapertussis DNA PCR (NotDetected) C. pneumoniae DNA (PCR) (NotDetected) Coronavirus OC43 (PCR) (NotDetected) Coronavirus HKU1 (PCR) (NotDetected) Coronavirus 229E (PCR) (NotDetected) SARS-CoV-2 (PCR) (NotDetected) Coronavirus NL63 (PCR) (NotDetected) Human Metapneumovir PCR (NotDetected) Influenza Type A (PCR) (NotDetected) Influenza Type B (PCR) (NotDetected) M. pneumoniae (PCR) (NotDetected) Parainfluenza 1 (PCR) (NotDetected) Parainfluenza 2 (PCR) (NotDetected) Parainfluenza 3 (PCR) (NotDetected) Parainfluenza 4 (PCR) (NotDetected) RSV (PCR) (NotDetected) Entero/Rhino (PCR) (NotDetected) 12/15/24 12/15/2425 Range/Units 16:06 17:25 Unknown WBC (4.8-10.8) K/ul RBC (4.70-6.10) M/uL Hgb (14.0-18.0) g/dl Hct (42.0-52.0) % MCV (80.0-100.0) fL MCH (25.0-34.0) pg MCHC (32.0-36.0) g/dL RDW Std Deviation (36.4-46.3) fL RDW Coeff of Marc (11.5-14.5) % Plt Count (130-400) K/uL MPV (9.4-12.4) fL Immature Gran % (Auto) % Neut % (Auto) % Lymph % (Auto) % Webster % (Auto) % Eos % (Auto) % Baso % (Auto) % Neut # (Auto) (1.40-6.50) K/uL Lymph # (Auto) (1.20-3.40) K/uL Webster # (Auto) (0.11-0.59) K/uL Eos # (Auto) (0.00-0.50) K/uL Baso # (Auto) (0.00-0.20) K/uL Immature Gran # (Auto) (0.01-0.20) K/uL VBG pH (7.36-7.41) VBG pCO2 (38-50) mmHg VBG pO2 mmHg VBG HCO3 mmol/L VBG O2 Saturation % VBG Base Excess mEq/L Sodium (136-145) mmol/L Potassium (3.5-5.1) mmol/L Chloride (98-107) mmol/L Carbon Dioxide (21-32) mmol/L Anion Gap (3-11) BUN (6-23) mg/dl Creatinine (0.6-1.4) mg/dl Est Cr Clr Drug Dosing Not Reportable eGFR BUN/Creatinine Ratio (10-20) Glucose (70-99(Fasting)) mg/dl POC Glucose 501 H* (70-99) mg/dl Lactate 3.1 H* (0.4-2.0) mmol/L Calcium (8.6-10.3) mg/dl Total Bilirubin (0.2-1.0) mg/dl AST (13-39) U/L ALT (7-52) U/L Alkaline Phosphatase (34-104) U/L Troponin I High Sens (0-20) pg/ml B-Natriuretic Peptide (0-100) pg/ml Total Protein (6.0-8.3) gm/dl Albumin (3.4-5.0) gm/dl Globulin (2.5-4.0) gm/dl Albumin/Globulin Ratio (0.9-2) Procalcitonin 0.05 (0-0.5) ng/ml Urine Opiates Screen (Neg) Ur Methadone, Qual (Neg) Urine Fentanyl Screen (Neg) Urine Barbiturates (Neg) Ur Phencyclidine (PCP) (Neg) U Amphetamin/Meth Scrn (Neg) MDMA (Ecstasy) Screen (Neg) U Benzodiazepines Scrn (Neg) Ur Cocaine Metabolite (Neg) U Marijuana (THC) Screen (Neg) Ethyl Alcohol mg/dL (<10.0) mg/dl Adenovirus (PCR) Not Detected (NotDetected) B. pertussis DNA (PCR) Not Detected (NotDetected) B.parapertussis DNA PCR Not Detected (NotDetected) C. pneumoniae DNA (PCR) Not Detected (NotDetected) Coronavirus OC43 (PCR) Not Detected (NotDetected) Coronavirus HKU1 (PCR) Not Detected (NotDetected) Coronavirus 229E (PCR) Not Detected (NotDetected) SARS-CoV-2 (PCR) Not Detected (NotDetected) Coronavirus NL63 (PCR) Not Detected (NotDetected) Human Metapneumovir PCR Not Detected (NotDetected) Influenza Type A (PCR) Not Detected (NotDetected) Influenza Type B (PCR) Not Detected (NotDetected) M. pneumoniae (PCR) Not Detected (NotDetected) Parainfluenza 1 (PCR) Not Detected (NotDetected) Parainfluenza 2 (PCR) Not Detected (NotDetected) Parainfluenza 3 (PCR) Not Detected (NotDetected) Parainfluenza 4 (PCR) Not Detected (NotDetected) RSV (PCR) Not Detected (NotDetected) Entero/Rhino (PCR) Not Detected (NotDetected) Administered Medications Discontinued Medications Albuterol (Albut/Ipratrop 3mg/0.5mg Neb 3 Ml Vial) 3 ml INH NOW STA Stop: 12/15/24 12:43 Last Admin: 12/15/24 14:03 Dose: 3 ml Documented By: KAYELE Azithromycin (Azithromycin 250 Mg Tab) 500 mg PO NOW ONE Stop: 12/15/24 16:16 Last Admin: 12/15/24 16:22 Dose: 500 mg Documented By: BOLIVAR Sodium Chloride (Nss) 1,000 mls @ 999 mls/hr IV .Q1H1M ONE Stop: 12/15/24 15:31 Last Infusion: 12/15/24 15:53 Dose: Infused Documented By: Admin: 12/15/24 14:38 Dose: 999 mls/hr Documented By: KAYLEE Ceftriaxone Sodium (Rocephin) 2,000 mg in 50 mls @ 100 mls/hr IV NOW STA Stop: 12/15/24 16:44 Last Infusion: 12/15/24 17:01 Dose: Infused Documented By: Admin: 12/15/24 16:22 Dose: 100 mls/hr Documented By: BOLIVAR Sodium Chloride (Nss) 1,000 mls @ 999 mls/hr IV .Q1H1M ONE Stop: 12/15/24 17:16 Last Infusion: 12/15/24 18:04 Dose: Infused Documented By: Admin: 12/15/24 16:27 Dose: 999 mls/hr Documented By: BOLIVAR Insulin Human Regular (Novolin-R Insulin Per Unit Charge) 10 units IV NOW STA Stop: 12/15/24 14:35 Last Admin: 12/15/24 14:38 Dose: 10 units Documented By: KAYLEE Co-signed By: KENNETH Ioversol (Optiray 320 125ml) 115 ml IV ONCE ONE Stop: 12/15/24 18:11 Last Admin: 12/15/24 18:11 Dose: 115 ml Documented By: SOPHIA Imaging Data Radiologist's Impression: Chest X-Ray 12/15/24 12:42 XR chest 1V portable CLINICAL HISTORY: Dyspnea COMPARISON STUDY: 12/10/2024 FINDINGS: Heart size and pulmonary vasculature are normal. No effusion, consolidation, or pneumothorax. IMPRESSION: No acute findings. ACT 112: Negative or not required by law. Electronically signed by: Ajay Swartz M.D. 12/15/2024 1:[address] 12/15/24 12:43 CT OF THE HEAD WITHOUT CONTRAST CLINICAL HISTORY: fall, headache COMPARISON STUDY: Head CT May 09, 2024. CT DOSE: 625.8 mGy.cm TECHNIQUE: Helical axial images of the head were obtained without IV contrast. Automated exposure control was utilized for the study. A dose lowering technique was utilized adhering to the principles of ALARA. FINDINGS: No acute intracranial hemorrhage, midline shift or mass effect is present. Ventricular system is stable. The basal cisterns are patent. There are no extra-axial collections. Right temporal lobe encephalomalacia is again noted. There are no findings to suggest acute dural sinus thrombosis or acute territorial infarct. Stable postoperative findings following left-sided craniotomy. There are no calvarial fractures. There is moderate mucosal thickening with air-fluid levels within the maxillary sinuses. There is mild mucosal thickening within the sphenoid sinuses. Sinus opacification is new when compared to prior CT. There are also secretions within the maxillary sinuses. IMPRESSION: 1. No acute intracranial findings. No change in appearance of the brain. 2. Bilateral maxillary and sphenoid sinus mucosal thickening with air-fluid level and secretions. The findings may represent acute sinusitis. ACT 112: Negative or not required by law. Electronically signed by: Gualberto Buitrago M.D. 12/15/2024 2:00 PM Discharge Plan Visit Data Chief Complaint: Shortness of Breath/Dyspnea Stated Complaint: SOB, NOT FEELING WELL ED Provider: Dion Lozano Discharge Problem: Sepsis, Hyperglycemia Forms Stand Alone Forms: My [facility] [id number] Prescriptions Prescriptions: No Action aspirin 81 mg Tablet,Delayed Release (Dr/Ec) 81 mg PO DAILY Rx Instructions: Pt couldn't confirm nor deny at this date/time. Jardiance 25 mg tablet 25 mg PO DAILY Rx Instructions: Last filled 07/2024 x90 day supply ascorbic acid (vitamin C) [Vitamin C] 500 mg Tablet 500 mg PO DAILY Rx Instructions: Pt couldn't confirm nor deny at this date/time. Multiple Vitamin-Minerals Tablet 1 tab PO DAILY Rx Instructions: Pt couldn't confirm nor deny at this date/time. insulin glargine U-300 conc [Toujeo Max U-300 SoloStar] 300 unit/mL (3 mL) insulin pen 100 unit SUBCUT BID Rx Instructions: Pt states still taking, last filled 07/2024 x90 day supply lisinopril 20 mg tablet 20 mg PO QAM sertraline 100 mg tablet 100 mg PO QAM cyanocobalamin (vitamin B-12) 1,000 mcg capsule 1,000 mcg PO DAILY Qty: 30 0RF Rx Instructions: Pt couldn't confirm nor deny at this date/time. albuterol sulfate 90 mcg/actuation HFA aerosol inhaler 90 mcg INHALATION DAILY PRN (Reason: Wheezing) metformin 750 mg tablet extended release 24 hr 1,500 mg PO DAILY Rx Instructions: Last filled 07/2024 x90 day supply oseltamivir [Tamiflu] 75 mg Capsule 75 mg PO BID Qty: 4 0RF Rx Instructions: Start Date 12/14/23 x2 day supply metoprolol succinate 50 mg Tablet Extended Release 24 Hr 50 mg PO BID Qty: 60 0RF furosemide [Lasix] 20 mg tablet 20 mg PO DAILY Qty: 30 0RF Arnuity Ellipta 100 mcg/actuation blister with device 100 mcg INHALATION DAILY insulin aspart U-100 100 unit/mL (3 mL) insulin pen 60 unit SUBCUT BIDWMEAL Referrals Referrals: Willam Fofana, [Primary Care Provider] -
--- NOTE | 2024-12-15 13:54 | XRay Report ---
XR chest 1V portable CLINICAL HISTORY: Dyspnea COMPARISON STUDY: 12/10/2024 FINDINGS: Heart size and pulmonary vasculature are normal. No effusion, consolidation, or pneumothora x. IMPRESSION: No acute findings. ACT 112: Negative or not required by law. Electronically signed by: Ajay Swartz M.D. 12/15/2024 1:52 PM
--- NOTE | 2024-12-15 14:01 | CT Scan Report ---
CT OF THE HEAD WITHOUT CONTRAST CLINICAL HISTORY: fall, headache COMPARISON STUDY: Head CT May 09, 2024. CT DOSE: 625.8 mGy.cm TECHNIQUE: Helical axial images of the head were obtained without IV contrast. Automated exposure con trol was utilized for the study. A dose lowering technique was utilized adhering to the principles o f ALARA. FINDINGS: No acute intracranial hemorrhage, midline shift or mass effect is present. Ventricular syst em is stable. The basal cisterns are patent. There are no extra-axial collections. Right temporal lob e encephalomalacia is again noted. There are no findings to suggest acute dural sinus thrombosis or a cute territorial infarct. Stable postoperative findings following left-sided craniotomy. There are no calvarial fractures. There is moderate mucosal thickening with air-fluid levels within the maxillary sinuses. There is mild mucosal thickening within the sphenoid sinuses. Sinus opacification is new wh en compared to prior CT. There are also secretions within the maxillary sinuses. IMPRESSION: 1. No acute intracranial findings. No change in appearance of the brain. 2. Bilateral maxillary and sphenoid sinus mucosal thickening with air-fluid level and secretions. The findings may represent acute sinusitis. ACT 112: Negative or not required by law. Electronically signed by: Gualberto Buitrago M.D. 12/15/2024 2:00 PM
[2024-12-15] MEDS: ALBUT/IPRATROP 3MG/0.5MG NEB 3 ML VIAL INH STA (14:03)
[2024-12-15 14:04] LABS: Basophils # (auto) 0.07 K/uL (0.00-0.20); Basophils % (auto) 0.5 %; Eosinophils # (auto) 0.06 K/uL (0.00-0.50); Eosinophils % (auto) 0.4 %; Hemoglobin 17.9 g/dl (14.0-18.0); Immature Granulocytes % (auto) 0.7 %; Lymphocytes # (auto) 2.26 K/uL (1.20-3.40); Lymphocytes % (auto) 15.1 %; Mean Corpuscular Hemoglobin 28.9 pg (25.0-34.0); Mean Corpuscular Hgb Conc 33.8 g/dL (32.0-36.0); Mean Corpuscular Volume 85.6 fL (80.0-100.0); Mean Platelet Volume 10.5 fL (9.4-12.4); Monocytes # (auto) 1.05 K/uL (0.11-0.59); Neutrophils # (auto) 11.45 K/uL (1.40-6.50); Neutrophils % (auto) 76.3 %; Platelet Count 234 K/uL (130-400); RDW Coefficient of Variation 12.5 % (11.5-14.5); RDW Standard Deviation 38.8 fL (36.4-46.3); Red Blood Count 6.19 M/uL (4.70-6.10); White Blood Count 14.99 K/ul (4.8-10.8)
[2024-12-15 14:26] LABS: Troponin I High Sensitivity 9.8 pg/ml (0-20)
[2024-12-15 14:27] LABS: Alanine Aminotransferase 28 U/L (7-52); Albumin Level 3.5 gm/dl (3.4-5.0); Alkaline Phosphatase 101 U/L (34-104); Anion Gap 8 (3-11); Aspartate Aminotransferase 21 U/L (13-39); BUN Creatinine Ratio 35.1 (10-20); Bilirubin,Total 0.8 mg/dl (0.2-1.0); Blood Urea Nitrogen 39 mg/dl (6-23); Calcium 9.6 mg/dl (8.6-10.3); Carbon Dioxide 30 mmol/L (21-32); Chloride 87 mmol/L (98-107); Globulin 3.4 gm/dl (2.5-4.0); Potassium 5.9 mmol/L (3.5-5.1); Sodium 125 mmol/L (136-145); Total Protein 6.9 gm/dl (6.0-8.3)
[2024-12-15 14:28] LABS: Glucose 757 mg/dl (70-99(Fasting))
[2024-12-15] MEDS: NovoLIN-R INSULIN PER UNIT CHARGE IV STA (14:38)
[2024-12-15] MEDS: SODIUM CHLORIDE 0.9% 1,000 ML IV ONE ×2 (14:38→16:27)
[2024-12-15 14:57] LABS: Adenovirus PCR Not Detected (NotDetected); Bordetella parapertussis PCR Not Detected (NotDetected); Bordetella pertussis PCR Not Detected (NotDetected); Chlamydia pneumoniae PCR Not Detected (NotDetected); Coronavirus 229E PCR Not Detected (NotDetected); Coronavirus CoV-2 (COVID19)PCR Not Detected (NotDetected); Coronavirus HKU1 PCR Not Detected (NotDetected); Coronavirus NL63 PCR Not Detected (NotDetected); Coronavirus OC43PCR Not Detected (NotDetected); Human Metapneumovirus PCR Not Detected (NotDetected); Influenza A PCR Not Detected (NotDetected); Influenza B PCR Not Detected (NotDetected); Mycoplasma pneumoniae PCR Not Detected (NotDetected); Parainfluenza Virus 1 PCR Not Detected (NotDetected); Parainfluenza Virus 2 PCR Not Detected (NotDetected); Parainfluenza Virus 3 PCR Not Detected (NotDetected); Parainfluenza Virus 4 PCR Not Detected (NotDetected); Respiratory Syncytial VirusPCR Not Detected (NotDetected); Rhinovirus/Enterovirus PCR Not Detected (NotDetected)
[2024-12-15 15:15] LABS: Base Excess VBG 2.8 mEq/L; HCO3 VBG 29 mmol/L; Oxygen Saturation VBG 76.8 %; PCO2 VBG 47 mmHg (38-50); PO2 VBG 47 mmHg; pH VBG 7.39 (7.36-7.41)
[2024-12-15] MEDS: cefTRIAXone SODIUM 2,000 MG/50 ML BAG IV STA (16:22)
[2024-12-15] MEDS: AZITHROMYCIN 250 MG TAB PO ONE (16:22)
--- NOTE | 2024-12-15 16:26 | Electrocardiogram Report ---
Test Reason : Blood Pressure : */* mmHG Vent. Rate : 85 BPM Atrial Rate : 85 BPM P-R Int : 180 ms QRS Dur : 86 ms QT Int : 362 ms P-R-T Axes : 71 85 57 degrees QTcB Int : 430 ms Normal sinus rhythm Normal ECG When compared with ECG of 12-Dec-2024 08:41, Sinus rhythm has replaced Atrial fibrillation Vent. rate has decreased by 44 bpm Confirmed by Jean Pierre Pedroza ([id number]) on 12/15/2024 4:26:36 PM Referred By: REFERRED SELF Confirmed By: Jean Pierre Pedroza
--- NOTE | 2024-12-15 16:42 | History & Physical Report ---
Date of Service December 15, 2024 Assessment & Plan (1) Uncontrolled type 2 diabetes mellitus with hyperglycemia: (2) Shortness of breath: (3) Noncompliance with medication regimen: (4) Hyperkalemia: (5) Paroxysmal atrial fibrillation: (6) Nonischemic cardiomyopathy: (7) Hypertension: (8) Depression: Plan: Patient is 64-year-old male with PMH nonischemic cardiomyopathy, HTN, PVD, CAD, DM II, history medication noncompliance, hepatitis C, history of heroin abuse, methamphetamine abuse, BPH, depression and others listed below presented to ER with complaint of SOB. Hospitalized 12/10/2024-12/13/2024 for influenza A, hypoxia, atrial fibrillation RVR and finished steroid in hospital and had 2 days of Tamiflu remaining to finish course. #SOB #Bronchitis #Recent Influenza A #Possible PNA In ER Afebrile, P: 84, R: 22, BP 149/72, 97% on room air WBC: 14.9. Negative Bio[employer] respiratory panel Lactate: 3.5--> 3.1 Procalcitonin: 0.05 Urinalysis pending Blood cultures ordered CXR: No acute findings CT head: No acute intracranial findings In ER given Rocephin, azithromycin, 2L NSS Obtain sputum culture Albuterol nebs, Mucinex, incentive spirometry, hypertonic saline nebs CTA chest pending to r/o PE, pneumonia Suspect underlying pneumonia and will cover with cefepime, azithromycin Supplemental oxygen as needed Give dose Tamiflu tonight to finish his course Trend lactate CBC in am #Hyperglycemia #Uncontrolled DM II #HHS #Medication noncompliance Random glucose: 757. Given 10 units Insulin R IV in ER with repeat glucose: 520 VBG: pH: 7.39. normal AG Patient has not been using his insulin at home for past 2 days Hold home oral agents Insulin drip Glycemic pharmacy consult A1c: 12.7 on 12/11/24 #Hyperkalemia K: 5.9 Repeat BMP pending #Pseudohyponatremia Sodium corrected to 136 for glucose of 757 #PAF Current sinus rhythm Continue metoprolol succinate #Nonischemic cardiomyopathy 12/12/24 echo: EF: 60-65%, grade 1 diastolic dysfunction, mild aortic valve sclerosis without stenosis Hold lasix and lisinopril and reassess tomorrow Continue aspirin, metoprolol succinate Previous admission was instructed for pt to continue spironolactone, however does not appear patient has not been on spironolactone for years. Will monitor for now. #HTN Hold lisinopril for now and reassess tomorrow #BPH Continue tamsulosin #Depression Continue sertraline, bupropion Pt reports chronic depression and "wishes would just and be done with all this". He denies suidical plan DVT Prophylaxis Lovenox SQ Admit PCU Full Code as per discussion with pt Follows with Dr Willam Fofana for routine care Pt was seen and care coordinated with Dr Starr. See addendum I spent a total of 80 minutes reviewing notes, outpatient records, labs, medication, coordinating, documenting and providing care for this patient excluding time spent in the performance of separately billed services and excluding time spent by another provider/QHP. History of Present Illness Chief Complaint: SOB Primary Care Provider: Willam Fofana DO Patient is 64-year-old male with PMH nonischemic cardiomyopathy, HTN, PVD, CAD, DM II, history medication noncompliance, hepatitis C, history of heroin abuse, methamphetamine abuse, BPH, depression and others listed below presented to ER with complaint of SOB. Per inpatient chart review recent [facility] hospital admission 12/10/2024-12/13/2024 for influenza A, hypoxia, atrial fibrillation RVR. He finished steroid in hospital and prior home dosing of metoprolol succinate 50 mg twice daily was resumed. Patient discharged on 2 additional days Tamiflu, and discharged on Lasix 20 mg daily. Patient was instructed to continue his home spironolactone 25 mg daily, Jardiance 25 mg daily, NovoLog 60 units twice daily M, insulin glargine U-300 100 units twice daily, lisinopril 20 mg daily. *Upon further review patient was not previously on spironolactone for several years and he hasn't been taking the past couple of days. Since being home patient states he continues with deep cough. Reports is sometimes productive of green-colored sputum. Also reports sometimes has flecks of blood. He states this cough has been ongoing for the past week. He does not think the cough has worsened or that has had more productive sputum. States he still feels SOB and has some intermittent chest discomfort with coughing. He doesn't think he has had chills or fevers. Today walking to his mom's house and states tripped and fell and scratched right elbow. Denies hitting head, LOC. Denies dizziness or CP prior to fall. Denies pain to elbow and reports able to fully move elbow. Denies any other injury. He states yesterday had [facility] at home visit and nurse set up his pill box and he took his pills while she was there. States that he didn't take any other of his pills. He also states that he hasn't been taking his insulin or checking his blood sugars at home. Denies N/V/D/C, CALIX, dizziness, syncope, vision changes, neck pain, palpitations, sore throat, rhinorrhea, abdominal pain, paresthesias, extremity weakness, extremity edema, rashes, urinary symptoms. Allergies Allergy/AdvReac Type Severity Reaction Status Date / Time shellfish derived Allergy Severe Swelling Verified 12/15/24 16:12 amoxicillin Allergy Intermediate HIVES Verified 12/15/24 16:12 clavulanic acid Allergy Intermediate HIVES Verified 12/15/24 16:12 permethrin Allergy Intermediate swelling Verified 12/15/24 16:12 shrimp Allergy Intermediate SWELLS Verified 12/15/24 16:12 sulfamethoxazole Allergy Unknown CAN'T Verified 12/15/24 16:12 [From Bactrim] REMEMBER trimethoprim [From Bactrim] Allergy Unknown CAN'T Verified 12/15/24 16:12 REMEMBER insulin glargine AdvReac Severe CHF Verified 12/15/24 16:12 [From Lantus U-100 Insulin] Home Medications Medication Instructions Recorded Confirmed Type aspirin 81 mg tablet,delayed 81 mg PO DAILY 08/01/22 12/15/24 History release empagliflozin 25 mg tablet 25 mg PO DAILY 08/01/22 12/15/24 History (Jardiance) ascorbic acid (vitamin C) 500 mg 500 mg PO DAILY 09/21/22 12/15/24 History tablet (Vitamin C) multivitamin with minerals 1 tab PO DAILY 09/21/22 12/15/24 History (Multiple Vitamin-Minerals tablet) lisinopril 20 mg tablet 20 mg PO QAM 10/10/23 12/15/24 History sertraline 100 mg tablet 100 mg PO QAM 10/10/23 12/15/24 History insulin glargine U-300 conc 300 100 unit subcut BID 10/14/23 12/15/24 History unit/mL (3 mL) subcutaneous pen (Toujeo Max U-300 SoloStar) cyanocobalamin (vitamin B-12) 1,000 mcg PO DAILY #30 caps 05/12/24 12/15/24 Rx 1,000 mcg capsule albuterol sulfate 90 mcg/actuation 90 mcg inhalation DAILY PRN 06/06/24 12/15/24 History aerosol inhaler Wheezing metformin 750 mg tablet,extended 1,500 mg PO DAILY 06/06/24 12/15/24 History release 24 hr fluticasone furoate 100 100 mcg inhalation DAILY 08/05/24 12/15/24 History mcg/actuation blister powder for inhalation (Arnuity Ellipta) furosemide 20 mg tablet (Lasix) 20 mg PO DAILY #30 tabs 12/13/24 12/15/24 Rx metoprolol succinate 50 mg 50 mg PO BID #60 tabs 12/13/24 12/15/24 Rx tablet,extended release 24 hr oseltamivir 75 mg capsule (Tamiflu) 75 mg PO BID #4 caps 12/13/24 12/15/24 Rx insulin aspart U-100 100 unit/mL 60 unit subcut BIDWMEAL 12/15/24 12/15/24 History (3 mL) subcutaneous pen Past Med/Surg History Problem List Hyperkalemia Shortness of breath Paroxysmal atrial tachycardia Paroxysmal atrial fibrillation Methamphetamine abuse PAC (premature atrial contraction) Sinus tachycardia Atrial fibrillation with RVR Hypoxia (Acute) Hyperglycemia (Acute) Influenza A (Acute) Diabetic peripheral neuropathy Diabetic neuropathic arthritis Abdominal wall cellulitis (Acute) Foot pain, left (Acute) Cellulitis of finger, right (Acute) Hyperglycemia (Acute) Burn of abdominal wall (Acute) Unable to care for self (Acute) Generalized muscle weakness (Acute) Ambulatory dysfunction (Acute) Noncompliance w/medication treatment due to intermit use of medication BPH (benign prostatic hyperplasia) Anxiety and depression Bronchitis Uncontrolled type 2 diabetes mellitus with hyperglycemia (Acute) Ambulatory dysfunction (Acute) Generalized weakness (Acute) Acute hyperglycemia (Acute) Morbid obesity with BMI of 40.0-44.9, adult Acute hyperglycemia (Acute) ALEJANDRA (obstructive sleep apnea) Hyperglycemia Nonischemic cardiomyopathy (Chronic) "prior EF 30% per Epic records. echo 02/2015- EF 40-45%" DM type 2 (diabetes mellitus, type 2) (Chronic) H/O TB (tuberculosis) (Chronic) H/O toxoplasmosis (Chronic) Hepatitis C (Chronic) Hypertension (Chronic) Colon polyp (Chronic) "TVA polyp on colonoscopy 09/2014" H/O colonoscopy (Chronic) "11/2015- diverticulosis" S/P cardiac cath (Chronic) "for abnormal stress test. cath 03/18/2015-essentially normal coronaries with no obstructive disease " Colon polyp Confusion (Acute) Hyperglycemia due to type 2 diabetes mellitus (Acute) DVT prophylaxis Polyneuropathy Peripheral vascular disease Depression Bilateral cellulitis of lower leg (Acute) Fatigue (Acute) Encephalopathy Hypercapnic respiratory failure Varicose veins of bilateral lower extremities with other complications Morbid obesity H/O drug abuse Medical History Peripheral neuropathy Acute dehydration Accidental fall tripped over dog bed, hit back of head, checked in the ED poss concussion Dysequilibrium Hepatitis C Diabetes mellitus, type 2 Depression Anxiety Hypertension Surgical History History of colonoscopy History of umbilical hernia repair x2 History of tooth extraction History of wisdom tooth extraction History of cardiac cath 03/2015 @ [facility], no stents follows with Dr. Monet Family History Mother Family history of diabetes mellitus Father Family history of diabetes mellitus Other No family history of adverse response to anesthesia Social History Smoking Status: Never smoker Tobacco Type: Cigarettes Cigarettes Per Day: Says he occasionally will smoke a cigar.; Second Hand Exposure: No; Do You Dip or Chew Tobacco: No; Tobacco Cessation Education Requested by Patient: No Hx Alcohol Use: Yes Alcohol type: beer Hx Substance Use: Yes Non-Prescribed Medications: Methamphetamines Last Used Substance: Days (ago) Last Used Substance Other:: few weeks ago Preferred Language: Yi Communication Ability: Effective Oleo Hasher And Renderer Required: No Beliefs That Will Affect Care: None marital status: Single Current Living Situation: Alone Current Living Situation Comment: lives alone Other Information That Helps Us Care for You: No Feels Safe at Home: Yes Safety Concerns: Feels Safe At This Time Gender Identity: Male Assistive Devices: Glasses and Walker Review of Systems Review of Systems: All systems reviewed & are unremarkable except as noted in HPI & below Physical Exam Physical Exam: General: no acute distress, obese male Head: normocephalic, atraumatic Eyes: PERRL, EOM's intact, conjunctiva non-injected, anicteric ENT: normal inspection external ears, nose, mucous membranes dry Neck: supple, trachea midline Lungs: diminished breath sounds throughout without noted wheezing, rhonchi or rales. No respiratory distress, 93% on RA CV: RRR, no pretibial edema Abd: normal BS, soft, non-tender Ext: no cyanosis, no calf tenderness Neuro: A&O x 3, no focal deficits noted, flat affect Skin: warm, dry Results & Data Results & Data Vital Signs (Past 12 Hours) Vital Signs Temp Pulse Pulse Resp BP BP Pulse Ox 12/15/24 16:00 94 H 18 152/82 H 95 12/15/24 15:10 37.1 C 93 H 20 147/82 H 92 12/15/24 15:00 157/82 H 12/15/24 14:51 92 H 21 147/82 H 88 L 12/15/24 14:45 90 23 92 12/15/24 14:33 87 27 H 90 12/15/24 14:21 88 19 91 12/15/24 14:12 82 18 97 12/15/24 14:00 87 29 H 12/15/24 14:00 152/93 H 12/15/24 14:00 152/93 H 12/15/24 13:54 86 18 92 12/15/24 13:52 93 12/15/24 13:52 12/15/24 13:51 85 16 85 L 12/15/24 13:48 145/85 H 12/15/24 13:27 83 25 H 94 12/15/24 13:16 141/95 H 12/15/24 13:16 141/95 H 12/15/24 13:06 83 24 12/15/24 13:04 84 12/15/24 13:03 85 31 H 91 12/15/24 12:26 36.5 C 84 22 149/72 H 97 O2 Del Method 12/15/24 16:00 Room Air 12/15/24 15:10 Room Air 12/15/24 15:00 12/15/24 14:51 12/15/24 14:45 12/15/24 14:33 12/15/24 14:21 12/15/24 14:12 12/15/24 14:00 12/15/24 14:00 12/15/24 14:00 12/15/24 13:54 12/15/24 13:52 12/15/24 13:52 Room Air 12/15/24 13:51 12/15/24 13:48 12/15/24 13:27 12/15/24 13:16 12/15/24 13:16 12/15/24 13:06 12/15/24 13:04 12/15/24 13:03 12/15/24 12:26 Room Air Laboratory Results Short CBC 12/15/24 Range/Units 13:45 WBC 14.99 H (4.8-10.8) K/ul Hgb 17.9 (14.0-18.0) g/dl Hct 53.0 H (42.0-52.0) % Plt Count 234 (130-400) K/uL BMP 12/15/24 12/15/24 12/15/24 13:45 17:27 18:33 Sodium 125 L 128 L Potassium 5.9 H TNP 4.9 Chloride 87 L 94 L Carbon Dioxide 30 28 BUN 39 H 35 H Creatinine 1.11 0.95 Glucose 757 H* 511 H* Calcium 9.6 8.8 Liver Function 12/15/24 Range/Units 13:45 Total Bilirubin 0.8 (0.2-1.0) mg/dl AST 21 (13-39) U/L ALT 28 (7-52) U/L Alkaline Phosphatase 101 (34-104) U/L Albumin 3.5 (3.4-5.0) gm/dl Urine 12/15/24 Range/Units 15:51 Urine Color Yellow Urine Appearance Clear (Clear) Urine pH 5.5 (4.5-7.5) Ur Specific [place] 1.032 H (1.000-1.030) Urine Protein Negative (Negative) Urine Glucose (UA) 3+ H (Negative) Diagnostic Findings Chest X-Ray 12/15/24 12:42 XR chest 1V portable CLINICAL HISTORY: Dyspnea COMPARISON STUDY: 12/10/2024 FINDINGS: Heart size and pulmonary vasculature are normal. No effusion, consolidation, or pneumothorax. IMPRESSION: No acute findings. ACT 112: Negative or not required by law. Electronically signed by: Ajay Swartz M.D. 12/15/2024 1:[address] 12/15/24 12:43 CT OF THE HEAD WITHOUT CONTRAST CLINICAL HISTORY: fall, headache COMPARISON STUDY: Head CT May 09, 2024. CT DOSE: 625.8 mGy.cm TECHNIQUE: Helical axial images of the head were obtained without IV contrast. Automated exposure control was utilized for the study. A dose lowering technique was utilized adhering to the principles of ALARA. FINDINGS: No acute intracranial hemorrhage, midline shift or mass effect is pre sent. Ventricular system is stable. The basal cisterns are patent. There are no extra-axial collections. Right temporal lobe encephalomalacia is again noted. There are no findings to suggest acute dural sinus thrombosis or acute territorial infarct. Stable postoperative findings following left-sided craniotomy. There are no calvarial fractures. There is moderate mucosal thickening with air-fluid levels within the maxillary sinuses. There is mild mucosal thickening within the sphenoid sinuses. Sinus opacification is new when compared to prior CT. There are also secretions within the maxillary sinuses. IMPRESSION: 1. No acute intracranial findings. No change in appearance of the brain. 2. Bilateral maxillary and sphenoid sinus mucosal thickening with air-fluid level and secretions. The findings may represent acute sinusitis. ACT 112: Negative or not required by law. Electronically signed by: Gualberto Buitrago M.D. 12/15/2024 2:00 PM Chest CTA 12/15/24 17:39 EXAM: CT Angiography Chest With Intravenous Contrast INDICATION: Shortness of breath. TECHNIQUE: Axial computed tomographic angiography images of the chest with intravenous contrast. Sagittal and coronal reformatted images were created and reviewed. This CT exam was performed using one or more of the following dose reduction techniques: automated exposure control, adjustment of the mA and/or kV according to patient size, and/or use of iterative reconstruction technique. MIP reconstructed images were created and reviewed. CONTRAST: 115ml of Optiray 320 was administered intravenously. COMPARISON: 12/11/2023 FINDINGS: Pulmonary arteries: No abnormality noted. No pulmonary embolism. Aorta: No acute change noted. No thoracic aortic aneurysm or dissection. Lungs and pleural spaces: There is airway thickening with subsegmental mucoid impaction and peribronchial infiltrate in the right posterior costophrenic sulcus. There is mild generalized airway thickening versus. No pleural effusion or pneumothorax. Stable 6 mm noncalcified pleural-based nodule in the anterior left upper lobe. S 2 new approximate 4 mm noncalcified left lower lobe nodules are unchanged. Stable 5 mm noncalcified right lower lobe nodule. Stable 8 mm diameter noncalcified pleural-based medial right lower lobe nodule. Heart: Most stable cardiomegaly. No pericardial effusion or right heart strain. Bones/joints: Degenerative changes noted throughout the spine. No acute osseous abnormality seen. Soft tissues: No abnormality noted. Lymph nodes: No abnormality noted. No enlarged lymph nodes. IMPRESSION: 1. No pulmonary embolus noted. 2. Bronchitis with subsegmental mucoid impaction and small focus of right lower lobe pneumonia. 3. Multiple noncalcified pulmonary nodules are stable. Recommend additional follow-up on or after 05/18/2023. ACT 112: N/A Electronically signed by Siomara Capps 12-15-2024 6:55 PM ECG Additional Comments: sinus rhythm per my interpretation Supervising Physician Co-Signing Physician Notes Attending Addendum: Case reviewed with the advanced practitioner. I have personally performed a history and physical examination on the patient. I have reviewed the advanced practitioner's documentation on the date of service referenced in note, and I agree with, and take responsibility for the plan of care. please refer to her notes for full details patient seen and examined, records reviewed by myself as well on exam, patient seen resting in bed, sleeping but easily awakened states he feels better than admission breathing is better no headache, dizziness, nausea, active shortness of breath, chest pain, abdominal pain no other symptoms VS noted and reviewed oriented x 3 , not in distress, speaks in sentences with no effort nor accessory muscle use normal rate, regular rhythm, no murmurs mild rales r base, clear on the left non distended, soft, nontender no bipedal edema, erythema, warmth no neuro deficits all labs, imaging noted and reviewed ASSESSMENT AND PLAN> INFLUENZA A INFECTION POSSIBLE SECONDARY BACTERIAL PNEUMONIA- [facility] CT chest: 1. No pulmonary embolus noted. 2. Bronchitis with subsegmental mucoid impaction and small focus of right lower lobe pneumonia. 3. Multiple noncalcified pulmonary nodules are stable. Recommend additional follow-up on or after 05/18/2023. ff up cultures, MRSa nasal swab cover with Cefepime + Azithro completed Tamiflu Hypertonic saline nebs bid, Flutter valve, Mucinex HYPERGLYCEMIA SECONDARY TO MEDICATION NONADHERENCE DM 2 Pharmacy Glycemic Consult other diagnoses and plan of care as per advanced practitioner's notes I spent a total of 35 minutes coordinating, documenting, and providing care for this patient, excluding time spent in the performance of separately billed services or time spent by another provider/QHP. Sonido Starr MD
[2024-12-15 16:47] LABS: Amphetamines+Metham, Urine Neg (Neg); Barbiturates, Urine Neg (Neg); Benzodiazepine, Urine Neg (Neg); Cocaine, Urine Neg (Neg); Fentanyl, Urine Neg (Neg); MDMA (Ecstacy), Urine Neg (Neg); Marijuana, Urine Neg (Neg); Methadone, Urine Neg (Neg); Opiate, Urine Neg (Neg); Phencyclidine, Urine Neg (Neg)
[2024-12-15] MEDS ORDERED: PHARMACY GLYCEMIC MGMT CONSULT PRN (17:34)
[2024-12-15] MEDS ORDERED: STAT IV Infusion **Titration per Protocol STA (17:34)
[2024-12-15] MEDS: OPTIRAY 320 125ml IV ONE (18:11)
[2024-12-15] MEDS ORDERED: DEXTROSE 50% 50 ML SYRINGE IV PRN (18:15)
[2024-12-15] MEDS ORDERED: GLUCAGON FOR INJ 1 MG VIAL SQ PRN (18:15)
[2024-12-15] MEDS ORDERED: CARBOHYDRATES FOR HYPOGLYCEMIA PO PRN (18:15)
[2024-12-15] MEDS ORDERED: GLUCOSE 10 TAB/TUBE PO PRN (18:15)
[2024-12-15] MEDS ORDERED: GLUCOSE 40% GEL 15 GM TUBE PO PRN (18:15)
[2024-12-15 18:16] LABS: Anion Gap 6 (3-11); BUN Creatinine Ratio 36.8 (10-20); Blood Urea Nitrogen 35 mg/dl (6-23); Calcium 8.8 mg/dl (8.6-10.3); Carbon Dioxide 28 mmol/L (21-32); Chloride 94 mmol/L (98-107); Creatinine Clr Calc Pharmacy 104.7 ml/min; Glucose 511 mg/dl (70-99(Fasting)); Phosphorus 4.1 mg/dl (2.5-4.9); Sodium 128 mmol/L (136-145)
[2024-12-15] MEDS: INSULIN REGULAR 250 UNITS in SODIUM CHLORIDE 0.9% 247.5 ML IV SCH (18:28)
[2024-12-15] MEDS: NovoLIN-R BOLUS FROM BAG IV ONE (18:30)
--- NOTE | 2024-12-15 18:56 | CT Scan Report ---
EXAM: CT Angiography Chest With Intravenous Contrast INDICATION: Shortness of breath. TECHNIQUE: Axial computed tomographic angiography images of the chest with intravenous contrast. Sagittal and coronal reformatted images were created and reviewed. This CT exam was performed using one or more of the following dose reduction techniques: automated exposure control, adjustment of the mA and/or kV according to patient size, and/or use of iterative reconstruction technique. MIP reconstructed images were created and reviewed. CONTRAST: 115ml of Optiray 320 was administered intravenously. COMPARISON: 12/11/2023 FINDINGS: Pulmonary arteries: No abnormality noted. No pulmonary embolism. Aorta: No acute change noted. No thoracic aortic aneurysm or dissection. Lungs and pleural spaces: There is airway thickening with subsegmental mucoid impaction and peribronchial infiltrate in the right posterior costophrenic sulcus. There is mild generalized airway thickening versus. No pleural effusion or pneumothorax. Stable 6 mm noncalcified pleural-based nodule in the anterior left upper lobe. S 2 new approximate 4 mm noncalcified left lower lobe nodules are unchanged. Stable 5 mm noncalcified right lower lobe nodule. Stable 8 mm diameter noncalcified pleural-based medial right lower lobe nodule. Heart: Most stable cardiomegaly. No pericardial effusion or right heart strain. Bones/joints: Degenerative changes noted throughout the spine. No acute osseous abnormality seen. Soft tissues: No abnormality noted. Lymph nodes: No abnormality noted. No enlarged lymph nodes. IMPRESSION: 1. No pulmonary embolus noted. 2. Bronchitis with subsegmental mucoid impaction and small focus of right lower lobe pneumonia. 3. Multiple noncalcified pulmonary nodules are stable. Recommend additional follow-up on or after 05/18/2023. ACT 112: N/A Electronically signed by Siomara Capps 12-15-2024 6:55 PM
[2024-12-15] MEDS: OSELTAMIVIR PHOSPHATE 75 MG CAP PO STA (19:25)
[2024-12-15] MEDS ORDERED: ACETAMINOPHEN 325 MG TAB PO PRN (20:30)
[2024-12-15] MEDS ORDERED: PROMETHAZINE 6.25 MG/50.25 ML BAG IV PRN (20:30)
[2024-12-15] MEDS ORDERED: ALBUTEROL 0.083% NEBU SOLN 3 ML VIAL NEB PRN (20:30)
[2024-12-15 21:07] LABS: Appearance Urine Clear (Clear); Bilirubin Urine Negative (Negative); Blood Urine Negative (Negative); Color Urine Yellow; Glucose Urine UA 3+ (Negative); Ketones Urine Negative (Negative); Leukocyte Esterase Urine Negative (Negative); Nitrite Urine Negative (Negative); Protein Urine Negative (Negative); Specific Gravity Urine 1.032 (1.000-1.030); Urobilinogen Urine Negative (Negative); pH Urine 5.5 (4.5-7.5)
[2024-12-15] MEDS: CEFEPIME 2000MG 2,000 MG/20 ML SYR IV SCH (21:49)
[2024-12-15] MEDS: ENOXAPARIN INJ 40 MG/0.4 ML SYR SQ SCH (21:50)
[2024-12-15] MEDS: METOPROLOL SUCC 50MG EXT REL TAB PO SCH (21:50)
[2024-12-15] MEDS: guaiFENesin 600 MG TABCR PO SCH (21:51)
[2024-12-15 22:10] LABS: Calcium 8.9 mg/dl (8.6-10.3)
[2024-12-15] MEDS: INSULIN ASPART PER UNIT CHARGE SC SCH (22:11)
[2024-12-15 22:15] LABS: BUN Creatinine Ratio 35.8 (10-20); Creatinine Clr Calc Pharmacy 125.1 ml/min
[2024-12-16] MEDS: HHS GOAL RANGE 250-350 mg/dl ONE (00:22)
[2024-12-16] MEDS: INSULIN HUMAN NPH SC ONE ×2 (00:50→07:57)
[2024-12-16] MEDS: INSULIN ASPART PER UNIT CHARGE SC SCH ×2 (00:50→04:16)
[2024-12-16 01:13] LABS: BUN Creatinine Ratio 34.2 (10-20); Calcium 8.8 mg/dl (8.6-10.3); Creatinine Clr Calc Pharmacy 128.2 ml/min; Potassium 4.2 mmol/L (3.5-5.1)
--- OUTSIDE RECORDS SUMMARY | 2024-12-16 02:11 | External Medical Summary | Summary of Care ---
Author Name Unknown Organization [facility] Address [address] [facility] [place] [address] Phone [phone] Care Team Providers Care Complex Care Nurse Practitioner Name Role Phone Willam Fofana DO Primary Care Provider [phone] Reason for Visit * Reason Onset Date Comments [facility]: Maintenance 12/14/2024 Encounter Details Date Type Department Care Team (Late st Contact Info) Description 12/14/2024 Telephone [facility], [facility] [address] [facility] [place] [address] Eda Valdivia, THERAPIST OCCUPATIONAL [address] [facility] [address] [facility]: Maintenance Allergies Active Allergy Reactions Criticality Noted Date Comments Amoxicillin-Pot Clavulanate Hives High 11/26/19 12 Sulfamethoxazole-Trimethopri m 02/07/2016 Insulin Glargine 01/21/2016 States he went in to CHF after one shot of insulin Other reaction(s): CHF Permethrin 04/27/2013 Shrimp Flavor Agent (Non-Screening) 04/27/2013 documented as of this encounter (statuses as of 12/14/2024) Medications VITAMIN C 500 MG PO TABS [...] Tablet by mouth in the morning. Active BD Pen Needle Coby 2nd Gen [...] hemoglobin A1c goal of less than 7.0% ([facility]) Inject 100 Units under the skin in the morning and 100 Units before bedtime. 60 mL 3 10/19/19 24 Active NovoLOG FlexPen ReliOn 100 UNIT/ML Subcutaneous Solution Pen-injector (insulin aspart)Indication s:Type 2 diabetes mellitus with complication, with long-term current use of insulin ([facility]) INJECT 60 UNITS SUBCUTANEOUSLY WITH BREAKFAST, [...] MORNING 90 Tablet 3 05/16/20 24 Active B-12 1000 MCG Oral Tablet [...] g 5 05/30/20 24 Active Dexcom G6 Health Associate DeviceIndications :DM type 2, not at goal (HCC) Use as directed. E11.9 1 Each 06/02/20 24 Active Dexcom G6 SensorIndications :DM type 2, not at goal (HCC) Use as directed. Change every 10 days 9 Each 3 5 3:19 PM EST 06/16/20 24 Active Dexcom G6 TransmitterIndica [...] MORNING 30 Each 5 11/12/19 25 Active Furosemide 40 MG Oral Tablet (LASIX)Indication s:Non-ischemic cardiomyopathy (HCC) TAKE 2 TABLETS BY MOUTH IN THE MORNING AND 1 TABLET IN THE AFTERNOON 270 Tab 3 08/28/20 20 025 Disconti nued(Med ication/ Dose Changed) Gabapentin 300 MG Oral Capsule (Neurontin) Take 1 Capsule by mouth in the morning and 1 Capsule at noon and 1 Capsule before bedtime. Patient reports taking it twice/ day. 05/12/20 24 025 Disconti nued(Med ication List Clean Up) documented as of this encounter (statuses as of 12/14/2024) Active Problems Problem Noted Date Diagnosed Date [...] as of this encounter (statuses as of 12/14/2024) Resolved Problems Problem Noted Date Diagnosed Date [...] as of this encounter (statuses as of 12/14/2024) Immunizations Name Administration Dates Next Due COVID-19 mRNA, LNP-s, No Pre serve, 2-Dose Series ([employer] ([employer])) 09/12/2021,12/18/2020,11/27/2020 COVID-19, MRNA-LNP, 24-25, P R, 30MCG/0.3ML, IM, 12YRS AND ABOVE ([employer] ([employer])-[facility]) 11/07/2023 Hepatitis B, 20+ yrs 07/26/2015,03/01/2015,11/29 Pneumococcal Conjugate Vacci ne, 20-valent ([id number]) 12/22/2023,07/15/2022 Pneumococcal Polysaccharide PPV23 (Pneumovax) 02/26/2014 Seasonal [...] Telephone Encounter - Eda Valdivia LPN - 12/14/2024 10:51 AM EST Patient was discharged from [facility] 12/13 to home TT to [facility] surgery scheduler Parris Boggs to schedule TRISH today with Rosie Price documented in this encounter Plan of Treatment Upcoming Encounters Date Type Department Care Team (Latest Contact Info) Description 12/19/2024 3:20 PM EDT Office Visit Family Practice [facility] [address] [facility] [address] Jonna Tovar MD [address] [facility] [address] 12/20/2024 9:30 AM EDT [facility] Visit [facility] [address] [facility] [place] [address] Rosie Price, RN 132 [facility] [place] [address] 12/29/2024 11:30 AM EDT Imaging Radiology [address] 132 [facility] [place] [phone] 01/01/2025 10:00 AM EDT [facility] Visit [facility] [place], [facility] 132 [facility] [place] [address] Rosie Price, RN 132 [facility] [place] [address] 01/16/2025 8:00 AM EDT Office Visit [facility] [place] [facility] [phone] [place], [facility] [address] [place] [address] 01/24/2025 2:00 PM EDT Office Visit Urology, [place] [address] [place] [address] Gil Dejesus PA-C [address] [place] [address] 02/02/2025 10:15 AM EDT Office Visit [facility] 16 [place] [address] Mason Jean-Baptiste MD 16 [facility] [place] [address] 02/07/2025 3:30 PM EDT Nutrition Services Nutrition & Weight Management, [facility] [address] [facility] [place] [address] Mayuri Ernst RDN 132 [facility] [place] [address] 02/09/2025 11:40 AM EDT Office Visit Family Practice [facility] [address] [place] [address] Willam Fofana, DO [address] [facility] [address] 02/28/2025 8:00 AM EDT Hospital Encounter ENDO [facility], Endoscopy Room [facility] [address] [facility] [place] [phone] Kandice Arevalo MD [address] [place] [address] 02/28/2025 8:00 AM EDT - 02/28/2025 8:30 AM EDT Surgery ENDO [facility], Endoscopy Room [facility] [address] [facility] [place] [phone] Kandice Arevalo MD [address] [place] [phone] COLONOSCOPY FLEXIBLE PROXIMAL DIAGNOSTIC Scheduled Procedures Name [...] filedocumented as of this encounter Care Teams Complex Care Nurse Practitioner Relationship Specialty Start Date End Date Willam Fofana DO [address] [place] [address] PCP - General Family Medicine 04/26/17 documented as of this encounter
--- OUTSIDE RECORDS SUMMARY | 2024-12-16 02:11 | External Medical Summary | Summary of Care ---
Author Name Unknown Organization [facility] Address [address] [place] [address] Phone [phone] Care Team Providers Care Project Manager/Team Coach Name Role Phone Willam Fofana DO Primary Care Provider [phone] Reason for Visit * Reason Onset Date Comments [facility]: Engagement 12/14/2024 Encounter Details Date Type Department Care Team (Late st Contact Info) Description 12/14/2024 Telephone [facility], [place] [address] [place] [phone] Parris Means, ALEJANDRA [address] [place] [address] [facility]: Engagement Allergies [...] g 5 05/30/20 24 Active Dexcom G6 Personnel Placement Specialist DeviceIndications :DM type 2, not at goal [...] mRNA, LNP-s, No Pre serve, 2-Dose Series ([employer]) 09/12/2021,12/18/2020,11/27/2020 COVID-19, MRNA-LNP, 24-25, P R, 30MCG/0.3ML, IM, 12YRS AND ABOVE ([facility]) 11/07/2023 Hepatitis B, 20+ yrs 07/26/2015,03/01/2015,11/29 Pneumococcal Conjugate Vacci ne, 20-valent ([id number]) 12/22/2023,07/15/2022 Pneumococcal Polysaccharide PPV23 (Pneumovax) 02/26/2014 Seasonal [...] encounter Miscellaneous Notes * Telephone Encounter - Parris Means OSA - 12/14/2024 10:32 AM EST TT request to set TRISH appt for today, call to pt he is agreeable.. documented in this encounter Plan of Treatment Upcoming Encounters Date Type Department Care Team (Latest Contact Info) Description 12/19/2024 3:20 PM EDT Office Visit Family Practice [facility] [address] [facility] [place] [address] Jonna Tovar MD [address] [facility] [place] [address] 12/20/2024 9:30 AM EDT [facility] Visit [facility] [place], [facility] [place] [address] Rosie Price, RN [address] [place] [address] 12/29/2024 11:30 AM EDT Imaging Radiology [address] [place] [phone] 01/01/2025 10:00 AM EDT [facility] Visit [facility] [place], [facility] [place] [address] Rosie Price, RN [address] [place] [address] 01/16/2025 8:00 AM EDT Office Visit Pharmacy, [place] [facility] [place] [phone] [facility] [address] [place] [address] [place] [address] 01/24/2025 2:00 PM EDT Office Visit Urology, [place] [address] [facility] [place] [address] Gil Dejesus PA-C [address] [facility] [address] 02/02/2025 10:15 AM EDT Office Visit [facility] 16 [place] [address] Mason Jean-Baptiste MD 16 [place] [address] 02/07/2025 3:30 PM EDT Nutrition Services Nutrition & Weight Management, [facility] 132 [facility] [place] [address] Mayuri Ernst RDN 132 [facility] [place] [address] 02/09/2025 11:40 AM EDT Office Visit [facility] [place] [address] Willam Fofana, DO 200 [facility] [place] [address] 02/28/2025 8:00 AM EDT Hospital Encounter ENDO [facility], [facility] 132 [facility] [place] [phone] Kandice Arevalo MD [address] [place] [address] 02/28/2025 8:00 AM EDT - 02/28/2025 8:30 AM EDT Surgery ENDO [facility], [facility] 132 [facility] [place] [phone] Kandice Arvealo MD [address] [place] [address] COLONOSCOPY FLEXIBLE PROXIMAL DIAGNOSTIC Scheduled Procedures Name [...] filedocumented as of this encounter Care Teams Project Manager/Team Coach Relationship Specialty Start Date End Date Willam Fofana DO [address] [place] [address] PCP - General Family Medicine 04/26/17 documented as of this encounter
--- OUTSIDE RECORDS SUMMARY | 2024-12-16 02:11 | External Medical Summary | Summary of Care ---
Author Name Unknown Organization [facility] Address [address] [facility] [address] Phone [phone] Care Team Providers Care Farm Implement Engine Mechanic Name Role Phone Willam Fofana DO Primary Care Provider Encounter Details Date Type Department Care Team (Late st Contact Info) Description 12/12/2024 Result Scan Unspecified Department Dre Sidhu DO [address] [place] [address] <No scans attached> Allergies Active Allergy Reactions Criticality Noted Date Comments Amoxicillin-Pot Clavulanate Hives High 11/26/19 12 Sulfamethoxazole-Trimethopri m 02/07/2016 Insulin Glargine 01/21/2016 States he went in to CHF after one shot of insulin Other reaction(s): [facility] Permethrin 04/27/2013 Shrimp Flavor Agent (Non-Screening) 04/27/2013 [...] g 5 05/30/20 24 Active Dexcom G6 Drum Attendant DeviceIndications :DM type 2, not at goal ([facility]) Use as directed. E11.9 1 Each 06/02/20 24 Active Dexcom G6 SensorIndications :DM type 2, not at goal ([facility]) Use as directed. Change every 10 days 9 Each 3 5 3:19 PM EST 06/16/20 24 Active Dexcom G6 TransmitterIndica tions:DM type 2, not at goal ([facility]) Use as directed. Change every 90 days [...] mRNA, LNP-s, No Pre serve, 2-Dose Series ([employer]) 09/12/2021,12/18/2020,11/27/2020 COVID-19, MRNA-LNP, 24-25, P R, 30MCG/0.3ML, IM, 12YRS AND ABOVE ([employer]) 11/07/2023 Hepatitis B, 20+ yrs 07/26/2015,03/01/2015,11/29 Pneumococcal Conjugate Vacci ne, 20-valent ([id number]) 12/22/2023,07/15/2022 Pneumococcal Polysaccharide PPV23 (Pneumovax) 02/26/2014 Seasonal [...] 3:20 PM EDT Office Visit Family Practice [facility] [address] [place] [address] Jonna Tovar MD [address] [place] [address] 12/20/2024 9:30 AM EDT Home Visit [facility] at [address] [place] [address] Rosie Price, RN [address] [place] [address] 12/29/2024 11:30 AM EDT Imaging Radiology [facility] [address] [facility] [place] [phone] 01/01/2025 10:00 AM EDT [facility] [place] [address] Rosie Price, RN [address] [place] [address] 01/16/2025 8:00 AM EDT Office Visit Pharmacy, [facility] [address] [place] [phone] [place] [address] 01/24/2025 2:00 PM EDT Office Visit Urology, [place] [address] [place] [address] Gil Dejesus PA-C [address] [place] [address] 02/02/2025 10:15 AM EDT [facility] [place] [place] [address] [place] [address] Mason Jean-Baptiste MD 16 [place] [address] 02/07/2025 3:30 PM EDT Nutrition Services Nutrition & Weight Management, [facility] 132 [place] [address] Mayuri Ernst RDN 132 [facility] [place] [address] 02/09/2025 11:40 AM EDT Office Visit Family Practice [facility] [place] [address] [place] [address] Willam Fofana DO 200 [facility] [place] [address] 02/28/2025 8:00 AM EDT Hospital Encounter ENDO OSSC, Endoscopy Room [facility] [address] [facility] [place] [phone] Kandice Arevalo MD [address] [place] [address] 02/28/2025 8:00 AM EDT - 02/28/2025 8:30 AM EDT Surgery ENDO [facility], Endoscopy Room [facility] [address] [facility] [place] [phone] Kandice Arevalo MD [address] [place] [address] COLONOSCOPY FLEXIBLE PROXIMAL DIAGNOSTIC Scheduled Procedures Name [...] Procedure Name Priority Date/Time Associated Diagnosis Comments ECHOCARDIOLOGY SCANNED RESULT 12/12/2024 documented in this encounter Results * ECHOCARDIOLOGY SCANNED RESULT (12/12/2024) 12/12/2024 us Dre Sidhu DO ECHOCARDIOLOGY Final Resul t documented in this encounter Care Teams Farm Implement Engine Mechanic Relationship Specialty Start Date End Date Willam Fofana DO [address] [place], [place] [phone] PCP - General Family Medicine 04/26/17 documented as of this encounter
[2024-12-16] MEDS: SODIUM CHLOR 7% 4 ML NEB NEB SCH (07:12)
[2024-12-16 07:35] LABS: Basophils # (auto) 0.07 K/uL (0.00-0.20); Basophils % (auto) 0.5 %; Eosinophils # (auto) 0.12 K/uL (0.00-0.50); Eosinophils % (auto) 0.8 %; Hematocrit (blood only) 47.1 % (42.0-52.0); Hemoglobin 16.3 g/dl (14.0-18.0); Immature Granulocytes # (auto) 0.13 K/uL (0.01-0.20); Immature Granulocytes % (auto) 0.8 %; Lymphocytes # (auto) 3.12 K/uL (1.20-3.40); Lymphocytes % (auto) 20.1 %; Mean Corpuscular Hgb Conc 34.6 g/dL (32.0-36.0); Mean Corpuscular Volume 83.7 fL (80.0-100.0); Mean Platelet Volume 10.2 fL (9.4-12.4); Monocytes # (auto) 1.25 K/uL (0.11-0.59); Neutrophils # (auto) 10.84 K/uL (1.40-6.50); Neutrophils % (auto) 69.8 %; Platelet Count 218 K/uL (130-400); RDW Coefficient of Variation 12.4 % (11.5-14.5); RDW Standard Deviation 37.4 fL (36.4-46.3); Red Blood Count 5.63 M/uL (4.70-6.10); White Blood Count 15.53 K/ul (4.8-10.8)
[2024-12-16] MEDS ORDERED: INSULIN HUMAN NPH SC SCH (08:00)
--- NOTE | 2024-12-16 08:16 | Hospitalist Progress Note ---
Date of Service December 16, 2024 Assessment & Plan (1) Uncontrolled type 2 diabetes mellitus with hyperglycemia: (2) Shortness of breath: (3) Hyperkalemia: (4) Paroxysmal atrial fibrillation: (5) Nonischemic cardiomyopathy: (6) Hypertension: (7) Depression: Plan Pt is a 64yoM with PMHx significant for Nonischemic cardiomyopathy, hypertension, diastolic heart failure, Hx of RI, untreated hep C, diabetes, anxiety and depression, BPH, PVD, medication noncompliance who presented with SOB and was found to have a pneumonia and with hyperglycemia after a recent hospitalization. Hospital Acquired Pneumonia Pt presenting with reoccurrence of SOB Previously treated for influenza infection and CHF exacerbation Leukocytosis, afebrile No increased oxygen requirement Chest XRAY unremarkable CTA chest negative for PE, notes bronchitis, possible RLL pneumonia Procalcitonin negative MRSA nares negative sputum cx not yet obtained Blood Cx x 2 sets pending Continue Cefepime and Azithromycin at this time Consider pulm input if not improving Hyperglycemia secondary to medication adherence DMII Pt presented with glucose of 757 VBG normal, bicarb normal, no AG UA with glucose, no ketones Home regimen of glargine 100U BID with aspart 60U BID w/ meals, also on jardiance (for HF as well) and metformin Pt without compliance Insulin drip initially, has since been transitioned to SQ insulin Pharmacy Glycemic Consult Continue to monitor Pulmonary Nodules Noted on CTA, stable, followup recommended PCP followup Nonischemic Cardiomyopathy Diastolic Heart Failure Coronary Artery disease Paroxysmal Atrial Fibrillation December 13 2023: Last echo with EF 60-65%, Grade 1 diastolic heart failure Pt previously followed with Dr Monet of [facility] Cardiology: Per last cardiology note cardiac regimen of lasix, spironolactone, lisinopril, metoprolol and a baby aspirin at that time Jardiance added by PCP Pt with non medication noncompliance, should continue on regimen of lasix, s pironolactone, lisinopril, metoprolol, baby aspirin and Jardiance on discharge Resumed Lasix, jardiance and lisinopril Resume spironolactone before discharge Will need re-establishment with cardiology for further medication adjustments Monitor volume status, I's and Os Polysubstance abuse (heroin, meth) w/recent use Untreated Hepatitis C Urine drug screen positive for meth, opioids, final confirmatory testing noting elevated levels Hep C testing prelim positive Hep C confirmatory RNA/quantitative ordered and pending at the time of discharge PCP follow up for treatment with Hepatology as needed Encourage cessation of meth/heroin use Mood Disorder Continue home meds Diet: DMII/HH DVT prophylaxis: Lovenox SQ Dispo: PT/OT for further recs Admission and Anticipated Discharge Date Admission Date: December 15, 2024 Subjective Pt was seen laying in bed States he did not take any of his medications at home on discharge Confirms once more that he has the medication spironolactone at home Review of Systems Review of Systems: All systems reviewed & are unremarkable except as noted in Subjective Physical Exam Physical Exam: General: Alert, oriented. No acute distress HEENT: NC/AT CV: RRR Resp: Breath sounds clear bilaterally, no increased effort of breathing Abdomen:Soft, nontender Extremities: No edema in lower extremities bilaterally. Results & Data Results & Data Vital Signs (Past 12 Hours) Vital Signs Temp Pulse Pulse Pulse Resp BP BP 12/16/24 07:45 12/16/24 07:14 65 18 12/16/24 07:09 36.6 C 66 18 133/69 12/16/24 03:56 36.8 C 80 18 131/76 12/15/24 23:48 36.8 C 81 18 113/58 L 12/15/24 23:02 75 12/15/24 20:30 87 12/15/24 20:30 Pulse Ox O2 Del Method 12/16/24 07:45 Room Air 12/16/24 07:14 90 Room Air 12/16/24 07:09 91 Room Air 12/16/24 03:56 95 Room Air 12/15/24 23:48 95 Room Air 12/15/24 23:02 12/15/24 20:30 12/15/24 20:30 Room Air Diagnostic Findings Chest X-Ray 12/15/24 12:42 XR chest 1V portable CLINICAL HISTORY: Dyspnea COMPARISON STUDY: 12/10/2024 FINDINGS: Heart size and pulmonary vasculature are normal. No effusion, consolidation, or pneumothorax. IMPRESSION: No acute findings. ACT 112: Negative or not required by law. Electronically signed by: Ajay Swartz M.D. 12/15/2024 1:[address] 12/15/24 12:43 CT OF THE HEAD WITHOUT CONTRAST CLINICAL HISTORY: fall, headache COMPARISON STUDY: Head CT May 09, 2024. CT DOSE: 625.8 mGy.cm TECHNIQUE: Helical axial images of the head were obtained without IV contrast. Automated exposure control was utilized for the study. A dose lowering technique was utilized adhering to the principles of ALARA. FINDINGS: No acute intracranial hemorrhage, midline shift or mass effect is present. Ventricular system is stable. The basal cisterns are patent. There are no extra-axial collections. Right temporal lobe encephalomalacia is again noted. There are no findings to suggest acute dural sinus thrombosis or acute territorial infarct. Stable postoperative findings following left-sided craniotomy. There are no calvarial fractures. There is moderate mucosal thickening with air-fluid levels within the maxillary sinuses. There is mild mucosal thickening within the sphenoid sinuses. Sinus opacification is new when compared to prior CT. There are also secretions within the maxillary sinuses. IMPRESSION: 1. No acute intracranial findings. No change in appearance of the brain. 2. Bilateral maxillary and sphenoid sinus mucosal thickening with air-fluid level and secretions. The findings may represent acute sinusitis. ACT 112: Negative or not required by law. Electronically signed by: Gualberto Buitrago M.D. 12/15/2024 2:00 PM Chest CTA 12/15/24 17:39 EXAM: CT Angiography Chest With Intravenous Contrast INDICATION: Shortness of breath. TECHNIQUE: Axial computed tomographic angiography images of the chest with intravenous contrast. Sagittal and coronal reformatted images were created and reviewed. This CT exam was performed using one or more of the following dose reduction techniques: automated exposure control, adjustment of the mA and/or kV according to patient size, and/or use of iterative reconstruction technique. MIP reconstructed images were created and reviewed. CONTRAST: 115ml of Optiray 320 was administered intravenously. COMPARISON: 12/11/2023 FINDINGS: Pulmonary arteries: No abnormality noted. No pulmonary embolism. Aorta: No acute change noted. No thoracic aortic aneurysm or dissection. Lungs and pleural spaces: There is airway thickening with subsegmental mucoid impaction and peribronchial infiltrate in the right posterior costophrenic sulcus. There is mild generalized airway thickening versus. No pleural effusion or pneumothorax. Stable 6 mm noncalcified pleural-based nodule in the anterior left upper lobe. S 2 new approximate 4 mm noncalcified left lower lobe nodules are unchanged. Stable 5 mm noncalcified right lower lobe nodule. Stable 8 mm diameter noncalcified pleural-based medial right lower lobe nodule. Heart: Most stable cardiomegaly. No pericardial effusion or right heart strain. Bones/joints: Degenerative changes noted throughout the spine. No acute osseous abnormality seen. Soft tissues: No abnormality noted. Lymph nodes: No abnormality noted. No enlarged lymph nodes. IMPRESSION: 1. No pulmonary embolus noted. 2. Bronchitis with subsegmental mucoid impaction and small focus of right lower lobe pneumonia. 3. Multiple noncalcified pulmonary nodules are stable. Recommend additional follow-up on or after 05/18/2023. ACT 112: N/A Electronically signed by Siomara Capps 12-15-2024 6:55 PM
[2024-12-16] MEDS: CEROVITE ADV FORMULA TAB PO SCH (08:58)
[2024-12-16] MEDS: FLUTICASONE FUROATE 100MCG 14 PUFFS/INHALER INH SCH (08:58)
[2024-12-16] MEDS: CYANOCOBALAMIN (B-12) 500 MCG TABLET PO SCH (08:59)
[2024-12-16] MEDS: SERTRALINE HCL 100 MG TABLET PO SCH (08:59)
[2024-12-16] MEDS: ASPIRIN 81 MG ECTAB PO SCH (09:00)
[2024-12-16] MEDS: AZITHROMYCIN 250 MG TAB PO SCH (09:00)
[2024-12-16] MEDS: ASCORBIC ACID 500 MG TAB PO SCH (09:01)
[2024-12-16] MEDS: EMPAGLIFLOZIN 25 MG TAB PO SCH (09:01)
[2024-12-16] MEDS: FUROSEMIDE 20 MG TAB PO SCH (09:01)
[2024-12-16] MEDS: lisinopril 20 MG TAB PO SCH (09:01)
[2024-12-16] MEDS: POLYETHYLENE (MIRALAX) 17 GM PACK PO PRN (09:02)
--- NOTE | 2024-12-16 14:00 | Pharmacy Report ---
Pharmacy Glycemic Short Note 2 - Date of Service December 16, 2024 - Glycemic Short BSG Results (Last 24 hours): 12/15/24 12/15/24 12/15/24 13:45 15:06 15:56 Glucose 757 H* POC Glucose > 600 H* 520 H* 12/15/24 12/15/24 12/15/24 17:25 17:27 18:25 Glucose 511 H* POC Glucose 501 H* 431 H* 12/15/24 12/15/24 12/15/24 19:27 20:31 21:30 Glucose 253 H POC Glucose 350 H* 310 H* 12/15/24 12/15/24 12/15/24 21:44 22:36 23:37 Glucose POC Glucose 296 H 272 H 155 H 12/16/24 12/16/24 12/16/24 00:34 00:39 04:01 Glucose 179 H POC Glucose 164 H 238 H 12/16/24 12/16/24 07:11 10:58 Glucose POC Glucose 167 H 170 H OUTPATIENT ANTIDIABETIC REGIMEN: * Toujeo 100units SQ BID * aspart insulin 60 units with breakfast and supper, 20 units with lunch * Jardiance 25mg po daily * metformin ER 1500mg po QAM HbA1c: 12.7% on 12-11-24 ASSESSMENT: * 64 year old male admitted 12/15 for SOB secondary to pneumonia and hyperglycemia. Pharmacy was consulted for glycemic management while he is admitted. * BSG on admit was 757 mg/dL, AG was 8, CO2 was 29. A regular insulin bolus of 10units iv x 1 was given and then the drip was started in the ED at 10 units/hr. BSG dropped quickly after starting the drip and it was able to be stopped at ~0030 this morning. (BSG was 164mg/dL). * Due to patient's allergy to Lantus, NPH insulin was initiated this morning at 30units QAM and 18 units with supper (based on data from previous admissions). * A bolus insulin regimen with fairly tight parameters was also started using data from previous admissions. * Jardiance was also restarted by a provider this morning. PLAN FOR INPATIENT GLYCEMIC CONTROL: * Hold outpatient diabetes medications * Basal insulin * Nph 30 units SQ Qam and 18 units SQ at supper * Bolus insulin * NovoLog per scale ACHS or Q6hrs while NPO * Goal Range: Low 110 mg/dL - High 140 mg/dL * Correction Factor: 15 mg/dL/unit * Nutritional / Prandial insulin per carb ratio of 1 unit per 4 grams CHO consumed
[2024-12-16] MEDS: INSULIN HUMAN NPH SC SCH (17:04)
[2024-12-17 06:53] LABS: Basophils # (auto) 0.08 K/uL (0.00-0.20); Basophils % (auto) 0.6 %; Eosinophils # (auto) 0.24 K/uL (0.00-0.50); Eosinophils % (auto) 1.8 %; Hematocrit (blood only) 49.5 % (42.0-52.0); Hemoglobin 16.8 g/dl (14.0-18.0); Immature Granulocytes # (auto) 0.16 K/uL (0.01-0.20); Immature Granulocytes % (auto) 1.2 %; Lymphocytes # (auto) 3.24 K/uL (1.20-3.40); Lymphocytes % (auto) 24.3 %; Mean Corpuscular Hgb Conc 33.9 g/dL (32.0-36.0); Mean Corpuscular Volume 85.3 fL (80.0-100.0); Mean Platelet Volume 10.3 fL (9.4-12.4); Monocytes # (auto) 1.07 K/uL (0.11-0.59); Neutrophils # (auto) 8.54 K/uL (1.40-6.50); Neutrophils % (auto) 64.1 %; Platelet Count 216 K/uL (130-400); RDW Coefficient of Variation 12.7 % (11.5-14.5); RDW Standard Deviation 39.2 fL (36.4-46.3); White Blood Count 13.33 K/ul (4.8-10.8)
[2024-12-17] MEDS: INSULIN HUMAN NPH SC SCH ×2 (07:55→16:44)
[2024-12-17] MEDS ORDERED: INSULIN HUMAN NPH SC SCH (08:00)
[2024-12-17 08:16] LABS: Albumin Globulin Ratio 1.1 (0.9-2); Albumin Level 3.1 gm/dl (3.4-5.0); BUN Creatinine Ratio 28.6 (10-20); Calcium 8.5 mg/dl (8.6-10.3); Creatinine Clr Calc Pharmacy 143.4 ml/min; Globulin 2.9 gm/dl (2.5-4.0); Magnesium 2.1 mg/dl (1.7-2.4); Phosphorus 2.4 mg/dl (2.5-4.9); Potassium 4.4 mmol/L (3.5-5.1)
--- NOTE | 2024-12-17 09:43 | Hospitalist Progress Note ---
Date of Service December 17, 2024 Assessment & Plan (1) Uncontrolled type 2 diabetes mellitus with hyperglycemia: (2) Shortness of breath: (3) Hyperkalemia: (4) Paroxysmal atrial fibrillation: (5) Nonischemic cardiomyopathy: (6) Hypertension: (7) Depression: Plan Pt is a 64yoM with PMHx significant for Nonischemic cardiomyopathy, hypertension, diastolic heart failure, Hx of [place], untreated hep C, diabetes, anxiety and depression, BPH, PVD, medication noncompliance who presented with SOB and was found to have a pneumonia and with hyperglycemia after a recent hospitalization. Hospital Acquired Pneumonia Pt presenting with reoccurrence of SOB Previously treated for influenza infection and CHF exacerbation Leukocytosis, afebrile No increased oxygen requirement Chest XRAY unremarkable CTA chest negative for PE, notes bronchitis, possible RLL pneumonia Procalcitonin negative MRSA nares negative sputum cx not yet obtained Blood Cx x 2 sets NGTD Continue Cefepime and Azithromycin at this time Consider pulm input if not improving Hyperglycemia secondary to medication adherence DMII Pt presented with glucose of 757 VBG normal, bicarb normal, no AG UA with glucose, no ketones Home regimen of glargine 100U BID with aspart 60U BID w/ meals, also on jardiance (for HF as well) and metformin Pt without compliance Insulin drip initially, has since been transitioned to SQ insulin Pharmacy Glycemic Consult Continue to monitor Pulmonary Nodules Noted on CTA, stable, followup recommended PCP followup Nonischemic Cardiomyopathy Diastolic Heart Failure Coronary Artery disease Paroxysmal Atrial Fibrillation December 13 2023: Last echo with EF 60-65%, Grade 1 diastolic heart failure Pt previously followed with Dr Monet of [facility] Cardiology: Per last cardiology note cardiac regimen of lasix, spironolactone, lisinopril, metoprolol and a baby aspirin at that time Jardiance added by PCP Pt with non medication noncompliance, should continue on regimen of lasix, spir onolactone, lisinopril, metoprolol, baby aspirin and Jardiance on discharge Resumed Lasix, jardiance and lisinopril Resume spironolactone before discharge Will need re-establishment with cardiology for further medication adjustments Monitor volume status, I's and Os Polysubstance abuse (heroin, meth) w/recent use Untreated Hepatitis C Urine drug screen positive for meth, opioids, final confirmatory testing noting elevated levels Hep C testing prelim positive Hep C confirmatory RNA/quantitative ordered and pending at the time of discharge PCP follow up for treatment with Hepatology as needed Encourage cessation of meth/heroin use Mood Disorder Continue home meds Diet: DMII/HH DVT prophylaxis: Lovenox SQ Dispo: PT/OT for further recs Admission and Anticipated Discharge Date Admission Date: December 15, 2024 Subjective Pt was seen laying in bed States still having the cough has not been out of bed Otherwise denies acute concerns Review of Systems Review of Systems: All systems reviewed & are unremarkable except as noted in Subjective Physical Exam Physical Exam: General: Alert, oriented. No acute distress HEENT: NC/AT CV: RRR Resp: Breath sounds clear bilaterally, no increased effort of breathing Abdomen:Soft, nontender Extremities: No edema in lower extremities bilaterally. Results & Data Results & Data Vital Signs (Past 12 Hours) Vital Signs Temp Pulse Pulse Resp BP BP Pulse Ox 12/17/24 07:12 12/17/24 07:12 36.8 C 75 18 145/84 H 91 12/17/24 07:03 71 18 91 12/17/24 03:39 36.6 C 65 18 125/77 93 12/16/24 23:48 36.6 C 56 L 18 104/67 92 12/16/24 23:00 72 O2 Del Method 12/17/24 07:12 Room Air 12/17/24 07:12 Room Air 12/17/24 07:03 Room Air 12/17/24 03:39 Room Air 12/16/24 23:48 Room Air 12/16/24 23:00 Diagnostic Findings Chest X-Ray 12/15/24 12:42 XR chest 1V portable CLINICAL HISTORY: Dyspnea COMPARISON STUDY: 12/10/2024 FINDINGS: Heart size and pulmonary vasculature are normal. No effusion, consolidation, or pneumothorax. IMPRESSION: No acute findings. ACT 112: Negative or not required by law. Electronically signed by: Ajay Swartz M.D. 12/15/2024 1:[address] 12/15/24 12:43 CT OF THE HEAD WITHOUT CONTRAST CLINICAL HISTORY: fall, headache COMPARISON STUDY: Head CT May 09, 2024. CT DOSE: 625.8 mGy.cm TECHNIQUE: Helical axial images of the head were obtained without IV contrast. Automated exposure control was utilized for the study. A dose lowering technique was utilized adhering to the principles of ALARA. FINDINGS: No acute intracranial hemorrhage, midline shift or mass effect is present. Ventricular system is stable. The basal cisterns are patent. There are no extra-axial collections. Right temporal lobe encephalomalacia is again noted. There are no findings to suggest acute dural sinus thrombosis or acute territorial infarct. Stable postoperative findings following left-sided craniotomy. There are no calvarial fractures. There is moderate mucosal thickening with air-fluid levels within the maxillary sinuses. There is mild mucosal thickening within the sphenoid sinuses. Sinus opacification is new when compared to prior CT. There are also secretions within the maxillary sinuses. IMPRESSION: 1. No acute intracranial findings. No change in appearance of the brain. 2. Bilateral maxillary and sphenoid sinus mucosal thickening with air-fluid level and secretions. The findings may represent acute sinusitis. ACT 112: Negative or not required by law. Electronically signed by: Gualberto Buitrago M.D. 12/15/2024 2:00 PM Chest CTA 12/15/24 17:39 EXAM: CT Angiography Chest With Intravenous Contrast INDICATION: Shortness of breath. TECHNIQUE: Axial computed tomographic angiography images of the chest with intravenous contrast. Sagittal and coronal reformatted images were created and reviewed. This CT exam was performed using one or more of the following dose reduction techniques: automated exposure control, adjustment of the mA and/or kV according to patient size, and/or use of iterative reconstruction technique. MIP reconstructed images were created and reviewed. CONTRAST: 115ml of Optiray 320 was administered intravenously. COMPARISON: 12/11/2023 FINDINGS: Pulmonary arteries: No abnormality noted. No pulmonary embolism. Aorta: No acute change noted. No thoracic aortic aneurysm or dissection. Lungs and pleural spaces: There is airway thickening with subsegmental mucoid impaction and peribronchial infiltrate in the right posterior costophrenic sulcus. There is mild generalized airway thickening versus. No pleural effusion or pneumothorax. Stable 6 mm noncalcified pleural-based nodule in the anterior left upper lobe. S 2 new approximate 4 mm noncalcified left lower lobe nodules are unchanged. Stable 5 mm noncalcified right lower lobe nodule. Stable 8 mm diameter noncalcified pleural-based medial right lower lobe nodule. Heart: Most stable cardiomegaly. No pericardial effusion or right heart strain. Bones/joints: Degenerative changes noted throughout the spine. No acute osseous abnormality seen. Soft tissues: No abnormality noted. Lymph nodes: No abnormality noted. No enlarged lymph nodes. IMPRESSION: 1. No pulmonary embolus noted. 2. Bronchitis with subsegmental mucoid impaction and small focus of right lower lobe pneumonia. 3. Multiple noncalcified pulmonary nodules are stable. Recommend additional follow-up on or after 05/18/2023. ACT 112: N/A Electronically signed by Siomara Capps 12-15-2024 6:55 PM
[2024-12-17] MEDS: POT PHOSPHATE MONOBASIC W/ SOD TAB PO SCH (11:06)
[2024-12-18 06:29] LABS: Basophils % (auto) 0.8 %; Eosinophils # (auto) 0.31 K/uL (0.00-0.50); Eosinophils % (auto) 2.6 %; Hematocrit (blood only) 49.6 % (42.0-52.0); Hemoglobin 16.5 g/dl (14.0-18.0); Immature Granulocytes # (auto) 0.18 K/uL (0.01-0.20); Immature Granulocytes % (auto) 1.5 %; Lymphocytes # (auto) 3.19 K/uL (1.20-3.40); Lymphocytes % (auto) 26.4 %; Mean Corpuscular Hemoglobin 28.8 pg (25.0-34.0); Mean Corpuscular Hgb Conc 33.3 g/dL (32.0-36.0); Mean Corpuscular Volume 86.7 fL (80.0-100.0); Mean Platelet Volume 9.9 fL (9.4-12.4); Monocytes # (auto) 1.05 K/uL (0.11-0.59); Monocytes % (auto) 8.7 %; Neutrophils # (auto) 7.27 K/uL (1.40-6.50); Platelet Count 239 K/uL (130-400); RDW Standard Deviation 40.4 fL (36.4-46.3); Red Blood Count 5.72 M/uL (4.70-6.10)
[2024-12-18 06:48] LABS: Albumin Globulin Ratio 1.1 (0.9-2); Albumin Level 3.1 gm/dl (3.4-5.0); BUN Creatinine Ratio 25.3 (10-20); Bilirubin,Total 0.8 mg/dl (0.2-1.0); Calcium 8.5 mg/dl (8.6-10.3); Creatinine Clr Calc Pharmacy 121.4 ml/min; Globulin 2.9 gm/dl (2.5-4.0); Magnesium 2.2 mg/dl (1.7-2.4); Phosphorus 2.5 mg/dl (2.5-4.9)
--- NOTE | 2024-12-18 11:21 | Pharmacy Report ---
Pharmacy Glycemic Short Note 2 - Date of Service December 18, 2024 - Glycemic Short BSG Results (Last 24 hours): 12/17/24 12/17/24 12/17/24 11:35 16:28 20:31 Glucose POC Glucose 138 H 129 H 122 H 12/18/24 12/18/24 06:04 07:04 Glucose 172 H POC Glucose 163 H OUTPATIENT ANTIDIABETIC REGIMEN: * Toujeo 100units SQ BID * aspart insulin 60 units with breakfast and supper, 20 units with lunch * Jardiance 25mg po daily * metformin ER 1500mg po QAM HbA1c: 12.7% on 12-11-24 ASSESSMENT: 12/18: * Facundo received 104 units of insulin yesterday, 42 units NPH + 62 units bolus. BSGs were: 503-242-187-122 mg/dL. * Fasting BSG increased to 163 mg/dL this AM. Will increase PM NPH dose slightly this evening. * No change to Novolog as postprandials have been well controlled. 12/16: * 64 year old male admitted 12/15 for SOB secondary to pneumonia and hyperglycemia. Pharmacy was consulted for glycemic management while he is admitted. * BSG on admit was 757 mg/dL, AG was 8, CO2 was 29. A regular insulin bolus of 10units iv x 1 was given and then the drip was started in the ED at 10 units/hr. BSG dropped quickly after starting the drip and it was able to be stopped at ~0030 this morning. (BSG was 164mg/dL). * Due to patient's allergy to Lantus, NPH insulin was initiated this morning at 30units QAM and 18 units with supper (based on data from previous admissions). * A bolus insulin regimen with fairly tight parameters was also started using data from previous admissions. * Jardiance was also restarted by a provider this morning. PLAN FOR INPATIENT GLYCEMIC CONTROL: * Jardiance 25 mg PO AM * Basal insulin * NPH 30 units SC with breakfast * NPH 15 units SC with dinner * Bolus insulin * NovoLog per scale ACHS or Q6hrs while NPO * Goal Range: Low 110 mg/dL - High 140 mg/dL * Correction Factor: 20 mg/dL/unit * Nutritional / Prandial insulin per carb ratio of 1 unit per 4 grams CHO consumed
--- NOTE | 2024-12-18 11:42 | Hospitalist Progress Note ---
Date of Service December 18, 2024 Assessment & Plan (1) Uncontrolled type 2 diabetes mellitus with hyperglycemia: (2) Shortness of breath: (3) Hyperkalemia: (4) Paroxysmal atrial fibrillation: (5) Nonischemic cardiomyopathy: (6) Hypertension: (7) Depression: Plan Pt is a 64yoM with PMHx significant for Nonischemic cardiomyopathy, hypertension, diastolic heart failure, Hx of [place], untreated hep C, diabetes, anxiety and depression, BPH, PVD, medication noncompliance who presented with SOB and was found to have a pneumonia and with hyperglycemia after a recent hospitalization. Hospital Acquired Pneumonia Pt presenting with reoccurrence of SOB Previously treated for influenza infection and CHF exacerbation Leukocytosis, afebrile No increased oxygen requirement Chest XRAY unremarkable CTA chest negative for PE, notes bronchitis, possible RLL pneumonia Procalcitonin negative MRSA nares negative sputum cx not yet obtained Blood Cx x 2 sets NGTD Continue Cefepime and Azithromycin at this time Consider pulm input if not improving Slow daily improvement Hyperglycemia secondary to medication adherence DMII Pt presented with glucose of 757 VBG normal, bicarb normal, no AG UA with glucose, no ketones Home regimen of glargine 100U BID with aspart 60U BID w/ meals, also on jardiance (for HF as well) and metformin Pt without compliance Insulin drip initially, has since been transitioned to SQ insulin Pharmacy Glycemic Consult Continue to monitor Pulmonary Nodules Noted on CTA, stable, followup recommended PCP followup Nonischemic Cardiomyopathy Diastolic Heart Failure Coronary Artery disease Paroxysmal Atrial Fibrillation December 13 2023: Last echo with EF 60-65%, Grade 1 diastolic heart failure Pt previously followed with Dr Monet of [facility] Cardiology: Per last cardiology note cardiac regimen of lasix, spironolactone, lisinopril, metoprolol and a baby aspirin at that time Jardiance added by PCP Pt with non medication noncompliance, should continue on regimen of lasix, spironolactone, lisinopril, metoprolol, baby aspirin and Jardiance on discharge Resumed Lasix, jardiance and lisinopril Resume spironolactone before discharge Will need re-establishment with cardiology for further medication adjustments Monitor volume status, I's and Os Polysubstance abuse (heroin, meth) w/recent use Untreated Hepatitis C Urine drug screen positive for meth, opioids, final confirmatory testing noting elevated levels Hep C testing prelim positive Hep C confirmatory RNA/quantitative ordered and pending at the time of discharge PCP follow up for treatment with Hepatology as needed Encourage cessation of meth/heroin use Mood Disorder Continue home meds Diet: DMII/HH DVT prophylaxis: Lovenox SQ Dispo: PT/OT for further recs Admission and Anticipated Discharge Date Admission Date: December 15, 2024 Subjective Pt was seen laying in bed States still having the cough worked with PT yesterday Otherwise denies acute concerns Review of Systems Review of Systems: All systems reviewed & are unremarkable except as noted in Subjective Physical Exam Physical Exam: General: Alert, oriented. No acute distress HEENT: NC/AT CV: RRR Resp: Breath sounds clear bilaterally, no increased effort of breathing Abdomen:Soft, nontender Extremities: No edema in lower extremities bilaterally. Results & Data Results & Data Vital Signs (Past 12 Hours) Vital Signs Temp Pulse Pulse Resp BP BP Pulse Ox 12/18/24 11:05 36.7 C 63 20 125/68 95 12/18/24 09:18 12/18/24 07:11 58 L 12/18/24 07:03 36.4 C L 57 L 19 109/70 90 12/18/24 03:35 36.4 C L 70 16 124/77 94 12/18/24 00:55 66 O2 Del Method 12/18/24 11:05 Room Air 12/18/24 09:18 Room Air 12/18/24 07:11 12/18/24 07:03 Room Air 12/18/24 03:35 Room Air 12/18/24 00:55
[2024-12-18] MEDS: INSULIN HUMAN NPH SC SCH (17:01)
[2024-12-19 06:45] LABS: Basophils % (auto) 0.9 %; Eosinophils # (auto) 0.29 K/uL (0.00-0.50); Eosinophils % (auto) 2.5 %; Hematocrit (blood only) 50.5 % (42.0-52.0); Hemoglobin 16.7 g/dl (14.0-18.0); Immature Granulocytes % (auto) 1.7 %; Lymphocytes # (auto) 3.34 K/uL (1.20-3.40); Lymphocytes % (auto) 28.9 %; Mean Corpuscular Hemoglobin 28.5 pg (25.0-34.0); Mean Corpuscular Hgb Conc 33.1 g/dL (32.0-36.0); Mean Corpuscular Volume 86.2 fL (80.0-100.0); Mean Platelet Volume 9.8 fL (9.4-12.4); Monocytes # (auto) 0.99 K/uL (0.11-0.59); Monocytes % (auto) 8.6 %; Neutrophils # (auto) 6.62 K/uL (1.40-6.50); Neutrophils % (auto) 57.4 %; Platelet Count 260 K/uL (130-400); RDW Coefficient of Variation 12.8 % (11.5-14.5); RDW Standard Deviation 40.1 fL (36.4-46.3); Red Blood Count 5.86 M/uL (4.70-6.10); White Blood Count 11.54 K/ul (4.8-10.8)
[2024-12-19 07:00] LABS: Albumin Globulin Ratio 1.1 (0.9-2); Albumin Level 3.1 gm/dl (3.4-5.0); BUN Creatinine Ratio 27.9 (10-20); Bilirubin,Total 0.7 mg/dl (0.2-1.0); Calcium 8.4 mg/dl (8.6-10.3); Creatinine Clr Calc Pharmacy 148.4 ml/min; Globulin 2.7 gm/dl (2.5-4.0); Magnesium 2.2 mg/dl (1.7-2.4); Phosphorus 2.5 mg/dl (2.5-4.9); Potassium 4.3 mmol/L (3.5-5.1); Total Protein 5.8 gm/dl (6.0-8.3)
--- NOTE | 2024-12-19 10:05 | Hospitalist Progress Note ---
Date of Service December 19, 2024 Assessment & Plan (1) Uncontrolled type 2 diabetes mellitus with hyperglycemia: (2) Shortness of breath: (3) Hyperkalemia: (4) Paroxysmal atrial fibrillation: (5) Nonischemic cardiomyopathy: (6) Hypertension: (7) Depression: Plan Pt is a 64yoM with PMHx significant for Nonischemic cardiomyopathy, hypertension, diastolic heart failure, Hx of [place], untreated hep C, diabetes, anxiety and depression, BPH, PVD, medication noncompliance who presented with SOB and was found to have a pneumonia and with hyperglycemia after a recent hospitalization. Hospital Acquired Pneumonia Pt presenting with reoccurrence of SOB Previously treated for influenza infection and CHF exacerbation Leukocytosis, afebrile No increased oxygen requirement Chest XRAY unremarkable CTA chest negative for PE, notes bronchitis, possible RLL pneumonia Procalcitonin negative MRSA nares negative sputum cx not yet obtained Blood Cx x 2 sets NGTD Continue Cefepime and Azithromycin (500mg x 3 doses) at this time Consider pulm input if not improving Slow daily improvement- still with slight leukocytosis PT/OT recommending return home Hyperglycemia secondary to medication adherence DMII Pt presented with glucose of 757 VBG normal, bicarb normal, no AG UA with glucose, no ketones Home regimen of glargine 100U BID with aspart 60U BID w/ meals, also on jardiance (for HF as well) and metformin Pt without compliance Insulin drip initially, has since been transitioned to SQ insulin Pharmacy Glycemic Consult Continue to monitor Pulmonary Nodules Noted on CTA, stable, followup recommended on discharge PCP followup Nonischemic Cardiomyopathy Diastolic Heart Failure Coronary Artery disease Paroxysmal Atrial Fibrillation December 13 2023: Last echo with EF 60-65%, Grade 1 diastolic heart failure Pt previously followed with Dr Monet of [facility] Cardiology: Per last cardiology note cardiac regimen of lasix, spironolactone, lisinopril, metoprolol and a baby aspirin at that time Jardiance added by PCP Pt with non medication noncompliance, should continue on regimen of lasix, lisinopril, metoprolol, baby aspirin and Jardiance on discharge Resumed aspirin, Lasix, Jardiance and lisinopril Case discussed with Cardiology Dr Watt on 12/19/24 via TT: recommended continuing the lasix, lisinopril, metoprolol, baby aspirin and Jardiance. Hold the spironolactone with hyperkalemia. Monitor volume status, I's and Os Close Cardiology followup after discharge Polysubstance abuse (heroin, meth) w/recent use Untreated Hepatitis C Urine drug screen positive for meth, opioids, final confirmatory testing noting elevated levels Hep C testing prelim positive Hep C confirmatory RNA/quantitative ordered and pending at the time of discharge PCP follow up for treatment with Hepatology as needed Encourage cessation of meth/heroin use Mood Disorder Continue home meds Diet: DMII/HH DVT prophylaxis: Lovenox SQ Dispo: PT/OT for further recs Admission and Anticipated Discharge Date Admission Date: December 15, 2024 Subjective Pt was seen sitting in a chair near the bed States he felt happy after talking to a friend that he had not been talking to for some time Anxious for discharge Review of Systems Review of Systems: All systems reviewed & are unremarkable except as noted in Subjective Physical Exam Physical Exam: General: Alert, oriented. No acute distress HEENT: NC/AT CV: RRR Resp: Breath sounds clear bilaterally, no increased effort of breathing Abdomen:Soft, nontender Extremities: No edema in lower extremities bilaterally. Results & Data Results & Data Vital Signs (Past 12 Hours) Vital Signs Temp Pulse Pulse Resp BP Pulse Ox O2 Del Method 12/19/24 09:10 60 12/19/24 07:52 Room Air 12/19/24 07:44 36.2 C L 60 18 126/82 92 Room Air 12/19/24 03:41 36.5 C 69 18 125/64 95 Room Air 12/19/24 00:10 63 12/18/24 23:52 36.9 C 60 18 129/67 91 Room Air
[2024-12-19] MEDS: ASPIRIN 81 MG ECTAB PO SCH (20:09)
[2024-12-20 00:23] VITALS: TEMP 98.2
[2024-12-20 06:28] LABS: Basophils # (auto) 0.11 K/uL (0.00-0.20); Basophils % (auto) 1.1 %; Eosinophils # (auto) 0.25 K/uL (0.00-0.50); Eosinophils % (auto) 2.4 %; Hematocrit (blood only) 47.7 % (42.0-52.0); Hemoglobin 16.4 g/dl (14.0-18.0); Immature Granulocytes # (auto) 0.17 K/uL (0.01-0.20); Immature Granulocytes % (auto) 1.6 %; Lymphocytes # (auto) 3.15 K/uL (1.20-3.40); Lymphocytes % (auto) 30.2 %; Mean Corpuscular Hemoglobin 29.5 pg (25.0-34.0); Mean Corpuscular Hgb Conc 34.4 g/dL (32.0-36.0); Mean Corpuscular Volume 85.8 fL (80.0-100.0); Mean Platelet Volume 9.7 fL (9.4-12.4); Monocytes % (auto) 9.6 %; Neutrophils # (auto) 5.74 K/uL (1.40-6.50); Neutrophils % (auto) 55.1 %; Platelet Count 261 K/uL (130-400); RDW Coefficient of Variation 12.6 % (11.5-14.5); RDW Standard Deviation 39.8 fL (36.4-46.3); Red Blood Count 5.56 M/uL (4.70-6.10); White Blood Count 10.42 K/ul (4.8-10.8)
[2024-12-20 06:45] LABS: Albumin Globulin Ratio 1.2 (0.9-2); BUN Creatinine Ratio 24.6 (10-20); Bilirubin,Total 0.6 mg/dl (0.2-1.0); Calcium 8.3 mg/dl (8.6-10.3); Creatinine Clr Calc Pharmacy 145.7 ml/min; Globulin 2.6 gm/dl (2.5-4.0); Magnesium 2.2 mg/dl (1.7-2.4); Phosphorus 2.4 mg/dl (2.5-4.9); Potassium 4.5 mmol/L (3.5-5.1); Total Protein 5.6 gm/dl (6.0-8.3)
[2024-12-20 08:25] VITALS: RESP 20; O2SAT 95
--- NOTE | 2024-12-20 11:45 | Discharge Summary ---
Date of Service December 20, 2024 Admission HPI Per Admitting Provider Patient is 64-year-old male with PMH nonischemic cardiomyopathy, HTN, PVD, CAD, DM II, history medication noncompliance, hepatitis C, history of heroin abuse, methamphetamine abuse, BPH, depression and others listed below presented to ER with complaint of SOB. Per inpatient chart review recent [facility] hospital admission 12/10/2024-12/13/2024 for influenza A, hypoxia, atrial fibrillation RVR. He finished steroid in hospital and prior home dosing of metoprolol succinate 50 mg twice daily was resumed. Patient discharged on 2 additional days Tamiflu, and discharged on Lasix 20 mg daily. Patient was instructed to continue his home spironolactone 25 mg daily, Jardiance 25 mg daily, NovoLog 60 units twice daily M, insulin glargine U-300 100 units twice daily, lisinopril 20 mg daily. *Upon further review patient was not previously on spironolactone for several years and he hasn't been taking the past couple of days. Since being home patient states he continues with deep cough. Reports is sometimes productive of green-colored sputum. Also reports sometimes has flecks of blood. He states this cough has been ongoing for the past week. He does not think the cough has worsened or that has had more productive sputum. States he still feels SOB and has some intermittent chest discomfort with coughing. He doesn't think he has had chills or fevers. Today walking to his mom's house and states tripped and fell and scratched right elbow. Denies hitting head, LOC. Denies dizziness or CP prior to fall. Denies pain to elbow and reports able to fully move elbow. Denies any other injury. He states yesterday had [facility] at home visit and nurse set up his pill box and he took his pills while she was there. States that he didn't take any other of his pills. He also states that he hasn't been taking his insulin or checking his blood sugars at home. Denies N/V/D/C, CALIX, dizziness, syncope, vision changes, neck pain, palpitations, sore throat, rhinorrhea, abdominal pain, paresthesias, extremity weakness, extremity edema, rashes, urinary symptoms. Admission Exam Per Admitting Provider General: no acute distress, obese male Head: normocephalic, atraumatic Eyes: PERRL, EOM's intact, conjunctiva non-injected, anicteric ENT: normal inspection external ears, nose, mucous membranes dry Neck: supple, trachea midline Lungs: diminished breath sounds throughout without noted wheezing, rhonchi or rales. No respiratory distress, 93% on RA CV: RRR, no pretibial edema Abd: normal BS, soft, non-tender Ext: no cyanosis, no calf tenderness Neuro: A&O x 3, no focal deficits noted, flat affect Skin: warm, dry Principal Diagnosis Pneumonia Poorly controlled diabetes mellitus Discharge Exam Constitutional + well hydrated; no acute distress Eyes PERRL, conjunctivae normal, anicteric sclerae ENMT external ear and nose normal, oropharynx normal Respiratory normal respiratory effort, lungs clear to auscultation Cardiovascular Rate/Rhythm: regular rate and regular rhythm Gastrointestinal (Abdomen) normal bowel sounds, soft, nontender, no hepatosplenomegaly Musculoskeletal No pedal edema Neurologic PERRL, EOMI, accommodation nl, no face palsy, no dysarthria Psychiatric A+Ox3, euthymic affect Discharge Data Allergies Allergy/AdvReac Type Severity Reaction Status Date / Time shellfish derived Allergy Severe Swelling Verified 12/15/24 16:12 amoxicillin Allergy Intermediate HIVES Verified 12/15/24 16:12 clavulanic acid Allergy Intermediate HIVES Verified 12/15/24 16:12 permethrin Allergy Intermediate swelling Verified 12/15/24 16:12 shrimp Allergy Intermediate SWELLS Verified 12/15/24 16:12 sulfamethoxazole Allergy Unknown CAN'T Verified 12/15/24 16:12 [From Bactrim] REMEMBER trimethoprim [From Bactrim] Allergy Unknown CAN'T Verified 12/15/24 16:12 REMEMBER insulin glargine AdvReac Severe CHF Verified 12/15/24 16:12 [From Lantus U-100 Insulin] Consultations 12/15/24 16:31 ED Decision to Admit Stat Ordered Studies 12/15/24 12:43 CT head/brain wo con Stat 12/15/24 17:39 CT for pulmonary embolism PE [CT angio chest PE protocol] Urgent ADDENDUM Additional comparison made to CT of 05/18/2023. There is a typographic error in the impression. A follow-up is recommended on or after 05/18/2025. Electronically signed by Siomara Capps 12-18-2024 3:39 PM ADDENDUM END EXAM: CT Angiography Chest With Intravenous Contrast INDICATION: Shortness of breath. TECHNIQUE: Axial computed tomographic angiography images of the chest with intravenous contrast. Sagittal and coronal reformatted images were created and reviewed. This CT exam was performed using one or more of the following dose reduction techniques: automated exposure control, adjustment of the mA and/or kV according to patient size, and/or use of iterative reconstruction technique. MIP reconstructed images were created and reviewed. CONTRAST: 115ml of Optiray 320 was administered intravenously. COMPARISON: 12/11/2023 FINDINGS: Pulmonary arteries: No abnormality noted. No pulmonary embolism. Aorta: No acute change noted. No thoracic aortic aneurysm or dissection. Lungs and pleural spaces: There is airway thickening with subsegmental mucoid impaction and peribronchial infiltrate in the right posterior costophrenic sulcus. There is mild generalized airway thickening versus. No pleural effusion or pneumothorax. Stable 6 mm noncalcified pleural-based nodule in the anterior left upper lobe. S 2 new approximate 4 mm noncalcified left lower lobe nodules are unchanged. Stable 5 mm noncalcified right lower lobe nodule. Stable 8 mm diameter noncalcified pleural-based medial right lower lobe nodule. Heart: Most stable cardiomegaly. No pericardial effusion or right heart strain. Bones/joints: Degenerative changes noted throughout the spine. No acute osseous abnormality seen. Soft tissues: No abnormality noted. Lymph nodes: No abnormality noted. No enlarged lymph nodes. IMPRESSION: 1. No pulmonary embolus noted. 2. Bronchitis with subsegmental mucoid impaction and small focus of right lower lobe pneumonia. 3. Multiple noncalcified pulmonary nodules are stable. Recommend additional follow-up on or after 05/18/2023. Hospital Course (1) Uncontrolled type 2 diabetes mellitus with hyperglycemia: (2) Shortness of breath: (3) Hyperkalemia: (4) Paroxysmal atrial fibrillation: (5) Nonischemic cardiomyopathy: (6) Hypertension: (7) Depression: Plan 64 year old man with PMHx significant for Nonischemic cardiomyopathy, hypertension, diastolic heart failure, Hx of PR, untreated hep C, diabetes, anxiety and depression, BPH, PVD, medication noncompliance who presented with SOB and was found to have a pneumonia and with hyperglycemia after a recent hospitalization. Hospital Acquired Pneumonia Possible secondary bacterial pneumonia after recent Influenza Pt presenting with reoccurrence of SOB Previously treated for influenza infection and CHF exacerbation On admission, he had leukocytosis and was afebrile No increased oxygen requirement Chest XRAY unremarkable CTA chest negative for PE, notes bronchitis, possible RLL pneumonia Procalcitonin negative MRSA nares negative Blood Cx x 2 sets NGTD Patient was treated with Cefepime and Azithromycin. Completed 5 days of antibiotics today Leukocytosis resolved Hyperglycemia secondary to poor medication adherence DMII Pt presented with glucose of 757 VBG normal, bicarb normal, no AG UA with glucose, no ketones Home regimen of glargine 100U BID with aspart 60U BID w/ meals, also on jardiance (for HF as well) and metformin Poor medication adherence Required Insulin drip initially and was later transitioned to SQ insulin Provided extensive DM education today He reports he has enough DM meds and supplies at home Pulmonary Nodules Noted on CTA, stable, followup recommended on discharge PCP followup Nonischemic Cardiomyopathy Diastolic Heart Failure Coronary Artery disease Paroxysmal Atrial Fibrillation December 13 2023: Last echo with EF 60-65%, Grade 1 diastolic heart failure Pt previously followed with Dr Monet of [facility] Cardiology: Per last cardiology note cardiac regimen of lasix, spironolactone, lisinopril, metoprolol and a baby aspirin at that time Jardiance added by PCP Pt with non medication noncompliance, should continue on regimen of lasix, lisinopril, metoprolol, baby aspirin and Jardiance on discharge Resumed aspirin, Lasix, Jardiance and lisinopril Dr Hunt discussed with Cardiology Dr Watt on 12/19/24 via TT: recommended continuing the lasix, lisinopril, metoprolol, baby aspirin and Jardiance. Stop spironolactone for now Close Cardiology followup after discharge Patient reports he has all meds at home Polysubstance abuse (heroin, meth) w/recent use Untreated Hepatitis C Urine drug screen positive for meth, opioids, final confirmatory testing noting elevated levels Hep C testing prelim positive Hep C confirmatory RNA/quantitative no result. PCP to repeat PCP follow up for treatment with Hepatology as needed Counseled regarding cessation of meth/heroin use Mood Disorder Continue home meds Total Time Total Time Spent Total Time Spent (In Minutes): 50 Total Time Includes: Examination of the Patient, Discharge Planning and Medication Reconciliation Discharge Plan Discharge Items Patient Disposition: Home - Self-Care Reason For Visit: HYPERGLYCEMIA, COUGH Discharge Diagnosis: Pneumonia Poorly controlled diabetes mellitus Activity: Resume your previous activity Non-emergency contact: Primary Care Provider Call non-emergency contact if: you have any medication questions and your symptoms worsen Follow-up/Referrals: Willam Fofana, [Primary Care Provider] - (Date & Time 12/25/2024 9:00 AM Provider: Jonna Tovar MD [facility] ) Diet: Carb Consistent or DM2 and Heart Healthy Addtl Attending Provider Instructions: Mr Botello You were hospitalized and managed for the above listed diagnoses. You were treated with antibiotics and your symptoms resolved. Please ensure adherence to your medications and follow up. Please adhere to management of your diabetes as we discussed. It was a pleasure taking care of you. Pending Studies at Discharge: No Stand-Alone Forms: [facility] 2Checkout, Smoking Cessation Medications and DC Order Prescriptions: Continued aspirin 81 mg Tablet,Delayed Release (Dr/Ec) 81 mg PO DAILY Rx Instructions: Pt couldn't confirm nor deny at this date/time. Jardiance 25 mg tablet 25 mg PO DAILY Rx Instructions: Last filled 07/2024 x90 day supply ascorbic acid (vitamin C) [Vitamin C] 500 mg Tablet 500 mg PO DAILY Rx Instructions: Pt couldn't confirm nor deny at this date/time. Multiple Vitamin-Minerals Tablet 1 tab PO DAILY Rx Instructions: Pt couldn't confirm nor deny at this date/time. insulin glargine U-300 conc [Toujeo Max U-300 SoloStar] 300 unit/mL (3 mL) insulin pen 100 unit SUBCUT BID Rx Instructions: Pt states still taking, last filled 07/2024 x90 day supply lisinopril 20 mg tablet 20 mg PO QAM sertraline 100 mg tablet 100 mg PO QAM cyanocobalamin (vitamin B-12) 1,000 mcg capsule 1,000 mcg PO DAILY Qty: 30 0RF Rx Instructions: Pt couldn't confirm nor deny at this date/time. albuterol sulfate 90 mcg/actuation HFA aerosol inhaler 90 mcg INHALATION DAILY PRN (Reason: Wheezing) metformin 750 mg tablet extended release 24 hr 1,500 mg PO DAILY Rx Instructions: Last filled 07/2024 x90 day supply metoprolol succinate 50 mg Tablet Extended Release 24 Hr 50 mg PO BID Qty: 60 0RF furosemide [Lasix] 20 mg tablet 20 mg PO DAILY Qty: 30 0RF Arnuity Ellipta 100 mcg/actuation blister with device 100 mcg INHALATION DAILY insulin aspart U-100 100 unit/mL (3 mL) insulin pen 60 unit SUBCUT BIDWMEAL Discontinued oseltamivir [Tamiflu] 75 mg Capsule 75 mg PO BID Qty: 4 0RF Rx Instructions: Start Date 12/14/23 x2 day supply Discharge Orders: Discharge Order (Routine); Ordered 12/20/24 Ordered By: Tatiana Sommers Admission Data Admit Date/Time: 12/15/24 17:46 Attending Provider: Tatiana Sommers I. Admit Provider: Sonido Starr Primary Care Provider: Willam Fofana Other Providers: Sonido Starr; Basia Hunt Other Interventions: Discharge Summary Assessment (RN) Last Done: 12/20/24 12:11
[2024-12-20 12:12] VITALS: BP 112/64; PULSE 66
== END 2024-12-20 12:44 | disposition home or self-care (01) | DRG 194 ==
LOC: ED 12:16 → EDINP 17:46 → SUATTDRO 17:46 → 2E 19:44

== ENCOUNTER 2025-04-12 23:46 | Inpatient (IN) ==
--- NOTE | 2025-04-13 00:06 | Emergency Department Note ---
ED DC CONDITION Conditon at Discharge Condition at Discharge: Fair Impression & Plan Rhabdomyolysis, Generalized weakness, Acute dehydration, Closed head injury ED Provider Note Name: ELIN ELLISON Age: 64 Sex: Male Arrives Via: Ambulance Informant: Patient, EMS ED Provider: Phil Ruth MD Chief Complaint: Generalized weakness Impression: As per impressions above Medical Decision Makin-year-old gentleman with a complex past medical history arrives for generalized weakness and inability to get out of his bathtub for the last 12 to 24 hours. He is in some mild rhabdo with dehydration on arrival. Workup for possible sepsis obtained however no clear source and at this time I do not feel patient has evidence of severe sepsis or septic shock. Patient was given initial 1 L IV fluid bolus with improvement. I did opt to get a CT of his head given the contusion to the back of the head which is fortunately unremarkable. Other imaging is mostly reassuring. Plan to bring in for further workup evaluation and rehydration. Patient is comfortable with this plan Triage/Nursing Notes reviewed by Me External Chart Review by me: I reviewed the patient's discharge summary from 03/28/2025 discussing past medical history and recent hospitalization stay. Differential:Infection, dehydration, metabolic abnormality, hypo/hyperglycemia, electrolyte disturbance, anemia, hypoxia, cardiac sources, intracerebral event, toxicologic, neurologic, as well as other pathologies. Vital Signs: reviewed and remarkable for mild tachy on arrival Interventions: nss bolus 1 L IV Labs:ED labs Reviewed by me and remarkable for elevated ck Imaging:CT of the head without contrast as per my informal interpretation reveals no intracranial hemorrhage or mass effect. Confirmed by radiologist. 1 view chest x-ray as per my interpretation no infiltrate nor effusion appreciated. EKG:As per my interpretation. Indication weakness. Sinus at 98 bpm with PVC and PAC noted. No overt ischemia. QTc 492. No overt ischemia. Compared to EKG March 27, 2025 no significant change. Cardiac/Tele Monitoring: Cardiac Monitoring: An Order was placed for continuous cardiac monitoring. The monitor shows a rate of 90 with a normal sinus rhythm. Consults:[facility] for [facility] management. Plan: Disposition:Hospitalization. Condition: Fair History of Present Illness: 64-year-old gentleman with extensive past medical history arrives for evaluation of weakness and having spent what he reports his last 24 hours in the bathtub. He notes he got in the bath initially to take a shower and was too weak thus laid down or may have passed out. He spent the next 24 hours periodically turning on the water to warm himself up but unable to get up due to his weakness. States it is a diffuse weakness and has no specific focal deficits. Does note a long history of left facial weakness and states that is unchanged. He denies any current chest pain, shortness of breath, palpitations. He states that his buttocks are a bit sore as this is back in the back of his head. Admits that he was resting his head against the faucet of the tub for several hours. Patient notes that he assumed he was just going to in the tub because no one was coming to save him. Past Medical History:See Below Home Medications:See Below Allergies:See Below Vitals:Blood Pressure: 135/85, Pulse 99, RR 15, T 36.9C, O2 98% on RA Physical Exam: GENERAL: Patient is unwell, ill appearing and in mild distress. Warm to touch. HEAD: AT/NC other than erythema of posterior scalp consistent with laying against tub for many hours RESPIRATORY: No dyspnea. Clear to auscultation and equal bilaterally. CARDIOVASCULAR: Irregular.No murmur appreciated. GASTROINTESTINAL: Abdomen soft, non-tender, no peritonitis. BACK: No midline tenderness, no CVA tenderness EXTREMITIES: Normal motion all extremities, no cyanosis, no edema. NEUROLOGIC: Alert and oriented though possibly slightly confused. Left facial droop which he states is old. Otherwise no focal neurologic deficits appreciated. Mildly slurred speech. Full movement all extremities. SKIN: Erythema posterior head, back and buttocks. He has venous stasis with ulcerations of bilateral lower legs. Bilateral hands and feet consistent with persistent submersion. No sloughing of skin. There is some skin breakdown of the buttocks as well as over sacrum. Mild discoloration of this though no overt ulceration appreciated during this initial examination PSYCH: Appropriate GCS: 15 ED Course: Times/Reassessments: Patient does appear significantly improved after initial IV fluids. He is breathing comfortably no distress. He is agreeable to hospitalization. Phil Ruth MD Past Med/Surg History Problem List (Updated 04/16/25 @ 07:57 by Phil Ruth MD) Closed head injury (Acute) Acute dehydration (Acute) Generalized weakness (Acute) Rhabdomyolysis (Acute) Rhabdomyolysis Cellulitis of both lower extremities Diabetes mellitus due to underlying condition, uncontrolled, with hyperglycemia, with long-term current use of insulin Major depressive disorder Cellulitis (Acute) Chronic venous insufficiency Venous ulcers of both lower extremities Stroke-like symptom Facial droop (Acute) Abdominal pain (Acute) Acute confusion (Acute) Hyperglycemia (Acute) Hyperkalemia Shortness of breath Paroxysmal atrial tachycardia Paroxysmal atrial fibrillation Methamphetamine abuse PAC (premature atrial contraction) Sinus tachycardia Atrial fibrillation with RVR Hypoxia (Acute) Hyperglycemia (Acute) Influenza A (Acute) Diabetic peripheral neuropathy Diabetic neuropathic arthritis Abdominal wall cellulitis (Acute) Foot pain, left (Acute) Cellulitis of finger, right (Acute) Hyperglycemia (Acute) Burn of abdominal wall (Acute) Unable to care for self (Acute) Generalized muscle weakness (Acute) Ambulatory dysfunction (Acute) Noncompliance w/medication treatment due to intermit use of medication BPH (benign prostatic hyperplasia) Anxiety and depression Bronchitis Uncontrolled type 2 diabetes mellitus with hyperglycemia (Acute) Ambulatory dysfunction (Acute) Generalized weakness (Acute) Acute hyperglycemia (Acute) Morbid obesity with BMI of 40.0-44.9, adult Acute hyperglycemia (Acute) ALEJANDRA (obstructive sleep apnea) Hyperglycemia Nonischemic cardiomyopathy (Chronic) "prior EF 30% per Epic records. echo 02/2015- EF 40-45%" DM type 2 (diabetes mellitus, type 2) (Chronic) H/O TB (tuberculosis) (Chronic) H/O toxoplasmosis (Chronic) Hepatitis C (Chronic) Hypertension (Chronic) Colon polyp (Chronic) "TVA polyp on colonoscopy 09/2014" H/O colonoscopy (Chronic) "11/2015- diverticulosis" S/P cardiac cath (Chronic) "for abnormal stress test. cath 03/18/2015-essentially normal coronaries with no obstructive disease " Colon polyp Confusion (Acute) Hyperglycemia due to type 2 diabetes mellitus (Acute) DVT prophylaxis Polyneuropathy Peripheral vascular disease Depression Bilateral cellulitis of lower leg (Acute) Fatigue (Acute) Encephalopathy Hypercapnic respiratory failure Varicose veins of bilateral lower extremities with other complications Morbid obesity H/O drug abuse Medical History Peripheral neuropathy Acute dehydration Accidental fall tripped over dog bed, hit back of head, checked in the ED poss concussion Dysequilibrium Hepatitis C Diabetes mellitus, type 2 Depression Anxiety Hypertension Surgical History History of colonoscopy History of umbilical hernia repair x2 History of tooth extraction History of wisdom tooth extraction History of cardiac cath 03/2015 @ [facility], no stents follows with Dr. Monet Family History Mother Family history of diabetes mellitus Father Family history of diabetes mellitus Other No family history of adverse response to anesthesia Social History Smoking Status: Never smoker Tobacco Type: Cigarettes Cigarettes Per Day: Says he occasionally will smoke a cigar.; Second Hand Exposure: No; Do You Dip or Chew Tobacco: No; Hx Alcohol Use: Yes Alcohol type: beer and hard liquor Hx Substance Use: Yes Non-Prescribed Medications: Methamphetamines Last Used Substance: Days (ago) Last Used Substance Other:: 2 days ago Preferred Language: Turkish Communication Ability: Effective Hearing Ability: Normal Extruding Department Supervisor Required: No Beliefs That Will Affect Care: None marital status: Single Current Living Situation: Alone Current Living Situation Comment: lives alone Feels Safe at Home: Yes Gender Identity: Male Assistive Devices: None Allergies Allergies Allergy/AdvReac Type Severity Reaction Status Date / Time shellfish derived Allergy Severe Swelling Verified 03/30/25 13:50 amoxicillin Allergy Intermediate HIVES Verified 03/30/25 13:50 clavulanic acid Allergy Intermediate HIVES Verified 03/30/25 13:50 permethrin Allergy Intermediate swelling Verified 03/30/25 13:50 shrimp Allergy Intermediate SWELLS Verified 03/30/25 13:50 sulfamethoxazole Allergy Unknown CAN'T Verified 03/30/25 13:50 [From Bactrim] REMEMBER trimethoprim [From Bactrim] Allergy Unknown CAN'T Verified 03/30/25 13:50 REMEMBER insulin glargine AdvReac Severe CHF PER Verified 03/30/25 13:50 [From Lantus U-100 Insulin] [facility] Home Meds Home Medications Medication Instructions Recorded Confirmed aspirin 81 mg tablet,delayed 81 mg PO DAILY 08/01/22 04/13/25 release empagliflozin 25 mg tablet 25 mg PO QAM 08/01/22 04/13/25 (Jardiance) ascorbic acid (vitamin C) 500 mg 1,000 mg PO DAILY 09/21/22 04/13/25 tablet (Vitamin C) multivitamin with minerals 1 tab PO DAILY 09/21/22 04/13/25 (Multiple Vitamin-Minerals tablet) lisinopril 20 mg tablet 20 mg PO DAILY 10/10/23 04/13/25 sertraline 100 mg tablet 100 mg PO QAM 10/10/23 04/13/25 insulin glargine U-300 conc 300 100 unit subcut BID 10/14/23 04/13/25 unit/mL (3 mL) subcutaneous pen (Toujeo Max U-300 SoloStar) albuterol sulfate 90 mcg/actuation 90 mcg inhalation Q4H PRN Wheezing 06/06/24 04/13/25 aerosol inhaler fluticasone furoate 100 100 mcg inhalation DAILY 08/05/24 04/13/25 mcg/actuation blister powder for inhalation (Arnuity Ellipta) insulin aspart U-100 100 unit/mL 20 - 60 unit subcut DIRECTED 12/15/24 04/13/25 (3 mL) subcutaneous pen nitroglycerin 0.4 mg sublingual 0.4 mg sublingual DIRECTED PRN 02/28/25 04/13/25 tablet Chest Pain tamsulosin 0.4 mg capsule 0.4 mg PO QAM 02/28/25 04/13/25 Bacillus coagulans-inulin 1 1 cap PO DAILY 03/02/25 04/13/25 billion cell-250 mg capsule bupropion HCl 300 mg 24 hr tablet, 300 mg PO DAILY 03/02/25 04/13/25 extended release cinnamon bark 500 mg capsule 500 mg PO DAILY ##0 03/02/25 04/13/25 (Cinnamon) furosemide 20 mg tablet (Lasix) 40 mg PO QAM 03/23/25 04/13/25 spironolactone 25 mg tablet 25 mg PO DAILY 04/13/25 04/13/25 Previous Rx's Medication Instructions Recorded cyanocobalamin (vitamin B-12) 1,000 mcg PO DAILY #30 caps 05/12/24 1,000 mcg capsule metoprolol succinate 50 mg 50 mg PO BID #60 tabs 12/13/24 tablet,extended release 24 hr metformin 750 mg tablet,extended 750 mg PO DAILY #30 tabs 03/06/25 release 24 hr L.acidop,casei,lactis,rham-B.lact,guanakito 1 cap PO DAILY #30 caps 03/09/25 625 mg (10 billion cell) capsule (Advanced Probiotic) Results & Data (ED) Vital Signs Vital Signs - 24 hr 04/12/25 23:55 Pulse Rate 99 H Laboratory Data 04/15/25 06:47 04/15/25 06:47 Lab Results 04/13/25 04/13/25 04/13/25 Range/Units 00:00 00:25 02:34 WBC 11.43 H (4.8-10.8) K/ul RBC 5.46 (4.70-6.10) M/uL Hgb 15.7 (14.0-18.0) g/dl Hct 45.7 (42.0-52.0) % MCV 83.7 (80.0-100.0) fL MCH 28.8 (25.0-34.0) pg MCHC 34.4 (32.0-36.0) g/dL RDW Std Deviation 38.7 (36.4-46.3) fL RDW Coeff of Marc 12.8 (11.5-14.5) % Plt Count 212 (130-400) K/uL MPV 9.4 (9.4-12.4) fL Immature Gran % (Auto) 0.6 % Neut % (Auto) 81.9 % Lymph % (Auto) 8.9 % Webster % (Auto) 7.3 % Eos % (Auto) 0.8 % Baso % (Auto) 0.5 % Neut # (Auto) 9.36 H (1.40-6.50) K/uL Lymph # (Auto) 1.02 L (1.20-3.40) K/uL Webster # (Auto) 0.83 H (0.11-0.59) K/uL Eos # (Auto) 0.09 (0.00-0.50) K/uL Baso # (Auto) 0.06 (0.00-0.20) K/uL Immature Gran # (Auto) 0.07 (0.01-0.20) K/uL Sodium 135 L (136-145) mmol/L Potassium 3.4 L (3.5-5.1) mmol/L Chloride 98 (98-107) mmol/L Carbon Dioxide 23 (21-32) mmol/L Anion Gap 14 H (3-11) BUN 12 (6-23) mg/dl Creatinine 0.71 (0.6-1.4) mg/dl Est Cr Clr Drug Dosing 141.6 ml/min eGFR 103.73 BUN/Creatinine Ratio 16.9 (10-20) Glucose 106 H (70-99(Fasting)) mg/dl Lactate 1.8 (0.4-2.0) mmol/L Calcium 8.1 L (8.6-10.3) mg/dl Magnesium 2.0 (1.7-2.4) mg/dl Total Bilirubin 0.9 (0.2-1.0) mg/dl Direct Bilirubin 0.3 H (0-0.2) mg/dl AST 104 H (13-39) U/L ALT 35 (7-52) U/L Alkaline Phosphatase 67 (34-104) U/L Total Creatine Kinase 2293 H (30-223) U/L Troponin I High Sens 21.9 H 24.6 H (0-20) pg/ml Total Protein 6.0 (6.0-8.3) gm/dl Albumin 3.0 L (3.4-5.0) gm/dl Procalcitonin 0.45 (0-0.5) ng/ml SARS-CoV-2 (PCR) NEGATIVE (Negative) Influenza Type A (PCR) Negative (Neg) Influenza Type B (PCR) Negative (Neg) RSV (RT-PCR) Negative (Neg) Administered Medications Acetaminophen (Acetaminophen 325 Mg Tab) 650 mg PO Q4H PRN PRN Reason: Pain or Fever Stop: 05/13/25 05:20 Last Admin: 04/14/25 21:25 Dose: 650 mg Documented By: Admin: 04/13/25 20:53 Dose: 650 mg Documented By: Admin: 04/13/25 11:14 Dose: 650 mg Documented By: ULICES Ascorbic Acid (Ascorbic Acid 500 Mg Tab) 1,000 mg PO DAILY MULU Stop: 05/13/25 08:59 Last Admin: 04/15/25 08:57 Dose: 1,000 mg Documented By: [facility] Admin: 04/14/25 08:20 Dose: 1,000 mg Documented By: Admin: 04/13/25 08:40 Dose: 1,000 mg Documented By: ULICES Aspirin (Aspirin 81 Mg Ectab) 81 mg PO DAILY MULU Stop: 05/13/25 08:59 Last Admin: 04/15/25 08:56 Dose: 81 mg Documented By: Admin: 04/14/25 08:21 Dose: 81 mg Documented By: Admin: 04/13/25 08:40 Dose: 81 mg Documented By: ULICSE Bupropion HCl (Bupropion Xl 300 Mg Tabcr) 300 mg PO DAILY MULU Stop: 05/13/25 08:59 Last Admin: 04/15/25 08:57 Dose: 300 mg Documented By: Admin: 04/14/25 08:19 Dose: 300 mg Documented By: Admin: 04/13/25 08:40 Dose: 300 mg Documented By: ULICES Cyanocobalamin (Cyanocobalamin (B-12) 500 Mcg Tablet) 1,000 mcg PO DAILY [facility] Stop: 05/13/25 08:59 Last Admin: 04/15/25 08:56 Dose: 1,000 mcg Documented By: Admin: 04/14/25 08:20 Dose: 1,000 mcg Documented By: [facility] Admin: 04/13/25 08:40 Dose: 1,000 mcg Documented By: ULICES Doxycycline Hyclate (Doxycycline Hyclate 100 Mg Cap) 100 mg PO BID@1100,2300 [facility] Stop: 04/18/25 12:59 Last Admin: 04/15/25 21:09 Dose: 100 mg Documented By: Admin: 04/15/25 12:44 Dose: 100 mg Documented By: Admin: 04/15/25 01:11 Dose: 100 mg Documented By: Admin: 04/14/25 11:53 Dose: 100 mg Documented By: Admin: 04/13/25 23:51 Dose: 100 mg Documented By: Admin: 04/13/25 14:21 Dose: 100 mg Documented By: ULICES Empagliflozin (Empagliflozin 25 Mg Tab) 25 mg PO QAM MULU Stop: 05/13/25 08:59 Last Admin: 04/13/25 09:45 Dose: Not Given Documented By: ULICES Enoxaparin Sodium (Enoxaparin Inj 40 Mg/0.4 Ml Syr) 40 mg SQ QAM MULU Stop: 05/14/25 09:59 Last Admin: 04/15/25 08:54 Dose: 40 mg Documented By: Admin: 04/14/25 10:38 Dose: 40 mg Documented By: PIPER Fluticasone Furoate (Fluticasone Furoate 100mcg 14 Puffs/Inhaler) 1 puffs INH DAILY MULU Stop: 05/13/25 08:59 Last Admin: 04/15/25 11:13 Dose: 1 puffs Documented By: Admin: 04/14/25 08:22 Dose: 1 puffs Documented By: Admin: 04/13/25 08:42 Dose: 1 puffs Documented By: ULICES Furosemide (Furosemide 40 Mg Tab) 40 mg PO QAM [facility] Stop: 05/14/25 09:59 Last Admin: 04/15/25 08:54 Dose: 40 mg Documented By: Admin: 04/14/25 10:38 Dose: 40 mg Documented By: PIPER Ceftriaxone Sodium (Rocephin) 2,000 mg in 50 mls @ 100 mls/hr IV Q24H [facility] Stop: 04/20/25 05:59 Last Infusion: 04/16/25 06:38 Dose: Infused Documented By: Admin: 04/16/25 06:11 Dose: 100 mls/hr Documented By: Infusion: 04/15/25 05:38 Dose: Infused Documented By: Admin: 04/15/25 05:06 Dose: 100 mls/hr Documented By: Infusion: 04/14/25 06:31 Dose: Infused Documented By: Admin: 04/14/25 05:59 Dose: 100 mls/hr Documented By: Infusion: 04/13/25 07:19 Dose: Infused Documented By: Admin: 04/13/25 06:31 Dose: 100 mls/hr Documented By: AES Insulin Aspart (Insulin Aspart Per Unit Charge) 0 units SC ACHS MULU Stop: 05/13/25 07:29 Last Admin: 04/15/25 21:08 Dose: 3 units Documented By: KAYLEE Co-signed By: ZURDO Admin: 04/15/25 17:52 Dose: 12 units Documented By: PIPER Co-signed By: VENESSA Admin: 04/15/25 12:48 Dose: Not Given Documented By: Admin: 04/15/25 09:02 Dose: 8 units Documented By: PIPER Co-signed By: VENESSA Admin: 04/14/25 21:26 Dose: 10 units Documented By: MAKAYLA Co-signed By: ZAN Admin: 04/14/25 17:33 Dose: 17 units Documented By: PIPER Co-signed By: SHAN Admin: 04/14/25 12:36 Dose: 18 units Documented By: PIPER Co-signed By: VENESSA Admin: 04/14/25 08:28 Dose: 10 units Documented By: PIPER Co-signed By: PHAN Admin: 04/13/25 20:50 Dose: Not Given Documented By: Admin: 04/13/25 17:41 Dose: 6 units Documented By: ULICES Co-signed By: VENESSA Admin: 04/13/25 12:43 Dose: 7 units Documented By: ULICES Co-signed By: SHAN Admin: 04/13/25 08:46 Dose: 9 units Documented By: ULICES Co-signed By: VENESSA Insulin Human NPH (Insulin Human Nph) 10 units SC QDD MULU Stop: 05/13/25 16:29 Last Admin: 04/15/25 17:53 Dose: 10 units Documented By: PIPER Co-signed By: VENESSA Admin: 04/14/25 17:33 Dose: 10 units Documented By: PIPER Co-signed By: SHAN Admin: 04/13/25 17:38 Dose: 10 units Documented By: ULICES Co-signed By: VENESSA Insulin Human NPH (Insulin Human Nph) 25 units SC QDB MULU Stop: 05/15/25 08:29 Last Admin: 04/15/25 09:02 Dose: 25 units Documented By: PIPER Co-signed By: VENESSA Lactobacillus Acidophilus (Advanced Probiotic 625 Mg Capsule) 1,250 mg PO DAILY MULU Stop: 05/13/25 08:59 Last Admin: 04/15/25 08:56 Dose: 1,250 mg Documented By: Admin: 04/14/25 08:19 Dose: 1,250 mg Documented By: Admin: 04/13/25 08:40 Dose: 1,250 mg Documented By: ULICES Lisinopril (Lisinopril 20 Mg Tab) 20 mg PO DAILY MULU Stop: 05/13/25 08:59 Last Admin: 04/13/25 08:41 Dose: 20 mg Documented By: ULICES Metoprolol Succinate (Metoprolol Succ 50mg Ext Rel Tab) 50 mg PO BID [facility] Stop: 05/13/25 08:59 Last Admin: 04/15/25 21:09 Dose: 50 mg Documented By: Admin: 04/15/25 08:57 Dose: 50 mg Documented By: Admin: 04/14/25 21:25 Dose: 50 mg Documented By: Admin: 04/14/25 08:20 Dose: 50 mg Documented By: Admin: 04/13/25 20:53 Dose: 50 mg Documented By: Admin: 04/13/25 08:41 Dose: 50 mg Documented By: ULICES Multivitamins/Minerals (Cerovite Adv Formula Tab) 1 tab PO DAILY MULU Stop: 05/13/25 08:59 Last Admin: 04/15/25 08:56 Dose: 1 tab Documented By: Admin: 04/14/25 08:20 Dose: 1 tab Documented By: Admin: 04/13/25 08:40 Dose: 1 tab Documented By: ULICES Sertraline HCl (Sertraline Hcl 100 Mg Tablet) 100 mg PO QAM [facility] Stop: 05/13/25 08:59 Last Admin: 04/15/25 08:53 Dose: 100 mg Documented By: Admin: 04/13/25 08:41 Dose: 100 mg Documented By: ULICES Spironolactone (Spironolactone 25 Mg Tab) 25 mg PO DAILY MULU Stop: 05/13/25 08:59 Last Admin: 04/15/25 08:55 Dose: 25 mg Documented By: Admin: 04/14/25 08:22 Dose: 25 mg Documented By: Admin: 04/13/25 10:15 Dose: Not Given Documented By: ULICES Tamsulosin HCl (Tamsulosin Hcl 0.4 Mg Cap) 0.4 mg PO QAM [facility] Stop: 05/13/25 08:59 Last Admin: 04/15/25 08:57 Dose: 0.4 mg Documented By: Admin: 04/14/25 08:19 Dose: 0.4 mg Documented By: Admin: 04/13/25 08:41 Dose: 0.4 mg Documented By: ULICES Discontinued Medications Enoxaparin Sodium (Enoxaparin Inj 40 Mg/0.4 Ml Syr) 40 mg SQ Q24H MULU Stop: 05/13/25 08:59 Last Admin: 04/13/25 09:45 Dose: Not Given Documented By: ULICES Furosemide (Furosemide 40 Mg Tab) 40 mg PO QAM MULU Stop: 05/13/25 08:59 Last Admin: 04/13/25 09:45 Dose: Not Given Documented By: ULICES Sodium Chloride (Nss) 500 mls @ 999 mls/hr IV .Q31M MULU Stop: 04/13/25 00:30 Last Infusion: 04/13/25 05:25 Dose: Infused Documented By: Admin: 04/13/25 00:29 Dose: 999 mls/hr Documented By: DAYANNA Sodium Chloride (Nss) 1,000 mls @ 200 mls/hr IV .Q5H MULU Stop: 04/16/25 05:20 Last Infusion: 04/13/25 13:10 Dose: Infused Documented By: Admin: 04/13/25 11:12 Dose: 200 mls/hr Documented By: Infusion: 04/13/25 11:12 Dose: Infused Documented By: Admin: 04/13/25 06:30 Dose: 200 mls/hr Documented By: ANDREW Insulin Human NPH (Insulin Human Nph) 20 units SC QDB MULU Stop: 05/13/25 07:29 Last Admin: 04/14/25 08:29 Dose: 20 units Documented By: PIPER Co-signed By: PHAN Admin: 04/13/25 08:42 Dose: 20 units Documented By: ULICES Co-signed By: VENESSA Potassium Chloride (Potassium Chloride Crtab 20 Meq Tabcr) 20 meq PO NOW STA Stop: 04/13/25 03:44 Last Admin: 04/13/25 04:02 Dose: 20 meq Documented By: MED Discharge Plan Visit Data Chief Complaint: Fall Stated Complaint: Fall, Syncope?, Nausea, Back Pain ED Provider: Phil Ruth Discharge Problem: Rhabdomyolysis, Generalized weakness, Acute dehydration, Closed head injury Patient Disposition: Admitted As Inpatient Condition: Fair Discharge Instructions Interventions: ED Discharge Assessment Last Done: 04/13/25 04:35 Discharge Problem: Rhabdomyolysis Qualifiers: Rhabdomyolysis type: traumatic Encounter type: initial encounter Qualified Code(s): T79.6XXA - Traumatic ischemia of muscle, initial encounter Closed head injury Qualifiers: Encounter type: initial encounter Qualified Code(s): S09.90XA - Unspecified injury of head, initial encounter
[2025-04-13] MEDS: SODIUM CHLORIDE 0.9% 500 ML IV SCH (00:29)
[2025-04-13 00:46] LABS: Hematocrit (blood only) 45.7 % (42.0-52.0); Hemoglobin 15.7 g/dl (14.0-18.0); Immature Granulocytes # (auto) 0.07 K/uL (0.01-0.20); Immature Granulocytes % (auto) 0.6 %; Mean Corpuscular Hemoglobin 28.8 pg (25.0-34.0); Mean Corpuscular Volume 83.7 fL (80.0-100.0); Platelet Count 212 K/uL (130-400); RDW Standard Deviation 38.7 fL (36.4-46.3); Red Blood Count 5.46 M/uL (4.70-6.10); White Blood Count 11.43 K/ul (4.8-10.8)
[2025-04-13 01:05] LABS: Anion Gap 14.0 (3-11); Blood Urea Nitrogen 12.0 mg/dl (6-23); Calcium 8.1 mg/dl (8.6-10.3); Carbon Dioxide 23.0 mmol/L (21-32); Chloride 98.0 mmol/L (98-107); Creatinine Clr Calc Pharmacy 141.6 ml/min; Glucose 106.0 mg/dl (70-99(Fasting)); Potassium 3.4 mmol/L (3.5-5.1); Sodium 135.0 mmol/L (136-145)
[2025-04-13 01:19] LABS: Influenza A virus by PCR Negative (Neg); Influenza B virus by PCR Negative (Neg); SARS CoV2 RNA(COVID-19) Ceph NEGATIVE (Negative)
[2025-04-13 01:21] LABS: Alanine Aminotransferase 35.0 U/L (7-52); Alkaline Phosphatase 67.0 U/L (34-104); Bilirubin,Total 0.9 mg/dl (0.2-1.0); Creatine Kinase 2293.0 U/L (30-223); Magnesium 2.0 mg/dl (1.7-2.4); Total Protein 6.0 gm/dl (6.0-8.3)
--- NOTE | 2025-04-13 01:40 | CT Scan Report ---
EXAM: CT head/brain wo con CLINICAL HISTORY: Weakness, head injury. TECHNIQUE: Axial non-contrast CT scan of the brain was performed from the skull base to the high parietal region. One of the following dose reduction techniques was utilized for this exam: Automated exposure control, adjustment of the mA and/or kV according to patient size, use of iterative reconstruction. CTDI: 36.67 mGy, DLp: 62.41 mGy-cm COMPARISON: 03/02/2025 FINDINGS: Re- demonstration of encephalomalacic changes in right anterior temporal region, left fronto-parietal craniotomy. Suggestion of old fracture of right parietotemporal bone There are ill-defined [id number] areas noted in the subcortical and periventricular white matter bilaterally, suggestive of microvascular ischemic changes. The ventricular system, cortical sulci and basal cisterns are prominent consistent with senile changes. The rest of visualized brain parenchyma shows normal appearance. No midline shifts or deformity. No intracerebral or extracerebral hematoma. Normal CT appearance of the posterior fossa structures, namely the cerebellar hemispheres, brainstem and cerebellar peduncles. No definite calvarium fractures. The scanned paranasal sinuses are clear. Bilateral mastoid air cells appear unremarkable. IMPRESSION: 1. No acute intracranial hemorrhage at present. 2. Re demonstration of encephalomalacic changes in the right anterior temporal region, left fronto-parietal craniotomy. Suggestion of an old fracture of the right parietotemporal bone. 3. Chronic microvascular ischemic changes and senile cortical atrophy, unchanged. Electronically signed by Felicinao Suh 04-13-2025 01:40 AM
--- NOTE | 2025-04-13 01:47 | XRay Report ---
EXAM: XR chest 1V portable CLINICAL HISTORY: Sepsis TECHNIQUE: An X-ray image of the chest is obtained in AP projection. COMPARISON: prior X-ray and CT angiography of the chest on 12/15/2024 FINDINGS: Pulmonary Parenchyma: Lungs are clear bilaterally. No evidence of consolidation, collapse, or focal opacities. No pulmonary nodules are identified. No evidence of pleural effusion or pleural thickening. The right basal lung pneumonia seen in the previous CT is not visualized on X-ray basis; CT assessment is recommended for follow-up if indicated clinically. Heart and Mediastinum: Heart size and shape are normal. No mediastinal widening or masses. No hilar or mediastinal lymphadenopathy. Bony Thorax: Bony thorax appears intact without fractures or deformities. Soft Tissues: Soft tissues overlying the chest wall are unremarkable. IMPRESSION: - No evidence of consolidation, collapse, or focal opacities. - No interval changes as compared to the prior X-ray study. - The right basal lung pneumonia seen in the previous CT is not visualized on X-ray basis; CT assessment is recommended for follow-up if indicated clinically. Electronically signed by Feliciano Suh 04-13-2025 01:47 AM
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
[2025-04-13] MEDS: POTASSIUM CHLORIDE CRTAB 20 MEQ TABCR PO STA (04:02)
[2025-04-13] MEDS ORDERED: GLUCOSE 10 TAB/TUBE PO PRN (05:21)
[2025-04-13] MEDS ORDERED: GLUCAGON FOR INJ 1 MG VIAL SQ PRN (05:21)
[2025-04-13] MEDS ORDERED: POLYETHYLENE (MIRALAX) 17 GM PACK PO PRN (05:21)
[2025-04-13] MEDS ORDERED: CARBOHYDRATES FOR HYPOGLYCEMIA PO PRN (05:21)
[2025-04-13] MEDS ORDERED: NITROGLYCERIN SL 0.4 MG/TAB TAB SL PRN (05:21)
[2025-04-13] MEDS ORDERED: ALBUTEROL HFA 8 GM INHALER INH PRN (05:21)
[2025-04-13] MEDS ORDERED: PHARMACY GLYCEMIC MGMT CONSULT PRN (05:21)
[2025-04-13] MEDS ORDERED: DEXTROSE 50% 50 ML SYRINGE IV PRN (05:21)
[2025-04-13] MEDS ORDERED: GLUCOSE 40% GEL 15 GM TUBE PO PRN (05:21)
[2025-04-13] MEDS: SODIUM CHLORIDE 0.9% 1,000 ML IV SCH (06:30)
[2025-04-13] MEDS: cefTRIAXone SODIUM 2,000 MG/50 ML BAG IV SCH (06:31)
[2025-04-13 07:44] LABS: Hematocrit (blood only) 44.5 % (42.0-52.0); Hemoglobin 15.3 g/dl (14.0-18.0); Immature Granulocytes # (auto) 0.07 K/uL (0.01-0.20); Immature Granulocytes % (auto) 0.7 %; Mean Corpuscular Hemoglobin 28.9 pg (25.0-34.0); Mean Corpuscular Volume 84.0 fL (80.0-100.0); Platelet Count 192 K/uL (130-400); RDW Standard Deviation 39.6 fL (36.4-46.3); Red Blood Count 5.30 M/uL (4.70-6.10); White Blood Count 9.84 K/ul (4.8-10.8)
[2025-04-13 07:47] LABS: Hemoglobin A1C 11.0 % (4.5-5.6)
[2025-04-13 08:00] LABS: Anion Gap 13.0 (3-11); Blood Urea Nitrogen 12.0 mg/dl (6-23); Calcium 7.9 mg/dl (8.6-10.3); Carbon Dioxide 22.0 mmol/L (21-32); Chloride 100.0 mmol/L (98-107); Creatine Kinase 1652.0 U/L (30-223); Creatinine Clr Calc Pharmacy 158.0 ml/min; Glucose 123.0 mg/dl (70-99(Fasting)); Magnesium 1.9 mg/dl (1.7-2.4); Potassium 3.4 mmol/L (3.5-5.1); Sodium 135.0 mmol/L (136-145)
[2025-04-13] MEDS: CEROVITE ADV FORMULA TAB PO SCH (08:40)
[2025-04-13] MEDS: ASPIRIN 81 MG ECTAB PO SCH (08:40)
[2025-04-13] MEDS: ADVANCED PROBIOTIC 625 MG CAPSULE PO SCH (08:40)
[2025-04-13] MEDS: CYANOCOBALAMIN (B-12) 500 MCG TABLET PO SCH (08:40)
[2025-04-13] MEDS: ASCORBIC ACID 500 MG TAB PO SCH (08:40)
[2025-04-13] MEDS: METOPROLOL SUCC 50MG EXT REL TAB PO SCH (08:41)
[2025-04-13] MEDS: SERTRALINE HCL 100 MG TABLET PO SCH (08:41)
[2025-04-13] MEDS: TAMSULOSIN HCL 0.4 MG CAP PO SCH (08:41)
[2025-04-13] MEDS: INSULIN HUMAN NPH SC SCH ×2 (08:42→17:38)
[2025-04-13] MEDS: FLUTICASONE FUROATE 100MCG 14 PUFFS/INHALER INH SCH (08:42)
[2025-04-13] MEDS: INSULIN ASPART PER UNIT CHARGE SC SCH (08:46)
[2025-04-13] MEDS ORDERED: INULIN PO SCH (09:00)
[2025-04-13] MEDS ORDERED: BACILLUS COAGULANS PO SCH (09:00)
[2025-04-13] MEDS ORDERED: LANTUS PER UNIT CHARGE SQ SCH (09:00)
[2025-04-13] MEDS: ENOXAPARIN INJ 40 MG/0.4 ML SYR SQ SCH (09:45)
[2025-04-13] MEDS: EMPAGLIFLOZIN 25 MG TAB PO SCH (09:45)
[2025-04-13] MEDS: FUROSEMIDE 40 MG TAB PO SCH (09:45)
[2025-04-13] MEDS: SPIRONOLACTONE 25 MG TAB PO SCH (10:15)
[2025-04-13] MEDS: ACETAMINOPHEN 325 MG TAB PO PRN (11:14)
[2025-04-13] MEDS ORDERED: MICONAZOLE NITRATE POWDER 85 GM EXT PRN (11:19)
[2025-04-13 11:56] LABS: Appearance Urine Clear (Clear); Bacteria Urine Automated None Seen (None Seen); Cast Urine Automated 0-2 /lpf (0-2); Epithelial Cell Urine Auto 0-2 /hpf (0-2); Glucose Urine UA Negative (Negative); RBC Urine Automated 0-2 /hpf (0-2); WBC Urine Automated 0-5 /hpf (0-5)
--- NOTE | 2025-04-13 12:30 | CT Scan Report ---
HISTORY: Right rib fracture. Right sided chest pain. TECHNIQUE: CT imaging of the chest was performed without contrast. Images are presented in axial, sagittal, and coronal reformats. COMPARISON: Chest CT dated 12/15/2024. FINDINGS: Lungs: Right lower lobe consolidation consistent with pneumonia. Mild left basilar consolidation also consistent with pneumonia. No pneumothorax or effusion. Central tracheobronchial tree is patent. Heart/Mediastinum: Mild cardiomegaly. Coronary artery calcifications are present. Mildly enlarged mediastinal lymph nodes are likely reactive. Thoracic esophagus is unremarkable. Vasculature: No thoracic aortic aneurysm. Mild aortic atherosclerotic vascular disease. Main pulmonary artery is normal in caliber. Soft Tissues: Mild gynecomastia. Upper Abdomen: Unremarkable. Bones: Mild to moderate degenerative changes of the spine.No acute displaced right sided rib fractures. IMPRESSION: * Patchy airspace opacities involving the lower lobes, right greater than left. Findings consistent with pneumonia. * No acute displaced right sided rib fractures identified. No pneumothorax. * Mild cardiomegaly. Coronary artery calcifications. * Mildly enlarged mediastinal and hilar lymph nodes are likely reactive. * Additional chronic and/or incidental findings as above. ACT 112: Positive. There are findings on this exam that require communication between the performing entity and the patient following Patient Test Result Information Act ([place] ACT 112) guidelines. Electronically signed by Yobani Yang 04-13-2025 12:30 PM
--- NOTE | 2025-04-13 12:53 | Hospitalist Progress Note ---
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 Rhabdomyolysis Mechanical Fall Slipped in the tub and could not get up Seems stayed in tub more than 24 hours per patient CPK 2293 on admission, downtrended Started on IV fluid with improvement in CK Encourage oral hydration Daily CK PT/OT evaluation Pneumonia Chest CT done on 04/13 shows patchy airspace opacities involving lower lobes, right greater than left consistent with pneumonia. Started on ceftriaxone and doxycycline; continue Flutter valve Incentive spirometry Acute urinary retention s/p asencio placement- Found to have urinary retention with placement of Asencio on 04/13/2025; plan to trial of void in next few days after patient's mentation improve. on flomax-continue Mild elevation troponin Initial troponin 21 repeat is 24 EKG okay. No chest pain. Mostly from rhabdo Monitor for chest pain Type 2 Diabetes Will hold home p.o. medications On high doses of insulin at home On recent last admission requiring less insulin. Will place on Lantus 20 twice daily and sliding scale Glycemic pharmacy consult Hypertension On metoprolol succinate and diuretics and lisinopril, monitor Depression And anxiety Zoloft Chronic ulcers of both lower extremities Recently treated for cellulitis Empirically placed on Rocephin Wound care History of paroxysmal atrial fibrillation Single episode Following with cardiology On metoprolol succinate Advised for fluid balance If recurs plan for initiating anticoagulation per cardiology Will monitor Nonischemic cardiomyopathy Normalized right ventricular function On lisinopril, spironolactone, and Jardiance Nonobstructive CAD On aspirin, beta-kemal Leg edema and sores On Lasix and spironolactone Monitor for volume overload while getting fluids Follow-up with wound care Substance use disorder with methamphetamines Counseling as outpatient Hepatitis C Plan for treatment per hepatology DVT prophylaxis Lovenox Disposition Med/telemetry Full code. Time spent evaluating patient, direct bedside care, chart review, placing orders, interpretation of diagnostic studies, discussion with consultants, patient, and family members, as well as other required patient management activities is 50 minutes Please note the above document was generated using voice recognition software. It may contain grammatical, syntax or spelling errors. Any formal questions or concerns about the content, text or information contained within the body of this dictation should be directly addressed to the provider for clarification Admission and Anticipated Discharge Date Admission Date: April 13, 2025 Subjective Patient seen and examined at bedside. Patient sleepy but awake able to voice. Reports pain all over his body. Reports pain on right chest wall on deep inspiration. Review of Systems Review of Systems: All systems reviewed & are unremarkable except as noted in Subjective Physical Exam Physical Exam: General-Awake; not in distress. Head- atraumatic Eyes- PERRL. ENT- oropharynx clear Neck- supple, no JVD. Lungs- clear to auscultation no wheezing or crackles Heart- regular rhythm; no murmur, no gallop. Abdomen- normal bowel sounds, soft, nontender, no distension Extremities- no pretibial edema, superficial wounds seen on b/l shins Neuro- alert, oriented PERRL, no dysarthria; moves extremities Results & Data Results & Data Vital Signs (Past 12 Hours) Vital Signs Temp Pulse Pulse Pulse Resp BP BP 04/13/25 12:23 37.7 C H 04/13/25 11:43 37.9 C H 80 20 134/74 04/13/25 08:00 89 04/13/25 08:00 04/13/25 07:40 37.8 C H 97 H 32 H 117/62 04/13/25 06:06 04/13/25 05:41 36.8 C 87 18 149/93 H 04/13/25 04:54 04/13/25 04:35 101 H 24 161/100 H 04/13/25 04:06 107 H 24 04/13/25 03:43 106 H 21 04/13/25 03:07 104 H 27 H 04/13/25 02:53 102 H 20 04/13/25 02:15 103 H 20 04/13/25 02:05 105 H 24 BP Pulse Ox O2 Del Method 04/13/25 12:23 04/13/25 11:43 99 Room Air 04/13/25 08:00 04/13/25 08:00 Room Air 04/13/25 07:40 95 Room Air 04/13/25 06:06 Room Air 04/13/25 05:41 94 Room Air 04/13/25 04:54 137/75 04/13/25 04:35 95 Room Air 04/13/25 04:06 119/70 93 04/13/25 03:43 133/78 98 04/13/25 03:07 132/85 95 04/13/25 02:53 151/81 H 97 Room Air 04/13/25 02:15 163/94 H 95 04/13/25 02:05 138/118 H 93
--- NOTE | 2025-04-13 13:19 | Pharmacy Report ---
Pharmacy Glycemic Short Note 2 - Date of Service April 13, 2025 - Glycemic Short BSG Results (Last 24 hours): 04/13/25 04/13/25 04/13/25 00:25 05:29 07:03 Glucose 106 H 123 H POC Glucose 98 04/13/25 12:02 Glucose POC Glucose 148 H OUTPATIENT ANTIDIABETIC REGIMEN: * Toujeo 100 units SC BID * Novolog TID with meals (60/20/60 units) * Empagliflozin, metformin ASSESSMENT: * 65 yo T2DM who presented for evaluation of weakness s/p fall in bathtub. * Patient is well known to the Pharmacy glycemic service. Tends to require significantly less insulin here compared to home usage. * Patient reports an TJ to Lantus, thus NPH will be used for basal insulin while admitted. * Initial insulin dosing has been based on what patient tolerated during previous admission. PLAN FOR INPATIENT GLYCEMIC CONTROL: * Hold outpatient oral diabetes medications * Basal insulin * NPH 20 units SQ qAM + 10 units SQ qPM * Bolus insulin * NovoLog per scale ACHS or Q6hrs while NPO * Goal Range: Low 110 mg/dL - High 140 mg/dL * Correction Factor: 20 mg/dL/unit * Nutritional / Prandial insulin per carb ratio of 1 unit per 6 grams CHO consumed
[2025-04-13] MEDS: DOXYCYCLINE HYCLATE 100 MG CAP PO SCH (14:21)
[2025-04-14 07:55] LABS: Hematocrit (blood only) 41.8 % (42.0-52.0); Hemoglobin 14.2 g/dl (14.0-18.0); Immature Granulocytes # (auto) 0.07 K/uL (0.01-0.20); Immature Granulocytes % (auto) 0.7 %; Mean Corpuscular Hemoglobin 28.5 pg (25.0-34.0); Mean Corpuscular Volume 83.8 fL (80.0-100.0); Platelet Count 210 K/uL (130-400); RDW Standard Deviation 40.2 fL (36.4-46.3); Red Blood Count 4.99 M/uL (4.70-6.10); White Blood Count 9.47 K/ul (4.8-10.8)
[2025-04-14 08:12] LABS: Anion Gap 6.0 (3-11); Blood Urea Nitrogen 12.0 mg/dl (6-23); Calcium 7.8 mg/dl (8.6-10.3); Carbon Dioxide 24.0 mmol/L (21-32); Chloride 104.0 mmol/L (98-107); Creatine Kinase 334.0 U/L (30-223); Creatinine Clr Calc Pharmacy 178.9 ml/min; Glucose 170.0 mg/dl (70-99(Fasting)); Potassium 3.8 mmol/L (3.5-5.1); Sodium 134.0 mmol/L (136-145)
[2025-04-14] MEDS: ENOXAPARIN INJ 40 MG/0.4 ML SYR SQ SCH (10:38)
[2025-04-14] MEDS: FUROSEMIDE 40 MG TAB PO SCH (10:38)
--- NOTE | 2025-04-14 11:08 | Hospitalist Progress Note ---
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 Rhabdomyolysis Mechanical Fall Slipped in the tub and could not get up Seems stayed in tub more than 24 hours per patient CPK 2293 on admission, downtrended Started on IV fluid with improvement in CK Encourage oral hydration PT/OT evaluation Pneumonia Chest CT done on 04/13 shows patchy airspace opacities involving lower lobes, right greater than left consistent with pneumonia. Started on ceftriaxone and doxycycline; continue for 7 days Flutter valve Incentive spirometry Acute urinary retention s/p asencio placement- Found to have urinary retention with placement of Asencio on 04/13/2025; Trial of void today Mild elevation troponin Initial troponin 21 repeat is 24 EKG okay. No chest pain. Mostly from rhabdo Monitor for chest pain Type 2 Diabetes Will hold home p.o. medications On high doses of insulin at home On recent last admission requiring less insulin. Will place on Lantus 20 twice daily and sliding scale Glycemic pharmacy consult Hypertension On metoprolol succinate and diuretics and lisinopril, monitor Depression And anxiety Zoloft Chronic ulcers of both lower extremities Recently treated for cellulitis Empirically placed on Rocephin Wound care History of paroxysmal atrial fibrillation-EKG personally reviewed from 04/14/2025; patient has sinus rhythm with frequent PACs. Telemetry also does not show any signs of A-fib. Continue on metoprolol Nonischemic cardiomyopathy Normalized right ventricular function On lisinopril, spironolactone, and Jardiance Nonobstructive CAD On aspirin, beta-kemal Leg edema and sores On Lasix and spironolactone Monitor for volume overload while getting fluids Follow-up with wound care Substance use disorder with methamphetamines Counseling as outpatient Hepatitis C Plan for treatment per hepatology DVT prophylaxis Lovenox Disposition Med/telemetry Full code. Time spent evaluating patient, direct bedside care, chart review, placing orders, interpretation of diagnostic studies, discussion with consultants, patient, and family members, as well as other required patient management activities is 50 minutes Please note the above document was generated using voice recognition software. It may contain grammatical, syntax or spelling errors. Any formal questions or concerns about the content, text or information contained within the body of this dictation should be directly addressed to the provider for clarification Admission and Anticipated Discharge Date Admission Date: April 13, 2025 Subjective Patient seen and examined at bedside. He is sleepy but awake eval by voice. Reports generalized weakness. Review of Systems Review of Systems: All systems reviewed & are unremarkable except as noted in Subjective Physical Exam Physical Exam: General-Awake; not in distress. Lungs- clear to auscultation no wheezing or crackles Heart- regular rhythm; no murmur, no gallop. Abdomen- normal bowel sounds, soft, nontender, no distension Extremities- no pretibial edema, superficial wounds seen on b/l shins Neuro- alert, oriented PERRL, no dysarthria; moves extremities Results & Data Results & Data Vital Signs (Past 12 Hours) Vital Signs Temp Pulse Pulse Resp BP BP Pulse Ox 04/14/25 09:26 82 04/14/25 08:00 36.8 C 73 18 131/67 96 04/14/25 07:33 04/14/25 03:51 36.5 C 72 18 131/83 93 04/13/25 23:54 74 04/13/25 23:46 36.6 C 69 18 128/67 93 O2 Del Method 04/14/25 09:26 04/14/25 08:00 Room Air 04/14/25 07:33 Room Air 04/14/25 03:51 Room Air 04/13/25 23:54 04/13/25 23:46 Room Air
[2025-04-15 07:08] LABS: Hematocrit (blood only) 41.4 % (42.0-52.0); Hemoglobin 14.4 g/dl (14.0-18.0); Immature Granulocytes # (auto) 0.09 K/uL (0.01-0.20); Immature Granulocytes % (auto) 1.5 %; Mean Corpuscular Hemoglobin 29.7 pg (25.0-34.0); Mean Corpuscular Volume 85.4 fL (80.0-100.0); Platelet Count 257 K/uL (130-400); RDW Standard Deviation 41.1 fL (36.4-46.3); Red Blood Count 4.85 M/uL (4.70-6.10); White Blood Count 6.03 K/ul (4.8-10.8)
[2025-04-15 07:28] LABS: Anion Gap 2.0 (3-11); Blood Urea Nitrogen 11.0 mg/dl (6-23); Calcium 8.2 mg/dl (8.6-10.3); Carbon Dioxide 31.0 mmol/L (21-32); Chloride 107.0 mmol/L (98-107); Creatinine Clr Calc Pharmacy 166.7 ml/min; Glucose 155.0 mg/dl (70-99(Fasting)); Potassium 4.3 mmol/L (3.5-5.1); Sodium 140.0 mmol/L (136-145)
[2025-04-15] MEDS: INSULIN HUMAN NPH SC SCH (09:02)
--- NOTE | 2025-04-15 10:04 | Hospitalist Progress Note ---
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 Rhabdomyolysis Mechanical Fall Slipped in the tub and could not get up Seems stayed in tub more than 24 hours per patient CPK 2293 on admission, downtrended Started on IV fluid with improvement in CK Encourage oral hydration PT/OT evaluation; will likely need rehab- patient is agreeable Pneumonia Chest CT done on 04/13 shows patchy airspace opacities involving lower lobes, right greater than left consistent with pneumonia. Started on ceftriaxone and doxycycline; continue for 7 days Flutter valve Incentive spirometry Acute urinary retention s/p asencio placement- Found to have urinary retention with placement of Asencio on 04/13/2025; Trial of void successful on 04/14/2025 Mild elevation troponin Initial troponin 21 repeat is 24 EKG okay. No chest pain. Monitor for chest pain Type 2 Diabetes Will hold home p.o. medications On high doses of insulin at home On recent last admission requiring less insulin. Will place on Lantus 20 twice daily and sliding scale Glycemic pharmacy consult Hypertension On metoprolol succinate and diuretics and lisinopril, monitor Depression And anxiety Zoloft Chronic ulcers of both lower extremities Recently treated for cellulitis Empirically placed on Rocephin Wound care History of paroxysmal atrial fibrillation-EKG personally reviewed from 04/14/2025; patient has sinus rhythm with frequent PACs. Telemetry also does not show any signs of A-fib. Continue on metoprolol Nonischemic cardiomyopathy Normalized right ventricular function On lisinopril, spironolactone, and Jardiance Nonobstructive CAD On aspirin, beta-kemal Leg edema and sores On Lasix and spironolactone Monitor for volume overload while getting fluids Follow-up with wound care Substance use disorder with methamphetamines Counseling as outpatient Hepatitis C Plan for treatment per hepatology DVT prophylaxis Lovenox Disposition Med/telemetry Full code. Time spent evaluating patient, direct bedside care, chart review, placing orders, interpretation of diagnostic studies, discussion with consultants, patient, and family members, as well as other required patient management ac tivities is 50 minutes Please note the above document was generated using voice recognition software. It may contain grammatical, syntax or spelling errors. Any formal questions or concerns about the content, text or information contained within the body of this dictation should be directly addressed to the provider for clarification Admission and Anticipated Discharge Date Admission Date: April 13, 2025 Subjective Patient seen and examined at bedside. He is comfortable; not in distress. Denies any pain or discomfort vital signs are stable. no significant events overnight Review of Systems Review of Systems: All systems reviewed & are unremarkable except as noted in Subjective Physical Exam Physical Exam: General-Awake; not in distress. Lungs- clear to auscultation no wheezing or crackles Heart- regular rhythm; no murmur, no gallop. Abdomen- normal bowel sounds, soft, nontender, no distension Extremities- no pretibial edema, superficial wounds seen on b/l shins Neuro- alert, oriented PERRL, no dysarthria; moves extremities Results & Data Results & Data Vital Signs (Past 12 Hours) Vital Signs Temp Pulse Pulse Resp BP Pulse Ox O2 Del Method 04/15/25 09:27 66 04/15/25 07:48 36.7 C 61 18 114/71 98 Room Air 04/15/25 07:22 Room Air 04/15/25 03:51 36.3 C L 69 18 126/76 93 Room Air 04/15/25 02:23 69 04/14/25 23:43 36.5 C 81 18 119/74 97 Room Air
--- NOTE | 2025-04-15 12:05 | Electrocardiogram Report ---
Test Reason : Blood Pressure : */* mmHG Vent. Rate : 67 BPM Atrial Rate : 67 BPM P-R Int : 210 ms QRS Dur : 88 ms QT Int : 462 ms P-R-T Axes : 76 78 39 degrees QTcB Int : 488 ms Sinus rhythm with 1st degree A-V block with occasional Premature ventricular complexes and Premature atrial complexes Low voltage QRS Cannot rule out Anterior infarct , age undetermined Abnormal ECG When compared with ECG of 14-Apr-2025 06:08, (unconfirmed) Minimal criteria for Anterior infarct are now Present Confirmed by Rolando Linares ([id number]) on 04/15/2025 12:05:00 PM Referred By: REFERRED SELF Confirmed By: Rolando Linares
--- NOTE | 2025-04-15 13:16 | Electrocardiogram Report ---
Test Reason : Blood Pressure : */* mmHG Vent. Rate : 88 BPM Atrial Rate : 77 BPM P-R Int : * ms QRS Dur : 82 ms QT Int : 410 ms P-R-T Axes : * 78 58 degrees QTcB Int : 496 ms Sinus rhythm with frequent Premature atrial complexes Abnormal ECG When compared with ECG of 12-Apr-2025 23:55, (unconfirmed) Premature atrial complexes are now Present Confirmed by Rolando Linares ([id number]) on 04/15/2025 1:16:35 PM Referred By: REFERRED SELF Confirmed By: Rolando Linares
--- NOTE | 2025-04-15 13:20 | Pharmacy Report ---
Pharmacy Glycemic Short Note 2 - Date of Service April 15, 2025 - Glycemic Short BSG Results (Last 24 hours): 04/14/25 04/14/25 04/14/25 17:05 20:18 20:20 Glucose POC Glucose 200 H 306 H* 269 H 04/14/25 04/15/25 04/15/25 20:40 06:47 08:04 Glucose 155 H POC Glucose 278 H 153 H 04/15/25 12:08 Glucose POC Glucose 136 H OUTPATIENT ANTIDIABETIC REGIMEN: * Toujeo 100 units SC BID * Novolog TID with meals (60/20/60 units) * Empagliflozin, metformin ASSESSMENT: 04/15: * Facundo received 85 units of SC insulin yesterday (30 units basal + 55 units bolus). Experienced significant post prandial BSG elevation. * Will tighten Novolog carb coverage to 4. Patient has tolerated this in the past. * Will also increase AM dose of NPH by ~25%, which will have most profound effect on dinner/HS values. 04/13: * 65 yo T2DM who presented for evaluation of weakness s/p fall in bathtub. * Patient is well known to the Pharmacy glycemic service. Tends to require sig nificantly less insulin here compared to home usage. * Patient reports an TJ to Lantus, thus NPH will be used for basal insulin while admitted. * Initial insulin dosing has been based on what patient tolerated during previous admission. PLAN FOR INPATIENT GLYCEMIC CONTROL: * Hold outpatient oral diabetes medications * Basal insulin * NPH 25 units SQ qAM + 10 units SQ qPM * Bolus insulin * NovoLog per scale ACHS or Q6hrs while NPO * Goal Range: Low 110 mg/dL - High 140 mg/dL * Correction Factor: 20 mg/dL/unit * Nutritional / Prandial insulin per carb ratio of 1 unit per 4 grams CHO consumed
--- NOTE | 2025-04-15 22:08 | Electrocardiogram Report ---
Test Reason : Blood Pressure : */* mmHG Vent. Rate : 98 BPM Atrial Rate : 98 BPM P-R Int : 158 ms QRS Dur : 94 ms QT Int : 386 ms P-R-T Axes : 69 86 37 degrees QTcB Int : 492 ms Sinus rhythm with occasional Premature ventricular complexes and Premature atrial complexes Low voltage QRS Prolonged QT Abnormal ECG When compared with ECG of 27-Mar-2025 06:32, Premature ventricular complexes are now Present Premature atrial complexes are now Present NE interval has decreased Criteria for Septal infarct are no longer Present Nonspecific T wave abnormality no longer evident in Lateral leads Confirmed by Rolando Linares ([id number]) on 04/15/2025 10:08:21 PM Referred By: Confirmed By: Rolando Linares
--- NOTE | 2025-04-16 10:11 | Hospitalist Progress Note ---
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 Rhabdomyolysis Mechanical Fall Slipped in the tub and could not get up Seems stayed in tub more than 24 hours per patient CPK 2293 on admission, downtrended Started on IV fluid with improvement in CK Encourage oral hydration PT/OT evaluation; needs rehab- patient is agreeable Pneumonia Chest CT done on 04/13 shows patchy airspace opacities involving lower lobes, right greater than left consistent with pneumonia. Started on ceftriaxone and doxycycline; continue for 7 days Flutter valve Incentive spirometry Acute urinary retention s/p asencio placement- Found to have urinary retention with placement of Asencio on 04/13/2025; Trial of void successful on 04/14/2025 Mild elevation troponin Initial troponin 21 repeat is 24 EKG okay. No chest pain. Monitor for chest pain Type 2 Diabetes Will hold home p.o. medications On high doses of insulin at home On recent last admission requiring less insulin. on Lantus 20 twice daily and sliding scale Glycemic pharmacy consult Hypertension On metoprolol succinate and diuretics and lisinopril, monitor Depression And anxiety Zoloft Chronic ulcers of both lower extremities Recently treated for cellulitis Empirically placed on Rocephin Wound care History of paroxysmal atrial fibrillation-EKG personally reviewed from 04/14/2025; patient has sinus rhythm with frequent PACs. Telemetry also does not show any signs of A-fib. Continue on metoprolol Nonischemic cardiomyopathy Normalized right ventricular function On lisinopril, spironolactone, and Jardiance Nonobstructive CAD On aspirin, beta-kemal Leg edema and sores On Lasix and spironolactone Monitor for volume overload while getting fluids Follow-up with wound care Substance use disorder with methamphetamines Counseling as outpatient Hepatitis C Plan for treatment per hepatology DVT prophylaxis Lovenox Disposition Med/telemetry Full code. Time spent evaluating patient, direct bedside care, chart review, placing orders, interpretation of diagnostic studies, discussion with consultants, patient, and family members, as well as other required patient management activities is 50 minutes Please note the above document was generated using voice recognition software. It may contain grammatical, syntax or spelling errors. Any formal questions or concerns about the content, text or information contained within the body of this dictation should be directly addressed to the provider for clarification Admission and Anticipated Discharge Date Admission Date: April 13, 2025 Subjective Patient seen and examined at bedside. He is sitting up on a chair; he is comfortable denies any pain or discomfort. He continues to report feeling weak overall. Review of Systems Review of Systems: All systems reviewed & are unremarkable except as noted in Subjective Physical Exam Physical Exam: General-Awake; not in distress. Lungs- clear to auscultation no wheezing or crackles Heart- regular rhythm; no murmur, no gallop. Abdomen- normal bowel sounds, soft, nontender, no distension Extremities- no pretibial edema, superficial wounds seen on b/l shins Neuro- alert, oriented PERRL, no dysarthria; moves extremities Results & Data Results & Data Vital Signs (Past 12 Hours) Vital Signs Temp Pulse Pulse Resp BP BP Pulse Ox 04/16/25 08:15 36.5 C 67 20 131/90 94 04/16/25 07:33 72 04/16/25 04:26 36.4 C L 60 18 115/69 95 04/15/25 23:24 36.3 C L 79 18 128/73 95 04/15/25 23:18 67 O2 Del Method 04/16/25 08:15 Room Air 04/16/25 07:33 04/16/25 04:26 Room Air 04/15/25 23:24 Room Air 04/15/25 23:18
[2025-04-17] MEDS: ONDANSETRON INJ 2 MG/ML 2 ML VIAL IV STA (00:58)
[2025-04-17 07:19] LABS: Anion Gap 5.0 (3-11); Blood Urea Nitrogen 14.0 mg/dl (6-23); Calcium 8.2 mg/dl (8.6-10.3); Carbon Dioxide 29.0 mmol/L (21-32); Chloride 107.0 mmol/L (98-107); Creatinine Clr Calc Pharmacy 173.0 ml/min; Glucose 171.0 mg/dl (70-99(Fasting)); Potassium 3.8 mmol/L (3.5-5.1); Sodium 141.0 mmol/L (136-145)
--- NOTE | 2025-04-17 07:33 | Pharmacy Report ---
Pharmacy Glycemic Short Note 2 - Date of Service April 17, 2025 - Glycemic Short BSG Results (Last 24 hours): 04/16/25 04/16/25 04/16/25 07:47 12:04 17:03 Glucose POC Glucose 164 H 225 H 177 H 04/16/25 04/17/25 20:23 05:35 Glucose 171 H POC Glucose 143 H OUTPATIENT ANTIDIABETIC REGIMEN: * Toujeo 100 units SC BID * Novolog TID with meals (60/20/60 units) * Empagliflozin, metformin ASSESSMENT: 04/17: * Facundo received 81 units of SC insulin yesterday (35 units basal + 46 units bolus), blood sugars improved with increase in basal and tightening CR since 04/15. * Continue current insulin dosing at this time. 04/15: * Facundo received 85 units of SC insulin yesterday (30 units basal + 55 units bolus). Experienced significant post prandial BSG elevation. * Will tighten Novolog carb coverage to 4. Patient has tolerated this in the past. * Will also increase AM dose of NPH by ~25%, which will have most profound effect on dinner/HS values. 04/13: * 65 yo T2DM who presented for evaluation of weakness s/p fall in bathtub. * Patient is well known to the Pharmacy glycemic service. Tends to require significantly less insulin here compared to home usage. * Patient reports an TJ to Lantus, thus NPH will be used for basal insulin while admitted. * Initial insulin dosing has been based on what patient tolerated during previous admission. PLAN FOR INPATIENT GLYCEMIC CONTROL: * Hold outpatient diabetes medications * Basal insulin * NPH 25 units SQ qAM + 10 units SQ qPM * Bolus insulin * NovoLog per scale ACHS or Q6hrs while NPO * Goal Range: Low 110 mg/dL - High 140 mg/dL * Correction Factor: 20 mg/dL/unit * Nutritional / Prandial insulin per carb ratio of 1 unit per 4 grams CHO consumed
--- NOTE | 2025-04-17 12:41 | Hospitalist Progress Note ---
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 Rhabdomyolysis Mechanical Fall Slipped in the tub and could not get up Seems stayed in tub more than 24 hours per patient CPK 2293 on admission, downtrended Started on IV fluid with improvement in CK Encourage oral hydration PT/OT evaluation; needs rehab- patient is agreeable-[facility] rehab Pneumonia Chest CT done on 04/13 shows patchy airspace opacities involving lower lobes, right greater than left consistent with pneumonia. Continue on ceftriaxone and doxycycline; continue for 7 days Flutter valve Incentive spirometry Acute urinary retention s/p asencio placement- Found to have urinary retention with placement of Asencio on 04/13/2025; Trial of void successful on 04/14/2025 Mild elevation troponin Initial troponin 21 repeat is 24 EKG okay. No chest pain. Monitor for chest pain Type 2 Diabetes Will hold home p.o. medications On high doses of insulin at home On recent last admission requiring less insulin. on Lantus 20 twice daily and sliding scale Glycemic pharmacy consult Hypertension On metoprolol succinate and diuretics and lisinopril, monitor Depression And anxiety Zoloft Chronic ulcers of both lower extremities Recently treated for cellulitis Empirically placed on Rocephin Wound care History of paroxysmal atrial fibrillation-EKG personally reviewed from 04/14/2025; patient has sinus rhythm with frequent PACs. Telemetry also does not show any signs of A-fib. Continue on metoprolol Nonischemic cardiomyopathy Normalized right ventricular function On lisinopril, spironolactone, and Jardiance Nonobstructive CAD On aspirin, beta-kemal Leg edema and sores On Lasix and spironolactone Monitor for volume overload while getting fluids Follow-up with wound care Substance use disorder with methamphetamines Counseling as outpatient Hepatitis C Plan for treatment per hepatology DVT prophylaxis Lovenox Disposition Med/telemetry Full code. Please note the above document was generated using voice recognition software. It may contain grammatical, syntax or spelling errors. Any formal questions or concerns about the content, text or information contained within the body of this dictation should be directly addressed to the provider for clarification Admission and Anticipated Discharge Date Admission Date: April 13, 2025 Subjective Patient seen and examined at bedside. He is comfortable lying on the bed. Reports pain in lower extremities. He reports that he has been working well with PT OT. Review of Systems Review of Systems: All systems reviewed & are unremarkable except as noted in Subjective Physical Exam Physical Exam: General-Awake; not in distress. Lungs- clear to auscultation no wheezing or crackles Heart- regular rhythm; no murmur, no gallop. Abdomen- normal bowel sounds, soft, nontender, no distension Extremities- no pretibial edema, superficial wounds seen on b/l shins Neuro- alert, oriented PERRL, no dysarthria; moves extremities Results & Data Results & Data Vital Signs (Past 12 Hours) Vital Signs Temp Pulse Pulse Resp BP BP Pulse Ox 04/17/25 11:37 36.3 C L 69 20 117/62 91 04/17/25 08:11 36.3 C L 59 L 20 133/73 94 04/17/25 06:48 67 04/17/25 02:50 36.4 C L 67 16 141/85 H 93 O2 Del Method 04/17/25 11:37 Room Air 04/17/25 08:11 Room Air 04/17/25 06:48 04/17/25 02:50 Room Air
[2025-04-18 07:45] LABS: Hematocrit (blood only) 45.7 % (42.0-52.0); Hemoglobin 15.2 g/dl (14.0-18.0); Immature Granulocytes # (auto) 0.09 K/uL (0.01-0.20); Immature Granulocytes % (auto) 1.1 %; Mean Corpuscular Hemoglobin 28.4 pg (25.0-34.0); Mean Corpuscular Volume 85.3 fL (80.0-100.0); Platelet Count 329 K/uL (130-400); RDW Standard Deviation 41.4 fL (36.4-46.3); Red Blood Count 5.36 M/uL (4.70-6.10); White Blood Count 7.84 K/ul (4.8-10.8)
[2025-04-18 07:55] LABS: Anion Gap 4.0 (3-11); Blood Urea Nitrogen 13.0 mg/dl (6-23); Calcium 8.3 mg/dl (8.6-10.3); Carbon Dioxide 30.0 mmol/L (21-32); Chloride 107.0 mmol/L (98-107); Creatinine Clr Calc Pharmacy 176.6 ml/min; Glucose 131.0 mg/dl (70-99(Fasting)); Potassium 3.9 mmol/L (3.5-5.1); Sodium 141.0 mmol/L (136-145)
--- NOTE | 2025-04-18 11:26 | Pharmacy Report ---
Pharmacy Glycemic Short Note 2 - Date of Service April 18, 2025 - Glycemic Short BSG Results (Last 24 hours): 04/17/25 04/17/25 04/17/25 11:54 16:53 20:08 Glucose POC Glucose 165 H 174 H 225 H 04/18/25 04/18/25 07:24 07:48 Glucose 131 H POC Glucose 115 H OUTPATIENT ANTIDIABETIC REGIMEN: * Toujeo 100 units SC BID * Novolog TID with meals (60/20/60 units) * Empagliflozin, metformin ASSESSMENT: 04/18: * Facundo received 73 units of insulin yesterday (35 were basal) * Fasting BSG this AM within goal range, continue current basal regimen. * No changes to NovoLog at this time. He continues on ceftriaxone and PO doxycyline. 04/17: * Facundo received 81 units of SC insulin yesterday (35 units basal + 46 units bolus), blood sugars improved with increase in basal and tightening CR since 04/15. * Continue current insulin dosing at this time. 04/15: * Facundo received 85 units of SC insulin yesterday (30 units basal + 55 units bolus). Experienced significant post prandial BSG elevation. * Will tighten Novolog carb coverage to 4. Patient has tolerated this in the past. * Will also increase AM dose of NPH by ~25%, which will have most profound effect on dinner/HS values. 04/13: * 65 yo T2DM who presented for evaluation of weakness s/p fall in bathtub. * Patient is well known to the Pharmacy glycemic service. Tends to require significantly less insulin here compared to home usage. * Patient reports an TJ to Lantus, thus NPH will be used for basal insulin while admitted. * Initial insulin dosing has been based on what patient tolerated during previous admission. PLAN FOR INPATIENT GLYCEMIC CONTROL: * Hold outpatient diabetes medications * Basal insulin * NPH 25 units SQ qAM + 10 units SQ qPM * Bolus insulin * NovoLog per scale ACHS or Q6hrs while NPO * Goal Range: Low 110 mg/dL - High 140 mg/dL * Correction Factor: 20 mg/dL/unit * Nutritional / Prandial insulin per carb ratio of 1 unit per 4 grams CHO consumed
--- NOTE | 2025-04-18 12:46 | Hospitalist Progress Note ---
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 Rhabdomyolysis Mechanical Fall Slipped in the tub and could not get up Seems stayed in tub more than 24 hours per patient CPK 2293 on admission, downtrended Started on IV fluid with improvement in CK Encourage oral hydration PT/OT evaluation; needs rehab- patient is agreeable-[facility] rehab Pneumonia Chest CT done on 04/13 shows patchy airspace opacities involving lower lobes, right greater than left consistent with pneumonia. Continue on ceftriaxone and doxycycline; continue for 7 days Flutter valve Incentive spirometry Acute urinary retention s/p asencio placement- Found to have urinary retention with placement of Asencio on 04/13/2025; Trial of void successful on 04/14/2025 Mild elevation troponin Initial troponin 21 repeat is 24 EKG okay. No chest pain. Monitor for chest pain Type 2 Diabetes Will hold home p.o. medications On high doses of insulin at home On recent last admission requiring less insulin. on Lantus 20 twice daily and sliding scale Glycemic pharmacy consult Hypertension On metoprolol succinate and diuretics and lisinopril, monitor Depression And anxiety Zoloft Chronic ulcers of both lower extremities Recently treated for cellulitis Empirically placed on Rocephin Wound care History of paroxysmal atrial fibrillation-EKG personally reviewed from 04/14/2025; patient has sinus rhythm with frequent PACs. Telemetry also does not show any signs of A-fib. Continue on metoprolol Nonischemic cardiomyopathy Normalized right ventricular function On lisinopril, spironolactone, and Jardiance Nonobstructive CAD On aspirin, beta-kemal Leg edema and sores On Lasix and spironolactone Monitor for volume overload while getting fluids Follow-up with wound care Substance use disorder with methamphetamines Counseling as outpatient Hepatitis C Plan for treatment per hepatology DVT prophylaxis Lovenox Disposition Awaiting placement to rehab. Full code. Please note the above document was generated using voice recognition software. It may contain grammatical, syntax or spelling errors. Any formal questions or concerns about the content, text or information contained within the body of this dictation should be directly addressed to the provider for clarification Admission and Anticipated Discharge Date Admission Date: April 13, 2025 Subjective Patient seen and examined at bedside. He is comfortable; not in distress. Reports some cramping pain in bilateral lower extremity Review of Systems Review of Systems: All systems reviewed & are unremarkable except as noted in Subjective Physical Exam Physical Exam: General-Awake; not in distress. Lungs- clear to auscultation no wheezing or crackles Heart- regular rhythm; no murmur, no gallop. Abdomen- normal bowel sounds, soft, nontender, no distension Extremities- no pretibial edema, superficial wounds seen on b/l shins Neuro- alert, oriented PERRL, no dysarthria; moves extremities Results & Data Results & Data Vital Signs (Past 12 Hours) Vital Signs Temp Pulse Pulse Resp BP Pulse Ox O2 Del Method 04/18/25 11:28 37.0 C 60 16 150/85 H 94 Room Air 04/18/25 10:55 61 04/18/25 08:08 36.5 C 65 20 111/51 L 93 Room Air 04/18/25 02:28 36.5 C 66 16 112/67 95 Room Air
--- NOTE | 2025-04-18 17:07 | Ultrasound Report ---
Technique: Venous ultrasound evaluation was performed utilizing grayscale, color Doppler and wave form evaluation. Images were also obtained with and without compression Findings: There is apparent superficial venous thrombosis in the medial left calf, extending approximately 8 cm in length The bilateral common femoral, superficial femoral, popliteal, and visualized calf veins demonstrate normal anechoic lumens with full compressibility. Normal flow is seen on color Doppler images. Expected waveforms were produced with augmentation maneuvers Impression: 1. No evidence of deep venous thrombosis 2. Superficial venous thrombosis in the left calf ACT 112: Positive. There are findings on this exam that require communication between the performing entity and the patient following Patient Test Result Information Act ([place] ACT 112) guidelines. Electronically signed by Sukhjinder Leonardo 04-18-2025 5:07 PM
--- NOTE | 2025-04-19 12:18 | Hospitalist Progress Note ---
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 Rhabdomyolysis Mechanical Fall Slipped in the tub and could not get up Seems stayed in tub more than 24 hours per patient CPK 2293 on admission, downtrended Started on IV fluid with improvement in CK Encourage oral hydration PT/OT evaluation; needs rehab- patient is agreeable-[facility] rehab. [id number] done for acute rehab on April 19was not approved for acute rehab; approved for SNF Pneumonia Chest CT done on 04/13 shows patchy airspace opacities involving lower lobes, right greater than left consistent with pneumonia. Continue on ceftriaxone and doxycycline; continue for 7 days Flutter valve Incentive spirometry Left calf superior vein thrombosis: Venous duplex shows superficial vein thrombosis in medial left calf extending approximately 8 cm in length; no DVT seen. I discussed the patient regarding those findings. We discussed options including observation versus anticoagulation. Patient opted for anticoagulation; Eliquis started; plan to treat for 3 months. Acute urinary retention s/p asencio placement- Found to have urinary retention with placement of Asencio on 04/13/2025; Trial of void successful on 04/14/2025 Mild elevation troponin Initial troponin 21 repeat is 24 EKG okay. No chest pain. Monitor for chest pain Type 2 Diabetes Will hold home p.o. medications On high doses of insulin at home On recent last admission requiring less insulin. on Lantus 20 twice daily and sliding scale Glycemic pharmacy consult Hypertension On metoprolol succinate and diuretics and lisinopril, monitor Depression And anxiety Zoloft Chronic ulcers of both lower extremities Recently treated for cellulitis Empirically placed on Rocephin Wound care History of paroxysmal atrial fibrillation-EKG personally reviewed from 04/14/2025; patient has sinus rhythm with frequent PACs. Telemetry also does not show any signs of A-fib. Continue on metoprolol Nonischemic cardiomyopathy Normalized right ventricular function On lisinopril, spironolactone, and Jardiance Nonobstructive CAD On aspirin, beta-kemal Leg edema and sores On Lasix and spironolactone Monitor for volume overload while getting fluids Follow-up with wound care Substance use disorder with methamphetamines Counseling as outpatient Hepatitis C Plan for treatment per hepatology DVT prophylaxis eliquis Disposition Awaiting placement to rehab. Full code. Time spent evaluating patient, direct bedside care, chart review, placing orders, interpretation of diagnostic studies, discussion with consultants, patient, and family members, as well as other required patient management activities is 50 minutes Please note the above document was generated using voice recognition software. It may contain grammatical, syntax or spelling errors. Any formal questions or concerns about the content, text or information contained within the body of this dictation should be directly addressed to the provider for clarification Admission and Anticipated Discharge Date Admission Date: April 13, 2025 Subjective Patient seen and examined at bedside. He continues to report some pain in his bilateral lower extremity. Vital signs are stable. No significant events overnight Review of Systems Review of Systems: All systems reviewed & are unremarkable except as noted in Subjective Physical Exam Physical Exam: General-Awake; not in distress. Lungs- clear to auscultation no wheezing or crackles Heart- regular rhythm; no murmur, no gallop. Abdomen- normal bowel sounds, soft, nontender, no distension Extremities- no pretibial edema, superficial wounds seen on b/l shins Neuro- alert, oriented PERRL, no dysarthria; moves extremities Results & Data Results & Data Vital Signs (Past 12 Hours) Vital Signs Temp Pulse Pulse Resp BP Pulse Ox O2 Del Method 04/19/25 11:46 36.6 C 58 L 20 111/63 92 Room Air 04/19/25 09:18 Room Air 04/19/25 07:51 36.3 C L 65 20 111/61 92 Room Air 04/19/25 05:59 54 L 04/19/25 03:09 36.7 C 63 18 143/84 H 93 Room Air
[2025-04-19] MEDS: APIXABAN 5 MG TABLET PO SCH (20:41)
[2025-04-20 07:19] VITALS: RESP 18
[2025-04-20 07:22] LABS: Hematocrit (blood only) 49.0 % (42.0-52.0); Hemoglobin 16.2 g/dl (14.0-18.0); Immature Granulocytes # (auto) 0.12 K/uL (0.01-0.20); Immature Granulocytes % (auto) 1.3 %; Mean Corpuscular Hemoglobin 28.4 pg (25.0-34.0); Mean Corpuscular Volume 86.0 fL (80.0-100.0); Platelet Count 305 K/uL (130-400); RDW Standard Deviation 42.3 fL (36.4-46.3); Red Blood Count 5.70 M/uL (4.70-6.10); White Blood Count 8.94 K/ul (4.8-10.8)
[2025-04-20 07:40] LABS: Anion Gap 4.0 (3-11); Blood Urea Nitrogen 14.0 mg/dl (6-23); Calcium 8.2 mg/dl (8.6-10.3); Carbon Dioxide 30.0 mmol/L (21-32); Chloride 105.0 mmol/L (98-107); Creatinine Clr Calc Pharmacy 184.3 ml/min; Glucose 177.0 mg/dl (70-99(Fasting)); Potassium 4.2 mmol/L (3.5-5.1); Sodium 139.0 mmol/L (136-145)
--- NOTE | 2025-04-20 10:34 | Pharmacy Report ---
Pharmacy Glycemic Short Note 2 - Date of Service April 20, 2025 - Glycemic Short BSG Results (Last 24 hours): 04/19/25 04/19/25 04/19/25 12:10 16:49 20:18 Glucose POC Glucose 159 H 137 H 148 H 04/20/25 04/20/25 07:01 08:05 Glucose 177 H POC Glucose 161 H OUTPATIENT ANTIDIABETIC REGIMEN: * Toujeo 100 units SC BID * Novolog TID with meals (60/20/60 units) * Empagliflozin, metformin ASSESSMENT: 04/20: * Facundo received 70 units of insulin yesterday (35 were basal) * Fasting BSG this AM acceptable, over all excellent glycemic control this admission compared to previous admissions. No changes to insulin regimen at this time. * Antibiotic course completed, awaiting approval for discharge to [facility]. 04/18: * Facundo received 73 units of insulin yesterday (35 were basal) * Fasting BSG this AM within goal range, continue current basal regimen. * No changes to NovoLog at this time. He continues on ceftriaxone and PO doxycyline. 04/17: * Facundo received 81 units of SC insulin yesterday (35 units basal + 46 units bolus), blood sugars improved with increase in basal and tightening CR since 04/15. * Continue current insulin dosing at this time. 04/15: * Facundo received 85 units of SC insulin yesterday (30 units basal + 55 units bolus). Experienced significant post prandial BSG elevation. * Will tighten Novolog carb coverage to 4. Patient has tolerated this in the past. * Will also increase AM dose of NPH by ~25%, which will have most profound effect on dinner/HS values. 04/13: * 65 yo T2DM who presented for evaluation of weakness s/p fall in bathtub. * Patient is well known to the Pharmacy glycemic service. Tends to require significantly less insulin here compared to home usage. * Patient reports an TJ to Lantus, thus NPH will be used for basal insulin while admitted. * Initial insulin dosing has been based on what patient tolerated during previous admission. PLAN FOR INPATIENT GLYCEMIC CONTROL: * Hold outpatient diabetes medications * Basal insulin * NPH 25 units SQ qAM + 10 units SQ qPM * Bolus insulin * NovoLog per scale ACHS or Q6hrs while NPO * Goal Range: Low 110 mg/dL - High 140 mg/dL * Correction Factor: 20 mg/dL/unit * Nutritional / Prandial insulin per carb ratio of 1 unit per 4 grams CHO consumed
--- NOTE | 2025-04-20 10:53 | Hospitalist Progress Note ---
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 Rhabdomyolysis Mechanical Fall Slipped in the tub and could not get up Seems stayed in tub more than 24 hours per patient CPK 2293 on admission, downtrended Started on IV fluid with improvement in CK Encourage oral hydration PT/OT evaluation; needs rehab- patient is agreeable-awating rehab. [id number] done for acute rehab on April 19was not approved for acute rehab; approved for SNF Pneumonia Chest CT done on 04/13 shows patchy airspace opacities involving lower lobes, right greater than left consistent with pneumonia. Treated with ceftriaxone and doxycycline for 7 days Flutter valve Incentive spirometry Left calf superior vein thrombosis: Venous duplex shows superficial vein thrombosis in medial left calf extending approximately 8 cm in length; no DVT seen. I discussed the patient regarding those findings. We discussed options including observation versus anticoagulation. Patient opted for anticoagulation; Eliquis started; plan to treat for 3 months. Acute urinary retention s/p asencio placement- Found to have urinary retention with placement of Asencio on 04/13/2025; Trial of void successful on 04/14/2025 Mild elevation troponin Initial troponin 21 repeat is 24 EKG okay. No chest pain. Monitor for chest pain Type 2 Diabetes Will hold home p.o. medications On high doses of insulin at home On recent last admission requiring less insulin. on Lantus 20 twice daily and sliding scale Glycemic pharmacy consult Hypertension On metoprolol succinate and diuretics and lisinopril, monitor Depression And anxiety Zoloft Chronic ulcers of both lower extremities Recently treated for cellulitis Empirically placed on Rocephin Wound care History of paroxysmal atrial fibrillation-EKG personally reviewed from 04/14/2025; patient has sinus rhythm with frequent PACs. Telemetry also does not show any signs of A-fib. Continue on metoprolol Nonischemic cardiomyopathy Normalized right ventricular function On lisinopril, spironolactone, and Jardiance Nonobstructive CAD On aspirin, beta-kemal Leg edema and sores On Lasix and spironolactone Monitor for volume overload while getting fluids Follow-up with wound care Substance use disorder with methamphetamines Counseling as outpatient Hepatitis C Plan for treatment per hepatology DVT prophylaxis eliquis Disposition Awaiting placement to rehab. Full code. Please note the above document was generated using voice recognition software. It may contain grammatical, syntax or spelling errors. Any formal questions or concerns about the content, text or information contained within the body of this dictation should be directly addressed to the provider for clarification Admission and Anticipated Discharge Date Admission Date: April 13, 2025 Subjective Patient seen and examined at bedside. He continues to report pain in bilateral lower extremity. Vital signs are stable. No significant events overnight Review of Systems Review of Systems: All systems reviewed & are unremarkable except as noted in Subjective Physical Exam Physical Exam: General-Awake; not in distress. Lungs- clear to auscultation no wheezing or crackles Heart- regular rhythm; no murmur, no gallop. Abdomen- normal bowel sounds, soft, nontender, no distension Extremities- no pretibial edema, superficial wounds seen on b/l shins; improved Neuro- alert, oriented PERRL, no dysarthria; moves extremities Results & Data Results & Data Vital Signs (Past 12 Hours) Vital Signs Temp Pulse Pulse Resp BP Pulse Ox O2 Del Method 04/20/25 09:00 Room Air 04/20/25 07:18 36.6 C 60 18 101/66 98 Room Air 04/20/25 07:11 64 04/20/25 03:31 36.6 C 63 20 124/82 93 Room Air 04/19/25 23:58 36.6 C 64 20 149/85 H 93 Room Air
[2025-04-21 08:05] VITALS: BP 146/92; PULSE 61; TEMP 97.5; O2SAT 92
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
== END 2025-04-21 13:00 | disposition home or self-care (01) | DRG 557 ==
LOC: ED 23:46 → 2N 04-13 03:42

== ENCOUNTER 2025-06-01 20:27 | Inpatient (IN) ==
[2025-06-01 21:54] LABS: Appearance Urine Clear (Clear); Glucose Urine UA 3+ (Negative)
[2025-06-01] MEDS: SODIUM CHLORIDE 0.9% 500 ML IV SCH (22:11)
[2025-06-01] MEDS ORDERED: VANCOMYCIN CONSULT ACTIVE PRN (22:22)
[2025-06-01 22:27] LABS: Hematocrit (blood only) 43.0 % (42.0-52.0); Hemoglobin 14.7 g/dl (14.0-18.0); Immature Granulocytes # (auto) 0.05 K/uL (0.01-0.20); Immature Granulocytes % (auto) 0.6 %; Mean Corpuscular Hemoglobin 29.2 pg (25.0-34.0); Mean Corpuscular Volume 85.5 fL (80.0-100.0); Platelet Count 245 K/uL (130-400); RDW Standard Deviation 41.1 fL (36.4-46.3); Red Blood Count 5.03 M/uL (4.70-6.10); White Blood Count 7.92 K/ul (4.8-10.8)
[2025-06-01] MEDS: CEFEPIME 2000MG 2,000 MG/20 ML SYR IV STA (22:30)
--- NOTE | 2025-06-01 22:31 | Emergency Department Note ---
Impression & Plan Cellulitis, Diabetic peripheral neuropathy, Diabetic foot ulcer, Failure of outpatient treatment, Hyperglycemia due to diabetes mellitus ED Provider Note ED Provider Note NAME: ELIN ELLISON AGE:64 SEX: Male : 1960 ARRIVES VIA: EMS INFORMANT: Patient ED PROVIDER(s): Karen Ramirez DO CHIEF COMPLAINT: Foot ulcer, persistent leg redness and weeping HPI: This is a 64-year-old male presents emergency department via EMS due to concern for a foot ulcer noted by a nail salon personnel and payroll technician today when he went to have his toenails trimmed. He states he did not know that he had an ulcer on his big toe and did not feel any pain. He denies any history of peripheral neuropathy. Does admit to being diabetic and states his blood sugars have been in the 300s. He states he has had lower extremity swelling and redness for several weeks. He has been taking doxycycline over the course of the last week. He states he was on a different antibiotic prior to this. He states his diuretic dosing had recently been decreased and less when his legs became more swelling. He states they swell up to the point of weeping. He states that he had an accidental trip and scraped his leg several weeks ago and since then he has had increased redness as well. He was seen by the wound care clinic and was following their prescribed regimen for bathing with an antibiotic topical agent and wrapping the legs. He denies fevers or chills. PAST MEDICAL HISTORY:See Below PAST SURGICAL HISTORY:See Below FAMILY HISTORY:See Below SOCIAL HISTORY:See Below HOME MEDICATIONS:See Below ALLERGIES:See Below VITALS:See Below PHYSICAL EXAMINATION: GENERAL: alert, well appearing, well nourished, no distress, non-toxic, BMI 38 EYE EXAM: normal conjunctiva, PERRL and EOM's grossly intact OROPHARYNX: no exudate, no erythema, lips, buccal mucosa, and tongue normal and mucous membranes are moist NECK: supple, no nuchal rigidity, no adenopathy, non-tender LUNGS: Clear to auscultation. Normal chest wall mechanics, no w/r/r HEART: no murmurs, S1 normal and S2 normal ABDOMEN: abdomen soft, non-tender, normo-active bowel sounds, no masses, no rebound or guarding. SKIN: no rashes, petechiae, orbruising UPPER EXTREMITIES: upper extremities are grossly normal. FROM, nml pulses b/l. LOWER EXTREMITIES: 2+ b/l pitting edema. FROM, nml pulses b/l. Bilateral lower extremity erythema, left greater than right, ulcerative wound noted on the plantar aspect of the left great toe, small necrotic looking area noted on the right great toe, edema noted at the left foot both dorsal and plantar aspect, no crepitus, healing superficial wounds noted to bilateral lower extremities, no other joint effusions, compartments soft NEURO EXAM: Normal sensorium, cranial nerves II-XII grossly intact, normal speech, no facial droop,nogross weakness of arms, no gross weakness of legs. Gross sensation intact. No ataxia. Vital Signs: reviewed and remarkable Differential Diagnosis: cellulitis, abscess, MRSA infection, DVT, necrotizing fasciitis, dermatitis, drug eruption, DKA, failed outpatient treatment, noncompliance, as well as others were entertained. MEDICAL DECISION MAKING: This is a 64-year-old male who presents to the emergency department with worsening bilateral lower extremity edema, erythema, and newly discovered ulcerative wound to the plantar aspect of the left great toe. Patient was afebrile and hemodynamically stable on arrival. Labs including cultures drawn and sent, IV established, EKG and x-ray of the foot performed at bedside and interpreted by me and the patient was monitored on telemetry. Patient started on IV antibiotics due to concern for an high risk of evolving osteomyelitis. Patient updated on results and plan and verbalized understanding. Patient has been taking doxycycline as an outpatient and thus was failing his outpatient treatment additionally. Patient does report some of his swelling is due to his diuretics being decreased recently as well. Patient was started on gentle IV fluid hydration although was not given large boluses due to concern for risk of worsening edema or evolving CHF. Patient was noted to be hyperglycemic here although no evidence of DKA. Case discussed with the hospitalist team for additional evaluation and management. Consultation(s): 2304: Discussed with Dr. Ben[facility] hospitalist for additional evaluation and management ER Treatment Provided: See below Diagnostics Interpreted By Me: -ECG: Normal sinus at 97, first-degree AV block, normal axis, normal intervals, no acute ST/T wave changes -Cardiac Monitoring: An order was placed for continuous cardiac monitoring. The monitor shows a rate of 98 with normal sinus rhythm. -Laboratory studies: As stated above and show below. -Imaging studies: xr foot: no fx, no subQ emphysema Triage Nursing Note Reviewed Prior/Outside Records Reviewed Past Med/Surg History Problem List (Updated 06/01/25 @ 23:15 by Karen Ramirez DO) Hyperglycemia due to diabetes mellitus (Acute) Failure of outpatient treatment (Acute) Diabetic foot ulcer (Acute) Cellulitis (Acute) Acute dehydration (Acute) Generalized weakness (Acute) Rhabdomyolysis (Acute) Rhabdomyolysis Cellulitis of both lower extremities Diabetes mellitus due to underlying condition, uncontrolled, with hyperglycemia, with long-term current use of insulin Major depressive disorder Cellulitis (Acute) Chronic venous insufficiency Venous ulcers of both lower extremities Stroke-like symptom Facial droop (Acute) Abdominal pain (Acute) Acute confusion (Acute) Hyperglycemia (Acute) Hyperkalemia Shortness of breath Paroxysmal atrial tachycardia Paroxysmal atrial fibrillation Methamphetamine abuse PAC (premature atrial contraction) Sinus tachycardia Atrial fibrillation with RVR Hypoxia (Acute) Hyperglycemia (Acute) Influenza A (Acute) Diabetic peripheral neuropathy (Acute) Diabetic neuropathic arthritis Abdominal wall cellulitis (Acute) Foot pain, left (Acute) Cellulitis of finger, right (Acute) Hyperglycemia (Acute) Burn of abdominal wall (Acute) Unable to care for self (Acute) Generalized muscle weakness (Acute) Ambulatory dysfunction (Acute) Noncompliance w/medication treatment due to intermit use of medication BPH (benign prostatic hyperplasia) Anxiety and depression Bronchitis Uncontrolled type 2 diabetes mellitus with hyperglycemia (Acute) Ambulatory dysfunction (Acute) Generalized weakness (Acute) Acute hyperglycemia (Acute) Morbid obesity with BMI of 40.0-44.9, adult Acute hyperglycemia (Acute) ALEJANDRA (obstructive sleep apnea) Hyperglycemia Nonischemic cardiomyopathy (Chronic) "prior EF 30% per Epic records. echo 02/2015- EF 40-45%" DM type 2 (diabetes mellitus, type 2) (Chronic) H/O TB (tuberculosis) (Chronic) H/O toxoplasmosis (Chronic) Hepatitis C (Chronic) Hypertension (Chronic) Colon polyp (Chronic) "TVA polyp on colonoscopy 09/2014" H/O colonoscopy (Chronic) "11/2015- diverticulosis" S/P cardiac cath (Chronic) "for abnormal stress test. cath 03/18/2015-essentially normal coronaries with no obstructive disease " Colon polyp Confusion (Acute) Hyperglycemia due to type 2 diabetes mellitus (Acute) DVT prophylaxis Polyneuropathy Peripheral vascular disease Depression Bilateral cellulitis of lower leg (Acute) Fatigue (Acute) Encephalopathy Hypercapnic respiratory failure Varicose veins of bilateral lower extremities with other complications Morbid obesity H/O drug abuse Medical History Peripheral neuropathy Acute dehydration Accidental fall tripped over dog bed, hit back of head, checked in the ED poss concussion Dysequilibrium Hepatitis C Diabetes mellitus, type 2 Depression Anxiety Hypertension Surgical History History of colonoscopy History of umbilical hernia repair x2 History of tooth extraction History of wisdom tooth extraction History of cardiac cath 03/2015 @ [facility], no stents follows with Dr. Monet Family History Mother Family history of diabetes mellitus Father Family history of diabetes mellitus Other No family history of adverse response to anesthesia Social History Smoking Status: Former smoker Tobacco Type: Cigarettes Cigarettes Per Day: Says he occasionally will smoke a cigar.; Second Hand Exposure: No; Do You Dip or Chew Tobacco: No; Hx Alcohol Use: Yes Alcohol type: beer and hard liquor Hx Substance Use: Yes Non-Prescribed Medications: Methamphetamines Last Used Substance: Days (ago) Last Used Substance Other:: 2 days ago Preferred Language: Nigerian Communication Ability: Effective Hearing Ability: Normal Animal Control Officer Required: No Beliefs That Will Affect Care: None marital status: Single Current Living Situation: Alone Current Living Situation Comment: lives alone Feels Safe at Home: Yes Gender Identity: Male Assistive Devices: Cane and Walker Allergies Allergies Allergy/AdvReac Type Severity Reaction Status Date / Time shellfish derived Allergy Severe Swelling Verified 03/30/25 13:50 amoxicillin Allergy Intermediate HIVES Verified 03/30/25 13:50 clavulanic acid Allergy Intermediate HIVES Verified 03/30/25 13:50 permethrin Allergy Intermediate swelling Verified 03/30/25 13:50 shrimp Allergy Intermediate SWELLS Verified 03/30/25 13:50 sulfamethoxazole Allergy Unknown CAN'T Verified 03/30/25 13:50 [From Bactrim] REMEMBER trimethoprim [From Bactrim] Allergy Unknown CAN'T Verified 03/30/25 13:50 REMEMBER insulin glargine AdvReac Severe CHF PER Verified 03/30/25 13:50 [From Lantus U-100 Insulin] [facility] Home Meds Home Medications Medication Instructions Recorded Confirmed empagliflozin 25 mg tablet 25 mg PO QAM 08/01/22 06/02/25 (Jardiance) ascorbic acid (vitamin C) 500 mg 1,000 mg PO DAILY 09/21/22 06/02/25 tablet (Vitamin C) multivitamin with minerals 1 tab PO DAILY 09/21/22 06/02/25 (Multiple Vitamin-Minerals tablet) lisinopril 20 mg tablet 20 mg PO DAILY 10/10/23 06/02/25 sertraline 100 mg tablet 100 mg PO QAM 10/10/23 06/02/25 insulin glargine U-300 conc 300 100 unit subcut BID 10/14/23 06/02/25 unit/mL (3 mL) subcutaneous pen (Toujeo Max U-300 SoloStar) albuterol sulfate 90 mcg/actuation 90 mcg inhalation Q4H PRN Wheezing 06/06/24 06/02/25 aerosol inhaler fluticasone furoate 100 100 mcg inhalation DAILY 08/05/24 06/02/25 mcg/actuation blister powder for inhalation (Arnuity Ellipta) insulin aspart U-100 100 unit/mL 60 unit subcut BID 12/15/24 06/02/25 (3 mL) subcutaneous pen nitroglycerin 0.4 mg sublingual 0.4 mg sublingual DIRECTED PRN 02/28/25 06/02/25 tablet Chest Pain tamsulosin 0.4 mg capsule 0.4 mg PO QAM 02/28/25 06/02/25 Bacillus coagulans-inulin 1 1 cap PO DAILY 03/02/25 06/02/25 billion cell-250 mg capsule bupropion HCl 300 mg 24 hr tablet, 300 mg PO DAILY 03/02/25 06/02/25 extended release cinnamon bark 500 mg capsule 500 mg PO DAILY ##0 03/02/25 06/02/25 (Cinnamon) furosemide 20 mg tablet (Lasix) 60 mg PO QAM 03/23/25 06/02/25 spironolactone 25 mg tablet 25 mg PO DAILY 04/13/25 06/02/25 aspirin 81 mg chewable tablet 81 mg PO DAILY 06/02/25 06/02/25 cyanocobalamin (vitamin B-12) 1,000 mcg PO 06/02/25 1,000 mcg tablet,extended release (Vitamin B-12 ER) doxycycline hyclate 100 mg PO BID 06/02/25 06/02/25 mupirocin See Rx Instructions .Route .COMPLEX 06/02/25 06/02/25 Previous Rx's Medication Instructions Recorded metoprolol succinate 50 mg 50 mg PO BID #60 tabs 12/13/24 tablet,extended release 24 hr metformin 750 mg tablet,extended 750 mg PO DAILY #30 tabs 03/06/25 release 24 hr L.acidop,casei,lactis,rham-B.lact,[place] 1 cap PO DAILY #30 caps 03/09/25 625 mg (10 billion cell) capsule (Advanced Probiotic) apixaban 5 mg tablet (Eliquis) 5 mg PO BID #74 tabs 04/21/25 Results & Data (ED) Vital Signs Vital Signs - 24 hr 06/01/25 20:22 06/01/25 20:38 06/01/25 22:26 Pulse Rate 100 H 101 H Pulse Rate [Right Finger] 97 H Respiratory Rate 18 18 Respiratory Effort / Characteristics Non-Labored Spontaneous Non-Labored Spontaneous Respiratory Depth Normal Normal Blood Pressure 162/102 H Blood Pressure [Right Arm] 151/100 H Blood Pressure Mean 122 Blood Pressure Mean [Right Arm] 117 Pulse Oximetry 95 94 Oxygen Delivery Method Room Air Room Air Sepsis Recent Fever Within 48 Hours No Sepsis New/Unexplained Change in Mental Status No Sepsis Action Taken by Nursing No Action Required 06/02/25 00:34 Pulse Rate 100 H Pulse Rate [Right Finger] Respiratory Rate Respiratory Effort / Characteristics Respiratory Depth Blood Pressure Blood Pressure [Right Arm] Blood Pressure Mean Blood Pressure Mean [Right Arm] Pulse Oximetry Oxygen Delivery Method Sepsis Recent Fever Within 48 Hours Sepsis New/Unexplained Change in Mental Status Sepsis Action Taken by Nursing Laboratory Data 06/01/25 22:06 06/01/25 22:06 Lab Results 06/01/25 06/01/25 06/01/25 Range/Units 20:46 21:47 22:06 WBC 7.92 (4.8-10.8) K/ul RBC 5.03 (4.70-6.10) M/uL Hgb 14.7 (14.0-18.0) g/dl Hct 43.0 (42.0-52.0) % MCV 85.5 (80.0-100.0) fL MCH 29.2 (25.0-34.0) pg MCHC 34.2 (32.0-36.0) g/dL RDW Std Deviation 41.1 (36.4-46.3) fL RDW Coeff of Marc 13.2 (11.5-14.5) % Plt Count 245 (130-400) K/uL MPV 9.2 L (9.4-12.4) fL Immature Gran % (Auto) 0.6 % Neut % (Auto) 62.6 % Lymph % (Auto) 26.6 % [place] % (Auto) 6.3 % Eos % (Auto) 2.9 % Baso % (Auto) 1.0 % Neut # (Auto) 4.95 (1.40-6.50) K/uL Lymph # (Auto) 2.11 (1.20-3.40) K/uL [place] # (Auto) 0.50 (0.11-0.59) K/uL Eos # (Auto) 0.23 (0.00-0.50) K/uL Baso # (Auto) 0.08 (0.00-0.20) K/uL Immature Gran # (Auto) 0.05 (0.01-0.20) K/uL PT Cancelled INR Cancelled VBG pH (7.36-7.41) VBG pCO2 (38-50) mmHg VBG pO2 mmHg VBG HCO3 mmol/L VBG O2 Saturation % VBG Base Excess mEq/L Sodium 133 L (136-145) mmol/L Potassium 4.8 (3.5-5.1) mmol/L Chloride 100 (98-107) mmol/L Carbon Dioxide 29 (21-32) mmol/L Anion Gap 4 (3-11) BUN 16 (6-23) mg/dl Creatinine 0.68 (0.6-1.4) mg/dl Est Cr Clr Drug Dosing 147.3 ml/min eGFR 105.10 BUN/Creatinine Ratio 23.5 H (10-20) Glucose 357 H* (70-99(Fasting)) mg/dl POC Glucose 385 H* (70-99) mg/dl Lactate 1.1 (0.4-2.0) mmol/L Calcium 8.8 (8.6-10.3) mg/dl Magnesium 2.1 (1.7-2.4) mg/dl Total Bilirubin 0.5 (0.2-1.0) mg/dl AST 19 (13-39) U/L ALT 17 (7-52) U/L Alkaline Phosphatase 108 H (34-104) U/L Troponin I High Sens 15.1 (0-20) pg/ml Total Protein 6.4 (6.0-8.3) gm/dl Albumin 3.3 L (3.4-5.0) gm/dl Globulin 3.1 (2.5-4.0) gm/dl Albumin/Globulin Ratio 1.1 (0.9-2) Lipase 33 (11-82) U/L Procalcitonin 0.04 (0-0.5) ng/ml TSH 4.616 H (0.300-4.500) uIu/ml Free T4 0.80 (0.61-1.60) ng/dl Urine Color Yellow Urine Appearance Clear (Clear) Urine pH 7.0 (4.5-7.5) Ur Specific [place] 1.029 (1.000-1.030) Urine Protein Negative (Negative) Urine Glucose (UA) 3+ H (Negative) Urine Ketones Negative (Negative) Urine Blood Negative (Negative) Urine Nitrite Negative (Negative) Urine Bilirubin Negative (Negative) Urine Urobilinogen Negative (Negative) Ur Leukocyte Esterase Negative (Negative) Urine Comment 06/01/25 06/02/25 Range/Units 23:37 00:10 WBC (4.8-10.8) K/ul RBC (4.70-6.10) M/uL Hgb (14.0-18.0) g/dl Hct (42.0-52.0) % MCV (80.0-100.0) fL MCH (25.0-34.0) pg MCHC (32.0-36.0) g/dL RDW Std Deviation (36.4-46.3) fL RDW Coeff of Marc (11.5-14.5) % Plt Count (130-400) K/uL MPV (9.4-12.4) fL Immature Gran % (Auto) % Neut % (Auto) % Lymph % (Auto) % [place] % (Auto) % Eos % (Auto) % Baso % (Auto) % Neut # (Auto) (1.40-6.50) K/uL Lymph # (Auto) (1.20-3.40) K/uL [place] # (Auto) (0.11-0.59) K/uL Eos # (Auto) (0.00-0.50) K/uL Baso # (Auto) (0.00-0.20) K/uL Immature Gran # (Auto) (0.01-0.20) K/uL PT INR VBG pH 7.35 L (7.36-7.41) VBG pCO2 55 H (38-50) mmHg VBG pO2 28 mmHg VBG HCO3 30 mmol/L VBG O2 Saturation < 60.0 % VBG Base Excess 3.4 mEq/L Sodium (136-145) mmol/L Potassium (3.5-5.1) mmol/L Chloride (98-107) mmol/L Carbon Dioxide (21-32) mmol/L Anion Gap (3-11) BUN (6-23) mg/dl Creatinine (0.6-1.4) mg/dl Est Cr Clr Drug Dosing ml/min eGFR BUN/Creatinine Ratio (10-20) Glucose (70-99(Fasting)) mg/dl POC Glucose 293 H (70-99) mg/dl Lactate (0.4-2.0) mmol/L Calcium (8.6-10.3) mg/dl Magnesium (1.7-2.4) mg/dl Total Bilirubin (0.2-1.0) mg/dl AST (13-39) U/L ALT (7-52) U/L Alkaline Phosphatase (34-104) U/L Troponin I High Sens (0-20) pg/ml Total Protein (6.0-8.3) gm/dl Albumin (3.4-5.0) gm/dl Globulin (2.5-4.0) gm/dl Albumin/Globulin Ratio (0.9-2) Lipase (11-82) U/L Procalcitonin (0-0.5) ng/ml TSH (0.300-4.500) uIu/ml Free T4 (0.61-1.60) ng/dl Urine Color Urine Appearance (Clear) Urine pH (4.5-7.5) Ur Specific [place] (1.000-1.030) Urine Protein (Negative) Urine Glucose (UA) (Negative) Urine Ketones (Negative) Urine Blood (Negative) Urine Nitrite (Negative) Urine Bilirubin (Negative) Urine Urobilinogen (Negative) Ur Leukocyte Esterase (Negative) Urine Comment Administered Medications Sodium Chloride (Nss) 500 mls @ 80 mls/hr IV .[id number] [facility] Stop: 06/02/25 03:29 Last Admin: 06/01/25 22:11 Dose: 80 mls/hr Documented By: JIMBO Vancomycin HCl 2,500 mg/ (Sodium Chloride) 550 mls @ 180 mls/hr IV NOW ONE Stop: 06/02/25 01:25 Last Admin: 06/01/25 22:51 Dose: 180 mls/hr Documented By: JIMBO Insulin Aspart (Insulin Aspart Per Unit Charge) 0 units SC ACHS [facility] Stop: 07/01/25 23:19 Last Admin: 06/01/25 23:46 Dose: 7 units Documented By: elsy Co-signed By: JIMBO Discontinued Medications Cefepime HCl (Maxipime 2000mg) 2,000 mg in 20 mls @ 5 mls/min IV NOW STA; Protocol Stop: 06/01/25 22:25 Last Admin: 06/01/25 22:30 Dose: 5 mls/min Documented By: JIMBO Imaging Data Radiologist's Impression: Foot X-Ray 06/01/25 21:10 Exam(s): XR LEFT FOOT, 2 views EXAM: XR Left Foot, 2 Views CLINICAL HISTORY: Ulcer great toe, cellulitis. TECHNIQUE: Frontal and lateral views of the left foot. COMPARISON: No relevant prior studies available. FINDINGS: Bones/joints: There is a calcaneal enthesophyte. No acute fracture. No dislocation. Soft tissues: Nonspecific soft tissue swelling of the foot. No free air. No radiopaque foreign body. IMPRESSION: Nonspecific soft tissue swelling of the foot. No free air. Electronically signed by: Leonarda Raman MD 06/02/25 00:20 AM Discharge Plan Visit Data Chief Complaint: Dizziness Stated Complaint: DIZZINESS, HYPERGLYCEMIA ED Provider: Karen Ramirez Discharge Problem: Cellulitis, Diabetic peripheral neuropathy, Diabetic foot ulcer, Failure of outpatient treatment, Hyperglycemia due to diabetes mellitus Patient Disposition: Being Evaluated by Hospitalist Condition: Fair Forms Stand Alone Forms: My [facility] Prescriptions Prescriptions: No Action Jardiance 25 mg tablet 25 mg PO QAM ascorbic acid (vitamin C) [Vitamin C] 500 mg Tablet 1,000 mg PO DAILY Multiple Vitamin-Minerals Tablet 1 tab PO DAILY insulin glargine U-300 conc [Toujeo Max U-300 SoloStar] 300 unit/mL (3 mL) insulin pen 100 unit SUBCUT BID lisinopril 20 mg tablet 20 mg PO DAILY sertraline 100 mg tablet 100 mg PO QAM albuterol sulfate 90 mcg/actuation HFA aerosol inhaler 90 mcg INHALATION Q4H PRN (Reason: Wheezing) metoprolol succinate 50 mg Tablet Extended Release 24 Hr 50 mg PO BID Qty: 60 0RF tamsulosin 0.4 mg capsule 0.4 mg PO QAM nitroglycerin 0.4 mg Tablet, Sublingual 0.4 mg sublingual DIRECTED MDD 3 PRN (Reason: Chest Pain) furosemide [Lasix] 20 mg tablet 60 mg PO QAM bupropion HCl 300 mg tablet extended release 24 hr 300 mg PO DAILY cinnamon bark [Cinnamon] 500 mg Capsule 500 mg PO DAILY Qty: 0 Rx Instructions: CG Bacillus coagulans-inulin 1 billion-250 cell-mg Capsule 1 cap PO DAILY metformin 750 mg tablet extended release 24 hr 750 mg PO DAILY Qty: 30 0RF Advanced Probiotic 625 mg (10 billion cell) Capsule 1 cap PO DAILY Qty: 30 0RF spironolactone 25 mg Tablet 25 mg PO DAILY Eliquis 5 mg Tablet 5 mg PO BID Qty: 74 0RF fluticasone furoate [Arnuity Ellipta] 100 mcg/actuation blister with device 100 mcg INHALATION DAILY insulin aspart U-100 100 unit/mL (3 mL) insulin pen 60 unit SUBCUT BID Rx Instructions: 60u with breakfast, 20u w/lunch, 60u with supper cyanocobalamin (vitamin B-12) [Vitamin B-12] 1,000 mcg Tablet Extended Release 1,000 mcg PO aspirin 81 mg Tablet,Chewable 81 mg PO DAILY doxycycline hyclate 100 mg PO BID mupirocin See Rx Instructions .ROUTE .COMPLEX Rx Instructions: Mupirocin 2% externa Ointment. Apply 1 application topicallu to affeced area in the am and one application before bed. Apply to leg wound Referrals Referrals: Willam Fofana, [Primary Care Provider] -
[2025-06-01] MEDS: VANCOMYCIN HCL 2,500 MG in SODIUM CHLORIDE 0.9% 500 ML IV ONE (22:51)
[2025-06-01 22:52] LABS: Alanine Aminotransferase 17.0 U/L (7-52); Albumin Globulin Ratio 1.1 (0.9-2); Alkaline Phosphatase 108.0 U/L (34-104); Anion Gap 4.0 (3-11); Bilirubin,Total 0.5 mg/dl (0.2-1.0); Blood Urea Nitrogen 16.0 mg/dl (6-23); Calcium 8.8 mg/dl (8.6-10.3); Carbon Dioxide 29.0 mmol/L (21-32); Chloride 100.0 mmol/L (98-107); Creatinine Clr Calc Pharmacy 147.3 ml/min; Globulin 3.1 gm/dl (2.5-4.0); Glucose 357.0 mg/dl (70-99(Fasting)); Lipase 33.0 U/L (11-82); Magnesium 2.1 mg/dl (1.7-2.4); Potassium 4.8 mmol/L (3.5-5.1); Sodium 133.0 mmol/L (136-145); Total Protein 6.4 gm/dl (6.0-8.3)
[2025-06-01 23:01] LABS: Thyroid Stimulating Hormone 4.616 uIu/ml (0.300-4.500)
[2025-06-01] MEDS ORDERED: GLUCOSE 40% GEL 15 GM TUBE PO PRN (23:17)
[2025-06-01] MEDS ORDERED: GLUCOSE 10 TAB/TUBE PO PRN (23:17)
[2025-06-01] MEDS ORDERED: DEXTROSE 50% 50 ML SYRINGE IV PRN (23:17)
[2025-06-01] MEDS ORDERED: GLUCAGON FOR INJ 1 MG VIAL SQ PRN (23:17)
[2025-06-01] MEDS ORDERED: CARBOHYDRATES FOR HYPOGLYCEMIA PO PRN (23:17)
[2025-06-01] MEDS: INSULIN ASPART PER UNIT CHARGE SC SCH (23:46)
[2025-06-01] MEDS ORDERED: PHARMACY GLYCEMIC MGMT CONSULT PRN (23:52)
[2025-06-02] MEDS ORDERED: ACETAMINOPHEN 325 MG TAB PO PRN (00:04)
[2025-06-02] MEDS ORDERED: PROMETHAZINE 12.5 MG/50.5 ML BAG IV PRN (00:04)
--- NOTE | 2025-06-02 00:14 | History & Physical Report ---
Date of Service June 01, 2025 (Late entry) Assessment & Plan (1) Acute hypoxemic respiratory failure: Plan: Assessment and plan below following discussion of case with ED provider and reviewing patient history/pertinent normal/abnormal diagnostic test results. Transient hypoxemia Right great toe infection in a poorly controlled diabetic rule out abscess chronic diastolic heart failure (EF 60 to 65%, TTE 2024), patient euvolemic hx nonobstructive CAD/hx PVD PAF on Eliquis hypertension, slightly elevated hyperlipidemia, on statin Rx HCV status post interferon Rx, no recent follow-up with [facility] renal social worker. DM 2 insulin requiring, suboptimal control as of recent hemoglobin A1c of 11 from April 2025 anxiety/mood disorder, at baseline Admit to med/tele Baseline VBG CS, daptomycin and cefepime CT left foot Orthopedics consult Re: Infected left great toe wound Pharmacy glycemic control consult DVT prophylaxis. Eliquis Full code Text document was generated using [employer] voice recognition software. It may contain grammatical or spelling errors. Kindly contact undersigned for clarification of any documentation item in question. History of Present Illness Chief Complaint: Infected left toe wound Primary Care Provider: Willam Fofana DO History obtained from patient, family, and records. Medical history significant for chronic diastolic heart failure (EF 60 to 65%, TTE 2024), nonobstructive CAD, PVD, PAF on Eliquis, hypertension, hyperlipidemia, HCV status post interferon Rx, DM 2 insulin requiring, history of toxoplasmosis chorioretinitis as per records, history of TB as per records, anxiety/mood disorder, substance abuse. Recent confinement April 2025 traumatic rhabdomyolysis and pneumonia. Patient seen at the ER 3 weeks ago for bilateral LE cellulitis. Patient discharged on Keflex course. Doxycycline later added to patient regimen by PCP on follow-up visit 2 weeks ago. Leg swelling improved as per patient. Patient went to nail salon to have his toenails trimmed today. Nail salon rv repair technician expressed concern about ulcer on left big toe with some drainage. Patient unaware of wound until pointed out by bakery technician. Denies chest pain, SOB, cough, fever or chills. Intermittent O2 sats of 80s documented at the ER. Vancomycin and cefepime administered at the ER. Medical History as above Surgical History : Scalp laceration surgery, varicose vein surgery Family History : DM, heart disease Personal/Social history : Non-smoker, occasional EtOH intake, disabled Allergies Allergy/AdvReac Type Severity Reaction Status Date / Time shellfish derived Allergy Severe Swelling Verified 03/30/25 13:50 amoxicillin Allergy Intermediate HIVES Verified 03/30/25 13:50 clavulanic acid Allergy Intermediate HIVES Verified 03/30/25 13:50 permethrin Allergy Intermediate swelling Verified 03/30/25 13:50 shrimp Allergy Intermediate SWELLS Verified 03/30/25 13:50 sulfamethoxazole Allergy Unknown CAN'T Verified 03/30/25 13:50 [From Bactrim] REMEMBER trimethoprim [From Bactrim] Allergy Unknown CAN'T Verified 03/30/25 13:50 REMEMBER insulin glargine AdvReac Severe CHF PER Verified 03/30/25 13:50 [From Lantus U-100 Insulin] [facility] Home Medications Medication Instructions Recorded Confirmed Type empagliflozin 25 mg tablet 25 mg PO QAM 08/01/22 06/02/25 History (Jardiance) ascorbic acid (vitamin C) 500 mg 1,000 mg PO DAILY 09/21/22 06/02/25 History tablet (Vitamin C) multivitamin with minerals 1 tab PO DAILY 09/21/22 06/02/25 History (Multiple Vitamin-Minerals tablet) lisinopril 20 mg tablet 20 mg PO DAILY 10/10/23 06/02/25 History sertraline 100 mg tablet 100 mg PO QAM 10/10/23 06/02/25 History insulin glargine U-300 conc 300 100 unit subcut BID 10/14/23 06/02/25 History unit/mL (3 mL) subcutaneous pen (Toujeo Max U-300 SoloStar) albuterol sulfate 90 mcg/actuation 90 mcg inhalation Q4H PRN Wheezing 06/06/24 06/02/25 History aerosol inhaler fluticasone furoate 100 100 mcg inhalation DAILY 08/05/24 06/02/25 History mcg/actuation blister powder for inhalation (Arnuity Ellipta) metoprolol succinate 50 mg 50 mg PO BID #60 tabs 12/13/24 06/02/25 Rx tablet,extended release 24 hr insulin aspart U-100 100 unit/mL 60 unit subcut BID 12/15/24 06/02/25 History (3 mL) subcutaneous pen nitroglycerin 0.4 mg sublingual 0.4 mg sublingual DIRECTED PRN 02/28/25 06/02/25 History tablet Chest Pain tamsulosin 0.4 mg capsule 0.4 mg PO QAM 02/28/25 06/02/25 History Bacillus coagulans-inulin 1 1 cap PO DAILY 03/02/25 06/02/25 History billion cell-250 mg capsule bupropion HCl 300 mg 24 hr tablet, 300 mg PO DAILY 03/02/25 06/02/25 History extended release cinnamon bark 500 mg capsule 500 mg PO DAILY ##0 03/02/25 06/02/25 History (Cinnamon) metformin 750 mg tablet,extended 750 mg PO DAILY #30 tabs 03/06/25 06/02/25 Rx release 24 hr L.acidop,casei,lactis,rham-B.lact,[place] 1 cap PO DAILY #30 caps 03/09/25 06/02/25 Rx 625 mg (10 billion cell) capsule (Advanced Probiotic) furosemide 20 mg tablet (Lasix) 60 mg PO QAM 03/23/25 06/02/25 History spironolactone 25 mg tablet 25 mg PO DAILY 04/13/25 06/02/25 History apixaban 5 mg tablet (Eliquis) 5 mg PO BID #74 tabs 04/21/25 06/02/25 Rx aspirin 81 mg chewable tablet 81 mg PO DAILY 06/02/25 06/02/25 History cyanocobalamin (vitamin B-12) 1,000 mcg PO 06/02/25 History 1,000 mcg tablet,extended release (Vitamin B-12 ER) doxycycline hyclate 100 mg PO BID 06/02/25 06/02/25 History mupirocin See Rx Instructions .Route .COMPLEX 06/02/25 06/02/25 History Past Med/Surg History Problem List (Updated 06/02/25 @ 10:04 by Khoa Tong MD) Acute hypoxemic respiratory failure Hyperglycemia due to diabetes mellitus (Acute) Failure of outpatient treatment (Acute) Diabetic foot ulcer (Acute) Cellulitis (Acute) Acute dehydration (Acute) Generalized weakness (Acute) Rhabdomyolysis (Acute) Rhabdomyolysis Cellulitis of both lower extremities Diabetes mellitus due to underlying condition, uncontrolled, with hyperglycemia, with long-term current use of insulin Major depressive disorder Cellulitis (Acute) Chronic venous insufficiency Venous ulcers of both lower extremities Stroke-like symptom Facial droop (Acute) Abdominal pain (Acute) Acute confusion (Acute) Hyperglycemia (Acute) Hyperkalemia Shortness of breath Paroxysmal atrial tachycardia Paroxysmal atrial fibrillation Methamphetamine abuse PAC (premature atrial contraction) Sinus tachycardia Atrial fibrillation with RVR Hypoxia (Acute) Hyperglycemia (Acute) Influenza A (Acute) Diabetic peripheral neuropathy (Acute) Diabetic neuropathic arthritis Abdominal wall cellulitis (Acute) Foot pain, left (Acute) Cellulitis of finger, right (Acute) Hyperglycemia (Acute) Burn of abdominal wall (Acute) Unable to care for self (Acute) Generalized muscle weakness (Acute) Ambulatory dysfunction (Acute) Noncompliance w/medication treatment due to intermit use of medication BPH (benign prostatic hyperplasia) Anxiety and depression Bronchitis Uncontrolled type 2 diabetes mellitus with hyperglycemia (Acute) Ambulatory dysfunction (Acute) Generalized weakness (Acute) Acute hyperglycemia (Acute) Morbid obesity with BMI of 40.0-44.9, adult Acute hyperglycemia (Acute) ALEJANDRA (obstructive sleep apnea) Hyperglycemia Nonischemic cardiomyopathy (Chronic) "prior EF 30% per Epic records. echo 02/2015- EF 40-45%" DM type 2 (diabetes mellitus, type 2) (Chronic) H/O TB (tuberculosis) (Chronic) H/O toxoplasmosis (Chronic) Hepatitis C (Chronic) Hypertension (Chronic) Colon polyp (Chronic) "TVA polyp on colonoscopy 09/2014" H/O colonoscopy (Chronic) "11/2015- diverticulosis" S/P cardiac cath (Chronic) "for abnormal stress test. cath 03/18/2015-essentially normal coronaries with no obstructive disease " Colon polyp Confusion (Acute) Hyperglycemia due to type 2 diabetes mellitus (Acute) DVT prophylaxis Polyneuropathy Peripheral vascular disease Depression Bilateral cellulitis of lower leg (Acute) Fatigue (Acute) Encephalopathy Hypercapnic respiratory failure Varicose veins of bilateral lower extremities with other complications Morbid obesity H/O drug abuse Medical History Closed head injury Peripheral neuropathy Acute dehydration Accidental fall tripped over dog bed, hit back of head, checked in the ED poss concussion Dysequilibrium Hepatitis C Diabetes mellitus, type 2 Depression Anxiety Hypertension Surgical History History of colonoscopy History of umbilical hernia repair x2 History of tooth extraction History of wisdom tooth extraction History of cardiac cath 03/2015 @ [facility], no stents follows with Dr. Monet Family History Mother Family history of diabetes mellitus Father Family history of diabetes mellitus Other No family history of adverse response to anesthesia Social History Smoking Status: Former smoker Tobacco Type: Cigarettes Cigarettes Per Day: Says he occasionally will smoke a cigar.; Second Hand Exposure: No; Do You Dip or Chew Tobacco: No; Hx Alcohol Use: Yes Alcohol type: beer and hard liquor Hx Substance Use: Yes Non-Prescribed Medications: Methamphetamines Last Used Substance: Hours (ago) Last Used Substance Other:: 2 days ago Substance Use Type Other:: MDMA Preferred Language: French Communication Ability: Effective Hearing Ability: Normal Assistant Editor Required: No Beliefs That Will Affect Care: None marital status: Single Current Living Situation: Alone Current Living Situation Comment: lives alone Feels Safe at Home: Yes Safety Concerns: Feels Safe At This Time Gender Identity: Male Assistive Devices: Walker Review of Systems Review of Systems: As per HPI, all other systems reviewed and negative Physical Exam Physical Exam: GENERAL: Comfortable, obese, slightly anxious/restless, no respiratory distress SKIN: Normal color, warm HEENT: [place] palpebral conjunctivae, no ptosis, moist buccal mucosa NECK : Supple, short neck, no tenderness CHEST : Decreased breath sounds, no tenderness HEART : RRR, no obvious murmurs ABDOMEN: Some distention, nontender EXTREMITIES : Bilateral LE swelling without tenderness, ulcerated wound left great toe with scant drainage, palpable pulses, no other conspicuous deformities noted NEUROLOGIC : Coherent, no facial asymmetry, no other gross focality Results & Data Results & Data Vital Signs (Past 12 Hours) Vital Signs Pulse Pulse Resp BP BP Pulse Ox O2 Del Method 06/01/25 22:26 97 H 18 151/100 H 94 Room Air 06/01/25 20:38 101 H 06/01/25 20:22 100 H 18 162/102 H 95 Room Air Laboratory Results Laboratory Results WBC 7.92 K/ul (4.8-10.8) 06/01/25 22:06 RBC 5.03 M/uL (4.70-6.10) 06/01/25 22:06 Hgb 14.7 g/dl (14.0-18.0) 06/01/25 22:06 Hct 43.0 % (42.0-52.0) 06/01/25 22:06 MCV 85.5 fL (80.0-100.0) 06/01/25 22:06 MCH 29.2 pg (25.0-34.0) 06/01/25 22:06 MCHC 34.2 g/dL (32.0-36.0) 06/01/25 22:06 RDW Std Deviation 41.1 fL (36.4-46.3) 06/01/25 22: RDW Coeff of Marc 13.2 % (11.5-14.5) 06/01/25 22: Plt Count 245 K/uL (130-400) 06/01/25 22:06 MPV 9.2 fL (9.4-12.4) L 06/01/25 22:06 Immature Gran % (Auto) 0.6 % 06/01/25 22:06 Neut % (Auto) 62.6 % 06/01/25 22:06 Lymph % (Auto) 26.6 % 06/01/25 22:06 [place] % (Auto) 6.3 % 06/01/25 22:06 Eos % (Auto) 2.9 % 06/01/25 22:06 Baso % (Auto) 1.0 % 06/01/25 22:06 Neut # (Auto) 4.95 K/uL (1.40-6.50) 06/01/25 22:06 Lymph # (Auto) 2.11 K/uL (1.20-3.40) 06/01/25 22:06 [place] # (Auto) 0.50 K/uL (0.11-0.59) 06/01/25 22:06 Eos # (Auto) 0.23 K/uL (0.00-0.50) 06/01/25 22:06 Baso # (Auto) 0.08 K/uL (0.00-0.20) 06/01/25 22:06 Immature Gran # (Auto) 0.05 K/uL (0.01-0.20) 06/01/25 22:06 PT Cancelled 06/01/25 22:06 INR Cancelled 06/01/25 22:06 Sodium 133 mmol/L (136-145) L 06/01/25 22:06 Potassium 4.8 mmol/L (3.5-5.1) 06/01/25 22:06 Chloride 100 mmol/L (98-107) 06/01/25 22:06 Carbon Dioxide 29 mmol/L (21-32) 06/01/25 22:06 Anion Gap 4 (3-11) 06/01/25 22:06 BUN 16 mg/dl (6-23) 06/01/25 22:06 Creatinine 0.68 mg/dl (0.6-1.4) 06/01/25 22:06 Est Cr Clr Drug Dosing 147.3 ml/min 06/01/25 22:06 eGFR 105.10 06/01/25 22:06 BUN/Creatinine Ratio 23.5 (10-20) H 06/01/25 22:06 Glucose 357 mg/dl (70-99(Fasting)) H* 06/01/25 22:06 POC Glucose 293 mg/dl (70-99) H 06/01/25 23:37 Lactate 1.1 mmol/L (0.4-2.0) 06/01/25 22:06 Calcium 8.8 mg/dl (8.6-10.3) 06/01/25 22:06 Magnesium 2.1 mg/dl (1.7-2.4) 06/01/25 22:06 Total Bilirubin 0.5 mg/dl (0.2-1.0) 06/01/25 22:06 AST 19 U/L (13-39) 06/01/25 22:06 ALT 17 U/L (7-52) 06/01/25 22:06 Alkaline Phosphatase 108 U/L (34-104) H 06/01/25 22:06 Troponin I High Sens 15.1 pg/ml (0-20) 06/01/25 22:06 Total Protein 6.4 gm/dl (6.0-8.3) 06/01/25 22:06 Albumin 3.3 gm/dl (3.4-5.0) L 06/01/25 22:06 Globulin 3.1 gm/dl (2.5-4.0) 06/01/25 22:06 Albumin/Globulin Ratio 1.1 (0.9-2) 06/01/25 22:06 Lipase 33 U/L (11-82) 06/01/25 22:06 Procalcitonin 0.04 ng/ml (0-0.5) 06/01/25 22:06 TSH 4.616 uIu/ml (0.300-4.500) H 06/01/25 22:06 Free T4 0.80 ng/dl (0.61-1.60) 06/01/25 22:06 Urine Color Yellow 06/01/25 21:47 Urine Appearance Clear (Clear) 06/01/25 21:47 Urine pH 7.0 (4.5-7.5) 06/01/25 21:47 Ur Specific [place] 1.029 (1.000-1.030) 06/01/25 21:47 Urine Protein Negative (Negative) 06/01/25 21:47 Urine Glucose (UA) 3+ (Negative) H 06/01/25 21:47 Urine Ketones Negative (Negative) 06/01/25 21:47 Urine Blood Negative (Negative) 06/01/25 21:47 Urine Nitrite Negative (Negative) 06/01/25 21:47 Urine Bilirubin Negative (Negative) 06/01/25 21:47 Urine Urobilinogen Negative (Negative) 06/01/25 21:47 Ur Leukocyte Esterase Negative (Negative) 06/01/25 21:47 Urine Comment 06/01/25 21:47 Diagnostic Findings Chest x-ray as per my interpretation : Atelectasis, minimal congestion Code Status & VTE Plan VTE Prophylaxis Plan VTE Prophylaxis will be ordered: Yes
--- NOTE | 2025-06-02 00:21 | XRay Report ---
Exam(s): XR LEFT FOOT, 2 views EXAM: XR Left Foot, 2 Views CLINICAL HISTORY: Ulcer great toe, cellulitis. TECHNIQUE: Frontal and lateral views of the left foot. COMPARISON: No relevant prior studies available. FINDINGS: Bones/joints: There is a calcaneal enthesophyte. No acute fracture. No dislocation. Soft tissues: Nonspecific soft tissue swelling of the foot. No free air. No radiopaque foreign body. IMPRESSION: Nonspecific soft tissue swelling of the foot. No free air. Electronically signed by: Leonarda Raman MD 06/02/25 00:20 AM
[2025-06-02 00:27] LABS: Base Excess VBG 3.4 mEq/L; HCO3 VBG 30 mmol/L; Oxygen Saturation VBG < 60.0 %; PCO2 VBG 55 mmHg (38-50); PO2 VBG 28 mmHg; pH VBG 7.35 (7.36-7.41)
[2025-06-02 00:57] LABS: INR 0.9 (0.9-1.1); Partial Thromboplastin Time 28 Seconds (21-31); Prothrombin Time 9.8 Seconds (9.0-12.0)
[2025-06-02 01:18] LABS: Amphetamines+Metham, Urine Pos (Neg); MDMA (Ecstacy), Urine Pos (Neg); Marijuana, Urine Neg (Neg)
[2025-06-02] MEDS: TOUJEO SOLOSTAR SQ SCH (01:29)
[2025-06-02 02:31] LABS: Base Excess VBG 3.4 mEq/L; HCO3 VBG 30 mmol/L; Oxygen Saturation VBG < 60.0 %; PCO2 VBG 50 mmHg (38-50); PO2 VBG 31 mmHg; pH VBG 7.38 (7.36-7.41)
--- NOTE | 2025-06-02 02:54 | CT Scan Report ---
EXAM: CT foot LT wo con CLINICAL HISTORY: L great toe swelling/wound TECHNIQUE: Contiguous axial CT images of the left foot were obtained without intravenous contrast. Coronal and sagittal reconstructions were likewise performed and indicated to increase the sensitivity for detecting clinically relevant pathology. The CT scan was performed according to ALARA (as low as reasonably achievable). COMPARISON: 08/07/2024 FINDINGS: Degenerative changes are seen in the intertarsal and second tarsometatarsal joints. A small calcaneal spur is seen. Diffuse subcutaneous stranding and thickening is seen, predominantly along the dorsum of the foot?likely cellulitis. No acute fracture or dislocation. No destructive osseous lesion. The visualized muscles and tendons appear grossly unremarkable. No cortical destruction to suggest osteomyelitis. No abscess formation. No significant joint effusion. There are no soft tissue masses. IMPRESSION: Degenerative changes are seen in the intertarsal and second tarsometatarsal joints?unchanged. A small calcaneal spur is seen. Diffuse subcutaneous stranding and thickening is seen, predominantly along the dorsum of the foot?likely cellulitis. Electronically signed by Umer Lima 06-02-2025 02:54 AM
--- NOTE | 2025-06-02 03:05 | XRay Report ---
EXAM: XR chest 1V portable CLINICAL HISTORY: leg swelling TECHNIQUE: X-ray images of the chest were obtained in the AP projection. COMPARISON: Prior X-ray dated 05/09/2025 FINDINGS: Pulmonary Parenchyma: There is still noted bilateral lower zonal pulmonary parenchymal haziness with exaggerated bronchovascular markings. Otherwise, the lungs are clear bilaterally. There is no evidence of consolidation, collapse, or focal opacities. No pulmonary nodules are identified. There is no evidence of pleural effusion or pleural thickening. Heart and Mediastinum: The heart size and shape are normal. There is no mediastinal widening or masses. Bony Thorax: The bony thorax appears intact without fractures or deformities. Soft Tissues: The soft tissues overlying the chest wall are unremarkable. IMPRESSION: 1. There is still noted bilateral lower zonal pulmonary parenchymal haziness with exaggerated bronchovascular markings. 2. There are no interval changes as compared to the prior X-ray study. Electronically signed by Feliciano Suh 06-02-2025 03:05 AM
[2025-06-02] MEDS: INSULIN ASPART PER UNIT CHARGE SC ONE (03:45)
[2025-06-02] MEDS: CEFEPIME 2000MG 2,000 MG/20 ML SYR IV SCH ×2 (05:16→16:59)
[2025-06-02 06:10] LABS: Hematocrit (blood only) 43.4 % (42.0-52.0); Hemoglobin 14.9 g/dl (14.0-18.0); Immature Granulocytes # (auto) 0.04 K/uL (0.01-0.20); Immature Granulocytes % (auto) 0.5 %; Mean Corpuscular Hemoglobin 29.2 pg (25.0-34.0); Mean Corpuscular Volume 84.9 fL (80.0-100.0); Platelet Count 245 K/uL (130-400); RDW Standard Deviation 40.6 fL (36.4-46.3); Red Blood Count 5.11 M/uL (4.70-6.10); White Blood Count 7.61 K/ul (4.8-10.8)
[2025-06-02 06:26] LABS: Anion Gap 4.0 (3-11); Blood Urea Nitrogen 15.0 mg/dl (6-23); Calcium 8.4 mg/dl (8.6-10.3); Carbon Dioxide 27.0 mmol/L (21-32); Chloride 106.0 mmol/L (98-107); Creatinine Clr Calc Pharmacy 154.9 ml/min; Glucose 146.0 mg/dl (70-99(Fasting)); Potassium 4.1 mmol/L (3.5-5.1); Sodium 137.0 mmol/L (136-145)
--- NOTE | 2025-06-02 07:57 | Orthopedic Consultation ---
Date of Service June 02, 2025 Assessment & Plan (1) Diabetic foot ulcer: At this point I do not see any urgent surgical indications. I do not feel debridement would help at this time. I think he needs continued wound care to the left foot. I will have [facility] podiatry follow-up on Wednesday. They will coordinate with wound care for proper treatment of the left foot ulcer moving forward. History of Present Illness Reason for Consultation: Ulceration left great toe. Requesting Physician: . Attending Physician: Sonido Starr MD This is a 64-year-old male presents emergency department via EMS due to concern for a foot ulcer noted by a nail salon renal technician today when he went to have his toenails trimmed. He states he did not know that he had an ulcer on his big toe and did not feel any pain. He denies any history of peripheral neuropathy. Does admit to being diabetic and states his blood sugars have been in the 300s. He states he has had lower extremity swelling and redness for several weeks. He has been taking doxycycline over the course of the last week. He states he was on a different antibiotic prior to this. He states his diuretic dosing had recently been decreased and less when his legs became more swelling. He states they swell up to the point of weeping. He states that he had an accidental trip and scraped his leg several weeks ago and since then he has had increased redness as well. He was seen by the wound care clinic and was following their prescribed regimen for bathing with an antibiotic topical agent and wrapping the legs. Orthopedics was consulted to evaluate and treat. Allergies Allergy/AdvReac Type Severity Reaction Status Date / Time shellfish derived Allergy Severe Swelling Verified 03/30/25 13:50 amoxicillin Allergy Intermediate HIVES Verified 03/30/25 13:50 clavulanic acid Allergy Intermediate HIVES Verified 03/30/25 13:50 permethrin Allergy Intermediate swelling Verified 03/30/25 13:50 shrimp Allergy Intermediate SWELLS Verified 03/30/25 13:50 sulfamethoxazole Allergy Unknown CAN'T Verified 03/30/25 13:50 [From Bactrim] REMEMBER trimethoprim [From Bactrim] Allergy Unknown CAN'T Verified 03/30/25 13:50 REMEMBER insulin glargine AdvReac Severe CHF PER Verified 03/30/25 13:50 [From Lantus U-100 Insulin] [facility] Home Medications Medication Instructions Recorded Confirmed Type empagliflozin 25 mg tablet 25 mg PO QAM 08/01/22 06/02/25 History (Jardiance) ascorbic acid (vitamin C) 500 mg 1,000 mg PO DAILY 09/21/22 06/02/25 History tablet (Vitamin C) multivitamin with minerals 1 tab PO DAILY 09/21/22 06/02/25 History (Multiple Vitamin-Minerals tablet) lisinopril 20 mg tablet 20 mg PO DAILY 10/10/23 06/02/25 History sertraline 100 mg tablet 100 mg PO QAM 10/10/23 06/02/25 History insulin glargine U-300 conc 300 100 unit subcut BID 10/14/23 06/02/25 History unit/mL (3 mL) subcutaneous pen (Toujeo Max U-300 SoloStar) albuterol sulfate 90 mcg/actuation 90 mcg inhalation Q4H PRN Wheezing 06/06/24 06/02/25 History aerosol inhaler fluticasone furoate 100 100 mcg inhalation DAILY 08/05/24 06/02/25 History mcg/actuation blister powder for inhalation (Arnuity Ellipta) metoprolol succinate 50 mg 50 mg PO BID #60 tabs 12/13/24 06/02/25 Rx tablet,extended release 24 hr insulin aspart U-100 100 unit/mL 60 unit subcut BID 12/15/24 06/02/25 History (3 mL) subcutaneous pen nitroglycerin 0.4 mg sublingual 0.4 mg sublingual DIRECTED PRN 02/28/25 06/02/25 History tablet Chest Pain tamsulosin 0.4 mg capsule 0.4 mg PO QAM 02/28/25 06/02/25 History Bacillus coagulans-inulin 1 1 cap PO DAILY 03/02/25 06/02/25 History billion cell-250 mg capsule bupropion HCl 300 mg 24 hr tablet, 300 mg PO DAILY 03/02/25 06/02/25 History extended release cinnamon bark 500 mg capsule 500 mg PO DAILY ##0 03/02/25 06/02/25 History (Cinnamon) metformin 750 mg tablet,extended 750 mg PO DAILY #30 tabs 03/06/25 06/02/25 Rx release 24 hr L.acidop,casei,lactis,rham-B.lact,guanakito 1 cap PO DAILY #30 caps 03/09/25 06/02/25 Rx 625 mg (10 billion cell) capsule (Advanced Probiotic) furosemide 20 mg tablet (Lasix) 60 mg PO QAM 03/23/25 06/02/25 History spironolactone 25 mg tablet 25 mg PO DAILY 04/13/25 06/02/25 History apixaban 5 mg tablet (Eliquis) 5 mg PO BID #74 tabs 04/21/25 06/02/25 Rx aspirin 81 mg chewable tablet 81 mg PO DAILY 06/02/25 06/02/25 History cyanocobalamin (vitamin B-12) 1,000 mcg PO 06/02/25 History 1,000 mcg tablet,extended release (Vitamin B-12 ER) doxycycline hyclate 100 mg PO BID 06/02/25 06/02/25 History mupirocin See Rx Instructions .Route .COMPLEX 06/02/25 06/02/25 History Past Med/Surg History Problem List Hyperglycemia due to diabetes mellitus (Acute) Failure of outpatient treatment (Acute) Diabetic foot ulcer (Acute) Cellulitis (Acute) Acute dehydration (Acute) Generalized weakness (Acute) Rhabdomyolysis (Acute) Rhabdomyolysis Cellulitis of both lower extremities Diabetes mellitus due to underlying condition, uncontrolled, with hyperglycemia, with long-term current use of insulin Major depressive disorder Cellulitis (Acute) Chronic venous insufficiency Venous ulcers of both lower extremities Stroke-like symptom Facial droop (Acute) Abdominal pain (Acute) Acute confusion (Acute) Hyperglycemia (Acute) Hyperkalemia Shortness of breath Paroxysmal atrial tachycardia Paroxysmal atrial fibrillation Methamphetamine abuse PAC (premature atrial contraction) Sinus tachycardia Atrial fibrillation with RVR Hypoxia (Acute) Hyperglycemia (Acute) Influenza A (Acute) Diabetic peripheral neuropathy (Acute) Diabetic neuropathic arthritis Abdominal wall cellulitis (Acute) Foot pain, left (Acute) Cellulitis of finger, right (Acute) Hyperglycemia (Acute) Burn of abdominal wall (Acute) Unable to care for self (Acute) Generalized muscle weakness (Acute) Ambulatory dysfunction (Acute) Noncompliance w/medication treatment due to intermit use of medication BPH (benign prostatic hyperplasia) Anxiety and depression Bronchitis Uncontrolled type 2 diabetes mellitus with hyperglycemia (Acute) Ambulatory dysfunction (Acute) Generalized weakness (Acute) Acute hyperglycemia (Acute) Morbid obesity with BMI of 40.0-44.9, adult Acute hyperglycemia (Acute) ALEJANDRA (obstructive sleep apnea) Hyperglycemia Nonischemic cardiomyopathy (Chronic) "prior EF 30% per Epic records. echo 02/2015- EF 40-45%" DM type 2 (diabetes mellitus, type 2) (Chronic) H/O TB (tuberculosis) (Chronic) H/O toxoplasmosis (Chronic) Hepatitis C (Chronic) Hypertension (Chronic) Colon polyp (Chronic) "TVA polyp on colonoscopy 09/2014" H/O colonoscopy (Chronic) "11/2015- diverticulosis" S/P cardiac cath (Chronic) "for abnormal stress test. cath 03/18/2015-essentially normal coronaries with no obstructive disease " Colon polyp Confusion (Acute) Hyperglycemia due to type 2 diabetes mellitus (Acute) DVT prophylaxis Polyneuropathy Peripheral vascular disease Depression Bilateral cellulitis of lower leg (Acute) Fatigue (Acute) Encephalopathy Hypercapnic respiratory failure Varicose veins of bilateral lower extremities with other complications Morbid obesity H/O drug abuse Medical History Closed head injury Peripheral neuropathy Acute dehydration Accidental fall tripped over dog bed, hit back of head, checked in the ED poss concussion Dysequilibrium Hepatitis C Diabetes mellitus, type 2 Depression Anxiety Hypertension Surgical History History of colonoscopy History of umbilical hernia repair x2 History of tooth extraction History of wisdom tooth extraction History of cardiac cath 03/2015 @ [facility], no stents follows with Dr. Monet Family History Mother Family history of diabetes mellitus Father Family history of diabetes mellitus Other No family history of adverse response to anesthesia Social History Smoking Status: Former smoker Tobacco Type: Cigarettes Cigarettes Per Day: Says he occasionally will smoke a cigar.; Second Hand Exposure: No; Do You Dip or Chew Tobacco: No; Hx Alcohol Use: Yes Alcohol type: beer and hard liquor Hx Substance Use: Yes Non-Prescribed Medications: Methamphetamines Last Used Substance: Hours (ago) Last Used Substance Other:: 2 days ago Substance Use Type Other:: MDMA Preferred Language: Lao Communication Ability: Effective Hearing Ability: Normal Oxygraph Operator Required: No Beliefs That Will Affect Care: None marital status: Single Current Living Situation: Alone Current Living Situation Comment: lives alone Feels Safe at Home: Yes Safety Concerns: Feels Safe At This Time Gender Identity: Male Assistive Devices: Walker Review of Systems All systems reviewed & are unremarkable except as noted in HPI & below. Physical Exam On physical examination of the left leg, there is cellulitis around the left foot and ankle. He does have pain sensation to his foot. There is a 2 cm ulceration on the plantar aspect of his left great toe. It appears to be mostly superficial.. Constitutional WD/WN, vitals as above Eyes PERRL, conjunctivae normal, anicteric sclerae ENMT external ear and nose normal, oropharynx normal Neck trachea midline, no thyromegaly Respiratory normal respiratory effort Cardiovascular RRR, no murmur, no edema Gastrointestinal (Abdomen) normal bowel sounds, soft, nontender, no hepatosplenomegaly Psychiatric A+Ox3, euthymic affect Results & Data Results & Data Laboratory Results . Diagnostic Findings X-rays and CT scan of the left foot are suggestive of some cellulitis and soft tissue swelling. There is no signs of osteomyelitis or erosion to the bone.. PG Care Time/CCT Total # of Minutes Spent Total Time Spent with Patient: Total time spent is greater than 50% in coordination of care (as documented) at patient's floor/unit and/or counseling patient: Coding Level of Care Code 81954 IN/OBS CONSULT LVL 4,60M Diagnoses Diabetic foot ulcer E11.621; L97.509
--- NOTE | 2025-06-02 08:33 | Pharmacy Report ---
Pharmacy Glycemic Short Note 2 - Date of Service June 02, 2025 - Glycemic Short BSG Results (Last 24 hours): 06/01/25 06/01/25 06/01/25 20:46 22:06 23:37 Glucose 357 H* POC Glucose 385 H* 293 H 06/02/25 06/02/25 06/02/25 03:39 05:09 07:07 Glucose 146 H POC Glucose 189 H 96 OUTPATIENT ANTIDIABETIC REGIMEN: * Toujeo 100 units SC BID * Novolog TID with meals (60/20/60 units) * Empagliflozin, metformin ASSESSMENT: * 64 yo M admitted with toe ulcer, seen by ortho today, no debridement indicated at this time, wound care. * IV Cefepime and Daptomycin. * Patient using home Toujeo, had 60 units at 0130 this AM, BSG 96mg/dl this morning, will reduce dose for now, eating well. * If patient runs out of home insulin, will change to NPH for basal insulin d/t allergy to Lantus. PLAN FOR INPATIENT GLYCEMIC CONTROL: * Hold outpatient oral diabetes medications * Basal insulin * Toujeo 40 units SQ AM, 50 units SQ PM * Bolus insulin * NovoLog per scale ACHS or Q6hrs while NPO * Goal Range: Low 110 mg/dL - High 140 mg/dL * Correction Factor: 20 mg/dL/unit * Nutritional / Prandial insulin per carb ratio of 1 unit per 4 grams CHO consumed
[2025-06-02] MEDS ORDERED: BACILLUS COAGULANS PO SCH (09:00)
[2025-06-02] MEDS ORDERED: INULIN PO SCH (09:00)
[2025-06-02] MEDS: DAPTOmycin 500 MG in SYRINGE 0 ML IV SCH (09:10)
[2025-06-02] MEDS: SPIRONOLACTONE 25 MG TAB PO SCH (09:10)
[2025-06-02] MEDS: ADVANCED PROBIOTIC 625 MG CAPSULE PO SCH (09:10)
[2025-06-02] MEDS: CEROVITE ADV FORMULA TAB PO SCH (09:10)
[2025-06-02] MEDS: APIXABAN 5 MG TABLET PO SCH (09:11)
[2025-06-02] MEDS: TAMSULOSIN HCL 0.4 MG CAP PO SCH (09:11)
[2025-06-02] MEDS: METOPROLOL SUCC 50MG EXT REL TAB PO SCH (09:11)
[2025-06-02] MEDS: ASPIRIN 81 MG ECTAB PO SCH (09:11)
[2025-06-02] MEDS: SERTRALINE HCL 100 MG TABLET PO SCH (09:12)
--- NOTE | 2025-06-02 11:36 | Hospitalist Progress Note ---
Date of Service June 02, 2025 Assessment & Plan (1) Acute hypoxemic respiratory failure: Plan: Assessment and plan below following discussion of case with ED provider and reviewing patient history/pertinent normal/abnormal diagnostic test results. Diabetic foot ulcer, left CT left foot: No abscess or osteomyelitis Blood cultures: Pending evaluated by orthopedic service, no plans for surgical intervention at this point continue daptomycin plus cefepime for now Transient hypoxemia - resolved chronic diastolic heart failure (EF 60 to 65%, TTE 2024), patient euvolemic hx nonobstructive CAD/hx PVD PAF on Eliquis hypertension, slightly elevated - improving hyperlipidemia, on statin Rx HCV status post interferon Rx, no recent [place] with [facility] [place]. DM 2 insulin requiring, suboptimal control as of recent hemoglobin A1c of 11 from April 2025 anxiety/mood disorder, at baseline DVT prophylaxis. Eliquis Full code plan of care discussed with patient in detail and at length all questions answered he is understanding, agreeable, comfortable with the plan of care Admission and Anticipated Discharge Date Admission Date: June 01, 2025 Subjective Seen resting in bedside chair, not in distress reports discomfort over the left foot Somewhat weak Denies chest pain, palpitations, dizziness, shortness of breath No other new symptoms Review of Systems Review of Systems: all noted and negative except for above Physical Exam Physical Exam: General- oriented x 3, not in distress, speaks in sentences with no effort or accessory muscle use Eyes- anicteric Neck- no JVD Lungs- clear breath sounds bilaterally, no rales/wheezes Heart- normal rate, regular rhythm; no murmurs Abdomen- normal bowel sounds, nondistended, soft, nontender Extremities- Left foot: Small ulcer base of the great toe, no active drainage or bleeding Mild pedal edema, moderate erythema with chronic venous stasis of the foot and left lower leg right foot: Chronic venous stasis changes of the right lower leg Neuro- alert, oriented x 3; no gross focal neurologic deficits Skin- warm & dry Results & Data Results & Data Vital Signs (Past 12 Hours) Vital Signs Temp Pulse Pulse Resp BP BP BP 06/02/25 07:08 36.8 C 93 H 18 133/78 06/02/25 07:00 99 H 06/02/25 02:40 94 H 06/02/25 02:30 06/02/25 02:19 36.7 C 96 H 18 157/95 H 06/02/25 02:00 36.7 C 85 22 157/95 H 06/02/25 01:28 36.8 C 95 H 16 137/98 06/02/25 00:34 100 H Pulse Ox O2 Del Method 06/02/25 07:08 96 Room Air 06/02/25 07:00 06/02/25 02:40 06/02/25 02:30 Room Air 06/02/25 02:19 97 Room Air 06/02/25 02:00 97 Room Air 06/02/25 01:28 96 Room Air 06/02/25 00:34 all noted and reviewed including below
--- NOTE | 2025-06-02 11:57 | Electrocardiogram Report ---
Test Reason : Blood Pressure : */* mmHG Vent. Rate : 97 BPM Atrial Rate : 97 BPM P-R Int : 206 ms QRS Dur : 88 ms QT Int : 364 ms P-R-T Axes : * 7 -28 degrees QTcB Int : 462 ms Normal sinus rhythm with sinus arrhythmia Possible Inferior infarct , age undetermined Abnormal ECG When compared with ECG of 09-May-2025 06:19, Premature atrial complexes are no longer Present Questionable change in QRS axis Non-specific change in ST segment in Inferior leads T wave inversion now evident in Inferior leads Confirmed by Porter Lopez ([id number]) on 06/02/2025 11:57:22 AM Referred By: REFERRED SELF Confirmed By: Porter Lopez
--- NOTE | 2025-06-03 02:28 | CT Scan Report ---
EXAM: CT head/brain wo con CLINICAL HISTORY: Left hand numbness, noac. TECHNIQUE: Axial non-contrast CT scan of the brain was performed from the skull base to the high parietal region .One of the following dose reduction techniques were utilized for this exam: Automated exposure control, adjustment of the mA and/or kV according to patient size, use of iterative reconstruction. COMPARISON: 04/12/2025 FINDINGS: Brain Parenchyma: Re- demonstration of encephalomalacic changes with prominent extra-axial space in right anterior temporal region, this could be due to Prior traumatic insult / ischemic changes. There are ill-defined iso-to hypodense areas in the subcortical and periventricular white matter bilaterally, representing chronic microvascular ischemic changes. The rest of visualized brain parenchyma shows normal appearance. No intracerebral or extra axial hematoma. Ventricular System: Prominent ventricular system. Subarachnoid Spaces: The cortical sulci and basal cisterns are prominent, consistent with senile changes. Cerebellum and Brainstem: No masses, lesions, or areas of abnormal density. Orbits: Normal appearance of the globes, optic nerves, and extraocular muscles. No evidence of orbital masses or abnormal density. Visualised Paranasal sinuses: Clear paranasal sinuses. Right sided nasal septal deviation . Mastoid Air Cells: Clear mastoid air cells. Skull and soft tissue: Post craniotomy changes in left fronto-parietal region. Old fracture of right parietotemporal bone IMPRESSION: 1. No major acute territorial infarction seen at present study. Early changes of stroke may not be detected on a CT scan. If strong clinical suspicion of stroke then suggest MRI with diffusion-weighted imaging. 2. Re-demonstration of encephalomalacic changes with prominent extra-axial space in right anterior temporal region, this could be due to prior traumatic insult / ischemic changes. 3. Chronic microvascular ischemic changes and senile cortical atrophy. 4. No significant interval changes since previous study. Electronically signed by Feliciano Suh 06-03-2025 02:28 AM
--- NOTE | 2025-06-03 02:38 | Communication Note ---
Date of Service: June 03, 2025 Patient complaining of left hand tingling numbness. No headache or neck pain. Patient unable to specify duration of symptoms. AP Left hand numbness Eliquis Rx CT head
[2025-06-03 08:35] LABS: Hematocrit (blood only) 44.5 % (42.0-52.0); Hemoglobin 14.8 g/dl (14.0-18.0); Immature Granulocytes # (auto) 0.04 K/uL (0.01-0.20); Immature Granulocytes % (auto) 0.4 %; Mean Corpuscular Hemoglobin 28.7 pg (25.0-34.0); Mean Corpuscular Volume 86.4 fL (80.0-100.0); Platelet Count 249 K/uL (130-400); RDW Standard Deviation 42.1 fL (36.4-46.3); Red Blood Count 5.15 M/uL (4.70-6.10); White Blood Count 9.28 K/ul (4.8-10.8)
[2025-06-03 08:54] LABS: Alanine Aminotransferase 18 U/L (7-52); Bilirubin,Total 0.7 mg/dl (0.2-1.0); Blood Urea Nitrogen 13 mg/dl (6-23); Calcium 8.9 mg/dl (8.6-10.3); Carbon Dioxide 30 mmol/L (21-32); Chloride 107 mmol/L (98-107); Creatinine Clr Calc Pharmacy 156.3 ml/min; Glucose 83 mg/dl (70-99(Fasting)); Total Protein 6.0 gm/dl (6.0-8.3)
[2025-06-03 09:44] LABS: Alkaline Phosphatase 96.0 U/L (34-104); Magnesium 2.1 mg/dl (1.7-2.4); Potassium 4.3 mmol/L (3.5-5.1); Sodium 139.0 mmol/L (136-145)
--- NOTE | 2025-06-03 18:34 | Hospitalist Progress Note ---
Date of Service June 03, 2025 Assessment & Plan (1) Acute hypoxemic respiratory failure: Plan: Assessment and plan below following discussion of case with ED provider and reviewing patient history/pertinent normal/abnormal diagnostic test results. Diabetic foot ulcer, left great toe Wound, Right great toe BL lower leg cellulitis CT left foot: No abscess or osteomyelitis Blood cultures: Pending evaluated by orthopedic service, no plans for surgical intervention at this point continue daptomycin plus cefepime for now -- clinically improving: edema mostly resolved, erythema also much improved follow blood cultures continue IV abx for now Podiatry to see patient tomorrow Wound care consulted as well Episode of L hand Paresthesias - resolved CT head no acute CVA continue Xarelto continue Telemetry monitoring Transient hypoxemia - resolved chronic diastolic heart failure (EF 60 to 65%, TTE 2024), patient euvolemic hx nonobstructive CAD/hx PVD PAF on Eliquis hypertension, slightly elevated - improving hyperlipidemia, on statin Rx HCV status post interferon Rx, 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 DM 2 insulin requiring, suboptimal control as of recent hemoglobin A1c of 11 from April 2025 anxiety/mood disorder, at baseline DVT prophylaxis. Eliquis Full code plan of care discussed with patient in detail and at length all questions answered he is understanding, agreeable, comfortable with the plan of care Admission and Anticipated Discharge Date Admission Date: June 01, 2025 Subjective seen resting in bed, comfortable states he feels tired today, did not sleep well overnight states leg pain is improved today no fever/chills no other symptoms Review of Systems Review of Systems: all noted and negative except for above Physical Exam Physical Exam: General- oriented x 3, not in distress, speaks in sentences with no effort or accessory muscle use Eyes- anicteric Neck- no JVD Lungs- clear breath sounds bilaterally, no rales/wheezes Heart- normal rate, regular rhythm; no murmurs Abdomen- normal bowel sounds, nondistended, soft, nontender Extremities- trace BL Lower leg and feet edema, minimal erythema L great toe: open ulcer dorsal aspect, no bleeding or discharge R gret toe: small wound lateral side, scabbed Neuro- alert, oriented x 3; no gross focal neurologic deficits Skin- warm & dry Results & Data Results & Data Vital Signs (Past 12 Hours) Vital Signs Temp Pulse Pulse Resp BP BP Pulse Ox 06/03/25 15:06 36.3 C L 70 18 123/78 97 06/03/25 11:00 36.7 C 81 20 122/72 93 06/03/25 08:00 79 06/03/25 07:45 36.5 C 86 20 108/76 99 O2 Del Method 06/03/25 15:06 Room Air 06/03/25 11:00 Room Air 06/03/25 08:00 06/03/25 07:45 Room Air all noted and reviewed including below
[2025-06-04 07:19] LABS: Alanine Aminotransferase 16.0 U/L (7-52); Albumin Globulin Ratio 0.9 (0.9-2); Alkaline Phosphatase 92.0 U/L (34-104); Anion Gap 1.0 (3-11); Bilirubin,Total 0.6 mg/dl (0.2-1.0); Blood Urea Nitrogen 15.0 mg/dl (6-23); Calcium 8.7 mg/dl (8.6-10.3); Carbon Dioxide 31.0 mmol/L (21-32); Chloride 106.0 mmol/L (98-107); Creatinine Clr Calc Pharmacy 139.3 ml/min; Globulin 3.1 gm/dl (2.5-4.0); Glucose 146.0 mg/dl (70-99(Fasting)); Potassium 4.4 mmol/L (3.5-5.1); Sodium 138.0 mmol/L (136-145); Total Protein 6.0 gm/dl (6.0-8.3)
--- NOTE | 2025-06-04 09:50 | Pharmacy Report ---
Pharmacy Glycemic Short Note 2 - Date of Service June 04, 2025 - Glycemic Short BSG Results (Last 24 hours): 06/03/25 06/03/25 06/03/25 11:01 16:03 20:28 Glucose POC Glucose 129 H 195 H 257 H 06/04/25 06/04/25 06:20 07:13 Glucose 146 H POC Glucose 133 H OUTPATIENT ANTIDIABETIC REGIMEN: * Toujeo 100 units SC BID * Novolog SC TID with meals (60/20/60 units) * Empagliflozin 25 mg PO daily * Metformin ER 750 mg PO daily * HbA1c: 11% (04/13/25) ASSESSMENT: 06/04: * Facundo's BSGs have been well controlled over the last 48 hours, ranging 90- 257 mg/dL. Requiring ~65 units of insulin per day, 30-40 of which were basal. * Fasting BSG this AM was 133 mg/dL. Will continue to hold basal insulin at bedtime. However, will increase AM basal dose to 50 units today. Believe lower BSGs over the last 48 hours can be explained by increased basal dose received on first day of admission. * Stressors remain stable. On abx in the form of Cefepime and Daptomycin. Ordered and tolerating a T2DM diet. * Will tighten Novolog parameters this AM to help control postprandial hyperglycemia. 06/02: * 64 yo M admitted with toe ulcer, seen by ortho today, no debridement indicated at this time, wound care. * IV Cefepime and Daptomycin. * Patient using home Toujeo, had 60 units at 0130 this AM, BSG 96mg/dl this morning, will reduce dose for now, eating well. * If patient runs out of home insulin, will change to NPH for basal insulin d/t allergy to Lantus. PLAN FOR INPATIENT GLYCEMIC CONTROL: * Hold outpatient oral diabetes medications * Basal insulin * Toujeo 50 units SC AM * Bolus insulin * NovoLog per scale ACHS or Q6hrs while NPO * Goal Range: Low 110 mg/dL - High 140 mg/dL * Correction Factor: 20 mg/dL/unit * Nutritional / Prandial insulin per carb ratio of 1 unit per 5 grams CHO consumed
--- NOTE | 2025-06-04 15:59 | Podiatry Consultation ---
Date of Consultation June 04, 2025 Assessment & Plan (1) Diabetic ulcer of left great toe: (2) Cellulitis: Site of cellulitis of extremity: toe Laterality: left Site of cellulitis: extremity Qualified Code(s): L03.032 - Cellulitis of left toe Plan - Order: Dressing change left hallux once daily with Aquacel Ag and a bordered foam. Dressed bilateral lower extremity with Tubigrip dressing from the base of the toes to the proximal calf. - Consult placed for orthotics for patient to be fit with tall cam walker for the left lower extremity to be worn at all times while ambulating. - Wound culture swab order placed for left hallux. Left hallux wound evaluated. Persistent erythema and edema with moderate seropurulent drainage to the dressing. No indication for surgical debridement at this time. Thank for consulting podiatry to aid in the care of this patient. Will continue to follow wound progress while he remains in house and recommend follow-up in the wound care center within 2 weeks of discharge for continued monitoring and debridement as needed. He should continue dressing changes once daily with Aquacel Ag and a bordered foam dressing following discharge. Should continue CAM boot to left lower extremity using walker for stabilization at all times while ambulating until wound is epithelialized. Would benefit from subsequent evaluation by the diabetic foot clinic for appropriate shoe gear and education. History of Present Illness Reason for Consultation: Left hallux ulceration Attending Physician: Sonido Starr MD History of Present Illness 64-year-old male with past medical history significant for chronic diastolic heart failure, CAD, PVD, PAF on Eliquis, hypertension, hyperlipidemia, HCV status post interferon, poorly controlled type 2 diabetes (insulin-dependent), diabetic peripheral neuropathy, chronic venous insufficiency. Patient reports regular use of bilateral lower extremity compression stockings however 3 to 4 w eeks ago he had significantly increased bilateral lower extremity edema after decreasing p.o. Lasix. Unfortunately he had a fall with bilateral leg injuries which went on to develop cellulitis. He was seen in the emergency department 3 weeks ago and discharged on p.o. Keflex. He had a subsequent prescription for doxycycline from his PCP. Bilateral leg wound and cellulitis subsequently resolved. 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 Patient is unaware of how long the ulceration was present and reports total loss of protective sensation to the bilateral foot. He was encouraged to report to the emergency department. On arrival to the emergency department he received IV vancomycin and cefepime which was transitioned to daptomycin and cefepime on admission to the [facility] floor. CT of the left foot is obtained 06/01/2025 showing diffuse subcutaneous stranding and thickening along the dorsum of the foot likely secondary to cellulitis. No radiographic signs of osteomyelitis or abscess formation observed. Allergies Allergy/AdvReac Type Severity Reaction Status Date / Time shellfish derived Allergy Severe Swelling Verified 03/30/25 13:50 amoxicillin Allergy Intermediate HIVES Verified 03/30/25 13:50 clavulanic acid Allergy Intermediate HIVES Verified 03/30/25 13:50 permethrin Allergy Intermediate swelling Verified 03/30/25 13:50 shrimp Allergy Intermediate SWELLS Verified 03/30/25 13:50 sulfamethoxazole Allergy Unknown CAN'T Verified 03/30/25 13:50 [From Bactrim] REMEMBER trimethoprim [From Bactrim] Allergy Unknown CAN'T Verified 03/30/25 13:50 REMEMBER insulin glargine AdvReac Severe CHF PER Verified 03/30/25 13:50 [From Lantus U-100 Insulin] [facility] Home Medications Medication Instructions Recorded Confirmed Type empagliflozin 25 mg tablet 25 mg PO QAM 08/01/22 06/02/25 History (Jardiance) ascorbic acid (vitamin C) 500 mg 1,000 mg PO DAILY 09/21/22 06/02/25 History tablet (Vitamin C) multivitamin with minerals 1 tab PO DAILY 09/21/22 06/02/25 History (Multiple Vitamin-Minerals tablet) lisinopril 20 mg tablet 20 mg PO DAILY 10/10/23 06/02/25 History sertraline 100 mg tablet 100 mg PO QAM 10/10/23 06/02/25 History insulin glargine U-300 conc 300 100 unit subcut BID 10/14/23 06/02/25 History unit/mL (3 mL) subcutaneous pen (Toujeo Max U-300 SoloStar) albuterol sulfate 90 mcg/actuation 90 mcg inhalation Q4H PRN Wheezing 06/06/24 06/02/25 History aerosol inhaler fluticasone furoate 100 100 mcg inhalation DAILY 08/05/24 06/02/25 History mcg/actuation blister powder for inhalation (Arnuity Ellipta) metoprolol succinate 50 mg 50 mg PO BID #60 tabs 12/13/24 06/02/25 Rx tablet,extended release 24 hr insulin aspart U-100 100 unit/mL 60 unit subcut BID 12/15/24 06/02/25 History (3 mL) subcutaneous pen nitroglycerin 0.4 mg sublingual 0.4 mg sublingual DIRECTED PRN 02/28/25 06/02/25 History tablet Chest Pain tamsulosin 0.4 mg capsule 0.4 mg PO QAM 02/28/25 06/02/25 History Bacillus coagulans-inulin 1 1 cap PO DAILY 03/02/25 06/02/25 History billion cell-250 mg capsule bupropion HCl 300 mg 24 hr tablet, 300 mg PO DAILY 03/02/25 06/02/25 History extended release cinnamon bark 500 mg capsule 500 mg PO DAILY ##0 03/02/25 06/02/25 History (Cinnamon) metformin 750 mg tablet,extended 750 mg PO DAILY #30 tabs 03/06/25 06/02/25 Rx release 24 hr L.acidop,casei,lactis,rham-B.lact,guanakito 1 cap PO DAILY #30 caps 03/09/25 06/02/25 Rx 625 mg (10 billion cell) capsule (Advanced Probiotic) furosemide 20 mg tablet (Lasix) 60 mg PO QAM 03/23/25 06/02/25 History spironolactone 25 mg tablet 25 mg PO DAILY 04/13/25 06/02/25 History apixaban 5 mg tablet (Eliquis) 5 mg PO BID #74 tabs 04/21/25 06/02/25 Rx aspirin 81 mg chewable tablet 81 mg PO DAILY 06/02/25 06/02/25 History cyanocobalamin (vitamin B-12) 1,000 mcg PO 06/02/25 History 1,000 mcg tablet,extended release (Vitamin B-12 ER) doxycycline hyclate 100 mg PO BID 06/02/25 06/02/25 History mupirocin See Rx Instructions .Route .COMPLEX 06/02/25 06/02/25 History Patient History Medical History Closed head injury Peripheral neuropathy Acute dehydration Accidental fall tripped over dog bed, hit back of head, checked in the ED poss concussion Dysequilibrium Hepatitis C Diabetes mellitus, type 2 Depression Anxiety Hypertension Surgical History History of colonoscopy History of umbilical hernia repair x2 History of tooth extraction History of wisdom tooth extraction History of cardiac cath 03/2015 @ [facility], no stents follows with Dr. Monet Family History Mother Family history of diabetes mellitus Father Family history of diabetes mellitus Other No family history of adverse response to anesthesia Social History Smoking Status: Former smoker Tobacco Type: Cigarettes Cigarettes Per Day: Says he occasionally will smoke a cigar.; Second Hand Exposure: No; Do You Dip or Chew Tobacco: No; Hx Alcohol Use: Yes Alcohol type: beer and hard liquor Hx Substance Use: Yes Non-Prescribed Medications: Methamphetamines Last Used Substance: Hours (ago) Last Used Substance Other:: 2 days ago Substance Use Type Other:: MDMA Preferred Language: Lithuanian Communication Ability: Effective Hearing Ability: Normal 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 Denies pain in the left foot. Physical Exam Physical Exam: Const: Appears well developed and well nourished. No signs of acute distress present. CV: Extremities: No cyanosis Capillary refill time is less than 2 seconds all digits of the bilateral foot. Posterior tibial and dorsalis pedis pulses are palpable bilateral. Skin: Bilateral lower extremity venous stasis changes with thinning and atrophy of the skin from the distal knee to the level of the ankle. Neuro: Loss of protective sensation bilateral foot Psych: Mood/Affect: Mood is normal. Affect is normal. Cognition: Orientation is intact to person, place and time. Focused lower extremity musculoskeletal exam: Leg: No pain with compression of the calf muscle. Right foot: Recently healed ulceration to the plantar aspect of the right hallux with remnants of blood-tinged hyperkeratotic tissue at the level of the plantar interphalangeal joint. Left foot: Well-circumscribed ulceration the plantar aspect of the left hallux with mixed granulation tissue and subcutaneous fat. Wound does not probe or track in any direction. There is no exposed bone or tendon or joint capsule at this time. Moderate seropurulent drainage to the bordered foam dressing with no active drainage noted. Unable to express any drainage on compression of the hallux. Results & Data Vital Signs (Past 12 Hours) Vital Signs Temp Pulse Pulse Resp BP Pulse Ox O2 Del Method 06/04/25 15:41 36.3 C L 64 18 121/79 95 Room Air 06/04/25 14:26 76 06/04/25 11:01 36.5 C 65 18 117/76 95 Room Air 06/04/25 08:00 73 06/04/25 07:14 36.6 C 87 18 117/71 93 Room Air PG Care Time/CCT Total # of Minutes Spent Total Time Spent with Patient: Total time spent is greater than 50% in coordination of care (as documented) at patient's floor/unit and/or counseling patient: Coding Level of Care Code 67176 INT INP/OBS CARE 2MIN Diagnoses Diabetic ulcer of left great toe E11.621; L97.529 Cellulitis of toe of left foot L03.032 Site of cellulitis of extremity: toe Laterality: left Site of cellulitis: extremity
--- NOTE | 2025-06-04 16:41 | Hospitalist Progress Note ---
Date of Service June 04, 2025 Assessment & Plan (1) Acute hypoxemic respiratory failure: Plan: Assessment and plan below following discussion of case with ED provider and reviewing patient history/pertinent normal/abnormal diagnostic test results. Diabetic foot ulcer, left great toe Wound, Right great toe BL lower leg cellulitis CT left foot: No abscess or osteomyelitis Blood cultures: Pending evaluated by orthopedic service, no plans for surgical intervention at this point continue daptomycin plus cefepime for now -- clinically improving: edema mostly resolved, erythema also much improved follow blood cultures continue IV abx for now Podiatry to see patient tomorrow Wound care consulted as well 06/04 Continues to improve clinically Blood cultures negative Continue daptomycin plus cefepime Episode of L hand Paresthesias - resolved CT head no acute CVA continue Xarelto continue Telemetry monitoring Transient hypoxemia - resolved chronic diastolic heart failure (EF 60 to 65%, TTE 2024), patient euvolemic hx nonobstructive CAD/hx PVD PAF on Eliquis hypertension, slightly elevated - improving hyperlipidemia, on statin Rx HCV status post interferon Rx, 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 DM 2 insulin requiring, suboptimal control as of recent hemoglobin A1c of 11 from April 2025 anxiety/mood disorder, at baseline DVT prophylaxis. Eliquis Full code plan of care discussed with patient in detail and at length all questions answered he is understanding, agreeable, comfortable with the plan of care Admission and Anticipated Discharge Date Admission Date: June 01, 2025 Subjective seen resting in bed, comfortable States he feels That he is improving overall left lower leg and foot pain No fevers or chills No other new symptoms Review of Systems Review of Systems: all noted and negative except for above Physical Exam Physical Exam: General- oriented x 3, not in distress, speaks in sentences with no effort or accessory muscle use Eyes- anicteric Neck- no JVD Lungs- clear breath sounds bilaterall Heart- normal rate, regular rhythm; no murmurs Abdomen- normal bowel sounds, nondistended, soft, nontender Extremities- NO pretibial edema, no calf tenderness. very minimal erythema left great toe ulcer: Seems to be healing well, no bleeding or discharge Right great toe wound: Positive scabbing Neuro- alert, oriented x 3; no gross focal neurologic deficits Skin- warm & dry Results & Data Results & Data Vital Signs (Past 12 Hours) Vital Signs Temp Pulse Pulse Resp BP Pulse Ox O2 Del Method 06/04/25 15:41 36.3 C L 64 18 121/79 95 Room Air 06/04/25 14:26 76 06/04/25 11:01 36.5 C 65 18 117/76 95 Room Air 06/04/25 08:00 73 06/04/25 07:14 36.6 C 87 18 117/71 93 Room Air all noted and reviewed including below
--- NOTE | 2025-06-04 17:26 | Infectious Disease Consult ---
Date of Service June 04, 2025 Telehealth Information I performed this visit using a real-time telehealth connection between my location and the patients location ([facility]). After connecting through interactive tele-video, patient was identified by name and date of and/or wristband check.Patient (or authorized healthcare access services representative) was informed that this was a telemedicine visit and it was being conducted confidentially over secure lines. My office door was closed and no o ne else was present in the room with me.Patient (or authorized healthcare access services representative) provided consent to proceed with the visit, expressed an understanding of privacy and security of the telemedicine visit, and gave permission to have a hospital access services representative in the room in order to assist with the visit and to conduct portions of the visit, as needed. I informed the patient (or authorized healthcare access services representative) that I reviewed their record and presented the opportunity for them to ask any questions regarding the visit today. The patient agreed to participate. Assessment & Plan (1) Diabetic foot ulcer: Plan: I reviewed the notes from Podiatry. If there is concern for anything deeper than cellulitis (eg OM) then I recommend an MRI. In the meantime, revise the patient's ABX regimen to: vancomycin plus cefepime. If there is no abscess/OM either ny MRI or on clinical grounds, then we might be able to use a short course of IV ABX (perhaps followed by PO ABX). All orders are deferred to the primary/requesting service. All dosing is deferred to [facility] pharmacy (I do not have an ID pharmacist available at this time). Recommendations were communicated to and/or discussed with the primary/requesting service. These recommendations are not final. For subsequent recommendations, use the on- call schedule to find out which ID provider is covering your facility. History of Present Illness History of Present Illness The patient was admitted for dyspnea but was found to have a LE wound with possible foot infection. Allergies Allergy/AdvReac Type Severity Reaction Status Date / Time shellfish derived Allergy Severe Swelling Verified 03/30/25 13:50 amoxicillin Allergy Intermediate HIVES Verified 03/30/25 13:50 clavulanic acid Allergy Intermediate HIVES Verified 03/30/25 13:50 permethrin Allergy Intermediate swelling Verified 03/30/25 13:50 shrimp Allergy Intermediate SWELLS Verified 03/30/25 13:50 sulfamethoxazole Allergy Unknown CAN'T Verified 03/30/25 13:50 [From Bactrim] REMEMBER trimethoprim [From Bactrim] Allergy Unknown CAN'T Verified 03/30/25 13:50 REMEMBER insulin glargine AdvReac Severe CHF PER Verified 03/30/25 13:50 [From Lantus U-100 Insulin] [facility] Home Medications Medication Instructions Recorded Confirmed Type empagliflozin 25 mg tablet 25 mg PO QAM 08/01/22 06/02/25 History (Jardiance) ascorbic acid (vitamin C) 500 mg 1,000 mg PO DAILY 09/21/22 06/02/25 History tablet (Vitamin C) multivitamin with minerals 1 tab PO DAILY 09/21/22 06/02/25 History (Multiple Vitamin-Minerals tablet) lisinopril 20 mg tablet 20 mg PO DAILY 10/10/23 06/02/25 History sertraline 100 mg tablet 100 mg PO QAM 10/10/23 06/02/25 History insulin glargine U-300 conc 300 100 unit subcut BID 10/14/23 06/02/25 History unit/mL (3 mL) subcutaneous pen (Toujeo Max U-300 SoloStar) albuterol sulfate 90 mcg/actuation 90 mcg inhalation Q4H PRN Wheezing 06/06/24 06/02/25 History aerosol inhaler fluticasone furoate 100 100 mcg inhalation DAILY 08/05/24 06/02/25 History mcg/actuation blister powder for inhalation (Arnuity Ellipta) metoprolol succinate 50 mg 50 mg PO BID #60 tabs 12/13/24 06/02/25 Rx tablet,extended release 24 hr insulin aspart U-100 100 unit/mL 60 unit subcut BID 12/15/24 06/02/25 History (3 mL) subcutaneous pen nitroglycerin 0.4 mg sublingual 0.4 mg sublingual DIRECTED PRN 02/28/25 06/02/25 History tablet Chest Pain tamsulosin 0.4 mg capsule 0.4 mg PO QAM 02/28/25 06/02/25 History Bacillus coagulans-inulin 1 1 cap PO DAILY 03/02/25 06/02/25 History billion cell-250 mg capsule bupropion HCl 300 mg 24 hr tablet, 300 mg PO DAILY 03/02/25 06/02/25 History extended release cinnamon bark 500 mg capsule 500 mg PO DAILY ##0 03/02/25 06/02/25 History (Cinnamon) metformin 750 mg tablet,extended 750 mg PO DAILY #30 tabs 03/06/25 06/02/25 Rx release 24 hr L.acidop,casei,lactis,rham-B.lact,guanakito 1 cap PO DAILY #30 caps 03/09/25 06/02/25 Rx 625 mg (10 billion cell) capsule (Advanced Probiotic) furosemide 20 mg tablet (Lasix) 60 mg PO QAM 03/23/25 06/02/25 History spironolactone 25 mg tablet 25 mg PO DAILY 04/13/25 06/02/25 History apixaban 5 mg tablet (Eliquis) 5 mg PO BID #74 tabs 04/21/25 06/02/25 Rx aspirin 81 mg chewable tablet 81 mg PO DAILY 06/02/25 06/02/25 History cyanocobalamin (vitamin B-12) 1,000 mcg PO 06/02/25 History 1,000 mcg tablet,extended release (Vitamin B-12 ER) doxycycline hyclate 100 mg PO BID 06/02/25 06/02/25 History mupirocin See Rx Instructions .Route .COMPLEX 06/02/25 06/02/25 History Patient History Medical History Closed head injury Peripheral neuropathy Acute dehydration Accidental fall tripped over dog bed, hit back of head, checked in the ED poss concussion Dysequilibrium Hepatitis C Diabetes mellitus, type 2 Depression Anxiety Hypertension Surgical History History of colonoscopy History of umbilical hernia repair x2 History of tooth extraction History of wisdom tooth extraction History of cardiac cath 03/2015 @ [facility], no stents follows with Dr. Monet Family History Mother Family history of diabetes mellitus Father Family history of diabetes mellitus Other No family history of adverse response to anesthesia Social History Smoking Status: Former smoker Tobacco Type: Cigarettes Cigarettes Per Day: Says he occasionally will smoke a cigar.; Second Hand Exposure: No; Do You Dip or Chew Tobacco: No; Hx Alcohol Use: Yes Alcohol type: beer and hard liquor Hx Substance Use: Yes Non-Prescribed Medications: Methamphetamines Last Used Substance: Hours (ago) Last Used Substance Other:: 2 days ago Substance Use Type Other:: MDMA Preferred Language: Swedish Communication Ability: Effective Hearing Ability: Normal 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 Beliefs That Will Affect Care: None marital status: Single Current Living Situation: Alone Current Living Situation Comment: lives alone Feels Safe at Home: Yes Safety Concerns: Feels Safe At This Time Gender Identity: Male Assistive Devices: Cane, Walker and Other Review of Systems As reviewed in HPI; a complete ROS was otherwise negative Physical Exam Vitals: see EMR Exam limited due to constraints of telemedicine Gen/Constitutional: appears at stated age, NAD, nontoxic Head: AT, NC Eyes: sclera anicteric, no conjunctival injection ENT: MMM, trachea midline Card: appears to be well-perfused Resp: not tachypneic, nml effort, symmetric chest rise, no accessory muscle use Derm: no visible diaphoresis, no visible rash, no visible jaundice Results & Data Vital Signs (Past 12 Hours) Vital Signs Temp Pulse Pulse Resp BP Pulse Ox O2 Del Method 06/04/25 15:41 36.3 C L 64 18 121/79 95 Room Air 06/04/25 14:26 76 06/04/25 11:01 36.5 C 65 18 117/76 95 Room Air 06/04/25 08:00 73 06/04/25 07:14 36.6 C 87 18 117/71 93 Room Air Laboratory Results SEE EMR Diagnostic Findings SEE EMR
[2025-06-05] MEDS ORDERED: VANCOMYCIN CONSULT ACTIVE PRN (07:39)
--- NOTE | 2025-06-05 08:18 | Podiatry Progress Note ---
Date of Service June 05, 2025 Assessment & Plan (1) Diabetic ulcer of left great toe: Plan - Continue: Dressing change left hallux once daily with Aquacel Ag and a bordered foam. Dressed bilateral lower extremity with Tubigrip dressing from the base of the toes to the proximal calf. - Continue cam boot at all times while weightbearing and ambulating to the left foot using walker for stability. - Wound culture swab left hallux 06/04/2025: Pending Left hallux wound reevaluated with no deep extension, tracking, probing or signs of fluid collection. CT results and x-ray results reviewed with no radiographic signs of osteomyelitis. Decreased erythema and edema to the left hallux this morning. No indication for left foot MRI or concern for osteomyelitis from current active stiffness at this time. If discharged patient should continue to change dressing once daily with Aquacel Ag and a bordered foam dressing to the left hallux. Continue cam boot at all times while weightbearing and ambulating to the left foot using walker for stability. Recommend continuing p.o. antibiotics at discharge for soft tissue coverage. Follow-up in the wound clinic within 2 weeks of discharge. Admission and Anticipated Discharge Date Admission Date: June 01, 2025 Subjective Patient seen resting in hospital bed. Dressing in place today left hallux wound. Denies pain to the left foot. He did receive his cam walker from orthotics department and has been wearing at all times while ambulating. Review of Systems Review of Systems: Denies nausea vomiting fever chills. Denies pain in the left foot. All other systems reviewed and negative unless otherwise stated in HPI. Physical Exam Physical Exam: Const: Appears well developed and well nourished. No signs of acute distress present. CV: Extremities: No cyanosis Capillary refill time is less than 2 seconds all digits of the bilateral foot. Posterior tibial and dorsalis pedis pulses are palpable bilateral. Skin: Bilateral lower extremity venous stasis changes with thinning and atrophy of the skin from the distal knee to the level of the ankle. Neuro: Loss of protective sensation bilateral foot Psych: Mood/Affect: Mood is normal. Affect is normal. Cognition: Orientation is intact to person, place and time. Focused lower extremity musculoskeletal exam: Leg: No pain with compression of the calf muscle. Right foot: Recently healed ulceration to the plantar aspect of the right hallux with remnants of blood-tinged hyperkeratotic tissue at the level of the plantar interphalangeal joint. Left foot: Well-circumscribed ulceration the plantar aspect of the left hallux with mixed granulation tissue and subcutaneous fat. Wound does not probe or track in any direction. There is no exposed bone or tendon or joint capsule at this time. Moderate serous drainage to the bordered foam dressing with no active drainage noted. Unable to express any drainage on compression of the hallux. Decreased erythema and edema to the left hallux. Results & Data Results & Data Vital Signs (Past 12 Hours) Vital Signs Temp Pulse Pulse Resp BP BP Pulse Ox 06/05/25 07:48 06/05/25 07:34 36.9 C 61 20 135/88 96 06/05/25 06:59 69 06/05/25 02:39 36.6 C 71 18 92/51 L 96 06/04/25 22:45 80 06/04/25 22:00 36.2 C L 74 18 122/82 94 O2 Del Method 06/05/25 07:48 Room Air 06/05/25 07:34 Room Air 06/05/25 06:59 06/05/25 02:39 Room Air 06/04/25 22:45 06/04/25 22:00 Room Air Coding Level of Care Code 68797 SUB INP/OBS CARE 235MIN Diagnoses Diabetic ulcer of left great toe E11.621; L97.529
[2025-06-05] MEDS ORDERED: VANCOMYCIN HCL 1,750 MG in SODIUM CHLORIDE 0.9% 500 ML IV SCH (09:00)
--- NOTE | 2025-06-05 09:00 | Pharmacy Report ---
Pharmacy Glycemic Short Note 2 - Date of Service June 05, 2025 - Glycemic Short BSG Results (Last 24 hours): 06/04/25 06/04/25 06/04/25 11:00 16:17 20:18 POC Glucose 216 H 176 H 254 H 06/05/25 08:03 POC Glucose 161 H OUTPATIENT ANTIDIABETIC REGIMEN: * Toujeo 100 units SC BID * Novolog SC TID with meals (60/20/60 units) * Empagliflozin 25 mg PO daily * Metformin ER 750 mg PO daily * HbA1c: 11% (04/13/25) ASSESSMENT: 06/05: * Patient received 76 units of insulin yesterday, 50 of which were basal. BSGs were: [phone] mg/dL. * Fasting BSG this AM was 161 mg/dL, trending upward. Will increase basal by 20% this AM. * Remains on Daptomycin + Cefepime. Tolerating T2DM diet. No change to Novolog today. 06/04: * Facundo's BSGs have been well controlled over the last 48 hours, ranging 90- 257 mg/dL. Requiring ~65 units of insulin per day, 30-40 of which were basal. * Fasting BSG this AM was 133 mg/dL. Will continue to hold basal insulin at bedtime. However, will increase AM basal dose to 50 units today. Believe lower BSGs over the last 48 hours can be explained by increased basal dose received on first day of admission. * Stressors remain stable. On abx in the form of Cefepime and Daptomycin. Ordered and tolerating a T2DM diet. * Will tighten Novolog parameters this AM to help control postprandial hyperglycemia. 06/02: * 64 yo M admitted with toe ulcer, seen by ortho today, no debridement indicated at this time, wound care. * IV Cefepime and Daptomycin. * Patient using home Toujeo, had 60 units at 0130 this AM, BSG 96mg/dl this morning, will reduce dose for now, eating well. * If patient runs out of home insulin, will change to NPH for basal insulin d/t allergy to Lantus. PLAN FOR INPATIENT GLYCEMIC CONTROL: * Hold outpatient oral diabetes medications * Basal insulin * Toujeo 60 units SC AM * Bolus insulin * NovoLog per scale ACHS or Q6hrs while NPO * Goal Range: Low 110 mg/dL - High 140 mg/dL * Correction Factor: 20 mg/dL/unit * Nutritional / Prandial insulin per carb ratio of 1 unit per 5 grams CHO consumed
--- NOTE | 2025-06-05 16:22 | Hospitalist Progress Note ---
Date of Service June 05, 2025 Assessment & Plan (1) Acute hypoxemic respiratory failure: Plan: Assessment and plan below following discussion of case with ED provider and reviewing patient history/pertinent normal/abnormal diagnostic test results. Diabetic foot ulcer, left great toe Wound, Right great toe BL lower leg cellulitis CT left foot: No abscess or osteomyelitis Blood cultures: Negative Left toe wound culture: Pending evaluated by orthopedic service, no plans for surgical intervention at this point podiatry service consulted, debridement not recommended, does not feel patient has osteomyelitis hence no need for MRI 06/05 -- clinically improving: edema mostly resolved, erythema also much improved -- ID service recommends total of 5-day course of daptomycin plus cefepime- day number 4 out of 5 - per Ortho: If discharged patient should continue to change dressing once daily with Aquacel Ag and a bordered foam dressing to the left hallux. Continue cam boot at all times while weightbearing and ambulating to the left foot using walker for stability. Recommend continuing p.o. antibiotics at discharge for soft tissue coverage. Follow-up in the wound clinic within 2 weeks of discharge. 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 DM 2 insulin requiring, suboptimal control as of recent hemoglobin A1c of 11 from April 2025 anxiety/mood disorder, at baseline DVT prophylaxis. Eliquis Full code Disposition anticipate d/c tomorrow Admission and Anticipated Discharge Date Admission Date: June 01, 2025 Subjective Earlier in a.m., RN reported that the patient was reporting chest pain, pressure EKG no acute ischemia Troponin x 2 negative seen resting in bed, comfortable, not in distress States he feels fine overall, chest pain resolved Feels tired, minimal leg discomfort No other new symptom Review of Systems Review of Systems: all noted and negative except for above Physical Exam Physical Exam: General- oriented x 3, not in distress, speaks in sentences with no effort or accessory muscle use Eyes- anicteric Neck- no JVD Lungs- clear breath sounds bilaterally, no rales/wheezes Heart- normal rate, regular rhythm; no murmurs Abdomen- normal bowel sounds, nondistended, soft, nontender Extremities- no Bilateral leg edema, very minimal erythema right great toe wound: Healing well Left great toe wound: Healing well Neuro- alert, oriented x 3; no gross focal neurologic deficits Skin- warm & dry Results & Data Results & Data Vital Signs (Past 12 Hours) Vital Signs Temp Pulse Pulse Resp BP Pulse Ox O2 Del Method 06/05/25 14:57 36.8 C 68 20 125/78 96 Room Air 06/05/25 13:54 71 06/05/25 11:22 36.8 C 59 L 18 136/83 98 Room Air 06/05/25 07:48 Room Air 06/05/25 07:34 36.9 C 61 20 135/88 96 Room Air 06/05/25 06:59 69 all noted and reviewed including below
--- NOTE | 2025-06-06 05:55 | Electrocardiogram Report ---
Test Reason : Blood Pressure : */* mmHG Vent. Rate : 63 BPM Atrial Rate : 63 BPM P-R Int : 208 ms QRS Dur : 84 ms QT Int : 424 ms P-R-T Axes : 55 68 84 degrees QTcB Int : 433 ms Sinus rhythm Premature atrial complexes Otherwise normal ECG When compared with ECG of 01-Jun-2025 21:22, Vent. rate has decreased by 34 bpm Borderline criteria for Inferior infarct are no longer Present T wave inversion no longer evident in Inferior leads Confirmed by Iftikhar Burns ([id number] on 06/06/2025 5:54:53 AM Referred By: REFERRED SELF Confirmed By: Iftikhar Burns
[2025-06-06 07:40] LABS: Alanine Aminotransferase 18.0 U/L (7-52); Albumin Globulin Ratio 1.0 (0.9-2); Alkaline Phosphatase 87.0 U/L (34-104); Anion Gap 5.0 (3-11); Bilirubin,Total 0.7 mg/dl (0.2-1.0); Blood Urea Nitrogen 20.0 mg/dl (6-23); Calcium 9.0 mg/dl (8.6-10.3); Carbon Dioxide 25.0 mmol/L (21-32); Chloride 107.0 mmol/L (98-107); Creatinine Clr Calc Pharmacy 173.6 ml/min; Globulin 3.2 gm/dl (2.5-4.0); Glucose 141.0 mg/dl (70-99(Fasting)); Magnesium 1.9 mg/dl (1.7-2.4); Potassium 4.1 mmol/L (3.5-5.1); Sodium 137.0 mmol/L (136-145); Total Protein 6.3 gm/dl (6.0-8.3)
[2025-06-06] MEDS: POLYETHYLENE (MIRALAX) 17 GM PACK PO PRN (10:44)
--- NOTE | 2025-06-06 15:42 | Hospitalist Progress Note ---
Date of Service June 06, 2025 Assessment & Plan (1) Acute hypoxemic respiratory failure: Plan: Diabetic foot ulcer, left great toe Wound, Right great toe BL lower leg cellulitis CT left foot: No abscess or osteomyelitis Blood cultures: Negative Left toe wound culture: Pending evaluated by orthopedic service, no plans for surgical intervention at this point Podiatry service consulted, debridement not recommended, does not feel patient has osteomyelitis hence no need for MRI 06/05 -- clinically improving: edema mostly resolved, erythema also much improved -- ID service recommends total of 5-day course of daptomycin plus cefepime - per Ortho: If discharged patient should continue to change dressing once daily with Aquacel Ag and a bordered foam dressing to the left hallux. Continue cam boot at all times while weightbearing and ambulating to the left foot using walker for stability. Recommend continuing p.o. antibiotics at discharge for soft tissue coverage. Follow-up in the wound clinic within 2 weeks of discharge. 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 DM 2 insulin requiring, suboptimal control as of recent hemoglobin A1c of 11 from April 2025 anxiety/mood disorder, at baseline DVT prophylaxis. Eliquis Full code Disposition anticipate d/c in 1-2 days Admission and Anticipated Discharge Date Admission Date: June 01, 2025 Subjective Pt seen in follow up, lying in bed in NAD, resting Pt seen w/ RN at the bedside Denies any fever, chills, chest pain, shortness of breath, denies any abd.pain, or any foot/leg discomfort Review of Systems Review of Systems: All systems reviewed & are unremarkable except as noted in Subjective Physical Exam Physical Exam: General- oriented x 3, not in distress, speaks in sentences with no effort or accessory muscle use Eyes- anicteric Neck- no JVD Lungs- clear breath sounds bilaterally, no rales/wheezes Heart- normal rate, regular rhythm; no murmurs Abdomen- normal bowel sounds, nondistended, soft, nontender Extremities- no Bilateral leg edema, very minimal erythema right great toe wound: Healing well Left great toe wound: Healing well Neuro- alert, oriented x 3; no gross focal neurologic deficits Skin- warm & dry Results & Data Results & Data Vital Signs (Past 12 Hours) Vital Signs Temp Pulse Pulse Resp BP BP Pulse Ox 06/06/25 15:19 36.5 C 72 20 120/83 97 06/06/25 13:04 63 06/06/25 11:07 36.5 C 72 18 136/79 97 06/06/25 07:44 36.5 C 74 18 154/88 H 96 06/06/25 06:45 74 O2 Del Method 06/06/25 15:19 Room Air 06/06/25 13:04 06/06/25 11:07 Room Air 06/06/25 07:44 Room Air 06/06/25 06:45 Laboratory Results 06/06/25 06/06/25 06/06/25 Range/Units 11:53 07:50 06:43 Sodium 137 (136-145) mmol/L Potassium 4.1 (3.5-5.1) mmol/L Chloride 107 (98-107) mmol/L Carbon Dioxide 25 (21-32) mmol/L Anion Gap 5 (3-11) BUN 20 (6-23) mg/dl Creatinine 0.56 L (0.6-1.4) mg/dl Est Cr Clr Drug Dosing 173.6 ml/min eGFR 111.44 BUN/Creatinine Ratio 35.7 H (10-20) Glucose 141 H (70-99(Fasting)) mg/dl POC Glucose 193 H 134 H (70-99) mg/dl Calcium 9.0 (8.6-10.3) mg/dl Magnesium 1.9 (1.7-2.4) mg/dl Total Bilirubin 0.7 (0.2-1.0) mg/dl AST 23 (13-39) U/L ALT 18 (7-52) U/L Alkaline Phosphatase 87 (34-104) U/L Total Protein 6.3 (6.0-8.3) gm/dl Albumin 3.1 L (3.4-5.0) gm/dl Globulin 3.2 (2.5-4.0) gm/dl Albumin/Globulin Ratio 1.0 (0.9-2) 06/05/25 06/05/25 Range/Units 20:06 16:51 Sodium (136-145) mmol/L Potassium (3.5-5.1) mmol/L Chloride (98-107) mmol/L Carbon Dioxide (21-32) mmol/L Anion Gap (3-11) BUN (6-23) mg/dl Creatinine (0.6-1.4) mg/dl Est Cr Clr Drug Dosing ml/min eGFR BUN/Creatinine Ratio (10-20) Glucose (70-99(Fasting)) mg/dl POC Glucose 197 H 129 H (70-99) mg/dl Calcium (8.6-10.3) mg/dl Magnesium (1.7-2.4) mg/dl Total Bilirubin (0.2-1.0) mg/dl AST (13-39) U/L ALT (7-52) U/L Alkaline Phosphatase (34-104) U/L Total Protein (6.0-8.3) gm/dl Albumin (3.4-5.0) gm/dl Globulin (2.5-4.0) gm/dl Albumin/Globulin Ratio (0.9-2) Medications Administered Current Inpatient Medications Acetaminophen (Acetaminophen 325 Mg Tab) 650 mg PO QID PRN PRN Reason: pain/fever Stop: 07/02/25 00:03 Apixaban (Apixaban 5 Mg Tablet) 5 mg PO BID [facility] Stop: 07/02/25 08:59 Last Admin: 06/06/25 09:18 Dose: 5 mg Aspirin (Aspirin 81 Mg Ectab) 81 mg PO DAILY [facility] Stop: 07/02/25 08:59 Last Admin: 06/06/25 09:18 Dose: 81 mg Bupropion HCl (Bupropion Xl 300 Mg Tabcr) 300 mg PO DAILY [facility] Stop: 07/02/25 08:59 Last Admin: 06/06/25 09:18 Dose: 300 mg Dextrose (Dextrose 50% 50 Ml Syringe) 25 - 50 ml IV UD PRN; Protocol PRN Reason: Hypoglycemia Protocol Stop: 07/01/25 23:16 Glucagon (Glucagon For Inj 1 Mg Vial) 1 mg SQ UD PRN; Protocol PRN Reason: Hypoglycemia Protocol Stop: 07/01/25 23:16 Glucose (Glucose 40% Gel 15 Gm Tube) 15 - 30 gm PO UD PRN; Protocol PRN Reason: Hypoglycemia Protocol Stop: 07/01/25 23:16 Glucose (Glucose 10 Tab/Tube) 4 - 8 tab PO UD PRN; Protocol PRN Reason: Hypoglycemia Protocol Stop: 07/01/25 23:16 Promethazine HCl (Phenergan) 12.5 mg in 50.5 mls @ 202 mls/hr IV Q6H PRN PRN Reason: Nausea And Vomiting Stop: 07/02/25 00:03 Daptomycin 500 mg/ Syringe 10 mls @ 5 mls/min IV Q24H [facility]; Protocol Stop: 06/09/25 07:59 Last Admin: 06/06/25 09:56 Dose: 5 mls/min Cefepime HCl (Maxipime 2000mg) 2,000 mg in 20 mls @ 5 mls/min IV Q8H [facility]; Protocol Stop: 06/09/25 14:59 Last Admin: 06/06/25 15:10 Dose: 5 mls/min Insulin Aspart (Insulin Aspart Per Unit Charge) 0 units SC ACHS [facility] Stop: 07/01/25 23:19 Last Admin: 06/06/25 12:29 Dose: 14 units Insulin Glargine (Toujeo Solostar) 0 units SQ BID [facility]; Protocol Stop: 07/02/25 00:59 Last Admin: 06/06/25 09:18 Dose: 60 units Lactobacillus Acidophilus (Advanced Probiotic 625 Mg Capsule) 1,250 mg PO DAILY [facility] Stop: 07/02/25 08:59 Last Admin: 06/06/25 09:18 Dose: 1,250 mg Lisinopril (Lisinopril 20 Mg Tab) 20 mg PO DAILY [facility] Stop: 07/02/25 08:59 Last Admin: 06/02/25 09:11 Dose: 20 mg Metoprolol Succinate (Metoprolol Succ 50mg Ext Rel Tab) 50 mg PO BID [facility] Stop: 07/02/25 08:59 Last Admin: 06/06/25 09:18 Dose: 50 mg Miscellaneous (Carbohydrates For Hypoglycemia ) 15 - 30 gm PO UD PRN PRN Reason: Hypoglycemia Protocol Stop: 07/01/25 23:16 Miscellaneous Information (Pharmacy Glycemic Mgmt Consult) 1 each N/A UD PRN; Protocol PRN Reason: Consult Stop: 07/01/25 23:51 Multivitamins/Minerals (Cerovite Adv Formula Tab) 1 tab PO DAILY [facility] Stop: 07/02/25 08:59 Last Admin: 06/06/25 09:18 Dose: 1 tab Oxycodone HCl (Oxycodone Hcl Ir 5 Mg Tab (Immediate Release)) 5 mg PO Q4H PRN PRN Reason: Pain Stop: 06/16/25 00:03 Polyethylene Glycol (Polyethylene (Miralax) 17 Gm Pack) 17 gm PO DAILY PRN PRN Reason: Constipation Stop: 07/06/25 10:18 Last Admin: 06/06/25 10:44 Dose: 17 gm Sertraline HCl (Sertraline Hcl 100 Mg Tablet) 100 mg PO QAM [facility] Stop: 07/02/25 08:59 Last Admin: 06/06/25 09:18 Dose: 100 mg Spironolactone (Spironolactone 25 Mg Tab) 25 mg PO DAILY [facility] Stop: 07/02/25 08:59 Last Admin: 06/02/25 09:10 Dose: 25 mg Tamsulosin HCl (Tamsulosin Hcl 0.4 Mg Cap) 0.4 mg PO QAM [facility] Stop: 07/02/25 08:59 Last Admin: 06/06/25 09:18 Dose: 0.4 mg
[2025-06-07 00:18] LABS: A calco-baum cmplx NotReported Not Detected (NotDetected); Bact fragilis Not Reported Not Detected (NotDetected); Blood Culture Id Panel PCR Panel Negative (NotDetected); C auris Not Reported Not Detected (NotDetected); Calbicans Not Reported Not Detected (NotDetected); Candida glabrata Not Reported Not Detected (NotDetected); Candida krusei Not Reported Not Detected (NotDetected); Cneoformans/gatti Not Reported Not Detected (NotDetected); Cparapsilosis Not Reported Not Detected (NotDetected); Ctropicalis Not Reported Not Detected (NotDetected); E cloacae compx Not Reported Not Detected (NotDetected); Efaecalis Not Reported Not Detected (NotDetected); Efaecium Not Reported Not Detected (NotDetected); Enterobacterales Not Reported Not Detected (NotDetected); Escherichia coli Not Reported Not Detected (NotDetected); H influenzae Not Reported Not Detected (NotDetected); K aerogenes Not Reported Not Detected (NotDetected); Koxytoca Not Reported Not Detected (NotDetected); Kpneumoniae grp Not Reported Not Detected (NotDetected); Lmonocyt Not Reported Not Detected (NotDetected); N meningitidis Not Reported Not Detected (NotDetected); P aeruginosa Not Reported Not Detected (NotDetected); Proteus spp Not Reported Not Detected (NotDetected); Salmonella spp Not Reported Not Detected (NotDetected); Staph lugdunensis Not Reported Not Detected (NotDetected); Staph spp. Not Reported Not Detected (NotDetected); Staphaureus Not Reported Not Detected (NotDetected); Staphepi Not Reported Not Detected (NotDetected); Stenmaltophilia Not Reported Not Detected (NotDetected); Strep agal(GrpB) Not Reported Not Detected (NotDetected); Strep pneum Not Reported Not Detected (NotDetected); Strep pyog (GrpA) Not Reported Not Detected (NotDetected); Strep spp Not Reported Not Detected (NotDetected)
[2025-06-07 06:52] LABS: Hematocrit (blood only) 50.7 % (42.0-52.0); Hemoglobin 17.4 g/dl (14.0-18.0); Mean Corpuscular Hemoglobin 29.4 pg (25.0-34.0); Mean Corpuscular Volume 85.8 fL (80.0-100.0); Platelet Count 268 K/uL (130-400); RDW Standard Deviation 40.9 fL (36.4-46.3); Red Blood Count 5.91 M/uL (4.70-6.10); White Blood Count 9.97 K/ul (4.8-10.8)
[2025-06-07 07:18] LABS: Blood Urea Nitrogen 20.0 mg/dl (6-23); Calcium 9.3 mg/dl (8.6-10.3); Carbon Dioxide 25.0 mmol/L (21-32); Chloride 107.0 mmol/L (98-107); Creatinine Clr Calc Pharmacy 162.3 ml/min; Glucose 126.0 mg/dl (70-99(Fasting)); Magnesium 2.0 mg/dl (1.7-2.4); Potassium 4.4 mmol/L (3.5-5.1)
[2025-06-07 07:30] LABS: Anion Gap 5.0 (3-11); Sodium 137.0 mmol/L (136-145)
--- NOTE | 2025-06-07 09:20 | Hospitalist Progress Note ---
Date of Service June 07, 2025 Assessment & Plan (1) Acute hypoxemic respiratory failure: Plan: Diabetic foot ulcer, left great toe Wound, Right great toe BL lower leg cellulitis CT left foot: No abscess or osteomyelitis Blood cultures: Negative Left toe wound culture: Pending evaluated by orthopedic service, no plans for surgical intervention at this point Podiatry service consulted, debridement not recommended, does not feel patient has osteomyelitis hence no need for MRI 06/05 -- clinically improving: edema mostly resolved, erythema also much improved -- ID service recommends total of 5-day course of daptomycin plus cefepime - per Ortho: If discharged patient should continue to change dressing once daily with Aquacel Ag and a bordered foam dressing to the left hallux. Continue cam boot at all times while weightbearing and ambulating to the left foot using walker for stability. Recommend continuing p.o. antibiotics at discharge for soft tissue coverage. Follow-up in the wound clinic within 2 weeks of discharge. 06/07 Per podiatry - (1) Diabetic ulcer of left great toe: Plan - Continue: Dressing change left hallux once daily with Aquacel Ag and a bordered foam. Dressed bilateral lower extremity with Tubigrip dressing from the base of the toes to the proximal calf. - Continue cam boot at all times while weightbearing and ambulating to the left foot using walker for stability. - Wound culture swab left hallux 06/04/2025: Low counts mixed probable skin microbiota. Left hallux wound reevaluated with no deep extension, tracking, probing or signs of fluid collection. 50% decrease in surface area over the past 48 hours. No signs of local soft tissue infection. Patient okay for discharge from podiatry standpoint. At discharge patient should continue to change dressing once daily with Aquacel Ag and a bordered foam dressing to the left hallux. Continue cam boot at all times while weightbearing and ambulating to the left foot using walker for stability. Recommend continuing p.o. antibiotics at discharge for soft tissue coverage. Follow-up in the wound clinic within 2 weeks of discharge. per ID - discussed with on 06/07 - on discharge - oral Linezolid 600 mg PO BID and Levaquin 750 mg PO daily to complete a total of 14 days. Pt should continue to follow up with podiatry/wound care until the wound heals completely Discussed with the pt - pt feels well overall but does not feel he will do well at home - likely will need rehab - CM aware and involved Chest pain - noted 06/05 resolved EKG no acute ischemia troponin negative monitor closely Episode of L hand Paresthesias - resolved CT head no acute CVA continue Xarelto continue Telemetry monitoring Transient hypoxemia - resolved chronic diastolic heart failure (EF 60 to 65%, TTE 2024), patient euvolemic hx nonobstructive CAD/hx PVD PAF on Eliquis hypertension, slightly elevated - improving hyperlipidemia, on statin Rx HCV status post interferon Rx, 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 DM 2 insulin requiring, suboptimal control as of recent hemoglobin A1c of 11 from April 2025 anxiety/mood disorder, at baseline DVT prophylaxis. Eliquis Full code Disposition anticipate d/c in 1-2 days Admission and Anticipated Discharge Date Admission Date: June 01, 2025 Subjective Pt seen in follow up, lying in bed in NAD, resting Pt seen w/ RN at the bedside Denies any fever, chills, chest pain, shortness of breath, denies any abd.pain, or any foot/leg discomfort Podiatry following Discussed with ID today - Po abx on DC Review of Systems Review of Systems: All systems reviewed & are unremarkable except as noted in Subjective Physical Exam Physical Exam: General- oriented x 3, not in distress, speaks in sentences with no effort or accessory muscle use Eyes- anicteric Neck- no JVD Lungs- clear breath sounds bilaterally, no rales/wheezes Heart- normal rate, regular rhythm; no murmurs Abdomen- normal bowel sounds, nondistended, soft, nontender Extremities- no Bilateral leg edema, very minimal erythema Left great toe wound: Healing well Neuro- alert, oriented x 3; no gross focal neurologic deficits Skin- warm & dry Results & Data Results & Data Vital Signs (Past 12 Hours) Vital Signs Temp Pulse Pulse Pulse Resp BP Pulse Ox 06/07/25 07:50 36.4 C L 74 18 136/76 92 06/07/25 07:37 66 06/07/25 03:40 36.7 C 80 20 152/71 H 95 06/07/25 00:22 36.4 C L 68 18 119/67 93 O2 Del Method 06/07/25 07:50 Room Air 06/07/25 07:37 06/07/25 03:40 Room Air 06/07/25 00:22 Room Air Laboratory Results 06/07/25 06/07/25 06/06/25 Range/Units 08:17 05:22 19:57 WBC 9.97 (4.8-10.8) K/ul RBC 5.91 (4.70-6.10) M/uL Hgb 17.4 (14.0-18.0) g/dl Hct 50.7 (42.0-52.0) % MCV 85.8 (80.0-100.0) fL MCH 29.4 (25.0-34.0) pg MCHC 34.3 (32.0-36.0) g/dL RDW Std Deviation 40.9 (36.4-46.3) fL RDW Coeff of Marc 13.2 (11.5-14.5) % Plt Count 268 (130-400) K/uL MPV 9.8 (9.4-12.4) fL Sodium 137 (136-145) mmol/L Potassium 4.4 (3.5-5.1) mmol/L Chloride 107 (98-107) mmol/L Carbon Dioxide 25 (21-32) mmol/L Anion Gap 5 (3-11) BUN 20 (6-23) mg/dl Creatinine 0.60 (0.6-1.4) mg/dl Est Cr Clr Drug Dosing 162.3 ml/min eGFR 109.14 BUN/Creatinine Ratio 33.3 H (10-20) Glucose 126 H (70-99(Fasting)) mg/dl POC Glucose 125 H 245 H (70-99) mg/dl Calcium 9.3 (8.6-10.3) mg/dl Phosphorus 3.0 (2.5-4.9) mg/dl Magnesium 2.0 (1.7-2.4) mg/dl Bld Cult ID Panel PCR (NotDetected) 06/06/25 06/06/25 06/01/25 Range/Units 16:48 11:53 22:06 WBC (4.8-10.8) K/ul RBC (4.70-6.10) M/uL Hgb (14.0-18.0) g/dl Hct (42.0-52.0) % MCV (80.0-100.0) fL MCH (25.0-34.0) pg MCHC (32.0-36.0) g/dL RDW Std Deviation (36.4-46.3) fL RDW Coeff of Marc (11.5-14.5) % Plt Count (130-400) K/uL MPV (9.4-12.4) fL Sodium (136-145) mmol/L Potassium (3.5-5.1) mmol/L Chloride (98-107) mmol/L Carbon Dioxide (21-32) mmol/L Anion Gap (3-11) BUN (6-23) mg/dl Creatinine (0.6-1.4) mg/dl Est Cr Clr Drug Dosing ml/min eGFR BUN/Creatinine Ratio (10-20) Glucose (70-99(Fasting)) mg/dl POC Glucose 123 H 193 H (70-99) mg/dl Calcium (8.6-10.3) mg/dl Phosphorus (2.5-4.9) mg/dl Magnesium (1.7-2.4) mg/dl Bld Cult ID Panel PCR PCR Panel Negative (NotDetected) Medications Administered Current Inpatient Medications Acetaminophen (Acetaminophen 325 Mg Tab) 650 mg PO QID PRN PRN Reason: pain/fever Stop: 07/02/25 00:03 Apixaban (Apixaban 5 Mg Tablet) 5 mg PO BID [facility] Stop: 07/02/25 08:59 Last Admin: 06/07/25 08:41 Dose: 5 mg Aspirin (Aspirin 81 Mg Ectab) 81 mg PO DAILY [facility]ULU Stop: 07/02/25 08:59 Last Admin: 06/07/25 08:41 Dose: 81 mg Bupropion HCl (Bupropion Xl 300 Mg Tabcr) 300 mg PO DAILY [facility] Stop: 07/02/25 08:59 Last Admin: 06/07/25 08:41 Dose: 300 mg Dextrose (Dextrose 50% 50 Ml Syringe) 25 - 50 ml IV UD PRN; Protocol PRN Reason: Hypoglycemia Protocol Stop: 07/01/25 23:16 Glucagon (Glucagon For Inj 1 Mg Vial) 1 mg SQ UD PRN; Protocol PRN Reason: Hypoglycemia Protocol Stop: 07/01/25 23:16 Glucose (Glucose 40% Gel 15 Gm Tube) 15 - 30 gm PO UD PRN; Protocol PRN Reason: Hypoglycemia Protocol Stop: 07/01/25 23:16 Glucose (Glucose 10 Tab/Tube) 4 - 8 tab PO UD PRN; Protocol PRN Reason: Hypoglycemia Protocol Stop: 07/01/25 23:16 Promethazine HCl (Phenergan) 12.5 mg in 50.5 mls @ 202 mls/hr IV Q6H PRN PRN Reason: Nausea And Vomiting Stop: 07/02/25 00:03 Cefepime HCl (Maxipime 2000mg) 2,000 mg in 20 mls @ 5 mls/min IV Q8H [facility]; Protocol Stop: 06/09/25 14:59 Last Admin: 06/07/25 05:58 Dose: 5 mls/min Daptomycin 700 mg/ Syringe 14 mls @ 7 mls/min IV Q24H [facility]; Protocol Stop: 06/12/25 08:00 Insulin Aspart (Insulin Aspart Per Unit Charge) 0 units SC ACHS [facility] Stop: 07/01/25 23:19 Last Admin: 06/07/25 08:59 Dose: 2 units Insulin Glargine (Toujeo Solostar) 0 units SQ BID [facility]; Protocol Stop: 07/02/25 00:59 Last Admin: 06/07/25 08:42 Dose: 60 units Lactobacillus Acidophilus (Advanced Probiotic 625 Mg Capsule) 1,250 mg PO DAILY [facility] Stop: 07/02/25 08:59 Last Admin: 06/07/25 08:41 Dose: 1,250 mg Lisinopril (Lisinopril 20 Mg Tab) 20 mg PO DAILY [facility] Stop: 07/02/25 08:59 Last Admin: 06/02/25 09:11 Dose: 20 mg Metoprolol Succinate (Metoprolol Succ 50mg Ext Rel Tab) 50 mg PO BID [facility] Stop: 07/02/25 08:59 Last Admin: 06/07/25 08:41 Dose: 50 mg Miscellaneous (Carbohydrates For Hypoglycemia ) 15 - 30 gm PO UD PRN PRN Reason: Hypoglycemia Protocol Stop: 07/01/25 23:16 Miscellaneous Information (Pharmacy Glycemic Mgmt Consult) 1 each N/A UD PRN; Protocol PRN Reason: Consult Stop: 07/01/25 23:51 Multivitamins/Minerals (Cerovite Adv Formula Tab) 1 tab PO DAILY [facility] Stop: 07/02/25 08:59 Last Admin: 06/07/25 08:41 Dose: 1 tab Oxycodone HCl (Oxycodone Hcl Ir 5 Mg Tab (Immediate Release)) 5 mg PO Q4H PRN PRN Reason: Pain Stop: 06/16/25 00:03 Polyethylene Glycol (Polyethylene (Miralax) 17 Gm Pack) 17 gm PO DAILY PRN PRN Reason: Constipation Stop: 07/06/25 10:18 Last Admin: 06/06/25 10:44 Dose: 17 gm Sertraline HCl (Sertraline Hcl 100 Mg Tablet) [facility] [place] Stop: 07/02/25 08:59 Last Admin: 06/07/25 08:42 Dose: 100 mg Spironolactone (Spironolactone 25 Mg Tab) 25 mg PO DAILY [facility] Stop: 07/02/25 08:59 Last Admin: 06/02/25 09:10 Dose: 25 mg Tamsulosin HCl (Tamsulosin Hcl 0.4 Mg Cap) 0.4 mg PO QAM [facility] Stop: 07/02/25 08:59 Last Admin: 06/07/25 08:41 Dose: 0.4 mg
--- NOTE | 2025-06-07 11:06 | Podiatry Progress Note ---
Date of Service June 07, 2025 Assessment & Plan (1) Diabetic ulcer of left great toe: Plan - Continue: Dressing change left hallux once daily with Aquacel Ag and a bordered foam. Dressed bilateral lower extremity with Tubigrip dressing from the base of the toes to the proximal calf. - Continue cam boot at all times while weightbearing and ambulating to the left foot using walker for stability. - Wound culture swab left hallux 06/04/2025: Low counts mixed probable skin micr obiota. Left hallux wound reevaluated with no deep extension, tracking, probing or signs of fluid collection. 50% decrease in surface area over the past 48 hours. No signs of local soft tissue infection. Patient okay for discharge from podiatry standpoint. At discharge patient should continue to change dressing once daily with Aquacel Ag and a bordered foam dressing to the left hallux. Continue cam boot at all times while weightbearing and ambulating to the left foot using walker for stability. Recommend continuing p.o. antibiotics at discharge for soft tissue coverage. Follow-up in the wound clinic within 2 weeks of discharge. Admission and Anticipated Discharge Date Admission Date: June 01, 2025 Subjective Patient resting comfortably in hospital bed. Reports mild discomfort to the left hallux. Denies nausea vomiting fever chills. Dressing is clean dry and intact marked "06/06/2025". Reports he has been using cam walker at all times while weightbearing to the left foot. Denies issues with stability in the cam walker with use of walker. Review of Systems Review of Systems: All systems reviewed & are unremarkable except as noted in Subjective Physical Exam Physical Exam: Const: Appears well developed and well nourished. No signs of acute distress pre sent. CV: Extremities: No cyanosis Capillary refill time is less than 2 seconds all digits of the bilateral foot. Posterior tibial and dorsalis pedis pulses are palpable bilateral. Skin: Bilateral lower extremity venous stasis changes with thinning and atrophy of the skin from the distal knee to the level of the ankle. Neuro: Loss of protective sensation bilateral foot Psych: Mood/Affect: Mood is normal. Affect is normal. Cognition: Orientation is intact to person, place and time. Focused lower extremity musculoskeletal exam: Leg: No pain with compression of the calf muscle. Right foot: Recently healed ulceration to the plantar aspect of the right hallux with remnants of blood-tinged hyperkeratotic tissue at the level of the plantar interphalangeal joint. Left foot: Significant reduction in dimensions over the past 48 hours with 50% decrease in total surface area. Wound remains superficial with slough which was mechanically removed with a 4 x 4 gauze overlying healthy granular wound bed. Mild malodor noted on dressing change. No active drainage. Wound does not probe or track in any direction. No periwound erythema or edema. No lymphangitis or streaking. Results & Data Results & Data Vital Signs (Past 12 Hours) Vital Signs Temp Pulse Pulse Pulse Resp BP Pulse Ox 06/07/25 07:50 36.4 C L 74 18 136/76 92 06/07/25 07:37 66 06/07/25 03:40 36.7 C 80 20 152/71 H 95 06/07/25 00:22 36.4 C L 68 18 119/67 93 O2 Del Method 06/07/25 07:50 Room Air 06/07/25 07:37 06/07/25 03:40 Room Air 06/07/25 00:22 Room Air Coding Level of Care Code 74310 SUB INP/OBS CARE 2/35MIN Diagnoses Diabetic ulcer of left great toe E11.621; L97.529
[2025-06-08 08:42] LABS: Amphetamine Urine, Confirm 1936 ng/mL (<250); MDA negative; MDEA negative; MDMA (Ecstasy) Urine, Confirm negative; Methamphetamine, Ur Confirm >15000 ng/mL (<250)
[2025-06-08] MEDS: DAPTOmycin 700 MG in SYRINGE 0 ML IV SCH (08:44)
--- NOTE | 2025-06-08 12:54 | Pharmacy Report ---
Pharmacy Glycemic Short Note 2 - Date of Service June 08, 2025 - Glycemic Short BSG Results (Last 24 hours): 06/07/25 06/07/25 06/08/25 16:51 20:21 08:17 POC Glucose 264 H 194 H 150 H 06/08/25 11:54 POC Glucose 243 H OUTPATIENT ANTIDIABETIC REGIMEN: * Toujeo 100 units SC BID * Novolog SC TID with meals (60/20/60 units) * Empagliflozin 25 mg PO daily * Metformin ER 750 mg PO daily * HbA1c: 11% (04/13/25) ASSESSMENT: 06/08: * Facundo received a total of 100 units of insulin yesterday (60 units were basal an 40 units were bolus). Despite the increase of insulin use, BSGs were still mostly above goal yesterday ([phone]/dL). * Fasting BSG this morning was 150mg/dL. Increased basal insulin ~10% this morning and tightened the CR. * He continues on cefepime and daptomycin. 06/05: * Patient received 76 units of insulin yesterday, 50 of which were basal. BSGs were: [phone] mg/dL. * Fasting BSG this AM was 161 mg/dL, trending upward. Will increase basal by 20% this AM. * Remains on Daptomycin + Cefepime. Tolerating T2DM diet. No change to Novolog today. 06/04: * Facundo's BSGs have been well controlled over the last 48 hours, ranging 90- 257 mg/dL. Requiring ~65 units of insulin per day, 30-40 of which were basal. * Fasting BSG this AM was 133 mg/dL. Will continue to hold basal insulin at bedtime. However, will increase AM basal dose to 50 units today. Believe lower BSGs over the last 48 hours can be explained by increased basal dose received on first day of admission. * Stressors remain stable. On abx in the form of Cefepime and Daptomycin. Ordered and tolerating a T2DM diet. * Will tighten Novolog parameters this AM to help control postprandial hyperglycemia. 06/02: * 64 yo M admitted with toe ulcer, seen by ortho today, no debridement indicated at this time, wound care. * IV Cefepime and Daptomycin. * Patient using home Toujeo, had 60 units at 0130 this AM, BSG 96mg/dl this morning, will reduce dose for now, eating well. * If patient runs out of home insulin, will change to NPH for basal insulin d/t allergy to Lantus. PLAN FOR INPATIENT GLYCEMIC CONTROL: * Hold outpatient oral diabetes medications * Basal insulin * Toujeo 65 units SC AM * Bolus insulin * NovoLog per scale ACHS or Q6hrs while NPO * Goal Range: Low 110 mg/dL - High 140 mg/dL * Correction Factor: 20 mg/dL/unit * Nutritional / Prandial insulin per carb ratio of 1 unit per 4 grams CHO consumed
--- NOTE | 2025-06-08 16:56 | Hospitalist Progress Note ---
Date of Service June 08, 2025 Assessment & Plan (1) Acute hypoxemic respiratory failure: Plan: Diabetic foot ulcer, left great toe Wound, Right great toe BL lower leg cellulitis CT left foot: No abscess or osteomyelitis Blood cultures: Negative Left toe wound culture: Pending evaluated by orthopedic service, no plans for surgical intervention at this point Podiatry service consulted, debridement not recommended, does not feel patient has osteomyelitis hence no need for MRI 06/05 -- clinically improving: edema mostly resolved, erythema also much improved -- ID service recommends total of 5-day course of daptomycin plus cefepime - per Ortho: If discharged patient should continue to change dressing once daily with Aquacel Ag and a bordered foam dressing to the left hallux. Continue cam boot at all times while weightbearing and ambulating to the left foot using walker for stability. Recommend continuing p.o. antibiotics at discharge for soft tissue coverage. Follow-up in the wound clinic within 2 weeks of discharge. 06/07 Per podiatry - (1) Diabetic ulcer of left great toe: Plan - Continue: Dressing change left hallux once daily with Aquacel Ag and a bordered foam. Dressed bilateral lower extremity with Tubigrip dressing from the base of the toes to the proximal calf. - Continue cam boot at all times while weightbearing and ambulating to the left foot using walker for stability. - Wound culture swab left hallux 06/04/2025: Low counts mixed probable skin microbiota. Left hallux wound reevaluated with no deep extension, tracking, probing or signs of fluid collection. 50% decrease in surface area over the past 48 hours. No signs of local soft tissue infection. Patient okay for discharge from podiatry standpoint. At discharge patient should continue to change dressing once daily with Aquacel Ag and a bordered foam dressing to the left hallux. Continue cam boot at all times while weightbearing and ambulating to the left foot using walker for stability. Recommend continuing p.o. antibiotics at discharge for soft tissue coverage. Follow-up in the wound clinic within 2 weeks of discharge. per ID - discussed with on 06/07 - on discharge - oral Linezolid 600 mg PO BID and Levaquin 750 mg PO daily to complete a total of 14 days. Pt should continue to follow up with podiatry/wound care until the wound heals completely Discussed with the pt - pt feels well overall but does not feel he will do well at home - likely will need rehab - CM aware and involved Chest pain - noted 06/05 resolved EKG no acute ischemia troponin negative monitor closely Episode of L hand Paresthesias - resolved CT head no acute CVA continue Xarelto continue Telemetry monitoring Transient hypoxemia - resolved chronic diastolic heart failure (EF 60 to 65%, TTE 2024), patient euvolemic hx nonobstructive CAD/hx PVD PAF on Eliquis hypertension, slightly elevated - improving hyperlipidemia, on statin Rx HCV status post interferon Rx, 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 DM 2 insulin requiring, suboptimal control as of recent hemoglobin A1c of 11 from April 2025 anxiety/mood disorder, at baseline DVT prophylaxis. Eliquis Full code Disposition anticipate d/c in 1-2 days Admission and Anticipated Discharge Date Admission Date: June 01, 2025 Subjective Pt seen in follow up, lying in bed in NAD, resting Denies any fever, chills, chest pain, shortness of breath, denies any abd.pain, or any foot/leg discomfort Podiatry consulted Discussed with ID today yesterday - Po abx on DC CM involved in DC planning Review of Systems Review of Systems: All systems reviewed & are unremarkable except as noted in Subjective Physical Exam Physical Exam: General- oriented x 3, not in distress, speaks in sentences with no effort or accessory muscle use Eyes- anicteric Neck- no JVD Lungs- clear breath sounds bilaterally, no rales/wheezes Heart- normal rate, regular rhythm; no murmurs Abdomen- normal bowel sounds, nondistended, soft, nontender Extremities- no Bilateral leg edema, very minimal erythema Left great toe wound: Healing well Neuro- alert, oriented x 3; no gross focal neurologic deficits Skin- warm & dry Results & Data Results & Data Vital Signs (Past 12 Hours) Vital Signs Temp Pulse Pulse Resp BP Pulse Ox O2 Del Method 06/08/25 15:02 36.5 C 61 18 143/79 H 96 Room Air 06/08/25 15:00 61 06/08/25 11:05 36.7 C 64 18 146/76 H 98 Room Air 06/08/25 07:49 Room Air 06/08/25 07:23 36.6 C 56 L 18 143/92 H 97 Room Air Medications Administered Current Inpatient Medications Acetaminophen (Acetaminophen 325 Mg Tab) 650 mg PO QID PRN PRN Reason: pain/fever Stop: 07/02/25 00:03 Apixaban (Apixaban 5 Mg Tablet) 5 mg PO BID [facility] Stop: 07/02/25 08:59 Last Admin: 06/08/25 08:41 Dose: 5 mg Aspirin (Aspirin 81 Mg Ectab) 81 mg PO DAILY [facility] Stop: 07/02/25 08:59 Last Admin: 06/08/25 08:41 Dose: 81 mg Bupropion HCl (Bupropion Xl 300 Mg Tabcr) 300 mg PO DAILY MULU Stop: 07/02/25 08:59 Last Admin: 06/08/25 08:40 Dose: 300 mg Dextrose (Dextrose 50% 50 Ml Syringe) 25 - 50 ml IV UD PRN; Protocol PRN Reason: Hypoglycemia Protocol Stop: 07/01/25 23:16 Glucagon (Glucagon For Inj 1 Mg Vial) 1 mg SQ UD PRN; Protocol PRN Reason: Hypoglycemia Protocol Stop: 07/01/25 23:16 Glucose (Glucose 40% Gel 15 Gm Tube) 15 - 30 gm PO UD PRN; Protocol PRN Reason: Hypoglycemia Protocol Stop: 07/01/25 23:16 Glucose (Glucose 10 Tab/Tube) 4 - 8 tab PO UD PRN; Protocol PRN Reason: Hypoglycemia Protocol Stop: 07/01/25 23:16 Promethazine HCl (Phenergan) 12.5 mg in 50.5 mls @ 202 mls/hr IV Q6H PRN PRN Reason: Nausea And Vomiting Stop: 07/02/25 00:03 Cefepime HCl (Maxipime 2000mg) 2,000 mg in 20 mls @ 5 mls/min IV Q8H MULU; Protocol Stop: 06/09/25 14:59 Last Admin: 06/08/25 15:15 Dose: 5 mls/min Daptomycin 700 mg/ Syringe 14 mls @ 7 mls/min IV Q24H MULU; Protocol Stop: 06/12/25 08:00 Last Admin: 06/08/25 08:44 Dose: 7 mls/min Insulin Aspart (Insulin Aspart Per Unit Charge) 0 units SC ACHS [facility] Stop: 07/01/25 23:19 Last Admin: 06/08/25 13:08 Dose: 19 units Insulin Glargine (Toujeo Solostar) 0 units SQ BID [facility]; Protocol Stop: 07/02/25 00:59 Last Admin: 06/08/25 08:45 Dose: 60 units Lactobacillus Acidophilus (Advanced Probiotic 625 Mg Capsule) 1,250 mg PO DAILY [facility] Stop: 07/02/25 08:59 Last Admin: 06/08/25 08:41 Dose: 1,250 mg Lisinopril (Lisinopril 20 Mg Tab) 20 mg PO DAILY [facility] Stop: 07/02/25 08:59 Last Admin: 06/02/25 09:11 Dose: 20 mg Metoprolol Succinate (Metoprolol Succ 50mg Ext Rel Tab) 50 mg PO BID [facility] Stop: 07/02/25 08:59 Last Admin: 06/08/25 08:42 Dose: 50 mg Miscellaneous (Carbohydrates For Hypoglycemia ) 15 - 30 gm PO UD PRN PRN Reason: Hypoglycemia Protocol Stop: 07/01/25 23:16 Miscellaneous Information (Pharmacy Glycemic Mgmt Consult) 1 each N/A UD PRN; Protocol PRN Reason: Consult Stop: 07/01/25 23:51 Multivitamins/Minerals (Cerovite Adv Formula Tab) 1 tab PO DAILY [facility] Stop: 07/02/25 08:59 Last Admin: 06/08/25 08:41 Dose: 1 tab Oxycodone HCl (Oxycodone Hcl Ir 5 Mg Tab (Immediate Release)) 5 mg PO Q4H PRN PRN Reason: Pain Stop: 06/16/25 00:03 Polyethylene Glycol (Polyethylene (Miralax) 17 Gm Pack) 17 gm PO DAILY PRN PRN Reason: Constipation Stop: 07/06/25 10:18 Last Admin: 06/08/25 08:44 Dose: 17 gm Sertraline HCl (Sertraline Hcl 100 Mg Tablet) 100 mg PO QAM [facility] Stop: 07/02/25 08:59 Last Admin: 06/08/25 08:41 Dose: 100 mg Spironolactone (Spironolactone 25 Mg Tab) 25 mg PO DAILY [facility] Stop: 07/02/25 08:59 Last Admin: 06/02/25 09:10 Dose: 25 mg Tamsulosin HCl (Tamsulosin Hcl 0.4 Mg Cap) 0.4 mg PO QAM [facility] Stop: 07/02/25 08:59 Last Admin: 06/08/25 08:41 Dose: 0.4 mg
[2025-06-09] MEDS: NYSTATIN POWDER 15GM BTL EXT SCH (08:43)
--- NOTE | 2025-06-09 15:44 | Hospitalist Progress Note ---
Date of Service June 09, 2025 Assessment & Plan (1) Acute hypoxemic respiratory failure: Plan: Diabetic foot ulcer, left great toe Wound, Right great toe BL lower leg cellulitis CT left foot: No abscess or osteomyelitis Blood cultures: Negative Left toe wound culture: Pending evaluated by orthopedic service, no plans for surgical intervention at this point Podiatry service consulted, debridement not recommended, does not feel patient has osteomyelitis hence no need for MRI 06/05 -- clinically improving: edema mostly resolved, erythema also much improved -- ID service recommends total of 5-day course of daptomycin plus cefepime - per Ortho: If discharged patient should continue to change dressing once daily with Aquacel Ag and a bordered foam dressing to the left hallux. Continue cam boot at all times while weightbearing and ambulating to the left foot using walker for stability. Recommend continuing p.o. antibiotics at discharge for soft tissue coverage. Follow-up in the wound clinic within 2 weeks of discharge. 06/07 Per podiatry - (1) Diabetic ulcer of left great toe: Plan - Continue: Dressing change left hallux once daily with Aquacel Ag and a bordered foam. Dressed bilateral lower extremity with Tubigrip dressing from the base of the toes to the proximal calf. - Continue cam boot at all times while weightbearing and ambulating to the left foot using walker for stability. - Wound culture swab left hallux 06/04/2025: Low counts mixed probable skin microbiota. Left hallux wound reevaluated with no deep extension, tracking, probing or signs of fluid collection. 50% decrease in surface area over the past 48 hours. No signs of local soft tissue infection. Patient okay for discharge from podiatry standpoint. At discharge patient should continue to change dressing once daily with Aquacel Ag and a bordered foam dressing to the left hallux. Continue cam boot at all times while weightbearing and ambulating to the left foot using walker for stability. Recommend continuing p.o. antibiotics at discharge for soft tissue coverage. Follow-up in the wound clinic within 2 weeks of discharge. per ID - discussed with on 06/07 - on discharge - oral Linezolid 600 mg PO BID and Levaquin 750 mg PO daily to complete a total of 14 days. Pt should continue to follow up with podiatry/wound care until the wound heals completely Discussed with the pt - pt feels well overall but does not feel he will do well at home - likely will need rehab - CM aware and involved Chest pain - noted 06/05 resolved EKG no acute ischemia troponin negative monitor closely Episode of L hand Paresthesias - resolved CT head no acute CVA continue Xarelto continue Telemetry monitoring Transient hypoxemia - resolved chronic diastolic heart failure (EF 60 to 65%, TTE 2024), patient euvolemic hx nonobstructive CAD/hx PVD PAF on Eliquis hypertension, slightly elevated - improving hyperlipidemia, on statin Rx HCV status post interferon Rx, no recent follow-[place] [facility] [place] and script. DM 2 insulin requiring, suboptimal control as of recent hemoglobin A1c of 11 from April 2025 anxiety/mood disorder, at baseline DVT prophylaxis. Eliquis Full code Disposition anticipate d/c in 1-2 days Admission and Anticipated Discharge Date Admission Date: June 01, 2025 Subjective Pt seen in follow up, lying in bed in NAD, resting Denies any fever, chills, chest pain, shortness of breath, denies any abd.pain, or any foot/leg discomfort Podiatry, ID consulted CM involved in DC planning Review of Systems Review of Systems: All systems reviewed & are unremarkable except as noted in Subjective Physical Exam Physical Exam: General- oriented x 3, not in distress, speaks in sentences with no effort or accessory muscle use Eyes- anicteric Neck- no JVD Lungs- clear breath sounds bilaterally, no rales/wheezes Heart- normal rate, regular rhythm; no murmurs Abdomen- normal bowel sounds, nondistended, soft, nontender Extremities- no Bilateral leg edema, very minimal erythema Left great toe wound: Healing well Neuro- alert, oriented x 3; no gross focal neurologic deficits Skin- warm & dry Results & Data Results & Data Vital Signs (Past 12 Hours) Vital Signs Temp Pulse Resp BP BP Pulse Ox O2 Del Method 06/09/25 15:12 37.1 C 66 18 143/69 H 95 Room Air 06/09/25 11:24 37.0 C 51 L 18 132/81 94 Room Air 06/09/25 07:22 36.6 C 65 18 107/65 99 Room Air Laboratory Results 06/09/25 06/09/25 06/08/25 Range/Units 12:05 08:15 20:33 POC Glucose 149 H 122 H 109 H (70-99) mg/dl 06/08/25 Range/Units 17:06 POC Glucose 83 (70-99) mg/dl Medications Administered Current Inpatient Medications Acetaminophen (Acetaminophen 325 Mg Tab) 650 mg PO QID PRN PRN Reason: pain/fever Stop: 07/02/25 00:03 Apixaban (Apixaban 5 Mg Tablet) 5 mg PO BID [facility] Stop: 07/02/25 08:59 Last Admin: 06/09/25 08:42 Dose: 5 mg Aspirin (Aspirin 81 Mg Ectab) 81 mg PO DAILY [facility] Stop: 07/02/25 08:59 Last Admin: 06/09/25 08:43 Dose: 81 mg Bupropion HCl (Bupropion Xl 300 Mg Tabcr) 300 mg PO DAILY [facility] Stop: 07/02/25 08:59 Last Admin: 06/09/25 08:43 Dose: 300 mg Dextrose (Dextrose 50% 50 Ml Syringe) 25 - 50 ml IV UD PRN; Protocol PRN Reason: Hypoglycemia Protocol Stop: 07/01/25 23:16 Glucagon (Glucagon For Inj 1 Mg Vial) 1 mg SQ UD PRN; Protocol PRN Reason: Hypoglycemia Protocol Stop: 07/01/25 23:16 Glucose (Glucose 40% Gel 15 Gm Tube) 15 - 30 gm PO UD PRN; Protocol PRN Reason: Hypoglycemia Protocol Stop: 07/01/25 23:16 Glucose (Glucose 10 Tab/Tube) 4 - 8 tab PO UD PRN; Protocol PRN Reason: Hypoglycemia Protocol Stop: 07/01/25 23:16 Promethazine HCl (Phenergan) 12.5 mg in 50.5 mls @ 202 mls/hr IV Q6H PRN PRN Reason: Nausea And Vomiting Stop: 07/02/25 00:03 Daptomycin 700 mg/ Syringe 14 mls @ 7 mls/min IV Q24H [facility]; Protocol Stop: 06/12/25 08:00 Last Admin: 06/09/25 08:46 Dose: 7 mls/min Insulin Aspart (Insulin Aspart Per Unit Charge) 0 units SC ACHS [facility] Stop: 07/01/25 23:19 Last Admin: 06/09/25 13:18 Dose: 16 units Insulin Glargine (Toujeo Solostar) 0 units SQ BID [facility]; Protocol Stop: 07/02/25 00:59 Last Admin: 06/09/25 08:44 Dose: 65 units Lactobacillus Acidophilus (Advanced Probiotic 625 Mg Capsule) 1,250 mg PO DAILY [facility] Stop: 07/02/25 08:59 Last Admin: 06/09/25 08:43 Dose: 1,250 mg Lisinopril (Lisinopril 20 Mg Tab) 20 mg PO DAILY [facility] Stop: 07/02/25 08:59 Last Admin: 06/02/25 09:11 Dose: 20 mg Metoprolol Succinate (Metoprolol Succ 50mg Ext Rel Tab) 50 mg PO BID [facility] Stop: 07/02/25 08:59 Last Admin: 06/09/25 08:42 Dose: 50 mg Miscellaneous (Carbohydrates For Hypoglycemia ) 15 - 30 gm PO UD PRN PRN Reason: Hypoglycemia Protocol Stop: 07/01/25 23:16 Miscellaneous Information (Pharmacy Glycemic Mgmt Consult) 1 each N/A UD PRN; Protocol PRN Reason: Consult Stop: 07/01/25 23:51 Multivitamins/Minerals (Cerovite Adv Formula Tab) 1 tab PO DAILY [facility] Stop: 07/02/25 08:59 Last Admin: 06/09/25 08:43 Dose: 1 tab Nystatin (Nystatin Powder 15gm Btl) 1 appln EXT BID [facility] Stop: 07/09/25 08:59 Last Admin: 06/09/25 08:43 Dose: 1 appln Oxycodone HCl (Oxycodone Hcl Ir 5 Mg Tab (Immediate Release)) 5 mg PO Q4H PRN PRN Reason: Pain Stop: 06/16/25 00:03 Polyethylene Glycol (Polyethylene (Miralax) 17 Gm Pack) 17 gm PO DAILY PRN PRN Reason: Constipation Stop: 07/06/25 10:18 Last Admin: 06/08/25 08:44 Dose: 17 gm Sertraline HCl (Sertraline Hcl 100 Mg Tablet) 100 mg PO QAM [facility] Stop: 07/02/25 08:59 Last Admin: 06/09/25 08:43 Dose: 100 mg Spironolactone (Spironolactone 25 Mg Tab) 25 mg PO DAILY [facility] Stop: 07/02/25 08:59 Last Admin: 06/02/25 09:10 Dose: 25 mg Tamsulosin HCl (Tamsulosin Hcl 0.4 Mg Cap) 0.4 mg PO QAM [facility] Stop: 07/02/25 08:59 Last Admin: 06/09/25 08:43 Dose: 0.4 mg
--- NOTE | 2025-06-10 15:55 | Hospitalist Progress Note ---
Date of Service June 10, 2025 Assessment & Plan (1) Acute hypoxemic respiratory failure: Plan: Diabetic foot ulcer, left great toe Wound, Right great toe BL lower leg cellulitis CT left foot: No abscess or osteomyelitis Blood cultures: Negative Left toe wound culture: Pending evaluated by orthopedic service, no plans for surgical intervention at this point Podiatry service consulted, debridement not recommended, does not feel patient has osteomyelitis hence no need for MRI 06/05 -- clinically improving: edema mostly resolved, erythema also much improved -- ID service recommends total of 5-day course of daptomycin plus cefepime - per Ortho: If discharged patient should continue to change dressing once daily with Aquacel Ag and a bordered foam dressing to the left hallux. Continue cam boot at all times while weightbearing and ambulating to the left foot using walker for stability. Recommend continuing p.o. antibiotics at discharge for soft tissue coverage. Follow-up in the wound clinic within 2 weeks of discharge. 06/07 Per podiatry - (1) Diabetic ulcer of left great toe: Plan - Continue: Dressing change left hallux once daily with Aquacel Ag and a bordered foam. Dressed bilateral lower extremity with Tubigrip dressing from the base of the toes to the proximal calf. - Continue cam boot at all times while weightbearing and ambulating to the left foot using walker for stability. - Wound culture swab left hallux 06/04/2025: Low counts mixed probable skin microbiota. Left hallux wound reevaluated with no deep extension, tracking, probing or signs of fluid collection. 50% decrease in surface area over the past 48 hours. No signs of local soft tissue infection. Patient okay for discharge from podiatry standpoint. At discharge patient should continue to change dressing once daily with Aquacel Ag and a bordered foam dressing to the left hallux. Continue cam boot at all times while weightbearing and ambulating to the left foot using walker for stability. Recommend continuing p.o. antibiotics at discharge for soft tissue coverage. Follow-up in the wound clinic within 2 weeks of discharge. per ID - discussed with on 06/07 - on discharge - oral Linezolid 600 mg PO BID and Levaquin 750 mg PO daily to complete a total of 14 days. Pt should continue to follow up with podiatry/wound care until the wound heals completely Discussed with the pt - pt feels well overall but does not feel he will do well at home - likely will need rehab - CM aware and involved Cefepime switched to oral Levaquin repeat blood cultx negat.so far, initial blood cultx - most likely contaminant Chest pain - noted 06/05 resolved EKG no acute ischemia troponin negative monitor closely Episode of L hand Paresthesias - resolved CT head no acute CVA continue Xarelto continue Telemetry monitoring Transient hypoxemia - resolved chronic diastolic heart failure (EF 60 to 65%, TTE 2024), patient euvolemic hx nonobstructive CAD/hx PVD PAF on Eliquis hypertension, slightly elevated - improving hyperlipidemia, on statin Rx HCV status post interferon Rx, no recent follow-[place] with [facility] [place]. DM 2 insulin requiring, suboptimal control as of recent hemoglobin A1c of 11 from April 2025 anxiety/mood disorder, at baseline DVT prophylaxis. Eliquis Full code Disposition anticipate d/c in 1-2 days Admission and Anticipated Discharge Date Admission Date: June 01, 2025 Subjective Pt seen in follow up, lying in bed in NAD, resting Denies any fever, chills, chest pain, shortness of breath, denies any abd.pain, or any foot/leg discomfort Podiatry, ID consulted CM involved in DC planning - discussed w/ CM today - she will likely not hear back over the weekend and PT recommending rehab Review of Systems Review of Systems: All systems reviewed & are unremarkable except as noted in Subjective Physical Exam Physical Exam: General- oriented x 3, not in distress, speaks in sentences with no effort or accessory muscle use Eyes- anicteric Neck- no JVD Lungs- clear breath sounds bilaterally, no rales/wheezes Heart- normal rate, regular rhythm; no murmurs Abdomen- normal bowel sounds, nondistended, soft, nontender Extremities- no Bilateral leg edema, very minimal erythema Left great toe wound: Healing well Neuro- alert, oriented x 3; no gross focal neurologic deficits Skin- warm & dry Results & Data Results & Data Vital Signs (Past 12 Hours) Vital Signs Temp Pulse Pulse Resp BP Pulse Ox O2 Del Method 06/10/25 15:21 36.9 C 67 18 131/69 93 Room Air 06/10/25 11:14 37.0 C 59 L 18 137/72 93 Room Air 06/10/25 08:00 56 L 06/10/25 07:41 36.8 C 77 18 116/68 95 Room Air Medications Administered Current Inpatient Medications Acetaminophen (Acetaminophen 325 Mg Tab) 650 mg PO QID PRN PRN Reason: pain/fever Stop: 07/02/25 00:03 Apixaban (Apixaban 5 Mg Tablet) 5 mg PO BID [facility] Stop: 07/02/25 08:59 Last Admin: 06/10/25 08:27 Dose: 5 mg Aspirin (Aspirin 81 Mg Ectab) 81 mg PO DAILY [facility] Stop: 07/02/25 08:59 Last Admin: 06/10/25 08:26 Dose: 81 mg Bupropion HCl (Bupropion Xl 300 Mg Tabcr) 300 mg PO DAILY [facility] Stop: 07/02/25 08:59 Last Admin: 06/10/25 08:27 Dose: 300 mg Dextrose (Dextrose 50% 50 Ml Syringe) 25 - 50 ml IV UD PRN; Protocol PRN Reason: Hypoglycemia Protocol Stop: 07/01/25 23:16 Glucagon (Glucagon For Inj 1 Mg Vial) 1 mg SQ UD PRN; Protocol PRN Reason: Hypoglycemia Protocol Stop: 07/01/25 23:16 Glucose (Glucose 40% Gel 15 Gm Tube) 15 - 30 gm PO UD PRN; Protocol PRN Reason: Hypoglycemia Protocol Stop: 07/01/25 23:16 Glucose (Glucose 10 Tab/Tube) 4 - 8 tab PO UD PRN; Protocol PRN Reason: Hypoglycemia Protocol Stop: 07/01/25 23:16 Promethazine HCl (Phenergan) 12.5 mg in 50.5 mls @ 202 mls/hr IV Q6H PRN PRN Reason: Nausea And Vomiting Stop: 07/02/25 00:03 Daptomycin 700 mg/ Syringe 14 mls @ 7 mls/min IV Q24H MUL[facility]; Protocol Stop: 06/12/25 08:00 Last Admin: 06/10/25 08:26 Dose: 7 mls/min Insulin Aspart (Insulin Aspart Per Unit Charge) 0 units SC ACHS [facility] Stop: 07/01/25 23:19 Last Admin: 06/10/25 12:48 Dose: 18 units Insulin Glargine (Toujeo Solostar) 0 units SQ BID [facility]; Protocol Stop: 07/02/25 00:59 Last Admin: 06/10/25 08:28 Dose: 65 units Lactobacillus Acidophilus (Advanced Probiotic 625 Mg Capsule) 1,250 mg PO DAILY [facility] Stop: 07/02/25 08:59 Last Admin: 06/10/25 08:26 Dose: 1,250 mg Levofloxacin (Levofloxacin 750 Mg Tab) 750 mg PO DAILY@1100 [facility]; Protocol Stop: 06/17/25 11:59 Last Admin: 06/10/25 13:01 Dose: 750 mg Lisinopril (Lisinopril 20 Mg Tab) 20 mg PO DAILY [facility] Stop: 07/02/25 08:59 Last Admin: 06/02/25 09:11 Dose: 20 mg Metoprolol Succinate (Metoprolol Succ 50mg Ext Rel Tab) 50 mg PO BID [facility] Stop: 07/02/25 08:59 Last Admin: 06/10/25 08:27 Dose: 50 mg Miscellaneous (Carbohydrates For Hypoglycemia ) 15 - 30 gm PO UD PRN PRN Reason: Hypoglycemia Protocol Stop: 07/01/25 23:16 Miscellaneous Information (Pharmacy Glycemic Mgmt Consult) 1 each N/A UD PRN; Protocol PRN Reason: Consult Stop: 07/01/25 23:51 Multivitamins/Minerals (Cerovite Adv Formula Tab) 1 tab PO DAILY [facility] Stop: 07/02/25 08:59 Last Admin: 06/10/25 08:27 Dose: 1 tab Nystatin (Nystatin Powder 15gm Btl) 1 appln EXT BID [facility] Stop: 07/09/25 08:59 Last Admin: 06/10/25 08:28 Dose: 1 appln Oxycodone HCl (Oxycodone Hcl Ir 5 Mg Tab (Immediate Release)) 5 mg PO Q4H PRN PRN Reason: Pain Stop: 06/16/25 00:03 Polyethylene Glycol (Polyethylene (Miralax) 17 Gm Pack) 17 gm PO DAILY PRN PRN Reason: Constipation Stop: 07/06/25 10:18 Last Admin: 06/08/25 08:44 Dose: 17 gm Sertraline HCl (Sertraline Hcl 100 Mg Tablet) 100 mg PO QAM [facility] Stop: 07/02/25 08:59 Last Admin: 06/10/25 08:27 Dose: 100 mg Spironolactone (Spironolactone 25 Mg Tab) 25 mg PO DAILY [facility] Stop: 07/02/25 08:59 Last Admin: 06/02/25 09:10 Dose: 25 mg Tamsulosin HCl (Tamsulosin Hcl 0.4 Mg Cap) 0.4 mg PO QAM [facility] Stop: 07/02/25 08:59 Last Admin: 06/10/25 08:26 Dose: 0.4 mg
--- NOTE | 2025-06-11 17:55 | Hospitalist Progress Note ---
Date of Service June 11, 2025 Assessment & Plan (1) Acute hypoxemic respiratory failure: Plan: Diabetic foot ulcer, left great toe Wound, Right great toe BL lower leg cellulitis CT left foot: No abscess or osteomyelitis Blood cultures: Negative Left toe wound culture: Pending evaluated by orthopedic service, no plans for surgical intervention at this point Podiatry service consulted, debridement not recommended, does not feel patient has osteomyelitis hence no need for MRI 06/05 -- clinically improving: edema mostly resolved, erythema also much improved -- ID service recommends total of 5-day course of daptomycin plus cefepime - per Ortho: If discharged patient should continue to change dressing once daily with Aquacel Ag and a bordered foam dressing to the left hallux. Continue cam boot at all times while weightbearing and ambulating to the left foot using walker for stability. Recommend continuing p.o. antibiotics at discharge for soft tissue coverage. Follow-up in the wound clinic within 2 weeks of discharge. 06/07 Per podiatry - (1) Diabetic ulcer of left great toe: Plan - Continue: Dressing change left hallux once daily with Aquacel Ag and a bordered foam. Dressed bilateral lower extremity with Tubigrip dressing from the base of the toes to the proximal calf. - Continue cam boot at all times while weightbearing and ambulating to the left foot using walker for stability. - Wound culture swab left hallux 06/04/2025: Low counts mixed probable skin microbiota. Left hallux wound reevaluated with no deep extension, tracking, probing or signs of fluid collection. 50% decrease in surface area over the past 48 hours. No signs of local soft tissue infection. Patient okay for discharge from podiatry standpoint. At discharge patient should continue to change dressing once daily with Aquacel Ag and a bordered foam dressing to the left hallux. Continue cam boot at all times while weightbearing and ambulating to the left foot using walker for stability. Recommend continuing p.o. antibiotics at discharge for soft tissue coverage. Follow-up in the wound clinic within 2 weeks of discharge. per ID - discussed with on 06/07 - on discharge - oral Linezolid 600 mg PO BID and Levaquin 750 mg PO daily to complete a total of 14 days. Pt should continue to follow up with podiatry/wound care until the wound heals completely Discussed with the pt - pt feels well overall but does not feel he will do well at home - likely will need rehab - CM aware and involved Cefepime switched to oral Levaquin repeat blood cultx negat.so far, initial blood cultx - most likely contaminant dapto switched to linezolid Chest pain - noted 06/05 resolved EKG no acute ischemia troponin negative monitor closely Episode of L hand Paresthesias - resolved CT head no acute CVA continue Xarelto continue Telemetry monitoring Transient hypoxemia - resolved chronic diastolic heart failure (EF 60 to 65%, TTE 2024), patient euvolemic hx nonobstructive CAD/hx PVD PAF on Eliquis hypertension, slightly elevated - improving hyperlipidemia, on statin Rx HCV status post interferon Rx, [place] [facility]. DM 2 insulin requiring, suboptimal control as of recent hemoglobin A1c of 11 from April 2025 anxiety/mood disorder, at baseline DVT prophylaxis. Eliquis Full code Disposition anticipate d/c in 1-2 days Admission and Anticipated Discharge Date Admission Date: June 01, 2025 Subjective Pt seen in follow up, in NAD Denies any fever, chills, chest pain, shortness of breath, denies any abd.pain, or any foot/leg discomfort Podiatry, ID consulted CM involved in DC planning - discussed w/ CM yesterday - she will likely not hear back over the weekend and PT recommending rehab. Will discuss again w/ CM tmrw. Will have PT to re-aval. Review of Systems Review of Systems: All systems reviewed & are unremarkable except as noted in Subjective Physical Exam Physical Exam: General- oriented x 3, not in distress, speaks in sentences with no effort or accessory muscle use Eyes- anicteric Neck- no JVD Lungs- clear breath sounds bilaterally, no rales/wheezes Heart- normal rate, regular rhythm; no murmurs Abdomen- normal bowel sounds, nondistended, soft, nontender Extremities- no Bilateral leg edema, very minimal erythema Left great toe wound: Healing well Neuro- alert, oriented x 3; no gross focal neurologic deficits Skin- warm & dry Results & Data Results & Data Vital Signs (Past 12 Hours) Vital Signs Temp Pulse Pulse Resp BP Pulse Ox O2 Del Method 06/11/25 15:24 36.8 C 73 16 141/75 H 95 Room Air 06/11/25 11:53 36.6 C 72 20 137/80 95 Room Air 06/11/25 09:54 Room Air 06/11/25 08:36 37.0 C 72 16 129/67 91 Room Air 06/11/25 06:47 64
[2025-06-11] MEDS: LINEZOLID 600 MG TAB PO SCH (21:03)
--- NOTE | 2025-06-12 13:11 | Pharmacy Report ---
Pharmacy Glycemic Short Note 2 - Date of Service June 12, 2025 - Glycemic Short BSG Results (Last 24 hours): 06/11/25 06/11/25 06/12/25 16:56 20:02 08:21 POC Glucose 124 H 205 H 142 H 06/12/25 11:25 POC Glucose 169 H OUTPATIENT ANTIDIABETIC REGIMEN: * Toujeo 100 units SC BID * Novolog SC TID with meals (60/20/60 units) * Empagliflozin 25 mg PO daily * Metformin ER 750 mg PO daily * HbA1c: 11% (04/13/25) ASSESSMENT: 06/12: * Patient received 110 units of insulin yesterday, of which 65 units were basal insulin * Fasting BSG 142 mg/dL - continue same basal * No change to CF/CR 06/08: * Facundo received a total of 100 units of insulin yesterday (60 units were basal an 40 units were bolus). Despite the increase of insulin use, BSGs were still mostly above goal yesterday ([phone]/dL). * Fasting BSG this morning was 150mg/dL. Increased basal insulin ~10% this morning and tightened the CR. * He continues on cefepime and daptomycin. 06/05: * Patient received 76 units of insulin yesterday, 50 of which were basal. BSGs were: 157-254-153-254 mg/dL. * Fasting BSG this AM was 161 mg/dL, trending upward. Will increase basal by 20% this AM. * Remains on Daptomycin + Cefepime. Tolerating T2DM diet. No change to Novolog today. 06/04: * Facundo's BSGs have been well controlled over the last 48 hours, ranging 90- 257 mg/dL. Requiring ~65 units of insulin per day, 30-40 of which were basal. * Fasting BSG this AM was 133 mg/dL. Will continue to hold basal insulin at bedtime. However, will increase AM basal dose to 50 units today. Believe lower BSGs over the last 48 hours can be explained by increased basal dose received on first day of admission. * Stressors remain stable. On abx in the form of Cefepime and Daptomycin. Ordered and tolerating a T2DM diet. * Will tighten Novolog parameters this AM to help control postprandial hyperglycemia. 06/02: * 64 yo M admitted with toe ulcer, seen by ortho today, no debridement indicated at this time, wound care. * IV Cefepime and Daptomycin. * Patient using home Toujeo, had 60 units at 0130 this AM, BSG 96mg/dl this morning, will reduce dose for now, eating well. * If patient runs out of home insulin, will change to NPH for basal insulin d/t allergy to Lantus. PLAN FOR INPATIENT GLYCEMIC CONTROL: * Hold outpatient oral diabetes medications * Basal insulin * Toujeo 65 units SC AM * Bolus insulin * NovoLog per scale ACHS or Q6hrs while NPO * Goal Range: Low 110 mg/dL - High 140 mg/dL * Correction Factor: 30 mg/dL/unit * Nutritional / Prandial insulin per carb ratio of 1 unit per 4 grams CHO consumed
[2025-06-12 15:32] VITALS: RESP 18; TEMP 97.9; O2SAT 95
[2025-06-12 16:49] VITALS: BP 134/80; PULSE 80
--- NOTE | 2025-06-12 16:52 | Discharge Summary ---
Date of Service June 12, 2025 Admission HPI Per Admitting Provider History obtained from patient, family, and records. Medical history significant for chronic diastolic heart failure (EF 60 to 65%, TTE 2024), nonobstructive CAD, PVD, PAF on Eliquis, hypertension, hyperlipidemia, HCV status post interferon Rx, DM 2 insulin requiring, history of toxoplasmosis chorioretinitis as per records, history of TB as per records, anxiety/mood disorder, substance abuse. Recent confinement April 2025 traumatic rhabdomyolysis and pneumonia. Patient seen at the ER 3 weeks ago for bilateral LE cellulitis. Patient discharged on Keflex course. Doxycycline later added to patient regimen by PCP on follow-up visit 2 weeks ago. Leg swelling improved as per patient. Patient went to nail salon to have his toenails trimmed today. Nail salon carpet technician expressed concern about ulcer on left big toe with some drainage. Patient unaware of wound until pointed out by restaurant maintenance technician. Denies chest pain, SOB, cough, fever or chills. Intermittent O2 sats of 80s documented at the ER. Vancomycin and cefepime administered at the ER. Medical History as above Surgical History : Scalp laceration surgery, varicose vein surgery Family History : DM, heart disease Personal/Social history : Non-smoker, occasional EtOH intake, disabled Admission Exam Per Admitting Provider GENERAL: Comfortable, obese, slightly anxious/restless, no respiratory distress SKIN: Normal color, warm HEENT: [place] palpebral conjunctivae, no ptosis, moist buccal mucosa NECK : Supple, short neck, no tenderness CHEST : Decreased breath sounds, no tenderness HEART : RRR, no obvious murmurs ABDOMEN: Some distention, nontender EXTREMITIES : Bilateral LE swelling without tenderness, ulcerated wound left great toe with scant drainage, palpable pulses, no other conspicuous deformities noted NEUROLOGIC : Coherent, no facial asymmetry, no other gross focality Principal Diagnosis Diabetic foot wound infection Discharge Exam General- oriented x 3, not in distress, speaks in sentences with no effort or accessory muscle use Eyes- anicteric Neck- no JVD Lungs- clear breath sounds bilaterally, no rales/wheezes Heart- normal rate, regular rhythm; no murmurs Abdomen- normal bowel sounds, nondistended, soft, nontender Extremities- no Bilateral leg edema, very minimal erythema Left great toe wound: Healing well Neuro- alert, oriented x 3; no gross focal neurologic deficits Skin- warm & dry Discharge Data Allergies Allergy/AdvReac Type Severity Reaction Status Date / Time shellfish derived Allergy Severe Swelling Verified 03/30/25 13:50 amoxicillin Allergy Intermediate HIVES Verified 03/30/25 13:50 clavulanic acid Allergy Intermediate HIVES Verified 03/30/25 13:50 permethrin Allergy Intermediate swelling Verified 03/30/25 13:50 shrimp Allergy Intermediate SWELLS Verified 03/30/25 13:50 sulfamethoxazole Allergy Unknown CAN'T Verified 03/30/25 13:50 [From Bactrim] REMEMBER trimethoprim [From Bactrim] Allergy Unknown CAN'T Verified 03/30/25 13:50 REMEMBER insulin glargine AdvReac Severe CHF PER Verified 03/30/25 13:50 [From Lantus U-100 Insulin] [facility] Consultations 06/01/25 23:13 ED Decision to Admit Stat 06/02/25 03:28 Consult Orthopedic Surgery Routine 06/02/25 11:34 Consult Infectious Diseases Routine Ordered Studies 06/01/25 23:50 CT foot LT wo con Stat IMPRESSION: Degenerative changes are seen in the intertarsal and second tarsometatarsal joints?unchanged. A small calcaneal spur is seen. Diffuse subcutaneous stranding and thickening is seen, predominantly along the dorsum of the foot?likely cellulitis. 06/03/25 00:13 CT head/brain wo con Stat IMPRESSION: 1. No major acute territorial infarction seen at present study. Early changes of stroke may not be detected on a CT scan. If strong clinical suspicion of stroke then suggest MRI with diffusion-weighted imaging. 2. Re-demonstration of encephalomalacic changes with prominent extra-axial space in right anterior temporal region, this could be due to prior traumatic insult / ischemic changes. 3. Chronic microvascular ischemic changes and senile cortical atrophy. 4. No significant interval changes since previous study. Hospital Course (1) Acute hypoxemic respiratory failure: Diabetic foot ulcer, left great toe Wound, Right great toe BL lower leg cellulitis CT left foot: No abscess or osteomyelitis Blood cultures: Negative Left toe wound culture: Pending evaluated by orthopedic service, no plans for surgical intervention at this point Podiatry service consulted, debridement not recommended, does not feel patient has osteomyelitis hence no need for MRI 06/05 -- clinically improving: edema mostly resolved, erythema also much improved -- ID service recommends total of 5-day course of daptomycin plus cefepime - per Ortho: If discharged patient should continue to change dressing once daily with Aquacel Ag and a bordered foam dressing to the left hallux. Continue cam boot at all times while weightbearing and ambulating to the left foot using walker for stability. Recommend continuing p.o. antibiotics at discharge for soft tissue coverage. Follow-up in the wound clinic within 2 weeks of discharge. 06/07 Per podiatry - (1) Diabetic ulcer of left great toe: Plan - Continue: Dressing change left hallux once daily with Aquacel Ag and a bordered foam. Dressed bilateral lower extremity with Tubigrip dressing from the base of the toes to the proximal calf. - Continue cam boot at all times while weightbearing and ambulating to the left foot using walker for stability. - Wound culture swab left hallux 06/04/2025: Low counts mixed probable skin microbiota. Left hallux wound reevaluated with no deep extension, tracking, probing or signs of fluid collection. 50% decrease in surface area over the past 48 hours. No signs of local soft tissue infection. Patient okay for discharge from podiatry standpoint. At discharge patient should continue to change dressing once daily with Aquacel Ag and a bordered foam dressing to the left hallux. Continue cam boot at all times while weightbearing and ambulating to the left foot using walker for stability. Recommend continuing p.o. antibiotics at discharge for soft tissue coverage. Follow-up in the wound clinic within 2 weeks of discharge. per ID - discussed with on 06/07 - on discharge - oral Linezolid 600 mg PO BID and Levaquin 750 mg PO daily to complete a total of 14 days. Pt should continue to follow up with podiatry/wound care until the wound heals completely Discussed with the pt - pt feels well overall but does not feel he will do well at home - likely will need rehab - CM aware and involved Cefepime switched to oral Levaquin repeat blood cultx negative, initial blood cultx - most likely contaminant dapto switched to linezolid Pt seen by PT again - recommend to use a walker, ok to DC home. Pt wants to be discharged home, says he is much improved now and can ambulate. He is using a boot on his left foot. 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 DM 2 insulin requiring, suboptimal control as of recent hemoglobin A1c of 11 from April 2025 anxiety/mood disorder, at baseline Total Time Total Time Spent Total Time Spent (In Minutes): 40 Discharge Plan Discharge Items Patient Disposition: Home - Self-Care Reason For Visit: RESP FAILURE Discharge Diagnosis: Diabetic foot wound infection Condition on Discharge: Fair Activity: Per Instructions section Non-emergency contact: Primary Care Provider and Specialist Call non-emergency contact if: you have any medication questions and your symptoms worsen Follow-up/Referrals: Willam Fofana, [Primary Care Provider] - Diet: Carb Consistent or DM2 and Heart Healthy Addtl Attending Provider Instructions: Follow up with your primary care doctor within 1 week. Finish antibiotic course with linezolid and levaquin, as prescribed. Change dressings daily. Follow up with podiatry /wound care until your foot is healed. It is important to monitor your blood sugar levels and closely follow up with your primary care doctor regarding your diabetes. Use boot for your left foot and use a walker when ambulating. Addtl Color Artist Provider Instructions: DIABETES RECOMMENDATIONS: To support healing, it is important that blood sugar levels are within a reasonably safe range more often. To help improve bloods sugar levels: 1.) Lifestyle changes are encouraged. - Eliminate Kash D, juices and milk to drink between meals. - Consume milk with meals only. - Aim for protein/vegetables with all meals. 2.) Novolog. - Even if your blood sugar is reasonable, you still need to take Novolog with meals to help cover the food you eat. - Try to focus on taking your Novolog immediately before each meal instead of after/chasing the highs. Pending Studies at Discharge: No Stand-Alone Forms: My [employer], Smoking Cessation Medications and DC Order Prescriptions: New levofloxacin 750 mg Tablet 750 mg PO DAILY Qty: 3 0RF linezolid 600 mg Tablet 600 mg PO BID Qty: 7 0RF Continued Jardiance 25 mg tablet 25 mg PO QAM ascorbic acid (vitamin C) [Vitamin C] 500 mg Tablet 1,000 mg PO DAILY Multiple Vitamin-Minerals Tablet 1 tab PO DAILY insulin glargine U-300 conc [Toujeo Max U-300 SoloStar] 300 unit/mL (3 mL) insulin pen 100 unit SUBCUT BID sertraline 100 mg tablet 100 mg PO QAM albuterol sulfate 90 mcg/actuation HFA aerosol inhaler 90 mcg INHALATION Q4H PRN (Reason: Wheezing) metoprolol succinate 50 mg Tablet Extended Release 24 Hr 50 mg PO BID Qty: 60 0RF tamsulosin 0.4 mg capsule 0.4 mg PO QAM nitroglycerin 0.4 mg Tablet, Sublingual 0.4 mg sublingual DIRECTED MDD 3 PRN (Reason: Chest Pain) bupropion HCl 300 mg tablet extended release 24 hr 300 mg PO DAILY cinnamon bark [Cinnamon] 500 mg Capsule 500 mg PO DAILY Qty: 0 Rx Instructions: CG Bacillus coagulans-inulin 1 billion-250 cell-mg Capsule 1 cap PO DAILY metformin 750 mg tablet extended release 24 hr 750 mg PO DAILY Qty: 30 0RF Advanced Probiotic 625 mg (10 billion cell) Capsule 1 cap PO DAILY Qty: 30 0RF Eliquis 5 mg Tablet 5 mg PO BID Qty: 74 0RF fluticasone furoate [Arnuity Ellipta] 100 mcg/actuation blister with device 100 mcg INHALATION DAILY insulin aspart U-100 100 unit/mL (3 mL) insulin pen 60 unit SUBCUT BID Rx Instructions: 60u with breakfast, 20u w/lunch, 60u with supper cyanocobalamin (vitamin B-12) [Vitamin B-12] 1,000 mcg Tablet Extended Release 1,000 mcg PO aspirin 81 mg Tablet,Chewable 81 mg PO DAILY Held lisinopril 20 mg tablet 20 mg PO DAILY Hold Instructions: Resume on 06/15/25. until seen by primary care doctor furosemide [Lasix] 20 mg tablet 60 mg PO QAM Hold Instructions: Resume on 06/15/25. until seen by primary care doctor spironolactone 25 mg Tablet 25 mg PO DAILY Hold Instructions: Resume on 06/15/25. until seen by primary care doctor Discontinued doxycycline hyclate 100 mg PO BID mupirocin See Rx Instructions .ROUTE .COMPLEX Rx Instructions: Mupirocin 2% externa Ointment. Apply 1 application topicallu to affeced area in the am and one application before bed. Apply to leg wound Discharge Orders: Discharge Order (Routine); Ordered 06/12/25 Ordered By: Cuong Valderrama/Other Patient Handouts: Nutrition for Wound Healing, High Blood Sugar (Hyperglycemia), Managing Type 2 Diabetes Admission Data Admit Date/Time: 06/01/25 23:59 Attending Provider: Cuong Black Admit Provider: Khoa Tong Primary Care Provider: Willam Fofana Other Providers: Khoa Tong; Gualberto Patel; Benjie Kelley; Santos Garcia; Mau Keating I.; Arun Sadler II; Joelle Ford; Bhanu Martinez; Isaac Naqvi; Leatha Haines; Sonido Starr; [facility]; [place]; [facility], Other Interventions: Discharge Summary Assessment (RN) Last Done: 06/12/25 16:40
== END 2025-06-12 18:05 | disposition home or self-care (01) | DRG 637 ==
LOC: ED 20:27 → SUATTDRO 23:59 → 2S 23:59 → 2N 06-04 21:29

== ENCOUNTER 2025-07-01 08:11 | Inpatient (IN) ==
--- NOTE | 2025-07-01 08:40 | Emergency Department Note ---
History of Present Illness General Chief complaint: Leg Injury/Pain Stated complaint: LEG PAIN, INCONTINENCE Time Seen by Provider: 07/01/25 08:21 History of Present Illness Maximum Pain Intensity: 3 This is a 64-year-old male who presents to the emergency department via private vehicle with complaints of "bilateral leg pain, urinary incontinence". The patient notes chronic urinary incontinence, this is not new. However he does note that he has been following with the wound care center and was also recently admitted for evaluation of the bilateral lower extremity infections. The patient notes that the current dressings on the lower legs have been in place x 3 days and are saturated with urine noting the incontinence. The patient denies any fever but feels overall unwell. Home Medications Medication Instructions Recorded Confirmed Type empagliflozin 25 mg tablet 25 mg PO QAM 08/01/22 07/01/25 History (Jardiance) ascorbic acid (vitamin C) 500 mg 1,000 mg PO DAILY 09/21/22 07/01/25 History tablet (Vitamin C) multivitamin with minerals 1 tab PO DAILY 09/21/22 07/01/25 History (Multiple Vitamin-Minerals tablet) lisinopril 20 mg tablet 20 mg PO DAILY 10/10/23 07/01/25 History sertraline 100 mg tablet 100 mg PO QAM 10/10/23 07/01/25 History insulin glargine U-300 conc 300 100 unit subcut BID 10/14/23 07/01/25 History unit/mL (3 mL) subcutaneous pen (Toujeo Max U-300 SoloStar) albuterol sulfate 90 mcg/actuation 90 mcg inhalation Q4H PRN Wheezing 06/06/24 07/01/25 History aerosol inhaler fluticasone furoate 100 100 mcg inhalation DAILY 08/05/24 07/01/25 History mcg/actuation blister powder for inhalation (Arnuity Ellipta) metoprolol succinate 50 mg 50 mg PO BID #60 tabs 12/13/24 07/01/25 Rx tablet,extended release 24 hr insulin aspart U-100 100 unit/mL 60 unit subcut TIDWMEAL 12/15/24 07/01/25 History (3 mL) subcutaneous pen nitroglycerin 0.4 mg sublingual 0.4 mg sublingual DIRECTED PRN 02/28/25 07/01/25 History tablet Chest Pain tamsulosin 0.4 mg capsule 0.4 mg PO QAM 02/28/25 07/01/25 History Bacillus coagulans-inulin 1 1 cap PO DAILY 03/02/25 07/01/25 History billion cell-250 mg capsule bupropion HCl 300 mg 24 hr tablet, 300 mg PO DAILY 03/02/25 07/01/25 History extended release cinnamon bark 500 mg capsule 500 mg PO DAILY ##0 03/02/25 07/01/25 History (Cinnamon) metformin 750 mg tablet,extended 750 mg PO DAILY #30 tabs 03/06/25 07/01/25 Rx release 24 hr L.acidop,casei,lactis,rham-B.lact,guanakito 1 cap PO DAILY #30 caps 03/09/25 07/01/25 Rx 625 mg (10 billion cell) capsule (Advanced Probiotic) furosemide 20 mg tablet (Lasix) 60 mg PO QAM 03/23/25 07/01/25 History spironolactone 25 mg tablet 25 mg PO DAILY 04/13/25 07/01/25 History apixaban 5 mg tablet (Eliquis) 5 mg PO BID #74 tabs 04/21/25 07/01/25 Rx aspirin 81 mg chewable tablet 81 mg PO DAILY 06/02/25 07/01/25 History cyanocobalamin (vitamin B-12) 1,000 mcg PO DAILY 06/27/25 07/01/25 History 1,000 mcg tablet,extended release (Vitamin B-12 ER) Allergies Allergy/AdvReac Type Severity Reaction Status Date / Time shellfish derived Allergy Severe Swelling Verified 07/01/25 09:44 amoxicillin Allergy Intermediate HIVES Verified 07/01/25 09:44 clavulanic acid Allergy Intermediate HIVES Verified 07/01/25 09:44 permethrin Allergy Intermediate swelling Verified 07/01/25 09:44 shrimp Allergy Intermediate SWELLS Verified 07/01/25 09:44 sulfamethoxazole Allergy Unknown CAN'T Verified 07/01/25 09:44 [From Bactrim] REMEMBER trimethoprim [From Bactrim] Allergy Unknown CAN'T Verified 07/01/25 09:44 REMEMBER insulin glargine AdvReac Severe CHF PER Verified 07/01/25 09:44 [From Lantus U-100 Insulin] [facility] Past Med/Surg History Problem List (Updated 07/01/25 @ 14:24 by Ty Ramsay PA-C) Open wound of both legs with complication Wound of left lower extremity Diabetic ulcer of left great toe Acute hypoxemic respiratory failure Hyperglycemia due to diabetes mellitus (Acute) Failure of outpatient treatment (Acute) Diabetic foot ulcer (Acute) Cellulitis (Acute) Acute dehydration (Acute) Generalized weakness (Acute) Rhabdomyolysis (Acute) Rhabdomyolysis Cellulitis of both lower extremities Diabetes mellitus due to underlying condition, uncontrolled, with hyperglycemia, with long-term current use of insulin Major depressive disorder Cellulitis (Acute) Chronic venous insufficiency Venous ulcers of both lower extremities Stroke-like symptom Facial droop (Acute) Abdominal pain (Acute) Acute confusion (Acute) Hyperglycemia (Acute) Hyperkalemia Shortness of breath Paroxysmal atrial tachycardia Paroxysmal atrial fibrillation Methamphetamine abuse PAC (premature atrial contraction) Sinus tachycardia Atrial fibrillation with RVR Hypoxia (Acute) Hyperglycemia (Acute) Influenza A (Acute) Diabetic peripheral neuropathy (Acute) Diabetic neuropathic arthritis Abdominal wall cellulitis (Acute) Foot pain, left (Acute) Cellulitis of finger, right (Acute) Hyperglycemia (Acute) Burn of abdominal wall (Acute) Unable to care for self (Acute) Generalized muscle weakness (Acute) Ambulatory dysfunction (Acute) Noncompliance w/medication treatment due to intermit use of medication BPH (benign prostatic hyperplasia) Anxiety and depression Bronchitis Uncontrolled type 2 diabetes mellitus with hyperglycemia (Acute) Ambulatory dysfunction (Acute) Generalized weakness (Acute) Acute hyperglycemia (Acute) Morbid obesity with BMI of 40.0-44.9, adult Acute hyperglycemia (Acute) ALEJANDRA (obstructive sleep apnea) Hyperglycemia Nonischemic cardiomyopathy (Chronic) "prior EF 30% per Epic records. echo 02/2015- EF 40-45%" DM type 2 (diabetes mellitus, type 2) (Chronic) H/O TB (tuberculosis) (Chronic) H/O toxoplasmosis (Chronic) Hepatitis C (Chronic) Hypertension (Chronic) Colon polyp (Chronic) "TVA polyp on colonoscopy 09/2014" H/O colonoscopy (Chronic) "11/2015- diverticulosis" S/P cardiac cath (Chronic) "for abnormal stress test. cath 03/18/2015-essentially normal coronaries with no obstructive disease " Colon polyp Confusion (Acute) Hyperglycemia due to type 2 diabetes mellitus (Acute) DVT prophylaxis Polyneuropathy Peripheral vascular disease Depression Bilateral cellulitis of lower leg (Acute) Fatigue (Acute) Encephalopathy Hypercapnic respiratory failure Varicose veins of bilateral lower extremities with other complications Morbid obesity H/O drug abuse Medical History Closed head injury Peripheral neuropathy Acute dehydration Accidental fall tripped over dog bed, hit back of head, checked in the ED poss concussion Dysequilibrium Hepatitis C Diabetes mellitus, type 2 Depression Anxiety Hypertension Surgical History History of colonoscopy History of umbilical hernia repair x2 History of tooth extraction History of wisdom tooth extraction History of cardiac cath 03/2015 @ [facility], no stents follows with Dr. Monet Family History Mother Family history of diabetes mellitus Father Family history of diabetes mellitus Other No family history of adverse response to anesthesia Social History (Updated 06/27/25 @ 13:30 by Clemencia Thompson RN) Smoking Status: Former smoker Tobacco Type: Cigarettes Cigarettes Per Day: Says he occasionally will smoke a cigar.; Second Hand Exposure: No; Do You Dip or Chew Tobacco: No; Hx Alcohol Use: Yes Alcohol type: beer, wine and hard liquor Alcohol Intake Frequency: Monthly or Less Hx Substance Use: Yes Non-Prescribed Medications: Methamphetamines Last Used Substance: Days (ago) Last Used Substance Other:: a couple weeks ago Substance Use Type Other:: MDMA, speed Preferred Language: Faroese Communication Ability: Effective Visual Impairment: Severely Limited Hearing Ability: Normal 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 Beliefs That Will Affect Care: None marital status: Single Current Living Situation: Alone Current Living Situation Comment: lives alone Other Information That Helps Us Care for You: Yes (NO SHRIMP) Feels Safe at Home: Yes Diet: regular caffeine: Yes Gender Identity: Male Assistive Devices: Glasses and Walker Review of Systems A total of 10 systems reviewed and were otherwise negative Physical Exam Vital Signs Vital Signs - 24 hr 07/01/25 08:13 07/01/25 08:58 07/01/25 09:14 Temperature 36.4 C L Temperature Source Oral Pulse Rate 88 92 H 91 H Respiratory Rate 20 20 Respiratory Effort / Characteristics Non-Labored Spontaneous Respiratory Depth Normal Blood Pressure 157/90 H Blood Pressure Mean 112 Pulse Oximetry 97 95 Oxygen Delivery Method Room Air Room Air Sepsis Recent Fever Within 48 Hours No Sepsis New/Unexplained Change in Mental Status N/A Sepsis Action Taken by Nursing No Action Required 07/01/25 09:30 07/01/25 10:30 Temperature Temperature Source Pulse Rate 99 H 96 H Respiratory Rate 25 H 17 Respiratory Effort / Characteristics Respiratory Depth Blood Pressure 141/95 H 178/111 H Blood Pressure Mean 99 131 Pulse Oximetry 97 Oxygen Delivery Method Sepsis Recent Fever Within 48 Hours Sepsis New/Unexplained Change in Mental Status Sepsis Action Taken by Nursing VITAL SIGNS - Vital signs and nursing notes were reviewed. Stable and afebrile. GENERAL -64-year-old male appearing his stated age who is in no acute distress. Communicates well with provider and answers questions appropriately. SKIN -there are dressings noted circumferentially to the bilateral lower extremities. These are saturated right greater than left with wounds that are foul-smelling. With the dressings removed, the bilateral lower extremities distal to the knees are erythematous with several ulcerative type openings to the integument. HEAD - NC/AT. EYES - Sclera anicteric. LUNGS - CTA CARDIAC - RRR EXTREMITIES - +5/5 strength noted in UE/LE bilaterally. Skin as above. Patient is able to plantarflex and dorsiflex the bilateral ankles. Bilateral dorsalis pedis pulses are within normal limits. NEUROLOGIC -cranial nerves grossly intact. PSYCH -alert, oriented and pleasant on exam Course Administered Medications Lactobacillus Acidophilus (Advanced Probiotic 625 Mg Capsule) 1,250 mg PO DAILY MULU Stop: 07/31/25 11:59 Last Admin: 07/01/25 12:00 Dose: 1,250 mg Documented By: CLEMENCIA Discontinued Medications Cefepime HCl (Maxipime 2000mg) 2,000 mg in 20 mls @ 5 mls/min IV NOW STA; Protocol Stop: 07/01/25 10:18 Last Admin: 07/01/25 10:47 Dose: 5 mls/min Documented By: macey Vancomycin HCl 2,500 mg/ (Sodium Chloride) 550 mls @ 200 mls/hr IV NOW ONE Stop: 07/01/25 12:59 Last Admin: 07/01/25 11:27 Dose: Not Given Documented By: macey Insulin Human Regular (Novolin-R Insulin Per Unit Charge) 10 units IV NOW STA Stop: 07/01/25 10:22 Last Admin: 07/01/25 11:26 Dose: 10 units Documented By: macey Co-signed By: CLEMENCIA Medical Decision Making Laboratory Data 07/01/25 09:02 07/01/25 09:02 Lab Results 07/01/25 07/01/25 Range/Units 09:02 10:42 WBC 8.02 (4.8-10.8) K/ul RBC 5.51 (4.70-6.10) M/uL Hgb 15.6 (14.0-18.0) g/dl Hct 47.7 (42.0-52.0) % MCV 86.6 (80.0-100.0) fL MCH 28.3 (25.0-34.0) pg MCHC 32.7 (32.0-36.0) g/dL RDW Std Deviation 43.8 (36.4-46.3) fL RDW Coeff of Marc 13.8 (11.5-14.5) % Plt Count 250 (130-400) K/uL MPV 9.0 L (9.4-12.4) fL Immature Gran % (Auto) 1.0 % Neut % (Auto) 58.0 % Lymph % (Auto) 28.1 % [place] % (Auto) 8.0 % Eos % (Auto) 3.7 % Baso % (Auto) 1.2 % Neut # (Auto) 4.65 (1.40-6.50) K/uL Lymph # (Auto) 2.25 (1.20-3.40) K/uL [place] # (Auto) 0.64 H (0.11-0.59) K/uL Eos # (Auto) 0.30 (0.00-0.50) K/uL Baso # (Auto) 0.10 (0.00-0.20) K/uL Immature Gran # (Auto) 0.08 (0.01-0.20) K/uL Sodium 134 L (136-145) mmol/L Potassium 4.7 (3.5-5.1) mmol/L Chloride 100 (98-107) mmol/L Carbon Dioxide 30 (21-32) mmol/L Anion Gap 4 (3-11) BUN 16 (6-23) mg/dl Creatinine 0.65 (0.6-1.4) mg/dl Est Cr Clr Drug Dosing 153.2 ml/min eGFR 106.54 BUN/Creatinine Ratio 24.6 H (10-20) Glucose 482 H* (70-99(Fasting)) mg/dl POC Glucose 444 H* (70-99) mg/dl Estimat Average Glucose 240 mg/dl Hemoglobin A1c 10.0 H (4.5-5.6) % Lactate 1.2 (0.4-2.0) mmol/L Calcium 9.3 (8.6-10.3) mg/dl Total Bilirubin 0.5 (0.2-1.0) mg/dl AST 25 (13-39) U/L ALT 25 (7-52) U/L Alkaline Phosphatase 97 (34-104) U/L Total Protein 6.8 (6.0-8.3) gm/dl Albumin 3.7 (3.4-5.0) gm/dl Globulin 3.1 (2.5-4.0) gm/dl Albumin/Globulin Ratio 1.2 (0.9-2) Prostate Specific Ag 0.374 (0-4) ng/ml Procalcitonin 0.06 (0-0.5) ng/ml MDM Narrative Patient was seen and evaluated as above in room B7. Review was performed of nursing notes and vital signs. I did review pertinent previous visits and patient history. After obtaining a thorough history and physical examination the above work up was performed. Patient presents to us today for evaluation of the above symptoms and complaint. The patient is well-appearing but does have what appear to be cellulitic lower extremities with dressings in place that are saturated with urine. These were removed. Options of care were discussed with the patient. IV access was established. Labs were drawn. There is no leukocytosis or concerning anemia. Mild hyponatremia 134. There is hyperglycemia 482, 10 units IV regular insulin ordered. Recheck 365. Procalcitonin within normal range. Urinalysis does not suggest infection. IV antibiotics ordered. I do believe that further evaluation and management in the inpatient setting is warranted. Case discussed with the hospitalist service. Please refer to further documentation regarding his stay. Dressings to be changed by nursing staff which was ordered in the EMR and I verbally communicated. GCS: 15 In the evaluation and treatment of this patient the following differential diagnoses were entertained: Cellulitis, abscess, necrotizing fasciitis, venous stasis, among others Impression & Plan Cellulitis Discharge Plan Visit Data Chief Complaint: Leg Injury/Pain Stated Complaint: LEG PAIN, INCONTINENCE ED Provider: Bautista Dai ED Midlevel Provider: Ty Ramsay Discharge Problem: Cellulitis Patient Disposition: Admitted As Inpatient Condition: Fair Discharge Instructions Interventions: ED Discharge Assessment Last Done: 07/01/25 12:18
[2025-07-01 09:16] LABS: Hematocrit (blood only) 47.7 % (42.0-52.0); Hemoglobin 15.6 g/dl (14.0-18.0); Immature Granulocytes # (auto) 0.08 K/uL (0.01-0.20); Immature Granulocytes % (auto) 1.0 %; Mean Corpuscular Hemoglobin 28.3 pg (25.0-34.0); Mean Corpuscular Volume 86.6 fL (80.0-100.0); Platelet Count 250 K/uL (130-400); RDW Standard Deviation 43.8 fL (36.4-46.3); Red Blood Count 5.51 M/uL (4.70-6.10); White Blood Count 8.02 K/ul (4.8-10.8)
[2025-07-01 09:42] LABS: Alanine Aminotransferase 25.0 U/L (7-52); Albumin Globulin Ratio 1.2 (0.9-2); Albumin Level 3.7 gm/dl (3.4-5.0); Alkaline Phosphatase 97.0 U/L (34-104); Anion Gap 4.0 (3-11); Bilirubin,Total 0.5 mg/dl (0.2-1.0); Blood Urea Nitrogen 16.0 mg/dl (6-23); Calcium 9.3 mg/dl (8.6-10.3); Carbon Dioxide 30.0 mmol/L (21-32); Chloride 100.0 mmol/L (98-107); Creatinine Clr Calc Pharmacy 153.2 ml/min; Globulin 3.1 gm/dl (2.5-4.0); Glucose 482.0 mg/dl (70-99(Fasting)); Potassium 4.7 mmol/L (3.5-5.1); Sodium 134.0 mmol/L (136-145); Total Protein 6.8 gm/dl (6.0-8.3)
[2025-07-01] MEDS ORDERED: VANCOMYCIN CONSULT ACTIVE PRN (10:15)
[2025-07-01] MEDS: CEFEPIME 2000MG 2,000 MG/20 ML SYR IV STA (10:47)
[2025-07-01 11:13] LABS: Appearance Urine Clear (Clear); Glucose Urine UA 2+ (Negative)
[2025-07-01] MEDS ORDERED: PHARMACY GLYCEMIC MGMT CONSULT PRN (11:23)
[2025-07-01] MEDS: NovoLIN-R INSULIN PER UNIT CHARGE IV STA (11:26)
[2025-07-01] MEDS: VANCOMYCIN HCL 2,500 MG in SODIUM CHLORIDE 0.9% 500 ML IV ONE (11:27)
[2025-07-01] MEDS ORDERED: CARBOHYDRATES FOR HYPOGLYCEMIA PO PRN (11:28)
[2025-07-01] MEDS ORDERED: DEXTROSE 50% 50 ML SYRINGE IV PRN (11:28)
[2025-07-01] MEDS ORDERED: GLUCAGON FOR INJ 1 MG VIAL SQ PRN (11:28)
[2025-07-01] MEDS ORDERED: GLUCOSE 10 TAB/TUBE PO PRN (11:28)
[2025-07-01] MEDS ORDERED: GLUCOSE 40% GEL 15 GM TUBE PO PRN (11:28)
--- NOTE | 2025-07-01 11:50 | History & Physical Report ---
Date of Service July 01, 2025 Assessment & Plan (1) Bilateral cellulitis of lower leg: (2) Open wound of both legs with complication: (3) Diabetes mellitus due to underlying condition, uncontrolled, with hyperglycemia, with long-term current use of insulin: Plan: Medical history significant for chronic diastolic heart failure (EF 60 to 65%, TTE 2024), nonobstructive CAD, PVD, PAF on Eliquis, hypertension, hyperlipidemia, HCV status post interferon Rx, DM 2 insulin requiring, history of toxoplasmosis chorioretinitis as per records, history of TB as per records, anxiety/mood disorder, substance abuse. BILATERAL LOWER EXTREMITY CELLULITIS BILATERAL LOWER LEG WOUNDS RECURRENT recently discharged Jun 12 from [facility] after being treated for BL lower extremity cellulitis and L great toe wound completed 2 week course of PO Linezolid and Levaquin follows with wound care center readmitted due to worsening BL lower extremity pain, redness complicated by DM 2, urinary incontinence wound culture blood culture empiric Daptomycin + Cefepime ID consult Wound care consult URINARY INCONTINENCE BPH affecting wound healing UA no signs of UTI bladder scan q8h check PSA [place] catheter ordered Urology consulted RECENT BL GREAT TOE ULCER healing well monitor HYPERGLYCEMIA DM 2 hold Jardiance, Metformin check A1c [facility] Pharmacy Glycemic consult CHF, DIASTOLIC euvolemic to dry hold Lasix, Spironolactone re-evaluate daily CAD, NONOBSTRUCTIVE- continue Metoprolol, , ASA PAROXYSMAL A FIB ON ELIQUIS PERIPHERAL VASCULAR DISEASE HTN ANXIETY/DEPRESSION SUBSTANCE ABUSE HISTORY OF HEP C S/P INTERFERON THERAPY DVT PROPHYLAXIS- on Eliquis FULL CODE as per patient DISPOSITION- admit to med/surg total time spent 80 minutes including discussion with ER provider, outpatient records and inpatient chart review, etc History of Present Illness Chief Complaint: BL Lower extremity pain, redness Primary Care Provider: Willam Fofana DO Medical history significant for chronic diastolic heart failure (EF 60 to 65%, TTE 2024), nonobstructive CAD, PVD, PAF on Eliquis, hypertension, hyperlipidem ia, HCV status post interferon Rx, DM 2 insulin requiring, history of toxoplasmosis chorioretinitis as per records, history of TB as per records, anxiety/mood disorder, substance abuse. Patient was admitted to [facility] last Jun 02 to Jun 12, 2025 for BL Lower extremity cellulitis and Great toe wounds. He was discharged on a 2 week course of Linezolid and Levaquin which he completed. He also follows with [facility] wound center with last visit on Jun 27. Patient reports that he changes his wound dressings every other day. However, for the past few days, he noted increased discomfort, and redness over his BL lower legs. Of note, he also notes that he has been having urinary incontinence with his urine dripping down his legs frequently. Denies fever/chills, dysuria, hematuria. At the ER, BP 157/90, afebrile Noted lower extremities dressing saturated with urine Cefepime administered BSG 400s, unable to take insulin at home this morning Insulin Aspart 10 units ordered On exam, patient somewhat drowsy but easily awakened no chest pain, dyspnea, palpitations, dizziness no other symptoms Allergies Allergy/AdvReac Type Severity Reaction Status Date / Time shellfish derived Allergy Severe Swelling Verified 07/01/25 09:44 amoxicillin Allergy Intermediate HIVES Verified 07/01/25 09:44 clavulanic acid Allergy Intermediate HIVES Verified 07/01/25 09:44 permethrin Allergy Intermediate swelling Verified 07/01/25 09:44 shrimp Allergy Intermediate SWELLS Verified 07/01/25 09:44 sulfamethoxazole Allergy Unknown CAN'T Verified 07/01/25 09:44 [From Bactrim] REMEMBER trimethoprim [From Bactrim] Allergy Unknown CAN'T Verified 07/01/25 09:44 REMEMBER insulin glargine AdvReac Severe CHF PER Verified 07/01/25 09:44 [From Lantus U-100 Insulin] [facility] Home Medications Medication Instructions Recorded Confirmed Type empagliflozin 25 mg tablet 25 mg PO QAM 08/01/22 07/01/25 History (Jardiance) ascorbic acid (vitamin C) 500 mg 1,000 mg PO DAILY 09/21/22 07/01/25 History tablet (Vitamin C) multivitamin with minerals 1 tab PO DAILY 09/21/22 07/01/25 History (Multiple Vitamin-Minerals tablet) lisinopril 20 mg tablet 20 mg PO DAILY 10/10/23 07/01/25 History sertraline 100 mg tablet 100 mg PO QAM 10/10/23 07/01/25 History insulin glargine U-300 conc 300 100 unit subcut BID 10/14/23 07/01/25 History unit/mL (3 mL) subcutaneous pen (Toujeo Max U-300 SoloStar) albuterol sulfate 90 mcg/actuation 90 mcg inhalation Q4H PRN Wheezing 06/06/24 07/01/25 History aerosol inhaler fluticasone furoate 100 100 mcg inhalation DAILY 08/05/24 07/01/25 History mcg/actuation blister powder for inhalation (Arnuity Ellipta) metoprolol succinate 50 mg 50 mg PO BID #60 tabs 12/13/24 07/01/25 Rx tablet,extended release 24 hr insulin aspart U-100 100 unit/mL 60 unit subcut TIDWMEAL 12/15/24 07/01/25 History (3 mL) subcutaneous pen nitroglycerin 0.4 mg sublingual 0.4 mg sublingual DIRECTED PRN 02/28/25 07/01/25 History tablet Chest Pain tamsulosin 0.4 mg capsule 0.4 mg PO QAM 02/28/25 07/01/25 History Bacillus coagulans-inulin 1 1 cap PO DAILY 03/02/25 07/01/25 History billion cell-250 mg capsule bupropion HCl 300 mg 24 hr tablet, 300 mg PO DAILY 03/02/25 07/01/25 History extended release cinnamon bark 500 mg capsule 500 mg PO DAILY ##0 03/02/25 07/01/25 History (Cinnamon) metformin 750 mg tablet,extended 750 mg PO DAILY #30 tabs 03/06/25 07/01/25 Rx release 24 hr L.acidop,casei,lactis,rham-B.lact,guanakito 1 cap PO DAILY #30 caps 03/09/25 07/01/25 Rx 625 mg (10 billion cell) capsule (Advanced Probiotic) furosemide 20 mg tablet (Lasix) 60 mg PO QAM 03/23/25 07/01/25 History spironolactone 25 mg tablet 25 mg PO DAILY 04/13/25 07/01/25 History apixaban 5 mg tablet (Eliquis) 5 mg PO BID #74 tabs 04/21/25 07/01/25 Rx aspirin 81 mg chewable tablet 81 mg PO DAILY 06/02/25 07/01/25 History cyanocobalamin (vitamin B-12) 1,000 mcg PO DAILY 06/27/25 07/01/25 History 1,000 mcg tablet,extended release (Vitamin B-12 ER) Past Med/Surg History Problem List (Updated 07/01/25 @ 11:40 by Sonido Starr MD) Open wound of both legs with complication Wound of left lower extremity Diabetic ulcer of left great toe Acute hypoxemic respiratory failure Hyperglycemia due to diabetes mellitus (Acute) Failure of outpatient treatment (Acute) Diabetic foot ulcer (Acute) Cellulitis (Acute) Acute dehydration (Acute) Generalized weakness (Acute) Rhabdomyolysis (Acute) Rhabdomyolysis Cellulitis of both lower extremities Diabetes mellitus due to underlying condition, uncontrolled, with hyperglycemia, with long-term current use of insulin Major depressive disorder Cellulitis (Acute) Chronic venous insufficiency Venous ulcers of both lower extremities Stroke-like symptom Facial droop (Acute) Abdominal pain (Acute) Acute confusion (Acute) Hyperglycemia (Acute) Hyperkalemia Shortness of breath Paroxysmal atrial tachycardia Paroxysmal atrial fibrillation Methamphetamine abuse PAC (premature atrial contraction) Sinus tachycardia Atrial fibrillation with RVR Hypoxia (Acute) Hyperglycemia (Acute) Influenza A (Acute) Diabetic peripheral neuropathy (Acute) Diabetic neuropathic arthritis Abdominal wall cellulitis (Acute) Foot pain, left (Acute) Cellulitis of finger, right (Acute) Hyperglycemia (Acute) Burn of abdominal wall (Acute) Unable to care for self (Acute) Generalized muscle weakness (Acute) Ambulatory dysfunction (Acute) Noncompliance w/medication treatment due to intermit use of medication BPH (benign prostatic hyperplasia) Anxiety and depression Bronchitis Uncontrolled type 2 diabetes mellitus with hyperglycemia (Acute) Ambulatory dysfunction (Acute) Generalized weakness (Acute) Acute hyperglycemia (Acute) Morbid obesity with BMI of 40.0-44.9, adult Acute hyperglycemia (Acute) ALEJANDRA (obstructive sleep apnea) Hyperglycemia Nonischemic cardiomyopathy (Chronic) "prior EF 30% per Epic records. echo 02/2015- EF 40-45%" DM type 2 (diabetes mellitus, type 2) (Chronic) H/O TB (tuberculosis) (Chronic) H/O toxoplasmosis (Chronic) Hepatitis C (Chronic) Hypertension (Chronic) Colon polyp (Chronic) "TVA polyp on colonoscopy 09/2014" H/O colonoscopy (Chronic) "11/2015- diverticulosis" S/P cardiac cath (Chronic) "for abnormal stress test. cath 03/18/2015-essentially normal coronaries with no obstructive disease " Colon polyp Confusion (Acute) Hyperglycemia due to type 2 diabetes mellitus (Acute) DVT prophylaxis Polyneuropathy Peripheral vascular disease Depression Bilateral cellulitis of lower leg (Acute) Fatigue (Acute) Encephalopathy Hypercapnic respiratory failure Varicose veins of bilateral lower extremities with other complications Morbid obesity H/O drug abuse Medical History Closed head injury Peripheral neuropathy Acute dehydration Accidental fall tripped over dog bed, hit back of head, checked in the ED poss concussion Dysequilibrium Hepatitis C Diabetes mellitus, type 2 Depression Anxiety Hypertension Surgical History History of colonoscopy History of umbilical hernia repair x2 History of tooth extraction History of wisdom tooth extraction History of cardiac cath 03/2015 @ [facility], no stents follows with Dr. Monet Family History Mother Family history of diabetes mellitus Father Family history of diabetes mellitus Other No family history of adverse response to anesthesia Social History (Updated 06/27/25 @ 13:30 by Clemencia Thompson RN) Smoking Status: Never smoker Tobacco Type: Cigarettes Cigarettes Per Day: Says he occasionally will smoke a cigar.; Second Hand Exposure: No; Do You Dip or Chew Tobacco: No; Hx Alcohol Use: Yes Alcohol type: beer and hard liquor Alcohol Intake Frequency: Monthly or Less Hx Substance Use: Yes Non-Prescribed Medications: Methamphetamines Last Used Substance: Days (ago) Last Used Substance Other:: 7 days ago Substance Use Type Other:: MDMA, speed Preferred Language: Greenlandic Communication Ability: Effective Visual Impairment: Severely Limited Hearing Ability: Normal Electronic Resources Librarian Required: No Beliefs That Will Affect Care: None marital status: Single Current Living Situation: Alone Current Living Situation Comment: lives alone Feels Safe at Home: Yes Diet: regular caffeine: Yes Gender Identity: Male Assistive Devices: Cane, Glasses, Walker and Other Review of Systems Review of Systems: all noted and negative except for above Physical Exam Physical Exam: General- oriented x 3, not in distress, speaks in sentences with no effort or accessory muscle use Head- atraumatic Eyes- PERRL, EOMI, anicteric ENT- oropharynx clear Neck- supple, no JVD, no adenopathy, no thyromegaly; carotids +2/2, no bruits appreciated Lungs- clear to auscultation bilaterally, no rales/wheezes Heart- normal rate, regular rhythm; no murmur, no gallop, no rub appreciated Abdomen- normal bowel sounds, nondistended, soft, nontender, no masses or hepatosplenomegaly Extremities- BL lower extremities: mild edema, moderate erythema, superficial wounds, no active drainage L great toe wound, plantar aspect: healing well Neuro- alert, oriented x 3; CN 2-12 grossly intact; motor 5/5 bilaterally;sensation 100% on all extremities; no other gross focal neurologic deficits Skin- warm & dry Results & Data Results & Data Vital Signs (Past 12 Hours) Vital Signs Temp Pulse Resp BP Pulse Ox O2 Del Method 07/01/25 09:14 91 H 07/01/25 08:58 92 H 20 95 Room Air 07/01/25 08:13 36.4 C L 88 20 157/90 H 97 Room Air all noted and reviewed including below Code Status & VTE Plan VTE Prophylaxis Plan VTE Prophylaxis will be ordered: Yes
[2025-07-01] MEDS: ADVANCED PROBIOTIC 625 MG CAPSULE PO SCH (12:00)
[2025-07-01 12:08] LABS: Hemoglobin A1C 10.0 % (4.5-5.6)
--- NOTE | 2025-07-01 14:50 | Pharmacy Report ---
Pharmacy Glycemic Short Note 2 - Date of Service July 01, 2025 - Glycemic Short BSG Results (Last 24 hours): 07/01/25 07/01/25 07/01/25 09:02 10:42 11:54 Glucose 482 H* POC Glucose 444 H* 365 H* 07/01/25 07/01/25 14:18 14:19 Glucose POC Glucose 302 H* 330 H* OUTPATIENT ANTIDIABETIC REGIMEN: * Toujeo 100 units SQ BID * insulin aspart 60 units SQ with breakfast and supper and 20 units SQ with lunch * Jardiance 25mg PO daily * metformin ER 750mg po daily HbA1c: 10% on 07/01/25 ASSESSMENT: * Facundo is a 64 year old male who was admitted today for bilateral LE cellulitis/wounds. Pharmacy has been consulted for glycemic management while he is admitted * BSG on admit was 444mg/dL. Per patient, his last dose of Toujeo was last evening (dose unknown). He was given 10units of IV regular insulin in the ED and his lunch BSG was 365mg/dL. * Using data from his previous admission (just discharged 06/12), patient's own Toujeo was ordered to be used at 65units SQ daily starting today. (Of note: he has an allergy to Lantus). A bolus insulin regimen with the same parameters as his last admission was also started as it seemed to keep his blood sugars fairly under control PLAN FOR INPATIENT GLYCEMIC CONTROL: * Hold outpatient diabetes medications * Basal insulin * Patient's own Toujeo 65 units SQ daily * Bolus insulin * NovoLog per scale ACHS or Q6hrs while NPO * Goal Range: Low 120 mg/dL - High 150 mg/dL * Correction Factor: 30 mg/dL/unit * Nutritional / Prandial insulin per carb ratio of 1 unit per 4 grams CHO consumed
[2025-07-01] MEDS: INSULIN ASPART PER UNIT CHARGE SC SCH (15:39)
[2025-07-01] MEDS: TOUJEO SOLOSTAR SQ SCH (15:40)
[2025-07-01] MEDS: DAPTOmycin 600 MG in SYRINGE 0 ML IV SCH (15:54)
[2025-07-01] MEDS: CEFEPIME 2000MG 2,000 MG/20 ML SYR IV SCH (18:44)
[2025-07-01] MEDS: APIXABAN 5 MG TABLET PO SCH (20:37)
[2025-07-01] MEDS: ACETAMINOPHEN 325 MG TAB PO PRN (20:37)
[2025-07-01] MEDS: METOPROLOL SUCC 50MG EXT REL TAB PO SCH (20:38)
[2025-07-02] MEDS: INSULIN ASPART PER UNIT CHARGE SC SCH (00:09)
[2025-07-02 06:33] LABS: Hematocrit (blood only) 45.5 % (42.0-52.0); Hemoglobin 15.6 g/dl (14.0-18.0); Immature Granulocytes # (auto) 0.09 K/uL (0.01-0.20); Immature Granulocytes % (auto) 0.9 %; Mean Corpuscular Hemoglobin 29.2 pg (25.0-34.0); Mean Corpuscular Volume 85.0 fL (80.0-100.0); Platelet Count 266 K/uL (130-400); RDW Standard Deviation 42.4 fL (36.4-46.3); Red Blood Count 5.35 M/uL (4.70-6.10); White Blood Count 10.06 K/ul (4.8-10.8)
[2025-07-02 07:10] LABS: Alanine Aminotransferase 24.0 U/L (7-52); Albumin Globulin Ratio 1.1 (0.9-2); Albumin Level 3.2 gm/dl (3.4-5.0); Alkaline Phosphatase 79.0 U/L (34-104); Anion Gap 5.0 (3-11); Bilirubin,Total 0.7 mg/dl (0.2-1.0); Blood Urea Nitrogen 17.0 mg/dl (6-23); Calcium 8.8 mg/dl (8.6-10.3); Carbon Dioxide 28.0 mmol/L (21-32); Chloride 105.0 mmol/L (98-107); Creatinine Clr Calc Pharmacy 146.5 ml/min; Globulin 2.8 gm/dl (2.5-4.0); Glucose 203.0 mg/dl (70-99(Fasting)); Potassium 4.0 mmol/L (3.5-5.1); Sodium 138.0 mmol/L (136-145); Total Protein 6.0 gm/dl (6.0-8.3)
[2025-07-02] MEDS: ASCORBIC ACID 500 MG TAB PO SCH (08:15)
[2025-07-02] MEDS: CYANOCOBALAMIN (B-12) 500 MCG TABLET PO SCH (08:15)
[2025-07-02] MEDS: SERTRALINE HCL 100 MG TABLET PO SCH (08:16)
[2025-07-02] MEDS: TAMSULOSIN HCL 0.4 MG CAP PO SCH (08:16)
[2025-07-02] MEDS: CEROVITE ADV FORMULA TAB PO SCH (08:16)
[2025-07-02] MEDS: FLUTICASONE FUROATE 100MCG 14 PUFFS/INHALER INH SCH (08:16)
[2025-07-02 08:49] LABS: Creatine Kinase 24.0 U/L (30-223)
[2025-07-02] MEDS: ASPIRIN 81 MG CHEW PO SCH (09:29)
--- NOTE | 2025-07-02 10:32 | Urology Consultation ---
Date of Consultation July 02, 2025 Assessment & Plan (1) BPH (benign prostatic hyperplasia): 64-year-old male admitted for bilateral lower extremity cellulitis and wounds. Urology is consulted for urinary incontinence. Patient afebrile and hemodynamically stable Labs todaycreatinine 0.67, WBC 10.06, hemoglobin 15.6 PSA 0.374 on 07/01/2025 Urinalysis on arrival showed 2+ glucose, otherwise negative Regarding urinary incontinence, he reports that he is able to manage his symptoms with use of urinal at present, not currently bothersome to him Recommend continue tamsulosin Recommend check postvoid residual bladder scan to evaluate emptying If he has evidence of incomplete emptying or if dressings are unable to be kept dry, then recommend placement of [place] catheter Continue medical management per hospital medicine service Can arrange outpatient follow-up with urology, he has seen urology with [facility] in the past will sign off, please contact our service with any additional questions or concerns History of Present Illness Attending Physician: Nivia Sanchez MD History of Present Illness This is a 64-year-old male with past medical history of chronic diastolic heart failure, CAD, PAF on Eliquis, hypertension, hyperlipidemia, and type 2 diabetes who was admitted on 07/01/2025 for bilateral lower extremity cellulitis and wounds. He was recently seen in the wound clinic regarding his diabetic foot ulcers and bilateral venous ulcers. He presented to the ED due to worsening bilateral lower extremity pain and concern for urinary incontinence saturating his lower extremity dressings. Lab work showed WBC 8.02, hemoglobin 15.6, sodium 134, creatinine 0.65, glucose 482. ED course: Insulin, cefepime and vancomycin. He was admitted to the hospital medicine service for bilateral lower extremity cellulitis and bilateral lower leg wounds. Urology is consulted for urinary incontinence. Labs today reviewedcreatinine 0.67, WBC 10.06, hemoglobin 15.6, PSA 0.374. Patient seen and examined at bedside this morning. He is awake and resting comfortably in bed. He reports he saw urology in the past at [facility] in [place]. He was placed on tamsulosin. He continues to take tamsulosin. He reports some urinary frequency, urgency and incontinence at baseline. Reports nocturia. He feels like he empties his bladder well. He feels that he manages his symptoms well if he has a urinal/bottle. Denies bother at this time. No dysuria or hematuria. Allergies Allergy/AdvReac Type Severity Reaction Status Date / Time shellfish derived Allergy Severe Swelling Verified 07/01/25 09:44 amoxicillin Allergy Intermediate HIVES Verified 07/01/25 09:44 clavulanic acid Allergy Intermediate HIVES Verified 07/01/25 09:44 permethrin Allergy Intermediate swelling Verified 07/01/25 09:44 shrimp Allergy Intermediate SWELLS Verified 07/01/25 09:44 sulfamethoxazole Allergy Unknown CAN'T Verified 07/01/25 09:44 [From Bactrim] REMEMBER trimethoprim [From Bactrim] Allergy Unknown CAN'T Verified 07/01/25 09:44 REMEMBER insulin glargine AdvReac Severe CHF PER Verified 07/01/25 09:44 [From Lantus U-100 Insulin] [facility] Home Medications Medication Instructions Recorded Confirmed Type empagliflozin 25 mg tablet 25 mg PO QAM 08/01/22 07/01/25 History (Jardiance) ascorbic acid (vitamin C) 500 mg 1,000 mg PO DAILY 09/21/22 07/01/25 History tablet (Vitamin C) multivitamin with minerals 1 tab PO DAILY 09/21/22 07/01/25 History (Multiple Vitamin-Minerals tablet) lisinopril 20 mg tablet 20 mg PO DAILY 10/10/23 07/01/25 History sertraline 100 mg tablet 100 mg PO QAM 10/10/23 07/01/25 History insulin glargine U-300 conc 300 100 unit subcut BID 10/14/23 07/01/25 History unit/mL (3 mL) subcutaneous pen (Toujeo Max U-300 SoloStar) albuterol sulfate 90 mcg/actuation 90 mcg inhalation Q4H PRN Wheezing 06/06/24 07/01/25 History aerosol inhaler fluticasone furoate 100 100 mcg inhalation DAILY 08/05/24 07/01/25 History mcg/actuation blister powder for inhalation (Arnuity Ellipta) metoprolol succinate 50 mg 50 mg PO BID #60 tabs 12/13/24 07/01/25 Rx tablet,extended release 24 hr insulin aspart U-100 100 unit/mL 60 unit subcut TIDWMEAL 12/15/24 07/01/25 History (3 mL) subcutaneous pen nitroglycerin 0.4 mg sublingual 0.4 mg sublingual DIRECTED PRN 02/28/25 07/01/25 History tablet Chest Pain tamsulosin 0.4 mg capsule 0.4 mg PO QAM 02/28/25 07/01/25 History Bacillus coagulans-inulin 1 1 cap PO DAILY 03/02/25 07/01/25 History billion cell-250 mg capsule bupropion HCl 300 mg 24 hr tablet, 300 mg PO DAILY 03/02/25 07/01/25 History extended release cinnamon bark 500 mg capsule 500 mg PO DAILY ##0 03/02/25 07/01/25 History (Cinnamon) metformin 750 mg tablet,extended 750 mg PO DAILY #30 tabs 03/06/25 07/01/25 Rx release 24 hr L.acidop,casei,lactis,rham-B.lact,guanakito 1 cap PO DAILY #30 caps 03/09/25 07/01/25 Rx 625 mg (10 billion cell) capsule (Advanced Probiotic) furosemide 20 mg tablet (Lasix) 60 mg PO QAM 03/23/25 07/01/25 History spironolactone 25 mg tablet 25 mg PO DAILY 04/13/25 07/01/25 History apixaban 5 mg tablet (Eliquis) 5 mg PO BID #74 tabs 04/21/25 07/01/25 Rx aspirin 81 mg chewable tablet 81 mg PO DAILY 06/02/25 07/01/25 History cyanocobalamin (vitamin B-12) 1,000 mcg PO DAILY 06/27/25 07/01/25 History 1,000 mcg tablet,extended release (Vitamin B-12 ER) Patient History Medical History Closed head injury Peripheral neuropathy Acute dehydration Accidental fall tripped over dog bed, hit back of head, checked in the ED poss concussion Dysequilibrium Hepatitis C Diabetes mellitus, type 2 Depression Anxiety Hypertension Surgical History History of colonoscopy History of umbilical hernia repair x2 History of tooth extraction History of wisdom tooth extraction History of cardiac cath 03/2015 @ [facility], no stents follows with Dr. Moent Family History Mother Family history of diabetes mellitus Father Family history of diabetes mellitus Other No family history of adverse response to anesthesia Social History Smoking Status: Former smoker Tobacco Type: Cigarettes Cigarettes Per Day: Says he occasionally will smoke a cigar.; Second Hand Exposure: No; Do You Dip or Chew Tobacco: No; Hx Alcohol Use: Yes Alcohol type: beer, wine and hard liquor Alcohol Intake Frequency: Monthly or Less Hx Substance Use: Yes Non-Prescribed Medications: Methamphetamines Last Used Substance: Days (ago) Last Used Substance Other:: a couple weeks ago Substance Use Type Other:: MDMA, speed Preferred Language: Cymro Communication Ability: Effective Visual Impairment: Severely Limited Hearing Ability: Normal Shift Coordinator Required: No Beliefs That Will Affect Care: None marital status: Single Current Living Situation: Alone Current Living Situation Comment: lives alone Other Information That Helps Us Care for You: Yes (NO SHRIMP) Feels Safe at Home: Yes Diet: regular caffeine: Yes Gender Identity: Male Assistive Devices: Glasses and Walker Review of Systems Review of Systems: All systems reviewed & are unremarkable except as noted in HPI & below Physical Exam Constitutional: no acute distress Respiratory: normal respiratory effort; no respiratory distress and no labored breathing Gastrointestinal (Abdomen): Inspection/Auscultation: abdomen normal to inspection Musculoskeletal: Head/Neck/Chest: normocephalic Skin: bilateral lower extremities with dressings in place Neurologic: moves all extremities and awake Psychiatric: Orientation: alert and oriented x 3 Results & Data Vital Signs (Past 12 Hours) Vital Signs Temp Pulse Resp BP Pulse Ox O2 Del Method 07/02/25 08:00 36.4 C L 78 20 147/83 H 97 Room Air 07/02/25 04:20 36.5 C 75 18 103/67 95 Room Air 07/01/25 23:51 36.6 C 85 18 134/79 94 Room Air PG Care Time/CCT Total # of Minutes Spent Total Time Spent with Patient: Total time spent is greater than 50% in coordination of care (as documented) at patient's floor/unit and/or counseling patient: Coding Level of Care Code 31446 IN/OBS CONSULT LVL 4,60M Diagnoses BPH (benign prostatic hyperplasia) N40.0
--- NOTE | 2025-07-02 12:35 | Hospitalist Progress Note ---
Date of Service July 02, 2025 Assessment & Plan (1) Bilateral cellulitis of lower leg: (2) Open wound of both legs with complication: (3) Diabetes mellitus due to underlying condition, uncontrolled, with hyperglycemia, with long-term current use of insulin: Plan: 64 yo M w/ PMH of chronic diastolic heart failure (EF 60 to 65%, TTE 2024), nonobstructive CAD, PVD, PAF on Eliquis, hypertension, hyperlipidemia, HCV status post interferon Rx, DM 2 insulin requiring, history of toxoplasmosis chorioretinitis, TB, anxiety/mood disorder, substance abuse presents to the ED w/ co increasing discomfort and increasing redness over 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 Pt denied fever, dysuria, hematuria but reports urinary incontinence. He is being managed for the following: BILATERAL LOWER EXTREMITY CELLULITIS, RECURRENT BILATERAL LOWER LEG WOUNDS recently discharged Jun 12 from [facility] after being treated for BL lower extremity cellulitis and L great toe wound completed 2 week course of PO Linezolid and Levaquin follows with wound care center readmitted 07/01 due to worsening BL lower extremity pain, redness complicated by DM 2, urinary incontinence F/u admitting wound culture and wound culture. c/w Daptomycin 07/01 [admitting CPK 24, pt not on home statin] + Cefepime 07/01 ID consult, pending Wound care consult URINARY INCONTINENCE BPH affecting wound healing UA no signs of UTI, PSA level wnl. bladder scan q8h uro evaled, recs are tamsulosin, postvoid residual bladder scan to evaluate emptying [rn aware], if continued problem then asencio cath. f/u w/ uro as OP monitor patient while trying to use bedside urinal. RECENT BL GREAT TOE ULCER: healing well. monitor DM 2: hold Jardiance, Metformin. A1c this adm is 10 [improvement from prior]. ISS. Pharmacy Glycemic consult CHF, DIASTOLIC: euvolemic to dry. hold Lasix, Spironolactone. re-evaluate daily CAD, NONOBSTRUCTIVE- continue Metoprolol, , ASA PAROXYSMAL A FIB on eliquis PERIPHERAL VASCULAR DISEASE HTN ANXIETY/DEPRESSION SUBSTANCE ABUSE HISTORY OF HEP C S/P INTERFERON THERAPY DVT PROPHYLAXIS- on Eliquis FULL CODE as per patient DISPOSITION- admit to med/surg, pt/ot. Admission and Anticipated Discharge Date Admission Date: July 01, 2025 Subjective Patient was seen and examined at bedside. Patient was lying in bed, on room air, NAD, resting comfortably. Patient denies any fever/lower abdominal pain/pain or burning with passing urine. Patient reports BLE pain minimally better. Patient denies sore throat/cough/chest pain. Physical Exam Physical Exam: General- oriented x 3, not in distress, speaks in sentences with no effort or accessory muscle use Head- atraumatic Eyes- PERRL, EOMI, anicteric ENT- oropharynx clear Neck- supple, no JVD, no adenopathy, no thyromegaly; carotids +2/2, no bruits appreciated Lungs- clear to auscultation bilaterally, no rales/wheezes Heart- normal rate, regular rhythm; no murmur, no gallop, no rub appreciated Abdomen- normal bowel sounds, nondistended, soft, nontender, no masses or hepatosplenomegaly Extremities- BL lower extremities: mild edema, moderate erythema, superficial wounds, no active drainage L great toe wound, plantar aspect: healing well Neuro- alert, oriented x 3; CN 2-12 grossly intact; motor 5/5 bilaterally;sensation 100% on all extremities; no other gross focal neurologic deficits Skin- warm & dry Results & Data Results & Data Vital Signs (Past 12 Hours) Vital Signs Temp Pulse Resp BP Pulse Ox O2 Del Method 07/02/25 11:44 36.6 C 79 20 138/62 96 Room Air 07/02/25 08:00 36.4 C L 78 20 147/83 H 97 Room Air 07/02/25 04:20 36.5 C 75 18 103/67 95 Room Air
--- NOTE | 2025-07-02 14:03 | Infectious Disease Consult ---
Date of Service July 02, 2025 Telehealth Information I performed this visit using a real-time telehealth connection between my location and the patients location ([facility]). After connecting through interactive tele-video, patient was identified by name and date of and/or wristband check.Patient (or authorized healthcare aircraft sales representative) was informed that this was a telemedicine visit and it was being conducted confidentially over secure lines. My office door was closed and no one else was present in the room with me.Patient (or authorized healthcare aircraft sales representative) provided consent to proceed with the visit, expressed an understanding of privacy and security of the telemedicine visit, and gave permission to have a hospital aircraft sales representative in the room in order to assist with the visit and to conduct portions of the visit, as needed. I informed the patient (or authorized healthcare aircraft sales representative) that I reviewed their record and presented the opportunity for them to ask any questions regarding the visit today. The patient agreed to participate. Assessment & Plan (1) Open wound of both legs with complication: (2) Wound of left lower extremity: (3) Hyperglycemia due to diabetes mellitus: (4) Failure of outpatient treatment: (5) Diabetic foot ulcer: (6) Cellulitis: Plan Assessment: 64 yo M with PMHx of chronic diastolic heart failure (EF 60 to 65%, TTE 2024), nonobstructive CAD, PVD, PAF on Eliquis, hypertension, hyperlipidemia, HCV status post interferon Rx, DM 2 insulin requiring, history of toxoplasmosis chorioretinitis as per records, history of TB as per records, a nxiety/mood disorder, substance abuse who presented to [facility] on 07/01/2025 for b/l LE cellulitis. In the ED, pt had stable VS, noted lower extremities dressing saturated with urine. Cefepime administered. Pt's superficial wound culture (+) Serratia. Typically we would not follow a superficial culture but given that the dressing were saturated with urine, it seems appropriate. Plan: - Recommend stopping Daptomycin IV and continuing Cefepime IV alone for now. - recommend following up on Serratia susceptibility - we will not actively follow pt, if additional recommends are needed, please contact the ID physician for teledoc via tiger text or call. History of Present Illness History of Present Illness Reason for consult: BL LE Cellulitis, recurrent 64 yo M with PMHx of chronic diastolic heart failure (EF 60 to 65%, TTE 2024), nonobstructive CAD, PVD, PAF on Eliquis, hypertension, hyperlipidemia, HCV status post interferon Rx, DM 2 insulin requiring, history of toxoplasmosis chorioretinitis as per records, history of TB as per records, anxiety/mood disorder, substance abuse who presented to [facility] on 07/01/2025 for b/l LE cellulitis. Per notes and chart review, pt was admitted to [facility] last Jun 02 to Jun 12, 2025 for BL Lower extremity cellulitis and Great toe wounds. Pt was discharged on a 2 week course of Linezolid and Levaquin which he completed. Pt also follows with [facility] wound center with last visit on Jun 27. In the ED, pt had stable VS, noted lower extremities dressing saturated with urine. Cefepime administered. Pt's superficial wound culture (+) Serratia. ID consulted for evaluation and management. Allergies Allergy/AdvReac Type Severity Reaction Status Date / Time shellfish derived Allergy Severe Swelling Verified 07/01/25 09:44 amoxicillin Allergy Intermediate HIVES Verified 07/01/25 09:44 clavulanic acid Allergy Intermediate HIVES Verified 07/01/25 09:44 permethrin Allergy Intermediate swelling Verified 07/01/25 09:44 shrimp Allergy Intermediate SWELLS Verified 07/01/25 09:44 sulfamethoxazole Allergy Unknown CAN'T Verified 07/01/25 09:44 [From Bactrim] REMEMBER trimethoprim [From Bactrim] Allergy Unknown CAN'T Verified 07/01/25 09:44 REMEMBER insulin glargine AdvReac Severe CHF PER Verified 07/01/25 09:44 [From Lantus U-100 Insulin] ISING Home Medications Medication Instructions Recorded Confirmed Type empagliflozin 25 mg tablet 25 mg PO QAM 08/01/22 07/01/25 History (Jardiance) ascorbic acid (vitamin C) 500 mg 1,000 mg PO DAILY 09/21/22 07/01/25 History tablet (Vitamin C) multivitamin with minerals 1 tab PO DAILY 09/21/22 07/01/25 History (Multiple Vitamin-Minerals tablet) lisinopril 20 mg tablet 20 mg PO DAILY 10/10/23 07/01/25 History sertraline 100 mg tablet 100 mg PO QAM 10/10/23 07/01/25 History insulin glargine U-300 conc 300 100 unit subcut BID 10/14/23 07/01/25 History unit/mL (3 mL) subcutaneous pen (Toujeo Max U-300 SoloStar) albuterol sulfate 90 mcg/actuation 90 mcg inhalation Q4H PRN Wheezing 06/06/24 07/01/25 History aerosol inhaler fluticasone furoate 100 100 mcg inhalation DAILY 08/05/24 07/01/25 History mcg/actuation blister powder for inhalation (Arnuity Ellipta) metoprolol succinate 50 mg 50 mg PO BID #60 tabs 12/13/24 07/01/25 Rx tablet,extended release 24 hr insulin aspart U-100 100 unit/mL 60 unit subcut TIDWMEAL 12/15/24 07/01/25 History (3 mL) subcutaneous pen nitroglycerin 0.4 mg sublingual 0.4 mg sublingual DIRECTED PRN 02/28/25 07/01/25 History tablet Chest Pain tamsulosin 0.4 mg capsule 0.4 mg PO QAM 02/28/25 07/01/25 History Bacillus coagulans-inulin 1 1 cap PO DAILY 03/02/25 07/01/25 History billion cell-250 mg capsule bupropion HCl 300 mg 24 hr tablet, 300 mg PO DAILY 03/02/25 07/01/25 History extended release cinnamon bark 500 mg capsule 500 mg PO DAILY ##0 03/02/25 07/01/25 History (Cinnamon) metformin 750 mg tablet,extended 750 mg PO DAILY #30 tabs 03/06/25 07/01/25 Rx release 24 hr L.acidop,casei,lactis,rham-B.lact,guanakito 1 cap PO DAILY #30 caps 03/09/25 07/01/25 Rx 625 mg (10 billion cell) capsule (Advanced Probiotic) furosemide 20 mg tablet (Lasix) 60 mg PO QAM 03/23/25 07/01/25 History spironolactone 25 mg tablet 25 mg PO DAILY 04/13/25 07/01/25 History apixaban 5 mg tablet (Eliquis) 5 mg PO BID #74 tabs 04/21/25 07/01/25 Rx aspirin 81 mg chewable tablet 81 mg PO DAILY 06/02/25 07/01/25 History cyanocobalamin (vitamin B-12) 1,000 mcg PO DAILY 06/27/25 07/01/25 History 1,000 mcg tablet,extended release (Vitamin B-12 ER) Patient History Medical History Closed head injury Peripheral neuropathy Acute dehydration Accidental fall tripped over dog bed, hit back of head, checked in the ED poss concussion Dysequilibrium Hepatitis C Diabetes mellitus, type 2 Depression Anxiety Hypertension Surgical History History of colonoscopy History of umbilical hernia repair x2 History of tooth extraction History of wisdom tooth extraction History of cardiac cath 03/2015 @ [facility], no stents follows with Dr. Monet Family History Mother Family history of diabetes mellitus Father Family history of diabetes mellitus Other No family history of adverse response to anesthesia Social History Smoking Status: Former smoker Tobacco Type: Cigarettes Cigarettes Per Day: Says he occasionally will smoke a cigar.; Second Hand Exposure: No; Do You Dip or Chew Tobacco: No; Hx Alcohol Use: Yes Alcohol type: beer, wine and hard liquor Alcohol Intake Frequency: Monthly or Less Hx Substance Use: Yes Non-Prescribed Medications: Methamphetamines Last Used Substance: Days (ago) Last Used Substance Other:: a couple weeks ago Substance Use Type Other:: MDMA, speed Preferred Language: Nepali Communication Ability: Effective Visual Impairment: Severely Limited Hearing Ability: Normal Tobacco Drier Operator Required: No Beliefs That Will Affect Care: None marital status: Single Current Living Situation: Alone Current Living Situation Comment: lives alone Other Information That Helps Us Care for You: Yes (NO SHRIMP) Feels Safe at Home: Yes Diet: regular caffeine: Yes Gender Identity: Male Assistive Devices: Glasses and Walker Review of Systems ROS Physical Exam NA Results & Data Vital Signs (Past 12 Hours) Vital Signs Temp Pulse Resp BP Pulse Ox O2 Del Method 07/02/25 11:44 36.6 C 79 20 138/62 96 Room Air 07/02/25 08:30 Room Air 07/02/25 08:00 36.4 C L 78 20 147/83 H 97 Room Air 07/02/25 04:20 36.5 C 75 18 103/67 95 Room Air Laboratory Results Wound culture on 07/01/2025 Surface Wound Culture Preliminary 07/02/25-0843 Organism 1 Serratia marcescens Quantity Few Sens Sensitivities to Follow +MixWound Plus Low Counts of Probable Skin Roseline 07/01/25 09:09 Aerobic Blood Culture - Preliminary Blood No growth in Aerobic bottle after 24 hours. Anaerobic Blood Culture - Preliminary No growth in Anaerobic bottle after 24 hours. 07/01/25 09:02 Aerobic Blood Culture - Preliminary Blood No growth in Aerobic bottle after 24 hours. Anaerobic Blood Culture - Preliminary No growth in Anaerobic bottle after 24 hours. 07/01/25 14:06 Gram Stain - Final Leg,Right Wound Culture - Preliminary Serratia marcescens 07/02/25 07/02/25 07/02/25 12:03 12:02 12:02 WBC RBC Hgb Hct MCV MCH MCHC RDW Std Deviation RDW Coeff of Marc Plt Count MPV Immature Gran % (Auto) Neut % (Auto) Lymph % (Auto) Martin % (Auto) Eos % (Auto) Baso % (Auto) Neut # (Auto) Lymph # (Auto) Martin # (Auto) Eos # (Auto) Baso # (Auto) Immature Gran # (Auto) Sodium Potassium Chloride Carbon Dioxide Anion Gap BUN Creatinine Est Cr Clr Drug Dosing eGFR BUN/Creatinine Ratio Glucose POC Glucose 289 H 288 H 340 H* Calcium Total Bilirubin AST ALT Alkaline Phosphatase Total Creatine Kinase Total Protein Albumin Globulin Albumin/Globulin Ratio 07/02/25 07/02/25 07/02/25 07:55 05:32 04:02 WBC 10.06 RBC 5.35 Hgb 15.6 Hct 45.5 MCV 85.0 MCH 29.2 MCHC 34.3 RDW Std Deviation 42.4 RDW Coeff of Marc 13.6 Plt Count 266 MPV 9.4 Immature Gran % (Auto) 0.9 Neut % (Auto) 56.3 Lymph % (Auto) 30.9 Martin % (Auto) 7.1 Eos % (Auto) 3.9 Baso % (Auto) 0.9 Neut # (Auto) 5.67 Lymph # (Auto) 3.11 Martin # (Auto) 0.71 H Eos # (Auto) 0.39 Baso # (Auto) 0.09 Immature Gran # (Auto) 0.09 Sodium 138 Potassium 4.0 Chloride 105 Carbon Dioxide 28 Anion Gap 5 BUN 17 Creatinine 0.67 Est Cr Clr Drug Dosing 146.5 eGFR 105.57 BUN/Creatinine Ratio 25.4 H Glucose 203 H POC Glucose 208 H 176 H Calcium 8.8 Total Bilirubin 0.7 AST 28 ALT 24 Alkaline Phosphatase 79 Total Creatine Kinase 24 L Total Protein 6.0 Albumin 3.2 L Globulin 2.8 Albumin/Globulin Ratio 1.1 07/01/25 07/01/25 07/01/25 23:57 20:23 17:24 WBC RBC Hgb Hct MCV MCH MCHC RDW Std Deviation RDW Coeff of Marc Plt Count MPV Immature Gran % (Auto) Neut % (Auto) Lymph % (Auto) Martin % (Auto) Eos % (Auto) Baso % (Auto) Neut # (Auto) Lymph # (Auto) Martin # (Auto) Eos # (Auto) Baso # (Auto) Immature Gran # (Auto) Sodium Potassium Chloride Carbon Dioxide Anion Gap BUN Creatinine Est Cr Clr Drug Dosing eGFR BUN/Creatinine Ratio Glucose POC Glucose 187 H 166 H 364 H* Calcium Total Bilirubin AST ALT Alkaline Phosphatase Total Creatine Kinase Total Protein Albumin Globulin Albumin/Globulin Ratio 07/01/25 07/01/25 07/01/25 17:22 14:19 14:18 WBC RBC Hgb Hct MCV MCH MCHC RDW Std Deviation RDW Coeff of Marc Plt Count MPV Immature Gran % (Auto) Neut % (Auto) Lymph % (Auto) Martin % (Auto) Eos % (Auto) Baso % (Auto) Neut # (Auto) Lymph # (Auto) Martin # (Auto) Eos # (Auto) Baso # (Auto) Immature Gran # (Auto) Sodium Potassium Chloride Carbon Dioxide Anion Gap BUN Creatinine Est Cr Clr Drug Dosing eGFR BUN/Creatinine Ratio Glucose POC Glucose 385 H* 330 H* 302 H* Calcium Total Bilirubin AST ALT Alkaline Phosphatase Total Creatine Kinase Total Protein Albumin Globulin Albumin/Globulin Ratio Medications Administered Home Medications Medication Instructions Recorded Confirmed Last Taken empagliflozin 25 mg tablet 25 mg PO QA 08/01/22 07/01/25 06/01/25 (Jardiance) ascorbic acid (vitamin C) 500 mg 1,000 mg PO DAILY 09/21/22 07/01/25 06/01/25 tablet (Vitamin C) multivitamin with minerals 1 tab PO DAILY 09/21/22 07/01/25 06/01/25 (Multiple Vitamin-Minerals tablet) lisinopril 20 mg tablet 20 mg PO DAILY 10/10/23 07/01/25 06/01/25 sertraline 100 mg tablet 100 mg PO QAM 10/10/23 07/01/25 06/01/25 insulin glargine U-300 conc 300 100 unit subcut BID 10/14/23 07/01/25 06/01/25 unit/mL (3 mL) subcutaneous pen (Toujeo Max U-300 SoloStar) albuterol sulfate 90 mcg/actuation 90 mcg inhalation Q4H PRN Wheezing 06/06/24 07/01/25 06/01/25 aerosol inhaler fluticasone furoate 100 100 mcg inhalation DAILY 08/05/24 07/01/25 06/01/25 mcg/actuation blister powder for inhalation (Arnuity Ellipta) metoprolol succinate 50 mg 50 mg PO BID #60 tabs 12/13/24 07/01/25 06/01/25 tablet,extended release 24 hr insulin aspart U-100 100 unit/mL 60 unit subcut TIDWMEAL 12/15/24 07/01/25 06/01/25 (3 mL) subcutaneous pen nitroglycerin 0.4 mg sublingual 0.4 mg sublingual DIRECTED PRN 02/28/25 07/01/25 Unknown tablet Chest Pain tamsulosin 0.4 mg capsule 0.4 mg PO QAM 02/28/25 07/01/25 06/01/25 Bacillus coagulans-inulin 1 1 cap PO DAILY 03/02/25 07/01/25 06/01/25 billion cell-250 mg capsule bupropion HCl 300 mg 24 hr tablet, 300 mg PO DAILY 03/02/25 07/01/25 06/01/25 extended release cinnamon bark 500 mg capsule 500 mg PO DAILY ##0 03/02/25 07/01/25 06/01/25 (Cinnamon) metformin 750 mg tablet,extended 750 mg PO DAILY #30 tabs 03/06/25 07/01/25 06/01/25 release 24 hr L.acidop,casei,lactis,rham-B.lact,guanakito 1 cap PO DAILY #30 caps 03/09/25 07/01/25 06/01/25 625 mg (10 billion cell) capsule (Advanced Probiotic) furosemide 20 mg tablet (Lasix) 60 mg PO QAM 03/23/25 07/01/25 06/01/25 spironolactone 25 mg tablet 25 mg PO DAILY 04/13/25 07/01/25 06/01/25 apixaban 5 mg tablet (Eliquis) 5 mg PO BID #74 tabs 04/21/25 07/01/25 06/01/25 aspirin 81 mg chewable tablet 81 mg PO DAILY 06/02/25 07/01/25 06/01/25 cyanocobalamin (vitamin B-12) 1,000 mcg PO DAILY 06/27/25 07/01/25 Unknown 1,000 mcg tablet,extended release (Vitamin B-12 ER) Active Medications Generic Name Dose Route Start Last Admin Trade Name Freq PRN Reason Stop Dose Admin Acetaminophen 650 mg 07/01/25 13:35 07/02/25 09:29 Acetaminophen 325 Mg Tab PO 07/31/25 13:34 650 mg Q4H PRN Administration Pain or Fever Apixaban 5 mg 07/01/25 21:00 07/02/25 08:15 Apixaban 5 Mg Tablet PO 07/31/25 20:59 5 mg BID MULU Administration Ascorbic Acid 1,000 mg 07/02/25 09:00 07/02/25 08:15 Ascorbic Acid 500 Mg Tab PO 08/01/25 08:59 1,000 mg DAILY MULU Administration Aspirin 81 mg 07/02/25 09:00 07/02/25 09:29 Aspirin 81 Mg Chew PO 08/01/25 08:59 81 mg DAILY MULU Administration Bupropion HCl 300 mg 07/02/25 09:00 07/02/25 08:15 Bupropion Xl 300 Mg Tabcr PO 08/01/25 08:59 300 mg DAILY MULU Administration Cyanocobalamin 1,000 mcg 07/02/25 09:00 07/02/25 08:15 Cyanocobalamin (B-12) 500 Mcg Tablet PO 08/01/25 08:59 1,000 mcg DAILY MULU Administration Fluticasone Furoate 1 puffs 07/02/25 09:00 07/02/25 08:16 Fluticasone Furoate 100mcg 14 Puffs/Inhaler INH 08/01/25 08:59 1 puffs DAILY MULU Administration Daptomycin 600 mg/ Syringe 12 mls @ 6 mls/min 07/01/25 11:30 07/01/25 15:54 IV 07/08/25 11:29 6 mls/min Q24H MULU Administration Protocol Cefepime HCl 2,000 mg in 20 mls @ 5 mls/min 07/01/25 19:00 07/02/25 11:21 Maxipime 2000mg IV 07/08/25 18:59 5 mls/min Q8H MULU Administration Protocol Insulin Aspart 0 units 07/01/25 11:30 07/02/25 13:40 Insulin Aspart Per Unit Charge SC 07/31/25 11:29 17 units ACHS MULU Administration Insulin Glargine 0 units 07/01/25 15:00 07/02/25 09:30 Toujessicamateo Dominiquerosendoar SQ 07/31/25 14:59 64 units QAM MULU Administration Protocol Lactobacillus Acidophilus 1,250 mg 07/01/25 12:00 07/02/25 08:16 Advanced Probiotic 625 Mg Capsule PO 07/31/25 11:59 1,250 mg DAILY MULU Administration Lisinopril 20 mg 07/02/25 09:00 07/02/25 08:16 Lisinopril 20 Mg Tab PO 08/01/25 08:59 20 mg DAILY MULU Administration Metoprolol Succinate 50 mg 07/01/25 21:00 07/02/25 08:16 Metoprolol Succ 50mg Ext Rel Tab PO 07/31/25 20:59 50 mg BID MULU Administration Multivitamins/Minerals 1 tab 07/02/25 09:00 07/02/25 08:16 Cerovite Adv Formula Tab PO 08/01/25 08:59 1 tab DAILY MULU Administration Sertraline HCl 100 mg 07/02/25 09:00 07/02/25 08:16 Sertraline Hcl 100 Mg Tablet PO 08/01/25 08:59 100 mg QAM MULU Administration Tamsulosin HCl 0.4 mg 07/02/25 09:00 07/02/25 08:16 Tamsulosin Hcl 0.4 Mg Cap PO 08/01/25 08:59 0.4 mg QAM MULU Administration
--- NOTE | 2025-07-02 14:36 | Pharmacy Report ---
Pharmacy Glycemic Short Note 2 - Date of Service July 02, 2025 - Glycemic Short BSG Results (Last 24 hours): 07/01/25 07/01/25 07/01/25 17:22 17:24 20:23 Glucose POC Glucose 385 H* 364 H* 166 H 07/01/25 07/02/25 07/02/25 23:57 04:02 05:32 Glucose 203 H POC Glucose 187 H 176 H 07/02/25 07/02/25 07/02/25 07:55 12:02 12:02 Glucose POC Glucose 208 H 340 H* 288 H 07/02/25 12:03 Glucose POC Glucose 289 H OUTPATIENT ANTIDIABETIC REGIMEN: * Toujeo 100 units SQ BID * insulin aspart 60 units SQ with breakfast and supper and 20 units SQ with lunch * Jardiance 25mg PO daily * metformin ER 750mg po daily HbA1c: 10% on 07/01/25 ASSESSMENT: 07/02: * Facundo received a total of 112 units of insulin yesterday (64 units were basal and 48 units were bolus). * Fasting BSG was 208mg/dL this morning and kuldeep to 289mg/dL at lunch. The correction factor was tightened and overnight checks were added again for tonight to ensure that his BSG does not continue to rise through the night. * If BSG remains elevated into the evening/tomorrow morning will consider adding an HS dose of Toujeo tomorrow. 07/01: * Facundo is a 64 year old male who was admitted today for bilateral LE cellulitis/wounds. Pharmacy has been consulted for glycemic management while he is admitted * BSG on admit was 444mg/dL. Per patient, his last dose of Toujeo was last evening (dose unknown). He was given 10units of IV regular insulin in the ED and his lunch BSG was 365mg/dL. * Using data from his previous admission (just discharged 06/12), patient's own Toujeo was ordered to be used at 65units SQ daily starting today. (Of note: he has an allergy to Lantus). A bolus insulin regimen with the same parameters as his last admission was also started as it seemed to keep his blood sugars fairly under control PLAN FOR INPATIENT GLYCEMIC CONTROL: * Hold outpatient diabetes medications * Basal insulin * Patient's own Toujeo 64 units SQ daily * Bolus insulin * NovoLog per scale ACHS or Q6hrs while NPO * Goal Range: Low 120 mg/dL - High 150 mg/dL * Correction Factor: 25 mg/dL/unit * Nutritional / Prandial insulin per carb ratio of 1 unit per 4 grams CHO consumed
--- NOTE | 2025-07-02 18:28 | Emergency Department Note ---
ED Visit Note I was consulted by the Advanced Practice Provider, Ty Tavarez. I performed a substantive portion of the visit. This includes aspects of: History/MDM: This is a 64-year-old male with extensive comorbidities presenting for lower extremity pain and urinary incontinence. Has lower extremity wounds that have dressings that were saturated with urine. Noted to have cellulitic changes. Patient was treated with IV antibiotics. Complicated by significant hyperglycemia that was controlled in the emergency department. Patient benefit from inpatient stay for wound care and IV antibiotics. Bautista Dai DO Emergency Medicine .
[2025-07-02] MEDS: MICONAZOLE NITRATE POWDER 85 GM EXT PRN (18:45)
[2025-07-03] MEDS: INSULIN ASPART PER UNIT CHARGE SC SCH (00:28)
[2025-07-03 06:57] LABS: Hematocrit (blood only) 47.4 % (42.0-52.0); Hemoglobin 15.7 g/dl (14.0-18.0); Mean Corpuscular Hemoglobin 28.3 pg (25.0-34.0); Mean Corpuscular Volume 85.6 fL (80.0-100.0); Platelet Count 257 K/uL (130-400); RDW Standard Deviation 42.3 fL (36.4-46.3); Red Blood Count 5.54 M/uL (4.70-6.10); White Blood Count 10.09 K/ul (4.8-10.8)
[2025-07-03 07:58] LABS: Anion Gap 6.0 (3-11); Calcium 8.7 mg/dl (8.6-10.3); Carbon Dioxide 25.0 mmol/L (21-32); Chloride 106.0 mmol/L (98-107); Magnesium 2.0 mg/dl (1.7-2.4); Potassium 4.5 mmol/L (3.5-5.1); Sodium 137.0 mmol/L (136-145)
[2025-07-03 08:03] LABS: Blood Urea Nitrogen 20.0 mg/dl (6-23); Creatinine Clr Calc Pharmacy 175.5 ml/min; Glucose 179.0 mg/dl (70-99(Fasting))
[2025-07-03] MEDS: TOUJEO SOLOSTAR SQ SCH (09:09)
--- NOTE | 2025-07-03 14:18 | Hospitalist Progress Note ---
Date of Service July 03, 2025 Assessment & Plan (1) Bilateral cellulitis of lower leg: (2) Open wound of both legs with complication: (3) Diabetes mellitus due to underlying condition, uncontrolled, with hyperglycemia, with long-term current use of insulin: Plan: 64 yo M w/ PMH of chronic diastolic heart failure (EF 60 to 65%, TTE 2024), nonobstructive CAD, PVD, PAF on Eliquis, hypertension, hyperlipidemia, HCV status post interferon Rx, DM 2 insulin requiring, history of toxoplasmosis chorioretinitis, TB, anxiety/mood disorder, substance abuse presents to the ED w/ co increasing discomfort and increasing redness over his BL lower legs for the past few days [employer]. Pt denied fever, dysuria, hematuria but reports urinary incontinence. He is being managed for the following: BILATERAL LOWER EXTREMITY CELLULITIS, RECURRENT BILATERAL LOWER LEG WOUNDS recently discharged Jun 12 from [facility] after being treated for BL lower extremity cellulitis and L great toe wound completed 2 week course of PO Linezolid and Levaquin follows with wound care center readmitted 07/01 due to worsening BL lower extremity pain, redness complicated by DM 2, urinary incontinence F/u admitting wound culture and wound culture. DC Dapto and cefepime, wound Cx growing serratia. Levaquin started. ID evaled, apperciate recs. Wound care consult URINARY INCONTINENCE BPH affecting wound healing UA no signs of UTI, PSA level wnl. bladder scan q8h uro evaled, recs are tamsulosin, postvoid residual bladder scan to evaluate emptying [rn aware], if continued problem then asencio cath. f/u w/ uro as OP monitor patient while trying to use bedside urinal. RECENT BL GREAT TOE ULCER: healing well. monitor DM 2: hold Jardiance, Metformin. A1c this adm is 10 [improvement from prior]. ISS. Pharmacy Glycemic consult CHF, DIASTOLIC: euvolemic to dry. hold Lasix, Spironolactone. re-evaluate daily CAD, NONOBSTRUCTIVE- continue Metoprolol, , ASA PAROXYSMAL A FIB on eliquis PERIPHERAL VASCULAR DISEASE HTN ANXIETY/DEPRESSION SUBSTANCE ABUSE HISTORY OF HEP C S/P INTERFERON THERAPY DVT PROPHYLAXIS- on Eliquis FULL CODE as per patient DISPOSITION- admit to med/surg, pt/ot. Admission and Anticipated Discharge Date Admission Date: July 01, 2025 Subjective Patient was seen and examined at bedside. Patient was lying in bed, on room air, NAD, resting comfortably. Patient denies any fever/lower abdominal pain/pain or burning with passing urine. Patient reports BLE pain getting better. Patient denies sore throat/cough/chest pain. Physical Exam Physical Exam: General- oriented x 3, not in distress, speaks in sentences with no effort or accessory muscle use Head- atraumatic Eyes- PERRL, EOMI, anicteric ENT- oropharynx clear Neck- supple, no JVD, no adenopathy, no thyromegaly; carotids +2/2, no bruits appreciated Lungs- clear to auscultation bilaterally, no rales/wheezes Heart- normal rate, regular rhythm; no murmur, no gallop, no rub appreciated Abdomen- normal bowel sounds, nondistended, soft, nontender, no masses or hepatosplenomegaly Extremities- BL lower extremities: mild edema, moderate erythema, superficial wounds, no active drainage L great toe wound, plantar aspect: healing well Neuro- alert, oriented x 3; CN 2-12 grossly intact; motor 5/5 bilaterally;sensation 100% on all extremities; no other gross focal neurologic deficits Skin- warm & dry Results & Data Results & Data Vital Signs (Past 12 Hours) Vital Signs Temp Pulse Pulse Resp BP BP Pulse Ox 07/03/25 13:43 66 07/03/25 09:40 07/03/25 07:41 36.7 C 71 16 113/67 95 07/03/25 07:20 65 07/03/25 03:08 36.6 C 75 18 105/69 93 O2 Del Method 07/03/25 13:43 07/03/25 09:40 Room Air 07/03/25 07:41 Room Air 07/03/25 07:20 07/03/25 03:08 Room Air
--- NOTE | 2025-07-03 14:45 | Pharmacy Report ---
Pharmacy Glycemic Short Note 2 - Date of Service July 03, 2025 - Glycemic Short BSG Results (Last 24 hours): 07/02/25 07/02/25 07/03/25 17:14 20:10 00:21 Glucose POC Glucose 148 H 257 H 151 H 07/03/25 07/03/25 07/03/25 03:05 06:21 07:58 Glucose 179 H POC Glucose 153 H 187 H 07/03/25 11:56 Glucose POC Glucose 250 H OUTPATIENT ANTIDIABETIC REGIMEN: * Toujeo 100 units SQ BID * insulin aspart 60 units SQ with breakfast and supper and 20 units SQ with lunch * Jardiance 25mg PO daily * metformin ER 750mg po daily HbA1c: 10% on 07/01/25 ASSESSMENT: 07/03: * Facundo received a total of 111 units of insulin yesterday (64 units were basal and 47 units were bolus) * Fasting BSG was 187mg/dL this morning. The Toujeo dose was increased ~10%. Will not add an HS dose of Toujeo yet * Bolus insulin regimen to continue without change 07/02: * Facundo received a total of 112 units of insulin yesterday (64 units were basal and 48 units were bolus). * Fasting BSG was 208mg/dL this morning and kuldeep to 289mg/dL at lunch. The correction factor was tightened and overnight checks were added again for tonight to ensure that his BSG does not continue to rise through the night. * If BSG remains elevated into the evening/tomorrow morning will consider adding an HS dose of Toujeo tomorrow. 07/01: * Facundo is a 64 year old male who was admitted today for bilateral LE cellulitis/wounds. Pharmacy has been consulted for glycemic management while he is admitted * BSG on admit was 444mg/dL. Per patient, his last dose of Toujeo was last evening (dose unknown). He was given 10units of IV regular insulin in the ED and his lunch BSG was 365mg/dL. * Using data from his previous admission (just discharged 06/12), patient's own Toujeo was ordered to be used at 65units SQ daily starting today. (Of note: he has an allergy to Lantus). A bolus insulin regimen with the same parameters as his last admission was also started as it seemed to keep his blood sugars fairly under control PLAN FOR INPATIENT GLYCEMIC CONTROL: * Hold outpatient diabetes medications * Basal insulin * Patient's own Toujeo 70 units SQ daily * Bolus insulin * NovoLog per scale ACHS or Q6hrs while NPO * Goal Range: Low 120 mg/dL - High 150 mg/dL * Correction Factor: 25 mg/dL/unit * Nutritional / Prandial insulin per carb ratio of 1 unit per 4 grams CHO consumed
[2025-07-04] MEDS: INSULIN HUMAN NPH SC SCH ×2 (11:37→18:11)
--- NOTE | 2025-07-04 12:37 | Pharmacy Report ---
Pharmacy Glycemic Short Note 2 - Date of Service July 04, 2025 - Glycemic Short BSG Results (Last 24 hours): 07/03/25 07/03/25 07/04/25 17:24 20:11 08:01 POC Glucose 193 H 191 H 185 H 07/04/25 12:01 POC Glucose 179 H OUTPATIENT ANTIDIABETIC REGIMEN: * Toujeo 100 units SQ BID * insulin aspart 60 units SQ with breakfast and supper and 20 units SQ with lunch * Jardiance 25mg PO daily * metformin ER 750mg po daily HbA1c: 10% on 07/01/25 ASSESSMENT: 07/04: * Facundo received 126 units of insulin yesterday (70 were basal) * Fasting BSG this AM slightly elevated, plan to increase Toujeo by ~15%. However was informed by RN this AM that patient's Toujeo pen did not have enough insulin for this mornings dose. Will revert back to insulin NPH for basal insulin as we have done on previous admissions. Typically only requires 60-80 units of insulin while using NPH in the hospital, dosing based on prior regimens. * Carbohydrate ratio was tightened slightly this AM, however will loosen with the prandial coverage added with switching to NPH. Slightly tighten correction factor as well as BSGs all above goal range yesterday. 07/03: * Facundo received a total of 111 units of insulin yesterday (64 units were basal and 47 units were bolus) * Fasting BSG was 187mg/dL this morning. The Toujeo dose was increased ~10%. Will not add an HS dose of Toujeo yet * Bolus insulin regimen to continue without change 07/02: * Facundo received a total of 112 units of insulin yesterday (64 units were basal and 48 units were bolus). * Fasting BSG was 208mg/dL this morning and kuldeep to 289mg/dL at lunch. The cor rection factor was tightened and overnight checks were added again for tonight to ensure that his BSG does not continue to rise through the night. * If BSG remains elevated into the evening/tomorrow morning will consider adding an HS dose of Toujeo tomorrow. 07/01: * Facundo is a 64 year old male who was admitted today for bilateral LE cellulitis/wounds. Pharmacy has been consulted for glycemic management while he is admitted * BSG on admit was 444mg/dL. Per patient, his last dose of Toujeo was last evening (dose unknown). He was given 10units of IV regular insulin in the ED and his lunch BSG was 365mg/dL. * Using data from his previous admission (just discharged 06/12), patient's own Toujeo was ordered to be used at 65units SQ daily starting today. (Of note: he has an allergy to Lantus). A bolus insulin regimen with the same parameters as his last admission was also started as it seemed to keep his blood sugars fairly under control PLAN FOR INPATIENT GLYCEMIC CONTROL: * Hold outpatient diabetes medications * Basal insulin * Insulin NPH 25 units SQ QDB * Insulin NPH 0-15 units SQ QDD * Bolus insulin * NovoLog per scale ACHS or Q6hrs while NPO * Goal Range: Low 120 mg/dL - High 150 mg/dL * Correction Factor: 20 mg/dL/unit * Nutritional / Prandial insulin per carb ratio of 1 unit per 4 grams CHO consumed
--- NOTE | 2025-07-04 13:26 | Hospitalist Progress Note ---
Date of Service July 04, 2025 Assessment & Plan (1) Bilateral cellulitis of lower leg: (2) Open wound of both legs with complication: (3) Diabetes mellitus due to underlying condition, uncontrolled, with hyperglycemia, with long-term current use of insulin: Plan: 64 yo M w/ PMH of chronic diastolic heart failure (EF 60 to 65%, TTE 2024), nonobstructive CAD, PVD, PAF on Eliquis, hypertension, hyperlipidemia, HCV status post interferon Rx, DM 2 insulin requiring, history of toxoplasmosis chorioretinitis, TB, anxiety/mood disorder, substance abuse presents to the ED w/ co increasing discomfort and increasing redness over his BL lower legs for the past few days [employer]. Pt denied fever, dysuria, hematuria but reports urinary incontinence. He is being managed for the following: BILATERAL LOWER EXTREMITY CELLULITIS, RECURRENT BILATERAL LOWER LEG WOUNDS Recently discharged Jun 12 from [facility] after being treated for BL lower extremity cellulitis and L great toe wound Completed 2 week course of PO Linezolid and Levaquin Follows with wound care center Readmitted 07/01 due to worsening BL lower extremity pain, redness Complicated by DM 2, urinary incontinence DC Dapto and cefepime, wound Cx growing serratia. Levaquin started. Appreciate ID input and recommendationWill continue oral Levaquin for a total of 14 days Appreciate wound care input and recommendation Strongly advised to keep the wound clean and dry on discharge and follow instruction about dressing Will need to have outpatient wound care follow-up appointment on discharge He has been complaining of more pain in the legs and will not be discharged home today URINARY INCONTINENCE BPH affecting wound healing UA no signs of UTI, PSA level wnl. Bladder scan q8h Urology evaluated, recs are tamsulosin, postvoid residual bladder scan to evaluate emptying [rn aware], if continued problem then asencio cath. F/U current [employer] w/ uro as OP RECENT BL GREAT TOE ULCER: healing well. monitor DM 2: hold Jardiance, Metformin. A1c this adm is 10 [improvement from prior]. ISS. Pharmacy Glycemic consult CHF, DIASTOLIC: euvolemic to dry. hold Lasix, Spironolactone. re-evaluate daily Other significant medical conditions remained stable as below: CAD, NONOBSTRUCTIVE- continue Metoprolol, , ASA PAROXYSMAL A FIB on eliquis PERIPHERAL VASCULAR DISEASE HTN ANXIETY/DEPRESSION SUBSTANCE ABUSE HISTORY OF HEP C S/P INTERFERON THERAPY DVT PROPHYLAXIS- on Eliquis FULL CODE as per patient DISPOSITION- admit to med/surg, pt/ot. Likely discharge in a day or 2 Admission and Anticipated Discharge Date Admission Date: July 01, 2025 Subjective The patient was seen and examined in medical telemetry unit He has been complaining of pain in the legs mostly in the right Denies any other significant symptoms Has been participating in physical therapy with difficulties and does not want to go home today Review of Systems Review of Systems: All systems reviewed and are unremarkable except as noted below Physical Exam Physical Exam: Lying in bed with some leg pain on the right side mainly Constitutional: well developed, well nourished, + ill appearing and + obese Eyes: PERRL, conjunctivae normal, anicteric sclerae ENMT: external ear and nose normal, oropharynx normal Neck: trachea midline, no thyromegaly Respiratory: no respiratory distress Auscultation: lungs clear to auscultation bilaterally Cardiovascular: Rate/Rhythm: regular rate and regular rhythm; not tachycardic Heart Sounds: normal S1 and normal S2; no murmur Extremities: no edema Gastrointestinal (Abdomen): Inspection/Auscultation: normal bowel sounds; abdomen not distended Percussion/Palpation: abdomen soft; abdomen nontender Musculoskeletal: No acute arthritis involving any of the joint Skin: Bilateral legs wound as in the picture-no redness and the lower legs Neurologic: normal touch/pain/proprioception and moves all extremities; no focal motor deficits Lymphatic: no cervical or axillary lymphadenopathy Results & Data Results & Data Vital Signs (Past 12 Hours) Vital Signs Temp Pulse Pulse Resp BP BP Pulse Ox 07/04/25 11:11 36.4 C L 63 16 114/78 97 07/04/25 07:38 36.4 C L 68 17 125/77 96 07/04/25 07:08 67 07/04/25 03:28 36.9 C 64 16 109/55 L 95 O2 Del Method 07/04/25 11:11 Room Air 07/04/25 07:38 Room Air 07/04/25 07:08 07/04/25 03:28 Room Air Medications Administered Current Inpatient Medications Acetaminophen (Acetaminophen 325 Mg Tab) 650 mg PO Q4H PRN PRN Reason: Pain or Fever Stop: 07/31/25 13:34 Last Admin: 07/02/25 09:29 Dose: 650 mg Apixaban (Apixaban 5 Mg Tablet) 5 mg PO BID MULU Stop: 07/31/25 20:59 Last Admin: 07/04/25 09:15 Dose: 5 mg Ascorbic Acid (Ascorbic Acid 500 Mg Tab) 1,000 mg PO DAILY MULU Stop: 08/01/25 08:59 Last Admin: 07/04/25 09:15 Dose: 1,000 mg Aspirin (Aspirin 81 Mg Chew) 81 mg PO DAILY MULU Stop: 08/01/25 08:59 Last Admin: 07/04/25 09:13 Dose: 81 mg Bupropion HCl (Bupropion Xl 300 Mg Tabcr) 300 mg PO DAILY MULU Stop: 08/01/25 08:59 Last Admin: 07/04/25 09:15 Dose: 300 mg Cyanocobalamin (Cyanocobalamin (B-12) 500 Mcg Tablet) 1,000 mcg PO DAILY MULU Stop: 08/01/25 08:59 Last Admin: 07/04/25 09:14 Dose: 1,000 mcg Dextrose (Dextrose 50% 50 Ml Syringe) 25 - 50 ml IV UD PRN; Protocol PRN Reason: Hypoglycemia Protocol Stop: 07/31/25 11:27 Fluticasone Furoate (Fluticasone Furoate 100mcg 14 Puffs/Inhaler) 1 puffs INH DAILY MULU Stop: 08/01/25 08:59 Last Admin: 07/04/25 09:14 Dose: 1 puffs Glucagon (Glucagon For Inj 1 Mg Vial) 1 mg SQ UD PRN; Protocol PRN Reason: Hypoglycemia Protocol Stop: 07/31/25 11:27 Glucose (Glucose 40% Gel 15 Gm Tube) 15 - 30 gm PO UD PRN; Protocol PRN Reason: Hypoglycemia Protocol Stop: 07/31/25 11:27 Glucose (Glucose 10 Tab/Tube) 4 - 8 tab PO UD PRN; Protocol PRN Reason: Hypoglycemia Protocol Stop: 07/31/25 11:27 Insulin Aspart (Insulin Aspart Per Unit Charge) 0 units SC ACHS [facility] Stop: 07/31/25 11:29 Last Admin: 07/04/25 13:14 Dose: 18 units Insulin Human NPH (Insulin Human Nph) 25 units SC QDB MULU Stop: 08/03/25 11:29 Last Admin: 07/04/25 11:37 Dose: 25 units Insulin Human NPH (Insulin Human Nph) 0 units SC QDD [facility]; Protocol Stop: 08/03/25 16:29 Lactobacillus Acidophilus (Advanced Probiotic 625 Mg Capsule) 1,250 mg PO DAILY [facility] Stop: 07/31/25 11:59 Last Admin: 07/04/25 09:15 Dose: 1,250 mg Levofloxacin (Levofloxacin 750 Mg Tab) 750 mg PO QAM [facility] Stop: 07/10/25 08:59 Last Admin: 07/04/25 09:14 Dose: 750 mg Lisinopril (Lisinopril 20 Mg Tab) 20 mg PO DAILY [facility] Stop: 08/01/25 08:59 Last Admin: 07/04/25 09:15 Dose: 20 mg Metoprolol Succinate (Metoprolol Succ 50mg Ext Rel Tab) 50 mg PO BID [facility] Stop: 07/31/25 20:59 Last Admin: 07/04/25 09:15 Dose: 50 mg Miconazole Nitrate (Miconazole Nitrate Powder 85 Gm) 1 appln EXT PRN PRN PRN Reason: Affected Skin Folds Stop: 08/01/25 08:10 Last Admin: 07/02/25 18:45 Dose: 1 appln Miscellaneous (Carbohydrates For Hypoglycemia ) 15 - 30 gm PO UD PRN PRN Reason: Hypoglycemia Protocol Stop: 07/31/25 11:27 Miscellaneous Information (Pharmacy Glycemic Mgmt Consult) 1 each N/A UD PRN; Protocol PRN Reason: Consult Stop: 07/31/25 11:22 Multivitamins/Minerals (Cerovite Adv Formula Tab) 1 tab PO DAILY [facility] Stop: 08/01/25 08:59 Last Admin: 07/04/25 09:15 Dose: 1 tab Sertraline HCl (Sertraline Hcl 100 Mg Tablet) [facility] [place]: 08/01/25 08:59 Last Admin: 07/04/25 09:15 Dose: 100 mg Tamsulosin HCl (Tamsulosin Hcl 0.4 Mg Cap) 0.4 mg PO QAM [facility] Stop: 08/01/25 08:59 Last Admin: 07/04/25 09:15 Dose: 0.4 mg
[2025-07-05 07:40] LABS: Hematocrit (blood only) 46.8 % (42.0-52.0); Hemoglobin 15.3 g/dl (14.0-18.0); Immature Granulocytes # (auto) 0.10 K/uL (0.01-0.20); Immature Granulocytes % (auto) 1.0 %; Mean Corpuscular Hemoglobin 28.2 pg (25.0-34.0); Mean Corpuscular Volume 86.2 fL (80.0-100.0); Platelet Count 239 K/uL (130-400); RDW Standard Deviation 43.9 fL (36.4-46.3); Red Blood Count 5.43 M/uL (4.70-6.10); White Blood Count 10.19 K/ul (4.8-10.8)
[2025-07-05 07:59] LABS: Anion Gap 5.0 (3-11); Calcium 8.8 mg/dl (8.6-10.3); Carbon Dioxide 25.0 mmol/L (21-32); Chloride 107.0 mmol/L (98-107); Magnesium 1.9 mg/dl (1.7-2.4); Potassium 4.3 mmol/L (3.5-5.1); Sodium 137.0 mmol/L (136-145)
[2025-07-05 08:05] LABS: Blood Urea Nitrogen 24.0 mg/dl (6-23); Creatinine Clr Calc Pharmacy 155.4 ml/min; Glucose 193.0 mg/dl (70-99(Fasting))
--- NOTE | 2025-07-05 14:13 | Hospitalist Progress Note ---
Date of Service July 05, 2025 Assessment & Plan (1) Bilateral cellulitis of lower leg: (2) Open wound of both legs with complication: (3) Diabetes mellitus due to underlying condition, uncontrolled, with hyperglycemia, with long-term current use of insulin: Plan: 64 yo M w/ PMH of chronic diastolic heart failure (EF 60 to 65%, TTE 2024), nonobstructive CAD, PVD, PAF on Eliquis, hypertension, hyperlipidemia, HCV status post interferon Rx, DM 2 insulin requiring, history of toxoplasmosis chorioretinitis, TB, anxiety/mood disorder, substance abuse presents to the ED w/ co increasing discomfort and increasing 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 Pt denied fever, dysuria, hematuria but reports urinary incontinence. He is being managed for the following: BILATERAL LOWER EXTREMITY CELLULITIS, RECURRENT BILATERAL LOWER LEG WOUNDS Recently discharged Jun 12 from [facility] after being treated for BL lower extremity cellulitis and L great toe wound Completed 2 week course of PO Linezolid and Levaquin Follows with wound care center Readmitted 07/01 due to worsening BL lower extremity pain, redness Complicated by DM 2, urinary incontinence DC Dapto and cefepime, wound Cx growing serratia. Levaquin started. Appreciate ID input and recommendationWill continue oral Levaquin for a total of 14 days Appreciate wound care input and recommendation Strongly advised to keep the wound clean and dry on discharge and follow instruction about dressing Will need to have outpatient wound care follow-up appointment on discharge Complaints more pain in the legs, has been getting physical therapy with difficulties Will continue to observe and likely discharge tomorrow Advised to continue with physical therapy and increasing activities URINARY INCONTINENCE BPH affecting wound healing UA no signs of UTI, PSA level wnl. Denies any significant symptoms Bladder scan q8h Urology evaluated, recs are tamsulosin, postvoid residual bladder scan to evaluate emptying [rn aware], if continued problem then asencio cath. 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 monitor DM 2: hold Jardiance, Metformin. A1c this adm is 10 [improvement from prior]. ISS. Pharmacy Glycemic consult Blood sugar seems to be stable CHF, DIASTOLIC: euvolemic to dry. hold Lasix, Spironolactone. re-evaluate daily Will restart his usual medications on discharge Other significant medical conditions remained stable as below: CAD, NONOBSTRUCTIVE- continue Metoprolol, , ASA PAROXYSMAL A FIB on eliquis PERIPHERAL VASCULAR DISEASE HTN ANXIETY/DEPRESSION SUBSTANCE ABUSE HISTORY OF HEP C S/P INTERFERON THERAPY DVT PROPHYLAXIS- on Eliquis FULL CODE as per patient DISPOSITION- admit to med/surg, pt/ot. Likely discharge tomorrow Admission and Anticipated Discharge Date Admission Date: July 01, 2025 Subjective The patient was seen and examined in medical telemetry unit He has been complaining of pain in the legs mostly in the right Denies any other significant symptoms Has been participating in physical therapy with difficulties and does not want to go home today 07/05/2025 The patient was seen and examined in medical telemetry unit He has been stable but complains to have more pain in the legs specially when ambulating Feels that he is not yet ready to be discharged Denies any fever and/or chills and no abdominal pain nausea and/or vomiting Review of Systems Review of Systems: All systems reviewed and are unremarkable except as noted below Physical Exam Physical Exam: Lying in bed with some leg pain on the right side mainly Constitutional: well developed, well nourished, + ill appearing and + obese Eyes: PERRL, conjunctivae normal, anicteric sclerae ENMT: external ear and nose normal, oropharynx normal Neck: trachea midline, no thyromegaly Respiratory: no respiratory distress Auscultation: lungs clear to auscultation bilaterally Cardiovascular: Rate/Rhythm: regular rate and regular rhythm; not tachycardic Heart Sounds: normal S1 and normal S2; no murmur Extremities: no edema Gastrointestinal (Abdomen): Inspection/Auscultation: normal bowel sounds; abdomen not distended Percussion/Palpation: abdomen soft; abdomen nontender Neurologic: normal touch/pain/proprioception and moves all extremities; no focal motor deficits Lymphatic: no cervical or axillary lymphadenopathy Results & Data Results & Data Vital Signs (Past 12 Hours) Vital Signs Temp Pulse Pulse Resp BP BP Pulse Ox 07/05/25 10:58 36.3 C L 63 18 117/68 96 07/05/25 08:01 36.5 C 63 18 115/74 93 07/05/25 07:42 62 07/05/25 02:13 36.5 C 66 16 110/68 96 O2 Del Method 07/05/25 10:58 Room Air 07/05/25 08:01 Room Air 07/05/25 07:42 07/05/25 02:13 Room Air Laboratory Results Short CBC 07/05/25 Range/Units 07:16 WBC 10.19 (4.8-10.8) K/ul Hgb 15.3 (14.0-18.0) g/dl Hct 46.8 (42.0-52.0) % Plt Count 239 (130-400) K/uL BMP 07/05/25 07:16 Sodium 137 Potassium 4.3 Chloride 107 Carbon Dioxide 25 BUN 24 H Creatinine 0.62 Glucose 193 H Calcium 8.8 Medications Administered Current Inpatient Medications Acetaminophen (Acetaminophen 325 Mg Tab) 650 mg PO Q4H PRN PRN Reason: Pain or Fever Stop: 07/31/25 13:34 Last Admin: 07/02/25 09:29 Dose: 650 mg Apixaban (Apixaban 5 Mg Tablet) 5 mg PO BID MULU Stop: 07/31/25 20:59 Last Admin: 07/05/25 09:36 Dose: 5 mg Ascorbic Acid (Ascorbic Acid 500 Mg Tab) 1,000 mg PO DAILY [facility]U Stop: 08/01/25 08:59 Last Admin: 07/05/25 09:36 Dose: 1,000 mg Aspirin (Aspirin 81 Mg Chew) 81 mg PO DAILY [facility] Stop: 08/01/25 08:59 Last Admin: 07/05/25 12:17 Dose: 81 mg Bupropion HCl (Bupropion Xl 300 Mg Tabcr) 300 mg PO DAILY [facility]ULU Stop: 08/01/25 08:59 Last Admin: 07/05/25 09:36 Dose: 300 mg Cyanocobalamin (Cyanocobalamin (B-12) 500 Mcg Tablet) 1,000 mcg PO DAILY MULU Stop: 08/01/25 08:59 Last Admin: 07/05/25 09:37 Dose: 1,000 mcg Dextrose (Dextrose 50% 50 Ml Syringe) 25 - 50 ml IV UD PRN; Protocol PRN Reason: Hypoglycemia Protocol Stop: 07/31/25 11:27 Fluticasone Furoate (Fluticasone Furoate 100mcg 14 Puffs/Inhaler) 1 puffs INH DAILY [facility]ULU Stop: 08/01/25 08:59 Last Admin: 07/05/25 09:48 Dose: 1 puffs Glucagon (Glucagon For Inj 1 Mg Vial) 1 mg SQ UD PRN; Protocol PRN Reason: Hypoglycemia Protocol Stop: 07/31/25 11:27 Glucose (Glucose 40% Gel 15 Gm Tube) 15 - 30 gm PO UD PRN; Protocol PRN Reason: Hypoglycemia Protocol Stop: 07/31/25 11:27 Glucose (Glucose 10 Tab/Tube) 4 - 8 tab PO UD PRN; Protocol PRN Reason: Hypoglycemia Protocol Stop: 07/31/25 11:27 Insulin Aspart (Insulin Aspart Per Unit Charge) 0 units SC ACHS [facility] Stop: 07/31/25 11:29 Last Admin: 07/05/25 12:55 Dose: 19 units Insulin Human NPH (Insulin Human Nph) 25 units SC QDB MULU Stop: 08/03/25 11:29 Last Admin: 07/05/25 09:40 Dose: 25 units Insulin Human NPH (Insulin Human Nph) 0 units SC QDD MULU; Protocol Stop: 08/03/25 16:29 Last Admin: 07/04/25 18:11 Dose: Not Given Lactobacillus Acidophilus (Advanced Probiotic 625 Mg Capsule) 1,250 mg PO DAILY [facility] Stop: 07/31/25 11:59 Last Admin: 07/05/25 09:37 Dose: 1,250 mg Levofloxacin (Levofloxacin 750 Mg Tab) 750 mg PO QAM [facility] Stop: 07/10/25 08:59 Last Admin: 07/05/25 09:37 Dose: 750 mg Lisinopril (Lisinopril 20 Mg Tab) 20 mg PO DAILY [facility] Stop: 08/01/25 08:59 Last Admin: 07/05/25 09:36 Dose: 20 mg Metoprolol Succinate (Metoprolol Succ 50mg Ext Rel Tab) 50 mg PO BID [facility] Stop: 07/31/25 20:59 Last Admin: 07/05/25 09:36 Dose: 50 mg Miconazole Nitrate (Miconazole Nitrate Powder 85 Gm) 1 appln EXT PRN PRN PRN Reason: Affected Skin Folds Stop: 08/01/25 08:10 Last Admin: 07/02/25 18:45 Dose: 1 appln Miscellaneous (Carbohydrates For Hypoglycemia ) 15 - 30 gm PO UD PRN PRN Reason: Hypoglycemia Protocol Stop: 07/31/25 11:27 Miscellaneous Information (Pharmacy Glycemic Mgmt Consult) 1 each N/A UD PRN; Protocol PRN Reason: Consult Stop: 07/31/25 11:22 Multivitamins/Minerals (Cerovite Adv Formula Tab) 1 tab PO DAILY [facility] Stop: 08/01/25 08:59 Last Admin: 07/05/25 09:37 Dose: 1 tab Sertraline HCl (Sertraline Hcl 100 Mg Tablet) 100 mg PO QAM [facility] Stop: 08/01/25 08:59 Last Admin: 07/05/25 09:37 Dose: 100 mg Tamsulosin HCl (Tamsulosin Hcl 0.4 Mg Cap) 0.4 mg PO QAM [facility] Stop: 08/01/25 08:59 Last Admin: 07/05/25 09:36 Dose: 0.4 mg
--- NOTE | 2025-07-06 11:07 | Hospitalist Progress Note ---
Date of Service July 06, 2025 Assessment & Plan (1) Bilateral cellulitis of lower leg: (2) Open wound of both legs with complication: (3) Diabetes mellitus due to underlying condition, uncontrolled, with hyperglycemia, with long-term current use of insulin: Plan: 64 yo M w/ PMH of chronic diastolic heart failure (EF 60 to 65%, TTE 2024), nonobstructive CAD, PVD, PAF on Eliquis, hypertension, hyperlipidemia, HCV status post interferon Rx, DM 2 insulin requiring, history of toxoplasmosis chorioretinitis, TB, anxiety/mood disorder, substance abuse presents to the ED w/ co increasing discomfort and 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 Pt denied fever, dysuria, hematuria but reports urinary incontinence. He is being managed for the following: BILATERAL LOWER EXTREMITY CELLULITIS, RECURRENT BILATERAL LOWER LEG WOUNDS Recently discharged Jun 12 from [facility] after being treated for BL lower extremity cellulitis and L great toe wound Completed 2 week course of PO Linezolid and Levaquin Follows with wound care center Readmitted 07/01 due to worsening BL lower extremity pain, redness Complicated by DM 2, urinary incontinence DC Dapto and cefepime, wound Cx growing serratia. Levaquin started. Appreciate ID input and recommendationWill continue oral Levaquin for a total of 14 days Appreciate wound care input and recommendation Strongly advised to keep the wound clean and dry on discharge and follow instruction about dressing Will need to have outpatient wound care follow-up appointment on discharge Complaints more pain in the legs, has been getting physical therapy with difficulties Will continue to observe and likely discharge tomorrow Advised to continue with physical therapy and increasing activities His pain is much improved and the leg wounds are much better too He has been ambulating without any difficulties and will be discharged home this afternoon URINARY INCONTINENCE BPH affecting wound healing UA no signs of UTI, PSA level wnl. Denies any significant symptoms Bladder scan q8h Urology evaluated, recs are tamsulosin, postvoid residual bladder scan to evaluate emptying [rn aware], if continued problem then asencio cath. 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 monitor DM 2: hold Jardiance, Metformin. A1c this adm is 10 [improvement from prior]. ISS. Pharmacy Glycemic consult Blood sugar seems to be stable Will resume his antidiabetic medication on discharge CHF, DIASTOLIC: euvolemic to dry. hold Lasix, Spironolactone. re-evaluate daily Will restart his usual medications on discharge Other significant medical conditions remained stable as below: CAD, NONOBSTRUCTIVE- continue Metoprolol, , ASA PAROXYSMAL A FIB on eliquis PERIPHERAL VASCULAR DISEASE HTN ANXIETY/DEPRESSION SUBSTANCE ABUSE HISTORY OF HEP C S/P INTERFERON THERAPY DVT PROPHYLAXIS- on Eliquis FULL CODE as per patient DISPOSITION- admit to med/surg, pt/ot. He will be discharged this afternoon Admission and Anticipated Discharge Date Admission Date: July 01, 2025 Subjective The patient was seen and examined in medical telemetry unit He has been complaining of pain in the legs mostly in the right Denies any other significant symptoms Has been participating in physical therapy with difficulties and does not want to go home today 07/05/2025 The patient was seen and examined in medical telemetry unit He has been stable but complains to have more pain in the legs specially when ambulating Feels that he is not yet ready to be discharged Denies any fever and/or chills and no abdominal pain nausea and/or vomiting 07/06/2025 The patient was seen and examined in medical telemetry unit He has been much better and today the leg pain is improved Denies any fever and no chills, any abdominal pain nausea no vomiting He will be discharged home this afternoon Review of Systems Review of Systems: All systems reviewed and are unremarkable except as noted below Physical Exam Physical Exam: Lying in bed with some leg pain on the right side mainly Constitutional: well developed, well nourished, + ill appearing and + obese Eyes: PERRL, conjunctivae normal, anicteric sclerae ENMT: external ear and nose normal, oropharynx normal Neck: trachea midline, no thyromegaly Respiratory: no respiratory distress Auscultation: lungs clear to auscultation bilaterally Cardiovascular: Rate/Rhythm: regular rate and regular rhythm; not tachycardic Heart Sounds: normal S1 and normal S2; no murmur Extremities: no edema Gastrointestinal (Abdomen): Inspection/Auscultation: normal bowel sounds; abdomen not distended Percussion/Palpation: abdomen soft; abdomen nontender Neurologic: normal touch/pain/proprioception and moves all extremities; no focal motor deficits Lymphatic: no cervical or axillary lymphadenopathy Results & Data Results & Data Vital Signs (Past 12 Hours) Vital Signs Temp Pulse Pulse Resp BP Pulse Ox O2 Del Method 07/06/25 08:16 36.5 C 70 16 110/71 96 Room Air 07/06/25 07:34 64 07/06/25 03:38 37 C 69 16 133/80 95 Room Air 07/05/25 23:20 36.6 C 63 16 125/60 95 Room Air Medications Administered Current Inpatient Medications Acetaminophen (Acetaminophen 325 Mg Tab) 650 mg PO Q4H PRN PRN Reason: Pain or Fever Stop: 07/31/25 13:34 Last Admin: 07/02/25 09:29 Dose: 650 mg Apixaban (Apixaban 5 Mg Tablet) 5 mg PO BID MULU Stop: 07/31/25 20:59 Last Admin: 07/06/25 08:35 Dose: 5 mg Ascorbic Acid (Ascorbic Acid 500 Mg Tab) 1,000 mg PO DAILY [facility] Stop: 08/01/25 08:59 Last Admin: 07/06/25 08:35 Dose: 1,000 mg Aspirin (Aspirin 81 Mg Chew) 81 mg PO DAILY [facility] Stop: 08/01/25 08:59 Last Admin: 07/06/25 08:41 Dose: 81 mg Bupropion HCl (Bupropion Xl 300 Mg Tabcr) 300 mg PO DAILY [facility] Stop: 08/01/25 08:59 Last Admin: 07/06/25 08:35 Dose: 300 mg Cyanocobalamin (Cyanocobalamin (B-12) 500 Mcg Tablet) 1,000 mcg PO DAILY [facility] Stop: 08/01/25 08:59 Last Admin: 07/06/25 08:34 Dose: 1,000 mcg Dextrose (Dextrose 50% 50 Ml Syringe) 25 - 50 ml IV UD PRN; Protocol PRN Reason: Hypoglycemia Protocol Stop: 07/31/25 11:27 Fluticasone Furoate (Fluticasone Furoate 100mcg 14 Puffs/Inhaler) 1 puffs INH DAILY [facility] Stop: 08/01/25 08:59 Last Admin: 07/06/25 08:36 Dose: 1 puffs Glucagon (Glucagon For Inj 1 Mg Vial) 1 mg SQ UD PRN; Protocol PRN Reason: Hypoglycemia Protocol Stop: 07/31/25 11:27 Glucose (Glucose 40% Gel 15 Gm Tube) 15 - 30 gm PO UD PRN; Protocol PRN Reason: Hypoglycemia Protocol Stop: 07/31/25 11:27 Glucose (Glucose 10 Tab/Tube) 4 - 8 tab PO UD PRN; Protocol PRN Reason: Hypoglycemia Protocol Stop: 07/31/25 11:27 Insulin Aspart (Insulin Aspart Per Unit Charge) 0 units SC ACHS [facility] Stop: 07/31/25 11:29 Last Admin: 07/06/25 09:44 Dose: 18 units Insulin Human NPH (Insulin Human Nph) 25 units SC QDB [facility] Stop: 08/03/25 11:29 Last Admin: 07/06/25 08:37 Dose: 25 units Insulin Human NPH (Insulin Human Nph) 0 units SC QDD [facility]; Protocol Stop: 08/03/25 16:29 Last Admin: 07/05/25 18:29 Dose: 10 units Lactobacillus Acidophilus (Advanced Probiotic 625 Mg Capsule) 1,250 mg PO DAILY [facility] Stop: 07/31/25 11:59 Last Admin: 07/06/25 08:34 Dose: 1,250 mg Levofloxacin (Levofloxacin 750 Mg Tab) 750 mg PO QAM [facility] Stop: 07/10/25 08:59 Last Admin: 07/06/25 08:34 Dose: 750 mg Lisinopril (Lisinopril 20 Mg Tab) 20 mg PO DAILY [facility] Stop: 08/01/25 08:59 Last Admin: 07/06/25 08:34 Dose: 20 mg Metoprolol Succinate (Metoprolol Succ 50mg Ext Rel Tab) 50 mg PO BID [facility] Stop: 07/31/25 20:59 Last Admin: 07/06/25 08:35 Dose: 50 mg Miconazole Nitrate (Miconazole Nitrate Powder 85 Gm) 1 appln EXT PRN PRN PRN Reason: Affected Skin Folds Stop: 08/01/25 08:10 Last Admin: 07/02/25 18:45 Dose: 1 appln Miscellaneous (Carbohydrates For Hypoglycemia ) 15 - 30 gm PO UD PRN PRN Reason: Hypoglycemia Protocol Stop: 07/31/25 11:27 Miscellaneous Information (Pharmacy Glycemic Mgmt Consult) 1 each N/A UD PRN; Protocol PRN Reason: Consult Stop: 07/31/25 11:22 Multivitamins/Minerals (Cerovite Adv Formula Tab) 1 tab PO DAILY [facility] Stop: 08/01/25 08:59 Last Admin: 07/06/25 08:34 Dose: 1 tab Sertraline HCl (Sertraline Hcl 100 Mg Tablet) 100 mg PO [facility] Stop: 08/01/25 08:59 Last Admin: 07/06/25 08:35 Dose: 100 mg Tamsulosin HCl (Tamsulosin Hcl 0.4 Mg Cap) 0.4 mg PO [facility] Stop: 08/01/25 08:59 Last Admin: 07/06/25 08:35 Dose: 0.4 mg
[2025-07-06] MEDS: INFLUENZA VACC TS2025-26(6m+)/PF (IIV3) 0.5mL Syr IM ONE (11:13)
[2025-07-06 11:46] VITALS: BP 120/78; PULSE 63; RESP 18; TEMP 97.5; O2SAT 98
--- NOTE | 2025-07-06 16:48 | Discharge Summary ---
Date of Service July 06, 2025 Admission HPI Per Admitting Provider Medical history significant for chronic diastolic heart failure (EF 60 to 65%, TTE 2024), nonobstructive CAD, PVD, PAF on Eliquis, hypertension, hyperlipidemia, HCV status post interferon Rx, DM 2 insulin requiring, history of toxoplasmosis chorioretinitis as per records, history of TB as per records, anxiety/mood disorder, substance abuse. Patient was admitted to [facility] last Jun 02 to Jun 12, 2025 for BL Lower extremity cellulitis and Great toe wounds. He was discharged on a 2 week course of Linezolid and Levaquin which he completed. He also follows with [facility] wound center with last visit on Jun 27. Patient reports that he changes his wound dressings every other day. However, for the past few days, he noted increased discomfort, and redness over his BL lower legs. Of note, he also notes that he has been having urinary incontinence with his urine dripping down his legs frequently. Denies fever/chills, dysuria, hematuria. At the ER, BP 157/90, afebrile Noted lower extremities dressing saturated with urine Cefepime administered BSG 400s, unable to take insulin at home this morning Insulin Aspart 10 units ordered On exam, patient somewhat drowsy but easily awakened no chest pain, dyspnea, palpitations, dizziness no other symptoms Admission Exam Per Admitting Provider Good Physical Exam: General- oriented x 3, not in distress, speaks in sentences with no effort or accessory muscle use Head- atraumatic Eyes- PERRL, EOMI, anicteric ENT- oropharynx clear Neck- supple, no JVD, no adenopathy, no thyromegaly; carotids +2/2, no bruits appreciated Lungs- clear to auscultation bilaterally, no rales/wheezes Heart- normal rate, regular rhythm; no murmur, no gallop, no rub appreciated Abdomen- normal bowel sounds, nondistended, soft, nontender, no masses or hepatosplenomegaly Extremities- BL lower extremities: mild edema, moderate erythema, superficial wounds, no active drainage L great toe wound, plantar aspect: healing well Neuro- alert, oriented x 3; CN 2-12 grossly intact; motor 5/5 bilaterally;sensation 100% on all extremities; no other gross focal neurologic d eficits Skin- warm & dry Principal Diagnosis Bilateral lower leg cellulitis, type 2 diabetes, nonobstructive CAD, paroxysmal atrial fibrillation Discharge Exam Lying in bed with some leg pain on the right side mainly Constitutional well developed, well nourished, + ill appearing and + obese Eyes PERRL, conjunctivae normal, anicteric sclerae ENMT external ear and nose normal, oropharynx normal Neck trachea midline, no thyromegaly Respiratory no respiratory distress Auscultation: lungs clear to auscultation bilaterally Cardiovascular Rate/Rhythm: regular rate and regular rhythm; not tachycardic Heart Sounds: normal S1 and normal S2; no murmur Extremities: no edema Gastrointestinal (Abdomen) Inspection/Auscultation: normal bowel sounds; abdomen not distended Percussion/Palpation: abdomen soft; abdomen nontender Neurologic normal touch/pain/proprioception and moves all extremities; no focal motor deficits Lymphatic no cervical or axillary lymphadenopathy Discharge Data Allergies Allergy/AdvReac Type Severity Reaction Status Date / Time shellfish derived Allergy Severe Swelling Verified 07/01/25 09:44 amoxicillin Allergy Intermediate HIVES Verified 07/01/25 09:44 clavulanic acid Allergy Intermediate HIVES Verified 07/01/25 09:44 permethrin Allergy Intermediate swelling Verified 07/01/25 09:44 shrimp Allergy Intermediate SWELLS Verified 07/01/25 09:44 sulfamethoxazole Allergy Unknown CAN'T Verified 07/01/25 09:44 [From Bactrim] REMEMBER trimethoprim [From Bactrim] Allergy Unknown CAN'T Verified 07/01/25 09:44 REMEMBER insulin glargine AdvReac Severe CHF PER Verified 07/01/25 09:44 [From Lantus U-100 Insulin] [facility] Consultations 07/01/25 10:35 ED Decision to Admit Stat 07/01/25 11:23 Consult Urology Routine 07/01/25 11:42 Consult Infectious Diseases Routine 07/01/25 13:35 Consult Infectious Diseases Routine Diabetes Follow up Diabetes Follow-up Needed for HgbA1c >9% Hospital Course (1) Bilateral cellulitis of lower leg: (2) Open wound of both legs with complication: (3) Diabetes mellitus due to underlying condition, uncontrolled, with hyperglycemia, with long-term current use of insulin: 64 yo M w/ PMH of chronic diastolic heart failure (EF 60 to 65%, TTE 2024), nonobstructive CAD, PVD, PAF on Eliquis, hypertension, hyperlipidemia, HCV status post interferon Rx, DM 2 insulin requiring, history of toxoplasmosis chorioretinitis, TB, anxiety/mood disorder, substance abuse presents to the ED w/ co increasing discomfort and increasing redness over his BL lower legs for the past few days [employer]. Pt denied fever, dysuria, hematuria but reports urinary incontinence. He is being managed for the following: BILATERAL LOWER EXTREMITY CELLULITIS, RECURRENT BILATERAL LOWER LEG WOUNDS Recently discharged Jun 12 from [facility] after being treated for BL lower extremity cellulitis and L great toe wound Completed 2 week course of PO Linezolid and Levaquin Follows with wound care center Readmitted 07/01 due to worsening BL lower extremity pain, redness Complicated by DM 2, urinary incontinence DC Dapto and cefepime, wound Cx growing serratia. Levaquin started. Appreciate ID input and recommendationWill continue oral Levaquin for a total of 14 days Appreciate wound care input and recommendation Strongly advised to keep the wound clean and dry on discharge and follow instruction about dressing Will need to have outpatient wound care follow-up appointment on discharge Complaints more pain in the legs, has been getting physical therapy with difficulties Will continue to observe and likely discharge tomorrow Advised to continue with physical therapy and increasing activities His pain is much improved and the leg wounds are much better too He has been ambulating without any difficulties and will be discharged home this afternoon URINARY INCONTINENCE BPH affecting wound healing UA no signs of UTI, PSA level wnl. Denies any significant symptoms Bladder scan q8h Urology evaluated, recs are tamsulosin, postvoid residual bladder scan to evaluate emptying [rn aware], if continued problem then asencio cath. 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 monitor DM 2: hold Jardiance, Metformin. A1c this adm is 10 [improvement from prior]. ISS. Pharmacy Glycemic consult Blood sugar seems to be stable Will resume his antidiabetic medication on discharge CHF, DIASTOLIC: euvolemic to dry. hold Lasix, Spironolactone. re-evaluate daily Will restart his usual medications on discharge Other significant medical conditions remained stable as below: CAD, NONOBSTRUCTIVE- continue Metoprolol, , ASA PAROXYSMAL A FIB on eliquis PERIPHERAL VASCULAR DISEASE HTN ANXIETY/DEPRESSION SUBSTANCE ABUSE HISTORY OF HEP C S/P INTERFERON THERAPY DVT PROPHYLAXIS- on Eliquis FULL CODE as per patient DISPOSITION- admit to med/surg, pt/ot. He will be discharged this afternoon Total Time Total Time Spent Total Time Spent (In Minutes): 40 minutes Discharge Plan Discharge Items Patient Disposition: Home - Self-Care Reason For Visit: NANCY LE CELLULITIS Discharge Diagnosis: Bilateral lower leg cellulitis, type 2 diabetes, nonobstructive CAD, paroxysmal atrial fibrillation Condition on Discharge: Good Activity: Resume your previous activity Non-emergency contact: Primary Care Provider Call non-emergency contact if: you have any medication questions and your symptoms worsen Follow-up/Referrals: Willam Fofana DO [Primary Care Provider] - (Date & Time 07/11/2025 1:40 PM Provider: Willam Fofana DO [facility] ) Wound Care,Nurse [Registered Nurse] - 07/06/25 9:30 am ([address], [place], [place] [id number] ) Diet: Carb Consistent or DM2 and Heart Healthy Addtl Attending Provider Instructions: Please take precautions to avoid falls Finish the course of antibiotic. You can take some [id number] probiotics with antibiotic Take your medications as advised Please keep appointments with the healthcare providers and a follow-up with the wound clinic Pending Studies at Discharge: No Stand-Alone Forms: My [facility] [employer], Smoking Cessation Medications and DC Order Prescriptions: New levofloxacin 750 mg Tablet 750 mg PO QAM Qty: 9 0RF Continued Jardiance 25 mg tablet 25 mg PO QAM Patient Comments: Last filled 07/2024 x90 day supply. Pt states still taking. 07/01/25 ascorbic acid (vitamin C) [Vitamin C] 500 mg Tablet 1,000 mg PO DAILY Multiple Vitamin-Minerals Tablet 1 tab PO DAILY insulin glargine U-300 conc [Toujeo Max U-300 SoloStar] 300 unit/mL (3 mL) insulin pen 100 unit SUBCUT BID Patient Comments: Last filled 07/2024 x90 day supply. Pt states still taking. 07/01/25 lisinopril 20 mg tablet 20 mg PO DAILY Hold Instructions: Resume on 06/15/25. until seen by primary care doctor sertraline 100 mg tablet 100 mg PO QAM albuterol sulfate 90 mcg/actuation HFA aerosol inhaler 90 mcg INHALATION Q4H PRN (Reason: Wheezing) metoprolol succinate 50 mg Tablet Extended Release 24 Hr 50 mg PO BID Qty: 60 0RF Patient Comments: Last filled 02/2025 x30 day supply. Pt states still taking. 07/01/25 tamsulosin 0.4 mg capsule 0.4 mg PO QAM nitroglycerin 0.4 mg Tablet, Sublingual 0.4 mg sublingual DIRECTED MDD 3 PRN (Reason: Chest Pain) bupropion HCl 300 mg tablet extended release 24 hr 300 mg PO DAILY Patient Comments: Last filled 07/2024 x90 day supply. Pt states still taking. 07/01/25 cinnamon bark [Cinnamon] 500 mg Capsule 500 mg PO DAILY Qty: 0 Rx Instructions: CG Bacillus coagulans-inulin 1 billion-250 cell-mg Capsule 1 cap PO DAILY metformin 750 mg tablet extended release 24 hr 750 mg PO DAILY Qty: 30 0RF Patient Comments: Last filled 02/2025 x30 day supply. Pt states still taking. 07/01/25 Advanced Probiotic 625 mg (10 billion cell) Capsule 1 cap PO DAILY Qty: 30 0RF spironolactone 25 mg Tablet 25 mg PO DAILY Hold Instructions: Resume on 06/15/25. until seen by primary care doctor Eliquis 5 mg Tablet 5 mg PO BID Qty: 74 0RF fluticasone furoate [Arnuity Ellipta] 100 mcg/actuation blister with device 100 mcg INHALATION DAILY insulin aspart U-100 100 unit/mL (3 mL) insulin pen 60 unit SUBCUT TIDWMEAL Patient Comments: Last filled 07/2024 x90 day supply. Pt states still taking. 07/01/25 Rx Instructions: 60u with breakfast, 20u w/lunch, 60u with supper aspirin 81 mg Tablet,Chewable 81 mg PO DAILY cyanocobalamin (vitamin B-12) [Vitamin B-12] 1,000 mcg tablet extended release 1,000 mcg PO DAILY Changed furosemide [Lasix] 20 mg tablet 20 mg PO QAM Qty: 0 0RF Patient Comments: Originally written: 40mg by mouth once daily. Pt currently taking 60mg by mouth once daily. Last filled 02/2025 x30 day supply. Pt states still taking. 07/01/25 Discharge Orders: Discharge Order (Routine); Ordered 07/06/25 Ordered By: Titus Valderrama/Other Patient Handouts: Nutrition for Wound Healing, Managing Type 2 Diabetes Admission Data Admit Date/Time: 07/01/25 11:23 Attending Provider: Titus Noble Admit Provider: Sonido Starr Primary Care Provider: Willam Fofana Other Providers: Benjie Kelley; Santos Garcia; Mau Keating I.; Arun Sadler II; Joelle Ford; Bhanu Martinez; Isaac Naqvi; Leatha Haines; Sonido Starr; Nivia Sanchez Other Interventions: Discharge Summary Assessment (RN) Last Done: 07/06/25 11:36
== END 2025-07-06 14:06 | disposition home or self-care (01) | DRG 603 ==
LOC: ED 08:11 → 2N 11:23 → SUATTDRO 11:23 → 2N 12:18

== ENCOUNTER 2025-07-09 11:29 | Inpatient (IN) ==
--- NOTE | 2025-07-09 12:01 | Emergency Department Note ---
Impression & Plan Acute hyperglycemia, Stroke-like symptom, Noncompliance with medications ED Provider Note NAME: ELIN ELLISON AGE: 65 SEX: M : 1960 ARRIVES VIA: Walk-In INFORMANT: Patient ED PROVIDER(S): Ahmet Brown DO CHIEF COMPLAINT: Feeling weak, confused left facial droop HPI: Patient is a 65-year-old male with a past medical history of diabetes, generalized weakness, cellulitis, depression, who presents to the ER for left- sided facial droop, slurred speech and weakness. He notes he got just got discharged on Wednesday. The weakness all started this morning when he woke up. Denies any headache or change in vision. No chest pain or shortness of breath. Does feel weak throughout his lower extremities. No dysuria, urgency or frequency. No other exacerbating or remitting factors. He notes he went to bed last night normally and then he woke up and the facial droop is new. He has not had this before. ADDITIONAL HISTORY OBTAINED: Per HPI Chronic Medical/Social Conditions Affecting Care: Per HPI PAST MEDICAL HISTORY:See Below PAST SURGICAL HISTORY:See Below FAMILY HISTORY:See Below SOCIAL HISTORY:See Below HOME MEDICATIONS:See Below ALLERGIES:See Below VITALS:See Below PHYSICAL EXAMINATION: GENERAL: Sitting up in bed, alert, well appearing, well nourished, no distress, non-toxic EYE EXAM: normal conjunctiva. PERRL and EOM's intact. OROPHARYNX: no exudate, no erythema, lips, buccal mucosa, and tongue normal and mucous membranes are moist NECK: supple, no nuchal rigidity, no adenopathy, non-tender LUNGS: Clear to auscultation. Normal chest wall mechanics HEART: no murmurs, S1 normal and S2 normal ABDOMEN: abdomen soft, non-tender, normo-active bowel sounds, no masses, no rebound or guarding. BACK: Back is symmetrical on inspection and there is no deformity, no midline tenderness, no CVA tenderness. SKIN: no rashes and no bruising UPPER EXTREMITIES: upper extremities are grossly normal. LOWER EXTREMITIES: No pitting edema. NEURO EXAM: Normal sensorium, left-sided facial droop, normal speech, no weakness of arms, no weakness of legs. No drift. Finger to nose intact. Gross sensation intact. MEDICAL DECISION MAKING: Patient is a 65-year-old male who presents to the ER for the above-stated complaint. IV was established and blood work was obtained. On exam patient had a slight left-sided facial droop was complaining of diffuse weakness throughout. With the facial droop which he denied ever having before and notes that is new a stroke alert was called. Labs showed no significant leukocytosis or anemia. INR unremarkable. BMP with mild hyponatremia 134. Glucose was elevated at over 500. LFTs bilirubin and mag were unremarkable. Troponin was negative. He was otherwise neurologically intact. Last known well was last night around 10:00. He is not a TNK candidate. Did discuss with Claudette carrera and they recommended admission and MRIs. Patient was placed on insulin drip and I did notify the pharmacist that this was ordered. He was given IV fluids. Updated bedside and admitted for further workup. Telestroke agreed that he was not a TNK candidate and will be admitted for further workup. Consults/Care Managements Discussions: Per [facility] Triage Nursing notes reviewed. Limited review of prior medical records performed Vital Signs: reviewed and remarkable for HTN Differential diagnosis: Differential diagnoses includes but is not limited to toxic, metabolic, infectious, traumatic, cardiac, neurologic, hematologic, psychiatric and inflammatory etiologies. ER treatment provided: See below Diagnostics interpreted by me include EKG and cardiac monitoring as listed below: -Cardiac Monitoring: An order was placed for continuous cardiac monitoring. The monitor shows a rate of 82 with sinus rhythm. -ECG: Sinus rhythm rate 85 Normal axis No PVCs QTc 464 -Laboratory studies:Interpreted by me as stated above in MDM and shown below. Imaging studies: Xrays: As interpreted by me:none CTs show: CT of the head Noncon per my pleurae interpretation showed no obvious large bleed or mass CT of the head as well as angios head and neck were negative per radiology for any acute pathology Procedures:none Critical Care: I have personally spent 33 minutes of critical care time in the direct management of this patient. This includes bedside care, interpretation of diagnostic studies, and testing, discussion with consultants, patient, and family members, and other required patient management activities. This 33 minutes is in excess of all separately billable procedures. Past Med/Surg History Problem List (Updated 07/09/25 @ 15:26 by Ahmet Brown DO) Noncompliance with medications (Acute) Stroke-like symptom (Acute) Acute hyperglycemia (Acute) Acute metabolic encephalopathy Open wound of both legs with complication Wound of left lower extremity Diabetic ulcer of left great toe Acute hypoxemic respiratory failure Hyperglycemia due to diabetes mellitus (Acute) Diabetic foot ulcer (Acute) Diabetes mellitus due to underlying condition, uncontrolled, with hyperglycemia, with long-term current use of insulin Major depressive disorder Chronic venous insufficiency Venous ulcers of both lower extremities Paroxysmal atrial tachycardia Paroxysmal atrial fibrillation Methamphetamine abuse PAC (premature atrial contraction) Diabetic peripheral neuropathy (Acute) Diabetic neuropathic arthritis Unable to care for self (Acute) Ambulatory dysfunction (Acute) Noncompliance w/medication treatment due to intermit use of medication BPH (benign prostatic hyperplasia) Anxiety and depression Morbid obesity with BMI of 40.0-44.9, adult ALEJANDRA (obstructive sleep apnea) Hyperglycemia Nonischemic cardiomyopathy (Chronic) "prior EF 30% per Epic records. echo 02/2015- EF 40-45%" DM type 2 (diabetes mellitus, type 2) (Chronic) Hepatitis C (Chronic) Hypertension (Chronic) Hyperglycemia due to type 2 diabetes mellitus (Acute) Polyneuropathy Peripheral vascular disease Depression Encephalopathy Varicose veins of bilateral lower extremities with other complications Morbid obesity Medical History (Updated 07/09/25 @ 15:26 by Ahmet Brown DO) H/O drug abuse Colon polyp "TVA polyp on colonoscopy 09/2014" H/O toxoplasmosis H/O TB (tuberculosis) Closed head injury Peripheral neuropathy Acute dehydration Dysequilibrium Hepatitis C Diabetes mellitus, type 2 Depression Anxiety Hypertension Surgical History (Updated 07/09/25 @ 13:31 by Leana Sanders PA-C) S/P cardiac cath "for abnormal stress test. cath 03/18/2015-essentially normal coronaries with no obstructive disease " H/O colonoscopy "11/2015- diverticulosis" History of umbilical hernia repair x2 History of tooth extraction History of wisdom tooth extraction Family History Mother Family history of diabetes mellitus Father Family history of diabetes mellitus Other No family history of adverse response to anesthesia Social History Smoking Status: Never smoker Tobacco Type: Cigarettes Cigarettes Per Day: Says he occasionally will smoke a cigar.; Second Hand Exposure: No; Do You Dip or Chew Tobacco: No; Hx Alcohol Use: Yes Alcohol type: beer, wine and hard liquor Alcohol Intake Frequency: Monthly or Less Hx Substance Use: Yes Non-Prescribed Medications: Methamphetamines Last Used Substance: Days (ago) Last Used Substance Other:: a couple weeks ago Substance Use Type Other:: MDMA, speed Preferred Language: Korean Communication Ability: Effective Visual Impairment: Severely Limited Hearing Ability: Normal Theatre Professor Required: No Beliefs That Will Affect Care: Spiritual marital status: Single Current Living Situation: Alone Current Living Situation Comment: lives alone Feels Safe at Home: Yes Diet: regular caffeine: Yes Gender Identity: Male Assistive Devices: Cane and Walker Allergies Allergies Allergy/AdvReac Type Severity Reaction Status Date / Time shellfish derived Allergy Severe Swelling Verified 07/01/25 09:44 amoxicillin Allergy Intermediate HIVES Verified 07/01/25 09:44 clavulanic acid Allergy Intermediate HIVES Verified 07/01/25 09:44 permethrin Allergy Intermediate swelling Verified 07/01/25 09:44 shrimp Allergy Intermediate SWELLS Verified 07/01/25 09:44 sulfamethoxazole Allergy Unknown CAN'T Verified 07/01/25 09:44 [From Bactrim] REMEMBER trimethoprim [From Bactrim] Allergy Unknown CAN'T Verified 07/01/25 09:44 REMEMBER insulin glargine AdvReac Severe CHF PER Verified 07/01/25 09:44 [From Lantus U-100 Insulin] [facility] Home Meds Home Medications Medication Instructions Recorded Confirmed empagliflozin 25 mg tablet 25 mg PO QAM 08/01/22 07/09/25 (Jardiance) ascorbic acid (vitamin C) 500 mg 1,000 mg PO DAILY 09/21/22 07/09/25 tablet (Vitamin C) multivitamin with minerals 1 tab PO DAILY 09/21/22 07/09/25 (Multiple Vitamin-Minerals tablet) lisinopril 20 mg tablet 20 mg PO DAILY 10/10/23 07/09/25 sertraline 100 mg tablet 100 mg PO QAM 10/10/23 07/09/25 insulin glargine U-300 conc 300 100 unit subcut BID 10/14/23 07/09/25 unit/mL (3 mL) subcutaneous pen (Toujeo Max U-300 SoloStar) albuterol sulfate 90 mcg/actuation 90 mcg inhalation Q4H PRN Wheezing 06/06/24 07/09/25 aerosol inhaler fluticasone furoate 100 100 mcg inhalation DAILY 08/05/24 07/09/25 mcg/actuation blister powder for inhalation (Arnuity Ellipta) insulin aspart U-100 100 unit/mL 60 unit subcut TIDWMEAL 12/15/24 07/09/25 (3 mL) subcutaneous pen nitroglycerin 0.4 mg sublingual 0.4 mg sublingual DIRECTED PRN 02/28/25 07/09/25 tablet Chest Pain tamsulosin 0.4 mg capsule 0.4 mg PO QAM 02/28/25 07/09/25 Bacillus coagulans-inulin 1 1 cap PO DAILY 03/02/25 07/09/25 billion cell-250 mg capsule bupropion HCl 300 mg 24 hr tablet, 300 mg PO DAILY 03/02/25 07/09/25 extended release cinnamon bark 500 mg capsule 500 mg PO DAILY ##0 03/02/25 07/09/25 (Cinnamon) spironolactone 25 mg tablet 25 mg PO DAILY 04/13/25 07/09/25 aspirin 81 mg chewable tablet 81 mg PO DAILY 06/02/25 07/09/25 cyanocobalamin (vitamin B-12) 1,000 mcg PO DAILY 06/27/25 07/09/25 1,000 mcg tablet,extended release (Vitamin B-12 ER) Previous Rx's Medication Instructions Recorded metoprolol succinate 50 mg 50 mg PO BID #60 tabs 12/13/24 tablet,extended release 24 hr metformin 750 mg tablet,extended 750 mg PO DAILY #30 tabs 03/06/25 release 24 hr L.acidop,casei,lactis,rham-B.lact,guanakito 1 cap PO DAILY #30 caps 03/09/25 625 mg (10 billion cell) capsule (Advanced Probiotic) apixaban 5 mg tablet (Eliquis) 5 mg PO BID #74 tabs 04/21/25 furosemide 20 mg tablet (Lasix) 20 mg PO QAM #0 tabs 07/06/25 levofloxacin 750 mg tablet 750 mg PO QAM #9 tabs 07/06/25 Results & Data (ED) Vital Signs Vital Signs - 24 hr 07/09/25 11:40 07/09/25 12:03 07/09/25 12:30 Temperature 36.8 C Temperature Source Temporal Artery Scan Pulse Rate 96 H 89 88 Pulse Rate [Apical] Respiratory Rate 20 24 25 H Respiratory Effort / Characteristics Respiratory Depth Blood Pressure 147/79 H 157/83 H Blood Pressure [Right Arm] Blood Pressure Mean 101 107 Blood Pressure Mean [Right Arm] Pulse Oximetry 96 Oxygen Delivery Method Room Air Sepsis Recent Fever Within 48 Hours No Sepsis New/Unexplained Change in Mental Status N/A Sepsis Action Taken by Nursing No Action Required 07/09/25 12:56 07/09/25 14:54 Temperature Temperature Source Pulse Rate 90 Pulse Rate [Apical] 77 Respiratory Rate 17 Respiratory Effort / Characteristics Non-Labored Spontaneous Respiratory Depth Normal Blood Pressure Blood Pressure [Right Arm] 159/94 H Blood Pressure Mean Blood Pressure Mean [Right Arm] 115 Pulse Oximetry 97 Oxygen Delivery Method Room Air Sepsis Recent Fever Within 48 Hours Sepsis New/Unexplained Change in Mental Status Sepsis Action Taken by Nursing Laboratory Data 07/09/25 12:02 07/09/25 12:02 Lab Results 07/09/25 07/09/25 07/09/25 Range/Units 12:02 12:33 12:35 WBC 8.37 (4.8-10.8) K/ul RBC 5.83 (4.70-6.10) M/uL Hgb 16.6 (14.0-18.0) g/dl Hct 49.6 (42.0-52.0) % MCV 85.1 (80.0-100.0) fL MCH 28.5 (25.0-34.0) pg MCHC 33.5 (32.0-36.0) g/dL RDW Std Deviation 40.9 (36.4-46.3) fL RDW Coeff of Marc 13.3 (11.5-14.5) % Plt Count 245 (130-400) K/uL MPV 9.8 (9.4-12.4) fL Immature Gran % (Auto) 0.7 % Neut % (Auto) 62.1 % Lymph % (Auto) 26.8 % Childress % (Auto) 6.5 % Eos % (Auto) 2.6 % Baso % (Auto) 1.3 % Neut # (Auto) 5.20 (1.40-6.50) K/uL Lymph # (Auto) 2.24 (1.20-3.40) K/uL Childress # (Auto) 0.54 (0.11-0.59) K/uL Eos # (Auto) 0.22 (0.00-0.50) K/uL Baso # (Auto) 0.11 (0.00-0.20) K/uL Immature Gran # (Auto) 0.06 (0.01-0.20) K/uL PT 9.9 (9.0-12.0) Seconds INR 0.9 (0.9-1.1) APTT 28 (21-31) Seconds PTT Ratio 1.0 Sodium 134 L (136-145) mmol/L Potassium 4.7 (3.5-5.1) mmol/L Chloride 97 L (98-107) mmol/L Carbon Dioxide 30 (21-32) mmol/L Anion Gap 7 (3-11) BUN 14 (6-23) mg/dl Creatinine 0.67 (0.6-1.4) mg/dl Est Cr Clr Drug Dosing 143.4 ml/min eGFR 104.91 BUN/Creatinine Ratio 20.9 H (10-20) Glucose 513 H* (70-99(Fasting)) mg/dl POC Glucose > 600 H* > 600 H* (70-99) mg/dl Calcium 9.3 (8.6-10.3) mg/dl Magnesium 2.0 (1.7-2.4) mg/dl Total Bilirubin 0.4 (0.2-1.0) mg/dl AST 24 (13-39) U/L ALT 26 (7-52) U/L Alkaline Phosphatase 100 (34-104) U/L Troponin I High Sens 12.1 (0-20) pg/ml Total Protein 6.9 (6.0-8.3) gm/dl Albumin 3.4 (3.4-5.0) gm/dl Globulin 3.5 (2.5-4.0) gm/dl Albumin/Globulin Ratio 1.0 (0.9-2) 07/09/25 Range/Units 14:12 WBC (4.8-10.8) K/ul RBC (4.70-6.10) M/uL Hgb (14.0-18.0) g/dl Hct (42.0-52.0) % MCV (80.0-100.0) fL MCH (25.0-34.0) pg MCHC (32.0-36.0) g/dL RDW Std Deviation (36.4-46.3) fL RDW Coeff of Marc (11.5-14.5) % Plt Count (130-400) K/uL MPV (9.4-12.4) fL Immature Gran % (Auto) % Neut % (Auto) % Lymph % (Auto) % Childress % (Auto) % Eos % (Auto) % Baso % (Auto) % Neut # (Auto) (1.40-6.50) K/uL Lymph # (Auto) (1.20-3.40) K/uL Childress # (Auto) (0.11-0.59) K/uL Eos # (Auto) (0.00-0.50) K/uL Baso # (Auto) (0.00-0.20) K/uL Immature Gran # (Auto) (0.01-0.20) K/uL PT (9.0-12.0) Seconds INR (0.9-1.1) APTT (21-31) Seconds PTT Ratio Sodium (136-145) mmol/L Potassium (3.5-5.1) mmol/L Chloride (98-107) mmol/L Carbon Dioxide (21-32) mmol/L Anion Gap (3-11) BUN (6-23) mg/dl Creatinine (0.6-1.4) mg/dl Est Cr Clr Drug Dosing ml/min eGFR BUN/Creatinine Ratio (10-20) Glucose (70-99(Fasting)) mg/dl POC Glucose 499 H* (70-99) mg/dl Calcium (8.6-10.3) mg/dl Magnesium (1.7-2.4) mg/dl Total Bilirubin (0.2-1.0) mg/dl AST (13-39) U/L ALT (7-52) U/L Alkaline Phosphatase (34-104) U/L Troponin I High Sens (0-20) pg/ml Total Protein (6.0-8.3) gm/dl Albumin (3.4-5.0) gm/dl Globulin (2.5-4.0) gm/dl Albumin/Globulin Ratio (0.9-2) Administered Medications Insulin Human Regular 250 (units/ Sodium Chloride) 250 mls @ 3.5 mls/hr IV .Q24H MULU; Protocol Stop: 08/08/25 12:44 Last Titration: 07/09/25 15:13 Dose: 4.2 units/hr, 4.2 mls/hr Documented By: torito Co-signed By: MARK Titration: 07/09/25 14:19 Dose: 3.5 units/hr, 3.5 mls/hr Documented By: torito Co-signed By: ANT Admin: 07/09/25 13:09 Dose: 2.9 units/hr, 2.9 mls/hr Documented By: RIVER Co-signed By: ALBERT Discontinued Medications Furosemide (Furosemide 20 Mg Tab) 20 mg PO ONE ONE Stop: 07/09/25 14:16 Last Admin: 07/09/25 14:56 Dose: 20 mg Documented By: MARK Insulin Human Regular (Novolin-R Bolus From Bag) 3 units IV ONE ONE Stop: 07/09/25 13:01 Last Admin: 07/09/25 13:10 Dose: 3 units Documented By: RIVER Co-signed By: ALBERT Ioversol (Optiray 320 125ml) 118 ml IV ONCE ONE Stop: 07/09/25 12:14 Last Admin: 07/09/25 12:14 Dose: 118 ml Documented By: PHONG Levofloxacin (Levofloxacin 750 Mg Tab) 750 mg PO ONE ONE; Protocol Stop: 07/09/25 14:16 Last Admin: 07/09/25 14:56 Dose: 750 mg Documented By: MARK Lisinopril (Lisinopril 20 Mg Tab) 20 mg PO ONE ONE Stop: 07/09/25 14:16 Last Admin: 07/09/25 14:56 Dose: 20 mg Documented By: MARK Miscellaneous (Moderate Stress Level ) 1 each N/A ONE ONE Stop: 07/09/25 12:44 Last Admin: 07/09/25 13:11 Dose: Not Given Documented By: CEF Miscellaneous (Insulin Protocol Goal Range ) 1 each N/A ONE ONE Stop: 07/09/25 12:44 Last Admin: 07/09/25 13:11 Dose: 1 each Documented By: RIVER Imaging Data Radiologist's Impression: Head CT 07/09/25 11:56 CT head/brain wo con CLINICAL HISTORY: 65 years-old Male with neuro deficit, acute stroke suspected. Acute stroke like symptoms TECHNIQUE: Multiple axial CT images of the head were obtained without contrast. A dose lowering technique was utilized adhering to the principles of ALARA. COMPARISON: CTA head of same day, head CT 06/03/2025 FINDINGS: No acute intracranial hemorrhage, midline shift, intracranial mass, hydrocephalus, territorial ischemia or abnormal extra-axial collection. Encephalomalacia in the right temporal lobe redemonstrated. Involutional changes with mild white matter hypodensities suggestive of chronic microvascular ischemic disease. No acute calvarial fracture. Left-sided craniotomy changes. The paranasal sinuses, mastoid air cells, and middle ear cavities are clear. IMPRESSION: 1. No acute intracranial abnormality. 2. Chronic findings as above. ACT 112: Negative or not required by law. The above report was generated using voice recognition software. It may contain grammatical, syntax or spelling errors. Electronically signed by: Juan Gonzalez M.D. 07/09/2025 12:39 PM Head CTA 07/09/25 11:56 CT angio head w con CLINICAL HISTORY: neuro deficit, acute stroke suspected. TECHNIQUE: Unenhanced axial CT scan of the brain is performed. Subsequently, following the IV administration of 118 cc of Optiray, CT angiogram of the brain was performed from the skull base to the vertex. Images are reviewed in the axial, sagittal, and coronal planes. 3-D MIPS images are created and assessed. IV contrast was administered without complication. All measurements were obtained according to NASCET criteria. A dose lowering technique was utilized adhering to the principles of ALARA. CT DOSE: 1351 COMPARISON STUDY: Head CT earlier today. FINDINGS: Left vertebral artery is dominant and the right vertebral artery terminates in PICA, anatomic variant. Distal internal carotid arteries are widely patent. Basilar artery is widely patent. Anterior, middle, and posterior cerebral arteries are patent. Cerebral venous sinuses opacify normally. No intracranial aneurysm seen. Stable left craniotomy. IMPRESSION: No significant arterial narrowing or occlusion seen at the brain. ACT 112: Negative or not required by law. The above report was generated using voice recognition software. It may contain grammatical, syntax or spelling errors. Electronically signed by: Ajay Swartz M.D. 07/09/2025 12:31 PM Neck CTA 07/09/25 11:56 CT angio neck with con CLINICAL HISTORY: 65 years-old Male with neuro deficit, acute stroke suspected. COMPARISON STUDY: CTA head of same day, head CT 06/03/2025 TECHNIQUE: Following the IV administration of 118 mL of Optiray, CT angiogram of the neck was performed from the aortic arch to the skull base. Images are reviewed in the axial, sagittal, and coronal planes. 3-D MIPS images are created and assessed. IV contrast was administered without complication. All measurements were calculated based on NASCET criteria. A dose lowering technique was utilized adhering to the principles of ALARA. CT DOSE: 1351.35 mGy.cm FINDINGS: Three-vessel morphology of the thoracic arch. Patent common and internal carotid arteries. Dominant left vertebral artery. Vertebral arteries are patent bilaterally without aneurysm, dissection, high-grade stenosis or arterial occlusion. Lung apices are clear. No pneumothorax. Unremarkable soft tissues. Multilevel degenerative changes of the cervical spine. IMPRESSION:Unremarkable CTA of the neck. ACT 112: Negative or not required by law. The above report was generated using voice recognition software. It may contain grammatical, syntax or spelling errors. Electronically signed by: Juan Gonzalez M.D. 07/09/2025 12:44 PM Discharge Plan Visit Data Chief Complaint: Confusion Stated Complaint: RETURN FROM [facility], CONFUSION TODAY ED Provider: Ahmet Brown Discharge Problem: Acute hyperglycemia, Stroke-like symptom, Noncompliance with medications Condition: Serious Forms Stand Alone Forms: [employer] Prescriptions Prescriptions: No Action Jardiance 25 mg tablet 25 mg PO QAM Patient Comments: Last filled 07/2024 x90 day supply. Pt states still taking. 07/01/25 ascorbic acid (vitamin C) [Vitamin C] 500 mg Tablet 1,000 mg PO DAILY Multiple Vitamin-Minerals Tablet 1 tab PO DAILY insulin glargine U-300 conc [Toujeo Max U-300 SoloStar] 300 unit/mL (3 mL) insulin pen 100 unit SUBCUT BID Patient Comments: Last filled 07/2024 x90 day supply. Pt states still taking. 07/01/25 lisinopril 20 mg tablet 20 mg PO DAILY Hold Instructions: Resume on 06/15/25. until seen by primary care doctor sertraline 100 mg tablet 100 mg PO QAM albuterol sulfate 90 mcg/actuation HFA aerosol inhaler 90 mcg INHALATION Q4H PRN (Reason: Wheezing) metoprolol succinate 50 mg Tablet Extended Release 24 Hr 50 mg PO BID Qty: 60 0RF Patient Comments: Last filled 02/2025 x30 day supply. Pt states still taking. 07/01/25 tamsulosin 0.4 mg capsule 0.4 mg PO QAM nitroglycerin 0.4 mg Tablet, Sublingual 0.4 mg sublingual DIRECTED MDD 3 PRN (Reason: Chest Pain) bupropion HCl 300 mg tablet extended release 24 hr 300 mg PO DAILY Patient Comments: Last filled 07/2024 x90 day supply. Pt states still taking. 07/01/25 cinnamon bark [Cinnamon] 500 mg Capsule 500 mg PO DAILY Qty: 0 Rx Instructions: CG Bacillus coagulans-inulin 1 billion-250 cell-mg Capsule 1 cap PO DAILY metformin 750 mg tablet extended release 24 hr 750 mg PO DAILY Qty: 30 0RF Patient Comments: Last filled 02/2025 x30 day supply. Pt states still taking. 07/01/25 Advanced Probiotic 625 mg (10 billion cell) Capsule 1 cap PO DAILY Qty: 30 0RF spironolactone 25 mg Tablet 25 mg PO DAILY Hold Instructions: Resume on 06/15/25. until seen by primary care doctor Eliquis 5 mg Tablet 5 mg PO BID Qty: 74 0RF fluticasone furoate [Arnuity Ellipta] 100 mcg/actuation blister with device 100 mcg INHALATION DAILY insulin aspart U-100 100 unit/mL (3 mL) insulin pen 60 unit SUBCUT TIDWMEAL Patient Comments: Last filled 07/2024 x90 day supply. Pt states still taking. 07/01/25 Rx Instructions: 60u with breakfast, 20u w/lunch, 60u with supper aspirin 81 mg Tablet,Chewable 81 mg PO DAILY cyanocobalamin (vitamin B-12) [Vitamin B-12] 1,000 mcg tablet extended release 1,000 mcg PO DAILY levofloxacin 750 mg Tablet 750 mg PO QAM Qty: 9 0RF furosemide [Lasix] 20 mg tablet 20 mg PO QAM Qty: 0 0RF Patient Comments: Originally written: 40mg by mouth once daily. Pt currently taking 60mg by mouth once daily. Last filled 02/2025 x30 day supply. Pt states still taking. 07/01/25 Referrals Referrals: Willam Fofana, [Primary Care Provider] -
[2025-07-09] MEDS: OPTIRAY 320 125ml IV ONE (12:14)
[2025-07-09 12:19] LABS: Hematocrit (blood only) 49.6 % (42.0-52.0); Hemoglobin 16.6 g/dl (14.0-18.0); Immature Granulocytes # (auto) 0.06 K/uL (0.01-0.20); Immature Granulocytes % (auto) 0.7 %; Mean Corpuscular Hemoglobin 28.5 pg (25.0-34.0); Mean Corpuscular Volume 85.1 fL (80.0-100.0); Platelet Count 245 K/uL (130-400); RDW Standard Deviation 40.9 fL (36.4-46.3); Red Blood Count 5.83 M/uL (4.70-6.10); White Blood Count 8.37 K/ul (4.8-10.8)
--- NOTE | 2025-07-09 12:32 | CT Scan Report ---
CT angio head w con CLINICAL HISTORY: neuro deficit, acute stroke suspected. TECHNIQUE: Unenhanced axial CT scan of the brain is performed. Subsequently, following the IV adminis tration of 118 cc of Optiray, CT angiogram of the brain was performed from the skull base to the vert ex. Images are reviewed in the axial, sagittal, and coronal planes. 3-D MIPS images are created and a ssessed. IV contrast was administered without complication. All measurements were obtained according to NASCET criteria. A dose lowering technique was utilized adhering to the principles of ALARA. CT DOSE: 1351 COMPARISON STUDY: Head CT earlier today. FINDINGS: Left vertebral artery is dominant and the right vertebral artery terminates in PICA, anatom ic variant. Distal internal carotid arteries are widely patent. Basilar artery is widely patent. Ante rior, middle, and posterior cerebral arteries are patent. Cerebral venous sinuses opacify normally. N o intracranial aneurysm seen. Stable left craniotomy. IMPRESSION: No significant arterial narrowing or occlusion seen at the brain. ACT 112: Negative or not required by law. The above report was generated using voice recognition software. It may contain grammatical, syntax o r spelling errors. Electronically signed by: Ajay Swartz M.D. 07/09/2025 12:31 PM
[2025-07-09 12:36] LABS: Alanine Aminotransferase 26.0 U/L (7-52); Albumin Globulin Ratio 1.0 (0.9-2); Albumin Level 3.4 gm/dl (3.4-5.0); Alkaline Phosphatase 100.0 U/L (34-104); Anion Gap 7.0 (3-11); Bilirubin,Total 0.4 mg/dl (0.2-1.0); Blood Urea Nitrogen 14.0 mg/dl (6-23); Calcium 9.3 mg/dl (8.6-10.3); Carbon Dioxide 30.0 mmol/L (21-32); Chloride 97.0 mmol/L (98-107); Creatinine Clr Calc Pharmacy 143.4 ml/min; Globulin 3.5 gm/dl (2.5-4.0); Glucose 513.0 mg/dl (70-99(Fasting)); Magnesium 2.0 mg/dl (1.7-2.4); Potassium 4.7 mmol/L (3.5-5.1); Sodium 134.0 mmol/L (136-145); Total Protein 6.9 gm/dl (6.0-8.3)
--- NOTE | 2025-07-09 12:41 | CT Scan Report ---
CT head/brain wo con CLINICAL HISTORY: 65 years-old Male with neuro deficit, acute stroke suspected. Acute stroke like sy mptoms TECHNIQUE: Multiple axial CT images of the head were obtained without contrast. A dose lowering tech nique was utilized adhering to the principles of ALARA. COMPARISON: CTA head of same day, head CT 06/03/2025 FINDINGS: No acute intracranial hemorrhage, midline shift, intracranial mass, hydrocephalus, territorial ischem ia or abnormal extra-axial collection. Encephalomalacia in the right temporal lobe redemonstrated. In volutional changes with mild white matter hypodensities suggestive of chronic microvascular ischemic disease. No acute calvarial fracture. Left-sided craniotomy changes. The paranasal sinuses, mastoid air cells , and middle ear cavities are clear. IMPRESSION: 1. No acute intracranial abnormality. 2. Chronic findings as above. ACT 112: Negative or not required by law. The above report was generated using voice recognition software. It may contain grammatical, syntax o r spelling errors. Electronically signed by: Juan Gonzalez M.D. 07/09/2025 12:39 PM
[2025-07-09 12:42] LABS: INR 0.9 (0.9-1.1); Partial Thromboplastin Time 28 Seconds (21-31); Prothrombin Time 9.9 Seconds (9.0-12.0)
[2025-07-09] MEDS ORDERED: STAT IV Infusion **Titration per Protocol STA (12:43)
--- NOTE | 2025-07-09 12:46 | CT Scan Report ---
CT angio neck with con CLINICAL HISTORY: 65 years-old Male with neuro deficit, acute stroke suspected. COMPARISON STUDY: CTA head of same day, head CT 06/03/2025 TECHNIQUE: Following the IV administration of 118 mL of Optiray, CT angiogram of the neck was perform ed from the aortic arch to the skull base. Images are reviewed in the axial, sagittal, and coronal pl anes. 3-D MIPS images are created and assessed. IV contrast was administered without complication. Al l measurements were calculated based on NASCET criteria. A dose lowering technique was utilized adhe ring to the principles of ALARA. CT DOSE: 1351.35 mGy.cm FINDINGS: Three-vessel morphology of the thoracic arch. Patent common and internal carotid arteries. Dominant l eft vertebral artery. Vertebral arteries are patent bilaterally without aneurysm, dissection, high-gr fletcher stenosis or arterial occlusion. Lung apices are clear. No pneumothorax. Unremarkable soft tissues. Multilevel degenerative changes of the cervical spine. IMPRESSION:Unremarkable CTA of the neck. ACT 112: Negative or not required by law. The above report was generated using voice recognition software. It may contain grammatical, syntax o r spelling errors. Electronically signed by: Juan Gonzalez M.D. 07/09/2025 12:44 PM
[2025-07-09] MEDS ORDERED: GLUCAGON FOR INJ 1 MG VIAL SQ PRN (13:00)
[2025-07-09] MEDS ORDERED: DEXTROSE 50% 50 ML SYRINGE IV PRN (13:00)
[2025-07-09] MEDS ORDERED: GLUCOSE 40% GEL 15 GM TUBE PO PRN (13:00)
[2025-07-09] MEDS ORDERED: CARBOHYDRATES FOR HYPOGLYCEMIA PO PRN (13:00)
[2025-07-09] MEDS ORDERED: GLUCOSE 10 TAB/TUBE PO PRN (13:00)
[2025-07-09] MEDS: INSULIN REGULAR 250 UNITS in SODIUM CHLORIDE 0.9% 247.5 ML IV SCH (13:09)
[2025-07-09] MEDS: NovoLIN-R BOLUS FROM BAG IV ONE (13:10)
[2025-07-09] MEDS: INSULIN PROTOCOL GOAL RANGE ONE (13:11)
[2025-07-09] MEDS: MODERATE STRESS LEVEL ONE (13:11)
--- NOTE | 2025-07-09 13:31 | History & Physical Report ---
Date of Service July 09, 2025 Assessment & Plan (1) Acute metabolic encephalopathy: (2) Diabetes mellitus due to underlying condition, uncontrolled, with hyperglycemia, with long-term current use of insulin: (3) Open wound of both legs with complication: (4) Paroxysmal atrial fibrillation: (5) Noncompliance w/medication treatment due to intermit use of medication: Plan This is a 65 y/o male with insulin-requiring diabetes, chronic HFpEF (EF 60 to 65%, TTE 2024), non-obstructive CAD, PAF on chronic AC with Eliquis, HTN, hyperlipidemia, HCV s/p interferon Rx, and other history as outlined below who presented to the ED today with new confusion and reported left facial droop. Initial work-up included CT head which showed no acute changes, CTA head and neck which were unremarkable. Labs significant for glucose of 513, troponin normal at 12.1, creatinine 0.67. Insulin gtt was started in the ED due to marked hyperglycemia and pt was referred for admission. Suspect pt's transient confusion related to marked hyperglycemia due to noncompliance with medications. #Uncontrolled insulin-requiring type 2 DM #Acute metabolic encephalopathy due to hyperglycemia. - Admit to PCU - Continue insulin gtt for now - consult pharmacy for glycemic management - BSG per protocol - Neuro checks over night - Check UDS due to history of methamphetamine use - PT/OT evaluations due to reported fall at home - MRI brain per telestroke eval #Bilateral LE cellulitis/wounds - Continue levofloxacin as prescribed at discharge last week - Consult wound care nurse #Chronic HFpEF - Continue furosemide/spironolactone - Daily weights - Follow labs #Paroxysmal atrial fibrillation - Continue Eliquis #Non-obstructive CAD - no anginal symptoms at present - Continue outpatiet regimen #BPH - Chronic, continue tamsulosin #Anxiety/Depression - Chronic, continue bupropion/sertraline Pt seen and reviewed with collaborating physician, Dr. Sommers. Plan of care discussed and as above. Code status: full code DVT prophylaxis: on Eliquis Ongoing issues with non-compliance with medications, which is contributing to pt's frequent hospitalizations. Attempted to discuss the need for medication adherence with patient. Tim Sanders PA-C History of Present Illness Chief Complaint: stroke alert Primary Care Provider: Willam Fofana, DO This is a 65 y/o male with insulin-requiring diabetes, chronic HFpEF (EF 60 to 65%, TTE 2024), non-obstructive CAD, PAF on chronic AC with Eliquis, HTN, hyperlipidemia, HCV s/p interferon Rx, and other history as outlined below who presented to the ED today with new confusion and reported left facial droop. Stroke alert was called. Initial work-up was negative. Pt was recently admitted to [facility] 07/01/25-07/06/25 for bilateral LE cellulitis and recurrent bilateral LE wounds. Pt was initially placed on cefepime and daptomycin but this was changed to levofloxacin after wound culture grew serratia. Pt was seen by ID who recommended levofloxacin for 14 days. Pt was also to follow-up with wound care as an outpatient. Pt has had multiple admission for similar complaints over the last several months including an admission at the end of February 2025 for similar presentation of new facial droop and concern for possible CVA at that time, his symptoms were determined to be secondary to acute metabolic encephalopathy due to medication non-compliance. CT and MRI were negative for acute ischemia. Since being discharged, pt reports that he has not been taking his medication as prescribed as he went to visit friends near [place] and didn't take his meds with him but stayed overnight and came home last night. He did pickle solution maker the antibiotic at discharge but hasn't taken it since Wednesday. He also reports that he didn't take any insulin yesterday or today. This morning, he reports that he woke up and felt confused and "out of it" and was stumbling around, which he reports is new for him. He states that he had a fall on Wednesday after he was discharged but no LOC or head injury. He continues to use (smoke) meth but hasn't used since before last admission (~2 weeks). He mentioned to the ED nurse that he regularly [place]. Allergies Allergy/AdvReac Type Severity Reaction Status Date / Time shellfish derived Allergy Severe Swelling Verified 07/01/25 09:44 amoxicillin Allergy Intermediate HIVES Verified 07/01/25 09:44 clavulanic acid Allergy Intermediate HIVES Verified 07/01/25 09:44 permethrin Allergy Intermediate swelling Verified 07/01/25 09:44 shrimp Allergy Intermediate SWELLS Verified 07/01/25 09:44 sulfamethoxazole Allergy Unknown CAN'T Verified 07/01/25 09:44 [From Bactrim] REMEMBER trimethoprim [From Bactrim] Allergy Unknown CAN'T Verified 07/01/25 09:44 REMEMBER insulin glargine AdvReac Severe CHF PER Verified 07/01/25 09:44 [From Lantus U-100 Insulin] [facility] Home Medications Medication Instructions Recorded Confirmed Type empagliflozin 25 mg tablet 25 mg PO QAM 08/01/22 07/09/25 History (Jardiance) ascorbic acid (vitamin C) 500 mg 1,000 mg PO DAILY 09/21/22 07/09/25 History tablet (Vitamin C) multivitamin with minerals 1 tab PO DAILY 09/21/22 07/09/25 History (Multiple Vitamin-Minerals tablet) lisinopril 20 mg tablet 20 mg PO DAILY 10/10/23 07/09/25 History sertraline 100 mg tablet 100 mg PO QAM 10/10/23 07/09/25 History insulin glargine U-300 conc 300 100 unit subcut BID 10/14/23 07/09/25 History unit/mL (3 mL) subcutaneous pen (Toujeo Max U-300 SoloStar) albuterol sulfate 90 mcg/actuation 90 mcg inhalation Q4H PRN Wheezing 06/06/24 07/09/25 History aerosol inhaler fluticasone furoate 100 100 mcg inhalation DAILY 08/05/24 07/09/25 History mcg/actuation blister powder for inhalation (Arnuity Ellipta) metoprolol succinate 50 mg 50 mg PO BID #60 tabs 12/13/24 07/09/25 Rx tablet,extended release 24 hr insulin aspart U-100 100 unit/mL 60 unit subcut TIDWMEAL 12/15/24 07/09/25 History (3 mL) subcutaneous pen nitroglycerin 0.4 mg sublingual 0.4 mg sublingual DIRECTED PRN 02/28/25 07/09/25 History tablet Chest Pain tamsulosin 0.4 mg capsule 0.4 mg PO QAM 02/28/25 07/09/25 History Bacillus coagulans-inulin 1 1 cap PO DAILY 03/02/25 07/09/25 History billion cell-250 mg capsule bupropion HCl 300 mg 24 hr tablet, 300 mg PO DAILY 03/02/25 07/09/25 History extended release cinnamon bark 500 mg capsule 500 mg PO DAILY ##0 03/02/25 07/09/25 History (Cinnamon) metformin 750 mg tablet,extended 750 mg PO DAILY #30 tabs 03/06/25 07/09/25 Rx release 24 hr L.acidop,casei,lactis,rham-B.lact,guanakito 1 cap PO DAILY #30 caps 03/09/25 07/09/25 Rx 625 mg (10 billion cell) capsule (Advanced Probiotic) spironolactone 25 mg tablet 25 mg PO DAILY 04/13/25 07/09/25 History apixaban 5 mg tablet (Eliquis) 5 mg PO BID #74 tabs 04/21/25 07/09/25 Rx aspirin 81 mg chewable tablet 81 mg PO DAILY 06/02/25 07/09/25 History cyanocobalamin (vitamin B-12) 1,000 mcg PO DAILY 06/27/25 07/09/25 History 1,000 mcg tablet,extended release (Vitamin B-12 ER) furosemide 20 mg tablet (Lasix) 20 mg PO QAM #0 tabs 07/06/25 07/09/25 Rx levofloxacin 750 mg tablet 750 mg PO QAM #9 tabs 07/06/25 07/09/25 Rx Past Med/Surg History Problem List (Updated 07/09/25 @ 14:57 by Leana Sanders PA-C) Acute metabolic encephalopathy Open wound of both legs with complication Wound of left lower extremity Diabetic ulcer of left great toe Acute hypoxemic respiratory failure Hyperglycemia due to diabetes mellitus (Acute) Diabetic foot ulcer (Acute) Diabetes mellitus due to underlying condition, uncontrolled, with hyperglycemia, with long-term current use of insulin Major depressive disorder Chronic venous insufficiency Venous ulcers of both lower extremities Paroxysmal atrial tachycardia Paroxysmal atrial fibrillation Methamphetamine abuse PAC (premature atrial contraction) Diabetic peripheral neuropathy (Acute) Diabetic neuropathic arthritis Unable to care for self (Acute) Ambulatory dysfunction (Acute) Noncompliance w/medication treatment due to intermit use of medication BPH (benign prostatic hyperplasia) Anxiety and depression Morbid obesity with BMI of 40.0-44.9, adult ALEJANDRA (obstructive sleep apnea) Hyperglycemia Nonischemic cardiomyopathy (Chronic) "prior EF 30% per Epic records. echo 02/2015- EF 40-45%" DM type 2 (diabetes mellitus, type 2) (Chronic) Hepatitis C (Chronic) Hypertension (Chronic) Hyperglycemia due to type 2 diabetes mellitus (Acute) Polyneuropathy Peripheral vascular disease Depression Encephalopathy Varicose veins of bilateral lower extremities with other complications Morbid obesity Medical History (Updated 07/09/25 @ 14:57 by Leana Sanders PA-C) H/O drug abuse Colon polyp "TVA polyp on colonoscopy 09/2014" H/O toxoplasmosis H/O TB (tuberculosis) Closed head injury Peripheral neuropathy Acute dehydration Dysequilibrium Hepatitis C Diabetes mellitus, type 2 Depression Anxiety Hypertension Surgical History (Updated 07/09/25 @ 13:31 by Leana Sanders PA-C) S/P cardiac cath "for abnormal stress test. cath 03/18/2015-essentially normal coronaries with no obstructive disease " H/O colonoscopy "11/2015- diverticulosis" History of umbilical hernia repair x2 History of tooth extraction History of wisdom tooth extraction Family History Mother Family history of diabetes mellitus Father Family history of diabetes mellitus Other No family history of adverse response to anesthesia Social History Smoking Status: Never smoker Tobacco Type: Cigarettes Cigarettes Per Day: Says he occasionally will smoke a cigar.; Second Hand Exposure: No; Do You Dip or Chew Tobacco: No; Hx Alcohol Use: Yes Alcohol type: beer, wine and hard liquor Alcohol Intake Frequency: Monthly or Less Hx Substance Use: Yes Non-Prescribed Medications: Methamphetamines Last Used Substance: Days (ago) Last Used Substance Other:: a couple weeks ago Substance Use Type Other:: MDMA, speed Preferred Language: Greenlandic Communication Ability: Effective Visual Impairment: Severely Limited Hearing Ability: Normal Crm Technical Lead Required: No Beliefs That Will Affect Care: None marital status: Single Current Living Situation: Alone Current Living Situation Comment: lives alone Feels Safe at Home: Yes Diet: regular caffeine: Yes Gender Identity: Male Assistive Devices: Cane and Walker Review of Systems Review of Systems: All systems reviewed & are unremarkable except as noted in Subjective Physical Exam Physical Exam: Please see physician note for details of the physical exam Results & Data Results & Data Vital Signs (Past 12 Hours) Vital Signs Temp Pulse Resp BP Pulse Ox O2 Del Method 07/09/25 12:56 90 07/09/25 12:30 88 25 H 157/83 H 07/09/25 12:03 89 24 07/09/25 11:40 36.8 C 96 H 20 147/79 H 96 Room Air Laboratory Results Lab Results 07/09/25 07/09/25 07/09/25 Range/Units 12:02 12:33 12:35 WBC 8.37 (4.8-10.8) K/ul RBC 5.83 (4.70-6.10) M/uL Hgb 16.6 (14.0-18.0) g/dl Hct 49.6 (42.0-52.0) % MCV 85.1 (80.0-100.0) fL MCH 28.5 (25.0-34.0) pg MCHC 33.5 (32.0-36.0) g/dL RDW Std Deviation 40.9 (36.4-46.3) fL RDW Coeff of Marc 13.3 (11.5-14.5) % Plt Count 245 (130-400) K/uL MPV 9.8 (9.4-12.4) fL Immature Gran % (Auto) 0.7 % Neut % (Auto) 62.1 % Lymph % (Auto) 26.8 % [place] % (Auto) 6.5 % Eos % (Auto) 2.6 % Baso % (Auto) 1.3 % Neut # (Auto) 5.20 (1.40-6.50) K/uL Lymph # (Auto) 2.24 (1.20-3.40) K/uL [place] # (Auto) 0.54 (0.11-0.59) K/uL Eos # (Auto) 0.22 (0.00-0.50) K/uL Baso # (Auto) 0.11 (0.00-0.20) K/uL Immature Gran # (Auto) 0.06 (0.01-0.20) K/uL PT 9.9 (9.0-12.0) Seconds INR 0.9 (0.9-1.1) APTT 28 (21-31) Seconds PTT Ratio 1.0 Sodium 134 L (136-145) mmol/L Potassium 4.7 (3.5-5.1) mmol/L Chloride 97 L (98-107) mmol/L Carbon Dioxide 30 (21-32) mmol/L Anion Gap 7 (3-11) BUN 14 (6-23) mg/dl Creatinine 0.67 (0.6-1.4) mg/dl Est Cr Clr Drug Dosing 143.4 ml/min eGFR 104.91 BUN/Creatinine Ratio 20.9 H (10-20) Glucose 513 H* (70-99(Fasting)) mg/dl POC Glucose > 600 H* > 600 H* (70-99) mg/dl Calcium 9.3 (8.6-10.3) mg/dl Magnesium 2.0 (1.7-2.4) mg/dl Total Bilirubin 0.4 (0.2-1.0) mg/dl AST 24 (13-39) U/L ALT 26 (7-52) U/L Alkaline Phosphatase 100 (34-104) U/L Troponin I High Sens 12.1 (0-20) pg/ml Total Protein 6.9 (6.0-8.3) gm/dl Albumin 3.4 (3.4-5.0) gm/dl Globulin 3.5 (2.5-4.0) gm/dl Albumin/Globulin Ratio 1.0 (0.9-2) Supervising Physician Co-Signing Physician Notes Patient seen and examined Reports he woke up confused and delirious so he came to the hospital Denied other complaints on ROS He was a stroke alert on presentation Currently reports feeling like his normal self He has not taken any of his meds the past 2 days as he stated he was not home (went to hang with friends). Denied alcohol use but may have reported wine intake to RN. Reports last use of meth was 2 weeks ago On exam, General: Not in distress Eyes: PERRL, conjunctivae normal, not pale, anicteric sclerae, EOM intact bilaterally ENMT: External ear and nose normal, oropharynx normal Respiratory: Not in resp distress, CTA b/l Cardiovascular: RRR S1 S2 Gastrointestinal (Abdomen): Abdomen is not distended, soft, non-tender to palpation, normal bowel sounds Musculoskeletal: Healing wounds on legs with dressing, stasis changes. Wound on plantar surface of left great toe Neurologic: Alert and oriented x 3, No focal weakness, sensation grossly intact, did not appreciate facial droop Psychiatric: Euthymic affect Labs notable for BG of 513 CT head, CTA head/Neck did not show any acute findings Delirium/Confusion likely due to hyperglycemia Poor compliance with medications Counseled regarding need for compliance Get UDS Started on insulin drip in ER. Monitor BG. Hold HAND LAUNDERER metformin Glycemic consult Continue levofloxacin from recent discharge Reports fall since discharge but no LOC or head trauma. Get PT/OT eval Continue HAND LAUNDERER meds. Other plans as detailed in H&P by Sheila Sanders PA-C (3) Open wound of both legs with complication Encounter type: subsequent encounter Qualified Code(s): S81.801D - Unspecified open wound, right lower leg, subsequent encounter; S81.802D - Unspecified open wound, left lower leg, subsequent encounter
[2025-07-09] MEDS ORDERED: PHARMACY GLYCEMIC MGMT CONSULT PRN (14:07)
[2025-07-09] MEDS: FUROSEMIDE 20 MG TAB PO ONE (14:56)
--- NOTE | 2025-07-09 15:09 | Pharmacy Report ---
Pharmacy Glycemic Short Note 2 - Date of Service July 09, 2025 - Glycemic Short BSG Results (Last 24 hours): 07/09/25 07/09/25 07/09/25 12:02 12:33 12:35 Glucose 513 H* POC Glucose > 600 H* > 600 H* 07/09/25 14:12 Glucose POC Glucose 499 H* OUTPATIENT ANTIDIABETIC REGIMEN: * Toujeo 100 units SQ BID * Insulin aspart 60 units SQ w/ breakfast and dinner, 20 units w/ lunch * Jardiance 25mg PO QAM * Metformin 750mg PO daily * HbA1c 07/01/2025: 10.0% ASSESSMENT: * Patient is a 65 yo male presenting to hospital 07/09/25 w/ cc of weakness and left facial droop. * Glucose of >600 on arrival. Pharmacy is consulted for glycemic management * Patient reports last dose of insulin was Saturday 07/07 * Note that patient has Lantus allergy * Patient unsure if anyone able to bring Travis in to the hospital - will plan on using NPH when transitioning off drip for now * Recent admission 06/2025 - insulin requirements lower than what he typically requires at home * 60-65 units of basal insulin daily, CF of 20-30, CR of 4-5 during that admission PLAN FOR INPATIENT GLYCEMIC CONTROL: * Hold outpatient oral diabetes medications * Insulin drip per hyperglycemia protocol * Goal range 110-180 mg/dL * ACHS Novolog per insulin calculator to cover carbs
[2025-07-09 15:56] LABS: Amphetamines+Metham, Urine Neg (Neg); MDMA (Ecstacy), Urine Neg (Neg); Marijuana, Urine Neg (Neg)
--- NOTE | 2025-07-09 16:54 | Electrocardiogram Report ---
Test Reason : Blood Pressure : */* mmHG Vent. Rate : 85 BPM Atrial Rate : 85 BPM P-R Int : 196 ms QRS Dur : 84 ms QT Int : 390 ms P-R-T Axes : 55 77 53 degrees QTcB Int : 464 ms Normal sinus rhythm Low voltage QRS Borderline ECG When compared with ECG of 05-Jun-2025 07:41, No significant change was found Confirmed by Jerome Oneil ([id number]) on 07/09/2025 4:53:31 PM Referred By: REFERRED SELF Confirmed By: Jerome Oneil
[2025-07-09] MEDS: INSULIN ASPART PER UNIT CHARGE SC SCH (18:06)
[2025-07-09] MEDS ORDERED: ALBUTEROL HFA 8 GM INHALER INH PRN (18:10)
[2025-07-09] MEDS ORDERED: ACETAMINOPHEN 325 MG TAB PO PRN (18:10)
[2025-07-09] MEDS: METOPROLOL SUCC 50MG EXT REL TAB PO SCH (20:48)
[2025-07-09] MEDS: APIXABAN 5 MG TABLET PO SCH (20:48)
--- NOTE | 2025-07-09 20:58 | Magnetic Resonance Report ---
Exam(s): MRI HEAD Without Contrast EXAM: MR Head Without Intravenous Contrast CLINICAL HISTORY: Reason for exam: transient confusion, stroke alert. TECHNIQUE: Magnetic resonance images of the head/brain without intravenous contrast in multiple planes. COMPARISON: CT, CTA 07/09/2025 FINDINGS: Brain: No diffusion restriction to suggest acute cerebral ischemia. No acute intracranial hemorrhage or abnormal extra-axial fluid collection. No mass effect or midline shift. Generalized parenchymal volume loss. Encephalomalacia anterior right temporal lobe, anterior left frontal lobe. No significant chronic small-vessel ischemic change. Ventricles: Unremarkable. No hydrocephalus. Bones/joints: Old left craniotomy. No acute fracture. Sinuses: Unremarkable as visualized. Mastoid air cells: Unremarkable as visualized. No mastoid effusion. Orbits: Unremarkable as visualized. IMPRESSION: No diffusion restriction to suggest acute cerebral ischemia. Electronically signed by: Jose Harding M.D. 07/09/25 20:57 PM
[2025-07-10 06:32] LABS: Hematocrit (blood only) 50.9 % (42.0-52.0); Hemoglobin 17.6 g/dl (14.0-18.0); Immature Granulocytes # (auto) 0.11 K/uL (0.01-0.20); Immature Granulocytes % (auto) 0.9 %; Mean Corpuscular Hemoglobin 29.2 pg (25.0-34.0); Mean Corpuscular Volume 84.6 fL (80.0-100.0); Platelet Count 249 K/uL (130-400); RDW Standard Deviation 41.2 fL (36.4-46.3); Red Blood Count 6.02 M/uL (4.70-6.10); White Blood Count 11.59 K/ul (4.8-10.8)
[2025-07-10 07:04] LABS: Anion Gap 8.0 (3-11); Blood Urea Nitrogen 19.0 mg/dl (6-23); Calcium 9.1 mg/dl (8.6-10.3); Carbon Dioxide 27.0 mmol/L (21-32); Chloride 102.0 mmol/L (98-107); Cholesterol 183.0 mg/dl (0-200); Creatinine Clr Calc Pharmacy 149.8 ml/min; Glucose 139.0 mg/dl (70-99(Fasting)); HDL Cholesterol 48.0 mg/dl; Potassium 4.1 mmol/L (3.5-5.1); Sodium 137.0 mmol/L (136-145); Triglycerides 174.0 mg/dl (0-150)
[2025-07-10 07:39] LABS: Hemoglobin A1C 9.8 % (4.5-5.6)
[2025-07-10] MEDS: INSULIN HUMAN NPH SC ONE (08:55)
[2025-07-10 09:02] LABS: Thyroid Stimulating Hormone 3.938 uIu/ml (0.300-4.500)
[2025-07-10] MEDS: SERTRALINE HCL 100 MG TABLET PO SCH (11:00)
[2025-07-10] MEDS: CEROVITE ADV FORMULA TAB PO SCH (11:00)
[2025-07-10] MEDS: ADVANCED PROBIOTIC 625 MG CAPSULE PO SCH (11:00)
[2025-07-10] MEDS: TAMSULOSIN HCL 0.4 MG CAP PO SCH (11:00)
[2025-07-10] MEDS: SPIRONOLACTONE 25 MG TAB PO SCH (11:01)
[2025-07-10] MEDS: ASCORBIC ACID 500 MG TAB PO SCH (11:01)
[2025-07-10] MEDS: CYANOCOBALAMIN (B-12) 500 MCG TABLET PO SCH (11:01)
[2025-07-10] MEDS: FUROSEMIDE 20 MG TAB PO SCH (11:01)
[2025-07-10] MEDS: ASPIRIN 81 MG ECTAB PO SCH (11:01)
[2025-07-10] MEDS: FLUTICASONE FUROATE 100MCG 14 PUFFS/INHALER INH SCH (11:05)
[2025-07-10] MEDS ORDERED: INSULIN ASPART PER UNIT CHARGE SC SCH ×2 (11:30)
[2025-07-10] MEDS: THIAMINE HCL 500 MG in SODIUM CHLORIDE 0.9% 50 ML IV SCH (12:06)
[2025-07-10] MEDS: FOLIC ACID 1 MG in SYRINGE 9.8 ML IV SCH (12:06)
[2025-07-10] MEDS: DC IV INSULIN INFUSION 1 EA DEVI ONE (12:06)
[2025-07-10] MEDS: INSULIN ASPART PER UNIT CHARGE SC SCH (13:33)
--- NOTE | 2025-07-10 14:50 | Pharmacy Report ---
Pharmacy Glycemic Short Note 2 - Date of Service July 10, 2025 - Glycemic Short BSG Results (Last 24 hours): 07/09/25 07/09/25 07/09/25 15:11 16:18 17:14 Glucose POC Glucose 446 H* 364 H* 342 H* 07/09/25 07/09/25 07/09/25 18:01 19:20 20:47 Glucose POC Glucose 300 H 167 H 172 H 07/09/25 07/09/25 07/10/25 21:51 22:54 00:47 Glucose POC Glucose 155 H 140 H 150 H 07/10/25 07/10/25 07/10/25 02:48 04:04 05:15 Glucose POC Glucose 108 H 133 H 138 H 07/10/25 07/10/25 07/10/25 05:40 06:14 07:51 Glucose 139 H POC Glucose 163 H 140 H 07/10/25 07/10/25 07/10/25 10:05 11:58 14:00 Glucose POC Glucose 147 H 159 H 203 H OUTPATIENT ANTIDIABETIC REGIMEN: * Toujeo 100 units SQ BID * Insulin aspart 60 units SQ w/ breakfast and dinner, 20 units w/ lunch * Jardiance 25mg PO QAM * Metformin 750mg PO daily * HbA1c 07/01/2025: 10.0% ASSESSMENT: 07/10: * The insulin drip ran through the night and AM BSG was 138mg/dL. Patient did not appear to be in DKA/HHS. (AG and CO2 remained normal) so it was decided, after speaking to the provider, to transition him to SQ insulin. Since he has an allergy to Lantus and did not have his Toujeo with him, NPH insulin will be used. Using data from previous admissions, NPH 25 units SQ x 1 was ordered. The drip was continued through lunch and the BSG remained 159mg/dL, so the insulin drip was stopped. * Also using data from previous admissions, a weight based bolus insulin regimen with a stress between 2 and 3 was started and an NPH scale (0, 10, or 15 units depending on BSG) was added. * Overnight checks were also ordered for closer monitoring of hyper/hypoglycemia. 07/09: * Patient is a 65 yo male presenting to hospital 07/09/25 w/ cc of weakness and left facial droop. * Glucose of >600 on arrival. Pharmacy is consulted for glycemic management * Patient reports last dose of insulin was Saturday 07/07 * Note that patient has Lantus allergy * Patient unsure if anyone able to bring Travis in to the hospital - will plan on using NPH when transitioning off drip for now * Recent admission 06/2025 - insulin requirements lower than what he typically requires at home * 60-65 units of basal insulin daily, CF of 20-30, CR of 4-5 during that admission PLAN FOR INPATIENT GLYCEMIC CONTROL: * Hold outpatient diabetes medications * Basal insulin * Insulin drip per hyperglycemia protocol--continued through lunch 07/10. * NPH insulin 25 units SQ x 1 at lunch today and NPH scale at supper (0, 10, or 15 units depending on BSG) * Bolus insulin * NovoLog per scale achs * Goal Range: Low 120 mg/dL - High 1150 mg/dL * Correction Factor: 20 mg/dL/unit * Nutritional / Prandial insulin per carb ratio of 1 unit per 5 grams CHO consumed * *
--- NOTE | 2025-07-10 15:28 | Hospitalist Progress Note ---
Date of Service July 10, 2025 Assessment & Plan (1) Acute metabolic encephalopathy: (2) Diabetes mellitus due to underlying condition, uncontrolled, with hyperglycemia, with long-term current use of insulin: (3) Open wound of both legs with complication: (4) Paroxysmal atrial fibrillation: (5) Noncompliance w/medication treatment due to intermit use of medication: Plan This is a 65 y/o male with insulin-requiring diabetes, chronic HFpEF (EF 60 to 65%, TTE 2024), non-obstructive CAD, PAF on chronic AC with Eliquis, HTN, hyperlipidemia, HCV s/p interferon Rx, and other history as outlined below who presented to the ED today with new confusion and reported left facial droop. Initial work-up included CT head which showed no acute changes, CTA head and neck which were unremarkable. Labs significant for glucose of 513, troponin normal at 12.1, creatinine 0.67. Insulin gtt was started in the ED due to marked hyperglycemia and pt was referred for admission. Suspect pt's transient confusion related to marked hyperglycemia due to noncompliance with medications. #Uncontrolled insulin-requiring type 2 DM #Acute metabolic encephalopathy due to hyperglycemia #Adult Failure to Thrive - pharmacy for glycemic management, appreciate recs - transitioned to subq insulin protocol - BSG per protocol - Neuro checks over nigh - PT/OT evaluations due to reported fall at home - elementary educator and instrumentation designer consults, appreciate recs - check B12, TSH, start thiamine, folic acid - discuss with case management patient difficulty with self care at home #Bilateral LE cellulitis/wounds - Continue levofloxacin as prescribed at discharge last week - Consult wound care nurse #Chronic HFpEF - Continue furosemide/spironolactone - Daily weights - Follow labs #Paroxysmal atrial fibrillation - Continue Eliquis #Non-obstructive CAD - no anginal symptoms at present - Continue outpatiet regimen #BPH - Chronic, continue tamsulosin #Anxiety/Depression - Chronic, continue bupropion/sertraline I spent a total of 50 minutes in direct patient care, including [id number] time with the patient and/or family, reviewing medical records, ordering and reviewing diagnostic tests, and coordinating care with other healthcare providers. This time includes: history taking, physical examination, medical decision making, counseling, ECG interpretation, imaging interpretation, lab interpretation, orders, and education, excluding time spent in the performance of separately billed services. Admission and Anticipated Discharge Date Admission Date: July 09, 2025 Subjective Patient seen and examined at bedside. Patient doing ok today. States he has been having some slightly uncontrollable movements in his arms and legs. Feeling a bit less confused today. Review of Systems Review of Systems: CONSTITUTIONAL: Patient denies fevers, chills, sweats and weight changes. EYES: Patient denies any visual symptoms. EARS, NOSE, AND THROAT: No difficulties with hearing. No symptoms of rhinitis or sore throat. CARDIOVASCULAR: Patient denies chest pains, palpitations, orthopnea and paroxysmal nocturnal dyspnea. RESPIRATORY: No dyspnea on exertion, no wheezing or cough. GI: No nausea, vomiting, diarrhea, constipation, abdominal pain, hematochezia or melena. : No urinary hesitancy or dribbling. No nocturia or urinary frequency. No abnormal urethral discharge. MUSCULOSKELETAL: No myalgias or arthralgias. NEUROLOGIC: confused, movements in arms and legs PSYCHIATRIC: Patient denies problems with mood disturbance. No problems with anxiety. ENDOCRINE: No excessive urination or excessive thirst. DERMATOLOGIC: Patient denies any rashes or skin changes. Physical Exam Physical Exam: Gen: A&O 3 NAD HEENT: NCAT, EOMI, not icteric. External ears normal. No rhinorrhea. Moist mucous membranes. Neck: Supple, full range of motion, no observable masses, No meningeal sign. Lungs: No Respiratory distress. CV: RRR, no edema. Abdomen: Soft, nondistended, No rebound tenderness. MSK: No joint swelling, no redness. Skin: No rashes, petechiae, lesions. Normal color per patient. Neuro: Normal Gait, Grossly intact. Psych: flat affect, slightly confused Results & Data Results & Data Vital Signs (Past 12 Hours) Vital Signs Temp Pulse Pulse Resp BP Pulse Ox O2 Del Method 07/10/25 12:32 36.6 C 62 18 124/76 95 Room Air 07/10/25 08:20 36.6 C 20 117/72 96 Room Air 07/10/25 07:46 68 Laboratory Results -personally reviewed, elevated leukocytosis likely reactionary to uncontrolled diabetes, never had elevated AG, creatinine at baseline Medications Administered Apixaban (Apixaban 5 Mg Tablet) 5 mg PO BID MULU Stop: 08/08/25 20:59 Last Admin: 07/10/25 11:00 Dose: 5 mg Documented By: Admin: 07/09/25 20:48 Dose: 5 mg Documented By: HALINA Ascorbic Acid (Ascorbic Acid 500 Mg Tab) 1,000 mg PO DAILY MULU Stop: 08/09/25 08:59 Last Admin: 07/10/25 11:01 Dose: 1,000 mg Documented By: FAINA Aspirin (Aspirin 81 Mg Ectab) 81 mg PO DAILY MULU Stop: 08/09/25 08:59 Last Admin: 07/10/25 11:01 Dose: 81 mg Documented By: FAINA Bupropion HCl (Bupropion Xl 300 Mg Tabcr) 300 mg PO DAILY M[facility]U Stop: 08/09/25 08:59 Last Admin: 07/10/25 11:01 Dose: 300 mg Documented By: FAINA Cyanocobalamin (Cyanocobalamin (B-12) 500 Mcg Tablet) 1,000 mcg PO DAILY MULU Stop: 08/09/25 08:59 Last Admin: 07/10/25 11:01 Dose: 1,000 mcg Documented By: FAINA Fluticasone Furoate (Fluticasone Furoate 100mcg 14 Puffs/Inhaler) 1 puffs INH DAILY MULU Stop: 08/09/25 08:59 Last Admin: 07/10/25 11:05 Dose: 1 puffs Documented By: FAINA Furosemide (Furosemide 20 Mg Tab) 20 mg PO QAM MULU Stop: 08/09/25 08:59 Last Admin: 07/10/25 11:01 Dose: 20 mg Documented By: FAINA Thiamine HCl 500 mg/ Sodium (Chloride) 55 mls @ 210 mls/hr IV DAILY MULU Stop: 07/15/25 09:16 Last Infusion: 07/10/25 13:02 Dose: Infused Documented By: Admin: 07/10/25 12:06 Dose: 210 mls/hr Documented By: CHANCE Folic Acid 1 mg/ Syringe 10 mls @ 5 mls/min IV QAM MULU Stop: 08/09/25 08:59 Last Admin: 07/10/25 12:06 Dose: 5 mls/min Documented By: CHANCE Insulin Aspart (Insulin Aspart Per Unit Charge) 0 units SC ACHS MULU Stop: 08/09/25 11:59 Last Admin: 07/10/25 13:33 Dose: 11 units Documented By: CHANCE Co-signed By: FAINA Lactobacillus Acidophilus (Advanced Probiotic 625 Mg Capsule) 1,250 mg PO DAILY [facility] Stop: 08/09/25 08:59 Last Admin: 07/10/25 11:00 Dose: 1,250 mg Documented By: FAINA Levofloxacin (Levofloxacin 750 Mg Tab) 750 mg PO DAILY@1100 MULU; Protocol Stop: 07/15/25 11:01 Last Admin: 07/10/25 11:04 Dose: 750 mg Documented By: FAINA Lisinopril (Lisinopril 20 Mg Tab) 20 mg PO DAILY M[facility]U Stop: 08/09/25 08:59 Last Admin: 07/10/25 11:01 Dose: 20 mg Documented By: FAINA Metoprolol Succinate (Metoprolol Succ 50mg Ext Rel Tab) 50 mg PO BID [facility] Stop: 08/08/25 20:59 Last Admin: 07/10/25 11:01 Dose: 50 mg Documented By: Admin: 07/09/25 20:48 Dose: 50 mg Documented By: HALINA Multivitamins/Minerals (Cerovite Adv Formula Tab) 1 tab PO DAILY [facility] Stop: 08/09/25 08:59 Last Admin: 07/10/25 11:00 Dose: 1 tab Documented By: FAINA Sertraline HCl (Sertraline Hcl 100 Mg Tablet) 100 mg PO QAM [facility] Stop: 08/09/25 08:59 Last Admin: 07/10/25 11:00 Dose: 100 mg Documented By: FAINA Spironolactone (Spironolactone 25 Mg Tab) 25 mg PO DAILY [facility] Stop: 08/09/25 08:59 Last Admin: 07/10/25 11:01 Dose: 25 mg Documented By: FAINA Tamsulosin HCl (Tamsulosin Hcl 0.4 Mg Cap) 0.4 mg PO QAM [facility] Stop: 08/09/25 08:59 Last Admin: 07/10/25 11:00 Dose: 0.4 mg Documented By: FAINA (3) Open wound of both legs with complication Encounter type: subsequent encounter Qualified Code(s): S81.801D - Unspecified open wound, right lower leg, subsequent encounter; S81.802D - Unspecified open wound, left lower leg, subsequent encounter
[2025-07-10] MEDS: INSULIN HUMAN NPH SC SCH (17:52)
[2025-07-10] MEDS: INSULIN ASPART PER UNIT CHARGE ONE (21:53)
[2025-07-10 23:07] VITALS: O2SAT 94
[2025-07-11] MEDS: INSULIN ASPART PER UNIT CHARGE SC SCH ×2 (00:07→10:00)
[2025-07-11 06:05] LABS: Hematocrit (blood only) 48.6 % (42.0-52.0); Hemoglobin 16.2 g/dl (14.0-18.0); Mean Corpuscular Hemoglobin 28.1 pg (25.0-34.0); Mean Corpuscular Volume 84.2 fL (80.0-100.0); Platelet Count 240 K/uL (130-400); RDW Standard Deviation 41.6 fL (36.4-46.3); Red Blood Count 5.77 M/uL (4.70-6.10); White Blood Count 11.36 K/ul (4.8-10.8)
[2025-07-11 06:17] LABS: Anion Gap 6.0 (3-11); Blood Urea Nitrogen 23.0 mg/dl (6-23); Calcium 8.8 mg/dl (8.6-10.3); Carbon Dioxide 26.0 mmol/L (21-32); Chloride 104.0 mmol/L (98-107); Creatinine Clr Calc Pharmacy 127.2 ml/min; Glucose 170.0 mg/dl (70-99(Fasting)); Potassium 4.2 mmol/L (3.5-5.1); Sodium 136.0 mmol/L (136-145)
[2025-07-11 07:35] VITALS: BP 117/72; RESP 22; TEMP 97.3
[2025-07-11] MEDS: INSULIN HUMAN NPH SC SCH (10:04)
--- NOTE | 2025-07-11 10:06 | Discharge Summary ---
Discharge Summary Date of Service July 11, 2025 Principal Dx & Hospital Course #1 = Principal Diagnosis (1) Acute metabolic encephalopathy: (2) Diabetes mellitus due to underlying condition, uncontrolled, with hyperglycemia, with long-term current use of insulin: (3) Open wound of both legs with complication: (4) Paroxysmal atrial fibrillation: (5) Noncompliance w/medication treatment due to intermit use of medication: Plan Patient 65-year-old gentleman presenting the emergency room with acute delirium and metabolic encephalopathy. Extensive workup in the emergency room and during hospitalization ruled out acute stroke. He was noted to be severely hyperglycemic. Patient reported that he stopped or had not taken his insulin over the last couple days because he had forgot it when he traveled to a friend's house. He also is very noncompliant with his diet eating [employer] peanut butter cups and drinking regular soda. Patient was given fluid IV hydration initially started on insulin drip. Transition to subcutaneous insulin. He sugars became significantly more controlled. His encephalopathy cleared. Other vital signs and laboratory studies were stable. Diabetes education worked with him and reinforced his need for compliance with his insulin therapies. He was continued on his oral antibiotic for cellulitis of the legs and leg wounds that were present on admission and that he was taking prior to admission. He will complete a course of those antibiotics as previously prescribed. Will coordinate outpatient follow-up with his PCP and wound clinic Notes For Next Care Provider May need to consider a more simple regimen of insulin for better compliance. Continue to have patient follow-up with nurse educator Medication Changes From Visit None Admission HPI Per Admitting Provider This is a 65 y/o male with insulin-requiring diabetes, chronic HFpEF (EF 60 to 65%, TTE 2024), non-obstructive CAD, PAF on chronic AC with Eliquis, HTN, hyperlipidemia, HCV s/p interferon Rx, and other history as outlined below who presented to the ED today with new confusion and reported left facial droop. Stroke alert was called. Initial work-up was negative. Pt was recently admitted to [facility] 07/01/25-07/06/25 for bilateral LE cellulitis and recurrent bilateral LE wounds. Pt was initially placed on cefepime and daptomycin but this was changed to levofloxacin after wound culture grew serratia. Pt was seen by ID who recommended levofloxacin for 14 days. Pt was also to follow-up with wound care as an outpatient. Pt has had multiple admission for similar complaints over the last several months including an admission at the end of February 2025 for similar presentation of new facial droop and concern for possible CVA at that time, his symptoms were determined to be secondary to acute metabolic encephalopathy due to medication non-compliance. CT and MRI were negative for acute ischemia. Since being discharged, pt reports that he has not been taking his medication as prescribed as he went to visit friends near [place] and didn't take his meds with him but stayed overnight and came home last night. 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 He also reports that he didn't take any insulin yesterday or today. This morning, he reports that he woke up and felt confused and "out of it" and was stumbling around, which he reports is new for him. He states that he had a fall on Wednesday after he was discharged but no LOC or head injury. He continues to use (smoke) meth but hasn't used since before last admission (~2 weeks). He mentioned to the ED nurse that he regularly [place]. Admission Exam Per Admitting Provider See H&P Discharge Exam Constitutional: Alert HEENT: Mucous membranes moist. Lungs: Clear to auscultation, decreased, no wheezes rales or rhonchi CV: S1-S2, regular Abdomen: Soft, nontender, nondistended Extremities: Trace to +1 pretibial edema. Lower extremity wounds with clean dressings Neuro: No focal deficits Psych: Cooperative, normal mood Updated Medication List Medication Instructions Recorded Confirmed Type ascorbic acid (vitamin C) 500 mg 1,000 mg PO DAILY 09/21/22 07/09/25 History tablet (Vitamin C) multivitamin with minerals 1 tab PO DAILY 09/21/22 07/09/25 History (Multiple Vitamin-Minerals tablet) lisinopril 20 mg tablet 20 mg PO DAILY 10/10/23 07/09/25 History sertraline 100 mg tablet 100 mg PO QAM 10/10/23 07/09/25 History albuterol sulfate 90 mcg/actuation 90 mcg inhalation Q4H PRN Wheezing 06/06/24 07/09/25 History aerosol inhaler fluticasone furoate 100 100 mcg inhalation DAILY 08/05/24 07/09/25 History mcg/actuation blister powder for inhalation (Arnuity Ellipta) metoprolol succinate 50 mg 50 mg PO BID #60 tabs 12/13/24 07/09/25 Rx tablet,extended release 24 hr insulin aspart U-100 100 unit/mL 60 unit subcut TIDWMEAL 12/15/24 07/09/25 History (3 mL) subcutaneous pen nitroglycerin 0.4 mg sublingual 0.4 mg sublingual DIRECTED PRN 02/28/25 07/09/25 History tablet Chest Pain tamsulosin 0.4 mg capsule 0.4 mg PO QAM 02/28/25 07/09/25 History Bacillus coagulans-inulin 1 1 cap PO DAILY 03/02/25 07/09/25 History billion cell-250 mg capsule bupropion HCl 300 mg 24 hr tablet, 300 mg PO DAILY 03/02/25 07/09/25 History extended release cinnamon bark 500 mg capsule 500 mg PO DAILY ##0 03/02/25 07/09/25 History (Cinnamon) metformin 750 mg tablet,extended 750 mg PO DAILY #30 tabs 03/06/25 07/09/25 Rx release 24 hr L.acidop,casei,lactis,rham-B.lact,[place] 1 cap PO DAILY #30 caps 03/09/25 07/09/25 Rx 625 mg (10 billion cell) capsule (Advanced Probiotic) spironolactone 25 mg tablet 25 mg PO DAILY 04/13/25 07/09/25 History apixaban 5 mg tablet (Eliquis) 5 mg PO BID #74 tabs 04/21/25 07/09/25 Rx aspirin 81 mg chewable tablet 81 mg PO DAILY 06/02/25 07/09/25 History cyanocobalamin (vitamin B-12) 1,000 mcg PO DAILY 06/27/25 07/09/25 History 1,000 mcg tablet,extended release (Vitamin B-12 ER) levofloxacin 750 mg tablet 750 mg PO QAM #9 tabs 07/06/25 07/09/25 Rx empagliflozin 25 mg tablet 25 mg PO QAM #30 tabs 07/11/25 Rx (Jardiance) furosemide 20 mg tablet (Lasix) 40 mg (2 x 20 mg) PO QAM #60 tabs 07/11/25 Rx insulin glargine U-300 conc 300 100 unit (0.3333 mL) subcut BID #6 07/11/25 Rx unit/mL (3 mL) subcutaneous pen mL (Toujeo Max U-300 SoloStar) Hospital Stay Data Consultations 07/09/25 13:14 ED Decision to Admit Stat Diagnostic Imagining Performed 07/09/25 11:56 CT angio head w con Stat CT angio neck with con Stat CT head/brain wo con Stat 07/09/25 14:46 MRI Brain [MR brain wo con] Routine Reviewed imaging, laboratory and diagnostic studies. Pertinent findings as below. WBCs 11.3 Hemoglobin 16.2 Platelets of 240 Electrolytes within normal range Creatinine 0.75 Hemoglobin A1c 9.8% actually this is slightly improved from just a few days ago and improved from earlier this year. MRI of the brain showed no evidence of acute ischemic event Pending Results Patient Have Any Pending Studies at Discharge: No Discharge Instructions Given to Patient (Per Discharging Provider) It is critical that you take your diabetes medications as prescribed. Follow diabetic diet Continue to discuss treatment options for diabetes with your PCP Total Time Total Time Spent Total Time Spent (In Minutes): 35
[2025-07-11 12:33] VITALS: PULSE 61
== END 2025-07-11 10:43 | disposition home or self-care (01) | DRG 637 ==
LOC: ED 11:29 → 4W 13:51 → SUATTDRO 13:51 → 4W 16:31

== ENCOUNTER 2025-07-21 10:24 | Observation (INO) ==
[2025-07-21 11:40] LABS: Hematocrit (blood only) 51.1 % (42.0-52.0); Hemoglobin 17.1 g/dl (14.0-18.0); Immature Granulocytes # (auto) 0.10 K/uL (0.01-0.20); Immature Granulocytes % (auto) 1.0 %; Mean Corpuscular Hemoglobin 28.4 pg (25.0-34.0); Mean Corpuscular Volume 84.7 fL (80.0-100.0); Platelet Count 227 K/uL (130-400); RDW Standard Deviation 41.1 fL (36.4-46.3); Red Blood Count 6.03 M/uL (4.70-6.10); White Blood Count 10.14 K/ul (4.8-10.8)
--- NOTE | 2025-07-21 11:46 | Emergency Department Note ---
Impression & Plan Acute lumbar back pain, Unable to care for self, Hyperglycemia ED Provider Note CHIEF COMPLAINT: Continued left-sided low back pain x 1 week HISTORY OF PRESENT ILLNESS: Patient is a 65-year-old male with past medical history significant for poorly controlled diabetes, chronic venous insufficiency of the lower legs with open wounds, diabetic ulcer of the left great toe, depression, paroxysmal atrial fibrillation on Eliquis, morbid obesity, depression, hypertension, hepatitis C, among other chronic medical problems who presents to the emergency department via EMS for evaluation of left-sided low back pain. This is the patient's fourth emergency department valuation in the last 3 weeks. He was admitted 2 times previously. Patient states that his back pain started over a week ago. He sleeps in a recliner, states that he woke up overnight to urinate and when he tried to get up out of the recliner, he had a sharp pain in the left low back. He was seen in the emergency department at that time, on 07/12, for his back pain. He had blood work, urinalysis and a CT scan of the abdomen and pelvis. He was treated with IV morphine. Ultimately, workup was unremarkable save for hyperglycemia, and he was discharged with Percocet. Patient states that his back pain has continued. It is located in the left low back and does not radiate. It is worse with movement. Initially patient reported that he has not done anything for his back pain, but then states that he saw his primary care provider, Dr. Fofana earlier this week and was given a prescription for a muscle relaxer, which he took a few doses of without relief. Patient reportedly saw Dr. He was placed on cephalexin for concern over infection involving the lower extremities. The patient has been taking the antibiotic as prescribed. He saw wound care as scheduled on 07/19, 2 days ago, and dressings were changed. As he is able to drive, he is now going to go to wound care 3 days a week for dressing changes. Patient denies any radiation of the pain into his buttock or left leg. No urinary or bladder incontinence. Patient reports that because of his back pain, he has not been able to take care of himself. He cannot prepare foods, and eat his meals. He is not able to perform wound care on his lower extremities. He has a Dexcom monitor, he also has the ability to do fingersticks, but apparently was having problems with either his Dexcom readings or his glucometer today and was getting some reading errors. He states that when he was at the office a couple days ago, Dr. Fofana mentioned rehab which he initially declined, but now he is interested. REVIEW OF SYSTEMS: Review of systems as per HPI. All other systems reviewed were negative. 10 systems reviewed. PMH: External medical records are reviewed and summarized as above/below. See Problem List. SOCIAL HISTORY: Patient lives at home by himself. PHYSICAL EXAM: Vital Signs: Reviewed Nurse's notes. CONSTITUTIONAL: Obese 65-year-old male who is awake and alert and laying on the gurney in no acute distress. EYES: Pupils equal, round, reactive to light and accommodation. EOMs intact without nystagmus. Sclera are anicteric. ENT: Tympanic membranes intact, with normal landmarks. External canals are clear. Oral and nasopharynx are clear. Mucous membranes are moist, no lesions, tongue and gums appear normal. CARDIOVASCULAR: Regular rate and rhythm. Peripheral pulses easy to palpable. RESPIRATORY: Breath sounds equal and clear to auscultation. GI: Bowel sounds are present. Abdomen is soft, nontender, nondistended. Dexcom in the mid abdomen. MUSCULOSKELETAL: Tenderness to palpation in the left lumbar paraspinous muscle distribution, extending out the left PSIS. No pain over the spinous processes of the lumbar spine. No erythema signs of trauma to the back. Full range of motion of extremities x 4 with good strength. Chronic venous stasis changes noted in the bilateral lower extremities. Multiple Optifoam dressings present over wounds, which were not removed. There is some mild surrounding erythema, but no overt cellulitic changes. No lymphangitic streaking. No pitting edema. NEUROLOGICAL: Alert, oriented, and cooperative. Cranial nerves, sensation and strength grossly intact. EMERGENCY DEPARTMENT COURSE: The patient was seen and assessed as above. External medical records are reviewed. Patient was admitted to our facility from 07/01-07/06 for bilateral lower extremity cellulitis, then again at 07/09 - 07/11 for hyperglycemia and confusion. He was then back in the ED for his back pain on 07/12 and discharged. He was at his PCP office with Dr. Fofana 07/17, this note was reviewed from the [employer] system. Lastly, was with Wound Care 07/19, 2 days ago. He returns to the continued complaints of left-sided low back pain. He has not been able to manage his blood sugars while at home. He has not been able to change his lower extremity dressings. He he states that he does not feel that he can continue to take care of himself at home safely. IV lock was initiated and laboratory studies were collected. He was hydrated with a liter bolus of normal saline solution. Lidoderm patch was applied to painful area on back. Lumbar spine x-rays were obtained. Case reviewed with attending physician, Dr. Coreas who agrees with the ED workup. Diagnostics, as interpreted by me: Laboratory studies: Normal white count at 10,100, no left shift. No anemia. BSG 301 on fingerstick in the ED. Sodium 133, potassium 4.9 chloride 97, carbon oxide 32, BUN 17 and creatinine 0.63. Anion gap is normal. No transaminitis. ECG: Normal sinus rhythm 83 bpm, no acute ischemic changes, no change on review of prior EKG. Cardiac monitoring: An order was placed for continuous cardiac monitoring. The monitor shows a NSR at a rate of 83 per my interpretation. Imaging studies: Degenerative changes throughout the lumbar spine, with no occult acute fracture. All laboratory and diagnostic imaging studies were reviewed with Dr. Coreas, and reviewed with the patient. Patient discussed with assistant center manager as well. Overall, patient nontoxic in appearance. Unfortunately, he has several acute medical issues that he is having difficulty managing, primarily due to his left- sided low back pain. Pain is actually in nature, reproducible on exam and with movement, and I suspect is more muscular/ligamentous. He does not have any findings that are concerning for acute cord compression, cauda equina syndrome, epidural abscess or hematoma. His presentation did not seem to warrant emergent MRI in the ED today. Rehab placement was previously proposed to the patient, and while initially reluctant, he is now interested in pursuing this. In order to be placed in a rehab facility, he will need to be admitted to our facility to initiate placement. [facility]. Chronic conditions affecting care: Obesity, insulin-dependent diabetes, poorly controlled, peripheral vascular disease, depression, atrial fibrillation, diabetic neuropathy, noncompliance, Differential diagnosis: Hyperglycemia, DKA, cellulitis, wound infection, sepsis, lumbar muscular strain, lumbar compression fracture, degenerative disc disease, disc herniation, among others. Past Med/Surg History Problem List (Updated 07/21/25 @ 15:34 by Amena Dee) Hyperglycemia (Acute) Unable to care for self (Acute) Acute lumbar back pain (Acute) Back pain (Acute) Noncompliance with medications (Acute) Stroke-like symptom (Acute) Acute hyperglycemia (Acute) Acute metabolic encephalopathy Open wound of both legs with complication Wound of left lower extremity Diabetic ulcer of left great toe (Acute) Acute hypoxemic respiratory failure Hyperglycemia due to diabetes mellitus (Acute) Diabetic foot ulcer (Acute) Diabetes mellitus due to underlying condition, uncontrolled, with hyperglycemia, with long-term current use of insulin Major depressive disorder Chronic venous insufficiency (Acute) Venous ulcers of both lower extremities (Acute) Paroxysmal atrial tachycardia Paroxysmal atrial fibrillation Methamphetamine abuse PAC (premature atrial contraction) Diabetic peripheral neuropathy (Acute) Diabetic neuropathic arthritis Unable to care for self (Acute) Ambulatory dysfunction (Acute) Noncompliance w/medication treatment due to intermit use of medication BPH (benign prostatic hyperplasia) Anxiety and depression Morbid obesity with BMI of 40.0-44.9, adult ALEJANDRA (obstructive sleep apnea) Hyperglycemia (Acute) Nonischemic cardiomyopathy (Chronic) "prior EF 30% per Epic records. echo 02/2015- EF 40-45%" DM type 2 (diabetes mellitus, type 2) (Chronic) Hepatitis C (Chronic) Hypertension (Chronic) Hyperglycemia due to type 2 diabetes mellitus (Acute) Polyneuropathy Peripheral vascular disease Depression Encephalopathy Varicose veins of bilateral lower extremities with other complications Morbid obesity Medical History H/O drug abuse Colon polyp "TVA polyp on colonoscopy 09/2014" H/O toxoplasmosis H/O TB (tuberculosis) Closed head injury Peripheral neuropathy Acute dehydration Dysequilibrium Hepatitis C Diabetes mellitus, type 2 Depression Anxiety Hypertension Surgical History S/P cardiac cath "for abnormal stress test. cath 03/18/2015-essentially normal coronaries with no obstructive disease " H/O colonoscopy "11/2015- diverticulosis" History of umbilical hernia repair x2 History of tooth extraction History of wisdom tooth extraction Family History Mother Family history of diabetes mellitus Father Family history of diabetes mellitus Other No family history of adverse response to anesthesia Social History Smoking Status: Never smoker Tobacco Type: Cigarettes Cigarettes Per Day: Says he occasionally will smoke a cigar.; Second Hand Exposure: No; Do You Dip or Chew Tobacco: No; Hx Alcohol Use: Yes Alcohol type: beer, wine and hard liquor Alcohol Intake Frequency: Monthly or Less Hx Substance Use: Yes Non-Prescribed Medications: Methamphetamines Last Used Substance: Days (ago) Last Used Substance Other:: "A couple of weeks ago" Substance Use Type Other:: MDMA, speed Preferred Language: Greek Communication Ability: Effective Visual Impairment: Severely Limited Hearing Ability: Normal Gill Tender Required: No Beliefs That Will Affect Care: None marital status: Single Current Living Situation: Alone Current Living Situation Comment: lives alone Feels Safe at Home: No Is there a partner from a previous relationship who is making you feel unsafe now?: No Diet: regular caffeine: Yes Gender Identity: Male Assistive Devices: None Allergies Allergies Allergy/AdvReac Type Severity Reaction Status Date / Time shellfish derived Allergy Severe Swelling Verified 07/19/25 15:01 amoxicillin Allergy Intermediate HIVES Verified 07/19/25 15:01 clavulanic acid Allergy Intermediate HIVES Verified 07/19/25 15:01 permethrin Allergy Intermediate swelling Verified 07/19/25 15:01 shrimp Allergy Intermediate SWELLS Verified 07/19/25 15:01 sulfamethoxazole Allergy Unknown CAN'T Verified 07/19/25 15:01 [From Bactrim] REMEMBER trimethoprim [From Bactrim] Allergy Unknown CAN'T Verified 07/19/25 15:01 REMEMBER insulin glargine AdvReac Severe CHF PER Verified 07/19/25 15:01 [From Lantus U-100 Insulin] [facility] Home Meds Home Medications Medication Instructions Recorded Confirmed ascorbic acid (vitamin C) 500 mg 1,000 mg PO DAILY 09/21/22 07/21/25 tablet (Vitamin C) multivitamin with minerals 1 tab PO DAILY 09/21/22 07/21/25 (Multiple Vitamin-Minerals tablet) lisinopril 20 mg tablet 20 mg PO DAILY 10/10/23 07/21/25 sertraline 100 mg tablet 100 mg PO QAM 10/10/23 07/21/25 albuterol sulfate 90 mcg/actuation 90 mcg inhalation Q4H PRN Wheezing 06/06/24 07/21/25 aerosol inhaler fluticasone furoate 100 100 mcg inhalation DAILY 08/05/24 07/21/25 mcg/actuation blister powder for inhalation (Arnuity Ellipta) insulin aspart U-100 100 unit/mL 60 unit subcut TIDWMEAL 12/15/24 07/21/25 (3 mL) subcutaneous pen (Novolog FlexPen U-100 Insulin aspart) nitroglycerin 0.4 mg sublingual 0.4 mg sublingual DIRECTED PRN 02/28/25 07/21/25 tablet Chest Pain tamsulosin 0.4 mg capsule 0.4 mg PO QAM 02/28/25 07/21/25 bupropion HCl 300 mg 24 hr tablet, 300 mg PO DAILY 03/02/25 07/21/25 extended release cinnamon bark 500 mg capsule 500 mg PO DAILY ##0 03/02/25 07/21/25 (Cinnamon) spironolactone 25 mg tablet 25 mg PO DAILY 04/13/25 07/21/25 aspirin 81 mg chewable tablet 81 mg PO DAILY 06/02/25 07/21/25 cyanocobalamin (vitamin B-12) 1,000 mcg PO DAILY 06/27/25 07/21/25 1,000 mcg tablet,extended release (Vitamin B-12 ER) cephalexin 500 mg capsule 500 mg PO Q12H 07/19/25 07/21/25 Previous Rx's Medication Instructions Recorded metoprolol succinate 50 mg 50 mg PO BID #60 tabs 12/13/24 tablet,extended release 24 hr metformin 750 mg tablet,extended 750 mg PO DAILY #30 tabs 03/06/25 release 24 hr L.acidop,casei,lactis,rham-B.lact,guanakito 1 cap PO DAILY #30 caps 03/09/25 625 mg (10 billion cell) capsule (Advanced Probiotic) apixaban 5 mg tablet (Eliquis) 5 mg PO BID #74 tabs 04/21/25 empagliflozin 25 mg tablet 25 mg PO QAM #30 tabs 07/11/25 (Jardiance) furosemide 20 mg tablet (Lasix) 40 mg (2 x 20 mg) PO QAM #60 tabs 07/11/25 insulin glargine U-300 conc 300 100 unit (0.3333 mL) subcut BID #6 07/11/25 unit/mL (3 mL) subcutaneous pen mL (Toujeo Max U-300 SoloStar) Results & Data (ED) Vital Signs Vital Signs - 24 hr 07/21/25 10:36 07/21/25 10:43 07/21/25 10:43 Temperature 36.8 C Temperature Source Oral Pulse Rate 84 84 Pulse Rate [Right Finger] 84 Pulse Rhythm [Right Finger] Pulse Strength [Right Finger] Respiratory Rate 18 18 Respiratory Effort / Characteristics Respiratory Depth Respiratory Pattern Blood Pressure 165/85 H Blood Pressure [Right Arm] 158/85 H Blood Pressure Mean 111 Blood Pressure Mean [Right Arm] 109 Blood Pressure Position [Right Arm] Pulse Oximetry 92 92 Oxygen Delivery Method Room Air Room Air Sepsis Recent Fever Within 48 Hours No Sepsis New/Unexplained Change in Mental Status No Sepsis Action Taken by Nursing No Action Required 07/21/25 12:17 07/21/25 14:00 07/21/25 14:39 Temperature Temperature Source Pulse Rate 83 Pulse Rate [Right Finger] 81 86 Pulse Rhythm [Right Finger] Regular Regular Pulse Strength [Right Finger] Normal Normal Respiratory Rate 19 28 H Respiratory Effort / Characteristics Spontaneous Spontaneous Respiratory Depth Normal Normal Respiratory Pattern Regular Blood Pressure Blood Pressure [Right Arm] 158/94 H 169/102 H Blood Pressure Mean Blood Pressure Mean [Right Arm] 115 124 Blood Pressure Position [Right Arm] Sitting Sitting Pulse Oximetry 96 90 Oxygen Delivery Method Room Air Room Air Sepsis Recent Fever Within 48 Hours Sepsis New/Unexplained Change in Mental Status Sepsis Action Taken by Group Home Medications Current Medication List: was personally reviewed by me Laboratory Data Attestation: I reviewed the patient's lab results. 07/21/25 10:37 07/21/25 10:37 Lab Results 07/21/25 07/21/25 07/21/25 Range/Units 10:37 11:44 12:49 WBC 10.14 (4.8-10.8) K/ul RBC 6.03 (4.70-6.10) M/uL Hgb 17.1 (14.0-18.0) g/dl Hct 51.1 (42.0-52.0) % MCV 84.7 (80.0-100.0) fL MCH 28.4 (25.0-34.0) pg MCHC 33.5 (32.0-36.0) g/dL RDW Std Deviation 41.1 (36.4-46.3) fL RDW Coeff of Marc 13.3 (11.5-14.5) % Plt Count 227 (130-400) K/uL MPV 9.6 (9.4-12.4) fL Immature Gran % (Auto) 1.0 % Neut % (Auto) 59.9 % Lymph % (Auto) 28.2 % Dare % (Auto) 6.8 % Eos % (Auto) 2.8 % Baso % (Auto) 1.3 % Neut # (Auto) 6.08 (1.40-6.50) K/uL Lymph # (Auto) 2.86 (1.20-3.40) K/uL Dare # (Auto) 0.69 H (0.11-0.59) K/uL Eos # (Auto) 0.28 (0.00-0.50) K/uL Baso # (Auto) 0.13 (0.00-0.20) K/uL Immature Gran # (Auto) 0.10 (0.01-0.20) K/uL Sodium 133 L (136-145) mmol/L Potassium 4.9 (3.5-5.1) mmol/L Chloride 97 L (98-107) mmol/L Carbon Dioxide 32 (21-32) mmol/L Anion Gap 4 (3-11) BUN 17 (6-23) mg/dl Creatinine 0.63 (0.6-1.4) mg/dl Est Cr Clr Drug Dosing 154.3 ml/min eGFR 106.88 BUN/Creatinine Ratio 27.0 H (10-20) Glucose 349 H* (70-99(Fasting)) mg/dl POC Glucose 301 H* 301 H* (70-99) mg/dl Calcium 9.2 (8.6-10.3) mg/dl Magnesium 1.8 (1.7-2.4) mg/dl Total Bilirubin 0.8 (0.2-1.0) mg/dl AST 29 (13-39) U/L ALT 24 (7-52) U/L Alkaline Phosphatase 81 (34-104) U/L Total Protein 6.7 (6.0-8.3) gm/dl Albumin 3.6 (3.4-5.0) gm/dl Globulin 3.1 (2.5-4.0) gm/dl Albumin/Globulin Ratio 1.2 (0.9-2) 07/21/25 07/21/25 Range/Units 13:23 13:30 WBC (4.8-10.8) K/ul RBC (4.70-6.10) M/uL Hgb (14.0-18.0) g/dl Hct (42.0-52.0) % MCV (80.0-100.0) fL MCH (25.0-34.0) pg MCHC (32.0-36.0) g/dL RDW Std Deviation (36.4-46.3) fL RDW Coeff of Marc (11.5-14.5) % Plt Count (130-400) K/uL MPV (9.4-12.4) fL Immature Gran % (Auto) % Neut % (Auto) % Lymph % (Auto) % Dare % (Auto) % Eos % (Auto) % Baso % (Auto) % Neut # (Auto) (1.40-6.50) K/uL Lymph # (Auto) (1.20-3.40) K/uL Dare # (Auto) (0.11-0.59) K/uL Eos # (Auto) (0.00-0.50) K/uL Baso # (Auto) (0.00-0.20) K/uL Immature Gran # (Auto) (0.01-0.20) K/uL Sodium (136-145) mmol/L Potassium (3.5-5.1) mmol/L Chloride (98-107) mmol/L Carbon Dioxide (21-32) mmol/L Anion Gap (3-11) BUN (6-23) mg/dl Creatinine (0.6-1.4) mg/dl Est Cr Clr Drug Dosing ml/min eGFR BUN/Creatinine Ratio (10-20) Glucose (70-99(Fasting)) mg/dl POC Glucose 301 H* 282 H (70-99) mg/dl Calcium (8.6-10.3) mg/dl Magnesium (1.7-2.4) mg/dl Total Bilirubin (0.2-1.0) mg/dl AST (13-39) U/L ALT (7-52) U/L Alkaline Phosphatase (34-104) U/L Total Protein (6.0-8.3) gm/dl Albumin (3.4-5.0) gm/dl Globulin (2.5-4.0) gm/dl Albumin/Globulin Ratio (0.9-2) Administered Medications Discontinued Medications Sodium Chloride (Nss) 1,000 mls @ 999 mls/hr IV .Q1H1M MULU Stop: 07/21/25 13:02 Last Admin: 07/21/25 12:36 Dose: 999 mls/hr Documented By: moiz Lidocaine (Lidocaine 5% 1 Patch) 1 patch TD NOW STA Stop: 07/21/25 11:28 Last Admin: 07/21/25 12:35 Dose: 1 patch Documented By: moiz Imaging Data Attestation: I personally reviewed and interpreted this imaging study as follows: Radiologist's Impression: Lumbar Spine X-Ray 07/21/25 11:27 Clinical history: Pain Technique: 5 views of the lumbar spine are submitted for review Findings: The lumbar vertebrae are in normal alignment with no listhesis seen. No fracture is identified. There are degenerative spurs from T11-12 through L4-5. There is facet osteoarthritis at L4-5 and L5-S1. No focal osseous lesion is seen. The bowel gas pattern appears unremarkable. Impression: 1. Multilevel degenerative disc disease 2. Lower lumbar facet osteoarthritis Electronically signed by Sukhjinder Leonardo 07-21-2025 12:42 PM Discharge Plan Visit Data Chief Complaint: Back Injury/Pain Stated Complaint: BACK PAIN ED Provider: Vasiliy Coreas ED Midlevel Provider: Amena Dee Discharge Problem: Acute lumbar back pain, Unable to care for self, Hyperglycemia Patient Disposition: Admitted As Inpatient Condition: Fair Forms Stand Alone Forms: My [employer] Prescriptions Prescriptions: No Action cephalexin 500 mg capsule 500 mg PO Q12H ascorbic acid (vitamin C) [Vitamin C] 500 mg Tablet 1,000 mg PO DAILY Multiple Vitamin-Minerals Tablet 1 tab PO DAILY lisinopril 20 mg tablet 20 mg PO DAILY Hold Instructions: Resume on 06/15/25. until seen by primary care doctor sertraline 100 mg tablet 100 mg PO QAM albuterol sulfate 90 mcg/actuation HFA aerosol inhaler 90 mcg INHALATION Q4H PRN (Reason: Wheezing) metoprolol succinate 50 mg Tablet Extended Release 24 Hr 50 mg PO BID Qty: 60 0RF Patient Comments: Last filled 02/2025 x30 day supply. Pt states still taking. 07/01/25 tamsulosin 0.4 mg capsule 0.4 mg PO QAM nitroglycerin 0.4 mg Tablet, Sublingual 0.4 mg sublingual DIRECTED MDD 3 PRN (Reason: Chest Pain) bupropion HCl 300 mg tablet extended release 24 hr 300 mg PO DAILY Patient Comments: Last filled 07/2024 x90 day supply. Pt states still taking. 07/01/25 cinnamon bark [Cinnamon] 500 mg Capsule 500 mg PO DAILY Qty: 0 Rx Instructions: CG metformin 750 mg tablet extended release 24 hr 750 mg PO DAILY Qty: 30 0RF Patient Comments: Last filled 02/2025 x30 day supply. Pt states still taking. 07/01/25 Advanced Probiotic 625 mg (10 billion cell) Capsule 1 cap PO DAILY Qty: 30 0RF spironolactone 25 mg Tablet 25 mg PO DAILY Hold Instructions: Resume on 06/15/25. until seen by primary care doctor Eliquis 5 mg Tablet 5 mg PO BID Qty: 74 0RF furosemide [Lasix] 20 mg tablet 40 mg PO QAM Qty: 60 0RF Jardiance 25 mg tablet 25 mg PO QAM Qty: 30 0RF insulin glargine U-300 conc [Toujeo Max U-300 SoloStar] 300 unit/mL (3 mL) insulin pen 100 unit SUBCUT BID Qty: 6 1RF fluticasone furoate [Arnuity Ellipta] 100 mcg/actuation blister with device 100 mcg INHALATION DAILY insulin aspart U-100 [Novolog FlexPen U-100 Insulin] 100 unit/mL (3 mL) insulin pen 60 unit SUBCUT TIDWMEAL Patient Comments: Last filled 07/2024 x90 day supply. Pt states still taking. 07/01/25 Rx Instructions: 60u with breakfast, 20u w/lunch, 60u with supper aspirin 81 mg Tablet,Chewable 81 mg PO DAILY cyanocobalamin (vitamin B-12) [Vitamin B-12] 1,000 mcg tablet extended release 1,000 mcg PO DAILY Referrals Referrals: Willam Fofana, [Primary Care Provider] -
[2025-07-21 11:51] LABS: Alanine Aminotransferase 24.0 U/L (7-52); Albumin Globulin Ratio 1.2 (0.9-2); Albumin Level 3.6 gm/dl (3.4-5.0); Alkaline Phosphatase 81.0 U/L (34-104); Anion Gap 4.0 (3-11); Bilirubin,Total 0.8 mg/dl (0.2-1.0); Blood Urea Nitrogen 17.0 mg/dl (6-23); Calcium 9.2 mg/dl (8.6-10.3); Carbon Dioxide 32.0 mmol/L (21-32); Chloride 97.0 mmol/L (98-107); Creatinine Clr Calc Pharmacy 154.3 ml/min; Globulin 3.1 gm/dl (2.5-4.0); Glucose 349.0 mg/dl (70-99(Fasting)); Magnesium 1.8 mg/dl (1.7-2.4); Potassium 4.9 mmol/L (3.5-5.1); Sodium 133.0 mmol/L (136-145); Total Protein 6.7 gm/dl (6.0-8.3)
[2025-07-21] MEDS: LIDOCAINE 5% 1 PATCH TD STA (12:35)
[2025-07-21] MEDS: SODIUM CHLORIDE 0.9% 1,000 ML IV SCH (12:36)
--- NOTE | 2025-07-21 12:42 | XRay Report ---
Clinical history: Pain Technique: 5 views of the lumbar spine are submitted for review Findings: The lumbar vertebrae are in normal alignment with no listhesis seen. No fracture is identified. There are degenerative spurs from T11-12 through L4-5. There is facet osteoarthritis at L4-5 and L5-S1. No focal osseous lesion is seen. The bowel gas pattern appears unremarkable. Impression: 1. Multilevel degenerative disc disease 2. Lower lumbar facet osteoarthritis Electronically signed by Sukhjinder Leonardo 07-21-2025 12:42 PM
--- NOTE | 2025-07-21 14:02 | History & Physical Report ---
Date of Service July 21, 2025 Assessment & Plan (1) Back pain: (2) Noncompliance with medications: (3) Open wound of both legs with complication: (4) Diabetes mellitus due to underlying condition, uncontrolled, with hyperglycemia, with long-term current use of insulin: (5) Venous ulcers of both lower extremities: (6) Noncompliance w/medication treatment due to intermit use of medication: (7) Morbid obesity with BMI of 40.0-44.9, adult: (8) ALEJANDRA (obstructive sleep apnea): (9) Nonischemic cardiomyopathy: (10) Hypertension: (11) Peripheral vascular disease: Plan Uncontrolled insulin-requiring type 2 DM Adult Failure to Thrive - pharmacy for glycemic management, appreciate recs - PT/OT evaluations for placement/rehab due to multiple chronic issues and inability to care for self at home - extension educator and broadband installer consults, appreciate recs - cont thiamine, folic acid - Novolog 60 U TID with meals, Tujeo 100 mg QAM and HS. Pt reports not using his short acting insulin at lunch time at home normally. He expresses issues with not wanting to "stick himself more" Bilateral LE cellulitis/wounds - Continue keflex as prescribed - Consult wound care nurse Chronic HFpEF - Continue furosemide/spironolactone - give first dose today as he did not get them - Daily weights - Follow labs Paroxysmal atrial fibrillation - Continue Eliquis Non-obstructive CAD - no anginal symptoms at present - Continue outpatient regimen with metoprolol succinate 50 mg BID, lasix, spironolactone, asa 81 mg daily, lisinopril BPH - Chronic, continue tamsulosin Anxiety/Depression - Chronic, continue bupropion/sertraline Hx of Methamphetamine Use - Smoking it, last use was 4 weeks ago. Encourage cessation. He does not see therapist, counselor, and does not participate in drug rehab program at this time and would greatly benefit from such. - Started using at age 19 via all methods including snorting, injection, and most recently smoking. DVT ppx: scds, eliquis BID Lines : PIV x 1 Diet: HH/DM CODE: DNR/DNI Dispo: From home, likely to remain in the hospital x 1-2 days A total of 75 minutes were spent with greater than 50% of that time face to face with the patient, personally reviewing all current laboratories, imaging studies, past medication reconciliation, outpatient chart review, and discussion with specialists to collaborate care for the patient with attending. Please see attending documentation for corrections and/or additions. History of Present Illness Chief Complaint: Inability to care for self at home Primary Care Provider: Willam Fofana DO This is a 65 y/o male with insulin-requiring diabetes, chronic HFpEF (EF 60 to 65%, TTE 2024), non-obstructive CAD, PAF on chronic AC with Eliquis, HTN, hyperlipidemia, HCV s/p interferon Rx, and other medical hx listed below. He was recently admitted to our service from 07/09-07/11 for Acute metabolic encephalopathy, DM with hyperglycemia, open wounds of both legs with complication, paroxysmal A-fib, and noncompliance with medication treatment. Antibiotics were given for cellulitis of the legs and lower leg wounds that were present there prior to that admission. He has been following with the wound clinic as an outpatient. patient was seen by the wound clinic yesterday on 07/19 where his venous ulcers of both lower extremities were debrided in the office. He was required to do dressing changes however reported that he was unable to do it himself. Wound clinic had arranged for him to come to the wound center [facility] for dressing changes and he was agreeable at that time. He was not placed in compression wraps. Patient reports that he is having issues with caring for himself including the wound dressing, having worsening left lower back pain, Dexcom glucometer is not functioning appropriately, cannot administer insulin correctly, he cannot cook or clean for himself, he is drinking Ensure protein supplement daily, and therefore presented to the ER for possible placement. Pt is most concerned at this time that he is able to eat something. Patient reports that he uses methamphetamine regularly over the course of his life, starting at age 19, states uses it via snorting, injecting, most recently smoked it about 4 weeks ago. Pt was encouraged to seek counselor, therapist or drug rehab program and he states that he has never used this service in the past. Denies cigarette use or alcohol use. Pt did not take any of his morning medications today. Allergies Allergy/AdvReac Type Severity Reaction Status Date / Time shellfish derived Allergy Severe Swelling Verified 07/19/25 15:01 amoxicillin Allergy Intermediate HIVES Verified 07/19/25 15:01 clavulanic acid Allergy Intermediate HIVES Verified 07/19/25 15:01 permethrin Allergy Intermediate swelling Verified 07/19/25 15:01 shrimp Allergy Intermediate SWELLS Verified 07/19/25 15:01 sulfamethoxazole Allergy Unknown CAN'T Verified 07/19/25 15:01 [From Bactrim] REMEMBER trimethoprim [From Bactrim] Allergy Unknown CAN'T Verified 07/19/25 15:01 REMEMBER insulin glargine AdvReac Severe CHF PER Verified 07/19/25 15:01 [From Lantus U-100 Insulin] [facility] Home Medications Medication Instructions Recorded Confirmed Type ascorbic acid (vitamin C) 500 mg 1,000 mg PO DAILY 09/21/22 07/21/25 History tablet (Vitamin C) multivitamin with minerals 1 tab PO DAILY 09/21/22 07/21/25 History (Multiple Vitamin-Minerals tablet) lisinopril 20 mg tablet 20 mg PO DAILY 10/10/23 07/21/25 History sertraline 100 mg tablet 100 mg PO QAM 10/10/23 07/21/25 History albuterol sulfate 90 mcg/actuation 90 mcg inhalation Q4H PRN Wheezing 06/06/24 07/21/25 History aerosol inhaler fluticasone furoate 100 100 mcg inhalation DAILY 08/05/24 07/21/25 History mcg/actuation blister powder for inhalation (Arnuity Ellipta) metoprolol succinate 50 mg 50 mg PO BID #60 tabs 12/13/24 07/21/25 Rx tablet,extended release 24 hr insulin aspart U-100 100 unit/mL 60 unit subcut TIDWMEAL 12/15/24 07/21/25 History (3 mL) subcutaneous pen (Novolog FlexPen U-100 Insulin aspart) nitroglycerin 0.4 mg sublingual 0.4 mg sublingual DIRECTED PRN 02/28/25 07/21/25 History tablet Chest Pain tamsulosin 0.4 mg capsule 0.4 mg PO QAM 02/28/25 07/21/25 History bupropion HCl 300 mg 24 hr tablet, 300 mg PO DAILY 03/02/25 07/21/25 History extended release cinnamon bark 500 mg capsule 500 mg PO DAILY ##0 03/02/25 07/21/25 History (Cinnamon) metformin 750 mg tablet,extended 750 mg PO DAILY #30 tabs 03/06/25 07/21/25 Rx release 24 hr L.acidop,casei,lactis,rham-B.lact,guanakito 1 cap PO DAILY #30 caps 03/09/25 07/21/25 Rx 625 mg (10 billion cell) capsule (Advanced Probiotic) spironolactone 25 mg tablet 25 mg PO DAILY 04/13/25 07/21/25 History apixaban 5 mg tablet (Eliquis) 5 mg PO BID #74 tabs 04/21/25 07/21/25 Rx aspirin 81 mg chewable tablet 81 mg PO DAILY 06/02/25 07/21/25 History cyanocobalamin (vitamin B-12) 1,000 mcg PO DAILY 06/27/25 07/21/25 History 1,000 mcg tablet,extended release (Vitamin B-12 ER) empagliflozin 25 mg tablet 25 mg PO QAM #30 tabs 07/11/25 07/21/25 Rx (Jardiance) furosemide 20 mg tablet (Lasix) 40 mg (2 x 20 mg) PO QAM #60 tabs 07/11/25 07/21/25 Rx insulin glargine U-300 conc 300 100 unit (0.3333 mL) subcut BID #6 07/11/25 07/21/25 Rx unit/mL (3 mL) subcutaneous pen mL (Toujeo Max U-300 SoloStar) cephalexin 500 mg capsule 500 mg PO Q12H 07/19/25 07/21/25 History Past Med/Surg History Problem List (Updated 07/21/25 @ 15:34 by Amena Dee) Hyperglycemia (Acute) Unable to care for self (Acute) Acute lumbar back pain (Acute) Back pain (Acute) Noncompliance with medications (Acute) Stroke-like symptom (Acute) Acute hyperglycemia (Acute) Acute metabolic encephalopathy Open wound of both legs with complication Wound of left lower extremity Diabetic ulcer of left great toe (Acute) Acute hypoxemic respiratory failure Hyperglycemia due to diabetes mellitus (Acute) Diabetic foot ulcer (Acute) Diabetes mellitus due to underlying condition, uncontrolled, with hyperglycemia, with long-term current use of insulin Major depressive disorder Chronic venous insufficiency (Acute) Venous ulcers of both lower extremities (Acute) Paroxysmal atrial tachycardia Paroxysmal atrial fibrillation Methamphetamine abuse PAC (premature atrial contraction) Diabetic peripheral neuropathy (Acute) Diabetic neuropathic arthritis Unable to care for self (Acute) Ambulatory dysfunction (Acute) Noncompliance w/medication treatment due to intermit use of medication BPH (benign prostatic hyperplasia) Anxiety and depression Morbid obesity with BMI of 40.0-44.9, adult ALEJANDRA (obstructive sleep apnea) Hyperglycemia (Acute) Nonischemic cardiomyopathy (Chronic) "prior EF 30% per Epic records. echo 02/2015- EF 40-45%" DM type 2 (diabetes mellitus, type 2) (Chronic) Hepatitis C (Chronic) Hypertension (Chronic) Hyperglycemia due to type 2 diabetes mellitus (Acute) Polyneuropathy Peripheral vascular disease Depression Encephalopathy Varicose veins of bilateral lower extremities with other complications Morbid obesity Medical History H/O drug abuse Colon polyp "TVA polyp on colonoscopy 09/2014" H/O toxoplasmosis H/O TB (tuberculosis) Closed head injury Peripheral neuropathy Acute dehydration Dysequilibrium Hepatitis C Diabetes mellitus, type 2 Depression Anxiety Hypertension Surgical History S/P cardiac cath "for abnormal stress test. cath 03/18/2015-essentially normal coronaries with no obstructive disease " H/O colonoscopy "11/2015- diverticulosis" History of umbilical hernia repair x2 History of tooth extraction History of wisdom tooth extraction Family History Mother Family history of diabetes mellitus Father Family history of diabetes mellitus Other No family history of adverse response to anesthesia Social History Smoking Status: Never smoker Tobacco Type: Cigarettes Cigarettes Per Day: Says he occasionally will smoke a cigar.; Second Hand Exposure: No; Do You Dip or Chew Tobacco: No; Hx Alcohol Use: Yes Alcohol type: beer, wine and hard liquor Alcohol Intake Frequency: Monthly or Less Hx Substance Use: Yes Non-Prescribed Medications: Methamphetamines Last Used Substance: Days (ago) Last Used Substance Other:: "A couple of weeks ago" Substance Use Type Other:: MDMA, speed Preferred Language: Malian Communication Ability: Effective Visual Impairment: Severely Limited Hearing Ability: Normal Drum Handler Required: No Beliefs That Will Affect Care: None marital status: Single Current Living Situation: Alone Current Living Situation Comment: lives alone Feels Safe at Home: No Is there a partner from a previous relationship who is making you feel unsafe now?: No Diet: regular caffeine: Yes Gender Identity: Male Assistive Devices: None Review of Systems Review of Systems: Constitutional: No fever, sweats or chills Eyes: No diplopia, no worsening or blurred vision ENT: normal hearing, no trouble swallowing Respiratory: No cough, sputum, dyspnea at rest or on exertion Cardiovascular: No chest pain, tightness or palpitations Abdomen: No pain, nausea, vomiting, diarrhea or constipation Back: Left lower back pain reported, worse with ambulation Musculoskeletal: No joint pain, calf pain, swelling Neurologic: No weakness, numbness/tingling, or balance problems Psychiatric: No anxiety or depression Skin: No rash or itch Physical Exam Physical Exam: General: awake, alert, no apparent distress, obese with BMI 37.3 Head: Normocephalic, atraumatic ENT: PERRL, EOMI, no pharyngeal exudate, mucous membranes moist Chest: Clear to auscultation, on room air, no adventitious breath sounds Cardiac: Regular rate and rhythm, no murmur, no JVD, normal peripheral pulses, good capillary refill Abdominal: NABS x 4 quadrants, soft, nondistended, nontender to palpation, no rebound or guarding Extremities: Normal inspection, + mild peripheral edema, multiple healing wounds over bilateral lower extremities are very well healed. No erythema, calfs nontender to palpation Psych: Normal mood and affect Neuro: AAO x 3, strength intact bilaterally and rated 5/5, no motor deficits, speech is clear, no peripheral sensory deficits Results & Data Results & Data Vital Signs (Past 12 Hours) Vital Signs Temp Pulse Pulse Resp BP BP Pulse Ox 07/21/25 12:17 81 19 158/94 H 96 07/21/25 10:43 84 18 158/85 H 92 07/21/25 10:43 36.8 C 84 18 165/85 H 92 07/21/25 10:36 84 O2 Del Method 07/21/25 12:17 Room Air 07/21/25 10:43 Room Air 07/21/25 10:43 Room Air 07/21/25 10:36 Laboratory Results 07/21/25 07/21/25 07/21/25 13:30 13:23 12:49 WBC RBC Hgb Hct MCV MCH MCHC RDW Std Deviation RDW Coeff of Marc Plt Count MPV Immature Gran % (Auto) Neut % (Auto) Lymph % (Auto) [place] % (Auto) Eos % (Auto) Baso % (Auto) Neut # (Auto) Lymph # (Auto) [place] # (Auto) Eos # (Auto) Baso # (Auto) Immature Gran # (Auto) Sodium Potassium Chloride Carbon Dioxide Anion Gap BUN Creatinine Est Cr Clr Drug Dosing eGFR BUN/Creatinine Ratio Glucose POC Glucose 282 H 301 H* 301 H* Calcium Magnesium Total Bilirubin AST ALT Alkaline Phosphatase Total Protein Albumin Globulin Albumin/Globulin Ratio 07/21/25 07/21/25 11:44 10:37 WBC 10.14 RBC 6.03 Hgb 17.1 Hct 51.1 MCV 84.7 MCH 28.4 MCHC 33.5 RDW Std Deviation 41.1 RDW Coeff of Marc 13.3 Plt Count 227 MPV 9.6 Immature Gran % (Auto) 1.0 Neut % (Auto) 59.9 Lymph % (Auto) 28.2 [place] % (Auto) 6.8 Eos % (Auto) 2.8 Baso % (Auto) 1.3 Neut # (Auto) 6.08 Lymph # (Auto) 2.86 [place]lette # (Auto) 0.69 H Eos # (Auto) 0.28 Baso # (Auto) 0.13 Immature Gran # (Auto) 0.10 Sodium 133 L Potassium 4.9 Chloride 97 L Carbon Dioxide 32 Anion Gap 4 BUN 17 Creatinine 0.63 Est Cr Clr Drug Dosing 154.3 eGFR 106.88 BUN/Creatinine Ratio 27.0 H Glucose 349 H* POC Glucose 301 H* Calcium 9.2 Magnesium 1.8 Total Bilirubin 0.8 AST 29 ALT 24 Alkaline Phosphatase 81 Total Protein 6.7 Albumin 3.6 Globulin 3.1 Albumin/Globulin Ratio 1.2 Diagnostic Findings Lumbar Spine X-Ray 07/21/25 11:27 Clinical history: Pain Technique: 5 views of the lumbar spine are submitted for review Findings: The lumbar vertebrae are in normal alignment with no listhesis seen. No fracture is identified. There are degenerative spurs from T11-12 through L4-5. There is facet osteoarthritis at L4-5 and L5-S1. No focal osseous lesion is seen. The bowel gas pattern appears unremarkable. Impression: 1. Multilevel degenerative disc disease 2. Lower lumbar facet osteoarthritis Electronically signed by Sukhjinder Leonardo 07-21-2025 12:42 PM Code Status & VTE Plan Code Status DNR/DNI - discussed with pt at bedside Supervising Physician Co-Signing Physician Notes Patient seen and examined at bedside. Patient doing ok today. Stopped smoking meth 4 weeks ago. Has not been able to take care of wound care and self at home. On exam, chronic wounds on legs bilaterally. Appears well overall. Hypertensive, no leukocytosis, elevated glucose suggestive of not taking insulin doses at home (confirmed per patient). Patient presenting with failure to thrive at home and inability to do wound care. Patient has wounds that require wound care, and will likely require placement. Continue to encourage meth sobriety. Restart diabetes management, appreciate pharmacy assistance with insulin titration. I have seen and discussed the case with the collaborating advanced practitioner. I agree with the above H&P. I have reviewed and confirmed the patients medical history, the findings on physical examination, and the patients diagnosis and treatment plan with Emilia Savage PA-C and agree with the information documented. I spent a total of 20 minutes coordinating, documenting, and providing care for this patient excluding time spent in the performance of separately billed services. All of the aforementioned completed outside of collaborating with the assigned advanced practitioner for a full treatment plan. I have reviewed the advanced practitioner's documentation, and I agree with, and take responsibility for the plan of care (1) Back pain Back pain laterality: left Back pain location: low back pain Chronicity: acute Sciatica presence: without sciatica Qualified Code(s): M54.50 - Low back pain, unspecified (3) Open wound of both legs with complication Encounter type: subsequent encounter Qualified Code(s): S81.801D - Unspecified open wound, right lower leg, subsequent encounter; S81.802D - Unspecified open wound, left lower leg, subsequent encounter (10) Hypertension Hypertension type: unspecified Qualified Code(s): I10 - Essential (primary) hypertension
[2025-07-21] MEDS ORDERED: GLUCOSE 40% GEL 15 GM TUBE PO PRN (20:21)
[2025-07-21] MEDS ORDERED: DEXTROSE 50% 50 ML SYRINGE IV PRN (20:21)
[2025-07-21] MEDS ORDERED: GLUCOSE 10 TAB/TUBE PO PRN (20:21)
[2025-07-21] MEDS ORDERED: ACETAMINOPHEN 325 MG TAB PO PRN (20:21)
[2025-07-21] MEDS ORDERED: ONDANSETRON INJ 2 MG/ML 2 ML VIAL IV PRN (20:21)
[2025-07-21] MEDS ORDERED: CARBOHYDRATES FOR HYPOGLYCEMIA PO PRN (20:21)
[2025-07-21] MEDS ORDERED: GLUCAGON FOR INJ 1 MG VIAL SQ PRN (20:21)
[2025-07-21] MEDS ORDERED: NITROGLYCERIN SL 0.4 MG/TAB TAB SL PRN (20:21)
[2025-07-21] MEDS ORDERED: ALBUTEROL HFA 8 GM INHALER INH PRN (20:21)
[2025-07-21] MEDS ORDERED: PHARMACY GLYCEMIC MGMT CONSULT PRN (20:21)
[2025-07-21] MEDS ORDERED: NON-FORMULARY MEDICATION (Insulin Glargine U-300 Conc [Toujeo Max U-300 Solostar] 300 unit SQ SCH (21:00)
[2025-07-21] MEDS: SPIRONOLACTONE 25 MG TAB PO SCH (21:56)
[2025-07-21] MEDS: METOPROLOL SUCC 50MG EXT REL TAB PO SCH (21:56)
[2025-07-21] MEDS: FUROSEMIDE 40 MG TAB PO SCH (21:56)
[2025-07-21] MEDS: APIXABAN 5 MG TABLET PO SCH (21:57)
[2025-07-21] MEDS: REMOVE LIDODERM PATCH SCH (21:57)
[2025-07-21] MEDS: INSULIN ASPART PER UNIT CHARGE SC SCH (22:03)
[2025-07-22] MEDS: INSULIN ASPART PER UNIT CHARGE SC SCH (00:20)
[2025-07-22 05:54] LABS: Hematocrit (blood only) 49.8 % (42.0-52.0); Hemoglobin 16.4 g/dl (14.0-18.0); Mean Corpuscular Hemoglobin 28.1 pg (25.0-34.0); Mean Corpuscular Volume 85.3 fL (80.0-100.0); Platelet Count 225 K/uL (130-400); RDW Standard Deviation 40.6 fL (36.4-46.3); Red Blood Count 5.84 M/uL (4.70-6.10); White Blood Count 11.06 K/ul (4.8-10.8)
[2025-07-22 06:10] LABS: Anion Gap 4.0 (3-11); Blood Urea Nitrogen 16.0 mg/dl (6-23); Calcium 8.9 mg/dl (8.6-10.3); Carbon Dioxide 31.0 mmol/L (21-32); Chloride 102.0 mmol/L (98-107); Creatinine Clr Calc Pharmacy 176.8 ml/min; Glucose 190.0 mg/dl (70-99(Fasting)); Potassium 4.2 mmol/L (3.5-5.1); Sodium 137.0 mmol/L (136-145)
[2025-07-22] MEDS: CYANOCOBALAMIN (B-12) 500 MCG TABLET PO SCH (08:40)
[2025-07-22] MEDS: FLUTICASONE FUROATE 100MCG 14 PUFFS/INHALER INH SCH (08:41)
[2025-07-22] MEDS ORDERED: EMPAGLIFLOZIN 25 MG TAB PO SCH (09:00)
[2025-07-22] MEDS ORDERED: NON-FORMULARY MEDICATION (Cinnamon Bark [Cinnamon] 500 mg Capsule) PO SCH (09:00)
[2025-07-22] MEDS ORDERED: ASCORBIC ACID 500 MG TAB PO SCH (09:00)
[2025-07-22] MEDS: ADVANCED PROBIOTIC 625 MG CAPSULE PO SCH (09:54)
[2025-07-22] MEDS: CEROVITE ADV FORMULA TAB PO SCH (09:55)
[2025-07-22] MEDS: TAMSULOSIN HCL 0.4 MG CAP PO SCH (09:55)
[2025-07-22] MEDS: SERTRALINE HCL 100 MG TABLET PO SCH (09:55)
[2025-07-22] MEDS: INSULIN HUMAN NPH SC SCH ×2 (10:04→17:46)
[2025-07-22] MEDS: ASPIRIN 81 MG CHEW PO SCH (10:12)
--- NOTE | 2025-07-22 10:23 | Hospitalist Progress Note ---
Date of Service July 22, 2025 Assessment & Plan (1) Back pain: (2) Noncompliance with medications: (3) Open wound of both legs with complication: (4) Diabetes mellitus due to underlying condition, uncontrolled, with hyperglycemia, with long-term current use of insulin: (5) Venous ulcers of both lower extremities: (6) Noncompliance w/medication treatment due to intermit use of medication: (7) Morbid obesity with BMI of 40.0-44.9, adult: (8) ALEJANDRA (obstructive sleep apnea): (9) Nonischemic cardiomyopathy: (10) Hypertension: (11) Peripheral vascular disease: Plan Uncontrolled insulin-requiring type 2 DM Adult Failure to Thrive - PT/OT evaluations for placement/rehab due to multiple chronic issues and inability to care for self at home - special education paraeducator and allergist/immunologist consults, pharmacy for glycemic management and patient's questions regarding home regimen, appreciate recs - cont thiamine, folic acid Bilateral LE cellulitis/wounds - Continue Keflex as prescribed - WOCN consulted Left gluteal/hip pain - Appears musculoskeletal on exam, started during a transfer out of chair at home, no radicular component - Lidocaine patch, heat, PRN Tylenol, PT ordered Chronic HFpEF - Euvolemic today - Continue furosemide/spironolactone - Daily weights Paroxysmal atrial fibrillation - Continue Eliquis Non-obstructive CAD - no anginal symptoms at present - Continue outpatient regimen with metoprolol succinate 50 mg BID, lasix, spironolactone, asa 81 mg daily, lisinopril BPH - Chronic, continue tamsulosin Anxiety/Depression - Chronic, continue bupropion/sertraline Hx of Methamphetamine Use - Smoking it, last use was 4 weeks ago. Encourage cessation. He does not see therapist, counselor, and does not participate in drug rehab program at this time and would greatly benefit from such. - Started using at age 19 via all methods including snorting, injection, and most recently smoking DVT ppx: Eliquis BID CODE: DNR/DNI Dispo: admitted to med/surg, awaiting eval for placement vs return home Care coordinated with Dr. Aide Rodrigues spent a total of 45 minutes coordinating, documenting, and providing care for this patient excluding time spent in the performance of separately billed services or time spent by another provider/QHP. Admission and Anticipated Discharge Date Admission Date: July 21, 2025 Supervising Physician Co-Signing Physician Notes 07/22/2025 Patient was seen and examined in medical floor in presence of the sister He was admitted with left hip pain Complains of pain in the lower back on the left side of seems to be overall left gluteal area Denies any other significant symptoms On examination Lying in bed without any apparent distress Remains hemodynamically stable Chest is clear to auscultate bilaterally HeartS1-S2 regular Abdomenmildly distended and bowel sound present Extremitiestrace edema bilaterally Examination of the musculoskeletal systemdid show localized tenderness left lower lumbar area over buttock Movement of the left hip was minimally painful globally His admission labs, EKG and imaging studies reviewed Localized tenderness left lower lumbar/gluteal area without any significant findings on examination or imaging studies Will apply lidocaine patch locally and observe His other significant medical conditions remained stable as above as managed by Anastasiia Keating PA-C Agree with assessment plan as outlined above by Anastasiia Keating PA-C and take the full responsibility of care in the hospital Total time taken to take history from the patient, examination, review of labs and imaging studies and medication was [address] Taylor Noble Subjective Seen and examined in 386-2. No acute events overnight. Has pain in Left hip/buttocks that started when he got out of his recliner at home a few days ago. Chronic BLE wounds much improved from previus with 3x/week wound care dressing changes. Patient unable to care for himself at home and desiring placement/services. Cannot cook for himself or manage dressing changes at home. No F/C, lightheadedness, CP, SOB, N/V, abd pain, dysuria, diarrhea or constipation. Review of Systems Review of Systems: At least ten systems reviewed and negative except as noted in the HPI. Physical Exam Physical Exam: Gen: WD/WN, NAD, resting in bed, cooperative, A&Ox3 HEENT: Normocephalic, atraumatic Lung: Clear to Auscultation bilaterally, no wheezes/rales/rhonchi Heart: Regular rate, regular rhythm Abdomen: Soft, NT, ND +BS x 4 Extremities: BLE wounds with dressings c/d/i, trace edema. + L TTP over gluteus medius, near lumbar region Skin: Warm, no rash Results & Data Results & Data Vital Signs (Past 12 Hours) Vital Signs Temp Pulse Resp BP Pulse Ox O2 Del Method 07/22/25 07:30 36.5 C 77 18 131/76 97 Room Air Laboratory Results Short CBC 07/22/25 Range/Units 05:36 WBC 11.06 H (4.8-10.8) K/ul Hgb 16.4 (14.0-18.0) g/dl Hct 49.8 (42.0-52.0) % Plt Count 225 (130-400) K/uL BMP 07/22/25 05:36 Sodium 137 Potassium 4.2 Chloride 102 Carbon Dioxide 31 BUN 16 Creatinine 0.55 L Glucose 190 H Calcium 8.9 Diagnostic Findings Lumbar Spine X-Ray 07/21/25 11:27 Clinical history: Pain Technique: 5 views of the lumbar spine are submitted for review Findings: The lumbar vertebrae are in normal alignment with no listhesis seen. No fracture is identified. There are degenerative spurs from T11-12 through L4-5. There is facet osteoarthritis at L4-5 and L5-S1. No focal osseous lesion is seen. The bowel gas pattern appears unremarkable. Impression: 1. Multilevel degenerative disc disease 2. Lower lumbar facet osteoarthritis Electronically signed by Sukhjinder Leonardo 07-21-2025 12:42 PM (1) Back pain Back pain laterality: left Back pain location: low back pain Chronicity: acute Sciatica presence: without sciatica Qualified Code(s): M54.50 - Low back pain, unspecified (3) Open wound of both legs with complication Encounter type: subsequent encounter Qualified Code(s): S81.801D - Unspecified open wound, right lower leg, subsequent encounter; S81.802D - Unspecified open wound, left lower leg, subsequent encounter (10) Hypertension Hypertension type: unspecified Qualified Code(s): I10 - Essential (primary) hypertension
[2025-07-22] MEDS: LIDOCAINE 5% 1 PATCH TD STA (12:37)
--- NOTE | 2025-07-22 14:14 | Pharmacy Report ---
Pharmacy Glycemic Short Note 2 - Date of Service July 22, 2025 - Glycemic Short BSG Results (Last 24 hours): 07/21/25 07/22/25 07/22/25 21:53 00:16 03:43 Glucose POC Glucose 259 H 260 H 176 H 07/22/25 07/22/25 07/22/25 05:36 07:39 11:43 Glucose 190 H POC Glucose 191 H 324 H* OUTPATIENT ANTIDIABETIC REGIMEN: * Toujeo 100 units bid, aspart 60 units tidm, jardiance 25 mg daily ASSESSMENT: * 65 year old admitted with back pain, hyperglycemia. Pharmacy consulted for glycemic management. Lantus allergy noted, therefore plan to utilize NPH. Recently admitted, plan to utilize similar insulin parameters. PLAN FOR INPATIENT GLYCEMIC CONTROL: * Hold outpatient oral diabetes medications * Basal insulin * NPH 25 units daily with breakfast * NPH 10-15 units daily with dinner * Bolus insulin * NovoLog per scale ACHS or Q6hrs while NPO * Goal Range: Low 120 mg/dL - High 150 mg/dL * Correction Factor: 20 mg/dL/unit * Nutritional / Prandial insulin per carb ratio of 1 unit per 4 grams CHO consumed
[2025-07-22] MEDS: ACETAMINOPHEN 500 MG TAB PO SCH (14:53)
--- NOTE | 2025-07-22 19:40 | Electrocardiogram Report ---
Test Reason : Blood Pressure : */* mmHG Vent. Rate : 83 BPM Atrial Rate : 83 BPM P-R Int : 180 ms QRS Dur : 80 ms QT Int : 388 ms P-R-T Axes : 117 56 48 degrees QTcB Int : 455 ms Normal sinus rhythm Normal ECG When compared with ECG of 12-Jul-2025 04:49, MS interval has decreased Confirmed by Iftikhar Burns ([id number]) on 07/22/2025 7:40:02 PM Referred By: REFERRED SELF Confirmed By: Iftikhar Burns
[2025-07-22] MEDS: REMOVE LIDODERM PATCH SCH (20:53)
[2025-07-23 07:44] LABS: Hematocrit (blood only) 48.0 % (42.0-52.0); Hemoglobin 16.7 g/dl (14.0-18.0); Mean Corpuscular Hemoglobin 29.2 pg (25.0-34.0); Mean Corpuscular Volume 83.9 fL (80.0-100.0); Platelet Count 207 K/uL (130-400); RDW Standard Deviation 40.5 fL (36.4-46.3); Red Blood Count 5.72 M/uL (4.70-6.10); White Blood Count 9.85 K/ul (4.8-10.8)
[2025-07-23 07:59] LABS: Anion Gap 6.0 (3-11); Blood Urea Nitrogen 25.0 mg/dl (6-23); Calcium 8.9 mg/dl (8.6-10.3); Carbon Dioxide 28.0 mmol/L (21-32); Chloride 102.0 mmol/L (98-107); Creatinine Clr Calc Pharmacy 143.0 ml/min; Glucose 205.0 mg/dl (70-99(Fasting)); Potassium 4.2 mmol/L (3.5-5.1); Sodium 136.0 mmol/L (136-145)
--- NOTE | 2025-07-23 08:36 | Hospitalist Progress Note ---
Date of Service July 23, 2025 Assessment & Plan (1) Back pain: (2) Noncompliance with medications: (3) Open wound of both legs with complication: (4) Diabetes mellitus due to underlying condition, uncontrolled, with hyperglycemia, with long-term current use of insulin: (5) Venous ulcers of both lower extremities: (6) Noncompliance w/medication treatment due to intermit use of medication: (7) Morbid obesity with BMI of 40.0-44.9, adult: (8) ALEJANDRA (obstructive sleep apnea): (9) Nonischemic cardiomyopathy: (10) Hypertension: (11) Peripheral vascular disease: Plan This is a 65 y/o male with insulin-requiring diabetes, chronic HFpEF (EF 60 to 65%, TTE 2024), non-obstructive CAD, PAF on chronic AC with Eliquis, HTN, hyperlipidemia, HCV s/p interferon Rx, BPH, depression/anxiety, and history of methamphetamine use who presents on 07/21/2025 with inability to care for self and need for placement. Adult failure to thrive Inability to care for self Patient presenting with inability to change LE wound dressings, administer insulin, cook or clean for self Continue thiamine and folic acid PT/OT consults pending CM following Uncontrolled insulin-requiring type 2 DM Glucose 405 on admission A1C 10.1 Home oral agents on hold BSG ACHS and SSI Glycemic pharmacy consulted certified lactation educator and retail merchandiser consults pending Bilateral LE cellulitis/wounds Continue Keflex as prescribed WOCN consulted Left gluteal/hip pain Appears musculoskeletal on exam, started during a transfer out of chair at home, no radicular component Lumbar x-ray shows multilevel degenerative disc disease and lower lumbar facet osteoarthritis Lidocaine patch, heat, PRN Tylenol, PT ordered Chronic HFpEF Appears euvolemic Continue diuretics Paroxysmal atrial fibrillation Continue Eliquis and metoprolol Non-obstructive CAD Hypertension Continue outpatient regimen with baby aspirin, lisinopril, metoprolol BPH Continue tamsulosin Anxiety/Depression Continue bupropion and sertraline Hx of Methamphetamine Use Started using at age 19 via all methods including snorting, injection, and most recently smoking (last use 4 weeks ago) He does not see therapist, counselor, and does not participate in drug rehab program at this time and would greatly benefit from such Patient notes he would prefer to go to sleep and not wake up today but notes he would never commit suicide-> agreeable to psych consult today DVT Prophylaxis: On Eliquis CODE: DNR/DNI PCP: Willam Fofana Disposition: placement pending PT/OT evals Patient seen in collaboration with Dr. Noble. Please see addendum. I spent a total of 50 minutes coordinating, documenting, and providing care for this patient excluding time spent in the performance of separately billed services or time spent by another provider/QHP. Admission and Anticipated Discharge Date Admission Date: July 21, 2025 Supervising Physician Co-Signing Physician Notes 07/22/2025 Patient was seen and examined in medical floor in presence of the sister He was admitted with left hip pain Complains of pain in the lower back on the left side of seems to be overall left gluteal area Denies any other significant symptoms On examination Lying in bed without any apparent distress Remains hemodynamically stable Chest is clear to auscultate bilaterally HeartS1-S2 regular Abdomenmildly distended and bowel sound present Extremitiestrace edema bilaterally Examination of the musculoskeletal systemdid show localized tenderness left lower lumbar area over buttock Movement of the left hip was minimally painful globally His admission labs, EKG and imaging studies reviewed Localized tenderness left lower lumbar/gluteal area without any significant findings on examination or imaging studies Will apply lidocaine patch locally and observe His other significant medical conditions remained stable as above as managed by Anastasiia Keating PA-C Agree with assessment plan as outlined above by Anastasiia Keating PA-C and take the full responsibility of care in the hospital Total time taken to take history from the patient, examination, review of labs and imaging studies and medication was [address] Taylor Noble 07/23/2025 The patient was seen and examined in medical floor He has been feeling better with improvement of pain in the left hip and adjoining area of the back Awaiting physical therapy Denies any other significant symptoms On examination Sitting on a chair without any acute distress and remains hemodynamically stable Local area at the back is minimally tender on palpation Other system examination remained unremarkable His labs and medications reviewed Left lower back pain and improving with current management Awaiting physical therapy and may need to go for short-term rehab Agree with assessment plan as outlined above by KEY Fernandez and take the full responsibility care in the hospital Total time taken to document all this was [address] Taylor Noble Subjective Patient seen resting in bed Reports ongoing pain in his left buttock/hip Notes he wishes he could go to sleep and not wake up Agreeable to psych eval Review of Systems Review of Systems: All systems reviewed & are unremarkable except as noted in HPI & below Physical Exam Physical Exam: General/Psych: obese, sitting up in bed, NAD, conversing easily, depressed affect Head: normocephalic, atraumatic Eyes: normal inspection, PERRL, conjunctivae pink ENT: external ear and nose normal, oropharynx normal Neck: normal visual inspection, trachea midline Respiratory: normal respiratory effort, lungs clear to auscultation, no wheeze/rales/rhonchi, no accessory muscle use Cardiovascular: regular rate and rhythm, no murmur/rub/gallop Extremities: no cyanosis or clubbing, normal peripheral pulses, no BLE edema Abdomen/GI: normal bowel sounds, soft, nontender Neurologic/MSK: A+Ox3, motor strength 5/5, moves all extremities Skin: no rashes, normal color, warm and dry, chronic venous stasis skin changes of BLE, multiple wounds with optifoam dressings c/d/i Results & Data Results & Data Vital Signs (Past 12 Hours) Vital Signs Temp Pulse Resp BP Pulse Ox O2 Del Method 07/23/25 08:07 36.5 C 67 20 118/58 L 95 Room Air 07/22/25 22:15 36.5 C 70 16 109/68 93 Room Air Laboratory Results Short CBC 07/23/25 Range/Units 07:23 WBC 9.85 (4.8-10.8) K/ul Hgb 16.7 (14.0-18.0) g/dl Hct 48.0 (42.0-52.0) % Plt Count 207 (130-400) K/uL BMP 07/23/25 07:23 Sodium 136 Potassium 4.2 Chloride 102 Carbon Dioxide 28 BUN 25 H Creatinine 0.68 Glucose 205 H Calcium 8.9 I have independently reviewed and interpreted patient's labs including CBC and BMP. Medications Administered Current Inpatient Medications Acetaminophen (Acetaminophen 500 Mg Tab) 1,000 mg PO Q8 MULU Stop: 08/21/25 13:59 Last Admin: 07/23/25 05:56 Dose: 1,000 mg Albuterol (Albuterol Hfa 8 Gm Inhaler) 1 puffs INH Q4H PRN PRN Reason: Wheezing Stop: 08/20/25 20:20 Apixaban (Apixaban 5 Mg Tablet) 5 mg PO BID MULU Stop: 08/20/25 20:59 Last Admin: 07/22/25 20:44 Dose: 5 mg Aspirin (Aspirin 81 Mg Chew) 81 mg PO DAILY [facility] Stop: 08/21/25 08:59 Last Admin: 07/22/25 10:12 Dose: 81 mg Bupropion HCl (Bupropion Xl 300 Mg Tabcr) 300 mg PO DAILY [facility] Stop: 08/21/25 08:59 Last Admin: 07/22/25 08:40 Dose: 300 mg Cephalexin HCl (Cephalexin 500 Mg Cap) 500 mg PO QID [facility]; Protocol Stop: 07/28/25 20:59 Last Admin: 07/22/25 20:44 Dose: 500 mg Cyanocobalamin (Cyanocobalamin (B-12) 500 Mcg Tablet) 1,000 mcg PO DAILY [facility] Stop: 08/21/25 08:59 Last Admin: 07/22/25 08:40 Dose: 1,000 mcg Dextrose (Dextrose 50% 50 Ml Syringe) 25 - 50 ml IV UD PRN; Protocol PRN Reason: Hypoglycemia Protocol Stop: 08/20/25 20:20 Fluticasone Furoate (Fluticasone Furoate 100mcg 14 Puffs/Inhaler) 1 puffs INH DAILY [facility] Stop: 08/21/25 08:59 Last Admin: 07/22/25 08:41 Dose: 1 puffs Furosemide (Furosemide 40 Mg Tab) 40 mg PO QAM [facility] Stop: 08/20/25 20:20 Last Admin: 07/22/25 09:54 Dose: 40 mg Glucagon (Glucagon For Inj 1 Mg Vial) 1 mg SQ UD PRN; Protocol PRN Reason: Hypoglycemia Protocol Stop: 08/20/25 20:20 Glucose (Glucose 40% Gel 15 Gm Tube) 15 - 30 gm PO UD PRN; Protocol PRN Reason: Hypoglycemia Protocol Stop: 08/20/25 20:20 Glucose (Glucose 10 Tab/Tube) 4 - 8 tab PO UD PRN; Protocol PRN Reason: Hypoglycemia Protocol Stop: 08/20/25 20:20 Insulin Aspart (Insulin Aspart Per Unit Charge) 0 units SC ACHS MULU Stop: 08/20/25 21:29 Last Admin: 07/22/25 20:52 Dose: 6 units Insulin Human NPH (Insulin Human Nph) 25 units SC QDB [facility] Stop: 08/21/25 07:29 Last Admin: 07/22/25 10:04 Dose: 25 units Insulin Human NPH (Insulin Human Nph) 0 units SC DAILY@1700 [facility]; Protocol Stop: 08/21/25 16:59 Last Admin: 07/22/25 17:46 Dose: 10 units Lactobacillus Acidophilus (Advanced Probiotic 625 Mg Capsule) 625 mg PO DAILY [facility] Stop: 08/21/25 08:59 Last Admin: 07/22/25 09:54 Dose: 625 mg Lisinopril (Lisinopril 20 Mg Tab) 20 mg PO DAILY [facility] Stop: 08/20/25 20:20 Last Admin: 07/22/25 09:54 Dose: 20 mg Metoprolol Succinate (Metoprolol Succ 50mg Ext Rel Tab) 50 mg PO BID [facility] Stop: 08/20/25 20:20 Last Admin: 07/22/25 20:45 Dose: 50 mg Miscellaneous (Carbohydrates For Hypoglycemia ) 15 - 30 gm PO UD PRN PRN Reason: Hypoglycemia Protocol Stop: 08/20/25 20:20 Miscellaneous (Remove Lidoderm Patch) 1 each N/A DAILY@2100 [facility] Stop: 08/21/25 20:59 Last Admin: 07/22/25 20:53 Dose: 1 each Miscellaneous Information (Pharmacy Glycemic Mgmt Consult) 1 each N/A UD PRN PRN Reason: Consult Stop: 08/20/25 20:20 Multivitamins/Minerals (Cerovite Adv Formula Tab) 1 tab PO DAILY [facility] Stop: 08/21/25 08:59 Last Admin: 07/22/25 09:55 Dose: 1 tab Ondansetron HCl (Ondansetron Inj 2 Mg/Ml 2 Ml Vial) 4 mg IV Q4H PRN PRN Reason: Nausea And Vomiting Stop: 08/20/25 20:20 Sertraline HCl (Sertraline Hcl 100 Mg Tablet) 100 mg PO QAM [facility] Stop: 08/21/25 08:59 Last Admin: 07/22/25 09:55 Dose: 100 mg Spironolactone (Spironolactone 25 Mg Tab) 25 mg PO DAILY [facility] Stop: 08/20/25 20:20 Last Admin: 07/22/25 09:55 Dose: 25 mg Tamsulosin HCl (Tamsulosin Hcl 0.4 Mg Cap) 0.4 mg PO QAM [facility]U Stop: 08/21/25 08:59 Last Admin: 07/22/25 09:55 Dose: 0.4 mg (1) Back pain Back pain laterality: left Back pain location: low back pain Chronicity: acute Sciatica presence: without sciatica Qualified Code(s): M54.50 - Low back pain, unspecified (3) Open wound of both legs with complication Encounter type: subsequent encounter Qualified Code(s): S81.801D - Unspecified open wound, right lower leg, subsequent encounter; S81.802D - Unspecified open wound, left lower leg, subsequent encounter (10) Hypertension Hypertension type: unspecified Qualified Code(s): I10 - Essential (primary) hypertension
[2025-07-23 10:12] LABS: Hemoglobin A1C 10.1 % (4.5-5.6)
[2025-07-23] MEDS: LIDOCAINE 5% 1 PATCH TD SCH (12:15)
[2025-07-23] MEDS: REMOVE LIDODERM PATCH SCH (21:44)
[2025-07-24 07:15] LABS: Hematocrit (blood only) 46.1 % (42.0-52.0); Hemoglobin 16.0 g/dl (14.0-18.0); Mean Corpuscular Hemoglobin 29.2 pg (25.0-34.0); Mean Corpuscular Volume 84.1 fL (80.0-100.0); Platelet Count 198 K/uL (130-400); RDW Standard Deviation 40.0 fL (36.4-46.3); Red Blood Count 5.48 M/uL (4.70-6.10); White Blood Count 9.46 K/ul (4.8-10.8)
[2025-07-24 07:37] LABS: Anion Gap 5.0 (3-11); Blood Urea Nitrogen 31.0 mg/dl (6-23); Calcium 8.7 mg/dl (8.6-10.3); Carbon Dioxide 27.0 mmol/L (21-32); Chloride 104.0 mmol/L (98-107); Creatinine Clr Calc Pharmacy 151.9 ml/min; Glucose 177.0 mg/dl (70-99(Fasting)); Magnesium 1.9 mg/dl (1.7-2.4); Potassium 4.3 mmol/L (3.5-5.1); Sodium 136.0 mmol/L (136-145)
--- NOTE | 2025-07-24 08:24 | Hospitalist Progress Note ---
Date of Service July 24, 2025 Assessment & Plan (1) Back pain: (2) Noncompliance with medications: (3) Open wound of both legs with complication: (4) Diabetes mellitus due to underlying condition, uncontrolled, with hyperglycemia, with long-term current use of insulin: (5) Venous ulcers of both lower extremities: (6) Noncompliance w/medication treatment due to intermit use of medication: (7) Morbid obesity with BMI of 40.0-44.9, adult: (8) ALEJANDRA (obstructive sleep apnea): (9) Nonischemic cardiomyopathy: (10) Hypertension: (11) Peripheral vascular disease: Plan This is a 65 y/o male with insulin-requiring diabetes, chronic HFpEF (EF 60 to 65%, TTE 2024), non-obstructive CAD, PAF on chronic AC with Eliquis, HTN, hyperlipidemia, HCV s/p interferon Rx, BPH, depression/anxiety, and history of methamphetamine use who presents on 07/21/2025 with inability to care for self and need for placement. Left gluteal/hip pain Appears musculoskeletal on exam, started during a transfer out of chair at home, no radicular component Lumbar x-ray shows multilevel degenerative disc disease and lower lumbar facet osteoarthritis Continue lidocaine patch, heat, tylenol, PT Pain is improving per patient Adult failure to thrive Inability to care for self Patient presenting with reported inability to change LE wound dressings, administer insulin, cook or clean for self Notes this was due to immobility secondary to pain as above Now that pain is manageable, patient feels he could return home tomorrow Uncontrolled insulin-requiring type 2 DM Glucose 405, A1C 10.1 on admission-> patient reports he was not administering insulin at home due to pain as above Home oral agents on hold BSG ACHS and SSI Glycemic pharmacy consulted community educator and yardage caller consults pending Bilateral LE cellulitis/wounds Continue Keflex as prescribed WOCN consult pending Chronic HFpEF Appears euvolemic Continue diuretics Paroxysmal atrial fibrillation Continue Eliquis and metoprolol Non-obstructive CAD Hypertension Continue outpatient regimen with baby aspirin, lisinopril, metoprolol BPH Continue tamsulosin Anxiety/Depression Continue bupropion and sertraline Spoke with psych liason 07/23 Psych consult 07/24 where patient declined outpatient psychotherapy referral and psych med dose adjustments Hx of Methamphetamine Use Started using at age 19 via all methods including snorting, injection, and most recently smoking (last use 4 weeks ago) DVT Prophylaxis: On Eliquis CODE: DNR/DNI PCP: Willam Fofana Disposition: anticipate dc home tomorrow Patient seen in collaboration with Dr. Noble. Please see addendum. I spent a total of 40 minutes coordinating, documenting, and providing care for this patient excluding time spent in the performance of separately billed services or time spent by another provider/QHP. Admission and Anticipated Discharge Date Admission Date: July 21, 2025 Supervising Physician Co-Signing Physician Notes 07/22/2025 Patient was seen and examined in medical floor in presence of the sister He was admitted with left hip pain Complains of pain in the lower back on the left side of seems to be overall left gluteal area Denies any other significant symptoms On examination Lying in bed without any apparent distress Remains hemodynamically stable Chest is clear to auscultate bilaterally HeartS1-S2 regular Abdomenmildly distended and bowel sound present Extremitiestrace edema bilaterally Examination of the musculoskeletal systemdid show localized tenderness left lower lumbar area over buttock Movement of the left hip was minimally painful globally His admission labs, EKG and imaging studies reviewed Localized tenderness left lower lumbar/gluteal area without any significant findings on examination or imaging studies Will apply lidocaine patch locally and observe His other significant medical conditions remained stable as above as managed by Anastasiia Keating PA-C Agree with assessment plan as outlined above by Anastasiia Keating PA-C and take the full responsibility of care in the hospital Total time taken to take history from the patient, examination, review of labs and imaging studies and medication was [address] Taylor Noble 07/23/2025 The patient was seen and examined in medical floor He has been feeling better with improvement of pain in the left hip and adjoining area of the back Awaiting physical therapy Denies any other significant symptoms On examination Sitting on a chair without any acute distress and remains hemodynamically stable Local area at the back is minimally tender on palpation Other system examination remained unremarkable His labs and medications reviewed Left lower back pain and improving with current management Awaiting physical therapy and may need to go for short-term rehab Agree with assessment plan as outlined above by KEY Fernandez and take the full responsibility care in the hospital Total time taken to document all this was [address] Taylor Noble 07/24/2025 The patient was seen and examined in medical floor He has been stable with less pain and getting physical therapy He is hoping to be discharged in a day or 2 to home He chart and medications reviewed Agree with assessment plan as outlined above by Frederick MACKEY and take the full responsibility of care in the hospital Total time taken document all this was [address] Taylor Noble Subjective Patient seen resting in bed Report left buttock/hip pain is improved Feeling like he can manage his conditions at home as long as his mobility improves Denies chest pain, SOB, abdominal pain Review of Systems Review of Systems: All systems reviewed & are unremarkable except as noted in HPI & below Physical Exam Physical Exam: General/Psych: obese, laying in bed, NAD, conversing easily Head: normocephalic, atraumatic Eyes: normal inspection, PERRL, conjunctivae pink ENT: external ear and nose normal, oropharynx normal Neck: normal visual inspection, trachea midline Respiratory: normal respiratory effort, lungs clear to auscultation, no wheeze/rales/rhonchi, no accessory muscle use Cardiovascular: regular rate and rhythm, no murmur/rub/gallop Extremities: no cyanosis or clubbing, normal peripheral pulses, no BLE edema Abdomen/GI: normal bowel sounds, soft, nontender Neurologic/MSK: A+Ox3, motor strength 5/5, moves all extremities Skin: no rashes, normal color, warm and dry, chronic venous stasis skin changes of BLE, multiple wounds with optifoam dressings c/d/i Results & Data Results & Data Vital Signs (Past 12 Hours) Vital Signs Temp Pulse Resp BP Pulse Ox O2 Del Method 07/24/25 07:20 36.4 C L 70 18 123/87 93 Room Air 07/23/25 23:29 Room Air 07/23/25 23:28 36.7 C 64 18 115/69 93 Room Air 07/23/25 21:30 126/73 Laboratory Results Short CBC 07/24/25 Range/Units 06:44 WBC 9.46 (4.8-10.8) K/ul Hgb 16.0 (14.0-18.0) g/dl Hct 46.1 (42.0-52.0) % Plt Count 198 (130-400) K/uL BMP 07/24/25 06:48 Sodium 136 Potassium 4.3 Chloride 104 Carbon Dioxide 27 BUN 31 H Creatinine 0.64 Glucose 177 H Calcium 8.7 I have independently reviewed and interpreted patient's labs including CBC, BMP, Mag Medications Administered Current Inpatient Medications Acetaminophen (Acetaminophen 500 Mg Tab) 1,000 mg PO Q8 [facility] Stop: 08/21/25 13:59 Last Admin: 07/24/25 05:10 Dose: Not Given Albuterol (Albuterol Hfa 8 Gm Inhaler) 1 puffs INH Q4H PRN PRN Reason: Wheezing Stop: 08/20/25 20:20 Apixaban (Apixaban 5 Mg Tablet) 5 mg PO BID [facility]ULU Stop: 08/20/25 20:59 Last Admin: 07/24/25 08:21 Dose: 5 mg Aspirin (Aspirin 81 Mg Chew) 81 mg PO DAILY [facility] Stop: 08/21/25 08:59 Last Admin: 07/24/25 08:20 Dose: 81 mg Bupropion HCl (Bupropion Xl 300 Mg Tabcr) 300 mg PO DAILY [facility] Stop: 08/21/25 08:59 Last Admin: 07/24/25 08:21 Dose: 300 mg Cephalexin HCl (Cephalexin 500 Mg Cap) 500 mg PO QID MULU; Protocol Stop: 07/28/25 20:59 Last Admin: 07/24/25 12:43 Dose: 500 mg Cyanocobalamin (Cyanocobalamin (B-12) 500 Mcg Tablet) 1,000 mcg PO DAILY [facility] Stop: 08/21/25 08:59 Last Admin: 07/24/25 08:20 Dose: 1,000 mcg Dextrose (Dextrose 50% 50 Ml Syringe) 25 - 50 ml IV UD PRN; Protocol PRN Reason: Hypoglycemia Protocol Stop: 08/20/25 20:20 Fluticasone Furoate (Fluticasone Furoate 100mcg 14 Puffs/Inhaler) 1 puffs INH DAILY [facility] Stop: 08/21/25 08:59 Last Admin: 07/24/25 08:20 Dose: 1 puffs Furosemide (Furosemide 40 Mg Tab) 40 mg PO QAM [facility] Stop: 08/20/25 20:20 Last Admin: 07/24/25 08:21 Dose: 40 mg Glucagon (Glucagon For Inj 1 Mg Vial) 1 mg SQ UD PRN; Protocol PRN Reason: Hypoglycemia Protocol Stop: 08/20/25 20:20 Glucose (Glucose 40% Gel 15 Gm Tube) 15 - 30 gm PO UD PRN; Protocol PRN Reason: Hypoglycemia Protocol Stop: 08/20/25 20:20 Glucose (Glucose 10 Tab/Tube) 4 - 8 tab PO UD PRN; Protocol PRN Reason: Hypoglycemia Protocol Stop: 08/20/25 20:20 Insulin Aspart (Insulin Aspart Per Unit Charge) 0 units SC ACHS [facility] Stop: 08/20/25 21:29 Last Admin: 07/24/25 12:45 Dose: 20 units Insulin Human NPH (Insulin Human Nph) 25 units SC QDB [facility]ULU Stop: 08/21/25 07:29 Last Admin: 07/24/25 08:31 Dose: 25 units Insulin Human NPH (Insulin Human Nph) 0 units SC DAILY@1700 MULU; Protocol Stop: 08/21/25 16:59 Last Admin: 07/23/25 17:25 Dose: 10 units Lactobacillus Acidophilus (Advanced Probiotic 625 Mg Capsule) 625 mg PO DAILY [facility] Stop: 08/21/25 08:59 Last Admin: 07/24/25 08:21 Dose: 625 mg Lidocaine (Lidocaine 5% 1 Patch) 1 patch TD QAM [facility] Stop: 08/22/25 11:14 Last Admin: 07/24/25 07:23 Dose: 1 patch Lisinopril (Lisinopril 20 Mg Tab) 20 mg PO DAILY [facility] Stop: 08/20/25 20:20 Last Admin: 07/24/25 08:20 Dose: 20 mg Metoprolol Succinate (Metoprolol Succ 50mg Ext Rel Tab) 50 mg PO BID [facility] Stop: 08/20/25 20:20 Last Admin: 07/24/25 08:21 Dose: 50 mg Miscellaneous (Carbohydrates For Hypoglycemia ) 15 - 30 gm PO UD PRN PRN Reason: Hypoglycemia Protocol Stop: 08/20/25 20:20 Miscellaneous (Remove Lidoderm Patch) 1 each N/A DAILY@2100 [facility] Stop: 08/22/25 20:59 Last Admin: 07/23/25 21:44 Dose: 1 each Miscellaneous Information (Pharmacy Glycemic Mgmt Consult) 1 each N/A UD PRN PRN Reason: Consult Stop: 08/20/25 20:20 Multivitamins/Minerals (Cerovite Adv Formula Tab) 1 tab PO DAILY [facility] Stop: 08/21/25 08:59 Last Admin: 07/24/25 08:20 Dose: 1 tab Ondansetron HCl (Ondansetron Inj 2 Mg/Ml 2 Ml Vial) 4 mg IV Q4H PRN PRN Reason: Nausea And Vomiting Stop: 08/20/25 20:20 Sertraline HCl (Sertraline Hcl 100 Mg Tablet) 100 mg PO QAM [facility] Stop: 08/21/25 08:59 Last Admin: 07/24/25 08:21 Dose: 100 mg Spironolactone (Spironolactone 25 Mg Tab) 25 mg PO DAILY [facility] Stop: 08/20/25 20:20 Last Admin: 07/24/25 08:21 Dose: 25 mg Tamsulosin HCl (Tamsulosin Hcl 0.4 Mg Cap) 0.4 mg PO QAM [facility] Stop: 08/21/25 08:59 Last Admin: 07/24/25 08:20 Dose: 0.4 mg (1) Back pain Back pain laterality: left Back pain location: low back pain Chronicity: acute Sciatica presence: without sciatica Qualified Code(s): M54.50 - Low back pain, unspecified (3) Open wound of both legs with complication Encounter type: subsequent encounter Qualified Code(s): S81.801D - Unspecified open wound, right lower leg, subsequent encounter; S81.802D - Unspecified open wound, left lower leg, subsequent encounter (10) Hypertension Hypertension type: unspecified Qualified Code(s): I10 - Essential (primary) hypertension
--- NOTE | 2025-07-24 12:32 | Psychiatric Consultation ---
Date of Consultation July 24, 2025 Impression / Recommendations Impression Diagnostically consistent with adjustment disorder with depressed mood in the context of recent fall with subsequent increased back pain which has limited his mobility and independence. Acute risk of self-harm is low given denial of SI, future-oriented, hopeful and feels well supported with positive coping skills. Motivational interviewing done given his methamphetamine use, he is not interested in making any changes at this time. He declines outpatient psychotherapy referral. He feels his psychiatric medications are working well and declines option to make dose adjustments, but agrees he'll consider this in the future if his depression worsens if his back pain progresses or doesn't improve over time. Overall, I spent a total of 45 minutes with this case including review of chart records, review of labwork, review of EKG QTc, direct evaluation of the patient at bedside, counseling the patient, discussion of the patient with the hospitalist provider, discussion with the psychiatric liason during clinical rounds and documentation in the electronic health record. (1) Acute lumbar back pain: (2) Adjustment disorder with depressed mood: Plan -Continue current psychiatric medications -Continue to optimize pain control and ways to increase mobility from recent fall, this will be most significant modifiable risk factor to improve his mood and decrease chronic risk of self-harm -If depression worsens in the future consider either increasing sertraline to 150mg daily OR titrating Wellbutrin XL to 450mg daily Psych History Identifying Data Facundo Botello is a 65 y/o male with insulin-requiring diabetes, chronic HFpEF (EF 60 to 65%, TTE 2024), non-obstructive CAD, PAF on chronic AC with Eliquis, HTN, hyperlipidemia, HCV s/p interferon Rx, and other medical hx listed below Chief Complaint "It's my situation". History of Present Illness Facundo describes some depression and increased difficulty attending to his medical needs and ADLs since he fell out of his recliner and hurt his back at the beginning of the month. He attributes his depression to "it is my situation" but he feels his symptoms are very manageable and that they "will get better". References that thinking about other's difficult situations always reminds him that "things aren't that bad" and that he has a lot of reasons to be happy and grateful for. He is not interested in making any changes to his current antidepressant medications, sertraline 100 mg daily and Wellbutrin extended release 300 mg daily, as he feels that his mood is stable and will improve as he can move more. He identifies the most challenging thing as "I cannot take care of myself because of the pain but it is getting better" and "being in physical pain it hurts so bad to do things". He denies any thoughts of suicide nor any history of prior suicide attempts. He is not interested in any referrals for outpatient therapy or psychiatry noting that "there is not a whole lot I need except being able to start to move around more" and he feels that his primary care provider Dr. Fofana is an excellent support and manages his medications well. He discusses his lifelong history of methamphetamine use and that he has quit a few times throughout his life. Currently he is not interested in making any significant changes to his methamphetamine use nor interested in any referrals for dual diagnosis outpatient services nor residential substance use. He feels that his mobility is starting to improve a little bit and discusses that he is looking forward to watching some good movies on TV today. He worries a little bit about how he will manage once he leaves the hospital but hopes that the pain has turned a corner and that he will be able to manage his diabetes care which was becoming a challenge from the pain. He denies any other questions nor concerns is thankful for our visit. Allergies Allergy/AdvReac Type Severity Reaction Status Date / Time shellfish derived Allergy Severe Swelling Verified 07/19/25 15:01 amoxicillin Allergy Intermediate HIVES Verified 07/19/25 15:01 clavulanic acid Allergy Intermediate HIVES Verified 07/19/25 15:01 permethrin Allergy Intermediate swelling Verified 07/19/25 15:01 shrimp Allergy Intermediate SWELLS Verified 07/19/25 15:01 sulfamethoxazole Allergy Unknown CAN'T Verified 07/19/25 15:01 [From Bactrim] REMEMBER trimethoprim [From Bactrim] Allergy Unknown CAN'T Verified 07/19/25 15:01 REMEMBER insulin glargine AdvReac Severe CHF PER Verified 07/19/25 15:01 [From Lantus U-100 Insulin] [facility] Home Medications Medication Instructions Recorded Confirmed Type ascorbic acid (vitamin C) 500 mg 1,000 mg PO DAILY 09/21/22 07/21/25 History tablet (Vitamin C) multivitamin with minerals 1 tab PO DAILY 09/21/22 07/21/25 History (Multiple Vitamin-Minerals tablet) lisinopril 20 mg tablet 20 mg PO DAILY 10/10/23 07/21/25 History sertraline 100 mg tablet 100 mg PO QAM 10/10/23 07/21/25 History albuterol sulfate 90 mcg/actuation 90 mcg inhalation Q4H PRN Wheezing 06/06/24 07/21/25 History aerosol inhaler fluticasone furoate 100 100 mcg inhalation DAILY 08/05/24 07/21/25 History mcg/actuation blister powder for inhalation (Arnuity Ellipta) metoprolol succinate 50 mg 50 mg PO BID #60 tabs 12/13/24 07/21/25 Rx tablet,extended release 24 hr insulin aspart U-100 100 unit/mL 60 unit subcut TIDWMEAL 12/15/24 07/21/25 History (3 mL) subcutaneous pen (Novolog FlexPen U-100 Insulin aspart) nitroglycerin 0.4 mg sublingual 0.4 mg sublingual DIRECTED PRN 02/28/25 07/21/25 History tablet Chest Pain tamsulosin 0.4 mg capsule 0.4 mg PO QAM 02/28/25 07/21/25 History bupropion HCl 300 mg 24 hr tablet, 300 mg PO DAILY 03/02/25 07/21/25 History extended release cinnamon bark 500 mg capsule 500 mg PO DAILY ##0 03/02/25 07/21/25 History (Cinnamon) metformin 750 mg tablet,extended 750 mg PO DAILY #30 tabs 03/06/25 07/21/25 Rx release 24 hr L.acidop,casei,lactis,rham-B.lact,guanakito 1 cap PO DAILY #30 caps 03/09/25 07/21/25 Rx 625 mg (10 billion cell) capsule (Advanced Probiotic) spironolactone 25 mg tablet 25 mg PO DAILY 04/13/25 07/21/25 History apixaban 5 mg tablet (Eliquis) 5 mg PO BID #74 tabs 04/21/25 07/21/25 Rx aspirin 81 mg chewable tablet 81 mg PO DAILY 06/02/25 07/21/25 History cyanocobalamin (vitamin B-12) 1,000 mcg PO DAILY 06/27/25 07/21/25 History 1,000 mcg tablet,extended release (Vitamin B-12 ER) empagliflozin 25 mg tablet 25 mg PO QAM #30 tabs 07/11/25 07/21/25 Rx (Jardiance) furosemide 20 mg tablet (Lasix) 40 mg (2 x 20 mg) PO QAM #60 tabs 07/11/25 07/21/25 Rx insulin glargine U-300 conc 300 100 unit (0.3333 mL) subcut BID #6 07/11/25 07/21/25 Rx unit/mL (3 mL) subcutaneous pen mL (Toujeo Max U-300 SoloStar) cephalexin 500 mg capsule 500 mg PO Q12H 07/19/25 07/21/25 History Patient History Medical History H/O drug abuse Colon polyp "TVA polyp on colonoscopy 09/2014" H/O toxoplasmosis H/O TB (tuberculosis) Closed head injury Peripheral neuropathy Acute dehydration Dysequilibrium Hepatitis C Diabetes mellitus, type 2 Depression Anxiety Hypertension Surgical History S/P cardiac cath "for abnormal stress test. cath 03/18/2015-essentially normal coronaries with no obstructive disease " H/O colonoscopy "11/2015- diverticulosis" History of umbilical hernia repair x2 History of tooth extraction History of wisdom tooth extraction Family History Mother Family history of diabetes mellitus Father Family history of diabetes mellitus Other No family history of adverse response to anesthesia Social History Smoking Status: Never smoker Second Hand Exposure: No; Do You Dip or Chew Tobacco: No; Hx Alcohol Use: Yes Alcohol type: beer, wine and hard liquor Alcohol Intake Frequency: Monthly or Less Hx Substance Use: Yes Non-Prescribed Medications: Methamphetamines Last Used Substance: Days (ago) Last Used Substance Other:: "A couple of weeks ago" Substance Use Type Other:: MDMA, speed Preferred Language: Nepalese Communication Ability: Effective Visual Impairment: Severely Limited Hearing Ability: Normal [employer] Required: No Beliefs That Will Affect Care: None marital status: Single Current Living Situation: Alone Current Living Situation Comment: lives alone Feels Safe at Home: No Is there a partner from a previous relationship who is making you feel unsafe now?: No Any Concerns about Your Family Situation: No Would You Like to Speak to Someone About Your Situation: No Safety Concerns: Feels Safe At This Time Diet: regular caffeine: Yes Gender Identity: Male Assistive Devices: Cane, Walker and Other Physical Exam Psychiatric: Orientation: alert and oriented x 3 Apperance: appropriately dressed and appropriately groomed Eye Contact: good eye contact Motor Behavior: no abnormal motor movements Speech: normal rate/rhythm/volume of speech Affect: euthymic affect Mood: + depressed mood; no anxious mood Thought Process: linear/logical thought process Thought Content: reality based without delusions Suicidal Thoughts: denies suicidal thoughts Homicidal Thoughts: denies homicidal thoughts Hallucinations: no auditory hallucinations and no visual hallucinations Cognition: recent memory grossly intact, remote memory grossly intact, attention grossly intact and language grossly intact Estimated Intelligence: consistent with education level Insight: + fair insight Judgment: + fair judgement Vital Signs (Past 24 Hours): Last Vital Signs Temp 36.4 C L 07/24/25 07:20 Pulse 70 07/24/25 07:20 Resp 18 07/24/25 07:20 BP 123/87 07/24/25 07:20 Pulse Ox 93 07/24/25 07:20 O2 Del Method Room Air 07/24/25 07:20 Results & Data (PSY) Medications Administered Acetaminophen (Acetaminophen 500 Mg Tab) 1,000 mg PO Q8 MULU Stop: 08/21/25 13:59 Last Admin: 07/24/25 05:10 Dose: Not Given Documented By: andres Admin: 07/23/25 21:42 Dose: 1,000 mg Documented By: andres Admin: 07/23/25 14:05 Dose: 1,000 mg Documented By: Admin: 07/23/25 05:56 Dose: 1,000 mg Documented By: Admin: 07/22/25 20:53 Dose: 1,000 mg Documented By: Admin: 07/22/25 14:53 Dose: 1,000 mg Documented By: JAZMINE Apixaban (Apixaban 5 Mg Tablet) 5 mg PO BID MULU Stop: 08/20/25 20:59 Last Admin: 07/24/25 08:21 Dose: 5 mg Documented By: Admin: 07/23/25 21:38 Dose: 5 mg Documented By: andres Admin: 07/23/25 09:13 Dose: 5 mg Documented By: Admin: 07/22/25 20:44 Dose: 5 mg Documented By: Admin: 07/22/25 08:40 Dose: 5 mg Documented By: Admin: 07/21/25 21:57 Dose: 5 mg Documented By: ZURDO Aspirin (Aspirin 81 Mg Chew) 81 mg PO DAILY MULU Stop: 08/21/25 08:59 Last Admin: 07/24/25 08:20 Dose: 81 mg Documented By: Admin: 07/23/25 09:21 Dose: 81 mg Documented By: Admin: 07/22/25 10:12 Dose: 81 mg Documented By: JAZMINE Bupropion HCl (Bupropion Xl 300 Mg Tabcr) 300 mg PO DAILY MULU Stop: 08/21/25 08:59 Last Admin: 07/24/25 08:21 Dose: 300 mg Documented By: Admin: 07/23/25 09:13 Dose: 300 mg Documented By: Admin: 07/22/25 08:40 Dose: 300 mg Documented By: JAZMINE Cephalexin HCl (Cephalexin 500 Mg Cap) 500 mg PO QID [facility]; Protocol Stop: 07/28/25 20:59 Last Admin: 07/24/25 08:21 Dose: 500 mg Documented By: Admin: 07/23/25 21:38 Dose: 500 mg Documented By: andres Admin: 07/23/25 17:23 Dose: 500 mg Documented By: Admin: 07/23/25 12:16 Dose: 500 mg Documented By: Admin: 07/23/25 09:13 Dose: 500 mg Documented By: Admin: 07/22/25 20:44 Dose: 500 mg Documented By: Admin: 07/22/25 17:46 Dose: 500 mg Documented By: Admin: 07/22/25 12:38 Dose: 500 mg Documented By: Admin: 07/22/25 08:40 Dose: 500 mg Documented By: Admin: 07/21/25 21:56 Dose: 500 mg Documented By: ZURDO Cyanocobalamin (Cyanocobalamin (B-12) 500 Mcg Tablet) 1,000 mcg PO DAILY [facility] Stop: 08/21/25 08:59 Last Admin: 07/24/25 08:20 Dose: 1,000 mcg Documented By: Admin: 07/23/25 09:14 Dose: 1,000 mcg Documented By: Admin: 07/22/25 08:40 Dose: 1,000 mcg Documented By: JAZMINE Fluticasone Furoate (Fluticasone Furoate 100mcg 14 Puffs/Inhaler) 1 puffs INH DAILY MULU Stop: 08/21/25 08:59 Last Admin: 07/24/25 08:20 Dose: 1 puffs Documented By: Admin: 07/23/25 09:14 Dose: 1 puffs Documented By: Admin: 07/22/25 08:41 Dose: 1 puffs Documented By: JAZMINE Furosemide (Furosemide 40 Mg Tab) 40 mg PO QAM MULU Stop: 08/20/25 20:20 Last Admin: 07/24/25 08:21 Dose: 40 mg Documented By: Admin: 07/23/25 09:14 Dose: 40 mg Documented By: Admin: 07/22/25 09:54 Dose: 40 mg Documented By: Admin: 07/21/25 21:56 Dose: 40 mg Documented By: ZURDO Insulin Aspart (Insulin Aspart Per Unit Charge) 0 units SC ACHS MULU Stop: 08/20/25 21:29 Last Admin: 07/24/25 08:24 Dose: 21 units Documented By: YOAV Co-signed By: MONA Admin: 07/23/25 21:38 Dose: 1 units Documented By: andres Co-signed By: YEYO Admin: 07/23/25 17:22 Dose: 19 units Documented By: JAZMINE Co-signed By: LUIS A Admin: 07/23/25 12:21 Dose: 20 units Documented By: BT Co-signed By: GUNN Admin: 07/23/25 09:22 Dose: 18 units Documented By: JAZMINE Co-signed By: LUIS A Admin: 07/22/25 20:52 Dose: 6 units Documented By: ZURDO Co-signed By: DIVYA Admin: 07/22/25 17:44 Dose: 11 units Documented By: JAZMINE Co-signed By: JONATHNA Admin: 07/22/25 12:47 Dose: 22 units Documented By: JAZMINE Co-signed By: RADHA Admin: 07/22/25 10:03 Dose: 7 units Documented By: JAZMINE Co-signed By: RADHA Admin: 07/21/25 22:03 Dose: 6 units Documented By: ZURDO Co-signed By: kennedy Insulin Human NPH (Insulin Human Nph) 25 units SC QDB [facility] Stop: 08/21/25 07:29 Last Admin: 07/24/25 08:31 Dose: 25 units Documented By: YOAV Co-signed By: MONA Admin: 07/23/25 09:21 Dose: 25 units Documented By: JAZMINE Co-signed By: LUIS A Admin: 07/22/25 10:04 Dose: 25 units Documented By: JAZMINE Co-signed By: RADHA Insulin Human NPH (Insulin Human Nph) 0 units SC DAILY@1700 MULU; Protocol Stop: 08/21/25 16:59 Last Admin: 07/23/25 17:25 Dose: 10 units Documented By: JAZMINE Co-signed By: LUIS A Admin: 07/22/25 17:46 Dose: 10 units Documented By: JAZMINE Co-signed By: JONATHAN Lactobacillus Acidophilus (Advanced Probiotic 625 Mg Capsule) 625 mg PO DAILY [facility] Stop: 08/21/25 08:59 Last Admin: 07/24/25 08:21 Dose: 625 mg Documented By: Admin: 07/23/25 09:14 Dose: 625 mg Documented By: Admin: 07/22/25 09:54 Dose: 625 mg Documented By: JAZMIEN Lidocaine (Lidocaine 5% 1 Patch) 1 patch TD QAM [facility] Stop: 08/22/25 11:14 Last Admin: 07/24/25 07:23 Dose: 1 patch Documented By: Admin: 07/23/25 12:15 Dose: 1 patch Documented By: JAZMINE Lisinopril (Lisinopril 20 Mg Tab) 20 mg PO DAILY [facility] Stop: 08/20/25 20:20 Last Admin: 07/24/25 08:20 Dose: 20 mg Documented By: Admin: 07/23/25 09:14 Dose: 20 mg Documented By: Admin: 07/22/25 09:54 Dose: 20 mg Documented By: Admin: 07/21/25 21:56 Dose: 20 mg Documented By: ZURDO Metoprolol Succinate (Metoprolol Succ 50mg Ext Rel Tab) 50 mg PO BID [facility] Stop: 08/20/25 20:20 Last Admin: 07/24/25 08:21 Dose: 50 mg Documented By: Admin: 07/23/25 21:39 Dose: 50 mg Documented By: andres Admin: 07/23/25 09:15 Dose: 50 mg Documented By: Admin: 07/22/25 20:45 Dose: 50 mg Documented By: Admin: 07/22/25 09:54 Dose: 50 mg Documented By: Admin: 07/21/25 22:06 Dose: Not Given Documented By: Admin: 07/21/25 21:56 Dose: 50 mg Documented By: ZURDO Miscellaneous (Remove Lidoderm Patch) 1 each N/A DAILY@2100 MULU Stop: 08/22/25 20:59 Last Admin: 07/23/25 21:44 Dose: 1 each Documented By: andres Multivitamins/Minerals (Cerovite Adv Formula Tab) 1 tab PO DAILY [facility]U Stop: 08/21/25 08:59 Last Admin: 07/24/25 08:20 Dose: 1 tab Documented By: Admin: 07/23/25 09:14 Dose: 1 tab Documented By: Admin: 07/22/25 09:55 Dose: 1 tab Documented By: JAZMINE Sertraline HCl (Sertraline Hcl 100 Mg Tablet) 100 mg PO QAM [facility]ULU Stop: 08/21/25 08:59 Last Admin: 07/24/25 08:21 Dose: 100 mg Documented By: Admin: 07/23/25 09:15 Dose: 100 mg Documented By: Admin: 07/22/25 09:55 Dose: 100 mg Documented By: JAZMINE Spironolactone (Spironolactone 25 Mg Tab) 25 mg PO DAILY MULU Stop: 08/20/25 20:20 Last Admin: 07/24/25 08:21 Dose: 25 mg Documented By: Admin: 07/23/25 09:15 Dose: 25 mg Documented By: Admin: 07/22/25 09:55 Dose: 25 mg Documented By: Admin: 07/21/25 21:56 Dose: 25 mg Documented By: ZURDO Tamsulosin HCl (Tamsulosin Hcl 0.4 Mg Cap) 0.4 mg PO QAM [facility] Stop: 08/21/25 08:59 Last Admin: 07/24/25 08:20 Dose: 0.4 mg Documented By: Admin: 07/23/25 09:15 Dose: 0.4 mg Documented By: Admin: 07/22/25 09:55 Dose: 0.4 mg Documented By: BT Coding Level of Care Code 17169 IN/OBS CONSULT LVL 3,45M Diagnoses Acute lumbar back pain M54.50 Adjustment disorder with depressed mood F43.21
[2025-07-24 23:24] VITALS: RESP 18
[2025-07-25 08:41] VITALS: BP 150/88; PULSE 65; TEMP 97.5; O2SAT 94
[2025-07-25 08:53] LABS: Hematocrit (blood only) 51.5 % (42.0-52.0); Hemoglobin 17.6 g/dl (14.0-18.0); Mean Corpuscular Hemoglobin 29.2 pg (25.0-34.0); Mean Corpuscular Volume 85.5 fL (80.0-100.0); Platelet Count 228 K/uL (130-400); RDW Standard Deviation 41.0 fL (36.4-46.3); Red Blood Count 6.02 M/uL (4.70-6.10); White Blood Count 9.85 K/ul (4.8-10.8)
[2025-07-25] MEDS: INSULIN ASPART PER UNIT CHARGE SC SCH ×2 (08:55→12:09)
[2025-07-25 09:21] LABS: Anion Gap 6.0 (3-11); Creatinine Clr Calc Pharmacy 162.1 ml/min; Glucose 204.0 mg/dl (70-99(Fasting)); Magnesium 2.0 mg/dl (1.7-2.4); Potassium 4.2 mmol/L (3.5-5.1); Sodium 137.0 mmol/L (136-145)
[2025-07-25 09:22] LABS: Blood Urea Nitrogen 25.0 mg/dl (6-23); Calcium 9.1 mg/dl (8.6-10.3); Carbon Dioxide 29.0 mmol/L (21-32); Chloride 102.0 mmol/L (98-107)
--- NOTE | 2025-07-25 11:08 | Discharge Summary ---
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 back pain and leg pain: (2) Open wound of both legs with complication: (3) Diabetes mellitus due to underlying condition, uncontrolled, with hyperglycemia, with long-term current use of insulin: (4) Venous ulcers of both lower extremities: (5) Morbid obesity with BMI of 40.0-44.9, adult: (6) ALEJANDRA (obstructive sleep apnea): (7) Nonischemic cardiomyopathy: (8) Hypertension: Plan This is a 65 y/o male with insulin-requiring diabetes, chronic HFpEF (EF 60 to 65%, TTE 2024), non-obstructive CAD, PAF on chronic AC with Eliquis, HTN, hyperlipidemia, HCV s/p interferon Rx, BPH, depression/anxiety, and history of methamphetamine use who presented on 07/21/2025 with back pain and subsequent inability to care for himself at home. Degenerative disc disease Patient presenting with left hip/leg pain after transferring from chair at home Reports significant pain interfering with mobility and subsequently causing inability to care for self Lumbar x-ray shows multilevel degenerative disc disease and lower lumbar facet osteoarthritis Managed conservatively with lidocaine patch, tylenol, PT Pain improved and patient feels ready to return home Script provided for outpatient PT Uncontrolled insulin-requiring type 2 DM Glucose 349, A1C 10.1 on admission-> patient reports he was not administering insulin at home due to pain as above POC glucose ranging from 160-260 this admission Continue metformin, Jardiance, insulin per home regimen [facility]s with [facility] - next appt 09/13/2025 Bilateral LE cellulitis/wounds Complete 10 day course of Keflex prescribed prior to admission on 07/17/2025 ending 07/27/2025 Follows with [facility] - next appt 07/27/2025 at 1:50pm Chronic HFpEF Continue furosemide and spironolactone Paroxysmal atrial fibrillation Continue Eliquis and metoprolol Non-obstructive CAD Continue baby aspirin Hypertension Continue lisinopril BPH Continue tamsulosin Anxiety/Depression Continue bupropion and sertraline Psych consult 07/24 where patient declined psych med dose adjustments Hx of Methamphetamine Use Started using at age 19 via all methods including snorting, injection, and most recently smoking (last use 4 weeks ago) Psych consult 07/24 where patient declined outpatient psychotherapy referral Patient seen in collaboration with Dr. Denny. Please see addendum. Notes For Next Care Provider 65 year old male admitted at [facility] from 07/21-07/25/2025 for left hip/leg pain causing decreased mobility and inability to care for self at home. Xray showed lumbar DDD and arthritis. Pain managed conservatively and patient felt ready to return home. Encouraged follow up with PCP, Wound Care Clinic, and [facility]. Medication Changes From Visit Lidocaine patches Admission HPI Per Admitting Provider This is a 65 y/o male with insulin-requiring diabetes, chronic HFpEF (EF 60 to 65%, TTE 2024), non-obstructive CAD, PAF on chronic AC with Eliquis, HTN, hyperlipidemia, HCV s/p interferon Rx, and other medical hx listed below. He was recently admitted to our service from 07/09-07/11 for Acute metabolic encephalopathy, DM with hyperglycemia, open wounds of both legs with complication, paroxysmal A-fib, and noncompliance with medication treatment. Antibiotics were given for cellulitis of the legs and lower leg wounds that were present there prior to that admission. He has been following with the wound clinic as an outpatient. patient was seen by the wound clinic yesterday on 07/19 where his venous ulcers of both lower extremities were debrided in the office. He was required to do dressing changes however reported that he was unable to do it himself. Wound clinic had arranged for him to come to the wound center MWF for dressing changes and he was agreeable at that time. He was not placed in compression wraps. Patient reports that he is having issues with caring for himself including the wound dressing, having worsening left lower back pain, Dexcom glucometer is not functioning appropriately, cannot administer insulin correctly, he cannot cook or clean for himself, he is drinking Ensure protein supplement daily, and therefore presented to the ER for possible placement. Pt is most concerned at this time that he is able to eat something. Patient reports that he uses methamphetamine regularly over the course of his life, starting at age 19, states uses it via snorting, injecting, most recently smoked it about 4 weeks ago. Pt was encouraged to seek counselor, therapist or drug rehab program and he states that he has never used this service in the past. Denies cigarette use or alcohol use. Pt did not take any of his morning medications today. Admission Exam Per Admitting Provider General: awake, alert, no apparent distress, obese with BMI 37.3 Head: Normocephalic, atraumatic ENT: PERRL, EOMI, no pharyngeal exudate, mucous membranes moist Chest: Clear to auscultation, on room air, no adventitious breath sounds Cardiac: Regular rate and rhythm, no murmur, no JVD, normal peripheral pulses, good capillary refill Abdominal: NABS x 4 quadrants, soft, nondistended, nontender to palpation, no rebound or guarding Extremities: Normal inspection, + mild peripheral edema, multiple healing wounds over bilateral lower extremities are very well healed. No erythema, calfs nontender to palpation Psych: Normal mood and affect Neuro: AAO x 3, strength intact bilaterally and rated 5/5, no motor deficits, speech is clear, no peripheral sensory deficits Discharge Exam General/Psych: obese, laying in bed, NAD, conversing easily Head: normocephalic, atraumatic Eyes: normal inspection, PERRL, conjunctivae pink ENT: external ear and nose normal, oropharynx normal Neck: normal visual inspection, trachea midline Respiratory: normal respiratory effort, lungs clear to auscultation, no wheeze/rales/rhonchi, no accessory muscle use Cardiovascular: regular rate and rhythm, no murmur/rub/gallop Extremities: no cyanosis or clubbing, normal peripheral pulses, no BLE edema Abdomen/GI: normal bowel sounds, soft, nontender Neurologic/MSK: A+Ox3, motor strength 5/5, moves all extremities Skin: no rashes, normal color, warm and dry, chronic venous stasis skin changes of BLE, multiple wounds with optifoam dressings c/d/i Updated Medication List Medication Instructions Recorded Confirmed Type ascorbic acid (vitamin C) 500 mg 1,000 mg PO DAILY 09/21/22 07/21/25 History tablet (Vitamin C) multivitamin with minerals 1 tab PO DAILY 09/21/22 07/21/25 History (Multiple Vitamin-Minerals tablet) lisinopril 20 mg tablet 20 mg PO DAILY 10/10/23 07/21/25 History sertraline 100 mg tablet 100 mg PO QAM 10/10/23 07/21/25 History albuterol sulfate 90 mcg/actuation 90 mcg inhalation Q4H PRN Wheezing 06/06/24 07/21/25 History aerosol inhaler fluticasone furoate 100 100 mcg inhalation DAILY 08/05/24 07/21/25 History mcg/actuation blister powder for inhalation (Arnuity Ellipta) metoprolol succinate 50 mg 50 mg PO BID #60 tabs 12/13/24 07/21/25 Rx tablet,extended release 24 hr insulin aspart U-100 100 unit/mL 60 unit subcut TIDWMEAL 12/15/24 07/21/25 History (3 mL) subcutaneous pen (Novolog FlexPen U-100 Insulin aspart) nitroglycerin 0.4 mg sublingual 0.4 mg sublingual DIRECTED PRN 02/28/25 07/21/25 History tablet Chest Pain tamsulosin 0.4 mg capsule 0.4 mg PO QAM 02/28/25 07/21/25 History bupropion HCl 300 mg 24 hr tablet, 300 mg PO DAILY 03/02/25 07/21/25 History extended release cinnamon bark 500 mg capsule 500 mg PO DAILY ##0 03/02/25 07/21/25 History (Cinnamon) metformin 750 mg tablet,extended 750 mg PO DAILY #30 tabs 03/06/25 07/21/25 Rx release 24 hr L.acidop,casei,lactis,rham-B.lact,guanakito 1 cap PO DAILY #30 caps 03/09/25 07/21/25 Rx 625 mg (10 billion cell) capsule (Advanced Probiotic) spironolactone 25 mg tablet 25 mg PO DAILY 04/13/25 07/21/25 History apixaban 5 mg tablet (Eliquis) 5 mg PO BID #74 tabs 04/21/25 07/21/25 Rx aspirin 81 mg chewable tablet 81 mg PO DAILY 06/02/25 07/21/25 History cyanocobalamin (vitamin B-12) 1,000 mcg PO DAILY 06/27/25 07/21/25 History 1,000 mcg tablet,extended release (Vitamin B-12 ER) empagliflozin 25 mg tablet 25 mg PO QAM #30 tabs 07/11/25 07/21/25 Rx (Jardiance) furosemide 20 mg tablet (Lasix) 40 mg (2 x 20 mg) PO QAM #60 tabs 07/11/25 07/21/25 Rx insulin glargine U-300 conc 300 100 unit (0.3333 mL) subcut BID #6 07/11/25 07/21/25 Rx unit/mL (3 mL) subcutaneous pen mL (Toujeo Max U-300 SoloStar) cephalexin 500 mg capsule 500 mg PO Q12H 07/19/25 07/21/25 History lidocaine 5 % topical patch 1 patch transdermal QAM #10 ea 07/25/25 Rx Hospital Stay Data Consultations 07/21/25 13:52 ED Decision to Admit Stat 07/24/25 11:06 Consult Psychiatry Routine Diagnostic Imagining Performed Lumbar Spine X-Ray 07/21/25 11:27 Clinical history: Pain Technique: 5 views of the lumbar spine are submitted for review Findings: The lumbar vertebrae are in normal alignment with no listhesis seen. No fracture is identified. There are degenerative spurs from T11-12 through L4-5. There is facet osteoarthritis at L4-5 and L5-S1. No focal osseous lesion is seen. The bowel gas pattern appears unremarkable. Impression: 1. Multilevel degenerative disc disease 2. Lower lumbar facet osteoarthritis Electronically signed by Sukhjinder Leonardo 07-21-2025 12:42 PM Pending Results Patient Have Any Pending Studies at Discharge: No Discharge Instructions Given to Patient (Per Discharging Provider) You presented to the hospital with left hip/leg pain after getting out of your chair at home. The pain you were experiencing was preventing you from being able to take care of yourself at home. Your pain improved with medicine and physical therapy. You are feeling well enough to return home. You were provided with lidocaine patches to continue using at home and a script for outpatient Physical Therapy. Please take this script to any Physical Therapy location near your home for continued therapy. It is important that you manage your diabetes and take your insulin to prevent hyperglycemia and complications. It is also important that you continue to follow up with the Wound Clinic for management of the wounds on your legs. MEDICATION CHANGES: Lidocaine patch - apply to left hip/leg for 12 hours and then remove for 12 hours SUMMARY OF TEST RESULTS: Lumbar x-ray showed degenerative disc disease and arthritis in the lumbar spine PENDING TEST RESULTS: None RECOMMENDATIONS FOR FOLLOW-UP: Please follow up with your PCP on 07/30/2025 at 11:00am to discuss this hospitalization Please follow up at the Wound Clinic on 07/27/2025 at 1:50pm OTHER INSTRUCTIONS: Seek medical attention if you have: * temperature above 101 * chest pain or trouble breathing * abdominal pain, nausea, vomiting * diarrhea, dark stools or bloody stools * any unanswered questions or concerns Call 911 if symptoms are severe. It has been a pleasure taking care of you. Please take care of yourself. If you have any questions regarding your recent hospitalization please contact [facility] and request Tomi Lovelace @ [phone]. Total Time Total Time Spent Total Time Spent (In Minutes): I spent a total of 35 minutes coordinating, documenting and providing care for this patient excluding time spent in the performance of separately billed services or time spent by another provider/QHP. Supervising Physician Co-Signing Physician Notes Patient is seen and examined on day of discharge. Left hip pain is much improved. Offers no other complaints. Admits to use amphetamines. Counseled to quit amphetamine use. On exam patient is obese, no apparent distress, normocephalic atraumatic, EOMI, normal breath sounds, clear to auscultation, S1- S2, no murmur, mild erythematous lower extremity,+ left lower extremity varicose veins abdomen soft, nontender, normal bowel sounds, alert, awake, oriented, grossly no focal deficits. Patient is manage for left hip pain thought to be musculoskeletal in origin. Also was treated for bilateral lower extremity cellulitis with wounds. Advised to complete antibiotic course as prescribed. Also advised to follow-up with vascular surgery for treatment of varicose veins. Advised to quit amphetamine use. I personally interviewed and examined the patient at bedside. I have reviewed the advanced practitioner's documentation on the date of service referred in note and agree with plan. Patient's care is coordinated with Sheree MACKEY. Please refer to the documentation above for details of patient's presentation and for discussion of other issues. I spent a total [id number] coordinating, documenting, and providing care for this patient excluding time spent in the performance of separately billed services or time spent by another provider/QHP.
== END 2025-07-25 12:47 | disposition home or self-care (01) | DRG 552 ==
LOC: ED 10:24 → SUATTDRO 14:04 → 3N 14:04 → INTOOBSV 14:04 → 3N 19:42

== ENCOUNTER 2025-08-29 10:18 | Inpatient (IN) ==
--- NOTE | 2025-08-29 10:50 | Emergency Department Note ---
Impression & Plan Acute hyperglycemia, Nonadherence to medication ED Provider Note NAME: ELIN ELLISON AGE: 65 SEX: M : 1960 ARRIVES VIA: Walk-In INFORMANT: Patient, ED PROVIDER(S): Vasiliy Coreas MD CHIEF COMPLAINT: Shortness of breath MEDICAL DECISION MAKING: Patient presents with above. IV was established and blood work was obtained along with EKG troponin chest x-ray. Patient was ordered 500 of IV fluids. The patient's blood work shows a normal white count hemoglobin and platelet count kidney function is unremarkable. Patient with a blood sugar of 600. Urinalysis shows glucose. COVID flu RSV testing negative. Chest x-ray shows possible pneumonia at the left lung base. An insulin drip was ordered. Given the patient's significant hyperglycemia I did speak the on-call hospitalist service and the patient was admitted to the medicine service. Critical Care: I have personally spent 35 minutes of critical care time in direct management of this patient. This includes bedside care, interpretation of diagnostic studies, and testing, discussion with consultants, patient, and family members, and other require inpatient management activities. This 35 minutes is in excess of all separately billable procedures. Discussion w/ other healthcare providers: KEY Brady and Dr. Noble inpatient medicine service Prior /Outside records reviewed: none Differential diagnosis: Reactive airway disease, pneumonia, pneumothorax, COPD, CHF, ACS, pulmonary embolism, musculoskeletal, GERD as well as other pathologies were considered. Diagnostics, as interpreted by me: ECG: Normal sinus rhythm, rate of 85, normal intervals, normal axis no ST elevations or TWI. Cardiac monitoring: An order was placed for continuous cardiac monitoring. The monitor shows a rate of 85 with sinus rhythm. Patient was placed on pulse oximetry Medical decision rules: none Imaging studies: I informally interpreted the patient's chest x-ray does not show obvious pneumothorax with formal report to follow. HPI: Patient presents due to concern for shortness of breath. The patient states that he noticed this upon waking this morning. He was seen 2 days ago for a fall as well as confusion was noted to have elevated blood sugar at that time. The patient has not checked his blood sugar this morning. He states that he did not take his medications today and maybe only took some of his medications yesterday. He denies any falls or trauma since the time he was seen on the . Patient denies any abdominal pain or nausea. He denies any chest pains. He denies any cough. Non-smoker. He does occasionally use alcohol but not recently. He denies any drug use. PAST MEDICAL HISTORY: See Below PAST SURGICAL HISTORY: See Below SOCIAL HISTORY: See Below HOME MEDICATIONS: See Below ALLERGIES: See Below VITALS: See Below PHYSICAL EXAMINATION: GENERAL: NAD, non-toxic. EYE EXAM: Normal conjunctiva. PERRL, no anisocoria and EOM's grossly intact w/o pain. OROPHARYNX: Moist mucus membranes, grossly normal dentition. NECK: Trachea midline, no stridor. LUNGS: Clear to auscultation. Normal chest wall mechanics. HEART: NSR, no MRG. ABDOMEN: Abdomen soft, reducible hernia noted in the midline, no masses, no rebound or guarding. BACK: No CVA TTP. SKIN: No rashes and no bruising. UPPER EXTREMITIES: Upper extremities are grossly normal. LOWER EXTREMITIES: Bilateral lower extremities in wraps but no obvious significant swelling. NEURO EXAM: Awake and alert, follows commands, no obvious facial asymmetry, normal speech, moves all 4 extremities. Past Med/Surg History Problem List (Updated 08/29/25 @ 17:12 by Vasiliy Coreas MD) Nonadherence to medication (Acute) Acute hyperglycemia (Acute) Acute hyperglycemia (Acute) CHI (closed head injury) (Acute) Loss of protective sensation of skin of deformed foot 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 back pain and leg pain Adjustment disorder with depressed mood Stroke-like symptom (Acute) Acute hyperglycemia (Acute) Acute metabolic encephalopathy Open wound of both legs with complication Wound of left lower extremity Diabetic ulcer of left great toe (Acute) Acute hypoxemic respiratory failure Hyperglycemia due to diabetes mellitus (Acute) Diabetic foot ulcer (Acute) Diabetes mellitus due to underlying condition, uncontrolled, with hyperglycemia, with long-term current use of insulin Major depressive disorder Chronic venous insufficiency (Acute) Venous ulcers of both lower extremities (Acute) Paroxysmal atrial tachycardia Paroxysmal atrial fibrillation Methamphetamine abuse PAC (premature atrial contraction) Diabetic peripheral neuropathy (Acute) Diabetic neuropathic arthritis Unable to care for self (Acute) Ambulatory dysfunction (Acute) BPH (benign prostatic hyperplasia) Anxiety and depression Morbid obesity with BMI of 40.0-44.9, adult ALEJANDRA (obstructive sleep apnea) Hyperglycemia (Acute) Nonischemic cardiomyopathy (Chronic) "prior EF 30% per [facility] records. echo 02/2015- EF 40-45%" DM type 2 (diabetes mellitus, type 2) (Chronic) Hepatitis C (Chronic) Hypertension (Chronic) Hyperglycemia due to type 2 diabetes mellitus (Acute) Polyneuropathy Peripheral vascular disease Depression Encephalopathy Varicose veins of bilateral lower extremities with other complications Morbid obesity Medical History Coronary artery disease Chronic heart failure with preserved ejection fraction (HFpEF) Venous stasis ulcer of right lower leg with edema of right lower leg Hyperglycemia Unable to care for self Noncompliance with medications Noncompliance w/medication treatment due to intermit use of medication H/O drug abuse Colon polyp "TVA polyp on colonoscopy 09/2014" H/O toxoplasmosis H/O TB (tuberculosis) Closed head injury Peripheral neuropathy Acute dehydration Dysequilibrium Hepatitis C Diabetes mellitus, type 2 Depression Anxiety Hypertension Surgical History S/P cardiac cath "for abnormal stress test. cath 03/18/2015-essentially normal coronaries with no obstructive disease " H/O colonoscopy "11/2015- diverticulosis" History of umbilical hernia repair x2 History of tooth extraction History of wisdom tooth extraction Family History Mother Family history of diabetes mellitus Father Family history of diabetes mellitus Other No family history of adverse response to anesthesia Social History Smoking Status: Never smoker Second Hand Exposure: No; Do You Dip or Chew Tobacco: No; Hx Alcohol Use: Yes Alcohol type: beer, wine and hard liquor Alcohol Intake Frequency: Monthly or Less Hx Substance Use: Yes Non-Prescribed Medications: Methamphetamines Last Used Substance: Days (ago) Last Used Substance Other:: "A couple of weeks ago" Substance Use Type Other:: MDMA, speed Preferred Language: Micronesian Communication Ability: Effective Visual Impairment: Severely Limited Hearing Ability: Normal Residential Manager Required: No Beliefs That Will Affect Care: None marital status: Single Current Living Situation: Alone Current Living Situation Comment: lives alone Feels Safe at Home: Yes Diet: regular caffeine: Yes Gender Identity: Male Assistive Devices: Cane, Walker and Other Allergies Allergies Allergy/AdvReac Type Severity Reaction Status Date / Time shellfish derived Allergy Severe Swelling Verified 08/24/25 07:59 amoxicillin Allergy Intermediate HIVES Verified 08/24/25 07:59 clavulanic acid Allergy Intermediate HIVES Verified 08/24/25 07:59 permethrin Allergy Intermediate swelling Verified 08/24/25 07:59 shrimp Allergy Intermediate SWELLS Verified 08/24/25 07:59 sulfamethoxazole Allergy Unknown CAN'T Verified 08/24/25 07:59 [From Bactrim] REMEMBER trimethoprim [From Bactrim] Allergy Unknown CAN'T Verified 08/24/25 07:59 REMEMBER insulin glargine AdvReac Severe CHF PER Verified 08/24/25 07:59 [From Lantus U-100 Insulin] [facility] Home Meds Home Medications Medication Instructions Recorded Confirmed ascorbic acid (vitamin C) 500 mg 1,000 mg PO DAILY 09/21/22 08/29/25 tablet (Vitamin C) multivitamin with minerals 1 tab PO DAILY 09/21/22 08/29/25 (Multiple Vitamin-Minerals tablet) lisinopril 20 mg tablet 20 mg PO DAILY 10/10/23 08/29/25 sertraline 100 mg tablet 100 mg PO QAM 10/10/23 08/29/25 albuterol sulfate 90 mcg/actuation 90 mcg inhalation Q4H PRN Wheezing 06/06/24 08/29/25 aerosol inhaler fluticasone furoate 100 100 mcg inhalation DAILY 08/05/24 08/29/25 mcg/actuation blister powder for inhalation (Arnuity Ellipta) insulin aspart U-100 100 unit/mL 0 unit subcut TIDWMEAL 12/15/24 08/29/25 (3 mL) subcutaneous pen (Novolog FlexPen U-100 Insulin aspart) nitroglycerin 0.4 mg sublingual 0.4 mg sublingual DIRECTED PRN 02/28/25 08/29/25 tablet Chest Pain tamsulosin 0.4 mg capsule 0 mg PO QAM 02/28/25 08/29/25 bupropion HCl 300 mg 24 hr tablet, 0 mg PO DAILY 03/02/25 08/29/25 extended release cinnamon bark 500 mg capsule 500 mg PO DAILY ##0 03/02/25 08/29/25 (Cinnamon) spironolactone 25 mg tablet 0 mg PO DAILY 04/13/25 08/29/25 aspirin 81 mg chewable tablet 81 mg PO DAILY 06/02/25 08/29/25 cyanocobalamin (vitamin B-12) 1,000 mcg PO DAILY 06/27/25 08/29/25 1,000 mcg tablet,extended release (Vitamin B-12 ER) empagliflozin 25 mg tablet 0 mg PO QAM 08/29/25 08/29/25 (Jardiance) metformin 750 mg tablet,extended 0 mg PO DAILY 08/29/25 08/29/25 release 24 hr metoprolol succinate 50 mg 0 mg PO BID 08/29/25 08/29/25 tablet,extended release 24 hr Previous Rx's Medication Instructions Recorded L.acidop,casei,lactis,rham-B.lact,guanakito 1 cap PO DAILY #30 caps 03/09/25 625 mg (10 billion cell) capsule (Advanced Probiotic) apixaban 5 mg tablet (Eliquis) 5 mg PO BID #74 tabs 04/21/25 furosemide 20 mg tablet (Lasix) 40 mg (2 x 20 mg) PO QAM #60 tabs 07/11/25 insulin glargine U-300 conc 300 100 unit (0.3333 mL) subcut BID #6 07/11/25 unit/mL (3 mL) subcutaneous pen mL (Toujeo Max U-300 SoloStar) lidocaine 5 % topical patch 1 patch transdermal QAM #10 ea 07/25/25 Results & Data (ED) Vital Signs Vital Signs - 24 hr 08/29/25 10:34 08/29/25 10:52 08/29/25 11:10 Temperature 36.7 C Temperature Source Skin Pulse Rate 91 H Pulse Rate [Apical] Pulse Rhythm [Apical] Pulse Strength [Apical] Respiratory Rate 20 Respiratory Effort / Characteristics Non-Labored Spontaneous Non-Labored Spontaneous Respiratory Depth Normal Normal Respiratory Pattern Regular Regular Blood Pressure 153/85 H Blood Pressure [Right Arm] Blood Pressure Mean 107 Blood Pressure Mean [Right Arm] Pulse Oximetry 99 95 Oxygen Delivery Method Room Air Room Air Oxygen Flow Rate Sepsis Recent Fever Within 48 Hours No Sepsis New/Unexplained Change in Mental Status N/A Sepsis Action Taken by Nursing No Action Required Oxygen Flow Rate - Titration 08/29/25 11:10 08/29/25 11:10 08/29/25 11:10 Temperature Temperature Source Pulse Rate Pulse Rate [Apical] 85 Pulse Rhythm [Apical] Regular Pulse Strength [Apical] Normal Respiratory Rate 20 Respiratory Effort / Characteristics Non-Labored Spontaneous Respiratory Depth Normal Respiratory Pattern Regular Blood Pressure Blood Pressure [Right Arm] 170/97 H Blood Pressure Mean Blood Pressure Mean [Right Arm] 121 Pulse Oximetry 94 94 94 Oxygen Delivery Method Room Air Room Air Room Air Oxygen Flow Rate 0 Sepsis Recent Fever Within 48 Hours Sepsis New/Unexplained Change in Mental Status Sepsis Action Taken by Nursing Oxygen Flow Rate - Titration 0 08/29/25 11:21 Temperature Temperature Source Pulse Rate 88 Pulse Rate [Apical] Pulse Rhythm [Apical] Pulse Strength [Apical] Respiratory Rate Respiratory Effort / Characteristics Respiratory Depth Respiratory Pattern Blood Pressure Blood Pressure [Right Arm] Blood Pressure Mean Blood Pressure Mean [Right Arm] Pulse Oximetry Oxygen Delivery Method Oxygen Flow Rate Sepsis Recent Fever Within 48 Hours Sepsis New/Unexplained Change in Mental Status Sepsis Action Taken by Nursing Oxygen Flow Rate - Titration Home Medications Current Medication List: was personally reviewed by me Laboratory Data Attestation: I reviewed the patient's lab results. 08/29/25 10:58 08/29/25 10:58 Lab Results 08/29/25 08/29/25 08/29/25 Range/Units 10:58 11:00 11:04 WBC 9.03 (4.8-10.8) K/ul RBC 5.92 (4.70-6.10) M/uL Hgb 17.4 (14.0-18.0) g/dL Hct 50.2 (42.0-52.0) % MCV 84.8 (80.0-100.0) fL MCH 29.4 (25.0-34.0) pg MCHC 34.7 (32.0-36.0) g/dL RDW Std Deviation 41.0 (36.4-46.3) fL RDW Coeff of Marc 13.1 (11.5-14.5) % Plt Count 229 (130-400) K/uL MPV 9.7 (9.4-12.4) fL Immature Gran % (Auto) 0.6 % Neut % (Auto) 65.2 % Lymph % (Auto) 25.1 % Wharton % (Auto) 6.2 % Eos % (Auto) 1.8 % Baso % (Auto) 1.1 % Neut # (Auto) 5.89 (1.40-6.50) K/uL Lymph # (Auto) 2.27 (1.20-3.40) K/uL Wharton # (Auto) 0.56 (0.11-0.59) K/uL Eos # (Auto) 0.16 (0.00-0.50) K/uL Baso # (Auto) 0.10 (0.00-0.20) K/uL Immature Gran # (Auto) 0.05 (0.01-0.20) K/uL PT 9.8 (9.0-12.0) Seconds INR 0.9 (0.9-1.1) APTT 28 (21-31) Seconds PTT Ratio 1.0 Sodium 132 L (136-145) mmol/L Potassium 4.8 (3.5-5.1) mmol/L Chloride 95 L (98-107) mmol/L Carbon Dioxide 30 (21-32) mmol/L Anion Gap 7 (3-11) BUN 20 (6-23) mg/dl Creatinine 0.74 (0.6-1.4) mg/dl Est Cr Clr Drug Dosing 129.8 ml/min eGFR 101.81 BUN/Creatinine Ratio 27.0 H (10-20) Glucose 602 H* (70-99(Fasting)) mg/dl POC Glucose 530 H* (70-99) mg/dl Calcium 9.6 (8.6-10.3) mg/dl Magnesium 2.1 (1.7-2.4) mg/dl Total Bilirubin 0.6 (0.2-1.0) mg/dl AST 28 (13-39) U/L ALT 27 (7-52) U/L Alkaline Phosphatase 82 (34-104) U/L Troponin I High Sens 15.0 (0-20) pg/ml Total Protein 6.8 (6.0-8.3) gm/dl Albumin 3.8 (3.4-5.0) gm/dl Globulin 3.0 (2.5-4.0) gm/dl Albumin/Globulin Ratio 1.3 (0.9-2) Urine Color Urine Appearance (Clear) Urine pH (4.5-7.5) Ur Specific Basin (1.000-1.030) Urine Protein (Negative) Urine Glucose (UA) (Negative) Urine Ketones (Negative) Urine Blood (Negative) Urine Nitrite (Negative) Urine Bilirubin (Negative) Urine Urobilinogen (Negative) Ur Leukocyte Esterase (Negative) Urine Comment SARS-CoV-2 (PCR) NEGATIVE (Negative) Influenza Type A (PCR) Negative (Neg) Influenza Type B (PCR) Negative (Neg) RSV (RT-PCR) Negative (Neg) 08/29/25 08/29/25 08/29/25 Range/Units 11:05 12:07 12:32 WBC (4.8-10.8) K/ul RBC (4.70-6.10) M/uL Hgb (14.0-18.0) g/dL Hct (42.0-52.0) % MCV (80.0-100.0) fL MCH (25.0-34.0) pg MCHC (32.0-36.0) g/dL RDW Std Deviation (36.4-46.3) fL RDW Coeff of Marc (11.5-14.5) % Plt Count (130-400) K/uL MPV (9.4-12.4) fL Immature Gran % (Auto) % Neut % (Auto) % Lymph % (Auto) % Wharton % (Auto) % Eos % (Auto) % Baso % (Auto) % Neut # (Auto) (1.40-6.50) K/uL Lymph # (Auto) (1.20-3.40) K/uL Wharton # (Auto) (0.11-0.59) K/uL Eos # (Auto) (0.00-0.50) K/uL Baso # (Auto) (0.00-0.20) K/uL Immature Gran # (Auto) (0.01-0.20) K/uL PT (9.0-12.0) Seconds INR (0.9-1.1) APTT (21-31) Seconds PTT Ratio Sodium (136-145) mmol/L Potassium (3.5-5.1) mmol/L Chloride (98-107) mmol/L Carbon Dioxide (21-32) mmol/L Anion Gap (3-11) BUN (6-23) mg/dl Creatinine (0.6-1.4) mg/dl Est Cr Clr Drug Dosing ml/min eGFR BUN/Creatinine Ratio (10-20) Glucose (70-99(Fasting)) mg/dl POC Glucose 528 H* 482 H* (70-99) mg/dl Calcium (8.6-10.3) mg/dl Magnesium (1.7-2.4) mg/dl Total Bilirubin (0.2-1.0) mg/dl AST (13-39) U/L ALT (7-52) U/L Alkaline Phosphatase (34-104) U/L Troponin I High Sens (0-20) pg/ml Total Protein (6.0-8.3) gm/dl Albumin (3.4-5.0) gm/dl Globulin (2.5-4.0) gm/dl Albumin/Globulin Ratio (0.9-2) Urine Color Yellow Urine Appearance Clear (Clear) Urine pH 6.5 (4.5-7.5) Ur Specific Basin 1.031 H (1.000-1.030) Urine Protein Negative (Negative) Urine Glucose (UA) 3+ H (Negative) Urine Ketones Negative (Negative) Urine Blood Negative (Negative) Urine Nitrite Negative (Negative) Urine Bilirubin Negative (Negative) Urine Urobilinogen Negative (Negative) Ur Leukocyte Esterase Negative (Negative) Urine Comment SARS-CoV-2 (PCR) (Negative) Influenza Type A (PCR) (Neg) Influenza Type B (PCR) (Neg) RSV (RT-PCR) (Neg) Administered Medications Insulin Human Regular 250 (units/ Sodium Chloride) 250 mls @ 7.4 mls/hr IV .Q24H [facility]; Protocol Stop: 09/28/25 11:59 Last Titration: 08/29/25 17:01 Dose: 4.4 units/hr, 4.4 mls/hr Documented By: zoraida Co-signed By: LCD Titration: 08/29/25 15:59 Dose: 7.4 units/hr, 7.4 mls/hr Documented By: zoraida Co-signed By: LCD Titration: 08/29/25 14:53 Dose: 6.2 units/hr, 6.2 mls/hr Documented By: zoraida Co-signed By: LCD Titration: 08/29/25 13:41 Dose: 5.2 units/hr, 5.2 mls/hr Documented By: zoraida Co-signed By: RADHA Admin: 08/29/25 12:31 Dose: 4.3 units/hr, 4.3 mls/hr Documented By: CIERA Co-signed By: CRISTOPHER Insulin Aspart (Insulin Aspart Per Unit Charge) 0 units SC ACHS MULU Stop: 09/28/25 16:29 Last Admin: 08/29/25 16:47 Dose: Not Given Documented By: zoraida Co-signed By: MR Discontinued Medications Sodium Chloride (Nss) 500 mls @ 999 mls/hr IV .Q31M STA Stop: 08/29/25 11:25 Last Infusion: 08/29/25 11:40 Dose: Infused Documented By: zoraida Admin: 08/29/25 11:06 Dose: 999 mls/hr Documented By: zoraida Insulin Human Regular (Novolin-R Bolus From Bag) 4.5 units IV ONE ONE Stop: 08/29/25 12:16 Last Admin: 08/29/25 12:34 Dose: 4.5 units Documented By: CIERA Co-signed By: CRISTOPHER Imaging Data Radiologist's Impression: Chest X-Ray 08/29/25 10:55 XR chest 1V portable CLINICAL HISTORY: Dyspnea COMPARISON STUDY: 08/27/2025 FINDINGS: Stable mild cardiomegaly without pulmonary vascular congestion. There is mild stranding at the left lung base. No other consolidation or pleural effusion seen. No pneumothorax. IMPRESSION: Atelectasis versus early pneumonia left lung base. ACT 112: Negative or not required by law. Electronically signed by: Ajay Swartz M.D. 08/29/2025 11:55 AM Discharge Plan Visit Data Chief Complaint: Shortness of Breath/Dyspnea Stated Complaint: DIFFICULTY BREATHING, WEAKNESS ED Provider: Vasiily Coreas Discharge Problem: Acute hyperglycemia, Nonadherence to medication Patient Disposition: Admitted As Inpatient Condition: Good Discharge Instructions Interventions: ED Discharge Assessment Last Done: 08/29/25 15:00
[2025-08-29] MEDS: SODIUM CHLORIDE 0.9% 500 ML IV STA (11:06)
[2025-08-29 11:12] LABS: Hematocrit (blood only) 50.2 % (42.0-52.0); Hemoglobin 17.4 g/dL (14.0-18.0); Immature Granulocytes # (auto) 0.05 K/uL (0.01-0.20); Immature Granulocytes % (auto) 0.6 %; Mean Corpuscular Hemoglobin 29.4 pg (25.0-34.0); Mean Corpuscular Volume 84.8 fL (80.0-100.0); Platelet Count 229 K/uL (130-400); RDW Standard Deviation 41.0 fL (36.4-46.3); Red Blood Count 5.92 M/uL (4.70-6.10); White Blood Count 9.03 K/ul (4.8-10.8)
[2025-08-29 11:34] LABS: Alanine Aminotransferase 27.0 U/L (7-52); Albumin Globulin Ratio 1.3 (0.9-2); Albumin Level 3.8 gm/dl (3.4-5.0); Alkaline Phosphatase 82.0 U/L (34-104); Anion Gap 7.0 (3-11); Bilirubin,Total 0.6 mg/dl (0.2-1.0); Blood Urea Nitrogen 20.0 mg/dl (6-23); Calcium 9.6 mg/dl (8.6-10.3); Carbon Dioxide 30.0 mmol/L (21-32); Chloride 95.0 mmol/L (98-107); Creatinine Clr Calc Pharmacy 129.8 ml/min; Globulin 3.0 gm/dl (2.5-4.0); Glucose 602.0 mg/dl (70-99(Fasting)); Magnesium 2.1 mg/dl (1.7-2.4); Potassium 4.8 mmol/L (3.5-5.1); Sodium 132.0 mmol/L (136-145); Total Protein 6.8 gm/dl (6.0-8.3)
[2025-08-29 11:39] LABS: INR 0.9 (0.9-1.1); Partial Thromboplastin Time 28 Seconds (21-31); Prothrombin Time 9.8 Seconds (9.0-12.0)
--- NOTE | 2025-08-29 11:56 | XRay Report ---
XR chest 1V portable CLINICAL HISTORY: Dyspnea COMPARISON STUDY: 08/27/2025 FINDINGS: Stable mild cardiomegaly without pulmonary vascular congestion. There is mild stranding at the left lung base. No other consolidation or pleural effusion seen. No pneumothorax. IMPRESSION: Atelectasis versus early pneumonia left lung base. ACT 112: Negative or not required by law. Electronically signed by: Ajay Swartz M.D. 08/29/2025 11:55 AM
[2025-08-29] MEDS ORDERED: STAT IV Infusion **Titration per Protocol STA (11:59)
[2025-08-29] MEDS ORDERED: INSULIN PROTOCOL GOAL RANGE ONE (11:59)
[2025-08-29] MEDS ORDERED: SEVERE STRESS LEVEL ONE (11:59)
[2025-08-29 12:08] LABS: Influenza A virus by PCR Negative (Neg); Influenza B virus by PCR Negative (Neg); SARS CoV2 RNA(COVID-19) Ceph NEGATIVE (Negative)
[2025-08-29] MEDS ORDERED: GLUCAGON FOR INJ 1 MG VIAL SQ PRN (12:15)
[2025-08-29] MEDS ORDERED: CARBOHYDRATES FOR HYPOGLYCEMIA PO PRN (12:15)
[2025-08-29] MEDS ORDERED: DEXTROSE 50% 50 ML SYRINGE IV PRN (12:15)
[2025-08-29] MEDS ORDERED: GLUCOSE 10 TAB/TUBE PO PRN (12:15)
[2025-08-29] MEDS ORDERED: GLUCOSE 40% GEL 15 GM TUBE PO PRN (12:15)
[2025-08-29] MEDS: INSULIN REGULAR 250 UNITS in SODIUM CHLORIDE 0.9% 247.5 ML IV SCH (12:31)
[2025-08-29] MEDS: NovoLIN-R BOLUS FROM BAG IV ONE (12:34)
--- NOTE | 2025-08-29 12:34 | History & Physical Report ---
Date of Service August 29, 2025 Assessment & Plan (1) Acute hyperglycemia: (2) Diabetes mellitus due to underlying condition, uncontrolled, with hyperglycemia, with long-term current use of insulin: (3) Venous ulcers of both lower extremities: (4) Chronic heart failure with preserved ejection fraction (HFpEF): (5) Paroxysmal atrial fibrillation: (6) Coronary artery disease: (7) Hypertension: (8) BPH (benign prostatic hyperplasia): (9) Anxiety: (10) Methamphetamine abuse: Plan 65 year old male with PMH significant for insulin-requiring diabetes, venous ulcers of bilateral LE, chronic HFpEF, non-obstructive CAD, PAF on chronic AC with Eliquis, HTN, hyperlipidemia, HCV s/p interferon Rx, BPH, depression/anxiety, and methamphetamine use who presents to the ED on 08/29/2025 with SOB. Acute hyperglycemia Uncontrolled insulin-requiring type 2 DM Glucose 602 on admission A1C 10.1 in Jul 2025-> recheck in am On metformin, Jardiance, insulin at home-> admits to poor compliance with medications [facility] - next appt 09/13/2025 Started on insulin drip in ED-> transition to SQ insulin per protocol BSG checks q1hr while on insulin drip Glycemic pharmacy consult sports complex attendant consult Noncompliance Med rec reveals that patient has not recently refilled multiple prescriptions including lasix, Novolog, Jardiance, metformin, metoprolol, spironolactone, tamsulosin PT/OT consults CM consult Venous ulcers of both lower extremities Follows with [facility] No leukocytosis or signs of infection at this time WOCN consult Continue coban wraps MWF and PRN Chronic HFpEF TTE in December 2024 revealed EF 60-65%, mild aortic valve sclerosis, grade I diastolic dysfunction CXR without congestion Patient appears euvolemic Continue furosemide and spironolactone Paroxysmal atrial fibrillation Rate controlled Continue Eliquis and metoprolol Non-obstructive CAD Continue baby aspirin Hypertension Continue lisinopril BPH Continue tamsulosin Anxiety/Depression Continue bupropion and sertraline Methamphetamine abuse Started using at age 19 via all methods including snorting, injection, and most recently smoking Last use on 08/21 per wound clinic note Obtain drug screen Patient declined psych consult to discuss counseling Reports he is going to continue to use meth DVT Prophylaxis: on Eliquis Code Status: FULL CODE - As per discussion at bedside with the patient. PCP: Willam Fofana Disposition: admit to med surg Patient seen in collaboration with Dr. Noble. Please see addendum. I spent a total of 70 minutes coordinating, documenting and providing care for this patient excluding time spent in the performance of separately billed services or time spent by another provider/QHP. Admission and Anticipated Discharge Date Admission Date: August 29, 2025 History of Present Illness Chief Complaint: SOB Primary Care Provider: Willam Fofana, DO 65 year old male with PMH significant for insulin-requiring diabetes, chronic HFpEF (EF 60 to 65%, TTE 2024), non-obstructive CAD, PAF on chronic AC with Eliquis, HTN, hyperlipidemia, HCV s/p interferon Rx, BPH, depression/anxiety, and methamphetamine use who presents to the ED on 08/29/2025 with SOB. 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 Presents again today due to SOB that started today but is resolved upon time of evaluation. Reports he did not take any of his medications including insulin today. Also did not take any oral medications yesterday, only his insulin. He has been following with the wound clinic for venous ulcers of both legs, notes he is missing his appointment today. Admits to meth use in the last couple weeks but is unsure of exact last use. Admits he has not been taking good care of himself at home. Allergies Allergy/AdvReac Type Severity Reaction Status Date / Time shellfish derived Allergy Severe Swelling Verified 08/24/25 07:59 amoxicillin Allergy Intermediate HIVES Verified 08/24/25 07:59 clavulanic acid Allergy Intermediate HIVES Verified 08/24/25 07:59 permethrin Allergy Intermediate swelling Verified 08/24/25 07:59 shrimp Allergy Intermediate SWELLS Verified 08/24/25 07:59 sulfamethoxazole Allergy Unknown CAN'T Verified 08/24/25 07:59 [From Bactrim] REMEMBER trimethoprim [From Bactrim] Allergy Unknown CAN'T Verified 08/24/25 07:59 REMEMBER insulin glargine AdvReac Severe CHF PER Verified 08/24/25 07:59 [From Lantus U-100 Insulin] [facility] Home Medications Medication Instructions Recorded Confirmed Type ascorbic acid (vitamin C) 500 mg 1,000 mg PO DAILY 09/21/22 08/29/25 History tablet (Vitamin C) multivitamin with minerals 1 tab PO DAILY 09/21/22 08/29/25 History (Multiple Vitamin-Minerals tablet) lisinopril 20 mg tablet 20 mg PO DAILY 10/10/23 08/29/25 History sertraline 100 mg tablet 100 mg PO QAM 10/10/23 08/29/25 History albuterol sulfate 90 mcg/actuation 90 mcg inhalation Q4H PRN Wheezing 06/06/24 08/29/25 History aerosol inhaler fluticasone furoate 100 100 mcg inhalation DAILY 08/05/24 08/29/25 History mcg/actuation blister powder for inhalation (Arnuity Ellipta) insulin aspart U-100 100 unit/mL 0 unit subcut TIDWMEAL 12/15/24 08/29/25 History (3 mL) subcutaneous pen (Novolog FlexPen U-100 Insulin aspart) nitroglycerin 0.4 mg sublingual 0.4 mg sublingual DIRECTED PRN 02/28/25 History tablet Chest Pain tamsulosin 0.4 mg capsule 0 mg PO QAM 02/28/25 08/29/25 History bupropion HCl 300 mg 24 hr tablet, 0 mg PO DAILY 03/02/25 08/29/25 History extended release cinnamon bark 500 mg capsule 500 mg PO DAILY ##0 03/02/25 08/29/25 History (Cinnamon) L.acidop,casei,lactis,rham-B.lact,guanakito 1 cap PO DAILY #30 caps 03/09/25 08/29/25 Rx 625 mg (10 billion cell) capsule (Advanced Probiotic) spironolactone 25 mg tablet 0 mg PO DAILY 04/13/25 08/29/25 History apixaban 5 mg tablet (Eliquis) 5 mg PO BID #74 tabs 04/21/25 08/29/25 Rx aspirin 81 mg chewable tablet 81 mg PO DAILY 06/02/25 08/29/25 History cyanocobalamin (vitamin B-12) 1,000 mcg PO DAILY 06/27/25 08/29/25 History 1,000 mcg tablet,extended release (Vitamin B-12 ER) furosemide 20 mg tablet (Lasix) 40 mg (2 x 20 mg) PO QAM #60 tabs 07/11/25 08/29/25 Rx insulin glargine U-300 conc 300 100 unit (0.3333 mL) subcut BID #6 07/11/25 08/29/25 Rx unit/mL (3 mL) subcutaneous pen mL (Toujeo Max U-300 SoloStar) lidocaine 5 % topical patch 1 patch transdermal QAM #10 ea 07/25/25 08/29/25 Rx empagliflozin 25 mg tablet 0 mg PO QAM 08/29/25 08/29/25 History (Jardiance) metformin 750 mg tablet,extended 0 mg PO DAILY 08/29/25 08/29/25 History release 24 hr metoprolol succinate 50 mg 0 mg PO BID 08/29/25 08/29/25 History tablet,extended release 24 hr Past Med/Surg History Problem List (Updated 08/29/25 @ 17:12 by Vasiliy Coreas MD) Nonadherence to medication (Acute) Acute hyperglycemia (Acute) Acute hyperglycemia (Acute) CHI (closed head injury) (Acute) Loss of protective sensation of skin of deformed foot 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 back pain and leg pain Adjustment disorder with depressed mood Stroke-like symptom (Acute) Acute hyperglycemia (Acute) Acute metabolic encephalopathy Open wound of both legs with complication Wound of left lower extremity Diabetic ulcer of left great toe (Acute) Acute hypoxemic respiratory failure Hyperglycemia due to diabetes mellitus (Acute) Diabetic foot ulcer (Acute) Diabetes mellitus due to underlying condition, uncontrolled, with hyperglycemia, with long-term current use of insulin Major depressive disorder Chronic venous insufficiency (Acute) Venous ulcers of both lower extremities (Acute) Paroxysmal atrial tachycardia Paroxysmal atrial fibrillation Methamphetamine abuse PAC (premature atrial contraction) Diabetic peripheral neuropathy (Acute) Diabetic neuropathic arthritis Unable to care for self (Acute) Ambulatory dysfunction (Acute) BPH (benign prostatic hyperplasia) Anxiety and depression Morbid obesity with BMI of 40.0-44.9, adult ALEJANDRA (obstructive sleep apnea) Hyperglycemia (Acute) Nonischemic cardiomyopathy (Chronic) "prior EF 30% per Epic records. echo 02/2015- EF 40-45%" DM type 2 (diabetes mellitus, type 2) (Chronic) Hepatitis C (Chronic) Hypertension (Chronic) Hyperglycemia due to type 2 diabetes mellitus (Acute) Polyneuropathy Peripheral vascular disease Depression Encephalopathy Varicose veins of bilateral lower extremities with other complications Morbid obesity Medical History Coronary artery disease Chronic heart failure with preserved ejection fraction (HFpEF) Venous stasis ulcer of right lower leg with edema of right lower leg Hyperglycemia Unable to care for self Noncompliance with medications Noncompliance w/medication treatment due to intermit use of medication H/O drug abuse Colon polyp "TVA polyp on colonoscopy 09/2014" H/O toxoplasmosis H/O TB (tuberculosis) Closed head injury Peripheral neuropathy Acute dehydration Dysequilibrium Hepatitis C Diabetes mellitus, type 2 Depression Anxiety Hypertension Surgical History S/P cardiac cath "for abnormal stress test. cath 03/18/2015-essentially normal coronaries with no obstructive disease " H/O colonoscopy "11/2015- diverticulosis" History of umbilical hernia repair x2 History of tooth extraction History of wisdom tooth extraction Family History Mother Family history of diabetes mellitus Father Family history of diabetes mellitus Other No family history of adverse response to anesthesia Social History Smoking Status: Never smoker Second Hand Exposure: No; Do You Dip or Chew Tobacco: No; Hx Alcohol Use: Yes Alcohol type: beer, wine and hard liquor Alcohol Intake Frequency: Monthly or Less Hx Substance Use: Yes Non-Prescribed Medications: Methamphetamines Last Used Substance: Days (ago) Last Used Substance Other:: "A couple of weeks ago" Substance Use Type Other:: MDMA, speed Preferred Language: Macedonian Communication Ability: Effective Visual Impairment: Severely Limited Hearing Ability: Normal Child Day Care Provider Required: No Beliefs That Will Affect Care: None marital status: Single Current Living Situation: Alone Current Living Situation Comment: lives alone Feels Safe at Home: Yes Diet: regular caffeine: Yes Gender Identity: Male Assistive Devices: Cane, Walker and Other Review of Systems Review of Systems: All systems reviewed & are unremarkable except as noted in HPI & below Physical Exam Physical Exam: General/Psych: obese, sitting up in bed, NAD, conversing easily Head: normocephalic, atraumatic Eyes: normal inspection, PERRL, conjunctivae pink ENT: external ear and nose normal, oropharynx normal Neck: normal visual inspection, trachea midline Respiratory: normal respiratory effort, lungs clear to auscultation, no wheeze/rales/rhonchi, no accessory muscle use Cardiovascular: regular rate and rhythm, no murmur/rub/gallop Extremities: no cyanosis or clubbing, normal peripheral pulses Abdomen/GI: normal bowel sounds, soft, nontender Neurologic/MSK: A+Ox3, motor strength 5/5, moves all extremities Skin: no rashes, normal color, warm and dry, coban wraps to BLE c/d/i Results & Data Results & Data Vital Signs (Past 12 Hours) Vital Signs Temp Pulse Pulse Resp BP BP Pulse Ox 08/29/25 11:21 88 08/29/25 11:10 94 08/29/25 11:10 85 20 170/97 H 94 08/29/25 11:10 94 08/29/25 10:52 95 08/29/25 10:34 36.7 C 91 H 20 153/85 H 99 O2 Del Method O2 Flow Rate 08/29/25 11:21 08/29/25 11:10 Room Air 0 08/29/25 11:10 Room Air 08/29/25 11:10 Room Air 08/29/25 10:52 Room Air 08/29/25 10:34 Room Air Laboratory Results Short CBC 08/29/25 Range/Units 10:58 WBC 9.03 (4.8-10.8) K/ul Hgb 17.4 (14.0-18.0) g/dL Hct 50.2 (42.0-52.0) % Plt Count 229 (130-400) K/uL BMP 08/29/25 10:58 Sodium 132 L Potassium 4.8 Chloride 95 L Carbon Dioxide 30 BUN 20 Creatinine 0.74 Glucose 602 H* Calcium 9.6 Liver Function 08/29/25 Range/Units 10:58 Total Bilirubin 0.6 (0.2-1.0) mg/dl AST 28 (13-39) U/L ALT 27 (7-52) U/L Alkaline Phosphatase 82 (34-104) U/L Albumin 3.8 (3.4-5.0) gm/dl I have independently reviewed and interpreted patient's admitting labs including CBC, CMP, PTT, PT/INR, mag and troponin. Diagnostic Findings Chest X-Ray 08/29/25 10:55 XR chest 1V portable CLINICAL HISTORY: Dyspnea COMPARISON STUDY: 08/27/2025 FINDINGS: Stable mild cardiomegaly without pulmonary vascular congestion. There is mild stranding at the left lung base. No other consolidation or pleural effusion seen. No pneumothorax. IMPRESSION: Atelectasis versus early pneumonia left lung base. ACT 112: Negative or not required by law. Electronically signed by: Ajay Swartz M.D. 08/29/2025 11:55 AM ECG Additional Comments: I have independently reviewed and interpreted patient's admitting EKG which revealed: NSR at a rate of 85bpm Code Status & VTE Plan Code Status Full Code Supervising Physician Co-Signing Physician Notes Attending addendum: The patient was seen and examined in emergency room He was brought in with high blood sugar and has been complaining of increasing shortness of breath with minimal exertion His blood sugar has been running more than 300 at home Denies any chest pain and/or palpitation with shortness of breath Denies any abdominal pain, nausea or vomiting He has been under wound care as an outpatient for the leg wounds On examination Lying in bed without any acute distress Hemodynamically stable and is afebrile Chestdecreased breath sounds bilaterally Abdomendistended, soft and bowel sound present HeartS1, S2 regular Extremities1+ edema bilaterally and right leg is bandaged with evidence of right leg wounds His labs, EKG and imaging studies reviewed Noted to have significant hyperglycemia at 602 without any evidence of acidosis Noncompliance with diabetes management Started on intravenous insulin with glycemic pharmacist consult Will ask wound care to evaluate and care for the leg woundsno evidence of infection at this time Agree with assessment and plan as outlined above by Sheree MACKEY and take the full responsibility of care in the hospital Total time taken to review the chart, medications, examining the patient and discussion with the patient about the plan was [address] Taylor Noble (7) Hypertension Hypertension type: unspecified Qualified Code(s): I10 - Essential (primary) hypertension
[2025-08-29 12:43] LABS: Appearance Urine Clear (Clear); Glucose Urine UA 3+ (Negative)
[2025-08-29] MEDS ORDERED: ACETAMINOPHEN 325 MG TAB PO PRN (15:00)
[2025-08-29] MEDS ORDERED: PHARMACY GLYCEMIC MGMT CONSULT PRN (15:00)
[2025-08-29] MEDS ORDERED: ALBUTEROL HFA 8 GM INHALER INH PRN (16:04)
[2025-08-29] MEDS: INSULIN ASPART PER UNIT CHARGE SC SCH ×2 (16:47→20:59)
[2025-08-29 18:35] LABS: Amphetamines+Metham, Urine Neg (Neg); MDMA (Ecstacy), Urine Neg (Neg); Marijuana, Urine Neg (Neg)
[2025-08-29] MEDS: APIXABAN 5 MG TABLET PO SCH (20:49)
[2025-08-29] MEDS: METOPROLOL SUCC 50MG EXT REL TAB PO SCH (20:49)
[2025-08-29] MEDS: INSULIN HUMAN NPH SC ONE (22:03)
[2025-08-30] MEDS: INSULIN ASPART PER UNIT CHARGE SC SCH (02:06)
--- NOTE | 2025-08-30 05:57 | Electrocardiogram Report ---
Test Reason : Blood Pressure : */* mmHG Vent. Rate : 85 BPM Atrial Rate : 85 BPM P-R Int : 192 ms QRS Dur : 86 ms QT Int : 380 ms P-R-T Axes : 61 75 52 degrees QTcB Int : 452 ms Normal sinus rhythm Low voltage QRS Poor R wave progression, consider anterior IL vs. lead placement vs. LVH When compared with ECG of 27-Aug-2025 08:38, Premature atrial complexes are no longer Present Confirmed by Iftikhar Burns ([id number]) on 08/30/2025 5:56:52 AM Referred By: REFERRED SELF Confirmed By: Iftikhar Burns
[2025-08-30 06:49] LABS: Hematocrit (blood only) 50.8 % (42.0-52.0); Hemoglobin 17.4 g/dL (14.0-18.0); Mean Corpuscular Hemoglobin 28.8 pg (25.0-34.0); Mean Corpuscular Volume 84.1 fL (80.0-100.0); Platelet Count 215 K/uL (130-400); RDW Standard Deviation 41.4 fL (36.4-46.3); Red Blood Count 6.04 M/uL (4.70-6.10); White Blood Count 11.95 K/ul (4.8-10.8)
[2025-08-30 07:22] LABS: Anion Gap 7.0 (3-11); Blood Urea Nitrogen 16.0 mg/dl (6-23); Calcium 9.1 mg/dl (8.6-10.3); Carbon Dioxide 26.0 mmol/L (21-32); Chloride 104.0 mmol/L (98-107); Creatinine Clr Calc Pharmacy 169.2 ml/min; Glucose 199.0 mg/dl (70-99(Fasting)); Magnesium 1.9 mg/dl (1.7-2.4); Potassium 4.0 mmol/L (3.5-5.1); Sodium 137.0 mmol/L (136-145)
[2025-08-30 07:44] LABS: Hemoglobin A1C 10.9 % (4.5-5.6)
[2025-08-30] MEDS: INSULIN HUMAN NPH SC ONE (08:57)
[2025-08-30] MEDS: SERTRALINE HCL 100 MG TABLET PO SCH (09:02)
[2025-08-30] MEDS: FUROSEMIDE 40 MG TAB PO SCH (09:02)
[2025-08-30] MEDS: TAMSULOSIN HCL 0.4 MG CAP PO SCH (09:02)
[2025-08-30] MEDS: ASPIRIN 81 MG ECTAB PO SCH (09:02)
[2025-08-30] MEDS: CYANOCOBALAMIN (B-12) 500 MCG TABLET PO SCH (09:02)
[2025-08-30] MEDS: SPIRONOLACTONE 25 MG TAB PO SCH (09:02)
[2025-08-30] MEDS: FLUTICASONE FUROATE 100MCG 14 PUFFS/INHALER INH SCH (09:06)
[2025-08-30] MEDS: INSULIN HUMAN REGULAR PER UNIT 10 UNITS in SYRINGE 9.9 ML IV ONE (12:25)
--- NOTE | 2025-08-30 14:33 | Pharmacy Report ---
Pharmacy Glycemic Short Note 2 - Date of Service August 30, 2025 - Glycemic Short BSG Results (Last 24 hours): 08/29/25 08/29/25 08/29/25 14:49 15:52 16:56 Glucose POC Glucose 321 H* 273 H 172 H 08/29/25 08/29/25 08/29/25 18:00 19:07 19:31 Glucose POC Glucose 180 H 116 H 120 H 08/29/25 08/29/25 08/29/25 19:53 20:32 21:32 Glucose POC Glucose 111 H 134 H 186 H 08/30/25 08/30/25 08/30/25 02:02 05:28 07:34 Glucose 199 H POC Glucose 272 H 314 H* 08/30/25 11:34 Glucose POC Glucose 357 H* OUTPATIENT ANTIDIABETIC REGIMEN: * Toujeo 100 units SQ BID * Novolog 60 units SQ with breakfast and dinner, 20 units with lunch * metformin ER 750mg PO daily * Jardiance 25mg PO daily HbA1c: 10.9% on 08/30/25 ASSESSMENT: * Facundo is a 65 year old male who was admitted last evening with acute hyperglycemia and shortness of breath. (Patient reportedly admitted to poor compliance with mediations.) BSG on arrival was 602mg/dL. An insulin drip was started in the ED and pharmacy was consulted for glycemic management. * Blood glucose quickly improved and by HS was 134mg/dL. The insulin drip was stopped at that time, novolin N 10 units SQ x 1 was given (he reportedly has an allergy to Lantus), and he was started on a bolus insulin regimen based on data from previous admissions. AG =7 and CO2 = 32 on admitting labs. * Fasting BSG kuldeep to 314mg/L this morning. NPH 30 units SQ x 1 was ordered and an NPH scale (0, 10, or 15 units depending on BSG) was added for dinner time. * BSG kuldeep to 357mg/dL at lunch so 10 units of regular insulin IV x 1 was given, and the CR of the bolus insulin was tightened. PLAN FOR INPATIENT GLYCEMIC CONTROL: * Hold outpatient diabetes medications * Basal insulin * NPH 10 units SQ x 1 08/29 PM, NPH 30 units SQ this AM, NPH scale at dinner time (0, 10, or 15 units depending on BSG) * Bolus insulin * NovoLog per scale ACHS or Q6hrs while NPO * Goal Range: Low 120 mg/dL - High 150 mg/dL * Correction Factor: 15 mg/dL/unit * Nutritional / Prandial insulin per carb ratio of 1 unit per 4 grams CHO consumed
--- NOTE | 2025-08-30 16:26 | Hospitalist Progress Note ---
Date of Service August 30, 2025 Assessment & Plan (1) Acute hyperglycemia: (2) Diabetes mellitus due to underlying condition, uncontrolled, with hyperglycemia, with long-term current use of insulin: (3) Venous ulcers of both lower extremities: (4) Chronic heart failure with preserved ejection fraction (HFpEF): (5) Paroxysmal atrial fibrillation: (6) Coronary artery disease: (7) Hypertension: (8) BPH (benign prostatic hyperplasia): (9) Anxiety: (10) Methamphetamine abuse: Plan 65 year old male with PMH significant for insulin-requiring diabetes, venous ulcers of bilateral LE, chronic HFpEF, non-obstructive CAD, PAF on chronic AC with Eliquis, HTN, hyperlipidemia, HCV s/p interferon Rx, BPH, depression/anxiety, and methamphetamine use who presents to the ED on 08/29/2025 with SOB. Acute hyperglycemia Uncontrolled insulin-requiring type 2 DM -Glucose 602 on admission -A1C 10.1 in Jul 2025-> recheck in am -On metformin, Jardiance, insulin at home-> admits to poor compliance with medications Plan: -[facility] - next appt 09/13/2025 -pharmacy consult, glycemic control -BSG checks q1hr while on insulin drip -Glycemic pharmacy consult -senior health educator consult -patient agreeable to psych consult for depression and meth use Noncompliance -Med rec reveals that patient has not recently refilled multiple prescriptions including lasix, Novolog, Jardiance, metformin, metoprolol, spironolactone, tamsulosin -PT/OT consults -CM consult Venous ulcers of both lower extremities -Follows with Wound Care Clinic -WOCN consult -Continue coban wraps MWF and PRN Chronic HFpEF -TTE in December 2024 revealed EF 60-65%, mild aortic valve sclerosis, grade I diastolic dysfunction -CXR without congestion -Patient appears euvolemic -Continue furosemide and spironolactone Paroxysmal atrial fibrillation -Rate controlled -Continue Eliquis and metoprolol Non-obstructive CAD -Continue baby aspirin Hypertension -Continue lisinopril BPH -Continue tamsulosin Anxiety/Depression -Continue bupropion and sertraline Methamphetamine abuse -Started using at age 19 via all methods including snorting, injection, and most recently smoking -Last use on 08/21 per wound clinic note -Obtain drug screen -Patient declined psych consult to discuss counseling -Reports he is going to continue to use meth I spent a total of 50 minutes in direct patient care, including [id number] time with the patient and/or family, reviewing medical records, ordering and reviewing diagnostic tests, and coordinating care with other healthcare providers. This time includes: history taking, physical examination, medical decision making, counseling, ECG interpretation, imaging interpretation, lab interpretation, orders, and education, excluding time spent in the performance of separately billed services. Admission and Anticipated Discharge Date Admission Date: August 29, 2025 Subjective Patient seen and examined at bedside. States he started using meth again. States he has been very depressed recently so he stopped taking his medications. Review of Systems Review of Systems: CONSTITUTIONAL: fatigued EYES: Patient denies any visual symptoms. EARS, NOSE, AND THROAT: No difficulties with hearing. No symptoms of rhinitis or sore throat. CARDIOVASCULAR: Patient denies chest pains, palpitations, orthopnea and paroxysmal nocturnal dyspnea. RESPIRATORY: No dyspnea on exertion, no wheezing or cough. GI: No nausea, vomiting, diarrhea, constipation, abdominal pain, hematochezia or melena. : No urinary hesitancy or dribbling. No nocturia or urinary frequency. No abn ormal urethral discharge. MUSCULOSKELETAL: No myalgias or arthralgias. NEUROLOGIC: No chronic headaches, no seizures. Patient denies numbness, tingling or weakness. PSYCHIATRIC: Patient denies problems with mood disturbance. No problems with anxiety. ENDOCRINE: No excessive urination or excessive thirst. DERMATOLOGIC: Patient denies any rashes or skin changes. Physical Exam Physical Exam: Gen: A&O 3 NAD, fatigued HEENT: NCAT, EOMI, not icteric. External ears normal. No rhinorrhea. Moist mucous membranes. Neck: Supple, full range of motion, no observable masses, No meningeal sign. Lungs: No Respiratory distress. CV: RRR, no edema. Abdomen: Soft, nondistended, No rebound tenderness. MSK: bilateral leg wounds Skin: No rashes, petechiae, lesions. Normal color per patient. Neuro: Normal Gait, Grossly intact. Psych: Appropriate for situation. Results & Data Results & Data Vital Signs (Past 12 Hours) Vital Signs Temp Pulse Resp BP Pulse Ox O2 Del Method 08/30/25 14:35 36.7 C 72 16 91/55 L 91 Room Air 08/30/25 08:30 Room Air 08/30/25 07:24 37 C 77 12 139/78 93 Room Air Laboratory Results -personally reviewed, WBC only marginally elevated likely 2/2 hyperglycemia Medications Administered Apixaban (Apixaban 5 Mg Tablet) 5 mg PO BID MULU Stop: 09/28/25 20:59 Last Admin: 08/30/25 09:02 Dose: 5 mg Documented By: Admin: 08/29/25 20:49 Dose: 5 mg Documented By: zoraida Aspirin (Aspirin 81 Mg Ectab) 81 mg PO DAILY MULU Stop: 09/29/25 08:59 Last Admin: 08/30/25 09:02 Dose: 81 mg Documented By: GEORGE Bupropion HCl (Bupropion Xl 300 Mg Tabcr) 300 mg PO DAILY MULU Stop: 09/29/25 08:59 Last Admin: 08/30/25 09:02 Dose: 300 mg Documented By: GEORGE Cyanocobalamin (Cyanocobalamin (B-12) 500 Mcg Tablet) 1,000 mcg PO DAILY MULU Stop: 09/29/25 08:59 Last Admin: 08/30/25 09:02 Dose: 1,000 mcg Documented By: GEORGE Fluticasone Furoate (Fluticasone Furoate 100mcg 14 Puffs/Inhaler) 1 puffs INH DAILY MULU Stop: 09/29/25 08:59 Last Admin: 08/30/25 09:06 Dose: Not Given Documented By: GEORGE Furosemide (Furosemide 40 Mg Tab) 40 mg PO QAM MULU Stop: 09/29/25 08:59 Last Admin: 08/30/25 09:02 Dose: 40 mg Documented By: GEORGE Insulin Aspart (Insulin Aspart Per Unit Charge) 0 units SC ACHS MULU Stop: 09/28/25 20:59 Last Admin: 08/30/25 12:25 Dose: 24 units Documented By: GEORGE Co-signed By: JUAN Admin: 08/30/25 08:56 Dose: 19 units Documented By: GEORGE Co-signed By: JUAN Admin: 08/29/25 20:59 Dose: 11 units Documented By: zoraida Co-signed By: [facility] Lisinopril (Lisinopril 20 Mg Tab) 20 mg PO DAILY MULU Stop: 09/29/25 08:59 Last Admin: 08/30/25 09:02 Dose: 20 mg Documented By: GEORGE Metoprolol Succinate (Metoprolol Succ 50mg Ext Rel Tab) 50 mg PO BID [facility] Stop: 09/28/25 20:59 Last Admin: 08/30/25 09:02 Dose: 50 mg Documented By: Admin: 08/29/25 20:49 Dose: 50 mg Documented By: zoraida Sertraline HCl (Sertraline Hcl 100 Mg Tablet) 100 mg PO QAM [facility] Stop: 09/29/25 08:59 Last Admin: 08/30/25 09:02 Dose: 100 mg Documented By: EGORGE Spironolactone (Spironolactone 25 Mg Tab) 25 mg PO DAILY [facility] Stop: 09/29/25 08:59 Last Admin: 08/30/25 09:02 Dose: 25 mg Documented By: GEORGE Tamsulosin HCl (Tamsulosin Hcl 0.4 Mg Cap) 0.4 mg PO QAM [facility] Stop: 09/29/25 08:59 Last Admin: 08/30/25 09:02 Dose: 0.4 mg Documented By: GEORGE (7) Hypertension Hypertension type: unspecified Qualified Code(s): I10 - Essential (primary) hypertension
[2025-08-30] MEDS: INSULIN HUMAN NPH SC SCH (17:23)
[2025-08-30 20:41] VITALS: PULSE 67
[2025-08-31 06:53] LABS: Hematocrit (blood only) 49.2 % (42.0-52.0); Hemoglobin 17.3 g/dL (14.0-18.0); Mean Corpuscular Hemoglobin 29.7 pg (25.0-34.0); Mean Corpuscular Volume 84.5 fL (80.0-100.0); Platelet Count 197 K/uL (130-400); RDW Standard Deviation 41.2 fL (36.4-46.3); Red Blood Count 5.82 M/uL (4.70-6.10); White Blood Count 11.13 K/ul (4.8-10.8)
[2025-08-31 07:18] LABS: Anion Gap 6.0 (3-11); Blood Urea Nitrogen 22.0 mg/dl (6-23); Calcium 8.9 mg/dl (8.6-10.3); Carbon Dioxide 26.0 mmol/L (21-32); Chloride 103.0 mmol/L (98-107); Creatinine Clr Calc Pharmacy 155.5 ml/min; Glucose 259.0 mg/dl (70-99(Fasting)); Potassium 4.6 mmol/L (3.5-5.1); Sodium 135.0 mmol/L (136-145)
[2025-08-31 07:49] VITALS: BP 139/84; RESP 16; TEMP 97.9; O2SAT 95
[2025-08-31] MEDS: INSULIN HUMAN NPH SC SCH (09:45)
[2025-08-31] MEDS ORDERED: ONDANSETRON INJ 2 MG/ML 2 ML VIAL IV PRN (10:34)
--- NOTE | 2025-08-31 11:11 | CT Scan Report ---
CT OF THE ABDOMEN AND PELVIS WITHOUT CONTRAST CLINICAL HISTORY: Epigastric pain. COMPARISON STUDY: CT of the abdomen and pelvis July 12, 2025. TECHNIQUE: Axial images of the abdomen and pelvis were obtained without IV contrast. Images were revi ewed in the axial, sagittal, and coronal planes. Automated exposure control was utilized for the leonard dy. A dose lowering technique was utilized adhering to the principles of ALARA. FINDINGS: Numerous ill-defined nodular densities within the lower lungs are similar to CT of July 12, 2025. The largest is within the lateral basal segment of the left lower lobe on image 51 of 405 me asuring 1.1 cm. No pneumatosis, free air or portal venous gas is present. There are no renal, uretera l or bladder calculi. Evaluation of the remainder of the abdomen and pelvis is suboptimal on this une nhanced exam. Lateral segment is mildly enlarged. There is slight lobular contour of the liver. No he patic lesions are identified on unenhanced exam. A low-attenuation 1.8 cm right adrenal nodule is unc hanged. This favors an adenoma. Spleen, left adrenal gland, kidneys and pancreas are unremarkable on unenhanced exam. There is no biliary or pancreatic ductal dilatation. There is no evidence for a vijaya l obstruction. No bowel wall thickening is identified on unenhanced exam. The appendix is normal. Is no lymphadenopathy. There are no fluid collections. Bladder is mildly distended. No acute fractures w ithin the lumbar spine, pelvis or hips are identified. IMPRESSION: 1. No urinary calculi or hydronephrosis. 2. No acute process within the abdomen or pelvis on unenhanced exam. No bowel obstruction. Normal nataly endix. 3. No change in numerous ill-defined nodular densities within the lower lungs since CT of July 12, 2025. These remain indeterminate and a chest CT in 3 months for reassessment is recommended. ACT 112: Negative or not required by law. Electronically signed by: Gualberto Buitrago M.D. 08/31/2025 11:10 AM
[2025-08-31] MEDS: ONDANSETRON INJ 2 MG/ML 2 ML VIAL IV SCH (12:52)
--- NOTE | 2025-08-31 15:11 | Discharge Summary ---
Discharge Summary Date of Service August 31, 2025 Principal Dx & Hospital Course #1 = Principal Diagnosis (1) Acute hyperglycemia: (2) Diabetes mellitus due to underlying condition, uncontrolled, with hyperglycemia, with long-term current use of insulin: (3) Venous ulcers of both lower extremities: (4) Chronic heart failure with preserved ejection fraction (HFpEF): (5) Paroxysmal atrial fibrillation: (6) Coronary artery disease: (7) Hypertension: (8) BPH (benign prostatic hyperplasia): (9) Anxiety: (10) Methamphetamine abuse: Plan 65 year old male with PMH significant for insulin-requiring diabetes, venous ulcers of bilateral LE, chronic HFpEF, non-obstructive CAD, PAF on chronic AC with Eliquis, HTN, hyperlipidemia, HCV s/p interferon Rx, BPH, depression/anxiety, and methamphetamine use who presents to the ED on 08/29/2025 with SOB. Acute hyperglycemia Uncontrolled insulin-requiring type 2 DM -Glucose 602 on admission -A1C 10.1 in Jul 2025-> recheck in am -On metformin, Jardiance, insulin at home-> admits to poor compliance with medications Plan: -[facility] - next appt 09/13/2025 -patient told psychiatry he was not interested in depression assistance -discharge on same insulin medications as prior -discussed with pharmacy Noncompliance -PT/OT consults -CM consult -discussed need for patient to take medications with patient, education provided Venous ulcers of both lower extremities -Follows with Wound Care Clinic -WOCN consult -Continue coban wraps MWF and PRN Chronic HFpEF -TTE in December 2024 revealed EF 60-65%, mild aortic valve sclerosis, grade I diastolic dysfunction -CXR without congestion -Patient appears euvolemic -Continue furosemide and spironolactone Paroxysmal atrial fibrillation -Rate controlled -Continue Eliquis and metoprolol Non-obstructive CAD -Continue baby aspirin Hypertension -Continue lisinopril BPH -Continue tamsulosin Anxiety/Depression -Continue bupropion and sertraline Methamphetamine abuse -Started using at age 19 via all methods including snorting, injection, and most recently smoking -Last use on 08/21 per wound clinic note Notes For Next Care Provider 65 year old male with PMH significant for insulin-requiring diabetes, venous ulcers of bilateral LE, chronic HFpEF, non-obstructive CAD, PAF on chronic AC with Eliquis, HTN, hyperlipidemia, HCV s/p interferon Rx, BPH, depression/anxiety, and methamphetamine use who presents to the ED on 08/29/2025 with SOB. Found to have hyperglycemia, admitted to medicine. On medicine, hy perglycemia improved with insulin. Wound care consulted for legs. Psychiatry consulted for depression, patient refused psychiatric assistance, states he is going to continue using meth. PT/OT recommended [facility] or other alternative living arrangement, patient strongly refused but did accept home healthcare. Nausea noted, CT abdomen and pelvis unremarkable. On 08/31/2025 patient medically stable for discharge home. To do: [ ] wound care clinic if needed [ ] promote meth cessation/rehab [ ] help with diabetes medications -Incidental Findings: lung nodules Medication Changes From Visit -see below Admission HPI Per Admitting Provider 65 year old male with PMH significant for insulin-requiring diabetes, chronic HFpEF (EF 60 to 65%, TTE 2024), non-obstructive CAD, PAF on chronic AC with Eliquis, HTN, hyperlipidemia, HCV s/p interferon Rx, BPH, depression/anxiety, and methamphetamine use who presents to the ED on 08/29/2025 with SOB. Patient was seen in the ED two days ago when he fell trying to corn picker a piece of toast and struck his head but was discharged home. Presents again today due to SOB that started today but is resolved upon time of evaluation. Reports he did not take any of his medications including insulin today. Also did not take any oral medications yesterday, only his insulin. He has been following with the wound clinic for venous ulcers of both legs, notes he is missing his appointment today. Admits to meth use in the last couple weeks but is unsure of exact last use. Admits he has not been taking good care of himself at home. Discharge Exam Gen: A&O 3 NAD, fatigued HEENT: NCAT, EOMI, not icteric. External ears normal. No rhinorrhea. Moist mucous membranes. Neck: Supple, full range of motion, no observable masses, No meningeal sign. Lungs: No Respiratory distress. CV: RRR, no edema. Abdomen: Soft, nondistended, No rebound tenderness. MSK: bilateral leg wounds Skin: No rashes, petechiae, lesions. Normal color per patient. Neuro: Normal Gait, Grossly intact. Psych: Appropriate for situation. Updated Medication List Medication Instructions Recorded Confirmed Type multivitamin with minerals 1 tab PO DAILY 09/21/22 08/29/25 History (Multiple Vitamin-Minerals tablet) lisinopril 20 mg tablet 20 mg PO DAILY 10/10/23 08/29/25 History sertraline 100 mg tablet 100 mg PO QAM 10/10/23 08/29/25 History albuterol sulfate 90 mcg/actuation 90 mcg inhalation Q4H PRN Wheezing 06/06/24 08/29/25 History aerosol inhaler fluticasone furoate 100 100 mcg inhalation DAILY 08/05/24 08/29/25 History mcg/actuation blister powder for inhalation (Arnuity Ellipta) insulin aspart U-100 100 unit/mL 0 unit subcut TIDWMEAL 12/15/24 08/29/25 History (3 mL) subcutaneous pen (Novolog FlexPen U-100 Insulin aspart) nitroglycerin 0.4 mg sublingual 0.4 mg sublingual DIRECTED PRN 02/28/25 08/29/25 History tablet Chest Pain tamsulosin 0.4 mg capsule 0 mg PO QAM 02/28/25 08/29/25 History bupropion HCl 300 mg 24 hr tablet, 0 mg PO DAILY 03/02/25 08/29/25 History extended release L.acidop,casei,lactis,rham-B.lact,guanakito 1 cap PO DAILY #30 caps 03/09/25 08/29/25 Rx 625 mg (10 billion cell) capsule (Advanced Probiotic) spironolactone 25 mg tablet 0 mg PO DAILY 04/13/25 08/29/25 History apixaban 5 mg tablet (Eliquis) 5 mg PO BID #74 tabs 04/21/25 08/29/25 Rx aspirin 81 mg chewable tablet 81 mg PO DAILY 06/02/25 08/29/25 History cyanocobalamin (vitamin B-12) 1,000 mcg PO DAILY 06/27/25 08/29/25 History 1,000 mcg tablet,extended release (Vitamin B-12 ER) furosemide 20 mg tablet (Lasix) 40 mg (2 x 20 mg) PO QAM #60 tabs 07/11/25 08/29/25 Rx insulin glargine U-300 conc 300 100 unit (0.3333 mL) subcut BID #6 07/11/25 08/29/25 Rx unit/mL (3 mL) subcutaneous pen mL (Toujeo Max U-300 SoloStar) lidocaine 5 % topical patch 1 patch transdermal QAM #10 ea 07/25/25 08/29/25 Rx empagliflozin 25 mg tablet 0 mg PO QAM 08/29/25 08/29/25 History (Jardiance) metformin 750 mg tablet,extended 0 mg PO DAILY 08/29/25 08/29/25 History release 24 hr metoprolol succinate 50 mg 0 mg PO BID 08/29/25 08/29/25 History tablet,extended release 24 hr ondansetron 4 mg disintegrating 4 mg PO Q6 PRN nausea and vomiting 08/31/25 Rx tablet 14 days #30 tabs Hospital Stay Data Consultations 08/29/25 12:24 ED Decision to Admit Stat 08/30/25 11:18 Consult Behavioral Health Liaison Routine Diagnostic Imagining Performed 08/31/25 10:02 CT abd pelvis wo con Urgent Pending Results Patient Have Any Pending Studies at Discharge: No Discharge Instructions Given to Patient (Per Discharging Provider) Diagnosis: hyperglycemia, chronic venous ulcers Incidental Findings: lung nodules Follow Ups: PCP, home health 1. Please follow up with PCP and home health. 2. Please do not stop taking your diabetes medications. 3. Please take medications as prescribed. 4. Please stay hydrated. 5. Please continue wound care on your legs. 6. Please abstain from drug (meth) use in future, which is making your overall health and diabetes worse. Total Time Total Time Spent Total Time Spent (In Minutes): I spent a total of 35 minutes in direct patient care, including [id number] time with the patient and/or family, reviewing medical records, ordering and reviewing diagnostic tests, and coordinating care with other healthcare providers. This time includes: history taking, physical examination, medical decision making, counseling, ECG interpretation, imaging interpretation, lab interpretation, orders, and education, excluding time spent in the performance of separately billed services.
== END 2025-08-31 14:30 | disposition home health service (06) | DRG 638 ==
LOC: ED 10:18 → SUATTDRO 12:41 → EDINP 12:41 → 3W 21:12

== ENCOUNTER 2025-09-16 08:17 | Inpatient (IN) ==
[2025-09-16 08:46] LABS: Base Excess VBG 0.2 mEq/L; HCO3 VBG 26 mmol/L; Oxygen Saturation VBG 82.7 %; PCO2 VBG 45 mmHg (38-50); PO2 VBG 49 mmHg; pH VBG 7.37 (7.36-7.41)
[2025-09-16 08:50] LABS: Hematocrit (blood only) 48.5 % (42.0-52.0); Hemoglobin 16.5 g/dL (14.0-18.0); Immature Granulocytes # (auto) 0.09 K/uL (0.01-0.20); Immature Granulocytes % (auto) 1.1 %; Mean Corpuscular Hemoglobin 29.6 pg (25.0-34.0); Mean Corpuscular Volume 87.1 fL (80.0-100.0); Platelet Count 244 K/uL (130-400); RDW Standard Deviation 43.0 fL (36.4-46.3); Red Blood Count 5.57 M/uL (4.70-6.10); White Blood Count 8.50 K/ul (4.8-10.8)
--- NOTE | 2025-09-16 08:55 | XRay Report ---
XR chest 1V portable HISTORY: 65 years-old Male cp acute chest pain COMPARISON: 08/29/2025 TECHNIQUE: AP view of the chest FINDINGS: Mild cardiomegaly is unchanged. No pneumothorax. Probable trace pleural effusions with mild bibasilar atelectasis. No pneumothorax. Bones appear grossly intact. IMPRESSION: 1. Cardiomegaly without overt pulmonary edema. 2. Probable trace pleural effusions with mild bibasilar atelectasis. ACT 112: Negative or not required by law. The above report was generated using voice recognition software. It may contain grammatical, syntax o r spelling errors. Electronically signed by: Jaun Gonzalez M.D. 09/16/2025 8:53 AM
[2025-09-16 09:07] LABS: Acetaminophen < 3 ug/ml (10-30); Salicylate < 3.0 mg/dl (3.0-30)
[2025-09-16 09:10] LABS: Alanine Aminotransferase 21 U/L (7-52); Albumin Globulin Ratio 1.3 (0.9-2); Albumin Level 3.6 gm/dl (3.4-5.0); Alkaline Phosphatase 81 U/L (34-104); Anion Gap 7 (3-11); Bilirubin,Total 0.4 mg/dl (0.2-1.0); Blood Urea Nitrogen 20 mg/dl (6-23); Calcium 8.5 mg/dl (8.6-10.3); Carbon Dioxide 26 mmol/L (21-32); Chloride 103 mmol/L (98-107); Globulin 2.8 gm/dl (2.5-4.0); Glucose 436 mg/dl (70-99(Fasting)); Potassium 4.4 mmol/L (3.5-5.1); Sodium 136 mmol/L (136-145); Total Protein 6.4 gm/dl (6.0-8.3)
[2025-09-16 09:25] LABS: Thyroid Stimulating Hormone 6.808 uIu/ml (0.300-4.500)
[2025-09-16 09:34] LABS: Appearance Urine Clear (Clear); Glucose Urine UA 3+ (Negative)
[2025-09-16 10:04] LABS: T4 Free Thyroxine 0.56 ng/dl (0.61-1.60)
[2025-09-16 10:12] LABS: Amphetamines+Metham, Urine Pos (Neg); MDMA (Ecstacy), Urine Neg (Neg); Marijuana, Urine Neg (Neg)
--- NOTE | 2025-09-16 11:00 | CT Scan Report ---
CT head/brain wo con CLINICAL HISTORY: 65 years-old Male with weakness. Acute weakness TECHNIQUE: Multiple axial CT images of the head were obtained without contrast. A dose lowering tech nique was utilized adhering to the principles of ALARA. CT DOSE: 688.24 mGy.cm COMPARISON: 08/27/2025 FINDINGS: No acute intracranial hemorrhage, midline shift, intracranial mass, hydrocephalus, territorial ischem ia or abnormal extra-axial collection. Involutional changes with chronic microvascular ischemic disea se and mild ex vacuo ventriculomegaly. Left-sided craniotomy changes redemonstrated. No acute calvarial fracture. Mastoid air cells are lolly ar. Minimal mucosal thickening of the paranasal sinuses. Unremarkable soft tissues and orbits. IMPRESSION: No acute intracranial abnormality. ACT 112: Negative or not required by law. The above report was generated using voice recognition software. It may contain grammatical, syntax o r spelling errors. Electronically signed by: Juan Gonzalez M.D. 09/16/2025 10:59 AM
[2025-09-16] MEDS: FUROSEMIDE 40 MG/4 ML VIAL IV ONE (11:20)
[2025-09-16] MEDS: NovoLIN-R INSULIN PER UNIT CHARGE IV STA (11:23)
--- NOTE | 2025-09-16 11:35 | History & Physical Report ---
Date of Service September 16, 2025 Assessment & Plan (1) Congestive heart failure: Plan Mr. Botello is a 65 year old male with PMH significant for insulin-requiring diabetes, venous ulcers of bilateral LE, chronic HFpEF, non-obstructive CAD, PAF on chronic AC with Eliquis, HTN, hyperlipidemia, HCV s/p interferon Rx, BPH, depression/anxiety, and methamphetamine use admitted for SOB with concerns of acute on chronic hfpef exacerbation. #Acute on chronic HFpEF -TTE in December 2024 revealed EF 60-65%, mild aortic valve sclerosis, grade I diastolic dysfunction congestion noted on CXR, pitting edema BLE weight on discharge 08/31 115.9 now up to 123.8 this admission Continue IV lasix BID continue spironolactone and lisinopril continue Jardiance Strict I/Os, daily weights FR 1.8L #Acute hyperglycemia #Uncontrolled insulin-requiring type 2 DM -Glucose 436 on admission continue jardiance resumed similar regimen compared to prior admission glycemic pharmacy poor compliance--patient states he usually "does try" but forgets at thimes #Venous ulcers of both lower extremities -[facility] -[facility] consult -Continue coban wraps MWF and PRN #Paroxysmal atrial fibrillation Continue Eliquis and metoprolol #Non-obstructive CAD Continue asa 81mg #Hypertension Continue lisinopril #BPH Continue tamsulosin #Anxiety #Depression -Continue bupropion and sertraline #Methamphetamine misuse -reports last use within the week declines resources at this time but understands this will severely hinder his ability to obtain resources given his complex medical conditions which will progress, patient verbalized understanding DVT ppx eliquis admit med/tele full code Admission and Anticipated Discharge Date Admission Date: Time spent evaluating patient, direct bedside care, chart review, placing orders, interpretation of diagnostic studies, discussion with consultants, patient, and family members, as well as other required patient management activities is 75minutes. History of Present Illness Chief Complaint: SOB Primary Care Provider: Willam Fofana DO Mr. Botello is a 65 year old male with PMH significant for insulin-requiring diabetes, venous ulcers of bilateral LE, chronic HFpEF, non-obstructive CAD, PAF on chronic AC with Eliquis, HTN, hyperlipidemia, HCV s/p interferon Rx, BPH, depression/anxiety, and methamphetamine use admitted for SOB with concerns of acute on chronic hfpef exacerbation presented to [facility] ED due to shortness of breath. Patient states that he thinks he took his medications within the last 48 hours, but is unsure. He states he feels short of breath and uncomfortable, but much better since returning to the hospital and receiving lasix. He states that he last used meth within the week--but doesn't remember when. He states he has pill packs and tries to take his pills, but sometimes forgets and doesnt think its because of the meth. He denies fevers chills chest pain or other acute concerns. He reports feeling tearful as its hard to get help and he just can't always "do the things [he] needs to do." He has previously had home health, but they stopped given his drug use. He isnt sure he wants to quit--he states "its the only thing I do now anyway"--it was explained that despite being a singular substance of use, it is a very dangerous substance and will only worsen all of his medical conditions. Patient became tearful and overwhelmed. He denies smoking tobacco, he reports some occasional etoh, and weekly meth use. In the ED, vitals were notable for BP of 150-180s, HR of 60-90s and O2 sat of low-mid 90s on RA Imaging revealed some vascular congestion and effusions suggestive of overload; however, all very similar to prior imaging reports EKG irregular rhythm ED interventions: IV lasix 40, insulin 5 U Consultants: Patient to be admitted to med/tele for further evaluation and management of acute on chronic HFpEF Allergies Allergy/AdvReac Type Severity Reaction Status Date / Time shellfish derived Allergy Severe Swelling Verified 09/12/25 13:05 amoxicillin Allergy Intermediate HIVES Verified 09/12/25 13:05 clavulanic acid Allergy Intermediate HIVES Verified 09/12/25 13:05 permethrin Allergy Intermediate swelling Verified 09/12/25 13:05 shrimp Allergy Intermediate SWELLS Verified 09/12/25 13:05 sulfamethoxazole Allergy Unknown CAN'T Verified 09/12/25 13:05 [From Bactrim] REMEMBER trimethoprim [From Bactrim] Allergy Unknown CAN'T Verified 09/12/25 13:05 REMEMBER insulin glargine AdvReac Severe CHF PER Verified 09/12/25 13:05 [From Lantus U-100 Insulin] [facility] Home Medications Medication Instructions Recorded Confirmed Type multivitamin with minerals 1 tab PO DAILY 09/21/22 09/16/25 History (Multiple Vitamin-Minerals tablet) lisinopril 20 mg tablet 20 mg PO DAILY 10/10/23 09/16/25 History sertraline 100 mg tablet 100 mg PO QAM 10/10/23 09/16/25 History albuterol sulfate 90 mcg/actuation 90 mcg inhalation Q4H PRN Wheezing 06/06/24 09/16/25 History aerosol inhaler fluticasone furoate 100 100 mcg inhalation DAILY 08/05/24 09/16/25 History mcg/actuation blister powder for inhalation (Arnuity Ellipta) insulin aspart U-100 100 unit/mL 20 - 60 unit subcut TIDWMEAL 12/15/24 09/16/25 History (3 mL) subcutaneous pen (Novolog FlexPen U-100 Insulin aspart) nitroglycerin 0.4 mg sublingual 0.4 mg sublingual DIRECTED PRN 02/28/25 09/16/25 History tablet Chest Pain tamsulosin 0.4 mg capsule 0.4 mg PO QAM 02/28/25 09/16/25 History bupropion HCl 300 mg 24 hr tablet, 0 mg PO DAILY 03/02/25 09/16/25 History extended release L.acidop,casei,lactis,rham-B.lact,guanakito 1 cap PO DAILY #30 caps 03/09/25 09/16/25 Rx 625 mg (10 billion cell) capsule (Advanced Probiotic) spironolactone 25 mg tablet 25 mg PO DAILY 04/13/25 09/16/25 History apixaban 5 mg tablet (Eliquis) 5 mg PO BID #74 tabs 04/21/25 09/16/25 Rx aspirin 81 mg chewable tablet 81 mg PO DAILY 06/02/25 09/16/25 History cyanocobalamin (vitamin B-12) 1,000 mcg PO DAILY 06/27/25 09/16/25 History 1,000 mcg tablet,extended release (Vitamin B-12 ER) furosemide 20 mg tablet (Lasix) 40 mg (2 x 20 mg) PO QAM #60 tabs 07/11/25 09/16/25 Rx insulin glargine U-300 conc 300 100 unit (0.3333 mL) subcut BID #6 07/11/25 09/16/25 Rx unit/mL (3 mL) subcutaneous pen mL (TouTutorialTabo Max U-300 SoloStar) lidocaine 5 % topical patch 1 patch transdermal QAM #10 ea 07/25/25 09/16/25 Rx empagliflozin 25 mg tablet 25 mg PO QAM 08/29/25 09/16/25 History (Jardiance) metformin 750 mg tablet,extended 750 mg PO DAILY 08/29/25 09/16/25 History release 24 hr metoprolol succinate 50 mg 50 mg PO BID 08/29/25 09/16/25 History tablet,extended release 24 hr Past Med/Surg History Problem List (Updated 09/16/25 @ 15:55 by Galileo Alcala MD) Congestive heart failure (Acute) Nausea & vomiting Nonadherence to medication (Acute) Acute hyperglycemia (Acute) Loss of protective sensation of skin of deformed foot 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 back pain and leg pain Adjustment disorder with depressed mood Stroke-like symptom (Acute) Acute hyperglycemia (Acute) Acute metabolic encephalopathy Open wound of both legs with complication Wound of left lower extremity Acute hypoxemic respiratory failure Hyperglycemia due to diabetes mellitus (Acute) Diabetic foot ulcer (Acute) Diabetes mellitus due to underlying condition, uncontrolled, with hyperglycemia, with long-term current use of insulin Major depressive disorder Chronic venous insufficiency (Acute) Paroxysmal atrial tachycardia Paroxysmal atrial fibrillation Methamphetamine abuse PAC (premature atrial contraction) Diabetic peripheral neuropathy (Acute) Diabetic neuropathic arthritis Unable to care for self (Acute) Ambulatory dysfunction (Acute) BPH (benign prostatic hyperplasia) Anxiety and depression Morbid obesity with BMI of 40.0-44.9, adult ALEJANDRA (obstructive sleep apnea) Hyperglycemia (Acute) Nonischemic cardiomyopathy (Chronic) "prior EF 30% per Epic records. echo 02/2015- EF 40-45%" DM type 2 (diabetes mellitus, type 2) (Chronic) Hepatitis C (Chronic) Hypertension (Chronic) Hyperglycemia due to type 2 diabetes mellitus (Acute) Polyneuropathy Peripheral vascular disease Depression Encephalopathy Varicose veins of bilateral lower extremities with other complications Morbid obesity Medical History Coronary artery disease Chronic heart failure with preserved ejection fraction (HFpEF) Venous stasis ulcer of right lower leg with edema of right lower leg Hyperglycemia Unable to care for self Noncompliance with medications Noncompliance w/medication treatment due to intermit use of medication H/O drug abuse Colon polyp "TVA polyp on colonoscopy 09/2014" H/O toxoplasmosis H/O TB (tuberculosis) Closed head injury Peripheral neuropathy Acute dehydration Dysequilibrium Hepatitis C Diabetes mellitus, type 2 Depression Anxiety Hypertension Surgical History S/P cardiac cath "for abnormal stress test. cath 03/18/2015-essentially normal coronaries with no obstructive disease " H/O colonoscopy "11/2015- diverticulosis" History of umbilical hernia repair x2 History of tooth extraction History of wisdom tooth extraction Family History Mother Family history of diabetes mellitus Father Family history of diabetes mellitus Other No family history of adverse response to anesthesia Social History Smoking Status: Never smoker Tobacco Type: Cigarettes and Smokeless Tobacco (Dip or Chew) Second Hand Exposure: No; Do You Dip or Chew Tobacco: No; Hx Alcohol Use: Yes Alcohol type: wine and hard liquor Alcohol Intake Frequency: Monthly or Less Hx Substance Use: Yes Non-Prescribed Medications: Methamphetamines Last Used Substance: Days (ago) Last Used Substance Other:: 2 weeks ago Substance Use Type Other:: MDMA, speed Preferred Language: Slovak Communication Ability: Effective Visual Impairment: Severely Limited Hearing Ability: Normal Conditioning Room Worker Required: No Beliefs That Will Affect Care: None marital status: Single Current Living Situation: Alone Current Living Situation Comment: lives alone Feels Safe at Home: No Is there a partner from a previous relationship who is making you feel unsafe now?: No Diet: regular caffeine: Yes Gender Identity: Male Assistive Devices: Cane, Glasses and Walker Review of Systems Review of Systems: Constitutional: (-) fever/chills, (-) recent loss of weight, (-) appetite changes, (-) night sweats. Head: (-) headache, (-) dizziness. Eye: (-) blurring of vision, (-) double vision, (-) redness. Ear: (-) hearing loss, (-) discharge, (-) vertigo Nose: (-) discharge, (-) bleeding, (-) congestion, (-) post nasal drip. Throat: (-) sore throat, (-) hoarseness of voice, (-) odynophagia. Cardiovascular: (-) chest pain, (-) palpitations, (-) syncope, (-) orthopnea, (- ) PND, (-) leg swelling. Respiratory: (+) shortness of breath, (-) cough, (-) wheezing, (-) hemoptysis. Neuro: (-) weakness in extremities, (-) numbness, (-) tingling, (-) tremor. Gastrointestinal: (-) belly pain, (-) belly distension, (-) nausea, (-) vomiting, (-) diarrhea, (-) constipation, (-) na, (-) hematemesis, (-) hematochezia, (-) bowel incontinence Genitourinary: (-) hematuria, (-) dysuria, (-) polyuria, (-) hesitancy, (-) frequency, (-) urinary incontinence. Musculoskeletal: (-) myalgia, (-) arthralgia. Skin: (-) rashes. Endocrine: (-) heat/cold intolerance. Psychiatry: (-) depression, (-) hallucination. Physical Exam Physical Exam: GENERAL APPEARANCE: AxOx4, disheveled no acute distress. HEENT: NC, AT. MMM. EOMI, clear conjunctiva, oropharynx clear. NECK: Supple without lymphadenopathy. No stiffness or restricted ROM. HEART: Normal rate and regular rhythm, normal S1/S1, no m/r/g LUNGS: CTAB, moving air well. No crackles or wheezes are heard. ABDOMEN: Soft, protuberant, umbilical hernia noted, nontender, reducible BACK: No CVAT, no obvious deformity. EXTREMITIES: Without cyanosis, clubbing. 2+ pitting edema and dusky erythema NEUROLOGICAL: Grossly nonfocal. Alert and oriented, moving all 4 extremities. CN not formally tested but appear grossly intact. Observed to ambulate with normal gait. Skin: venous stasis changes ble Results & Data Results & Data Vital Signs (Past 12 Hours) Vital Signs Temp Pulse Pulse Resp BP BP Pulse Ox 09/16/25 11:14 98 H 09/16/25 10:37 96 H 15 151/100 H 100 09/16/25 09:52 97 H 18 185/112 H 96 09/16/25 09:51 96 09/16/25 08:17 09/16/25 08:17 36.6 C 98 H 16 175/104 H 95 O2 Del Method 09/16/25 11:14 09/16/25 10:37 Room Air 09/16/25 09:52 Room Air 09/16/25 09:51 Room Air 09/16/25 08:17 Room Air 09/16/25 08:17 Laboratory Results Short CBC 09/16/25 Range/Units 08:38 WBC 8.50 (4.8-10.8) K/ul Hgb 16.5 (14.0-18.0) g/dL Hct 48.5 (42.0-52.0) % Plt Count 244 (130-400) K/uL BMP 09/16/25 08:38 Sodium 136 Potassium 4.4 Chloride 103 Carbon Dioxide 26 BUN 20 Creatinine 0.63 Glucose 436 H* Calcium 8.5 L Liver Function 09/16/25 Range/Units 08:38 Total Bilirubin 0.4 (0.2-1.0) mg/dl AST 19 (13-39) U/L ALT 21 (7-52) U/L Alkaline Phosphatase 81 (34-104) U/L Albumin 3.6 (3.4-5.0) gm/dl Urine 09/16/25 Range/Units 08:43 Urine Color Yellow Urine Appearance Clear (Clear) Urine pH 5.5 (4.5-7.5) Ur Specific [place] 1.027 (1.000-1.030) Urine Protein Negative (Negative) Urine Glucose (UA) 3+ H (Negative) Medications Administered Home Medications Medication Instructions Recorded Confirmed Last Taken multivitamin with minerals 1 tab PO DAILY 09/21/22 09/16/25 06/01/25 (Multiple Vitamin-Minerals tablet) lisinopril 20 mg tablet 20 mg PO DAILY 10/10/23 09/16/25 06/01/25 sertraline 100 mg tablet 100 mg PO QAM 10/10/23 09/16/25 06/01/25 albuterol sulfate 90 mcg/actuation 90 mcg inhalation Q4H PRN Wheezing 06/06/24 09/16/25 06/01/25 aerosol inhaler fluticasone furoate 100 100 mcg inhalation DAILY 10/09/16/25 06/01/25 mcg/actuation blister powder for inhalation (Arnuity Ellipta) insulin aspart U-100 100 unit/mL 20 - 60 unit subcut TIDWMEAL 12/15/24 09/16/25 06/01/25 (3 mL) subcutaneous pen (Novolog FlexPen U-100 Insulin aspart) nitroglycerin 0.4 mg sublingual 0.4 mg sublingual DIRECTED PRN 02/28/25 09/16/25 Unknown tablet Chest Pain tamsulosin 0.4 mg capsule 0.4 mg PO QAM 02/28/25 09/16/25 06/01/25 bupropion HCl 300 mg 24 hr tablet, 0 mg PO DAILY 03/02/25 09/16/25 06/01/25 extended release L.acidop,casei,lactis,rham-B.lact,guanakito 1 cap PO DAILY #30 caps 03/09/25 09/16/25 06/01/25 625 mg (10 billion cell) capsule (Advanced Probiotic) spironolactone 25 mg tablet 25 mg PO DAILY 04/13/25 09/16/25 06/01/25 apixaban 5 mg tablet (Eliquis) 5 mg PO BID #74 tabs 04/21/25 09/16/25 06/01/25 aspirin 81 mg chewable tablet 81 mg PO DAILY 06/02/25 09/16/25 06/01/25 cyanocobalamin (vitamin B-12) 1,000 mcg PO DAILY 06/27/25 09/16/25 Unknown 1,000 mcg tablet,extended release (Vitamin B-12 ER) furosemide 20 mg tablet (Lasix) 40 mg (2 x 20 mg) PO QAM #60 tabs 07/11/25 09/16/25 Unknown insulin glargine U-300 conc 300 100 unit (0.3333 mL) subcut BID #6 07/11/25 09/16/25 Unknown unit/mL (3 mL) subcutaneous pen mL (Toujeo Max U-300 SoloStar) lidocaine 5 % topical patch 1 patch transdermal QAM #10 ea 07/25/25 09/16/25 Unknown empagliflozin 25 mg tablet 25 mg PO QAM 08/29/25 09/16/25 Unknown (Jardiance) metformin 750 mg tablet,extended 750 mg PO DAILY 08/29/25 09/16/25 Unknown release 24 hr metoprolol succinate 50 mg 50 mg PO BID 08/29/25 09/16/25 Unknown tablet,extended release 24 hr Active Medications Generic Name Dose Route Start Last Admin Trade Name Calixtoq PRN Reason Stop Dose Admin Acetaminophen 650 mg 09/16/25 11:46 09/16/25 17:28 Acetaminophen 325 Mg Tab PO 10/16/25 11:45 650 mg Q4H PRN Administration Pain or Fever Apixaban 5 mg 09/16/25 11:45 09/16/25 13:43 Apixaban 5 Mg Tablet PO 10/16/25 11:44 5 mg BID MULU Administration Aspirin 81 mg 09/16/25 11:45 09/16/25 13:43 Aspirin 81 Mg Chew PO 10/16/25 11:44 81 mg DAILY MULU Administration Empagliflozin 25 mg 09/16/25 11:45 09/16/25 13:42 Empagliflozin 25 Mg Tab PO 10/16/25 11:44 25 mg QAM MULU Administration Fluticasone Furoate 1 puffs 09/16/25 11:45 09/16/25 13:41 Fluticasone Furoate 100mcg 14 Puffs/Inhaler INH 10/16/25 11:44 1 puffs DAILY MULU Administration Furosemide 40 mg 09/16/25 17:00 09/16/25 17:29 Furosemide 40 Mg/4 Ml Vial IV 10/16/25 16:59 40 mg BIDM MULU Administration Insulin Aspart 0 units 09/16/25 13:15 09/16/25 17:55 Insulin Aspart Per Unit Charge SC 10/16/25 13:14 12 units ACHS MULU Administration Lidocaine 1 patch 09/16/25 11:45 09/16/25 13:43 Lidocaine 5% 1 Patch TD 10/16/25 11:44 1 patch QAM MULU Administration Metoprolol Succinate 50 mg 09/16/25 11:45 09/16/25 13:43 Metoprolol Succ 50mg Ext Rel Tab PO 10/16/25 11:44 50 mg BID MULU Administration Sertraline HCl 100 mg 09/16/25 11:45 09/16/25 13:43 Sertraline Hcl 100 Mg Tablet PO 10/16/25 11:44 100 mg QAM MULU Administration Spironolactone 25 mg 09/16/25 11:45 09/16/25 13:43 Spironolactone 25 Mg Tab PO 10/16/25 11:44 25 mg DAILY MULU Administration
[2025-09-16] MEDS ORDERED: NITROGLYCERIN SL 0.4 MG/TAB TAB SL PRN (11:42)
[2025-09-16] MEDS ORDERED: POLYETHYLENE (MIRALAX) 17 GM PACK PO PRN (11:46)
[2025-09-16] MEDS ORDERED: GLUCOSE 40% GEL 15 GM TUBE PO PRN ×2 (12:00→12:26)
[2025-09-16] MEDS ORDERED: GLUCAGON FOR INJ 1 MG VIAL SQ PRN ×2 (12:00→12:26)
[2025-09-16] MEDS ORDERED: GLUCOSE 10 TAB/TUBE PO PRN ×2 (12:00→12:26)
[2025-09-16] MEDS ORDERED: DEXTROSE 50% 50 ML SYRINGE IV PRN ×2 (12:00→12:26)
[2025-09-16] MEDS ORDERED: CARBOHYDRATES FOR HYPOGLYCEMIA PO PRN ×2 (12:00→12:26)
[2025-09-16] MEDS ORDERED: PHARMACY GLYCEMIC MGMT CONSULT PRN (12:26)
--- NOTE | 2025-09-16 13:31 | Pharmacy Report ---
Pharmacy Glycemic Short Note 2 - Date of Service September 16, 2025 - Glycemic Short BSG Results (Last 24 hours): 09/16/25 09/16/25 09/16/25 08:38 08:49 11:19 Glucose 436 H* POC Glucose 370 H* 336 H* 09/16/25 12:30 Glucose POC Glucose 338 H* OUTPATIENT ANTIDIABETIC REGIMEN: * Jardiance 25mg PO daily * Metformin 750mg PO daily * Toujeo (insulin glargine U-300) 100 units SC BID * A1c 10.9% 08/30/25 ASSESSMENT: * 65 yo M, PMH T2DM, methamphetamine use, presents to the ED with SOB and hyperglycemia. Non-compliance at home. * Insulin glargine U-100 allergy, NPH used for basal while inpatient. * Patient known to pharmacy glycemic service, will begin with basal bolus SC insulin at this time. PLAN FOR INPATIENT GLYCEMIC CONTROL: * Hold outpatient diabetes medications * Basal insulin * NPH 30 units SQ x 1 dose now, further dosing tonight/tomorrow morning * Bolus insulin * NovoLog per scale ACHS or Q6hrs while NPO * Goal Range: Low 110 mg/dL - High 140 mg/dL * Correction Factor: 15 mg/dL/unit * Nutritional / Prandial insulin per carb ratio of 1 unit per 4 grams CHO consumed
[2025-09-16] MEDS: FLUTICASONE FUROATE 100MCG 14 PUFFS/INHALER INH SCH (13:41)
[2025-09-16] MEDS: EMPAGLIFLOZIN 25 MG TAB PO SCH (13:42)
[2025-09-16] MEDS: METOPROLOL SUCC 50MG EXT REL TAB PO SCH (13:43)
[2025-09-16] MEDS: SPIRONOLACTONE 25 MG TAB PO SCH (13:43)
[2025-09-16] MEDS: ASPIRIN 81 MG CHEW PO SCH (13:43)
[2025-09-16] MEDS: SERTRALINE HCL 100 MG TABLET PO SCH (13:43)
[2025-09-16] MEDS: APIXABAN 5 MG TABLET PO SCH (13:43)
[2025-09-16] MEDS: LIDOCAINE 5% 1 PATCH TD SCH (13:43)
[2025-09-16] MEDS: INSULIN HUMAN NPH SC ONE (13:44)
[2025-09-16] MEDS: INSULIN ASPART PER UNIT CHARGE SC SCH (14:47)
[2025-09-16] MEDS ORDERED: ALBUTEROL HFA 8 GM INHALER INH PRN (15:10)
--- NOTE | 2025-09-16 15:41 | Emergency Department Note ---
History of Present Illness General Chief complaint: Respiratory Problems Stated complaint: VERY SOB/TROUBLE WALKING Time Seen by Provider: 09/16/25 08:28 History of Present Illness Provider complaint: Difficulty breathing Maximum Pain Intensity: 5 65-year-old male with history of CHF, paroxysmal atrial fibrillation on Eliquis, drug abuse, diabetes, and chronic leg wounds presents emergency department for difficulty breathing. Patient reports that he has been having increased difficulty breathing for the last week. He reports that he is tired of having such difficulty breathing swelling in his legs and pain in his legs. Patient reports no falls or traumas. Patient reports that he is ready to because he cannot take it anymore. Home Medications Medication Instructions Recorded Confirmed Type multivitamin with minerals 1 tab PO DAILY 09/21/22 09/16/25 History (Multiple Vitamin-Minerals tablet) lisinopril 20 mg tablet 20 mg PO DAILY 10/10/23 09/16/25 History sertraline 100 mg tablet 100 mg PO QAM 10/10/23 09/16/25 History albuterol sulfate 90 mcg/actuation 90 mcg inhalation Q4H PRN Wheezing 06/06/24 09/16/25 History aerosol inhaler fluticasone furoate 100 100 mcg inhalation DAILY 08/05/24 09/16/25 History mcg/actuation blister powder for inhalation (Arnuity Ellipta) insulin aspart U-100 100 unit/mL 20 - 60 unit subcut TIDWMEAL 12/15/24 09/16/25 History (3 mL) subcutaneous pen (Novolog FlexPen U-100 Insulin aspart) nitroglycerin 0.4 mg sublingual 0.4 mg sublingual DIRECTED PRN 02/28/25 09/16/25 History tablet Chest Pain tamsulosin 0.4 mg capsule 0.4 mg PO QAM 02/28/25 09/16/25 History bupropion HCl 300 mg 24 hr tablet, 0 mg PO DAILY 03/02/25 09/16/25 History extended release L.acidop,casei,lactis,rham-B.lact,guanakito 1 cap PO DAILY #30 caps 03/09/25 09/16/25 Rx 625 mg (10 billion cell) capsule (Advanced Probiotic) spironolactone 25 mg tablet 25 mg PO DAILY 04/13/25 09/16/25 History apixaban 5 mg tablet (Eliquis) 5 mg PO BID #74 tabs 04/21/25 09/16/25 Rx aspirin 81 mg chewable tablet 81 mg PO DAILY 06/02/25 09/16/25 History cyanocobalamin (vitamin B-12) 1,000 mcg PO DAILY 06/27/25 09/16/25 History 1,000 mcg tablet,extended release (Vitamin B-12 ER) furosemide 20 mg tablet (Lasix) 40 mg (2 x 20 mg) PO QAM #60 tabs 07/11/25 09/16/25 Rx insulin glargine U-300 conc 300 100 unit (0.3333 mL) subcut BID #6 07/11/25 09/16/25 Rx unit/mL (3 mL) subcutaneous pen mL (Toujeo Max U-300 SoloStar) lidocaine 5 % topical patch 1 patch transdermal QAM #10 ea 07/25/25 09/16/25 Rx empagliflozin 25 mg tablet 25 mg PO QAM 08/29/25 09/16/25 History (Jardiance) metformin 750 mg tablet,extended 750 mg PO DAILY 08/29/25 09/16/25 History release 24 hr metoprolol succinate 50 mg 50 mg PO BID 08/29/25 09/16/25 History tablet,extended release 24 hr Allergies Allergy/AdvReac Type Severity Reaction Status Date / Time shellfish derived Allergy Severe Swelling Verified 09/12/25 13:05 amoxicillin Allergy Intermediate HIVES Verified 09/12/25 13:05 clavulanic acid Allergy Intermediate HIVES Verified 09/12/25 13:05 permethrin Allergy Intermediate swelling Verified 09/12/25 13:05 shrimp Allergy Intermediate SWELLS Verified 09/12/25 13:05 sulfamethoxazole Allergy Unknown CAN'T Verified 09/12/25 13:05 [From Bactrim] REMEMBER trimethoprim [From Bactrim] Allergy Unknown CAN'T Verified 09/12/25 13:05 REMEMBER insulin glargine AdvReac Severe CHF PER Verified 09/12/25 13:05 [From Lantus U-100 Insulin] [facility] Past Med/Surg History Problem List (Updated 09/16/25 @ 15:55 by Galileo Alcala MD) Congestive heart failure (Acute) Nausea & vomiting Nonadherence to medication (Acute) Acute hyperglycemia (Acute) Loss of protective sensation of skin of deformed foot 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 back pain and leg pain Adjustment disorder with depressed mood Stroke-like symptom (Acute) Acute hyperglycemia (Acute) Acute metabolic encephalopathy Open wound of both legs with complication Wound of left lower extremity Acute hypoxemic respiratory failure Hyperglycemia due to diabetes mellitus (Acute) Diabetic foot ulcer (Acute) Diabetes mellitus due to underlying condition, uncontrolled, with hyperglycemia, with long-term current use of insulin Major depressive disorder Chronic venous insufficiency (Acute) Paroxysmal atrial tachycardia Paroxysmal atrial fibrillation Methamphetamine abuse PAC (premature atrial contraction) Diabetic peripheral neuropathy (Acute) Diabetic neuropathic arthritis Unable to care for self (Acute) Ambulatory dysfunction (Acute) BPH (benign prostatic hyperplasia) Anxiety and depression Morbid obesity with BMI of 40.0-44.9, adult ALEJANDRA (obstructive sleep apnea) Hyperglycemia (Acute) Nonischemic cardiomyopathy (Chronic) "prior EF 30% per Epic records. echo 02/2015- EF 40-45%" DM type 2 (diabetes mellitus, type 2) (Chronic) Hepatitis C (Chronic) Hypertension (Chronic) Hyperglycemia due to type 2 diabetes mellitus (Acute) Polyneuropathy Peripheral vascular disease Depression Encephalopathy Varicose veins of bilateral lower extremities with other complications Morbid obesity Medical History Coronary artery disease Chronic heart failure with preserved ejection fraction (HFpEF) Venous stasis ulcer of right lower leg with edema of right lower leg Hyperglycemia Unable to care for self Noncompliance with medications Noncompliance w/medication treatment due to intermit use of medication H/O drug abuse Colon polyp "TVA polyp on colonoscopy 09/2014" H/O toxoplasmosis H/O TB (tuberculosis) Closed head injury Peripheral neuropathy Acute dehydration Dysequilibrium Hepatitis C Diabetes mellitus, type 2 Depression Anxiety Hypertension Surgical History S/P cardiac cath "for abnormal stress test. cath 03/18/2015-essentially normal coronaries with no obstructive disease " H/O colonoscopy "11/2015- diverticulosis" History of umbilical hernia repair x2 History of tooth extraction History of wisdom tooth extraction Family History Mother Family history of diabetes mellitus Father Family history of diabetes mellitus Other No family history of adverse response to anesthesia Social History Smoking Status: Never smoker Tobacco Type: Cigarettes and Smokeless Tobacco (Dip or Chew) Second Hand Exposure: No; Do You Dip or Chew Tobacco: No; Hx Alcohol Use: Yes Alcohol type: wine and hard liquor Alcohol Intake Frequency: Monthly or Less Hx Substance Use: Yes Non-Prescribed Medications: Methamphetamines Last Used Substance: Days (ago) Last Used Substance Other:: 2 weeks ago Substance Use Type Other:: MDMA, speed Preferred Language: Danish Communication Ability: Effective Visual Impairment: Severely Limited Hearing Ability: Normal Profile Saw Setup Operator Required: No Beliefs That Will Affect Care: None marital status: Single Current Living Situation: Alone Current Living Situation Comment: lives alone Feels Safe at Home: No Is there a partner from a previous relationship who is making you feel unsafe now?: No Diet: regular caffeine: Yes Gender Identity: Male Assistive Devices: Cane, Glasses and Walker Physical Exam Vital Signs Vital Signs - 24 hr 09/16/25 08:17 09/16/25 08:17 09/16/25 09:22 Temperature 36.6 C Temperature Source Temporal Artery Scan Pulse Rate 98 H Pulse Rate [Apical] Respiratory Rate 16 Respiratory Effort / Characteristics Non-Labored Spontaneous Respiratory Depth Normal Respiratory Pattern Regular Blood Pressure 175/104 H Blood Pressure [Right Arm] Blood Pressure Mean 127 Blood Pressure Mean [Right Arm] Pulse Oximetry 95 Oxygen Delivery Method Room Air Sepsis Recent Fever Within 48 Hours No Sepsis New/Unexplained Change in Mental Status N/A Sepsis Action Taken by Nursing No Action Required 09/16/25 09:51 09/16/25 09:52 09/16/25 10:37 Temperature Temperature Source Pulse Rate Pulse Rate [Apical] 97 H 96 H Respiratory Rate 18 15 Respiratory Effort / Characteristics Non-Labored Spontaneous Non-Labored Respiratory Depth Normal Normal Respiratory Pattern Regular Regular Blood Pressure Blood Pressure [Right Arm] 185/112 H 151/100 H Blood Pressure Mean Blood Pressure Mean [Right Arm] 136 117 Pulse Oximetry 96 96 100 Oxygen Delivery Method Room Air Room Air Room Air Sepsis Recent Fever Within 48 Hours Sepsis New/Unexplained Change in Mental Status Sepsis Action Taken by Nursing 09/16/25 11:14 Temperature Temperature Source Pulse Rate 98 H Pulse Rate [Apical] Respiratory Rate Respiratory Effort / Characteristics Respiratory Depth Respiratory Pattern Blood Pressure Blood Pressure [Right Arm] Blood Pressure Mean Blood Pressure Mean [Right Arm] Pulse Oximetry Oxygen Delivery Method Sepsis Recent Fever Within 48 Hours Sepsis New/Unexplained Change in Mental Status Sepsis Action Taken by Nursing Physical Exam HENT: Exam performed. - Head: Normocephalic and atraumatic. NECK: Normal range of motion. Neck supple. No JVD present. CV: Normal rate, regular rhythm, normal heart sounds and intact distal pulses. Palpable radial pulses bue. PULM/CHEST: Rales bilaterally. ABD: The abdomen is soft. There is no tenderness. MUSC: Bilateral lower extremity edema 2+. Mild erythema over the bilateral lower extremities. NEURO: Motor and sensation grossly intact. SKIN: Skin is warm and dry. He is not diaphoretic. PSYCH: normal mood and affect. Behavior is normal. Judgment and thought content normal. Course Course 827: The patient was evaluated in room B7. A complete history and physical exam was performed Cardiac monitoring: An order was placed for continuous cardiac monitoring. The monitor shows a rate of 100 with sinus rhythm interpreted by me Patient met with case management Anupam after me. While the patient states he is depressed and does not want to live he states he is not actively suicidal. 1110: Vital signs stable. Chest x-ray to me appears to show cardiomegaly with cephalization. CT of the head shows no ICH. Patient's high-sensitivity troponin negative. Glucose is 436. Patient was given 5 units of IV insulin for his hyperglycemia. Patient was also given Lasix 40 mg. Will back to reevaluate the patient the patient states he is compliant with his Eliquis but is having too much difficulty breathing. [facility]. Administered Medications Apixaban (Apixaban 5 Mg Tablet) 5 mg PO BID [facility] Stop: 10/16/25 11:44 Last Admin: 09/16/25 13:43 Dose: 5 mg Documented By: DAFNE Aspirin (Aspirin 81 Mg Chew) 81 mg PO DAILY [facility] Stop: 10/16/25 11:44 Last Admin: 09/16/25 13:43 Dose: 81 mg Documented By: DAFNE Empagliflozin (Empagliflozin 25 Mg Tab) 25 mg PO QAM [facility] Stop: 10/16/25 11:44 Last Admin: 09/16/25 13:42 Dose: 25 mg Documented By: DAFNE Fluticasone Furoate (Fluticasone Furoate 100mcg 14 Puffs/Inhaler) 1 puffs INH DAILY [facility] Stop: 10/16/25 11:44 Last Admin: 09/16/25 13:41 Dose: 1 puffs Documented By: DAFNE Insulin Aspart (Insulin Aspart Per Unit Charge) 0 units SC ACHS [facility] Stop: 10/16/25 13:14 Last Admin: 09/16/25 14:47 Dose: 24 units Documented By: DAFNE Co-signed By: marcello Lidocaine (Lidocaine 5% 1 Patch) 1 patch TD QAM [facility] Stop: 10/16/25 11:44 Last Admin: 09/16/25 13:43 Dose: 1 patch Documented By: DAFNE Metoprolol Succinate (Metoprolol Succ 50mg Ext Rel Tab) 50 mg PO BID [facility] Stop: 10/16/25 11:44 Last Admin: 09/16/25 13:43 Dose: 50 mg Documented By: DAFNE Sertraline HCl (Sertraline Hcl 100 Mg Tablet) 100 mg PO QAM [facility] Stop: 10/16/25 11:44 Last Admin: 09/16/25 13:43 Dose: 100 mg Documented By: DAFNE Spironolactone (Spironolactone 25 Mg Tab) 25 mg PO DAILY [facility] Stop: 10/16/25 11:44 Last Admin: 09/16/25 13:43 Dose: 25 mg Documented By: DAFNE Discontinued Medications Furosemide (Furosemide 40 Mg/4 Ml Vial) 40 mg IV ONE ONE Stop: 09/16/25 11:09 Last Admin: 09/16/25 11:20 Dose: 40 mg Documented By: KLAUS Insulin Human NPH (Insulin Human Nph) 30 units SC ONE ONE Stop: 09/16/25 13:31 Last Admin: 09/16/25 13:44 Dose: 30 units Documented By: DAFNE Co-signed By: KAYLEE Insulin Human Regular (Novolin-R Insulin Per Unit Charge) 5 units IV NOW STA Stop: 09/16/25 10:57 Last Admin: 09/16/25 11:23 Dose: 5 units Documented By: KLAUS Co-signed By: JAVI Medical Decision Making Laboratory Data Attestation: I reviewed the patient's lab results. 09/16/25 08:38 09/16/25 08:38 Lab Results 09/16/25 09/16/25 09/16/25 Range/Units 08:08 08:38 08:43 WBC 8.50 (4.8-10.8) K/ul RBC 5.57 (4.70-6.10) M/uL Hgb 16.5 (14.0-18.0) g/dL Hct 48.5 (42.0-52.0) % MCV 87.1 (80.0-100.0) fL MCH 29.6 (25.0-34.0) pg MCHC 34.0 (32.0-36.0) g/dL RDW Std Deviation 43.0 (36.4-46.3) fL RDW Coeff of Marc 13.5 (11.5-14.5) % Plt Count 244 (130-400) K/uL MPV 9.8 (9.4-12.4) fL Immature Gran % (Auto) 1.1 % Neut % (Auto) 54.0 % Lymph % (Auto) 32.9 % Custer % (Auto) 7.2 % Eos % (Auto) 3.5 % Baso % (Auto) 1.3 % Neut # (Auto) 4.59 (1.40-6.50) K/uL Lymph # (Auto) 2.80 (1.20-3.40) K/uL Custer # (Auto) 0.61 H (0.11-0.59) K/uL Eos # (Auto) 0.30 (0.00-0.50) K/uL Baso # (Auto) 0.11 (0.00-0.20) K/uL Immature Gran # (Auto) 0.09 (0.01-0.20) K/uL VBG pH 7.37 (7.36-7.41) VBG pCO2 45 (38-50) mmHg VBG pO2 49 mmHg VBG HCO3 26 mmol/L VBG O2 Saturation 82.7 % VBG Base Excess 0.2 mEq/L Sodium 136 (136-145) mmol/L Potassium 4.4 (3.5-5.1) mmol/L Chloride 103 (98-107) mmol/L Carbon Dioxide 26 (21-32) mmol/L Anion Gap 7 (3-11) BUN 20 (6-23) mg/dl Creatinine 0.63 (0.6-1.4) mg/dl Est Cr Clr Drug Dosing Not Reportable eGFR 106.88 BUN/Creatinine Ratio 31.7 H (10-20) Glucose 436 H* (70-99(Fasting)) mg/dl POC Glucose (70-99) mg/dl Calcium 8.5 L (8.6-10.3) mg/dl Total Bilirubin 0.4 (0.2-1.0) mg/dl AST 19 (13-39) U/L ALT 21 (7-52) U/L Alkaline Phosphatase 81 (34-104) U/L Troponin I High Sens 19.3 (0-20) pg/ml B-Natriuretic Peptide 58 (0-100) pg/ml Total Protein 6.4 (6.0-8.3) gm/dl Albumin 3.6 (3.4-5.0) gm/dl Globulin 2.8 (2.5-4.0) gm/dl Albumin/Globulin Ratio 1.3 (0.9-2) TSH 6.808 H (0.300-4.500) uIu/ml Free T4 0.56 L (0.61-1.60) ng/dl Urine Color Yellow Urine Appearance Clear (Clear) Urine pH 5.5 (4.5-7.5) Ur Specific [place] 1.027 (1.000-1.030) Urine Protein Negative (Negative) Urine Glucose (UA) 3+ H (Negative) Urine Ketones Negative (Negative) Urine Blood Negative (Negative) Urine Nitrite Negative (Negative) Urine Bilirubin Negative (Negative) Urine Urobilinogen Negative (Negative) Ur Leukocyte Esterase Negative (Negative) Urine Comment Salicylates < 3.0 L (3.0-30) mg/dl Urine Opiates Screen Neg (Neg) Ur Methadone, Qual Neg (Neg) Urine Fentanyl Screen Neg (Neg) Acetaminophen < 3 L (10-30) ug/ml Urine Barbiturates Neg (Neg) Ur Phencyclidine (PCP) Neg (Neg) U Amphetamin/Meth Scrn Pos H (Neg) MDMA (Ecstasy) Screen Neg (Neg) U Benzodiazepines Scrn Neg (Neg) Ur Cocaine Metabolite Neg (Neg) U Marijuana (THC) Screen Neg (Neg) Ethyl Alcohol mg/dL < 10.0 (<10.0) mg/dl 09/16/25 09/16/25 Range/Units 08:49 11:19 WBC (4.8-10.8) K/ul RBC (4.70-6.10) M/uL Hgb (14.0-18.0) g/dL Hct (42.0-52.0) % MCV (80.0-100.0) fL MCH (25.0-34.0) pg MCHC (32.0-36.0) g/dL RDW Std Deviation (36.4-46.3) fL RDW Coeff of Marc (11.5-14.5) % Plt Count (130-400) K/uL MPV (9.4-12.4) fL Immature Gran % (Auto) % Neut % (Auto) % Lymph % (Auto) % Custer % (Auto) % Eos % (Auto) % Baso % (Auto) % Neut # (Auto) (1.40-6.50) K/uL Lymph # (Auto) (1.20-3.40) K/uL Custer # (Auto) (0.11-0.59) K/uL Eos # (Auto) (0.00-0.50) K/uL Baso # (Auto) (0.00-0.20) K/uL Immature Gran # (Auto) (0.01-0.20) K/uL VBG pH (7.36-7.41) VBG pCO2 (38-50) mmHg VBG pO2 mmHg VBG HCO3 mmol/L VBG O2 Saturation % VBG Base Excess mEq/L Sodium (136-145) mmol/L Potassium (3.5-5.1) mmol/L Chloride (98-107) mmol/L Carbon Dioxide (21-32) mmol/L Anion Gap (3-11) BUN (6-23) mg/dl Creatinine (0.6-1.4) mg/dl Est Cr Clr Drug Dosing eGFR BUN/Creatinine Ratio (10-20) Glucose (70-99(Fasting)) mg/dl POC Glucose 370 H* 336 H* (70-99) mg/dl Calcium (8.6-10.3) mg/dl Total Bilirubin (0.2-1.0) mg/dl AST (13-39) U/L ALT (7-52) U/L Alkaline Phosphatase (34-104) U/L Troponin I High Sens (0-20) pg/ml B-Natriuretic Peptide (0-100) pg/ml Total Protein (6.0-8.3) gm/dl Albumin (3.4-5.0) gm/dl Globulin (2.5-4.0) gm/dl Albumin/Globulin Ratio (0.9-2) TSH (0.300-4.500) uIu/ml Free T4 (0.61-1.60) ng/dl Urine Color Urine Appearance (Clear) Urine pH (4.5-7.5) Ur Specific [place] (1.000-1.030) Urine Protein (Negative) Urine Glucose (UA) (Negative) Urine Ketones (Negative) Urine Blood (Negative) Urine Nitrite (Negative) Urine Bilirubin (Negative) Urine Urobilinogen (Negative) Ur Leukocyte Esterase (Negative) Urine Comment Salicylates (3.0-30) mg/dl Urine Opiates Screen (Neg) Ur Methadone, Qual (Neg) Urine Fentanyl Screen (Neg) Acetaminophen (10-30) ug/ml Urine Barbiturates (Neg) Ur Phencyclidine (PCP) (Neg) U Amphetamin/Meth Scrn (Neg) MDMA (Ecstasy) Screen (Neg) U Benzodiazepines Scrn (Neg) Ur Cocaine Metabolite (Neg) U Marijuana (THC) Screen (Neg) Ethyl Alcohol mg/dL (<10.0) mg/dl Imaging Data Radiologist's Impression: Chest X-Ray 09/16/25 08:28 XR chest 1V portable HISTORY: 65 years-old Male cp acute chest pain COMPARISON: 08/29/2025 TECHNIQUE: AP view of the chest FINDINGS: Mild cardiomegaly is unchanged. No pneumothorax. Probable trace pleural effusions with mild bibasilar atelectasis. No pneumothorax. Bones appear grossly intact. IMPRESSION: 1. Cardiomegaly without overt pulmonary edema. 2. Probable trace pleural effusions with mild bibasilar atelectasis. ACT 112: Negative or not required by law. The above report was generated using voice recognition software. It may contain grammatical, syntax or spelling errors. Electronically signed by: Juan Gonzalez M.D. 09/16/2025 8:[address] 09/16/25 09:36 CT head/brain wo con CLINICAL HISTORY: 65 years-old Male with weakness. Acute weakness TECHNIQUE: Multiple axial CT images of the head were obtained without contrast. A dose lowering technique was utilized adhering to the principles of ALARA. CT DOSE: 688.24 mGy.cm COMPARISON: 08/27/2025 FINDINGS: No acute intracranial hemorrhage, midline shift, intracranial mass, hydrocephalus, territorial ischemia or abnormal extra-axial collection. Involutional changes with chronic microvascular ischemic disease and mild ex vacuo ventriculomegaly. Left-sided craniotomy changes redemonstrated. No acute calvarial fracture. Mastoid air cells are clear. Minimal mucosal thickening of the paranasal sinuses. Unremarkable soft tissues and orbits. IMPRESSION: No acute intracranial abnormality. ACT 112: Negative or not required by law. The above report was generated using voice recognition software. It may contain grammatical, syntax or spelling errors. Electronically signed by: Juan Gonzalez M.D. 09/16/2025 10:59 AM ECG Data Attestation: I personally reviewed and interpreted this ECG as follows: Rate (beats per minute): 100 Rhythm: + normal sinus ECG Intervals/blocks: + First degree AV block, + Normal QRS and + Normal QT-c ECG ST segments: + Normal ST segments ECG Findings: + PVCs MDM Narrative 0828: The patient was evaluated in room B7. A complete history and physical exam was performed Cardiac monitoring: An order was placed for continuous cardiac monitoring. The monitor shows a rate of 100 with sinus rhythm interpreted by me Patient met with case management Anupam breen. While the patient states he is depressed and does not want to live he states he is not actively suicidal. 1110: Vital signs stable. Chest x-ray to me appears to show cardiomegaly with cephalization. CT of the head shows no ICH. Patient's high-sensitivity troponin negative. Glucose is 436. Patient was given 5 units of IV insulin for his hyperglycemia. Patient was also given Lasix 40 mg. Will back to reevaluate the patient the patient states he is compliant with his Eliquis but is having too much difficulty breathing. [facility] Impression & Plan Hyperglycemia due to type 2 diabetes mellitus, Congestive heart failure Discharge Plan Visit Data Chief Complaint: Respiratory Problems Stated Complaint: VERY SOB/TROUBLE WALKING ED Provider: Galileo Alcala Discharge Problem: Hyperglycemia due to type 2 diabetes mellitus, Congestive heart failure Patient Disposition: Admitted As Inpatient Condition: Fair
[2025-09-16] MEDS: ACETAMINOPHEN 325 MG TAB PO PRN (17:28)
[2025-09-16] MEDS: FUROSEMIDE 40 MG/4 ML VIAL IV SCH (17:29)
[2025-09-16] MEDS ORDERED: LANTUS PER UNIT CHARGE SQ SCH (21:00)
[2025-09-16] MEDS: REMOVE LIDODERM PATCH SCH (22:05)
[2025-09-17] MEDS: LEVOTHYROXINE SODIUM 25 MCG TABLET PO SCH (05:44)
[2025-09-17 06:53] LABS: Hematocrit (blood only) 48.9 % (42.0-52.0); Hemoglobin 17.0 g/dL (14.0-18.0); Mean Corpuscular Hemoglobin 29.7 pg (25.0-34.0); Mean Corpuscular Volume 85.5 fL (80.0-100.0); Platelet Count 263 K/uL (130-400); RDW Standard Deviation 41.1 fL (36.4-46.3); Red Blood Count 5.72 M/uL (4.70-6.10); White Blood Count 11.92 K/ul (4.8-10.8)
[2025-09-17 07:35] LABS: Anion Gap 7.0 (3-11); Blood Urea Nitrogen 18.0 mg/dl (6-23); Calcium 8.6 mg/dl (8.6-10.3); Carbon Dioxide 27.0 mmol/L (21-32); Chloride 104.0 mmol/L (98-107); Creatinine Clr Calc Pharmacy 151.9 ml/min; Glucose 141.0 mg/dl (70-99(Fasting)); Magnesium 2.1 mg/dl (1.7-2.4); Potassium 4.0 mmol/L (3.5-5.1); Sodium 138.0 mmol/L (136-145)
[2025-09-17] MEDS: ADVANCED PROBIOTIC 625 MG CAPSULE PO SCH (08:34)
[2025-09-17] MEDS: CEROVITE ADV FORMULA TAB PO SCH (08:34)
[2025-09-17] MEDS: CYANOCOBALAMIN (B-12) 500 MCG TABLET PO SCH (08:34)
[2025-09-17] MEDS: TAMSULOSIN HCL 0.4 MG CAP PO SCH (08:34)
--- NOTE | 2025-09-17 08:43 | Electrocardiogram Report ---
Test Reason : Blood Pressure : */* mmHG Vent. Rate : 100 BPM Atrial Rate : 91 BPM P-R Int : 208 ms QRS Dur : 82 ms QT Int : 382 ms P-R-T Axes : 69 89 67 degrees QTcB Int : 492 ms Sinus rhythm with Premature supraventricular complexes Prolonged QT Abnormal ECG When compared with ECG of 29-Aug-2025 10:56, Premature supraventricular complexes are now Present qtc has prolonged Confirmed by Jennifer Clark (Kulwant) on 09/17/2025 8:42:53 AM Referred By: REFERRED SELF Confirmed By: Jennifer Clark
[2025-09-17] MEDS: INSULIN HUMAN NPH SC SCH ×2 (09:12→17:06)
--- NOTE | 2025-09-17 12:58 | Pharmacy Report ---
Pharmacy Glycemic Short Note 2 - Date of Service September 17, 2025 - Glycemic Short BSG Results (Last 24 hours): 09/16/25 09/16/25 09/17/25 16:42 20:13 05:36 Glucose 141 H POC Glucose 319 H* 146 H 09/17/25 09/17/25 07:51 11:44 Glucose POC Glucose 163 H 168 H OUTPATIENT ANTIDIABETIC REGIMEN: * Jardiance 25mg PO daily * Metformin 750mg PO daily * Toujeo (insulin glargine U-300) 100 units SC BID * A1c 10.9% 08/30/25 ASSESSMENT: 09/17: * Facundo received a total of 72 units of insulin yesterday (30 units were basal and 42 units were bolus) * Fasting BSG was 163mg/dL this morning. Will continue NPH 30 units Q AM and using data from previous admissions, added an NPH scale with dinner (0, 5, or 10 units depending on BSG). * Will continue bolus insulin regimen as ordered for now 09/16: * 65 yo M, PMH T2DM, methamphetamine use, presents to the ED with SOB and hyperglycemia. Non-compliance at home. * Insulin glargine U-100 allergy, NPH used for basal while inpatient. * Patient known to pharmacy glycemic service, will begin with basal bolus SC insulin at this time. PLAN FOR INPATIENT GLYCEMIC CONTROL: * Hold outpatient diabetes medications * Basal insulin * NPH 30 units SQ q AM and NPH scale with dinner (0,5, or 10 units depending on BSG) * Bolus insulin * NovoLog per scale ACHS or Q6hrs while NPO * Goal Range: Low 110 mg/dL - High 140 mg/dL * Correction Factor: 15 mg/dL/unit * Nutritional / Prandial insulin per carb ratio of 1 unit per 4 grams CHO consumed
--- NOTE | 2025-09-17 14:35 | Hospitalist Progress Note ---
Date of Service September 17, 2025 Assessment & Plan (1) Congestive heart failure: Plan Mr. Botello is a 65 year old male with PMH significant for insulin-requiring diabetes, venous ulcers of bilateral LE, chronic HFpEF, non-obstructive CAD, PAF on chronic AC with Eliquis, HTN, hyperlipidemia, HCV s/p interferon Rx, BPH, depression/anxiety, and methamphetamine use admitted for SOB with concerns of acute on chronic hfpef exacerbation. #Acute on chronic HFpEF -TTE in December 2024 revealed EF 60-65%, mild aortic valve sclerosis, grade I diastolic dysfunction -congestion noted on CXR, pitting edema BLE -weight on discharge 08/31 115.9 now up to 123.8 this admission -looks better overall today Plan: -Continue IV lasix BID -continue spironolactone and lisinopril -continue Jardiance -Strict I/Os, daily weights -medically ready for SNF #Left Hip Pain -xr hip ordered -voltaren cream ordered #Acute hyperglycemia #Uncontrolled insulin-requiring type 2 DM -Glucose 436 on admission -has difficulty with taking medications consistently at home Plan: -continue jardiance -resumed similar regimen compared to prior admission -glycemic pharmacy -art educator consult #Venous ulcers of both lower extremities -[facility]s [facility] -W[facility] consult -Continue coban wraps MWF and PRN #Paroxysmal atrial fibrillation -Continue Eliquis and metoprolol #Non-obstructive CAD -Continue asa 81mg #Hypertension -Continue lisinopril #BPH -Continue tamsulosin #Anxiety #Depression -Continue bupropion and sertraline #Methamphetamine misuse -reports last use within the week -declines resources at this time but understands this will severely hinder his ability to obtain resources given his complex medical conditions which will progress, patient verbalized understanding I spent a total of 50 minutes in direct patient care, including [id number] time with the patient and/or family, reviewing medical records, ordering and reviewing diagnostic tests, and coordinating care with other healthcare provider s. This time includes: history taking, physical examination, medical decision making, counseling, ECG interpretation, imaging interpretation, lab interpretation, orders, and education, excluding time spent in the performance of separately billed services. Admission and Anticipated Discharge Date Admission Date: September 16, 2025 Subjective Patient seen and examined at bedside. Patient well known to this provider. Was not taking medications at home. [place] his left hip hurt and was having trouble getting around so came to hospital. Recently used meth. Review of Systems Review of Systems: CONSTITUTIONAL: fatigue, weakness EYES: Patient denies any visual symptoms. EARS, NOSE, AND THROAT: No difficulties with hearing. No symptoms of rhinitis or sore throat. CARDIOVASCULAR: Patient denies chest pains, palpitations, orthopnea and paroxysmal nocturnal dyspnea. RESPIRATORY: No dyspnea on exertion, no wheezing or cough. GI: No nausea, vomiting, diarrhea, constipation, abdominal pain, hematochezia or melena. : No urinary hesitancy or dribbling. No nocturia or urinary frequency. No abnormal urethral discharge. MUSCULOSKELETAL: hip pain NEUROLOGIC: No chronic headaches, no seizures. Patient denies numbness, tingling or weakness. PSYCHIATRIC: Patient denies problems with mood disturbance. No problems with anxiety. ENDOCRINE: No excessive urination or excessive thirst. DERMATOLOGIC: Patient denies any rashes or skin changes. Physical Exam Physical Exam: Gen: A&O 3 NAD, class II obesity HEENT: NCAT, EOMI, not icteric. External ears normal. No rhinorrhea. Moist mucous membranes. Neck: Supple, full range of motion, no observable masses, No meningeal sign. Lungs: No Respiratory distress. CV: RRR, no edema. Abdomen: Soft, nondistended, No rebound tenderness. MSK: No joint swelling, no redness. Skin: No rashes, petechiae, lesions. Normal color per patient. Neuro: Normal Gait, Grossly intact. Psych: Appropriate for situation. Results & Data Results & Data Vital Signs (Past 12 Hours) Vital Signs Temp Pulse Pulse Resp BP Pulse Ox Pulse Ox 09/17/25 13:56 61 09/17/25 11:23 36.6 C 76 20 129/76 94 09/17/25 09:46 09/17/25 09:00 96 09/17/25 08:40 36.8 C 78 19 144/77 H 96 09/17/25 07:14 75 09/17/25 02:59 37.1 C 86 18 107/62 91 O2 Del Method O2 Del Method 09/17/25 13:56 09/17/25 11:23 Room Air 09/17/25 09:46 Room Air 09/17/25 09:00 Room Air 09/17/25 08:40 Room Air 09/17/25 07:14 09/17/25 02:59 Room Air Laboratory Results -personally reviewed, WBC at baseline, creatinine at baseline Medications Administered Acetaminophen (Acetaminophen 325 Mg Tab) 650 mg PO Q4H PRN PRN Reason: Pain or Fever Stop: 10/16/25 11:45 Last Admin: 09/17/25 04:36 Dose: 650 mg Documented By: Admin: 09/16/25 17:28 Dose: 650 mg Documented By: KASSANDRA Apixaban (Apixaban 5 Mg Tablet) 5 mg PO BID [facility] Stop: 10/16/25 11:44 Last Admin: 09/17/25 08:35 Dose: 5 mg Documented By: Admin: 09/16/25 22:03 Dose: 5 mg Documented By: Admin: 09/16/25 13:43 Dose: 5 mg Documented By: DAFNE Aspirin (Aspirin 81 Mg Chew) 81 mg PO DAILY [facility] Stop: 10/16/25 11:44 Last Admin: 09/17/25 08:34 Dose: 81 mg Documented By: Admin: 09/16/25 13:43 Dose: 81 mg Documented By: DAFNE Bupropion HCl (Bupropion Xl 300 Mg Tabcr) 300 mg PO DAILY [facility] Stop: 10/17/25 08:59 Last Admin: 09/17/25 08:34 Dose: 300 mg Documented By: KASSANDRA Cyanocobalamin (Cyanocobalamin (B-12) 500 Mcg Tablet) 1,000 mcg PO DAILY [facility] Stop: 10/17/25 08:59 Last Admin: 09/17/25 08:34 Dose: 1,000 mcg Documented By: KASSANDRA Empagliflozin (Empagliflozin 25 Mg Tab) 25 mg PO QAM [facility] Stop: 10/16/25 11:44 Last Admin: 09/17/25 08:51 Dose: 25 mg Documented By: Admin: 09/16/25 13:42 Dose: 25 mg Documented By: DAFNE Fluticasone Furoate (Fluticasone Furoate 100mcg 14 Puffs/Inhaler) 1 puffs INH DAILY [facility] Stop: 10/16/25 11:44 Last Admin: 09/17/25 08:34 Dose: 1 puffs Documented By: Admin: 09/16/25 13:41 Dose: 1 puffs Documented By: DAFNE Furosemide (Furosemide 40 Mg/4 Ml Vial) 40 mg IV BIDM [facility] Stop: 10/16/25 16:59 Last Admin: 09/17/25 08:34 Dose: 40 mg Documented By: Admin: 09/16/25 17:29 Dose: 40 mg Documented By: KASSANDRA Insulin Aspart (Insulin Aspart Per Unit Charge) 0 units SC ACHS [facility] Stop: 10/16/25 13:14 Last Admin: 09/17/25 12:40 Dose: 12 units Documented By: KASSANDRA Co-signed By: HUGO Admin: 09/17/25 09:12 Dose: 9 units Documented By: KASSANDRA Co-signed By: TISH Admin: 09/16/25 22:04 Dose: 1 units Documented By: BLAKE Co-signed By: JOSE MANUEL Admin: 09/16/25 17:55 Dose: 12 units Documented By: KASSANDRA Co-signed By: jet Admin: 09/16/25 14:47 Dose: 24 units Documented By: DAFNE Co-signed By: marcello Insulin Human NPH (Insulin Human Nph) 30 units SC DAILY [facility] Stop: 10/17/25 08:59 Last Admin: 09/17/25 09:12 Dose: 30 units Documented By: KASSANDRA Co-signed By: TISH Lactobacillus Acidophilus (Advanced Probiotic 625 Mg Capsule) 625 mg PO DAILY [facility] Stop: 10/17/25 08:59 Last Admin: 09/17/25 08:34 Dose: 625 mg Documented By: KASSANDRA Levothyroxine Sodium (Levothyroxine Sodium 25 Mcg Tablet) 25 mcg PO DAILYBB [facility] Stop: 10/17/25 06:29 Last Admin: 09/17/25 05:44 Dose: 25 mcg Documented By: ZACKERY Lidocaine (Lidocaine 5% 1 Patch) 1 patch TD QAM [facility] Stop: 10/16/25 11:44 Last Admin: 09/17/25 08:36 Dose: 1 patch Documented By: Admin: 09/16/25 13:43 Dose: 1 patch Documented By: DAFNE Lisinopril (Lisinopril 20 Mg Tab) 20 mg PO DAILY [facility] Stop: 10/17/25 08:59 Last Admin: 09/17/25 08:35 Dose: 20 mg Documented By: KASSANDRA Metoprolol Succinate (Metoprolol Succ 50mg Ext Rel Tab) 50 mg PO BID [facility] Stop: 10/16/25 11:44 Last Admin: 09/17/25 08:35 Dose: 50 mg Documented By: Admin: 09/16/25 22:04 Dose: 50 mg Documented By: Admin: 09/16/25 13:43 Dose: 50 mg Documented By: DAFNE Miscellaneous (Remove Lidoderm Patch) 1 each N/A DAILY@2100 [facility] Stop: 10/16/25 20:59 Last Admin: 09/16/25 22:05 Dose: 1 each Documented By: BLAKE Multivitamins/Minerals (Cerovite Adv Formula Tab) 1 tab PO DAILY [facility] Stop: 10/17/25 08:59 Last Admin: 09/17/25 08:34 Dose: 1 tab Documented By: KASSANDRA Sertraline HCl (Sertraline Hcl 100 Mg Tablet) 100 mg PO QAM [facility] Stop: 10/16/25 11:44 Last Admin: 09/17/25 08:34 Dose: 100 mg Documented By: Admin: 09/16/25 13:43 Dose: 100 mg Documented By: DAFNE Spironolactone (Spironolactone 25 Mg Tab) 25 mg PO DAILY [facility] Stop: 10/16/25 11:44 Last Admin: 09/17/25 08:51 Dose: 25 mg Documented By: Admin: 09/16/25 13:43 Dose: 25 mg Documented By: DAFNE Tamsulosin HCl (Tamsulosin Hcl 0.4 Mg Cap) [facility] [place] [facility] Stop: 10/17/25 08:59 Last Admin: 09/17/25 08:34 Dose: 0.4 mg Documented By: KASSANDRA
--- NOTE | 2025-09-17 15:34 | XRay Report ---
XR hip 1V LT w pelvis CLINICAL HISTORY: Left hip pain. COMPARISON: CT of the abdomen and pelvis August 31, 2025. FINDINGS: Sacroiliac joints and symphysis pubis are intact. There are no fractures within the pelvis or hips. A lucent lesion within the left acetabulum is unchanged. This is likely benign. There is mo derate left hip osteoarthritis with joint space narrowing and osteophytosis. There is also moderate r ight hip osteoarthritis. There is no evidence for avascular necrosis of the femoral heads. IMPRESSION: 1. No fractures within the left hip. 2. Moderate left hip osteoarthritis. ACT 112: Negative or not required by law. Electronically signed by: Gualberto Buitrago M.D. 09/17/2025 3:33 PM
[2025-09-17] MEDS: DICLOFENAC SOD 1% GEL 100 GM TUBE EXT SCH (20:50)
[2025-09-18 06:35] LABS: Hematocrit (blood only) 48.8 % (42.0-52.0); Hemoglobin 16.9 g/dL (14.0-18.0); Mean Corpuscular Hemoglobin 29.3 pg (25.0-34.0); Mean Corpuscular Volume 84.7 fL (80.0-100.0); Platelet Count 242 K/uL (130-400); RDW Standard Deviation 41.3 fL (36.4-46.3); Red Blood Count 5.76 M/uL (4.70-6.10); White Blood Count 11.45 K/ul (4.8-10.8)
[2025-09-18 07:24] LABS: Anion Gap 9.0 (3-11); Blood Urea Nitrogen 25.0 mg/dl (6-23); Calcium 8.6 mg/dl (8.6-10.3); Carbon Dioxide 27.0 mmol/L (21-32); Chloride 102.0 mmol/L (98-107); Creatinine Clr Calc Pharmacy 141.0 ml/min; Glucose 145.0 mg/dl (70-99(Fasting)); Magnesium 2.3 mg/dl (1.7-2.4); Potassium 3.7 mmol/L (3.5-5.1); Sodium 138.0 mmol/L (136-145)
[2025-09-18] MEDS: FUROSEMIDE 40 MG/4 ML VIAL IV SCH (08:31)
--- NOTE | 2025-09-18 11:58 | Hospitalist Progress Note ---
Date of Service September 18, 2025 Assessment & Plan (1) Congestive heart failure: Plan Mr. Botello is a 65 year old male with PMH significant for insulin-requiring diabetes, venous ulcers of bilateral LE, chronic HFpEF, non-obstructive CAD, PAF on chronic AC with Eliquis, HTN, hyperlipidemia, HCV s/p interferon Rx, BPH, depression/anxiety, and methamphetamine use admitted for SOB with concerns of acute on chronic hfpef exacerbation. #Methamphetamine Use -reports last use within the week -declines resources at this time but understands this will severely hinder his ability to obtain resources given his complex medical conditions which will progress, patient verbalized understanding #Acute on chronic HFpEF -TTE in December 2024 revealed EF 60-65%, mild aortic valve sclerosis, grade I diastolic dysfunction -congestion noted on CXR, pitting edema BLE which have improved Plan: -decrease lasix to 40 IV daily -continue spironolactone and lisinopril -continue Jardiance -medically ready for SNF #Left Hip Pain -xr hip unremarkable -voltaren cream ordered #Acute hyperglycemia #Uncontrolled insulin-requiring type 2 DM -Glucose 436 on admission -has difficulty with taking medications consistently at home Plan: -continue jardiance -resumed similar regimen compared to prior admission -glycemic pharmacy -life educator consult #Venous ulcers of both lower extremities -Follows with [facility] -WOCN consult -Continue coban wraps MWF and PRN #Paroxysmal atrial fibrillation -Continue Eliquis and metoprolol #Non-obstructive CAD -Continue asa 81mg #Hypertension -Continue lisinopril #BPH -Continue tamsulosin #Anxiety #Depression -Continue bupropion and sertraline I spent a total of 40 minutes in direct patient care, including [id number] time with the patient and/or family, reviewing medical records, ordering and reviewing diagnostic tests, and coordinating care with other healthcare providers. This time includes: history taking, physical examination, medical decision making, counseling, ECG interpretation, imaging interpretation, lab interpretation, orders, and education, excluding time spent in the performance of separately billed services. Admission and Anticipated Discharge Date Admission Date: September 16, 2025 Subjective Patient seen and examined at bedside. Patient states he just feels "crappy" overall. Unable to point to specific symptom. Otherwise doing ok. Review of Systems Review of Systems: CONSTITUTIONAL: fatigue, weakness EYES: Patient denies any visual symptoms. EARS, NOSE, AND THROAT: No difficulties with hearing. No symptoms of rhinitis or sore throat. CARDIOVASCULAR: Patient denies chest pains, palpitations, orthopnea and paroxysmal nocturnal dyspnea. RESPIRATORY: No dyspnea on exertion, no wheezing or cough. GI: No nausea, vomiting, diarrhea, constipation, abdominal pain, hematochezia or melena. : No urinary hesitancy or dribbling. No nocturia or urinary frequency. No abnormal urethral discharge. MUSCULOSKELETAL: hip pain NEUROLOGIC: No chronic headaches, no seizures. Patient denies numbness, tingling or weakness. PSYCHIATRIC: Patient denies problems with mood disturbance. No problems with anxiety. ENDOCRINE: No excessive urination or excessive thirst. DERMATOLOGIC: Patient denies any rashes or skin changes. Physical Exam Physical Exam: Gen: A&O 3 NAD, class II obesity HEENT: NCAT, EOMI, not icteric. External ears normal. No rhinorrhea. Moist mucous membranes. Neck: Supple, full range of motion, no observable masses, No meningeal sign. Lungs: No Respiratory distress. CV: RRR, no edema. Abdomen: Soft, nondistended, No rebound tenderness. MSK: No joint swelling, no redness. Noted chronic wounds in bilateral LE Skin: No rashes, petechiae, lesions. Normal color per patient. Neuro: Normal Gait, Grossly intact. Psych: Appropriate for situation. Results & Data Results & Data Vital Signs (Past 12 Hours) Vital Signs Temp Pulse Pulse Pulse Resp BP Pulse Ox 09/18/25 11:42 36.6 C 70 110/73 95 09/18/25 09:16 09/18/25 09:15 09/18/25 07:37 36.4 C L 71 18 114/73 92 09/18/25 06:50 71 09/18/25 03:02 36.5 C 73 18 113/66 93 Pulse Ox O2 Del Method O2 Del Method 09/18/25 11:42 Room Air 09/18/25 09:16 Room Air 09/18/25 09:15 92 Room Air 09/18/25 07:37 Room Air 09/18/25 06:50 09/18/25 03:02 Room Air Laboratory Results -personally reviewed, creatinine at baseline, electrolytes unremarkable Medications Administered Acetaminophen (Acetaminophen 325 Mg Tab) 650 mg PO Q4H PRN PRN Reason: Pain or Fever Stop: 10/16/25 11:45 Last Admin: 09/17/25 04:36 Dose: 650 mg Documented By: Admin: 09/16/25 17:28 Dose: 650 mg Documented By: KASSANDRA Apixaban (Apixaban 5 Mg Tablet) 5 mg PO BID [facility] Stop: 10/16/25 11:44 Last Admin: 09/18/25 08:33 Dose: 5 mg Documented By: Admin: 09/17/25 20:50 Dose: 5 mg Documented By: Admin: 09/17/25 08:35 Dose: 5 mg Documented By: Admin: 09/16/25 22:03 Dose: 5 mg Documented By: Admin: 09/16/25 13:43 Dose: 5 mg Documented By: DAFNE Aspirin (Aspirin 81 Mg Chew) 81 mg PO DAILY [facility] Stop: 10/16/25 11:44 Last Admin: 09/18/25 08:34 Dose: 81 mg Documented By: Admin: 09/17/25 08:34 Dose: 81 mg Documented By: Admin: 09/16/25 13:43 Dose: 81 mg Documented By: DAFNE Bupropion HCl (Bupropion Xl 300 Mg Tabcr) 300 mg PO DAILY [facility] Stop: 10/17/25 08:59 Last Admin: 09/18/25 08:33 Dose: 300 mg Documented By: Admin: 09/17/25 08:34 Dose: 300 mg Documented By: KASSANDRA Cyanocobalamin (Cyanocobalamin (B-12) 500 Mcg Tablet) 1,000 mcg PO DAILY [facility] Stop: 10/17/25 08:59 Last Admin: 09/18/25 08:33 Dose: 1,000 mcg Documented By: Admin: 09/17/25 08:34 Dose: 1,000 mcg Documented By: KASSANDRA Diclofenac Sodium (Diclofenac Sod 1% Gel 100 Gm Tube) 4 gm EXT Q12 [facility]; Protocol Stop: 10/17/25 20:59 Last Admin: 09/18/25 08:32 Dose: 4 gm Documented By: Admin: 09/17/25 20:50 Dose: 4 gm Documented By: ZACKERY Empagliflozin (Empagliflozin 25 Mg Tab) 25 mg PO QAM [facility] Stop: 10/16/25 11:44 Last Admin: 09/18/25 08:33 Dose: 25 mg Documented By: Admin: 09/17/25 08:51 Dose: 25 mg Documented By: Admin: 09/16/25 13:42 Dose: 25 mg Documented By: DAFNE Fluticasone Furoate (Fluticasone Furoate 100mcg 14 Puffs/Inhaler) 1 puffs INH DAILY [facility] Stop: 10/16/25 11:44 Last Admin: 09/18/25 08:32 Dose: 1 puffs Documented By: Admin: 09/17/25 08:34 Dose: 1 puffs Documented By: Admin: 09/16/25 13:41 Dose: 1 puffs Documented By: DAFNE Furosemide (Furosemide 40 Mg/4 Ml Vial) 40 mg IV DAILY [facility] Stop: 10/18/25 08:59 Last Admin: 09/18/25 08:31 Dose: 40 mg Documented By: KASSANDRA Insulin Aspart (Insulin Aspart Per Unit Charge) 0 units SC ACHS [facility] Stop: 10/16/25 13:14 Last Admin: 09/18/25 08:53 Dose: 11 units Documented By: KASSANDRA Co-signed By: KEENAN Admin: 09/17/25 20:53 Dose: 2 units Documented By: ZACKERY Co-signed By: [id number] Admin: 09/17/25 17:33 Dose: 10 units Documented By: KASSANDRA Co-signed By: HUGO Admin: 09/17/25 12:40 Dose: 12 units Documented By: KASSANDRA Co-signed By: HUGO Admin: 09/17/25 09:12 Dose: 9 units Documented By: KASSANDRA Co-signed By: TISH Admin: 09/16/25 22:04 Dose: 1 units Documented By: BLAKE Co-signed By: JOSE MANUEL Admin: 09/16/25 17:55 Dose: 12 units Documented By: KASSANDRA Co-signed By: jet Admin: 09/16/25 14:47 Dose: 24 units Documented By: DAFNE Co-signed By: marcello Insulin Human NPH (Insulin Human Nph) 30 units SC DAILY [facility] Stop: 10/17/25 08:59 Last Admin: 09/18/25 08:42 Dose: 30 units Documented By: KASSANDRA Co-signed By: KEENAN Admin: 09/17/25 09:12 Dose: 30 units Documented By: KASSANDRA Co-signed By: TISH Insulin Human NPH (Insulin Human Nph) 0 units SC QDD [facility]; Protocol Stop: 10/17/25 16:29 Last Admin: 09/17/25 17:06 Dose: Not Given Documented By: KASSANDRA Levothyroxine Sodium (Levothyroxine Sodium 25 Mcg Tablet) 25 mcg PO DAILYBB [facility] Stop: 10/17/25 06:29 Last Admin: 09/18/25 05:21 Dose: 25 mcg Documented By: Admin: 09/17/25 05:44 Dose: 25 mcg Documented By: ZACKERY Lidocaine (Lidocaine 5% 1 Patch) 1 patch TD [facility] Stop: 10/16/25 11:44 Last Admin: 09/18/25 08:31 Dose: 1 patch Documented By: Admin: 09/17/25 08:36 Dose: 1 patch Documented By: Admin: 09/16/25 13:43 Dose: 1 patch Documented By: DAFNE Lisinopril (Lisinopril 20 Mg Tab) 20 mg PO DAILY [facility] Stop: 10/17/25 08:59 Last Admin: 09/18/25 08:33 Dose: 20 mg Documented By: Admin: 09/17/25 08:35 Dose: 20 mg Documented By: KASSANDRA Metoprolol Succinate (Metoprolol Succ 50mg Ext Rel Tab) 50 mg PO BID [facility] Stop: 10/16/25 11:44 Last Admin: 09/18/25 08:33 Dose: 50 mg Documented By: Admin: 09/17/25 20:50 Dose: 50 mg Documented By: Admin: 09/17/25 08:35 Dose: 50 mg Documented By: Admin: 09/16/25 22:04 Dose: 50 mg Documented By: Admin: 09/16/25 13:43 Dose: 50 mg Documented By: DAFNE Miscellaneous (Remove Lidoderm Patch) 1 each N/A DAILY@2100 [facility] Stop: 10/16/25 20:59 Last Admin: 09/17/25 20:52 Dose: 1 each Documented By: Admin: 09/16/25 22:05 Dose: 1 each Documented By: BLAKE Multivitamins/Minerals (Cerovite Adv Formula Tab) 1 tab PO DAILY [facility] Stop: 10/17/25 08:59 Last Admin: 09/18/25 08:33 Dose: 1 tab Documented By: Admin: 09/17/25 08:34 Dose: 1 tab Documented By: KASSANDRA Sertraline HCl (Sertraline Hcl 100 Mg Tablet) 100 mg PO [facility] Stop: 10/16/25 11:44 Last Admin: 09/18/25 08:33 Dose: 100 mg Documented By: Admin: 09/17/25 08:34 Dose: 100 mg Documented By: Admin: 09/16/25 13:43 Dose: 100 mg Documented By: DAFNE Spironolactone (Spironolactone 25 Mg Tab) 25 mg PO DAILY [facility] Stop: 10/16/25 11:44 Last Admin: 09/18/25 08:33 Dose: 25 mg Documented By: Admin: 09/17/25 08:51 Dose: 25 mg Documented By: Admin: 09/16/25 13:43 Dose: 25 mg Documented By: DAFNE Tamsulosin HCl (Tamsulosin Hcl 0.4 Mg Cap) 0.4 mg PO [facility] Stop: 10/17/25 08:59 Last Admin: 09/18/25 08:33 Dose: 0.4 mg Documented By: Admin: 09/17/25 08:34 Dose: 0.4 mg Documented By: KASSANDRA
[2025-09-18] MEDS: MICONAZOLE NITRATE POWDER 85 GM EXT SCH (20:42)
[2025-09-19 06:40] LABS: Hematocrit (blood only) 50.2 % (42.0-52.0); Hemoglobin 17.0 g/dL (14.0-18.0); Mean Corpuscular Hemoglobin 28.7 pg (25.0-34.0); Mean Corpuscular Volume 84.7 fL (80.0-100.0); Platelet Count 238 K/uL (130-400); RDW Standard Deviation 41.7 fL (36.4-46.3); Red Blood Count 5.93 M/uL (4.70-6.10); White Blood Count 10.62 K/ul (4.8-10.8)
[2025-09-19 07:13] LABS: Anion Gap 9.0 (3-11); Blood Urea Nitrogen 32.0 mg/dl (6-23); Calcium 8.6 mg/dl (8.6-10.3); Carbon Dioxide 25.0 mmol/L (21-32); Chloride 104.0 mmol/L (98-107); Creatinine Clr Calc Pharmacy 126.3 ml/min; Glucose 120.0 mg/dl (70-99(Fasting)); Potassium 3.9 mmol/L (3.5-5.1); Sodium 138.0 mmol/L (136-145)
--- NOTE | 2025-09-19 09:05 | Pharmacy Report ---
Pharmacy Glycemic Short Note 2 - Date of Service September 19, 2025 - Glycemic Short BSG Results (Last 24 hours): 09/18/25 09/18/25 09/18/25 11:52 17:00 20:09 Glucose POC Glucose 202 H 157 H 175 H 09/19/25 09/19/25 05:51 07:45 Glucose 120 H POC Glucose 174 H OUTPATIENT ANTIDIABETIC REGIMEN: * Jardiance 25mg PO daily * Metformin 750mg PO daily * Toujeo (insulin glargine U-300) 100 units SC BID * A1c 10.9% 08/30/25 ASSESSMENT: 09/19: * BSGs [phone]/dL the last 24h. Received 30 units of basal and 33 units bolus insulin yesterday. * Other stressors stable. * No change to AM NPH - will increase evening scale given elevated fasting BSG. No change to Novolog. 09/17: * Facundo received a total of 72 units of insulin yesterday (30 units were basal and 42 units were bolus) * Fasting BSG was 163mg/dL this morning. Will continue NPH 30 units Q AM and using data from previous admissions, added an NPH scale with dinner (0, 5, or 10 units depending on BSG). * Will continue bolus insulin regimen as ordered for now 09/16: * 65 yo M, PMH T2DM, methamphetamine use, presents to the ED with SOB and hyperglycemia. Non-compliance at home. * Insulin glargine U-100 allergy, NPH used for basal while inpatient. * Patient known to pharmacy glycemic service, will begin with basal bolus SC insulin at this time. PLAN FOR INPATIENT GLYCEMIC CONTROL: * Hold outpatient diabetes medications * Basal insulin * NPH 30 units SQ q AM and NPH scale with dinner (5 or 10 units depending on BSG) * Bolus insulin * NovoLog per scale ACHS or Q6hrs while NPO * Goal Range: Low 110 mg/dL - High 140 mg/dL * Correction Factor: 15 mg/dL/unit * Nutritional / Prandial insulin per carb ratio of 1 unit per 4 grams CHO consumed
--- NOTE | 2025-09-19 10:53 | Hospitalist Progress Note ---
Date of Service September 19, 2025 Assessment & Plan (1) Acute on chronic heart failure with preserved ejection fraction: (2) Osteoarthritis of left hip: (3) Adjustment disorder with depressed mood: (4) Diabetes mellitus due to underlying condition, uncontrolled, with hyperglycemia, with long-term current use of insulin: (5) Paroxysmal atrial fibrillation: (6) Methamphetamine abuse: Plan: Intermittent (7) Ambulatory dysfunction: (8) Venous ulcers of both lower extremities: (9) Hypertension: (10) Peripheral vascular disease: (11) Obesity (BMI 30-39.9): Plan Patient 65-year-old gentleman with heart failure seems to be in a compensated state. Other medical issues have stabilized. Transition to oral Lasix, continue Aldactone Continue other antihypertensive/CHF medications, patient tolerating well Continue insulin to monitor glucose, pharmacy assisting with adjusting insulin dosages Continue with wound care for chronic venous ulceration Case management pursuing placement options Okay for MedSurg Continue therapy Symptomatic care for hip osteoarthritis Admission and Anticipated Discharge Date Admission Date: September 16, 2025 Subjective No acute issues overnight. Patient denies any chest pain. No shortness of breath. He feels as though his ankles are still little swollen. Also complains of right hip pain. He states that this been ongoing for a couple weeks even prior to admission. Cannot recall any definitive trauma Physical Exam Physical Exam: Constitutional: Alert, no acute distress HEENT: Mucous membranes moist. Lungs: Clear to auscultation, decreased, no wheezes rales or rhonchi CV: S1-S2, irregular Abdomen: Soft, nontender, nondistended Extremities: No ankle or pretibial edema Neuro: No focal deficits Psych: Cooperative, flat affect, depressed mood Results & Data Results & Data Vital Signs (Past 12 Hours) Vital Signs Temp Pulse Resp BP BP Pulse Ox O2 Del Method 09/19/25 06:45 36.3 C L 68 16 114/74 92 Room Air 09/18/25 23:00 36.7 C 67 16 106/67 95 Room Air Diagnostic Findings Reviewed imaging, laboratory and diagnostic studies. Pertinent findings as below. CBC within normal ranges Electrolytes stable BUN 32 Creatinine 0.77 Glucoses reviewed (9) Hypertension Hypertension type: unspecified Qualified Code(s): I10 - Essential (primary) hypertension
[2025-09-19] MEDS: ACETAMINOPHEN 500 MG TAB PO SCH (13:31)
[2025-09-20 07:44] VITALS: RESP 16; TEMP 98.1; O2SAT 97
[2025-09-20] MEDS: FUROSEMIDE 40 MG TAB PO SCH (10:00)
--- NOTE | 2025-09-20 12:09 | Discharge Summary ---
Discharge Summary Date of Service September 20, 2025 Principal Dx & Hospital Course #1 = Principal Diagnosis (1) Acute on chronic heart failure with preserved ejection fraction: (2) Osteoarthritis of left hip: (3) Adjustment disorder with depressed mood: (4) Diabetes mellitus due to underlying condition, uncontrolled, with hyperglycemia, with long-term current use of insulin: (5) Paroxysmal atrial fibrillation: (6) Methamphetamine abuse: Intermittent (7) Ambulatory dysfunction: (8) Venous ulcers of both lower extremities: (9) Hypertension: (10) Peripheral vascular disease: (11) Obesity (BMI 30-39.9): (12) Hypothyroidism: New diagnosis Plan Patient 65-year-old gentleman he has been in and out of the hospital with his multiple comorbidities and issues with compliance and recreational use of methamphetamine presented to the emergency room with increasing shortness of breath. Evaluation in the emergency room was consistent with decompensated heart failure. His weight was significantly increased from his previous discharge. Patient was also complaining of some hip pain. Patient was admitted to the hospital. He was diuresed with IV Lasix. He responded well to this intervention. TSH was checked, free T4 was also low. He was started on Synthroid. Imaging of the hip revealed osteoarthritis and his symptoms were controlled with Tylenol. Patient initially very interested in going to skilled rehab facility to build up some strength and to continue him with his good compliance with his medical regimen. Case management was involved in his care. An extensive search for rehab facility ensued. Patient was not excepted at any facility. Overall he was improving and he felt confident that he could care for himself at home. manager of case management will attempt to set him up with some home health care services. They to have declined to accept him as a patient very frequently. He was transition to oral Lasix prior to discharge. His weight was actually below his discharge weight from previous hospitalizations. Other vital signs are stable. He was strongly encouraged not to use any more methamphetamine. Also encouraged to be compliant with his medications as prescribed and follow-up with his outpatient providers. Notes For Next Care Provider May need additional titration of medications for blood pressure and heart failure Recommend checking TSH in 4 to 6 weeks Medication Changes From Visit Synthroid Admission HPI Per Admitting Provider Mr. Botello is a 65 year old male with PMH significant for insulin-requiring diabetes, venous ulcers of bilateral LE, chronic HFpEF, non-obstructive CAD, PAF on chronic AC with Eliquis, HTN, hyperlipidemia, HCV s/p interferon Rx, BPH, depression/anxiety, and methamphetamine use admitted for SOB with concerns of acute on chronic hfpef exacerbation presented to [facility] ED due to shortness of breath. Patient states that he thinks he took his medications within the last 48 hours, but is unsure. He states he feels short of breath and uncomfortable, but much better since returning to the hospital and receiving lasix. He states that he last used meth within the week--but doesn't remember when. He states he has pill packs and tries to take his pills, but sometimes forgets and doesnt think its because of the meth. He denies fevers chills chest pain or other acute concerns. He reports feeling tearful as its hard to get help and he just can't always "do the things [he] needs to do." He has previously had home health, but they stopped given his drug use. He isnt sure he wants to quit--he states "its the only thing I do now a nyway"--it was explained that despite being a singular substance of use, it is a very dangerous substance and will only worsen all of his medical conditions. Patient became tearful and overwhelmed. He denies smoking tobacco, he reports some occasional etoh, and weekly meth use. In the ED, vitals were notable for BP of 150-180s, HR of 60-90s and O2 sat of low-mid 90s on RA Imaging revealed some vascular congestion and effusions suggestive of overload; however, all very similar to prior imaging reports EKG irregular rhythm ED interventions: IV lasix 40, insulin 5 U Consultants: Patient to be admitted to med/tele for further evaluation and management of acute on chronic HFpEF Admission Exam Per Admitting Provider See H&P Discharge Exam Constitutional: Alert HEENT: Mucous membranes moist. Lungs: Clear to auscultation, decreased, no wheezes rales or rhonchi CV: S1-S2, irregular Abdomen: Soft, nontender, nondistended Extremities: No significant edema Neuro: No focal deficits Psych: Cooperative, normal mood Updated Medication List Medication Instructions Recorded Confirmed Type multivitamin with minerals 1 tab PO DAILY 09/21/22 09/16/25 History (Multiple Vitamin-Minerals tablet) lisinopril 20 mg tablet 20 mg PO DAILY 10/10/23 09/16/25 History sertraline 100 mg tablet 100 mg PO QAM 10/10/23 09/16/25 History albuterol sulfate 90 mcg/actuation 90 mcg inhalation Q4H PRN Wheezing 06/06/24 09/16/25 History aerosol inhaler fluticasone furoate 100 100 mcg inhalation DAILY 08/05/24 09/16/25 History mcg/actuation blister powder for inhalation (Arnuity Ellipta) insulin aspart U-100 100 unit/mL 20 - 60 unit subcut TIDWMEAL 12/15/24 09/16/25 History (3 mL) subcutaneous pen (Novolog FlexPen U-100 Insulin aspart) nitroglycerin 0.4 mg sublingual 0.4 mg sublingual DIRECTED PRN 02/28/25 09/16/25 History tablet Chest Pain L.acidop,casei,lactis,rham-B.lact,guanakito 1 cap PO DAILY #30 caps 03/09/25 09/16/25 Rx 625 mg (10 billion cell) capsule (Advanced Probiotic) aspirin 81 mg chewable tablet 81 mg PO DAILY 06/02/25 09/16/25 History cyanocobalamin (vitamin B-12) 1,000 mcg PO DAILY 06/27/25 09/16/25 History 1,000 mcg tablet,extended release (Vitamin B-12 ER) furosemide 20 mg tablet (Lasix) 40 mg (2 x 20 mg) PO QAM #60 tabs 07/11/25 09/16/25 Rx insulin glargine U-300 conc 300 100 unit (0.3333 mL) subcut BID #6 07/11/25 09/16/25 Rx unit/mL (3 mL) subcutaneous pen mL (Toujeo Max U-300 SoloStar) lidocaine 5 % topical patch 1 patch transdermal QAM #10 ea 07/25/25 09/16/25 Rx acetaminophen 500 mg tablet 1,000 mg (2 x 500 mg) PO TID #200 09/20/25 Rx (Tylenol Extra Strength) tabs apixaban 5 mg tablet (Eliquis) 5 mg PO BID #60 tabs 09/20/25 Rx bupropion HCl 300 mg 24 hr tablet, 0 mg (0 x 300 mg) PO DAILY #30 tabs 09/20/25 Rx extended release empagliflozin 25 mg tablet 25 mg PO QAM #30 tabs 09/20/25 Rx (Jardiance) furosemide 40 mg tablet 40 mg PO QAM #30 tabs 09/20/25 Rx levothyroxine 25 mcg tablet 25 mcg PO DAILYBB #30 tabs 09/20/25 Rx (Synthroid) metformin 750 mg tablet,extended 750 mg PO DAILY #30 tabs 09/20/25 Rx release 24 hr metoprolol succinate 50 mg 50 mg PO BID #60 tabs 09/20/25 Rx tablet,extended release 24 hr spironolactone 25 mg tablet 25 mg PO DAILY #30 tabs 09/20/25 Rx tamsulosin 0.4 mg capsule 0.4 mg PO QAM #30 caps 09/20/25 Rx Hospital Stay Data Consultations 09/16/25 11:08 ED Decision to Admit Stat Diagnostic Imagining Performed 09/16/25 09:36 CT head/brain wo con Stat Reviewed imaging, laboratory and diagnostic studies. Pertinent findings as below. WBCs 10.6 Hemoglobin 17.0 Platelets of 238 Electrolytes within normal range Creatinine 0.77 Magnesium 2.3 Troponin within normal range TSH 6.8 Free T4 0.56 Pending Results Patient Have Any Pending Studies at Discharge: No Discharge Instructions Given to Patient (Per Discharging Provider) You must absolutely stop using methamphetamine Take all medications as prescribed Follow-up with your PCP Home Health Attestation I certify that this patient is under my care and that I, or a physicians purchasing assistant working with me, had a face to-face encounter that meets the home health [id number] encounter requirements with this patient. The encounter with the patient was in whole, or in part, for the following medical condition, which is the primary reason for home health care (list medical condition): I certify that, based on my findings, the following services are medically necessary home health services: My clinical findings support the need for the above services because: Further, I certify that my clinical findings support that this patient is homebound (i.e. absences from home require considerable and taxing effort and are for medical reasons or confucianism services or infrequently or of short duration when for other reasons) because: Certification for Home Health Services: Based on the above findings, I certify that this patient is confined to the home and needs intermittent half-way care, physical therapy and/or speech therapy or continues to need occupational therapy. The patient is under my care, and I have initiated the establishment of the plan of care. This patient will be followed by a physician who will periodically review the plan of care. Total Time Total Time Spent Total Time Spent (In Minutes): 40
[2025-09-20 14:45] VITALS: BP 126/81; PULSE 96
== END 2025-09-20 16:23 | disposition home health service (06) | DRG 291 ==
LOC: ED 08:17 → 2N 11:47 → SUATTDRO 11:47 → 2N 16:34

== ENCOUNTER 2025-09-23 10:31 | Observation (INO) ==
--- NOTE | 2025-09-23 10:43 | Emergency Department Note ---
Impression & Plan Weakness, Acute hyponatremia, Elevated lipase ED Provider Note NAME: ELIN ELLISON AGE: 65 SEX: M : 1960 ARRIVES VIA: Ambulance INFORMANT: Patient ED PROVIDER(S): Ahmet Brown DO CHIEF COMPLAINT: Cannot walk, weakness, redness in the legs HPI: Patient is a 65-year-old male with a past medical history of medication noncompliance, CHF, diabetes, encephalopathy who presents to the ER for weakness. He notes he cannot get up and walk and has been super weak today. He was unable to get to the bathroom last night in time and had loose stools. He notes he did not check his sugars this morning. He has not given himself anything for his blood sugars either. He denies any headache or change in vision. No chest pain or shortness of breath. No nausea or vomiting. No belly pain. No urinary symptoms. ADDITIONAL HISTORY OBTAINED: Per HPI Chronic Medical/Social Conditions Affecting Care: Per HPI PAST MEDICAL HISTORY:See Below PAST SURGICAL HISTORY:See Below FAMILY HISTORY:See Below SOCIAL HISTORY:See Below HOME MEDICATIONS:See Below ALLERGIES:See Below VITALS:See Below PHYSICAL EXAMINATION: GENERAL: Sitting up in bed, alert, chronically ill-appearing, disheveled EYE EXAM: normal conjunctiva. PERRL and EOM's grossly intact. OROPHARYNX: no exudate, no erythema, lips, buccal mucosa, and tongue normal and mucous membranes are moist NECK: supple, no nuchal rigidity, no adenopathy, non-tender LUNGS: Clear to auscultation. Normal chest wall mechanics HEART: no murmurs, S1 normal and S2 normal ABDOMEN: abdomen soft, non-tender, normo-active bowel sounds, no masses, no rebound or guarding. UPPER EXTREMITIES: upper extremities are grossly normal. LOWER EXTREMITIES: Erythema in the bilateral legs with several scabs and surrounding redness. Skin is warm and tender. NEURO EXAM: Normal sensorium, cranial nerves II-XII grossly intact, normal speech, no gross weakness of arms, no gross weakness of legs. MEDICAL DECISION MAKING: Patient is a 65-year-old male who presents to the ER for weakness. He was just discharged. IV was established and blood work was obtained. Labs show no significant leukocytosis or anemia. BMP with a slightly elevated glucose of 264. LFTs bilirubin was unremarkable. Lipase mildly elevated at 175. UA was clean. COVID flu and RSV was negative. CT abdomen pelvis per my pleurae interpretation showed no obvious bowel obstruction. Patient has some mild redness on his legs. Was covered with antibiotics. Patient felt uncomfortable going home as he cannot get up and move around and consequently was discussed with hospitalist for further evaluation management treatment. Consults/Care Managements Discussions: Per MDM Triage Nursing notes reviewed. Limited review of prior medical records performed Vital Signs: reviewed and remarkable for no significant abnormalities Differential diagnosis: Infection, dehydration, metabolic abnormality, hypo/hyperglycemia, electrolyte disturbance, anemia, hypoxia, cardiac sources, intracerebral event, toxicologic, neurologic, as well as other pathologies. ER treatment provided: See below Diagnostics interpreted by me include EKG and cardiac monitoring as listed below: -Cardiac Monitoring: An order was placed for continuous cardiac monitoring. The monitor shows a rate of 80 with sinus rhythm. -ECG: none -Laboratory studies:Interpreted by me as stated above in MDM and shown below. Imaging studies: Xrays: As interpreted by me:none CTs show: CT abdomen pelvis per my preliminary interpretation shows no obvious bowel obstruction CT abdomen pelvis per radiologist described above Procedures:none Critical Care: None Past Med/Surg History Problem List (Updated 09/23/25 @ 16:22 by Ahmet Brown DO) Elevated lipase (Acute) Acute hyponatremia (Acute) Weakness (Acute) Cellulitis Hypothyroidism Obesity (BMI 30-39.9) Osteoarthritis of left hip Acute on chronic heart failure with preserved ejection fraction Congestive heart failure (Acute) Nausea & vomiting Nonadherence to medication (Acute) Acute hyperglycemia (Acute) Loss of protective sensation of skin of deformed foot 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 back pain and leg pain Adjustment disorder with depressed mood Stroke-like symptom (Acute) Acute hyperglycemia (Acute) Acute metabolic encephalopathy Open wound of both legs with complication Wound of left lower extremity Acute hypoxemic respiratory failure Hyperglycemia due to diabetes mellitus (Acute) Diabetic foot ulcer (Acute) Diabetes mellitus due to underlying condition, uncontrolled, with hyperglycemia, with long-term current use of insulin Major depressive disorder Chronic venous insufficiency (Acute) Paroxysmal atrial tachycardia Paroxysmal atrial fibrillation Methamphetamine abuse PAC (premature atrial contraction) Diabetic peripheral neuropathy (Acute) Diabetic neuropathic arthritis Unable to care for self (Acute) Ambulatory dysfunction (Acute) BPH (benign prostatic hyperplasia) Anxiety and depression Morbid obesity with BMI of 40.0-44.9, adult ALEJANDRA (obstructive sleep apnea) Hyperglycemia (Acute) Nonischemic cardiomyopathy (Chronic) "prior EF 30% per Epic records. echo 02/2015- EF 40-45%" DM type 2 (diabetes mellitus, type 2) (Chronic) Hepatitis C (Chronic) Hypertension (Chronic) Hyperglycemia due to type 2 diabetes mellitus (Acute) Polyneuropathy Peripheral vascular disease Depression Encephalopathy Varicose veins of bilateral lower extremities with other complications Morbid obesity Medical History Coronary artery disease Chronic heart failure with preserved ejection fraction (HFpEF) Venous stasis ulcer of right lower leg with edema of right lower leg Hyperglycemia Unable to care for self Noncompliance with medications Noncompliance w/medication treatment due to intermit use of medication H/O drug abuse Colon polyp "TVA polyp on colonoscopy 09/2014" H/O toxoplasmosis H/O TB (tuberculosis) Closed head injury Peripheral neuropathy Acute dehydration Dysequilibrium Hepatitis C Diabetes mellitus, type 2 Depression Anxiety Hypertension Surgical History S/P cardiac cath "for abnormal stress test. cath 03/18/2015-essentially normal coronaries with no obstructive disease " H/O colonoscopy "11/2015- diverticulosis" History of umbilical hernia repair x2 History of tooth extraction History of wisdom tooth extraction Family History Mother Family history of diabetes mellitus Father Family history of diabetes mellitus Other No family history of adverse response to anesthesia Social History Smoking Status: Never smoker Tobacco Type: Cigarettes and Smokeless Tobacco (Dip or Chew) Second Hand Exposure: No; Do You Dip or Chew Tobacco: No; Hx Alcohol Use: Yes Alcohol type: wine and hard liquor Alcohol Intake Frequency: Monthly or Less Hx Substance Use: Yes Non-Prescribed Medications: Methamphetamines Last Used Substance: Days (ago) Last Used Substance Other:: 2 weeks ago Substance Use Type Other:: MDMA, speed Preferred Language: Moroccan Communication Ability: Effective Visual Impairment: Severely Limited Hearing Ability: Normal Physician Assistant Surgery Required: No Beliefs That Will Affect Care: None marital status: Single Current Living Situation: Alone Current Living Situation Comment: lives alone Feels Safe at Home: Yes Diet: regular caffeine: Yes Gender Identity: Male Assistive Devices: Cane, Walker and Other Allergies Allergies Allergy/AdvReac Type Severity Reaction Status Date / Time shellfish derived Allergy Severe Swelling Verified 09/12/25 13:05 amoxicillin Allergy Intermediate HIVES Verified 09/12/25 13:05 clavulanic acid Allergy Intermediate HIVES Verified 09/12/25 13:05 permethrin Allergy Intermediate swelling Verified 09/12/25 13:05 shrimp Allergy Intermediate SWELLS Verified 09/12/25 13:05 sulfamethoxazole Allergy Unknown CAN'T Verified 09/12/25 13:05 [From Bactrim] REMEMBER trimethoprim [From Bactrim] Allergy Unknown CAN'T Verified 09/12/25 13:05 REMEMBER insulin glargine AdvReac Severe CHF PER Verified 09/12/25 13:05 [From Lantus U-100 Insulin] [facility] Home Meds Home Medications Medication Instructions Recorded Confirmed multivitamin with minerals 1 tab PO DAILY 09/21/22 09/23/25 (Multiple Vitamin-Minerals tablet) lisinopril 20 mg tablet 20 mg PO DAILY 10/10/23 09/23/25 sertraline 100 mg tablet 100 mg PO QAM 10/10/23 09/23/25 albuterol sulfate 90 mcg/actuation 90 mcg inhalation Q4H PRN Wheezing 06/06/24 09/23/25 aerosol inhaler fluticasone furoate 100 100 mcg inhalation DAILY 08/05/24 09/23/25 mcg/actuation blister powder for inhalation (Arnuity Ellipta) insulin aspart U-100 100 unit/mL 20 - 60 unit subcut TIDWMEAL 12/15/24 09/23/25 (3 mL) subcutaneous pen (Novolog FlexPen U-100 Insulin aspart) nitroglycerin 0.4 mg sublingual 0.4 mg sublingual DIRECTED PRN 02/28/25 09/23/25 tablet Chest Pain aspirin 81 mg chewable tablet 81 mg PO DAILY 06/02/25 09/23/25 cyanocobalamin (vitamin B-12) 1,000 mcg PO DAILY 06/27/25 09/23/25 1,000 mcg tablet,extended release (Vitamin B-12 ER) Previous Rx's Medication Instructions Recorded L.acidop,casei,lactis,rham-B.lact,guan[place] 1 cap PO DAILY #30 caps 03/09/25 625 mg (10 billion cell) capsule (Advanced Probiotic) insulin glargine U-300 conc 300 100 unit (0.3333 mL) subcut BID #6 07/11/25 unit/mL (3 mL) subcutaneous pen mL (Toujeo Max U-300 SoloStar) lidocaine 5 % topical patch 1 patch transdermal QAM #10 ea 07/25/25 acetaminophen 500 mg tablet 1,000 mg (2 x 500 mg) PO TID #200 09/20/25 (Tylenol Extra Strength) tabs apixaban 5 mg tablet (Eliquis) 5 mg PO BID #60 tabs 09/20/25 bupropion HCl 300 mg 24 hr tablet, 300 mg PO DAILY #30 tabs 09/20/25 extended release empagliflozin 25 mg tablet 25 mg PO QAM #30 tabs 09/20/25 (Jardiance) furosemide 40 mg tablet 40 mg PO QAM #30 tabs 09/20/25 levothyroxine 25 mcg tablet 25 mcg PO DAILYBB #30 tabs 09/20/25 (Synthroid) metformin 750 mg tablet,extended 750 mg PO DAILY #30 tabs 09/20/25 release 24 hr metoprolol succinate 50 mg 50 mg PO BID #60 tabs 09/20/25 tablet,extended release 24 hr spironolactone 25 mg tablet 25 mg PO DAILY #30 tabs 09/20/25 tamsulosin 0.4 mg capsule 0.4 mg PO QAM #30 caps 09/20/25 Results & Data (ED) Vital Signs Vital Signs - 24 hr 09/23/25 10:35 09/23/25 11:16 09/23/25 11:28 Temperature 36.6 C Temperature Source Oral Pulse Rate 82 79 Pulse Rate [Apical] 84 Respiratory Rate 18 17 Respiratory Effort / Characteristics Non-Labored Spontaneous Non-Labored Spontaneous Respiratory Depth Normal Normal Respiratory Pattern Regular Regular Blood Pressure 152/108 H Blood Pressure [Right Arm] 152/89 H Blood Pressure Mean 122 Blood Pressure Mean [Right Arm] 110 Pulse Oximetry 95 94 Oxygen Delivery Method Room Air Room Air Sepsis Recent Fever Within 48 Hours No Sepsis New/Unexplained Change in Mental Status No Sepsis Action Taken by Nursing No Action Required 09/23/25 11:28 09/23/25 13:53 09/23/25 14:01 Temperature Temperature Source Pulse Rate 79 Pulse Rate [Apical] 79 Respiratory Rate 15 23 Respiratory Effort / Characteristics Non-Labored Spontaneous Respiratory Depth Normal Respiratory Pattern Regular Blood Pressure 156/113 H Blood Pressure [Right Arm] 157/91 H Blood Pressure Mean 134 Blood Pressure Mean [Right Arm] 113 Pulse Oximetry 94 99 99 Oxygen Delivery Method Room Air Room Air Room Air Sepsis Recent Fever Within 48 Hours Sepsis New/Unexplained Change in Mental Status Sepsis Action Taken by Nursing 09/23/25 14:12 09/23/25 14:30 09/23/25 15:00 Temperature Temperature Source Pulse Rate 87 81 89 Pulse Rate [Apical] Respiratory Rate 20 16 17 Respiratory Effort / Characteristics Respiratory Depth Respiratory Pattern Blood Pressure 173/102 H 183/112 H Blood Pressure [Right Arm] Blood Pressure Mean 125 135 Blood Pressure Mean [Right Arm] Pulse Oximetry 97 94 95 Oxygen Delivery Method Room Air Room Air Room Air Sepsis Recent Fever Within 48 Hours Sepsis New/Unexplained Change in Mental Status Sepsis Action Taken by Nursing 09/23/25 15:04 09/23/25 15:15 09/23/25 15:30 Temperature Temperature Source Pulse Rate 76 80 Pulse Rate [Apical] 91 H Respiratory Rate 17 15 15 Respiratory Effort / Characteristics Non-Labored Spontaneous Respiratory Depth Normal Respiratory Pattern Regular Blood Pressure 138/86 133/80 Blood Pressure [Right Arm] 147/116 H Blood Pressure Mean 103 97 Blood Pressure Mean [Right Arm] 126 Pulse Oximetry 98 Oxygen Delivery Method Room Air Sepsis Recent Fever Within 48 Hours Sepsis New/Unexplained Change in Mental Status Sepsis Action Taken by Nursing 09/23/25 15:45 09/23/25 16:00 Temperature Temperature Source Pulse Rate 71 80 Pulse Rate [Apical] Respiratory Rate 23 13 Respiratory Effort / Characteristics Respiratory Depth Respiratory Pattern Blood Pressure 149/86 H 135/89 Blood Pressure [Right Arm] Blood Pressure Mean 107 104 Blood Pressure Mean [Right Arm] Pulse Oximetry 96 95 Oxygen Delivery Method Room Air Room Air Sepsis Recent Fever Within 48 Hours Sepsis New/Unexplained Change in Mental Status Sepsis Action Taken by Nursing Laboratory Data 09/23/25 10:33 09/23/25 10:33 Lab Results 09/23/25 09/23/25 Range/Units 10:33 11:31 WBC 8.41 (4.8-10.8) K/ul RBC 6.08 (4.70-6.10) M/uL Hgb 18.0 (14.0-18.0) g/dL Hct 51.4 (42.0-52.0) % MCV 84.5 (80.0-100.0) fL MCH 29.6 (25.0-34.0) pg MCHC 35.0 (32.0-36.0) g/dL RDW Std Deviation 41.0 (36.4-46.3) fL RDW Coeff of Marc 13.3 (11.5-14.5) % Plt Count 227 (130-400) K/uL MPV 9.8 (9.4-12.4) fL Immature Gran % (Auto) 0.6 % Neut % (Auto) 63.4 % Lymph % (Auto) 24.7 % [place] % (Auto) 7.4 % Eos % (Auto) 2.9 % Baso % (Auto) 1.0 % Neut # (Auto) 5.34 (1.40-6.50) K/uL Lymph # (Auto) 2.08 (1.20-3.40) K/uL [place] # (Auto) 0.62 H (0.11-0.59) K/uL Eos # (Auto) 0.24 (0.00-0.50) K/uL Baso # (Auto) 0.08 (0.00-0.20) K/uL Immature Gran # (Auto) 0.05 (0.01-0.20) K/uL Sodium 134 L (136-145) mmol/L Potassium 4.7 (3.5-5.1) mmol/L Chloride 100 (98-107) mmol/L Carbon Dioxide 27 (21-32) mmol/L Anion Gap 7 (3-11) BUN 17 (6-23) mg/dl Creatinine 0.66 (0.6-1.4) mg/dl Est Cr Clr Drug Dosing 148.8 ml/min eGFR 105.39 BUN/Creatinine Ratio 25.8 H (10-20) Glucose 264 H (70-99(Fasting)) mg/dl Calcium 9.0 (8.6-10.3) mg/dl Total Bilirubin 0.6 (0.2-1.0) mg/dl AST 19 (13-39) U/L ALT 20 (7-52) U/L Alkaline Phosphatase 76 (34-104) U/L Total Protein 6.7 (6.0-8.3) gm/dl Albumin 3.7 (3.4-5.0) gm/dl Globulin 3.0 (2.5-4.0) gm/dl Albumin/Globulin Ratio 1.2 (0.9-2) Lipase 175 H (11-82) U/L Urine Color Yellow Urine Appearance Clear (Clear) Urine pH 5.0 (4.5-7.5) Ur Specific [place] 1.025 (1.000-1.030) Urine Protein Negative (Negative) Urine Glucose (UA) 3+ H (Negative) Urine Ketones Negative (Negative) Urine Blood Negative (Negative) Urine Nitrite Negative (Negative) Urine Bilirubin Negative (Negative) Urine Urobilinogen Negative (Negative) Ur Leukocyte Esterase Negative (Negative) Urine Comment SARS-CoV-2 (PCR) NEGATIVE (Negative) Influenza Type A (PCR) Negative (Neg) Influenza Type B (PCR) Negative (Neg) RSV (RT-PCR) Negative (Neg) Administered Medications Discontinued Medications Sodium Chloride (Nss) 1,000 mls @ 999 mls/hr IV .Q1H1M MULU Stop: 09/23/25 12:45 Last Infusion: 09/23/25 13:55 Dose: Infused Documented By: [facility] Admin: 09/23/25 12:11 Dose: 999 mls/hr Documented By: rod Infusion: 09/23/25 12:10 Dose: Infused Documented By: rod Admin: 09/23/25 10:49 Dose: 999 mls/hr Documented By: SHERYL Ceftriaxone Sodium (Rocephin) 2,000 mg in 50 mls @ 100 mls/hr IV NOW STA Stop: 09/23/25 11:09 Last Infusion: 09/23/25 11:55 Dose: Infused Documented By: mocaron Admin: 09/23/25 11:07 Dose: 100 mls/hr Documented By: rod Imaging Data Radiologist's Impression: Abdomen/Pelvis CT 09/23/25 11:46 Exam: The abdomen pelvis with contrast. Exam reason: Questionable pancreatitis. Comparison: 08/31/2025. Technique: Multiple transaxial images of the abdomen pelvis were obtained following the intravenous administration of contrast. Findings: The visualized portions of the lung bases are unremarkable. No focal abnormalities noted within the liver or spleen. There is a 1.9 cm low-density lesion again seen on the medial limb of the right adrenal gland. The left adrenal gland and pancreas are unremarkable.. The gallbladder is within normal limits there is normal enhancement of the kidneys bilaterally. There is no evidence of obstructing stone or hydronephrosis. There is redemonstration of the Right paramidline ventral fat-containing hernia The bowel loops are of normal caliber. There is scattered diverticular outpouchings noted along the sigmoid colon and descending colon. The bladder is unremarkable. There is no free air, free fluid or inflammatory change. The appendix is normal in course and caliber no acute bony adenopathy is identified. Impression: 1. No CT evidence for active pancreatitis. 2. 1.9 cm low-density lesion on the right adrenal gland is unchanged from the previous exam. 3. Mild sigmoid colon and descending colon diverticulosis. Electronically signed by Yash Urbina 09-23-2025 12:55 PM Discharge Plan Visit Data Chief Complaint: Diarrhea Stated Complaint: Diarrhea ED Provider: Ahmet Brown Discharge Problem: Weakness, Acute hyponatremia, Elevated lipase Patient Disposition: Admitted As Inpatient Condition: Fair Discharge Instructions Interventions: ED Discharge Assessment Last Done: 09/23/25 16:14 Forms Stand Alone Forms: My [employer] Prescriptions Prescriptions: No Action Multiple Vitamin-Minerals Tablet 1 tab PO DAILY Patient Comments: 08/29- otc unable to verify lisinopril 20 mg tablet 20 mg PO DAILY Hold Instructions: Resume on 06/15/25. until seen by primary care doctor sertraline 100 mg tablet 100 mg PO QAM albuterol sulfate 90 mcg/actuation HFA aerosol inhaler 90 mcg INHALATION Q4H PRN (Reason: Wheezing) nitroglycerin 0.4 mg Tablet, Sublingual 0.4 mg sublingual DIRECTED MDD 3 PRN (Reason: Chest Pain) Advanced Probiotic 625 mg (10 billion cell) Capsule 1 cap PO DAILY Qty: 30 0RF Patient Comments: y insulin glargine U-300 conc [Toujeo Max U-300 SoloStar] 300 unit/mL (3 mL) insulin pen 100 unit SUBCUT BID Qty: 6 1RF lidocaine 5 % Adhesive Patch,Medicated 1 patch transdermal QAM Qty: 10 0RF Rx Instructions: Apply one patch daily for 12 hours and then remove for 12 hours furosemide 40 mg Tablet 40 mg PO QAM Qty: 30 0RF acetaminophen [Tylenol Extra Strength] 500 mg Tablet 1,000 mg PO TID Qty: 200 0RF metoprolol succinate 50 mg tablet extended release 24 hr 50 mg PO BID Qty: 60 0RF Patient Comments: 127-per pt he still takes medication spironolactone 25 mg Tablet 25 mg PO DAILY Qty: 30 0RF Patient Comments: 09/16-per pt he still takes medication tamsulosin 0.4 mg capsule 0.4 mg PO QAM Qty: 30 0RF metformin 750 mg tablet extended release 24 hr 750 mg PO DAILY Qty: 30 0RF Eliquis 5 mg Tablet 5 mg PO BID Qty: 60 0RF Jardiance 25 mg tablet 25 mg PO QAM Qty: 30 0RF levothyroxine [Synthroid] 25 mcg Tablet 25 mcg PO DAILYBB Qty: 30 0RF bupropion HCl 300 mg tablet extended release 24 hr 300 mg PO DAILY Qty: 30 0RF fluticasone furoate [Arnuity Ellipta] 100 mcg/actuation blister with device 100 mcg INHALATION DAILY insulin aspart U-100 [Novolog FlexPen U-100 Insulin] 100 unit/mL (3 mL) insulin pen 20 - 60 unit SUBCUT TIDWMEAL Rx Instructions: 60u with breakfast, 20u w/lunch, 60u with supper aspirin 81 mg Tablet,Chewable 81 mg PO DAILY Patient Comments: cyanocobalamin (vitamin B-12) [Vitamin B-12] 1,000 mcg tablet extended release 1,000 mcg PO DAILY Patient Comments: 08/29- otc unable to verify Referrals Referrals: Willam Fofana DO [Primary Care Provider] -
[2025-09-23] MEDS: SODIUM CHLORIDE 0.9% 1,000 ML IV SCH (10:49)
[2025-09-23] MEDS: cefTRIAXone SODIUM 2,000 MG/50 ML BAG IV STA (11:07)
[2025-09-23 11:12] LABS: Hematocrit (blood only) 51.4 % (42.0-52.0); Hemoglobin 18.0 g/dL (14.0-18.0); Immature Granulocytes # (auto) 0.05 K/uL (0.01-0.20); Immature Granulocytes % (auto) 0.6 %; Mean Corpuscular Hemoglobin 29.6 pg (25.0-34.0); Mean Corpuscular Volume 84.5 fL (80.0-100.0); Platelet Count 227 K/uL (130-400); RDW Standard Deviation 41.0 fL (36.4-46.3); Red Blood Count 6.08 M/uL (4.70-6.10); White Blood Count 8.41 K/ul (4.8-10.8)
[2025-09-23 11:31] LABS: Alanine Aminotransferase 20.0 U/L (7-52); Albumin Globulin Ratio 1.2 (0.9-2); Albumin Level 3.7 gm/dl (3.4-5.0); Alkaline Phosphatase 76.0 U/L (34-104); Anion Gap 7.0 (3-11); Bilirubin,Total 0.6 mg/dl (0.2-1.0); Blood Urea Nitrogen 17.0 mg/dl (6-23); Calcium 9.0 mg/dl (8.6-10.3); Carbon Dioxide 27.0 mmol/L (21-32); Chloride 100.0 mmol/L (98-107); Creatinine Clr Calc Pharmacy 148.8 ml/min; Globulin 3.0 gm/dl (2.5-4.0); Glucose 264.0 mg/dl (70-99(Fasting)); Lipase 175.0 U/L (11-82); Potassium 4.7 mmol/L (3.5-5.1); Sodium 134.0 mmol/L (136-145); Total Protein 6.7 gm/dl (6.0-8.3)
[2025-09-23 11:50] LABS: Appearance Urine Clear (Clear); Glucose Urine UA 3+ (Negative)
[2025-09-23 11:54] LABS: Influenza A virus by PCR Negative (Neg); Influenza B virus by PCR Negative (Neg); SARS CoV2 RNA(COVID-19) Ceph NEGATIVE (Negative)
--- NOTE | 2025-09-23 12:56 | CT Scan Report ---
Exam: The abdomen pelvis with contrast. Exam reason: Questionable pancreatitis. Comparison: 08/31/2025. Technique: Multiple transaxial images of the abdomen pelvis were obtained following the intravenous administration of contrast. Findings: The visualized portions of the lung bases are unremarkable. No focal abnormalities noted within the liver or spleen. There is a 1.9 cm low-density lesion again seen on the medial limb of the right adrenal gland. The left adrenal gland and pancreas are unremarkable.. The gallbladder is within normal limits there is normal enhancement of the kidneys bilaterally. There is no evidence of obstructing stone or hydronephrosis. There is redemonstration of the Right paramidline ventral fat-containing hernia The bowel loops are of normal caliber. There is scattered diverticular outpouchings noted along the sigmoid colon and descending colon. The bladder is unremarkable. There is no free air, free fluid or inflammatory change. The appendix is normal in course and caliber no acute bony adenopathy is identified. Impression: 1. No CT evidence for active pancreatitis. 2. 1.9 cm low-density lesion on the right adrenal gland is unchanged from the previous exam. 3. Mild sigmoid colon and descending colon diverticulosis. Electronically signed by Yash Urbina 09-23-2025 12:55 PM
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
[2025-09-23] MEDS ORDERED: ALBUTEROL HFA 8 GM INHALER INH PRN (16:32)
[2025-09-23] MEDS ORDERED: GLUCOSE 40% GEL 15 GM TUBE PO PRN (16:32)
[2025-09-23] MEDS ORDERED: ACETAMINOPHEN 325 MG TAB PO PRN (16:32)
[2025-09-23] MEDS ORDERED: CARBOHYDRATES FOR HYPOGLYCEMIA PO PRN (16:32)
[2025-09-23] MEDS ORDERED: PHARMACY GLYCEMIC MGMT CONSULT PRN (16:32)
[2025-09-23] MEDS ORDERED: DEXTROSE 50% 50 ML SYRINGE IV PRN (16:32)
[2025-09-23] MEDS ORDERED: GLUCOSE 10 TAB/TUBE PO PRN (16:32)
[2025-09-23] MEDS ORDERED: GLUCAGON FOR INJ 1 MG VIAL SQ PRN (16:32)
[2025-09-23] MEDS ORDERED: POLYETHYLENE (MIRALAX) 17 GM PACK PO PRN (16:32)
--- NOTE | 2025-09-23 16:50 | Pharmacy Report ---
Pharmacy Glycemic Short Note 2 - Date of Service September 23, 2025 - Glycemic Short BSG Results (Last 24 hours): 09/23/25 09/23/25 10:33 16:37 Glucose 264 H POC Glucose 203 H OUTPATIENT ANTIDIABETIC REGIMEN: * Jardiance 25mg PO daily (CHF + DM) * Metformin 750mg PO daily * Toujeo (insulin glargine U-300) 100 units SC BID * A1c 10.9% 08/30/25 ASSESSMENT: * 65 yo M, PMH T2DM, CHF, methamphetamine use, presents with LLE Cellulitis & weakness, started on IV Ceftriaxone. Non-compliance with DM medications at home. * Insulin glargine U-100 allergy, NPH used for basal while inpatient. * Patient known to pharmacy glycemic service, recent admission last week, will begin with basal bolus SC insulin at this time. PLAN FOR INPATIENT GLYCEMIC CONTROL: * Hold outpatient diabetes medications * Basal insulin * NPH 10 units SQ x 1 now * NPH 30 units SQ q AM * Bolus insulin * NovoLog per scale ACHS or Q6hrs while NPO * Goal Range: Low 110 mg/dL - High 140 mg/dL * Correction Factor: 15 mg/dL/unit * Nutritional / Prandial insulin per carb ratio of 1 unit per 4 grams CHO consumed
[2025-09-23] MEDS: INSULIN ASPART PER UNIT CHARGE SC SCH (17:18)
[2025-09-23] MEDS: INSULIN HUMAN NPH SC ONE (17:18)
[2025-09-23] MEDS ORDERED: DICLOFENAC SOD 1% GEL 100 GM TUBE EXT PRN (19:43)
[2025-09-23] MEDS ORDERED: NON-FORMULARY MEDICATION (Insulin Glargine U-300 Conc [Toujeo Max U-300 Solostar] 300 unit SQ SCH (21:00)
[2025-09-23] MEDS: ACETAMINOPHEN 500 MG TAB PO SCH (21:04)
[2025-09-23] MEDS: APIXABAN 5 MG TABLET PO SCH (21:06)
[2025-09-23] MEDS: REMOVE LIDODERM PATCH SCH (21:07)
[2025-09-23] MEDS: METOPROLOL SUCC 50MG EXT REL TAB PO SCH (21:07)
[2025-09-24 06:17] LABS: Hematocrit (blood only) 49.1 % (42.0-52.0); Hemoglobin 17.0 g/dL (14.0-18.0); Immature Granulocytes # (auto) 0.04 K/uL (0.01-0.20); Immature Granulocytes % (auto) 0.5 %; Mean Corpuscular Hemoglobin 29.5 pg (25.0-34.0); Mean Corpuscular Volume 85.2 fL (80.0-100.0); Platelet Count 210 K/uL (130-400); RDW Standard Deviation 40.7 fL (36.4-46.3); Red Blood Count 5.76 M/uL (4.70-6.10); White Blood Count 8.11 K/ul (4.8-10.8)
[2025-09-24] MEDS: LEVOTHYROXINE SODIUM 25 MCG TABLET PO SCH (06:25)
[2025-09-24 06:35] LABS: Blood Urea Nitrogen 16.0 mg/dl (6-23); Calcium 8.9 mg/dl (8.6-10.3); Carbon Dioxide 26.0 mmol/L (21-32); Chloride 107.0 mmol/L (98-107); Creatinine Clr Calc Pharmacy 136.4 ml/min; Glucose 124.0 mg/dl (70-99(Fasting)); Magnesium 2.0 mg/dl (1.7-2.4); Potassium 4.7 mmol/L (3.5-5.1)
[2025-09-24 06:44] LABS: Anion Gap 5.0 (3-11); Sodium 138.0 mmol/L (136-145)
[2025-09-24] MEDS: LIDOCAINE 5% 1 PATCH TD SCH (08:03)
[2025-09-24 08:05] LABS: Hemoglobin A1C 10.9 % (4.5-5.6)
[2025-09-24] MEDS: ASPIRIN 81 MG CHEW PO SCH (08:09)
[2025-09-24] MEDS: CYANOCOBALAMIN (B-12) 500 MCG TABLET PO SCH (08:10)
[2025-09-24] MEDS: SPIRONOLACTONE 25 MG TAB PO SCH (08:10)
[2025-09-24] MEDS: EMPAGLIFLOZIN 25 MG TAB PO SCH (08:10)
[2025-09-24] MEDS: ADVANCED PROBIOTIC 625 MG CAPSULE PO SCH (08:10)
[2025-09-24] MEDS: FUROSEMIDE 40 MG TAB PO SCH (08:10)
[2025-09-24] MEDS: TAMSULOSIN HCL 0.4 MG CAP PO SCH (08:10)
[2025-09-24] MEDS: CEROVITE ADV FORMULA TAB PO SCH (08:10)
[2025-09-24] MEDS: SERTRALINE HCL 100 MG TABLET PO SCH (08:10)
[2025-09-24] MEDS: FLUTICASONE FUROATE 100MCG 14 PUFFS/INHALER INH SCH (08:11)
[2025-09-24] MEDS: INSULIN HUMAN NPH SC SCH (08:14)
[2025-09-24] MEDS: NITROGLYCERIN SL 0.4 MG/TAB TAB SL PRN (10:01)
[2025-09-24] MEDS: cefTRIAXone SODIUM 2,000 MG/50 ML BAG IV SCH (10:49)
--- NOTE | 2025-09-24 10:56 | XRay Report ---
XR chest 1V portable CLINICAL HISTORY: Chest pain. COMPARISON STUDY: Chest CT April 13, 2025. Chest radiograph September 16, 2025. FINDINGS: Lung volumes are normal. Minimal left basilar opacity favors atelectasis. There is no pneum othorax or pleural effusion. Cardiomegaly is unchanged. Mediastinal contours are normal. There is no evidence for pulmonary edema. IMPRESSION: 1. No acute cardiopulmonary findings. 2. Minimal left basilar opacity which favors atelectasis. ACT 112: Negative or not required by law. Electronically signed by: Gualberto Buitrago M.D. 09/24/2025 10:54 AM
[2025-09-24] MEDS: DOXYCYCLINE HYCLATE 100 MG CAP PO SCH (13:42)
--- NOTE | 2025-09-24 14:09 | XRay Report ---
SINGLE VIEW PELVIS; 2 VIEWS LEFT HIP CLINICAL HISTORY: Left hip pain. FINDINGS: An AP view of the pelvis is obtained with AP and frog-leg views of the left hip. Comparison is made to study dated 09/17/2025 and correlated with pelvic CT dated 09/23/2025. The skeletal struct ures are osteopenic. There is no evidence of acute fracture involving the hips or bony pelvis. Modera te arthritic change and joint space narrowing is seen in the hips. Degenerative change is noted in th e sacroiliac joints with partial fusion on the right. Lumbosacral spondylosis is partially visualized . The overlying soft tissues are normal as imaged. There is atherosclerotic calcification of the femo ral arteries. IMPRESSION: No acute bony abnormality is identified. Electronically signed by: Braulio Hopkins M.D. 09/24/2025 2:08 PM
--- NOTE | 2025-09-24 15:03 | Orthopedic Consultation ---
Date of Consultation September 24, 2025 Assessment & Plan (1) Osteoarthritis of left hip: 1. Left hip osteoarthritis - I discussed with the patient and reviewed his imaging. He has mild to moderate joint space narrowing subchondral cysts and marginal osteophyte formation consistent with osteoarthritis of the left hip. I do not appreciate any signs of an acute septic arthritis. His ESR is 17 and CRP is less than 0.5 both of which are normal today. He does not have an elevated white count. He has no pain with passive motion of the left hip today. I believe that his pain is most likely secondary to his osteoarthritis being flared up and his underlying medical status causing weakness grossly. I recommend that he undergo conservative management for his pain with medications. X-rays do not show any fracture or dislocation. - Recommend multimodal pain control, minimize narcotic use. - Would benefit from monitoring for signs or symptoms of infection given his history of drug use, poorly controlled diabetes, and lower extremity cellulitis. Currently I have no concern for left hip septic arthritis. - May weight-bear as tolerated left lower extremity with assistive device I recommend use of a walker. - Recommend physical therapy and Occupational Therapy evaluations when medically able. - Ice left hip - Does have erythema about the lower leg consistent with cellulitis, he is currently on Rocephin. Recommend this to be continued and managed per hospitalist. -Recommend monitoring for pressure ulcers, and preventative measures for this. - Currently no acute surgical intervention necessary. Will continue to monitor response to medication and pain control. 2. Other medical comorbidities: DM 2, HTN, A-fib, meth amphetamine use, HFpEF, weakness, cellulitis - Continue Rocephin for cellulitis per hospitalist - Poorly controlled diabetic, recommend diabetes education, would benefit from improved blood glucose control. Certainly is at risk for multiple complications from diabetes. - Management per hospitalist, will continue to monitor. History of Present Illness Reason for Consultation: Left hip pain Attending Physician: Zak Denny MD History of Present Illness This patient is a 65-year-old male significant past medical history of multiple medical comorbidities including type 2 diabetes, diabetic neuropathy, heart failure with preserved ejection fraction, A-fib, HTN, peripheral vascular disease, history of hepatitis C, history of heroin abuse, history of meth use, depression. He was admitted to the hospital on 09/23/2025 with complaint of weakness, cellulitis of left lower extremity, left hip pain. He was recently hospitalized for heart failure he was discharged to home on 09/20/2025. He was home for about 2 days he states that he came back due to weakness and left hip pain. At the time my evaluation complains of pain in his left hip which he rates at 8/10 describes it as a constant pain worse with movement better with rest. Has been having ongoing hip pain for about 2 weeks. He states that he fell in his kitchen about 1-1/2 weeks ago onto his buttocks. States that the pain feels like there is a screwdriver being driven into his left hip. Describes the pain as being located in his groin. Denies any numbness or tingling of his left lower extremity. He is diabetic states his blood sugars typically run in the 200-500 range. 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 Does have a history of drug abuse he states that he smoked methamphetamine about 2 weeks ago. Denies any fevers or chills. PMH: DM 2, neuropathy, HFpEF, A-fib, HTN, PVD, hep C, BPH, muscular weakness, history of heroin abuse, history of meth use, ambulatory dysfunction, anxiety, depression. PSH: Colonoscopy, paracentesis, EGD, scalp LAC repair, vein ablation SH: Denies tobacco, occasional alcohol use, states used methamphetamine 2 weeks ago. 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 Typically independent without assistive device. Allergies Allergy/AdvReac Type Severity Reaction Status Date / Time shellfish derived Allergy Severe Swelling Verified 09/12/25 13:05 amoxicillin Allergy Intermediate HIVES Verified 09/12/25 13:05 clavulanic acid Allergy Intermediate HIVES Verified 09/12/25 13:05 permethrin Allergy Intermediate swelling Verified 09/12/25 13:05 shrimp Allergy Intermediate SWELLS Verified 09/12/25 13:05 sulfamethoxazole Allergy Unknown CAN'T Verified 09/12/25 13:05 [From Bactrim] REMEMBER trimethoprim [From Bactrim] Allergy Unknown CAN'T Verified 09/12/25 13:05 REMEMBER insulin glargine AdvReac Severe CHF PER Verified 09/12/25 13:05 [From Lantus U-100 Insulin] [facility] Home Medications Medication Instructions Recorded Confirmed Type multivitamin with minerals 1 tab PO DAILY 09/21/22 09/23/25 History (Multiple Vitamin-Minerals tablet) lisinopril 20 mg tablet 20 mg PO DAILY 10/10/23 09/23/25 History sertraline 100 mg tablet 100 mg PO QAM 10/10/23 09/23/25 History albuterol sulfate 90 mcg/actuation 90 mcg inhalation Q4H PRN Wheezing 06/06/24 09/23/25 History aerosol inhaler fluticasone furoate 100 100 mcg inhalation DAILY 08/05/24 09/23/25 History mcg/actuation blister powder for inhalation (Arnuity Ellipta) insulin aspart U-100 100 unit/mL 20 - 60 unit subcut TIDWMEAL 12/15/24 09/23/25 History (3 mL) subcutaneous pen (Novolog FlexPen U-100 Insulin aspart) nitroglycerin 0.4 mg sublingual 0.4 mg sublingual DIRECTED PRN 02/28/25 09/23/25 History tablet Chest Pain L.acidop,casei,lactis,rham-B.lact,guanakito 1 cap PO DAILY #30 caps 03/09/25 09/23/25 Rx 625 mg (10 billion cell) capsule (Advanced Probiotic) aspirin 81 mg chewable tablet 81 mg PO DAILY 06/02/25 09/23/25 History cyanocobalamin (vitamin B-12) 1,000 mcg PO DAILY 06/27/25 09/23/25 History 1,000 mcg tablet,extended release (Vitamin B-12 ER) insulin glargine U-300 conc 300 100 unit (0.3333 mL) subcut BID #6 07/11/25 09/23/25 Rx unit/mL (3 mL) subcutaneous pen mL (Toujeo Max U-300 SoloStar) lidocaine 5 % topical patch 1 patch transdermal QAM #10 ea 07/25/25 09/23/25 Rx acetaminophen 500 mg tablet 1,000 mg (2 x 500 mg) PO TID #200 09/20/25 09/23/25 Rx (Tylenol Extra Strength) tabs apixaban 5 mg tablet (Eliquis) 5 mg PO BID #60 tabs 09/20/25 09/23/25 Rx bupropion HCl 300 mg 24 hr tablet, 300 mg PO DAILY #30 tabs 09/20/25 09/23/25 Rx extended release empagliflozin 25 mg tablet 25 mg PO QAM #30 tabs 09/20/25 09/23/25 Rx (Jardiance) furosemide 40 mg tablet 40 mg PO QAM #30 tabs 09/20/25 09/23/25 Rx levothyroxine 25 mcg tablet 25 mcg PO DAILYBB #30 tabs 09/20/25 09/23/25 Rx (Synthroid) metformin 750 mg tablet,extended 750 mg PO DAILY #30 tabs 09/20/25 09/23/25 Rx release 24 hr metoprolol succinate 50 mg 50 mg PO BID #60 tabs 09/20/25 09/23/25 Rx tablet,extended release 24 hr spironolactone 25 mg tablet 25 mg PO DAILY #30 tabs 09/20/25 09/23/25 Rx tamsulosin 0.4 mg capsule 0.4 mg PO QAM #30 caps 09/20/25 09/23/25 Rx Patient History Medical History Coronary artery disease Chronic heart failure with preserved ejection fraction (HFpEF) Venous stasis ulcer of right lower leg with edema of right lower leg Hyperglycemia Unable to care for self Noncompliance with medications Noncompliance w/medication treatment due to intermit use of medication H/O drug abuse Colon polyp "TVA polyp on colonoscopy 09/2014" H/O toxoplasmosis H/O TB (tuberculosis) Closed head injury Peripheral neuropathy Acute dehydration Dysequilibrium Hepatitis C Diabetes mellitus, type 2 Depression Anxiety Hypertension Surgical History S/P cardiac cath "for abnormal stress test. cath 03/18/2015-essentially normal coronaries with no obstructive disease " H/O colonoscopy "11/2015- diverticulosis" History of umbilical hernia repair x2 History of tooth extraction History of wisdom tooth extraction Family History Mother Family history of diabetes mellitus Father Family history of diabetes mellitus Other No family history of adverse response to anesthesia Social History Smoking Status: Never smoker Tobacco Type: Cigarettes and Smokeless Tobacco (Dip or Chew) Second Hand Exposure: No; Do You Dip or Chew Tobacco: No; Hx Alcohol Use: Yes Alcohol type: wine and hard liquor Alcohol Intake Frequency: Monthly or Less Hx Substance Use: Yes Non-Prescribed Medications: Methamphetamines Last Used Substance: Days (ago) Last Used Substance Other:: 2 weeks ago Substance Use Type Other:: MDMA, speed Preferred Language: Turkish Communication Ability: Effective Visual Impairment: Severely Limited Hearing Ability: Normal 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 Afebrile vital signs stable. Musculoskeletal: Left lower extremity: - Erythema noted about the distal lower leg. Skin changes consistent with peripheral vascular disease. 3 small scabs noted on the medial aspect of the distal lower leg. There are no open wounds about the foot, heel, or lower leg. There is no erythema or edema noted about the left hip. No fluid collections about the left hip. - Nontender to palpation about the anter ior, lateral, or posterior left hip. Nontender about the left knee ankle or foot. Nontender over the greater trochanter. - Patient is able to actively flex the h ip to 100 degrees he can actively internally and external rotate the hip with no pain. Passively I can flex his left hip to 100 degrees internal rotation 20 degrees, external rotation 30 degrees. - 5/5 hip flexion strength 5/5 hip abduc tion strength 5/5 hip adduction strength. 5/5 knee flexion strength 5/5 knee extension strength, 5/5 ankle plantarflexion and dorsiflexion strength. -Patient is able to perform active strai ght leg raise against gravity and resistance without pain in the hip. -No pain with passive hip range of motio n including repeated flexion and extension and rotation. -Negative logroll, negative Stinchfield, negative FADIR. -Sensation is diminished to light touch throughout the toes including in the first webspace and plantar and dorsal aspects of the toes. Sensation is intact to light touch about the heel and lower leg. - DP and PT pulses are palpable Results & Data Vital Signs (Past 12 Hours) Vital Signs Temp Pulse Resp BP BP Pulse Ox O2 Del Method 09/24/25 10:46 36.4 C L 64 18 131/81 97 Room Air 09/24/25 07:24 36.8 C 74 18 129/67 95 Room Air 09/24/25 07:20 Room Air Laboratory Results 09/24/25 09/24/25 09/24/25 13:07 11:15 10:29 WBC RBC Hgb Hct MCV MCH MCHC RDW Std Deviation RDW Coeff of Marc Plt Count MPV Immature Gran % (Auto) Neut % (Auto) Lymph % (Auto) [place] % (Auto) Eos % (Auto) Baso % (Auto) Neut # (Auto) Lymph # (Auto) [place] # (Auto) Eos # (Auto) Baso # (Auto) Immature Gran # (Auto) ESR Sodium Potassium Chloride Carbon Dioxide Anion Gap BUN Creatinine Est Cr Clr Drug Dosing eGFR BUN/Creatinine Ratio Glucose POC Glucose 152 H Estimat Average Glucose Hemoglobin A1c Calcium Magnesium Troponin I High Sens 11.1 11.3 C-Reactive Protein < 0.50 09/24/25 09/24/25 09/23/25 07:27 05:25 20:42 WBC 8.11 RBC 5.76 Hgb 17.0 Hct 49.1 MCV 85.2 MCH 29.5 MCHC 34.6 RDW Std Deviation 40.7 RDW Coeff of Marc 13.2 Plt Count 210 MPV 10.4 Immature Gran % (Auto) 0.5 Neut % (Auto) 44.8 Lymph % (Auto) 42.4 [place] % (Auto) 7.6 Eos % (Auto) 3.3 Baso % (Auto) 1.4 Neut # (Auto) 3.63 Lymph # (Auto) 3.44 H [place] # (Auto) 0.62 H Eos # (Auto) 0.27 Baso # (Auto) 0.11 Immature Gran # (Auto) 0.04 ESR 17 Sodium 138 Potassium 4.7 Chloride 107 Carbon Dioxide 26 Anion Gap 5 BUN 16 Creatinine 0.72 Est Cr Clr Drug Dosing 136.4 eGFR 102.66 BUN/Creatinine Ratio 22.2 H Glucose 124 H POC Glucose 136 H 174 H Estimat Average Glucose 266 Hemoglobin A1c 10.9 H Calcium 8.9 Magnesium 2.0 Troponin I High Sens C-Reactive Protein 09/23/25 16:37 WBC RBC Hgb Hct MCV MCH MCHC RDW Std Deviation RDW Coeff of Marc Plt Count MPV Immature Gran % (Auto) Neut % (Auto) Lymph % (Auto) [place] % (Auto) Eos % (Auto) Baso % (Auto) Neut # (Auto) Lymph # (Auto) [place] # (Auto) Eos # (Auto) Baso # (Auto) Immature Gran # (Auto) ESR Sodium Potassium Chloride Carbon Dioxide Anion Gap BUN Creatinine Est Cr Clr Drug Dosing eGFR BUN/Creatinine Ratio Glucose POC Glucose 203 H Estimat Average Glucose Hemoglobin A1c Calcium Magnesium Troponin I High Sens C-Reactive Protein Diagnostic Findings AP pelvis, AP and lateral x-rays of the left hip obtained today 09/24/2025 independently reviewed interpreted by myself demonstrate no acute fracture or dislocation. Multiple subchondral cyst noted about the femoral head and superior acetabular surface. Cystic lesion noted in the superior acetabular region. Mild to moderate joint space narrowing appreciated about the hip joint. Small marginal osteophytes noted about the inferior aspect of the femoral head. No fracture or dislocation is seen. CT of the abdomen pelvis which was obtained 09/23/2025 was reviewed there is a cystic appearing lesion noted in the superior acetabular region. Cystic appearing lesion is visible on multiple CTs of the pelvis dating back to at least 2019. Chest X-Ray 09/24/25 09:38 XR chest 1V portable CLINICAL HISTORY: Chest pain. COMPARISON STUDY: Chest CT April 13, 2025. Chest radiograph September 16, 2025. FINDINGS: Lung volumes are normal. Minimal left basilar opacity favors atelectasis. There is no pneumothorax or pleural effusion. Cardiomegaly is unchanged. Mediastinal contours are normal. There is no evidence for pulmonary edema. IMPRESSION: 1. No acute cardiopulmonary findings. 2. Minimal left basilar opacity which favors atelectasis. ACT 112: Negative or not required by law. Electronically signed by: Gualberto Buitrago M.D. 09/24/2025 10:54 AM Hip/Pelvis X-Ray 09/24/25 12:33 SINGLE VIEW PELVIS; 2 VIEWS LEFT HIP CLINICAL HISTORY: Left hip pain. FINDINGS: An AP view of the pelvis is obtained with AP and frog-leg views of the left hip. Comparison is made to study dated 09/17/2025 and correlated with pelvic CT dated 09/23/2025. The skeletal structures are osteopenic. There is no evidence of acute fracture involving the hips or bony pelvis. Moderate arthritic change and joint space narrowing is seen in the hips. Degenerative change is noted in the sacroiliac joints with partial fusion on the right. Lumbosacral spondylosis is partially visualized. The overlying soft tissues are normal as imaged. There is atherosclerotic calcification of the femoral arteries. IMPRESSION: No acute bony abnormality is identified. Electronically signed by: Braulio Hopkins M.D. 09/24/2025 2:08 PM (1) Osteoarthritis of left hip Osteoarthritis type: primary Qualified Code(s): M16.12 - Unilateral primary osteoarthritis, left hip
--- NOTE | 2025-09-24 15:03 | XCELERA ---
[id number]
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
--- NOTE | 2025-09-25 05:35 | Communication Note ---
Date of Service: September 25, 2025
[2025-09-25] MEDS: KETOROLAC TROMETHAMINE 15 MG/ML VIAL IV ONE (05:52)
[2025-09-25 06:21] LABS: Anion Gap 7.0 (3-11); Blood Urea Nitrogen 20.0 mg/dl (6-23); Calcium 8.8 mg/dl (8.6-10.3); Carbon Dioxide 26.0 mmol/L (21-32); Chloride 105.0 mmol/L (98-107); Cholesterol 183.0 mg/dl (0-200); Creatinine Clr Calc Pharmacy 144.4 ml/min; Glucose 74.0 mg/dl (70-99(Fasting)); HDL Cholesterol 44.0 mg/dl; Potassium 4.1 mmol/L (3.5-5.1); Sodium 138.0 mmol/L (136-145); Triglycerides 168.0 mg/dl (0-150)
[2025-09-25] MEDS: INSULIN HUMAN NPH SC SCH (08:29)
--- NOTE | 2025-09-25 08:32 | Pharmacy Report ---
Pharmacy Glycemic Short Note 2 - Date of Service September 25, 2025 - Glycemic Short BSG Results (Last 24 hours): 09/24/25 09/24/25 09/24/25 11:15 16:33 20:25 Glucose POC Glucose 152 H 78 140 H 09/25/25 09/25/25 05:35 07:25 Glucose 74 POC Glucose 78 OUTPATIENT ANTIDIABETIC REGIMEN: * Jardiance 25mg PO daily (CHF + DM) * Metformin 750mg PO daily * Toujeo (insulin glargine U-300) 100 units SC BID HbA1c: 10.9% (08/30/25) ASSESSMENT: 09/25/25: * Blood sugars well-controlled yesterday, ranging 78-152 mg/dL with fasting blood sugar of 78 mg/dL this morning * Given borderline low blood sugars yesterday and this morning, will decrease NPH dose and loosen Novolog parameters 09/23/25: * 65 yo M, PMH T2DM, CHF, methamphetamine use, presents with LLE Cellulitis & weakness, started on IV Ceftriaxone. Non-compliance with DM medications at home. * Insulin glargine U-100 allergy, NPH used for basal while inpatient. * Patient known to pharmacy glycemic service, recent admission last week, will begin with basal bolus SC insulin at this time. PLAN FOR INPATIENT GLYCEMIC CONTROL: * Empagliflozin 25 mg PO daily * Basal insulin * NPH 26 units SC qAM * Bolus insulin * NovoLog per scale ACHS or Q6hrs while NPO * Goal Range: Low 110 mg/dL - High 140 mg/dL * Correction Factor: 15 mg/dL/unit * Nutritional / Prandial insulin per carb ratio of 1 unit per 5 grams CHO consumed
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
[2025-09-26 06:14] LABS: Hematocrit (blood only) 48.7 % (42.0-52.0); Hemoglobin 16.4 g/dL (14.0-18.0); Mean Corpuscular Hemoglobin 29.1 pg (25.0-34.0); Mean Corpuscular Volume 86.5 fL (80.0-100.0); Platelet Count 214 K/uL (130-400); RDW Standard Deviation 42.2 fL (36.4-46.3); Red Blood Count 5.63 M/uL (4.70-6.10); White Blood Count 9.24 K/ul (4.8-10.8)
[2025-09-26 06:35] LABS: Anion Gap 5.0 (3-11); Blood Urea Nitrogen 28.0 mg/dl (6-23); Calcium 8.6 mg/dl (8.6-10.3); Carbon Dioxide 28.0 mmol/L (21-32); Chloride 106.0 mmol/L (98-107); Creatinine Clr Calc Pharmacy 110.3 ml/min; Glucose 161.0 mg/dl (70-99(Fasting)); Potassium 4.8 mmol/L (3.5-5.1); Sodium 139.0 mmol/L (136-145)
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
--- NOTE | 2025-09-26 09:57 | Orthopedic Progress Note ---
<Statement entered by Bruce Campos DO - 09/26/25 13:41> I personally saw and evaluated the patient today. Subjective: Patient is resting comfortably in bed. He is sleeping on my arrival. Awakens easily to verbal stimulus. Reports that his left hip is not hurting him. He is having some discomfort with his lower leg. He denies any chest pain or shortness of breath. Physical exam: Left hip exam: - Patient actively flexes the hip to 100 degrees tolerates passive external rotation 45 degrees and internal rotation 20 degrees about the left hip without any pain in the hip or groin. He has no discomfort with passive or active motion of the hip. He has 5 out of 5 hip flexion strength, hip extension strength, hip abduction strength, hip adduction strength. He has 5 out of 5 ankle plantarflexion and dorsiflexion strength. He is able to perform an active straight leg raise against gravity without difficulty. He is able to sense light touch in the heel, but is diminished in the toes. DP and PT pulses are 2+. Assessment and plan: 1. Left hip osteoarthritis - Continues to have no signs of infection about the left hip there is no evidence of septic arthritis. He tolerates active and passive motion well he is not having any significant hip pain with this. - May continue weightbearing as tolerated left lower extremity with assistive device. - I recommend that he continue working with physical therapy and Occupational Therapy - May continue with ice to the left hip as needed for pain or swelling - Recommend continued multimodal pain control. - He does have some erythema about the lower leg consistent with cellulitis however I do believe he also has chronic vascular changes in this area. He is currently on antibiotics per internal medicine. - May continue with motion of the left hip as tolerated -Recommend fall precautions, pressure ulcer precautions. - We will continue to remain signed off from further care of the patient as an inpatient. He may follow-up with me as an outpatient as scheduled 10/09/2025 at 0800. - Call or Afton text me for any acute changes or concerns. Date of Service September 26, 2025 Assessment & Plan (1) Osteoarthritis of left hip: Plan: 1. Left hip osteoarthritis - Continues to be no sign of a septic arthritis of his left hip. - conservative management for his pain with medications. - Recommend multimodal pain control, minimize narcotic use. - Would benefit from monitoring for signs or symptoms of infection given his history of drug use, poorly controlled diabetes, and lower extremity cellulitis. - May weight-bear as tolerated left lower extremity with assistive device I recommend use of a walker. - Recommend physical therapy and Occupational Therapy - Ice left hip - Does have erythema about the lower leg consistent with cellulitis, he is currently on Rocephin. Recommend this to be continued and managed per hospitalist. -Recommend monitoring for pressure ulcers, and preventative measures for this. - Currently no acute surgical intervention necessary. Will continue to monitor response to medication and pain control. - May do movement of his left hip as tolerated - Findings will be discussed with Dr. Campos. - Signed off, please call with questions and follow up as scheduled. 2. Other medical comorbidities: DM 2, HTN, A-fib, meth amphetamine use, HFpEF, weakness, cellulitis - Continue Rocephin for cellulitis per hospitalist - Poorly controlled diabetic, recommend diabetes education, would benefit from improved blood glucose control. Certainly is at risk for multiple complications from diabetes. - Management per hospitalist, will continue to monitor. Admission and Anticipated Discharge Date Admission Date: September 23, 2025 Subjective Patient is resting in bed. Denies any pain in his left hip. States he has been able to move his hip and get out of bed without significant discomfort in the hip today. Has not interrupted his sleep. Physical Exam Musculoskeletal: Physical exam of the left hip: Tolerates passive hip flexion to 100 degrees external rotation 45 degrees internal rotation 20 degrees without any pain in the hip or groin he has no discomfort with this. He has 5 out of 5 hip flexion strength hip extension strength hip adduction strength hip abduction strength. 5 out of 5 ankle plantarflexion and dorsiflexion strength. He is able to form a straight leg raise. He can sense light touch in the heel but not in the toes. DP and PT pulses are 2+ Results & Data Vital Signs (Past 12 Hours) Vital Signs Temp Pulse Resp BP Pulse Ox O2 Del Method 09/26/25 07:00 36.5 C 62 18 131/76 96 Room Air 09/25/25 23:47 36.8 C 66 16 138/73 92 Room Air Laboratory Results 09/26/25 09/26/25 09/25/25 Range/Units 07:29 05:37 20:33 WBC 9.24 (4.8-10.8) K/ul RBC 5.63 (4.70-6.10) M/uL Hgb 16.4 (14.0-18.0) g/dL Hct 48.7 (42.0-52.0) % MCV 86.5 (80.0-100.0) fL MCH 29.1 (25.0-34.0) pg MCHC 33.7 (32.0-36.0) g/dL RDW Std Deviation 42.2 (36.4-46.3) fL RDW Coeff of Marc 13.4 (11.5-14.5) % Plt Count 214 (130-400) K/uL MPV 9.8 (9.4-12.4) fL Sodium 139 (136-145) mmol/L Potassium 4.8 (3.5-5.1) mmol/L Chloride 106 (98-107) mmol/L Carbon Dioxide 28 (21-32) mmol/L Anion Gap 5 (3-11) BUN 28 H (6-23) mg/dl Creatinine 0.89 (0.6-1.4) mg/dl Est Cr Clr Drug Dosing 110.3 ml/min eGFR 96.29 BUN/Creatinine Ratio 31.5 H (10-20) Glucose 161 H (70-99(Fasting)) mg/dl POC Glucose 144 H 152 H (70-99) mg/dl Calcium 8.6 (8.6-10.3) mg/dl 09/25/25 09/25/25 Range/Units 16:47 11:43 WBC (4.8-10.8) K/ul RBC (4.70-6.10) M/uL Hgb (14.0-18.0) g/dL Hct (42.0-52.0) % MCV (80.0-100.0) fL MCH (25.0-34.0) pg MCHC (32.0-36.0) g/dL RDW Std Deviation (36.4-46.3) fL RDW Coeff of Marc (11.5-14.5) % Plt Count (130-400) K/uL MPV (9.4-12.4) fL Sodium (136-145) mmol/L Potassium (3.5-5.1) mmol/L Chloride (98-107) mmol/L Carbon Dioxide (21-32) mmol/L Anion Gap (3-11) BUN (6-23) mg/dl Creatinine (0.6-1.4) mg/dl Est Cr Clr Drug Dosing ml/min eGFR BUN/Creatinine Ratio (10-20) Glucose (70-99(Fasting)) mg/dl POC Glucose 115 H 132 H (70-99) mg/dl Calcium (8.6-10.3) mg/dl (1) Osteoarthritis of left hip Osteoarthritis type: primary Qualified Code(s): M16.12 - Unilateral primary osteoarthritis, left hip
[2025-09-26] MEDS: KETOROLAC TROMETHAMINE 15 MG/ML VIAL IV ONE (13:48)
--- NOTE | 2025-09-26 21:56 | Electrocardiogram Report ---
Test Reason : Blood Pressure : */* mmHG Vent. Rate : 64 BPM Atrial Rate : 64 BPM P-R Int : 196 ms QRS Dur : 90 ms QT Int : 436 ms P-R-T Axes : 70 83 159 degrees QTcB Int : 449 ms Normal sinus rhythm Nonspecific T wave abnormality Abnormal ECG When compared with ECG of 16-Sep-2025 08:39, Premature supraventricular complexes are no longer Present Vent. rate has decreased by 36 bpm Nonspecific T wave abnormality now evident in Lateral leads Confirmed by Iftikhar Burns ([id number] on 09/26/2025 9:55:51 PM Referred By: REFERRED SELF Confirmed By: Iftikhar Burns
[2025-09-27] MEDS: INSULIN HUMAN NPH SC SCH (17:17)
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
[2025-09-27 22:36] VITALS: RESP 18
[2025-09-28 08:03] VITALS: BP 139/86; PULSE 68; TEMP 97.3; O2SAT 94
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
== END 2025-09-28 12:30 | disposition home health service (06) | DRG 554 ==
LOC: ED 10:31 → SUATTDRO 14:21 → 3E 14:21 → INTOOBSV 14:21 → 3E 16:14